=== PATIENT | female | born 1945 | race Caucasian/White ===

== ENCOUNTER 2017-12-13 14:49 | Emergency (ER) | payer MEDICARE, OTHER, SELFPAY ==
[2017-12-13 14:50] VITALS: BP 137/95; PULSE 97; RESP 16; TEMP 36.3; O2SAT 96; BMI 20.1
--- NOTE | 2017-12-13 15:18 | CT_ITS ---
STUDY: CT ABDOMEN AND PELVIS WITHOUT CONTRAST REASON FOR EXAM: Female, 72 years old. Left flank pain and colostomy. RADIATION DOSAGE (If Supplied By Facility): CTDIvol = ( 9.16 ) mGy, DLP = ( 362.44 ) mGycm TECHNIQUE: Transaxial images were obtained from the dome of the diaphragm to the symphysis pubis without oral contrast, and without intravenous contrast. Sagittal and coronal images were reconstructed. Individualized dose optimization techniques were used for this CT. COMPARISON: September 18, 2017 FINDINGS: The visualized lung bases are unremarkable. The visualized portions of the heart are within normal limits. Normal liver. Normal gallbladder and extrahepatic biliary system. Normal spleen. Normal pancreas. Normal bilateral adrenal glands. Multiple punctate nonobstructing nephroliths bilaterally. Moderate left hydronephrosis demonstrating interval progression. 3 mm ureterolith at the ureterovesicular junction on the left. Normal visualized stomach. Normal small intestine. There appear to be a anastomotic sutures along the cecum. Appendix is not identified. There is a left lower quadrant colostomy. Normal abdominal aorta. Normal inferior vena cava. Normal retroperitoneum. Normal urinary bladder. Normal abdominal wall. Normal osseous structures. CT/Abdomen/Pelvis without Cont IMPRESSION: Moderate left hydronephrosis due to a 3 mm stone at the ureterovesicular junction. Bilateral punctate nonobstructing nephroliths. Postop changes as above. Electronically Signed: Akin Mobley MD at 16:38 EST , Service support ,
--- NOTE | 2017-12-13 15:29 | ED.DCSUM_ITS ---
- ER Visit Summary Date of Service: 12/13/17 Chief Complaint: [Hematuria] History of Present Illness: The patient is a 72 F presents with hematuria that started yesterday. Patient has not had a fever. Patient denies dysuria or frequency. Patient is not on any blood thinners. Patient describes some mild left flank pain. Patient states that she has history of multiple kidney stones. Patient denies any trauma. [] Physical Examination: [HEENT-PERRLA, EOMI. Cranial nerves II through XII grossly intact. TMs clear. Mucous membranes moist. No adenopathy. Cardiovascular-regular rate and rhythm without murmur or ectopy Lungs-clear to auscultation, chest wall stable without crepitus or subcu emphysema Abdomen-normoactive bowel sounds, soft, nontender, no rebound or rigidity, no peritoneal signs.. Patient has mild CVA tenderness on the left. Extremities-intact ?4, normal range of motion, normal pulses, atraumatic] Test Results: [CBC with differential and white count 10.7, hemoglobin 14.5, hematocrit 45, platelets 231. Chemistries unremarkable. Urinalysis showed greater than 100 RBCs, negative for nitrites, negative leuk leukocyte Estrace]. CT of the flank showed a left UVJ stone measuring 3 mm with moderate hydronephrosis and hydroureter Emergency Department Course and Treatment: [None] Treatment Plan: [Jhonathan with will be able to see the patient in the office tomorrow. Patient will be started on Flomax at his request.] Disposition: [Discharged home in stable condition. Patient advised to return if increased difficulty urinating, fever, worsening pain, or condition should worsen in any way.] Impression: [Hematuria Left urolithiasis ] This note was generated with [employer] dictation software. It may contain incorrect words, spelling, and punctuation that were not noted in review of the chart prior to signing ED Disposition - Plan for ED Patient: Chief Complaint: Complaint Referrals: Adis iMreles MD [Primary Care Provider] -
[2017-12-13 15:52] LABS: Bacteria 0 SEEN /hpf (None Seen); Mucous, Urine 0 SEEN /hpf (<or=2+); White Blood Cells 0 SEEN /hpf (0-5)
[2017-12-13 16:02] LABS: Color, Urine Red (Yellow); Glucose, Dipstick Normal (Normal); Ketone-Dipstick 15 mg/dl (Negative); Leukocyte Esterase-Dipstick Negative /ul (Negative); Nitrite-Dipstick Negative (Negative); Occult Blood-Urine 150 /ul (Negative); Protein-Dipstick 500 mg/dl (Negative); Urine Bilirubin Dipstick Negative (Negative); Urine Clarity Cloudy (Clear); Urine Urobilinogen Normal (Normal)
[2017-12-13 16:19] LABS: Absolute Lymphocyte Count 3.32 X10^3/ul (0.83-4.51); Absolute Neutrophil Count 6.5 X10^3/uL (2.0-7.7); Anion Gap 11 (5-15); BUN 16 mg/dL (7-18); BUN/Creat Ratio 11.9 RATIO (10-20); Basophil# 0.01 X10^3/uL; Basophil% 0.1 % (0-1); Calcium,Total 9.7 mg/dL (8.5-10.1); Chloride 103 mmol/L (98-107); Creatinine, Serum 1.34 mg/dL (0.55-1.02); EST Glomerular Filtration Rate 41 mL/min (>60); Eosinophil# 0.29 X10^3/uL; Eosinophils% 2.7 % (0-5); Est Glom Filt Rate - Afr Amer 50 mL/min (>60); Estimated Creatinine Clearance 29.89 ml/min; Glucose 89 mg/dL (74-106); Hematocrit 45.3 % (37-47); Hemoglobin 14.5 g/dl (12.0-15.0); Lymphocyte # 3.32 X10^3/ul (4.0); Lymphocyte % 31.1 % (19-41); Mean Corpuscular Hgb 29.3 pg (27.0-32.0); Mean Corpuscular Volume 91.5 fL (81-99); Mean Platelet Vol. 9.4 fl (6.2-12.0); Monocyte# 0.57 X10^3/uL; Monocyte% 5.3 % (0-10); Neutrophil # 6.47 X10^3/uL (2.7-7.7); Neutrophil % 60.6 % (47-70); Platelet Count 231 K/mm3 (150-450); Potassium 3.2 mmol/L (3.5-5.1); RBC Distribution Width CV 13.6 % (11.6-14.6); Red Blood Count 4.95 M/mm3 (4.2-5.4); Sodium Level 137 mmol/L (136-145); White Blood Count 10.7 K/mm3 (4.4-11.0)
[2017-12-13 16:26] LABS: Red Blood Cells-Urine > 100 SEEN /hpf (0-5); Squamous Epithelial Cells - UA 0-5 SEEN /hpf (5-10)
[2017-12-13 16:36] LABS: POSITIVE COUNT NO; POSITIVE DIFFERENTIAL NO; POSITIVE MORPHOLOGY NO
--- NOTE | 2017-12-13 16:49 | ED.DEP ---
ED Disposition - Plan for ED Patient: Chief Complaint: Complaint Instructions: ED Stone Renal W Colic, ED Hematuria Prescriptions: Tamsulosin HCl [Flomax] 0.4 mg PO DAILY #7 cap.er.24h Referrals: Adis Mireles MD [Primary Care Provider] - Edmundo Gray MD [STAFF PHYSICIAN] - 1 Day
[2017-12-13 17:19] VITALS: BP 122/73; PULSE 68; RESP 17; O2SAT 94
== END 2017-12-13 17:21 | disposition home or self-care (01) ==
PROVIDERS: Emergency Provider Emergency Medicine; Family Provider Internal Medicine; PCP Internal Medicine
DX: N13.2 Hydronephrosis with renal and ureteral calculous obstruction (principal); R31.9 Hematuria, unspecified; E03.9 Hypothyroidism, unspecified; Z72.0 Tobacco use; Z79.899 Other long term (current) drug therapy; Z87.442 Personal history of urinary calculi; Z85.048 Personal history of other malignant neoplasm of rectum, rectosigmoid junction, and anus
CPT/HCPCS: 74176; 80048; 81001; 85025; 87086; 87088; 99283

== ENCOUNTER 2018-01-25 11:56 | Inpatient (IN) | payer MEDICARE, OTHER, SELFPAY ==
[2018-01-25] VITALS (15 sets, daily range): BP systolic 101–125; BP diastolic 57–75; PULSE 70–100; RESP 15–22; TEMP 36.1–37.6; O2SAT 88–94; BMI 19.9
--- NOTE | 2018-01-25 12:40 | EKG12_ITS ---
Test Reason : SOB Blood Pressure : / mmHG Vent. Rate : 084 BPM Atrial Rate : 084 BPM P-R Int : 206 ms QRS Dur : 066 ms QT Int : 352 ms P-R-T Axes : 070 -47 065 degrees QTc Int : 415 ms Normal sinus rhythm Left axis deviation Abnormal ECG Confirmed by KATLYN TERRAZAS, BAO ([id number]), magazine editor DEN ANDERSEN ([id number]) on 01/26/2018 2:26:31 PM Referred By: ANMOL Confirmed By:BAO POTTS MD
--- NOTE | 2018-01-25 12:40 | RAD_ITS ---
STUDY: X-RAY CHEST REASON FOR EXAM: Female, 72 years old. Cough, increasing shortness of breath x 3-4 days. TECHNIQUE: PA and lateral views of the chest. COMPARISON: PA and lateral chest x-ray February 02, 2015. FINDINGS: There is hyperinflation of the lungs consistent with chronic obstructive lung disease (COPD). There is borderline prominence of the perihilar interstitial markings that could reflect a degree of acute versus chronic inflammatory change or, less likely, central pulmonary venous congestion. No acute consolidating infiltrate There is no demonstrated pleural abnormality. Normal size heart. Normal mediastinum and jayashree. Normal visualized pulmonary arteries. There is mild atherosclerotic calcification of the aortic arch and descending thoracic aorta. Normal visualized thoracic spine. Normal visualized ribs, clavicles, and shoulders. There is no demonstrated abnormality of the visualized soft tissue structures of the upper abdomen. RAD/Chest PA and Lateral IMPRESSION: Hyperexpanded, consistent with COPD. Question of minor perihilar interstitial inflammatory change, but no consolidating infiltrate or pulmonary edema. Electronically Signed: Yasmany Matson MD at 14:06 EDT , Service support ,
[2018-01-25] MEDS: Ipratropium/Albuterol Sulfate 3 ML AMPUL.NEB INHALATION ×2 (12:53→19:46)
[2018-01-25] MEDS: 0.9% Normal Saline 1,000 ML 999 ML IV (12:59)
[2018-01-25] MEDS: predniSONE 20 MG Tablet 60 MG PO (12:59)
[2018-01-25 13:13] LABS: Absolute Lymphocyte Count 1.79 X10^3/ul (0.83-4.51); Absolute Neutrophil Count 7.8 X10^3/uL (2.0-7.7); Basophil# 0.01 X10^3/uL; Basophil% 0.1 % (0-1); Eosinophil# 0.09 X10^3/uL; Eosinophils% 0.9 % (0-5); Hematocrit 42.3 % (37-47); Hemoglobin 13.4 g/dl (12.0-15.0); Lymphocyte # 1.79 X10^3/ul (4.0); Mean Corp Hgb Conc 31.7 g/gl (32-36); Mean Corpuscular Hgb 29.5 pg (27.0-32.0); Mean Corpuscular Volume 93.2 fL (81-99); Mean Platelet Vol. 9.2 fl (6.2-12.0); Monocyte# 0.86 X10^3/uL; Monocyte% 8.2 % (0-10); Neutrophil # 7.78 X10^3/uL (2.7-7.7); Neutrophil % 73.7 % (47-70); Platelet Count 189 K/mm3 (150-450); RBC Distribution Width CV 13.5 % (11.6-14.6); RBC Distribution Width SD 44.9 fl (35.1-43.9); Red Blood Count 4.54 M/mm3 (4.2-5.4); White Blood Count 10.5 K/mm3 (4.4-11.0)
[2018-01-25 13:15] LABS: POSITIVE COUNT NO; POSITIVE DIFFERENTIAL NO; POSITIVE MORPHOLOGY NO
[2018-01-25 13:29] LABS: Anion Gap 9 (5-15); BUN 13 mg/dL (7-18); BUN/Creat Ratio 12.7 RATIO (10-20); Calcium,Total 9.1 mg/dL (8.5-10.1); Chloride 104 mmol/L (98-107); Creatinine, Serum 1.02 mg/dL (0.55-1.02); EST Glomerular Filtration Rate 57 mL/min (>60); Est Glom Filt Rate - Afr Amer 68 mL/min (>60); Estimated Creatinine Clearance 38.91 ml/min; Glucose 96 mg/dL (74-106); Potassium 3.3 mmol/L (3.5-5.1); Sodium Level 138 mmol/L (136-145)
--- NOTE | 2018-01-25 15:00 | ED.VISSUMM ---
- ER Visit Summary Date of Service: 01/25/18 Chief Complaint: Cough and shortness of breath History of Present Illness: The patient is a [address] Mireles. She reports she has a cough began 3 days ago. Is productive clear sputum without blood. Reports that she has had severe shortness of breath. She increased with coughing. She reports that she ran out of her inhaler long time ago. She has had a fever to 100.6?. No chills, sore throat, chest pain, or other complaints. Physical Examination: Vitals: Stable. Afebrile. General: Well-nourished and well-developed. Head: Normocephalic atraumatic. Neck: Supple, no lymphadenopathy. No JVD. Nontender. Cardiovascular: Regular rate and rhythm. No murmurs. Respiratory: No respiratory distress. Moderate wheezing bilaterally with decreased air movement. Abdominal: Soft, nontender, nondistended, normal bowel sounds. No guarding, rebound, or peritoneal signs. Back: Nontender. Extremities: Nontender, no edema. Skin: Normal color, no rash. Neurologic: Alert and oriented ?3. Cranial nerves II through XII are intact. Normal strength and sensation. Psych: Normal affect. Test Results: Chest x-ray shows chronic changes and question minor perihilar interstitial inflammation. EKG is sinus at 84 with low voltage. However this is unchanged from 2015. CBC is marked for segment neutrophils 74 lymphs at 17. Chem-7 with potassium 3.3. Emergency Department Course and Treatment: History of albuterol Atrovent aerosols. She is given prednisone p.o. On repeat exam she is 88% on room air at rest. She is 85 with ambulation. Treatment Plan: The patient was discussed with Dr. Tenorio. She is given Zithromax IV. She will be admitted the hospital for further wish and treatment. Disposition: Admitted in improved condition. Impression: 1. COPD exacerbation. 2. Hypoxia. This note was generated with [employer] dictation software. It may contain incorrect words, spelling, and punctuation that were not noted in review of the chart prior to signing ED Disposition - Plan for ED Patient: Chief Complaint: Shortness of Breath Referrals: Adis Mireles MD [Primary Care Provider] -
--- NOTE | 2018-01-25 15:10 | NURSING ---
DR DIOP IN ER
--- NOTE | 2018-01-25 15:11 | NURSING ---
PCU ACUTE COPD EXAC PAINTSIL
--- NOTE | 2018-01-25 15:34 | PCM.HP.STD ---
<Dontae Mcgarry - Last Filed: 01/25/18 15:34> Problem List (1) COPD exacerbation Status: Acute (2) Hypothyroidism Status: Chronic (3) Anxiety Status: Chronic (4) Depression Status: Chronic (5) Nicotine abuse Status: Chronic (6) History of rectal cancer Status: Chronic History of Present Illness Date of Admission: 01/25/18 Chief Complaint: SOB The patient is a 72 year old F with a hx of COPD and nicotine abuse, as well as rectal CA in remission since 2011 s/p colectomy with colostomy, hypothyroidism, and anxiety/depression, who presented to the ER today for SOB. She has been feeling ill for four days which began with a cough. Today she was more SOB and presented to urgent care and was found to have pulse ox in the 80s and was given a breathing treatment and sent to the ER. She does have COPD which is treated by her PCP. She has not been compliant with home inhaler therapy and has not filled her script in a while and has never had PFTs. She also continues to smoke. Her grandson is sick with a URI and she also complains or a runny nose and right sided CP with coughing. Her SOB has improved with aerosol treatments and she is saturating well on 2 liters per minute o2 via NC. [] Past Medical History Past Medical History (Chronic Problems): Chronic Problems Hypothyroidism (Chronic) Anxiety (Chronic) Depression (Chronic) Nicotine abuse (Chronic) Chronic bronchitis (Chronic) Hydronephrosis, right (Chronic) History of rectal cancer (Chronic) Allergies ciprofloxacin [From Cipro] Allergy (Verified 01/25/18 12:00) Rash ciprofloxacin HCl [From Cipro] Allergy (Verified 01/25/18 12:00) Rash Penicillins Allergy (Verified 01/25/18 12:00) Hives codeine Adverse Reaction (Verified 01/25/18 12:00) Other makes her feel weird NSAIDS (Non-Steroidal Anti-Inflamma Adverse Reaction (Verified 01/25/18 12:00) Other kidney damage r/t long-term usage advised not to use MAGNESIUM CITRATE Adverse Reaction (Uncoded 01/25/18 12:00) Nausea Home Medications: Ambulatory Orders Medication Instructions Recorded Citalopram [Celexa] 40 mg PO DAILY 02/02/15 Levothyroxine [Synthroid] 75 mcg PO DAILY 02/02/15 Ergocalciferol [Vitamin D] 50,000 unit PO QODAY 06/02/15 Gabapentin [Neurontin] 100 mg PO BID 01/25/18 Surgical History: cholecystectomy, tonsillectomy, - - bowel resection, colostomy Psychiatric History: No pertinent psych hx TRAFFIC MAINTENANCE OFFICER History: No pertinent TRAFFIC MAINTENANCE OFFICER history Lives: Alone Smoking Status: Current every day smoker Tobacco Use: Cigarettes Alcohol: None Drugs: None - *Family History Paternal History Items: Heart Disease Maternal History Items: COPD, Heart Disease Sibling History Items: Diabetes Review of Systems Constitutional: Denies: Chills, Fever, Weight Change HEENT: Denies: Head Aches, Sinus Congestion, Sinus Drainage Cardiovascular: Denies: Chest Pain, Palpitations Respiratory: Reports: Cough, Shortness of Breath, Shortness of breath at rest, Wheezing. Denies: Sputum production Gastrointestinal: Denies: Abdominal Pain, Nausea, Vomiting Genitourinary: Denies: Dysuria Musculoskeletal: Denies: Joint Pain, Joint Tenderness Skin: Denies: Rash, Wounds Neurological: Denies: Numbness, Tingling, Focal weakness Psychiatric: Denies: Anxiety, Depression, Homicidal Ideations, Suicidal Ideations Hematologic/ Lymphatic: Denies: Easy Bruising, Easy Bleeding VTE Information - Inpt Only VTE Present on Admission: No VTE Mechan Device Prophylaxis: SCD's VTE Pharm Prophylaxis ordered?: Yes Patient Problems: Active and Suspected Problems COPD exacerbation (Acute) - Physical Exam General: Alert, Oriented x3, Cooperative HEENT: Atraumatic, PERRLA, EOMI, Normocephalic Neck: Supple, No JVD, Negative Carotid Bruits Lungs: Clear to auscultation, Normal air movement Cardiovascular: Regular rate, No murmurs Abdomen: Bowel Sounds Present, Soft, Non Tender Extremities: No edema, Capillary Refill Less than 3 Seconds Skin: No rashes, No breakdown Musculoskeletal: No Tenderness to Palpation of Joints or Extremities Neurological: Cranial nerves II-XII grossly intact Psych/Mental Status: Normal Affect, Appropriate Vital Signs Temp Pulse Resp BP Pulse Ox 98.6 F 89 15 116/73 92 01/25/18 11:57 01/25/18 15:02 01/25/18 15:02 01/25/18 15:02 01/25/18 15:02 Assessment/Plan Active and Suspected Problems COPD exacerbation (Acute) 1. Acute hypoxic respiratory insufficiency 2/2 acute COPD exacerbation - Pt with cough and SOB over last 4 days. Hypoxic in ER at 88%. Improved with 2 lpm o2. CXR neg, afebrile, no WBC elevation. Will provide solumedrol, azithromycin, aerosol thearpy, incentive spirometer. Check respiratory panel. 2. Hypothyroidism - continue synthroid 3. Hx Rectal CA in remission x 12 years - s/p colectomy and colostomy. 4. Nicotine abuse - patch 5. Hypokalemia - replete 6. Anxiety/Depression - continue home meds. DVT ppx: lovenox, SCDs DC planning: home when stable. This patient was seen by Dontae Mcgarry PA-C under the supervision of Doctor John Paul. <Rosaura Coker - Last Filed: 01/25/18 17:59> History of Present Illness The patient is a 72 year old F [] Past Medical History Allergies ciprofloxacin [From Cipro] Allergy (Verified 01/25/18 12:00) Rash ciprofloxacin HCl [From Cipro] Allergy (Verified 01/25/18 12:00) Rash Penicillins Allergy (Verified 01/25/18 12:00) Hives codeine Adverse Reaction (Verified 01/25/18 15:59) makes her feel weird makes her feel weird NSAIDS (Non-Steroidal Anti-Inflamma Adverse Reaction (Verified 01/25/18 15:59) kidney damage r/t long-term usage advised not to use kidney damage r/t long-term usage advised not to use MAGNESIUM CITRATE Adverse Reaction (Uncoded 01/25/18 12:00) Nausea - Physical Exam Vital Signs Temp Pulse Resp BP Pulse Ox 99.7 F H 82 20 H 112/72 94 01/25/18 15:56 01/25/18 16:55 01/25/18 15:56 01/25/18 15:57 01/25/18 15:56 Oxygen Flow Rate (L/min) 2 Oxygen Delivery Method Nasal Cannula Weight: 49.487 kg Body Mass Index (BMI) 19.9 Intake and Output for Last 24 Hours 01/23/18 01/24/18 01/25/18 23:59 23:59 23:59 Output Total 25 / 25 Balance -25 / -25 Assessment/Plan And was seen and examined with physician grants and contracts assistant Dontae Hudock. Patient has history of COPD but not on oxygen. Other sick contact being her grandson and started having shortness of breath ongoing for the past 4 days. Denies any fever or chills but has some mild sore throat and nasal congestion. Came in because she had some chest discomfort that goes all the way to the back as well as shortness of breath. Patient's vitals were significant for hypoxia of 88% on room air Chest x-ray was negative for any infiltrate. Clinical exam was negative for wheezes. Patient has had 2 previous treatments since being here. Will admit patient for acute COPD exacerbation, IV fluids, breathing treatment, IV steroids, IV antibiotics would reevaluate tomorrow Code Visit Inpatient E&M: 32099 Init Hosp L2
[2018-01-25] MEDS: Gabapentin 100 MG Capsule PO (17:03)
[2018-01-25] MEDS: 0.9% Normal Saline 1,000 ML 75 ML IV (17:04)
[2018-01-25] MEDS: guaiFENesin 1,200 MG Tablet 1200 MG PO (22:49)
[2018-01-26] VITALS (18 sets, daily range): BP systolic 96–113; BP diastolic 47–68; PULSE 64–112; RESP 16–21; TEMP 36–36.7; O2SAT 91–94
[2018-01-26] MEDS: 0.9% Normal Saline 1,000 ML 75 ML IV (03:53)
[2018-01-26 06:08] LABS: Hematocrit 36.5 % (37-47); Hemoglobin 11.7 g/dl (12.0-15.0); Mean Corp Hgb Conc 32.1 g/gl (32-36); Mean Corpuscular Hgb 29.8 pg (27.0-32.0); Mean Corpuscular Volume 93.1 fL (81-99); Mean Platelet Vol. 9.5 fl (6.2-12.0); Platelet Count 175 K/mm3 (150-450); RBC Distribution Width CV 13.2 % (11.6-14.6); Red Blood Count 3.92 M/mm3 (4.2-5.4); White Blood Count 8.1 K/mm3 (4.4-11.0)
[2018-01-26 06:11] LABS: Scan Indicated on CBC? Y/N NO
[2018-01-26] MEDS: Levothyroxine 75 MCG Tablet PO (06:13)
[2018-01-26 06:31] LABS: Anion Gap 7 (5-15); BUN 13 mg/dL (7-18); BUN/Creat Ratio 14.7 RATIO (10-20); Calcium,Total 8.3 mg/dL (8.5-10.1); Chloride 112 mmol/L (98-107); Creatinine, Serum 0.89 mg/dL (0.55-1.02); EST Glomerular Filtration Rate 67 mL/min (>60); Est Glom Filt Rate - Afr Amer 81 mL/min (>60); Estimated Creatinine Clearance 44.64 ml/min; Glucose 136 mg/dL (74-106); Magnesium 1.9 mg/dL (1.6-2.6); Potassium 4.6 mmol/L (3.5-5.1); Sodium Level 141 mmol/L (136-145)
[2018-01-26] MEDS: Gabapentin 100 MG Capsule PO ×2 (08:04→17:36)
--- NOTE | 2018-01-26 08:47 | RAD_ITS ---
STUDY: X-RAY CHEST REASON FOR EXAM: Female, 72 years old. Chest pain. TECHNIQUE: PA and lateral views of the chest. COMPARISON: PA and lateral chest x-ray on January 25, 2018. FINDINGS: There is hyperinflation of the lungs, although to a lesser degree than yesterday's exam, consistent with chronic obstructive lung disease (COPD). The perihilar markings are less prominent today. No acute infiltrate. There is no demonstrated pleural abnormality. Normal size heart. Normal mediastinum and jayashree. Normal visualized pulmonary arteries. There is stable atherosclerotic calcification of the aortic arch. Normal visualized thoracic spine. Normal visualized ribs, clavicles, and shoulders. There is no demonstrated abnormality of the visualized soft tissue structures of the upper abdomen. RAD/Chest PA and Lateral IMPRESSION: Hyperexpanded, consistent with COPD. No acute infiltrate or CHF. Electronically Signed: Yasmany Matson MD at 13:17 EDT , Service support ,
[2018-01-26] MEDS: Ipratropium/Albuterol Sulfate 3 ML AMPUL.NEB INHALATION ×2 (09:37→13:04)
[2018-01-26] MEDS: guaiFENesin 1,200 MG Tablet 1200 MG PO ×2 (10:00→21:55)
[2018-01-26] MEDS: Citalopram 40 MG TABLET PO (10:01)
[2018-01-26] MEDS: Enoxaparin 40 MG/0.4 ML Syringe SC (10:02)
--- NOTE | 2018-01-26 12:25 | PCM.PROGNOTE ---
<Dontae Mcgarry - Last Filed: 01/26/18 12:25> Patient Problems: Active and Suspected Problems COPD exacerbation (Acute) Subjective: The patient continues to be SOB at rest and with exertion. Her O2 requirement has increased since last night from 2 to 4 lpm. She does not use O2 at home. She denies nicotine withdrawal/cravings. She has no fever or chills. She does have a productive cough. - Physical Exam General: Alert, Oriented x3, Cooperative HEENT: Atraumatic, PERRLA, EOMI, Normocephalic Neck: Supple, No JVD, Negative Carotid Bruits Lungs: Clear to auscultation, Normal air movement, Wheezes - end expiratory at bases. Cardiovascular: Regular rate, No murmurs Abdomen: Bowel Sounds Present, Soft, Non Tender Extremities: No edema, Capillary Refill Less than 3 Seconds Skin: No rashes, No breakdown Musculoskeletal: No Tenderness to Palpation of Joints or Extremities Neurological: Cranial nerves II-XII grossly intact Psych/Mental Status: Normal Affect, Appropriate, Alert and oriented to time, place, person, mood and affect Vital Signs Temp Pulse Resp BP Pulse Ox 97.3 F L 89 20 H 104/57 L 94 01/26/18 07:59 01/26/18 11:07 01/26/18 09:37 01/26/18 07:59 01/26/18 07:59 Oxygen Flow Rate (L/min) 4 Oxygen Delivery Method Nasal Cannula Weight: 49.487 kg Body Mass Index (BMI) 19.9 Intake and Output for Last 24 Hours 01/24/18 01/25/18 01/26/18 23:59 23:59 23:59 Intake Total 400 / 400 715 / 715 Output Total 25 / 25 Balance 375 / 375 715 / 715 Microbiology Past 72 Hours 01/25/18 20:00 Respiratory Panel (PCR) - Final Mucosa - Nose Rhinovirus Laboratory Tests Past 24 Hrs 01/26/18 01/26/18 05:45 05:45 WBC 8.1 RBC 3.92 L Hgb 11.7 L Hct 36.5 L MCV 93.1 MCH 29.8 MCHC 32.1 RDW 13.2 RDW Differential 44.0 H Plt Count 175 MPV 9.5 Sodium 141 Potassium 4.6 Chloride 112 H Carbon Dioxide 22.0 Anion Gap 7 BUN 13 Creatinine 0.89 Estim Creat Clear Calc 44.64 Est GFR (MDRD) Af Amer 81 Est GFR (MDRD) Non-Af 67 BUN/Creatinine Ratio 14.7 Glucose 136 H Calcium 8.3 L Magnesium 1.9 Medical Necessity - Tobacco Use Smoking Status: Current every day smoker Tobacco Use: Cigarettes Assessment/Plan Active and Suspected Problems COPD exacerbation (Acute) 1. Acute hypoxic respiratory insufficiency 2/2 acute COPD exacerbation - increased oxygen demand overnight. Encourage out of bed and incentive spirometry. Continue aerosols and solumedrol. Respiratory panel pending. Repeat CXR today. 2. Hypothyroidism - continue synthroid 3. Hx Rectal CA in remission x 12 years - s/p colectomy and colostomy. 4. Nicotine abuse - patch 5. Hypokalemia - resolved. Mag normal. 6. Anxiety/Depression - continue home meds. DVT ppx: lovenox, SCDs DC planning: may need home O2. This patient was seen by Dontae Mcgarry PA-C under the supervision of Doctor John Paul. <Rosaura Coker - Last Filed: 01/26/18 18:07> - Physical Exam Vital Signs Temp Pulse Resp BP Pulse Ox 98.0 F 94 18 102/68 92 01/26/18 17:32 01/26/18 17:32 01/26/18 17:32 01/26/18 17:32 01/26/18 17:32 Oxygen Flow Rate (L/min) 2 Oxygen Delivery Method Nasal Cannula Weight: 49.487 kg Body Mass Index (BMI) 19.9 Intake and Output for Last 24 Hours 01/24/18 01/25/18 01/26/18 23:59 23:59 23:59 Intake Total 400 / 400 1801 / 1801 Output Total 25 / 25 Balance 375 / 375 1801 / 1801 Microbiology Past 72 Hours 01/25/18 20:00 Respiratory Panel (PCR) - Final Mucosa - Nose Rhinovirus Laboratory Tests Past 24 Hrs 01/26/18 01/26/18 05:45 05:45 WBC 8.1 RBC 3.92 L Hgb 11.7 L Hct 36.5 L MCV 93.1 MCH 29.8 MCHC 32.1 RDW 13.2 RDW Differential 44.0 H Plt Count 175 MPV 9.5 Sodium 141 Potassium 4.6 Chloride 112 H Carbon Dioxide 22.0 Anion Gap 7 BUN 13 Creatinine 0.89 Estim Creat Clear Calc 44.64 Est GFR (MDRD) Af Amer 81 Est GFR (MDRD) Non-Af 67 BUN/Creatinine Ratio 14.7 Glucose 136 H Calcium 8.3 L Magnesium 1.9 Assessment/Plan Patient was seen and examined with physician corporate law assistant, Dontae Mcgarry. I agree with his interval history, physical exam and assessment and plan. Patient remains hypoxic on 100% nonrebreather. Able to complete sentences with a mass on. Says she feels better. Will continue home on Tamiflu, azithromycin, Rocephin. Encourage use of incentive spirometer, wean off for SPO2 more than 94%. Code Visit Inpatient E&M: 67686 Subs Hosp L2
--- NOTE | 2018-01-26 13:24 | CASEMGMT ---
See [facility] Assessment Link. DC PLAN: return home. [facility] AL[facility] discussed options if Home O2 is recommended. Pt would need Home oxygen testing and she is agreeable for [facility]. Green sheet is on chart. Lynda ACE RN ACM
[2018-01-26] MEDS: 0.9% NaCl Peripheral Flush Adult/Peds IV (14:03)
[2018-01-26] MEDS: 0.9% Normal Saline 1,000 ML 50 ML IV (22:29)
[2018-01-27] VITALS (16 sets, daily range): BP systolic 104–132; BP diastolic 62–73; PULSE 65–89; RESP 16–18; TEMP 36.1–36.7; O2SAT 89–95
[2018-01-27] MEDS: Levothyroxine 75 MCG Tablet PO (05:55)
--- NOTE | 2018-01-27 08:43 | CT_ITS ---
STUDY: CT ABDOMEN AND PELVIS WITHOUT CONTRAST REASON FOR EXAM: Female, 72 years old. Bilateral flank pain RADIATION DOSAGE (If Supplied By Facility): CTDIvol = ( 6.15 ) mGy, DLP = ( 254.82 ) mGycm TECHNIQUE: Transaxial images were obtained from the dome of the diaphragm to the symphysis pubis without oral contrast, and without intravenous contrast. Sagittal and coronal images were reconstructed. Individualized dose optimization techniques were used for this CT. COMPARISON: December 13, 2017. FINDINGS: The visualized lung bases are unremarkable. The visualized portions of the heart are within normal limits. Normal liver. Nonvisualization of the gallbladder. No significant dilatation of the extrahepatic biliary system. Normal spleen. Normal pancreas. Normal bilateral adrenal glands. There are at least 10 nonobstructive stones up to 7 mm in the right kidney. There are 5-6 nonobstructive stones up to 4 mm in the left kidney. Normal visualized stomach. Normal small intestine. Fecal retention in the colon. The appendix is not visualized. Normal abdominal aorta. Normal inferior vena cava. Normal retroperitoneum. Normal urinary bladder. Stable presacral mesenteric thickening. There is a colostomy through the left anterior abdominal wall. Normal osseous structures. CT/Abdomen/Pelvis without Cont IMPRESSION: Nonobstructive calculi bilaterally of the kidneys. No hydronephrosis. Diffuse colonic fecal retention. Electronically Signed: Diogenes Astudillo DO at 15:07 EDT Tel [phone], Service support ,
--- NOTE | 2018-01-27 08:44 | PCM.PROGNOTE ---
<Dontae Mcgarry - Last Filed: 01/27/18 08:44> Patient Problems: Active and Suspected Problems COPD exacerbation (Acute) Subjective: Pt not feeling well this AM. She was up all night with multiple episodes of diarrhea. She also has some midepigastric discomfort and nausea without vomiting. She has BL flank pain this AM (Left > Right) and is worried she has a kidney stone. No dysuria, urgency, or frequency, no garcia hematuria. She follows Dr. Gray. She also does not feel her breathing has improved. She has tested + for rhinovirus, and has a sick grandson at home that she thinks she picked it up from. She is more wheezy this AM. Productive cough continues. No fever or chills. - Physical Exam General: Alert, Oriented x3, Cooperative HEENT: Atraumatic, PERRLA, EOMI, Normocephalic Neck: Supple, No JVD, Negative Carotid Bruits Lungs: Normal air movement, Wheezes Cardiovascular: Regular rate, No murmurs Abdomen: Bowel Sounds Present, Soft, Non Tender Extremities: No edema, Capillary Refill Less than 3 Seconds Skin: No rashes, No breakdown Musculoskeletal: No Tenderness to Palpation of Joints or Extremities Neurological: Cranial nerves II-XII grossly intact Psych/Mental Status: Normal Affect, Appropriate, Alert and oriented to time, place, person, mood and affect Vital Signs Temp Pulse Resp BP Pulse Ox 97.3 F L 67 18 104/67 92 01/27/18 02:30 01/27/18 07:00 01/27/18 02:30 01/27/18 02:30 01/27/18 07:30 Oxygen Flow Rate (L/min) 3 Oxygen Delivery Method Nasal Cannula Weight: 49.487 kg Body Mass Index (BMI) 19.9 Intake and Output for Last 24 Hours 01/25/18 01/26/18 01/27/18 23:59 23:59 23:59 Intake Total 400 / 400 2735 / 2735 1007 / 1007 Output Total 25 / 25 Balance 375 / 375 2735 / 2735 1007 / 1007 Microbiology Past 72 Hours 01/25/18 20:00 Respiratory Panel (PCR) - Final Mucosa - Nose Rhinovirus Medical Necessity - Tobacco Use Smoking Status: Current every day smoker Tobacco Use: Cigarettes Assessment/Plan Active and Suspected Problems COPD exacerbation (Acute) 1. Acute hypoxic respiratory insufficiency 2/2 acute COPD exacerbation -still requiring 3 liters O2 - no prior home O2. Azithromycin x 3 days. Solumedrol and duonebs. + Rhinovirus. Repeat CXR c/w COPD. Encourage incentive spirometry. 2. Diarrhea - with some abdominal discomfort, check stool for C diff. No hx C diff. 3. BL Flank pain L>R- CT abdomen. Hx multiple stones. Check UA. 4. Hypothyroidism - continue synthroid 5. Hx Rectal CA in remission x 12 years - s/p colectomy and colostomy. 6. Nicotine abuse - patch 7. Hypokalemia - resolved. Mag normal. 8. Anxiety/Depression - continue home meds. DVT ppx: lovenox, SCDs DC planning: may need home O2. This patient was seen by Dontae Mcgarry PA-C under the supervision of Doctor John Paul. <Rosaura Coker - Last Filed: 01/27/18 14:03> - Physical Exam Vital Signs Temp Pulse Resp BP Pulse Ox 97.0 F L 66 18 126/69 H 92 01/27/18 11:43 01/27/18 11:43 01/27/18 11:43 01/27/18 11:43 01/27/18 11:43 Oxygen Flow Rate (L/min) 2 Oxygen Delivery Method Nasal Cannula Weight: 49.487 kg Body Mass Index (BMI) 19.9 Intake and Output for Last 24 Hours 01/25/18 01/26/18 01/27/18 23:59 23:59 23:59 Intake Total 400 / 400 2735 / 2735 1423 / 1423 Output Total 25 / 25 Balance 375 / 375 2735 / 2735 1423 / 1423 Microbiology Past 72 Hours 01/27/18 08:41 C. difficile DNA Amplification - Final Stool 01/25/18 20:00 Respiratory Panel (PCR) - Final Mucosa - Nose Rhinovirus Laboratory Tests Past 24 Hrs 01/27/18 11:05 Urine Color Yellow Urine Clarity Clear Urine pH 6.0 Ur Specific [place] 1.015 Urine Protein 15 H Urine Glucose (UA) Normal Urine Ketones Negative Urine Occult Blood Negative Urine Nitrite Negative Urine Bilirubin Negative Urine Urobilinogen Normal Ur Leukocyte Esterase Negative Urine RBC 0 SEEN Urine WBC 0 SEEN Ur Squamous Epith Cells 0 SEEN Urine Bacteria 0 SEEN Urine Mucus 0 SEEN Assessment/Plan Patient was seen and examined, she feels unwell, was up the whole night with diarrhea, denied any fever or chills. Agree with MARK Grady's note above. Interval history and physical exam as well as assessment and plan as above. Had increased oxygen requirements, and worsening cough. Respiratory panel was positive for rhinovirus, remains in droplet isolation. Will continue on breathing treatments, wean off oxygen, check stool for enteric panel, c. diff. Code Visit Inpatient E&M: 57317 Subs Hosp L2
[2018-01-27] MEDS: Enoxaparin 40 MG/0.4 ML Syringe SC (11:36)
[2018-01-27] MEDS: guaiFENesin 1,200 MG Tablet 1200 MG PO ×2 (11:36→21:53)
[2018-01-27] MEDS: Gabapentin 100 MG Capsule PO ×2 (11:36→16:50)
[2018-01-27] MEDS: Citalopram 40 MG TABLET PO (11:39)
[2018-01-27] MEDS: Tamsulosin HCl 0.4 MG Capsule PO (11:39)
[2018-01-27 12:20] LABS: Bacteria 0 SEEN /hpf (None Seen); Mucous, Urine 0 SEEN /hpf (<or=2+); Red Blood Cells-Urine 0 SEEN /hpf (0-5); Squamous Epithelial Cells - UA 0 SEEN /hpf (5-10); White Blood Cells 0 SEEN /hpf (0-5)
[2018-01-27 12:25] LABS: Color, Urine Yellow (Yellow); Glucose, Dipstick Normal (Normal); Ketone-Dipstick Negative (Negative); Leukocyte Esterase-Dipstick Negative /ul (Negative); Nitrite-Dipstick Negative (Negative); Occult Blood-Urine Negative /ul (Negative); Protein-Dipstick 15 mg/dl (Negative); Specific Gravity, Urine 1.015 (1.002-1.030); Urine Bilirubin Dipstick Negative (Negative); Urine Clarity Clear (Clear); Urine Urobilinogen Normal (Normal)
[2018-01-27] MEDS: Ipratropium/Albuterol Sulfate 3 ML AMPUL.NEB INHALATION ×2 (14:44→19:04)
[2018-01-27] MEDS: 0.9% NaCl Peripheral Flush Adult/Peds IV (16:41)
[2018-01-28] VITALS (16 sets, daily range): BP systolic 114–126; BP diastolic 65–77; PULSE 58–92; RESP 16–20; TEMP 36.4–37.2; O2SAT 86–95
[2018-01-28] MEDS: Levothyroxine 75 MCG Tablet PO (06:15)
[2018-01-28 06:53] LABS: Anion Gap 11 (5-15); BUN 18 mg/dL (7-18); BUN/Creat Ratio 14.4 RATIO (10-20); Calcium,Total 8.8 mg/dL (8.5-10.1); Chloride 108 mmol/L (98-107); Creatinine, Serum 1.25 mg/dL (0.55-1.02); EST Glomerular Filtration Rate 45 mL/min (>60); Est Glom Filt Rate - Afr Amer 54 mL/min (>60); Estimated Creatinine Clearance 31.78 ml/min; Glucose 108 mg/dL (74-106); Potassium 3.7 mmol/L (3.5-5.1); Sodium Level 141 mmol/L (136-145)
[2018-01-28] MEDS: Citalopram 40 MG TABLET PO (08:55)
[2018-01-28] MEDS: Enoxaparin 40 MG/0.4 ML Syringe SC (08:55)
[2018-01-28] MEDS: guaiFENesin 1,200 MG Tablet 1200 MG PO ×2 (08:55→20:49)
[2018-01-28] MEDS: Tamsulosin HCl 0.4 MG Capsule PO (08:55)
[2018-01-28] MEDS: Gabapentin 100 MG Capsule PO ×2 (08:55→16:37)
[2018-01-28] MEDS: Ipratropium/Albuterol Sulfate 3 ML AMPUL.NEB INHALATION ×2 (11:45→19:15)
--- NOTE | 2018-01-28 15:28 | PCM.PROGNOTE ---
<Dontae Mcgarry - Last Filed: 01/28/18 15:28> Patient Problems: Active and Suspected Problems COPD exacerbation (Acute) Subjective: Pt was initially feeling much better today, however she ambulated in the san and became very dyspneic and needed to be put back on O2. Otherwise, no futher loose stools, no nausea or vomiting, no abdominal pain, less wheezy today, nonproductive cough. - Physical Exam General: Alert, Oriented x3, Cooperative HEENT: Atraumatic, PERRLA, EOMI, Normocephalic Neck: Supple, No JVD, Negative Carotid Bruits Lungs: Clear to auscultation, Normal air movement Cardiovascular: Regular rate, No murmurs Abdomen: Bowel Sounds Present, Soft, Non Tender Extremities: No edema, Capillary Refill Less than 3 Seconds Skin: No rashes, No breakdown Musculoskeletal: No Tenderness to Palpation of Joints or Extremities Neurological: Cranial nerves II-XII grossly intact Psych/Mental Status: Normal Affect, Appropriate, Alert and oriented to time, place, person, mood and affect Vital Signs Temp Pulse Resp BP Pulse Ox 97.5 F L 80 18 124/77 H 94 01/28/18 14:45 01/28/18 14:45 01/28/18 14:46 01/28/18 14:45 01/28/18 14:45 Oxygen Flow Rate (L/min) 2 Oxygen Delivery Method Nasal Cannula Weight: 49.487 kg Body Mass Index (BMI) 19.9 Intake and Output for Last 24 Hours 01/26/18 01/27/18 01/28/18 23:59 23:59 23:59 Intake Total 2735 / 2735 2205 / 2205 500 / 500 Output Total 100 / 100 Balance 2735 / 2735 2105 / 2105 500 / 500 Microbiology Past 72 Hours 01/27/18 08:40 Enteric Bacteriology - Final Stool 01/27/18 08:41 C. difficile DNA Amplification - Final Stool 01/25/18 20:00 Respiratory Panel (PCR) - Final Mucosa - Nose Rhinovirus Laboratory Tests Past 24 Hrs 01/28/18 06:06 Sodium 141 Potassium 3.7 Chloride 108 H Carbon Dioxide 22.0 Anion Gap 11 BUN 18 Creatinine 1.25 H Estim Creat Clear Calc 31.78 Est GFR (MDRD) Af Amer 54 L Est GFR (MDRD) Non-Af 45 L BUN/Creatinine Ratio 14.4 Glucose 108 H Calcium 8.8 Medical Necessity - Tobacco Use Smoking Status: Current every day smoker Tobacco Use: Cigarettes Assessment/Plan Active and Suspected Problems COPD exacerbation (Acute) 1. Acute hypoxic respiratory insufficiency 2/2 acute COPD exacerbation 2/2 Rhinovirus -continue current therapy. Plan to transition to PO prednisone and DC home tomorrow +/- O2. 2. Diarrhea - probiotic. stool studies neg. 3. BL Flank pain L>R- CT abdomen. Hx multiple stones. Check UA. 4. Hypothyroidism - continue synthroid 5. Hx Rectal CA in remission x 12 years - s/p colectomy and colostomy. 6. Nicotine abuse - patch 7. Hypokalemia - resolved. Mag normal. 8. Anxiety/Depression - continue home meds. DVT ppx: lovenox, SCDs DC planning: may need home O2. This patient was seen by Dontae Mcgarry PA-C under the supervision of Doctor John Paul. <Rosaura Coker - Last Filed: 01/28/18 16:42> - Physical Exam Vital Signs Temp Pulse Resp BP Pulse Ox 97.5 F L 70 18 124/77 H 94 01/28/18 14:45 01/28/18 15:15 01/28/18 14:46 01/28/18 14:45 01/28/18 14:45 Oxygen Flow Rate (L/min) 2 Oxygen Delivery Method Nasal Cannula Weight: 49.487 kg Body Mass Index (BMI) 19.9 Intake and Output for Last 24 Hours 01/26/18 01/27/18 01/28/18 23:59 23:59 23:59 Intake Total 2735 / 2735 2205 / 2205 500 / 500 Output Total 100 / 100 Balance 2735 / 2735 2105 / 2105 500 / 500 Microbiology Past 72 Hours 01/27/18 08:40 Enteric Bacteriology - Final Stool 01/27/18 08:41 C. difficile DNA Amplification - Final Stool 01/25/18 20:00 Respiratory Panel (PCR) - Final Mucosa - Nose Rhinovirus Laboratory Tests Past 24 Hrs 01/28/18 06:06 Sodium 141 Potassium 3.7 Chloride 108 H Carbon Dioxide 22.0 Anion Gap 11 BUN 18 Creatinine 1.25 H Estim Creat Clear Calc 31.78 Est GFR (MDRD) Af Amer 54 L Est GFR (MDRD) Non-Af 45 L BUN/Creatinine Ratio 14.4 Glucose 108 H Calcium 8.8 Assessment/Plan Patient was seen and examined, Agree with MARK Grady's note above. Interval history and physical exam as well as assessment and plan as above. Patient is much improved, off oxygen but dropped to 86% on room air, no wheezes heard. Patient qualified for oxygen but since she is not chronically on oxygen and this hypoxia is a first for her, will keep her one more night, continue breathing treatments, steroids, reassess for ambulatory oxygen tomorrow and discharge if improved. Code Visit Inpatient E&M: 25266 Subs Hosp L2
[2018-01-28] MEDS: Calcium Carbonate 500 MG Tablet PO (22:49)
[2018-01-29] VITALS (7 sets, daily range): BP systolic 122–137; BP diastolic 78–80; PULSE 58–74; RESP 12–18; TEMP 36.6–36.7; O2SAT 88–95
[2018-01-29] MEDS: Levothyroxine 75 MCG Tablet PO (06:06)
[2018-01-29] MEDS: 0.9% NaCl Peripheral Flush Adult/Peds IV (06:11)
[2018-01-29] MEDS: Calcium Carbonate 500 MG Tablet PO (07:26)
[2018-01-29] MEDS: Gabapentin 100 MG Capsule PO (08:08)
[2018-01-29] MEDS: Citalopram 40 MG TABLET PO (08:50)
[2018-01-29] MEDS: Tamsulosin HCl 0.4 MG Capsule PO (08:50)
[2018-01-29] MEDS: guaiFENesin 1,200 MG Tablet 1200 MG PO (08:50)
--- NOTE | 2018-01-29 09:11 | CASEMGMT ---
Patient is ambulatory both in the home and in the community. CHARLES MacielN, RN-BC, CCM
--- NOTE | 2018-01-29 09:19 | CASEMGMT ---
RICHARD ALBRIGHT reviewed patient's home oxygen qualification and noted patient did qualify for home oxygen and preferred DME oxygen provider is [facility]. RICHARD ALBRIGHT faxed and called referral to Maureen with [facility]. Per Maureen, a tank will be delivered to the patient's room this morning. Joshua Adams BSN, RN-BC, CCM
--- NOTE | 2018-01-29 10:55 | PCM.DC ---
- Discharge Diagnoses Current Active Problems: Current Active and Chronic Problems COPD exacerbation (Acute) Hypothyroidism (Chronic) Anxiety (Chronic) Depression (Chronic) Nicotine abuse (Chronic) You will use the following diet at home:: No restrictions Your food should be the consistency of: Regular Your liquids should be the consistency of: Regular/Thin Discharge Activity: Return to Normal Activity Allergies/Adverse Reactions: Allergies ciprofloxacin [From Cipro] Allergy (Verified 01/25/18 12:00) Rash ciprofloxacin HCl [From Cipro] Allergy (Verified 01/25/18 12:00) Rash Penicillins Allergy (Verified 01/25/18 12:00) Hives codeine Adverse Reaction (Verified 01/25/18 15:59) makes her feel weird makes her feel weird NSAIDS (Non-Steroidal Anti-Inflamma Adverse Reaction (Verified 01/25/18 15:59) kidney damage r/t long-term usage advised not to use kidney damage r/t long-term usage advised not to use MAGNESIUM CITRATE Adverse Reaction (Uncoded 01/25/18 12:00) Nausea Medications to take at Discharge Citalopram [Celexa] 40 mg PO DAILY 02/02/15 Levothyroxine [Synthroid] 75 mcg PO DAILY 02/02/15 Ergocalciferol [Vitamin D] 50,000 unit PO QODAY 06/02/15 Gabapentin [Neurontin] 100 mg PO BID 01/25/18 Albuterol IH (ProAir) [Proair Hfa] 1 puff INHALATION Q4H PRN PRN #1 inhaler 01/29/18 Prednisone 10 mg PO UD #30 tab 01/29/18 The following prescriptions were given: Albuterol IH (ProAir) [Proair Hfa] 1 puff INHALATION Q4H PRN PRN #1 inhaler PRN Reason: Sob &/Or Wheezing Prednisone 10 mg PO UD #30 tab Primary Care Physician: Adis Mireles MD [Primary Care Provider] - Please follow up with your Primary Care Physician in: 1 week Proposed Discharge Date: 01/29/18
--- NOTE | 2018-01-29 14:26 | PCM.DC.SUM ---
<Dontae Mcgarry - Last Filed: 01/29/18 14:26> Discharge Date and Diagnosis Date of Admission: 01/25/18 Date of Discharge: 01/29/18 - Primary Discharge Diagnosis Acute COPD exacerbation 2/2 Acute rhinovirus bronchitis Acute hypoxic respiratory failure Hypothyroidism Hx Rectal CA in remission x 12 years s/p colectomy and colostomy Nicotine abuse Anxiety and depression Hypokalemia - Secondary Discharge Diagnosis Chronic Problems Hypothyroidism (Chronic) Anxiety (Chronic) Depression (Chronic) Nicotine abuse (Chronic) Chronic bronchitis (Chronic) Hydronephrosis, right (Chronic) History of rectal cancer (Chronic) Hospital Course and Treatment Imaging Results: RAD/Chest PA and Lateral IMPRESSION: Hyperexpanded, consistent with COPD. Question of minor perihilar interstitial inflammatory change, but no consolidating infiltrate or pulmonary edema. RAD/Chest PA and Lateral IMPRESSION: Hyperexpanded, consistent with COPD. No acute infiltrate or CHF. CT/Abdomen/Pelvis without Cont IMPRESSION: Nonobstructive calculi bilaterally of the kidneys. No hydronephrosis. Diffuse colonic fecal retention. Operations: None Procedures: None Summary of Care Provided: Physical exam on day of discharge: General: Resting comfortably NAD Psych: A/Ox3 normal affect HEENT: PEARRLA AT NC Neck: Supple NT CV: RRR no m/t/r/g/h Resp: CTA Abd: [id number] Soft NT no guarding or rigidity Ext: DP2+= no edema Skin: W/D normal turgor Lymph/Heme: No active bleeding or adenopathy Neuro: CN2-12 intact Hospital course: The patient is a 72 year old F who presented to the emergency room with shortness of breath. She has a history of COPD and continues to smoke. She also has a history of colon cancer status post colectomy 12 years ago and colostomy. She is very wheezy but initially did not require oxygen supplementation. She was admitted and placed on steroids and aerosol treatments. Respiratory panel is ordered. Her breathing became worse overnight and she required oxygen up to 4 L and was felt to have acute hypoxic respiratory failure. Respiratory panel came back positive for rhinovirus. Repeat chest x-ray was done which neither demonstrated any infiltrate or CHF. She developed some diarrhea and bilateral flank pain. We check stool for C. difficile which was negative. A CAT scan of the abdomen was done which showed some stool and some nonobstructing stones in her kidneys. The symptoms improved with supportive care. She is able to be weaned off oxygen however on ambulation she still required oxygen as he desaturated into the 80s. We arrange for her to have home oxygen, she was placed on an albuterol inhaler and Symbicort for outpatient therapy, she is advised to follow-up with pulmonology and her PCP, she was discharged home in stable condition. This patient was seen by Dontae Mcgarry PA-C under the supervision of Doctor Kerr. [] Discharge Diet: No Restrictions Discharge Activity: Return to Normal Activity Home Medications: Medications to take at Discharge Citalopram [Celexa] 40 mg PO DAILY 02/02/15 Levothyroxine [Synthroid] 75 mcg PO DAILY 02/02/15 Ergocalciferol [Vitamin D] 50,000 unit PO QODAY 06/02/15 Gabapentin [Neurontin] 100 mg PO BID 01/25/18 Albuterol IH (ProAir) [Proair Hfa] 1 puff INHALATION Q4H PRN PRN #1 inhaler 01/29/18 Budesonide/Formoterol 160/4.5 [Symbicort 160/4.5 Mcg Inhaler (SP)] 2 puff INHALATION BID #1 inhaler 01/29/18 Prednisone 10 mg PO UD #30 tab 01/29/18 Following Prescrptions Were Given to Patient: Albuterol IH (ProAir) [Proair Hfa] 1 puff INHALATION Q4H PRN PRN #1 inhaler PRN Reason: Sob &/Or Wheezing Budesonide/Formoterol 160/4.5 [Symbicort 160/4.5 Mcg Inhaler (SP)] 2 puff INHALATION BID #1 inhaler Prednisone 10 mg PO UD #30 tab Primary Care Physician: Adis Mireles MD [Primary Care Provider] - Please follow up with your Primary Care Physician in: 1 week Please Follow Up With: Diane Pryor NP-C Please Follow Up With: Mayco Santos DO When: 2 weeks Disposition: Home Minutes spent on discharge:: 40 Patient Condition:: Stable Medical Necessity - Tobacco Use Smoking Status: Current every day smoker Tobacco Use: Cigarettes Meaningful Use Info Meaningful Use Diagnoses (Choose all that apply): None applicable <Willie Kerr - Last Filed: 01/29/18 18:14> Discharge Date and Diagnosis - Secondary Discharge Diagnosis Chronic Problems Hypothyroidism (Chronic) Anxiety (Chronic) Depression (Chronic) Nicotine abuse (Chronic) Chronic bronchitis (Chronic) Hydronephrosis, right (Chronic) History of rectal cancer (Chronic) Hospital Course and Treatment Summary of Care Provided: This patient was seen in conjunction with Dontae FLORES. I have independently interviewed and examined the patient and reviewed pertinent history, examination findings, laboratory and plan of management. I have reviewed the note and agree with the documented findings with the few additional points. In brief, patient is admitted for acute hypoxic respiratory failure secondary to COPD exacerbation; probably exacerbated by acute viral bronchitis due to rhinovirus. I have discussed my assessment with Dontae FLORES and orders have been reviewed. [] Total time spent, exact 32 minutes on discharge meds reconciliation, examination, review of imaging and blood test and discussion with the patient on follow-up instructions. Code Visit Inpatient E&M: 40782 Disch Hosp
--- NOTE | 2018-01-29 14:33 | DS.PCM_ITS ---
<Dontae Mcgarry - Last Filed: 01/29/18 14:26> Discharge Date and Diagnosis Date of Admission: 01/25/18 Date of Discharge: 01/29/18 - Primary Discharge Diagnosis Acute COPD exacerbation 2/2 Acute rhinovirus bronchitis Acute hypoxic respiratory failure Hypothyroidism Hx Rectal CA in remission x 12 years s/p colectomy and colostomy Nicotine abuse Anxiety and depression Hypokalemia - Secondary Discharge Diagnosis Chronic Problems Hypothyroidism (Chronic) Anxiety (Chronic) Depression (Chronic) Nicotine abuse (Chronic) Chronic bronchitis (Chronic) Hydronephrosis, right (Chronic) History of rectal cancer (Chronic) Hospital Course and Treatment Imaging Results: RAD/Chest PA and Lateral IMPRESSION: Hyperexpanded, consistent with COPD. Question of minor perihilar interstitial inflammatory change, but no consolidating infiltrate or pulmonary edema. RAD/Chest PA and Lateral IMPRESSION: Hyperexpanded, consistent with COPD. No acute infiltrate or CHF. CT/Abdomen/Pelvis without Cont IMPRESSION: Nonobstructive calculi bilaterally of the kidneys. No hydronephrosis. Diffuse colonic fecal retention. Operations: None Procedures: None Summary of Care Provided: Physical exam on day of discharge: General: Resting comfortably NAD Psych: A/Ox3 normal affect HEENT: PEARRLA AT NC Neck: Supple NT CV: RRR no m/t/r/g/h Resp: CTA Abd: [id number] Soft NT no guarding or rigidity Ext: DP2+= no edema Skin: W/D normal turgor Lymph/Heme: No active bleeding or adenopathy Neuro: CN2-12 intact Hospital course: The patient is a 72 year old F who presented to the emergency room with shortness of breath. She has a history of COPD and continues to smoke. She also has a history of colon cancer status post colectomy 12 years ago and colostomy. She is very wheezy but initially did not require oxygen supplementation. She was admitted and placed on steroids and aerosol treatments. Respiratory panel is ordered. Her breathing became worse overnight and she required oxygen up to 4 L and was felt to have acute hypoxic respiratory failure. Respiratory panel came back positive for rhinovirus. Repeat chest x-ray was done which neither demonstrated any infiltrate or CHF. She developed some diarrhea and bilateral flank pain. We check stool for C. difficile which was negative. A CAT scan of the abdomen was done which showed some stool and some nonobstructing stones in her kidneys. The symptoms improved with supportive care. She is able to be weaned off oxygen however on ambulation she still required oxygen as he desaturated into the 80s. We arrange for her to have home oxygen, she was placed on an albuterol inhaler and Symbicort for outpatient therapy, she is advised to follow-up with pulmonology and her PCP, she was discharged home in stable condition. This patient was seen by Dontae Mcgarry PA-C under the supervision of Doctor Kerr. [] Discharge Diet: No Restrictions Discharge Activity: Return to Normal Activity Home Medications: Medications to take at Discharge Citalopram [Celexa] 40 mg PO DAILY 02/02/15 Levothyroxine [Synthroid] 75 mcg PO DAILY 02/02/15 Ergocalciferol [Vitamin D] 50,000 unit PO QODAY 06/02/15 Gabapentin [Neurontin] 100 mg PO BID 01/25/18 Albuterol IH (ProAir) [Proair Hfa] 1 puff INHALATION Q4H PRN PRN #1 inhaler Budesonide/Formoterol 160/4.5 [Symbicort 160/4.5 Mcg Inhaler (SP)] 2 puff INHALATION BID #1 inhaler 01/29/18 Prednisone 10 mg PO UD #30 tab 01/29/18 Following Prescrptions Were Given to Patient: Albuterol IH (ProAir) [Proair Hfa] 1 puff INHALATION Q4H PRN PRN #1 inhaler PRN Reason: Sob &/Or Wheezing Budesonide/Formoterol 160/4.5 [Symbicort 160/4.5 Mcg Inhaler (SP)] 2 puff INHALATION BID #1 inhaler Prednisone 10 mg PO UD #30 tab Primary Care Physician: Adis Mireles MD [Primary Care Provider] - Please follow up with your Primary Care Physician in: 1 week Please Follow Up With: Diane Pryor NP-C Please Follow Up With: Mayco Santos DO When: 2 weeks Disposition: Home Minutes spent on discharge:: 40 Patient Condition:: Stable Medical Necessity - Tobacco Use Smoking Status: Current every day smoker Tobacco Use: Cigarettes Meaningful Use Info Meaningful Use Diagnoses (Choose all that apply): None applicable <Willie Kerr - Last Filed: 01/29/18 18:14> Discharge Date and Diagnosis - Secondary Discharge Diagnosis Chronic Problems Hypothyroidism (Chronic) Anxiety (Chronic) Depression (Chronic) Nicotine abuse (Chronic) Chronic bronchitis (Chronic) Hydronephrosis, right (Chronic) History of rectal cancer (Chronic) Hospital Course and Treatment Summary of Care Provided: This patient was seen in conjunction with Dontae FLORES. I have independently interviewed and examined the patient and reviewed pertinent history, examination findings, laboratory and plan of management. I have reviewed the note and agree with the documented findings with the few additional points. In brief, patient is admitted for acute hypoxic respiratory failure secondary to COPD exacerbation; probably exacerbated by acute viral bronchitis due to rhinovirus. I have discussed my assessment with Dontae FLORES and orders have been reviewed. [] Total time spent, exact 32 minutes on discharge meds reconciliation, examination , review of imaging and blood test and discussion with the patient on follow-up instructions. Code Visit Inpatient E&M: [id number] Disch Hosp
== END 2018-01-29 13:38 | disposition home or self-care (01) | DRG 190 ==
LOC: ED 13:36 → PCU 15:26
PROVIDERS: Physician Assistant; Admitting Provider Internal Medicine; Emergency Provider Emergency Medicine; Family Provider Internal Medicine; PCP Internal Medicine; Visit Provider Internal Medicine
DX: J44.0 Chronic obstructive pulmonary disease with (acute) lower respiratory infection (principal); J96.01 Acute respiratory failure with hypoxia; J20.6 Acute bronchitis due to rhinovirus; J44.1 Chronic obstructive pulmonary disease with (acute) exacerbation; E87.6 Hypokalemia; E03.9 Hypothyroidism, unspecified; F17.210 Nicotine dependence, cigarettes, uncomplicated; F41.9 Anxiety disorder, unspecified; F32.9 Major depressive disorder, single episode, unspecified; Z93.3 Colostomy status; Z90.49 Acquired absence of other specified parts of digestive tract; Z85.048 Personal history of other malignant neoplasm of rectum, rectosigmoid junction, and anus
CPT/HCPCS: 36415; 71046; 74150; 74176; 80048; 81001; 83735; 85025; 85027; 87493; 87506; 87633; 93005; 94640; 97802; 99283; 99406; J7030; A4216

== ENCOUNTER → 2018-02-01 09:08 | Outpatient (CLI) | payer MEDICARE, OTHER, SELFPAY ==
[2018-02-01 10:56] LABS: Anion Gap 9 (5-15); BUN 18 mg/dL (7-18); BUN/Creat Ratio 16.2 RATIO (10-20); Calcium,Total 8.4 mg/dL (8.5-10.1); Chloride 107 mmol/L (98-107); Creatinine, Serum 1.11 mg/dL (0.55-1.02); EST Glomerular Filtration Rate 51 mL/min (>60); Est Glom Filt Rate - Afr Amer 62 mL/min (>60); Glucose 94 mg/dL (74-106); Potassium 3.6 mmol/L (3.5-5.1); Sodium Level 140 mmol/L (136-145)
== END ==
PROVIDERS: Family Provider Internal Medicine; PCP Internal Medicine; Visit Provider Physician Assistant
DX: R79.89 Other specified abnormal findings of blood chemistry (principal)
CPT/HCPCS: 36415; 80048

== ENCOUNTER 2018-02-03 09:01 | Observation (INO) | payer MEDICARE, OTHER, SELFPAY ==
[2018-02-03] VITALS (14 sets, daily range): BP systolic 94–146; BP diastolic 66–90; PULSE 67–89; RESP 10–18; TEMP 36.2–36.8; O2SAT 95–97; BMI 19.0; BMI 19.6
--- NOTE | 2018-02-03 09:14 | CT_ITS ---
STUDY: CT BRAIN WITHOUT CONTRAST REASON FOR EXAM: Female, 72 years old. Confusion and trouble breathing RADIATION DOSAGE (If Supplied By Facility): CTDIvol = ( 44.99 ) mGy, DLP = ( 745.49 ) mGycm TECHNIQUE: Transaxial CT imaging of the brain was performed without administration of intravenous contrast material. Individualized dose optimization techniques were used for this CT. COMPARISON: None. FINDINGS: No evidence for shift of midline structures, mass effect or compression of ventricles noted. No acute intra or extra-axial hemorrhage is seen. No abnormal intracranial fluid collections identified. The basal cisterns are patent. Posterior fossa structures demonstrate no discrete mass. Scattered foci of of low-attenuation in the periventricular and subcortical white matter noted which are nonspecific in imaging appearance however likely related with chronic small vessel disease. Bilateral basal ganglia mineralization. Partial opacification of the right-sided mastoid air cells.. Mucosal thickening of the sphenoid sinus as well as the ethmoid vessels. IMPRESSION: No evidence for acute intracranial hemorrhage, mass effect or acute large territory infarcts. Chronic small vessel disease. Electronically Signed: Jovan Loya, at 11:01 EDT Tel , Service support , CT/Brain/Head without Contrast
--- NOTE | 2018-02-03 09:14 | EKG12_ITS ---
Test Reason : DYSRHYTHMIA Blood Pressure : / mmHG Vent. Rate : 061 BPM Atrial Rate : 061 BPM P-R Int : 182 ms QRS Dur : 074 ms QT Int : 402 ms P-R-T Axes : 078 038 076 degrees QTc Int : 404 ms Normal sinus rhythm Normal ECG Confirmed by KATLYN TERRAZAS, BAO ([id number]), map editor DEN ANDERSEN ([id number]) on 02/05/2018 1:45:07 PM Referred By: Dontae Mcgarry Confirmed By:BAO POTTS MD
[2018-02-03 09:55] LABS: Absolute Lymphocyte Count 1.77 X10^3/ul (0.83-4.51); Absolute Neutrophil Count 9.2 X10^3/uL (2.0-7.7); Basophil# 0.01 X10^3/uL; Basophil% 0.1 % (0-1); Eosinophil# 0.08 X10^3/uL; Eosinophils% 0.7 % (0-5); Hematocrit 45.1 % (37-47); Hemoglobin 14.2 g/dl (12.0-15.0); Lymphocyte # 1.77 X10^3/ul (4.0); Mean Corp Hgb Conc 31.5 g/gl (32-36); Mean Corpuscular Hgb 29.1 pg (27.0-32.0); Mean Corpuscular Volume 92.4 fL (81-99); Mean Platelet Vol. 8.3 fl (6.2-12.0); Monocyte# 0.67 X10^3/uL; Monocyte% 5.7 % (0-10); Neutrophil # 9.18 X10^3/uL (2.7-7.7); Neutrophil % 77.9 % (47-70); Platelet Count 232 K/mm3 (150-450); RBC Distribution Width CV 14.1 % (11.6-14.6); RBC Distribution Width SD 47.2 fl (35.1-43.9); Red Blood Count 4.88 M/mm3 (4.2-5.4); White Blood Count 11.8 K/mm3 (4.4-11.0)
[2018-02-03 09:58] LABS: POSITIVE COUNT NO; POSITIVE DIFFERENTIAL NO; POSITIVE MORPHOLOGY NO
[2018-02-03 10:01] LABS: Bedside Glucose 92 mg/dL (70-110)
[2018-02-03 10:06] LABS: Anion Gap 9 (5-15); BUN 19 mg/dL (7-18); BUN/Creat Ratio 16.8 RATIO (10-20); Calcium,Total 8.4 mg/dL (8.5-10.1); Chloride 108 mmol/L (98-107); Creatinine, Serum 1.13 mg/dL (0.55-1.02); EST Glomerular Filtration Rate 50 mL/min (>60); Est Glom Filt Rate - Afr Amer 61 mL/min (>60); Estimated Creatinine Clearance 33.51 ml/min; Glucose 85 mg/dL (74-106); Potassium 3.8 mmol/L (3.5-5.1); Sodium Level 141 mmol/L (136-145)
--- NOTE | 2018-02-03 10:33 | ED.RN ---
Addendum entered by Rosy Spring 02/03/18 10:49: ERROR, WRONG PT. Original Note: YAZMIN PEPE.
[2018-02-03 10:38] LABS: Bacteria 0 SEEN /hpf (None Seen); Mucous, Urine 0 SEEN /hpf (<or=2+); Squamous Epithelial Cells - UA 0 SEEN /hpf (5-10); White Blood Cells 0 SEEN /hpf (0-5)
--- NOTE | 2018-02-03 10:48 | ED.RN ---
Addendum entered by Rosy Spring 02/03/18 10:49: ERROR, WRONG PT. Original Note: IN THE BAG WITH MEDICATIONS, IS A GREEN CONTAINER WITH SOME KIND OF PILLS.
[2018-02-03 10:50] LABS: Color, Urine Yellow (Yellow); Glucose, Dipstick Normal (Normal); Ketone-Dipstick Negative (Negative); Leukocyte Esterase-Dipstick Negative /ul (Negative); Nitrite-Dipstick Negative (Negative); Occult Blood-Urine 150 /ul (Negative); Protein-Dipstick Negative (Negative); Specific Gravity, Urine 1.005 (1.002-1.030); Urine Bilirubin Dipstick Negative (Negative); Urine Clarity Clear (Clear); Urine Urobilinogen Normal (Normal); Urine pH 6.5 (5.0 - 8.0)
[2018-02-03 10:57] LABS: Red Blood Cells-Urine 0-5 SEEN /hpf (0-5)
--- NOTE | 2018-02-03 11:20 | ED.VISSUMM ---
- ER Visit Summary Date of Service: 02/03/18 Chief Complaint: Confusion History of Present Illness: The patient is a 72 F who states she woke this morning to make pickled eggs. She got out her recipe but felt very confused and had difficulty comprehending the instructions. She had no speech difficulty. There is no paresthesias or weakness. Patient still feels confused but not as severe. She states she had to think about how to spell her last name when asked to give me an example. Patient has a history of COPD with a recent hospital stay. She was recently started on oxygen. She was wearing her oxygen last night and this morning during this episode. Physical Examination: Vital signs are unremarkable. Patient sitting upright in bed no acute distress. Head neck examination is unremarkable. Heart is regular rate and rhythm. Lung sounds are clear. Abdomen is soft and nontender. Neuro exam is unremarkable for me with an NIH score of 0. Test Results: EKG is sinus at 61 with no sign of acute ischemia. CBC reveals a white count of 11.8 with 78% neutrophils. Chemistry studies reveal mild renal insufficiency with a creatinine 1.13. Urinalysis is unremarkable. Troponin is negative. CT head shows no acute change. There is chronic small vessel disease. Emergency Department Course and Treatment: Repeat evaluation patient is resting comfortably. She feels that her thought process is improving. Family member at bedside states that she still will stop mid sentence and think about what she wants to say every once in a while. At this time she will be admitted for TIA/stroke workup. Treatment Plan: [] Disposition: Admit Impression: TIA This note was generated with [employer] dictation software. It may contain incorrect words, spelling, and punctuation that were not noted in review of the chart prior to signing ED Disposition - Plan for ED Patient: Chief Complaint: Confusion Referrals: Adis Mireles MD [Primary Care Provider] -
[2018-02-03] MEDS: 0.9% Normal Saline 1,000 ML 15 ML IV (11:29)
--- NOTE | 2018-02-03 13:28 | PCM.HP.STD ---
Problem List (1) TIA (transient ischemic attack) Status: Acute (2) Filling defect on imaging study Status: Acute Comment: Filling defect in proximal right colon on CT abdomen (3) 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 calculus Status: Acute (4) Anxiety Status: Chronic (5) Chronic bronchitis Status: Chronic (6) Depression Status: Chronic (7) History of rectal cancer Status: Chronic (8) Hydronephrosis, right Status: Chronic (9) Hypothyroidism Status: Chronic (10) Nicotine abuse Status: Chronic (11) COPD (chronic obstructive pulmonary disease) Status: Chronic History of Present Illness Date of Admission: 02/03/18 Chief Complaint: Difficulty in comprehension. The patient is a 72 year old F with history of multiple comorbidities including COPD was just discharged on 01/29/2018 for COPD exacerbation secondary to acute rhinovirus bronchitis and was sent home on home oxygen came to ER today when she was having sudden onset of comprehension of recipe which she had made several times in the past. She did not had problem in motor part of the speech was having difficulty in understanding the written speech. As per the daughter, she seemed confused. She is not taking Ativan as mentioned in the home medication. She is also did not take oxycodone which she takes as needed for severe she denies any focal weakness or paresthesia. She has chronic weakness of right lower extremity secondary to neuropathy. In the ED, his workup was at baseline. EKG shows normal sinus rhythm with no significant change from previous EKG of January 25, 2018. UA was negative during previous admission. CT head does not show any acute change [] Past Medical History Past Medical History (Chronic Problems): Chronic Problems Hypothyroidism (Chronic) Anxiety (Chronic) Depression (Chronic) Nicotine abuse (Chronic) COPD (chronic obstructive pulmonary disease) (Chronic) Chronic bronchitis (Chronic) Hydronephrosis, right (Chronic) History of rectal cancer (Chronic) Allergies ciprofloxacin [From Cipro] Allergy (Verified 02/03/18 09:04) Rash ciprofloxacin HCl [From Cipro] Allergy (Verified 02/03/18 09:04) Rash Penicillins Allergy (Verified 02/03/18 09:04) Hives codeine Adverse Reaction (Verified 02/03/18 09:04) makes her feel weird makes her feel weird NSAIDS (Non-Steroidal Anti-Inflamma Adverse Reaction (Verified 02/03/18 09:04) kidney damage r/t long-term usage advised not to use kidney damage r/t long-term usage advised not to use MAGNESIUM CITRATE Adverse Reaction (Uncoded 02/03/18 09:04) Nausea Home Medications: Ambulatory Orders Medication Instructions Recorded Levothyroxine [Synthroid] 112 mcg PO DAILY 02/02/15 Gabapentin [Neurontin] 300 mg PO BID 01/25/18 Albuterol IH (ProAir) [Proair Hfa] 1 puff INHALATION Q4H PRN PRN #1 01/29/18 inhaler Budesonide/Formoterol 160/4.5 2 puff INHALATION BID #1 inhaler 01/29/18 [Symbicort 160/4.5 Mcg Inhaler (SP)] Prednisone 10 mg PO UD #30 tab 01/29/18 Citalopram 40 mg PO DAILY 02/03/18 Ergocalciferol [Vitamin D] 50,000 unit PO SUMOWE 02/03/18 Lorazepam [Ativan] 1 tab PO 4X/DAY PRN PRN 02/03/18 Oxycodone 1 tab PO TID 02/03/18 Surgical History: cholecystectomy, tonsillectomy, - - bowel resection, colostomy Psychiatric History: No pertinent psych hx LAMINATOR PREFORMS History: No pertinent LAMINATOR PREFORMS history Smoking Status: Former smoker - *Family History Maternal History Items: COPD, Heart Disease Sibling History Items: Diabetes Paternal History Items: Heart Disease Review of Systems Constitutional: Reports: Malaise HEENT: Denies: Head Aches, Sinus Congestion, Sinus Drainage Cardiovascular: Denies: Chest Pain, Palpitations Respiratory: Reports: Cough. Denies: Shortness of breath at rest, Sputum production Gastrointestinal: Denies: Abdominal Pain, Nausea, Vomiting Genitourinary: Denies: Dysuria Musculoskeletal: Denies: Joint Pain, Joint Tenderness Skin: Denies: Rash, Wounds Neurological: Denies: Focal weakness, Numbness, Tingling Psychiatric: Denies: Anxiety, Depression, Homicidal Ideations, Suicidal Ideations Hematologic/ Lymphatic: Denies: Easy Bruising, Easy Bleeding VTE Information - Inpt Only VTE Present on Admission: No VTE Mechan Device Prophylaxis: SCD's VTE Pharm Prophylaxis ordered?: Yes Patient Problems: Active and Suspected Problems TIA (transient ischemic attack) (Acute) - Physical Exam General: Alert, Oriented x3, Cooperative HEENT: Atraumatic, PERRLA, EOMI, Normocephalic Oral: Dry Mucosa Neck: Supple, No JVD, Negative Carotid Bruits Lungs: Diminished - Air entry diminished in bilateral lung bases but at baseline, Rhonchi Cardiovascular: Regular rate, Regular Rhythm, Normal S1, Normal S2, No murmurs Abdomen: Bowel Sounds Present, Soft, Non Tender, Non-Distended Extremities: No edema, Capillary Refill Less than 3 Seconds Skin: No rashes, No breakdown Musculoskeletal: Arthritic Changes, Muscle Wasting Neurological: Cranial nerves II-XII grossly intact, Neuro grossly intact, - - Chronic weakness of right lower extremity secondary to neuropathy Psych/Mental Status: Normal Affect, Appropriate Vital Signs Temp Pulse Resp BP Pulse Ox 98.0 F 67 16 127/79 H 97 02/03/18 09:02 02/03/18 11:35 02/03/18 11:35 02/03/18 11:35 02/03/18 11:35 Weight: 107 lb 9.369 oz Body Mass Index (BMI) 19.6 Assessment/Plan Active and Suspected Problems TIA (transient ischemic attack) (Acute) The patient is a 72 year old F with history of multiple comorbidities including COPD was just discharged on 01/29/2018 for COPD exacerbation secondary to acute rhinovirus bronchitis and was sent home on home oxygen came to ER today when she was having sudden onset of comprehension of recipe which she had made several times in the past. She did not had problem in motor part of the speech was having difficulty in understanding the written speech. As per the daughter, she seemed confused. She is not taking Ativan as mentioned in the home medication. She is also did not take oxycodone which she takes as needed for severe she denies any focal weakness or paresthesia. She has chronic weakness of right lower extremity secondary to neuropathy. In the ED, his workup was at baseline. EKG shows normal sinus rhythm with no significant change from previous EKG of January 25, 2018. UA was negative during previous admission. CT head does not show any acute change 1. Transient sensory aphasia possible TIA: Patient is being admitted on the PCU. On TIA protocol with PT OT and speech evaluation. Started on aspirin and statin. MRI brain and carotid Doppler ordered. If MRI positive of ischemic infarct will further order echo and CT angiogram of head and neck. In meantime will DO frequent neuro checks and maintain glucose and BP control as per his stroke protocol. Neuro consult. UA was negative on 01/16/18 2. COPD with acute hypoxic respiratory failure since previous admission: Patient breathing is getting better. On 2 L of home oxygen. Continue bronchodilator, prednisone and incentive spirometry. 3. Other chronic comorbidities include history of nonobstructive kidney stone, hypothyroidism, history of rectal carcinoma in remission for 12 years after colectomy and colostomy, nicotine use, anxiety and depression: Home medication reconciliation done. DVT prophylaxis: On heparin 5000 units subcutaneous twice daily and bilateral SCDs This note was generated with [employer] dictation software. Every effort was made to ensure accuracy, however computerized wool dyer mistakes may persist. Code Visit Inpatient E&M: 44547 Init Hosp L3
--- NOTE | 2018-02-03 13:46 | CDU_ITS ---
Reason For Study: TIA Rt. Velocities/BP Lt. Velocities/BP Prox CCA 69.2/20.5 cm/sec. Prox CCA 65.1/19.3 cm/sec. Mid CCA 56.9/18.8 cm/sec. Mid CCA 63.3/19.3 cm/sec. Dist CCA 56.3/18.2 cm/sec. Dist CCA 58.6/20.5 cm/sec. Prox ICA 53.9/18.2 cm/sec. Prox ICA 37.7/12.2 cm/sec. Mid ICA 65.1/26.4 cm/sec. Mid ICA 58.5/22.4 cm/sec. Dist ICA 67.4/22.9 cm/sec. Dist ICA 66.8/28.3 cm/sec. Rt. ICA/CCA = 1.2. Lt. ICA/CCA = 1.1. Prox ECA 72.1/15.2 cm/sec. Prox ECA 62.1/16.4 cm/sec. Rt. Vert. 65.7/19.3 cm/sec. Lt. Vert. 53.8/19.3 cm/sec. Right Extracranial There is intimal thickening but no significant atherosclerotic plaque noted in the right common carotid artery. There is intimal thickening but no significant atherosclerotic plaque noted in the right internal carotid artery. There is intimal thickening but no significant atherosclerotic plaque noted in the right external carotid artery. Antegrade flow is noted in the right vertebral artery. Left Extracranial There is intimal thickening but no significant atherosclerotic plaque noted in the left common carotid artery. There is intimal thickening but no significant atherosclerotic plaque noted in the left internal carotid artery. There is intimal thickening but no significant atherosclerotic plaque noted in the left external carotid artery. Antegrade flow is noted in the left vertebral artery. Procedure Carotid Duplex [id number]. The exam was diagnostic. Exam performed portable in patient room. Interpretation Summary No hemodynamically significant plague or stenosis bilateral extracranial internal carotids with <50% stenosis bilaterally. Normal flow bilateral external carotids. Patent and antegrade vertebrals bilaterally. Ordering Physician: Willie Kerr Performed By: Chino Bradley RVT
[2018-02-03 14:17] LABS: AST(SGOT) 15 U/L (15-37); Alanine Aminotransfer ALT/SGPT 28 U/L (13-56); Albumin, Serum 3.1 g/dL (3.2-5.0); Alkaline Phosphatase 71 U/L (45-117); Bilirubin, Direct 0.15 mg/dL (0.00-0.30); Globulin 3.2 g/dL (2.2-4.2); Protein, Total 6.3 g/dL (6.4-8.2); Thyroid Stim Hormone (TSH) 1.45 uIU/mL (0.358-3.74)
[2018-02-03] MEDS: Albuterol 2.5 MG/3 ML VIAL.NEB. INHALATION ×2 (14:56→18:39)
[2018-02-03 15:00] LABS: Amphetamine Urine VISTA NEGATIVE (<1000 ng/mL); Barbiturate Urine VISTA NEGATIVE (< 200 ng/mL); Benzodiazepine Urine VISTA NEGATIVE (< 200 ng/mL); Cocaine Urine VISTA NEGATIVE (< 300 ng/mL); Ecstacy Urine VISTA NEGATIVE (< 500 ng/mL); Methadone Urine VISTA NEGATIVE (< 300 ng/mL); PCP Urine VISTA NEGATIVE (< 25 ng/mL); THC Urine VISTA NEGATIVE (< 50 ng/mL)
[2018-02-03 15:03] LABS: Vista UDS pH Range 6
--- NOTE | 2018-02-03 15:31 | EKG12_ITS ---
Test Reason : CHEST TIGHTNESS Blood Pressure : / mmHG Vent. Rate : 067 BPM Atrial Rate : 067 BPM P-R Int : 178 ms QRS Dur : 076 ms QT Int : 422 ms P-R-T Axes : 059 008 071 degrees QTc Int : 445 ms Normal sinus rhythm Normal ECG When compared with ECG of 03-FEB-2018 09:27, MANUAL COMPARISON REQUIRED, DATA IS UNCONFIRMED Confirmed by KATLYN TERRAZAS, BAO ([id number]), editor map DEN ANDERSEN ([id number]) on 02/06/2018 1:39:23 PM Referred By: Dontae Mcgarry Confirmed By:BAO POTTS MD
--- NOTE | 2018-02-03 15:32 | ED.RN ---
Patient reports chest tightness. EKG ordered.
[2018-02-03] MEDS: Aspirin 81 MG TAB.CHEW PO (15:39)
[2018-02-03] MEDS: LORazepam 1 MG Tablet PO (15:56)
[2018-02-03] MEDS: Famotidine 20 MG Tablet PO (17:19)
[2018-02-03] MEDS: Gabapentin 300 MG Capsule PO (17:20)
[2018-02-03 17:26] LABS: Bedside Glucose 92 mg/dL (70-110)
--- NOTE | 2018-02-03 18:03 | NURSING ---
Spoke with pharmacist Anup per Dr. Kerr's request. Patient needs to be placed on Prednisone 30mg and order isn't going through. Per Anup, Pulmocort stopped and Prednisone may be ordered.
[2018-02-03] MEDS: 0.9% Normal Saline 1,000 ML 75 ML IV (22:08)
[2018-02-03 22:10] LABS: Bedside Glucose 93 mg/dL (70-110)
--- NOTE | 2018-02-03 22:57 | ECHOD_ITS ---
Reason For Study: TIA/CVA Procedure This was a 2D Doppler, Color Flow transthoracic echocardiogram. Exam performed portable in patient room. Left Ventricle Normal LV size. Left ventricular systolic function is normal. The estimated ejection fraction is 60 %. No evidence for diastolic dysfunction. No regional wall motion abnormalities noted. Right Ventricle Normal RV size. Normal systolic function. Atria Normal left atrium. Normal right atrium. Bubble contrast study negative for right to left interatrial shunt. Mitral Valve Normal mitral valve. Tricuspid Valve Normal tricuspid valve. Mild (1+) tricuspid valve insufficiency. Pulmonary artery systolic pressure is 26 mmHg. Aortic Valve Normal aortic valve. Trisinus/trileaflet aortic valve. Pulmonic Valve Normal pulmonic valve. Great Vessels Normal aortic root. The pulmonary artery is normal size. Normal inferior vena cava. Pericardium/Pleural No pericardial effusion. Medication Performed a rapid injection of agitated mix of 9 cc saline and 1cc air to assess for atrial septal defect. MMode/2D Measurements & Calculations LVIDd: 3.7 cm IVSd: 0.86 cm Ao root diam: 3.2 cm LVIDs: 2.7 cm LVPWd: 0.79 cm LA dimension: 3.3 cm RVDd: 3.1 cm FS: 27.9 % LAV(MOD-bp): 35.7 ml LAV(MOD-bp) Indexed: 24.4 ml/m2 LA A4 area: 13.3 cm2 RA A4 area: 11.2 cm2 LAV(MOD-sp2): 38.0 ml LAV(MOD-sp4): 29.3 ml Doppler Measurements & Calculations MV E max bev: 78.8 cm/sec Ao V2 max: 126.2 cm/sec LV V1 max: 110.4 cm/sec MV A max bev: 73.1 cm/sec Ao max P.4 mmHg LV V1 max P.9 mmHg MV E/A: 1.1 TR max bev: 232.2 cm/sec TR max P.6 mmHg Interpretation Summary Normal LV size. Left ventricular systolic function is normal. The estimated ejection fraction is 60 %. No evidence for diastolic dysfunction. Mild (1+) tricuspid valve insufficiency. Bubble contrast study negative for right to left interatrial shunt. Ordering Physician: Joaquim Gramajo Referring Physician: Adis Mireles M.D. Performed By: Iesha Christopher, KAMALA, RVT
[2018-02-04] VITALS (17 sets, daily range): BP systolic 102–125; BP diastolic 59–86; PULSE 69–93; RESP 16–18; TEMP 36.3–37.2; O2SAT 92–98; BMI 19.6
[2018-02-04] MEDS: Levothyroxine 112 MCG Tablet PO (04:57)
[2018-02-04] MEDS: Albuterol 2.5 MG/3 ML VIAL.NEB. INHALATION ×3 (06:50→18:48)
[2018-02-04 07:20] LABS: Bedside Glucose 94 mg/dL (70-110)
[2018-02-04 07:20] LABS: Bedside Glucose 62 mg/dL (70-110)
[2018-02-04 08:07] LABS: Cholesterol 166 mg/dL (200); High Density Lipoprotein 85 mg/dL; Triglycerides 109 mg/dL; Very Low Density Lipoprotein 22 mg/dL (5-40)
[2018-02-04] MEDS: predniSONE 20 MG Tablet 30 MG PO (09:55)
[2018-02-04] MEDS: predniSONE 10 MG Tablet 30 MG PO (09:55)
[2018-02-04] MEDS: Gabapentin 300 MG Capsule PO ×3 (09:55→16:27)
[2018-02-04] MEDS: Aspirin 81 MG TAB.CHEW PO (09:55)
[2018-02-04] MEDS: Famotidine 20 MG Tablet PO (09:55)
--- NOTE | 2018-02-04 10:01 | PCM.PN.HOSP ---
Patient Problems: Active and Suspected Problems TIA (transient ischemic attack) (Acute) Subjective: The patient did not had new symptoms related to TIA/stroke; no blurry vision dizziness or new weakness. Patient has chronic right lower extremity weakness which did not get worse. Objective: General: Alert, Oriented x3, Cooperative HEENT: Atraumatic, PERRLA, EOMI, Normocephalic Oral: Dry Mucosa Neck: Supple, No JVD, Negative Carotid Bruits Lungs: Diminished - Air entry improved in bilateral lung bases but at baseline,No Rhonchi/wheezes Cardiovascular: Regular rate, Regular Rhythm, Normal S1, Normal S2, No murmurs Abdomen: Bowel Sounds Present, Soft, Non Tender, Non-Distended Extremities: No edema, Capillary Refill Less than 3 Seconds Skin: No rashes, No breakdown Musculoskeletal: Arthritic Changes, Muscle Wasting Neurological: Cranial nerves II-XII grossly intact, Neuro grossly intact, - Chronic weakness of right lower extremity secondary to neuropathy Psych/Mental Status: Normal Affect, Appropriate Vitals/I&O's: Vital Signs Temp Pulse Resp BP Pulse Ox 98.3 F 85 16 104/76 95 02/04/18 08:00 02/04/18 08:00 02/04/18 08:00 02/04/18 08:00 02/04/18 08:00 Oxygen Flow Rate (L/min) 2 Oxygen Delivery Method Room Air Weight: 107 lb 9.369 oz Body Mass Index (BMI) 19.6 Intake and Output for Last 24 Hours 02/02/18 02/03/18 02/04/18 23:59 23:59 23:59 Intake Total 922 / 922 748 / 748 Balance 922 / 922 748 / 748 Laboratory Results 02/03/18 13:20: Total Bilirubin 0.50, Direct Bilirubin 0.15, AST 15, ALT 28, Alkaline Phosphatase 71, Troponin I < 0.02, Total Protein 6.3 L, Albumin 3.1 L, Globulin 3.2, TSH 1.45 02/03/18 13:50: Ammonia 16.0 02/03/18 17:18: POC Glucose 92 02/03/18 22:03: POC Glucose 93 02/04/18 05:35: Vitamin B12 Pending 02/04/18 05:35: Triglycerides 109, Cholesterol 166, LDL Cholesterol 59, VLDL Cholesterol 22, HDL Cholesterol 85, Folate 10.70 02/04/18 06:52: POC Glucose 62 L 02/04/18 07:15: POC Glucose 94 Current Medications Acetaminophen (Tylenol) 650 mg PO Q4H PRN PRN PRN Reason: Headache/Temp>99F Albuterol Sulfate (Ventolin Aerosols) 2.5 mg INHALATION Q4H PRN PRN PRN Reason: SOB &/OR WHEEZING Albuterol Sulfate (Ventolin Aerosols) 2.5 mg INHALATION Q6HWA.RT [facility] Last Admin: 02/04/18 06:50 Dose: 2.5 mg Aspirin (Aspirin, Baby) 81 mg PO DAILY@0800 [facility] Last Admin: 02/03/18 15:39 Dose: 81 mg Atorvastatin Calcium (Lipitor) 20 mg PO QHS PRIMO Famotidine (Pepcid) 20 mg PO DAILY [facility] Last Admin: 02/03/18 17:19 Dose: 20 mg Gabapentin (Neurontin) 300 mg PO TIDCM [facility] Last Admin: 02/03/18 17:20 Dose: 300 mg Sodium Chloride () 1,000 mls @ 75 mls/hr IV .[id number] [facility] Last Admin: 02/03/18 22:08 Dose: 75 mls/hr Levothyroxine Sodium (Synthroid) 112 mcg PO DAILY@0600 [facility] Last Admin: 02/04/18 04:57 Dose: 112 mcg Prednisone () 30 mg PO DAILY@0800 [facility] Promethazine HCl (Phenergan Tablet) 25 mg PO Q6H PRN PRN Reason: NAUSEA Sodium Chloride () 5 - 30 ml IV UD PRN PRN Reason: SALINE FLUSH Medical Necessity - Tobacco Use Smoking Status: Former smoker Assessment/Plan Active and Suspected Problems TIA (transient ischemic attack) (Acute) The patient is a 72 year old F with history of multiple comorbidities including COPD was just discharged on 01/29/2018 for COPD exacerbation secondary to acute rhinovirus bronchitis and was sent home on home oxygen came to ER today when she was having sudden onset of comprehension of recipe which she had made several times in the past. She did not had problem in motor part of the speech was having difficulty in understanding the written speech. As per the daughter, she seemed confused. She is not taking Ativan as mentioned in the home medication. She is also did not take oxycodone which she takes as needed for severe she denies any focal weakness or paresthesia. She has chronic weakness of right lower extremity secondary to neuropathy. In the ED, his workup was at baseline. EKG shows normal sinus rhythm with no significant change from previous EKG of January 25, 2018. UA was negative during previous admission. CT head does not show any acute change 1. Transient sensory aphasia possible TIA: Patient is being admitted on the PCU. On TIA protocol with PT OT and speech evaluation. Started on aspirin and statin. MRI brain, echo and carotid Doppler ordered. If MRI positive of ischemic infarct will further order CT angiogram of head and neck. Can discontinue checks. maintain glucose and BP control as per his stroke protocol. Neuro consult. UA was negative on 01/16/18 2. COPD with acute hypoxic respiratory failure since previous admission: Patient breathing is getting better. On 2 L of home oxygen. Continue bronchodilator, prednisone and incentive spirometry. 3. Other chronic comorbidities include history of nonobstructive kidney stone, hypothyroidism, history of rectal carcinoma in remission for 12 years after colectomy and colostomy, nicotine use, anxiety and depression: On Celexa home medication reconciliation done. DVT prophylaxis: On heparin 5000 units subcutaneous twice daily and bilateral SCDs This note was generated with [employer] dictation software. Every effort was made to ensure accuracy, however computerized painter barrel mistakes may persist. Code Visit Inpatient E&M: 84201 [facility] L3
--- NOTE | 2018-02-04 10:09 | PN_ITS ---
Patient Problems: Active and Suspected Problems TIA (transient ischemic attack) (Acute) Subjective: The patient did not had new symptoms related to TIA/stroke; no blurry vision dizziness or new weakness. Patient has chronic right lower extremity weakness which did not get worse. Objective: General: Alert, Oriented x3, Cooperative HEENT: Atraumatic, PERRLA, EOMI, Normocephalic Oral: Dry Mucosa Neck: Supple, No JVD, Negative Carotid Bruits Lungs: Diminished - Air entry improved in bilateral lung bases but at baseline, No Rhonchi/wheezes Cardiovascular: Regular rate, Regular Rhythm, Normal S1, Normal S2, No murmurs Abdomen: Bowel Sounds Present, Soft, Non Tender, Non-Distended Extremities: No edema, Capillary Refill Less than 3 Seconds Skin: No rashes, No breakdown Musculoskeletal: Arthritic Changes, Muscle Wasting Neurological: Cranial nerves II-XII grossly intact, Neuro grossly intact, - Chronic weakness of right lower extremity secondary to neuropathy Psych/Mental Status: Normal Affect, Appropriate Vitals/I&O's: Vital Signs Temp Pulse Resp BP Pulse Ox 98.3 F 85 16 104/76 95 02/04/18 08:00 02/04/18 08:00 02/04/18 08:00 02/04/18 08:00 02/04/18 08:00 Oxygen Flow Rate (L/min) 2 Oxygen Delivery Method Room Air Weight: 107 lb 9.369 oz Body Mass Index (BMI) 19.6 Intake and Output for Last 24 Hours 02/02/18 02/03/18 02/04/18 23:59 23:59 23:59 Intake Total 922 / 922 748 / 748 Balance 922 / 922 748 / 748 Laboratory Results 02/03/18 13:20: Total Bilirubin 0.50, Direct Bilirubin 0.15, AST 15, ALT 28, Alkaline Phosphatase 71, Troponin I < 0.02, Total Protein 6.3 L, Albumin 3.1 L, Globulin 3.2, TSH 1.45 02/03/18 13:50: Ammonia 16.0 02/03/18 17:18: POC Glucose 92 02/03/18 22:03: POC Glucose 93 02/04/18 05:35: Vitamin B12 Pending 02/04/18 05:35: Triglycerides 109, Cholesterol 166, LDL Cholesterol 59, VLDL Cholesterol 22, HDL Cholesterol 85, Folate 10.70 02/04/18 06:52: POC Glucose 62 L 02/04/18 07:15: POC Glucose 94 Current Medications Acetaminophen (Tylenol) 650 mg PO Q4H PRN PRN PRN Reason: Headache/Temp>99F Albuterol Sulfate (Ventolin Aerosols) 2.5 mg INHALATION Q4H PRN PRN PRN Reason: SOB &/OR WHEEZING Albuterol Sulfate (Ventolin Aerosols) 2.5 mg INHALATION Q6HWA.RT [facility] Last Admin: 02/04/18 06:50 Dose: 2.5 mg Aspirin (Aspirin, Baby) 81 mg PO DAILY@0800 [facility] Last Admin: 02/03/18 15:39 Dose: 81 mg Atorvastatin Calcium (Lipitor) 20 mg PO QHS [facility] Famotidine (Pepcid) 20 mg PO DAILY [facility] Last Admin: 02/03/18 17:19 Dose: 20 mg Gabapentin (Neurontin) 300 mg PO TIDCM [facility] Last Admin: 02/03/18 17:20 Dose: 300 mg Sodium Chloride () 1,000 mls @ 75 mls/hr IV .[id number] [facility] Last Admin: 02/03/18 22:08 Dose: 75 mls/hr Levothyroxine Sodium (Synthroid) 112 mcg PO DAILY@0600 [facility] Last Admin: 02/04/18 04:57 Dose: 112 mcg Prednisone () 30 mg PO DAILY@0800 [facility] Promethazine HCl (Phenergan Tablet) 25 mg PO Q6H PRN PRN Reason: NAUSEA Sodium Chloride () 5 - 30 ml IV UD PRN PRN Reason: SALINE FLUSH Medical Necessity - Tobacco Use Smoking Status: Former smoker Assessment/Plan Active and Suspected Problems TIA (transient ischemic attack) (Acute) The patient is a 72 year old F with history of multiple comorbidities including COPD was just discharged on 01/29/2018 for COPD exacerbation secondary to acute rhinovirus bronchitis and was sent home on home oxygen came to ER today when she was having sudden onset of comprehension of recipe which she had made several times in the past. She did not had problem in motor part of the speech was having difficulty in understanding the written speech. As per the daughter , she seemed confused. She is not taking Ativan as mentioned in the home medication. She is also did not take oxycodone which she takes as needed for severe she denies any focal weakness or paresthesia. She has chronic weakness of right lower extremity secondary to neuropathy. In the ED, his workup was at baseline. EKG shows normal sinus rhythm with no significant change from previous EKG of January 25, 2018. UA was negative during previous admission. CT head does not show any acute change 1. Transient sensory aphasia possible TIA: Patient is being admitted on the PCU. On TIA protocol with PT OT and speech evaluation. Started on aspirin and statin. MRI brain, echo and carotid Doppler ordered. If MRI positive of ischemic infarct will further order CT angiogram of head and neck. Can discontinue checks. maintain glucose and BP control as per his stroke protocol. Neuro consult. UA was negative on 01/16/18 2. COPD with acute hypoxic respiratory failure since previous admission: Patient breathing is getting better. On 2 L of home oxygen. Continue bronchodilator, prednisone and incentive spirometry. 3. Other chronic comorbidities include history of nonobstructive kidney stone, hypothyroidism, history of rectal carcinoma in remission for 12 years after colectomy and colostomy, nicotine use, anxiety and depression: On Celexa home medication reconciliation done. DVT prophylaxis: On heparin 5000 units subcutaneous twice daily and bilateral SCDs This note was generated with Recorded Future dictation software. Every effort was made to ensure accuracy, however computerized project consultant mistakes may persist. Code Visit Inpatient E&M: [id number] [facility] L3
[2018-02-04] MEDS: 0.9% Normal Saline 1,000 ML 75 ML IV ×2 (11:16→23:49)
--- NOTE | 2018-02-04 11:30 | PCM.CONS.GEN ---
Reason for Consult Date of Consultation: 02/04/18 Reason for Consultation: confusion History of Present Illness: The patient is a 72 year old F right handed white female admitted for transient confusion lasted 45min yesterday am first noted while she was trying to read a recipe which she was normally familiar with (pickled eggs). denies focal weakness, changes in vision, speech, or swallowing. no double vision. now feels normal. recently hospitalized, discharged about 6 days ago related to copd. no recent med changes. denies sob. admits to anxiety, as result however but not as a trigger of yesterdays events. quit smoking one week ago. per admit h&p:The patient is a 72 year old F with history of multiple comorbidities including COPD was just discharged on 01/29/2018 for COPD exacerbation secondary to acute rhinovirus bronchitis and was sent home on home oxygen came to ER today when she was having sudden onset of comprehension of recipe which she had made several times in the past. She did not had problem in motor part of the speech was having difficulty in understanding the written speech. As per the daughter, she seemed confused. She is not taking Ativan as mentioned in the home medication. She is also did not take oxycodone which she takes as needed for severe she denies any focal weakness or paresthesia. She has chronic weakness of right lower extremity secondary to neuropathy. In the ED, his workup was at baseline. EKG shows normal sinus rhythm with no significant change from previous EKG of January 25, 2018. UA was negative during previous admission. CT head does not show any acute change Past Medical History Past Medical History (Chronic Problems): Chronic Problems Hypothyroidism (Chronic) Anxiety (Chronic) Depression (Chronic) Nicotine abuse (Chronic) COPD (chronic obstructive pulmonary disease) (Chronic) Chronic bronchitis (Chronic) Hydronephrosis, right (Chronic) History of rectal cancer (Chronic) Allergies ciprofloxacin [From Cipro] Allergy (Verified 02/03/18 09:04) Rash ciprofloxacin HCl [From Cipro] Allergy (Verified 02/03/18 09:04) Rash Penicillins Allergy (Verified 02/03/18 09:04) Hives codeine Adverse Reaction (Verified 02/03/18 09:04) makes her feel weird makes her feel weird NSAIDS (Non-Steroidal Anti-Inflamma Adverse Reaction (Verified 02/03/18 09:04) kidney damage r/t long-term usage advised not to use kidney damage r/t long-term usage advised not to use MAGNESIUM CITRATE Adverse Reaction (Uncoded 02/03/18 09:04) Nausea Home Medications: Ambulatory Orders Medication Instructions Recorded Levothyroxine [Synthroid] 112 mcg PO DAILY 02/02/15 Gabapentin [Neurontin] 300 mg PO BID 01/25/18 Albuterol IH (ProAir) [Proair Hfa] 1 puff INHALATION Q4H PRN PRN #1 01/29/18 inhaler Budesonide/Formoterol 160/4.5 2 puff INHALATION BID #1 inhaler 01/29/18 [Symbicort 160/4.5 Mcg Inhaler (SP)] Prednisone 10 mg PO UD #30 tab 01/29/18 Citalopram 40 mg PO DAILY 02/03/18 Ergocalciferol [Vitamin D] 50,000 unit PO SUMOWE 02/03/18 Lorazepam [Ativan] 1 tab PO 4X/DAY PRN PRN 02/03/18 Oxycodone 1 tab PO TID 02/03/18 Surgical History: cholecystectomy, tonsillectomy, - - bowel resection, colostomy Psychiatric History: No pertinent psych hx MEDICAL ASSISTANT History: No pertinent MEDICAL ASSISTANT history Smoking Status: Former smoker - *Family History Maternal History Items: COPD, Heart Disease Sibling History Items: Diabetes Paternal History Items: Heart Disease Review of Systems Constitutional: Denies: Chills, Fever, Weight Change HEENT: Denies: Head Aches, Sinus Congestion, Sinus Drainage Cardiovascular: Denies: Chest Pain, Palpitations Respiratory: Denies: Cough, Shortness of breath at rest, Sputum production Gastrointestinal: Denies: Abdominal Pain, Nausea, Vomiting Genitourinary: Denies: Dysuria Musculoskeletal: Denies: Joint Pain, Joint Tenderness Skin: Denies: Rash, Wounds Neurological: Denies: Numbness, Tingling, Focal weakness Psychiatric: Denies: Anxiety, Depression, Homicidal Ideations, Suicidal Ideations Hematologic/ Lymphatic: Denies: Easy Bruising, Easy Bleeding Patient Problems: Active and Suspected Problems TIA (transient ischemic attack) (Acute) - Physical Exam General: Alert, Oriented x3, Cooperative HEENT: Atraumatic, PERRLA, EOMI, Normocephalic Neck: Supple, No JVD, Negative Carotid Bruits Lungs: Clear to auscultation, Normal air movement Cardiovascular: Regular rate, No murmurs Abdomen: Bowel Sounds Present, Soft, Non Tender Extremities: No edema, Capillary Refill Less than 3 Seconds Skin: No rashes, No breakdown Musculoskeletal: No Tenderness to Palpation of Joints or Extremities Neurological: Cranial nerves II-XII grossly intact Psych/Mental Status: Normal Affect, Appropriate Vital Signs Temp Pulse Resp BP Pulse Ox 36.8 C 85 16 104/76 95 02/04/18 08:00 02/04/18 08:00 02/04/18 08:00 02/04/18 08:00 02/04/18 08:00 Oxygen Flow Rate (L/min) 2 Oxygen Delivery Method Room Air Weight: 48.8 kg Body Mass Index (BMI) 19.6 Intake and Output for Last 24 Hours 02/02/18 02/03/18 02/04/18 23:59 23:59 23:59 Intake Total 922 / 922 1585 / 1585 Balance 922 / 922 1585 / 1585 Laboratory Tests Past 24 Hrs 02/03/18 02/03/18 02/04/18 13:20 13:50 05:35 Total Bilirubin 0.50 Direct Bilirubin 0.15 AST 15 ALT 28 Alkaline Phosphatase 71 Ammonia 16.0 Troponin I < 0.02 Total Protein 6.3 L Albumin 3.1 L Globulin 3.2 Triglycerides Cholesterol LDL Cholesterol VLDL Cholesterol HDL Cholesterol Vitamin B12 Pending Folate TSH 1.45 02/04/18 05:35 Total Bilirubin Direct Bilirubin AST ALT Alkaline Phosphatase Ammonia Troponin I Total Protein Albumin Globulin Triglycerides 109 Cholesterol 166 LDL Cholesterol 59 VLDL Cholesterol 22 HDL Cholesterol 85 Vitamin B12 Folate 10.70 TSH POC Glucose 02/04/18 02/04/18 02/03/18 07:15 06:52 22:03 POC Glucose 94 62 L 93 02/03/18 17:[address] reviewed, no acute Current Home Med List Medication Instructions Recorded Confirmed Type Levothyroxine [Synthroid] 112 mcg PO DAILY 02/02/15 02/03/18 History Gabapentin [Neurontin] 300 mg PO BID 01/25/18 02/03/18 History Albuterol IH (ProAir) [Proair Hfa] 1 puff INHALATION Q4H PRN PRN #1 01/29/18 02/03/18 Rx inhaler Budesonide/Formoterol 160/4.5 2 puff INHALATION BID #1 inhaler 01/29/18 02/03/18 Rx [Symbicort 160/4.5 Mcg Inhaler (SP)] Prednisone 10 mg PO UD #30 tab 01/29/18 02/03/18 Rx Citalopram 40 mg PO DAILY 02/03/18 02/03/18 History Ergocalciferol [Vitamin D] 50,000 unit PO SUMOWE 02/03/18 02/03/18 History Oxycodone 1 tab PO TID 02/03/18 02/03/18 History Current Medications Generic Name Dose Route Start Last Admin Trade Name Freq PRN Reason Stop Dose Admin Acetaminophen 650 mg 02/03/18 13:01 Tylenol PO Q4H PRN PRN Headache/Temp>99F Albuterol Sulfate 2.5 mg 02/03/18 13:01 Ventolin Aerosols INHALATION Q4H PRN PRN SOB &/OR WHEEZING Albuterol Sulfate 2.5 mg 02/04/18 10:30 Ventolin Aerosols INHALATION Q6HWA.RT [facility] Aspirin 81 mg 02/03/18 13:01 02/04/18 09:55 Aspirin, Baby PO 81 mg DAILY@0800 [facility] Administration Atorvastatin Calcium 20 mg 02/04/18 22:00 Lipitor PO QHS [facility] Budesonide 0.5 mg 02/04/18 10:30 Pulmicort Aerosol INHALATION Q12H.RT [facility] Citalopram Hydrobromide 40 mg 02/05/18 10:00 Celexa PO DAILY [facility] Famotidine 20 mg 02/03/18 16:00 02/04/18 09:55 Pepcid PO 20 mg DAILY [facility] Administration Gabapentin 300 mg 02/03/18 17:00 02/04/18 11:16 Neurontin PO 300 mg TIDCM [facility] Administration Sodium Chloride 1,000 mls @ 75 mls/hr 02/03/18 13:01 02/04/18 11:16 IV 75 mls/hr .[id number] [facility] Administration Levothyroxine Sodium 112 mcg 02/04/18 06:00 02/04/18 04:57 Synthroid PO 112 mcg DAILY@0600 [facility] Administration Prednisone 30 mg 02/05/18 08:00 PO 02/14/18 07:59 DAILY@0800 [facility] Taper Promethazine HCl 25 mg 02/03/18 13:01 Phenergan Tablet PO Q6H PRN NAUSEA Sodium Chloride 5 - 30 ml 02/03/18 14:13 IV UD PRN SALINE FLUSH Assessment/Plan Active and Suspected Problems TIA (transient ischemic attack) (Acute) anxiety vs tia vs migraine equivalent: resolved asa daily await mri pt/ot as needed
--- NOTE | 2018-02-04 11:38 | CON.PCM_ITS ---
Reason for Consult Date of Consultation: 02/04/18 Reason for Consultation: confusion History of Present Illness: The patient is a 72 year old F right handed white female admitted for transient confusion lasted 45min yesterday am first noted while she was trying to read a recipe which she was normally familiar with (pickled eggs). denies focal weakness, changes in vision, speech, or swallowing. no double vision. now feels normal. recently hospitalized, discharged about 6 days ago related to copd. no recent med changes. denies sob. admits to anxiety, as result however but not as a trigger of yesterdays events. quit smoking one week ago. per admit h&p:The patient is a 72 year old F with history of multiple comorbidities including COPD was just discharged on 01/29/2018 for COPD exacerbation secondary to acute rhinovirus bronchitis and was sent home on home oxygen came to ER today when she was having sudden onset of comprehension of recipe which she had made several times in the past. She did not had problem in motor part of the speech was having difficulty in understanding the written speech. As per the daughter, she seemed confused. She is not taking Ativan as mentioned in the home medication. She is also did not take oxycodone which she takes as needed for severe she denies any focal weakness or paresthesia. She has chronic weakness of right lower extremity secondary to neuropathy. In the ED, his workup was at baseline. EKG shows normal sinus rhythm with no significant change from previous EKG of January 25, 2018. UA was negative during previous admission. CT head does not show any acute change Past Medical History Past Medical History (Chronic Problems): Chronic Problems Hypothyroidism (Chronic) Anxiety (Chronic) Depression (Chronic) Nicotine abuse (Chronic) COPD (chronic obstructive pulmonary disease) (Chronic) Chronic bronchitis (Chronic) Hydronephrosis, right (Chronic) History of rectal cancer (Chronic) Allergies ciprofloxacin [From Cipro] Allergy (Verified 02/03/18 09:04) Rash ciprofloxacin HCl [From Cipro] Allergy (Verified 02/03/18 09:04) Rash Penicillins Allergy (Verified 02/03/18 09:04) Hives codeine Adverse Reaction (Verified 02/03/18 09:04) makes her feel weird makes her feel weird NSAIDS (Non-Steroidal Anti-Inflamma Adverse Reaction (Verified 02/03/18 09:04) kidney damage r/t long-term usage advised not to use kidney damage r/t long-term usage advised not to use MAGNESIUM CITRATE Adverse Reaction (Uncoded 02/03/18 09:04) Nausea Home Medications: Ambulatory Orders Medication Instructions Recorded Levothyroxine [Synthroid] 112 mcg PO DAILY 02/02/15 Gabapentin [Neurontin] 300 mg PO BID 01/25/18 Albuterol IH (ProAir) [Proair Hfa] 1 puff INHALATION Q4H PRN PRN #1 01/29/18 inhaler Budesonide/Formoterol 160/4.5 2 puff INHALATION BID #1 inhaler 01/29/18 [Symbicort 160/4.5 Mcg Inhaler (SP)] Prednisone 10 mg PO UD #30 tab 01/29/18 Citalopram 40 mg PO DAILY 02/03/18 Ergocalciferol [Vitamin D] 50,000 unit PO SUMOWE 02/03/18 Lorazepam [Ativan] 1 tab PO 4X/DAY PRN PRN 02/03/18 Oxycodone 1 tab PO TID 02/03/18 Surgical History: cholecystectomy, tonsillectomy, - - bowel resection, colostomy Psychiatric History: No pertinent psych hx FEED WEIGHER History: No pertinent FEED WEIGHER history Smoking Status: Former smoker - *Family History Maternal History Items: COPD, Heart Disease Sibling History Items: Diabetes Paternal History Items: Heart Disease Review of Systems Constitutional: Denies: Chills, Fever, Weight Change HEENT: Denies: Head Aches, Sinus Congestion, Sinus Drainage Cardiovascular: Denies: Chest Pain, Palpitations Respiratory: Denies: Cough, Shortness of breath at rest, Sputum production Gastrointestinal: Denies: Abdominal Pain, Nausea, Vomiting Genitourinary: Denies: Dysuria Musculoskeletal: Denies: Joint Pain, Joint Tenderness Skin: Denies: Rash, Wounds Neurological: Denies: Numbness, Tingling, Focal weakness Psychiatric: Denies: Anxiety, Depression, Homicidal Ideations, Suicidal Ideations Hematologic/ Lymphatic: Denies: Easy Bruising, Easy Bleeding Patient Problems: Active and Suspected Problems TIA (transient ischemic attack) (Acute) - Physical Exam General: Alert, Oriented x3, Cooperative HEENT: Atraumatic, PERRLA, EOMI, Normocephalic Neck: Supple, No JVD, Negative Carotid Bruits Lungs: Clear to auscultation, Normal air movement Cardiovascular: Regular rate, No murmurs Abdomen: Bowel Sounds Present, Soft, Non Tender Extremities: No edema, Capillary Refill Less than 3 Seconds Skin: No rashes, No breakdown Musculoskeletal: No Tenderness to Palpation of Joints or Extremities Neurological: Cranial nerves II-XII grossly intact Psych/Mental Status: Normal Affect, Appropriate Vital Signs Temp Pulse Resp BP Pulse Ox 36.8 C 85 16 104/76 95 02/04/18 08:00 02/04/18 08:00 02/04/18 08:00 02/04/18 08:00 02/04/18 08:00 Oxygen Flow Rate (L/min) 2 Oxygen Delivery Method Room Air Weight: 48.8 kg Body Mass Index (BMI) 19.6 Intake and Output for Last 24 Hours 02/02/18 02/03/18 02/04/18 23:59 23:59 23:59 Intake Total 922 / 922 1585 / 1585 Balance 922 / 922 1585 / 1585 Laboratory Tests Past 24 Hrs 02/03/18 02/03/18 02/04/18 13:20 13:50 05:35 Total Bilirubin 0.50 Direct Bilirubin 0.15 AST 15 ALT 28 Alkaline Phosphatase 71 Ammonia 16.0 Troponin I < 0.02 Total Protein 6.3 L Albumin 3.1 L Globulin 3.2 Triglycerides Cholesterol LDL Cholesterol VLDL Cholesterol HDL Cholesterol Vitamin B12 Pending Folate TSH 1.45 02/04/18 05:35 Total Bilirubin Direct Bilirubin AST ALT Alkaline Phosphatase Ammonia Troponin I Total Protein Albumin Globulin Triglycerides 109 Cholesterol 166 LDL Cholesterol 59 VLDL Cholesterol 22 HDL Cholesterol 85 Vitamin B12 Folate 10.70 TSH POC Glucose 02/04/18 02/04/18 02/03/18 07:15 06:52 22:03 POC Glucose 94 62 L 93 02/03/18 17:[address] reviewed, no acute Current Home Med List Medication Instructions Recorded Confirmed Type Levothyroxine [Synthroid] 112 mcg PO DAILY 02/02/15 02/03/18 History Gabapentin [Neurontin] 300 mg PO BID 01/25/18 02/03/18 History Albuterol IH (ProAir) [Proair Hfa] 1 puff INHALATION Q4H PRN PRN #1 01/29/18 Rx inhaler Budesonide/Formoterol 160/4.5 2 puff INHALATION BID #1 inhaler 01/29/18 Rx [Symbicort 160/4.5 Mcg Inhaler (SP)] Prednisone 10 mg PO UD #30 tab 01/29/18 02/03/18 Rx Citalopram 40 mg PO DAILY 02/03/18 02/03/18 History Ergocalciferol [Vitamin D] 50,000 unit PO SUMOWE 02/03/18 02/03/18 History Oxycodone 1 tab PO TID 02/03/18 02/03/18 History Current Medications Generic Name Dose Route Start Last Admin Trade Name Freq PRN Reason Stop Dose Admin Acetaminophen 650 mg 02/03/18 13:01 Tylenol PO Q4H PRN PRN Headache/Temp>99F Albuterol Sulfate 2.5 mg 02/03/18 13:01 Ventolin Aerosols INHALATION Q4H PRN PRN SOB &/OR WHEEZING Albuterol Sulfate 2.5 mg 02/04/18 10:30 Ventolin Aerosols INHALATION Q6HWA.RT [facility] Aspirin 81 mg 02/03/18 13:01 02/04/18 09:55 Aspirin, Baby PO 81 mg DAILY@0800 [facility] Administration Atorvastatin Calcium 20 mg 02/04/18 22:00 Lipitor PO QHS [facility] Budesonide 0.5 mg 02/04/18 10:30 Pulmicort Aerosol INHALATION Q12H.RT [facility] Citalopram Hydrobromide 40 mg 02/05/18 10:00 Celexa PO DAILY [facility] Famotidine 20 mg 02/03/18 16:00 02/04/18 09:55 Pepcid PO 20 mg DAILY [facility] Administration Gabapentin 300 mg 02/03/18 17:00 02/04/18 11:16 Neurontin PO 300 mg TIDCM [facility] Administration Sodium Chloride 1,000 mls @ 75 mls/hr 02/03/18 13:01 02/04/18 11:16 IV 75 mls/hr .[id number] [facility] Administration Levothyroxine Sodium 112 mcg 02/04/18 06:00 02/04/18 04:57 Synthroid PO 112 mcg DAILY@0600 [facility] Administration Prednisone 30 mg 02/05/18 08:00 PO 02/14/18 07:59 DAILY@0800 [facility] Taper Promethazine HCl 25 mg 02/03/18 13:01 Phenergan Tablet PO Q6H PRN NAUSEA Sodium Chloride 5 - 30 ml 02/03/18 14:13 IV UD PRN SALINE FLUSH Assessment/Plan Active and Suspected Problems TIA (transient ischemic attack) (Acute) anxiety vs tia vs migraine equivalent: resolved asa daily await mri pt/ot as needed
[2018-02-04 11:45] LABS: Bedside Glucose 106 mg/dL (70-110)
--- NOTE | 2018-02-04 14:45 | CASEMGMT ---
See attached sales technician home theater. Met face to face with patient earlier today. Denies anticipating any additional needs when discharged home. Dr. Sharp was consulted and saw patient today. Also sees a kidney doctor however she is not sure what his name is. States they assigned her a new one. Instructed that case management is available should any needs arise. Verb understanding. Horacio Vo, RICHARD, CCM.
[2018-02-04 17:05] LABS: Bedside Glucose 173 mg/dL (70-110)
[2018-02-04] MEDS: Budesonide Respules 0.5 MG/2 ML AMPUL.NEB. INHALATION (18:49)
[2018-02-04] MEDS: Atorvastatin Calcium 20 MG Tablet PO (21:41)
[2018-02-04 22:26] LABS: Bedside Glucose 202 mg/dL (70-110)
[2018-02-05] VITALS (8 sets, daily range): BP systolic 112–123; BP diastolic 63–70; PULSE 63–90; RESP 16–19; TEMP 36.7; O2SAT 94–100; BMI 19.6
[2018-02-05] MEDS: Levothyroxine 112 MCG Tablet PO (05:06)
[2018-02-05 06:23] LABS: Anion Gap 8 (5-15); BUN 12 mg/dL (7-18); BUN/Creat Ratio 12.7 RATIO (10-20); Calcium,Total 8.1 mg/dL (8.5-10.1); Chloride 109 mmol/L (98-107); Creatinine, Serum 0.95 mg/dL (0.55-1.02); EST Glomerular Filtration Rate 62 mL/min (>60); Est Glom Filt Rate - Afr Amer 75 mL/min (>60); Estimated Creatinine Clearance 41.24 ml/min; Glucose 76 mg/dL (74-106); Potassium 4.1 mmol/L (3.5-5.1); Sodium Level 140 mmol/L (136-145)
[2018-02-05] MEDS: Albuterol 2.5 MG/3 ML VIAL.NEB. INHALATION ×2 (06:45→13:11)
[2018-02-05] MEDS: Budesonide Respules 0.5 MG/2 ML AMPUL.NEB. INHALATION (06:45)
[2018-02-05 07:01] LABS: Bedside Glucose 77 mg/dL (70-110)
--- NOTE | 2018-02-05 07:39 | MRI_ITS ---
STUDY: MRI BRAIN WITHOUT CONTRAST REASON FOR EXAM: Female, 72 years old. Confusion. TECHNIQUE: Standardized multiplanar fat and water weighted pulse sequences were obtained. COMPARISON: None. FINDINGS: Normal size of the ventricles and extra-axial spaces for the patient's age. There are multiple white matter hyperintensities, distributed throughout the deep white matter tracts of the cerebral hemispheres, consistent with moderate chronic white matter ischemic changes. Normal bilateral basal ganglia. Normal thalami. There is no extra-axial fluid accumulation. Normal flow voids within the major intracranial circulation suggesting patency by spin echo criteria. Normal sella turcica, pituitary gland, infundibular stalk, optic chiasm and hypothalamus. Normal tectal plate and pineal gland. Normal midbrain, ro and medulla. Normal cerebellum. Normal basal cisterns. Normal bilateral temporal bones. Normal bilateral internal auditory canals. No demonstrated orbital abnormality, within the constraints of a routine brain study. Normal visualized paranasal sinuses. Normal calvarium and skull base. Normal visualized soft tissue structures. Normal visualized upper cervical spine. MRI/Brain without Contrast IMPRESSION: Involutional changes of the brain, as described above. Electronically Signed: Maggie Christensen MD at 9:52 EDT Tel , Service support ,
[2018-02-05] MEDS: Gabapentin 300 MG Capsule PO ×2 (07:48→12:41)
[2018-02-05] MEDS: Aspirin 81 MG TAB.CHEW PO (07:48)
[2018-02-05 09:00] LABS: Vitamin B12 273 pg/mL (211-911)
[2018-02-05] MEDS: predniSONE 20 MG Tablet 30 MG PO (09:34)
[2018-02-05] MEDS: Citalopram 40 MG TABLET PO (09:35)
[2018-02-05] MEDS: Famotidine 20 MG Tablet PO (09:35)
--- NOTE | 2018-02-05 10:07 | PCM.PN.NEU ---
Patient Problems: Active and Suspected Problems TIA (transient ischemic attack) (Acute) Subjective: no complaints, feels baseline - Physical Exam General: Alert HEENT: Atraumatic, PERRLA, EOMI, Normocephalic Neck: Supple, No JVD, Negative Carotid Bruits Lungs: Clear to auscultation, Normal air movement Cardiovascular: Regular rate, No murmurs Abdomen: Bowel Sounds Present, Soft, Non Tender Extremities: No edema, Capillary Refill Less than 3 Seconds Skin: No rashes, No breakdown Musculoskeletal: No Tenderness to Palpation of Joints or Extremities Neurological: Cranial nerves II-XII grossly intact Psych/Mental Status: Normal Affect, Appropriate Vital Signs Temp Pulse Resp BP Pulse Ox 36.7 C 90 18 122/63 H 94 02/05/18 07:45 02/05/18 07:45 02/05/18 07:45 02/05/18 07:45 02/05/18 07:45 Oxygen Flow Rate (L/min) 2 Oxygen Delivery Method Room Air Weight: 48.8 kg Body Mass Index (BMI) 19.6 Intake and Output for Last 24 Hours 02/03/18 02/04/18 02/05/18 23:59 23:59 23:59 Intake Total 922 / 922 2965 / 2965 788 / 788 Balance 922 / 922 2965 / 2965 788 / 788 Laboratory Tests Past 24 Hrs 02/04/18 02/05/18 05:35 05:25 Sodium 140 Potassium 4.1 Chloride 109 H Carbon Dioxide 23.0 Anion Gap 8 BUN 12 Creatinine 0.95 Estim Creat Clear Calc 41.24 Est GFR (MDRD) Af Amer 75 Est GFR (MDRD) Non-Af 62 BUN/Creatinine Ratio 12.7 Glucose 76 Calcium 8.1 L Vitamin B12 273 POC Glucose 02/05/18 02/04/18 02/04/18 06:55 21:39 16:32 POC Glucose 77 202 H 173 H 02/04/18 11:13 POC Glucose 106 mri reviewed, no acute, chronic mild subcortical white matter disease Current Medications Generic Name Dose Route Start Last Admin Trade Name Freq PRN Reason Stop Dose Admin Acetaminophen 650 mg 02/03/18 13:01 Tylenol PO Q4H PRN PRN Headache/Temp>99F Albuterol Sulfate 2.5 mg 02/03/18 13:01 Ventolin Aerosols INHALATION Q4H PRN PRN SOB &/OR WHEEZING Albuterol Sulfate 2.5 mg 02/04/18 10:30 02/05/18 06:45 Ventolin Aerosols INHALATION 2.5 mg Q6HWA.RT PRIMO Administration Aspirin 81 mg 02/03/18 13:01 02/05/18 07:48 Aspirin, Baby PO 81 mg DAILY@0800 PRIMO Administration Atorvastatin Calcium 20 mg 02/04/18 22:00 02/04/18 21:41 Lipitor PO 20 mg QHS PRIMO Administration Budesonide 0.5 mg 02/04/18 10:30 02/05/18 06:45 Pulmicort Aerosol INHALATION 0.5 mg Q12H.RT PRIMO Administration Citalopram Hydrobromide 40 mg 02/05/18 10:00 02/05/18 09:35 Celexa PO 40 mg DAILY PRIMO Administration Famotidine 20 mg 02/03/18 16:00 02/05/18 09:35 Pepcid PO 20 mg DAILY PRIMO Administration Gabapentin 300 mg 02/03/18 17:00 02/05/18 07:48 Neurontin PO 300 mg TIDCM PRIMO Administration Sodium Chloride 1,000 mls @ 75 mls/hr 02/03/18 13:01 02/04/18 23:49 IV 75 mls/hr .[id number] PRIMO Administration Levothyroxine Sodium 112 mcg 02/04/18 06:00 02/05/18 05:06 Synthroid PO 112 mcg DAILY@0600 PRIMO Administration Prednisone 30 mg 02/05/18 08:00 02/05/18 09:34 PO 02/14/18 07:59 30 mg DAILY@0800 PRIMO Administration Taper Promethazine HCl 25 mg 02/03/18 13:01 Phenergan Tablet PO Q6H PRN NAUSEA Sodium Chloride 5 - 30 ml 02/03/18 14:13 IV UD PRN SALINE FLUSH Medical Necessity - Tobacco Use Smoking Status: Former smoker Assessment/Plan Active and Suspected Problems TIA (transient ischemic attack) (Acute) anxiety vs tia vs migraine equivalent: resolved asa daily ok to dc if echo ok
--- NOTE | 2018-02-05 10:59 | CASEMGMT ---
This RN CM to bedside with POON form for pt at this time. POON form explained at this time, voices understanding and signs POON form at this time. Original to chart at this time and copy, along with copy of Medicare, 'Are you a Hospital Inpatient or Outpatient?' to pt at this time. Pt voices no further questions/concerns at this time. SStaten RN CM
--- NOTE | 2018-02-05 11:45 | PCM.DC ---
- Discharge Diagnoses Current Active Problems: Current Active and Chronic Problems TIA (transient ischemic attack) (Acute) COPD (chronic obstructive pulmonary disease) (Chronic) You will use the following diet at home:: Regular Discharge Activity: Return to Normal Activity Allergies/Adverse Reactions: Allergies ciprofloxacin [From Cipro] Allergy (Verified 02/03/18 09:04) Rash ciprofloxacin HCl [From Cipro] Allergy (Verified 02/03/18 09:04) Rash Penicillins Allergy (Verified 02/03/18 09:04) Hives codeine Adverse Reaction (Verified 02/03/18 09:04) makes her feel weird makes her feel weird NSAIDS (Non-Steroidal Anti-Inflamma Adverse Reaction (Verified 02/03/18 09:04) kidney damage r/t long-term usage advised not to use kidney damage r/t long-term usage advised not to use MAGNESIUM CITRATE Adverse Reaction (Uncoded 02/03/18 09:04) Nausea Medications to take at Discharge Levothyroxine [Synthroid] 112 mcg PO DAILY 02/02/15 Gabapentin [Neurontin] 300 mg PO BID 01/25/18 Albuterol IH (ProAir) [Proair Hfa] 1 puff INHALATION Q4H PRN PRN #1 inhaler 01/29/18 Budesonide/Formoterol 160/4.5 [Symbicort 160/4.5 Mcg Inhaler (SP)] 2 puff INHALATION BID #1 inhaler 01/29/18 Prednisone 10 mg PO UD #30 tab 01/29/18 Ergocalciferol [Vitamin D] 50,000 unit PO SUMOWE 02/03/18 Lorazepam [Ativan] 1 tab PO 4X/DAY PRN PRN 02/03/18 Oxycodone 1 tab PO TID 02/03/18 Aspirin [Aspirin, Baby] 81 mg PO DAILY@0800 tab.chew 02/05/18 Atorvastatin Calcium [Lipitor] 20 mg PO QHS tablet 02/05/18 Primary Care Physician: Adis Mireles MD [Primary Care Provider] - Proposed Discharge Date: 02/05/18
--- NOTE | 2018-02-05 11:46 | PCM.DC.SUM ---
Discharge Date and Diagnosis Date of Admission: 02/03/18 Date of Discharge: 02/05/18 - Primary Discharge Diagnosis Active and Suspected Problems TIA (transient ischemic attack) (Acute) - Secondary Discharge Diagnosis Chronic Problems Hypothyroidism (Chronic) Anxiety (Chronic) Depression (Chronic) Nicotine abuse (Chronic) COPD (chronic obstructive pulmonary disease) (Chronic) Chronic bronchitis (Chronic) Hydronephrosis, right (Chronic) History of rectal cancer (Chronic) Hospital Course and Treatment Imaging Results: 02/05/18 07:39 Brain without Contrast [MRI] Routine Summary of Care Provided: The patient is a 72 year old F with history of multiple comorbidities including COPD was just discharged on 01/29/2018 for COPD exacerbation secondary to acute rhinovirus bronchitis and was sent home on home oxygen came to ER today when she was having sudden onset of comprehension of recipe which she had made several times in the past. She did not had problem in motor part of the speech was having difficulty in understanding the written speech. CT scan of the brain done in the emergency room was nonacute. She was placed in the hospital for TIA workup. Allergies was consulted and MRI of the brain was nonacute. Echocardiogram and carotid Doppler ultrasound were also unremarkable. He was recommended aspirin 81 mg daily and Lipitor 20 mg daily. She was discharged home in a stable condition. Discharge Diet: No Restrictions Discharge Activity: Return to Normal Activity Home Medications: Medications to take at Discharge Levothyroxine [Synthroid] 112 mcg PO DAILY 02/02/15 Gabapentin [Neurontin] 300 mg PO BID 01/25/18 Albuterol IH (ProAir) [Proair Hfa] 1 puff INHALATION Q4H PRN PRN #1 inhaler 01/29/18 Budesonide/Formoterol 160/4.5 [Symbicort 160/4.5 Mcg Inhaler (SP)] 2 puff INHALATION BID #1 inhaler 01/29/18 Prednisone 10 mg PO UD #30 tab 01/29/18 Ergocalciferol [Vitamin D] 50,000 unit PO SUMOWE 02/03/18 Lorazepam [Ativan] 1 tab PO 4X/DAY PRN PRN 02/03/18 Oxycodone 1 tab PO TID 02/03/18 Aspirin [Aspirin, Baby] 81 mg PO DAILY@0800 tab.chew 02/05/18 Atorvastatin Calcium [Lipitor] 20 mg PO QHS tablet 02/05/18 Citalopram [Celexa] 40 mg PO DAILY tablet 02/05/18 Primary Care Physician: Adis Mireles MD [Primary Care Provider] - Medical Necessity - Tobacco Use Smoking Status: Former smoker Meaningful Use Info Meaningful Use Diagnoses (Choose all that apply): None applicable Code Visit Inpatient E&M: 84970 Disch Hosp
[2018-02-05 12:06] LABS: Bedside Glucose 88 mg/dL (70-110)
== END 2018-02-05 14:32 | disposition home or self-care (01) ==
LOC: ED 09:58 → PCU 12:22
PROVIDERS: Admitting Provider Internal Medicine; Emergency Provider Emergency Medicine; Family Provider Internal Medicine; PCP Internal Medicine; Visit Provider Internal Medicine
DX: G45.9 Transient cerebral ischemic attack, unspecified (principal); J44.9 Chronic obstructive pulmonary disease, unspecified; E03.9 Hypothyroidism, unspecified; F32.9 Major depressive disorder, single episode, unspecified; G62.9 Polyneuropathy, unspecified; J96.01 Acute respiratory failure with hypoxia; F41.9 Anxiety disorder, unspecified; Z99.81 Dependence on supplemental oxygen; Z85.048 Personal history of other malignant neoplasm of rectum, rectosigmoid junction, and anus; Z87.891 Personal history of nicotine dependence; Z79.51 Long term (current) use of inhaled steroids; Z79.899 Other long term (current) drug therapy; R47.89 Other speech disturbances
CPT/HCPCS: 36415; 70450; 70551; 80048; 80061; 80076; 80307; 81001; 82140; 82607; 82746; 82962; 84439; 84443; 84484; 85025; 92523; 93005; 93306; 93880; 94640; 96360; 96361; 97161; 97165; 97802; 99218; 99283; 99406; J7030; A4216; G0378; G8979; G8988; G8989

== ENCOUNTER → 2018-03-23 08:59 | Outpatient (CLI) | payer MEDICARE, OTHER, SELFPAY ==
[2018-03-23 09:29] VITALS: PULSE 74; PULSE 75; PULSE 82; PULSE 83; PULSE 86; PULSE 87; PULSE 88; O2SAT 93; O2SAT 94; O2SAT 95; O2SAT 96
--- NOTE | 2018-03-23 14:34 | WT_ITS ---
PSN 6 Minute Walk Test - 6 Minute Walk Test 6 Minute Walk Test: 6 Minute Walk Test PSN:6-Minute Walk Test Start: 03/23/18 09: 29 Freq: Status: Active Protocol: [id number] Document 03/23/18 09:29 RICHY (Rec: 03/23/18 09:31 RICHY [id number]) 6 Minute Walk Test Date Performed 03/23/18 Time Performed 09:00 Height 5 ft 2 in Weight: 50.802 kg Weight in Pounds 112.[address]: Mayco Santos Assistive device used: None Pre-test Oxygen Delivery Method Room Air Pulse Ox (%) 96 Pulse Rate (60-100 beats/min) 75 Dyspnea Annie Scale (0-10) 0.5 Exertion Annie Scale (6-20) 6 1st minute Oxygen Delivery Method Room Air Pulse Ox (%) 95 Pulse Rate (60-100 beats/min) 82 2nd minute Oxygen Delivery Method Room Air Pulse Ox (%) 94 Pulse Rate (60-100 beats/min) 83 3rd minute Oxygen Delivery Method Room Air Pulse Ox (%) 93 Pulse Rate (60-100 beats/min) 86 4th minute Oxygen Delivery Method Room Air Pulse Ox (%) 93 Pulse Rate (60-100 beats/min) 87 5th minute Oxygen Delivery Method Room Air Pulse Ox (%) 94 Pulse Rate (60-100 beats/min) 88 6th minute Oxygen Delivery Method Room Air Pulse Ox (%) 93 Pulse Rate (60-100 beats/min) 88 Dyspnea Annie Scale (0-10) 1 Exertion Annie Scale (6-20) 13 Post-test Oxygen Delivery Method Room Air Pulse Ox (%) 96 Pulse Rate (60-100 beats/min) 74 Full Laps Walked 13 Partial Lap, Number of Tiles Walked 16 Total Distance Walked (ft) 783 - Interpretation Interpretation: The patient was able to evaluate 783 feet over the course of 6 minutes on room air with no assistive devices or breaks. Patient did not experience any significant tachycardia or desaturation during testing. These findings are consistent with a musculoskeletal limitation exercise tolerance. - Recommendations Recommendations: No supplemental oxygen is indicated at this time.
== END ==
PROVIDERS: Family Provider Internal Medicine; PCP Internal Medicine; Visit Provider Internal Medicine Critical Care Medicine
DX: J44.9 Chronic obstructive pulmonary disease, unspecified (principal)
CPT/HCPCS: 94618

== ENCOUNTER → 2018-04-03 06:51 | Outpatient (CLI) | payer MEDICARE, OTHER, SELFPAY ==
--- NOTE | 2018-04-03 10:27 | PFTCOMP ---
COMPLETE PULMONARY FUNCTION TEST INTERPRETATION Brief HPI: Patient is a 72 year old female, currently under the care of Dr. Santos, who presents to [facility] for complete pulmonary function tests secondary to diagnosis of COPD. Respiratory therapist reports good effort and reproducible results. Interpretation: Forced expiration spirometry shows a moderate large airways obstructive ventilatory defect with an FEV1 of 68% predicted. There is a significant bronchodilator response in FEV1 by ATS criteria. Spirograms are of good quality and plateau slowly, indicating slowly emptying areas of the lungs. The respiratory flow volume loop shows decreased expiratory flow rates at all lung volumes consistent with airway obstruction. Lung volumes by body plethysmography show an elevated total lung capacity at 5.38 L, 122% predicted. FRC and RV are elevated out of proportion. Lung volume measurements are consistent with hyperinflation and air-trapping. Diffusion capacity by carbon monoxide is at the lower limit of normal at 53% predicted. The airway resistance is elevated. No previous pulmonary function tests were available for review. Impression: Partially reversible moderate large airways obstructive ventilatory defect with a symmetric reduction diffusing capacity consistent with a COPD/asthma overlap syndrome.
--- NOTE | 2018-04-03 10:30 | PFTCOMP_ITS ---
COMPLETE PULMONARY FUNCTION TEST INTERPRETATION Brief HPI: Patient is a 72 year old female, currently under the care of Dr. Santos , who presents to [facility] for complete pulmonary function tests secondary to diagnosis of COPD. Respiratory therapist reports good effort and reproducible results. Interpretation: Forced expiration spirometry shows a moderate large airways obstructive ventilatory defect with an FEV1 of 68% predicted. There is a significant bronchodilator response in FEV1 by ATS criteria. Spirograms are of good quality and plateau slowly, indicating slowly emptying areas of the lungs. The respiratory flow volume loop shows decreased expiratory flow rates at all lung volumes consistent with airway obstruction. Lung volumes by body plethysmography show an elevated total lung capacity at 5.38 L, 122% predicted. FRC and RV are elevated out of proportion. Lung volume measurements are consistent with hyperinflation and air-trapping. Diffusion capacity by carbon monoxide is at the lower limit of normal at 53% predicted. The airway resistance is elevated. No previous pulmonary function tests were available for review. Impression: Partially reversible moderate large airways obstructive ventilatory defect with a symmetric reduction diffusing capacity consistent with a COPD/asthma overlap syndrome.
== END ==
PROVIDERS: Family Provider Internal Medicine; PCP Internal Medicine; Visit Provider Internal Medicine Critical Care Medicine
DX: J44.9 Chronic obstructive pulmonary disease, unspecified (principal)
CPT/HCPCS: 94060; 94726; 94729

== ENCOUNTER → 2018-06-12 12:50 | Outpatient (CLI) | payer MEDICARE, OTHER, SELFPAY ==
[2018-06-12 14:21] LABS: Basophil# 0.01 X10^3/uL; Basophil% 0.1 % (0-1); Eosinophil# 0.27 X10^3/uL; Eosinophils% 2.9 % (0-5); Hemoglobin 14.2 g/dl (12.0-15.0); Lymphocyte % 35.8 % (19-41); Mean Corpuscular Hgb 29.9 pg (27.0-32.0); Mean Corpuscular Volume 90.5 fL (81-99); Mean Platelet Vol. 9.9 fl (6.2-12.0); Monocyte# 0.62 X10^3/uL; Monocyte% 6.7 % (0-10); Neutrophil # 5.01 X10^3/uL (2.7-7.7); Neutrophil % 54.4 % (47-70); Platelet Count 212 K/mm3 (150-450); RBC Distribution Width CV 13.6 % (11.6-14.6); RBC Distribution Width SD 45.1 fl (35.1-43.9); Red Blood Count 4.75 M/mm3 (4.2-5.4); White Blood Count 9.2 K/mm3 (4.4-11.0)
[2018-06-12 14:23] LABS: POSITIVE COUNT NO; POSITIVE DIFFERENTIAL NO; POSITIVE MORPHOLOGY NO
[2018-06-12 14:27] LABS: BUN 13 mg/dL (7-18); BUN/Creat Ratio 10.6 RATIO (10-20); Calcium,Total 9.1 mg/dL (8.5-10.1); Chloride 110 mmol/L (98-107); Creatinine, Serum 1.23 mg/dL (0.55-1.02); EST Glomerular Filtration Rate 46 mL/min (>60); Est Glom Filt Rate - Afr Amer 55 mL/min (>60); Glucose 86 mg/dL (74-106); Magnesium 1.8 mg/dL (1.6-2.6); Phosphorus 3.8 mg/dL (2.5-4.9); Potassium 3.5 mmol/L (3.5-5.1); Sodium Level 139 mmol/L (136-145)
[2018-06-12 14:37] LABS: Microalbumin,Random Urine 43.9 mg/L (NO RANGE EST.); Microalbumin:Creatinine Ratio 34.3 mg/g CRE (<30 mg/g CRE)
[2018-06-13 10:00] LABS: PTHIN 34.5 pg/mL (18.4-80.1)
== END ==
PROVIDERS: Family Provider Internal Medicine; PCP Internal Medicine; Visit Provider Internal Medicine Nephrology
DX: N18.3 Chronic kidney disease, stage 3 (moderate) (principal); D63.1 Anemia in chronic kidney disease
CPT/HCPCS: 36415; 80069; 82043; 82306; 82570; 83735; 83970; 85025

== ENCOUNTER 2019-04-23 22:10 | Inpatient (IN) | payer MEDICARE, OTHER, SELFPAY ==
[2018-11-28 12:49] VITALS: BMI 20.2
[2019-04-23 22:11] VITALS: BP 142/73; PULSE 69; RESP 16; TEMP 36.8; O2SAT 93; BMI 22.3
--- NOTE | 2019-04-23 22:22 | CT_ITS ---
STUDY: CT ABDOMEN AND PELVIS WITHOUT CONTRAST REASON FOR EXAM: Female, 73 years old. Right flank pain RADIATION DOSAGE (If Supplied By Facility): CTDIvol = ( 6.48 ) mGy, DLP = ( 297.66 ) mGycm TECHNIQUE: Transaxial images were obtained from the dome of the diaphragm to the symphysis pubis without oral contrast, and without intravenous contrast. Sagittal and coronal images were reconstructed. Individualized dose optimization techniques were used for this CT. COMPARISON: CT 01/27/2018 FINDINGS: The visualized lung bases are unremarkable. The visualized portions of the heart are within normal limits. There is a small subcentimeter pericardial effusion. Normal liver. Normal gallbladder and extrahepatic biliary system. Normal spleen. There is a 3.8 mm dilation of the proximal pancreatic duct. Normal bilateral adrenal glands. There is Moderate to severe right hydronephrosis. There is new 4 mm calculus in the distal right ureter at the ureterovesical junction. There is also new linear calculus in the distal right ureter measuring 5.6 mm in length by 2 mm in mediolateral diameter. There is 6 mm x 2.7 mm calculus distal left ureter. There is 6.3 x 3.4 mm additional calculus within the distal left ureter. There is a 2.7 x 2.5 mm additional calculus within the distal left ureter with moderate to severe right hydronephrosis and right hydroureter with moderate left hydronephrosis and hydroureter.. Normal visualized stomach. There are mild distended loops of small bowel without transition point. Normal colon. There is a left pelvic ostomy with peristomal hernia. There is surgical staple line in the pelvis. Normal abdominal aorta. Normal inferior vena cava. Normal retroperitoneum. Normal urinary bladder. Normal osseous structures. Stable postsurgical stranding within the presacral region CT/Abdomen/Pelvis without Cont IMPRESSION: Bilateral obstructing distal ureteral calculi as above Moderate to severe right hydronephrosis and moderate left hydronephrosis with bilateral hydroureters Mild dilatation of the proximal pancreatic duct which appears slightly more prominent when compared to prior exam, further evaluation with multiphase MRI and MRCP recommended New small subcentimeter pericardial effusion Mild distended loops of small bowel without transition point surgical marybeth in the pelvis, left pelvic ostomy with small parastomal hernia Electronically Signed: Brandyn Mccray, at 23:44 EDT Tel , Service support ,
[2019-04-23 22:42] LABS: Absolute Lymphocyte Count 3.12 X10^3/ul (0.83-4.51); Absolute Neutrophil Count 5.4 X10^3/uL (2.0-7.7); Basophil# 0.01 X10^3/uL; Basophil% 0.1 % (0-1); Eosinophil# 0.21 X10^3/uL; Eosinophils% 2.2 % (0-5); Hematocrit 42.6 % (37-47); Lymphocyte # 3.12 X10^3/ul (4.0); Lymphocyte % 32.8 % (19-41); Mean Corp Hgb Conc 32.9 g/gl (32-36); Mean Corpuscular Hgb 30.6 pg (27.0-32.0); Mean Platelet Vol. 8.5 fl (6.2-12.0); Monocyte# 0.72 X10^3/uL; Monocyte% 7.6 % (0-10); Neutrophil # 5.43 X10^3/uL (2.7-7.7); Neutrophil % 57.1 % (47-70); Platelet Count 206 K/mm3 (150-450); RBC Distribution Width CV 14.7 % (11.6-14.6); RBC Distribution Width SD 49.8 fl (35.1-43.9); Red Blood Count 4.58 M/mm3 (4.2-5.4); White Blood Count 9.5 K/mm3 (4.4-11.0)
[2019-04-23 22:43] LABS: POSITIVE COUNT NO; POSITIVE DIFFERENTIAL NO; POSITIVE MORPHOLOGY NO
--- NOTE | 2019-04-23 22:50 | ED.DCSUM_ITS ---
History of Present Illness Chief Complaint: Flank Pain Informant: Patient Onset: Days - 2 Narrative: Progressive right flank pain for 2 days. Nausea without vomiting. States today had mild left flank pain however that resolved. States that hematuria 2 days ago. History of multiple kidney stones in the past she states her last intervention with a stent was with Dr. Yap before he retired. Currently seen by Dr. Gray. No fevers. No dysuria. Reports pain is a 9. History of CKD. History of bowel resection with colostomy. States that cancer in the past. States feels like her previous kidney stones. Prior similar symptoms: Yes Past Medical History - Allergies and Home Meds Allergies/Adverse Reactions: Allergies ciprofloxacin [From Cipro] Allergy (Verified 11/28/18 12:50) Rash ciprofloxacin HCl [From Cipro] Allergy (Verified 11/28/18 12:50) Rash Penicillins Allergy (Verified 11/28/18 12:50) Hives codeine Adverse Reaction (Verified 11/28/18 12:50) makes her feel weird makes her feel weird NSAIDS (Non-Steroidal Anti-Inflamma Adverse Reaction (Verified 11/28/18 12:50) kidney damage r/t long-term usage advised not to use kidney damage r/t long-term usage advised not to use MAGNESIUM CITRATE Adverse Reaction (Uncoded 11/28/18 12:50) Nausea Primary Care Physician: Adis Mireles MD [Primary Care Provider] - Surgical History: cholecystectomy, tonsillectomy, - - bowel resection, colostomy Smoking Status: Unknown if ever smoked - Family History Maternal Family History: Reports: COPD, Heart Disease Sibling Family History: Reports: Diabetes Paternal Family History: Reports: Heart Disease Review of Systems General: Denies: Chills, Fever, Sweats Eyes: Denies: Visual changes - bilaterally, Diplopia ENT: Denies: Rhinorrhea, Sore throat Cardiovascular: Denies: Chest pain, Palpitations Respiratory: Denies: Dyspnea, Cough, Dyspnea on exertion Gastrointestinal: Reports: Nausea. Denies: Abdominal pain, Vomiting, Diarrhea, Melena, Hematochezia Genitourinary: Denies: Dysuria, Hematuria, Frequency Musculoskeletal: Reports: Back pain. Denies: Extremity Pain Skin: Denies: Rash, Wounds Neurological: Denies: Headache, Weakness, Numbness Physical Exam Vital Signs/Narrative: Vital Signs Temp Pulse Resp BP Pulse Ox 04/23/19 22:11 98.3 F 69 16 142/73 H 93 Inital Vital Signs reviewed: Yes General: Well nourished, Well developed, No Acute Distress Head: Normocephalic, Atraumatic Eyes: Perrl, EOMI ENT: Moist mucous membranes, No rhinorrhea Neck: Supple, Nontender Cardiovascular: Regular rate, Regular rhythm, No murmurs Respiratory: No distress, CTA bilaterally, Chest nontender Abdomen: Soft, Nontender, Nondistended, Normal bowel sounds Back: Nontender, Normal Inspection, - - No rash.. Negative for: CVA tenderness Extremities: Nontender, No edema Skin: Normal color, No rash Neurological: Alert, Oriented x3, Cranial nerves II-XII grossly intact, Normal Strength, Normal Sensation Psychological: Normal affect, Normal Mood Diagnostic/Tx/Re-eval Abnormal Lab Results 04/23/19 04/23/19 04/23/19 22:30 22:30 23:00 WBC 9.5 RBC 4.58 Hgb 14.0 Hct 42.6 MCV 93.0 MCH 30.6 MCHC 32.9 RDW 14.7 H RDW Differential 49.8 H Plt Count 206 MPV 8.5 Immature Gran % (Auto) 0.200 Neut % (Auto) 57.1 Lymph % (Auto) 32.8 [place] % (Auto) 7.6 Eos % (Auto) 2.2 Baso % (Auto) 0.1 Absolute Neuts (auto) 5.4 Absolute Lymphs (auto) 3.12 Total Counted Not Reportable Sodium 140 Potassium 3.9 Chloride 110 H Carbon Dioxide 21.0 Anion Gap 9 BUN 22 H Creatinine 1.67 H Estim Creat Clear Calc 22.64 Est GFR (MDRD) Af Amer 39 L Est GFR (MDRD) Non-Af 32 L BUN/Creatinine Ratio 13.2 Glucose 97 Calcium 8.8 Urine Color Yellow Urine Clarity Sl. Cloudy Urine pH 6.0 Ur Specific [place] 1.020 Urine Protein 30 H Urine Glucose (UA) Normal Urine Ketones Negative Urine Occult Blood 250 H Urine Nitrite Negative Urine Bilirubin Negative Urine Urobilinogen Normal Ur Leukocyte Esterase 100 H Urine RBC 50-100 SEEN Urine WBC 10-25 SEEN Ur Squamous Epith Cells 0-5 SEEN Urine Bacteria 0 SEEN Urine Mucus [address] abdomen pelvis: There is Moderate to severe right hydronephrosis. There is new 4 mm calculus in the distal right ureter at the ureterovesical junction. There is also new linear calculus in the distal right ureter measuring 5.6 mm in length by 2 mm in mediolateral diameter. There is 6 mm x 2.7 mm calculus distal left ureter. There is 6.3 x 3.4 mm additional calculus within the distal left ureter. There is a 2.7 x 2.5 mm additional calculus within the distal left ureter with moderate to severe right hydronephrosis and right hydroureter with moderate left hydronephrosis and hydroureter.. - Medical Decision Making Patient no acute distress on exam nontoxic. History of kidney stones in the past work-up initiated. History of morphine Zofran, NSAIDs held with known history of CKD. Normal white count creatinine 1.67 up from 1.23 a year ago. Urine did note signs of infection with leukocytes and white cells. Urine culture sent. She started on Rocephin. CT scan results per radiology notes bilateral obstructing stones with severe hydro-on the right moderate on the left. 2 stones in each ureter. Reported mild dilatation and pancreatic duct, she has no mid abdominal pain or vomiting. I spoke with covering urologist Dr. Morrison covering for Dr. Gray who is currently out of town. Will admit to her service. Should be kept n.p.o. Likely procedure in the morning. Pain is controlled. Family and patient updated. ED Disposition - Plan for ED Patient: Disposition: Acute Care [facility] Diagnosis: Bilateral obstructing urolithiasis, Urinary tract infection, Acute kidney injury Referrals: Adis Mireles MD [Primary Care Provider] -
[2019-04-23 22:53] LABS: Anion Gap 9 (5-15); BUN 22 mg/dL (7-18); BUN/Creat Ratio 13.2 RATIO (10-20); Calcium,Total 8.8 mg/dL (8.5-10.1); Chloride 110 mmol/L (98-107); Creatinine, Serum 1.67 mg/dL (0.55-1.02); EST Glomerular Filtration Rate 32 mL/min (>60); Est Glom Filt Rate - Afr Amer 39 mL/min (>60); Estimated Creatinine Clearance 22.64 ml/min; Glucose 97 mg/dL (74-106); Potassium 3.9 mmol/L (3.5-5.1); Sodium Level 140 mmol/L (136-145)
[2019-04-23] MEDS: Ondansetron 4 MG/2 ML Vial IV (22:55)
[2019-04-23] MEDS: 0.9% Normal Saline 1,000 ML 250 ML IV (22:55)
[2019-04-23] MEDS: Morphine 4 MG/ML Syringe IV (22:55)
[2019-04-23 23:03] LABS: Bacteria 0 SEEN /hpf (None Seen); Color, Urine Yellow (Yellow); Glucose, Dipstick Normal (Normal); Ketone-Dipstick Negative (Negative); Leukocyte Esterase-Dipstick 100 /ul (Negative); Mucous, Urine 0 SEEN /hpf (<or=2+); Nitrite-Dipstick Negative (Negative); Occult Blood-Urine 250 /ul (Negative); Protein-Dipstick 30 mg/dl (Negative); Urine Bilirubin Dipstick Negative (Negative); Urine Clarity Sl. Cloudy (Clear); Urine Urobilinogen Normal (Normal)
[2019-04-23 23:12] LABS: Red Blood Cells-Urine 50-100 SEEN /hpf (0-5); Squamous Epithelial Cells - UA 0-5 SEEN /hpf (5-10); White Blood Cells 10-25 SEEN /hpf (0-5)
[2019-04-23] MEDS: Ceftriaxone 1 GM/50 ML BAG IV (23:47)
[2019-04-24] VITALS (12 sets, daily range): BP systolic 95–136; BP diastolic 60–80; PULSE 63–89; RESP 16–18; TEMP 36.4–36.8; O2SAT 93–99; BMI 20.9
[2019-04-24] MEDS: proMETHazine 25 MG/ML Syringe 6.25 MG IV (00:25)
[2019-04-24] MEDS: Dext 5%-0.45% NS 1,000 ML 100 ML IV ×3 (01:33→21:00)
[2019-04-24] MEDS: 0.9% NaCl Peripheral Flush Adult/Peds IV ×2 (02:00→10:48)
[2019-04-24] MEDS: Morphine 2 MG/ML Syringe IV (02:00)
--- NOTE | 2019-04-24 05:55 | EKG12_ITS ---
Test Reason : AM EKG Blood Pressure : / mmHG Vent. Rate : 064 BPM Atrial Rate : 064 BPM P-R Int : 204 ms QRS Dur : 074 ms QT Int : 400 ms P-R-T Axes : 075 -14 079 degrees QTc Int : 412 ms Normal sinus rhythm Nonspecific T wave abnormality Abnormal ECG When compared with ECG of 03-FEB-2018 15:40, Nonspecific T wave abnormality now evident in Anterior leads Confirmed by KATLYN TERRAZAS, BAO ([id number]), news videotape editor AFTAB GARCIA ([id number]) on 04/30/2019 8:17:16 AM Referred By: JAISON Confirmed By:BAO POTTS MD
[2019-04-24] MEDS: Levothyroxine 112 MCG Tablet PO (06:23)
[2019-04-24] MEDS: Cefazolin 1 GM/50 ML BAG IV ×3 (06:23→22:49)
--- NOTE | 2019-04-24 07:04 | NURSING ---
Handoff given to AC nurse. Pt just received last CHG bath. Sent to OR via OR staff at 0702hrs. Pt stated she contacted her daughter.
--- NOTE | 2019-04-24 07:36 | PCA ---
pt off floor
--- NOTE | 2019-04-24 08:11 | PCM.HP.STD ---
Problem List (1) Bilateral ureteral calculi Status: Acute (2) Hydronephrosis due to obstruction of ureter Status: Acute (3) Urinary tract infection Status: Acute History of Present Illness Date of Admission: 04/24/19 Chief Complaint: abdominal pain, nausea The patient is a 73 year old F with a long-standing history of nephrolithiasis. She normally is able to pass stones on her own volition. She has a history of a rectal carcinoma status post pelvic radiation. She has poor absorption and chronic diarrhea and subsequently underwent a colostomy. Due to this malabsorption, she has multiple kidney stones. A few days ago she began to have abdominal pain that subsequently worsened and became associated with nausea. It started with just the right side and then became bilateral. Her urinary output significantly decreased. At this time the patient was brought to the emergency room. She did not have fever or chills at home. Past Medical History Past Medical History (Chronic Problems): Chronic Problems (Last Reviewed 04/24/19 @ 08:12 by Minal Morrison MD) Hypothyroidism (Chronic) Anxiety (Chronic) Depression (Chronic) Nicotine abuse (Chronic) COPD (chronic obstructive pulmonary disease) (Chronic) Chronic bronchitis (Chronic) Hydronephrosis, right (Chronic) History of rectal cancer (Chronic) Medical History: Medical History (Last Reviewed 04/24/19 @ 08:12 by Minal Morrison MD) History of hysterectomy (Resolved) Z90.710 COPD exacerbation (Acute) J44.1 Hypothyroidism (Chronic) E03.9 Anxiety (Chronic) F41.9 Depression (Chronic) F32.9 Nicotine abuse (Chronic) Z72.0 TIA (transient ischemic attack) (Acute) G45.9 COPD (chronic obstructive pulmonary disease) (Chronic) J44.9 Chronic bronchitis (Chronic) J42 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 calculus (Acute) N20.1 Hydronephrosis, right (Chronic) N13.30 Filling defect on imaging study (Acute) R93.8 Filling defect in proximal right colon on CT abdomen History of rectal cancer (Chronic) Z85.048 Allergies ciprofloxacin [From Cipro] Allergy (Verified 11/28/18 12:50) Rash ciprofloxacin HCl [From Cipro] Allergy (Verified 11/28/18 12:50) Rash Penicillins Allergy (Verified 11/28/18 12:50) Hives codeine Adverse Reaction (Verified 11/28/18 12:50) makes her feel weird makes her feel weird NSAIDS (Non-Steroidal Anti-Inflamma Adverse Reaction (Verified 11/28/18 12:50) kidney damage r/t long-term usage advised not to use kidney damage r/t long-term usage advised not to use MAGNESIUM CITRATE Adverse Reaction (Uncoded 11/28/18 12:50) Nausea Home Medications: Ambulatory Orders Medication Instructions Recorded Levothyroxine [Synthroid] 112 mcg PO DAILY 02/02/15 Albuterol IH (ProAir) [Proair Hfa] 1 puff INHALATION Q4H PRN PRN #1 01/29/18 inhaler bupropion HCl XL 150 mg 24 hr 150 mg PO QAM 11/28/18 tablet, extended release Citalopram [Celexa] 40 mg PO DAILY 04/24/19 Surgical History: Surgical History (Last Reviewed 11/28/18 @ 12:52 by Summer Vásquez) History of colostomy (Resolved) Z98.890 History of cholecystectomy (Resolved) Z90.49 History of bowel resection (Resolved) Z98.890, Z90.49 History of delivery (Resolved) Z98.891 Surgical History: cholecystectomy, tonsillectomy, - - bowel resection, colostomy Psychiatric History: No pertinent psych hx 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 Denies: Dysuria Gynecological: Denies: Vaginal itching Skin: Denies: Rash Neurological: Denies: Confusion Endocrine: Denies: Change in Body Habitus VTE Information - Inpt Only VTE Present on Admission: Yes VTE Mechan Device Prophylaxis: SCD's VTE Pharm Prophylaxis ordered?: No Reason prophylaxis not ordered:: Treatment Not Indicated Patient Problems: Active and Suspected Problems (Last Reviewed 04/24/19 @ 08:12 by Minal Morrison MD) Urinary tract infection (Acute) Acute kidney injury (Acute) Bilateral ureteral calculi (Acute) Hydronephrosis due to obstruction of ureter (Acute) - Physical Exam General: Alert, Oriented x3, Cooperative, No apparent distress HEENT: Atraumatic, Normocephalic Oral: Dry Mucosa Neck: Supple Lungs: Normal air movement Cardiovascular: Regular rate, Regular Rhythm Abdomen: Soft, Tender Skin: No rashes Musculoskeletal: No Tenderness to Palpation of Joints or Extremities Neurological: Cranial nerves II-XII grossly intact, Neuro grossly intact Vital Signs Temp Pulse Resp BP Pulse Ox 98 F 64 18 95/65 94 04/24/19 06:38 04/24/19 06:38 04/24/19 06:38 04/24/19 06:38 04/24/19 06:38 Oxygen Delivery Method Room Air Weight: 51.8 kg Body Mass Index (BMI) 20.9 Finger Stick Blood Glucose 92 Intake and Output for Last 24 Hours 04/22/19 04/23/19 04/24/19 23:59 23:59 23:59 Intake Total 543 / 543 Output Total 500 / 500 Balance 43 / 43 Laboratory Tests Past 24 Hrs 04/23/19 04/23/19 04/23/19 22:30 22:30 23:00 WBC 9.5 RBC 4.58 Hgb 14.0 Hct 42.6 MCV 93.0 MCH 30.6 MCHC 32.9 RDW 14.7 H RDW Differential 49.8 H Plt Count 206 MPV 8.5 Immature Gran % (Auto) 0.200 Neut % (Auto) 57.1 Lymph % (Auto) 32.8 [place] % (Auto) 7.6 Eos % (Auto) 2.2 Baso % (Auto) 0.1 Absolute Neuts (auto) 5.4 Absolute Lymphs (auto) 3.12 Total Counted Not Reportable Sodium 140 Potassium 3.9 Chloride 110 H Carbon Dioxide 21.0 Anion Gap 9 BUN 22 H Creatinine 1.67 H Estim Creat Clear Calc 22.64 Est GFR (MDRD) Af Amer 39 L Est GFR (MDRD) Non-Af 32 L BUN/Creatinine Ratio 13.2 Glucose 97 Calcium 8.8 TSH Urine Color Yellow Urine Clarity Sl. Cloudy Urine pH 6.0 Ur Specific Arcade 1.020 Urine Protein 30 H Urine Glucose (UA) Normal Urine Ketones Negative Urine Occult Blood 250 H Urine Nitrite Negative Urine Bilirubin Negative Urine Urobilinogen Normal Ur Leukocyte Esterase 100 H Urine RBC 50-100 SEEN Urine WBC 10-25 SEEN Ur Squamous Epith Cells 0-5 SEEN Urine Bacteria 0 SEEN Urine Mucus 0 SEEN 04/24/19 05:54 WBC RBC Hgb Hct MCV MCH MCHC RDW RDW Differential Plt Count MPV Immature Gran % (Auto) Neut % (Auto) Lymph % (Auto) [place] % (Auto) Eos % (Auto) Baso % (Auto) Absolute Neuts (auto) Absolute Lymphs (auto) Total Counted Sodium Potassium Chloride Carbon Dioxide Anion Gap BUN Creatinine Estim Creat Clear Calc Est GFR (MDRD) Af Amer Est GFR (MDRD) Non-Af BUN/Creatinine Ratio Glucose Calcium TSH 18.60 H Urine Color Urine Clarity Urine pH Ur Specific Arcade Urine Protein Urine Glucose (UA) Urine Ketones Urine Occult Blood Urine Nitrite Urine Bilirubin Urine Urobilinogen Ur Leukocyte Esterase Urine RBC Urine WBC Ur Squamous Epith Cells Urine Bacteria Urine Mucus CT report and images reviewed. Bilateral distal ureteral calculi with associated hydronephrosis and elevation of Cr. Assessment/Plan All Active Problems (Last Reviewed 04/24/19 @ 08:12 by Minal Morrison MD) Urinary tract infection (Acute) Acute kidney injury (Acute) Bilateral ureteral calculi (Acute) Hydronephrosis due to obstruction of ureter (Acute) Asthma-COPD overlap syndrome (Acute) History of colostomy (Resolved) History of cholecystectomy (Resolved) History of bowel resection (Resolved) History of hysterectomy (Resolved) History of delivery (Resolved) COPD exacerbation (Acute) TIA (transient ischemic attack) (Acute) 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 calculus (Acute) Filling defect on imaging study (Acute) Cystoscopy with bilateral ureteral stent insertion. Risks and benefits discussed, including risks of anesthesia, pain, injury, bleeding and infection. Daughter present as well. Informed consent obtained. Treatment of stones will be at a later date after Cr nadirs and urine cleared of infection.
[2019-04-24] MEDS: Lidocaine Jelly 2% 20 ML Syringe (URO-JET) 20 APPLIC (08:19)
--- NOTE | 2019-04-24 08:52 | OP.PCM_ITS ---
Problem List (1) Bilateral ureteral calculi Status: Acute (2) Hydronephrosis due to obstruction of ureter Status: Acute (3) Urinary tract infection Status: Acute Report of Operation Date of Procedure: 04/24/19 Pre-Operative Diagnosis: Bilateral ureteral calculi with bilateral hydronephrosis and acute renal insufficiency, urinary tract infection Post-Operative Diagnosis: Same Surgery/Procedure Performed:: Cystoscopy with insertion of bilateral ureteral stents Description of Surgical Findings:: The patient external genitalia, urethra and bladder are visually consistent with pelvic radiation. Bilateral ureteral stents were inserted without difficulty and urine was seen coming from each stent. 6 x 22 stents were used. Type of Anesthesia:: MAC Special Medications: Ancef Estimated Blood Loss (mL): 5 cc Description of Procedure: The patient is a 73-year-old female well-known to the urology service with a history of multiple episodes of nephrolithiasis which usually passes on her own. She has a history of rectal carcinoma with radiation and no longer absorbs things well. She developed right-sided abdominal pain a few days ago that then became bilateral and associated with nausea and this brought her into the emergency room. She was evaluated with a CT scan as well as labs which revealed bilateral distal ureteral calculi with hydroureteronephrosis and renal insufficiency. Informed consent was obtained for passage of bilateral ureteral stents and cystoscopy. The patient was taken to the operating room and placed on the operating room table. Anesthesia monitored the head, neck, airway, IV access and vital signs throughout the case. Once anesthesia was appropriately administered the patient was prepped and draped in usual sterile fashion. A cystourethroscopy was performed using a 30 degree lens. The patient's pelvic tissues including the external genitalia, urethra are thickened and abnormal secondary to radiation. The urethra was able to tolerate passing of the 21 [place] sheath, however bleeding did occur with its passage likely secondary to the radiation. Upon entry into the urinary bladder the mucosa was identified as being thin with vascular changes consistent with radiation. Bilateral ureteral orifices were identified in the area of the trigone. Beginning on the patient's right side a 0.038 Glidewire was inserted through the ureteral orifice and into the renal pelvis using fluoroscopic visualization. Urine began to flow from the kidney. A 6 [place] 22 cm double-J stent was then inserted without difficulty. This process was then repeated on the patient's left side without complication. Patient's bladder was then emptied and she was awakened and taken to the recovery room in good condition. There were no complications during this procedure. Grafts/Implants Used: 6 [place] 22 cm double-J stents x2 - Complications None - Admit VTE Documentation VTE Present on Admission: Yes VTE Mechan Device Prophylaxis: SCD's VTE Pharm Prophylaxis ordered?: No Reason prophylaxis not ordered:: Treatment Not Indicated
[2019-04-24] MEDS: Citalopram 40 MG TABLET PO (09:36)
[2019-04-24] MEDS: buPROPion (XL) 150 MG TABLET.XL PO (09:36)
--- NOTE | 2019-04-24 10:25 | CASEMGMT ---
RICHARD ALBRIGHT Face to Face with patient for initial transition planning/care coordination assessment. RN CM introduced self and role at [facility]. Patient lying in bed, alert and oriented. Patient willing to participate in assessment and is able to answer all questions appropriately. Care providers, pharmacy, and demographics verified. Patient wishes to discharge home, denies need for home health at this time. Patient states he has no further needs or concerns at this time. CM to follow for discharge planning needs that may arise. PCP: Chi Specialists: Emt Dispatcher Preferred Pharmacy: [facility] Insurance: [facility] Prescription Benefit: No Living Will/HPOA: None LNOK: Daughter Living Arrangements: Patient lives in a duplex with bed an bath on main level of house. Patient independent at home. Transportation: Self/ Daughter DME/HHC: Patient states she has a cane, denies further DME. No previous HHC. Disposition Plan: Patient to discharge home with family support and follow-up plans in place. Geni ACE, RN, CM
[2019-04-24] MEDS: proMETHazine 25 MG/ML Syringe 12.5 MG IV (10:48)
[2019-04-24] MEDS: HYDROcodone Bitartrate/Apap 5/325 Tablet PO ×2 (15:42→23:10)
[2019-04-25 04:33] VITALS: BP 146/69; PULSE 72; RESP 20; TEMP 36.6; O2SAT 95
[2019-04-25 06:42] LABS: Anion Gap 4 (5-15); BUN 13 mg/dL (7-18); BUN/Creat Ratio 10.7 RATIO (10-20); Calcium,Total 8.1 mg/dL (8.5-10.1); Chloride 115 mmol/L (98-107); Creatinine, Serum 1.21 mg/dL (0.55-1.02); EST Glomerular Filtration Rate 46 mL/min (>60); Est Glom Filt Rate - Afr Amer 56 mL/min (>60); Estimated Creatinine Clearance 31.25 ml/min; Glucose 95 mg/dL (74-106); Potassium 4.2 mmol/L (3.5-5.1); Sodium Level 141 mmol/L (136-145)
[2019-04-25] MEDS: HYDROcodone Bitartrate/Apap 5/325 Tablet PO (06:43)
[2019-04-25] MEDS: Levothyroxine 112 MCG Tablet PO (06:43)
[2019-04-25] MEDS: Cefazolin 1 GM/50 ML BAG IV (06:48)
[2019-04-25] MEDS: Dext 5%-0.45% NS 1,000 ML 100 ML IV (07:47)
--- NOTE | 2019-04-25 08:15 | DCINST_ITS ---
Discharge Diet: No Restrictions Discharge Activity: May not drive while taking narcotic pain medications. May resume sexual activity in: 4 weeks Call your doctor if you observe: Fever of 101 or Higher, Inability to urinate, Shortness of breath, Chest pain, Calf discomfort, Uncontrolled pain Allergies/Adverse Reactions: Allergies ciprofloxacin [From Cipro] Allergy (Verified 11/28/18 12:50) Rash ciprofloxacin HCl [From Cipro] Allergy (Verified 11/28/18 12:50) Rash Penicillins Allergy (Verified 11/28/18 12:50) Hives codeine Adverse Reaction (Verified 11/28/18 12:50) makes her feel weird makes her feel weird NSAIDS (Non-Steroidal Anti-Inflamma Adverse Reaction (Verified 11/28/18 12:50) kidney damage r/t long-term usage advised not to use kidney damage r/t long-term usage advised not to use MAGNESIUM CITRATE Adverse Reaction (Uncoded 11/28/18 12:50) Nausea Medications to take at Discharge Levothyroxine [Synthroid] 112 mcg PO DAILY 02/02/15 Albuterol IH (ProAir) [Proair Hfa] 1 puff INHALATION Q4H PRN PRN #1 inhaler 01/29/18 bupropion HCl XL 150 mg 24 hr tablet, extended release 150 mg PO QAM 11/28/18 Citalopram [Celexa] 40 mg PO DAILY 04/24/19 Cephalexin [Keflex] 500 mg PO TID 5 Days #15 cap 04/25/19 Hydrocodone Bitart/Apap 5-325 [[place] 5/325] 2 tab PO Q6H PRN PRN 7 Days #30 tab 04/25/19 Phenazopyridine HCl [Pyridium] 200 mg PO TID PRN PRN 7 Days #30 tab 04/25/19 proMETHazine tablet [Phenergan tablet] 25 mg PO Q8H PRN PRN 4 Days #10 tab 04/25/19 The following prescriptions were given: Cephalexin [Keflex] 500 mg PO TID 5 Days #15 cap Prescription Printed Hydrocodone Bitart/Apap 5-325 [[place] 5/325] 2 tab PO Q6H PRN PRN 7 Days #30 tab PRN Reason: Severe Pain (6-08/15) Prescription Printed proMETHazine tablet [Phenergan tablet] 25 mg PO Q8H PRN PRN 4 Days #10 tab PRN Reason: Nausea Prescription Printed Phenazopyridine HCl [Pyridium] 200 mg PO TID PRN PRN 7 Days #30 tab PRN Reason: Bladder Spasms Prescription Printed Primary Care Physician: Adis Mireles MD [Primary Care Provider] - Test Results: Test results from this visit will be discussed in further detail at your follow- up appointment, if applicable. Please Follow Up With: Minal Morrison MD When: office will call with instructions Proposed Discharge Date: 04/25/19
[2019-04-25] MEDS: Citalopram 40 MG TABLET PO (08:31)
[2019-04-25] MEDS: buPROPion (XL) 150 MG TABLET.XL PO (08:31)
[2019-04-25 08:32] VITALS: BP 115/61; PULSE 81; RESP 18; TEMP 36.3; O2SAT 94
[2019-04-25 08:35] VITALS: PULSE 80
--- NOTE | 2019-04-25 10:15 | PCM.PN.GU ---
Physical Exam Subjective: Patient sitting up in bed reading this morning. She reports that her significant pain has improved and there is no nausea at the present time. She does have some discomfort when she moves certain ways from her ureteral stents. She feels ready to be discharged home. She will follow-up with me for surgical intervention of her bilateral ureteral stones. - Physical Exam Vital Signs Temp 97.3 F L 04/25/19 08:32 Pulse 80 04/25/19 08:35 Resp 18 04/25/19 08:32 BP 115/61 04/25/19 08:32 Pulse Ox 94 04/25/19 08:32 Intake & Output 04/23/19 04/24/19 04/25/19 23:59 23:59 23:59 Intake Total 2447 / 3786 2634 / 2634 Output Total 1550 / 1875 550 / 550 Balance 897 / 1911 2083 / 2083 Weight: 53.6 kg 51.8 kg Intake: Oral 480 / 1220 1390 / 1390 IV fluid/meds 1967 / 2566 1244 / 1244 IV #1 400 / 400 Output: Urine 1150 / 1300 250 / 250 #2 Urine 200 / 375 300 / 300 Stool Amount 200 / 200 Other: Number of Voids 2 General: Alert, Oriented x3, Cooperative, No apparent distress HEENT: Atraumatic, Normocephalic Oral: Moist Mucosa Neck: Supple Lungs: Normal air movement Cardiovascular: Regular rate Abdomen: Soft Rectal: Exam deferred Skin: No rashes Neurological: Cranial nerves II-XII grossly intact Psych/Mental Status: Normal Affect Laboratory Tests Past 24 Hrs 04/25/19 06:10 Sodium 141 Potassium 4.2 Chloride 115 H Carbon Dioxide 22.0 Anion Gap 4 L BUN 13 Creatinine 1.21 H Estim Creat Clear Calc 31.25 Est GFR (MDRD) Af Amer 56 L Est GFR (MDRD) Non-Af 46 L BUN/Creatinine Ratio 10.7 Glucose 95 Calcium 8.1 L Medical Necessity - Tobacco Use Smoking Status: Former smoker Assessment/Plan All Active Problems (Last Reviewed 04/24/19 @ 08:12 by Minal Morrison MD) Urinary tract infection (Acute) Acute kidney injury (Acute) Bilateral ureteral calculi (Acute) Hydronephrosis due to obstruction of ureter (Acute) Asthma-COPD overlap syndrome (Acute) History of colostomy (Resolved) History of cholecystectomy (Resolved) History of bowel resection (Resolved) History of hysterectomy (Resolved) History of delivery (Resolved) COPD exacerbation (Acute) TIA (transient ischemic attack) (Acute) 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 calculus (Acute) Filling defect on imaging study (Acute) Home today on Keflex antibiotic coverage. Pain control, nausea control and Pyridium for bladder spasms. Return for surgical intervention as instructed by the office.
--- NOTE | 2019-04-26 15:46 | CASEMGMT ---
RICHARD ALBRIGHT Discharge Follow-up Phone Call: HUSSEIN: Yosvany Strata: 3 Call Date: 04/26/19 Discharge Date: 04/25/19 Time of Call: 1545 Duration: 3 min Admitting Diagnosis: Bilateral Obstruction Renal Stone RICHARD ALBRIGHT completed follow-up phone call after recent hospitalization. Patient states she is doing well. Patient states that she had no questions or concerns regarding discharge instructions. Patient states that she was able to fill prescriptions without any issues. Patient has follow-up appt scheduled with PCP on 05/01/19.
== END 2019-04-25 10:35 | disposition home or self-care (01) | DRG 660 ==
LOC: ED 04-24 00:03 → MS3 04-24 00:12
PROVIDERS: Anesthesiology; Admitting Provider Urology; Emergency Provider Emergency Medicine; Family Provider Internal Medicine; PCP Internal Medicine; Visit Provider Urology
PROC: 0T788DZ Dilation of Bilateral Ureters with Intraluminal Device, Via Natural or Artificial Opening Endoscopic (ICD-10-PCS; principal; 2019-04-24 07:20)
DX: N13.6 Pyonephrosis (principal); K90.9 Intestinal malabsorption, unspecified; N17.9 Acute kidney failure, unspecified; Z90.49 Acquired absence of other specified parts of digestive tract; Z87.442 Personal history of urinary calculi; Z85.048 Personal history of other malignant neoplasm of rectum, rectosigmoid junction, and anus; Z93.3 Colostomy status; Z87.891 Personal history of nicotine dependence; J44.9 Chronic obstructive pulmonary disease, unspecified; Z92.3 Personal history of irradiation; E03.9 Hypothyroidism, unspecified
CPT/HCPCS: 36415; 74176; 76000; 80048; 81001; 84443; 85025; 87086; 93005; 99284; J7030; A4216; C1769; C2625; J2405; J7799

== ENCOUNTER 2019-05-06 21:10 | Emergency (ER) | payer MEDICARE, OTHER, SELFPAY ==
[2019-04-24 01:16] VITALS: BMI 20.9
[2019-05-06 21:11] VITALS: BP 114/68; PULSE 92; RESP 17; TEMP 37.1; O2SAT 85; BMI 20.8
[2019-05-06 22:19] VITALS: BP 115/71; PULSE 78; RESP 17; O2SAT 97
--- NOTE | 2019-05-06 22:36 | RAD_ITS ---
STUDY: X-RAY - LEFT TIBIA AND FIBULA REASON FOR EXAM: Female, 73 years old. Knee pain TECHNIQUE: AP and lateral view(s) of the tibia and fibula were obtained. COMPARISON: None. FINDINGS: There are small osteophytes involving the inferior facet of the patella. Benign soft tissue calcification. There is a small suprapatellar effusion. There are small osteophytes at the knee. No fractures. Generalized osteopenia RAD/Tibia & Fibula 2 Views IMPRESSION: Osteoarthrosis no fractures Mild soft tissue edema Small suprapatellar effusion Electronically Signed: Brandyn Mccray, at 23:29 EDT Tel , Service support ,
--- NOTE | 2019-05-06 22:36 | RAD_ITS ---
STUDY: X-RAY - LEFT KNEE REASON FOR EXAM: Female, 73 years old. Knee pain TECHNIQUE: 4 view(s) of the knee. COMPARISON: None. FINDINGS: There is generalized osteopenia. There are osteophytes of the patella. The benign cysts within the tibia. There is a small suprapatellar effusion.. On the sunrise view there is irregular bony density posterior to the patella adjacent to the intercondylar notch with femoral cortical irregularity. RAD/Knee 4 or More Views IMPRESSION: .. On the sunrise view there is irregular bony density posterior to the patella adjacent to the intercondylar notch with femoral cortical irregularity, possible fracture. CT knee is recommended to further evaluate Soft tissue edema Generalized osteopenia Small suprapatellar effusion Electronically Signed: Brandyn Mccray, at 23:34 EDT Tel , Service support ,
--- NOTE | 2019-05-06 22:40 | RAD_ITS ---
STUDY: X-RAY CHEST REASON FOR EXAM: Female, 73 years old. Pain status post fall TECHNIQUE: Frontal and lateral views of the chest. COMPARISON: January 26, 2018 FINDINGS: Lungs are hyperaerated. The lungs are clear and expanded. There is no demonstrated pleural abnormality. Normal size heart. Normal mediastinum and jayashree. Normal visualized pulmonary arteries. Normal visualized aortic arch and descending thoracic aorta. Normal visualized thoracic spine. Normal visualized ribs, clavicles, and shoulders. There is no demonstrated abnormality of the visualized soft tissue structures of the upper abdomen. RAD/Chest PA and Lateral IMPRESSION: COPD. No acute disease. Electronically Signed: Akin Mobley MD at 23:04 EDT , Service support ,
--- NOTE | 2019-05-06 23:36 | CT_ITS ---
STUDY: CT LEFT KNEE WITHOUT CONTRAST REASON FOR EXAM: Female, 73 years old. Left knee pain after fall. Abnormal plain films. RADIATION DOSAGE (If Supplied By Facility): CTDIvol = ( 15.35 ) mGy, DLP = ( 369.11 ) mGycm TECHNIQUE: Transaxial CT imaging of the knee was performed. Coronal and sagittal images were reformatted. Individualized dose optimization techniques were used for this CT. COMPARISON: Left knee series May 06, 2019. FINDINGS: Normal medial femoral condyle and medial tibial plateau. There is preservation of the articular joint space of the medial knee compartment. Normal lateral femoral condyle and lateral tibial plateau. There is preservation of the articular joint space of the lateral knee compartment. Irregularity inferior medial patellar articular surface with several adjacent loose bodies the largest measuring 7 mm x 2 mm, axial images 36 through 39 series 3. Medial patellofemoral joint space narrowing. Bones are osteopenic. Normal proximal tibiofibular articulation. Small suprapatellar joint effusion. The quadriceps tendon is grossly normal. The patellar tendon is grossly normal. Normal Hoffa's fat pad. The soft tissues are unremarkable. CT/Extremity Lower without Contra IMPRESSION: Chondromalacia patella medial patellar facet with several small loose bodies. Small joint effusion. Osteopenia. Electronically Signed: Praful Reese MD at 0:17 EDT , Service support ,
[2019-05-07 00:06] VITALS: BP 129/68; PULSE 77; RESP 19; O2SAT 92
[2019-05-07 01:04] VITALS: BP 112/78; PULSE 77; RESP 15; O2SAT 87
[2019-05-07 01:36] LABS: Allen Test POS; Base Excess -2 mmol/L (-2 to +2); Bicarbonate 22.6 mmol/L (22-26); Blood Gas Specimen Type ART; O2 Delivery Device Room Air; PO2 52 mmHG (75-100); SITE R Radial; SO2 87 % (95-99); Total Carbon Dioxide 24 mmol/L; pCO2 36.5 mmHg (35-45)
--- NOTE | 2019-05-07 01:54 | ED.DCSUM_ITS ---
- ER Visit Summary Date of Service: 05/07/19 Chief Complaint: Left leg injury History of Present Illness: The patient is a 73 F who presents to the emergency department following a left leg injury. Patient fell going up stairs this morning injuring the left knee. She points the posterior aspect of the knee as a source of her pain. She notes abrasions to the front of the bilateral legs. She is having anxiety today. She got up to use the bathroom which was problematic for her because of the pain in the knee and she states she began to feel short of breath. She used 1 puff from her albuterol inhaler and states she has not had any symptoms since. She has a history of asthma-COPD overlap syndrome. She sees Dr. Santos. Physical Examination: Afebrile vital signs are stable. 97% on 5 L per triage nurse Gen: Well-nourished well-developed Head: Normocephalic atraumatic Eyes: Perrl EOMI ENT: TMs clear no rhinorrhea moist mucous membranes Neck: Supple no lymphadenopathy no JVD nontender CVS: Regular rate rhythm no murmurs normal S1-S2 Respiratory: No distress clear to auscultation bilaterally chest nontender respirations are easy and unlabored Abdomen: Soft nontender nondistended normal bowel sounds no masses Back: Nontender Extremity: There are anterior bilateral leg abrasions. The left posterior knee and proximal calf are tender to palpation. She is able to dorsiflex and plantarflex the feet. Skin: Normal color no rash Neuro: alert orientated ?3 CN II-XII intact normal strength sensation Psych: Normal affect normal mood Test Results: X-ray of the chest showed COPD changes. Tib-fib and knee films were obtained. Radiology was concerned about a possible nondisplaced fracture on the knee films. They recommended CT. This was obtained does not demonstrate fracture. Emergency Department Course and Treatment: Patient's pulse ox remained quite variable depending on which finger was on and how long it was placed on there. That time she would be 94% and other x83%. I went ahead and ordered an ABG which showed a pH of 7.4. PCO2 of 36.5 PO2 of 52 bicarb 22.6 and oxygen saturation at 87%. Patient is asymptomatic from a breathing standpoint. She is not dyspneic. She has no wheezing or cough. I suspect the patient lives in this area. She does not have home oxygen. We will have her follow-up with Dr. Tom mcguire by the office for a pulse oximeter chest. She may eventually require home oxygen but at this point appears asymptomatic. Impression: 1. Left knee sprain 2. COPD 3. Chronic hypoxia This note was generated with Mir[employer] software. It may contain incorrect words, spelling, and punctuation that were not noted in review of the chart prior to signing ED Disposition - Plan for ED Patient: Disposition: Home or Assisted Living Instructions: Knee Sprain Referrals: Mayco Santos DO [STAFF PHYSICIAN] - As soon as possible
[2019-05-07 02:10] VITALS: BP 117/84; PULSE 77; RESP 18; O2SAT 89
--- NOTE | 2019-05-07 11:51 | ED.RN ---
Called pt to inform her to set up a nurse visit at Dr Mayco Santos's office for check related to inconsistent O2 sat. Daughter called back immediately to inform they were at the office now.
== END 2019-05-07 02:11 | disposition home or self-care (01) ==
PROVIDERS: Emergency Provider Emergency Medicine; Family Provider Internal Medicine; PCP Internal Medicine
DX: S83.92XA Sprain of unspecified site of left knee, initial encounter (principal); J44.9 Chronic obstructive pulmonary disease, unspecified; R09.02 Hypoxemia; S80.812A Abrasion, left lower leg, initial encounter; S80.811A Abrasion, right lower leg, initial encounter; W10.9XXA Fall (on) (from) unspecified stairs and steps, initial encounter; Y93.9 Activity, unspecified; Y92.9 Unspecified place or not applicable; F41.9 Anxiety disorder, unspecified; E03.9 Hypothyroidism, unspecified; Z86.73 Personal history of transient ischemic attack (TIA), and cerebral infarction without residual deficits; Z87.442 Personal history of urinary calculi; Z85.048 Personal history of other malignant neoplasm of rectum, rectosigmoid junction, and anus; Z79.899 Other long term (current) drug therapy
CPT/HCPCS: 36600; 71046; 73564; 73590; 73700; 82803; 99283; A4216

== ENCOUNTER → 2019-05-07 12:34 | Outpatient (CLI) | payer MEDICARE, OTHER, SELFPAY ==
[2019-05-07 11:04] VITALS: BMI 20.8
--- NOTE | 2019-05-07 12:36 | CT_ITS ---
STUDY: CTA CHEST REASON FOR EXAM: Female, 73 years old. Shortness of breath. Suspected pulmonary embolism. RADIATION DOSAGE (If Supplied By Facility): CTDIvol = ( 7.64 ) mGy, DLP = ( 272.43 ) mGycm TECHNIQUE: The examination was performed with the intravenous administration of 75 IV Isovue 300. Post-processing of the angiographic images was performed, with multiplanar reformation and 3D reconstruction. Individualized dose optimization techniques were used for this CT. COMPARISON: None. FINDINGS: HEART: Normal heart size. Small pericardial effusion with fluid anteriorly. Mild coronary artery disease. Mild valve calcifications. AORTA/GREAT VESSELS: Adequate contrast enhancement. Vascular calcifications. Normal caliber great vessels. Normal caliber aorta. PULMONARY ARTERIES: Adequate contrast enhancement. Normal caliber pulmonary arteries. No pulmonary emboli. LUNGS/AIRWAYS: Mild hyperexpansion/COPD. Mild areas of atelectasis. Mild dependent changes. Mild emphysematous changes. Central airways patent. No lung mass. No suspicious lung nodules. PLEURA: No pneumothorax. No pleural effusions. MEDIASTINUM/THYROID: Subtle heterogeneity of the right thyroid lobe (axial images 217 through 222 series 2). No pneumomediastinum. No pathologically enlarged lymph nodes. SOFT TISSUES: No acute process. OSSEOUS STRUCTURES: Degenerative changes. Nonspecific sclerosis of the T1 vertebral body (sagittal image 164 series 602 and axial image 225 series 2) region of interest measures approximately 8 mm. No acute fracture. No dislocation. UPPER ABDOMEN/ESOPHAGUS: Normal esophagus. Tiny hiatal hernia. Mild hepatic steatosis. Bilateral nonobstructing small renal stones measuring approximately 3 mm. No acute process. CT/CTA Chest W/WO Contrast IMPRESSION: No aortic aneurysm, aortic dissection or pulmonary embolism No acute pneumonia, pleural effusion or pneumothorax COPD/emphysema Bilateral nonobstructing small renal stones Nonspecific slightly heterogeneous right thyroid lobe (nonemergent thyroid testing recommended) Nonspecific T1 vertebral body sclerosis (correlate medical history and consider bone scan as clinically necessary) Electronically Signed: Ash Gomez DO at 13:39 EDT Tel , Service support ,
== END ==
PROVIDERS: Family Provider Internal Medicine; PCP Internal Medicine; Referring Provider Nurse Practitioner Acute Care; Visit Provider Nurse Practitioner Acute Care
DX: I26.99 Other pulmonary embolism without acute cor pulmonale (principal)
CPT/HCPCS: 71275; Q9967

== ENCOUNTER 2019-05-08 19:07 | Inpatient (IN) | payer MEDICARE, OTHER, SELFPAY ==
[2019-04-24 01:16] VITALS: BMI 20.9
[2019-05-07 11:04] VITALS: BMI 20.8
[2019-05-08] VITALS (8 sets, daily range): BP systolic 107–133; BP diastolic 57–70; PULSE 94–116; RESP 18–21; TEMP 37.2–37.6; O2SAT 87–94; BMI 20.8; BMI 21.4; BMI 21.5
--- NOTE | 2019-05-08 19:23 | EKG12_ITS ---
Test Reason : SOB Blood Pressure : / mmHG Vent. Rate : 103 BPM Atrial Rate : 103 BPM P-R Int : 176 ms QRS Dur : 068 ms QT Int : 334 ms P-R-T Axes : 077 025 086 degrees QTc Int : 437 ms Sinus tachycardia Nonspecific T-Wave Abnormality Confirmed by HUGH TERRAZAS, REFUGIO ([id number]), photography editor DYLON ZUNIGA ([id number]) on 05/13/2019 1:27:05 PM Referred By: Jeff Pappas Confirmed By:REFUGIO REESE MD
--- NOTE | 2019-05-08 19:23 | RAD_ITS ---
STUDY: X-RAY CHEST REASON FOR EXAM: Female, 73 years old. Shortness of breath TECHNIQUE: Single AP portable view of the chest. COMPARISON: Prior study of 05/06/2019 FINDINGS: environmental monitoring specialist leads are present. There is increased hazy density of the right lung base. There is no demonstrated pleural abnormality. Normal size heart. Normal mediastinum and jayashree. Normal visualized pulmonary arteries. There are calcified plaques of the aortic arch. Normal visualized thoracic spine. Normal visualized ribs, clavicles, and shoulders. There is no demonstrated abnormality of the visualized soft tissue structures of the upper abdomen. RAD/Chest 1 View (Portable) IMPRESSION: Increased hazy density of the right lung base which may represent atelectasis or pneumonic process. This appears similar to the prior study. Calcified plaques of the aortic arch. Electronically Signed: Shawn Zuñiga MD at 19:52 EDT , Service support ,
[2019-05-08] MEDS: Albuterol 2.5 MG/3 ML VIAL.NEB. INHALATION ×3 (19:33)
[2019-05-08] MEDS: Ipratropium/Albuterol Sulfate 3 ML AMPUL.NEB INHALATION ×2 (19:33→23:07)
[2019-05-08] MEDS: 0.9% Normal Saline 1,000 ML 150 ML IV (19:33)
[2019-05-08] MEDS: MethylPREDNISolone 125 MG/2 ML Vial IV (19:34)
[2019-05-08 19:58] LABS: Absolute Lymphocyte Count 0.72 X10^3/ul (0.83-4.51); Absolute Neutrophil Count 12.1 X10^3/uL (2.0-7.7); Eosinophil# 0.28 X10^3/uL; Hematocrit 37.8 % (37-47); Lymphocyte # 0.72 X10^3/ul (4.0); Lymphocyte % 5.2 % (19-41); Mean Corp Hgb Conc 31.7 g/gl (32-36); Mean Corpuscular Hgb 30.5 pg (27.0-32.0); Mean Corpuscular Volume 96.2 fL (81-99); Monocyte# 0.83 X10^3/uL; Monocyte% 5.9 % (0-10); Neutrophil # 12.11 X10^3/uL (2.7-7.7); Neutrophil % 86.6 % (47-70); Platelet Count 182 K/mm3 (150-450); RBC Distribution Width CV 14.3 % (11.6-14.6); Red Blood Count 3.93 M/mm3 (4.2-5.4)
[2019-05-08 20:08] LABS: POSITIVE COUNT NO
[2019-05-08 20:09] LABS: POSITIVE MORPHOLOGY NO
[2019-05-08 20:14] LABS: Anion Gap 8 (5-15); BUN 14 mg/dL (7-18); BUN/Creat Ratio 11.8 RATIO (10-20); Calcium,Total 8.5 mg/dL (8.5-10.1); Chloride 103 mmol/L (98-107); Creatinine, Serum 1.19 mg/dL (0.55-1.02); EST Glomerular Filtration Rate 47 mL/min (>60); Est Glom Filt Rate - Afr Amer 57 mL/min (>60); Glucose 117 mg/dL (74-106); Potassium 3.7 mmol/L (3.5-5.1); Sodium Level 135 mmol/L (136-145)
--- NOTE | 2019-05-08 20:28 | HP.PCM_ITS ---
Problem List (1) Acute respiratory failure with hypoxemia Status: Acute History of Present Illness Date of Admission: 05/08/19 Chief Complaint: SHORTNESS OF BREATH The patient is a 73 year old F with a significant history of COPD; former tobacco abuse; hypothyroidism; rectal cancer status post chemotherapy with radiation and then colectomy who presented to the emergency department with 3- day history of progressively worsening shortness of breath. Associated with her symptoms is a productive cough of clear sputum; and chest tightness. Patient's family thinks that patient home is musty and it may be contributing to her symptoms. Importantly 3 days ago patient was at the hospital because she fell. She was diagnosed with a sprain of her left knee. Reportedly she was discharged home. Because of hypoxia her national investigative producer Dr. Mayco Santos put her on home oxygen of 3 L Reportedly chest x-ray and CT chest at that time was unremarkable. On the day of presentation on her home liters of 3 L her oxygen saturation was 82% for which resume her home oxygen was cranked up to 4 L. On presentation her chest x-ray showed increased hazy density of the right lung base. Past Medical History Past Medical History (Chronic Problems): Chronic Problems (Last Reviewed 05/09/19 @ 08:18 by Jeff Pappas MD) Hypothyroidism (Chronic) Anxiety (Chronic) Depression (Chronic) Nicotine abuse (Chronic) COPD (chronic obstructive pulmonary disease) (Chronic) Chronic bronchitis (Chronic) Hydronephrosis, right (Chronic) History of rectal cancer (Chronic) Medical History: Medical History (Last Reviewed 05/09/19 @ 08:18 by Jeff Pappas MD) History of hysterectomy (Resolved) Z90.710 COPD exacerbation (Acute) J44.1 Hypothyroidism (Chronic) E03.9 Anxiety (Chronic) F41.9 Depression (Chronic) F32.9 Nicotine abuse (Chronic) Z72.0 TIA (transient ischemic attack) (Acute) G45.9 COPD (chronic obstructive pulmonary disease) (Chronic) J44.9 Chronic bronchitis (Chronic) J42 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 calculus (Acute) N20.1 Hydronephrosis, right (Chronic) N13.30 Filling defect on imaging study (Acute) R93.8 Filling defect in proximal right colon on CT abdomen History of rectal cancer (Chronic) Z85.048 Allergies ciprofloxacin [From Cipro] Allergy (Verified 05/08/19 19:10) Rash ciprofloxacin HCl [From Cipro] Allergy (Verified 05/08/19 19:10) Rash Penicillins Allergy (Verified 05/08/19 19:10) Hives codeine Adverse Reaction (Verified 05/08/19 19:10) makes her feel weird makes her feel weird NSAIDS (Non-Steroidal Anti-Inflamma Adverse Reaction (Verified 05/08/19 19:10) kidney damage r/t long-term usage advised not to use kidney damage r/t long-term usage advised not to use MAGNESIUM CITRATE Adverse Reaction (Uncoded 05/08/19 19:10) Nausea Home Medications: Ambulatory Orders Medication Instructions Recorded Albuterol IH (ProAir) [Proair Hfa] 1 puff INHALATION Q4H PRN PRN #1 01/29/18 inhaler bupropion HCl XL 150 mg 24 hr 150 mg PO QAM 11/28/18 tablet, extended release Citalopram [Celexa] 40 mg PO DAILY 04/24/19 Nitrofurantoin Macrocrystal 100 mg PO BID 05/06/19 [Nitrofurantoin] Oxycodone HCl/Acetaminophen 1 tab PO Q6H PRN PRN 05/06/19 [Oxycodone-Acetaminophen 5-325] Levothyroxine [Synthroid] 25 mcg PO DAILY 05/08/19 Levothyroxine [Synthroid] 75 mcg PO DAILY 05/08/19 Phenazopyridine HCl 200 mg PO TID 05/08/19 Surgical History: Surgical History (Last Reviewed 05/09/19 @ 08:18 by Jeff Pappas MD) History of colostomy (Resolved) Z98.890 History of cholecystectomy (Resolved) Z90.49 History of bowel resection (Resolved) Z98.890, Z90.49 History of delivery (Resolved) Z98.891 Surgical History: cholecystectomy, tonsillectomy, - - bowel resection, colostomy Psychiatric History: No pertinent psych hx DRIVEMATIC MACHINE OPERATOR History: No pertinent DRIVEMATIC MACHINE OPERATOR history Lives: Alone Smoking Status: Former smoker Alcohol: None - *Family History Maternal History Items: COPD, Heart Disease Sibling History Items: Diabetes Paternal History Items: Heart Disease Review of Systems Constitutional: Denies: Chills, Fever, Weight Change HEENT: Denies: Head Aches, Sinus Congestion, Sinus Drainage Cardiovascular: Denies: Chest Pain, Palpitations Respiratory: Reports: Cough, Shortness of Breath, Sputum production Gastrointestinal: Denies: Abdominal Pain, Nausea, Vomiting Genitourinary: Reports: Dysuria Musculoskeletal: Reports: Joint Pain - left knee, Joint Tenderness Skin: Denies: Rash, Wounds Neurological: Denies: Numbness, Tingling, Focal weakness Psychiatric: Denies: Homicidal Ideations, Suicidal Ideations Hematologic/ Lymphatic: Denies: Easy Bruising, Easy Bleeding VTE Information - Inpt Only VTE Present on Admission: No VTE Mechan Device Prophylaxis: None VTE Pharm Prophylaxis ordered?: Yes Patient Problems: Active and Suspected Problems (Last Reviewed 05/09/19 @ 08:18 by Jeff Pappas MD) Acute respiratory failure with hypoxemia (Acute) - Physical Exam General: Alert, Oriented x3, Cooperative HEENT: Atraumatic, PERRLA, EOMI, Normocephalic Neck: Supple, No JVD, Negative Carotid Bruits Lungs: Rales - bibailar Cardiovascular: Regular rate, No murmurs Abdomen: Bowel Sounds Present, Soft, Non Tender, - - Colostomy in place. Extremities: No edema, Capillary Refill Less than 3 Seconds Skin: No rashes, No breakdown Musculoskeletal: No Tenderness to Palpation of Joints or Extremities Neurological: Neuro grossly intact Psych/Mental Status: Normal Affect, Appropriate Vital Signs Temp Pulse Resp BP Pulse Ox 99.6 F H 116 H 20 H 133/70 H 91 05/08/19 19:08 05/08/19 19:48 05/08/19 19:48 05/08/19 19:08 05/08/19 19:17 Oxygen Flow Rate (L/min) 5 Oxygen Delivery Method Nasal Cannula Weight: 51.71 kg Body Mass Index (BMI) 20.8 Finger Stick Blood Glucose 92 Laboratory Tests Past 24 Hrs 05/08/19 05/08/19 19:40 19:40 WBC 14.0 H RBC 3.93 L Hgb 12.0 Hct 37.8 MCV 96.2 MCH 30.5 MCHC 31.7 L RDW 14.3 RDW Differential 51.0 H Plt Count 182 MPV 9.0 Immature Gran % (Auto) 0.300 Neut % (Auto) 86.6 H Lymph % (Auto) 5.2 L [place] % (Auto) 5.9 Eos % (Auto) 2.0 Baso % (Auto) 0.0 Absolute Neuts (auto) 12.1 H Absolute Lymphs (auto) 0.72 L Total Counted Not Reportable Sodium 135 L Potassium 3.7 Chloride 103 Carbon Dioxide 24.0 Anion Gap 8 BUN 14 Creatinine 1.19 H Estim Creat Clear Calc 33.30 Est GFR (MDRD) Af Amer 57 L Est GFR (MDRD) Non-Af 47 L BUN/Creatinine Ratio 11.8 Glucose 117 H Calcium 8.5 Troponin I < 0.015 Assessment/Plan All Active Problems (Last Reviewed 05/09/19 @ 08:18 by Jeff Pappas MD) Urinary tract infection (Acute) Acute kidney injury (Acute) Bilateral ureteral calculi (Acute) Hydronephrosis due to obstruction of ureter (Acute) Acute respiratory failure with hypoxemia (Acute) Hypoxia (Acute) Asthma-COPD overlap syndrome (Acute) History of colostomy (Resolved) History of cholecystectomy (Resolved) History of bowel resection (Resolved) History of hysterectomy (Resolved) History of delivery (Resolved) COPD exacerbation (Acute) TIA (transient ischemic attack) (Acute) 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 calculus (Acute) Filling defect on imaging study (Acute) The patient is a 73 year old F with a significant history of COPD; former tobacco abuse; hypothyroidism; intermittent cancer status post chemotherapy with radiation and then a colectomy who presented to the emergency department with 3-day history of progressively worsening shortness of breath; hypoxia and found to have radiographic evidence of increase his density in the right lung base; unchanged from previous consistent with acute hypoxemic respiratory failure. Acute hypoxemic respiratory failure reportedly on 3 L at home her oxygen saturation was 82%; and on 4 L her oxygen saturation was 88%. Reportedly patient was started on home oxygen about a day ago. While at the [facility] she was on 6 L nasal cannula and her oxygen saturation was 92 to 93%. Etiology is likely from committee acquired pneumonia or acute exacerbation of COPD Continue oxygen supplementation to maintain oxygen saturation above 92 to 93% Management as below Probable committee acquired pneumonia White count showed neutrophilic leukocytosis Chest x-ray showed increased hazy density of the right lung base which may represent atelectasis or pneumonic process; unchanged from previous study. Respiratory Gram stain and culture pending Antibiotics: IV Azithromycin and Ceftriaxone DuoNeb scheduled. Albuterol as needed Legionella antigen screen and Strep antigen ordered Trend CBC and BMP Incentive spirometer and chest physiotherapy ordered COPD Scheduled DuoNeb Albuterol as needed Receive Solu-Medrol 125 mg at the emergency department. Solu-Medrol continued On appropriate antibiotics of azithromycin and ceftriaxone as above Oxygen supplementation as above Mucinex ordered Monitor BMP and CBC Hyponatremia On presentation sodium was 135. Mild hyponatremia likely secondary to pneumonic process Treat pneumonia as above Kidney infection and kidney stones Reportedly at home patient is on Macrobid with last dose on 05/10/2019. Reportedly patient is to have probable lithotripsy on 05/14/2018. She reports she has stent bilaterally in the ureter. Stop Macrobid at this time since patient has been started on ceftriaxone which is appropriate for urinary tract infection. Oxycodone as needed and phenazopyridine continued Colostomy Reportedly she had rectal cancer and chemotherapy and radiation after which she had colectomy with colostomy Colostomy nurse consult Left ankle sprain/strain Continue Antony wrap Depression/anxiety: Wellbutrin continued Hypothyroidism: Synthroid continued DVT prophylaxis Lovenox ordered Code Visit Inpatient E&M: 11398 Init Hosp L3
--- NOTE | 2019-05-08 20:30 | ED.DCSUM_ITS ---
- ER Visit Summary Date of Service: 05/08/19 Chief Complaint: [Shortness of breath] History of Present Illness: The patient is a 73 F [the emergency room with complaint of shortness of breath that started about an hour ago. Patient's little bit of a cough today bringing up some clear sputum. Patient at home had O2 sats in the low 80s on 3 L. Patient just recently started on oxygen as she was recently seen in the emergency department about 4 days ago for knee injury and at that time it was noted that she was hypoxic however she states that she was sent home. Patient followed up with her infrastructure software engineer who arranged for her to get home O2 set up and also had a CTA of the chest obtained yesterday that it was negative for PE or anything acute. Patient does have a history of COPD and history of colon cancer at remote. Patient surgical history includes appendectomy, cholecystectomy, hysterectomy, and colostomy. ] Physical Examination: [HEENT-PERRLA, EOMI. Cranial nerves II through XII grossly intact. TMs clear. Mucous membranes moist. No adenopathy. Cardiovascular-regular rate and rhythm without murmur or ectopy Lungs-breath sounds bilaterally. Patient has a faint expiratory wheezes bilaterally. No accessory muscle use or retractions. Abdomen-normoactive bowel sounds, soft, nontender, no rebound or rigidity, no peritoneal signs. Extremities-intact ?4, normal range of motion, normal pulses, atraumatic] Test Results: [CBC with differential obtained showed white blood cell count of 14,000, hemoglobin 12, hematocrit 38, platelets 182. Chemistries unremarkable. Troponin is less than 1015. Chest x-ray obtained showed a right lung base density and they are questioning early pneumonia. EKG obtained showed a sinus rhythm with a ventricular rate of 103 bpm with no acute ST segment changes.] Emergency Department Course and Treatment: [Patient was given DuoNeb aerosol followed by albuterol aerosols. Patient was given Solu-Medrol 125 mill grams IV. Patient was started on Rocephin and Zithromax IV.] Treatment Plan: [Admit] Disposition: [Admit] Impression: [COPD exacerbation Pneumonia Hypoxemia] This note was generated with [employer] software. It may contain incorrect words, spelling, and punctuation that were not noted in review of the chart prior to signing ED Disposition - Plan for ED Patient: Referrals: Adis Mireles MD [Primary Care Provider] -
[2019-05-08] MEDS: Ceftriaxone 1 GM/50 ML BAG IV (20:41)
[2019-05-08] MEDS: oxyCODONE 5 MG Tablet PO (22:20)
[2019-05-08] MEDS: guaiFENesin 1,200 MG Tablet 1200 MG PO (23:48)
[2019-05-09] VITALS (15 sets, daily range): BP systolic 93–109; BP diastolic 51–65; PULSE 70–100; RESP 16–20; TEMP 36.3–37.1; O2SAT 90–95
--- NOTE | 2019-05-09 00:48 | NURSING ---
Pt with low O2 saturation, pt mouth breathing, and reports that she breaths through her mouth when she sleeps. Pt requesting to be put on simple face mask while she sleeps to help with O2 sats. This nurse unable to find simple mask on floor, so called RT. Per RT, can put pt on 40% Venti mask, at 8L. Pt put on venti mask for comfort, will continue to monitor pt's O2 saturation/vitals per [facility]. Suzanna RN
[2019-05-09] MEDS: Ipratropium/Albuterol Sulfate 3 ML AMPUL.NEB INHALATION ×6 (03:20→22:55)
[2019-05-09] MEDS: Levothyroxine 100 MCG Tablet PO (05:24)
[2019-05-09] MEDS: Enoxaparin 30 MG/0.3 ML Syringe SC (05:24)
[2019-05-09] MEDS: 0.9% NaCl Peripheral Flush Adult/Peds IV ×3 (05:25→21:01)
[2019-05-09 06:36] LABS: Basophil# 0.01 X10^3/uL; Basophil% 0.1 % (0-1); Eosinophil# 0.03 X10^3/uL; Eosinophils% 0.3 % (0-5); Hematocrit 32.2 % (37-47); Hemoglobin 9.9 g/dl (12.0-15.0); Mean Corp Hgb Conc 30.7 g/gl (32-36); Mean Corpuscular Hgb 29.9 pg (27.0-32.0); Mean Corpuscular Volume 97.3 fL (81-99); Mean Platelet Vol. 9.1 fl (6.2-12.0); Monocyte# 0.26 X10^3/uL; Monocyte% 2.6 % (0-10); Neutrophil # 9.03 X10^3/uL (2.7-7.7); Neutrophil % 90.7 % (47-70); POSITIVE COUNT NO; POSITIVE DIFFERENTIAL NO; POSITIVE MORPHOLOGY NO; Platelet Count 168 K/mm3 (150-450); RBC Distribution Width CV 14.4 % (11.6-14.6); RBC Distribution Width SD 51.6 fl (35.1-43.9); Red Blood Count 3.31 M/mm3 (4.2-5.4)
[2019-05-09 06:51] LABS: Anion Gap 11 (5-15); BUN 14 mg/dL (7-18); BUN/Creat Ratio 11.8 RATIO (10-20); Calcium,Total 7.9 mg/dL (8.5-10.1); Chloride 108 mmol/L (98-107); Creatinine, Serum 1.19 mg/dL (0.55-1.02); EST Glomerular Filtration Rate 47 mL/min (>60); Est Glom Filt Rate - Afr Amer 57 mL/min (>60); Glucose 172 mg/dL (74-106); Potassium 4.3 mmol/L (3.5-5.1); Sodium Level 142 mmol/L (136-145)
[2019-05-09] MEDS: Phenazopyridine 95 MG Tablet 190 MG PO ×3 (08:12→17:26)
[2019-05-09] MEDS: buPROPion (XL) 150 MG TABLET.XL PO (08:13)
[2019-05-09] MEDS: Citalopram 40 MG TABLET PO (08:13)
[2019-05-09] MEDS: guaiFENesin 1,200 MG Tablet 1200 MG PO ×2 (08:14→21:00)
[2019-05-09] MEDS: oxyCODONE 5 MG Tablet PO ×2 (08:16→17:30)
--- NOTE | 2019-05-09 09:06 | PCM.PN.HOSP ---
Patient Problems: Active and Suspected Problems (Last Reviewed 05/09/19 @ 08:18 by Jeff Pappas MD) Acute respiratory failure with hypoxemia (Acute) Subjective: Patient is a 73-year-old female with multiple comorbidities including COPD, history of rectal carcinoma who presented with progressive shortness of breath. Patient was found to be significant hypoxic saturating 81% on 4 L. Imaging studies obtained on admission demonstrated Increased hazy density of the right lung base which may represent atelectasis or pneumonic process admitted to monitored bed for further management Objective: GENERAL: Ill-looking HEENT: Atraumatic; EYES; Anicteric, Normal Conjunctiva NECK; supple, normal thyroid, RESPIRATORY: Diminished to auscultation bilaterally, CARDIOVASCULAR: Regular S1 S2, GI: soft, non-tender, normoactive bowel sounds, : No Renal angle tenderness; EXTREMITIES: No edema, no clubbing, MUSCULOSKELETAL: No Joint Tenderness; NEURO: Awake; no lateralizing signs. SKIN: Skin tears on right lower extremity PSYCH;tearful Vitals/I&O's: Vital Signs Temp Pulse Resp BP Pulse Ox 98 F 86 18 96/65 95 05/09/19 06:24 05/09/19 06:24 05/09/19 06:24 05/09/19 06:24 05/09/19 06:24 Oxygen Flow Rate (L/min) 5 Oxygen Delivery Method Nasal Cannula Weight: 53.3 kg Body Mass Index (BMI) 21.4 Finger Stick Blood Glucose 92 Intake and Output for Last 24 Hours 05/07/19 05/08/19 05/09/19 23:59 23:59 23:59 Intake Total 1780 / 1780 Output Total Balance 1779 / 1779 Microbiology Past 72 Hours 05/08/19 23:40 Urine, Clean Catch Streptococcus pneumoniae Antigen (M - Final 05/08/19 23:40 Urine, Random Legionella Antigen - Final Laboratory Results 05/08/19 19:40: WBC 14.0 H, RBC 3.93 L, Hgb 12.0, Hct 37.8, MCV 96.2, MCH 30.5, MCHC 31.7 L, RDW 14.3, RDW Differential 51.0 H, Plt Count 182, MPV 9.0, Immature Gran % (Auto) 0.300, Neut % (Auto) 86.6 H, Lymph % (Auto) 5.2 L, [place] % (Auto) 5.9, Eos % (Auto) 2.0, Baso % (Auto) 0.0, Absolute Neuts (auto) 12.1 H, Absolute Lymphs (auto) 0.72 L, Total Counted Not Reportable 05/08/19 19:40: Sodium 135 L, Potassium 3.7, Chloride 103, Carbon Dioxide 24.0, Anion Gap 8, BUN 14, Creatinine 1.19 H, Estim Creat Clear Calc 33.30, Est GFR (MDRD) Af Amer 57 L, Est GFR (MDRD) Non-Af 47 L, BUN/Creatinine Ratio 11.8, Glucose 117 H, Calcium 8.5, Troponin I < 0.015 05/09/19 05:45: WBC 10.0, RBC 3.31 L, Hgb 9.9 L, Hct 32.2 L, MCV 97.3, MCH 29.9, MCHC 30.7 L, RDW 14.4, RDW Differential 51.6 H, Plt Count 168, MPV 9.1, Immature Gran % (Auto) 0.300, Neut % (Auto) 90.7 H, Lymph % (Auto) 6.0 L, [place] % (Auto) 2.6, Eos % (Auto) 0.3, Baso % (Auto) 0.1, Absolute Neuts (auto) 9.0 H, Absolute Lymphs (auto) 0.60 L, Total Counted Not Reportable, Differential Comment 05/09/19 05:45: Sodium 142, Potassium 4.3, Chloride 108 H, Carbon Dioxide 23.0, Anion Gap 11, BUN 14, Creatinine 1.19 H, Estim Creat Clear Calc 33.30, Est GFR (MDRD) Af Amer 57 L, Est GFR (MDRD) Non-Af 47 L, BUN/Creatinine Ratio 11.8, Glucose 172 H, Calcium 7.9 L Current Medications Albuterol Sulfate (Ventolin Aerosols) 2.5 mg INHALATION Q2H PRN PRN PRN Reason: SHORTNESS OF BREATH Albuterol/Ipratropium (Duoneb) 3 ml INHALATION Q4H.RT [facility] Last Admin: 05/09/19 06:56 Dose: 3 ml Documented by: Bisacodyl (Dulcolax) 10 mg PO DAILY PRN PRN PRN Reason: Constipation Bupropion HCl (Wellbutrin Xl) 150 mg PO QAM [facility] Last Admin: 05/09/19 08:13 Dose: 150 mg Documented by: Citalopram Hydrobromide (Celexa) 40 mg PO DAILY [facility] Last Admin: 05/09/19 08:13 Dose: 40 mg Documented by: Enoxaparin Sodium (Lovenox) 30 mg SC DAILY@0600 [facility] Last Admin: 05/09/19 05:24 Dose: 30 mg Documented by: Guaifenesin (Mucinex) 1,200 mg PO BID [facility] Last Admin: 05/09/19 08:14 Dose: 1,200 mg Documented by: Azithromycin 500 mg/ Dextrose 255 mls @ 250 mls/hr IV Q24H [facility] Ceftriaxone Sodium (Rocephin) 1 gm in 50 mls @ 100 mls/hr IV Q12H [facility] Sodium Chloride () 250 mls @ 15 mls/hr IV .[id number] PRN PRN Reason: SALINE FLUSH Levothyroxine Sodium (Synthroid) 100 mcg PO DAILY@0600 [facility] Last Admin: 05/09/19 05:24 Dose: 100 mcg Documented by: Methylprednisolone (Solu-Medrol) 40 mg IV Q8 [facility] Last Admin: 05/09/19 05:24 Dose: 40 mg Documented by: Ondansetron HCl (Zofran) 4 mg IV Q8H PRN PRN PRN Reason: Nausea Oxycodone HCl (Oxyir) 5 mg PO Q6H PRN PRN PRN Reason: PAIN Last Admin: 05/09/19 08:16 Dose: 5 mg Documented by: Phenazopyridine HCl (Azo Standard) 190 mg PO TIDCM [facility] Last Admin: 05/09/19 08:12 Dose: 190 mg Documented by: Sodium Chloride () 10 - 40 ml IV UD PRN PRN Reason: SALINE FLUSH Last Admin: 05/09/19 05:25 Dose: 10 ml Documented by: Medical Necessity - Tobacco Use Smoking Status: Former smoker Assessment/Plan All Active Problems (Last Reviewed 05/09/19 @ 08:18 by Jeff Pappas MD) Urinary tract infection (Acute) Acute kidney injury (Acute) Bilateral ureteral calculi (Acute) Hydronephrosis due to obstruction of ureter (Acute) Acute respiratory failure with hypoxemia (Acute) Hypoxia (Acute) Asthma-COPD overlap syndrome (Acute) History of colostomy (Resolved) History of cholecystectomy (Resolved) History of bowel resection (Resolved) History of hysterectomy (Resolved) History of delivery (Resolved) COPD exacerbation (Acute) TIA (transient ischemic attack) (Acute) 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 calculus (Acute) Filling defect on imaging study (Acute) Patient is a 73-year-old female with multiple comorbidities including COPD, history of rectal carcinoma who presented with progressive shortness of breath. Patient was found to be significant hypoxic saturating 81% on 4 L. Imaging studies obtained on admission demonstrated Increased hazy density of the right lung base which may represent atelectasis or pneumonic process admitted to monitored bed for further management 1. Acute hypoxic respiratory failure secondary to suspected community-acquired pneumonia as well as COPD exacerbation 2. Pneumonia: Suspected to be secondary to streptococci pneumonia. Blood and sputum cultures sent. Patient placed on Rocephin and Zithromax. He was also placed on oxygen titrated to keep also is greater than 90 3. COPD with acute exacerbation possibly preceded by above patient was managed with aerosol treatment antibiotics as well as systemic steroids in addition to supplemental oxygen. Patient is followed by Dr. Santos she requested consultation with him 4. History of rectal cancer status post surgery with colectomy and chemoradiation therapy with resultant colostomy 5. Hypothyroidism-patient is on levothyroxine home dose continued 6. Depression with anxiety 7. History of recurrent UTIs and kidney stones with presence of stents scheduled to be removed on 05/14/2019 8. Fall with left knee contusion 9. DVT prophylaxis SC Lovenox Clinical Impression(s) from Imaging Studies Chest X-Ray 05/08/19 19:23 IMPRESSION: Increased hazy density of the right lung base which may represent atelectasis or pneumonic process. This appears similar to the prior study. Calcified plaques of the aortic arch. Electronically Signed: Shawn Zuñiga MD at 19:52 EDT , Service support , Code Visit Inpatient E&M: [id number] [facility] Hosp L3
[2019-05-09] MEDS: Ceftriaxone 1 GM/50 ML BAG IV ×2 (10:08→21:00)
[2019-05-09] MEDS: ALPRAZolam 0.25 MG Tablet PO ×2 (11:20→21:58)
[2019-05-10] VITALS (15 sets, daily range): BP systolic 94–112; BP diastolic 54–67; PULSE 75–91; RESP 16–20; TEMP 36.5–36.9; O2SAT 85–96
[2019-05-10 05:34] LABS: Absolute Lymphocyte Count 0.92 X10^3/ul (0.83-4.51); Absolute Neutrophil Count 13.1 X10^3/uL (2.0-7.7); Basophil# 0.01 X10^3/uL; Basophil% 0.1 % (0-1); Eosinophil# 0.01 X10^3/uL; Eosinophils% 0.1 % (0-5); Hematocrit 32.2 % (37-47); Hemoglobin 9.8 g/dl (12.0-15.0); Lymphocyte # 0.92 X10^3/ul (4.0); Lymphocyte % 6.3 % (19-41); Mean Corp Hgb Conc 30.4 g/gl (32-36); Mean Corpuscular Hgb 29.7 pg (27.0-32.0); Mean Corpuscular Volume 97.6 fL (81-99); Mean Platelet Vol. 8.9 fl (6.2-12.0); Monocyte# 0.56 X10^3/uL; Monocyte% 3.8 % (0-10); Neutrophil # 13.14 X10^3/uL (2.7-7.7); Neutrophil % 89.2 % (47-70); Platelet Count 218 K/mm3 (150-450); RBC Distribution Width CV 14.1 % (11.6-14.6); White Blood Count 14.7 K/mm3 (4.4-11.0)
[2019-05-10 05:37] LABS: POSITIVE COUNT NO; POSITIVE DIFFERENTIAL NO; POSITIVE MORPHOLOGY NO
[2019-05-10 05:46] LABS: Anion Gap 10 (5-15); BUN 23 mg/dL (7-18); BUN/Creat Ratio 23.3 RATIO (10-20); Calcium,Total 7.8 mg/dL (8.5-10.1); Chloride 110 mmol/L (98-107); Creatinine, Serum 0.99 mg/dL (0.55-1.02); EST Glomerular Filtration Rate 58 mL/min (>60); Est Glom Filt Rate - Afr Amer 71 mL/min (>60); Estimated Creatinine Clearance 40.03 ml/min; Glucose 127 mg/dL (74-106); Potassium 3.7 mmol/L (3.5-5.1); Sodium Level 143 mmol/L (136-145)
[2019-05-10] MEDS: Levothyroxine 100 MCG Tablet PO (05:57)
[2019-05-10] MEDS: 0.9% NaCl Peripheral Flush Adult/Peds IV ×2 (05:57→17:06)
[2019-05-10] MEDS: Enoxaparin 30 MG/0.3 ML Syringe SC (05:57)
--- NOTE | 2019-05-10 06:30 | PCM.CONS.PUL ---
Reason for Consult Date of Consultation: 05/10/19 Reason for Consultation: Shortness of breath/hypoxemia History of Present Illness: The patient is a 73-year-old female, with a history as outlined below, who presented to the emergency department on May 08 with complaints of shortness of breath and hypoxemia. The patient is currently followed in the pulmonary medicine clinic. She has a history of COPD/asthma overlap syndrome with pulmonary function studies from March 2018 demonstrating evidence of a partially reversible moderate large airways obstructive ventilatory defect with symmetric reduction in diffusing capacity. The patient does have an approximate [id number] smoking history, having quit completely in October 2018. I last saw the patient in the pulmonary medicine clinic in November 2018. At that time, the patient did not have a baseline supplemental oxygen requirement. In addition, her shortness of breath complaints were quite minimal and she was only utilizing an albuterol rescue inhaler on an exceedingly infrequent basis. The patient last completed a formal 6-minute walk test in March 2018 with a resting oxygen saturation noted to be 96% on room air. With ambulation, the kit oxygen saturation was 93%. Surface echocardiogram from February 2018 revealed normal LV size and function with an ejection fraction of 60%. Bubble contrast study was negative for the presence of an inter atrial shunt. Pulmonary artery systolic pressure was estimated to be 26 mmHg. On May 07, I was contacted by the emergency department provider after the patient presented there after sustaining a left leg injury due to a fall. During her emergency department visit at that time, the patient was noted to be hypoxemic, which was new for her. She was subsequently referred to follow-up with us in the pulmonary medicine clinic. Later that day, the patient was evaluated by our nurse practitioner in the pulmonary medicine office. Exhaled nitric oxide testing performed during her office visit revealed a level of 17. Given her new supplemental oxygen requirement, the patient was referred to undergo a CTA of her chest to evaluate for the presence of pulmonary embolism. That imaging study, which was completed on May 07, revealed evidence of a small pericardial effusion without evidence of a PE. Lung taylor were grossly clear without evidence of pneumonia or pleural effusion. On presentation to the emergency department on May 08, the patient was noted to be tachycardic but hemodynamically stable. She was initially documented to be saturating 87% on 4 L/min. Laboratory evaluation revealed only mildly elevated white blood cell count of 14,000. Chemistry profile was notable only for a creatinine of 1.19. Troponin was negative. Plain film chest x-ray was initially reported to reveal a hazy density in the right lung base. However, upon my review of the patient's chest imaging, her lung taylor appear grossly clear. There is no blunting of the costophrenic angles. The lung taylor are hyperinflated. The patient was given aerosol treatments and IV Solu-Medrol. She was also started on antimicrobial therapy. The patient was then admitted to the progressive care unit for further management. Past Medical History Past Medical History (Chronic Problems): Chronic Problems (Last Reviewed 05/09/19 @ 08:18 by Jeff Pappas MD) Hypothyroidism (Chronic) Anxiety (Chronic) Depression (Chronic) Nicotine abuse (Chronic) COPD (chronic obstructive pulmonary disease) (Chronic) Chronic bronchitis (Chronic) Hydronephrosis, right (Chronic) History of rectal cancer (Chronic) Medical History: Medical History (Last Reviewed 05/09/19 @ 08:18 by Jeff Pappas MD) History of hysterectomy (Resolved) Z90.710 COPD exacerbation (Acute) J44.1 Hypothyroidism (Chronic) E03.9 Anxiety (Chronic) F41.9 Depression (Chronic) F32.9 Nicotine abuse (Chronic) Z72.0 TIA (transient ischemic attack) (Acute) G45.9 COPD (chronic obstructive pulmonary disease) (Chronic) J44.9 Chronic bronchitis (Chronic) J42 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 calculus (Acute) N20.1 Hydronephrosis, right (Chronic) N13.30 Filling defect on imaging study (Acute) R93.8 Filling defect in proximal right colon on CT abdomen History of rectal cancer (Chronic) Z85.048 Allergies ciprofloxacin [From Cipro] Allergy (Verified 05/08/19 19:10) Rash ciprofloxacin HCl [From Cipro] Allergy (Verified 05/08/19 19:10) Rash Penicillins Allergy (Verified 05/08/19 19:10) Hives codeine Adverse Reaction (Verified 05/08/19 19:10) makes her feel weird makes her feel weird NSAIDS (Non-Steroidal Anti-Inflamma Adverse Reaction (Verified 05/08/19 19:10) kidney damage r/t long-term usage advised not to use kidney damage r/t long-term usage advised not to use MAGNESIUM CITRATE Adverse Reaction (Uncoded 05/08/19 19:10) Nausea Home Medications: Ambulatory Orders Medication Instructions Recorded Albuterol IH (ProAir) [Proair Hfa] 1 puff INHALATION Q4H PRN PRN #1 01/29/18 inhaler bupropion HCl XL 150 mg 24 hr 150 mg PO QAM 11/28/18 tablet, extended release Citalopram [Celexa] 40 mg PO DAILY 04/24/19 Nitrofurantoin Macrocrystal 100 mg PO BID 05/06/19 [Nitrofurantoin] Oxycodone HCl/Acetaminophen 1 tab PO Q6H PRN PRN 05/06/19 [Oxycodone-Acetaminophen 5-325] Levothyroxine [Synthroid] 25 mcg PO DAILY 05/08/19 Levothyroxine [Synthroid] 75 mcg PO DAILY 05/08/19 Phenazopyridine HCl 200 mg PO TID 05/08/19 Surgical History: Surgical History (Last Reviewed 05/09/19 @ 08:18 by Jeff Pappas MD) History of colostomy (Resolved) Z98.890 History of cholecystectomy (Resolved) Z90.49 History of bowel resection (Resolved) Z98.890, Z90.49 History of delivery (Resolved) Z98.891 Surgical History: cholecystectomy, tonsillectomy, - - bowel resection, colostomy Psychiatric History: No pertinent psych hx 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 Denies: Cough Gastrointestinal: Denies: Abdominal Pain, Nausea, Vomiting Genitourinary: Denies: Dysuria Musculoskeletal: Denies: Joint Pain, Joint Tenderness Skin: Denies: Rash, Wounds Neurological: Denies: Numbness, Tingling, Focal weakness Psychiatric: Reports: Anxiety Hematologic/ Lymphatic: Reports: Anemia Patient Problems: Active and Suspected Problems (Last Reviewed 05/09/19 @ 08:18 by Jeff Pappas MD) Acute respiratory failure with hypoxemia (Acute) Objective: The patient's most recent lab work, culture data and imaging studies have all been personally reviewed. - Physical Exam General: Alert, Oriented x3, Cooperative, No apparent distress HEENT: Atraumatic, PERRLA, Normocephalic Oral: No Gingival or Mucosal Lesions/ Ulcerations Neck: Supple, No Nodes, Trachea Midline Lungs: Diminished, Rales - Basilar Cardiovascular: Regular rate, Regular Rhythm, Normal S1, Normal S2, No murmurs Abdomen: Bowel Sounds Present, Soft, Non Tender, - - + Ostomy Extremities: No clubbing, No cyanosis, No edema Skin: No breakdown Musculoskeletal: No Tenderness to Palpation of Joints or Extremities, No Muscle Wasting Lymphatic: No Cervical, Supraclavicular, or Inguinal Adenopathy Neurological: Cranial nerves II-XII grossly intact, Neuro grossly intact Psych/Mental Status: Alert and oriented to time, place, person, mood and affect Vital Signs Temp Pulse Resp BP Pulse Ox 97.8 F 75 18 94/59 L 92 05/10/19 05:50 05/10/19 05:50 05/10/19 05:50 05/10/19 05:50 05/10/19 05:50 Oxygen Flow Rate (L/min) 5 Oxygen Delivery Method Nasal Cannula Weight: 117 lb 8.102 oz Body Mass Index (BMI) 21.4 Finger Stick Blood Glucose 92 Intake and Output for Last 24 Hours 05/08/19 05/09/19 05/10/19 23:59 23:59 23:59 Intake Total 4664 / 4664 60 / 60 Output Total 1451 / 1451 450 / 450 Balance 3213 / 3213 -390 / -390 Microbiology Past 72 Hours 05/08/19 23:40 Streptococcus pneumoniae Antigen (M - Final Urine, Clean Catch 05/08/19 23:40 Legionella Antigen - Final Urine, Random Laboratory Tests Past 24 Hrs 05/09/19 05/09/19 05/10/19 05:45 05:45 05:20 WBC 10.0 14.7 H RBC 3.31 L 3.30 L Hgb 9.9 L 9.8 L Hct 32.2 L 32.2 L MCV 97.3 97.6 MCH 29.9 29.7 MCHC 30.7 L 30.4 L RDW 14.4 14.1 RDW Differential 51.6 H 48.0 H Plt Count 168 218 MPV 9.1 8.9 Immature Gran % (Auto) 0.300 0.500 Neut % (Auto) 90.7 H 89.2 H Lymph % (Auto) 6.0 L 6.3 L [place] % (Auto) 2.6 3.8 Eos % (Auto) 0.3 0.1 Baso % (Auto) 0.1 0.1 Absolute Neuts (auto) 9.0 H 13.1 H Absolute Lymphs (auto) 0.60 L 0.92 Total Counted Not Reportable Not Reportable Differential Comment Sodium 142 Potassium 4.3 Chloride 108 H Carbon Dioxide 23.0 Anion Gap 11 BUN 14 Creatinine 1.19 H Estim Creat Clear Calc 33.30 Est GFR (MDRD) Af Amer 57 L Est GFR (MDRD) Non-Af 47 L BUN/Creatinine Ratio 11.8 Glucose 172 H Calcium 7.9 L Magnesium 05/10/19 05:20 WBC RBC Hgb Hct MCV MCH MCHC RDW RDW Differential Plt Count MPV Immature Gran % (Auto) Neut % (Auto) Lymph % (Auto) [place] % (Auto) Eos % (Auto) Baso % (Auto) Absolute Neuts (auto) Absolute Lymphs (auto) Total Counted Differential Comment Sodium 143 Potassium 3.7 Chloride 110 H Carbon Dioxide 23.0 Anion Gap 10 BUN 23 H Creatinine 0.99 Estim Creat Clear Calc 40.03 Est GFR (MDRD) Af Amer 71 Est GFR (MDRD) Non-Af 58 L BUN/Creatinine Ratio 23.3 H Glucose 127 H Calcium 7.8 L Magnesium 2.0 Clinical Impression(s) from Imaging Studies Chest X-Ray 05/08/19 19:23 IMPRESSION: Increased hazy density of the right lung base which may represent atelectasis or pneumonic process. This appears similar to the prior study. Calcified plaques of the aortic arch. Electronically Signed: Shawn Zuñiga MD at 19:52 EDT , Service support , Assessment/Plan All Active Problems (Last Reviewed 05/09/19 @ 08:18 by Jeff Pappas MD) Urinary tract infection (Acute) Acute kidney injury (Acute) Bilateral ureteral calculi (Acute) Hydronephrosis due to obstruction of ureter (Acute) Acute respiratory failure with hypoxemia (Acute) Hypoxia (Acute) Asthma-COPD overlap syndrome (Acute) History of colostomy (Resolved) History of cholecystectomy (Resolved) History of bowel resection (Resolved) History of hysterectomy (Resolved) History of delivery (Resolved) COPD exacerbation (Acute) TIA (transient ischemic attack) (Acute) 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 calculus (Acute) Filling defect on imaging study (Acute) RECOMMENDATIONS: 1. Given worsening hypoxemia, obtain noncontrasted chest CT. 2. Low clinical index of suspicion for underlying pulmonary infectious process. Okay from my perspective to discontinue antibiotics. 3. Transition from IV methylprednisone to prednisone 40 mg daily by mouth. 4. Check iron studies and stool for occult blood. 5. Obtain arterial blood gas. 6. Obtain echocardiogram and check BNP. IMPRESSIONS: 1. Acute hypoxic respiratory failure The patient was recently evaluated in the pulmonary medicine clinic on May 07, at which time, she was identified as having a new supplemental oxygen requirement. While the patient does have known underlying moderate obstructive lung disease, prior 6-minute walk test completed in 2018 revealed no need for supplemental oxygen with exertion. Recent CTA chest showed no evidence for pulmonary embolism. The patient is currently without complaints of a productive cough. In light of her plain film chest x-ray findings noted on admission, I have a low clinical index of suspicion for underlying pulmonary infectious process. Therefore, I would recommend discontinuation of antibiotics. Her IV steroids will be transitioned to prednisone 40 mg daily by mouth. I did advise the patient that we would need to obtain repeat pulmonary function studies on an outpatient basis to assess for interval disease progression. In the meantime, I would recommend obtaining a repeat echocardiogram to evaluate for any underlying cardiac dysfunction, pulmonary hypertension or shunt. Check BNP as well. The patient also does appear to have rather new anemia, which could also be contributing to her shortness of breath. Wean supplemental oxygen as tolerated to maintain saturations at or above 90%. In addition to the aforementioned, I would recommend the time of her discharge, that she be started on a combination LABA/ICS maintenance inhaler. 2. Normocytic anemia The patient does have a history of rectal cancer. We will plan to check iron studies as well as fecal occult blood. 3. Hypothyroidism The patient was last noted to have a TSH level of 18.6 in April 2019. The patient reports that her PCP is currently managing her hypothyroidism. Recheck TSH and free T4. This note was generated with [employer] dictation software. It may contain incorrect words, spelling, and punctuation that were not noted in checking the note before signing. Code Visit Inpatient E&M: [id number] Init Hosp L3
[2019-05-10] MEDS: Ipratropium/Albuterol Sulfate 3 ML AMPUL.NEB INHALATION ×5 (06:42→23:03)
--- NOTE | 2019-05-10 06:42 | ECHOD_ITS ---
Reason For Study: Dyspnea/SOB Procedure This was a 2D Doppler, Color Flow transthoracic echocardiogram. The exam was of adequate technical quality. Exam performed portable in patient room. Left Ventricle Normal LV size. Left ventricular systolic function is normal. The estimated ejection fraction is 70 %. No evidence for diastolic dysfunction. No regional wall motion abnormalities noted. Right Ventricle Normal RV size. Normal systolic function. Atria The left atrium is mildly enlarged. Normal right atrium. Aneurysmal atrial septum. Mitral Valve There is mild mitral annular calcification. Normal mitral valve. Trivial mitral valve insufficiency. Tricuspid Valve Normal tricuspid valve. Trivial tricuspid valve insufficiency. Right ventricular systolic pressure estimated to be 29 mmHg. Aortic Valve Trisinus/trileaflet aortic valve. Mild diffuse aortic valve thickening. Pulmonic Valve The pulmonic valve is not well visualized. Great Vessels Normal sized aortic root. Pericardium/Pleural No pericardial effusion. Epicardial fat. MMode/2D Measurements & Calculations LVIDd: 3.9 cm IVSd: 1.1 cm Ao root diam: 2.8 cm LVIDs: 2.1 cm LVPWd: 1.0 cm LA dimension: 3.0 cm RVDd: 3.3 cm FS: 46.3 % LAV(MOD-bp): 45.5 ml LA A4 area: 16.8 cm2 RA A4 area: 10.7 cm2 LAV(MOD-bp) Indexed: 29.9 ml/m2 LAV(MOD-sp2): 48.1 ml LAV(MOD-sp4): 44.3 ml Time Measurements MV dec time: 0.21 sec Doppler Measurements & Calculations MV E max alon: 80.9 cm/sec Lat Peak E' Alon: 12.5 cm/sec Med Peak E' Alon: 9.0 cm/sec MV A max alon: 87.0 cm/sec E/E' lat: 6.5 E/E' med: 9.0 MV E/A: 0.93 MV V2 max: 118.5 cm/sec MV P1/2t max alon: 102.1 cm/sec Ao V2 max: 142.5 cm/sec MV max P.6 mmHg MV P1/2t: 80.6 msec Ao max P.1 mmHg MV V2 mean: 73.5 cm/sec MV dec slope: 371.0 cm/sec2 MV mean P.5 mmHg MVA(P1/2t): 2.7 cm2 MV V2 VTI: 24.5 cm LV V1 max: 116.3 cm/sec PA V2 max: 95.3 cm/sec TR max alon: 256.6 cm/sec LV V1 max P.4 mmHg TR max P.3 mmHg Interpretation Summary Left ventricular systolic function is normal. The estimated ejection fraction is 70 %. The left atrium is mildly enlarged. There is mild mitral annular calcification. Trivial mitral valve insufficiency. Trivial tricuspid valve insufficiency. Mild diffuse aortic valve thickening. Epicardial fat. Right ventricular systolic pressure estimated to be 29 mmHg. No evidence for diastolic dysfunction. 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 Ordering Physician: Mayco Santos Referring Physician: Jeff Pappas Performed By: Jadiel Cedeño RCS
--- NOTE | 2019-05-10 06:43 | CT_ITS ---
STUDY: CT CHEST WITHOUT CONTRAST REASON FOR EXAM: Female, 73 years old. Hypoxia. RADIATION DOSAGE (If Supplied By Facility): CTDIvol = ( 6.71 ) mGy, DLP = ( 256.68 ) mGycm TECHNIQUE: Transaxial imaging was performed without the administration of intravenous contrast material. Multiplanar coronal and sagittal images were reformatted. Individualized dose optimization techniques were used for this CT. COMPARISON: Comparison is made with prior study dated May 07, 2019. FINDINGS: Hyperinflation. Small bilateral pleural effusions with bibasilar atelectasis and/or infiltrates. These have progressed as compared to prior study. Mild degree of emphysematous changes. Minimal anterior pericardial thickening. There are multiple small lymph nodes within the mediastinum, which are normal in size and morphology most compatible with reactive lymph hyperplasia. Normal hilar regions. Normal unenhanced pulmonary arteries. There is atherosclerotic calcification of the aortic arch. There is demineralization of the thoracic spine. Small hiatal hernia. Bilateral intrarenal calculi in the left double-J stent catheter. CT/Chest without Contrast IMPRESSION: Small bilateral pleural effusions with bibasilar atelectasis and/or infiltration. This has progressed as compared to prior study. The remainder of the examination is unchanged. Electronically Signed: Chriss Boateng, at 8:25 EDT , Service support ,
--- NOTE | 2019-05-10 07:20 | PCM.PN.HOSP ---
Patient Problems: Active and Suspected Problems (Last Reviewed 05/09/19 @ 08:18 by Jeff Pappas MD) Acute respiratory failure with hypoxemia (Acute) Subjective: Patient seen she admits to some improvements in her overall condition. Case was discussed with patient's post anesthesia care unit nurse regarding the progression of her symptoms over the past month. Plan is to obtain subsequent evaluation with CT of the chest as well as 2D echo. Also did discuss patient's CODE STATUS with her and her daughter Objective: GENERAL: Ill-looking HEENT: Atraumatic; EYES; Anicteric, Normal Conjunctiva NECK; supple, normal thyroid, RESPIRATORY: Diminished to auscultation bilaterally, CARDIOVASCULAR: Regular S1 S2, GI: soft, non-tender, normoactive bowel sounds, : No Renal angle tenderness; EXTREMITIES: No edema, no clubbing, MUSCULOSKELETAL: No Joint Tenderness; NEURO: Awake; no lateralizing signs. SKIN: Skin tears on right lower extremity PSYCH;tearful Vitals/I&O's: Vital Signs Temp Pulse Resp BP Pulse Ox 97.9 F 85 16 108/65 93 05/10/19 06:52 05/10/19 06:52 05/10/19 06:52 05/10/19 06:52 05/10/19 06:52 Oxygen Flow Rate (L/min) 5 Oxygen Delivery Method Nasal Cannula Weight: 53.3 kg Body Mass Index (BMI) 21.4 Finger Stick Blood Glucose 92 Intake and Output for Last 24 Hours 05/08/19 05/09/19 05/10/19 23:59 23:59 23:59 Intake Total 4664 / 4664 60 / 60 Output Total 1451 / 1451 450 / 450 Balance 3213 / 3213 -390 / -390 Microbiology Past 72 Hours 05/08/19 23:40 Urine, Clean Catch Streptococcus pneumoniae Antigen (M - Final 05/08/19 23:40 Urine, Random Legionella Antigen - Final Laboratory Results 05/10/19 05:20: WBC 14.7 H, RBC 3.30 L, Hgb 9.8 L, Hct 32.2 L, MCV 97.6, MCH 29.7, MCHC 30.4 L, RDW 14.1, RDW Differential 48.0 H, Plt Count 218, MPV 8.9, Immature Gran % (Auto) 0.500, Neut % (Auto) 89.2 H, Lymph % (Auto) 6.3 L, [place] % (Auto) 3.8, Eos % (Auto) 0.1, Baso % (Auto) 0.1, Absolute Neuts (auto) 13.1 H, Absolute Lymphs (auto) 0.92, Total Counted Not Reportable 05/10/19 05:20: Sodium 143, Potassium 3.7, Chloride 110 H, Carbon Dioxide 23.0, Anion Gap 10, BUN 23 H, Creatinine 0.99, Estim Creat Clear Calc 40.03, Est GFR (MDRD) Af Amer 71, Est GFR (MDRD) Non-Af 58 L, BUN/Creatinine Ratio 23.3 H, Glucose 127 H, Calcium 7.8 L, Magnesium 2.0 Current Medications Albuterol Sulfate (Ventolin Aerosols) 2.5 mg INHALATION Q2H PRN PRN PRN Reason: SHORTNESS OF BREATH Albuterol/Ipratropium (Duoneb) 3 ml INHALATION Q4H.RT [facility] Last Admin: 05/10/19 06:42 Dose: 3 ml Documented by: Alprazolam (Xanax) 0.25 mg PO TID PRN PRN PRN Reason: ANXIETY Last Admin: 05/09/19 21:58 Dose: 0.25 mg Documented by: Bisacodyl (Dulcolax) 10 mg PO DAILY PRN PRN PRN Reason: Constipation Bupropion HCl (Wellbutrin Xl) 150 mg PO QAM [facility] Last Admin: 05/09/19 08:13 Dose: 150 mg Documented by: Citalopram Hydrobromide (Celexa) 40 mg PO DAILY [facility] Last Admin: 05/09/19 08:13 Dose: 40 mg Documented by: Enoxaparin Sodium (Lovenox) 30 mg SC DAILY@0600 [facility] Last Admin: 05/10/19 05:57 Dose: 30 mg Documented by: Guaifenesin (Mucinex) 1,200 mg PO BID [facility] Last Admin: 05/09/19 21:00 Dose: 1,200 mg Documented by: Azithromycin 500 mg/ Dextrose 255 mls @ 250 mls/hr IV Q24H [facility] Last Admin: 05/09/19 21:58 Dose: 250 mls/hr Documented by: Ceftriaxone Sodium (Rocephin) 1 gm in 50 mls @ 100 mls/hr IV Q12H [facility] Last Admin: 05/09/19 21:00 Dose: 100 mls/hr Documented by: Sodium Chloride () 250 mls @ 15 mls/hr IV .[id number] PRN PRN Reason: SALINE FLUSH Levothyroxine Sodium (Synthroid) 100 mcg PO DAILY@0600 [facility] Last Admin: 05/10/19 05:57 Dose: 100 mcg Documented by: Methylprednisolone (Solu-Medrol) 40 mg IV Q8 [facility] Last Admin: 05/10/19 05:57 Dose: 40 mg Documented by: Ondansetron HCl (Zofran) 4 mg IV Q8H PRN PRN PRN Reason: Nausea Oxycodone HCl (Oxyir) 5 mg PO Q6H PRN PRN PRN Reason: PAIN Last Admin: 05/09/19 17:30 Dose: 5 mg Documented by: Phenazopyridine HCl (Azo Standard) 190 mg PO TIDCM [facility] Last Admin: 05/09/19 17:26 Dose: 190 mg Documented by: Sodium Chloride () 10 - 40 ml IV UD PRN PRN Reason: SALINE FLUSH Last Admin: 05/10/19 05:57 Dose: 10 ml Documented by: Medical Necessity - Tobacco Use Smoking Status: Former smoker Assessment/Plan All Active Problems (Last Reviewed 05/09/19 @ 08:18 by Jeff Pappas MD) Urinary tract infection (Acute) Acute kidney injury (Acute) Bilateral ureteral calculi (Acute) Hydronephrosis due to obstruction of ureter (Acute) Acute respiratory failure with hypoxemia (Acute) Hypoxia (Acute) Asthma-COPD overlap syndrome (Acute) History of colostomy (Resolved) History of cholecystectomy (Resolved) History of bowel resection (Resolved) History of hysterectomy (Resolved) History of delivery (Resolved) COPD exacerbation (Acute) TIA (transient ischemic attack) (Acute) 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 calculus (Acute) Filling defect on imaging study (Acute) Patient is a 73-year-old female with multiple comorbidities including COPD, history of rectal carcinoma who presented with progressive shortness of breath. Patient was found to be significant hypoxic saturating 81% on 4 L. Imaging studies obtained on admission demonstrated Increased hazy density of the right lung base which may represent atelectasis or pneumonic process admitted to monitored bed for further management 1. Acute hypoxic respiratory failure secondary to suspected community-acquired pneumonia as well as COPD exacerbation. ~ 05/10/2019 consultation was placed to patient's post anesthesia care unit nurse Dr. Ho Case discussed with him. Plan is for patient to undergo subsequent evaluation with CT of the chest without contrast as well as 2D echo 2. Suspected pneumonia: Suspected to be secondary to streptococci pneumonia. Blood and sputum cultures sent. Patient placed on Rocephin and Zithromax. She was also placed on oxygen titrated to keep also is greater than 90 3. COPD with acute exacerbation possibly preceded by above patient was managed with aerosol treatment antibiotics as well as systemic steroids in addition to supplemental oxygen. Patient is followed by Dr. Santos she requested consultation with him 4. History of rectal cancer status post surgery with colectomy and chemoradiation therapy with resultant colostomy 5. Hypothyroidism-patient is on levothyroxine home dose continued 6. Depression with anxiety 7. History of recurrent UTIs and kidney stones with presence of stents scheduled to be removed on 05/14/2019 8. Fall with left knee contusion 9. DVT prophylaxis SC Lovenox Advance planning; did discuss with the patient and family regarding advanced directives as well as CODE STATUS. Did explain the various scenarios involved ( FULL CODE, DNR CCA, DNR CCA with no intubation, and DNR CC and what each meant) patient wishes to remain full code. Order was placed. Time spent on discussion 20 minutes. Code Visit Inpatient E&M: 90857 Subs Hosp L2 Procedures: 88903 Prolonged Physician INPT
[2019-05-10 08:00] LABS: Allen Test POS; Base Excess -4 mmol/L (-2 to +2); Bicarbonate 20.1 mmol/L (22-26); Blood Gas Specimen Type ART; O2 Delivery Device Nasal Can; PO2 88 mmHG (75-100); SITE L Radial; SO2 97 % (95-99); Time Given 730; Total Carbon Dioxide 21 mmol/L; pCO2 31.1 mmHg (35-45); pH 7.42 (7.35-7.45)
[2019-05-10] MEDS: Phenazopyridine 95 MG Tablet 190 MG PO ×3 (08:30→17:06)
[2019-05-10] MEDS: guaiFENesin 1,200 MG Tablet 1200 MG PO ×2 (08:31→22:57)
[2019-05-10] MEDS: buPROPion (XL) 150 MG TABLET.XL PO (08:31)
[2019-05-10] MEDS: Citalopram 40 MG TABLET PO (08:31)
[2019-05-10] MEDS: ALPRAZolam 0.25 MG Tablet PO ×2 (08:39→19:29)
--- NOTE | 2019-05-10 08:40 | NURSING ---
Dr. Beltran recently in here to see pt. Dr. Santos in here now talking with pt and daughter. Pt Anxious about everything going on.
[2019-05-10 09:07] LABS: Ferritin 172 ng/mL (8-252); Iron 55 ug/dL (50-170); Iron Binding Capacity,Total 315 ug/dL (250-450); PERCENT IRON SATURATION 17.5 % (15.0-55.0)
[2019-05-10 10:18] LABS: BNP,B-Type NATRIURETIC PEPTIDE 198.6 pg/mL (0-100)
--- NOTE | 2019-05-10 10:18 | NURSING ---
Was consulted to see patient for ostomy needs. pt states she has had her colostomy for 12 years and does all the care herself. denies needs at this time.
[2019-05-10 11:35] LABS: T4 Free Direct 1.12 ng/dL (0.76-1.46); Thyroid Stim Hormone (TSH) 1.31 uIU/mL (0.358-3.74)
--- NOTE | 2019-05-10 14:27 | CASEMGMT ---
RN CM Assessment Introduced role of RN CM to patient and patient Dtr Coco at bedside.? Patient is alert, oriented and able?to participate in RN CM Assessment. ?Care providers, pharmacy, and demographics verified. Presentation: Worsening SOB x3 days. Recently placed on Home O2. H/o rectal cancer status post chemotherapy with radiation and then colectomy Admit Dx: Acute Hypoxemic Resp Failure Re-Admit: Yes, Inpt 04/24-04/25/19 for Bilt Obstructing renal stones. ER 05/06-05/07/19 for fall. Barriers/Issues: Patient states that she is supposed to have surgery coming up to remove Kidney stones and place stents. PCP: Adis Mireles Specialists: Nephro- Dr in [place], thinks has an appt scheduled in June, Pul- Dr Santos, Ortho for Arthritis- Dr Haskins Preferred Pharmacy: [facility] Insurance: [facility], MMO Rx Benefit:?Yes ?LNOK: Dtr Coco Mondragon and Dtr Jessica Johnson LW/HPOA: No, Would like information Living Arrangements:?Lives alone in a SS Home, 2 steps to enter ADL?s: Was ambulating Independently x1 month ago with use of Cane as needed. Has been having to use Cane more and now the past cpl days has been using walker. Transportation: Patient drives or family. DC with Dtr or Dtr-in-law DME: Cane, Walker, Home O2 Cont 3L-Dasco. States seen by Dr Santos and states plan to place on LT inhaler. HHC: Thinks for a cpl days in the past SNF: None Goal: Home, does not think will have any needs, denies questions/concerns. Aware CM remains available for any emerging needs. DC PLAN: Home with no anticipated needs identified at this time. WILLIAM Foley
--- NOTE | 2019-05-10 15:17 | CASEMGMT ---
Social Work SW met with pt and daughter and explained Living will and health care POA. At this time pt wants to speak with her family prior to completing LW. SW did assist pt with completing HCPOA. Copy placed on chart and original given to pt with instructions to give copy to family and PCP. JOHNATHON Crabtree
[2019-05-11] VITALS (10 sets, daily range): BP systolic 119–139; BP diastolic 71–79; PULSE 73–90; RESP 16–20; TEMP 36.6–36.9; O2SAT 84–95
[2019-05-11] MEDS: Acetaminophen 325 MG Tablet 650 MG PO ×2 (00:28→09:19)
[2019-05-11] MEDS: Enoxaparin 30 MG/0.3 ML Syringe SC (05:27)
[2019-05-11] MEDS: Levothyroxine 100 MCG Tablet PO (05:27)
[2019-05-11 06:32] LABS: Absolute Lymphocyte Count 1.38 X10^3/ul (0.83-4.51); Absolute Neutrophil Count 10.1 X10^3/uL (2.0-7.7); Eosinophil# 0.03 X10^3/uL; Eosinophils% 0.2 % (0-5); Hematocrit 32.2 % (37-47); Hemoglobin 9.9 g/dl (12.0-15.0); Lymphocyte # 1.38 X10^3/ul (4.0); Lymphocyte % 11.1 % (19-41); Mean Corp Hgb Conc 30.7 g/gl (32-36); Mean Corpuscular Hgb 30.3 pg (27.0-32.0); Mean Corpuscular Volume 98.5 fL (81-99); Mean Platelet Vol. 8.7 fl (6.2-12.0); Monocyte# 0.83 X10^3/uL; Monocyte% 6.7 % (0-10); Neutrophil # 10.12 X10^3/uL (2.7-7.7); Neutrophil % 81.5 % (47-70); Platelet Count 238 K/mm3 (150-450); RBC Distribution Width CV 14.2 % (11.6-14.6); RBC Distribution Width SD 49.1 fl (35.1-43.9); Red Blood Count 3.27 M/mm3 (4.2-5.4); White Blood Count 12.4 K/mm3 (4.4-11.0)
[2019-05-11 06:36] LABS: POSITIVE COUNT NO; POSITIVE DIFFERENTIAL NO; POSITIVE MORPHOLOGY NO
[2019-05-11] MEDS: Ipratropium/Albuterol Sulfate 3 ML AMPUL.NEB INHALATION ×5 (06:44→22:46)
--- NOTE | 2019-05-11 06:47 | PCM.PN.PUL ---
Patient Problems: Active and Suspected Problems (Last Reviewed 05/09/19 @ 08:18 by Jeff Pappas MD) Acute respiratory failure with hypoxemia (Acute) Subjective: The patient was seen and examined at the bedside this morning. Events from the last 24 hours have been reviewed. The patient is currently afebrile, hemodynamically stable and maintaining appropriate oxygen saturations on 4 L/min via nasal cannula. The patient is currently documented to be overall net +4 L for the admission. Blood counts are stable this morning. BNP yesterday was noted to be 200. TSH and free T4 were within normal limits. Objective: The patient's most recent lab work, culture data and imaging studies have all been personally reviewed. CT chest without contrast dated May 10 revealed small bilateral pleural effusions. Surface echocardiogram also completed on May 10 revealed normal LV size and function with an ejection fraction of 70%. Per the report, there was no evidence of diastolic dysfunction or pulmonary hypertension. Arterial blood gas obtained on 5 L/min revealed a pH of 7.42 with a PCO2 of 31, PO2 of 88 and oxygen saturation of 97. Respiratory viral panel along with strep and urine Legionella antigens were all negative. - Physical Exam General: Alert, Cooperative, No apparent distress, - - Ambulating in her room with the assistance of a walker. HEENT: Atraumatic, PERRLA, Normocephalic Oral: No Gingival or Mucosal Lesions/ Ulcerations Neck: Supple, No Nodes, Trachea Midline Lungs: No rhonchi, No wheeze, Diminished, Rales Cardiovascular: Regular rate, Regular Rhythm, Normal S1, Normal S2, No murmurs Abdomen: Bowel Sounds Present, Soft, Non Tender, - - +Ostomy Extremities: No clubbing, No cyanosis, No edema Skin: - - No significant change from previous Musculoskeletal: No Tenderness to Palpation of Joints or Extremities Lymphatic: No Cervical, Supraclavicular, or Inguinal Adenopathy Neurological: Cranial nerves II-XII grossly intact, Neuro grossly intact Psych/Mental Status: Alert and oriented to time, place, person, mood and affect Vital Signs Temp Pulse Resp BP Pulse Ox 98.3 F 73 17 139/74 H 95 05/11/19 05:22 05/11/19 05:22 05/11/19 05:22 05/11/19 05:22 05/11/19 05:22 Oxygen Flow Rate (L/min) 6 Oxygen Delivery Method Nasal Cannula Weight: 117 lb 8.102 oz Body Mass Index (BMI) 21.4 Finger Stick Blood Glucose 92 Intake and Output for Last 24 Hours 05/09/19 05/10/19 05/11/19 23:59 23:59 23:59 Intake Total 4664 / 4664 1295 / 1295 100 / 100 Output Total 1451 / 1451 700 / 700 Balance 3213 / 3213 595 / 595 100 / 100 Microbiology Past 72 Hours 05/10/19 10:55 Respiratory Panel (PCR) - Final Mucosa - Nose 05/08/19 23:40 Streptococcus pneumoniae Antigen (M - Final Urine, Clean Catch 05/08/19 23:40 Legionella Antigen - Final Urine, Random Laboratory Tests Past 24 Hrs 05/10/19 05/10/19 05/10/19 05:20 05:20 05:20 WBC RBC Hgb Hct MCV MCH MCHC RDW RDW Differential Plt Count MPV Immature Gran % (Auto) Neut % (Auto) Lymph % (Auto) [place] % (Auto) Eos % (Auto) Baso % (Auto) Absolute Neuts (auto) Absolute Lymphs (auto) Total Counted Specimen Type Sample Site pH Bicarbonate Actual POC Total CO2 Base Excess O2 Saturation ABG pCO2 ABG pO2 Ramón Test O2 Delivery Device Liter Flow Blood Gas Notified Whom Blood Gas Notified Time Sodium Potassium Chloride Carbon Dioxide Anion Gap BUN Creatinine Est GFR (MDRD) Af Amer Est GFR (MDRD) Non-Af BUN/Creatinine Ratio Glucose Calcium Iron 55 TIBC 315 Iron Saturation 17.5 Ferritin 172 B-Natriuretic Peptide 198.6 H TSH 1.31 Free T4 1.12 05/10/19 05/11/19 05/11/19 07:54 06:00 06:00 WBC 12.4 H RBC 3.27 L Hgb 9.9 L Hct 32.2 L MCV 98.5 MCH 30.3 MCHC 30.7 L RDW 14.2 RDW Differential 49.1 H Plt Count 238 MPV 8.7 Immature Gran % (Auto) 0.500 Neut % (Auto) 81.5 H Lymph % (Auto) 11.1 L [place]aines % (Auto) 6.7 Eos % (Auto) 0.2 Baso % (Auto) 0.0 Absolute Neuts (auto) 10.1 H Absolute Lymphs (auto) 1.38 Total Counted Not Reportable Specimen Type ART Sample Site L Radial pH 7.42 Bicarbonate Actual 20.1 L POC Total CO2 21 Base Excess -4 L O2 Saturation 97 ABG pCO2 31.1 L ABG pO2 88 Ramón Test POS O2 Delivery Device Nasal Can Liter Flow 5.0 Blood Gas Notified Whom ICU Blood Gas Notified Time 730 Sodium Pending Potassium Pending Chloride Pending Carbon Dioxide Pending Anion Gap Pending BUN Pending Creatinine Pending Est GFR (MDRD) Af Amer Pending Est GFR (MDRD) Non-Af Pending BUN/Creatinine Ratio Pending Glucose Pending Calcium Pending Iron TIBC Iron Saturation Ferritin B-Natriuretic Peptide TSH Free T4 Clinical Impression(s) from Imaging Studies Chest X-Ray 05/08/19 19:23 IMPRESSION: Increased hazy density of the right lung base which may represent atelectasis or pneumonic process. This appears similar to the prior study. Calcified plaques of the aortic arch. Electronically Signed: Shawn Zuñiga MD at 19:52 EDT , Service support , Chest CT 05/10/19 06:43 IMPRESSION: Small bilateral pleural effusions with bibasilar atelectasis and/or infiltration. This has progressed as compared to prior study. The remainder of the examination is unchanged. Electronically Signed: Chriss Boateng, at 8:25 EDT , Service support , Medical Necessity - Tobacco Use Smoking Status: Former smoker Assessment/Plan All Active Problems (Last Reviewed 05/09/19 @ 08:18 by Jeff Pappas MD) Urinary tract infection (Acute) Acute kidney injury (Acute) Bilateral ureteral calculi (Acute) Hydronephrosis due to obstruction of ureter (Acute) Acute respiratory failure with hypoxemia (Acute) Hypoxia (Acute) Asthma-COPD overlap syndrome (Acute) History of colostomy (Resolved) History of cholecystectomy (Resolved) History of bowel resection (Resolved) History of hysterectomy (Resolved) History of delivery (Resolved) COPD exacerbation (Acute) TIA (transient ischemic attack) (Acute) 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 calculus (Acute) Filling defect on imaging study (Acute) RECOMMENDATIONS: 1. Perform walking oximetry in hallway and document supplemental oxygen need. 2. If the patient desaturates significantly with ambulation, recommend trial of diuretic therapy today. 3. Continue prednisone 40 mg daily x5 days. 4. Wean supplemental oxygen to maintain saturations at or above 90%. 5. Encourage incentive spirometer use and mobilize patient as tolerated. 6. At discharge, please start patient on Symbicort twice daily and continue rescue inhaler every 4 hours as needed. 7. Follow-up in the pulmonary medicine clinic within 2 weeks of discharge. Repeat pulmonary function studies need to be obtained. IMPRESSIONS: 1. Acute hypoxic respiratory failure The patient was recently evaluated in the pulmonary medicine clinic on May 07, at which time, she was identified as having a new supplemental oxygen requirement. While the patient does have known underlying moderate obstructive lung disease, prior 6-minute walk test completed in 2018 revealed no need for supplemental oxygen with exertion. Recent CTA chest showed no evidence for pulmonary embolism. The patient is currently without complaints of a productive cough. In light of her plain film chest x-ray findings noted on admission, I have a low clinical index of suspicion for underlying pulmonary infectious process. Therefore, antibiotics were discontinued. I would recommend continuing her prednisone 40 mg daily by mouth x5 days. Repeat echocardiogram was largely unrevealing. Repeat CT chest only revealed evidence of small bilateral pleural effusions. With this in mind, if the patient desaturates today with ambulation, I would recommend empiric trial of diuretic therapy. Continue to wean supplemental oxygen to maintain saturations at or above 90%. Continue to encourage incentive spirometer use and mobilize patient as tolerated. The patient undoubtedly needs to follow-up in the pulmonary medicine clinic within 2 weeks of discharge. Repeat pulmonary function studies need to be obtained. At the time of her discharge, please provide with a prescription for Symbicort 160 twice daily and continue her rescue inhaler every 4 hours as needed. 2. Normocytic anemia The patient does have a history of rectal cancer. Iron studies appear to be within normal limits. 3. Hypothyroidism The patient was last noted to have a TSH level of 18.6 in April 2019. The patient reports that her PCP is currently managing her hypothyroidism. On recheck during this hospitalization, the patient's TSH and free T4 levels were noted to be within normal limits. This note was generated with [employer] software. It may contain incorrect words, spelling, and punctuation that were not noted in checking the note before signing. Code Visit Inpatient E&M: 54533 Subs Hosp L3
[2019-05-11 07:02] LABS: Anion Gap 7 (5-15); BUN 23 mg/dL (7-18); Calcium,Total 7.8 mg/dL (8.5-10.1); Chloride 111 mmol/L (98-107); EST Glomerular Filtration Rate 58 mL/min (>60); Est Glom Filt Rate - Afr Amer 70 mL/min (>60); Estimated Creatinine Clearance 39.63 ml/min; Glucose 91 mg/dL (74-106); Potassium 3.5 mmol/L (3.5-5.1); Sodium Level 142 mmol/L (136-145)
--- NOTE | 2019-05-11 09:01 | PCM.PN.HOSP ---
Patient Problems: Active and Suspected Problems (Last Reviewed 05/09/19 @ 08:18 by Jeff Pappas MD) Acute respiratory failure with hypoxemia (Acute) Subjective: Patient seen, still requiring high flow oxygen. She also complains of right flank pain. Echo obtained the day prior demonstrated EF of 70%. RVSP was estimated to be 29 mmHg Objective: GENERAL: Ill-looking HEENT: Atraumatic; EYES; Anicteric, Normal Conjunctiva NECK; supple, normal thyroid, RESPIRATORY: Diminished to auscultation bilaterally, CARDIOVASCULAR: Regular S1 S2, GI: soft, non-tender, normoactive bowel sounds, : No Renal angle tenderness; EXTREMITIES: Trace bipedal edema MUSCULOSKELETAL: No Joint Tenderness; NEURO: Awake; no lateralizing signs. SKIN: Skin tears on right lower extremity PSYCH;tearful Vitals/I&O's: Vital Signs Temp Pulse Resp BP Pulse Ox 98.3 F 80 20 H 139/74 H 91 05/11/19 05:22 05/11/19 06:44 05/11/19 06:44 05/11/19 05:22 05/11/19 06:44 Oxygen Flow Rate (L/min) 4 Oxygen Delivery Method Nasal Cannula Weight: 53.3 kg Body Mass Index (BMI) 21.4 Finger Stick Blood Glucose 92 Intake and Output for Last 24 Hours 05/09/19 05/10/19 05/11/19 23:59 23:59 23:59 Intake Total 4664 / 4664 1295 / 1295 100 / 100 Output Total 1451 / 1451 700 / 700 Balance 3213 / 3213 595 / 595 100 / 100 Microbiology Past 72 Hours 05/10/19 10:55 Mucosa - Nose Respiratory Panel (PCR) - Final 05/08/19 23:40 Urine, Clean Catch Streptococcus pneumoniae Antigen (M - Final 05/08/19 23:40 Urine, Random Legionella Antigen - Final Laboratory Results 05/10/19 05:20: Iron 55, TIBC 315, Iron Saturation 17.5, Ferritin 172 05/10/19 05:20: B-Natriuretic Peptide 198.6 H 05/10/19 05:20: TSH 1.31, Free T4 1.12 05/11/19 06:00: WBC 12.4 H, RBC 3.27 L, Hgb 9.9 L, Hct 32.2 L, MCV 98.5, MCH 30.3, MCHC 30.7 L, RDW 14.2, RDW Differential 49.1 H, Plt Count 238, MPV 8.7, Immature Gran % (Auto) 0.500, Neut % (Auto) 81.5 H, Lymph % (Auto) 11.1 L, [place] % (Auto) 6.7, Eos % (Auto) 0.2, Baso % (Auto) 0.0, Absolute Neuts (auto) 10.1 H, Absolute Lymphs (auto) 1.38, Total Counted Not Reportable 05/11/19 06:00: Sodium 142, Potassium 3.5, Chloride 111 H, Carbon Dioxide 24.0, Anion Gap 7, BUN 23 H, Creatinine 1.00, Estim Creat Clear Calc 39.63, Est GFR (MDRD) Af Amer 70, Est GFR (MDRD) Non-Af 58 L, BUN/Creatinine Ratio 23.0 H, Glucose 91, Calcium 7.8 L Current Medications Acetaminophen (Tylenol) 650 mg PO Q6H PRN PRN PRN Reason: PAIN Last Admin: 05/11/19 00:28 Dose: 650 mg Documented by: Albuterol Sulfate (Ventolin Aerosols) 2.5 mg INHALATION Q2H PRN PRN PRN Reason: SHORTNESS OF BREATH Albuterol/Ipratropium (Duoneb) 3 ml INHALATION Q4H.RT [facility] Last Admin: 05/11/19 06:44 Dose: 3 ml Documented by: Alprazolam (Xanax) 0.25 mg PO TID PRN PRN PRN Reason: ANXIETY Last Admin: 05/10/19 19:29 Dose: 0.25 mg Documented by: Bisacodyl (Dulcolax) 10 mg PO DAILY PRN PRN PRN Reason: Constipation Bupropion HCl (Wellbutrin Xl) 150 mg PO QAM [facility] Last Admin: 05/10/19 08:31 Dose: 150 mg Documented by: Citalopram Hydrobromide (Celexa) 40 mg PO DAILY [facility] Last Admin: 05/10/19 08:31 Dose: 40 mg Documented by: Enoxaparin Sodium (Lovenox) 30 mg SC DAILY@0600 [facility] Last Admin: 05/11/19 05:27 Dose: 30 mg Documented by: Furosemide (Lasix) 20 mg IV BID@1000,1800 [facility] Guaifenesin (Mucinex) 1,200 mg PO BID [facility] Last Admin: 05/10/19 22:57 Dose: 1,200 mg Documented by: Sodium Chloride () 250 mls @ 15 mls/hr IV .[id number] PRN PRN Reason: SALINE FLUSH Levothyroxine Sodium (Synthroid) 100 mcg PO DAILY@0600 [facility] Last Admin: 05/11/19 05:27 Dose: 100 mcg Documented by: Ondansetron HCl (Zofran) 4 mg IV Q8H PRN PRN PRN Reason: Nausea Oxycodone HCl (Oxyir) 5 mg PO Q4H PRN PRN PRN Reason: PAIN Phenazopyridine HCl (Azo Standard) 190 mg PO TIDCM [facility] Last Admin: 05/10/19 17:06 Dose: 190 mg Documented by: Prednisone () 40 mg PO DAILY@0800 [facility] Sodium Chloride () 10 - 40 ml IV UD PRN PRN Reason: SALINE FLUSH Last Admin: 05/10/19 17:06 Dose: 10 ml Documented by: Medical Necessity - Tobacco Use Smoking Status: Former smoker Assessment/Plan All Active Problems (Last Reviewed 05/09/19 @ 08:18 by Jeff Pappas MD) Urinary tract infection (Acute) Acute kidney injury (Acute) Bilateral ureteral calculi (Acute) Hydronephrosis due to obstruction of ureter (Acute) Acute respiratory failure with hypoxemia (Acute) Hypoxia (Acute) Asthma-COPD overlap syndrome (Acute) History of colostomy (Resolved) History of cholecystectomy (Resolved) History of bowel resection (Resolved) History of hysterectomy (Resolved) History of delivery (Resolved) COPD exacerbation (Acute) TIA (transient ischemic attack) (Acute) 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 calculus (Acute) Filling defect on imaging study (Acute) Patient is a 73-year-old female with multiple comorbidities including COPD, history of rectal carcinoma who presented with progressive shortness of breath. Patient was found to be significant hypoxic saturating 81% on 4 L. Imaging studies obtained on admission demonstrated Increased hazy density of the right lung base which may represent atelectasis or pneumonic process admitted to monitored bed for further management 1. Acute hypoxic respiratory failure secondary to suspected community-acquired pneumonia as well as COPD exacerbation. ~ 05/10/2019 consultation was placed to patient's set up operator tool Dr. Ho Case discussed with him. Plan is for patient to undergo subsequent evaluation with CT of the chest without contrast as well as 2D echo ~05/11/2019; 2D echo obtain the day prior demonstrated ejection fraction of 70%. Patient still remains relatively hypoxic requiring 4 L of oxygen. Case was discussed with Dr. Santos with pulmonary medicine plan is for patient to be ambulated and if still remains hypoxic or oxygen requirement goes up patient will be started on Lasix 2. Pneumonia ruled out 3. Suspected CHF with preserved ejection fraction who obtained on 05/10/2019 demonstrated ejection fraction of 70%. Patient started on Lasix subsequent monitoring of I's and O's, daily weights in addition to supplemental oxygen as stated above 4. Right flank pain patient has history of recurrent kidney stones with previous stent placement patient being symptomatic she was started on OxyIR consult placed to patient's urologist Dr. Morrison 5. COPD with acute exacerbation possibly precipitated by josiah patient was managed with aerosol treatment antibiotics as well as systemic steroids in addition to supplemental oxygen. Patient is followed by Dr. Santos she requested consultation with him 6. History of rectal cancer status post surgery with colectomy and chemoradiation therapy with resultant colostomy 7. Hypothyroidism-patient is on levothyroxine home dose continued 8. Depression with anxiety 9. History of recurrent UTIs and kidney stones with presence of stents scheduled to be removed on 05/14/2019 10. Fall with left knee contusion 11. DVT prophylaxis SC Lovenox Code Visit Inpatient E&M: 05335 [facility] L3
[2019-05-11] MEDS: Phenazopyridine 95 MG Tablet 190 MG PO ×3 (09:19→17:37)
[2019-05-11] MEDS: Furosemide 20 MG/2 ML VIAL IV ×2 (09:20→17:37)
[2019-05-11] MEDS: predniSONE 20 MG Tablet 40 MG PO (09:20)
[2019-05-11] MEDS: guaiFENesin 1,200 MG Tablet 1200 MG PO ×2 (09:20→21:34)
[2019-05-11] MEDS: Citalopram 40 MG TABLET PO (09:20)
[2019-05-11] MEDS: buPROPion (XL) 150 MG TABLET.XL PO (09:20)
[2019-05-11] MEDS: oxyCODONE 5 MG Tablet PO (21:33)
--- NOTE | 2019-05-11 22:51 | NURSING ---
[id number]- spoke to charge nurse states lab called and states occult order needs changed to stool instead of gastric. called and spoke to Dr. Christianson and made him aware Dr. Santos put order in gastric occult blood and that pt has colostomy but no ngt. Dr. Christianson states ok to change to stool occult blood.
[2019-05-12] VITALS (13 sets, daily range): BP systolic 106–134; BP diastolic 56–80; PULSE 78–97; RESP 16–20; TEMP 36.7–36.8; O2SAT 90–94
[2019-05-12] MEDS: Enoxaparin 30 MG/0.3 ML Syringe SC (05:56)
[2019-05-12] MEDS: Levothyroxine 100 MCG Tablet PO (05:56)
[2019-05-12 06:00] LABS: Absolute Lymphocyte Count 2.06 X10^3/ul (0.83-4.51); Absolute Neutrophil Count 8.1 X10^3/uL (2.0-7.7); Basophil# 0.02 X10^3/uL; Basophil% 0.2 % (0-1); Eosinophil# 0.08 X10^3/uL; Eosinophils% 0.7 % (0-5); Hematocrit 36.1 % (37-47); Hemoglobin 10.8 g/dl (12.0-15.0); Lymphocyte # 2.06 X10^3/ul (4.0); Lymphocyte % 17.7 % (19-41); Mean Corp Hgb Conc 29.9 g/gl (32-36); Mean Corpuscular Hgb 29.3 pg (27.0-32.0); Mean Corpuscular Volume 97.8 fL (81-99); Mean Platelet Vol. 8.6 fl (6.2-12.0); Monocyte# 1.14 X10^3/uL; Monocyte% 9.8 % (0-10); Neutrophil # 8.13 X10^3/uL (2.7-7.7); Neutrophil % 69.7 % (47-70); Platelet Count 287 K/mm3 (150-450); RBC Distribution Width CV 14.1 % (11.6-14.6); RBC Distribution Width SD 48.5 fl (35.1-43.9); Red Blood Count 3.69 M/mm3 (4.2-5.4); White Blood Count 11.7 K/mm3 (4.4-11.0)
[2019-05-12 06:30] LABS: Anion Gap 8 (5-15); BUN 26 mg/dL (7-18); BUN/Creat Ratio 22.8 RATIO (10-20); Calcium,Total 8.1 mg/dL (8.5-10.1); Chloride 106 mmol/L (98-107); Creatinine, Serum 1.14 mg/dL (0.55-1.02); EST Glomerular Filtration Rate 50 mL/min (>60); Est Glom Filt Rate - Afr Amer 60 mL/min (>60); Estimated Creatinine Clearance 34.76 ml/min; Glucose 83 mg/dL (74-106); Potassium 3.3 mmol/L (3.5-5.1); Sodium Level 142 mmol/L (136-145)
[2019-05-12 06:32] LABS: POSITIVE COUNT NO; POSITIVE DIFFERENTIAL NO; POSITIVE MORPHOLOGY NO
[2019-05-12] MEDS: Ipratropium/Albuterol Sulfate 3 ML AMPUL.NEB INHALATION ×5 (06:46→23:32)
--- NOTE | 2019-05-12 07:26 | PN_ITS ---
Patient Problems: Active and Suspected Problems (Last Reviewed 05/12/19 @ 16:47 by Minal Morrison MD) Acute respiratory failure with hypoxemia (Acute) Subjective: The patient was seen and examined at the bedside this morning. Events from the last 24 hours have been reviewed. The patient is currently afebrile, hemodynamically stable and maintaining appropriate oxygen saturations on 2 L/min via nasal cannula. Last evening, the patient was documented to be able to ambulate in the hallway on 3 L/min. The patient did receive IV Lasix 20 mg twice yesterday. Her supplemental oxygen requirement appears to have decreased over the last 24 hours. Objective: The patient's most recent lab work, culture data and imaging studies have all been personally reviewed. CT chest without contrast dated May 10 revealed small bilateral pleural effusions. Surface echocardiogram also completed on May 10 revealed normal LV size and function with an ejection fraction of 70%. Per the report, there was no evidence of diastolic dysfunction or pulmonary hypertension. Arterial blood gas obtained on 5 L/min revealed a pH of 7.42 with a PCO2 of 31, PO2 of 88 and oxygen saturation of 97. Respiratory viral panel along with strep and urine Legionella antigens were all negative. - Physical Exam General: Alert, Cooperative, No apparent distress HEENT: Atraumatic, PERRLA, Normocephalic Oral: No Gingival or Mucosal Lesions/ Ulcerations Neck: Supple, No Nodes, Trachea Midline Lungs: No rhonchi, No wheeze, No rales, Diminished Cardiovascular: Regular rate, Regular Rhythm, Normal S1, Normal S2, No murmurs Abdomen: Bowel Sounds Present, Soft, Non Tender, - - +Ostomy Extremities: No clubbing, No cyanosis, No edema Skin: No breakdown Musculoskeletal: No Tenderness to Palpation of Joints or Extremities Lymphatic: No Cervical, Supraclavicular, or Inguinal Adenopathy Neurological: Cranial nerves II-XII grossly intact, Neuro grossly intact Psych/Mental Status: Alert and oriented to time, place, person, mood and affect Vital Signs Temp Pulse Resp BP Pulse Ox 98.3 F 79 18 134/74 H 91 05/12/19 02:08 05/12/19 02:08 05/12/19 02:08 05/11/19 20:10 05/12/19 02:08 Oxygen Flow Rate (L/min) [ 3 AMBULATION with Oxygen] Oxygen Flow Rate (L/min) 2 Oxygen Delivery Method Nasal Cannula Weight: 117 lb 8.102 oz Body Mass Index (BMI) 21.4 Finger Stick Blood Glucose 92 Intake and Output for Last 24 Hours 05/10/19 05/11/19 05/12/19 23:59 23:59 23:59 Intake Total 1295 / 1295 1360 / 1360 600 / 600 Output Total 700 / 700 Balance 595 / 595 1360 / 1360 600 / 600 Microbiology Past 72 Hours 05/11/19 14:30 Stool Occult Blood (PONCHO) - Final Stool 05/10/19 10:55 Respiratory Panel (PCR) - Final Mucosa - Nose Laboratory Tests Past 24 Hrs 05/12/19 05/12/19 05:27 05:27 WBC 11.7 H RBC 3.69 L Hgb 10.8 L Hct 36.1 L MCV 97.8 MCH 29.3 MCHC 29.9 L RDW 14.1 RDW Differential 48.5 H Plt Count 287 MPV 8.6 Immature Gran % (Auto) 1.900 H Neut % (Auto) 69.7 Lymph % (Auto) 17.7 L [place] % (Auto) 9.8 Eos % (Auto) 0.7 Baso % (Auto) 0.2 Absolute Neuts (auto) 8.1 H Absolute Lymphs (auto) 2.06 Total Counted Not Reportable Sodium 142 Potassium 3.3 L Chloride 106 Carbon Dioxide 28.0 Anion Gap 8 BUN 26 H Creatinine 1.14 H Estim Creat Clear Calc 34.76 Est GFR (MDRD) Af Amer 60 Est GFR (MDRD) Non-Af 50 L BUN/Creatinine Ratio 22.8 H Glucose 83 Calcium 8.1 L Clinical Impression(s) from Imaging Studies Chest X-Ray 05/08/19 19:23 IMPRESSION: Increased hazy density of the right lung base which may represent atelectasis or pneumonic process. This appears similar to the prior study. Calcified plaques of the aortic arch. Electronically Signed: Shawn Zuñiga MD at 19:52 EDT , Service support , Chest CT 05/10/19 06:43 IMPRESSION: Small bilateral pleural effusions with bibasilar atelectasis and/or infiltration. This has progressed as compared to prior study. The remainder of the examination is unchanged. Electronically Signed: Chriss Boateng, at 8:25 EDT , Service support , Medical Necessity - Tobacco Use Smoking Status: Former smoker Assessment/Plan All Active Problems (Last Reviewed 05/12/19 @ 16:47 by Minal Morrison MD) Urinary tract infection (Acute) Acute kidney injury (Acute) Bilateral ureteral calculi (Acute) Hydronephrosis due to obstruction of ureter (Acute) Acute respiratory failure with hypoxemia (Acute) Hypoxia (Acute) Asthma-COPD overlap syndrome (Acute) History of colostomy (Resolved) History of cholecystectomy (Resolved) History of bowel resection (Resolved) History of hysterectomy (Resolved) History of delivery (Resolved) COPD exacerbation (Acute) TIA (transient ischemic attack) (Acute) 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 calculus (Acute) Filling defect on imaging study (Acute) RECOMMENDATIONS: 1. Continue prednisone 40 mg daily x5 days. 2. Discontinue Lasix. 3. Wean supplemental oxygen to maintain saturations at or above 90%. 4. Encourage incentive spirometer use and mobilize patient as tolerated. 5. At discharge, please start patient on Symbicort twice daily and continue rescue inhaler every 4 hours as needed. 6. Perform walking oximetry prior to consideration for discharge from the hospital. 7. Follow-up in the pulmonary medicine clinic within 2 weeks of discharge. Repeat pulmonary function studies need to be obtained. IMPRESSIONS: 1. Acute hypoxic respiratory failure The patient was recently evaluated in the pulmonary medicine clinic on May 07, at which time, she was identified as having a new supplemental oxygen requirement. While the patient does have known underlying moderate obstructive lung disease, prior 6-minute walk test completed in 2018 revealed no need for supplemental oxygen with exertion. Recent CTA chest showed no evidence for pulmonary embolism. The patient is currently without complaints of a productive cough. In light of her plain film chest x-ray findings noted on admission, I have a low clinical index of suspicion for underlying pulmonary infectious process. Therefore, antibiotics were discontinued. I would recommend continuing her prednisone 40 mg daily by mouth x5 days. Repeat echocardiogram was largely unrevealing. Repeat CT chest only revealed evidence of small bilateral pleural effusions. With this in mind, the patient did receive 1 day o f IV diuretic therapy with subsequent improvement in her oxygenation status. Continue to wean supplemental oxygen to maintain saturations at or above 90%. Continue to encourage incentive spirometer use and mobilize patient as tolerated. The patient undoubtedly needs to follow-up in the pulmonary medicine clinic within 2 weeks of discharge. Repeat pulmonary function studies need to be obtained. At the time of her discharge, please provide with a prescription for Symbicort 160 twice daily and continue her rescue inhaler every 4 hours as needed. 2. Normocytic anemia The patient does have a history of rectal cancer. Iron studies appear to be within normal limits. 3. Hypothyroidism The patient was last noted to have a TSH level of 18.6 in April 2019. The patient reports that her PCP is currently managing her hypothyroidism. On recheck during this hospitalization, the patient's TSH and free T4 levels were noted to be within normal limits. This note was generated with [employer] dictation software. It may contain incorrect words, spelling, and punctuation that were not noted in checking the note before signing. Code Visit Inpatient E&M: 55204 [facility] L2
[2019-05-12] MEDS: Phenazopyridine 95 MG Tablet 190 MG PO ×3 (08:36→18:22)
[2019-05-12] MEDS: predniSONE 20 MG Tablet 40 MG PO (08:36)
[2019-05-12] MEDS: oxyCODONE 5 MG Tablet PO ×2 (08:36→18:20)
[2019-05-12] MEDS: Citalopram 40 MG TABLET PO (08:37)
[2019-05-12] MEDS: buPROPion (XL) 150 MG TABLET.XL PO (08:37)
[2019-05-12] MEDS: guaiFENesin 1,200 MG Tablet 1200 MG PO ×2 (08:37→22:06)
--- NOTE | 2019-05-12 10:49 | PN_ITS ---
Patient Problems: Active and Suspected Problems (Last Reviewed 05/09/19 @ 08:18 by Jeff Pappas MD) Acute respiratory failure with hypoxemia (Acute) Subjective: Patient seen breathing continues to improve. She appears quite and short of breath. Still complains of flank pain. Consultation was placed to urology Dr. Morrison for stent removal tentatively scheduled for 05/14/2018 Objective: GENERAL: Cooperative HEENT: Atraumatic; EYES; Anicteric, Normal Conjunctiva NECK; supple, normal thyroid, RESPIRATORY: Diminished to auscultation bilaterally, CARDIOVASCULAR: Regular S1 S2, GI: soft, non-tender, normoactive bowel sounds, : No Renal angle tenderness; EXTREMITIES: Trace bipedal edema MUSCULOSKELETAL: No Joint Tenderness; NEURO: Awake; no lateralizing signs. SKIN: Skin tears on right lower extremity PSYCH flat affect Vitals/I&O's: Vital Signs Temp Pulse Resp BP Pulse Ox 98.1 F 83 20 H 127/76 H 90 05/12/19 07:37 05/12/19 07:37 05/12/19 10:00 05/12/19 07:37 05/12/19 07:37 Oxygen Flow Rate (L/min) [ 3 AMBULATION with Oxygen] Oxygen Flow Rate (L/min) 2 Oxygen Delivery Method Nasal Cannula Weight: 53.3 kg Body Mass Index (BMI) 21.4 Finger Stick Blood Glucose 92 Intake and Output for Last 24 Hours 05/10/19 05/11/19 05/12/19 23:59 23:59 23:59 Intake Total 1295 / 1295 1360 / 1360 600 / 600 Output Total 700 / 700 Balance 595 / 595 1360 / 1360 600 / 600 Microbiology Past 72 Hours 05/11/19 14:30 Stool Stool Occult Blood (PONCHO) - Final 05/10/19 10:55 Mucosa - Nose Respiratory Panel (PCR) - Final Laboratory Results 05/12/19 05:27: WBC 11.7 H, RBC 3.69 L, Hgb 10.8 L, Hct 36.1 L, MCV 97.8, MCH 29.3, MCHC 29.9 L, RDW 14.1, RDW Differential 48.5 H, Plt Count 287, MPV 8.6, Immature Gran % (Auto) 1.900 H, Neut % (Auto) 69.7, Lymph % (Auto) 17.7 L, [place] % (Auto) 9.8, Eos % (Auto) 0.7, Baso % (Auto) 0.2, Absolute Neuts (auto) 8.1 H, Absolute Lymphs (auto) 2.06, Total Counted Not Reportable 05/12/19 05:27: Sodium 142, Potassium 3.3 L, Chloride 106, Carbon Dioxide 28.0, Anion Gap 8, BUN 26 H, Creatinine 1.14 H, Estim Creat Clear Calc 34.76, Est GFR (MDRD) Af Amer 60, Est GFR (MDRD) Non-Af 50 L, BUN/Creatinine Ratio 22.8 H, Glucose 83, Calcium 8.1 L Current Medications Acetaminophen (Tylenol) 650 mg PO Q6H PRN PRN PRN Reason: PAIN Last Admin: 05/11/19 09:19 Dose: 650 mg Documented by: Albuterol Sulfate (Ventolin Aerosols) 2.5 mg INHALATION Q2H PRN PRN PRN Reason: SHORTNESS OF BREATH Albuterol/Ipratropium (Duoneb) 3 ml INHALATION Q4H.RT [facility] Last Admin: 05/12/19 10:36 Dose: 3 ml Documented by: Alprazolam (Xanax) 0.25 mg PO TID PRN PRN PRN Reason: ANXIETY Last Admin: 05/10/19 19:29 Dose: 0.25 mg Documented by: Bisacodyl (Dulcolax) 10 mg PO DAILY PRN PRN PRN Reason: Constipation Bupropion HCl (Wellbutrin Xl) 150 mg PO QAM [facility] Last Admin: 05/12/19 08:37 Dose: 150 mg Documented by: Citalopram Hydrobromide (Celexa) 40 mg PO DAILY [facility] Last Admin: 05/12/19 08:37 Dose: 40 mg Documented by: Enoxaparin Sodium (Lovenox) 30 mg SC DAILY@0600 [facility] Last Admin: 05/12/19 05:56 Dose: 30 mg Documented by: Guaifenesin (Mucinex) 1,200 mg PO BID [facility] Last Admin: 05/12/19 08:37 Dose: 1,200 mg Documented by: Sodium Chloride () 250 mls @ 15 mls/hr IV .[id number] PRN PRN Reason: SALINE FLUSH Levothyroxine Sodium (Synthroid) 100 mcg PO DAILY@0600 [facility] Last Admin: 05/12/19 05:56 Dose: 100 mcg Documented by: Ondansetron HCl (Zofran) 4 mg IV Q8H PRN PRN PRN Reason: Nausea Oxycodone HCl (Oxyir) 5 mg PO Q4H PRN PRN PRN Reason: PAIN Last Admin: 05/12/19 08:36 Dose: 5 mg Documented by: Phenazopyridine HCl (Azo Standard) 190 mg PO TIDCM [facility] Last Admin: 05/12/19 08:36 Dose: 190 mg Documented by: Prednisone () 40 mg PO DAILY@0800 [facility] Last Admin: 05/12/19 08:36 Dose: 40 mg Documented by: Sodium Chloride () 10 - 40 ml IV UD PRN PRN Reason: SALINE FLUSH Last Admin: 05/10/19 17:06 Dose: 10 ml Documented by: Medical Necessity - Tobacco Use Smoking Status: Former smoker Assessment/Plan All Active Problems (Last Reviewed 05/09/19 @ 08:18 by Jeff Pappas MD) Urinary tract infection (Acute) Acute kidney injury (Acute) Bilateral ureteral calculi (Acute) Hydronephrosis due to obstruction of ureter (Acute) Acute respiratory failure with hypoxemia (Acute) Hypoxia (Acute) Asthma-COPD overlap syndrome (Acute) History of colostomy (Resolved) History of cholecystectomy (Resolved) History of bowel resection (Resolved) History of hysterectomy (Resolved) History of delivery (Resolved) COPD exacerbation (Acute) TIA (transient ischemic attack) (Acute) 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 calculus (Acute) Filling defect on imaging study (Acute) Patient is a 73-year-old female with multiple comorbidities including COPD, history of rectal carcinoma who presented with progressive shortness of breath. Patient was found to be significant hypoxic saturating 81% on 4 L. Imaging studies obtained on admission demonstrated Increased hazy density of the right lung base which may represent atelectasis or pneumonic process admitted to monitored bed for further management 1. Acute hypoxic respiratory failure secondary to suspected community-acquired pneumonia as well as COPD exacerbation. ~ 05/10/2019 consultation was placed to patient's parking lot attendant Dr. Ho Case discussed with him. Plan is for patient to undergo subsequent evaluation with CT of the chest without contrast as well as 2D echo ~05/11/2019; 2D echo obtain the day prior demonstrated ejection fraction of 70%. Patient still remains relatively hypoxic requiring 4 L of oxygen. Case was discussed with Dr. Santos with pulmonary medicine plan is for patient to be ambulated and if still remains hypoxic or oxygen requirement goes up patient will be started on Lasix ~05/12/2019 patient breathing status continues to improve. 2. Pneumonia ruled out 3. Suspected CHF with preserved ejection fraction who obtained on 05/10/2019 demonstrated ejection fraction of 70%. Patient started on Lasix subsequent monitoring of I's and O's, daily weights in addition to supplemental oxygen as stated above 4. Right flank pain patient has history of recurrent kidney stones with previous stent placement patient being symptomatic she was started on OxyIR consult placed to patient's urologist Dr. Morrison ~05/12/2019. Patient awaiting consultation from urology with plans for patient to undergo stent removal tentatively on 05/14/2019 5. COPD with acute exacerbation possibly precipitated by josiah patient was managed with aerosol treatment antibiotics as well as systemic steroids in addition to supplemental oxygen. Patient is followed by Dr. Santos she requested consultation with him 6. History of rectal cancer status post surgery with colectomy and chemoradiation therapy with resultant colostomy 7. Hypothyroidism-patient is on levothyroxine home dose continued 8. Depression with anxiety 9. History of recurrent UTIs and kidney stones with presence of stents scheduled to be removed on 05/14/2019 10. Fall with left knee contusion 11. DVT prophylaxis SC Lovenox Code Visit Inpatient E&M: [address] [facility] L2
--- NOTE | 2019-05-12 16:45 | PCM.CONS.GEN ---
Problem List (1) Bilateral ureteral calculi Status: Acute Reason for Consult Date of Consultation: 05/12/19 Reason for Consultation: Renal colic due to bilateral ureteral calculi History of Present Illness: The patient is a 73 year old F [who has bilateral ureteral calculi, and had bilateral ureteral stents inserted approximately 1 month ago. She is currently admitted to the hospital with an exacerbation of COPD. She is having intermittent renal colic which is controlled with narcotics. She is having no nausea, vomiting, no dysuria or signs of urinary tract infection at the present time. She is having no hematuria. Her pain sounds to be consistent with stent discomfort including pressure in her lower abdomen and occasionally in her flank. She is ready to have her stones treated, and this is scheduled for Monday.] Past Medical History Past Medical History (Chronic Problems): Chronic Problems (Last Reviewed 05/12/19 @ 16:47 by Minal Morrison MD) Hypothyroidism (Chronic) Anxiety (Chronic) Depression (Chronic) Nicotine abuse (Chronic) COPD (chronic obstructive pulmonary disease) (Chronic) Chronic bronchitis (Chronic) Hydronephrosis, right (Chronic) History of rectal cancer (Chronic) Medical History: Medical History (Last Reviewed 05/12/19 @ 16:47 by Minal Morrison MD) History of hysterectomy (Resolved) Z90.710 COPD exacerbation (Acute) J44.1 Hypothyroidism (Chronic) E03.9 Anxiety (Chronic) F41.9 Depression (Chronic) F32.9 Nicotine abuse (Chronic) Z72.0 TIA (transient ischemic attack) (Acute) G45.9 COPD (chronic obstructive pulmonary disease) (Chronic) J44.9 Chronic bronchitis (Chronic) J42 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 calculus (Acute) N20.1 Hydronephrosis, right (Chronic) N13.30 Filling defect on imaging study (Acute) R93.8 Filling defect in proximal right colon on CT abdomen History of rectal cancer (Chronic) Z85.048 Allergies ciprofloxacin [From Cipro] Allergy (Verified 05/08/19 19:10) Rash ciprofloxacin HCl [From Cipro] Allergy (Verified 05/08/19 19:10) Rash Penicillins Allergy (Verified 05/08/19 19:10) Hives codeine Adverse Reaction (Verified 05/08/19 19:10) makes her feel weird makes her feel weird NSAIDS (Non-Steroidal Anti-Inflamma Adverse Reaction (Verified 05/08/19 19:10) kidney damage r/t long-term usage advised not to use kidney damage r/t long-term usage advised not to use MAGNESIUM CITRATE Adverse Reaction (Uncoded 05/08/19 19:10) Nausea Home Medications: Ambulatory Orders Medication Instructions Recorded Albuterol IH (ProAir) [Proair Hfa] 1 puff INHALATION Q4H PRN PRN #1 01/29/18 inhaler bupropion HCl XL 150 mg 24 hr 150 mg PO QAM 11/28/18 tablet, extended release Citalopram [Celexa] 40 mg PO DAILY 04/24/19 Nitrofurantoin Macrocrystal 100 mg PO BID 05/06/19 [Nitrofurantoin] Oxycodone HCl/Acetaminophen 1 tab PO Q6H PRN PRN 05/06/19 [Oxycodone-Acetaminophen 5-325] Levothyroxine [Synthroid] 25 mcg PO DAILY 05/08/19 Levothyroxine [Synthroid] 75 mcg PO DAILY 05/08/19 Phenazopyridine HCl 200 mg PO TID 05/08/19 Surgical History: Surgical History (Last Reviewed 05/09/19 @ 08:18 by Jeff Pappas MD) History of colostomy (Resolved) Z98.890 History of cholecystectomy (Resolved) Z90.49 History of bowel resection (Resolved) Z98.890, Z90.49 History of delivery (Resolved) Z98.891 Surgical History: cholecystectomy, tonsillectomy, - - bowel resection, colostomy Psychiatric History: No pertinent psych hx [employer] 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 Lives: Alone Smoking Status: Former smoker Alcohol: None - *Family History Maternal History Items: COPD, Heart Disease Sibling History Items: Diabetes Paternal History Items: Heart Disease Review of Systems Constitutional: Denies: Anorexia, Chills, Fever, Weight Change Eyes: Denies: Vision Change HEENT: Denies: Visual Changes Cardiovascular: Denies: Chest Pain, Chest Pressure Respiratory: Reports: Shortness of Breath, Shortness of breath at rest Gastrointestinal: Denies: Abdominal Pain, Constipation, Nausea, Vomiting Genitourinary: Denies: Dysuria, Hematuria, Hesitancy Gynecological: Denies: Breast symptoms Musculoskeletal: Reports: Leg Pain - she fell Skin: Denies: Skin Changes Neurological: Denies: Balance problems Endocrine: Denies: Change in Body Habitus Patient Problems: Active and Suspected Problems (Last Reviewed 05/12/19 @ 16:47 by Minal Morrison MD) Acute respiratory failure with hypoxemia (Acute) - Physical Exam General: Alert, Oriented x3, Cooperative HEENT: Atraumatic Oral: Moist Mucosa Neck: Supple, Trachea Midline Lungs: Short of Breath Cardiovascular: Regular rate Abdomen: Soft, Non-Distended Skin: No rashes Neurological: Cranial nerves II-XII grossly intact Psych/Mental Status: Normal Affect, Appropriate Vital Signs Temp Pulse Resp BP Pulse Ox 98.1 F 78 16 134/80 H 90 05/12/19 14:00 05/12/19 14:10 05/12/19 14:10 05/12/19 14:00 05/12/19 14:00 Oxygen Flow Rate (L/min) [ 3 AMBULATION with Oxygen] Oxygen Flow Rate (L/min) 2 Oxygen Delivery Method Nasal Cannula Weight: 53.3 kg Body Mass Index (BMI) 21.4 Finger Stick Blood Glucose 92 Intake and Output for Last 24 Hours 05/10/19 05/11/19 05/12/19 23:59 23:59 23:59 Intake Total 1295 / 1295 1360 / 1360 1040 / 1040 Output Total 700 / 700 Balance 595 / 595 1360 / 1360 1040 / 1040 Microbiology Past 72 Hours 05/11/19 14:30 Stool Occult Blood (PONCHO) - Final Stool 05/10/19 10:55 Respiratory Panel (PCR) - Final Mucosa - Nose Laboratory Tests Past 24 Hrs 05/12/19 05/12/19 05:27 05:27 WBC 11.7 H RBC 3.69 L Hgb 10.8 L Hct 36.1 L MCV 97.8 MCH 29.3 MCHC 29.9 L RDW 14.1 RDW Differential 48.5 H Plt Count 287 MPV 8.6 Immature Gran % (Auto) 1.900 H Neut % (Auto) 69.7 Lymph % (Auto) 17.7 L Teller % (Auto) 9.8 Eos % (Auto) 0.7 Baso % (Auto) 0.2 Absolute Neuts (auto) 8.1 H Absolute Lymphs (auto) 2.06 Total Counted Not Reportable Sodium 142 Potassium 3.3 L Chloride 106 Carbon Dioxide 28.0 Anion Gap 8 BUN 26 H Creatinine 1.14 H Estim Creat Clear Calc 34.76 Est GFR (MDRD) Af Amer 60 Est GFR (MDRD) Non-Af 50 L BUN/Creatinine Ratio 22.8 H Glucose 83 Calcium 8.1 L Assessment/Plan All Active Problems (Last Reviewed 05/12/19 @ 16:47 by Minal Morrison MD) Urinary tract infection (Acute) Acute kidney injury (Acute) Bilateral ureteral calculi (Acute) Hydronephrosis due to obstruction of ureter (Acute) Acute respiratory failure with hypoxemia (Acute) Hypoxia (Acute) Asthma-COPD overlap syndrome (Acute) History of colostomy (Resolved) History of cholecystectomy (Resolved) History of bowel resection (Resolved) History of hysterectomy (Resolved) History of delivery (Resolved) COPD exacerbation (Acute) TIA (transient ischemic attack) (Acute) 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 calculus (Acute) Filling defect on imaging study (Acute) From my standpoint, since has pulmonary clearance, will proceed with surgical intervention on Monday as scheduled. Continue pain control. Send urine for culture, antibiotics ordered for 1hr preop. Thank you.
[2019-05-12] MEDS: ALPRAZolam 0.25 MG Tablet PO (23:33)
[2019-05-13] VITALS (14 sets, daily range): BP systolic 107–132; BP diastolic 56–75; PULSE 80–90; RESP 16–20; TEMP 36.5–37.1; O2SAT 89–94
[2019-05-13] MEDS: Enoxaparin 30 MG/0.3 ML Syringe SC (05:15)
[2019-05-13] MEDS: Levothyroxine 100 MCG Tablet PO (05:15)
[2019-05-13] MEDS: Ipratropium/Albuterol Sulfate 3 ML AMPUL.NEB INHALATION ×5 (07:12→23:57)
[2019-05-13 07:20] LABS: Anion Gap 6 (5-15); BUN 23 mg/dL (7-18); BUN/Creat Ratio 21.1 RATIO (10-20); Calcium,Total 8.8 mg/dL (8.5-10.1); Chloride 108 mmol/L (98-107); Creatinine, Serum 1.09 mg/dL (0.55-1.02); EST Glomerular Filtration Rate 52 mL/min (>60); Est Glom Filt Rate - Afr Amer 63 mL/min (>60); Estimated Creatinine Clearance 36.36 ml/min; Glucose 80 mg/dL (74-106); Potassium 4.2 mmol/L (3.5-5.1); Sodium Level 140 mmol/L (136-145)
[2019-05-13] MEDS: oxyCODONE 5 MG Tablet PO ×3 (08:27→20:46)
[2019-05-13] MEDS: guaiFENesin 1,200 MG Tablet 1200 MG PO ×2 (08:29→20:46)
[2019-05-13] MEDS: buPROPion (XL) 150 MG TABLET.XL PO (08:29)
[2019-05-13] MEDS: Citalopram 40 MG TABLET PO (08:29)
[2019-05-13] MEDS: predniSONE 20 MG Tablet 40 MG PO (08:29)
[2019-05-13] MEDS: Phenazopyridine 95 MG Tablet 190 MG PO ×3 (08:29→16:42)
--- NOTE | 2019-05-13 08:40 | CALC_PTH ---
PATIENT: JOSE DE JESUS GOLD LOC: [facility] U#:[id number] AGE/SX: 73/F ROOM: [facility] [place] RE05/08/[address]: Dr. Mando Santacruz DO : 1945 BED: 1 DIS: 05/15/2019 SPEC #: [id number] RECD: 05/14/19 14:15 STATUS: ELAYNE JOSEP #: [id number] GABRIELE: 05/13/19 08:[address]: Minal Morrison DEPT: SURGICAL PATHOLOGY RECD BY: Alexi Francis ENTERED: 05/14/19 14:15 SP TYPE: Calculi OTHR DR: DO Dr. Jeff Corona MD Dr. Mark Tereletsky, DO Dr. Victor Velasquez, MD Tissues: CALCULI Procedures: Surgery Specimen Level I HEADER OPERATION: Cysto, ureteroscopy, basket extraction PRE-OP DIAGNOSIS: Renal colic due to bilateral ureteral calculi TISSUE SUBMITTED: Calculi GROSS DIAGNOSIS Fragments of stone, clinically bilateral ureteral calculi, submitted for analysis. PHU:tabby 05/14/19 COMMENT The calculus is submitted in its entirety for chemical stone analysis. The results from this study will be reported separately. GROSS DESCRIPTION Received in fixative is one container labeled with the patient's name and designated bilateral ureteral calculi. The specimen consists of multiple fragments of brown stone that in aggregate measure 0.7 x 0.7 x 0.4 cm. The entire specimen is submitted for stone analysis. / PHU:tabby 05/14/19 CPT: 20914
--- NOTE | 2019-05-13 09:18 | NURSING ---
Hannah Hernandez LPN's assessment reviewed and this nurse agrees with assessment.
--- NOTE | 2019-05-13 11:18 | PCM.PN.PUL ---
Patient Problems: Active and Suspected Problems (Last Reviewed 05/12/19 @ 16:47 by Minal Morrison MD) Acute respiratory failure with hypoxemia (Acute) Subjective: Patient reports she is been doing well. Patient has been on supplemental oxygen since yesterday. Patient had responded to diuretics previously. Patient reports she is nervous about the possible surgery tomorrow, but otherwise feels well. - Physical Exam General: Alert, Oriented x3, Cooperative, No apparent distress, - - Appears older than stated age. No conversational dyspnea. HEENT: Atraumatic, PERRLA, EOMI, Normocephalic, - - No scleral icterus or injection noted. Nasal cannula in place. Oral: Moist Mucosa, No Gingival or Mucosal Lesions/ Ulcerations Neck: Supple, No JVD, No Nodes, Trachea Midline Lungs: No rhonchi, No wheeze, No rales, Diminished, - - Check expansion. No dullness to percussion. Cardiovascular: Regular rate, Regular Rhythm, Normal S1, Normal S2, No murmurs, No rub noted, No Gallop Abdomen: Bowel Sounds Present, Soft, Non Tender, Non-Distended, - - Ostomy clean, dry and intact Extremities: No clubbing, No cyanosis, No edema, Capillary Refill Less than 3 Seconds Skin: No rashes, No breakdown Musculoskeletal: No Tenderness to Palpation of Joints or Extremities Lymphatic: No Cervical, Supraclavicular, or Inguinal Adenopathy Neurological: Cranial nerves II-XII grossly intact, Neuro grossly intact, Motor Exam 5/5 strength throughout Psych/Mental Status: Alert and oriented to time, place, person, mood and affect Vital Signs Temp Pulse Resp BP Pulse Ox 36.7 C 81 20 H 132/70 H 93 05/13/19 08:22 05/13/19 10:59 05/13/19 10:59 05/13/19 08:22 05/13/19 09:09 Oxygen Flow Rate (L/min) [ 3 AMBULATION with Oxygen] Oxygen Flow Rate (L/min) 3 Oxygen Delivery Method Nasal Cannula Weight: 53.3 kg Body Mass Index (BMI) 21.4 Finger Stick Blood Glucose 92 Intake and Output for Last 24 Hours 05/11/19 05/12/19 05/13/19 23:59 23:59 23:59 Intake Total 1360 / 1360 1780 / 1780 480 / 480 Balance 1360 / 1360 1780 / 1780 480 / 480 Microbiology Past 72 Hours 05/12/19 20:00 Urine Culture - Preliminary Urine, Clean Catch Culture exhibits no growth. 05/11/19 14:30 Stool Occult Blood (PONCHO) - Final Stool 05/10/19 10:55 Respiratory Panel (PCR) - Final Mucosa - Nose Laboratory Tests Past 24 Hrs 05/13/19 06:30 Sodium 140 Potassium 4.2 Chloride 108 H Carbon Dioxide 26.0 Anion Gap 6 BUN 23 H Creatinine 1.09 H Estim Creat Clear Calc 36.36 Est GFR (MDRD) Af Amer 63 Est GFR (MDRD) Non-Af 52 L BUN/Creatinine Ratio 21.1 H Glucose 80 Calcium 8.8 Medical Necessity - Tobacco Use Smoking Status: Former smoker Assessment/Plan All Active Problems (Last Reviewed 05/12/19 @ 16:47 by Minal Morrison MD) Urinary tract infection (Acute) Acute kidney injury (Acute) Bilateral ureteral calculi (Acute) Hydronephrosis due to obstruction of ureter (Acute) Acute respiratory failure with hypoxemia (Acute) Hypoxia (Acute) Asthma-COPD overlap syndrome (Acute) History of colostomy (Resolved) History of cholecystectomy (Resolved) History of bowel resection (Resolved) History of hysterectomy (Resolved) History of delivery (Resolved) COPD exacerbation (Acute) TIA (transient ischemic attack) (Acute) 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 calculus (Acute) Filling defect on imaging study (Acute) RECOMMENDATIONS: 1. Continue prednisone 40 mg daily to complete 5 days 2. Monitor fluid status and discontinuation of antibiotics clinically 3. Wean supplemental oxygen to maintain saturations at or above 90%. 4. Encourage incentive spirometer use and mobilize patient as tolerated. 5. At discharge, please start patient on Symbicort twice daily and continue rescue inhaler every 4 hours as needed. 6. Perform walking oximetry prior to consideration for discharge from the hospital. 7. Follow-up in the pulmonary medicine clinic within 2 weeks of discharge. Repeat pulmonary function studies need to be obtained. IMPRESSIONS: 1. Acute hypoxic respiratory failure Patient appears to be doing well from a respiratory standpoint. Patient is still on minimal nasal cannula oxygen and may require this on discharge. Patient should have a walking oximetry prior to discharge. Patient will also benefit from initiation of Symbicort therapy at discharge. Patient will complete a 5-day burst of steroid therapy. Patient is nervous for surgical intervention, but would anticipate only transient worsening in oxygenation. Patient cleared from a pulmonary perspective. Can follow-up in the perioperative period if indicated. If tolerates the procedure well, okay to discharge from pulmonary perspective with the recommendations above. 2. Normocytic anemia The patient does have a history of rectal cancer. Iron studies appear to be within normal limits. 3. Hypothyroidism The patient was last noted to have a TSH level of 18.6 in April 2019. The patient reports that her PCP is currently managing her hypothyroidism. On recheck during this hospitalization, the patient's TSH and free T4 levels were noted to be within normal limits. Code Visit Inpatient E&M: 29750 Subs Hosp L2
[2019-05-13] MEDS: 0.9% NaCl Peripheral Flush Adult/Peds IV (15:24)
--- NOTE | 2019-05-13 17:14 | NURSING ---
Hannah Sanders LPN's assessment reviewed and this nurse is in agreement.
--- NOTE | 2019-05-13 19:11 | PCM.PROGNOTE ---
Patient Problems: Active and Suspected Problems (Last Reviewed 05/12/19 @ 16:47 by Minal Morrison MD) Acute respiratory failure with hypoxemia (Acute) Subjective: Patient was seen and examined today, she remains on supplemental oxygen at 3 L/min at this time. Patient is scheduled to undergo a urological procedure tomorrow. - Physical Exam General: Alert, Oriented x3, Cooperative, No apparent distress, Well developed HEENT: Atraumatic, PERRLA, EOMI, Normocephalic Oral: Moist Mucosa Neck: Supple, No JVD, Trachea Midline, Thyroid Normal Size and Texture Lungs: Clear to auscultation, No rhonchi, No wheeze, No rales, Diminished Cardiovascular: Regular rate, Regular Rhythm, Normal S1, Normal S2, No murmurs, No Ectopic Activity Abdomen: Bowel Sounds Present, Soft, Non Tender, Non-Distended, No hernias noted Extremities: No clubbing, No cyanosis, No edema, Capillary Refill Less than 3 Seconds Skin: No rashes, No breakdown Neurological: Cranial nerves II-XII grossly intact, Neuro grossly intact, Sensory exam intact to light touch and pain, Coordination normal Psych/Mental Status: Normal Affect, Appropriate, Alert and oriented to time, place, person, mood and affect Vital Signs Temp Pulse Resp BP Pulse Ox 98.4 F 85 16 107/75 92 05/13/19 18:22 05/13/19 18:22 05/13/19 18:22 05/13/19 18:22 05/13/19 18:22 Oxygen Flow Rate (L/min) [ 3 AMBULATION with Oxygen] Oxygen Flow Rate (L/min) 3 Oxygen Delivery Method Nasal Cannula Weight: 53.3 kg Body Mass Index (BMI) 21.4 Finger Stick Blood Glucose 92 Intake and Output for Last 24 Hours 05/11/19 05/12/19 05/13/19 23:59 23:59 23:59 Intake Total 1360 / 1360 1780 / 1780 1300 / 1300 Balance 1360 / 1360 1780 / 1780 1300 / 1300 Microbiology Past 72 Hours 05/12/19 20:00 Urine Culture - Preliminary Urine, Clean Catch Culture exhibits no growth. 05/11/19 14:30 Stool Occult Blood (PONCHO) - Final Stool Laboratory Tests Past 24 Hrs 05/13/19 06:30 Sodium 140 Potassium 4.2 Chloride 108 H Carbon Dioxide 26.0 Anion Gap 6 BUN 23 H Creatinine 1.09 H Estim Creat Clear Calc 36.36 Est GFR (MDRD) Af Amer 63 Est GFR (MDRD) Non-Af 52 L BUN/Creatinine Ratio 21.1 H Glucose 80 Calcium 8.8 Medical Necessity - Tobacco Use Smoking Status: Former smoker Assessment/Plan All Active Problems (Last Reviewed 05/12/19 @ 16:47 by Minal Morrison MD) Urinary tract infection (Acute) Acute kidney injury (Acute) Bilateral ureteral calculi (Acute) Hydronephrosis due to obstruction of ureter (Acute) Acute respiratory failure with hypoxemia (Acute) Hypoxia (Acute) Asthma-COPD overlap syndrome (Acute) History of colostomy (Resolved) History of cholecystectomy (Resolved) History of bowel resection (Resolved) History of hysterectomy (Resolved) History of delivery (Resolved) COPD exacerbation (Acute) TIA (transient ischemic attack) (Acute) 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 calculus (Acute) Filling defect on imaging study (Acute) #1 acute on chronic hypoxic respiratory failure and patient is stable currently on 3 L via nasal cannula #2 chronic obstructive pulmonary disease #3 renal colic from ureteral stones-urology is planning a procedure tomorrow regarding her ureteral stones #4 COPD exacerbation-continue present treatment #5 hypothyroidism #6 depression Code Visit Inpatient E&M: 90390 Subs Hosp L2
[2019-05-14] VITALS (15 sets, daily range): BP systolic 98–158; BP diastolic 50–96; PULSE 69–94; RESP 16–20; TEMP 36.2–37.1; O2SAT 91–96; BMI 21.5
--- NOTE | 2019-05-14 00:15 | NURSING ---
called report to RICHARD Ortiz on [facility]. patient going to room 320. okay to send to floor now.
[2019-05-14] MEDS: Cefazolin 2 GM in 0.9% Normal Saline 100 ML IV (08:06)
--- NOTE | 2019-05-14 09:54 | PCM.OPRPT ---
Problem List (1) Bilateral ureteral calculi Status: Acute Report of Operation Date of Procedure: 05/14/19 Pre-Operative Diagnosis: bilateral ureteral calculi with obstruction Post-Operative Diagnosis: same Surgery/Procedure Performed:: cystoscopy, bilateral ureteroscopy, retrograde pyelograms, left stone basket extraction, bilateral ureteral stent change Description of Surgical Findings:: 3 large stones removed from distal left ureter. bilateral ureters with kinking and narrowing consistent with previous radiation. bilateral stents clogged with calcifications with bilateral obstruction and increased hydronephrosis Type of Anesthesia:: General Special Medications: ancef Description of Procedure: The patient is a 73-year-old female who had bilateral ureteral calculi and underwent bilateral ureteral stent insertions. She now presents for definitive treatment of her ureteral calculi. In the interim, she developed a COPD exacerbation was admitted to the hospital for treatment. She is coming to the operating room from the progressive care unit. Informed consent was obtained. She was taken to the operating room and placed on the operating room table. Anesthesia monitored the head, neck, airway, IV access and vital signs throughout the case. Once anesthesia was appropriately administered she was placed into dorsal lithotomy position was prepped and draped in usual sterile fashion. A cystourethroscopy was then performed and the ureteral stents were observed. A 0.035 Glidewire was inserted alongside the left ureteral stent which was then grasped and removed. In the process of the left ureteral stent being removed the right ureteral stent was pulled intermediate into the ureter. I attempted to pass a wire through the stent from the right side which did not go. There is obvious at this point that the stent was not working. I was unable to place a wire alongside the ureter all the way up to the renal pelvis as there was obstruction at the area of the mid ureter. I pulled the stent from the right side and discarded it. Attention was then turned towards the left ureter. Ureteroscopy was performed and 3 large stones were basketed from the distal ureteral orifice. This was done without difficulty. A flexible ureteroscopy was then performed over a wire on the left side and there were no further stones identified however there was significant kinking of the ureter in the mid ureter. A retrograde pyelogram was performed through the ureteroscope and no further obstructions were seen. At this time a 6 Barbadian 20 cm double-J stent was passed over the wire without difficulty. Attention was then turned towards the patient's right ureteral orifice. A guidewire was passed as far as possible and a rigid ureteroscope was inserted alongside it. The wire was then able to be advanced into what appeared to be the renal pelvis as the ureter straightened. A retrograde pyelogram was performed through the scope confirming that the wire was in the renal pelvis which was significantly dilated compared to her last imaging. Her calyces were dilated as well. No stones were identified on ureteroscopy which was performed all the way into the dilated renal pelvis. At this time a 6 Barbadian 20 cm double-J stent was passed without difficulty. A 16 Barbadian Gallagher catheter was inserted into the bladder. I discussed with the patient's family that the stents being clogged with calcifications of the likely source of the increased hydronephrosis. The plan will be to keep the catheter in until tomorrow to maintain drainage. She will go home with her stents for approximately 2 weeks at which point we will obtain a renal ultrasound. If there is good drainage of the kidneys the stents will be removed and a another renal ultrasound will be performed approximately 4 to 6 weeks later. I informed them that the patient's ureters are kinked bilaterally and this is likely secondary to her history of radiation. This will make it difficult to pass stones in the future and it will be difficult for any further ureteroscopy as well. Her family understands and this will be discussed again with the patient after anesthesia completely wears off. Grafts/Implants Used: 6X20cm JJ stents bilaterally - Complications none - Admit VTE Documentation VTE Present on Admission: Yes VTE Mechan Device Prophylaxis: SCD's VTE Pharm Prophylaxis ordered?: Yes
[2019-05-14] MEDS: Phenazopyridine 95 MG Tablet 190 MG PO ×3 (10:40→17:09)
[2019-05-14] MEDS: Lubricating Jelly 60 GM Tube 30 GM TOPICAL (11:40)
--- NOTE | 2019-05-14 12:50 | PCM.PN.PUL ---
Patient Problems: Active and Suspected Problems (Last Updated 05/13/19 @ 19:21 by Mando Santacruz DO) Acute respiratory failure with hypoxemia (Acute) Subjective: Patient underwent urologic procedure this morning. Patient reportedly tolerated this well and was seen eating lunch. Patient denies any worsening in dyspnea. Patient did have to be increased to 4 L nasal cannula immediately postoperative, but does not report any increased cough, chest pain, nausea or vomiting. Patient did report a fullness sensation in the lower abdomen that she attributed to the Gallagher catheter. - Physical Exam General: Alert, Oriented x3, Cooperative, No apparent distress, Well developed, Well nourished, - - No conversational dyspnea. HEENT: Atraumatic, PERRLA, EOMI, Normocephalic, - - No scleral icterus or injection noted. Oral: Moist Mucosa, No Gingival or Mucosal Lesions/ Ulcerations Neck: Supple, No JVD, No Nodes, Trachea Midline Lungs: No rhonchi, No wheeze, No rales, Diminished, - - Symmetric expansion. No dullness to percussion. Cardiovascular: Regular rate, Regular Rhythm, Normal S1, Normal S2, No murmurs, No rub noted, No Gallop Abdomen: Bowel Sounds Present, Soft, Non Tender, Non-Distended Extremities: No clubbing, No cyanosis, No edema, Capillary Refill Less than 3 Seconds Skin: No rashes, No breakdown Musculoskeletal: No Tenderness to Palpation of Joints or Extremities Lymphatic: No Cervical, Supraclavicular, or Inguinal Adenopathy Neurological: Cranial nerves II-XII grossly intact, Neuro grossly intact, Motor Exam 5/5 strength throughout Psych/Mental Status: Alert and oriented to time, place, person, mood and affect Vital Signs Temp Pulse Resp BP Pulse Ox 36.7 C 83 16 123/81 H 93 05/14/19 11:18 05/14/19 11:18 05/14/19 11:18 05/14/19 11:18 05/14/19 11:18 Oxygen Flow Rate (L/min) [ 3 AMBULATION with Oxygen] Oxygen Flow Rate (L/min) 4 Oxygen Delivery Method Nasal Cannula Weight: 1.57 kg Body Mass Index (BMI) 21.4 Finger Stick Blood Glucose 92 Intake and Output for Last 24 Hours 05/12/19 05/13/19 05/14/19 23:59 23:59 23:59 Intake Total 1780 / 1780 1300 / 1300 700 / 700 Output Total 400 / 400 Balance 1780 / 1780 1300 / 1300 300 / 300 Microbiology Past 72 Hours 05/12/19 20:00 Urine Culture - Preliminary Urine, Clean Catch Culture exhibits no growth. 05/11/19 14:30 Stool Occult Blood (PONCHO) - Final Stool Operative note was personally reviewed. Medical Necessity - Tobacco Use Smoking Status: Former smoker Assessment/Plan All Active Problems (Last Updated 05/13/19 @ 19:21 by Mando Santacruz DO) Urinary tract infection (Resolved) Acute kidney injury (Resolved) Bilateral ureteral calculi (Acute) Hydronephrosis due to obstruction of ureter (Acute) Acute respiratory failure with hypoxemia (Acute) Hypoxia (Acute) History of colostomy (Resolved) History of cholecystectomy (Resolved) History of bowel resection (Resolved) History of hysterectomy (Resolved) History of delivery (Resolved) COPD exacerbation (Acute) TIA (transient ischemic attack) (Resolved) RECOMMENDATIONS: 1. Continue prednisone 40 mg daily to complete 5 days 2. Monitor fluid status and discontinuation of antibiotics clinically 3. Wean supplemental oxygen to maintain saturations at or above 90%. 4. Encourage incentive spirometer use and mobilize patient as tolerated. 5. At discharge, please start patient on Symbicort twice daily and continue rescue inhaler every 4 hours as needed. 6. Perform walking oximetry and if patient requires 5 L or less, she can be discharged from a pulmonary perspective 7. Follow-up in the pulmonary medicine clinic within 2 weeks of discharge. Repeat pulmonary function studies need to be obtained. IMPRESSIONS: 1. Acute hypoxic respiratory failure Patient appears to be doing well from a respiratory standpoint. Patient is still on minimal nasal cannula oxygen and may require this on discharge. Patient should have a walking oximetry prior to discharge. Patient will also benefit from initiation of Symbicort therapy at discharge. Patient will complete a 5-day burst of steroid therapy. Patient tolerated the procedure well. If patient is able to ambulate and maintain saturation greater than 90% on 5 L nasal cannula, patient can be discharged from the pulmonary perspective. 2. Normocytic anemia The patient does have a history of rectal cancer. Iron studies appear to be within normal limits. 3. Hypothyroidism The patient was last noted to have a TSH level of 18.6 in April 2019. The patient reports that her PCP is currently managing her hypothyroidism. On recheck during this hospitalization, the patient's TSH and free T4 levels were noted to be within normal limits. 4. Hydronephrosis status post stents POD #0 Patient being followed by urology. Gallagher in place. No signs of septic transformation at this time. Code Visit Inpatient E&M: 22863 Subs Hosp L2
[2019-05-14] MEDS: predniSONE 20 MG Tablet 40 MG PO (14:35)
[2019-05-14] MEDS: oxyCODONE 5 MG Tablet PO ×3 (14:36→23:15)
[2019-05-14] MEDS: Citalopram 40 MG TABLET PO (14:36)
[2019-05-14] MEDS: buPROPion (XL) 150 MG TABLET.XL PO (14:36)
[2019-05-14] MEDS: guaiFENesin 1,200 MG Tablet 1200 MG PO ×2 (14:36→21:02)
[2019-05-14] MEDS: Ipratropium/Albuterol Sulfate 3 ML AMPUL.NEB INHALATION ×3 (15:24→22:49)
[2019-05-14] MEDS: Acetaminophen 325 MG Tablet 650 MG PO (19:01)
--- NOTE | 2019-05-14 20:08 | PN_ITS ---
Patient Problems: Active and Suspected Problems (Last Updated 05/13/19 @ 19:21 by Mando Santacruz DO) Acute respiratory failure with hypoxemia (Acute) Subjective: Patient was seen and examined today after her urological procedure, she underwent cystoscopy and bilateral ureteroscopy with retrograde pyelograms, left stone basket extraction and bilateral ureteral stent change. According to notes, urology states that the patient is to maintain her catheter until tomorrow to maintain drainage. I went over this with the patient. Patient has no complaints of any shortness of breath or chest pain at this time. Patient does complain of bladder discomfort-she will be medicated for pain - Physical Exam General: Alert, Oriented x3, Cooperative, No apparent distress, Well developed HEENT: Atraumatic, PERRLA, EOMI, Normocephalic Oral: Moist Mucosa Neck: Supple, Trachea Midline, Thyroid Normal Size and Texture Lungs: Clear to auscultation, Normal air movement, No rhonchi, No wheeze, No r ales Cardiovascular: Regular rate, Regular Rhythm, Normal S1, Normal S2, No murmurs, No Ectopic Activity, PMI Normal, No rub noted Abdomen: Bowel Sounds Present, Soft, Non Tender, Non-Distended, - - Colostomy present Extremities: No edema, Capillary Refill Less than 3 Seconds Skin: No rashes, No breakdown Neurological: Cranial nerves II-XII grossly intact, Motor Exam 5/5 strength throughout, Sensory exam intact to light touch and pain, Coordination normal Psych/Mental Status: Normal Affect, Appropriate, Alert and oriented to time, place, person, mood and affect Vital Signs Temp Pulse Resp BP Pulse Ox 98.2 F 88 18 98/62 92 05/14/19 15:18 05/14/19 15:24 05/14/19 15:24 05/14/19 15:18 05/14/19 15:24 Oxygen Flow Rate (L/min) [ 3 AMBULATION with Oxygen] Oxygen Flow Rate (L/min) 3 Oxygen Delivery Method Nasal Cannula Weight: 59 kg Body Mass Index (BMI) 21.4 Finger Stick Blood Glucose 92 Intake and Output for Last 24 Hours 05/12/19 05/13/19 05/14/19 23:59 23:59 23:59 Intake Total 1780 / 1780 1300 / 1300 700 / 700 Output Total 1100 / 1100 Balance 1780 / 1780 1300 / 1300 -400 / -400 Microbiology Past 72 Hours 05/12/19 20:00 Urine Culture - Preliminary Urine, Clean Catch Culture exhibits no growth. 05/11/19 14:30 Stool Occult Blood (PONCHO) - Final Stool Medical Necessity - Tobacco Use Smoking Status: Former smoker Assessment/Plan All Active Problems (Last Updated 05/13/19 @ 19:21 by Mando Santacruz DO) Urinary tract infection (Resolved) Acute kidney injury (Resolved) Bilateral ureteral calculi (Acute) Hydronephrosis due to obstruction of ureter (Acute) Acute respiratory failure with hypoxemia (Acute) Hypoxia (Acute) History of colostomy (Resolved) History of cholecystectomy (Resolved) History of bowel resection (Resolved) History of hysterectomy (Resolved) History of delivery (Resolved) COPD exacerbation (Acute) TIA (transient ischemic attack) (Resolved) #1 acute on chronic hypoxic respiratory failure and patient is stable currently on 3 L via nasal cannula #2 chronic obstructive pulmonary disease #3 renal colic from ureteral stones-stones in the left ureter were removed, patient stents were replaced #4 COPD exacerbation-continue present treatment #5 hypothyroidism #6 depression Code Visit Inpatient E&M: 32051 Subs Hosp L2
[2019-05-14] MEDS: Cephalexin 500 MG Capsule PO (21:02)
[2019-05-15] VITALS (8 sets, daily range): BP systolic 106–138; BP diastolic 64–78; PULSE 54–94; RESP 18–20; TEMP 36.7–37.1; O2SAT 84–94
[2019-05-15] MEDS: Ipratropium/Albuterol Sulfate 3 ML AMPUL.NEB INHALATION ×3 (02:19→11:11)
[2019-05-15] MEDS: oxyCODONE 5 MG Tablet PO (03:12)
[2019-05-15] MEDS: Enoxaparin 30 MG/0.3 ML Syringe SC (05:58)
[2019-05-15] MEDS: Levothyroxine 100 MCG Tablet PO (05:58)
[2019-05-15] MEDS: Phenazopyridine 95 MG Tablet 190 MG PO ×2 (08:42→11:55)
[2019-05-15] MEDS: predniSONE 20 MG Tablet 40 MG PO (08:43)
[2019-05-15] MEDS: Citalopram 40 MG TABLET PO (09:26)
[2019-05-15] MEDS: buPROPion (XL) 150 MG TABLET.XL PO (09:27)
[2019-05-15] MEDS: guaiFENesin 1,200 MG Tablet 1200 MG PO (09:27)
[2019-05-15] MEDS: Cephalexin 500 MG Capsule PO (09:27)
--- NOTE | 2019-05-15 09:32 | PCM.PN.PUL ---
Patient Problems: Active and Suspected Problems (Last Updated 05/13/19 @ 19:21 by Mando Santacruz DO) Acute respiratory failure with hypoxemia (Acute) Subjective: Patient reports she did not have a walking oximetry yesterday. Patient feels stable from a respiratory standpoint. Patient did have her Gallagher catheter removed this morning and has had one voluntary void without significant complications reported. Patient states her cough is at her baseline. - Physical Exam General: Alert, Oriented x3, Cooperative, No apparent distress, Well developed, Well nourished, - - No conversational dyspnea noted. HEENT: Atraumatic, PERRLA, EOMI, Normocephalic, - - No scleral icterus or injection noted. Oral: Moist Mucosa, No Gingival or Mucosal Lesions/ Ulcerations Neck: Supple, No JVD, No Nodes, Trachea Midline Lungs: No rhonchi, No wheeze, No rales, Diminished, - - Symmetric expansion. No dullness to percussion. Cardiovascular: Regular rate, Regular Rhythm, Normal S1, Normal S2, No murmurs, No rub noted, No Gallop Abdomen: Bowel Sounds Present, Soft, Non Tender, Non-Distended Extremities: No cyanosis, No edema, Capillary Refill Less than 3 Seconds, Clubbing Skin: - - No significant change compared to yesterday Musculoskeletal: No Tenderness to Palpation of Joints or Extremities Lymphatic: No Cervical, Supraclavicular, or Inguinal Adenopathy Neurological: Cranial nerves II-XII grossly intact, Neuro grossly intact, Motor Exam 5/5 strength throughout Psych/Mental Status: Alert and oriented to time, place, person, mood and affect Vital Signs Temp Pulse Resp BP Pulse Ox 37.1 C 87 18 138/78 H 92 05/15/19 08:23 05/15/19 08:23 05/15/19 08:23 05/15/19 08:23 05/15/19 08:24 Oxygen Flow Rate (L/min) [ 3 AMBULATION with Oxygen] Oxygen Flow Rate (L/min) 3 Oxygen Delivery Method Nasal Cannula Weight: 59 kg Body Mass Index (BMI) 21.4 Finger Stick Blood Glucose 92 Intake and Output for Last 24 Hours 05/13/19 05/14/19 05/15/19 23:59 23:59 23:59 Intake Total 1300 / 1300 700 / 700 Output Total 1100 / 1100 850 / 850 Balance 1300 / 1300 -400 / -400 -850 / -850 Microbiology Past 72 Hours 05/12/19 20:00 Urine Culture - Final Urine, Clean Catch Culture exhibits no growth. Medical Necessity - Tobacco Use Smoking Status: Former smoker Assessment/Plan All Active Problems (Last Updated 05/13/19 @ 19:21 by Mando Santacruz DO) Urinary tract infection (Resolved) Acute kidney injury (Resolved) Bilateral ureteral calculi (Acute) Hydronephrosis due to obstruction of ureter (Acute) Acute respiratory failure with hypoxemia (Acute) Hypoxia (Acute) History of colostomy (Resolved) History of cholecystectomy (Resolved) History of bowel resection (Resolved) History of hysterectomy (Resolved) History of delivery (Resolved) COPD exacerbation (Acute) TIA (transient ischemic attack) (Resolved) RECOMMENDATIONS: 1. Continue prednisone 40 mg daily to complete 5 days. Likely not necessary at discharge 2. Monitor fluid status and discontinuation of antibiotics clinically 3. Wean supplemental oxygen to maintain saturations at or above 90%. 4. Encourage incentive spirometer use and mobilize patient as tolerated. 5. At discharge, please start patient on Symbicort twice daily and continue rescue inhaler every 4 hours as needed. 6. Perform walking oximetry and if patient requires 5 L or less, she can be discharged from a pulmonary perspective 7. Follow-up in the pulmonary medicine clinic within 2 weeks of discharge. Repeat pulmonary function studies need to be obtained. IMPRESSIONS: 1. Acute hypoxic respiratory failure Patient appears to be doing well from a respiratory standpoint. Patient is still on minimal nasal cannula oxygen and may require this on discharge. Patient should have a walking oximetry prior to discharge. Patient will also benefit from initiation of Symbicort therapy at discharge. Patient has completed a 5-day burst of steroid therapy. If patient is able to ambulate and maintain saturation greater than 90% on 5 L nasal cannula, patient can be discharged from the pulmonary perspective. Patient likely does not require prednisone therapy on discharge, but should be initiated on Symbicort. Patient can follow-up in our office in 2 weeks with nurse practitioner. 2. Normocytic anemia The patient does have a history of rectal cancer. Iron studies appear to be within normal limits. 3. Hypothyroidism The patient was last noted to have a TSH level of 18.6 in April 2019. The patient reports that her PCP is currently managing her hypothyroidism. On recheck during this hospitalization, the patient's TSH and free T4 levels were noted to be within normal limits. 4. Hydronephrosis status post stents POD #1 Patient being followed by urology. Gallagher has been removed. No signs of septic transformation at this time. Code Visit Inpatient E&M: 60314 Subs Hosp L2
--- NOTE | 2019-05-15 11:45 | DCINST_ITS ---
- Discharge Diagnoses Current Active Problems: Current Active and Chronic Problems (Last Updated 05/13/19 @ 19:21 by Mando Santacruz DO) Acute respiratory failure with hypoxemia (Acute) You will use the following diet at home:: No restrictions Your food should be the consistency of: Regular Your liquids should be the consistency of: Regular/Thin Discharge Activity: Return to Normal Activity Weight Bearing Status: Full weight bearing Allergies/Adverse Reactions: Allergies ciprofloxacin [From Cipro] Allergy (Verified 05/08/19 19:10) Rash ciprofloxacin HCl [From Cipro] Allergy (Verified 05/08/19 19:10) Rash Penicillins Allergy (Verified 05/08/19 19:10) Hives codeine Adverse Reaction (Verified 05/08/19 19:10) makes her feel weird makes her feel weird NSAIDS (Non-Steroidal Anti-Inflamma Adverse Reaction (Verified 05/08/19 19:10) kidney damage r/t long-term usage advised not to use kidney damage r/t long-term usage advised not to use MAGNESIUM CITRATE Adverse Reaction (Uncoded 05/08/19 19:10) Nausea Medications to take at Discharge Albuterol IH (ProAir) [Proair Hfa] 1 puff INHALATION Q4H PRN PRN #1 inhaler 01/29/18 bupropion HCl XL 150 mg 24 hr tablet, extended release 150 mg PO QAM 11/28/18 Citalopram [Celexa] 40 mg PO DAILY 04/24/19 Oxycodone HCl/Acetaminophen [Oxycodone-Acetaminophen 5-325] 1 tab PO Q6H PRN PRN 05/06/19 Phenazopyridine HCl 200 mg PO TID 05/08/19 Budesonide/Formoterol 160/4.5 [Symbicort 160/4.5 Mcg Inhaler (SP)] 2 puff INHALATION BID #1 inhaler 05/15/19 Cephalexin [Keflex] 500 mg PO Q12 #10 cap 05/15/19 Levothyroxine [Synthroid] 100 mcg PO DAILY@0600 tablet 05/15/19 The following prescriptions were given: Cephalexin [Keflex] 500 mg PO Q12 #10 cap Transmission Status: Pending to [facility] Budesonide/Formoterol 160/4.5 [Symbicort 160/4.5 Mcg Inhaler (SP)] 2 puff INHALATION BID #1 inhaler Transmission Status: Pending to [facility] Primary Care Physician: Adis Mireles MD [Primary Care Provider] - Please follow up with your Primary Care Physician in: in 2-3 weeks Test Results: Test results from this visit will be discussed in further detail at your follow- up appointment, if applicable. Please Follow Up With: Mayco Santos DO When: in 2 weeks-call for appointment Please Follow Up With: Minal Morrison MD When: call office for a followup appointment
--- NOTE | 2019-05-15 12:25 | PCM.PN.GU ---
Physical Exam Subjective: The patient is sitting up in bed, comfortable. Family is at bedside. The catheter has been removed and she is voiding without complaints today. She is ready to go home. - Physical Exam Vital Signs Temp 98.7 F 05/15/19 08:23 Pulse 84 05/15/19 11:10 Resp 19 H 05/15/19 11:10 BP 138/78 H 05/15/19 08:23 Pulse Ox 86 05/15/19 11:45 Intake & Output 05/13/19 05/14/19 05/15/19 23:59 23:59 23:59 Intake Total 1300 / 1300 700 / 700 Output Total 1100 / 1100 850 / 850 Balance 1300 / 1300 -400 / -400 -850 / -850 Weight: 59 kg 59 kg Intake: Oral 1300 / 1300 IV fluid/meds 700 / 700 IV #1 700 / 700 Output: Urine 1100 / 1100 700 / 700 Stool Amount 150 / 150 Other: Number of Voids 5 Incontinent Amount Moderate Number of Bowel Movements 5 General: Alert, Oriented x3, Cooperative, No apparent distress HEENT: Atraumatic Oral: Moist Mucosa Neck: Supple, Trachea Midline Abdomen: Soft Rectal: Exam deferred Neurological: Cranial nerves II-XII grossly intact Psych/Mental Status: Normal Affect Microbiology Past 72 Hours 05/12/19 20:00 Urine Culture - Final Urine, Clean Catch Culture exhibits no growth. Medical Necessity - Tobacco Use Smoking Status: Former smoker Assessment/Plan All Active Problems (Last Updated 05/13/19 @ 19:21 by Mando Santacruz DO) Urinary tract infection (Resolved) Acute kidney injury (Resolved) Bilateral ureteral calculi (Acute) Hydronephrosis due to obstruction of ureter (Acute) Acute respiratory failure with hypoxemia (Acute) Hypoxia (Acute) History of colostomy (Resolved) History of cholecystectomy (Resolved) History of bowel resection (Resolved) History of hysterectomy (Resolved) History of delivery (Resolved) COPD exacerbation (Acute) TIA (transient ischemic attack) (Resolved) Home today. Renal U/S in 2 weeks, to be scheduled prior to discharge. I will see her in the office for stent removal following that ultrasound. Then plan to repeat another ultrasound in 4 to 6 weeks to ensure that her kidneys are draining despite the radiation changes to her ureters. I will obtain the 24-hour urine study performed by her previous urologist and we will discuss further stone prevention as an outpatient.
--- NOTE | 2019-05-15 14:00 | CASEMGMT ---
RICHARD ALBRIGHT NOTE: Reviewed PT/OT notes. Further therapy recommended. To room to talk with pt. Pt states she has been going to [facility] for therapy and that she wishes to continue to go there. Instructed pt to call them to schedule further appts and if they need another script to continue therapy, that they can contact [facility], for further orders. Pt and daughter voice understanding. Yissel ACE RN CM
--- NOTE | 2019-05-16 10:01 | PCM.DC.SUM ---
Discharge Date and Diagnosis Date of Admission: 05/08/19 Date of Discharge: 05/15/19 - Primary Discharge Diagnosis 1 acute on chronic hypoxic respiratory failure #2 chronic obstructive pulmonary disease #3 renal colic from ureteral stones-stones in the left ureter were removed #4 COPD exacerbation #5 hypothyroidism #6 depression - Secondary Discharge Diagnosis Chronic Problems (Last Updated 05/13/19 @ 19:21 by Mando Santacruz DO) Asthma-COPD overlap syndrome (Chronic) Hypothyroidism (Chronic) Anxiety (Chronic) Depression (Chronic) Nicotine abuse (Chronic) COPD (chronic obstructive pulmonary disease) (Chronic) Chronic bronchitis (Chronic) 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 calculus (Chronic) Hydronephrosis, right (Chronic) Filling defect on imaging study (Chronic) Filling defect in proximal right colon on CT abdomen History of rectal cancer (Chronic) Hospital Course and Treatment Consultations 05/09/19 03:57 Consult: Onc/Wound/knot bumper Routine Comment: Reason for Consult:: Colostomy Operations: - - Cystoscopy, basket extraction of ureteral stones, ureteral stent placement Summary of Care Provided: The patient is a 73 year old F seen in the emergency room at [facility] chief complaint shortness of breath, she is using oxygen at home at 3 L for COPD and chronic hypoxic respiratory failure. Evaluation in the emergency room showed a white blood cell count of 14,000, chemistries were unremarkable, chest x-ray obtained showed a right lung base density questioning either early pneumonia or atelectasis. Patient was given DuoNeb aerosol treatments in the emergency room, she was given IV Solu-Medrol, started on Rocephin and IV Zithromax, she required oxygen flow rates at 6 L to maintain her oxygen sat. Patient was admitted to [place] [address], seen in consultation by pulmonary medicine, aerosol treatments were continued. Patient was not felt to have pneumonia per pulmonary medicine, her antibiotics were stopped, patient did have an episode of renal colic and was given IV narcotics, she was seen in consultation by urology who performed a cystoscopy with retrograde pyelograms, basket extraction of stones from the left ureter was carried out and her stents were replaced. Patient tolerated the procedure well. On 05/15/2019, patient was seen and examined: On examination she appeared in good health and spirits. Vital signs as documented. Skin warm and dry and without overt rashes. Neck without JVD. Lungs clear. Heart exam notable for regular rhythm, normal sounds and absence of murmurs, rubs or gallops. Abdomen-colostomy present, no evidence of organomegaly, masses, or abdominal aortic enlargement was noted. Extremities nonedematous. Neuro: Cranial nerves II through XII are grossly intact, no focal motor deficits were noted, sensation to light touch and pinprick is intact. Psych: Patient is alert and oriented x3, she does not appear anxious or depressed On 05/15/2019, patient was seen and examined and felt to be in stable condition for discharge home - Physical Exam Vital Signs Temp Pulse Resp BP Pulse Ox 98.2 F 94 18 118/69 92 05/15/19 13:55 05/15/19 13:55 05/15/19 13:55 05/15/19 13:55 05/15/19 13:55 Oxygen Flow Rate (L/min) [ 4 AMBULATION with Oxygen] Oxygen Flow Rate (L/min) 4 Oxygen Delivery Method Nasal Cannula Weight: 59 kg Body Mass Index (BMI) 21.4 Finger Stick Blood Glucose 92 Intake and Output for Last 24 Hours 05/14/19 05/15/19 05/16/19 23:59 23:59 23:59 Intake Total 700 / 700 Output Total 1100 / 1100 850 / 850 Balance -400 / -400 -850 / -850 Microbiology Past 72 Hours 05/12/19 20:00 Urine Culture - Final Urine, Clean Catch Culture exhibits no growth. Discharge Activity: Return to Normal Activity Weight Bearing Status: Full weight bearing Home Medications: Medications to take at Discharge Albuterol IH (ProAir) [Proair Hfa] 1 puff INHALATION Q4H PRN PRN #1 inhaler 01/29/18 bupropion HCl XL 150 mg 24 hr tablet, extended release 150 mg PO QAM 11/28/18 Citalopram [Celexa] 40 mg PO DAILY 04/24/19 Oxycodone HCl/Acetaminophen [Oxycodone-Acetaminophen 5-325] 1 tab PO Q6H PRN PRN 05/06/19 Phenazopyridine HCl 200 mg PO TID 05/08/19 Budesonide/Formoterol 160/4.5 [Symbicort 160/4.5 Mcg Inhaler (SP)] 2 puff INHALATION BID #1 inhaler 05/15/19 Cephalexin [Keflex] 500 mg PO Q12 #10 cap 05/15/19 Levothyroxine [Synthroid] 100 mcg PO DAILY@0600 tab 05/15/19 Following Prescrptions Were Given to Patient: Cephalexin [Keflex] 500 mg PO Q12 #10 cap Transmission Status: Received by [facility] Budesonide/Formoterol 160/4.5 [Symbicort 160/4.5 Mcg Inhaler (SP)] 2 puff INHALATION BID #1 inhaler Transmission Status: Received by [facility] Primary Care Physician: Adis Mireles MD [Primary Care Provider] - Please follow up with your Primary Care Physician in: in 2-3 weeks Please Follow Up With: Mayco Santos DO When: in 2 weeks-call for appointment Please Follow Up With: Minal Morrison MD When: call office for a followup appointment Disposition: Home Minutes spent on discharge:: 32 Patient Condition:: Stable Medical Necessity - Tobacco Use Smoking Status: Former smoker Meaningful Use Info Meaningful Use Diagnoses (Choose all that apply): None applicable Code Visit Inpatient E&M: 37298 Disch Hosp
--- NOTE | 2019-05-16 16:18 | CASEMGMT ---
RN NATALEE DC PHONE CALL DC DATE: 05/15/19 DC Disposition: Home with Outpt therapy. Diagnosis on Discharge: Resp Failure LACE/STRATA: 15/4 Intro role of CM to patient via phone. Pt states she is feeling better, and does not have questions re: prescriptions or instructions. Pt did pickle sorter prescriptions. Able to make own f/u calls. States care in the hospital was good and everyone was really nice to me.
== END 2019-05-15 14:20 | disposition home or self-care (01) | DRG 987 ==
LOC: ED 20:47 → PCU 22:32 → MS3 05-14 00:35
PROVIDERS: Internal Medicine; Internal Medicine Critical Care Medicine; Admitting Provider Hospitalist; Emergency Provider Emergency Medicine; Family Provider Internal Medicine; PCP Internal Medicine; Referring Provider Hospitalist; Visit Provider Internal Medicine
DX: J44.1 Chronic obstructive pulmonary disease with (acute) exacerbation (principal); J96.21 Acute and chronic respiratory failure with hypoxia; I26.99 Other pulmonary embolism without acute cor pulmonale; N13.2 Hydronephrosis with renal and ureteral calculous obstruction; E03.9 Hypothyroidism, unspecified; Z92.21 Personal history of antineoplastic chemotherapy; Z87.891 Personal history of nicotine dependence; Z90.49 Acquired absence of other specified parts of digestive tract; Z92.3 Personal history of irradiation; Z85.048 Personal history of other malignant neoplasm of rectum, rectosigmoid junction, and anus; Z93.3 Colostomy status; Z99.81 Dependence on supplemental oxygen; F41.8 Other specified anxiety disorders; D64.9 Anemia, unspecified; S83.92XA Sprain of unspecified site of left knee, initial encounter; S80.812A Abrasion, left lower leg, initial encounter; S80.811A Abrasion, right lower leg, initial encounter; W10.9XXA Fall (on) (from) unspecified stairs and steps, initial encounter; Y93.9 Activity, unspecified; Y92.9 Unspecified place or not applicable; F41.9 Anxiety disorder, unspecified; Z86.73 Personal history of transient ischemic attack (TIA), and cerebral infarction without residual deficits; Z87.442 Personal history of urinary calculi; Z79.899 Other long term (current) drug therapy
CPT/HCPCS: 36415; 36600; 71045; 71046; 71250; 71275; 73564; 73590; 73700; 76000; 80048; 82274; 82728; 82803; 83540; 83550; 83735; 83880; 84439; 84443; 84484; 85025; 87086; 87449; 87633; 88300; 93005; 93306; 94640; 94667; 94668; 97110; 97116; 97162; 97166; 97530; 97535; 99283; 99285; J7030; Q9967; A4216; C1769; C2625; J1940

== ENCOUNTER 2019-05-20 18:28 | Emergency (ER) | payer MEDICARE, OTHER, SELFPAY ==
[2019-05-15 13:36] VITALS: BMI 21.4
[2019-05-20 18:29] VITALS: BP 136/78; PULSE 89; RESP 18; TEMP 36.6; O2SAT 98; BMI 21.2
--- NOTE | 2019-05-20 19:03 | RAD_ITS ---
STUDY: X-RAY - ABDOMEN/PELVIS REASON FOR EXAM: Female, 73 years old. Unable to the bladder TECHNIQUE: Frontal view of the abdomen obtained COMPARISON: None. FINDINGS: Bilateral ureteral stents have been placed. There is no bowel obstruction. There is air and stool to the level of the rectum. The visualized osseous structures are within normal limits. RAD/Abdomen Single View IMPRESSION: No bowel obstruction. Interval placement of bilateral ureteral stents. Electronically Signed: Antonio Barnhart, at 20:43 EDT Tel , Service support ,
--- NOTE | 2019-05-20 19:05 | ED.VIS.GEN ---
History of Present Illness Chief Complaint: Complaint Detail of Chief Complaint: Abdominal pain, urinary frequency Informant: Patient, Family Onset: Yesterday Timing: Waxes and wanes Quality: Aching Location: Diffusely throughout abdomen Current Severity: Mild Maximum Severity: Moderate Narrative: Patient had bilateral renal stents placed last week for kidney stones. She is currently on Keflex. Patient reports increased pain over the past 2 days. She has been urinating rather frequently but does not have actual dysuria. - Past Medical History (1) Bilateral ureteral calculi Status: Acute (2) Asthma-COPD overlap syndrome Status: Chronic (3) History of colostomy Status: Resolved (4) History of cholecystectomy Status: Resolved (5) History of bowel resection Status: Resolved (6) History of hysterectomy Status: Resolved (7) History of delivery Status: Resolved (8) COPD exacerbation Status: Acute (9) Hypothyroidism Status: Chronic (10) TIA (transient ischemic attack) Status: Resolved (11) History of rectal cancer Status: Chronic Past Medical History - Allergies and Home Meds Allergies/Adverse Reactions: Allergies ciprofloxacin [From Cipro] Allergy (Verified 05/20/19 18:29) Rash ciprofloxacin HCl [From Cipro] Allergy (Verified 05/20/19 18:29) Rash Penicillins Allergy (Verified 05/20/19 18:29) Hives codeine Adverse Reaction (Verified 05/20/19 18:29) makes her feel weird makes her feel weird NSAIDS (Non-Steroidal Anti-Inflamma Adverse Reaction (Verified 05/20/19 18:29) kidney damage r/t long-term usage advised not to use kidney damage r/t long-term usage advised not to use MAGNESIUM CITRATE Adverse Reaction (Uncoded 05/20/19 18:29) Nausea Primary Care Physician: Adis Mireles MD [Primary Care Provider] - Doctors: Dr. Morrison Prior records reviewed: Yes Past Medical History: - - Reviewed Surgical History: cholecystectomy, tonsillectomy, - - bowel resection, colostomy Smoking Status: Former smoker - Family History Maternal Family History: Reports: COPD, Heart Disease Sibling Family History: Reports: Diabetes Paternal Family History: Reports: Heart Disease Review of Systems General: Denies: Chills, Fever Cardiovascular: Denies: Chest pain Respiratory: Denies: Dyspnea, Cough Gastrointestinal: Reports: Abdominal pain. Denies: Vomiting Genitourinary: Reports: Frequency. Denies: Dysuria Physical Exam Vital Signs/Narrative: Vital Signs Temp Pulse Resp BP Pulse Ox 05/20/19 18:29 98 F 89 18 136/78 H 98 General: Well nourished Head: Normocephalic ENT: Moist mucous membranes Cardiovascular: Regular rate, Regular rhythm Respiratory: No distress, CTA bilaterally Abdomen: Soft, - - Mild lower abdominal tenderness. No guarding or rebound. Back: Negative for: CVA tenderness Skin: Normal color Neurological: Alert, Oriented x3 Psychological: Normal affect Diagnostic/Tx/Re-eval Impressions KUB X-Ray 05/20/19 19:03 IMPRESSION: No bowel obstruction. Interval placement of bilateral ureteral stents. Electronically Signed: Antonio Barnhart, at 20:43 EDT Tel , Service support , 05/20/19 19:03 KUB [Abdomen Single View] [RAD] Stat Laboratory Results 05/20/19 05/20/19 19:35 19:47 Sodium 136 Potassium 5.4 H Chloride 105 Carbon Dioxide 26.0 Anion Gap 5 BUN 15 Creatinine 1.13 H Estim Creat Clear Calc 35.07 Est GFR (MDRD) Af Amer 61 Est GFR (MDRD) Non-Af 50 L BUN/Creatinine Ratio 13.3 Glucose 86 Calcium 8.5 Urine Color Yellow Urine Clarity Sl. Cloudy Urine pH 6.5 Ur Specific [place] 1.010 Urine Protein 100 H Urine Glucose (UA) Normal Urine Ketones Negative Urine Occult Blood 250 H Urine Nitrite Negative Urine Bilirubin Negative Urine Urobilinogen Normal Ur Leukocyte Esterase 500 H Urine RBC 5-10 SEEN Urine WBC 10-25 SEEN Ur Squamous Epith Cells 0-5 SEEN Urine Bacteria 2+ Urine Mucus 0 SEEN Urine Yeast 1+ - Medical Decision Making Patient had postvoid residual bladder scan performed that showed 0 cc. Patient continues to have evidence of UTI in spite of currently on Keflex. Urine culture is sent and she will be switched to 3 days of Bactrim. Patient's urologist was updated. ED Disposition - Plan for ED Patient: Disposition: Home or Assisted Living Instructions: Urinary Tract Infections in Women Prescriptions: Smz/Tmp Ds [Bactrim Ds] 1 tablet PO BID #6 tablet Referrals: Minal Morrison MD [STAFF PHYSICIAN] - 3-5 Days
[2019-05-20] MEDS: HYDROcodone Bitartrate/Apap 5/325 Tablet PO (19:27)
[2019-05-20 20:01] LABS: Mucous, Urine 0 SEEN /hpf (<or=2+)
[2019-05-20 20:36] LABS: Color, Urine Yellow (Yellow); Glucose, Dipstick Normal (Normal); Ketone-Dipstick Negative (Negative); Leukocyte Esterase-Dipstick 500 /ul (Negative); Nitrite-Dipstick Negative (Negative); Occult Blood-Urine 250 /ul (Negative); Protein-Dipstick 100 mg/dl (Negative); Urine Bilirubin Dipstick Negative (Negative); Urine Clarity Sl. Cloudy (Clear); Urine Urobilinogen Normal (Normal); Urine pH 6.5 (5.0 - 8.0)
[2019-05-20 20:41] LABS: Red Blood Cells-Urine 5-10 SEEN /hpf (0-5); Squamous Epithelial Cells - UA 0-5 SEEN /hpf (5-10); White Blood Cells 10-25 SEEN /hpf (0-5)
[2019-05-20 20:42] LABS: Bacteria 2+ /hpf (None Seen); Yeast-Urine 1+ /hpf (None Seen)
[2019-05-20 20:56] VITALS: BP 118/68; PULSE 78; RESP 16; O2SAT 96
[2019-05-20 21:21] LABS: Anion Gap 5 (5-15); BUN 15 mg/dL (7-18); BUN/Creat Ratio 13.3 RATIO (10-20); Calcium,Total 8.5 mg/dL (8.5-10.1); Chloride 105 mmol/L (98-107); Creatinine, Serum 1.13 mg/dL (0.55-1.02); EST Glomerular Filtration Rate 50 mL/min (>60); Est Glom Filt Rate - Afr Amer 61 mL/min (>60); Estimated Creatinine Clearance 35.07 ml/min; Glucose 86 mg/dL (74-106); Potassium 5.4 mmol/L (3.5-5.1); Sodium Level 136 mmol/L (136-145)
== END 2019-05-20 22:07 | disposition home or self-care (01) ==
PROVIDERS: Emergency Provider Emergency Medicine; Family Provider Internal Medicine; PCP Internal Medicine
DX: R35.0 Frequency of micturition (principal); R10.9 Unspecified abdominal pain; J44.9 Chronic obstructive pulmonary disease, unspecified; E03.9 Hypothyroidism, unspecified; Z79.899 Other long term (current) drug therapy; Z88.6 Allergy status to analgesic agent; Z88.0 Allergy status to penicillin; Z87.442 Personal history of urinary calculi; Z86.73 Personal history of transient ischemic attack (TIA), and cerebral infarction without residual deficits; Z85.048 Personal history of other malignant neoplasm of rectum, rectosigmoid junction, and anus; Z87.891 Personal history of nicotine dependence; Z90.49 Acquired absence of other specified parts of digestive tract; Z90.710 Acquired absence of both cervix and uterus
CPT/HCPCS: 74018; 80048; 81001; 87086; 99285; A4216

== ENCOUNTER → 2019-05-29 12:11 | Outpatient (CLI) | payer MEDICARE, OTHER, SELFPAY ==
[2019-05-15 13:36] VITALS: BMI 21.4
[2019-05-28 11:10] VITALS: BMI 21.5
--- NOTE | 2019-05-29 12:13 | US_ITS ---
STUDY: RENAL ULTRASOUND - COMPLETE REASON FOR EXAM: Female, 73 years old. Flank pain TECHNIQUE: Ultrasound evaluation of the kidneys was performed with real-time and static munoz-scale imaging. COMPARISON: None. FINDINGS: RIGHT KIDNEY: Normal location of the right kidney, which is normal in size. The right kidney measures 8.3 x 4.6 x 3.8 cm. There is a normal cortex of the right kidney. The renal cortex measures 0.9 cm. There is no right renal mass or cyst. There are no right renal calculi. There is no right hydronephrosis. DISTAL RIGHT URETER: There is non-visualization of the distal right ureter. There is no demonstrated right ureterovesical junction calculus. There is a visualized right ureteral jet. LEFT KIDNEY: Normal location of the left kidney, which is normal in size. The left kidney measures 10.2 x 4.1 x 4.4 cm. There is a normal cortex of the left kidney. The renal cortex measures 0.9 cm. 2 simple cysts, larger measures 1.5 x 1.5 x 1.47 m, smaller 0.9 x 1.1 x 0.6 cm. There are no left renal calculi. There is mild hydronephrosis of the left kidney. DISTAL LEFT URETER: There is non-visualization of the distal left ureter. There is no demonstrated left ureterovesical junction calculus. There is a visualized left ureteral jet. AORTA: There is no elongation or tortuosity of the abdominal aorta. I.V.C.: The IVC is patent. BLADDER: The bladder is sonographically normal US/Kidney and Bladder IMPRESSION: Mild left hydronephrosis of uncertain etiology Simple left renal cysts Electronically Signed: Yasmany Huff MD at 13:21 EDT , Service support ,
== END ==
PROVIDERS: Family Provider Internal Medicine; PCP Internal Medicine; Referring Provider Urology; Visit Provider Urology
DX: N20.1 Calculus of ureter (principal)
CPT/HCPCS: 76770

== ENCOUNTER 2019-08-02 11:59 | Inpatient (IN) | payer MEDICARE, OTHER, SELFPAY ==
[2019-05-28 11:10] VITALS: BMI 21.5
[2019-08-02 12:02] VITALS: BP 137/74; PULSE 72; RESP 16; TEMP 36.7; O2SAT 97; BMI 21.9
--- NOTE | 2019-08-02 12:21 | CT_ITS ---
STUDY: CT ABDOMEN AND PELVIS WITHOUT CONTRAST REASON FOR EXAM: Female, 73 years old. Right flank pain and history of kidney stones RADIATION DOSAGE (If Supplied By Facility): CTDIvol = ( 7.30 ) mGy, DLP = ( 315.55 ) mGycm TECHNIQUE: Transaxial images were obtained from the dome of the diaphragm to the symphysis pubis without oral contrast, and without intravenous contrast. Sagittal and coronal images were reconstructed. Individualized dose optimization techniques were used for this CT. COMPARISON: April 23, 2019 CT scan abdomen and pelvis FINDINGS: There is emphysematous change within the lung bases. The visualized portions of the heart are within normal limits. Normal liver. Normal gallbladder and extrahepatic biliary system. Normal spleen. Normal pancreas. Normal bilateral adrenal glands. There is severe right hydronephrosis and hydroureter. There are multiple stones in the right kidney measuring 1 to 3 mm. There is marked distention of the right renal pelvis that is similar to the prior study. There is also similar-appearing distended appearance of the tortuous right ureter. At the right-sided ureterovesicular junction there are 2 stones one measuring 3.8 mm the other measuring 4 mm collectively measuring 8 x 5 mm. There is a thickened appearance of the bladder especially at the level of the right-sided ureterovesicular junction. There are multiple stones in the left kidney. There is mild left hydronephrosis there is left-sided extrahepatic renal pelvis. There is a tortuous distended appearance of the left ureter. There is a suggestion that there is a stone in the distal left ureter as well that is new since prior study April 23, 2019. There are multiple small diverticula bubbly appearance of the visualized cecum which appears less severe than the prior study. There is a featureless appearance of the descending colon and rectum. There is no visualized pneumoperitoneum. Normal visualized stomach. There mildly distended loops of small bowel. There is a left lower colostomy. There is postoperative change within the cecum similar to prior study. There is non-visualization of the appendix. There is degenerative change in the distal aorta and bilateral common iliac arteries. Normal inferior vena cava. There are small retroperitoneal lymph nodes. There are nonspecific small mesenteric lymph nodes. There is a mildly thick-walled appearance of the bladder especially at the level of the right greater than left ureterovesicular junction. There is absence of the uterus consistent with a prior hysterectomy. Normal abdominal wall. There are mild diffuse degenerative changes of the visualized lumbar spine. Is visualized presacral stranding. CT/Abdomen/Pelvis without Cont IMPRESSION: Severe right hydronephrosis, severe right hydroureter recurrent or persistent since prior study with 2 small stones equating to 8 x 5 mm stone at the right side ureter vesicular junction. Probable small 3 mm stone in the distal left ureter with hydronephrosis. Status post left lower colostomy. Mild distention overall of the small bowel suggestive of mild ileus. Featureless appearance of the descending colon and rectum. Presacral stranding. Postoperative change of the cecum. Diverticulosis no diverticulitis. Electronically Signed: Helen Nur MD at 13:55 EDT Tel , Service support ,
--- NOTE | 2019-08-02 12:26 | ED.DCSUM_ITS ---
- ER Visit Summary Date of Service: 08/02/19 Chief Complaint: Right flank pain History of Present Illness: The patient is a 73 F 3 of kidney stones and ureteral stents. Also history of COPD, renal insufficiency, hypothyroidism prior rectal cancer with a colostomy. Patient states today he had right flank p ain. Associated with nausea. No vomiting or diarrhea. Mild dysuria. No fever. No gross hematuria. Physical Examination: Older female no acute distress vital signs are stable afebrile. H EENT exam unremarkable. Neck nontender. Lungs clear to auscultation. Heart regular rhythm no murmur. Abdomen soft and nontender. Normal bowel sounds no peritoneal signs. Left lower quadrant colostomy. With loose brown stool. No signs of obstruction. The abdomen is completely nontender. Patient is moving all 4 extremities. Normal range of motion and normal strength. Back nontender no flank reproducible tenderness. Neurologically she is awake alert with no focal motor deficits. Test Results: White count 8. Hemoglobin 12. Electrolytes unremarkable potassium 3.2. Gap is 6. Creatinine 1.2 previously was 1.1. UA greater than 100 white cells 50-100 red cells 2+ bacteria consistent with UTI urine culture sent. CT flank study without contrast shows significant right-sided hydro- necrosis and hydroureter with at least 2 stones in the right distal ureter. Also possibly a small left UVJ 3 mm stone. Emergency Department Course and Treatment: Older female with right flank pain history of kidney stones. Treated with a liter fluid, IV morphine and IV Zofran. CT, labs and analysis pending. Repeat exam patient is doing well at 1439. She actually feels better. She was treated with morphine and Zofran. A liter fluid. She did pass 2 or 3 stones she thought when she urinated. She and I discussed her CAT scan results plus urinary tract infection and my plan would be to admit her. I have the urologist on page. She will be started on Rocephin for the UTI. Treatment Plan: Urologist and hospitalist on page. Disposition: Admission Impression: Acute right flank pain secondary to multiple right distal ureter stone with hydroureter and hydronephrosis Acute UTI This note was generated with [employer]ero[employer] software. It may contain incorrect words, spelling, and punctuation that were not noted in review of the chart prior to signing ED Disposition - Plan for ED Patient: Referrals: Adis Mireles MD [Primary Care Provider] -
[2019-08-02 12:44] LABS: Absolute Lymphocyte Count 1.49 X10^3/uL (0.83-4.51); Absolute Neutrophil Count 6.6 X10^3/uL (2.0-7.7); Basophil# 0.02 X10^3/uL; Basophil% 0.2 % (0-1); Eosinophil# 0.16 X10^3/uL; Eosinophils% 1.8 % (0-5); Hematocrit 40.1 % (37-47); Hemoglobin 12.6 g/dL (12.0-15.0); Lymphocyte # 1.49 X10^3/ul (4.0); Lymphocyte % 16.9 % (19-41); Mean Corp Hgb Conc 31.4 g/dL (32-36); Mean Corpuscular Hgb 29.3 pg (27.0-32.0); Mean Corpuscular Volume 93.3 fL (81-99); Mean Platelet Vol. 8.6 fl (6.2-12.0); Monocyte# 0.59 X10^3/uL; Monocyte% 6.7 % (0-10); NRBC Flagged by Analyzer 0 % (0-5); Neutrophil # 6.55 X10^3/uL (2.7-7.7); Neutrophil % 74.1 % (47-70); Platelet Count 190 K/mm3 (150-450); RBC Distribution Width CV 11.9 % (11.6-14.6); White Blood Count 8.8 K/mm3 (4.4-11.0)
[2019-08-02] MEDS: Morphine 4 MG/ML Syringe 6 MG IV (12:50)
[2019-08-02] MEDS: Ondansetron 4 MG/2 ML Vial IV ×2 (12:50→21:52)
[2019-08-02] MEDS: 0.9% Normal Saline 1,000 ML 1000 ML IV (12:50)
[2019-08-02 12:54] LABS: Anion Gap 6 (5-15); BUN 11 mg/dL (7-18); BUN/Creat Ratio 8.9 RATIO (10-20); Chloride 111 mmol/L (98-107); Creatinine, Serum 1.23 mg/dL (0.55-1.02); EST Glomerular Filtration Rate 45 mL/min (>60); Est Glom Filt Rate - Afr Amer 55 mL/min (>60); Estimated Creatinine Clearance 32.22 ml/min; Glucose 105 mg/dL (74-106); Potassium 3.2 mmol/L (3.5-5.1); Sodium Level 138 mmol/L (136-145)
[2019-08-02 13:03] LABS: Mucous, Urine 0 SEEN /hpf (<or=2+)
[2019-08-02 13:05] LABS: Color, Urine Yellow (Yellow); Glucose, Dipstick Normal (Normal); Ketone-Dipstick Negative (Negative); Leukocyte Esterase-Dipstick 500 /ul (Negative); Nitrite-Dipstick Negative (Negative); Occult Blood-Urine 150 /ul (Negative); Protein-Dipstick 30 mg/dl (Negative); Urine Bilirubin Dipstick Negative (Negative); Urine Clarity Cloudy (Clear); Urine Urobilinogen Normal (Normal)
[2019-08-02 14:00] LABS: Bacteria 2+ /hpf (None Seen); Red Blood Cells-Urine 50-100 SEEN /hpf (0-5); White Blood Cells >100 SEEN /hpf (0-5)
[2019-08-02 14:02] LABS: Squamous Epithelial Cells - UA 0-5 SEEN /hpf (5-10)
[2019-08-02 14:03] VITALS: BP 126/68; PULSE 78; RESP 16; TEMP 36.4; O2SAT 97
--- NOTE | 2019-08-02 14:54 | HP.PCM_ITS ---
History of Present Illness Date of Admission: 08/02/19 Chief Complaint: right flank pain The patient is a 73 year old F with a past medical history of recurrent kidney stones and other past medical history as listed. She was admitted through the ED on 08/02/2019 with complaint of right flank pain which started on the morning of admission. Pain was very severe and rated a 10 out of 10 and was sharp in nature and radiated towards the groin. She had had multiple kidney stones in the past and so knew that this was symptomatic of kidney stones he said is coming to the ED. The ED vitals were stable. Chemistry showed potassium of 3.2 and creatinine of 1.23 which is around her baseline. CBC showed no elevated white cell count. Abdominopelvic CT scan showed severe right hydronephrosis with severe right hydroureter which is recurrent or persistent since prior study with 2 small stones equating to 8 x 5 mm stone at the right side at ureteric vesicular junction. Patient had possible 3 stones since coming to the ED. She states all her previous stones have been calcium stones. UA showed evidence of UTI she was started on IV ceftriaxone in the ED. She has been admitted to be managed for right-sided kidney stones and hydronephrosis, hypokalemia and UTI. [] Past Medical History Past Medical History (Chronic Problems): Chronic Problems (Last Reviewed 05/28/19 @ 11:23 by DANAE Degroot) Hypoxia (Chronic) Asthma-COPD overlap syndrome (Chronic) Hypothyroidism (Chronic) Anxiety (Chronic) Depression (Chronic) Nicotine abuse (Chronic) COPD (chronic obstructive pulmonary disease) (Chronic) Chronic bronchitis (Chronic) 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 calculus (Chronic) Hydronephrosis, right (Chronic) Filling defect on imaging study (Chronic) Filling defect in proximal right colon on CT abdomen History of rectal cancer (Chronic) Medical History: Medical History (Last Reviewed 05/28/19 @ 11:23 by DANAE Degroot) History of hysterectomy (Resolved) Z90.710 COPD exacerbation (Acute) J44.1 Hypothyroidism (Chronic) E03.9 Anxiety (Chronic) F41.9 Depression (Chronic) F32.9 Nicotine abuse (Chronic) Z72.0 TIA (transient ischemic attack) (Resolved) G45.9 COPD (chronic obstructive pulmonary disease) (Chronic) J44.9 Chronic bronchitis (Chronic) J42 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 calculus (Chronic) N20.1 Hydronephrosis, right (Chronic) N13.30 Filling defect on imaging study (Chronic) R93.8 Filling defect in proximal right colon on CT abdomen History of rectal cancer (Chronic) Z85.048 Allergies ciprofloxacin [From Cipro] Allergy (Verified 08/02/19 12:02) Rash ciprofloxacin HCl [From Cipro] Allergy (Verified 08/02/19 12:02) Rash Penicillins Allergy (Verified 08/02/19 12:02) Hives codeine Adverse Reaction (Verified 08/02/19 12:02) makes her feel weird makes her feel weird NSAIDS (Non-Steroidal Anti-Inflamma Adverse Reaction (Verified 08/02/19 12:02) kidney damage r/t long-term usage advised not to use kidney damage r/t long-term usage advised not to use MAGNESIUM CITRATE Adverse Reaction (Uncoded 08/02/19 12:02) Nausea Home Medications: Ambulatory Orders Medication Instructions Recorded bupropion HCl XL 150 mg 24 hr 150 mg PO QAM 11/28/18 tablet, extended release Citalopram [Celexa] 40 mg PO DAILY 04/24/19 Levothyroxine [Synthroid] 100 mcg PO DAILY@0600 tab 05/15/19 Fluticasone/Vilanterol [Breo 1 puff INHALATION DAILY 08/02/19 Ellipta] Surgical History: Surgical History (Last Reviewed 05/28/19 @ 11:23 by Theresa Hernandez NP-C) History of colostomy (Resolved) Z98.890 History of cholecystectomy (Resolved) Z90.49 History of bowel resection (Resolved) Z98.890, Z90.49 History of delivery (Resolved) Z98.891 Surgical History: cholecystectomy, tonsillectomy, - - bowel resection, colostomy Psychiatric History: No pertinent psych 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 Denies: Diarrhea, Nausea, Vomiting Genitourinary: Reports: Dysuria. Denies: Frequency, Nocturia Musculoskeletal: Denies: Joint Pain, Joint Tenderness Skin: Denies: Rash, Wounds Neurological: Reports: Balance problems Psychiatric: Denies: Anxiety, Depression, Homicidal Ideations, Suicidal Ideations Hematologic/ Lymphatic: Denies: Easy Bruising, Easy Bleeding VTE Information - Inpt Only VTE Present on Admission: No VTE Pharm Prophylaxis ordered?: Yes - Physical Exam General: Alert, Oriented x3, Cooperative, No apparent distress HEENT: Atraumatic, PERRLA, EOMI, Normocephalic Oral: Moist Mucosa Neck: Supple, No JVD, Negative Carotid Bruits Lungs: Clear to auscultation, Normal air movement, No rhonchi, No wheeze, No rales Cardiovascular: Regular rate, Regular Rhythm, Normal S1, Normal S2, No murmurs Abdomen: Bowel Sounds Present, Soft, Non Tender, Non-Distended, No Hepato-splenomegaly, - - no costophrenic angle tenderness Extremities: No edema, Capillary Refill Less than 3 Seconds Skin: No rashes, No breakdown Musculoskeletal: No Tenderness to Palpation of Joints or Extremities Lymphatic: No Cervical, Supraclavicular, or Inguinal Adenopathy Neurological: Cranial nerves II-XII grossly intact, Neuro grossly intact, Motor Exam 5/5 strength throughout Psych/Mental Status: Normal Affect, Appropriate, Alert and oriented to time, place, person, mood and affect Vital Signs Temp Pulse Resp BP Pulse Ox 98.1 F 72 16 137/74 H 97 08/02/19 12:02 08/02/19 12:02 08/02/19 12:02 08/02/19 12:02 08/02/19 12:02 Oxygen Delivery Method Room Air Weight: 120 lb Body Mass Index (BMI) 21.9 Finger Stick Blood Glucose 92 Laboratory Tests Past 24 Hrs 08/02/19 08/02/19 08/02/19 12:35 12:35 12:50 WBC 8.8 RBC 4.30 Hgb 12.6 Hct 40.1 MCV 93.3 MCH 29.3 MCHC 31.4 L RDW Std Deviation 41.0 RDW Coeff of Osmar 11.9 Plt Count 190 MPV 8.6 Immature Gran % (Auto) 0.300 Neut % (Auto) 74.1 H Lymph % (Auto) 16.9 L [place] % (Auto) 6.7 Eos % (Auto) 1.8 Baso % (Auto) 0.2 Absolute Neuts (auto) 6.6 Absolute Lymphs (auto) 1.49 Nucleated RBC % 0 Sodium 138 Potassium 3.2 L Chloride 111 H Carbon Dioxide 21.0 Anion Gap 6 BUN 11 Creatinine 1.23 H Estim Creat Clear Calc 32.22 Est GFR (MDRD) Af Amer 55 L Est GFR (MDRD) Non-Af 45 L BUN/Creatinine Ratio 8.9 L Glucose 105 Calcium 9.0 Urine Color Yellow Urine Clarity Cloudy Urine pH 6.0 Ur Specific [place] 1.020 Urine Protein 30 H Urine Glucose (UA) Normal Urine Ketones Negative Urine Occult Blood 150 H Urine Nitrite Negative Urine Bilirubin Negative Urine Urobilinogen Normal Ur Leukocyte Esterase 500 H Urine RBC 50-100 SEEN Urine WBC >100 SEEN Ur Squamous Epith Cells 0-5 SEEN Urine Bacteria 2+ Urine Mucus 0 SEEN Diagnostic Data Abdomen/Pelvis CT 08/02/19 12:21 IMPRESSION: Severe right hydronephrosis, severe right hydroureter recurrent or persistent since prior study with 2 small stones equating to 8 x 5 mm stone at the right side ureter vesicular junction. Probable small 3 mm stone in the distal left ureter with hydronephrosis. Status post left lower colostomy. Mild distention overall of the small bowel suggestive of mild ileus. Featureless appearance of the descending colon and rectum. Presacral stranding. Postoperative change of the cecum. Diverticulosis no diverticulitis. Electronically Signed: Helen Nur MD at 13:55 EDT Tel , Service support , Assessment/Plan All Active Problems (Last Reviewed 05/28/19 @ 11:23 by Theresa Hernandez NP-[place]) Urinary tract infection (Resolved) Acute kidney injury (Resolved) Bilateral ureteral calculi (Acute) Hydronephrosis due to obstruction of ureter (Acute) Acute respiratory failure with hypoxemia (Acute) History of colostomy (Resolved) History of cholecystectomy (Resolved) History of bowel resection (Resolved) History of hysterectomy (Resolved) History of delivery (Resolved) COPD exacerbation (Acute) TIA (transient ischemic attack) (Resolved) 73 y/o admitted with a complaint of right sided flank pain 1. Right sided ureteric calculi and hydronephrosis * Admit to [facility]. * CT of abdomen showed right-sided severe hydronephrosis and hydroureter which is recurrent or persistent since prior study and 2 small stones at the right side ureteric vesicular junction and probable small 3 mm stone in the distal left ureter with hydronephrosis. * Hydrate with IV fluid normal saline. Give IV morphine as needed * Continue Flomax. * Consult urology. * 2. UTI: UA showed evidence of UTI with white cell count more than 100 and bacteria 2+. Started on IV ceftriaxone. Will continue. Urine culture ordered. 3. Hypokalemia: Potassium is 3.2. Will replace and monitor. 4. History of rectal cancer: Has colostomy bag in place. 5. Hypothyroidism: On Synthroid. 6. Depression: On bupropion and Celexa. DVT prophylaxis: SCDs Code Visit Inpatient E&M: 51713 Init Hosp L3
[2019-08-02] MEDS: Ceftriaxone 1 GM/50 ML BAG IV ×2 (14:58→21:45)
--- NOTE | 2019-08-02 15:01 | NURSING ---
312 [facility]
[2019-08-02 15:48] VITALS: BMI 22.3
[2019-08-02 15:50] VITALS: BP 134/68; PULSE 82; RESP 16; TEMP 36.6; O2SAT 97
[2019-08-02 15:53] VITALS: BMI 22.3
[2019-08-02 16:00] VITALS: BP 134/68; PULSE 82; RESP 16; TEMP 36.6; O2SAT 97
[2019-08-02] MEDS: 0.9% Normal Saline 1,000 ML 150 ML IV ×2 (16:22→23:30)
[2019-08-02] MEDS: Morphine 2 MG/ML Syringe IV (18:01)
[2019-08-02] MEDS: 0.9% NaCl Peripheral Flush Adult/Peds IV (18:02)
[2019-08-02 21:23] VITALS: BP 115/73; PULSE 80; RESP 16; TEMP 37; O2SAT 98
[2019-08-02 21:45] VITALS: PULSE 80; RESP 16; O2SAT 98
[2019-08-03] VITALS (7 sets, daily range): BP systolic 106–118; BP diastolic 55–68; PULSE 73–100; RESP 12–19; TEMP 36.3–37; O2SAT 93–98
[2019-08-03] MEDS: Levothyroxine 100 MCG Tablet PO (05:05)
[2019-08-03] MEDS: Acetaminophen 325 MG Tablet 650 MG PO (05:07)
[2019-08-03] MEDS: 0.9% Normal Saline 1,000 ML 150 ML IV ×3 (06:11→21:54)
[2019-08-03] MEDS: Budesonide Respules 0.5 MG/2 ML AMPUL.NEB. INHALATION ×2 (06:51→19:14)
[2019-08-03] MEDS: Albuterol 2.5 MG/3 ML VIAL.NEB. INHALATION ×3 (06:51→19:14)
[2019-08-03 07:36] LABS: Absolute Lymphocyte Count 1.74 X10^3/uL (0.83-4.51); Absolute Neutrophil Count 3.2 X10^3/uL (2.0-7.7); Basophil# 0.01 X10^3/uL; Basophil% 0.2 % (0-1); Eosinophil# 0.19 X10^3/uL; Eosinophils% 3.4 % (0-5); Hematocrit 40.1 % (37-47); Hemoglobin 12.5 g/dL (12.0-15.0); Lymphocyte # 1.74 X10^3/ul (4.0); Mean Corp Hgb Conc 31.2 g/dL (32-36); Mean Corpuscular Hgb 29.3 pg (27.0-32.0); Mean Corpuscular Volume 94.1 fL (81-99); Mean Platelet Vol. 8.9 fl (6.2-12.0); Monocyte# 0.47 X10^3/uL; Monocyte% 8.4 % (0-10); NRBC Flagged by Analyzer 0 % (0-5); Neutrophil # 3.18 X10^3/uL (2.7-7.7); Neutrophil % 56.6 % (47-70); Platelet Count 181 K/mm3 (150-450); RBC Distribution Width SD 41.8 fl (35.1-43.9); Red Blood Count 4.26 M/mm3 (4.2-5.4); White Blood Count 5.6 K/mm3 (4.4-11.0)
[2019-08-03 07:58] LABS: Anion Gap 3 (5-15); BUN 5 mg/dL (7-18); BUN/Creat Ratio 4.7 RATIO (10-20); Calcium,Total 8.2 mg/dL (8.5-10.1); Chloride 117 mmol/L (98-107); Creatinine, Serum 1.06 mg/dL (0.55-1.02); EST Glomerular Filtration Rate 54 mL/min (>60); Est Glom Filt Rate - Afr Amer 65 mL/min (>60); Estimated Creatinine Clearance 37.38 ml/min; Glucose 82 mg/dL (74-106); Potassium 3.5 mmol/L (3.5-5.1); Sodium Level 141 mmol/L (136-145)
[2019-08-03] MEDS: Citalopram 40 MG TABLET PO (08:58)
[2019-08-03] MEDS: buPROPion (XL) 150 MG TABLET.XL PO (08:58)
[2019-08-03] MEDS: Ceftriaxone 1 GM/50 ML BAG IV ×2 (08:59→21:59)
--- NOTE | 2019-08-03 09:35 | PCM.CONS.U ---
Reason for Consult Date of Consultation: 08/03/19 Reason for Consultation: Ureteral calculi and urinary tract infection History of Present Illness: The patient is a 73 year old female who I took care of in the past for kidney stones, she presented to the hospital with a stone in the distal ureter she was able to pass a fragment the other stones were really small. Yesterday she was having a lot of pain. Passes stones. She was admitted for stones and urinary tract infection. Urine cultures are pending. Clinically she feels much better this morning no more pain or discomfort. Blood work reviewed. From my standpoint urologically no intervention is necessary I think she is going to pass the stones if she has not already. Past Medical History Past Medical History (Chronic Problems): Chronic Problems (Last Reviewed 05/28/19 @ 11:23 by DANAE Degroot) Hypoxia (Chronic) Asthma-COPD overlap syndrome (Chronic) Hypothyroidism (Chronic) Anxiety (Chronic) Depression (Chronic) Nicotine abuse (Chronic) COPD (chronic obstructive pulmonary disease) (Chronic) Chronic bronchitis (Chronic) 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 calculus (Chronic) Hydronephrosis, right (Chronic) Filling defect on imaging study (Chronic) Filling defect in proximal right colon on CT abdomen History of rectal cancer (Chronic) Medical History: Medical History (Last Reviewed 05/28/19 @ 11:23 by DANAE Degroot) History of hysterectomy (Resolved) Z90.710 COPD exacerbation (Acute) J44.1 Hypothyroidism (Chronic) E03.9 Anxiety (Chronic) F41.9 Depression (Chronic) F32.9 Nicotine abuse (Chronic) Z72.0 TIA (transient ischemic attack) (Resolved) G45.9 COPD (chronic obstructive pulmonary disease) (Chronic) J44.9 Chronic bronchitis (Chronic) J42 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 calculus (Chronic) N20.1 Hydronephrosis, right (Chronic) N13.30 Filling defect on imaging study (Chronic) R93.8 Filling defect in proximal right colon on CT abdomen History of rectal cancer (Chronic) Z85.048 Allergies ciprofloxacin [From Cipro] Allergy (Verified 08/02/19 12:02) Rash ciprofloxacin HCl [From Cipro] Allergy (Verified 08/02/19 12:02) Rash Penicillins Allergy (Verified 08/02/19 12:02) Hives codeine Adverse Reaction (Verified 08/02/19 12:02) makes her feel weird makes her feel weird NSAIDS (Non-Steroidal Anti-Inflamma Adverse Reaction (Verified 08/02/19 12:02) kidney damage r/t long-term usage advised not to use kidney damage r/t long-term usage advised not to use MAGNESIUM CITRATE Adverse Reaction (Uncoded 08/02/19 12:02) Nausea Home Medications: Ambulatory Orders Medication Instructions Recorded bupropion HCl XL 150 mg 24 hr 150 mg PO QAM 11/28/18 tablet, extended release Citalopram [Celexa] 40 mg PO DAILY 04/24/19 Levothyroxine [Synthroid] 100 mcg PO DAILY@0600 tab 05/15/19 Fluticasone/Vilanterol [Breo 1 puff INHALATION DAILY 08/02/19 Ellipta] Surgical History: Surgical History (Last Reviewed 05/28/19 @ 11:23 by Theresa Hernandez NP-C) History of colostomy (Resolved) Z98.890 History of cholecystectomy (Resolved) Z90.49 History of bowel resection (Resolved) Z98.890, Z90.49 History of delivery (Resolved) Z98.891 Surgical History: cholecystectomy, tonsillectomy, - - bowel resection, colostomy 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 Lives: With Family Smoking Status: Former smoker Tobacco Use: Cigarettes Alcohol: None Drugs: None - *Family History Maternal History Items: COPD, Heart Disease Sibling History Items: Diabetes Paternal History Items: Heart Disease Review of Systems Constitutional: Denies: Chills, Fever, Weight Change HEENT: Denies: Head Aches, Sinus Congestion, Sinus Drainage Cardiovascular: Denies: Chest Pain, Palpitations Respiratory: Denies: Cough, Shortness of breath at rest, Sputum production Gastrointestinal: Denies: Abdominal Pain, Nausea, Vomiting Genitourinary: Denies: Dysuria Musculoskeletal: Denies: Joint Pain, Joint Tenderness Skin: Denies: Rash, Wounds Neurological: Denies: Numbness, Tingling, Focal weakness Psychiatric: Denies: Anxiety, Depression, Homicidal Ideations, Suicidal Ideations Hematologic/ Lymphatic: Denies: Easy Bruising, Easy Bleeding Physical Exam - Physical Exam Vital Signs Temp 98.6 F 08/03/19 08:41 Pulse 73 08/03/19 08:41 Resp 12 08/03/19 08:41 BP 106/59 L 08/03/19 08:41 Pulse Ox 97 08/03/19 08:41 Intake & Output 08/01/19 08/02/19 08/03/19 23:59 23:59 23:59 Intake Total 2415.0 / 2815.0 1600 / 1600 Output Total 200 / 1150 2050 / 2050 Balance 2215.0 / 1665.0 -450 / -450 Weight: 55.338 kg Intake: Oral 320 / 720 600 / 600 Intake, IV Amount 2095.0 / 2095.0 1000 / 1000 0.9% Normal Saline 1,000 ML @ 1000 / 1000 1000 mls/hr IV .Q1H ONE Rx#: [id number] 0.9% Normal Saline 1,000 ML @ 995.0 / 995.0 1000 / 1000 150 mls/hr IV .Q6H40M [facility] Rx#: [id number] Rocephin 1 gm In 50 ml @ 100 50 / 50 mls/hr IV Q12 [facility] Rx#:[id number] Rocephin 1 gm In 50 ml @ 100 50 / 50 mls/hr IV X1 ONE Rx#:[id number] Output: Urine 200 / 1150 1250 / 1250 #2 Urine 600 / 600 Stool Amount 200 / 200 Other: Number of Voids 3 Number of Bowel Movements 2 General: Alert HEENT: Atraumatic Oral: Moist Mucosa Neck: Supple Lungs: Normal air movement Cardiovascular: Regular rate Abdomen: Soft Laboratory Tests Past 24 Hrs 08/02/19 08/02/19 08/02/19 12:35 12:35 12:50 WBC 8.8 RBC 4.30 Hgb 12.6 Hct 40.1 MCV 93.3 MCH 29.3 MCHC 31.4 L RDW Std Deviation 41.0 RDW Coeff of Osmar 11.9 Plt Count 190 MPV 8.6 Immature Gran % (Auto) 0.300 Neut % (Auto) 74.1 H Lymph % (Auto) 16.9 L [place] % (Auto) 6.7 Eos % (Auto) 1.8 Baso % (Auto) 0.2 Absolute Neuts (auto) 6.6 Absolute Lymphs (auto) 1.49 Nucleated RBC % 0 Sodium 138 Potassium 3.2 L Chloride 111 H Carbon Dioxide 21.0 Anion Gap 6 BUN 11 Creatinine 1.23 H Estim Creat Clear Calc 32.22 Est GFR (MDRD) Af Amer 55 L Est GFR (MDRD) Non-Af 45 L BUN/Creatinine Ratio 8.9 L Glucose 105 Calcium 9.0 Urine Color Yellow Urine Clarity Cloudy Urine pH 6.0 Ur Specific [place] 1.020 Urine Protein 30 H Urine Glucose (UA) Normal Urine Ketones Negative Urine Occult Blood 150 H Urine Nitrite Negative Urine Bilirubin Negative Urine Urobilinogen Normal Ur Leukocyte Esterase 500 H Urine RBC 50-100 SEEN Urine WBC >100 SEEN Ur Squamous Epith Cells 0-5 SEEN Urine Bacteria 2+ Urine Mucus 0 SEEN 08/03/19 08/03/19 07:05 07:05 WBC 5.6 RBC 4.26 Hgb 12.5 Hct 40.1 MCV 94.1 MCH 29.3 MCHC 31.2 L RDW Std Deviation 41.8 RDW Coeff of Osmar 12.0 Plt Count 181 MPV 8.9 Immature Gran % (Auto) 0.400 Neut % (Auto) 56.6 Lymph % (Auto) 31.0 [place] % (Auto) 8.4 Eos % (Auto) 3.4 Baso % (Auto) 0.2 Absolute Neuts (auto) 3.2 Absolute Lymphs (auto) 1.74 Nucleated RBC % 0 Sodium 141 Potassium 3.5 Chloride 117 H Carbon Dioxide 21.0 Anion Gap 3 L BUN 5 L Creatinine 1.06 H Estim Creat Clear Calc 37.38 Est GFR (MDRD) Af Amer 65 Est GFR (MDRD) Non-Af 54 L BUN/Creatinine Ratio 4.7 L Glucose 82 Calcium 8.2 L Urine Color Urine Clarity Urine pH Ur Specific [place] Urine Protein Urine Glucose (UA) Urine Ketones Urine Occult Blood Urine Nitrite Urine Bilirubin Urine Urobilinogen Ur Leukocyte Esterase Urine RBC Urine WBC Ur Squamous Epith Cells Urine Bacteria Urine Mucus Assessment/Plan All Active Problems (Last Reviewed 05/28/19 @ 11:23 by Theresa Hernandez NP-C) Urinary tract infection (Resolved) Acute kidney injury (Resolved) Bilateral ureteral calculi (Acute) Hydronephrosis due to obstruction of ureter (Acute) Acute respiratory failure with hypoxemia (Acute) History of colostomy (Resolved) History of cholecystectomy (Resolved) History of bowel resection (Resolved) History of hysterectomy (Resolved) History of delivery (Resolved) COPD exacerbation (Acute) TIA (transient ischemic attack) (Resolved) 73-year-old female with history of recurrent kidney stones presents the emergency room yesterday with a distal ureteral calculi I think she is passing stones currently is feeling well no flank pain or discomfort. She does have a urinary tract infection, cultures pending, from a urologic standpoint no intervention is necessary. Call me with questions. On discharge certainly she can follow-up with urology as an outpatient.
--- NOTE | 2019-08-03 09:37 | PN_ITS ---
Subjective: The patient is a 73-year-old female with a past medical history of asthma/COPD, hypothyroidism, anxiety/depression, tobacco dependence, nephrolithiasis and history of rectal cancer who presented to the emergency room at [facility] on 08/02/2019 complaining of right flank pain. In the emergency department she was afebrile and hemodynamically stable. CBC was unremarkable. BMP was significant for a low potassium at 3.2 with an elevated creatinine at 1.23 which is within her baseline. A UA showed 50-100 RBCs and greater than 100 WBCs per high-power field. There was 2+ bacteria. CT scan of the abdomen and pelvis without contrast showed severe right hydronephrosis, severe right hydroureter with 2 small stones at the right ureterovesical junction. There was a probable small 3 mm stone in the distal left ureter with hydronephrosis. There was also diverticulosis with no evidence of diverticulitis. Urine was sent for culture. She was admitted to the hospital with bilateral hydronephrosis secondary to ureteral calculi. She was started on ceftriaxone for urinary tract infection. Consult was placed for Dr. Gray. All events of the past 24 hours of been reviewed. Afebrile since admission. Hemodynamically stable with appropriate pulse ox on room air. All lab was personally reviewed. The white blood cell count remains within normal limits at 5.6 with a normal differential. Creatinine is down to 1.06 with hydration. Potassium has been repleted and is 3.5 today. Urine culture is pending Flank pain has resolved and she denies fever. Her only complaint at this time is DE GUZMAN. she gets DE GUZMAN's at times at home and they are mostly unilateral and associated with light sensitivity, sound sensitivity and sometimes nausea.....she prefers to be in a dark room. She had a GM who had migraines. She is covering her eyes when I entered the room. The DE GUZMAN is on the left side of the head. No hx of CAD. Has never taken a triptan. - Physical Exam General: Alert, Oriented x3, Cooperative, - - appears to be in pain and she is covering her eyes HEENT: Atraumatic, PERRLA, EOMI, Normocephalic Oral: No Gingival or Mucosal Lesions/ Ulcerations, Dry Mucosa Neck: Supple, No JVD, No Nodes, No Nuchal Rigidity, Trachea Midline Lungs: Clear to auscultation Cardiovascular: Regular rate, Regular Rhythm Abdomen: Bowel Sounds Present, Soft, Non Tender, Non-Distended Extremities: No edema Skin: No rashes Neurological: Cranial nerves II-XII grossly intact, Neuro grossly intact Psych/Mental Status: Normal Affect, Appropriate Vital Signs Temp Pulse Resp BP Pulse Ox 98.6 F 73 12 106/59 L 97 08/03/19 08:41 08/03/19 08:41 08/03/19 08:41 08/03/19 08:41 08/03/19 08:41 Oxygen Delivery Method Room Air Weight: 122 lb Body Mass Index (BMI) 22.3 Finger Stick Blood Glucose 92 Intake and Output for Last 24 Hours 08/01/19 08/02/19 08/03/19 23:59 23:59 23:59 Intake Total 2415.0 / 2815.0 1600 / 1600 Output Total 200 / 1150 2049 / 2049 Balance 2215.0 / 1665.0 -450 / -450 Laboratory Tests Past 24 Hrs 08/02/19 08/02/19 08/02/19 12:35 12:35 12:50 WBC 8.8 RBC 4.30 Hgb 12.6 Hct 40.1 MCV 93.3 MCH 29.3 MCHC 31.4 L RDW Std Deviation 41.0 RDW Coeff of Osmar 11.9 Plt Count 190 MPV 8.6 Immature Gran % (Auto) 0.300 Neut % (Auto) 74.1 H Lymph % (Auto) 16.9 L [place] % (Auto) 6.7 Eos % (Auto) 1.8 Baso % (Auto) 0.2 Absolute Neuts (auto) 6.6 Absolute Lymphs (auto) 1.49 Nucleated RBC % 0 Sodium 138 Potassium 3.2 L Chloride 111 H Carbon Dioxide 21.0 Anion Gap 6 BUN 11 Creatinine 1.23 H Estim Creat Clear Calc 32.22 Est GFR (MDRD) Af Amer 55 L Est GFR (MDRD) Non-Af 45 L BUN/Creatinine Ratio 8.9 L Glucose 105 Calcium 9.0 Urine Color Yellow Urine Clarity Cloudy Urine pH 6.0 Ur Specific [place] 1.020 Urine Protein 30 H Urine Glucose (UA) Normal Urine Ketones Negative Urine Occult Blood 150 H Urine Nitrite Negative Urine Bilirubin Negative Urine Urobilinogen Normal Ur Leukocyte Esterase 500 H Urine RBC 50-100 SEEN Urine WBC >100 SEEN Ur Squamous Epith Cells 0-5 SEEN Urine Bacteria 2+ Urine Mucus 0 SEEN 08/03/19 08/03/19 07:05 07:05 WBC 5.6 RBC 4.26 Hgb 12.5 Hct 40.1 MCV 94.1 MCH 29.3 MCHC 31.2 L RDW Std Deviation 41.8 RDW Coeff of Osmar 12.0 Plt Count 181 MPV 8.9 Immature Gran % (Auto) 0.400 Neut % (Auto) 56.6 Lymph % (Auto) 31.0 [place] % (Auto) 8.4 Eos % (Auto) 3.4 Baso % (Auto) 0.2 Absolute Neuts (auto) 3.2 Absolute Lymphs (auto) 1.74 Nucleated RBC % 0 Sodium 141 Potassium 3.5 Chloride 117 H Carbon Dioxide 21.0 Anion Gap 3 L BUN 5 L Creatinine 1.06 H Estim Creat Clear Calc 37.38 Est GFR (MDRD) Af Amer 65 Est GFR (MDRD) Non-Af 54 L BUN/Creatinine Ratio 4.7 L Glucose 82 Calcium 8.2 L Urine Color Urine Clarity Urine pH Ur Specific [place] Urine Protein Urine Glucose (UA) Urine Ketones Urine Occult Blood Urine Nitrite Urine Bilirubin Urine Urobilinogen Ur Leukocyte Esterase Urine RBC Urine WBC Ur Squamous Epith Cells Urine Bacteria Urine Mucus Medical Necessity - Tobacco Use Smoking Status: Former smoker Tobacco Use: Cigarettes Assessment/Plan All Active Problems (Last Reviewed 05/28/19 @ 11:23 by Theresa Hernandez NP-C) Urinary tract infection (Resolved) Acute kidney injury (Resolved) Bilateral ureteral calculi (Acute) Hydronephrosis due to obstruction of ureter (Acute) Acute respiratory failure with hypoxemia (Acute) History of colostomy (Resolved) History of cholecystectomy (Resolved) History of bowel resection (Resolved) History of hysterectomy (Resolved) History of delivery (Resolved) COPD exacerbation (Acute) TIA (transient ischemic attack) (Resolved) Impressions 1. BL hydronephrosis - due to nephrolithiasis. Review of old records shows that she has calcium oxalate stones. 2. dehydration - continue IV fluids 3. acute migraine cephalgia - Continue the IV fluids. Decadron, Reglan ad Depakote for 24-48 hours. 4. possible UTI vs RBC's and WBC's in the urine due to kidney stones - Continue Rocephin pending the results of the urine culture 5. Hypokalemia - resolved with supplementation Code Visit Inpatient E&M: 54495 Subs Hosp L2
[2019-08-03] MEDS: 0.9% NaCl Peripheral Flush Adult/Peds IV ×3 (11:31→18:29)
[2019-08-03] MEDS: Metoclopramide 10 MG/2 ML Vial 5 MG IV ×2 (11:31→18:27)
[2019-08-03] MEDS: dexAMETHasone 10 MG/ML Vial IV (11:46)
--- NOTE | 2019-08-03 16:37 | CM.UR ---
RN CM Assessment Introduced role of RN CM to patient and patient Dtr Coco at bedside.? Patient is alert, oriented and able?to participate in RN CM Assessment. ?Care providers, pharmacy, and demographics verified. No family at bedside. Presentation: right flank pain Admit Dx: Hydronephrosis, kidney stones. Re-Admit: No Barriers/Issues: none PCP: Adis Mireles Specialists: Urology--Dr. velazquez, Pulm- Dr Santos, Ortho for Arthritis- Dr Haskins Preferred Pharmacy: [facility] Insurance: [facility], MMO Rx Benefit:?Yes ?LNOK: Dtr Coco Mondragon and Dtr Jessica Johnson LW/HPOA: yes, on file. Daughter, Jessica, is HPOA. Living Arrangements:?Lives alone in a 1 story Home, 2 steps to enter. Denies accessibility issues. ADL?s: Ambulates with cane, otherwise independent with all ADLs. Transportation: Patient drives or family. DME: Cane, Walker, raised toilet seat. Has o2 from [employer]. Not currently using it. States following up with Dr. Santos in dec and they may return it at that time. HHC: None SNF: None Goal: Home DC PLAN: Home with resumption of OP therapy. Horacio Vo RN, CCM.
[2019-08-03] MEDS: dexAMETHasone 4 MG/ML Vial IV (18:29)
[2019-08-04] MEDS: Metoclopramide 10 MG/2 ML Vial 5 MG IV ×3 (00:03→11:28)
[2019-08-04] MEDS: dexAMETHasone 4 MG/ML Vial IV ×3 (00:04→11:28)
[2019-08-04] MEDS: 0.9% NaCl Peripheral Flush Adult/Peds IV ×3 (00:04→11:30)
[2019-08-04 03:47] VITALS: BP 124/63; PULSE 84; RESP 16; TEMP 36.4; O2SAT 95
[2019-08-04] MEDS: Levothyroxine 100 MCG Tablet PO (05:05)
[2019-08-04] MEDS: 0.9% Normal Saline 1,000 ML 150 ML IV (05:06)
[2019-08-04 07:17] VITALS: PULSE 75; RESP 16; O2SAT 97
[2019-08-04] MEDS: Budesonide Respules 0.5 MG/2 ML AMPUL.NEB. INHALATION (07:17)
[2019-08-04] MEDS: Albuterol 2.5 MG/3 ML VIAL.NEB. INHALATION (07:17)
--- NOTE | 2019-08-04 09:41 | DCINST_ITS ---
You will use the following diet at home:: Regular Your food should be the consistency of: Regular Your liquids should be the consistency of: Regular/Thin Discharge Activity: Return to Normal Activity Call your doctor if you observe: Fever of 101 or Higher, Shortness of breath, Dizziness, Fainting spells, Swelling in the ankles, Chest pain, Increased palpitations (irregular heartbeat) Allergies/Adverse Reactions: Allergies ciprofloxacin [From Cipro] Allergy (Verified 08/02/19 12:02) Rash ciprofloxacin HCl [From Cipro] Allergy (Verified 08/02/19 12:02) Rash Penicillins Allergy (Verified 08/02/19 12:02) Hives codeine Adverse Reaction (Verified 08/02/19 12:02) makes her feel weird makes her feel weird NSAIDS (Non-Steroidal Anti-Inflamma Adverse Reaction (Verified 08/02/19 12:02) kidney damage r/t long-term usage advised not to use kidney damage r/t long-term usage advised not to use MAGNESIUM CITRATE Adverse Reaction (Uncoded 08/02/19 12:02) Nausea Medications to take at Discharge bupropion HCl XL 150 mg 24 hr tablet, extended release 150 mg PO QAM 11/28/18 Citalopram [Celexa] 40 mg PO DAILY 04/24/19 Levothyroxine [Synthroid] 100 mcg PO DAILY@0600 tab 05/15/19 Fluticasone/Vilanterol [Breo Ellipta 200-25 Mcg INH] 1 puff INHALATION DAILY 08/02/19 Cephalexin [Keflex] 500 mg PO Q8 #6 cap 08/04/19 The following prescriptions were given: Cephalexin [Keflex] 500 mg PO Q8 #6 cap Transmission Status: Pending to [id number] Primary Care Physician: Adis Mireles MD [Primary Care Provider] - Please follow up with your Primary Care Physician in: 3-5 days Test Results: Test results from this visit will be discussed in further detail at your follow- up appointment, if applicable. Please Follow Up With: Minal Morrison MD When: 1-2 weeks
--- NOTE | 2019-08-04 09:42 | DS.PCM_ITS ---
Discharge Date and Diagnosis Date of Admission: 08/02/19 Date of Discharge: 08/04/19 - Secondary Discharge Diagnosis Chronic Problems (Last Reviewed 05/28/19 @ 11:23 by DANAE Degroot) Hypoxia (Chronic) Asthma-COPD overlap syndrome (Chronic) Hypothyroidism (Chronic) Anxiety (Chronic) Depression (Chronic) Nicotine abuse (Chronic) COPD (chronic obstructive pulmonary disease) (Chronic) Chronic bronchitis (Chronic) 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 calculus (Chronic) Hydronephrosis, right (Chronic) Filling defect on imaging study (Chronic) Filling defect in proximal right colon on CT abdomen History of rectal cancer (Chronic) Hospital Course and Treatment Imaging Results: CT Abd/Pelvis: IMPRESSION: Severe right hydronephrosis, severe right hydroureter recurrent or persistent since prior study with 2 small stones equating to 8 x 5 mm stone at the right side ureter vesicular junction. Probable small 3 mm stone in the distal left ureter with hydronephrosis. Status post left lower colostomy. Mild distention overall of the small bowel suggestive of mild ileus. Featureless appearance of the descending colon and rectum. Presacral stranding. Postoperative change of the cecum. Diverticulosis no diverticulitis. Consults: Urology Operations: None Procedures: None Summary of Care Provided: Per HPI: The patient is a 73 year old F with a past medical history of recurrent kidney stones and other past medical history as listed. She was admitted through the ED on 08/02/2019 with complaint of right flank pain which started on the morning of admission. Pain was very severe and rated a 10 out of 10 and was sharp in nature and radiated towards the groin. She had had multiple kidney stones in the past and so knew that this was symptomatic of kidney stones he said is coming to the ED. The ED vitals were stable. Chemistry showed potassium of 3.2 and creatinine of 1.23 which is around her baseline. CBC showed no elevated white cell count. Abdominopelvic CT scan showed severe right hydronephrosis with severe right hydroureter which is recurrent or persistent s anupama prior study with 2 small stones equating to 8 x 5 mm stone at the right side at ureteric vesicular junction. Patient had possible 3 stones since coming to the ED. She states all her previous stones have been calcium stones. UA showed evidence of UTI she was started on IV ceftriaxone in the ED. She has been admitted to be managed for right-sided kidney stones and hydronephrosis, hypokalemia and UTI. Hospital Course: 1. Right hydronephrosis with nephrolithiasis/NOX-10-wjvr-old female with significant history of kidney stones in the past, presents with recurrent kidney stone and right significant hydronephrosis. Urology was consulted and felt that the stones are small enough to pass and given the resolution of her pain, felt that she likely had already passed the stones. She also had a UA that was significant for a UTI, urine culture is still pending however she did receive 3 doses of Rocephin. Will plan to discharge her on Keflex 3 times daily for 2 mor e days and will monitor the urine culture for sensitivities. She will follow-up with her urologist as an outpatient for the recurrent kidney stones, however she would like to go home today. I discussed with her the risks and benefits of going home and she agrees to going home. 2. Migraine-on her second day of admission she did develop a migraine and was given a dose of Reglan and Depakote as well as Decadron. On the day of discharge her migraine has completely resolved. 3. Her other medical diagnoses were evaluated and her home medications were continued where appropriate - Physical Exam General: Alert, Oriented x3, Cooperative, No apparent distress HEENT: Atraumatic, PERRLA, EOMI, Normocephalic Oral: Moist Mucosa Neck: Supple, No JVD Lungs: Clear to auscultation, Normal air movement, No rhonchi, No wheeze, No rales Cardiovascular: Regular rate, Regular Rhythm, Normal S1, Normal S2, No murmurs Abdomen: Soft, Non Tender, Non-Distended, No Hepato-splenomegaly Extremities: No edema, Capillary Refill Less than 3 Seconds Skin: No rashes, No breakdown Neurological: Neuro grossly intact, Sensory exam intact to light touch and pain Psych/Mental Status: Normal Affect, Appropriate Vital Signs Temp Pulse Resp BP Pulse Ox 97.6 F L 75 16 124/63 H 97 08/04/19 03:47 08/04/19 07:17 08/04/19 07:17 08/04/19 03:47 08/04/19 07:17 Oxygen Delivery Method Room Air Weight: 121 lb 14.65 oz Body Mass Index (BMI) 22.3 Finger Stick Blood Glucose 92 Intake and Output for Last 24 Hours 08/02/19 08/03/19 08/04/19 23:59 23:59 23:59 Intake Total 2415.0 / 2815.0 4185.0 / 4185.0 1390 / 1390 Output Total 200 / 1150 4925 / 4925 1225 / 1225 Balance 2215.0 / 1665.0 -740.0 / -740.0 165 / 165 Discharge Activity: Return to Normal Activity Call your doctor if you observe: Fever of 101 or Higher, Shortness of breath, Dizziness, Fainting spells, Swelling in the ankles, Chest pain, Increased palpitations (irregular heartbeat) Home Medications: Medications to take at Discharge bupropion HCl XL 150 mg 24 hr tablet, extended release 150 mg PO QAM 11/28/18 Citalopram [Celexa] 40 mg PO DAILY 04/24/19 Levothyroxine [Synthroid] 100 mcg PO DAILY@0600 tab 05/15/19 Fluticasone/Vilanterol [Breo Ellipta 200-25 Mcg INH] 1 puff INHALATION DAILY 08/02/19 Cephalexin [Keflex] 500 mg PO Q8 #6 cap 08/04/19 Following Prescrptions Were Given to Patient: Cephalexin [Keflex] 500 mg PO Q8 #6 cap Transmission Status: Received by [id number] Primary Care Physician: Adis Mireles MD [Primary Care Provider] - Please follow up with your Primary Care Physician in: 3-5 days Please Follow Up With: Minal Morrison MD When: 1-2 weeks Disposition: Home Minutes spent on discharge:: 35 Patient Condition:: Stable Medical Necessity - Tobacco Use Smoking Status: Former smoker Tobacco Use: Cigarettes Meaningful Use Info Meaningful Use Diagnoses (Choose all that apply): None applicable Code Visit Inpatient E&M: 53202 Disch Hosp
[2019-08-04] MEDS: Ceftriaxone 1 GM/50 ML BAG IV (10:06)
[2019-08-04] MEDS: buPROPion (XL) 150 MG TABLET.XL PO (10:09)
[2019-08-04] MEDS: Citalopram 40 MG TABLET PO (10:09)
[2019-08-04 10:14] VITALS: BP 125/61; PULSE 82; RESP 16; TEMP 36.6; O2SAT 95
[2019-08-04 11:35] VITALS: BP 132/58; PULSE 79; RESP 18; TEMP 36.6; O2SAT 99
== END 2019-08-04 12:03 | disposition home or self-care (01) | DRG 690 ==
LOC: ED 12:26 → MS3 15:14
PROVIDERS: Admitting Provider Student in an Organized Health Care Education/Training Program; Emergency Provider Emergency Medicine; Family Provider Internal Medicine; PCP Internal Medicine; Referring Provider Student in an Organized Health Care Education/Training Program; Visit Provider Family Medicine
DX: N13.6 Pyonephrosis (principal); E03.9 Hypothyroidism, unspecified; F32.9 Major depressive disorder, single episode, unspecified; E87.6 Hypokalemia; Z93.3 Colostomy status; Z85.048 Personal history of other malignant neoplasm of rectum, rectosigmoid junction, and anus; Z79.899 Other long term (current) drug therapy; Z87.891 Personal history of nicotine dependence; E86.0 Dehydration; G43.909 Migraine, unspecified, not intractable, without status migrainosus; F41.9 Anxiety disorder, unspecified; J44.9 Chronic obstructive pulmonary disease, unspecified; Z87.442 Personal history of urinary calculi
CPT/HCPCS: 36415; 74176; 80048; 81001; 85025; 87086; 87088; 94640; 97162; 97165; 97530; 97802; 99284; J7030; J7040; A4216; J2405

== ENCOUNTER 2019-08-27 17:10 | Emergency (ER) | payer MEDICARE, OTHER, SELFPAY ==
[2019-08-27 17:11] VITALS: BP 155/79; PULSE 95; RESP 18; TEMP 36.6; O2SAT 95; BMI 23.0
--- NOTE | 2019-08-27 17:29 | ED.RN ---
DENIES ABD PAIN.
--- NOTE | 2019-08-27 17:46 | CT_ITS ---
STUDY: CT ABDOMEN AND PELVIS WITH CONTRAST REASON FOR EXAM: Female, 74 years old. Pain RADIATION DOSAGE (If Supplied By Facility): DLP = ( 561.21 ) mGycm TECHNIQUE: Transaxial images were obtained from the dome of the diaphragm to the symphysis pubis without oral contrast. 75mL ml of Isovue 370 contrast was administered. Sagittal and coronal images were reconstructed. Individualized dose optimization techniques were used for this CT. COMPARISON: CT abdomen and pelvis August 02, 2019 FINDINGS: The visualized lung bases are clear. The visualized portions of the heart and pericardium are within normal limits. The gallbladder has been removed. The liver is within normal limits. There are no suspicious hepatic lesions. The spleen is normal in size. The pancreas is within normal limits. The adrenal glands are within normal limits. There are no obstructing renal stones. Scattered bilateral renal calcifications are present. Bilateral cysts are present measuring 1 cm or less. There has been interval resolution of right-sided hydroureteronephrosis and resolution of obstructing right UVJ stones. No hydronephrosis is present. Normal visualized stomach. There is mild rectal wall thickening. There is no evidence of bowel obstruction. Left lower quadrant colostomy is present. The appendix is not visualized, but there are no findings to suggest acute appendicitis. The aorta is normal in caliber. There is no abdominal or pelvic free air, free fluid, fluid collection or lymphadenopathy. There are no destructive osseous lesions. CT/Abdomen/Pelvis WITH Contrast IMPRESSION: Interval resolution of right-sided hydroureteronephrosis and obstructing right UVJ stones. Bilateral nonobstructing renal stones. Mild rectal wall thickening, suggesting proctitis. Electronically Signed: Antonio Barnhart, at 20:05 EDT Tel , Service support ,
[2019-08-27 18:09] LABS: Bacteria 0 SEEN /hpf (None Seen)
--- NOTE | 2019-08-27 18:11 | ED.DCSUM_ITS ---
- ER Visit Summary Date of Service: 08/27/19 Chief Complaint: Diarrhea History of Present Illness: The patient is a 74 F presenting with diarrhea. Patient states this started yesterday. She has a colostomy secondary to radiation from rectal cancer. She has had the colostomy in place for over 10 years. She typically has some rectal discharge and small amounts of stool from her rectum. She states she is having increased amount of stool from her rectum and in her colostomy bag. She denies blood in her stool. She had a kidney infection in July and was treated with antibiotics at that time. She finished this course of antibiotics. She also complains of burning with urination. She denies nausea or vomiting. Denies fever. Denies abdominal pain. Denies other complaints. Physical Examination: Vitals are stable. Patient is afebrile. Alert no acute distress. HEENT exam is unremarkable. Neck is supple. Lungs are clear and equal bilaterally. Heart is regular rate and rhythm. Abdomen is soft nontender with no rebound or guarding. Colostomy pink. Extremities are unremarkable. Skin is warm and dry. No focal neurologic deficit. Remainder of exam is unremarkable. Emergency Department Course and Treatment: Patient was given IV fluids. CBC, chemistries unremarkable other than creatinine 1.24. Urinalysis shows 25-50 white blood cells, 0-5 red blood cells. Lactic acid is normal. Urine culture was sent. Stool studies were sent. CT abdomen pelvis shows interval resolution of right-sided hydroureteronephrosis and obstructing right UVJ stones. Bilateral nonobstructing renal stones. Mild rectal wall thickening, suggesting proctitis. Discussed findings with Dr. Yates. She recommends discharge home awaiting stool studies and follow-up with Dr. Stevenson. Patient is agreeable with this plan. She feels well. She is ambulating in the ED without difficulty. She has no abdominal pain. She will follow-up with her primary care physician and Dr. Stevenson. She is advised to return to the ED for worsening complaints. Disposition: Discharge home Impression: UTI, diarrhea This note was generated with [employer] dictation software. It may contain incorrect words, spelling, and punctuation that were not noted in review of the chart prior to signing ED Disposition - Plan for ED Patient: Instructions: DIARRHEA, Unk Cause (Adult) Report Pendg Referrals: Sanjeev Stevenson MD [STAFF PHYSICIAN] - Adis Mireles MD [Primary Care Provider] -
[2019-08-27 18:19] LABS: Color, Urine Yellow (Yellow); Glucose, Dipstick Normal (Normal); Ketone-Dipstick Negative (Negative); Leukocyte Esterase-Dipstick 100 /ul (Negative); Nitrite-Dipstick Negative (Negative); Occult Blood-Urine 10 /ul (Negative); Protein-Dipstick 15 mg/dl (Negative); Urine Bilirubin Dipstick Negative (Negative); Urine Clarity Sl. Cloudy (Clear); Urine Urobilinogen Normal (Normal)
[2019-08-27 18:24] LABS: Absolute Lymphocyte Count 1.93 X10^3/uL (0.83-4.51); Absolute Neutrophil Count 5.9 X10^3/uL (2.0-7.7); Basophil# 0.02 X10^3/uL; Basophil% 0.2 % (0-1); Eosinophils% 2.3 % (0-5); Hematocrit 43.6 % (37-47); Hemoglobin 13.6 g/dL (12.0-15.0); Lymphocyte # 1.93 X10^3/ul (4.0); Lymphocyte % 22.2 % (19-41); Mean Corp Hgb Conc 31.2 g/dL (32-36); Mean Corpuscular Hgb 28.9 pg (27.0-32.0); Mean Corpuscular Volume 92.8 fL (81-99); Mean Platelet Vol. 8.9 fl (6.2-12.0); Monocyte# 0.67 X10^3/uL; Monocyte% 7.7 % (0-10); NRBC Flagged by Analyzer 0 % (0-5); Neutrophil # 5.85 X10^3/uL (2.7-7.7); Neutrophil % 67.4 % (47-70); Platelet Count 236 K/mm3 (150-450); RBC Distribution Width CV 12.6 % (11.6-14.6); RBC Distribution Width SD 43.3 fl (35.1-43.9); White Blood Count 8.7 K/mm3 (4.4-11.0)
[2019-08-27 18:31] LABS: Hyaline Cast 0-5 SEEN /lpf (0-5)
[2019-08-27 18:32] LABS: Mucous, Urine RARE /hpf (<or=2+); Squamous Epithelial Cells - UA 0-5 SEEN /hpf (5-10)
[2019-08-27 18:34] LABS: Red Blood Cells-Urine 0-5 SEEN /hpf (0-5)
[2019-08-27 18:35] LABS: Yeast-Urine RARE /hpf (None Seen)
[2019-08-27 18:37] LABS: White Blood Cells 25-50 SEEN /hpf (0-5)
[2019-08-27 18:48] LABS: ALB/GLOB Ratio 0.9 RATIO (0.9-2.4); AST(SGOT) 21 U/L (15-37); Alanine Aminotransfer ALT/SGPT 27 U/L (13-56); Albumin, Serum 3.6 g/dL (3.2-5.0); Alkaline Phosphatase 87 U/L (45-117); Anion Gap 8 (5-15); BUN 14 mg/dL (7-18); BUN/Creat Ratio 11.3 RATIO (10-20); Calcium,Total 9.3 mg/dL (8.5-10.1); Chloride 111 mmol/L (98-107); Creatinine, Serum 1.24 mg/dL (0.55-1.02); EST Glomerular Filtration Rate 45 mL/min (>60); Est Glom Filt Rate - Afr Amer 54 mL/min (>60); Estimated Creatinine Clearance 30.04 ml/min; Globulin 4.1 g/dL (2.2-4.2); Glucose 95 mg/dL (74-106); Protein, Total 7.7 g/dL (6.4-8.2); Sodium Level 143 mmol/L (136-145)
[2019-08-27 18:50] LABS: Lactic Acid 1.9 mmol/L (0.4-2.0)
--- NOTE | 2019-08-27 20:52 | ED.DEP ---
ED Disposition - Plan for ED Patient: Instructions: DIARRHEA, Unk Cause (Adult) Report Pendg Referrals: Adis Mireles MD [Primary Care Provider] - Sanjeev Stevenson MD [STAFF PHYSICIAN] -
--- NOTE | 2019-08-27 20:59 | ED.DEP ---
ED Disposition - Plan for ED Patient: Instructions: DIARRHEA, Unk Cause (Adult) Report Pendg Prescriptions: Cephalexin [Keflex] 500 mg PO Q12 #14 capsule Referrals: Sanjeev Stevenson MD [STAFF PHYSICIAN] - Adis Mireles MD [Primary Care Provider] -
[2019-08-27] MEDS: Cephalexin 250 MG Capsule 500 MG PO (21:08)
[2019-08-27 21:17] VITALS: BP 135/79; PULSE 76; RESP 16; O2SAT 96
== END 2019-08-27 21:19 | disposition home or self-care (01) ==
PROVIDERS: Emergency Provider Emergency Medicine; Family Provider Internal Medicine; PCP Internal Medicine
DX: N13.6 Pyonephrosis (principal); R19.7 Diarrhea, unspecified; Z86.73 Personal history of transient ischemic attack (TIA), and cerebral infarction without residual deficits; Z85.048 Personal history of other malignant neoplasm of rectum, rectosigmoid junction, and anus; Z92.3 Personal history of irradiation; Z87.440 Personal history of urinary (tract) infections; Z93.3 Colostomy status
CPT/HCPCS: 74177; 80053; 81001; 83605; 83630; 85025; 87086; 87493; 87506; 96360; 96361; 99284; J7040; Q9967; A4216

== ENCOUNTER 2019-10-09 07:37 | Day surgery (SDC) | payer MEDICARE, OTHER, SELFPAY ==
[2019-09-20 08:43] VITALS: BMI 22.6
--- NOTE | 2019-09-21 11:05 | HP_ITS ---
Intake Vital Signs 09/21/19 Body Mass Index (BMI) 23.0 09/20/19 Height 5 ft 1 in 09/20/19 Weight: 120 lb 09/20/19 Body Mass Index (BMI) 22.6 09/20/19 Blood Pressure 119/82 H 09/20/19 Blood Pressure Location Rt brachial 09/20/19 Blood Pressure Position Sitting 09/20/19 Respiratory Rate 18 09/20/19 Pulse Rate 85 09/20/19 Pulse Source Monitor 09/20/19 Temperature 97.9 F 09/20/19 Temperature Source Oral 09/20/19 Pulse Ox 96 09/20/19 Oxygen Delivery Method room air 09/18/19 Body Mass Index (BMI) 23.0 Intake Visit Reasons: Bloating/Gas/Not eating Chief Complaint: Bloating/Decreased appetite Surgical Corsetier Required: No Accompanied by: Daughter Is patient in pain?: No Allergies ciprofloxacin [From Cipro] Allergy (Verified 09/20/19 08:44) Rash ciprofloxacin HCl [From Cipro] Allergy (Verified 09/20/19 08:44) Rash Penicillins Allergy (Verified 09/20/19 08:44) Hives codeine Adverse Reaction (Verified 09/20/19 08:44) makes her feel weird NSAIDS (Non-Steroidal Anti-Inflamma Adverse Reaction (Verified 09/20/19 08:44) kidney damage r/t long-term usage advised not to use MAGNESIUM CITRATE Adverse Reaction (Uncoded 08/27/19 17:13) Nausea Medications bupropion HCl XL 150 mg 24 hr tablet, extended release 150 mg PO QAM 11/28/18 [History Confirmed 09/20/19] Citalopram [Celexa] 40 mg PO DAILY 04/24/19 [History Confirmed 09/20/19] Fluticasone/Vilanterol [Breo Ellipta 200-25 Mcg INH] 1 puff INHALATION DAILY 08/02/19 [History Confirmed 09/20/19] Levothyroxine [Synthroid] 88 mcg PO DAILY@0600 08/27/19 [History Confirmed 09/20/19] [facility] Medical History History of hysterectomy (Resolved) COPD exacerbation (Acute) Hypothyroidism (Chronic) Anxiety (Chronic) Depression (Chronic) Nicotine abuse (Chronic) TIA (transient ischemic attack) (Resolved) COPD (chronic obstructive pulmonary disease) (Chronic) Chronic bronchitis (Chronic) 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 calculus (Chronic) Hydronephrosis, right (Chronic) Filling defect on imaging study (Chronic) History of rectal cancer (Chronic) Abdominal bloating (Acute) Decreased appetite (Acute) Rectal cancer (Acute) Surgical History History of colostomy (Resolved) History of cholecystectomy (Resolved) History of bowel resection (Resolved) History of delivery (Resolved) History of hysterectomy (Acute) Family History Father Heart disease Mother Heart disease Sister Heart disease Diabetes Social History (Updated 09/21/19 @ 11:06 by Sanjeev Stevenson MD) Smoking Status: Former smoker Tobacco: How many years used: 53 second hand exposure: No alcohol intake: never substance use type: does not use caffeine: No what type of physical activity do you participate in: none HPI HPI HPI: JOSE DE JESUS GOLD, is a 74 F who presents to the office today for HPI HPI Surgical H&P: Yes HPI: JOSE DE JESUS GOLD, is a 74 F who presents to the office today for For endoscopy. Patient's last colonoscopy was performed by myself and April 2013. It was essentially negative she has a known history of rectal cancer and has a permanent stoma in her left lower quadrant. She does have a small rectal stump. She has been complaining of some significant amount of bloating as well as discharge from her rectal stump. She has been worked up in the emergency department numerous times has had stool cultures which showed no signs of any pathologic organisms and has been C. difficile negative ROS General General: No weight change, appetite, fatigue, colon cancer, breast cancer or weakness HEENT HEENT: No difficulty swallowing, eye injury, eye surgery, swollen glands or hoarseness Endo Endocrine: Yes thyroid disease; no diabetes mellitus, thyroid cancer, Hair loss, heat intolerance or cold intolerance Skin Skin: No rash or changing moles Breast Breast: No left breast lump, right breast lump, nipple discharge, breast pain, abnormal mammogram, abnormal US or breast enlargement Musc Musculoskeletal: Yes arthritis; no back problems, rheumatoid arthritis, gout or joint pain Cardio Cardiovascular: No murmur, pacemaker, heart disease, atrial fibrillation, high blood pressure, heart attack, heart stent, palpitations, shortness of breat with exertion or chest pain Psych Psychiatric: Yes depression and anxiety; no hearing voices Resp Respiratory: No shortness of breath, No sleep apnea, No cough, Yes COPD, No asthma, No emphysema, No wheezing Gastro Gastrointestinal: Yes abdominal pain, No nausea or vomiting, Yes diarrhea, No constipation, No blood in stool, No acid reflux, No hemorrhoids, No ulcers, No gallbladder problem, No black,tarry stools Casey Hematologic: No blood thinners, No blood disorders, No bleeding, No anemia, No blood clots Neuro Neurologic: No system reviewed and no additional complaints, except as docu, No as per HPI, No abnormal walking, No abnormal hearing, No abnormal movements, No abnormal speech, No behavioral changes, No burning sensations, No confusion, No seizure-like activity, No unsteadiness, No dizziness, No localized weakness, No frequent falls, No headache(s), No lack of coordination, No loss of vision, No memory loss, No numbness, No other visual disturbances, No radiating pain, No restless legs, No sensory deficit, No fainting, No tingling, No tremor(s), No weakness, No other Exam Const General: no acute distress, well developed, well hydrated Orientation: oriented to person, oriented to place, oriented to time [facility] Head: normocephalic, atraumatic Ears: external ears normal Mouth: moist mucous membranes Eyes Sclera: sclerae normal Pupils: normal by confrontation Neck Neck: no lymphadenopathy noted Neck mass: No Thyroid: thyroid normal, symmetrical Chest Chest palpation & inspection: normal inspection of the chest Breast Palpation: No nipple discharge Resp Effort & Inspection: normal respiratory effort Auscultation: clear to auscultation bilaterally Percussion: percussion normal Cardio Rate: regular rate Rhythm: regular rhythm Heart Sounds: no murmurs GI Palpation: soft, no hepatosplenomegaly, no masses, nontender Rectal Exam: other Other: Rectal exam deferred. Extrem General: normal to inspection, no clubbing, cyanosis or edema Assessment & Plan Problems 1. Personal history of colon cancer Z85.038 2. Abdominal bloating R14.0 Plan I have discussed the above with the patient. I have offered the patient colonoscopy for evaluation. I have explained the risks/benefits of the procedure and described the procedure. I have discussed the risks with the patient, including but not limited to: infection, bleeding, perforation of the GI tract requiring emergency surgery, inability to complete the procedure, injury to any internal organs, complications of anesthesia, etc. - the patient understands and agrees to proceed. I have answered all the patient's questions to the patient's satisfaction and the patient has no further questions. The patient has been given instructions for the colon cleansing preparation. We will be doing random colon biopsies Orders Orders: Colonoscopy 09/20/19 Coding Level of Care Code Off vis,new,level 3 Diagnoses Personal history of colon cancer Z85.038 Abdominal bloating R14.0 09/21/19 1106 <Electronically signed by Sanjeev miller MD> Date _ Sanjeev Stevenson MD I have re-examined the patient. There are no clinical changes since date of exam.
[2019-10-09 08:04] VITALS: BP 93/68; PULSE 90; RESP 18; TEMP 36.8; O2SAT 94; BMI 21.8
[2019-10-09] MEDS: Lactated Ringers 1,000 ML 100 ML IV (08:11)
--- NOTE | 2019-10-09 09:00 | COLBX_PTH ---
PATIENT: JOSE DE JESUS GOLD LOC: EN U#:[id number] AGE/SX: 74/F ROOM: RE10/09/[address]: Dr. Sanjeev Stevenson MD : 1945 BED: DIS: 10/09/2019 SPEC #: [id number] RECD: 10/09/19 11:37 STATUS: ELAYNE REPatricia #: [id number] GABRIELE: 10/09/19 09:[address]: Sanjeev Stevenson DEPT: SURGICAL PATHOLOGY RECD BY: Alexi Francis ENTERED: 10/09/19 13:37 SP TYPE: COLON BX OTHR DR: Dr. Adis Mireles MD Tissues: COLON BIOPSY Procedures: Surgery Specimen Level IV HEADER OPERATION: Colonoscopy (MAC) PRE-OP DIAGNOSIS: History colon CA TISSUE SUBMITTED: Random colon biopsy MICROSCOPIC DIAGNOSIS Colon, random biopsy: No pathologic change. AM:tabby 10/10/19 MICROSCOPIC DESCRIPTION Slides are reviewed. GROSS DESCRIPTION Received in fixative is one container labeled with the patient's name and designated random colon biopsy. The specimen consists of multiple irregular fragments of light verduzco soft tissue that in aggregate measure 1.5 x 0.7 x 0.1 cm. The specimen is totally submitted in one cassette. / SJ:tabby 10/09/19 TC:5 CPT: 11587
[2019-10-09 09:22] VITALS: BP 89/73; BP 96/68; PULSE 75; RESP 16; TEMP 36.9; O2SAT 98
--- NOTE | 2019-10-09 09:24 | OP.COLON_ITS ---
Patient Name: Gracie Johnson Procedure Date: 10/09/2019 8:50 AM Date of : 1945 Age: 74 Procedure: Colonoscopy Indications: High risk colon cancer surveillance: Personal history of colon cancer Providers: Sanjeev Stevenson MD Referring MD: Adis Mireles Medicines: See the Anesthesia note for documentation of the administered medications Patient Profile: This is a 74 year old female. Refer to note in patient chart for documentation of history and physical. Last Colonoscopy: April 2013. Complications: No immediate complications. Procedure: Pre-Anesthesia Assessment: - Prior to the procedure, a History and Physical was performed, and patient medications and allergies were reviewed. The patient's tolerance of previous anesthesia was also reviewed. The risks and benefits of the procedure and the sedation options and risks were discussed with the patient. All questions were answered, and informed consent was obtained. Prior Anticoagulants: The patient has taken no previous anticoagulant or antiplatelet agents. ASA Grade Assessment: II - A patient with mild systemic disease. After reviewing the risks and benefits, the patient was deemed in satisfactory condition to undergo the procedure. After I obtained informed consent, the scope was passed under direct vision. Throughout the procedure, the patient's blood pressure, pulse, and oxygen saturations were monitored continuously. The colonoscope was introduced through the sigmoid colostomy and advanced to the cecum, identified by appendiceal orifice and ileocecal valve. The colonoscopy was performed without difficulty. The patient tolerated the procedure well. The quality of the bowel preparation was good. Scope In: 9:04:12 AM Scope Withdrawal Time 0 hours 5 minutes 40 seconds Scope Out: 9:16:28 AM Total Procedure Duration Time 0 hours 12 minutes 16 seconds Findings: The patient's rectal stump was extremely friable. There is no obvious signs of any malignancy. No biopsies were performed. Photographs were obtained. The colon (entire examined portion) appeared normal. Biopsies for histology were taken with a cold forceps from the entire colon for evaluation of microscopic colitis. No obvious findings to explain her abdominal bloating and distress. The exam was otherwise without abnormality. Impression: - The entire examined colon is normal. Biopsied. - The examination was otherwise normal. Recommendation: - Discharge patient to home. - Resume previous diet. - Continue present medications. - Await pathology results. - Repeat colonoscopy in 5 years for surveillance. - Return to my office in 1 week. Procedure Code(s): --- Professional --- 21919, Colonoscopy through stoma; with biopsy, single or multiple Diagnosis Code(s): --- Professional --- Z85.038, Personal history of other malignant neoplasm of large intestine CPT copyright 2017 [employer]. All rights reserved. The codes documented in this report are preliminary and upon cpc coder review may be revised to meet current compliance requirements. MD Sanjeev Garcia MD 10/09/2019 9:23:44 AM This report has been signed electronically. Number of Addenda: 0 Note Initiated On: 10/09/2019 8:50 AM
[2019-10-09 09:25] VITALS: BP 100/64; BP 96/68; PULSE 75; RESP 16; O2SAT 97
[2019-10-09 09:30] VITALS: BP 101/65; BP 96/68; PULSE 75; RESP 16; O2SAT 96
[2019-10-09 09:35] VITALS: BP 113/91; BP 96/68; PULSE 75; RESP 16; TEMP 36.7; O2SAT 96
[2019-10-09] MEDS: oxyCODONE 5 MG Tablet 10 MG PO (10:07)
[2019-10-09 10:56] VITALS: BP 96/68
== END 2019-10-09 10:57 | disposition home or self-care (01) ==
LOC: EN 07:38 → AC 07:39
PROVIDERS: Family Provider Internal Medicine; PCP Internal Medicine; Referring Provider Internal Medicine; Visit Provider Surgery
PROC: 0DJD8ZZ Inspection of Lower Intestinal Tract, Via Natural or Artificial Opening Endoscopic (ICD-10-PCS; CPT 45378; principal; 2019-10-09 08:55)
DX: Z12.11 Encounter for screening for malignant neoplasm of colon (principal); R14.0 Abdominal distension (gaseous); Z85.038 Personal history of other malignant neoplasm of large intestine; Z85.048 Personal history of other malignant neoplasm of rectum, rectosigmoid junction, and anus; J44.9 Chronic obstructive pulmonary disease, unspecified; E03.9 Hypothyroidism, unspecified; F32.9 Major depressive disorder, single episode, unspecified; F41.9 Anxiety disorder, unspecified; Z78.0 Asymptomatic menopausal state; Z88.6 Allergy status to analgesic agent; Z88.5 Allergy status to narcotic agent; Z88.1 Allergy status to other antibiotic agents; Z88.0 Allergy status to penicillin; Z87.442 Personal history of urinary calculi; Z86.2 Personal history of diseases of the blood and blood-forming organs and certain disorders involving the immune mechanism; Z87.891 Personal history of nicotine dependence; Z86.73 Personal history of transient ischemic attack (TIA), and cerebral infarction without residual deficits
CPT/HCPCS: 44389; 88305; J7120

== ENCOUNTER → 2019-12-31 12:20 | Outpatient (CLI) | payer MEDICARE, OTHER, SELFPAY ==
[2019-12-09 12:52] VITALS: BMI 21.8
[2019-12-31 12:30] VITALS: PULSE 102; PULSE 89; PULSE 92; PULSE 96; PULSE 99; O2SAT 91; O2SAT 92; O2SAT 93; O2SAT 94
--- NOTE | 2020-01-03 10:29 | PCM.PSN.6M ---
PSN 6 Minute Walk Test - 6 Minute Walk Test 6 Minute Walk Test: 6 Minute Walk Test PSN:6-Minute Walk Test Start: 12/31/19 12:51 Freq: Status: Active Protocol: RESP.6MINW Document 12/31/19 12:30 JLA (Rec: 12/31/19 12:55 JLA [id number]) 6 Minute Walk Test Date Performed 12/31/19 Time Performed 12:30 Height 5 ft 1 in Weight: 120 lb Weight in Pounds 120.[address]: Theresa Hernandez Assistive device used: Cane Pre-test Oxygen Delivery Method Room Air Pulse Ox (%) 94 Pulse Rate (60-100 beats/min) 89 Dyspnea Annie Scale (0-10) 0 Exertion Annie Scale (6-20) 6 1st minute Oxygen Delivery Method Room Air Pulse Ox (%) 91 Pulse Rate (60-100 beats/min) 96 2nd minute Oxygen Delivery Method Room Air Pulse Ox (%) 91 Pulse Rate (60-100 beats/min) 102 H 3rd minute Oxygen Delivery Method Room Air Pulse Ox (%) 92 Pulse Rate (60-100 beats/min) 102 H 4th minute Oxygen Delivery Method Room Air Pulse Ox (%) 92 Pulse Rate (60-100 beats/min) 102 H 5th minute Oxygen Delivery Method Room Air Pulse Ox (%) 92 Pulse Rate (60-100 beats/min) 102 H 6th minute Oxygen Delivery Method Room Air Pulse Ox (%) 91 Pulse Rate (60-100 beats/min) 99 Dyspnea Annie Scale (0-10) 0.5 Exertion Annie Scale (6-20) 11 Post-test Oxygen Delivery Method Room Air Pulse Ox (%) 93 Pulse Rate (60-100 beats/min) 92 Full Laps Walked 11 Partial Lap, Number of Tiles Walked 0 Total Distance Walked (ft) 649 - Interpretation Interpretation: The patient ambulated 649 feet over the course of 6 minutes beginning on room air with the use of a cane. Pretesting oxygen saturation was noted to be 94% on room air. With ambulation, the kit oxygen saturation was 91%. There was no significant exertional oxygen desaturation. - Recommendations Recommendations: There is no indication for the use of supplemental oxygen at this time.
== END ==
PROVIDERS: PCP Internal Medicine; Referring Provider Nurse Practitioner Acute Care; Visit Provider Nurse Practitioner Acute Care
DX: R09.02 Hypoxemia (principal); R06.02 Shortness of breath
CPT/HCPCS: 94618; 94762

== ENCOUNTER → 2020-04-08 12:40 | Outpatient (CLI) | payer MEDICARE, OTHER, SELFPAY ==
[2020-04-01 07:33] VITALS: BMI 23.4
--- NOTE | 2020-04-08 12:41 | CT_ITS ---
STUDY: LOW DOSE CT LUNG CANCER SCREENING REASON FOR EXAM: Female, 74 years old. 30 year history of smoking, 1 pack per day, history of rectal cancer RADIATION DOSAGE (If Supplied By Facility): CTDIvol = ( 1.70 ) mGy, DLP = ( 54.46 ) mGycm TECHNIQUE: No contrast was administered. Low dose technique was utilized (average mAS-38 and kVp 120). 1.25 mm axial source images with a slice interval of 1.25-mm were reconstructed in lung windows. 2.5 mm axial source images with a slice interval of 2.5-mm were reconstructed in lung windows. 5.0 mm axial source images with a slice interval of 5.0-mm were reconstructed in soft tissue windows. Nodule measured using lung windows on PACS and/or independent workstation with automated measurement of minimum and maximum diameter. Nodule measurement reported as average diameter rounded to the nearest whole number. Growth is defined as an increase ins size of greater than 1.5 mm. COMPARISON: 05/10/2019 NODULES: Lung windows show mild underlying emphysema. There is a new noncalcified 1.4 x 0.8 cm nodule in the left perihilar region. This was not seen on the previous study. Given the patient''s history of carcinoma, this should be considered a metastasis until proven otherwise. There is no organized infiltrate, suspicious groundglass opacifications, pleural or pericardial effusions. No other suspicious noncalcified mass or nodule noted. Bony structures show degenerative change. Limited cuts through the upper abdomen did not show a suspicious abnormality. CT/Low Dose CT Lung Screening IMPRESSION: New 1.4 x 0.8 cm noncalcified nodule in the left perihilar region. This should be considered a metastasis until proven otherwise. Further imaging recommended with PET/CT or biopsy ACR lung screening category: 4A IMPORTANT NOTES FOR USE: ACR Lung-RADS Version 1.0 Assessment Categories Release Date: March 03, 2014 Category: Coded 0-4 bases on nodule(s) with highest degree of suspicion. Negative screen is defined as categories 1 and 2; a positive screen is defined as categories 3 and 4. Category 3 and 4A nodules that are unchanged on interval CT should be coded as category 2, and individuals returned to screening in 12 months. Category 4X: Category 3 or 4 nodules with additional imaging findings that increase the suspicion of lung cancer, such as spiculation, GGN that doubles in size in 1 year, enlarged lymph notes, etc. Category Modifiers: S (significant finding unrelated to lung cancer) and C (prior history of treated lung cancer) may be added to the 0-4 Lung-RADS Electronically Signed: Yasmany Huff MD at 13:17 EDT , Service support ,
== END ==
PROVIDERS: PCP Internal Medicine; Referring Provider Internal Medicine Critical Care Medicine; Visit Provider Internal Medicine Critical Care Medicine
DX: Z12.2 Encounter for screening for malignant neoplasm of respiratory organs (principal); F17.211 Nicotine dependence, cigarettes, in remission
CPT/HCPCS: G0297

== ENCOUNTER → 2020-04-17 08:20 | Outpatient (CLI) | payer MEDICARE, OTHER, SELFPAY ==
[2020-04-09 13:20] VITALS: BMI 23.4
[2020-04-17] VITALS (12 sets, daily range): BP systolic 106–157; BP diastolic 56–91; PULSE 66–79; RESP 15–22; TEMP 37.1; O2SAT 92–99; BMI 23.4
--- NOTE | 2020-04-17 | IMM_PTH ---
PATIENT: JOSE DE JESUS GOLD LOC: CT U#:[id number] AGE/SX: 80/F ROOM: RE04/17/[address]: DANAE Degroot : 1945 BED: DIS: SPEC #: [id number] RECD: 04/20/20 12:24 STATUS: ELAYNE REQ #: [id number] GABRIELE: 04/17/20 00:[address]: Theresa Hernandez NP DEPT: IMMUNOHISTOCHEMISTRY RECD BY: Edelmira Rodrigues ENTERED: 04/20/20 12:25 SP TYPE: IMMUNO OTHR DR: Dr. Adis Mireles MD Tissues: Lung, NOS Procedures: RCC (add) NAPSIN A (add) CK20 (add) CK5-6 (add) CK7 (add) CK8 (add) HEP PAR (add) RI (add) TTF1 (add) P40 (add) ER (initial) PHYSICIAN & INSTITUTION [place] [id number] SPECIMEN INFORMATION: Tissue Source: Left lung mass Clinical Info: Left lung mass Specimen Number: [id number] CPT code: 67100, 98457 x10 METHODOLOGY: Deparaffinized sections of prefer/formalin-fixed tissue or PAP/DQ stained slides are incubated with monoclonal/polyclonal antibodies/oligonucleotide probes. Localization is made via biotin free immunoperoxidase method. Appropriate controls are performed and reacted as expected. Results on target cell population are indicated in the following table: RESULTS: ANTIBODY / CLONE RESULT ER (6F11) positive, focal RI (1E2) negative CK7 (OV-TL12/30) positive CK8 (15bqhvA36) positive CK20 (KS20.8) positive, rare cells TTF-1 (8G7G3/1) positive Napsin A (Rabbit Polyclonal) positive HepPar (OCh1E5) negative RCC (PN-15) negative CK5-6 (D5 & 1684) negative P40 (BC28) negative These tests were developed and their performance characteristics determined by [facility]. They may not have been cleared or approved by the U.S. Food and Drug Administration. The FDA has determined that such clearance or approval is not necessary. The above immunohistochemical/dualISH markers are ordered and reviewed by the Pathologist. INTERPRETATION: Left lung, CT-guided biopsy: Consistent with non-small cell carcinoma, favor adenocarcinoma, bronchioalveolar type, nonmucinous. SJ:tabby 04/21/20 Case has been reviewed in consultation with Dr. Marie who concurs with the above diagnosis. IDC:AM
--- NOTE | 2020-04-17 | ASPIGT_PTH ---
PATIENT: JOSE DE JESUS GOLD LOC: CT U#:[id number] AGE/SX: 80/F ROOM: RE04/17/[address]: DANAE Degroot : 1945 BED: DIS: SPEC #: [id number] RECD: 04/17/20 10:13 STATUS: ELAYNE REPatricia #: [id number] GABRIELE: 04/17/20 00:[address]: Theresa Hernandez NP DEPT: SURGICAL PATHOLOGY RECD BY: Joe Medina ENTERED: 04/17/20 10:14 SP TYPE: ASP RAD OTHR DR: Dr. Adis Mireles MD Tissues: Lung, NOS Procedures: FNA Specimen Adequacy Special Stain Group II Surgery Specimen Level IV Imprint (control) HEADER OPERATION: CT-guided left lung biopsy PRE-OP DIAGNOSIS: Left lung mass TISSUE SUBMITTED: Left lung mass MICROSCOPIC DIAGNOSIS Left lung mass, CT-guided core biopsy: Consistent with non-small cell carcinoma, favor adenocarcinoma, bronichioloalveolar type, non mucinous. See comment. PHU:tabby 04/20/20 COMMENT The specimen is evaluated at the time of biopsy by Dr. Núñez. Immediate Evaluation = Atypical cells suspicious for malignancy noted. Immunohistochemistry ([id number]) supports the above diagnosis. Molecular studies on the tumor can be performed, if clinically indicated. Please notify the laboratory, if they are needed.. This case has been reviewed in consultation with Dr. Marie who concurs with the above diagnosis. MICROSCOPIC DESCRIPTION Slides are reviewed. GROSS DESCRIPTION Received in fixative is one container labeled with the patient's name and designated lung mass, CT-guided core biopsy. The specimen consists of multiple irregular fragments of verduzco soft tissue that in aggregate measure 0.5 x 0.1 x <0.1 cm. The specimen is totally submitted in one cassette. Two touch imprints are prepared at the time of core biopsy. / PHU:tabby 04/17/20 TC:0 CPT: 60848, 98150
--- NOTE | 2020-04-17 08:22 | CT_ITS ---
PROCEDURE: CT GUIDED CORE NEEDLE BIOPSY OF A left upper lobe LUNG LESION INDICATION: Female, 74 years old. LEFT UPPER LOBE MASS PHYSICIAN: Dr. Tasneem Verdugo CONSENT: Written informed consent was obtained having explained the risks, benefits and alternatives in detail with the patient who accepted the risks and agreed to proceed. Laboratory review and clinical assessment was performed. CONSCIOUS SEDATION PROTOCOL: The Drugs used were: 2 mg Versed, IV., and 50 mcg Fentanyl, IV. The sedation time was: 12 minutes. Conscious sedation was started at 9:45 AM and terminated at 9:57 AM The conscious sedation protocol was independently monitored. RADIATION DOSAGE (If Supplied By Facility): CTDIvol = ( 14.6 ) mGy, DLP = ( 342.49 ) mGycm Individualized dose optimization techniques were used for this CT. TECHNIQUE: The patient was placed in the supine position. A noncontrast CT was performed to localize the lesion in the left upper lobe . The skin surface was prepped and draped in a sterile fashion. 1% lidocaine was used for local anesthesia. Using CT guidance, a 20-gauge coaxial biopsy device was advanced to the periphery of the lesion. A total of 3 core specimens were obtained. The specimens were placed in a formalin solution. A post procedure CT demonstrated no adverse sequelae or pneumothorax. The patient tolerated the procedure well without adverse event. A negative biopsy does not exclude malignancy. Further imaging or clinical followup based on patient condition and degree of clinical suspicion for malignancy. Suggest rebiopsy, if biopsy results do not match with clinical scenario. CT/Biopsy/Inj or Needle Placement IMPRESSION: 1. CT directed core needle biopsy of the left upper lobe nodule using CT image guidance with image documentation as described. Pathology results are pending. 2. Conscious Sedation protocol utilized with independent monitoring. Electronically Signed: Chriss Boateng, at 10:36 EDT , Service support ,
[2020-04-17 08:33] LABS: Platelet Count 227 K/mm3 (150-450)
[2020-04-17 08:54] LABS: Prothrombin Time (Protime)PT. 12.6 SECONDS (11.7-14.9)
[2020-04-17 08:55] LABS: Partial Thromboplast Time 29.8 Seconds (24.1-36.2)
[2020-04-17] MEDS: Midazolam 2 MG/2 ML Syringe IV (09:45)
[2020-04-17] MEDS: fentaNYL 100 MCG/2 ML Ampul IV (09:46)
--- NOTE | 2020-04-17 10:00 | RAD_ITS ---
STUDY: X-RAY CHEST REASON FOR EXAM: Female, [address] BX - LT SIDE. TECHNIQUE: AP inspiration and expiration views. COMPARISON: Comparison is made with prior study dated May 08, 2019. FINDINGS: The patient is status post percutaneous biopsy of the left upper lobe nodule. No evidence of pneumothorax. There is evidence of a increased markings in the peripheral aspect of the nodule suggestive of a possible focal bleeding secondary to the biopsy. RAD/Chest Insp/Exp 2 View IMPRESSION: Status post left upper lobe percutaneous biopsy. No evidence of pneumothorax. Electronically Signed: Chriss Boateng, at 10:37 EDT , Service support ,
--- NOTE | 2020-04-17 12:00 | RAD_ITS ---
STUDY: X-RAY CHEST REASON FOR EXAM: Female, 74 years old. 2 HRS LEFT SIDE POST LUNG BX TECHNIQUE: AP inspiration and expiration views. COMPARISON: Comparison is made with prior examination done earlier today. FINDINGS: There is no evidence of pneumothorax on the two-hour delayed post left lung biopsy radiograph. The density surrounding the biopsy site has decreased in density. RAD/Chest Insp/Exp 2 View IMPRESSION: No evidence of pneumothorax on the delayed post left lung biopsy radiograph. Electronically Signed: Chriss Boateng, at 15:15 EDT , Service support ,
== END ==
PROVIDERS: PCP Internal Medicine; Referring Provider Nurse Practitioner Acute Care; Visit Provider Nurse Practitioner Acute Care
DX: R91.8 Other nonspecific abnormal finding of lung field (principal); N17.9 Acute kidney failure, unspecified; R09.82 Postnasal drip; Z79.899 Other long term (current) drug therapy; Z87.891 Personal history of nicotine dependence
CPT/HCPCS: 32405; 36415; 71046; 77012; 85049; 85610; 85730; 88172; 88305; 88313; 88341; 88342; 99156; J7040

== ENCOUNTER → 2020-04-30 17:34 | Outpatient (CLI) | payer MEDICARE, OTHER, SELFPAY ==
[2020-04-27 15:29] VITALS: BMI 24.0
--- NOTE | 2020-04-30 17:35 | MRI_ITS ---
STUDY: MRI BRAIN WITH AND WITHOUT CONTRAST REASON FOR EXAM: Female, 74 years old. Lung CA staging TECHNIQUE: Standardized multiplanar fat and water weighted pulse sequences were obtained. IV Yes YES was administered for the contrast portion of the examination. COMPARISON: 03 February 2018 FINDINGS: There are no intracranial metastases. There is mild chronic white matter ischemic change. Remainder of the structures are normal. MRI/Brain W/WO Contrast IMPRESSION: No intracranial metastases. Electronically Signed: Taty Nunez, at 19:27 EDT Tel , Service support ,
== END ==
PROVIDERS: PCP Internal Medicine; Referring Provider Internal Medicine Medical Oncology; Visit Provider Internal Medicine Medical Oncology
DX: C34.12 Malignant neoplasm of upper lobe, left bronchus or lung (principal)
CPT/HCPCS: 70553; A9575

== ENCOUNTER → 2020-05-07 13:43 | Outpatient (CLI) | payer MEDICARE, OTHER, SELFPAY ==
[2020-04-27 15:29] VITALS: BMI 24.0
--- NOTE | 2020-05-07 13:43 | ECHODONC_ITS ---
Reason For Study: Pre Chemo Procedure This was a 2D Doppler, Color Flow transthoracic echocardiogram. Myocardial strain analysis was performed in this exam to aid in the assessment of cardiac function. Exam performed in department. Left Ventricle Normal LV size. Left ventricular systolic function is normal. The estimated ejection fraction is 60 %. Stage 1 diastolic dysfunction. No regional wall motion abnormalities noted. Right Ventricle Normal RV size. Normal systolic function. Atria Normal left atrium. Normal right atrium. Mitral Valve Normal mitral valve. Tricuspid Valve Normal tricuspid valve. Mild (1+) tricuspid valve insufficiency. Pulmonary artery systolic pressure is 26 mmHg. Aortic Valve Normal aortic valve. Trisinus/trileaflet aortic valve. Pulmonic Valve Normal pulmonic valve. Great Vessels Normal aortic root. The pulmonary artery is normal size. Normal inferior vena cava. Pericardium/Pleural No pericardial effusion. MMode/2D Measurements & Calculations LVIDd: 3.7 cm IVSd: 0.95 cm Ao root diam: 2.6 cm LVIDs: 2.3 cm LVPWd: 0.86 cm RVDd: 2.8 cm FS: 36.2 % LAV(MOD-bp): 22.9 ml LVAd ap4: 13.7 cm2 SV(MOD-sp4): 17.8 ml LAV(MOD-bp) Indexed: 14.7 ml/m2 EDV(MOD-sp4): 26.4 ml LAV(MOD-sp2): 26.5 ml EDV(sp4-el): 27.2 ml LAV(MOD-sp4): 18.8 ml LVAs ap4: 6.9 cm2 ESV(MOD-sp4): 8.6 ml ESV(sp4-el): 8.3 ml EF(MOD-sp4): 67.5 % EF(sp4-el): 69.7 % SV(sp4-el): 19.0 ml LA A4 area: 10.2 cm2 LA dimension(2D): 3.4 cm RA A4 area: 7.4 cm2 Doppler Measurements & Calculations MV E max alon: 41.8 cm/sec Lat Peak E' Alon: 6.5 cm/sec Med Peak E' Alon: 5.3 cm/sec MV A max alon: 60.1 cm/sec E/E' lat: 6.4 E/E' med: 7.9 MV E/A: 0.70 Ao V2 max: 92.9 cm/sec LV V1 max: 88.4 cm/sec PA V2 max: 73.3 cm/sec Ao max P.4 mmHg LV V1 max P.1 mmHg Ao V2 mean: 65.7 cm/sec Ao mean P.9 mmHg Ao V2 VTI: 18.0 cm TR max alon: 240.2 cm/sec TR max P.1 mmHg Interpretation Summary Normal LV size. Left ventricular systolic function is normal. The estimated ejection fraction is 60 %. Stage 1 diastolic dysfunction. The global longitudinal strain is normal. The global longitudinal strain = -19. % (normal). Ordering Physician: Jeff Ferrell Referring Physician: Adis Mireles Performed By: Jackelyn Carlos, KAMALA, RVT
== END ==
PROVIDERS: PCP Internal Medicine; Referring Provider Internal Medicine Medical Oncology; Visit Provider Internal Medicine Medical Oncology
DX: Z01.818 Encounter for other preprocedural examination (principal); C34.12 Malignant neoplasm of upper lobe, left bronchus or lung
CPT/HCPCS: 93306; 93356

== ENCOUNTER → 2020-05-08 11:21 | Outpatient (CLI) | payer MEDICARE, OTHER, SELFPAY ==
[2020-04-27 15:29] VITALS: BMI 24.0
--- NOTE | 2020-05-09 08:28 | PFT ---
INTRODUCTION: The patient is a 74-year-old female that presents for pulmonary function studies prior to initiating chemotherapy. Respiratory therapy reports good patient effort. Bronchodilators were used during testing. INTERPRETATION: Forced expiration spirometry demonstrates the presence of a mild large airways obstructive ventilatory defect. There was no significant response to aerosolized bronchodilators. Spirograms are of good quality and do not plateau indicating slow emptying of the lungs. Body plethysmography was performed and reveals lung volumes to be within normal limits. Diffusing capacity by single breath CO is reduced at 51% of predicted. IMPRESSION: Irreversible mild large airways obstructive ventilatory defect with disproportionate reduction in diffusing capacity.
== END ==
PROVIDERS: PCP Internal Medicine; Referring Provider Internal Medicine Medical Oncology; Visit Provider Internal Medicine Medical Oncology
DX: Z01.818 Encounter for other preprocedural examination (principal); C34.12 Malignant neoplasm of upper lobe, left bronchus or lung
CPT/HCPCS: 94060; 94726; 94729

== ENCOUNTER → 2020-06-01 13:21 | Outpatient (CLI) | payer MEDICARE, OTHER, SELFPAY ==
[2020-05-11 13:26] VITALS: BMI 23.8
--- NOTE | 2020-06-01 13:24 | STE_ITS ---
Version 2 Reason For Study: dyspnea with exertion Stress Results Protocol: Dobtuamine Stress Echo Maximum Predicted HR: 146 bpm Target HR: 124 bpm % Maximum Predicted HR: 90 % DurationHeart Rate Stage (mm:ss) (bpm) BP Dose Comment baseline 67 123/79 no chest pain stage 1 3:00 65 135/7110.00no chest pain stage 2 3:00 100 108/4820.00no chest pain stage 3 3:00 115 143/7930.00no chest pain stage 4 2:16 131 156/8040.00no chest pain recovery 98 122/73 no chest pain Stress Duration: 11:16 mm:ss Maximum Stress HR: 131 bpm Baseline Echocardiogram Findings Stress Echo Wall motion Data Resting WM Intermediate WM Stress WM Interpretation Summary Dobutamine stress echocardiogram 74-year-old lady with a history of lung cancer. Resting EKG demonstrates normal sinus rhythm with a rate of 65 bpm normal intervals are noted. Dobutamine was infused starting at 10 mcg/kg/min infusing to a maximum of 40 mcg/kg/min. The maximum heart rate attained was 131 bpm which was 90% of max impacted heart rate. The maximum workload was 1 metabolic equivalent. The patient maintained sinus rhythm throughout the recording. At rest there were no ST or T wave changes noted to suggest ischemia at peak infusion no ST or T wave changes were noted to suggest ischemia. The peak blood pressure was 156/80 mmHg. Dobutamine echocardiogram. Resting echocardiogram demonstrated preserved ejection fraction of approximately 55%. During dobutamine infusion at low dose and peak dose there were no wall motion abnormalities noted to suggest ischemia. There was an increase in left ventricular ejection fraction to approximately 65%. No ischemia was noted. Conclusion: Normal dobutamine stress echocardiogram with no evidence of ischemia. Ordering Physician: nazia bautista Referring Physician: Adis Mireles M.D. Performed By: Jackelyn Carlos, RDCS, RVT
== END ==
PROVIDERS: PCP Internal Medicine
DX: R06.09 Other forms of dyspnea (principal)
CPT/HCPCS: 93017; 93350; J7040; A4216

== ENCOUNTER 2020-08-02 03:11 | Emergency (ER) | payer MEDICARE, OTHER, SELFPAY ==
[2020-07-20 15:28] VITALS: BMI 22.6
[2020-08-02 03:11] VITALS: BP 134/84; PULSE 102; RESP 18; TEMP 36.8; O2SAT 95; BMI 22.6
--- NOTE | 2020-08-02 03:29 | CT_ITS ---
STUDY: CT ABDOMEN AND PELVIS WITH CONTRAST REASON FOR EXAM: Female, 74 years old. UPPER ABDOMEN PAIN X 3 DAYS,NO COLOSTOMY OUTPUT -- ELEVATED WBC,TREATED FOR ILEUS RECENTLY ,PT REFUSED TO DRINKMORE THAN 200MLOF ORAL CONTRAST -- HX:ASTHMA,COPD,EMPHYSEMA,HYPOTHYROID,KIDNEY STONES,LUNG CANCER,RECTAL CANCER -- SURGERY: APPENDECTOMY,,HYSTERECTOMY,CHOLECYSTECTOMY,LT PNEUMOECTOMY,BOWEL RESECTION WITH COLOSTOMY RADIATION DOSAGE (If Supplied By Facility): CTDIvol = ( 7.42 ) mGy, DLP = ( 522.04 ) mGycm TECHNIQUE: Transaxial images were obtained from the dome of the diaphragm to the symphysis pubis with oral contrast. Oral and amp; IV Gastrografin and amp; 100mL Isovue-370 was administered. Sagittal and coronal images were reconstructed. Individualized dose optimization techniques were used for this CT. COMPARISON: PET/CT scan 05/05/2020. CT scan abdomen and pelvis 08/27/2019. FINDINGS: There is minimal atelectasis or fibrosis in the visualized lung bases. The visualized portions of the heart are within normal limits. Normal liver. There is nonvisualization of the gallbladder, consistent with a prior cholecystectomy. Normal spleen. Normal pancreas. There are small bilateral adrenal nodules with attenuation characteristics indeterminate for benign adenomas. There are 7 nonobstructive right renal calculi, ranging up to 9 mm.. There are small right renal cyst. There is no demonstrated right ureteral calculus or hydronephrosis. There are 3 nonobstructive left renal calculi, ranging up to 4.5 mm. There are small left renal cysts. There is no demonstrated left renal calculus or hydronephrosis. There is a small hiatal hernia. There is dilatation of small bowel loops with diameters ranging up to 4.5 cm. The distal ileum is decompressed and findings are consistent with a small bowel obstruction. Transition point seen in the right posterior para midline pelvis on axial images 72-66 and on sagittal images 72-69. This is probably due to adhesions. There is a loop sigmoid colostomy in the left lower quadrant of the abdomen. There is mural thickening of the rectum, consistent with given history of rectal carcinoma. There is infiltration of presacral fat, which may be related to neoplasm or radiation therapy. Similar appearance is also present on the previous studies. There are postsurgical changes in the region of the cecum. The appendix is surgically absent. There is diffuse atherosclerotic calcification of the abdominal aorta, without a demonstrated aneurysm. Normal inferior vena cava. Normal retroperitoneum. Normal urinary bladder. There is absence of the uterus consistent with a prior hysterectomy. Normal abdominal wall. There are multilevel degenerative changes of the visualized lumbar spine. CT/Abdomen/Pelvis WITH Contrast IMPRESSION: Small bowel obstruction at the level of distal ileum, probably due to adhesions. Transition point is seen in the posterior right para midline pelvis. Previous cholecystectomy, hysterectomy, appendectomy, and loop sigmoid colostomy. Mural thickening of the rectum, consistent with known neoplasm. Persistent presacral fat infiltration may represent residual from neoplastic infiltration and/or radiation therapy. This is also unchanged in appearance. Nonobstructive renal calculi bilaterally. No demonstration of ureteral calculus hydronephrosis. N.B. : The above information has been verbally conveyed by Titus Beltran MD to Dr. Cholo Duncan MD, on 08/02/2020 06:14:24 (ET). Electronically Signed: Titus Beltran MD at 6:19 EDT , Service support ,
--- NOTE | 2020-08-02 03:31 | ED.DCSUM_ITS ---
History of Present Illness Chief Complaint: Abd Pain Informant: Patient, Family - Abdominal Pain/Flank Pain Onset: Days - 3 Context: Gradual Onset Timing: Continuous Quality: Aching, Dull Location: Epigastric Current Severity: Moderate Maximum Severity: Moderate Worsened by: Nothing Relieved by: Nothing - Nausea/Vomiting/Emesis GI Symptom: Nausea. Negative for: Vomiting - Diarrhea/Melena/Hematochezia GI Symptom: - - No colostomy stool output in the past day. Passing some flatus into it.. Negative for: Diarrhea, Melena, Hematochezia Associated Symptoms: Negative for: Dysuria, Frequency, Hematuria, Urgency Narrative: Patient has a history of rectal cancer, she had a partial colectomy and has had a colostomy as a result for about 10 years. Recently she was diagnosed with lung cancer, she had a left upper lobectomy at [facility] in June and developed a postoperative ileus and was hospitalized for about 3 weeks. She was discharged around 4 weeks ago on an 18-day course of azithromycin and Reglan. She finished those around 3 days ago, and subsequently started having the same pain that she was having in the hospital when she had the ileus, and she has had no output from her colostomy in the past 24 hours with worsening pain. - Past Medical History (1) Kidney stones Status: Chronic (2) Adenocarcinoma of lung Status: Acute (3) Anxiety Status: Chronic (4) COPD (chronic obstructive pulmonary disease) Status: Chronic (5) Depression Status: Chronic (6) History of rectal cancer Status: Chronic (7) Hypothyroidism Status: Chronic (8) TIA (transient ischemic attack) Status: Resolved Past Medical History - Allergies and Home Meds Allergies/Adverse Reactions: Allergies ciprofloxacin [From Cipro] Allergy (Verified 08/02/20 03:19) Rash ciprofloxacin HCl [From Cipro] Allergy (Verified 08/02/20 03:19) Rash Penicillins Allergy (Verified 08/02/20 03:19) Hives codeine Adverse Reaction (Verified 08/02/20 03:19) makes her feel weird makes her feel weird NSAIDS (Non-Steroidal Anti-Inflamma Adverse Reaction (Verified 08/02/20 03:19) kidney damage r/t long-term usage advised not to use kidney damage r/t long-term usage advised not to use MAGNESIUM CITRATE Adverse Reaction (Uncoded 05/11/20 13:26) Nausea Primary Care Physician: Adis Mireles MD [Primary Care Provider] - Surgical History: cholecystectomy, tonsillectomy, - - partial colectomy/colostomy, left upper lobectomy Smoking Status: Former smoker - Family History Maternal Family History: Family History (Last Reviewed 07/20/20 @ 15:23 by Skye Davis) Father Heart disease Mother Heart disease Sister Heart disease Diabetes Family History: Reports: COPD, Heart Disease Sibling Family History: Family History (Last Reviewed 07/20/20 @ 15:23 by Skye Davis) Father Heart disease Mother Heart disease Sister Heart disease Diabetes Family History: Reports: Diabetes Paternal Family History: Family History (Last Reviewed 07/20/20 @ 15:23 by Skye Davis) Father Heart disease Mother Heart disease Sister Heart disease Diabetes Family History: Reports: Heart Disease Review of Systems General: Reports: Malaise. Denies: Chills, Fever, Sweats Eyes: Denies: Visual changes - bilaterally, Diplopia ENT: Denies: Rhinorrhea, Sore throat Cardiovascular: Denies: Chest pain, Palpitations Respiratory: Denies: Dyspnea, Cough, Dyspnea on exertion Gastrointestinal: Reports: Abdominal pain, Nausea, Constipation, - - see HPI. Denies: Vomiting, Diarrhea, Melena, Hematochezia Genitourinary: Denies: Dysuria, Hematuria, Frequency Musculoskeletal: Denies: Neck pain, Back pain, Swelling, Extremity Pain Skin: Denies: Rash, Wounds Neurological: Denies: Headache, Weakness, Numbness Physical Exam Vital Signs/Narrative: Vital Signs Temp Pulse Resp BP Pulse Ox 08/02/20 03:11 98.2 F 102 H 18 134/84 H 95 Inital Vital Signs reviewed: Yes General: Well nourished, Well developed, No Acute Distress Head: Normocephalic, Atraumatic Eyes: Perrl, EOMI ENT: Moist mucous membranes, No rhinorrhea Neck: Supple, Nontender Cardiovascular: Regular rate, Regular rhythm, No murmurs Respiratory: No distress, CTA bilaterally, Chest nontender Abdomen: Soft, Tender - epigstric; otherwise, NT, Hyperactive bowel sounds, - - Mildly distended. Colostomy site is benign and intact, there is no stool in the bag.. Negative for: Guarding, Rebound tenderness Back: Nontender, Normal Inspection. Negative for: CVA tenderness Extremities: Nontender, No edema Skin: Normal color, No rash, No Trauma Neurological: Alert, Oriented x3, Cranial nerves II-XII grossly intact, Normal Strength, Normal Sensation Psychological: Normal affect, Normal Mood Diagnostic/Tx/Re-eval Impressions Abdomen/Pelvis CT 08/02/20 03:29 IMPRESSION: Small bowel obstruction at the level of distal ileum, probably due to adhesions. Transition point is seen in the posterior right para midline pelvis. Previous cholecystectomy, hysterectomy, appendectomy, and loop sigmoid colostomy. Mural thickening of the rectum, consistent with known neoplasm. Persistent presacral fat infiltration may represent residual from neoplastic infiltration and/or radiation therapy. This is also unchanged in appearance. Nonobstructive renal calculi bilaterally. No demonstration of ureteral calculus hydronephrosis. N.B. : The above information has been verbally conveyed by Titus Beltran MD to Dr. Cholo Duncan MD, on 08/02/2020 06:14:24 (ET). Electronically Signed: Titus Beltran MD at 6:19 EDT , Service support , ADDENDUM: 08/02/20 0626 IMPRESSION: Small bowel obstruction at the level of distal ileum, probably due to adhesions. Transition point is seen in the posterior right para midline pelvis. Previous cholecystectomy, hysterectomy, appendectomy, and loop sigmoid colostomy. Mural thickening of the rectum, consistent with known neoplasm. Persistent presacral fat infiltration may represent residual from neoplastic infiltration and/or radiation therapy. This is also unchanged in appearance. Nonobstructive renal calculi bilaterally. No demonstration of ureteral calculus hydronephrosis. N.B. : The above information has been verbally conveyed by Titus Beltran MD to Dr. Cholo Duncan MD, on 08/02/2020 06:14:24 (ET). Electronically Signed: Titus Beltran MD at 6:19 EDT , Service support , 08/02/20 03:29 Abdomen/Pelvis WITH Contrast [CT] Stat Laboratory Results 08/02/20 08/02/20 08/02/20 03:20 03:20 03:45 WBC 12.0 H RBC 4.51 Hgb 13.2 Hct 40.9 MCV 90.7 MCH 29.3 MCHC 32.3 RDW Std Deviation 43.8 RDW Coeff of Osmar 13.2 Plt Count 278 MPV 9.4 Immature Gran % (Auto) 0.300 Neut % (Auto) 63.0 Lymph % (Auto) 27.3 [place] % (Auto) 5.9 Eos % (Auto) 3.3 Baso % (Auto) 0.2 Absolute Neuts (auto) 7.5 Absolute Lymphs (auto) 3.26 Nucleated RBC % 0 Sodium 139 Potassium 3.1 L Chloride 109 H Carbon Dioxide 20.0 L Anion Gap 10 BUN 11 Creatinine 1.23 H Estim Creat Clear Calc 30.28 Est GFR (MDRD) Af Amer 55 L Est GFR (MDRD) Non-Af 45 L BUN/Creatinine Ratio 8.9 L Glucose 109 H Calcium 9.4 Total Bilirubin 0.30 AST 19 ALT 22 Alkaline Phosphatase 124 H Total Protein 8.0 Albumin 3.6 Globulin 4.4 H Albumin/Globulin Ratio 0.8 L Lipase 133 Urine Color Yellow Urine Clarity Clear Urine pH 6.0 Ur Specific [place] 1.010 Urine Protein 15 H Urine Glucose (UA) Normal Urine Ketones Negative Urine Occult Blood Negative Urine Nitrite Negative Urine Bilirubin Negative Urine Urobilinogen Normal Ur Leukocyte Esterase 100 H Urine RBC 0 SEEN Urine WBC 10-25 SEEN Ur Squamous Epith Cells 0-5 SEEN Urine Bacteria 0 SEEN Urine Mucus 0 SEEN - Medical Decision Making Patient feeling better after IV fluids, Reglan, morphine although she was still nauseated, so she was then given Zofran which helped. No more vomiting, she has had none in the ER. CT abdomen pelvis was obtained with oral and IV contrast, and is consistent with a small bowel obstruction with a transition point in the posterior pelvis. Daughter states that when she was at [facility], they did several scans and told her specifically there is no evidence of an obstruction at that time. They prefer not to go back down there given the distance, and follow with Dr. Stevenson here with surgery and would prefer to stay here if possible given that she needs to be admitted. Discussed with Dr. Stevenson, he recommends holding off on NG, and admitting her medically as she is unlikely to require surgery for this at this time. ED Disposition - Plan for ED Patient: Disposition: Acute Care [facility] Diagnosis: Small bowel obstruction Referrals: Adis Mireles MD [Primary Care Provider] -
[2020-08-02] MEDS: Morphine 4 MG/ML Syringe IV ×2 (03:36→08:13)
[2020-08-02 03:37] VITALS: BP 122/77; PULSE 86; RESP 16; O2SAT 94
[2020-08-02] MEDS: Metoclopramide 10 MG/2 ML Vial 5 MG IV (03:37)
[2020-08-02 03:38] LABS: Absolute Lymphocyte Count 3.26 X10^3/uL (0.83-4.51); Absolute Neutrophil Count 7.5 X10^3/uL (2.0-7.7); Basophil# 0.02 X10^3/uL; Basophil% 0.2 % (0-1); Eosinophil# 0.39 X10^3/uL; Eosinophils% 3.3 % (0-5); Hematocrit 40.9 % (37-47); Hemoglobin 13.2 g/dL (12.0-15.0); Lymphocyte # 3.26 X10^3/ul (4.0); Lymphocyte % 27.3 % (19-41); Mean Corp Hgb Conc 32.3 g/dL (32-36); Mean Corpuscular Hgb 29.3 pg (27.0-32.0); Mean Corpuscular Volume 90.7 fL (81-99); Mean Platelet Vol. 9.4 fl (6.2-12.0); Monocyte# 0.71 X10^3/uL; Monocyte% 5.9 % (0-10); NRBC Flagged by Analyzer 0 % (0-5); Neutrophil # 7.53 X10^3/uL (2.7-7.7); Platelet Count 278 K/mm3 (150-450); RBC Distribution Width CV 13.2 % (11.6-14.6); RBC Distribution Width SD 43.8 fl (35.1-43.9); Red Blood Count 4.51 M/mm3 (4.2-5.4)
[2020-08-02] MEDS: 0.9% Normal Saline 1,000 ML 250 ML IV ×2 (03:38→08:57)
[2020-08-02 03:52] LABS: Bacteria 0 SEEN /hpf (None Seen); Mucous, Urine 0 SEEN /hpf (<or=2+); Red Blood Cells-Urine 0 SEEN /hpf (0-5)
[2020-08-02 03:53] LABS: ALB/GLOB Ratio 0.8 RATIO (0.9-2.4); AST(SGOT) 19 U/L (15-37); Alanine Aminotransfer ALT/SGPT 22 U/L (13-56); Albumin, Serum 3.6 g/dL (3.2-5.0); Alkaline Phosphatase 124 U/L (45-117); Anion Gap 10 (5-15); BUN 11 mg/dL (7-18); BUN/Creat Ratio 8.9 RATIO (10-20); Calcium,Total 9.4 mg/dL (8.5-10.1); Chloride 109 mmol/L (98-107); Creatinine, Serum 1.23 mg/dL (0.55-1.02); EST Glomerular Filtration Rate 45 mL/min (>60); Est Glom Filt Rate - Afr Amer 55 mL/min (>60); Estimated Creatinine Clearance 30.28 ml/min; Globulin 4.4 g/dL (2.2-4.2); Glucose 109 mg/dL (74-106); Lipase 133 U/L (73-393); Potassium 3.1 mmol/L (3.5-5.1); Sodium Level 139 mmol/L (136-145)
[2020-08-02 03:58] LABS: Color, Urine Yellow (Yellow); Glucose, Dipstick Normal (Normal); Ketone-Dipstick Negative (Negative); Leukocyte Esterase-Dipstick 100 /ul (Negative); Nitrite-Dipstick Negative (Negative); Occult Blood-Urine Negative /ul (Negative); Protein-Dipstick 15 mg/dl (Negative); Urine Bilirubin Dipstick Negative (Negative); Urine Clarity Clear (Clear); Urine Urobilinogen Normal (Normal)
[2020-08-02 04:04] LABS: Squamous Epithelial Cells - UA 0-5 SEEN /hpf (5-10); White Blood Cells 10-25 SEEN /hpf (0-5)
[2020-08-02] MEDS: Ondansetron 4 MG/2 ML Vial IV (05:12)
[2020-08-02 06:14] VITALS: BP 117/70; PULSE 82; RESP 16; O2SAT 94
--- NOTE | 2020-08-02 06:36 | NURSING ---
123 kotsonis pneumonia, hypoxemia
--- NOTE | 2020-08-02 07:08 | NURSING ---
MED SURG JOSE[facility] S[facility]
--- NOTE | 2020-08-02 07:49 | NURSING ---
[id number] CALLED [facility] [id number] FACESHEET FAXED
--- NOTE | 2020-08-02 08:37 | NURSING ---
CALLED PHYSICANS FOR TRANSPORT TO [facility] ETA IS 30 MIN
--- NOTE | 2020-08-02 08:49 | NURSING ---
Report given to Miya RAMOS at [facility]
== END 2020-08-02 09:08 | disposition short-term general hospital (02) ==
LOC: ED 06:40 → MS3 07:27
PROVIDERS: Emergency Provider Emergency Medicine; PCP Internal Medicine
DX: K56.609 Unspecified intestinal obstruction, unspecified as to partial versus complete obstruction (principal); C34.90 Malignant neoplasm of unspecified part of unspecified bronchus or lung; J44.9 Chronic obstructive pulmonary disease, unspecified; E03.9 Hypothyroidism, unspecified; F32.9 Major depressive disorder, single episode, unspecified; F41.9 Anxiety disorder, unspecified; Z79.899 Other long term (current) drug therapy; Z93.3 Colostomy status; Z86.73 Personal history of transient ischemic attack (TIA), and cerebral infarction without residual deficits; Z85.048 Personal history of other malignant neoplasm of rectum, rectosigmoid junction, and anus; Z87.891 Personal history of nicotine dependence; Z90.49 Acquired absence of other specified parts of digestive tract
CPT/HCPCS: 74177; 80053; 81001; 83690; 85025; 87086; 87088; 96360; 96361; 99285; J7030; Q9967; A4216; J2405

== ENCOUNTER 2020-08-09 13:56 | Emergency (ER) | payer MEDICARE, OTHER, SELFPAY ==
[2020-08-09] VITALS (11 sets, daily range): BP systolic 81–117; BP diastolic 54–76; PULSE 96–119; RESP 14–22; TEMP 35.3–36.9; O2SAT 95–98; BMI 22.8
--- NOTE | 2020-08-09 14:26 | EKG12_ITS ---
Test Reason : SOB Blood Pressure : / mmHG Vent. Rate : 107 BPM Atrial Rate : 107 BPM P-R Int : 148 ms QRS Dur : 074 ms QT Int : 340 ms P-R-T Axes : -16 050 091 degrees QTc Int : 453 ms Sinus tachycardia Otherwise normal ECG Confirmed by KATLYN TERRAZAS, BAO ([id number]), editor publications DYLON ZUNIGA ([id number]) on 08/12/2020 10:06:24 AM Referred By: STAR Confirmed By:BAO POTTS MD
--- NOTE | 2020-08-09 14:28 | ED.DCSUM_ITS ---
History of Present Illness Narrative: Dr. Horton dictating, the patient was seen with Constance the physicians contract administrative assistant agree with history and physical as above, the patient after fluids has a blood pressure of 95 over palp heart rate 110 head neck chest unremarkable the abdomen is soft she indicates she is some vague pain in the upper abdomen that has resolved now this is an ongoing issue since the above, bowel and bladder habits generally unremarkable noting decreased output in the colostomy given all of the above ED screening evaluation will be done IV fluids we discussed the family the potential transfer to [facility] which is something they are considering <Linda Horton - Last Filed: 08/09/20 15:07> Onset: Days Narrative: 75-year-old female with past medical history of ileostomy, lung cancer resection, full bowel obstructions presents with complaints of abdominal pain with N/V. She states in June 2020 she had a left upper lobe lung resection due to lung cancer. The procedure went well but during hospitalization her bowel function never returned. She was in the hospital for a month. She went home and was eating and drinking normally until 2 weeks ago she was readmitted at [facility] for bowel obstruction. It was treated medically with an NG tube and bow el was returned. She was discharged home on 08/05/2020 and was eating soft foods until 08/07 when she once again developed vague upper abdominal pain with nausea and vomiting when trying to eat. She is only tolerating liquids and Jell-O. She has had decreased watery output in her ostomy. She is concerned she has another bowel obstruction. Previous abdominal surgeries include cholecystectomy, C-sections. Admits to chills. Denies fevers, hematemesis, or blood in stool. <Constance Puga - Last Filed: 08/09/20 17:26> Chief Complaint: Abd Pain Past Medical History - Family History Maternal Family History: Family History (Last Reviewed 07/20/20 @ 15:23 by Skye Davis) Father Heart disease Mother Heart disease Sister Heart disease Diabetes Sibling Family History: Family History (Last Reviewed 07/20/20 @ 15:23 by Skye Davis) Father Heart disease Mother Heart disease Sister Heart disease Diabetes Paternal Family History: Family History (Last Reviewed 07/20/20 @ 15:23 by Skye Davis) Father Heart disease Mother Heart disease Sister Heart disease Diabetes <Linda Horton - Last Filed: 08/09/20 15:07> Past Medical History: - - Remote rectal cancer, ileostomy, lung cancer status post resection, bowel obstructions Surgical History: cholecystectomy, tonsillectomy, - - partial colectomy/colostomy, left upper lobectomy Smoking Status: Former smoker - Family History Maternal Family History: Family History (Last Reviewed 07/20/20 @ 15:23 by Skye Davis) Father Heart disease Mother Heart disease Sister Heart disease Diabetes Family History: Reports: COPD, Heart Disease Sibling Family History: Family History (Last Reviewed 07/20/20 @ 15:23 by Skye Davis) Father Heart disease Mother Heart disease Sister Heart disease Diabetes Family History: Reports: Diabetes Paternal Family History: Family History (Last Reviewed 07/20/20 @ 15:23 by Skye Davis) Father Heart disease Mother Heart disease Sister Heart disease Diabetes Family History: Reports: Heart Disease <Constance Puga - Last Filed: 08/09/20 17:26> - Allergies and Home Meds Allergies/Adverse Reactions: Allergies ciprofloxacin [From Cipro] Allergy (Verified 08/09/20 14:00) Rash ciprofloxacin HCl [From Cipro] Allergy (Verified 08/09/20 14:00) Rash Penicillins Allergy (Verified 08/09/20 14:00) Hives codeine Adverse Reaction (Verified 08/09/20 14:00) makes her feel weird makes her feel weird NSAIDS (Non-Steroidal Anti-Inflamma Adverse Reaction (Verified 08/09/20 14:00) kidney damage r/t long-term usage advised not to use kidney damage r/t long-term usage advised not to use MAGNESIUM CITRATE Adverse Reaction (Uncoded 08/09/20 14:00) Nausea Primary Care Physician: Adis Mireles MD [Primary Care Provider] - Review of Systems General: Reports: Chills, Malaise. Denies: Fever, Weight loss Eyes: Denies: Visual changes - bilaterally, Diplopia ENT: Denies: Rhinorrhea, Sore throat Cardiovascular: Denies: Chest pain, Palpitations Respiratory: Denies: Dyspnea, Cough, Dyspnea on exertion Gastrointestinal: Reports: Abdominal pain, Nausea, Vomiting. Denies: Melena, Hematochezia Genitourinary: Denies: Dysuria, Hematuria, Frequency Musculoskeletal: Denies: Back pain, Extremity Pain Skin: Denies: Rash, Wounds Neurological: Denies: Headache, Weakness, Numbness <Constance Puga - Last Filed: 08/09/20 17:26> Physical Exam Vital Signs/Narrative: Vital Signs Temp Pulse Resp BP Pulse Ox 08/09/20 15:00 97.9 F 114 H 22 H 94/76 95 08/09/20 14:38 95 08/09/20 14:37 114 H 22 H 94/76 98 08/09/20 14:26 97.9 F 08/09/20 13:57 95.6 F L 119 H 16 81/54 L 95 <Linda Horton - Last Filed: 08/09/20 15:07> Vital Signs/Narrative: Vital Signs Temp Pulse Resp BP Pulse Ox 08/09/20 13:57 95.6 F L 119 H 16 81/54 L 95 Inital Vital Signs reviewed: Yes General: Cachectic, No Acute Distress Head: Normocephalic, Atraumatic Eyes: EOMI ENT: Moist mucous membranes, No rhinorrhea Neck: Supple, Nontender Cardiovascular: Regular rhythm, No murmurs, Tachycardia Respiratory: No distress, CTA bilaterally, Chest nontender Abdomen: Soft, Nontender, Nondistended, Normal bowel sounds, - - Ostomy in place, no signs of infection of the surrounding skin Back: Nontender, Normal Inspection Extremities: No edema Skin: Normal color, No rash Neurological: Alert, Oriented x3, Cranial nerves II-XII grossly intact Psychological: Normal affect, Normal Mood <Constance Puga - Last Filed: 08/09/20 17:26> Diagnostic/Tx/Re-eval Clinical Impression(s) from Imaging Studies Abdomen/Pelvis CT 08/09/20 14:32 IMPRESSION: 1. Probably partial high-grade small bowel obstruction and/or enteritis. No colonic obstruction. Electronically Signed: Taty Nunez, at 16:24 EDT Tel , Service support , Laboratory Data 10/02/2308/09/20 08/09/20 14:37 14:37 14:37 WBC 9.3 RBC 4.83 Hgb 13.8 Hct 44.0 MCV 91.1 MCH 28.6 MCHC 31.4 L RDW Std Deviation 42.3 RDW Coeff of Osmar 12.7 Plt Count 325 MPV 8.8 Immature Gran % (Auto) 0.200 Neut % (Auto) 51.5 Lymph % (Auto) 36.9 Long % (Auto) 10.9 H Eos % (Auto) 0.4 Baso % (Auto) 0.1 Absolute Neuts (auto) 4.8 Absolute Lymphs (auto) 3.42 Nucleated RBC % 0 PT 13.5 INR 1.1 APTT 32.0 Sodium 136 Potassium 3.8 Chloride 105 Carbon Dioxide 17.0 L Anion Gap 14 BUN 35 H Creatinine 2.65 H Estim Creat Clear Calc 13.84 Est GFR (MDRD) Af Amer 23 L Est GFR (MDRD) Non-Af 19 L BUN/Creatinine Ratio 13.2 Glucose 116 H Lactic Acid Calcium 9.3 Total Bilirubin 0.60 AST 36 ALT 40 Alkaline Phosphatase 146 H Total Protein 8.2 Albumin 3.6 Globulin 4.6 H Albumin/Globulin Ratio 0.8 L Urine Color Urine Clarity Urine pH Ur Specific Elmer Urine Protein Urine Glucose (UA) Urine Ketones Urine Occult Blood Urine Nitrite Urine Bilirubin Urine Urobilinogen Ur Leukocyte Esterase Urine RBC Urine WBC Ur Squamous Epith Cells Urine Bacteria Urine Mucus Urine Yeast 08/09/20 08/09/20 14:37 15:34 WBC RBC Hgb Hct MCV MCH MCHC RDW Std Deviation RDW Coeff of Osmar Plt Count MPV Immature Gran % (Auto) Neut % (Auto) Lymph % (Auto) Long % (Auto) Eos % (Auto) Baso % (Auto) Absolute Neuts (auto) Absolute Lymphs (auto) Nucleated RBC % PT INR APTT Sodium Potassium Chloride Carbon Dioxide Anion Gap BUN Creatinine Estim Creat Clear Calc Est GFR (MDRD) Af Amer Est GFR (MDRD) Non-Af BUN/Creatinine Ratio Glucose Lactic Acid 2.0 Calcium Total Bilirubin AST ALT Alkaline Phosphatase Total Protein Albumin Globulin Albumin/Globulin Ratio Urine Color Yellow Urine Clarity Clear Urine pH 6.0 Ur Specific Elmer 1.020 Urine Protein 30 H Urine Glucose (UA) Normal Urine Ketones 15 H Urine Occult Blood Negative Urine Nitrite Negative Urine Bilirubin 3 H Urine Urobilinogen Normal Ur Leukocyte Esterase 25 H Urine RBC 0 SEEN Urine WBC 0-5 SEEN Ur Squamous Epith Cells 0 SEEN Urine Bacteria 0 SEEN Urine Mucus 0 SEEN Urine Yeast 1+ - Medical Decision Making Patient appears chronically ill but nontoxic. Vital signs initially showed hypotension of 95/70s, tachycardia in 110s, otherwise normal. Afebrile. She h as an unremarkable general medical exam. She had vague abdominal pain earlier but none now and no reproducible tenderness on exam. Abdomen is soft with no peritoneal signs. Labs show no leukocytosis, normal electrolytes, creatinine is increased from baseline of 1.2 to 2.65 likely secondary to dehydration. Urine is negative for infection. Blood cultures pending. After IV fluids patient's vital signs normalized. CT showed probable partial high-grade small bowel obstruction. Due to SBO patient will require transfer back to [facility]. Patient and family were agreeable with this. Case was discussed with [facility] colorectal team who was agreeable to admission and recommended NG tube placement. NG tube placed without complication and she was transferred in stable condition. <Constance Puga - Last Filed: 08/09/20 17:26> ED Disposition <Linda Horton - Last Filed: 08/09/20 15:07> <Constance Puga - Last Filed: 08/09/20 17:26> - Plan for ED Patient: Disposition: [facility] Diagnosis: SBO (small bowel obstruction), TOMÁS (acute kidney injury), Dehydration Referrals: Adis Mireles MD [Primary Care Provider] -
--- NOTE | 2020-08-09 14:32 | CT_ITS ---
STUDY: CT ABDOMEN AND PELVIS WITHOUT CONTRAST REASON FOR EXAM: Female, 75 years old. Abdominal pain colostomy output increase, prior hysterectomy cholecystectomy bowel resection RADIATION DOSAGE (If Supplied By Facility): CTDIvol = ( 6.22 ) mGy, DLP = ( 271.99 ) mGycm TECHNIQUE: Transaxial images were obtained from the dome of the diaphragm to the symphysis pubis without oral contrast, and without intravenous contrast. Sagittal and coronal images were reconstructed. Individualized dose optimization techniques were used for this CT. COMPARISON: August 02 2020 FINDINGS: Lung bases are clear. There are bilateral small, 3 to 5 mm, multiple calyceal nonobstructing stones. There are no ureteral stones or hydronephrosis. Bladder is normal. Bowel is diffusely distended with fluid without a clear transitional point. Distal colon is decompressed. There is double barrel left lower quadrant colostomy. There are posttreatment changes in the perirectal space consistent with stated history of rectal cancer, probably radiation related. Solid organs are intact. There is no intra-abdominal free fluid or gas. Osseous structures are intact and osteoporotic. CT/Abdomen/Pelvis without Cont IMPRESSION: 1. Probably partial high-grade small bowel obstruction and/or enteritis. No colonic obstruction. Electronically Signed: Taty Nunez, at 16:24 EDT Tel , Service support ,
[2020-08-09] MEDS: 0.9% Normal Saline 1,000 ML 999 ML IV ×2 (14:35→16:55)
[2020-08-09 14:49] LABS: Absolute Lymphocyte Count 3.42 X10^3/uL (0.83-4.51); Absolute Neutrophil Count 4.8 X10^3/uL (2.0-7.7); Basophil# 0.01 X10^3/uL; Basophil% 0.1 % (0-1); Eosinophil# 0.04 X10^3/uL; Eosinophils% 0.4 % (0-5); Hemoglobin 13.8 g/dL (12.0-15.0); Lymphocyte # 3.42 X10^3/ul (4.0); Lymphocyte % 36.9 % (19-41); Mean Corp Hgb Conc 31.4 g/dL (32-36); Mean Corpuscular Hgb 28.6 pg (27.0-32.0); Mean Corpuscular Volume 91.1 fL (81-99); Mean Platelet Vol. 8.8 fl (6.2-12.0); Monocyte# 1.01 X10^3/uL; Monocyte% 10.9 % (0-10); NRBC Flagged by Analyzer 0 % (0-5); Neutrophil # 4.77 X10^3/uL (2.7-7.7); Neutrophil % 51.5 % (47-70); Platelet Count 325 K/mm3 (150-450); RBC Distribution Width CV 12.7 % (11.6-14.6); RBC Distribution Width SD 42.3 fl (35.1-43.9); Red Blood Count 4.83 M/mm3 (4.2-5.4); White Blood Count 9.3 K/mm3 (4.4-11.0)
[2020-08-09 15:05] LABS: ALB/GLOB Ratio 0.8 RATIO (0.9-2.4); AST(SGOT) 36 U/L (15-37); Alanine Aminotransfer ALT/SGPT 40 U/L (13-56); Albumin, Serum 3.6 g/dL (3.2-5.0); Alkaline Phosphatase 146 U/L (45-117); Anion Gap 14 (5-15); BUN 35 mg/dL (7-18); BUN/Creat Ratio 13.2 RATIO (10-20); Calcium,Total 9.3 mg/dL (8.5-10.1); Chloride 105 mmol/L (98-107); Creatinine, Serum 2.65 mg/dL (0.55-1.02); EST Glomerular Filtration Rate 19 mL/min (>60); Est Glom Filt Rate - Afr Amer 23 mL/min (>60); Estimated Creatinine Clearance 13.84 ml/min; Globulin 4.6 g/dL (2.2-4.2); Glucose 116 mg/dL (74-106); Potassium 3.8 mmol/L (3.5-5.1); Protein, Total 8.2 g/dL (6.4-8.2); Sodium Level 136 mmol/L (136-145)
[2020-08-09 15:10] LABS: International Normalized Ratio 1.1; Prothrombin Time (Protime)PT. 13.5 SECONDS (11.7-14.9)
[2020-08-09 15:39] LABS: Bacteria 0 SEEN /hpf (None Seen); Mucous, Urine 0 SEEN /hpf (<or=2+); Red Blood Cells-Urine 0 SEEN /hpf (0-5); Squamous Epithelial Cells - UA 0 SEEN /hpf (5-10)
[2020-08-09 15:41] LABS: Color, Urine Yellow (Yellow); Glucose, Dipstick Normal (Normal); Ketone-Dipstick 15 mg/dl (Negative); Leukocyte Esterase-Dipstick 25 /ul (Negative); Nitrite-Dipstick Negative (Negative); Occult Blood-Urine Negative /ul (Negative); Protein-Dipstick 30 mg/dl (Negative); Urine Bilirubin Dipstick 3 mg/dL (Negative); Urine Clarity Clear (Clear); Urine Urobilinogen Normal (Normal)
[2020-08-09 15:54] LABS: White Blood Cells 0-5 SEEN /hpf (0-5); Yeast-Urine 1+ /hpf (None Seen)
[2020-08-09] MEDS: Morphine 4 MG/ML Syringe IV (16:55)
--- NOTE | 2020-08-09 17:23 | RAD_ITS ---
STUDY: X-RAY - ABDOMEN/PELVIS REASON FOR EXAM: Female, 75 years old. NG PLACEMENT TECHNIQUE: Frontal view of the lower chest and upper abdomen COMPARISON: Earlier same day imaging CT FINDINGS: Lung bases are clear. Gastric tube is present with its side-port in the distal esophagus and tip in the proximal fundus. The graft there is no gas under the diaphragms. RAD/Abdomen Single View (Portable) IMPRESSION: 1. Gastric tube with tip in the proximal gastric fundus. If placement into the distal antrum is desired advancement by 35 cm can be performed. Electronically Signed: Taty Nunez, at 19:00 EDT Tel , Service support ,
[2020-08-09] MEDS: Oxymetazoline 0.05% 1 SPRAY SPRAY.BTL 2 SPRAY NASAL (17:56)
[2020-08-09] MEDS: Lidocaine 4% 5 ML Ampul 2 ML INHALATION (18:21)
[2020-08-09 18:44] LABS: Reflex Lactate? Y
== END 2020-08-09 19:08 | disposition short-term general hospital (02) ==
PROVIDERS: Emergency Provider Physician Assistant; PCP Internal Medicine
DX: K56.609 Unspecified intestinal obstruction, unspecified as to partial versus complete obstruction (principal); N17.9 Acute kidney failure, unspecified; E86.0 Dehydration; I95.9 Hypotension, unspecified; R64 Cachexia; Z79.899 Other long term (current) drug therapy; Z93.3 Colostomy status; Z93.2 Ileostomy status; Z87.891 Personal history of nicotine dependence; Z85.118 Personal history of other malignant neoplasm of bronchus and lung; Z85.048 Personal history of other malignant neoplasm of rectum, rectosigmoid junction, and anus
CPT/HCPCS: 74018; 74176; 80053; 81001; 83605; 85025; 85610; 85730; 87040; 87086; 87088; 93005; 94640; 96361; 96374; 99285; J7030; A4216

== ENCOUNTER → 2020-11-04 12:17 | Outpatient (CLI) | payer MEDICARE, OTHER, SELFPAY ==
[2020-09-28 10:47] VITALS: BMI 20.9
[2020-11-04 15:32] LABS: Color, Urine Yellow (Yellow); Glucose, Dipstick Normal (Normal); Ketone-Dipstick Negative (Negative); Leukocyte Esterase-Dipstick 500 /ul (Negative); Nitrite-Dipstick Positive (Negative); Occult Blood-Urine 25 /ul (Negative); Protein-Dipstick 30 mg/dl (Negative); Urine Bilirubin Dipstick Negative (Negative); Urine Clarity Sl. Cloudy (Clear); Urine Urobilinogen Normal (Normal)
[2020-11-04 15:43] LABS: Hematocrit 39.1 % (37-47); Mean Corp Hgb Conc 30.7 g/dL (32-36); Mean Corpuscular Hgb 27.5 pg (27.0-32.0); Mean Corpuscular Volume 89.7 fL (81-99); Mean Platelet Vol. 9.9 fl (6.2-12.0); Platelet Count 278 K/mm3 (150-450); RBC Distribution Width CV 15.4 % (11.6-14.6); RBC Distribution Width SD 50.4 fl (35.1-43.9); Red Blood Count 4.36 M/mm3 (4.2-5.4); White Blood Count 10.3 K/mm3 (4.4-11.0)
[2020-11-04 15:47] LABS: Vitamin D,25 Hydroxy 15.2 ng/mL
[2020-11-04 15:58] LABS: Microalbumin,Random Urine 77.5 mg/L (NO RANGE EST.); Microalbumin:Creatinine Ratio 106.6 mg/g CRE (<30 mg/g CRE); Protein, Urine (Random) 54.9 mg/dL (<11.9); Protein:Creat Ratio 755 mg/g CRE (0-200)
[2020-11-04 16:03] LABS: Albumin, Serum 3.4 g/dL (3.2-5.0); BUN 12 mg/dL (7-18); BUN/Creat Ratio 9.4 RATIO (10-20); Calcium,Total 8.3 mg/dL (8.5-10.1); Chloride 116 mmol/L (98-107); Creatinine, Serum 1.27 mg/dL (0.55-1.02); EST Glomerular Filtration Rate 44 mL/min (>60); Est Glom Filt Rate - Afr Amer 53 mL/min (>60); Glucose 85 mg/dL (74-106); Phosphorus 2.5 mg/dL (2.5-4.9); Potassium 2.6 mmol/L (3.5-5.1); Sodium Level 142 mmol/L (136-145)
== END ==
PROVIDERS: PCP Internal Medicine; Referring Provider Internal Medicine Nephrology; Visit Provider Internal Medicine Nephrology
DX: N18.30 Chronic kidney disease, stage 3 unspecified (principal)
CPT/HCPCS: 36415; 80069; 81002; 82043; 82306; 82570; 83970; 84156; 85027

== ENCOUNTER → 2020-11-12 13:03 | Outpatient (CLI) | payer MEDICARE, OTHER, SELFPAY ==
[2020-09-28 10:47] VITALS: BMI 20.9
[2020-11-12 15:22] LABS: Anion Gap 7 (5-15); BUN 13 mg/dL (7-18); BUN/Creat Ratio 11.5 RATIO (10-20); Calcium,Total 8.6 mg/dL (8.5-10.1); Chloride 114 mmol/L (98-107); Creatinine, Serum 1.13 mg/dL (0.55-1.02); EST Glomerular Filtration Rate 50 mL/min (>60); Est Glom Filt Rate - Afr Amer 60 mL/min (>60); Glucose 88 mg/dL (74-106); Potassium 4.2 mmol/L (3.5-5.1); Sodium Level 139 mmol/L (136-145)
== END ==
PROVIDERS: PCP Internal Medicine
DX: N18.31 Chronic kidney disease, stage 3a (principal)
CPT/HCPCS: 36415; 80048

== ENCOUNTER 2021-07-12 10:17 | Inpatient (IN) | payer MEDICARE, OTHER, SELFPAY ==
[2021-07-12] VITALS (12 sets, daily range): BP systolic 92–113; BP diastolic 52–70; PULSE 80–101; RESP 14–24; TEMP 36.4–36.8; O2SAT 96–100; BMI 20.8; BMI 21.2
--- NOTE | 2021-07-12 10:37 | EKG12_ITS ---
Test Reason : SOB Blood Pressure : / mmHG Vent. Rate : 086 BPM Atrial Rate : 086 BPM P-R Int : 188 ms QRS Dur : 082 ms QT Int : 384 ms P-R-T Axes : 084 -04 073 degrees QTc Int : 459 ms Sinus rhythm with marked sinus arrhythmia Nonspecific T wave abnormality Abnormal ECG Confirmed by HUGH TERRAZAS, REFUGIO ([id number]), electronic news gathering editor DYLON ZUNIGA ([id number]) on 07/13/2021 8:46:30 AM Referred By: Confirmed By:REFUGIO REESE MD
--- NOTE | 2021-07-12 10:38 | CT_ITS ---
EXAM: CT ABDOMEN AND PELVIS WITHOUT INTRAVENOUS CONTRAST : 1945 CLINICAL INDICATION: kidney stone TECHNIQUE: Helically acquired images were obtained of the abdomen and pelvis without intravenous contrast. This CT exam was performed using one or more of the following dose reduction techniques: automated exposure control, adjustment of the mA and/or kV according to patient size, and/or use of iterative reconstruction technique. This report was created using [employer] report generation technology. COMPARISON: 08/09/2020 FINDINGS: LOWER THORAX: Unremarkable. Lung bases are clear. No cardiomegaly. No significant pericardial effusion. ABDOMEN: LIVER: Unremarkable. Homogeneous. GALLBLADDER AND BILE DUCTS: Unremarkable. No calcified gallstones. No gallbladder distention or wall edema. No intra- or extrahepatic biliary ductal dilation. PANCREAS: Unremarkable. No focal cystic mass. SPLEEN: Unremarkable. Normal size without focal cystic or solid mass. ADRENALS: Unremarkable. No nodules. KIDNEYS AND URETERS: There is bilateral hydronephrosis and hydroureter. Normal renal size and position. STOMACH AND BOWEL: There is a left lower quadrant colostomy. No stomach or bowel distention. No focal inflammatory change. PELVIS: APPENDIX: No evidence of acute appendicitis. BLADDER: The bladder is mildly distended perhaps creating reflux. REPRODUCTIVE: Unremarkable as visualized. No mass. ABDOMEN and PELVIS: INTRAPERITONEAL SPACE: Unremarkable. No ascites or other fluid collection. No free air. BONES/JOINTS: Unremarkable. No suspicious lytic or blastic abnormality. SOFT TISSUES: Unremarkable. No discrete abdominal or pelvic wall hernia. VASCULATURE: Unremarkable. Abdominal aorta is non-dilated. LYMPH NODES: Unremarkable. No enlarged lymph nodes. OTHER FINDINGS: There are no obstructing stones identified. CT/Abdomen/Pelvis without Cont IMPRESSION: Bilateral hydronephrosis and hydroureter with no obvious obstructing calyceal stones. There is some mild distention of the urinary bladder perhaps creating reflux. Possibility of edema from recently passed stones cannot be excluded. There are nonobstructing bilateral calyceal stones present. If indicated further evaluation with retrograde Polygram may be beneficial. Individualized dose optimization techniques were used for this CT. at 1157 Reported and signed by: Renny Laboy MD Electronically Signed: Renny Laboy MD at 11:56 EDT Tel , Service support ,
--- NOTE | 2021-07-12 10:39 | EX.ED.DYSGE1 ---
HPI History of Present Illness Chief Complaint: Shortness of Breath Informant: patient and family Narrative Narrative: 75-year-old female states for the past couple weeks she has had increasing intermittent pain across her low back. She notes urinary frequency with small amounts. She notes urinary pressure. She states she wonders if she is getting kidney stones again. She sees Dr. Morrison for that. She notes chills but no fever. Family also states she does not seem to be breathing as well. She has a history of emphysema and lung cancer. Family states that her heart rate seems higher than normal but she is significantly more dyspneic with exertion. No change in cough.. [facility] Medical History (Updated 07/12/21 @ 13:[address] Sanjeev Rincon, DO) Abdominal bloating Anxiety Chronic bronchitis COPD (chronic obstructive pulmonary disease) COPD exacerbation Decreased appetite Depression Filling defect on imaging study History of rectal cancer Hydronephrosis, right Hypothyroidism Nicotine abuse Rectal cancer 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 calculus TIA (transient ischemic attack) Home Medications bupropion HCl 150 mg 24 hr tablet, extended release 150 mg PO QAM 11/28/18 [History Last Taken 04/17/20 06:00] citalopram 40 mg PO DAILY 04/24/19 [History Last Taken 04/17/20 06:00] levothyroxine 75 mcg PO DAILY@0600 08/27/19 [History Last Taken 04/17/20 06:00] cyanocobalamin (vitamin B-12) 100 mcg IM Q30D 10/08/19 [History Last Taken 03/22/20] albuterol sulfate 90 mcg/actuation aerosol inhaler 2 puff INHALATION Q4H PRN #18 g 12/09/19 [Rx Last Taken Unknown] metoclopramide HCl 10 mg PO 4X/DAY 08/09/20 [History Last Taken Unknown] Allergy/AdvReac Type Severity Reaction Status Date / Time ciprofloxacin [From Cipro] Allergy Rash Verified 07/12/21 10:17 ciprofloxacin HCl Allergy Rash Verified 07/12/21 10:17 [From Cipro] Penicillins Allergy Hives Verified 07/12/21 10:17 codeine AdvReac makes her Verified 07/12/21 10:17 feel weird NSAIDS (Non-Steroidal AdvReac kidney Verified 07/12/21 10:17 Anti-Inflamma damage r/t long-term usage advised not to use MAGNESIUM CITRATE AdvReac Nausea Uncoded 07/12/21 10:17 Family History Father Heart disease Mother Heart disease Sister Heart disease Diabetes Surgical History History of bowel resection History of delivery History of cholecystectomy History of colonoscopy (~10/2019) History of colostomy History of hysterectomy History of hysterectomy Social History Smoking Status: Former smoker Tobacco: How many years used: 53 second hand exposure: No alcohol intake: never substance use type: does not use caffeine: No what type of physical activity do you participate in: none ROS ROS ED Constitutional Constitutional ED: Reports chills; Denies fever(s) or weight loss Eyes Eyes: Denies change in vision or diplopia ENT ENT ED: Denies ear pain, rhinorrhea or sore throat Cardiovascular Cardiovascular: Reports racing heartbeat; Denies chest pain, orthopnea or palpitations Respiratory/Chest Respiratory/Chest: Reports dyspnea and dyspnea on exertion; Denies cough or orthopnea Gastrointestinal Gastrointestinal: Denies abdominal pain, diarrhea, nausea or vomiting Genitourinary Genitourinary ED: Reports urinary frequency; Denies dysuria or hematuria Musculoskeletal Musculoskeletal: Reports back pain; Denies arthralgias or myalgias Integumentary Denies abscess or rash Neurologic Neurologic: Denies headache(s) or weakness Psychiatric Psychiatric: Denies anxiety, depression, suicidal ideation or suicidal thoughts Endocrine Endocrinology: Denies polydipsia, polyphagia or polyuria Allergic/Immunologic Allergic/Immunologic ED: Denies mouth swelling, tongue swelling or urticaria EXAM Physical Exam Const Vital Signs: 07/12/21 10:18 07/12/21 10:44 07/12/21 10:50 Temperature 97.8 F 97.8 F Temperature Source Temporal Oral Pulse Rate 101 H 87 Respiratory Rate 22 H 20 H Respiratory Effort Short of Breath Labored Respiratory Depth Normal Respiratory Pattern Normal Blood Pressure 103/52 L 103/52 L Blood Pressure Mean 69 69 Pulse Ox 100 98 Oxygen Delivery Method Room Air Room Air Room Air 07/12/21 11:37 07/12/21 12:12 07/12/21 12:23 Temperature 98.0 F 98.0 F Temperature Source Oral Oral Pulse Rate 86 80 81 Respiratory Rate 20 H 14 19 H Respiratory Effort Respiratory Depth Respiratory Pattern Blood Pressure 102/66 92/63 98/65 Blood Pressure Mean 78 72 76 Pulse Ox 100 99 96 Oxygen Delivery Method Room Air Room Air Room Air Positive well nourished and well developed General Appearance ED: well developed HEENT Reports normocephalic, head/scalp atraumatic and moist mucous membranes Eyes PERRL and EOMs intact bilaterally Neck no lymphadenopathy, supple and no JVD Resp normal respiratory effort and clear to auscultation bilaterally Cardio regular rate and no murmurs Rate: tachycardic GI normal to inspection, nondistended, normoactive bowel sounds and non-tender Palpation: soft Back/Spine no CVA tenderness and normal ROM Extremity normal to inspection General Extremety ED: Negative for edema General Extremity: Negative for edema Neuro oriented x3 and CN's II-XII intact bilaterally Sensorium / Orientation: alert Motor Exam: strength 5/5 throughout Psych mental status grossly normal Mood & Affect: Negative for depressed or tearful Skin no rashes or lesions noted and no wounds MDM MDM MDM Narrative Medical decision making narrative: Blood work revealed a white count of 19.9. Potassium significantly low at 2.3. Magnesium at 1.5. Lactic acid 1.8. BUN of 37 with a creatinine of 2.23. Serum CO2 was 12. An ABG was obtained which shows a pH of 7.304 PCO2 of 18.4 bicarb 9.1. My interpretation of the chest x-ray is no acute process. CT of the abdomen pelvis demonstrated some hydronephroureter but no obvious obstruction. Urinalysis is greater than 100 white cells 2+ bacteria positive leukocyte esterase. Patient received IV fluids. Blood cultures and urine cultures were obtained and she then received Rocephin. Lab Data Attestation: I reviewed the patient's lab results. Labs: Laboratory Results - last 24 hr 07/12/21 07/12/21 07/12/21 10:55 10:55 10:55 WBC 19.9 H RBC 4.26 Hgb 12.4 Hct 38.6 MCV 90.6 MCH 29.1 MCHC 32.1 RDW Std Deviation 47.5 H RDW Coeff of Osmar 14.2 Plt Count 204 MPV 9.6 Immature Gran % (Auto) 2.500 H Neut % (Auto) 87.2 H Lymph % (Auto) 4.4 L [place] % (Auto) 5.5 Eos % (Auto) 0.2 Baso % (Auto) 0.2 Absolute Neuts (auto) 17.3 H Absolute Lymphs (auto) 0.87 Nucleated RBC % 0 D-Dimer Quant (PE/DVT) 4.12 H* Sodium 137 Potassium 2.3 L* Chloride 110 H Carbon Dioxide 12.0 L Anion Gap 15 BUN 37 H Creatinine 2.23 H Estim Creat Clear Calc 17.24 Est GFR (MDRD) Af Amer 28 L Est GFR (MDRD) Non-Af 23 L BUN/Creatinine Ratio 16.6 Glucose 104 Lactic Acid Calcium 8.0 L Magnesium Total Bilirubin 0.50 AST 32 ALT 28 Alkaline Phosphatase 132 H Troponin I High Sens 12 Total Protein 7.7 Albumin 2.6 L Globulin 5.1 H Albumin/Globulin Ratio 0.5 L Urine Color Urine Clarity Urine pH Ur Specific [place] Urine Protein Urine Glucose (UA) Urine Ketones Urine Occult Blood Urine Nitrite Urine Bilirubin Urine Urobilinogen Ur Leukocyte Esterase Urine RBC Urine WBC Ur Squamous Epith Cells Urine Bacteria Urine Mucus 07/12/21 07/12/21 07/12/21 10:55 11:25 11:55 WBC RBC Hgb Hct MCV MCH MCHC RDW Std Deviation RDW Coeff of Osmar Plt Count MPV Immature Gran % (Auto) Neut % (Auto) Lymph % (Auto) [place] % (Auto) Eos % (Auto) Baso % (Auto) Absolute Neuts (auto) Absolute Lymphs (auto) Nucleated RBC % D-Dimer Quant (PE/DVT) Sodium Potassium Chloride Carbon Dioxide Anion Gap BUN Creatinine Estim Creat Clear Calc Est GFR (MDRD) Af Amer Est GFR (MDRD) Non-Af BUN/Creatinine Ratio Glucose Lactic Acid 1.8 Calcium Magnesium 1.5 L Total Bilirubin AST ALT Alkaline Phosphatase Troponin I High Sens Total Protein Albumin Globulin Albumin/Globulin Ratio Urine Color Yellow Urine Clarity Cloudy Urine pH 6.0 Ur Specific [place] 1.015 Urine Protein 100 H Urine Glucose (UA) Normal Urine Ketones Negative Urine Occult Blood 150 H Urine Nitrite Negative Urine Bilirubin Negative Urine Urobilinogen Normal Ur Leukocyte Esterase 500 H Urine RBC 5-10 SEEN Urine WBC >100 SEEN Ur Squamous Epith Cells 0 SEEN Urine Bacteria 2+ Urine Mucus 0 SEEN ABG Data ABG results: ABG 07/12/21 13:02 Specimen Type ART Sample Site R Radial pH 7.30 L Bicarbonate Actual 9.1 L Total CO2 10 Base Excess -17 L O2 Saturation 100 H ABG pCO2 18.4 L* ABG pO2 193 H Ramón Test Positive Crit Call To/Read Back Yes Radiography Diagnostic Testing: Radiology Impression Abdomen/Pelvis CT 07/12/21 10:38 IMPRESSION: Bilateral hydronephrosis and hydroureter with no obvious obstructing calyceal stones. There is some mild distention of the urinary bladder perhaps creating reflux. Possibility of edema from recently passed stones cannot be excluded. There are nonobstructing bilateral calyceal stones present. If indicated further evaluation with retrograde Polygram may be beneficial. Individualized dose optimization techniques were used for this CT. at 1157 Reported and signed by: Renny Laboy MD Electronically Signed: Renny Laboy MD at 11:56 EDT Tel , Service support , Chest X-Ray 07/12/21 10:56 IMPRESSION: Mild pulmonary hyperinflation with interstitial scarring. There is no acute pulmonary abnormality. at 1149 Reported and signed by: Renny Laboy MD Electronically Signed: Renny Laboy MD at 11:48 EDT Tel , Service support , EKG Initial EKG: Attestation: I personally reviewed and interpreted this EKG as follows: Comments: Sinus rhythm with a rate of 86 bpm. Noted sinus arrhythmia. Critical Care Time Critical Care Time: Yes Critical care time (excluding procedures): 30-74 minutes (35 min), Including time spent:, Discussing w/Patient &/or Family/Machine Sign Writer, Discussing w/Consultants, Arranging Admission or Transfer and Performing Direct Patient Care at Bedside Discharge Plan Dx/Rx/DC Orders Clinical Impression: Acute cystitis, Sepsis, Metabolic acidosis, Acute hypokalemia Disposition Disposition: Acute Care Hospital [facility]
--- NOTE | 2021-07-12 10:56 | RAD_ITS ---
EXAM: XR CHEST, 1 VIEW : 1945 CLINICAL INDICATION: dyspnea TECHNIQUE: Frontal view of the chest. This report was created using [employer] report generation technology. COMPARISON: 04/17/2020 FINDINGS: LUNGS AND PLEURAL SPACES: There is minimal scarring in the right lung base. The lungs are mildly hyperinflated. No pneumothorax. No effusion. HEART: Unremarkable. Cardiac silhouette not enlarged. MEDIASTINUM: Central airways and mediastinal contour are unremarkable. BONES/JOINTS: Unremarkable. SOFT TISSUES: Unremarkable. RAD/Chest 1 View (Portable) IMPRESSION: Mild pulmonary hyperinflation with interstitial scarring. There is no acute pulmonary abnormality. at 1149 Reported and signed by: Renny Laboy MD Electronically Signed: Renny Laboy MD at 11:48 EDT Tel , Service support ,
[2021-07-12 11:05] LABS: Absolute Lymphocyte Count 0.87 X10^3/uL (0.83-4.51); Absolute Neutrophil Count 17.3 X10^3/uL (2.0-7.7); Basophil# 0.03 X10^3/uL; Basophil% 0.2 % (0-1); Eosinophil# 0.04 X10^3/uL; Eosinophils% 0.2 % (0-5); Hematocrit 38.6 % (37-47); Hemoglobin 12.4 g/dL (12.0-15.0); Lymphocyte # 0.87 X10^3/ul (0.83-4.51); Lymphocyte % 4.4 % (19-41); Mean Corp Hgb Conc 32.1 g/dL (32-36); Mean Corpuscular Hgb 29.1 pg (27.0-32.0); Mean Corpuscular Volume 90.6 fL (81-99); Mean Platelet Vol. 9.6 fl (6.2-12.0); Monocyte# 1.09 X10^3/uL; Monocyte% 5.5 % (0-10); NRBC Flagged by Analyzer 0 % (0-5); Neutrophil # 17.34 X10^3/uL (2.7-7.7); Neutrophil % 87.2 % (47-70); Platelet Count 204 K/mm3 (150-450); RBC Distribution Width CV 14.2 % (11.6-14.6); RBC Distribution Width SD 47.5 fl (35.1-43.9); Red Blood Count 4.26 M/mm3 (4.2-5.4); White Blood Count 19.9 K/mm3 (4.4-11.0)
[2021-07-12 11:31] LABS: D-Dimer Quantitative (DVT/PE) 4.12 FEU/ug/m (0.27-0.49)
[2021-07-12 11:32] LABS: ALB/GLOB Ratio 0.5 RATIO (0.9-2.4); AST(SGOT) 32 U/L (15-37); Alanine Aminotransfer ALT/SGPT 28 U/L (13-56); Albumin, Serum 2.6 g/dL (3.2-5.0); Alkaline Phosphatase 132 U/L (45-117); Anion Gap 15 (5-15); BUN 37 mg/dL (7-18); BUN/Creat Ratio 16.6 RATIO (10-20); Chloride 110 mmol/L (98-107); Creatinine, Serum 2.23 mg/dL (0.55-1.02); EST Glomerular Filtration Rate 23 mL/min (>60); Est Glom Filt Rate - Afr Amer 28 mL/min (>60); Estimated Creatinine Clearance 17.24 ml/min; Globulin 5.1 g/dL (2.2-4.2); Glucose 104 mg/dL (74-106); Potassium 2.3 mmol/L (3.5-5.1); Protein, Total 7.7 g/dL (6.4-8.2); Sodium Level 137 mmol/L (136-145); Troponin-I HS 12 pg/mL (3.0-54.0)
[2021-07-12 11:35] LABS: Color, Urine Yellow (Yellow); Glucose, Dipstick Normal (Normal); Ketone-Dipstick Negative (Negative); Leukocyte Esterase-Dipstick 500 /ul (Negative); Mucous, Urine 0 SEEN /hpf (<or=2+); Nitrite-Dipstick Negative (Negative); Occult Blood-Urine 150 /ul (Negative); Protein-Dipstick 100 mg/dl (Negative); Specific Gravity, Urine 1.015 (1.002-1.030); Squamous Epithelial Cells - UA 0 SEEN /hpf (5-10); Urine Bilirubin Dipstick Negative (Negative); Urine Clarity Cloudy (Clear); Urine Urobilinogen Normal (Normal)
[2021-07-12 11:56] LABS: Red Blood Cells-Urine 5-10 SEEN /hpf (0-5); White Blood Cells >100 SEEN /hpf (0-5)
[2021-07-12 11:57] LABS: Bacteria 2+ /hpf (None Seen)
[2021-07-12 11:58] LABS: Magnesium 1.5 mg/dL (1.6-2.6)
[2021-07-12] MEDS: Potassium Chloride Oral Tablet 20 MEQ 40 MEQ PO ×2 (12:06→19:01)
[2021-07-12] MEDS: 0.9% Normal Saline 1,000 ML 1000 ML IV (12:06)
[2021-07-12] MEDS: Potassium Chloride 10mEq/100mL 10 MEQ/100 ML IV.SOLN. 100 MEQ IV BOLUS ×2 (12:11→13:56)
[2021-07-12] MEDS: Ceftriaxone 1 GM/50 ML BAG IV (12:24)
[2021-07-12 12:28] LABS: Lactic Acid 1.8 mmol/L (0.4-1.9)
[2021-07-12 13:06] LABS: Allen Test Positive; Base Excess -17 mmol/L (-2 to +2); Bicarbonate 9.1 mmol/L (22-26); Blood Gas Specimen Type ART; PO2 193 mmHG (75-100); SITE R Radial; SO2 100 % (95-99); Total Carbon Dioxide 10 mmol/L; pCO2 18.4 mmHg (35-45)
--- NOTE | 2021-07-12 13:39 | PCM.HP.STD ---
HPI - General General Date of Admission: 07/12/21 Date of Service: 07/12/21 Chief Complaint: Lower back pain, suprapubic discomfort. HPI Narrative The patient is a 75 y/o F w/ PMHx: Asthma/Chronic COPD/Bronchitis, Anxiety and Depression, Tobacco use, Hypothyroidism, Hx rectal CA, Hx TIA, Hx Lung CA s/p partial resection who presents to the [facility] ED on 07/12/21 with history of ongoing lower back discomfort, aching, sensation of urinary pressure and frequent smaller amounts x 2 weeks without fever or chills. Does report that this sensation has been similar to prior kidney stones passing. Family additionally notes recent increased respiratory rate, often seeming to have difficulty with ambulating with no cough, fever or chills associated. Work-up in the ED included T 98, heart rate 87, BP 103/52 with most recent repeat 98/65, respiratory rate 20, 96% on room air, CBC with WBC 19.9, hemoglobin 12.4, platelet 204 with left shift, D-dimer 4.12, ABG with pH 7.3, bicarb 9.1, base excess -17, PCO2 18.4, PO2 193, CMP with potassium 2.3, chloride 110, carbon dioxide 12, BUN/creatinine 37/2.23, lactic acid 1.8, magnesium 1.5, alk phos 132 otherwise unremarkable hepatic profile, high-sensitivity troponin 12, chest x-ray with mild pulmonary hyperinflation with interstitial scarring with no acute cardiopulmonary finding otherwise, CT abdomen pelvis with bilateral hydronephrosis and hydroureter with no obvious obstructing calyceal stones, mild distention urinary bladder crating reflux, possibility edema from recently passed stones cannot be excluded, nonobstructing bilateral calyceal stones present, urinalysis with specific [place] 1.015, cloudy, urine protein 100, occult blood 150, nitrate negative, leukocyte esterase 500, greater than 100 urine WBCs with 2+ urine bacteria, blood culture x2 pending per ED, rapid Covid antigen negative, urine culture pending per ED. In the ED patient ministered potassium IV and oral as well as normal saline bolus, maintenance IV fluids and Rocephin. [facility] Medical History (Updated 07/12/21 @ 15:[address] Patrica Lindsey MD) Abdominal bloating Anxiety Chronic bronchitis COPD (chronic obstructive pulmonary disease) COPD exacerbation Decreased appetite Depression Filling defect on imaging study History of rectal cancer Hydronephrosis, right Hypothyroidism Lung cancer Nicotine abuse Rectal cancer 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 calculus TIA (transient ischemic attack) Home Medications bupropion HCl 150 mg 24 hr tablet, extended release 150 mg PO QAM 11/28/18 [History Last Taken 04/17/20 06:00] citalopram 40 mg PO DAILY 04/24/19 [History Last Taken 04/17/20 06:00] levothyroxine 75 mcg PO DAILY@0600 08/27/19 [History Last Taken 04/17/20 06:00] cyanocobalamin (vitamin B-12) 100 mcg IM Q30D 10/08/19 [History Last Taken 03/22/20] albuterol sulfate 90 mcg/actuation aerosol inhaler 2 puff INHALATION Q4H PRN #18 g 12/09/19 [Rx Last Taken Unknown] metoclopramide HCl 10 mg PO 4X/DAY 08/09/20 [History Last Taken Unknown] Allergy/AdvReac Type Severity Reaction Status Date / Time ciprofloxacin [From Cipro] Allergy Rash Verified 07/12/21 10:17 ciprofloxacin HCl Allergy Rash Verified 07/12/21 10:17 [From Cipro] Penicillins Allergy Hives Verified 07/12/21 10:17 codeine AdvReac makes her Verified 07/12/21 10:17 feel weird magnesium citrate AdvReac Nausea Verified 07/12/21 14:55 NSAIDS (Non-Steroidal AdvReac kidney Verified 07/12/21 10:17 Anti-Inflamma damage r/t long-term usage advised not to use Family History Father Heart disease Mother Heart disease Sister Heart disease Diabetes Surgical History History of bowel resection History of delivery History of cholecystectomy History of colonoscopy (~10/2019) History of colostomy History of hysterectomy History of hysterectomy Social History (Updated 07/12/21 @ 15:[address] Patrica Lindsey MD) household members: none Smoking Status: Former smoker Tobacco: How many years used: 53 how long ago did patient quit smoking: Quit 2-5 years prior. second hand exposure: No alcohol intake: never substance use type: does not use caffeine: No what type of physical activity do you participate in: none ROS ROS Narrative Admission Review of Systems: CONSTITUTIONAL: No weight loss, fever, chills, + weakness or fatigue. HEENT: Eyes: No visual loss, blurred vision, double vision or yellow sclerae. Ears, Nose, Throat: No hearing loss, sneezing, congestion, runny nose or sore throat. SKIN: No rash or itching, lesions, wounds. CARDIOVASCULAR: No chest pain, chest pressure or chest discomfort, palpitations, edema, orthopnea, syncopal events. RESPIRATORY: + shortness of breath, Unchanged cough, No sputum, wheezing, hemoptysis. GASTROINTESTINAL: + anorexia, No nausea, vomiting or diarrhea, abdominal pain, melena, BRBPR. GENITOURINARY: +Suprapubic pressure, frequency, No retention. NEUROLOGICAL: No headache, dizziness, syncope, paralysis, ataxia, numbness or tingling in the extremities, focal weakness, change in bowel or bladder control, seizure. MUSCULOSKELETAL: + muscle, back pain, joint pain or stiffness. HEMATOLOGIC: + anemia, bleeding or bruising. LYMPHATICS: No enlarged nodes. No history of splenectomy. PSYCHIATRIC: + history of depression or anxiety. ENDOCRINOLOGIC: No reports of sweating, cold or heat intolerance. No polyuria or polydipsia. ALLERGIES: + history of asthma, hives, eczema or rhinitis. Vital Signs Vital Signs Vital Signs: 07/12/21 10:18 07/12/21 10:44 07/12/21 10:50 Temperature 97.8 F 97.8 F Temperature Source Temporal Oral Pulse Rate 101 H 87 Respiratory Rate 22 H 20 H Respiratory Effort Short of Breath Labored Respiratory Depth Normal Respiratory Pattern Normal Blood Pressure 103/52 L 103/52 L Blood Pressure Mean 69 69 Pulse Ox 100 98 Oxygen Delivery Method Room Air Room Air Room Air 07/12/21 11:37 07/12/21 12:12 07/12/21 12:23 Temperature 98.0 F 98.0 F Temperature Source Oral Oral Pulse Rate 86 80 81 Respiratory Rate 20 H 14 19 H Respiratory Effort Respiratory Depth Respiratory Pattern Blood Pressure 102/66 92/63 98/65 Blood Pressure Mean 78 72 76 Pulse Ox 100 99 96 Oxygen Delivery Method Room Air Room Air Room Air Weight Weight: 114 lb Body Mass Index (BMI) 20.8 Physical Exam Narrative Physical Examination: General: Awake, alert, oriented x 3 and cooperative, laying in the ED bed, fatigued appearing, no acute distress, no evidence of any respiratory distress. Skin: Normal color, normal turgor, no icterus, no cyanosis. HEENT: AT/NC, EOMI, PERRLA, mildly dry MM, no carotid bruits or JVD noted. Lungs: Diminished BS, > bases, ALBERTO, no evidence of respiratory distress, no rales, ronchi or wheezing. Heart: Regular rate and rhythm; no gallop, rub audible. Abdomen: Soft, mild discomfort to the suprapubic region, left lower quadrant ostomy in place, mildly hyperactive BS, no obvious HSM. Extremities: No cyanosis, clubbing, or edema. Neurological: Patient awake, alert, oriented as noted, cognitive function appears baseline intact; pupils equally reactive to light and accommodation, cranial nerves II-XII grossly normal, moving all 4 extremities, no focal deficits, strength moderately to severely globally decreased. Psychiatric: Affect appears fatigued otherwise normal, no acute evidence of depressive or anxiety feelings. Results Lab / Micro Data Result Diagrams: 07/12/21 10:55 07/12/21 10:55 Labs: Laboratory Results - last 24 hr 07/12/21 10:55: WBC 19.9 H, RBC 4.26, Hgb 12.4, Hct 38.6, MCV 90.6, MCH 29.1, MCHC 32.1, RDW Std Deviation 47.5 H, RDW Coeff of Osmar 14.2, Plt Count 204, MPV 9.6, Immature Gran % (Auto) 2.500 H, Neut % (Auto) 87.2 H, Lymph % (Auto) 4.4 L, [place] % (Auto) 5.5, Eos % (Auto) 0.2, Baso % (Auto) 0.2, Absolute Neuts (auto) 17.3 H, Absolute Lymphs (auto) 0.87, Nucleated RBC % 0 07/12/21 10:55: D-Dimer Quant (PE/DVT) 4.12 H* 07/12/21 10:55: Sodium 137, Potassium 2.3 L*, Chloride 110 H, Carbon Dioxide 12.0 L, Anion Gap 15, BUN 37 H, Creatinine 2.23 H, Estim Creat Clear Calc 17.24, Est GFR (MDRD) Af Amer 28 L, Est GFR (MDRD) Non-Af 23 L, BUN/Creatinine Ratio 16.6, Glucose 104, Calcium 8.0 L, Total Bilirubin 0.50, AST 32, ALT 28, Alkaline Phosphatase 132 H, Troponin I High Sens 12, Total Protein 7.7, Albumin 2.6 L, Globulin 5.1 H, Albumin/Globulin Ratio 0.5 L 07/12/21 10:55: Magnesium 1.5 L 07/12/21 11:25: Urine Color Yellow, Urine Clarity Cloudy, Urine pH 6.0, Ur Specific [place] 1.015, Urine Protein 100 H, Urine Glucose (UA) Normal, Urine Ketones Negative, Urine Occult Blood 150 H, Urine Nitrite Negative, Urine Bilirubin Negative, Urine Urobilinogen Normal, Ur Leukocyte Esterase 500 H, Urine RBC 5-10 SEEN, Urine WBC >100 SEEN, Ur Squamous Epith Cells 0 SEEN, Urine Bacteria 2+, Urine Mucus 0 SEEN 07/12/21 11:55: Lactic Acid 1.8 Micro: Microbiology 07/12/21 11:50 Nasal Secretion SARS-CoV-2 Antigen (Rapid) - Final ABG Data ABG results: ABG 07/12/21 13:02 Specimen Type ART Sample Site R Radial pH 7.30 L Bicarbonate Actual 9.1 L Total CO2 10 Base Excess -17 L O2 Saturation 100 H ABG pCO2 18.4 L* ABG pO2 193 H Ramón Test Positive Crit Call To/Read Back Yes Radiology Impression Abdomen/Pelvis CT 07/12/21 10:38 IMPRESSION: Bilateral hydronephrosis and hydroureter with no obvious obstructing calyceal stones. There is some mild distention of the urinary bladder perhaps creating reflux. Possibility of edema from recently passed stones cannot be excluded. There are nonobstructing bilateral calyceal stones present. If indicated further evaluation with retrograde Polygram may be beneficial. Individualized dose optimization techniques were used for this CT. at 1157 Reported and signed by: Renny Laboy MD Electronically Signed: Renny Laboy MD at 11:56 EDT Tel , Service support , Chest X-Ray 07/12/21 10:56 IMPRESSION: Mild pulmonary hyperinflation with interstitial scarring. There is no acute pulmonary abnormality. at 1149 Reported and signed by: Renny Laboy MD Electronically Signed: Renny Laboy MD at 11:48 EDT Tel , Service support , Assessment & Plan Assessment/Plan (1) Urinary tract infection: QUALIFIERS: Urinary tract infection type: acute pyelonephritis Qualified Code(s): N10 - Acute pyelonephritis (2) Acute kidney injury: PLAN: The patient is a 75 y/o F w/ PMHx: Asthma/Chronic COPD/Bronchitis, Anxiety and Depression, Tobacco use, Hypothyroidism, Hx rectal CA, Hx TIA, Hx Lung CA s/p partial resection who presents to the [facility] ED on 07/12/21 with history of ongoing lower back discomfort, aching, sensation of urinary pressure and frequent smaller amounts x 2 weeks without fever or chills. 1. Acute Complicated Pyelonephritis with associated bilateral hydronephrosis and hydroureter, possibly recently passed stones: Will admit to medical surgical floor, UA upon ED evaluation remarkable, pending UCx, continue IVFs, monitor I/Os, continue IV Rocephin w/ transition as able pending sensitivities and speciation. Bld cx x 2 obtained in the ED. Will request evaluation with Dr. Morrison with whom she has seen prior. 2. Acute kidney injury on CKD stage III, unclear subtype: Secondary to acute presentation as noted above #1. Admission BUN/Cr 37/2.23, prior baseline creatinine noted to be 1.0-1.2. Will hydrate, hold nephrotoxic medications and repeat chemistry this afternoon as well as in AM. If no improvement would plan FeNa assessment. 3. Metabolic Acidosis: Unclear exact etiology, will attempt to correct electrolytes and repeat BMP this evening as well as in a.m., continue treatment of acute infection and acute kidney injury as noted above. 4. Hypokalemia, hypomagnesium: Admission K+ 2.3, magnesium level 1.5 with supplementation also requested, supplementation given, repeat level in AM. 5. Elevated D-dimer: Unable to obtain CTPA given renal findings, will obtain duplex US and in the interim will transition to heparin drip with de-escalation if duplex unremarkable. 6. Chronic asthma/COPD: Will maintain on oxygen with wean as tolerated to room air, continue ATC duonebs, PRN albuterol, HOB, IS parameters. 7. History of adenocarcinoma of the lung: Patient with 06/2020 left upper lobe per description resection at [facility] in [place], no history of any intervention further, encourage continued follow-up with oncology. 8. Anxiety and depression: We will continue patient home citalopram and bupropion regimen 9. Hypothyroidism: Continue home synthroid regimen. 10. History TIA: We will continue patient aspirin, heparin drip as noted, not on any hypertensive regimen with low BP as noted, not on statin therapy, defer to outpatient given acute presentation currently 11. DVT prophylaxis: SCDs, heparin drip as noted above with de-escalation if duplex negative. 12. CODE status: Patient JOSE is her daughter who is present and living will is currently in place. Discussed CODE status at length including difference between FULL code, DNR-CCA and DNR-CC status. Following discussions about the differences in these status, requested Full Code status. Advanced Care Planning Face to Face Time: 16 minutes. Charges/Coding Visit Charges Inpatient E&M: 53785 Init Hosp L3 Procedures Hospitalists Procedures: 29054 Advncd Care Plan 30 Min
--- NOTE | 2021-07-12 13:44 | CPS ---
Critical ABG values. Dr. Sergey tinajero.
--- NOTE | 2021-07-12 14:19 | VDLE_ITS ---
Reason For Study: elevated D-Dimer RIGHT LEFT GSV is normal. GSV is normal. CFV is compressible, spontaneous, phasic, CFV is compressible, spontaneous, phasic, competent and demonstrates normal competent, and demonstrates normal augmentation. augmentation. FV is compressible, spontaneous, phasic, FV is compressible, spontaneous, phasic, competent and demonstrates normal competent and demonstrates normal augmentation. augmentation. POP V is compressible, spontaneous, phasic, POP V is compressible, spontaneous, phasic, competent and demonstrates normal competent and demonstrates normal augmentation. augmentation. T/P Trunk is compressible. T/P Trunk is compressible. PTV is compressible. PTV is compressible. RT PerV is compressible. LT PerV is compressible. Procedure This is a venous duplex using B-mode, color flow and spectral Doppler. Exam performed portable in patient room. The exam was diagnostic. A preliminary report was called and/or faxed to [facility] charge entry clerk. VL/Venous Duplex US - Jer Extrem Interpretation Summary No evidence for acute deep venous thrombosis bilateral lower extremities with p atent and compressible bilateral great saphenous veins. Ordering Physician: Patrica Lindsey Performed By: Chino Bradley RVT
[2021-07-12 15:02] LABS: International Normalized Ratio 1.5; Prothrombin Time (Protime)PT. 17.4 SECONDS (11.7-14.9)
[2021-07-12] MEDS: 0.9% Normal Saline 1,000 ML 100 ML IV (15:03)
[2021-07-12 15:04] LABS: Partial Thromboplast Time 54.4 Seconds (24.1-36.2)
[2021-07-12] MEDS: Acetaminophen 325 MG Tablet 650 MG PO ×2 (15:07→20:27)
[2021-07-12] MEDS: Heparin Injection (Vial) 5,000 UNIT/ML VIAL 4000 UNIT IV (15:24)
[2021-07-12] MEDS: HEPARIN/D5w 25,000 UNITS 25,000 UNITS/250 ML IV.SOLN. 8 UNITS IV (15:37)
[2021-07-12 18:18] LABS: Anion Gap 17 (5-15); BUN 33 mg/dL (7-18); BUN/Creat Ratio 17.3 RATIO (10-20); Calcium,Total 7.5 mg/dL (8.5-10.1); Chloride 117 mmol/L (98-107); Creatinine, Serum 1.91 mg/dL (0.55-1.02); EST Glomerular Filtration Rate 27 mL/min (>60); Est Glom Filt Rate - Afr Amer 33 mL/min (>60); Estimated Creatinine Clearance 20.13 ml/min; Glucose 99 mg/dL (74-106); Potassium 2.9 mmol/L (3.5-5.1); Sodium Level 142 mmol/L (136-145)
[2021-07-12 18:36] LABS: Procalcitonin > 50.00 ng/mL (0.00-0.09)
[2021-07-12 19:55] LABS: Phosphorus 4.3 mg/dL (2.5-4.9)
[2021-07-12 20:01] LABS: Acetaminophen (Tylenol) Level 9.4 ug/mL (10.0-30.0); Salicylate 2.6 mg/dL (2.8-20.0)
[2021-07-12] MEDS: Ipratropium/Albuterol Sulfate 3 ML AMPUL.NEB INHALATION (20:48)
[2021-07-12 21:14] LABS: Potassium 2.8 mmol/L (3.5-5.1)
[2021-07-12 21:52] LABS: Urine Sodium 52 mmol/L (Not Establ.)
[2021-07-12 21:53] LABS: Partial Thromboplast Time 217.7 Seconds (24.1-36.2)
[2021-07-12 22:04] LABS: Amphetamine Urine VISTA NEGATIVE (<1000 ng/mL); Barbiturate Urine VISTA NEGATIVE (< 200 ng/mL); Benzodiazepine Urine VISTA NEGATIVE (< 200 ng/mL); Cocaine Urine VISTA NEGATIVE (< 300 ng/mL); Ecstacy Urine VISTA POSITIVE (< 500 ng/mL); Methadone Urine VISTA NEGATIVE (< 300 ng/mL); PCP Urine VISTA NEGATIVE (< 25 ng/mL); THC Urine VISTA NEGATIVE (< 50 ng/mL); Vista UDS pH Range 5
[2021-07-12 22:07] LABS: Lactic Acid 2.9 mmol/L (0.4-1.9)
--- NOTE | 2021-07-12 23:29 | PCS.PANDOC ---
PANDEMIC DOCUMENTATION INITIATED: Date: 06/21/2021 Time: 190
[2021-07-13] VITALS (12 sets, daily range): BP systolic 97–102; BP diastolic 51–60; PULSE 75–90; RESP 18–24; TEMP 36.6–37; O2SAT 95–100
[2021-07-13 00:01] LABS: Anion Gap 12 (5-15); BUN 28 mg/dL (7-18); BUN/Creat Ratio 17.3 RATIO (10-20); Calcium,Total 7.2 mg/dL (8.5-10.1); Chloride 117 mmol/L (98-107); Creatinine, Serum 1.62 mg/dL (0.55-1.02); EST Glomerular Filtration Rate 33 mL/min (>60); Est Glom Filt Rate - Afr Amer 40 mL/min (>60); Estimated Creatinine Clearance 23.73 ml/min; Glucose 127 mg/dL (74-106); Potassium 2.7 mmol/L (3.5-5.1); Sodium Level 140 mmol/L (136-145)
[2021-07-13] MEDS: Potassium Chloride 10mEq/100mL 10 MEQ/100 ML IV.SOLN. 100 MEQ IV BOLUS ×3 (00:48→08:32)
[2021-07-13 01:28] LABS: Reflex Lactate? Y
[2021-07-13] MEDS: MELATONIN 3 MG TABLET PO (02:06)
[2021-07-13] MEDS: Acetaminophen 325 MG Tablet 650 MG PO ×3 (02:06→15:14)
[2021-07-13 02:57] LABS: Lactic Acid 2.5 mmol/L (0.4-1.9)
[2021-07-13 06:31] LABS: Absolute Lymphocyte Count 1.53 X10^3/uL (0.83-4.51); Absolute Neutrophil Count 11.6 X10^3/uL (2.0-7.7); Basophil# 0.02 X10^3/uL; Basophil% 0.1 % (0-1); Eosinophil# 0.15 X10^3/uL; Hematocrit 32.9 % (37-47); Hemoglobin 10.8 g/dL (12.0-15.0); Lymphocyte # 1.53 X10^3/ul (0.83-4.51); Lymphocyte % 10.5 % (19-41); Mean Corp Hgb Conc 32.8 g/dL (32-36); Mean Corpuscular Hgb 28.5 pg (27.0-32.0); Mean Corpuscular Volume 86.8 fL (81-99); Mean Platelet Vol. 9.2 fl (6.2-12.0); Monocyte# 1.05 X10^3/uL; Monocyte% 7.2 % (0-10); NRBC Flagged by Analyzer 0 % (0-5); Neutrophil # 11.61 X10^3/uL (2.7-7.7); Neutrophil % 80.2 % (47-70); Platelet Count 186 K/mm3 (150-450); RBC Distribution Width CV 14.3 % (11.6-14.6); RBC Distribution Width SD 45.3 fl (35.1-43.9); Red Blood Count 3.79 M/mm3 (4.2-5.4); White Blood Count 14.5 K/mm3 (4.4-11.0)
[2021-07-13] MEDS: Ipratropium/Albuterol Sulfate 3 ML AMPUL.NEB INHALATION ×3 (06:55→19:43)
[2021-07-13 07:07] LABS: ALB/GLOB Ratio 0.4 RATIO (0.9-2.4); AST(SGOT) 13 U/L (15-37); Alanine Aminotransfer ALT/SGPT 20 U/L (13-56); Albumin, Serum 1.8 g/dL (3.2-5.0); Alkaline Phosphatase 112 U/L (45-117); Anion Gap 10 (5-15); BUN 22 mg/dL (7-18); BUN/Creat Ratio 16.3 RATIO (10-20); Calcium,Total 7.4 mg/dL (8.5-10.1); Chloride 117 mmol/L (98-107); Creatinine, Serum 1.35 mg/dL (0.55-1.02); EST Glomerular Filtration Rate 41 mL/min (>60); Est Glom Filt Rate - Afr Amer 49 mL/min (>60); Estimated Creatinine Clearance 28.48 ml/min; Globulin 4.2 g/dL (2.2-4.2); Glucose 96 mg/dL (74-106); Partial Thromboplast Time 65.6 Seconds (24.1-36.2); Potassium 2.9 mmol/L (3.5-5.1); Sodium Level 139 mmol/L (136-145)
--- NOTE | 2021-07-13 07:35 | CT_ITS ---
STUDY: CTA CHEST REASON FOR EXAM: Female, 75 years old. Elevated D dimer. Shortness of breath. COPD. History of lung cancer with chemotherapy and radiation therapy. RADIATION DOSAGE (If Supplied By Facility): CTDIvol = ( 5.11 ) mGy, DLP = ( 138.82 ) mGycm TECHNIQUE: The examination was performed with the intravenous administration of IV 100mL Isovue-370. Post-processing of the angiographic images was performed, with multiplanar reformation and 3D reconstruction. Individualized dose optimization techniques were used for this CT. COMPARISON: Comparison is made with prior study dated 05/07/2019. FINDINGS: Stable mild enlargement of the right lobe of the thyroid gland. Normal enhancement of the main pulmonary artery and right and left pulmonary arteries. Normal enhancement of the bilateral peripheral pulmonary arteries. There is no demonstrated pulmonary embolism. Normal thoracic aorta and visualized great vessels. There is no demonstrated aortic dissection. Normal heart and pericardium. Normal mediastinum. Normal hilar regions. Normal visualized trachea and bronchi. Stable volume loss in the right hemithorax most likely secondary to prior surgical intervention. Stable mild increased markings at the lung bases suggestive of scarring. The previously seen 1.4 cm nodule in the posterior aspect of the left upper lobe is not seen at this time. Normal pleura. Normal chest wall structures. There are degenerative changes of thoracic spine. Stable focal sclerosis in the T1 vertebral body. There are stable small bilateral nonobstructive intrarenal calculi. CT/CTA Chest W/WO Contrast IMPRESSION: Stable examination. No evidence of pulmonary embolism. Electronically Signed: Chriss Boateng MD at 9:20 EDT , Service support ,
[2021-07-13] MEDS: 0.9% Saline Lock 10 ML Syringe IV (08:32)
[2021-07-13] MEDS: Citalopram 40 MG TABLET PO (08:32)
[2021-07-13] MEDS: Levothyroxine 75 MCG Tablet PO (08:33)
[2021-07-13] MEDS: buPROPion (XL) 150 MG TABLET.XL PO (08:33)
--- NOTE | 2021-07-13 09:14 | PCM.CONS.GEN ---
Assessment & Plan Assessment/Plan (1) Hydronephrosis: PLAN: Continue antibiotics and supportive care Renal ultrasound now that Gallagher catheter is draining If the hydronephrosis has resolved and lab work continues to look good tomorrow, will plan for a trial of void with bladder scan PVR No plans for acute surgical intervention at this point (2) Acute pyelonephritis: (3) Kidney stones: HPI Consult Data Date of Consult: 07/13/21 HPI Narrative HPI Narrative: JOSE DE JESUS GOLD, is a 75 F who was admitted from the emergency department yesterday with acute urinary tract infection, bilateral hydronephrosis and acute renal insufficiency. She presented with complaints of several days of difficulty urinating and low back pain. She denies hematuria, dysuria. She has had decreased stream. After several days of the symptoms she began to develop shortness of breath and that is what brought her into the emergency room. Currently she is walking with her walker down the [place]. She has a Gallagher catheter draining clear yellow. She reports that her back pain has improved her breathing has improved and she has no pain currently. [facility] Medical History (Updated 07/13/21 @ 09:[address] Minal Morrison MD) Abdominal bloating Anxiety Chronic bronchitis COPD (chronic obstructive pulmonary disease) COPD exacerbation Decreased appetite Depression Filling defect on imaging study History of rectal cancer Hydronephrosis Hydronephrosis, right Hypothyroidism Lung cancer Nicotine abuse Rectal cancer 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 calculus TIA (transient ischemic attack) Home Medications bupropion HCl 150 mg 24 hr tablet, extended release 150 mg PO QAM 11/28/18 [History Last Taken 04/17/20 06:00] citalopram 40 mg PO DAILY 04/24/19 [History Last Taken 04/17/20 06:00] levothyroxine 75 mcg PO DAILY@0600 08/27/19 [History Last Taken 04/17/20 06:00] cyanocobalamin (vitamin B-12) 100 mcg IM Q30D 10/08/19 [History Last Taken 03/22/20] albuterol sulfate 90 mcg/actuation aerosol inhaler 2 puff INHALATION Q4H PRN #18 g 12/09/19 [Rx Last Taken Unknown] Allergy/AdvReac Type Severity Reaction Status Date / Time ciprofloxacin [From Cipro] Allergy Rash Verified 07/12/21 10:17 ciprofloxacin HCl Allergy Rash Verified 07/12/21 10:17 [From Cipro] Penicillins Allergy Hives Verified 07/12/21 10:17 codeine AdvReac makes her Verified 07/12/21 10:17 feel weird magnesium citrate AdvReac Nausea Verified 07/12/21 14:55 NSAIDS (Non-Steroidal AdvReac kidney Verified 07/12/21 10:17 Anti-Inflamma damage r/t long-term usage advised not to use Family History Father Heart disease Mother Heart disease Sister Heart disease Diabetes Surgical History History of bowel resection History of delivery History of cholecystectomy History of colonoscopy (~10/2019) History of colostomy History of hysterectomy History of hysterectomy Social History household members: none Smoking Status: Former smoker Tobacco: How many years used: 53 how long ago did patient quit smoking: Quit 2-5 years prior. second hand exposure: No alcohol intake: never substance use type: does not use caffeine: No what type of physical activity do you participate in: none ROS Constitutional Constitutional: Reports fatigue and weakness Eyes Eyes: Reports systems reviewed and no addt'l complaints, except as documented ENT HEENT: Reports systems reviewed and no addt'l complaints, except as documented Cardiovascular Cardiovascular: Reports dyspnea at rest; Denies chest pain Respiratory/Chest Respiratory/Chest: Reports dyspnea Gastrointestinal Gastrointestinal: Denies abdominal pain, nausea or vomiting Genitourinary Genitourinary: Reports difficulty urinating, urinary frequency, urinary hesitancy and urinary urgency Musculoskeletal Musculoskeletal: Reports systems reviewed and no addt'l complaints, except as documented Integumentary Integumentary: Reports systems reviewed and no addt'l complaints, except as documented Neurologic Neurologic: Reports systems reviewed and no addt'l complaints, except as documented Endocrine Endocrinology: Reports systems reviewed and no addt'l complaints, except as documented Physical Exam Const alert, oriented x3 and no apparent distress General Appearance: cooperative, comfortable, well kempt and well developed HEENT normocephalic and head/scalp atraumatic Eyes conjunctivae normal and no scleral icterus Neck supple General: normal visual inspection and trachea midline Lymph Lymphatic: no lymphedema noted Chest inspection of chest normal Chest: symmetrical chest wall rise Resp Effort and Inspection: able to speak in complete sentences and labored Cardio regular rate Narrative: Gallagher draining clear yellow urine Extremity normal to inspection Skin no rashes or lesions noted, no wounds and no jaundice Neuro oriented x3, CN's II-XII intact bilaterally and moves all extremities Psych mental status grossly normal, thought process normal and cooperative Lab / Micro Data Result Diagrams: 07/13/21 06:14 07/13/21 06:14 Labs: Laboratory Results - last 24 hr 07/12/21 10:55: WBC 19.9 H, RBC 4.26, Hgb 12.4, Hct 38.6, MCV 90.6, MCH 29.1, MCHC 32.1, RDW Std Deviation 47.5 H, RDW Coeff of Osmar 14.2, Plt Count 204, MPV 9.6, Immature Gran % (Auto) 2.500 H, Neut % (Auto) 87.2 H, Lymph % (Auto) 4.4 L, [place] % (Auto) 5.5, Eos % (Auto) 0.2, Baso % (Auto) 0.2, Absolute Neuts (auto) 17.3 H, Absolute Lymphs (auto) 0.87, Nucleated RBC % 0 07/12/21 10:55: D-Dimer Quant (PE/DVT) 4.12 H* 07/12/21 10:55: Sodium 137, Potassium 2.3 L*, Chloride 110 H, Carbon Dioxide 12.0 L, Anion Gap 15, BUN 37 H, Creatinine 2.23 H, Estim Creat Clear Calc 17.24, Est GFR (MDRD) Af Amer 28 L, Est GFR (MDRD) Non-Af 23 L, BUN/Creatinine Ratio 16.6, Glucose 104, Calcium 8.0 L, Total Bilirubin 0.50, AST 32, ALT 28, Alkaline Phosphatase 132 H, Troponin I High Sens 12, Total Protein 7.7, Albumin 2.6 L, Globulin 5.1 H, Albumin/Globulin Ratio 0.5 L 07/12/21 10:55: Magnesium 1.5 L 07/12/21 10:55: PT 17.4 H, INR 1.5, APTT 54.4 H 07/12/21 10:55: Phosphorus 4.3 07/12/21 11:25: Urine Color Yellow, Urine Clarity Cloudy, Urine pH 6.0, Ur Specific [place] 1.015, Urine Protein 100 H, Urine Glucose (UA) Normal, Urine Ketones Negative, Urine Occult Blood 150 H, Urine Nitrite Negative, Urine Bilirubin Negative, Urine Urobilinogen Normal, Ur Leukocyte Esterase 500 H, Urine RBC 5-10 SEEN, Urine WBC >100 SEEN, Ur Squamous Epith Cells 0 SEEN, Urine Bacteria 2+, Urine Mucus 0 SEEN 07/12/21 11:55: Lactic Acid 1.8 07/12/21 17:07: Procalcitonin > 50.00 H 07/12/21 17:07: Sodium 142, Potassium 2.9 L, Chloride 117 H, Carbon Dioxide 8.0 L*, Anion Gap 17 H, BUN 33 H, Creatinine 1.91 H, Estim Creat Clear Calc 20.13, Est GFR (MDRD) Af Amer 33 L, Est GFR (MDRD) Non-Af 27 L, BUN/Creatinine Ratio 17.3, Glucose 99, Calcium 7.5 L 07/12/21 19:28: Salicylates 2.6 L, Acetaminophen 9.4 L 07/12/21 19:28: Acetone Level NEGATIVE 07/12/21 19:28: Ethyl Alcohol 4.0 07/12/21 19:45: Lactic Acid Cancelled 07/12/21 19:45: Potassium 2.8 L 07/12/21 21:05: Urine Opiates Screen NEGATIVE, Urine Methadone Screen NEGATIVE, Ur Barbiturates Screen NEGATIVE, Ur Phencyclidine Scrn NEGATIVE, Ur Amphetamines Screen NEGATIVE, U Methamphetamin-MDMA POSITIVE H, U Benzodiazepines Scrn NEGATIVE, Urine Cocaine Screen NEGATIVE, U Cannabinoids Screen NEGATIVE, Ur Drug Screen Comment 07/12/21 21:05: Ur Random Sodium 52, Urine Creatinine 22.40 07/12/21 21:20: APTT 217.7 H* 07/12/21 21:20: Lactic Acid 2.9 H* 07/12/21 22:54: Sodium 140, Potassium 2.7 L*, Chloride 117 H, Carbon Dioxide 11.0 L, Anion Gap 12, BUN 28 H, Creatinine 1.62 H, Estim Creat Clear Calc 23.73, Est GFR (MDRD) Af Amer 40 L, Est GFR (MDRD) Non-Af 33 L, BUN/Creatinine Ratio 17.3, Glucose 127 H, Calcium 7.2 L 07/13/21 02:05: Lactic Acid 2.5 H* 07/13/21 06:14: WBC 14.5 H, RBC 3.79 L, Hgb 10.8 L, Hct 32.9 L, MCV 86.8, MCH 28.5, MCHC 32.8, RDW Std Deviation 45.3 H, RDW Coeff of Osmar 14.3, Plt Count 186, MPV 9.2, Immature Gran % (Auto) 1.000 H, Neut % (Auto) 80.2 H, Lymph % (Auto) 10.5 L, [place] % (Auto) 7.2, Eos % (Auto) 1.0, Baso % (Auto) 0.1, Absolute Neuts (auto) 11.6 H, Absolute Lymphs (auto) 1.53, Nucleated RBC % 0 07/13/21 06:14: Sodium 139, Potassium 2.9 L, Chloride 117 H, Carbon Dioxide 12.0 L, Anion Gap 10, BUN 22 H, Creatinine 1.35 H, Estim Creat Clear Calc 28.48, Est GFR (MDRD) Af Amer 49 L, Est GFR (MDRD) Non-Af 41 L, BUN/Creatinine Ratio 16.3, Glucose 96, Calcium 7.4 L, Magnesium 2.0, Total Bilirubin 0.30, AST 13 L, ALT 20, Alkaline Phosphatase 112, Total Protein 6.0 L, Albumin 1.8 L, Globulin 4.2, Albumin/Globulin Ratio 0.4 L 07/13/21 06:14: APTT 65.6 H 07/13/21 06:14: Magnesium Cancelled Micro: Microbiology 07/12/21 16:52 Mucosa - Nasopharyngeal Respiratory Panel (PCR) - Final Rhinovirus 07/12/21 11:50 Nasal Secretion SARS-CoV-2 Antigen (Rapid) - Final ABG Data ABG results: ABG 07/12/21 13:02 Specimen Type ART Sample Site R Radial pH 7.30 L Bicarbonate Actual 9.1 L Total CO2 10 Base Excess -17 L O2 Saturation 100 H ABG pCO2 18.4 L* ABG pO2 193 H Ramón Test Positive Crit Call To/Read Back Yes Radiology Impression Abdomen/Pelvis CT 07/12/21 10:38 IMPRESSION: Bilateral hydronephrosis and hydroureter with no obvious obstructing calyceal stones. There is some mild distention of the urinary bladder perhaps creating reflux. Possibility of edema from recently passed stones cannot be excluded. There are nonobstructing bilateral calyceal stones present. If indicated further evaluation with retrograde Polygram may be beneficial. Individualized dose optimization techniques were used for this CT. at 1157 Reported and signed by: Renny Laboy MD Electronically Signed: Renny Laboy MD at 11:56 EDT Tel , Service support , Chest X-Ray 07/12/21 10:56 IMPRESSION: Mild pulmonary hyperinflation with interstitial scarring. There is no acute pulmonary abnormality. at 1149 Reported and signed by: Renny Laboy MD Electronically Signed: Renny Laboy MD at 11:48 EDT Tel , Service support ,
--- NOTE | 2021-07-13 09:50 | NURSING ---
LATE ENTRY - 899 - POTASSIUM/NA BICARB PAUSED DUE TO IV LEAKING
--- NOTE | 2021-07-13 09:51 | NURSING ---
IV SITE RESTARTED - IVFS RESUMED. RATE OF K+ DECREASED DUE TO PT C/O BURNING @ SITE & ICE PACK PLACED FOR COMFORT.
[2021-07-13] MEDS: Ceftriaxone 1 GM/50 ML BAG IV (11:02)
--- NOTE | 2021-07-13 11:24 | CASEMGMT ---
Social Work Note Per joint special operations questions, pt has completed HCPOA and LW and provided documents to [facility]. SW reviewed chart, both HCPOA and LW are on file. SW printed off documents and placed on pt's chart. Geni Blair STERILE INSTRUMENT TECHNICIAN, SENIOR INTERNAL AUDITOR
--- NOTE | 2021-07-13 11:40 | CASEMGMT ---
RN CM Face to Face with patient for initial transition planning/care coordination assessment. RN CM introduced self and role at [facility]. Patient lying in bed, alert and oriented, daughter at bedside. Patient willing to participate in assessment and is able to answer all questions appropriately. Care providers, pharmacy, and demographics verified. Patient wishes to discharge home, denies need for home health at this time. Patient states she has no further needs or concerns at this time. CM to follow for discharge planning needs that may arise. PCP: Chi Specialists: Prince, urologist; Arianna, laboratory apparatus glass blower; Tom, light fixture servicer Preferred Pharmacy: [facility] Insurance: [facility], [facility] [place] Prescription Benefit: yes Living Will/HPOA: yes, daughter Jessica Johnson LNOK: daughters Living Arrangements: Patient lives alone in a single story duplex 2 steps to enter the home. Patient states she is independent at home. Transportation: daughters DME/HHC: Patient has shower chair, raised toilet, rollator, and home oxygen through [employer] with portability at 3 lpm. Patient states she has had HHC in the past but could not recall company. Disposition Plan: Patient to discharge home with family support and follow-up plans in place. Will monitor for need for HHC. Geni ACE, RN, CM
[2021-07-13] MEDS: Potassium Chloride 10mEq/100mL 10 MEQ/100 ML IV.SOLN. 75 MEQ IV BOLUS ×2 (12:03→13:21)
--- NOTE | 2021-07-13 12:33 | CON.PCM.RE_ITS ---
Assessment & Plan Assessment/Plan (1) Acute kidney injury: PLAN: due to dehydration, severe chronic gi loss. creatinine improved from 2.23 TO 1.35 with iv hydration. Baseline creatitnine 1.0 (2) Bilateral ureteral calculi: PLAN: enc fluids (3) Hydronephrosis due to obstruction of ureter: PLAN: gu consulted (4) Metabolic acidosis: PLAN: Anion gap due to renal failure, chronic diarrhea. Need to continue bicarb supplement on discharge. SUGGEST baking soda 1 TSP daily (5) Acute hypokalemia: PLAN: due to poor absorption, poor dietary intake. Continue supplements (6) COPD (chronic obstructive pulmonary disease): PLAN: tobacco use hx (7) Cancer of left lung parenchyma: PLAN: S/P left lung resection (8) Nicotine dependence, cigarettes, in remission: (9) Rectal cancer: PLAN: S/P ostomy (10) History of colostomy: (11) Hypomagnesemia: PLAN: due to chronic diarrhea, need replacement on discharge HPI Consult Data Date of Consult: 07/13/21 HPI Narrative HPI Narrative: JOSE DE JESUS GOLD, is a 75 F who presents to [facility] ER yesterday with complaints of generalized weakness, back pain, poor urine output. She has not been feeling well past 2 weeks. She is currently treated for pyelonephritis on antibx. She has a history of kidney stones followed by Dr. Morrison. On admit her Creatinine was elevated at 2.23 improved to 1.35 with iv hydration. Potassium low at 2.7, mg 1.5 both replaced. bicarbonate low at 8 with ag metabolic acidosis started on bicarb drip. WBC elevated at 14K with UA showing leuk esterase 500, WBC >100, RBC 5-10, 2+ bacteria. She denies gross hematuria. She has a history of rectal CA S/P colostomy with chronic watery stools. she has not been taking her bicarb tablets or potassium supplements. Appetite has been poor. She has copd, Hx Lung CA s/p partial resection, tobacco use, alcohol use. Urine tox showed methamphetamines, alcohol, acetaminophen, salicylates. Chest x- ray with mild pulmonary hyperinflation with interstitial scarring with no acute cardiopulmonary finding otherwise, CT abdomen pelvis with bilateral hydronephrosis and hydroureter with no obvious obstructing calyceal stones, mild distention urinary bladder, edema from recently passed stones cannot be excluded, nonobstructing bilateral calyceal stones present. [facility] Medical History (Updated 07/13/21 @ 17:[address] Gali Wiley DO) Abdominal bloating Anxiety Chronic bronchitis COPD (chronic obstructive pulmonary disease) COPD exacerbation Decreased appetite Depression Filling defect on imaging study History of rectal cancer Hydronephrosis Hydronephrosis, right Hypothyroidism Lung cancer Nicotine abuse Rectal cancer 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 calculus TIA (transient ischemic attack) Home Medications bupropion HCl 150 mg 24 hr tablet, extended release 150 mg PO QAM 11/28/18 [History Last Taken 04/17/20 06:00] citalopram 40 mg PO DAILY 04/24/19 [History Last Taken 04/17/20 06:00] levothyroxine 75 mcg PO DAILY@0600 08/27/19 [History Last Taken 04/17/20 06:00] cyanocobalamin (vitamin B-12) 100 mcg IM Q30D 10/08/19 [History Last Taken 03/22/20] albuterol sulfate 90 mcg/actuation aerosol inhaler 2 puff INHALATION Q4H PRN #18 g 12/09/19 [Rx Last Taken Unknown] Allergy/AdvReac Type Severity Reaction Status Date / Time ciprofloxacin [From Cipro] Allergy Rash Verified 07/12/21 10:17 ciprofloxacin HCl Allergy Rash Verified 07/12/21 10:17 [From Cipro] Penicillins Allergy Hives Verified 07/12/21 10:17 codeine AdvReac makes her Verified 07/12/21 10:17 feel weird magnesium citrate AdvReac Nausea Verified 07/12/21 14:55 NSAIDS (Non-Steroidal AdvReac kidney Verified 07/12/21 10:17 Anti-Inflamma damage r/t long-term usage advised not to use Family History Father Heart disease Mother Heart disease Sister Heart disease Diabetes Surgical History History of bowel resection History of delivery History of cholecystectomy History of colonoscopy (~10/2019) History of colostomy History of hysterectomy History of hysterectomy Social History household members: none Smoking Status: Former smoker Tobacco: How many years used: 53 how long ago did patient quit smoking: Quit 2-5 years prior. second hand exposure: No alcohol intake: never substance use type: does not use caffeine: No what type of physical activity do you participate in: none ROS Constitutional Constitutional: Reports malaise and weakness; Denies chills or fever(s) Eyes Eyes: Denies blurry vision ENT HEENT: Reports dry mouth Cardiovascular Cardiovascular: Denies chest pain Respiratory/Chest Respiratory/Chest: Denies dyspnea on exertion or shortness of breath at rest Gastrointestinal Gastrointestinal: Reports anorexia, diarrhea, nausea and weight changes; Denies hematochezia, melena, rectal bleeding or vomiting Genitourinary Genitourinary: Reports difficulty urinating, flank pain and other Details: decreased urine volume ; Denies hematuria Musculoskeletal Musculoskeletal: Reports other Details: GEN WEAKNESS ; Denies muscle cramps or tremors Neurologic Neurologic: Reports weakness Psychiatric Psychiatric: Reports anxiety Hematologic/Lymphatic Hematologic/Lymphatic: Reports anemia Physical Exam Const alert, oriented x3 and no apparent distress HEENT normocephalic Resp clear to auscultation bilaterally Auscultation: diminished lung sounds Cardio regular rate and no rub GI non-distended GI Narrative: OSTOMY WITH LARGE LIQUID STOOL Palpation: soft no CVA tenderness Bladder / Kidney Exam: catheter in place Extremity full ROM and no clubbing, cyanosis or edema Skin no wounds Neuro Sensorium / Orientation: awake and alert Psych cooperative Lab / Micro Data Result Diagrams: 07/13/21 06:14 07/13/21 06:14 Labs: Laboratory Results - last 24 hr 07/12/21 10:55: PT 17.4 H, INR 1.5, APTT 54.4 H 07/12/21 10:55: Phosphorus 4.3 07/12/21 17:07: Procalcitonin > 50.00 H 07/12/21 17:07: Sodium 142, Potassium 2.9 L, Chloride 117 H, Carbon Dioxide 8.0 L*, Anion Gap 17 H, BUN 33 H, Creatinine 1.91 H, Estim Creat Clear Calc 20.13, Est GFR (MDRD) Af Amer 33 L, Est GFR (MDRD) Non-Af 27 L, BUN/Creatinine Ratio 17.3, Glucose 99, Calcium 7.5 L 07/12/21 19:28: Salicylates 2.6 L, Acetaminophen 9.4 L 07/12/21 19:28: Acetone Level NEGATIVE 07/12/21 19:28: Ethyl Alcohol 4.0 07/12/21 19:45: Lactic Acid Cancelled 07/12/21 19:45: Potassium 2.8 L 07/12/21 21:05: Urine Opiates Screen NEGATIVE, Urine Methadone Screen NEGATIVE, Ur Barbiturates Screen NEGATIVE, Ur Phencyclidine Scrn NEGATIVE, Ur Amphetamines Screen NEGATIVE, U Methamphetamin-MDMA POSITIVE H, U Benzodiazepines Scrn NEGATIVE, Urine Cocaine Screen NEGATIVE, U Cannabinoids Screen NEGATIVE, Ur Drug Screen Comment 07/12/21 21:05: Ur Random Sodium 52, Urine Creatinine 22.40 07/12/21 21:20: APTT 217.7 H* 07/12/21 21:20: Lactic Acid 2.9 H* 07/12/21 22:54: Sodium 140, Potassium 2.7 L*, Chloride 117 H, Carbon Dioxide 11.0 L, Anion Gap 12, BUN 28 H, Creatinine 1.62 H, Estim Creat Clear Calc 23.73, Est GFR (MDRD) Af Amer 40 L, Est GFR (MDRD) Non-Af 33 L, BUN/Creatinine Ratio 17.3, Glucose 127 H, Calcium 7.2 L 07/13/21 02:05: Lactic Acid 2.5 H* 07/13/21 06:14: WBC 14.5 H, RBC 3.79 L, Hgb 10.8 L, Hct 32.9 L, MCV 86.8, MCH 28.5, MCHC 32.8, RDW Std Deviation 45.3 H, RDW Coeff of Osmar 14.3, Plt Count 186, MPV 9.2, Immature Gran % (Auto) 1.000 H, Neut % (Auto) 80.2 H, Lymph % (Auto) 10.5 L, [place] % (Auto) 7.2, Eos % (Auto) 1.0, Baso % (Auto) 0.1, Absolute Neuts (auto) 11.6 H, Absolute Lymphs (auto) 1.53, Nucleated RBC % 0 07/13/21 06:14: Sodium 139, Potassium 2.9 L, Chloride 117 H, Carbon Dioxide 12.0 L, Anion Gap 10, BUN 22 H, Creatinine 1.35 H, Estim Creat Clear Calc 28.48, Est GFR (MDRD) Af Amer 49 L, Est GFR (MDRD) Non-Af 41 L, BUN/Creatinine Ratio 16.3, Glucose 96, Calcium 7.4 L, Magnesium 2.0, Total Bilirubin 0.30, AST 13 L, ALT 20, Alkaline Phosphatase 112, Total Protein 6.0 L, Albumin 1.8 L, Globulin 4.2, Albumin/Globulin Ratio 0.4 L 07/13/21 06:14: APTT 65.6 H 07/13/21 06:14: Magnesium Cancelled Micro: Microbiology 07/12/21 11:50 Nasal Secretion SARS-CoV-2 Antigen (Rapid) - Final 07/12/21 11:25 Urine, Clean Catch Urine Culture - Preliminary GNR Poss Pseudomonas sp 07/12/21 16:52 Mucosa - Nasopharyngeal Respiratory Panel (PCR) - Final Rhinovirus ABG Data ABG results: ABG 07/12/21 13:02 Specimen Type ART Sample Site R Radial pH 7.30 L Bicarbonate Actual 9.1 L Total CO2 10 Base Excess -17 L O2 Saturation 100 H ABG pCO2 18.4 L* ABG pO2 193 H Ramón Test Positive Crit Call To/Read Back Yes Radiology Impression Chest CTA 07/13/21 07:35 IMPRESSION: Stable examination. No evidence of pulmonary embolism. Electronically Signed: Chriss Boateng MD at 9:20 EDT , Service support ,
[2021-07-13 13:30] LABS: Partial Thromboplast Time 71.4 Seconds (24.1-36.2)
[2021-07-13] MEDS: Potassium Chloride 10mEq/100mL 10 MEQ/100 ML IV.SOLN. 50 MEQ IV BOLUS (15:47)
--- NOTE | 2021-07-13 17:06 | PN.HOSP_ITS ---
Subjective Subjective Patient seen and examined. She was admitted with a complaint of lower back pain and suprapubic discomfort. She has a history of kidney stones. Symptoms were thought to be due to kidney stone so she came into the ED. On admission, she was found to be hypokalemic with potassium of 2.3 and bicarb was 12 and lactic a ashley 1.8 as well as magnesium of 1.5. Urinalysis showed evidence of UTI with 3+ bacteria. CT of the abdomen and pelvis showed bilateral hydronephrosis and hydroureter with no obvious obstructing calyceal stones and mild distention of the urinary bladder creating reflux with possibility of edema from recently passed stones could not be excluded. She has been managed for hypokalemia, hypomagnesemia UTI as well as hydronephrosis. Patient seen and examined. She was very frail but had no active complaints and says felt much better than she did when she came in. Review of systems otherwise negative. Labs and vitals reviewed. Objective Data Objective Data Vital Signs: Vital Signs Temp Pulse Resp BP Pulse Ox 98.6 F 89 24 H 100/60 100 07/13/21 12:30 07/13/21 14:00 07/13/21 13:38 07/13/21 12:30 07/13/21 12:30 Oxygen Delivery Method Room Air Weight: 114 lb 4.8 oz Body Mass Index (BMI) 21.2 Intake & Output: Intake and Output for Last 24 Hours 07/11/21 07/12/21 07/13/21 23:59 23:59 23:59 Intake Total 3329.40 / 3329.40 2569.92 / 2569.92 Output Total 1875 / 1875 1550 / 1550 Balance 1454.40 / 1454.40 1019.92 / 1019.92 Lab / Micro Data Result Diagrams: 07/13/21 06:14 07/13/21 06:14 Labs: Laboratory Results - last 24 hr 07/12/21 10:55: Phosphorus 4.3 07/12/21 17:07: Procalcitonin > 50.00 H 07/12/21 17:07: Sodium 142, Potassium 2.9 L, Chloride 117 H, Carbon Dioxide 8.0 L*, Anion Gap 17 H, BUN 33 H, Creatinine 1.91 H, Estim Creat Clear Calc 20.13, Est GFR (MDRD) Af Amer 33 L, Est GFR (MDRD) Non-Af 27 L, BUN/Creatinine Ratio 17.3, Glucose 99, Calcium 7.5 L 07/12/21 19:28: Salicylates 2.6 L, Acetaminophen 9.4 L 07/12/21 19:28: Acetone Level NEGATIVE 07/12/21 19:28: Ethyl Alcohol 4.0 07/12/21 19:45: Lactic Acid Cancelled 07/12/21 19:45: Potassium 2.8 L 07/12/21 21:05: Urine Opiates Screen NEGATIVE, Urine Methadone Screen NEGATIVE, Ur Barbiturates Screen NEGATIVE, Ur Phencyclidine Scrn NEGATIVE, Ur Amphetamines Screen NEGATIVE, U Methamphetamin-MDMA POSITIVE H, U Benzodiazepines Scrn NEGATIVE, Urine Cocaine Screen NEGATIVE, U Cannabinoids Screen NEGATIVE, Ur Drug Screen Comment 07/12/21 21:05: Ur Random Sodium 52, Urine Creatinine 22.40 07/12/21 21:20: APTT 217.7 H* 07/12/21 21:20: Lactic Acid 2.9 H* 07/12/21 22:54: Sodium 140, Potassium 2.7 L*, Chloride 117 H, Carbon Dioxide 11.0 L, Anion Gap 12, BUN 28 H, Creatinine 1.62 H, Estim Creat Clear Calc 23.73, Est GFR (MDRD) Af Amer 40 L, Est GFR (MDRD) Non-Af 33 L, BUN/Creatinine Ratio 17.3, Glucose 127 H, Calcium 7.2 L 07/13/21 02:05: Lactic Acid 2.5 H* 07/13/21 06:14: WBC 14.5 H, RBC 3.79 L, Hgb 10.8 L, Hct 32.9 L, MCV 86.8, MCH 28.5, MCHC 32.8, RDW Std Deviation 45.3 H, RDW Coeff of Osmar 14.3, Plt Count 186, MPV 9.2, Immature Gran % (Auto) 1.000 H, Neut % (Auto) 80.2 H, Lymph % (Auto) 10.5 L, [place] % (Auto) 7.2, Eos % (Auto) 1.0, Baso % (Auto) 0.1, Absolute Neuts (auto) 11.6 H, Absolute Lymphs (auto) 1.53, Nucleated RBC % 0 07/13/21 06:14: Sodium 139, Potassium 2.9 L, Chloride 117 H, Carbon Dioxide 12.0 L, Anion Gap 10, BUN 22 H, Creatinine 1.35 H, Estim Creat Clear Calc 28.48, Est GFR (MDRD) Af Amer 49 L, Est GFR (MDRD) Non-Af 41 L, BUN/Creatinine Ratio 16.3, Glucose 96, Calcium 7.4 L, Magnesium 2.0, Total Bilirubin 0.30, AST 13 L, ALT 20, Alkaline Phosphatase 112, Total Protein 6.0 L, Albumin 1.8 L, Globulin 4.2, Albumin/Globulin Ratio 0.4 L 07/13/21 06:14: APTT 65.6 H 07/13/21 06:14: Magnesium Cancelled 07/13/21 13:12: APTT 71.4 H Micro: Microbiology 07/12/21 11:50 Nasal Secretion SARS-CoV-2 Antigen (Rapid) - Final 07/12/21 11:25 Urine, Clean Catch Urine Culture - Preliminary GNR Poss Pseudomonas sp 07/12/21 16:52 Mucosa - Nasopharyngeal Respiratory Panel (PCR) - Final Rhinovirus Radiography Diagnostic Testing: Radiology Impression Venous Doppler Study 07/12/21 14:19 Interpretation Summary No evidence for acute deep venous thrombosis bilateral lower extremities with patent and compressible bilateral great saphenous veins. Ordering Physician: Patrica Lindsey Performed By: Chino Bradley, RVT Chest CTA 07/13/21 07:35 IMPRESSION: Stable examination. No evidence of pulmonary embolism. Electronically Signed: Chriss Boateng MD at 9:20 EDT , Service support , Physical Exam Const alert and oriented x3 Orientation / Consciousness: lethargic Exam Limitations: no limitations Nutritional Appearance: underweight HEENT head/scalp atraumatic and moist oral mucous membranes Head and Scalp: normocephalic Eyes PERRL, EOMs intact bilaterally and conjunctivae normal Neck no lymphadenopathy Resp normal respiratory effort, no retractions, no use of accessory muscles and clear to auscultation bilaterally Cardio regular rate, regular rhythm, S1 normal heart sound, S2 normal heart sound and no murmurs GI normal to inspection, nondistended, normoactive bowel sounds, soft to palpation, non-tender and non-distended Extremity normal to inspection, full ROM and no clubbing, cyanosis or edema Peripheral Pulses: Yes pulses 2+ throughout Neuro oriented x3, CN's II-XII intact bilaterally and moves all extremities Sensorium / Orientation: awake and alert Psych affect normal Assessment & Plan Assessment/Plan (1) Hydronephrosis: (2) Acute kidney injury: (3) Urinary tract infection: QUALIFIERS: Urinary tract infection type: acute pyelonephritis Qualified Code(s): N10 - Acute pyelonephritis PLAN: #Acute pyelonephritis * Patient feels much better today. Urine cultures and blood cultures pending. Currently on IV Rocephin. * Been gently hydrated with IV fluids. * Will monitor. * #Bilateral hydronephrosis and hydroureter * Concern is for recently passed stones. Urology consulted. * Patient be hydrated with IV fluids. Monitor urine output. Will monitor urine for passage of stones. * #TOMÁS on CKD stage III: * Likely postobstructive due to bilateral hydronephrosis. * Baseline creatinine is around 1. We will continue hydration and hold nephrotoxic medication. * Cr is down to 1.3 today #Hypokalemia and hypomagnesemia: Potassium is 2.9 today. Will replace and trend. Hypomagnesemia has resolved. #Elevated D-dimer: * Was initially started on heparin drip but she could not have CTA due to elevated D-dimer. Creatinine has trended down and CTA done today was negative for any PE. * #Non-anion gap metabolic acidosis * Likely due to TOMÁS on CKD stage III * Bicarb today is 12. Anion gap is 10. * Nephrology consulted. Await recs. * DVT prophylaxis: heparin drip discontinued. Start on lovenox 30mg daily. Charges/Coding Visit Charges Inpatient E&M: 02011 Subs Hosp L3
--- NOTE | 2021-07-13 17:56 | NURSING ---
IV POTASSIUM TOOK LONGER DUE TO HAVING TO ADJUST RATE - PT C/O PAIN @ IV SITE THROUGH WHOLE INFUSION
[2021-07-13 20:17] LABS: Anion Gap 8 (5-15); BUN 14 mg/dL (7-18); BUN/Creat Ratio 11.3 RATIO (10-20); Calcium,Total 7.2 mg/dL (8.5-10.1); Chloride 115 mmol/L (98-107); Creatinine, Serum 1.24 mg/dL (0.55-1.02); EST Glomerular Filtration Rate 45 mL/min (>60); Est Glom Filt Rate - Afr Amer 54 mL/min (>60); Glucose 105 mg/dL (74-106); Potassium 3.1 mmol/L (3.5-5.1); Sodium Level 141 mmol/L (136-145)
[2021-07-14] VITALS (12 sets, daily range): BP systolic 91–101; BP diastolic 50–62; PULSE 80–88; RESP 16–21; TEMP 36.9–38; O2SAT 93–96
[2021-07-14] MEDS: Acetaminophen 325 MG Tablet 650 MG PO (05:14)
[2021-07-14] MEDS: 0.9% Saline Lock 10 ML Syringe IV ×2 (05:15→09:55)
[2021-07-14] MEDS: Ipratropium/Albuterol Sulfate 3 ML AMPUL.NEB INHALATION ×2 (06:48→19:30)
[2021-07-14 07:24] LABS: Albumin, Serum 1.8 g/dL (3.2-5.0); BUN 9 mg/dL (7-18); Calcium,Total 7.4 mg/dL (8.5-10.1); Chloride 110 mmol/L (98-107); EST Glomerular Filtration Rate 57 mL/min (>60); Est Glom Filt Rate - Afr Amer 69 mL/min (>60); Estimated Creatinine Clearance 38.44 ml/min; Glucose 103 mg/dL (74-106); Phosphorus 1.2 mg/dL (2.5-4.9); Potassium 2.7 mmol/L (3.5-5.1); Sodium Level 139 mmol/L (136-145)
[2021-07-14 08:21] LABS: Absolute Lymphocyte Count 1.94 X10^3/uL (0.83-4.51); Absolute Neutrophil Count 10.9 X10^3/uL (2.0-7.7); Basophil# 0.02 X10^3/uL; Basophil% 0.1 % (0-1); Eosinophil# 0.11 X10^3/uL; Eosinophils% 0.8 % (0-5); Hematocrit 30.1 % (37-47); Hemoglobin 10.1 g/dL (12.0-15.0); Lymphocyte # 1.94 X10^3/ul (0.83-4.51); Lymphocyte % 13.4 % (19-41); Mean Corp Hgb Conc 33.6 g/dL (32-36); Mean Corpuscular Volume 86.5 fL (81-99); NRBC Flagged by Analyzer 0 % (0-5); Neutrophil # 10.93 X10^3/uL (2.7-7.7); Neutrophil % 75.8 % (47-70); Platelet Count 203 K/mm3 (150-450); RBC Distribution Width CV 14.4 % (11.6-14.6); RBC Distribution Width SD 45.6 fl (35.1-43.9); Red Blood Count 3.48 M/mm3 (4.2-5.4); White Blood Count 14.4 K/mm3 (4.4-11.0)
--- NOTE | 2021-07-14 08:54 | PN.RENAL_ITS ---
Subjective Subjective felt lightheaded. Potassium remains low, being replaced Objective Data Objective Data Vital Signs: Vital Signs Temp Pulse Resp BP Pulse Ox 98.9 F 82 18 91/56 L 94 07/14/21 06:30 07/14/21 06:30 07/14/21 06:48 07/14/21 06:30 07/14/21 06:48 Oxygen Delivery Method Room Air Weight: 59.1 kg Body Mass Index (BMI) 21.2 Intake & Output: Intake and Output for Last 24 Hours 07/12/21 07/13/21 07/14/21 23:59 23:59 23:59 Intake Total 3329.40 / 3329.40 4393.59 / 4393.59 1026.67 / 1026.67 Output Total 1875 / 1875 3550 / 4400 1874 / 187 Balance 1454.40 / 1454.40 843.59 / -6.41 -848.33 / -848.33 Lab / Micro Data Result Diagrams: 07/14/21 05:45 07/14/21 05:45 Labs: Laboratory Results - last 24 hr 07/13/21 13:12: APTT 71.4 H 07/13/21 19:16: Sodium 141, Potassium 3.1 L, Chloride 115 H, Carbon Dioxide 18.0 L, Anion Gap 8, BUN 14, Creatinine 1.24 H, Estim Creat Clear Calc 31.00, Est GFR (MDRD) Af Amer 54 L, Est GFR (MDRD) Non-Af 45 L, BUN/Creatinine Ratio 11.3, Glucose 105, Calcium 7.2 L 07/14/21 05:45: Sodium 139, Potassium 2.7 L*, Chloride 110 H, Carbon Dioxide 21.0, BUN 9, Creatinine 1.00, Estim Creat Clear Calc 38.44, Est GFR (MDRD) Af Amer 69, Est GFR (MDRD) Non-Af 57 L, BUN/Creatinine Ratio 9.0 L, Glucose 103, Calcium 7.4 L, Phosphorus 1.2 L, Albumin 1.8 L 07/14/21 05:45: WBC 14.4 H, RBC 3.48 L, Hgb 10.1 L, Hct 30.1 L, MCV 86.5, MCH 29.0, MCHC 33.6, RDW Std Deviation 45.6 H, RDW Coeff of Osmar 14.4, Plt Count 203, MPV 10.0, Immature Gran % (Auto) 0.900, Neut % (Auto) 75.8 H, Lymph % (Auto) 13.4 L, [place] % (Auto) 9.0, Eos % (Auto) 0.8, Baso % (Auto) 0.1, Absolute Neuts (auto) 10.9 H, Absolute Lymphs (auto) 1.94, Nucleated RBC % 0 Micro: Microbiology 07/12/21 11:25 Urine, Clean Catch Urine Culture - Final Pseudomonas aeroginosa 07/12/21 11:50 Nasal Secretion SARS-CoV-2 Antigen (Rapid) - Final 07/12/21 16:52 Mucosa - Nasopharyngeal Respiratory Panel (PCR) - Final Rhinovirus Radiography Diagnostic Testing: Radiology Impression Venous Doppler Study 07/12/21 14:19 Interpretation Summary No evidence for acute deep venous thrombosis bilateral lower extremities with patent and compressible bilateral great saphenous veins. Ordering Physician: Patrica Lindsey Performed By: Chino Bradley [place] Chest CTA 07/13/21 07:35 IMPRESSION: Stable examination. No evidence of pulmonary embolism. Electronically Signed: Chriss Boateng MD at 9:20 EDT , Service support , Physical Exam Const alert and oriented x3 Resp clear to auscultation bilaterally Cardio Cardio Narrative: irregular GI non-tender and non-distended GI Narrative: ostomy Palpation: soft Extremity no clubbing, cyanosis or edema Assessment & Plan Assessment/Plan (1) Acute kidney injury: PLAN: due to dehydration, severe chronic gi loss. creatinine improved. Follow up in office in 2 wks with bmp (2) Bilateral ureteral calculi: PLAN: enc fluids (3) Hydronephrosis due to obstruction of ureter: PLAN: gu consulted (4) Metabolic acidosis: PLAN: Anion gap due to renal failure, chronic diarrhea. Need to continue bicarb supplement on discharge. SUGGEST baking soda 1 TSP daily (5) Acute hypokalemia: PLAN: due to poor absorption, poor dietary intake. Continue replacement (6) COPD (chronic obstructive pulmonary disease): PLAN: tobacco use hx (7) Cancer of left lung parenchyma: PLAN: S/P left lung resection (8) Nicotine dependence, cigarettes, in remission: (9) Rectal cancer: PLAN: S/P ostomy (10) History of colostomy: (11) Hypomagnesemia: PLAN: due to chronic diarrhea, need replacement on discharge
[2021-07-14] MEDS: buPROPion (XL) 150 MG TABLET.XL PO (09:54)
[2021-07-14] MEDS: Sodium Bicarbonate 650 MG Tablet PO ×4 (09:54→21:42)
[2021-07-14] MEDS: Citalopram 40 MG TABLET PO (09:54)
[2021-07-14] MEDS: Levothyroxine 75 MCG Tablet PO (09:54)
[2021-07-14] MEDS: Potassium Chloride Oral Tablet 20 MEQ 40 MEQ PO (09:54)
[2021-07-14] MEDS: Enoxaparin 30 MG/0.3 ML Syringe SC (09:54)
[2021-07-14] MEDS: Ceftriaxone 1 GM/50 ML BAG IV (09:55)
--- NOTE | 2021-07-14 10:10 | US_ITS ---
STUDY: RENAL ULTRASOUND - COMPLETE REASON FOR EXAM: Female, 75 years old. Bilateral hydronephrosis, please perform 07/14/2021 -- now with Poley TECHNIQUE: Ultrasound evaluation of the kidneys was performed with real-time and static munoz-scale imaging. COMPARISON: Comparison is made with prior ultrasound dated 05/29/2019. FINDINGS: RIGHT KIDNEY: Normal location of the right kidney, which is normal in size. The right kidney measures 10.8 cm x 4.9 cm x 5.7 cm. There is a normal cortex of the right kidney. The renal cortex measures 1.5 cm. There is no right renal mass or cyst. Multiple tiny right nonobstructing intrarenal calculi. There is no right hydronephrosis. DISTAL RIGHT URETER: There is non-visualization of the distal right ureter. There is no demonstrated right ureterovesical junction calculus. There is no demonstrated right ureteral jet. LEFT KIDNEY: Normal location of the left kidney, which is normal in size. The left kidney measures 9.3 cm x 4.8 cm x 4.8 cm. There is a normal cortex of the left kidney. The renal cortex measures 1.1 cm. There is no left renal mass or cyst. Multiple tiny nonobstructive intrarenal calculi. There is no left hydronephrosis. DISTAL LEFT URETER: There is non-visualization of the distal left ureter. There is no demonstrated left ureterovesical junction calculus. There is no demonstrated left ureteral jet. BLADDER: A DOAN catheter is seen within the decompressed urinary bladder. US/Kidney and Bladder IMPRESSION: Multiple small bilateral nonobstructive intrarenal calculi. Electronically Signed: Chriss Boateng MD at 14:17 EDT , Service support ,
[2021-07-14] MEDS: Potassium Chloride 10mEq/100mL 10 MEQ/100 ML IV.SOLN. 100 MEQ IV BOLUS ×4 (11:07→15:12)
--- NOTE | 2021-07-14 11:30 | PN.HOSP_ITS ---
Subjective Subjective Patient seen and examined. She complains of feeling weak and tired. She says she is having a lot of output from her colostomy but thinks it is the same amount she usually does have. She denies any fever or chills, nausea vomiting. Review of systems otherwise negative. Potassium is down to 2.9 today WBC is 14.4 with hemoglobin of 10.1. Objective Data Objective Data Vital Signs: Vital Signs Temp Pulse Resp BP Pulse Ox 98.9 F 82 18 91/56 L 94 07/14/21 06:30 07/14/21 06:30 07/14/21 06:48 07/14/21 06:30 07/14/21 06:48 Oxygen Delivery Method Room Air Weight: 130 lb 4.691 oz Body Mass Index (BMI) 21.2 Intake & Output: Intake and Output for Last 24 Hours 07/12/21 07/13/21 07/14/21 23:59 23:59 23:59 Intake Total 3329.40 / 3329.40 4393.59 / 4393.59 1521.67 / 1521.67 Output Total 1875 / 1875 3550 / 4400 1875 / 1875 Balance 1454.40 / 1454.40 843.59 / -6.41 -353.33 / -353.33 Lab / Micro Data Result Diagrams: 07/14/21 05:45 07/14/21 05:45 Labs: Laboratory Results - last 24 hr 07/13/21 13:12: APTT 71.4 H 07/13/21 19:16: Sodium 141, Potassium 3.1 L, Chloride 115 H, Carbon Dioxide 18.0 L, Anion Gap 8, BUN 14, Creatinine 1.24 H, Estim Creat Clear Calc 31.00, Est GFR (MDRD) Af Amer 54 L, Est GFR (MDRD) Non-Af 45 L, BUN/Creatinine Ratio 11.3, Glucose 105, Calcium 7.2 L 07/14/21 05:45: Sodium 139, Potassium 2.7 L*, Chloride 110 H, Carbon Dioxide 21.0, BUN 9, Creatinine 1.00, Estim Creat Clear Calc 38.44, Est GFR (MDRD) Af Amer 69, Est GFR (MDRD) Non-Af 57 L, BUN/Creatinine Ratio 9.0 L, Glucose 103, Calcium 7.4 L, Phosphorus 1.2 L, Albumin 1.8 L 07/14/21 05:45: WBC 14.4 H, RBC 3.48 L, Hgb 10.1 L, Hct 30.1 L, MCV 86.5, MCH 29.0, MCHC 33.6, RDW Std Deviation 45.6 H, RDW Coeff of Osmar 14.4, Plt Count 203, MPV 10.0, Immature Gran % (Auto) 0.900, Neut % (Auto) 75.8 H, Lymph % (Auto) 13.4 L, [place] % (Auto) 9.0, Eos % (Auto) 0.8, Baso % (Auto) 0.1, Absolute Neuts (auto) 10.9 H, Absolute Lymphs (auto) 1.94, Nucleated RBC % 0 Micro: Microbiology 07/12/21 11:25 Urine, Clean Catch Urine Culture - Final Pseudomonas aeroginosa 07/12/21 11:50 Nasal Secretion SARS-CoV-2 Antigen (Rapid) - Final 07/12/21 16:52 Mucosa - Nasopharyngeal Respiratory Panel (PCR) - Final Rhinovirus Radiography Diagnostic Testing: Radiology Impression Venous Doppler Study 07/12/21 14:19 Interpretation Summary No evidence for acute deep venous thrombosis bilateral lower extremities with patent and compressible bilateral great saphenous veins. Ordering Physician: Patrica Lindsey Performed By: Chino Bradley RVEden Physical Exam Const alert and oriented x3 Orientation / Consciousness: lethargic Exam Limitations: no limitations Nutritional Appearance: underweight HEENT head/scalp atraumatic and moist oral mucous membranes Head and Scalp: normocephalic Eyes PERRL, EOMs intact bilaterally and conjunctivae normal Neck no lymphadenopathy Resp normal respiratory effort, no retractions, no use of accessory muscles and clear to auscultation bilaterally Cardio regular rate, regular rhythm, S1 normal heart sound, S2 normal heart sound and no murmurs GI normal to inspection, nondistended, normoactive bowel sounds, soft to palpation, non-tender and non-distended GI Narrative: has colostomy bag filled with very liquid stool Extremity normal to inspection, full ROM and no clubbing, cyanosis or edema Peripheral Pulses: Yes pulses 2+ throughout Skin no rashes or lesions noted Neuro oriented x3, CN's II-XII intact bilaterally and moves all extremities Sensorium / Orientation: awake and alert Psych affect normal Assessment & Plan Assessment/Plan (1) Hydronephrosis: (2) Acute kidney injury: (3) Urinary tract infection: QUALIFIERS: Urinary tract infection type: acute pyelonephritis Qualified Code(s): N10 - Acute pyelonephritis PLAN: #Acute pyelonephritis * Patient feels worse today. * on IV rocephin * urine cultures growing Pseudomonas * will switch IV ceftriaxone to IV zosyn based on blood culture results. * * #Bilateral hydronephrosis and hydroureter * Concern is for recently passed stones. Urology on board. * for renal USG today. * No plans for any surgical intervention per urology * CR is 1. #TOMÁS on CKD stage III: * Likely postobstructive due to bilateral hydronephrosis. * CR is down to 1.0 * #Hypokalemia * potassium is down to 2.7 today. * I think the high output from her colostomy is contributing to her refractory hypokalemia. * will replace potassium aggressively * #Diarrhea, likely secretory * patient has very watery output in her colostomy * she says it has been like this for a long time but seems to be worsening. * will start on octreotide and monitor diarrhea #Elevated D-dimer: * Was initially started on heparin drip but she could not have CTA due to e levated D-dimer. * CTA done subsequently was negative for any PE. * #Non-anion gap metabolic acidosis * Likely due to TOMÁS on CKD stage III * was placed on bicarb drip. bicarb today is 21. * Nephrology on board * DVT prophylaxis:on lovenox. Charges/Coding Visit Charges Inpatient E&M: 52472 Subs Hosp L3
--- NOTE | 2021-07-14 12:30 | CASEMGMT ---
Pt screened with [facility] Palliative Care Screening Tool due to strata 3, pt met criteria. No order received at this time.
[2021-07-14] MEDS: Octreotide 0.1 MG/ML ML 0.05 MG SC ×2 (13:59→21:44)
--- NOTE | 2021-07-14 23:01 | PCM.PROGNOTE ---
Subjective Subjective Feeling ok tonight but not great. No specific complaints. We talked about her voiding difficulty and it sounds like this has been a more ongoing and intermittent issue for her. We talked about the need to keep the bladder drained so kidneys continue to work at the highest level. She will require further functional evaluation of her bladder after discharge. Objective Data Objective Data Vital Signs: Vital Signs Temp Pulse Resp BP Pulse Ox 99.5 F H 88 18 101/58 L 96 07/14/21 20:10 07/14/21 20:10 07/14/21 20:10 07/14/21 20:10 07/14/21 20:10 Oxygen Delivery Method Room Air Weight: 59.1 kg Body Mass Index (BMI) 21.2 Intake & Output: Intake and Output for Last 24 Hours 07/12/21 07/13/21 07/14/21 23:59 23:59 23:59 Intake Total 3329.40 / 3329.40 4393.59 / 4393.59 2991.67 / 2991.67 Output Total 1875 / 1875 3550 / 4400 4000 / 4000 Balance 1454.40 / 1454.40 843.59 / -6.41 -1008.33 / -1008.33 Lab / Micro Data Result Diagrams: 07/14/21 05:45 07/14/21 05:45 Labs: Laboratory Results - last 24 hr 07/14/21 05:45: Sodium 139, Potassium 2.7 L*, Chloride 110 H, Carbon Dioxide 21.0, BUN 9, Creatinine 1.00, Estim Creat Clear Calc 38.44, Est GFR (MDRD) Af Amer 69, Est GFR (MDRD) Non-Af 57 L, BUN/Creatinine Ratio 9.0 L, Glucose 103, Calcium 7.4 L, Phosphorus 1.2 L, Albumin 1.8 L 07/14/21 05:45: WBC 14.4 H, RBC 3.48 L, Hgb 10.1 L, Hct 30.1 L, MCV 86.5, MCH 29.0, MCHC 33.6, RDW Std Deviation 45.6 H, RDW Coeff of Osmar 14.4, Plt Count 203, MPV 10.0, Immature Gran % (Auto) 0.900, Neut % (Auto) 75.8 H, Lymph % (Auto) 13.4 L, [place] % (Auto) 9.0, Eos % (Auto) 0.8, Baso % (Auto) 0.1, Absolute Neuts (auto) 10.9 H, Absolute Lymphs (auto) 1.94, Nucleated RBC % 0 Micro: Microbiology 07/12/21 12:05 Blood Culture (Wb) - Arm Right Blood Culture - Preliminary No growth in 48 hours. 07/12/21 11:55 Blood Culture (Wb) - Anticubital Left Blood Culture - Preliminary No growth in 48 hours. 07/12/21 11:25 Urine, Clean Catch Urine Culture - Final Pseudomonas aeroginosa 07/12/21 11:50 Nasal Secretion SARS-CoV-2 Antigen (Rapid) - Final 07/12/21 16:52 Mucosa - Nasopharyngeal Respiratory Panel (PCR) - Final Rhinovirus Radiography Diagnostic Testing: Radiology Impression Renal Ultrasound 07/14/21 10:10 IMPRESSION: Multiple small bilateral nonobstructive intrarenal calculi. Electronically Signed: Chriss Boateng MD at 14:17 EDT , Service support , Physical Exam Const alert and oriented x3 HEENT normocephalic and head/scalp atraumatic Resp no retractions Effort and Inspection: able to speak in complete sentences and symmetric chest movement Narrative: Sheets draining very dilute, clear urine. Skin no rashes or lesions noted Assessment & Plan Assessment/Plan (1) Hydronephrosis: PLAN: resolved with sheets catheter (2) Urinary tract infection: QUALIFIERS: Urinary tract infection type: acute pyelonephritis Qualified Code(s): N10 - Acute pyelonephritis PLAN: continue antibiotics, changed due to culture (3) Acute kidney injury: PLAN: creatinine now normal (4) Urinary retention: PLAN: will need urodynamics as an outpatient and we discussed her learning how to straight cath. would like to have trial of void prior to discharge with bladder scan residual when ok with primary team
[2021-07-15] VITALS (15 sets, daily range): BP systolic 78–118; BP diastolic 40–66; PULSE 81–108; RESP 16–28; TEMP 36.9–37.4; O2SAT 90–98
[2021-07-15 05:36] LABS: Absolute Lymphocyte Count 2.08 X10^3/uL (0.83-4.51); Absolute Neutrophil Count 9.4 X10^3/uL (2.0-7.7); Basophil# 0.02 X10^3/uL; Basophil% 0.2 % (0-1); Eosinophil# 0.21 X10^3/uL; Eosinophils% 1.6 % (0-5); Hematocrit 33.4 % (37-47); Hemoglobin 10.9 g/dL (12.0-15.0); Lymphocyte # 2.08 X10^3/ul (0.83-4.51); Lymphocyte % 15.8 % (19-41); Mean Corp Hgb Conc 32.6 g/dL (32-36); Mean Corpuscular Hgb 28.6 pg (27.0-32.0); Mean Corpuscular Volume 87.7 fL (81-99); Mean Platelet Vol. 9.7 fl (6.2-12.0); Monocyte# 1.22 X10^3/uL; Monocyte% 9.3 % (0-10); NRBC Flagged by Analyzer 0 % (0-5); Neutrophil # 9.38 X10^3/uL (2.7-7.7); Neutrophil % 71.3 % (47-70); Platelet Count 226 K/mm3 (150-450); RBC Distribution Width CV 14.4 % (11.6-14.6); RBC Distribution Width SD 46.3 fl (35.1-43.9); Red Blood Count 3.81 M/mm3 (4.2-5.4); White Blood Count 13.1 K/mm3 (4.4-11.0)
[2021-07-15] MEDS: Octreotide 0.1 MG/ML ML 0.05 MG SC (05:46)
[2021-07-15 06:10] LABS: Anion Gap 6 (5-15); BUN 10 mg/dL (7-18); BUN/Creat Ratio 9.8 RATIO (10-20); Calcium,Total 7.8 mg/dL (8.5-10.1); Chloride 111 mmol/L (98-107); Creatinine, Serum 1.02 mg/dL (0.55-1.02); EST Glomerular Filtration Rate 56 mL/min (>60); Est Glom Filt Rate - Afr Amer 68 mL/min (>60); Estimated Creatinine Clearance 37.69 ml/min; Glucose 101 mg/dL (74-106); Potassium 3.9 mmol/L (3.5-5.1); Sodium Level 140 mmol/L (136-145)
[2021-07-15] MEDS: Ipratropium/Albuterol Sulfate 3 ML AMPUL.NEB INHALATION ×3 (06:55→19:55)
--- NOTE | 2021-07-15 10:53 | PN.RENAL_ITS ---
Subjective Subjective renal function, electrolytes stable, ok to dc to home from renal standpoint Objective Data Objective Data Vital Signs: Vital Signs Temp Pulse Resp BP Pulse Ox 98.9 F 108 H 22 H 84/52 L 93 07/15/21 09:05 07/15/21 09:42 07/15/21 09:42 07/15/21 10:34 07/15/21 09:05 Oxygen Delivery Method Room Air Weight: 59.1 kg Body Mass Index (BMI) 21.2 Intake & Output: Intake and Output for Last 24 Hours 07/13/21 07/14/21 07/15/21 23:59 23:59 23:59 Intake Total 4393.59 / 4393.59 2991.67 / 2991.67 Output Total 3550 / 4400 4550 / 4550 800 / 800 Balance 843.59 / -6.41 -1558.33 / -1558.33 -800 / -800 Lab / Micro Data Result Diagrams: 07/15/21 04:52 07/15/21 04:52 Labs: Laboratory Results - last 24 hr 07/15/21 04:52: WBC 13.1 H, RBC 3.81 L, Hgb 10.9 L, Hct 33.4 L, MCV 87.7, MCH 28.6, MCHC 32.6, RDW Std Deviation 46.3 H, RDW Coeff of Osmar 14.4, Plt Count 226, MPV 9.7, Immature Gran % (Auto) 1.800 H, Neut % (Auto) 71.3 H, Lymph % (Auto) 15.8 L, [place] % (Auto) 9.3, Eos % (Auto) 1.6, Baso % (Auto) 0.2, Absolute Neuts (auto) 9.4 H, Absolute Lymphs (auto) 2.08, Nucleated RBC % 0 07/15/21 04:52: Sodium 140, Potassium 3.9, Chloride 111 H, Carbon Dioxide 23.0, Anion Gap 6, BUN 10, Creatinine 1.02, Estim Creat Clear Calc 37.69, Est GFR (MDRD) Af Amer 68, Est GFR (MDRD) Non-Af 56 L, BUN/Creatinine Ratio 9.8 L, Glucose 101, Calcium 7.8 L Micro: Microbiology 07/12/21 12:05 Blood Culture (Wb) - Arm Right Blood Culture - Preliminary No growth in 48 hours. 07/12/21 11:55 Blood Culture (Wb) - Anticubital Left Blood Culture - Preliminary No growth in 48 hours. 07/12/21 11:25 Urine, Clean Catch Urine Culture - Final Pseudomonas aeroginosa 07/12/21 11:50 Nasal Secretion SARS-CoV-2 Antigen (Rapid) - Final 07/12/21 16:52 Mucosa - Nasopharyngeal Respiratory Panel (PCR) - Final Rhinovirus Radiography Diagnostic Testing: Radiology Impression Renal Ultrasound 07/14/21 10:10 IMPRESSION: Multiple small bilateral nonobstructive intrarenal calculi. Electronically Signed: Chriss Boateng MD at 14:17 EDT , Service support ,
[2021-07-15] MEDS: Ondansetron 4 MG/2 ML Vial IV (11:04)
[2021-07-15] MEDS: 0.9% Saline Lock 10 ML Syringe IV (11:04)
[2021-07-15] MEDS: Enoxaparin 30 MG/0.3 ML Syringe SC (11:13)
--- NOTE | 2021-07-15 11:22 | CASEMGMT ---
RICHARD CM in to discuss discharge planning with patient and daughter. Patient and daughter denying need for HHC or outpatient therapy. Patient participated with therapy and ambulated 90 feet SBA. Patient denied further needs at this time.
[2021-07-15] MEDS: Levothyroxine 75 MCG Tablet PO (12:04)
[2021-07-15] MEDS: Sodium Bicarbonate 650 MG Tablet PO ×3 (12:04→21:17)
[2021-07-15] MEDS: Citalopram 40 MG TABLET PO (12:05)
[2021-07-15] MEDS: buPROPion (XL) 150 MG TABLET.XL PO (12:05)
[2021-07-15] MEDS: 0.9% Normal Saline 1,000 ML 125 ML IV ×2 (12:07→20:20)
--- NOTE | 2021-07-15 15:01 | PN.HOSP_ITS ---
Subjective Subjective Patient seen and examined. She had no complaints this morning. She said her output from her colostomy had decreased. Review of symptoms otherwise negative. Plan was to discharge patient home today but she subsequently became nauseous and had blood pressure was also low in the 70s systolic. Decision to discharge therefore canceled. Potassium is up to 3.9 today. Objective Data Objective Data Vital Signs: Vital Signs Temp Pulse Resp BP Pulse Ox 98.5 F 90 16 110/66 94 07/15/21 13:05 07/15/21 13:05 07/15/21 13:40 07/15/21 13:05 07/15/21 13:05 Oxygen Delivery Method Room Air Weight: 130 lb 4.691 oz Body Mass Index (BMI) 21.2 Intake & Output: Intake and Output for Last 24 Hours 07/13/21 07/14/21 07/15/21 23:59 23:59 23:59 Intake Total 4393.59 / 4393.59 2991.67 / 2991.67 50 / 50 Output Total 3550 / 4400 4550 / 4550 1200 / 1200 Balance 843.59 / -6.41 -1558.33 / -1558.33 -1150 / -1150 Lab / Micro Data Result Diagrams: 07/15/21 04:52 07/15/21 04:52 Labs: Laboratory Results - last 24 hr 07/15/21 04:52: WBC 13.1 H, RBC 3.81 L, Hgb 10.9 L, Hct 33.4 L, MCV 87.7, MCH 28.6, MCHC 32.6, RDW Std Deviation 46.3 H, RDW Coeff of Osmar 14.4, Plt Count 226, MPV 9.7, Immature Gran % (Auto) 1.800 H, Neut % (Auto) 71.3 H, Lymph % (Auto) 15.8 L, Talbot % (Auto) 9.3, Eos % (Auto) 1.6, Baso % (Auto) 0.2, Absolute Neuts (auto) 9.4 H, Absolute Lymphs (auto) 2.08, Nucleated RBC % 0 07/15/21 04:52: Sodium 140, Potassium 3.9, Chloride 111 H, Carbon Dioxide 23.0, Anion Gap 6, BUN 10, Creatinine 1.02, Estim Creat Clear Calc 37.69, Est GFR (MDRD) Af Amer 68, Est GFR (MDRD) Non-Af 56 L, BUN/Creatinine Ratio 9.8 L, Glucose 101, Calcium 7.8 L Micro: Microbiology 07/14/21 16:35 Sputum, Expectorated/Coughed Gram Stain - Final 07/14/21 16:35 Sputum, Expectorated/Coughed Respiratory Culture - Preliminary Yeast Like Organism 07/12/21 12:05 Blood Culture (Wb) - Arm Right Blood Culture - Preliminary No growth in 48 hours. 07/12/21 11:55 Blood Culture (Wb) - Anticubital Left Blood Culture - Preliminary No growth in 48 hours. 07/12/21 11:25 Urine, Clean Catch Urine Culture - Final Pseudomonas aeroginosa 07/12/21 11:50 Nasal Secretion SARS-CoV-2 Antigen (Rapid) - Final 07/12/21 16:52 Mucosa - Nasopharyngeal Respiratory Panel (PCR) - Final Rhinovirus Physical Exam Const alert and oriented x3 Orientation / Consciousness: lethargic Exam Limitations: no limitations Nutritional Appearance: underweight HEENT head/scalp atraumatic and moist oral mucous membranes Eyes PERRL, EOMs intact bilaterally and conjunctivae normal Neck no lymphadenopathy Resp normal respiratory effort, no retractions, no use of accessory muscles and clear to auscultation bilaterally Cardio regular rate, regular rhythm, S1 normal heart sound, S2 normal heart sound and no murmurs GI normal to inspection, nondistended, normoactive bowel sounds, soft to palpation, non-tender and non-distended GI Narrative: has colostomy bag has scant semiformed stool. Extremity normal to inspection, full ROM and no clubbing, cyanosis or edema Skin no rashes or lesions noted Neuro oriented x3, CN's II-XII intact bilaterally and moves all extremities Sensorium / Orientation: awake and alert Psych affect normal Assessment & Plan Assessment/Plan (1) Hydronephrosis: (2) Acute kidney injury: (3) Urinary tract infection: QUALIFIERS: Urinary tract infection type: acute pyelonephritis Qualified Code(s): N10 - Acute pyelonephritis PLAN: #Acute pyelonephritis * pateint is feeling better today. * urine cultures growing Pseudomonas * now on IV zosyn * blood cultures were negative. * #Bilateral hydronephrosis and hydroureter * Concern is for recently passed stones. Urology on board. * renal USG showed miltiple small bilateral nonobstructive intrarenal calculi * No plans for any surgical intervention per urology * #Hypotension * Blood pressure down in the 70s systolic today. * hypotension responded to IVF hydration. * Will monitor and continue hydration with IVF. #TOMÁS on CKD stage III: * Likely postobstructive due to bilateral hydronephrosis. * CR is down to 1.0 * resolved * #Hypokalemia * resolved. K is 3.9 today * will give oral potassium supplements on discharge. * #Diarrhea, likely secretory * started on octreotide, which slowed down output. Patient's daughters now worried that output has slowed down too much * octreotide therefore discontinued * will need follow up with gastroenterology on outpatient basis. * #Elevated D-dimer: * CTA negative for any PE. * #Non-anion gap metabolic acidosis * Likely due to TOMÁS on CKD stage III * resolved. Bicarb today is 23. nephrology on board. * Bicarb drip discontinued * * DVT prophylaxis:on lovenox. Charges/Coding Visit Charges Inpatient E&M: 55390 Subs Hosp L3
--- NOTE | 2021-07-15 15:07 | NURSING ---
Colostomy wafer noted to be peeling off. Wafer and appliance changed. Skin care provided. Surrounding skin intact. Stoma beefy red. Patient tolerated procedure well, denies pain.
[2021-07-16] VITALS (8 sets, daily range): BP systolic 93–110; BP diastolic 45–60; PULSE 76–98; RESP 18; TEMP 36.8–36.9; O2SAT 92–97
[2021-07-16 05:49] LABS: Absolute Lymphocyte Count 1.73 X10^3/uL (0.83-4.51); Absolute Neutrophil Count 9.6 X10^3/uL (2.0-7.7); Basophil# 0.02 X10^3/uL; Basophil% 0.2 % (0-1); Eosinophil# 0.23 X10^3/uL; Eosinophils% 1.8 % (0-5); Hematocrit 31.7 % (37-47); Lymphocyte # 1.73 X10^3/ul (0.83-4.51); Lymphocyte % 13.6 % (19-41); Mean Corp Hgb Conc 31.5 g/dL (32-36); Mean Corpuscular Hgb 28.4 pg (27.0-32.0); Mean Corpuscular Volume 90.1 fL (81-99); Mean Platelet Vol. 9.5 fl (6.2-12.0); Monocyte# 0.88 X10^3/uL; Monocyte% 6.9 % (0-10); NRBC Flagged by Analyzer 0 % (0-5); Neutrophil # 9.64 X10^3/uL (2.7-7.7); Neutrophil % 75.8 % (47-70); Platelet Count 211 K/mm3 (150-450); RBC Distribution Width CV 14.3 % (11.6-14.6); RBC Distribution Width SD 47.1 fl (35.1-43.9); Red Blood Count 3.52 M/mm3 (4.2-5.4); White Blood Count 12.7 K/mm3 (4.4-11.0)
[2021-07-16 06:09] LABS: Anion Gap 8 (5-15); BUN 9 mg/dL (7-18); BUN/Creat Ratio 8.7 RATIO (10-20); Calcium,Total 7.9 mg/dL (8.5-10.1); Chloride 114 mmol/L (98-107); Creatinine, Serum 1.04 mg/dL (0.55-1.02); EST Glomerular Filtration Rate 55 mL/min (>60); Est Glom Filt Rate - Afr Amer 66 mL/min (>60); Estimated Creatinine Clearance 36.97 ml/min; Glucose 103 mg/dL (74-106); Potassium 3.5 mmol/L (3.5-5.1); Sodium Level 143 mmol/L (136-145)
[2021-07-16] MEDS: Ipratropium/Albuterol Sulfate 3 ML AMPUL.NEB INHALATION ×2 (07:02→13:20)
[2021-07-16] MEDS: Potassium Chloride Oral Tablet 20 MEQ 40 MEQ PO (10:13)
[2021-07-16] MEDS: Levothyroxine 75 MCG Tablet PO (10:14)
[2021-07-16] MEDS: buPROPion (XL) 150 MG TABLET.XL PO (10:14)
[2021-07-16] MEDS: Citalopram 40 MG TABLET PO (10:14)
[2021-07-16] MEDS: Sodium Bicarbonate 650 MG Tablet PO ×2 (10:15→14:40)
[2021-07-16] MEDS: Enoxaparin 30 MG/0.3 ML Syringe SC (10:15)
--- NOTE | 2021-07-16 14:11 | DS.PCM_ITS ---
Providers Date of Admission: 07/12/21 Primary Care Physician: Dr. Adis Mireles MD Consultations 07/12/21 14:44 Consult: Urology Routine Consulting Provider: Minal Morrison Reason for Consult: Pyelo, hydro EMERGENT Consult: No Notified: Yes Date Notified: 07/12/21 Time Notified: 14:16 Method of Notification: cortext 07/12/21 18:36 Consult: Nephrology Routine Consulting Provider: Gali Wiley Reason for Consult: TOMÁS, metabolic acidosis EMERGENT Consult: No Notified: Yes Date Notified: 07/12/21 Time Notified: 18:36 Method of Notification: cortext Reason For Visit: PYELO / ELECTROLYTE DISTURBANCE Diagnosis Discharge Diagnosis (1) Hydronephrosis: Status: Acute Code(s): N13.30 - Unspecified hydronephrosis (2) Acute kidney injury: Status: Resolved Code(s): N17.9 - Acute kidney failure, unspecified (3) Urinary tract infection: Status: Resolved Code(s): N39.0 - Urinary tract infection, site not specified Qualifiers: Urinary tract infection type: acute pyelonephritis Qualified Code(s): N10 - Acute pyelonephritis Medications at Discharge Home Medications bupropion HCl 150 mg 24 hr tablet, extended release 150 mg PO QAM 11/28/18 citalopram 40 mg PO DAILY 04/24/19 levothyroxine 75 mcg PO DAILY@0600 08/27/19 cyanocobalamin (vitamin B-12) 100 mcg IM Q30D 10/08/19 albuterol sulfate 90 mcg/actuation aerosol inhaler 2 puff INHALATION Q4H PRN #18 g 12/09/19 midodrine 2.5 mg PO BID #20 tab 07/16/21 potassium chloride 20 meq PO DAILY #30 tab 07/16/21 Hospital Course Operations None Procedures None Summary of Care Provided Minutes Spent on Discharge: 45 Hospital Course: Patient is a 75 y/o female with an extensive PMH as outlined who was admitted via the ED on 07/12/2021 with a complaint of lower back pain and suprapubic discomfort with associated increased pressure whilst urinating. She had no associated fever or chills, and CT of the abdomen and pelvis showed bilateral hydronephrosis and hydroureter with no obvious obstructing stones and mild distention of the urinary bladder creating reflux and nonobstructing bilateral calyceal stones present. Urinalysis showed 2+ bacteria. He was admitted and managed for pyelonephritis as well as bilateral hydronephrosis and hydroureter and TOMÁS on CKD stage III. She also had mild metabolic acidosis as well as hypokalemia and hypomagnesemia. She was hydrated with IV fluids and started on IV ceftriaxone. Urology was consulted and advocated medical management. Hypokalemia and hypomagnesemia resolved with replacement. Of note her D-dimer was elevated and initially she could not have a CTA due to renal function so she was started on heparin drip. Subsequently CTA done was negative for PE so heparin drip was stopped. Hospital course was complicated by refractory hypokalemia as well as increased output from the colostomy bag which he said has been chronic. She was started on octreotide which did help reduce the output but this was discontinued as family was concerned that output has been decreased significantly. Patient remained stable and was discharged on 11/24/2020. Of note, the day before discharge she was noted to have low blood pressure with blood pressure being in the 80s systolic. She did not have any history of low blood pressure and did not take any blood pressure medications. Blood pressure subsequently improved to the low 100 systolic and she said her blood pressure usually runs low. She was discharged home on 07/16/2021 with a prescription for p.o. cefdinir 300 mg twice daily for 7 days and also discharged on oral potassium supplements. She is to follow-up with her primary care doctor and urology in 1 to 2 weeks. She was given on a short course of midodrine to help with her intermittently low BP. Urine cultured pseudomonas, and she was transitioned to IV cefepime during admission. Patient was allergic to ciprofloxacin so she could not be discharged home on p.o. Ciprofloxacin or levofloxacin. She also tested positive for rhinovirus but was asymptomatic during admission. Patient seen and examined prior to discharge. She felt much better and had no complaints. She was ready to be discharged home. Review of systems otherwise negative. Labs and vitals reviewed. Home medication reviewed and reconciled. Physical Exam Const alert, oriented x3 and no apparent distress General Appearance: cooperative, comfortable and well kempt Orientation / Consciousness: awake, oriented to person, oriented to place and oriented to time Exam Limitations: no limitations Nutritional Appearance: underweight HEENT normocephalic, head/scalp atraumatic and moist oral mucous membranes Eyes PERRL, EOMs intact bilaterally and conjunctivae normal Neck no lymphadenopathy Resp normal respiratory effort, no retractions, no use of accessory muscles and clear to auscultation bilaterally Cardio regular rate, regular rhythm, S1 normal heart sound, S2 normal heart sound and no murmurs GI normal to inspection, nondistended, normoactive bowel sounds, soft to palpation, non-tender and non-distended GI Narrative: has colostomy bag has moderate semiformed stool. Extremity normal to inspection, full ROM and no clubbing, cyanosis or edema Skin no rashes or lesions noted Neuro oriented x3, CN's II-XII intact bilaterally and moves all extremities Sensorium / Orientation: awake and alert Psych affect normal Weight / BMI Weight Weight: 118 lb 9.739 oz Body Mass Index (BMI) 21.2 ABG / Lab / Microbiology Data Result Diagrams: 07/16/21 05:39 07/16/21 05:39 Laboratory: Laboratory Results - last 24 hr 07/16/21 05:39: WBC 12.7 H, RBC 3.52 L, Hgb 10.0 L, Hct 31.7 L, MCV 90.1, MCH 28.4, MCHC 31.5 L, RDW Std Deviation 47.1 H, RDW Coeff of Osmar 14.3, Plt Count 211, MPV 9.5, Immature Gran % (Auto) 1.700 H, Neut % (Auto) 75.8 H, Lymph % (Auto) 13.6 L, Baldwin % (Auto) 6.9, Eos % (Auto) 1.8, Baso % (Auto) 0.2, Absolute Neuts (auto) 9.6 H, Absolute Lymphs (auto) 1.73, Nucleated RBC % 0 07/16/21 05:39: Sodium 143, Potassium 3.5, Chloride 114 H, Carbon Dioxide 21.0, Anion Gap 8, BUN 9, Creatinine 1.04 H, Estim Creat Clear Calc 36.97, Est GFR (MDRD) Af Amer 66, Est GFR (MDRD) Non-Af 55 L, BUN/Creatinine Ratio 8.7 L, Glucose 103, Calcium 7.9 L Microbiology: Microbiology 07/14/21 16:35 Sputum, Expectorated/Coughed Gram Stain - Final 07/14/21 16:35 Sputum, Expectorated/Coughed Respiratory Culture - Prelim inary Presumptive C albicans 07/12/21 12:05 Blood Culture (Wb) - Arm Right Blood Culture - Preliminary No growth in 48 hours. 07/12/21 11:55 Blood Culture (Wb) - Anticubital Left Blood Culture - Preliminary No growth in 48 hours. 07/12/21 11:25 Urine, Clean Catch Urine Culture - Final Pseudomonas aeroginosa 07/12/21 11:50 Nasal Secretion SARS-CoV-2 Antigen (Rapid) - Final 07/12/21 16:52 Mucosa - Nasopharyngeal Respiratory Panel (PCR) - Final Rhinovirus D/C Instructions Discharge Diet: Low fat / Low cholesterol Discharge Activity: Return to Normal Activity Weight Bearing Status: Weight bearing as tolerated Call your doctor if you observe: Fever of 101 or Higher, Shortness of breath, Dizziness and Swelling in the ankles Meaningful Use Info Meaningful Use Diagnoses (Choose all that apply): None applicable Discharge Plan Admission Admit Date/Time: 07/12/21 14:19 Primary Reason for Your Visit: rhinovirus, hypokalemia, pyelonephritis Attending Provider: Isamar Rawls Primary Care Provider: Adis Mireles Consulting Providers: Minal Morrison ; Gali Wiley Instructions Patient Instructions: Discharge Instructions for ..., High Potassium Diet Dc, ED Potassium-Rich Foods, ED Pyelonephritis or Kidney ... Discharge Orders/Prescriptions Prescriptions: New potassium chloride 20 mEq tablet extended release 20 meq PO DAILY Qty: 30 RF: 0 midodrine 2.5 mg tablet 2.5 mg PO BID Qty: 20 RF: 0 Continued bupropion HCl 150 mg tablet extended release 24 hr 150 mg PO QAM RF: 0 albuterol sulfate [Ventolin HFA] 90 mcg/actuation HFA aerosol inhaler 2 puff INHALATION Q4H PRN (Reason: shortness of breath or wheezing) Qty: 18 RF: 6 citalopram 40 MG tablet 40 mg PO DAILY RF: 0 levothyroxine 100 MCG tablet 75 mcg PO DAILY@0600 RF: 0 cyanocobalamin (vitamin B-12) 1,000 MCG/ML solution 100 mcg IM Q30D RF: 0 Referrals / Follow Up: Gali Wiley DO [STAFF PHYSICIAN] - (f/u in 2 weeks with renal panel) Minal Morrison MD [STAFF PHYSICIAN] - Within 2 Weeks Adis Mireles MD [Primary Care Provider] - 07/23/21 1:40 pm Disposition Disposition (needs filled in before D/C Order can be placed): Home, Self Care Charges/Coding Visit Charges Inpatient E&M: 99201 Disch Hosp
[2021-07-16] MEDS: levoFLOXacin 500 MG Tablet PO (15:17)
--- NOTE | 2021-07-21 16:45 | CASEMGMT ---
RICHARD ALBRIGHT Discharge Follow-Up Phone Call. [place]shad: 12 Strata: 3 Discharge Date: 07/16/21 Adm Dx: Pyelo, electrolyte disturbances Call to pt to inquire about how she has been doing since being discharged from the hospital. Pt states, I'm doing great. She denies having any pain or SOB. She states she did get her new prescriptions w/out difficulty and has been taking them as prescribed. She denies having any questions about the medications or discharge instructions. She is aware of the appt scheduled w/her PCP and states her dtr called and scheduled the appts w/Dr Wiley and Dr Morrison. Yissel ACE RN CM
== END 2021-07-16 17:50 | disposition home or self-care (01) | DRG 872 ==
LOC: ED 13:02 → MS3 14:35
PROVIDERS: Internal Medicine Nephrology; Admitting Provider Family Medicine; Emergency Provider Emergency Medicine; PCP Internal Medicine; Visit Provider Student in an Organized Health Care Education/Training Program
DX: A41.9 Sepsis, unspecified organism (principal); N13.6 Pyonephrosis; E87.2 Acidosis; N17.9 Acute kidney failure, unspecified; B96.5 Pseudomonas (aeruginosa) (mallei) (pseudomallei) as the cause of diseases classified elsewhere; N18.31 Chronic kidney disease, stage 3a; I95.9 Hypotension, unspecified; R33.9 Retention of urine, unspecified; E87.6 Hypokalemia; E83.42 Hypomagnesemia; E86.0 Dehydration; J43.9 Emphysema, unspecified; Z20.822 Contact with and (suspected) exposure to COVID-19; E03.9 Hypothyroidism, unspecified; F32.9 Major depressive disorder, single episode, unspecified; F41.9 Anxiety disorder, unspecified; R63.6 Underweight; Z68.21 Body mass index [BMI] 21.0-21.9, adult; Z79.890 Hormone replacement therapy; Z79.899 Other long term (current) drug therapy; Z93.3 Colostomy status; Z85.118 Personal history of other malignant neoplasm of bronchus and lung; Z85.048 Personal history of other malignant neoplasm of rectum, rectosigmoid junction, and anus; Z86.73 Personal history of transient ischemic attack (TIA), and cerebral infarction without residual deficits; Z87.891 Personal history of nicotine dependence; Z87.442 Personal history of urinary calculi
CPT/HCPCS: 36415; 36569; 36600; 51702; 71045; 71275; 74176; 76770; 80048; 80053; 80069; 80307; 80329; 81001; 82009; 82077; 82570; 82803; 83605; 83735; 84100; 84132; 84145; 84300; 84484; 85025; 85379; 85610; 85730; 87040; 87070; 87077; 87086; 87088; 87184; 87186; 87205; 87426; 87633; 93005; 93970; 94640; 97110; 97162; 97166; 97530; 97535; 99251; 99285; J7030; Q9967; A4216; G0463; G0480; J2354; J2405

== ENCOUNTER → 2021-08-02 16:21 | Outpatient (CLI) | payer MEDICARE, OTHER, SELFPAY ==
[2021-08-02 17:13] LABS: Absolute Lymphocyte Count 3.08 X10^3/uL (0.83-4.51); Absolute Neutrophil Count 7.8 X10^3/uL (2.0-7.7); Basophil# 0.02 X10^3/uL; Basophil% 0.2 % (0-1); Eosinophil# 0.26 X10^3/uL; Eosinophils% 2.2 % (0-5); Hematocrit 38.2 % (37-47); Hemoglobin 11.6 g/dL (12.0-15.0); Lymphocyte # 3.08 X10^3/ul (0.83-4.51); Lymphocyte % 25.9 % (19-41); Mean Corp Hgb Conc 30.4 g/dL (32-36); Mean Corpuscular Hgb 28.2 pg (27.0-32.0); Mean Corpuscular Volume 92.7 fL (81-99); Mean Platelet Vol. 8.9 fl (6.2-12.0); Monocyte% 5.9 % (0-10); NRBC Flagged by Analyzer 0 % (0-5); Neutrophil # 7.77 X10^3/uL (2.7-7.7); Neutrophil % 65.4 % (47-70); Platelet Count 277 K/mm3 (150-450); RBC Distribution Width CV 14.3 % (11.6-14.6); RBC Distribution Width SD 47.9 fl (35.1-43.9); Red Blood Count 4.12 M/mm3 (4.2-5.4); White Blood Count 11.9 K/mm3 (4.4-11.0)
[2021-08-02 18:00] LABS: ALB/GLOB Ratio 0.6 RATIO (0.9-2.4); AST(SGOT) 15 U/L (15-37); Alanine Aminotransfer ALT/SGPT 20 U/L (13-56); Alkaline Phosphatase 102 U/L (45-117); Anion Gap 12 (5-15); BUN 11 mg/dL (7-18); Calcium,Total 8.8 mg/dL (8.5-10.1); Chloride 113 mmol/L (98-107); EST Glomerular Filtration Rate 51 mL/min (>60); Est Glom Filt Rate - Afr Amer 62 mL/min (>60); Globulin 4.7 g/dL (2.2-4.2); Glucose 87 mg/dL (74-106); Potassium 3.9 mmol/L (3.5-5.1); Protein, Total 7.7 g/dL (6.4-8.2); Sodium Level 141 mmol/L (136-145); Thyroid Stim Hormone (TSH) 1.03 uIU/mL (0.358-3.74)
[2021-08-02 18:30] LABS: Hepatitis C Antibody Non-Reactive (Nonreactive); Vitamin D,25 Hydroxy 24.4 ng/mL
== END ==
PROVIDERS: PCP Family Medicine Geriatric Medicine; Visit Provider Family Medicine Geriatric Medicine
DX: I10 Essential (primary) hypertension (principal); E55.9 Vitamin D deficiency, unspecified; Z13.89 Encounter for screening for other disorder
CPT/HCPCS: 36415; 80053; 82306; 84443; 85025; 86803

== ENCOUNTER → 2021-08-10 14:40 | Outpatient (CLI) | payer MEDICARE, OTHER, SELFPAY ==
[2021-08-10 15:53] LABS: Albumin, Serum 3.3 g/dL (3.2-5.0); BUN 13 mg/dL (7-18); BUN/Creat Ratio 10.2 RATIO (10-20); Calcium,Total 9.3 mg/dL (8.5-10.1); Chloride 110 mmol/L (98-107); Creatinine, Serum 1.27 mg/dL (0.55-1.02); EST Glomerular Filtration Rate 44 mL/min (>60); Est Glom Filt Rate - Afr Amer 53 mL/min (>60); Glucose 90 mg/dL (74-106); Magnesium 1.9 mg/dL (1.6-2.6); Phosphorus 3.2 mg/dL (2.5-4.9); Potassium 4.1 mmol/L (3.5-5.1); Sodium Level 139 mmol/L (136-145)
== END ==
PROVIDERS: PCP Family Medicine Geriatric Medicine; Visit Provider Internal Medicine Nephrology
DX: N17.9 Acute kidney failure, unspecified (principal); E87.6 Hypokalemia; E83.42 Hypomagnesemia
CPT/HCPCS: 36415; 80069; 82306; 83735

== ENCOUNTER → 2021-09-02 14:32 | Outpatient (CLI) | payer MEDICARE, OTHER, SELFPAY ==
[2021-09-02 16:43] LABS: Absolute Lymphocyte Count 2.15 X10^3/uL (0.83-4.51); Absolute Neutrophil Count 3.2 X10^3/uL (2.0-7.7); Basophil# 0.01 X10^3/uL; Basophil% 0.2 % (0-1); Eosinophils% 1.6 % (0-5); Hematocrit 40.8 % (37-47); Hemoglobin 12.6 g/dL (12.0-15.0); Lymphocyte # 2.15 X10^3/ul (0.83-4.51); Lymphocyte % 35.3 % (19-41); Mean Corp Hgb Conc 30.9 g/dL (32-36); Mean Corpuscular Hgb 29.2 pg (27.0-32.0); Mean Corpuscular Volume 94.4 fL (81-99); Mean Platelet Vol. 9.4 fl (6.2-12.0); Monocyte# 0.64 X10^3/uL; Monocyte% 10.5 % (0-10); NRBC Flagged by Analyzer 0 % (0-5); Neutrophil # 3.18 X10^3/uL (2.7-7.7); Neutrophil % 52.2 % (47-70); Platelet Count 192 K/mm3 (150-450); RBC Distribution Width CV 14.1 % (11.6-14.6); RBC Distribution Width SD 49.3 fl (35.1-43.9); Red Blood Count 4.32 M/mm3 (4.2-5.4); White Blood Count 6.1 K/mm3 (4.4-11.0)
[2021-09-02 16:53] LABS: Anion Gap 9 (5-15); BUN 15 mg/dL (7-18); BUN/Creat Ratio 11.9 RATIO (10-20); Calcium,Total 9.1 mg/dL (8.5-10.1); Chloride 113 mmol/L (98-107); Creatinine, Serum 1.26 mg/dL (0.55-1.02); EST Glomerular Filtration Rate 44 mL/min (>60); Est Glom Filt Rate - Afr Amer 53 mL/min (>60); Glucose 84 mg/dL (74-106); Sodium Level 141 mmol/L (136-145)
== END ==
PROVIDERS: PCP Family Medicine Geriatric Medicine; Visit Provider Family Medicine Geriatric Medicine
DX: N39.0 Urinary tract infection, site not specified (principal); R53.81 Other malaise
CPT/HCPCS: 36415; 80048; 85025; 87077; 87086; 87088; 87186

== ENCOUNTER → 2021-09-03 09:53 | Outpatient (CLI) | payer MEDICARE, OTHER, SELFPAY | PROVIDERS: PCP Family Medicine Geriatric Medicine; Referring Provider Family Medicine Geriatric Medicine; Visit Provider Family Medicine Geriatric Medicine | DX: R68.83 Chills (without fever) (principal) | CPT/HCPCS: 87635; 87804; 87807; C9803; U0005; U0003 ==

== ENCOUNTER → 2021-09-09 14:42 | Outpatient (CLI) | payer MEDICARE, OTHER, SELFPAY ==
--- NOTE | 2021-09-09 14:58 | BD_ITS ---
STUDY: DUAL ENERGY X-RAY ABSORPTIOMETRY / DXA REASON FOR EXAM: Female, 76 years old. Postmenopausal screening TECHNIQUE: Bone Mineral Density (BMD) measurements of lumbar spine and bilateral hips were obtained. COMPARISON: None. FINDINGS: Lumbar Spine (L1-L4): g/cm2 (0.675) / T-score (-3.4) / Z-score (-0.9) Findings are suggestive of osteoporosis with a high fracture risk. Left Femur Total: g/cm2 (0.510) / T-score (-3.5) / Z-score (-1.7) Left Femoral Neck: g/cm2 (0.456) / T-score (-3.5) / Z-score (-1.4) Right Femur Total: g/cm2 (0.436) / T-score (-4.1) / Z-score (-2.3) Right Femoral Neck: g/cm2 (0.426) / T-score (-3.8) / Z-score (-1.7) BD/Dexa Bone Density Study IMPRESSION: The patient is considered osteoporotic as outlined below according to World Franklin Organization (WHO) criteria with a high fracture risk. Reference Information: The T-score is the number of standard deviations above or below the standard which is normal for young adults at their peak bone mineral density. The World Health Organization (WHO) interprets the T-scores as follows: Above -1 Normal bone density Between -1 and -2.5 Osteopenia Equal to / or below -2.5 Osteoporosis As a practical clinical guideline, osteopenia may be graded as follows: Mild -1 through -1.5 Moderate -1.6 through -2.0 Severe -2.1 through -2.4 The Z-score is the number of standard deviations above or below age-matched controls. A Z-score of less than -1.5 would be considered abnormal. References: 1. NIH Osteoporosis and Related Bone Diseases www osteo.org 2. International Society for Clinical Densitometry www iscd.org 3. National Osteoporosis Foundation www nof.org Electronically Signed: Yasmany Huff MD at 16:53 EDT , Service support ,
== END ==
PROVIDERS: PCP Family Medicine Geriatric Medicine; Referring Provider Family Medicine Geriatric Medicine; Visit Provider Family Medicine Geriatric Medicine
DX: M81.0 Age-related osteoporosis without current pathological fracture (principal); Z78.0 Asymptomatic menopausal state
CPT/HCPCS: 77080

== ENCOUNTER → 2021-09-13 | Outpatient (CLI) | payer MEDICARE, OTHER, SELFPAY | END | disposition home or self-care (01) | LOC: LABSPEC 17:04 | PROVIDERS: PCP Family Medicine Geriatric Medicine; Visit Provider Family Medicine Geriatric Medicine | DX: N39.0 Urinary tract infection, site not specified (principal) | CPT/HCPCS: 87077; 87086; 87088; 87186 ==

== ENCOUNTER → 2021-10-08 13:23 | Outpatient (CLI) | payer MEDICARE, OTHER, SELFPAY ==
--- NOTE | 2021-10-08 13:30 | RAD_ITS ---
STUDY: X-RAY - ABDOMEN/PELVIS REASON FOR EXAM: Female, 76 years old. ABD PAIN TECHNIQUE: 3 AP views, one upright COMPARISON: None. FINDINGS: Chronic interstitial changes in the lung bases. Nondistended air-filled loops of colon are noted consistent with ileus. Some retained stool is noted in the descending colon and rectum. No free air. The visualized liver, spleen and kidneys are grossly normal in size and morphology. Normal soft tissue structures. There are diffuse degenerative changes of the visualized lumbar spine. RAD/Abd Inc Decub and/or Erect IMPRESSION: Colonic ileus Electronically Signed: Yasmany Huff MD at 17:18 EST , Service support ,
[2021-10-08 15:33] LABS: Absolute Lymphocyte Count 3.22 X10^3/uL (0.83-4.51); Absolute Neutrophil Count 4.6 X10^3/uL (2.0-7.7); Basophil# 0.01 X10^3/uL; Basophil% 0.1 % (0-1); Eosinophil# 0.37 X10^3/uL; Eosinophils% 4.2 % (0-5); Hematocrit 43.7 % (37-47); Hemoglobin 13.5 g/dL (12.0-15.0); Lymphocyte # 3.22 X10^3/ul (0.83-4.51); Lymphocyte % 36.8 % (19-41); Mean Corp Hgb Conc 30.9 g/dL (32-36); Mean Corpuscular Volume 93.8 fL (81-99); Mean Platelet Vol. 9.2 fl (6.2-12.0); Monocyte# 0.54 X10^3/uL; Monocyte% 6.2 % (0-10); NRBC Flagged by Analyzer 0 % (0-5); Neutrophil % 52.5 % (47-70); Platelet Count 258 K/mm3 (150-450); RBC Distribution Width CV 13.4 % (11.6-14.6); RBC Distribution Width SD 46.1 fl (35.1-43.9); Red Blood Count 4.66 M/mm3 (4.2-5.4); White Blood Count 8.8 K/mm3 (4.4-11.0)
[2021-10-08 16:24] LABS: ALB/GLOB Ratio 0.8 RATIO (0.9-2.4); AST(SGOT) 20 U/L (15-37); Alanine Aminotransfer ALT/SGPT 26 U/L (13-56); Albumin, Serum 3.6 g/dL (3.2-5.0); Alkaline Phosphatase 125 U/L (45-117); Anion Gap 8 (5-15); BUN 11 mg/dL (7-18); BUN/Creat Ratio 8.6 RATIO (10-20); Calcium,Total 9.2 mg/dL (8.5-10.1); Chloride 114 mmol/L (98-107); Creatinine, Serum 1.28 mg/dL (0.55-1.02); EST Glomerular Filtration Rate 43 mL/min (>60); Est Glom Filt Rate - Afr Amer 52 mL/min (>60); Globulin 4.4 g/dL (2.2-4.2); Glucose 85 mg/dL (74-106); Potassium 4.1 mmol/L (3.5-5.1); Sodium Level 142 mmol/L (136-145)
== END ==
PROVIDERS: PCP Family Medicine Geriatric Medicine; Referring Provider Family Medicine Geriatric Medicine; Visit Provider Family Medicine Geriatric Medicine
DX: R53.83 Other fatigue (principal); R10.9 Unspecified abdominal pain; N39.0 Urinary tract infection, site not specified
CPT/HCPCS: 36415; 74019; 80053; 85025; 87077; 87086; 87088; 87186

== ENCOUNTER 2021-10-09 12:36 | Inpatient (IN) | payer MEDICARE, OTHER, SELFPAY ==
[2021-10-09 12:41] VITALS: BP 126/77; PULSE 92; RESP 17; TEMP 36.5; O2SAT 94; BMI 20.7
--- NOTE | 2021-10-09 13:11 | CT_ITS ---
HISTORY: epigastric pain, vomiting, decreased colostomy output. TECHNIQUE: Helically acquired images were obtained of the abdomen and pelvis with IV contrast. A radiation dose optimization technique was used for this scan. 100 mL Isovue 300 IV/oral Gastrografin. # of images incl. paperwork: [id number]. COMPARISON: XR prior day, CT 07/12/2021. FINDINGS: LOWER CHEST: Mild left basilar scarring. BOWEL: Bowel nondilated. Right lower quadrant ileocolic anastomosis again seen. Left lower quadrant diverting colostomy with passage of oral contrast. LIVER: Mild fatty infiltration without enhancing lesion. BILIARY TREE: Mild biliary ductal dilatation likely secondary to cholecystectomy. SPLEEN/PANCREAS: Homogeneous. Borderline dilated pancreatic duct. KIDNEYS: Small cysts and calculi bilaterally. Mild left hydroureteronephrosis secondary to 3 mm distal ureteral and ureterovesical junction calculi. Mild right hydronephrosis without definite obstructing ureteral calculus. Small pelvic phlebolith adjacent to the right distal ureter. ADRENAL GLANDS: Unremarkable. PERITONEUM: Moderate free air without spillage of oral contrast or significant free fluid. VESSELS: No abdominal aortic aneurysm. Atherosclerosis. PELVIC ORGANS: Absent uterus. Chronic presacral soft tissue thickening. BONES: Osteopenia and degenerative change. CT/Abdomen/Pelvis WITH Contrast IMPRESSION: Pneumoperitoneum concerning for perforation, uncertain etiology. Mild left hydronephrosis secondary to 3 mm distal ureteral and UVJ calculi. Mild right hydronephrosis without definite obstructing ureteral calculus. Bilateral renal calculi and small cysts. Postoperative changes in the bowel as above. Individualized dose optimization techniques were used for this CT. at 1551 Reported and signed by: Magda Jiménez MD N.B. : The above Results were Read Back by Magda Jiménez MD to Dr. Perla MD, and understanding confirmed on 10/09/2021 15:47:21 (ET). Electronically Signed: Magda Jiménez MD at 15:50 EST Tel , Service support ,
--- NOTE | 2021-10-09 13:12 | ED.VIS.GI ---
HPI HPI - GI History of Present Illness Chief Complaint: Abd Pain Informant: patient and family Abdominal Pain/Flank Pain Onset: Weeks (1) Context: Gradual Onset Timing: Continuous Quality: Aching Location: Epigastric Current Severity: Moderate Maximum Severity: Moderate Worsened by: Food and - (vomiting/dry heaving) Relieved by: Nothing Nausea/Vomiting/Emesis GI Symptom: Positive for Nausea and Vomiting Onset: Today Diarrhea/Melena/Hematochezia GI Symptom: Positive for Diarrhea (stopped this AM, now no colostomy output); Negative for Melena and Hematochezia Narrative Narrative: Patient presents with worsening upper abdominal pain, it has been off and on for a week, but now it is more consistent and this morning she started dry heaving and her colostomy output seem to stop this morning around 6:30 AM. That is unusual for her, she usually has consistent diarrhea output. She has no blood or melena. 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 She has had several bowel obstructions in the past, she has needed surgical correction for some of that, 1 of which was done in [place] by Dr. Ruelas. Patient was at her PCPs office yesterday and had blood work and KUB performed, which showed an ileus. [facility] Medical History (Updated 10/09/21 @ 16:[address] Cholo Duncan MD) Abdominal bloating Anxiety Chronic bronchitis COPD (chronic obstructive pulmonary disease) COPD exacerbation Decreased appetite Depression Filling defect on imaging study History of rectal cancer Hydronephrosis Hydronephrosis, right Hypothyroidism Lung cancer Nicotine abuse Rectal cancer Rectal cancer 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 calculus TIA (transient ischemic attack) Urinary retention Home Medications bupropion HCl 150 mg 24 hr tablet, extended release 150 mg PO QAM 11/28/18 [History Last Taken 04/17/20 06:00] citalopram 40 mg PO DAILY 04/24/19 [History Last Taken 04/17/20 06:00] cyanocobalamin (vitamin B-12) 100 mcg IM Q30D 10/08/19 [History Last Taken 03/22/20] albuterol sulfate 90 mcg/actuation aerosol inhaler 2 puff INHALATION Q4H PRN #18 g 12/09/19 [Rx Last Taken Unknown] potassium chloride 20 meq PO DAILY #30 tab 07/16/21 [Rx Last Taken Unknown] levothyroxine 100 mcg tablet 100 mcg PO DAILY@0600 tab 07/29/21 [History Last Taken Unknown] cefdinir 300 mg PO BID 10/09/21 [History Last Taken Unknown] cholecalciferol (vitamin D3) [Vitamin D3] 25 mcg PO DAILY 10/09/21 [History Last Taken Unknown] pantoprazole 40 mg PO DAILY 10/09/21 [History Last Taken Unknown] sodium bicarbonate 650 mg PO TID 10/09/21 [History Last Taken Unknown] Allergy/AdvReac Type Severity Reaction Status Date / Time ciprofloxacin [From Cipro] Allergy Rash Verified 10/09/21 12:37 ciprofloxacin HCl Allergy Rash Verified 10/09/21 12:37 [From Cipro] Penicillins Allergy Hives Verified 10/09/21 12:37 codeine AdvReac makes her Verified 10/09/21 12:37 feel weird magnesium citrate AdvReac Nausea Verified 10/09/21 12:37 NSAIDS (Non-Steroidal AdvReac kidney Verified 10/09/21 12:37 Anti-Inflamma damage r/t long-term usage advised not to use Family History Father Heart disease Mother Heart disease Sister Heart disease Diabetes Surgical History (Updated 10/09/21 @ 14:00 by Bahman Cespedes) History of bowel resection History of delivery History of cholecystectomy History of colonoscopy (~10/2019) History of colostomy History of hysterectomy History of hysterectomy Social History household members: none Smoking Status: Former smoker Tobacco: How many years used: 53 how long ago did patient quit smoking: Quit 2-5 years prior. second hand exposure: No alcohol intake: never substance use type: does not use caffeine: No what type of physical activity do you participate in: none ROS ROS ED Constitutional Constitutional ED: Reports anorexia and malaise; Denies body ache(s), chills or fever(s) Eyes Eyes: Denies change in vision or diplopia ENT ENT ED: Denies rhinorrhea or sore throat Cardiovascular Cardiovascular: Denies chest pain or palpitations Respiratory/Chest Respiratory/Chest: Denies cough or dyspnea Gastrointestinal Gastrointestinal: Reports as per HPI, abdominal pain, nausea and vomiting Genitourinary Genitourinary ED: Denies dysuria or hematuria Musculoskeletal Musculoskeletal: Denies back pain or neck pain Integumentary Denies abscess or rash Neurologic Neurologic: Denies headache(s), paresthesias or weakness Psychiatric Psychiatric: Denies anxiety or suicidal thoughts EXAM Physical Exam Const Vital Signs: 10/09/21 12:41 10/09/21 14:02 Temperature 97.7 F L Temperature Source Oral Pulse Rate 92 74 Respiratory Rate 17 16 Blood Pressure 126/77 H 135/69 H Blood Pressure Mean 93 91 Pulse Ox 94 98 Oxygen Delivery Method Room Air Room Air Positive well nourished and well developed General Appearance ED: well developed and NAD HEENT Reports moist mucous membranes normocephalic and atraumatic Eyes PERRL and EOMs intact bilaterally Neck full ROM and supple Resp normal respiratory effort and clear to auscultation bilaterally Cardio regular rate, regular rhythm and no murmurs Rate: Negative for tachycardic GI soft to palpation and non-distended GI Narrative: Tender in the epigastric/medial left upper quadrant area, there is no tenderness around the colostomy which is benign appearing with no output in the bag, there is a little air present. The site looks benign. Auscultation: normoactive bowel sounds Palpation: soft Back/Spine no CVA tenderness General Back: other FROM Extremity normal to inspection General Extremety ED: Negative for edema, pulses abnormal or tenderness General Extremity: Negative for edema or pulses abnormal Neuro oriented x3, CN's II-XII intact bilaterally and no sensory deficits noted Sensorium / Orientation: awake and alert Motor Exam: strength 5/5 throughout Skin no rashes or lesions noted and no wounds MDM MDM MDM Narrative Medical decision making narrative: Labs are similar to what they were yesterday, with a white blood count of 8.6 with no left shift or bandemia. Liver enzymes and lipase are within normal limits. I performed an oral and IV contrasted CT, she has findings in the left urinary collecting system with mild left hydronephrosis due to a 3 mm distal UVJ stone, unknown if her symptoms have anything to do with this, she has no CVA tenderness or colicky left flank pain, and pneumoperitoneum was noted by the radiologist who discussed it with me on the phone. There is no obvious source, and the oral contrast was seen all the way through to the colostomy and there is no extravasation of contrast to indicate an obvious source of a perforation. I reexamined the patient who initially did not have any guarding or rebound tenderness. She still does not, especially when specifically evaluating for rebound tenderness. She barely is tender in the epigastrium/medial left upper quadrant. She is comfortable, with normal vital signs, and she is not septic. She has had no recent surgery/instrumentation. I discussed with surgery Dr. Duval, she agrees patient does not need to go for emergency exploratory laparotomy at this time, she will admit her for observation and further care. Of note the patient is urinating now we do not yet have a urinalysis that is pending. Lab Data Attestation: I reviewed the patient's lab results. Labs: Laboratory Results - last 24 hr 10/09/21 10/09/21 14:05 14:15 WBC 8.6 RBC 4.45 Hgb 12.8 Hct 41.3 MCV 92.8 MCH 28.8 MCHC 31.0 L RDW Std Deviation 44.6 H RDW Coeff of Osmar 13.2 Plt Count 194 MPV 9.0 Immature Gran % (Auto) 0.300 Neut % (Auto) 63.0 Lymph % (Auto) 25.1 Pitkin % (Auto) 7.0 Eos % (Auto) 4.4 Baso % (Auto) 0.2 Absolute Neuts (auto) 5.4 Absolute Lymphs (auto) 2.17 Nucleated RBC % 0 Sodium 141 Potassium 4.2 Chloride 117 H Carbon Dioxide 17.0 L Anion Gap 7 BUN 9 Creatinine 1.09 H Estim Creat Clear Calc 33.13 Est GFR (MDRD) Af Amer 63 Est GFR (MDRD) Non-Af 52 L BUN/Creatinine Ratio 8.3 L Glucose 95 Calcium 8.5 Total Bilirubin 0.30 AST 17 ALT 23 Alkaline Phosphatase 114 Total Protein 6.9 Albumin 3.0 L Globulin 3.9 Albumin/Globulin Ratio 0.8 L Lipase 111 Radiography Diagnostic Testing: Clinical Impression(s) from Imaging Studies Abdomen/Pelvis CT 10/09/21 13:11 IMPRESSION: Pneumoperitoneum concerning for perforation, uncertain etiology. Mild left hydronephrosis secondary to 3 mm distal ureteral and UVJ calculi. Mild right hydronephrosis without definite obstructing ureteral calculus. Bilateral renal calculi and small cysts. Postoperative changes in the bowel as above. Individualized dose optimization techniques were used for this CT. at 1551 Reported and signed by: Magda Jiménez MD N.B. : The above Results were Read Back by Magda Jiménez MD to Dr. Perla MD, and understanding confirmed on 10/09/2021 15:47:21 (ET). Electronically Signed: Magda Jiménez MD at 15:50 EST Tel , Service support , ADDENDUM: 10/09/21 1558 IMPRESSION: Pneumoperitoneum concerning for perforation, uncertain etiology. Mild left hydronephrosis secondary to 3 mm distal ureteral and UVJ calculi. Mild right hydronephrosis without definite obstructing ureteral calculus. Bilateral renal calculi and small cysts. Postoperative changes in the bowel as above. Individualized dose optimization techniques were used for this CT. at 1551 Reported and signed by: Magda Jiménez MD N.B. : The above Results were Read Back by Magda Jiménez MD to Dr. Perla MD, and understanding confirmed on 10/09/2021 15:47:21 (ET). Electronically Signed: Magda Jiménez MD at 15:50 EST Tel , Service support , Discharge Plan Dx/Rx/DC Orders Clinical Impression: Pneumoperitoneum of unknown etiology, Calculus of distal left ureter Disposition Disposition: Acute Care [facility]
[2021-10-09] MEDS: Ondansetron 4 MG/2 ML Vial IV ×2 (13:57→19:58)
[2021-10-09] MEDS: 0.9% Normal Saline 1,000 ML 1000 ML IV (13:57)
[2021-10-09] MEDS: Morphine 2 MG/ML Syringe IV ×2 (13:58→18:35)
[2021-10-09 14:02] VITALS: BP 135/69; PULSE 74; RESP 16; O2SAT 98
[2021-10-09 14:25] LABS: Absolute Lymphocyte Count 2.17 X10^3/uL (0.83-4.51); Absolute Neutrophil Count 5.4 X10^3/uL (2.0-7.7); Basophil# 0.02 X10^3/uL; Basophil% 0.2 % (0-1); Eosinophil# 0.38 X10^3/uL; Eosinophils% 4.4 % (0-5); Hematocrit 41.3 % (37-47); Hemoglobin 12.8 g/dL (12.0-15.0); Lymphocyte # 2.17 X10^3/ul (0.83-4.51); Lymphocyte % 25.1 % (19-41); Mean Corpuscular Hgb 28.8 pg (27.0-32.0); Mean Corpuscular Volume 92.8 fL (81-99); NRBC Flagged by Analyzer 0 % (0-5); Neutrophil # 5.43 X10^3/uL (2.7-7.7); Platelet Count 194 K/mm3 (150-450); RBC Distribution Width CV 13.2 % (11.6-14.6); RBC Distribution Width SD 44.6 fl (35.1-43.9); Red Blood Count 4.45 M/mm3 (4.2-5.4); White Blood Count 8.6 K/mm3 (4.4-11.0)
[2021-10-09 14:30] LABS: ALB/GLOB Ratio 0.8 RATIO (0.9-2.4); AST(SGOT) 17 U/L (15-37); Alanine Aminotransfer ALT/SGPT 23 U/L (13-56); Alkaline Phosphatase 114 U/L (45-117); Anion Gap 7 (5-15); BUN 9 mg/dL (7-18); BUN/Creat Ratio 8.3 RATIO (10-20); Calcium,Total 8.5 mg/dL (8.5-10.1); Chloride 117 mmol/L (98-107); Creatinine, Serum 1.09 mg/dL (0.55-1.02); EST Glomerular Filtration Rate 52 mL/min (>60); Est Glom Filt Rate - Afr Amer 63 mL/min (>60); Estimated Creatinine Clearance 33.13 ml/min; Globulin 3.9 g/dL (2.2-4.2); Glucose 95 mg/dL (74-106); Lipase 111 U/L (73-393); Potassium 4.2 mmol/L (3.5-5.1); Protein, Total 6.9 g/dL (6.4-8.2); Sodium Level 141 mmol/L (136-145)
[2021-10-09 16:15] LABS: Mucous, Urine 0 SEEN /hpf (<or=2+); Red Blood Cells-Urine 0 SEEN /hpf (0-5); Squamous Epithelial Cells - UA 0 SEEN /hpf (5-10)
[2021-10-09 16:32] LABS: Color, Urine Yellow (Yellow); Glucose, Dipstick Normal (Normal); Ketone-Dipstick Negative (Negative); Leukocyte Esterase-Dipstick 100 /ul (Negative); Nitrite-Dipstick Negative (Negative); Occult Blood-Urine Negative /ul (Negative); Protein-Dipstick Negative (Negative); Urine Bilirubin Dipstick Negative (Negative); Urine Clarity Clear (Clear); Urine Urobilinogen Normal (Normal); Urine pH 6.5 (5.0 - 8.0)
[2021-10-09 16:39] LABS: Bacteria 1+ /hpf (None Seen); White Blood Cells 10-25 SEEN /hpf (0-5)
--- NOTE | 2021-10-09 16:59 | PCM.CONS.GEN ---
Assessment & Plan Assessment/Plan (1) COPD (chronic obstructive pulmonary disease): (2) Depression: (3) History of bowel resection: (4) Urinary tract infection: QUALIFIERS: Urinary tract infection type: acute pyelonephritis Qualified Code(s): N10 - Acute pyelonephritis (5) Hypothyroidism: PLAN: COPD There is no active exacerbation Continue as needed nebulizers as needed, with DuoNebs Not a tobacco user Previous history of UTI before admission Continue antibiotics, Cefdinir 300 2 times per day for 3 more days. No infection on UA here, however previous UA results prior to admission unknown. Ileus Pnuemoperitoneum Management per surgery team Would continue IV fluids 75-10 an hour since she is not tolerating p.o. intake Monitor electrolytes avoid opiates physical therapy and activity daily Depression Continue bupropion, and Celexa Hypothyroidism Resume Synthroid 100 mcg History of CKD Resume bicarbonate tablets. If severe ileus this is ok to hold at this point. DVT prophylaxis: SCDS Diet: NPO Full code Alexi Hawk MD Hospitalist HPI Consult Data Date of Consult: 10/09/21 HPI Narrative HPI Narrative: JOSE DE JESUS GOLD, is a 76 F who presents for decreased intake over the past 7 days with abdominal pain (predominantly bloating) in response to eating. Patient did have an episode of dry retching this morning and daughter brought her into the hospital for further care. The patient has decreased ostomy output as well over the past week. She denies chest pain, chest racing, cough, or shortness of breath, and does not have any recent COPD exacerbations and she is not an active tobacco user. Uses a PRN inhaler at home. The patient is being followed by Dr. Duval from surgery service. CT was completed and showed pneumoperitoneum and mild hydronephrosis. ED did inform surgery regarding pneumoperitoneum. [facility] Medical History (Updated 10/09/21 @ 16:[address] Cholo Duncan MD) Abdominal bloating Anxiety Chronic bronchitis COPD (chronic obstructive pulmonary disease) COPD exacerbation Decreased appetite Depression Filling defect on imaging study History of rectal cancer Hydronephrosis Hydronephrosis, right Hypothyroidism Lung cancer Nicotine abuse Rectal cancer Rectal cancer 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 calculus TIA (transient ischemic attack) Urinary retention Home Medications bupropion HCl 150 mg 24 hr tablet, extended release 150 mg PO QAM 11/28/18 [History Last Taken 04/17/20 06:00] citalopram 40 mg PO DAILY 04/24/19 [History Last Taken 04/17/20 06:00] cyanocobalamin (vitamin B-12) 100 mcg IM Q30D 10/08/19 [History Last Taken 03/22/20] albuterol sulfate 90 mcg/actuation aerosol inhaler 2 puff INHALATION Q4H PRN #18 g 12/09/19 [Rx Last Taken Unknown] potassium chloride 20 meq PO DAILY #30 tab 07/16/21 [Rx Last Taken Unknown] levothyroxine 100 mcg tablet 100 mcg PO DAILY@0600 tab 07/29/21 [History Last Taken Unknown] cefdinir 300 mg PO BID 10/09/21 [History Last Taken Unknown] cholecalciferol (vitamin D3) [Vitamin D3] 25 mcg PO DAILY 10/09/21 [History Last Taken Unknown] pantoprazole 40 mg PO DAILY 10/09/21 [History Last Taken Unknown] sodium bicarbonate 650 mg PO TID 10/09/21 [History Last Taken Unknown] Allergy/AdvReac Type Severity Reaction Status Date / Time ciprofloxacin [From Cipro] Allergy Rash Verified 10/09/21 12:37 ciprofloxacin HCl Allergy Rash Verified 10/09/21 12:37 [From Cipro] Penicillins Allergy Hives Verified 10/09/21 12:37 codeine AdvReac makes her Verified 10/09/21 12:37 feel weird magnesium citrate AdvReac Nausea Verified 10/09/21 12:37 NSAIDS (Non-Steroidal AdvReac kidney Verified 10/09/21 12:37 Anti-Inflamma damage r/t long-term usage advised not to use Family History Father Heart disease Mother Heart disease Sister Heart disease Diabetes Surgical History (Updated 10/09/21 @ 14:00 by Bahman Cespedes) History of bowel resection History of delivery History of cholecystectomy History of colonoscopy (~10/2019) History of colostomy History of hysterectomy History of hysterectomy Social History household members: none Smoking Status: Former smoker Tobacco: How many years used: 53 how long ago did patient quit smoking: Quit 2-5 years prior. second hand exposure: No alcohol intake: never substance use type: does not use caffeine: No what type of physical activity do you participate in: none ROS ROS Narrative No fevers chills, no cp, racing, cough or SOB, no bloody out put from ostomy. No myaglias, joint pain. + Numbness tingling. + Headache. Physical Exam Const alert HEENT normocephalic Mouth: dry mucous membranes Eyes PERRL and EOMs intact bilaterally Resp normal respiratory effort Cardio regular rate and regular rhythm GI GI Narrative: normal color stool in ostomy, no melena. Extremity normal to inspection General Extremity: Negative for edema Skin No no rashes or lesions noted Neuro Sensorium / Orientation: awake and alert Psych affect normal Lab / Micro Data Result Diagrams: 10/09/21 14:15 10/09/21 14:05 Labs: Laboratory Results - last 24 hr 10/09/21 14:05: Sodium 141, Potassium 4.2, Chloride 117 H, Carbon Dioxide 17.0 L, Anion Gap 7, BUN 9, Creatinine 1.09 H, Estim Creat Clear Calc 33.13, Est GFR (MDRD) Af Amer 63, Est GFR (MDRD) Non-Af 52 L, BUN/Creatinine Ratio 8.3 L, Glucose 95, Calcium 8.5, Total Bilirubin 0.30, AST 17, ALT 23, Alkaline Phosphatase 114, Total Protein 6.9, Albumin 3.0 L, Globulin 3.9, Albumin/Globulin Ratio 0.8 L, Lipase 111 10/09/21 14:15: WBC 8.6, RBC 4.45, Hgb 12.8, Hct 41.3, MCV 92.8, MCH 28.8, MCHC 31.0 L, RDW Std Deviation 44.6 H, RDW Coeff of Osmar 13.2, Plt Count 194, MPV 9.0, Immature Gran % (Auto) 0.300, Neut % (Auto) 63.0, Lymph % (Auto) 25.1, Elliott % (Auto) 7.0, Eos % (Auto) 4.4, Baso % (Auto) 0.2, Absolute Neuts (auto) 5.4, Absolute Lymphs (auto) 2.17, Nucleated RBC % 0 10/09/21 16:10: Urine Color Yellow, Urine Clarity Clear, Urine pH 6.5, Ur Specific [place] 1.010, Urine Protein Negative, Urine Glucose (UA) Normal, Urine Ketones Negative, Urine Occult Blood Negative, Urine Nitrite Negative, Urine Bilirubin Negative, Urine Urobilinogen Normal, Ur Leukocyte Esterase 100 H, Urine RBC 0 SEEN, Urine WBC 10-25 SEEN, Ur Squamous Epith Cells 0 SEEN, Urine Bacteria 1+, Urine Mucus 0 SEEN Radiology Impression Abdomen/Pelvis CT 10/09/21 13:11 IMPRESSION: Pneumoperitoneum concerning for perforation, uncertain etiology. Mild left hydronephrosis secondary to 3 mm distal ureteral and UVJ calculi. Mild right hydronephrosis without definite obstructing ureteral calculus. Bilateral renal calculi and small cysts. Postoperative changes in the bowel as above. Individualized dose optimization techniques were used for this CT. at 1551 Reported and signed by: Magda Jiménez MD N.B. : The above Results were Read Back by Magda Jiménez MD to Dr. Perla MD, and understanding confirmed on 10/09/2021 15:47:21 (ET). Electronically Signed: Magda Jiménez MD at 15:50 EST Tel , Service support , ADDENDUM: 10/09/21 1558 IMPRESSION: Pneumoperitoneum concerning for perforation, uncertain etiology. Mild left hydronephrosis secondary to 3 mm distal ureteral and UVJ calculi. Mild right hydronephrosis without definite obstructing ureteral calculus. Bilateral renal calculi and small cysts. Postoperative changes in the bowel as above. Individualized dose optimization techniques were used for this CT. at 1551 Reported and signed by: Magda Jiménez MD N.B. : The above Results were Read Back by Magda Jiménez MD to Dr. Perla MD, and understanding confirmed on 10/09/2021 15:47:21 (ET). Electronically Signed: Magda Jiménez MD at 15:50 EST Tel , Service support , Charges/Coding Visit Charges OBSV E&M: 84628 Initial observation care L2
--- NOTE | 2021-10-09 17:15 | PCM.HP.STD ---
HPI - General General Date of Admission: 10/09/21 HPI Narrative JOSE DE JESUS GOLD, is a 76 F who presents with generalized ill feeling, diarrhea, generalized weakness. This has been going for about a week. She states that normally she has chronic diarrhea per ostomy, but noted less output recently. 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 Remote history of radiation, chemotherapy for rectal cancer. HYPERLIPIDEMIA NEC/NOS Other B-complex deficiencies ? Retention of urine, unspecified 03/15/2010 SECUNDUM ATRIAL SEPT - 2006, Echo 10-10-02: LA 37 mm, PFO (triv R to L shunt-saline), no RWMA, EF 55%, trivial MA, TI PI, RVSP 24 Small bowel obstruction (HCC) 08/02/2020 History of Tobacco use disorder VITAMIN D DEFICIENCY NOS History of anal cancer 2001 osteoporosis Past surgical history BRONCHOSCOPY (RIGID OR FLEXIBLE); DIAGN Left 06/17/2020? [facility] DELIVERY ONLY ? ? COLONOSCOP W/ OR W/O [facility] SPEC - 2004, 2005, 2008, 2012, 2014 CYSTO W/URET STENT INSERTION ? 07/06/2011 CYSTOSCOPY, URETERAL STENT CHANGE/INSERTION Bilateral CYSTOTOMY,STONE BASKET EXTRACT Bilateral 05/14/2019 EXPLORATORY OF ABDOMEN, 09/24/2003, Laparotomy, exp - right hemicolectomy KPOUCH-GRAVITY DRAINAGE ? ? LAPAROSCOPIC CHOLEYCYSTECTOMY, 03/28/2006 LAPAROSCOPIC LYSIS OF INTESTINAL AHDHES., 08/12/2020, [facility] left knee surgery-- Loop Sigmoid Colostomy PROCTECTOMY,PARTIAL,ANASTOMISIS ? 05/26/2005 REMOVAL ADENOIDS,PRIMARY,<12 Y/O ? 1950 REMOVAL OF LUNG,LOBECTOMY Left 06/17/2020, [facility] REMOVAL OF TONSILS,<12 Y/O ? 1950 SMALL BOWEL ? 2003 TOTAL ABDOM HYSTERECTOMY ? ? PFSH Medical History Abdominal bloating Anxiety Chronic bronchitis COPD (chronic obstructive pulmonary disease) COPD exacerbation Decreased appetite Depression Filling defect on imaging study History of rectal cancer Hydronephrosis Hydronephrosis, right Hypothyroidism Lung cancer Nicotine abuse Rectal cancer Rectal cancer 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 calculus TIA (transient ischemic attack) Urinary retention Home Medications bupropion HCl 150 mg 24 hr tablet, extended release 150 mg PO QAM 11/28/18 [History Last Taken 04/17/20 06:00] citalopram 40 mg PO DAILY 04/24/19 [History Last Taken 04/17/20 06:00] cyanocobalamin (vitamin B-12) 100 mcg IM Q30D 10/08/19 [History Last Taken 03/22/20] albuterol sulfate 90 mcg/actuation aerosol inhaler 2 puff INHALATION Q4H PRN #18 g 12/09/19 [Rx Last Taken Unknown] potassium chloride 20 meq PO DAILY #30 tab 07/16/21 [Rx Last Taken Unknown] levothyroxine 100 mcg tablet 100 mcg PO DAILY@0600 tab 07/29/21 [History Last Taken Unknown] cefdinir 300 mg PO BID 10/09/21 [History Last Taken Unknown] cholecalciferol (vitamin D3) [Vitamin D3] 25 mcg PO DAILY 10/09/21 [History Last Taken Unknown] pantoprazole 40 mg PO DAILY 10/09/21 [History Last Taken Unknown] sodium bicarbonate 650 mg PO TID 10/09/21 [History Last Taken Unknown] Allergy/AdvReac Type Severity Reaction Status Date / Time ciprofloxacin [From Cipro] Allergy Rash Verified 10/09/21 12:37 ciprofloxacin HCl Allergy Rash Verified 10/09/21 12:37 [From Cipro] Penicillins Allergy Hives Verified 10/09/21 12:37 codeine AdvReac makes her Verified 10/09/21 12:37 feel weird magnesium citrate AdvReac Nausea Verified 10/09/21 12:37 NSAIDS (Non-Steroidal AdvReac kidney Verified 10/09/21 12:37 Anti-Inflamma damage r/t long-term usage advised not to use Family History Father Heart disease Mother Heart disease Sister Heart disease Diabetes Surgical History History of bowel resection History of delivery History of cholecystectomy History of colonoscopy (~10/2019) History of colostomy History of hysterectomy History of hysterectomy Social History household members: none Smoking Status: Former smoker Tobacco: How many years used: 53 how long ago did patient quit smoking: Quit 2-5 years prior. second hand exposure: No alcohol intake: never substance use type: does not use caffeine: No what type of physical activity do you participate in: none ROS ROS Narrative as per HPI Constitutional Constitutional: Reports fatigue; Denies fever(s) Respiratory/Chest Respiratory/Chest: Denies dyspnea Gastrointestinal Gastrointestinal: Reports diarrhea Genitourinary Genitourinary: Reports hematuria Musculoskeletal Musculoskeletal: Reports muscle weakness Integumentary Integumentary: Reports jaundice Neurologic Neurologic: Reports weakness Vital Signs Vital Signs Vital Signs: 10/09/21 12:41 10/09/21 14:02 Temperature 97.7 F L Temperature Source Oral Pulse Rate 92 74 Respiratory Rate 17 16 Blood Pressure 126/77 H 135/69 H Blood Pressure Mean 93 91 Pulse Ox 94 98 Oxygen Delivery Method Room Air Room Air Weight Weight: 49.8 kg Body Mass Index (BMI) 20.7 Physical Exam Const no apparent distress Resp normal respiratory effort Cardio regular rate GI GI Narrative: abdomen with ostomy appliance in place soft and benign, healed abdominal incisions Extremity no clubbing, cyanosis or edema Results Lab / Micro Data Result Diagrams: 10/09/21 14:15 10/09/21 14:05 Labs: Laboratory Results - last 24 hr 10/09/21 14:05: Sodium 141, Potassium 4.2, Chloride 117 H, Carbon Dioxide 17.0 L, Anion Gap 7, BUN 9, Creatinine 1.09 H, Estim Creat Clear Calc 33.13, Est GFR (MDRD) Af Amer 63, Est GFR (MDRD) Non-Af 52 L, BUN/Creatinine Ratio 8.3 L, Glucose 95, Calcium 8.5, Total Bilirubin 0.30, AST 17, ALT 23, Alkaline Phosphatase 114, Total Protein 6.9, Albumin 3.0 L, Globulin 3.9, Albumin/Globulin Ratio 0.8 L, Lipase 111 10/09/21 14:15: WBC 8.6, RBC 4.45, Hgb 12.8, Hct 41.3, MCV 92.8, MCH 28.8, MCHC 31.0 L, RDW Std Deviation 44.6 H, RDW Coeff of Osmar 13.2, Plt Count 194, MPV 9.0, Immature Gran % (Auto) 0.300, Neut % (Auto) 63.0, Lymph % (Auto) 25.1, [place] % (Auto) 7.0, Eos % (Auto) 4.4, Baso % (Auto) 0.2, Absolute Neuts (auto) 5.4, Absolute Lymphs (auto) 2.17, Nucleated RBC % 0 10/09/21 16:10: Urine Color Yellow, Urine Clarity Clear, Urine pH 6.5, Ur Specific [place] 1.010, Urine Protein Negative, Urine Glucose (UA) Normal, Urine Ketones Negative, Urine Occult Blood Negative, Urine Nitrite Negative, Urine Bilirubin Negative, Urine Urobilinogen Normal, Ur Leukocyte Esterase 100 H, Urine RBC 0 SEEN, Urine WBC 10-25 SEEN, Ur Squamous Epith Cells 0 SEEN, Urine Bacteria 1+, Urine Mucus 0 SEEN Radiology Impression Abdomen/Pelvis CT 10/09/21 13:11 IMPRESSION: Pneumoperitoneum concerning for perforation, uncertain etiology. Mild left hydronephrosis secondary to 3 mm distal ureteral and UVJ calculi. Mild right hydronephrosis without definite obstructing ureteral calculus. Bilateral renal calculi and small cysts. Postoperative changes in the bowel as above. Individualized dose optimization techniques were used for this CT. at 1551 Reported and signed by: Magda Jiménez MD N.B. : The above Results were Read Back by Magda Jiménez MD to Dr. Perla MD, and understanding confirmed on 10/09/2021 15:47:21 (ET). Electronically Signed: Magda Jiménez MD at 15:50 EST Tel , Service support , ADDENDUM: 10/09/21 1558 IMPRESSION: Pneumoperitoneum concerning for perforation, uncertain etiology. Mild left hydronephrosis secondary to 3 mm distal ureteral and UVJ calculi. Mild right hydronephrosis without definite obstructing ureteral calculus. Bilateral renal calculi and small cysts. Postoperative changes in the bowel as above. Individualized dose optimization techniques were used for this CT. at 1551 Reported and signed by: Magda Jiménez MD N.B. : The above Results were Read Back by Magda Jiménez MD to Dr. Perla MD, and understanding confirmed on 10/09/2021 15:47:21 (ET). Electronically Signed: Magda Jiménez MD at 15:50 EST Tel , Service support , Assessment & Plan Assessment/Plan (1) Pneumoperitoneum of unknown etiology: PLAN: Patient presents with abnormal CT scan findings of pneumoperitoneum of unknown etiology No extravasation of GI contrast noted Patient has no abdominal pain and examination is benign - also normal WBC with no left shift of differential Plan: admit for observation, make NPO except for meds with sips of water, IV hydration, IV antibiotics - empirically, consult to Internal Medicine for medical management
[2021-10-09 18:01] VITALS: BP 134/71; PULSE 72; RESP 18; TEMP 36.9; O2SAT 96
[2021-10-09 18:18] VITALS: BMI 21.1
[2021-10-09] MEDS: Lactated Ringers 1,000 ML 125 ML IV (18:35)
[2021-10-09 18:42] VITALS: BP 133/76; PULSE 82; RESP 16; TEMP 37; O2SAT 97
[2021-10-09 19:56] VITALS: BP 135/64; PULSE 85; RESP 16; TEMP 36.7; O2SAT 96
[2021-10-09] MEDS: Acetaminophen 325 MG Tablet 650 MG PO (20:44)
[2021-10-09] MEDS: Sodium Bicarbonate 650 MG Tablet PO (21:51)
[2021-10-09] MEDS: Temazepam 15 MG Capsule PO (21:51)
--- NOTE | 2021-10-09 23:14 | PCS.PANDOC ---
PANDEMIC DOCUMENTATION INITIATED: Date: 10/09/21 Time: 1899
[2021-10-10 01:51] VITALS: BP 111/57; PULSE 71; RESP 16; TEMP 36.4; O2SAT 94
[2021-10-10] MEDS: Lactated Ringers 1,000 ML 125 ML IV (01:55)
[2021-10-10] MEDS: Sodium Bicarbonate 650 MG Tablet PO ×3 (06:12→21:31)
[2021-10-10] MEDS: Levothyroxine 100 MCG Tablet PO (06:12)
[2021-10-10 07:56] VITALS: BP 120/55; PULSE 71; RESP 16; TEMP 36.6; O2SAT 98
[2021-10-10] MEDS: Citalopram 40 MG TABLET PO (09:32)
[2021-10-10] MEDS: Potassium Chloride Oral Tablet 20 MEQ PO (09:32)
[2021-10-10] MEDS: Cholecalciferol (VIT D3) 25 MCG TABLET (1,000 UNITS) PO (09:32)
[2021-10-10] MEDS: buPROPion (XL) 150 MG TABLET.XL PO (09:32)
--- NOTE | 2021-10-10 10:03 | PCM.PN.SRG ---
Subjective Subjective patient denies any abdominal pain has gas and fecal material in ostomy bag feels hungry feels overall well Objective Data Objective Data Vital Signs: Vital Signs Temp Pulse Resp BP Pulse Ox 98 F 71 16 120/55 L 98 10/10/21 07:56 10/10/21 07:56 10/10/21 07:56 10/10/21 07:56 10/10/21 07:56 Oxygen Delivery Method Room Air Weight: 50.712 kg Body Mass Index (BMI) 21.1 Intake & Output: Intake and Output for Last 24 Hours 10/08/21 10/09/21 10/10/21 23:59 23:59 23:59 Intake Total 1160 / 1180 1835.42 / 1835.42 Balance 1160 / 1180 1835.42 / 1835.42 Lab / Micro Data Result Diagrams: 10/09/21 14:15 10/09/21 14:05 Labs: Laboratory Results - last 24 hr 10/09/21 14:05: Sodium 141, Potassium 4.2, Chloride 117 H, Carbon Dioxide 17.0 L, Anion Gap 7, BUN 9, Creatinine 1.09 H, Estim Creat Clear Calc 33.13, Est GFR (MDRD) Af Amer 63, Est GFR (MDRD) Non-Af 52 L, BUN/Creatinine Ratio 8.3 L, Glucose 95, Calcium 8.5, Total Bilirubin 0.30, AST 17, ALT 23, Alkaline Phosphatase 114, Total Protein 6.9, Albumin 3.0 L, Globulin 3.9, Albumin/Globulin Ratio 0.8 L, Lipase 111 10/09/21 14:15: WBC 8.6, RBC 4.45, Hgb 12.8, Hct 41.3, MCV 92.8, MCH 28.8, MCHC 31.0 L, RDW Std Deviation 44.6 H, RDW Coeff of Osmar 13.2, Plt Count 194, MPV 9.0, Immature Gran % (Auto) 0.300, Neut % (Auto) 63.0, Lymph % (Auto) 25.1, [place] % (Auto) 7.0, Eos % (Auto) 4.4, Baso % (Auto) 0.2, Absolute Neuts (auto) 5.4, Absolute Lymphs (auto) 2.17, Nucleated RBC % 0 10/09/21 16:10: Urine Color Yellow, Urine Clarity Clear, Urine pH 6.5, Ur Specific [place] 1.010, Urine Protein Negative, Urine Glucose (UA) Normal, Urine Ketones Negative, Urine Occult Blood Negative, Urine Nitrite Negative, Urine Bilirubin Negative, Urine Urobilinogen Normal, Ur Leukocyte Esterase 100 H, Urine RBC 0 SEEN, Urine WBC 10-25 SEEN, Ur Squamous Epith Cells 0 SEEN, Urine Bacteria 1+, Urine Mucus 0 SEEN Radiography Diagnostic Testing: Radiology Impression Abdomen/Pelvis CT 10/09/21 13:11 IMPRESSION: Pneumoperitoneum concerning for perforation, uncertain etiology. Mild left hydronephrosis secondary to 3 mm distal ureteral and UVJ calculi. Mild right hydronephrosis without definite obstructing ureteral calculus. Bilateral renal calculi and small cysts. Postoperative changes in the bowel as above. Individualized dose optimization techniques were used for this CT. at 1551 Reported and signed by: Magda Jiménez MD N.B. : The above Results were Read Back by Magda Jiménez MD to Dr. Perla MD, and understanding confirmed on 10/09/2021 15:47:21 (ET). Electronically Signed: Magda Jiménez MD at 15:50 EST Tel , Service support , ADDENDUM: 10/09/21 1558 IMPRESSION: Pneumoperitoneum concerning for perforation, uncertain etiology. Mild left hydronephrosis secondary to 3 mm distal ureteral and UVJ calculi. Mild right hydronephrosis without definite obstructing ureteral calculus. Bilateral renal calculi and small cysts. Postoperative changes in the bowel as above. Individualized dose optimization techniques were used for this CT. at 1551 Reported and signed by: Magda Jiménez MD N.B. : The above Results were Read Back by Magda Jiménez MD to Dr. Perla MD, and understanding confirmed on 10/09/2021 15:47:21 (ET). Electronically Signed: Magda Jiménez MD at 15:50 EST Tel , Service support , Physical Exam Const alert and oriented x3 General Appearance: cooperative HEENT normocephalic Neck supple Resp normal respiratory effort GI GI Narrative: abdomen is soft and benign ostomy is functioning and there is gas and fecal material in the bag Extremity no clubbing, cyanosis or edema Assessment & Plan Assessment/Plan (1) Pneumoperitoneum of unknown etiology: PLAN: Patient has a benign abdomen and has been afebrile, she presented with normal WBC with no left shift of differential only findings of pneumoperitoneum of unk etiology on CT scan will re check labs start on clear liquids continue present therapy for observation of another day, if patient remains stable, then can discharge home tomorrow
[2021-10-10 10:22] LABS: Absolute Lymphocyte Count 1.57 X10^3/uL (0.83-4.51); Absolute Neutrophil Count 4.8 X10^3/uL (2.0-7.7); Basophil# 0.02 X10^3/uL; Basophil% 0.3 % (0-1); Eosinophil# 0.34 X10^3/uL; Eosinophils% 4.7 % (0-5); Hematocrit 37.4 % (37-47); Hemoglobin 11.5 g/dL (12.0-15.0); Lymphocyte # 1.57 X10^3/ul (0.83-4.51); Lymphocyte % 21.9 % (19-41); Mean Corp Hgb Conc 30.7 g/dL (32-36); Mean Corpuscular Hgb 28.3 pg (27.0-32.0); Mean Corpuscular Volume 92.1 fL (81-99); Mean Platelet Vol. 9.2 fl (6.2-12.0); Monocyte# 0.43 X10^3/uL; NRBC Flagged by Analyzer 0 % (0-5); Neutrophil # 4.78 X10^3/uL (2.7-7.7); Neutrophil % 66.7 % (47-70); Platelet Count 170 K/mm3 (150-450); RBC Distribution Width CV 13.3 % (11.6-14.6); RBC Distribution Width SD 45.5 fl (35.1-43.9); Red Blood Count 4.06 M/mm3 (4.2-5.4); White Blood Count 7.2 K/mm3 (4.4-11.0)
[2021-10-10 10:47] LABS: Anion Gap 7 (5-15); BUN 7 mg/dL (7-18); BUN/Creat Ratio 5.7 RATIO (10-20); Calcium,Total 7.6 mg/dL (8.5-10.1); Chloride 118 mmol/L (98-107); Creatinine, Serum 1.22 mg/dL (0.55-1.02); EST Glomerular Filtration Rate 46 mL/min (>60); Est Glom Filt Rate - Afr Amer 55 mL/min (>60); Glucose 109 mg/dL (74-106); Potassium 3.2 mmol/L (3.5-5.1); Sodium Level 145 mmol/L (136-145)
--- NOTE | 2021-10-10 11:46 | PN.HOSP_ITS ---
Subjective Subjective Patient states that she had improved bowel function and output via her ostomy today. She reports she just dumped the bag. She has no nausea or vomiting. She states she is hungry. Clear liquid diet was started. Objective Data Objective Data Vital Signs: Vital Signs Temp Pulse Resp BP Pulse Ox 98 F 71 16 120/55 L 98 10/10/21 07:56 10/10/21 07:56 10/10/21 07:56 10/10/21 07:56 10/10/21 07:56 Oxygen Delivery Method Room Air Weight: 50.712 kg Body Mass Index (BMI) 21.1 Intake & Output: Intake and Output for Last 24 Hours 10/08/21 10/09/21 10/10/21 23:59 23:59 23:59 Intake Total 1160 / 1180 2195.42 / 2195.42 Balance 1160 / 1180 2195.42 / 2195.42 Lab / Micro Data Result Diagrams: 10/10/21 10:14 10/10/21 10:14 Labs: Laboratory Results - last 24 hr 10/09/21 14:05: Sodium 141, Potassium 4.2, Chloride 117 H, Carbon Dioxide 17.0 L , Anion Gap 7, BUN 9, Creatinine 1.09 H, Estim Creat Clear Calc 33.13, Est GFR (MDRD) Af Amer 63, Est GFR (MDRD) Non-Af 52 L, BUN/Creatinine Ratio 8.3 L, Glucose 95, Calcium 8.5, Total Bilirubin 0.30, AST 17, ALT 23, Alkaline Phosphatase 114, Total Protein 6.9, Albumin 3.0 L, Globulin 3.9, Albumin/Globulin Ratio 0.8 L, Lipase 111 10/09/21 14:15: WBC 8.6, RBC 4.45, Hgb 12.8, Hct 41.3, MCV 92.8, MCH 28.8, MCHC 31.0 L, RDW Std Deviation 44.6 H, RDW Coeff of Osmar 13.2, Plt Count 194, MPV 9.0, Immature Gran % (Auto) 0.300, Neut % (Auto) 63.0, Lymph % (Auto) 25.1, [place] % (Auto) 7.0, Eos % (Auto) 4.4, Baso % (Auto) 0.2, Absolute Neuts (auto) 5.4, Absolute Lymphs (auto) 2.17, Nucleated RBC % 0 10/09/21 16:10: Urine Color Yellow, Urine Clarity Clear, Urine pH 6.5, Ur Specific [place] 1.010, Urine Protein Negative, Urine Glucose (UA) Normal, Urine Ketones Negative, Urine Occult Blood Negative, Urine Nitrite Negative, Urine Bilirubin Negative, Urine Urobilinogen Normal, Ur Leukocyte Esterase 100 H, Urine RBC 0 SEEN, Urine WBC 10-25 SEEN, Ur Squamous Epith Cells 0 SEEN, Urine Bacteria 1+, Urine Mucus 0 SEEN 10/10/21 10:14: WBC 7.2, RBC 4.06 L, Hgb 11.5 L, Hct 37.4, MCV 92.1, MCH 28.3, MCHC 30.7 L, RDW Std Deviation 45.5 H, RDW Coeff of Osmar 13.3, Plt Count 170, MPV 9.2, Immature Gran % (Auto) 0.400, Neut % (Auto) 66.7, Lymph % (Auto) 21.9, [place] % (Auto) 6.0, Eos % (Auto) 4.7, Baso % (Auto) 0.3, Absolute Neuts (auto) 4.8, Absolute Lymphs (auto) 1.57, Nucleated RBC % 0 10/10/21 10:14: Sodium 145, Potassium 3.2 L, Chloride 118 H, Carbon Dioxide 20.0 L, Anion Gap 7, BUN 7, Creatinine 1.22 H, Estim Creat Clear Calc 29.60, Est GFR (MDRD) Af Amer 55 L, Est GFR (MDRD) Non-Af 46 L, BUN/Creatinine Ratio 5.7 L, Glucose 109 H, Calcium 7.6 L Radiography Diagnostic Testing: Radiology Impression Abdomen/Pelvis CT 10/09/21 13:11 IMPRESSION: Pneumoperitoneum concerning for perforation, uncertain etiology. Mild left hydronephrosis secondary to 3 mm distal ureteral and UVJ calculi. Mild right hydronephrosis without definite obstructing ureteral calculus. Bilateral renal calculi and small cysts. Postoperative changes in the bowel as above. Individualized dose optimization techniques were used for this CT. at 1551 Reported and signed by: Magda Jiménez MD N.B. : The above Results were Read Back by Magda Jiménez MD to Dr. Perla MD, and understanding confirmed on 10/09/2021 15:47:21 (ET). Electronically Signed: Magda Jiménez MD at 15:50 EST Tel , Service support , ADDENDUM: 10/09/21 1558 IMPRESSION: Pneumoperitoneum concerning for perforation, uncertain etiology. Mild left hydronephrosis secondary to 3 mm distal ureteral and UVJ calculi. Mild right hydronephrosis without definite obstructing ureteral calculus. Bilateral renal calculi and small cysts. Postoperative changes in the bowel as above. Individualized dose optimization techniques were used for this CT. at 1551 Reported and signed by: Magda Jiménez MD N.B. : The above Results were Read Back by Magda Jiménez MD to Dr. Perla MD, and understanding confirmed on 10/09/2021 15:47:21 (ET). Electronically Signed: Magda Jiménez MD at 15:50 EST Tel , Service support , Physical Exam Const alert, oriented x3, no apparent distress and average body habitus Constitutional Narrative: Older white female who appears comfortable, nontoxic, sitting up in bed watching television Exam Limitations: no limitations HEENT head/scalp atraumatic Head and Scalp: normocephalic Resp normal respiratory effort, no retractions, no use of accessory muscles and clear to auscultation bilaterally Cardio regular rate, regular rhythm, S1 normal heart sound, S2 normal heart sound, no murmurs, no rub, no gallops, no clicks and no JVD GI normal to inspection, nondistended, normoactive bowel sounds, soft to palpation, non-tender and non-distended GI Narrative: Left lower quadrant ostomy is pink, output is good, bowel sounds are normalized Extremity no clubbing, cyanosis or edema Peripheral Pulses: Yes pulses 2+ throughout Neuro oriented x3, moves all extremities and no focal motor deficits Sensorium / Orientation: awake and alert Speech: speech normal Assessment & Plan Assessment/Plan (1) Pneumoperitoneum of unknown etiology: (2) Hypokalemia: PLAN: Assessment: Pneumoperitoneum of unknown etiology Hypokalemia Ileus-resolved UTI--> diagnosed prior to admission Hypothyroidism Depression CKD stage IIIb History of rectal CA COPD History of hydronephrosis Chronic ostomy Plan: -Etiology of pneumoperitoneum is unknown--> patient is not having any abdominal pain and bowel function has returned -Clear liquid diet started by general surgery -Decrease rate of IV fluids and would consider Hep-Lock if oral intake is adequate -Continue p.o. meds -40 mEq extra of oral potassium today -Repeat lab in a.m. -Possible discharge in the next 24 hours if patient remains improved and tolerates p.o. diet Charges/Coding Visit Charges Inpatient E&M: 22204 Subs Hosp L2
[2021-10-10] MEDS: Lactated Ringers 1,000 ML 75 ML IV (12:14)
[2021-10-10] MEDS: Potassium Chloride Oral Tablet 20 MEQ 40 MEQ PO (12:20)
[2021-10-10 13:48] VITALS: BP 114/61; PULSE 69; RESP 16; TEMP 37.1; O2SAT 98
[2021-10-10 20:00] VITALS: BP 125/67; PULSE 72; RESP 16; TEMP 36.8; O2SAT 95
[2021-10-11 02:00] VITALS: BP 124/65; PULSE 73; RESP 16; TEMP 36.6; O2SAT 95
[2021-10-11 06:00] LABS: Absolute Lymphocyte Count 1.89 X10^3/uL (0.83-4.51); Absolute Neutrophil Count 3.8 X10^3/uL (2.0-7.7); Basophil# 0.01 X10^3/uL; Basophil% 0.2 % (0-1); Eosinophil# 0.35 X10^3/uL; Eosinophils% 5.4 % (0-5); Hematocrit 35.5 % (37-47); Hemoglobin 11.2 g/dL (12.0-15.0); Lymphocyte # 1.89 X10^3/ul (0.83-4.51); Lymphocyte % 29.1 % (19-41); Mean Corp Hgb Conc 31.5 g/dL (32-36); Mean Corpuscular Hgb 28.7 pg (27.0-32.0); Mean Platelet Vol. 9.1 fl (6.2-12.0); Monocyte# 0.46 X10^3/uL; Monocyte% 7.1 % (0-10); NRBC Flagged by Analyzer 0 % (0-5); Neutrophil # 3.78 X10^3/uL (2.7-7.7); Platelet Count 170 K/mm3 (150-450); RBC Distribution Width CV 13.2 % (11.6-14.6); RBC Distribution Width SD 44.1 fl (35.1-43.9); White Blood Count 6.5 K/mm3 (4.4-11.0)
[2021-10-11] MEDS: Sodium Bicarbonate 650 MG Tablet PO (06:18)
[2021-10-11] MEDS: Lactated Ringers 1,000 ML 75 ML IV (06:18)
[2021-10-11] MEDS: Levothyroxine 100 MCG Tablet PO (06:18)
[2021-10-11 06:36] LABS: Anion Gap 8 (5-15); BUN 4 mg/dL (7-18); BUN/Creat Ratio 3.4 RATIO (10-20); Calcium,Total 7.7 mg/dL (8.5-10.1); Chloride 115 mmol/L (98-107); Creatinine, Serum 1.19 mg/dL (0.55-1.02); EST Glomerular Filtration Rate 47 mL/min (>60); Est Glom Filt Rate - Afr Amer 57 mL/min (>60); Estimated Creatinine Clearance 30.35 ml/min; Glucose 69 mg/dL (74-106); Potassium 3.5 mmol/L (3.5-5.1); Sodium Level 144 mmol/L (136-145)
[2021-10-11 08:00] VITALS: BP 133/66; PULSE 74; RESP 18; TEMP 36.8; O2SAT 96
--- NOTE | 2021-10-11 08:07 | PN.SURG_ITS ---
Subjective Subjective patient denies any abdominal pain has air and fecal material per ostomy feels hungry and well overall Objective Data Objective Data Vital Signs: Vital Signs Temp Pulse Resp BP Pulse Ox 97.9 F 73 16 124/65 H 95 10/11/21 02:00 10/11/21 02:00 10/11/21 02:00 10/11/21 02:00 10/11/21 02:00 Oxygen Delivery Method Room Air Weight: 50.712 kg Body Mass Index (BMI) 21.1 Intake & Output: Intake and Output for Last 24 Hours 10/09/21 10/10/21 10/11/21 23:59 23:59 23:59 Intake Total 1160 / 1180 2776.67 / 3076.67 1600 / 1600 Balance 1160 / 1180 2776.67 / 3076.67 1600 / 1600 Medical Nutrition Assessment Dietitian: Malnutrition Criteria Met Start: 10/10/21 13:58 Freq: Status: Active Protocol: Document 10/10/21 13:58 BP (Rec: 10/10/21 13:58 BP [id number]) Nutrition Malnutrition Evidence of Malnutrition Exists Yes Malnutrition (moderate): Acute Illness/Injury Evidenced By Suboptimal Energy Intake ( Moderate),Weight Loss ( Moderate) Clinical Problem Acute Disease or Injury Related Malnutrition Etiology Moderate malnutrition in the context of acute illness as evidenced by inadequate energy intake and unintentional weight loss Signs/Symptoms as evidenced by pt report unintentional weight loss of 2 % x 1 week, poor intake consuming </=50% estimated energy needs at 2 meals per day x 1 week. Status Active Problem Recommendation Dietitian Recommendations/Changes Rec POONAM Regular as pt medically able. Will provide ensure clear with meals for additional trae/protein and adjust ONS as diet advanced. Lab / Micro Data Result Diagrams: 10/11/21 05:14 10/11/21 05:14 Labs: Laboratory Results - last 24 hr 10/10/21 10:14: WBC 7.2, RBC 4.06 L, Hgb 11.5 L, Hct 37.4, MCV 92.1, MCH 28.3, MCHC 30.7 L, RDW Std Deviation 45.5 H, RDW Coeff of Osmar 13.3, Plt Count 170, MPV 9.2, Immature Gran % (Auto) 0.400, Neut % (Auto) 66.7, Lymph % (Auto) 21.9, [place] % (Auto) 6.0, Eos % (Auto) 4.7, Baso % (Auto) 0.3, Absolute Neuts (auto) 4.8, Absolute Lymphs (auto) 1.57, Nucleated RBC % 0 10/10/21 10:14: Sodium 145, Potassium 3.2 L, Chloride 118 H, Carbon Dioxide 20.0 L, Anion Gap 7, BUN 7, Creatinine 1.22 H, Estim Creat Clear Calc 29.60, Est GFR (MDRD) Af Amer 55 L, Est GFR (MDRD) Non-Af 46 L, BUN/Creatinine Ratio 5.7 L, Glucose 109 H, Calcium 7.6 L 10/11/21 05:14: WBC 6.5, RBC 3.90 L, Hgb 11.2 L, Hct 35.5 L, MCV 91.0, MCH 28.7, MCHC 31.5 L, RDW Std Deviation 44.1 H, RDW Coeff of Osmar 13.2, Plt Count 170, MPV 9.1, Immature Gran % (Auto) 0.200, Neut % (Auto) 58.0, Lymph % (Auto) 29.1, [place] % (Auto) 7.1, Eos % (Auto) 5.4 H, Baso % (Auto) 0.2, Absolute Neuts (auto) 3.8, Absolute Lymphs (auto) 1.89, Nucleated RBC % 0 10/11/21 05:14: Sodium 144, Potassium 3.5, Chloride 115 H, Carbon Dioxide 21.0, Anion Gap 8, BUN 4 L, Creatinine 1.19 H, Estim Creat Clear Calc 30.35, Est GFR (MDRD) Af Amer 57 L, Est GFR (MDRD) Non-Af 47 L, BUN/Creatinine Ratio 3.4 L, Glucose 69 L, Calcium 7.7 L Physical Exam Const alert and oriented x3 General Appearance: cooperative Neck supple Resp normal respiratory effort Effort and Inspection: able to speak in complete sentences GI GI Narrative: abdomen is soft and benign, non distended ostomy site - pink and functioning - air and fecal material in bag Assessment & Plan Assessment/Plan (1) Pneumoperitoneum of unknown etiology: PLAN: Will start patient on regular diet if tolerates - will d/c to home this afternoon when I come back and examine her (if patient wants to be d/c'd earlier, she can tell nurses and I will give order over phone)
[2021-10-11] MEDS: Citalopram 40 MG TABLET PO (08:31)
[2021-10-11] MEDS: Potassium Chloride Oral Tablet 20 MEQ PO (08:31)
[2021-10-11] MEDS: Cholecalciferol (VIT D3) 25 MCG TABLET (1,000 UNITS) PO (08:31)
[2021-10-11] MEDS: buPROPion (XL) 150 MG TABLET.XL PO (08:31)
--- NOTE | 2021-10-11 11:54 | CASEMGMT ---
RICHARD ALBRIGHT Assessment: Face to Face with pt for initial transition planning/care coordination assessment. RICHARD ALBRIGHT introduced self and role at [facility], pt voices understanding and consents to assessment. Pt is A/O x4 and answers all questions appropriately at this time. Pt sitting up in chair in no distress. Care providers, pharmacy, and demographics verified/updated. Admitting Dx: weakness, diarrhea, abdominal CT scan PCP:Jorge Luis Specialists:Mukund, surgeon Preferred [facility]acy: [facility] Insurance: [facility], [place] Prescription Benefit: yes LW/HPOA: Pt has a LW/DPOA on file at [facility]. Her DPOA is her dtr, Jessica Johnson. LNOK: Jessica Johnson, dtr; Deni Mondragon dtr Living Arrangements: Pt lives alone in a single story duplex with two steps to enter. Pt reports she is I in ADL's and denies concerns at home. Transportation: Pt dtr transports her to medical appts, Jessica. Pt denies concerns with transportation. DME/HHC/SNF: Pt has a rollator, shower chair and ostomy supplies at home. Pt has had HHC in [place] and from [facility]. Pt denies SNF stays. Pt states no concerns with going home at time of dc. Pt states no further concerns/needs. CM to follow. Advised pt to ask CM if any further question/concerns/needs arise, voices understanding. Pt Goal: Home Plan: Home
[2021-10-11] MEDS: 0.9% Saline Lock 10 ML Syringe IV (13:24)
--- NOTE | 2021-10-11 13:26 | PN.HOSP_ITS ---
Subjective Subjective Patient states her ostomy output has remained stable and overall she is feeling well. Did well with clear liquids and diet has been advanced. Possible discharge later today if she continues to tolerate regular diet. Objective Data Objective Data Vital Signs: Vital Signs Temp Pulse Resp BP Pulse Ox 98.2 F 74 18 133/66 H 96 10/11/21 08:00 10/11/21 08:00 10/11/21 08:00 10/11/21 08:00 10/11/21 08:00 Oxygen Delivery Method Room Air Weight: 50.712 kg Body Mass Index (BMI) 21.1 Intake & Output: Intake and Output for Last 24 Hours 10/09/21 10/10/21 10/11/21 23:59 23:59 23:59 Intake Total 1160 / 1180 2776.67 / 3076.67 1760 / 1760 Balance 1160 / 1180 2776.67 / 3076.67 1760 / 1760 Medical Nutrition Assessment Dietitian: Malnutrition Criteria Met Start: 10/10/21 13:58 Freq: Status: Active Protocol: Document 10/10/21 13:58 BP (Rec: 10/10/21 13:58 BP [id number]) Nutrition Malnutrition Evidence of Malnutrition Exists Yes Malnutrition (moderate): Acute Illness/Injury Evidenced By Suboptimal Energy Intake ( Moderate),Weight Loss ( Moderate) Clinical Problem Acute Disease or Injury Related Malnutrition Etiology Moderate malnutrition in the context of acute illness as evidenced by inadequate energy intake and unintentional weight loss Signs/Symptoms as evidenced by pt report unintentional weight loss of 2 % x 1 week, poor intake consuming </=50% estimated energy needs at 2 meals per day x 1 week. Status Active Problem Recommendation Dietitian Recommendations/Changes Rec POONAM Regular as pt medically able. Will provide ensure clear with meals for additional trae/protein and adjust ONS as diet advanced. Lab / Micro Data Result Diagrams: 10/11/21 05:14 10/11/21 05:14 Labs: Laboratory Results - last 24 hr 10/11/21 05:14: WBC 6.5, RBC 3.90 L, Hgb 11.2 L, Hct 35.5 L, MCV 91.0, MCH 28.7, MCHC 31.5 L, RDW Std Deviation 44.1 H, RDW Coeff of Osmar 13.2, Plt Count 170, MPV 9.1, Immature Gran % (Auto) 0.200, Neut % (Auto) 58.0, Lymph % (Auto) 29.1, [place] % (Auto) 7.1, Eos % (Auto) 5.4 H, Baso % (Auto) 0.2, Absolute Neuts (auto) 3.8, Absolute Lymphs (auto) 1.89, Nucleated RBC % 0 10/11/21 05:14: Sodium 144, Potassium 3.5, Chloride 115 H, Carbon Dioxide 21.0, Anion Gap 8, BUN 4 L, Creatinine 1.19 H, Estim Creat Clear Calc 30.35, Est GFR (MDRD) Af Amer 57 L, Est GFR (MDRD) Non-Af 47 L, BUN/Creatinine Ratio 3.4 L, Glucose 69 L, Calcium 7.7 L Physical Exam Const alert, oriented x3, no apparent distress and average body habitus Constitutional Narrative: Older white female who appears comfortable, nontoxic, sitting up in chair at the bedside watching television Exam Limitations: no limitations HEENT normocephalic and head/scalp atraumatic Head and Scalp: normocephalic Resp normal respiratory effort, no retractions, no use of accessory muscles and clear to auscultation bilaterally Cardio regular rate, regular rhythm, S1 normal heart sound, S2 normal heart sound, no murmurs, no rub, no gallops, no clicks and no JVD GI normal to inspection, nondistended, normoactive bowel sounds, soft to palpation, non-tender and non-distended GI Narrative: Left lower quadrant ostomy is pink, output is good Extremity normal to inspection and no clubbing, cyanosis or edema General Extremity: Negative for edema Peripheral Pulses: Yes pulses 2+ throughout Neuro oriented x3, moves all extremities and no focal motor deficits Sensorium / Orientation: awake and alert Speech: speech normal Assessment & Plan Assessment/Plan (1) Pneumoperitoneum of unknown etiology: (2) Hypokalemia: PLAN: Assessment: Pneumoperitoneum of unknown etiology Hypokalemia-resolved Ileus-resolved UTI--> diagnosed prior to admission Hypothyroidism Depression CKD stage IIIb History of rectal CA COPD History of hydronephrosis Chronic ostomy Plan: -Etiology of pneumoperitoneum is unknown--> patient is not having any abdominal pain and bowel function has returned -Patient tolerating clear liquid diet well -Diet advanced and possible discharge later today -Continue IV fluids -Continue p.o. meds - okay for discharge from medical standpoint Charges/Coding Visit Charges Inpatient E&M: 72219 Subs Hosp L2
--- NOTE | 2021-10-11 13:49 | PCM.DC ---
Discharge Instructions Follow Up Care Test Results: Test results from this visit will be discussed in further detail at your follow-up appointment, if applicable. Discharge Plan Admission Admit Date/Time: 10/09/21 17:13 Primary Reason for Your Visit: abdominal pain, abnormal CT scan Attending Provider: Vanita Duval Primary Care Provider: Elliot Kang Chi Instructions Additional Instructions / Restrictions: regular diet, avoid carbonated beverages for a few days no discharge medications required Discharge Orders/Prescriptions Prescriptions: No Action bupropion HCl 150 mg tablet extended release 24 hr 150 mg PO QAM RF: 0 albuterol sulfate [Ventolin HFA] 90 mcg/actuation HFA aerosol inhaler 2 puff INHALATION Q4H PRN (Reason: shortness of breath or wheezing) Qty: 18 RF: 6 citalopram 40 MG tablet 40 mg PO DAILY RF: 0 levothyroxine 100 mcg tablet 100 mcg PO DAILY@0600 RF: 0 cyanocobalamin (vitamin B-12) 1,000 MCG/ML solution 100 mcg IM Q30D RF: 0 potassium chloride 20 mEq tablet extended release 20 meq PO DAILY Qty: 30 RF: 0 sodium bicarbonate 650 mg tablet 650 mg PO TID RF: 0 pantoprazole 40 mg tablet,delayed release (DR/EC) 40 mg PO DAILY RF: 0 cefdinir 300 mg capsule 300 mg PO BID RF: 0 cholecalciferol (vitamin D3) [Vitamin D3] 25 mcg (1,000 unit) Capsule 25 mcg PO DAILY RF: 0 Referrals / Follow Up: Elliot Kang Chi, MD [Primary Care Provider] - Disposition Discharge Orders: Discharge Patient (Routine); Ordered 10/11/21 Ordered By: Dr. Vanita Duval
--- NOTE | 2021-10-11 13:57 | PCM.DC.BLA ---
Discharge Summary Date of Admission: 10/09/21 Date of Discharge: 10/11/21 Summary: admitted for findings of pneumoperitoneum noted on CT scan - patient with benign abdomen and normal WBC observed for over two night with no clinical problems d/c'd tolerating regular diet - normal ostomy function Meaningful Use Info Meaningful Use Diagnoses (Choose all that apply): None applicable Discharge Plan Admission Admit Date/Time: 10/09/21 17:13 Primary Reason for Your Visit: abdominal pain, abnormal CT scan Attending Provider: Vanita Duval Primary Care Provider: Elliot Kang Chi Instructions Additional Instructions / Restrictions: regular diet, avoid carbonated beverages for a few days no discharge medications required Discharge Orders/Prescriptions Prescriptions: No Action bupropion HCl 150 mg tablet extended release 24 hr 150 mg PO QAM RF: 0 albuterol sulfate [Ventolin HFA] 90 mcg/actuation HFA aerosol inhaler 2 puff INHALATION Q4H PRN (Reason: shortness of breath or wheezing) Qty: 18 RF: 6 citalopram 40 MG tablet 40 mg PO DAILY RF: 0 levothyroxine 100 mcg tablet 100 mcg PO DAILY@0600 RF: 0 cyanocobalamin (vitamin B-12) 1,000 MCG/ML solution 100 mcg IM Q30D RF: 0 potassium chloride 20 mEq tablet extended release 20 meq PO DAILY Qty: 30 RF: 0 sodium bicarbonate 650 mg tablet 650 mg PO TID RF: 0 pantoprazole 40 mg tablet,delayed release (DR/EC) 40 mg PO DAILY RF: 0 cefdinir 300 mg capsule 300 mg PO BID RF: 0 cholecalciferol (vitamin D3) [Vitamin D3] 25 mcg (1,000 unit) Capsule 25 mcg PO DAILY RF: 0 Referrals / Follow Up: Elliot Kang Chi, MD [Primary Care Provider] - Disposition Discharge Orders: Discharge Patient (Routine); Ordered 10/11/21 Ordered By: Dr. Vanita Duval
[2021-10-11 14:30] VITALS: BP 124/58; PULSE 70; RESP 18; TEMP 36.8; O2SAT 95
--- NOTE | 2021-10-11 14:30 | PHA.DC.MR ---
Pharmacy Service has performed discharge medication reconciliation for this patient. The patient's discharge medication list was reviewed for discrepancies and discrepancies were resolved. Home Medications bupropion HCl 150 mg 24 hr tablet, extended release 150 mg PO QAM 11/28/18 citalopram 40 mg PO DAILY 04/24/19 cyanocobalamin (vitamin B-12) 100 mcg IM Q30D 10/08/19 albuterol sulfate 90 mcg/actuation aerosol inhaler 2 puff INHALATION Q4H PRN #18 g 12/09/19 potassium chloride 20 meq PO DAILY #30 tab 07/16/21 levothyroxine 100 mcg tablet 100 mcg PO DAILY@0600 tab 07/29/21 cefdinir 300 mg PO BID 10/09/21 cholecalciferol (vitamin D3) [Vitamin D3] 25 mcg PO DAILY 10/09/21 pantoprazole 40 mg PO DAILY 10/09/21 sodium bicarbonate 650 mg PO TID 10/09/21
== END 2021-10-11 16:00 | disposition home or self-care (01) | DRG 394 ==
LOC: ED 16:17 → MS3 17:26
PROVIDERS: Internal Medicine; Admitting Provider Surgery; Emergency Provider Emergency Medicine; PCP Family Medicine Geriatric Medicine; Visit Provider Surgery
DX: K66.8 Other specified disorders of peritoneum (principal); K56.7 Ileus, unspecified; N13.6 Pyonephrosis; N18.32 Chronic kidney disease, stage 3b; E87.6 Hypokalemia; J44.9 Chronic obstructive pulmonary disease, unspecified; E78.5 Hyperlipidemia, unspecified; E03.9 Hypothyroidism, unspecified; M81.0 Age-related osteoporosis without current pathological fracture; Z93.3 Colostomy status; F32.A Depression, unspecified; F41.9 Anxiety disorder, unspecified; Z79.890 Hormone replacement therapy; Z92.3 Personal history of irradiation; Z85.048 Personal history of other malignant neoplasm of rectum, rectosigmoid junction, and anus; Z85.118 Personal history of other malignant neoplasm of bronchus and lung; Z86.73 Personal history of transient ischemic attack (TIA), and cerebral infarction without residual deficits; Z87.891 Personal history of nicotine dependence; Z90.49 Acquired absence of other specified parts of digestive tract
CPT/HCPCS: 36415; 74019; 74177; 80048; 80053; 81001; 83690; 85025; 87077; 87086; 87088; 87186; 97802; 99285; J7030; J7120; Q9967; A4216; J2405

== ENCOUNTER → 2021-10-25 16:22 | Outpatient (CLI) | payer MEDICARE, OTHER, SELFPAY ==
--- NOTE | 2021-10-25 17:00 | CT_ITS ---
STUDY: CT ABDOMEN AND PELVIS WITH CONTRAST REASON FOR EXAM: Female, 76 years old. ABD. PAIN RADIATION DOSAGE (If Supplied By Facility): CTDIvol = ( 10.61 ) mGy, DLP = ( 617.02 ) mGycm TECHNIQUE: Transaxial images were obtained from the dome of the diaphragm to the symphysis pubis without oral contrast. Oral and amp; IV Gastrografin and amp; 100mL Isovue-370 was administered. Sagittal and coronal images were reconstructed. The late images were obtained and reviewed as well. Individualized dose optimization techniques were used for this CT. COMPARISON: 10/09/2021 FINDINGS: The visualized lung bases are unremarkable. The visualized portions of the heart are within normal limits. Normal liver. There is non-visualization of the gallbladder, which may be secondary to either contraction or a prior cholecystectomy. Normal spleen. Normal pancreas. Normal bilateral adrenal glands. There is mild stable right sided hydroureteronephrosis. There are nonobstructing right renal calculi measuring up to 4 mm. There are bilateral renal cysts. There is left-sided hydroureteronephrosis secondary to 2 abutting calculi within the distal ureter both measuring up to 2.5 mm there are additional nonobstructing right renal calculi measuring up to 3.6 mm Normal visualized stomach. Normal small intestine. There is a colostomy within the left lower quadrant. There is non-visualization of the appendix. There is diffuse atherosclerotic calcification of the abdominal aorta, without a demonstrated aneurysm. Normal inferior vena cava. Normal retroperitoneum. Normal urinary bladder. There is stable trace fluid within the pelvis. Normal abdominal wall. There are diffuse degenerative changes of the visualized lumbar spine. The bones are diffusely demineralized. CT/Abdomen/Pelvis WITH Contrast IMPRESSION: Left sided hydroureteronephrosis secondary to 2.5 mm calculi within the distal ureter. Bilateral nonobstructing renal calculi measuring up to 4 mm on the left. Atherosclerosis. Electronically Signed: Adelita Gregg MD at 21:07 EST Tel , Service support ,
[2021-10-25 17:02] LABS: Absolute Lymphocyte Count 3.24 X10^3/uL (0.83-4.51); Absolute Neutrophil Count 5.7 X10^3/uL (2.0-7.7); Basophil# 0.01 X10^3/uL; Basophil% 0.1 % (0-1); Eosinophil# 0.15 X10^3/uL; Eosinophils% 1.5 % (0-5); Hematocrit 38.5 % (37-47); Hemoglobin 12.1 g/dL (12.0-15.0); Lymphocyte # 3.24 X10^3/ul (0.83-4.51); Lymphocyte % 33.3 % (19-41); Mean Corp Hgb Conc 31.4 g/dL (32-36); Mean Corpuscular Hgb 28.5 pg (27.0-32.0); Mean Corpuscular Volume 90.8 fL (81-99); Mean Platelet Vol. 9.1 fl (6.2-12.0); Monocyte# 0.57 X10^3/uL; Monocyte% 5.9 % (0-10); NRBC Flagged by Analyzer 0 % (0-5); Neutrophil # 5.73 X10^3/uL (2.7-7.7); Neutrophil % 58.9 % (47-70); Platelet Count 219 K/mm3 (150-450); RBC Distribution Width CV 13.5 % (11.6-14.6); RBC Distribution Width SD 44.3 fl (35.1-43.9); Red Blood Count 4.24 M/mm3 (4.2-5.4); White Blood Count 9.7 K/mm3 (4.4-11.0)
[2021-10-25 17:14] LABS: ALB/GLOB Ratio 0.8 RATIO (0.9-2.4); AST(SGOT) 15 U/L (15-37); Alanine Aminotransfer ALT/SGPT 21 U/L (13-56); Albumin, Serum 3.2 g/dL (3.2-5.0); Alkaline Phosphatase 91 U/L (45-117); Anion Gap 9 (5-15); BUN 14 mg/dL (7-18); BUN/Creat Ratio 8.9 RATIO (10-20); Calcium,Total 7.5 mg/dL (8.5-10.1); Chloride 109 mmol/L (98-107); Creatinine, Serum 1.58 mg/dL (0.55-1.02); EST Glomerular Filtration Rate 34 mL/min (>60); Est Glom Filt Rate - Afr Amer 41 mL/min (>60); Glucose 85 mg/dL (74-106); Magnesium 1.7 mg/dL (1.6-2.6); Phosphorus 2.7 mg/dL (2.5-4.9); Potassium 5.1 mmol/L (3.5-5.1); Protein, Total 7.2 g/dL (6.4-8.2); Sodium Level 139 mmol/L (136-145)
== END ==
PROVIDERS: Internal Medicine Nephrology; PCP Family Medicine Geriatric Medicine; Referring Provider Family Medicine Geriatric Medicine; Visit Provider Family Medicine Geriatric Medicine
DX: N17.9 Acute kidney failure, unspecified (principal); N39.0 Urinary tract infection, site not specified; E83.42 Hypomagnesemia; E87.6 Hypokalemia; R10.9 Unspecified abdominal pain
CPT/HCPCS: 36415; 74177; 80053; 83735; 84100; 85025; 87077; 87086; 87088; 87186; Q9967; A4216

== ENCOUNTER → 2021-11-02 11:21 | Outpatient (CLI) | payer MEDICARE, OTHER, SELFPAY ==
[2021-11-02 12:27] LABS: Absolute Lymphocyte Count 2.89 X10^3/uL (0.83-4.51); Absolute Neutrophil Count 3.3 X10^3/uL (2.0-7.7); Basophil# 0.01 X10^3/uL; Basophil% 0.1 % (0-1); Eosinophil# 0.32 X10^3/uL; Eosinophils% 4.6 % (0-5); Hematocrit 42.7 % (37-47); Hemoglobin 13.1 g/dL (12.0-15.0); Lymphocyte # 2.89 X10^3/ul (0.83-4.51); Lymphocyte % 41.2 % (19-41); Mean Corp Hgb Conc 30.7 g/dL (32-36); Mean Corpuscular Hgb 27.8 pg (27.0-32.0); Mean Corpuscular Volume 90.7 fL (81-99); Mean Platelet Vol. 9.5 fl (6.2-12.0); Monocyte# 0.47 X10^3/uL; Monocyte% 6.7 % (0-10); NRBC Flagged by Analyzer 0 % (0-5); Neutrophil # 3.31 X10^3/uL (2.7-7.7); Neutrophil % 47.1 % (47-70); Platelet Count 227 K/mm3 (150-450); RBC Distribution Width CV 13.2 % (11.6-14.6); RBC Distribution Width SD 43.8 fl (35.1-43.9); Red Blood Count 4.71 M/mm3 (4.2-5.4)
[2021-11-02 12:42] LABS: Vitamin D,25 Hydroxy 28.9 ng/mL
[2021-11-02 12:50] LABS: ALB/GLOB Ratio 0.8 RATIO (0.9-2.4); AST(SGOT) 19 U/L (15-37); Alanine Aminotransfer ALT/SGPT 22 U/L (13-56); Albumin, Serum 3.2 g/dL (3.2-5.0); Alkaline Phosphatase 96 U/L (45-117); Anion Gap 9 (5-15); BUN 18 mg/dL (7-18); BUN/Creat Ratio 15.9 RATIO (10-20); Calcium,Total 8.2 mg/dL (8.5-10.1); Chloride 111 mmol/L (98-107); Creatinine, Serum 1.13 mg/dL (0.55-1.02); EST Glomerular Filtration Rate 50 mL/min (>60); Est Glom Filt Rate - Afr Amer 60 mL/min (>60); Globulin 4.2 g/dL (2.2-4.2); Glucose 90 mg/dL (74-106); Phosphorus 2.3 mg/dL (2.5-4.9); Potassium 4.6 mmol/L (3.5-5.1); Protein, Total 7.4 g/dL (6.4-8.2); Sodium Level 141 mmol/L (136-145); Thyroid Stim Hormone (TSH) 0.14 uIU/mL (0.358-3.74)
== END ==
PROVIDERS: PCP Family Medicine Geriatric Medicine; Visit Provider Internal Medicine Nephrology
DX: N17.9 Acute kidney failure, unspecified (principal); E83.42 Hypomagnesemia; E87.6 Hypokalemia; E55.9 Vitamin D deficiency, unspecified; R53.83 Other fatigue
CPT/HCPCS: 36415; 80053; 82306; 84100; 84443; 85025

== ENCOUNTER 2021-11-15 13:43 | Outpatient (CLI) | payer MEDICARE, OTHER, SELFPAY ==
[2021-11-15 14:33] LABS: Albumin, Serum 3.2 g/dL (3.2-5.0); BUN 14 mg/dL (7-18); BUN/Creat Ratio 13.7 RATIO (10-20); Calcium,Total 8.6 mg/dL (8.5-10.1); Chloride 111 mmol/L (98-107); Creatinine, Serum 1.02 mg/dL (0.55-1.02); EST Glomerular Filtration Rate 56 mL/min (>60); Est Glom Filt Rate - Afr Amer 68 mL/min (>60); Glucose 87 mg/dL (74-106); Phosphorus 2.8 mg/dL (2.5-4.9); Potassium 3.7 mmol/L (3.5-5.1); Sodium Level 140 mmol/L (136-145)
== END 2021-11-15 23:59 | disposition short-term general hospital (02) ==
LOC: LAB 13:45
PROVIDERS: PCP Family Medicine Geriatric Medicine; Referring Provider Internal Medicine Nephrology; Visit Provider Internal Medicine Nephrology
DX: N17.9 Acute kidney failure, unspecified (principal)
CPT/HCPCS: 36415; 80069

== ENCOUNTER 2021-11-19 06:00 | Day surgery (SDC) | payer MEDICARE, OTHER, SELFPAY ==
--- NOTE | 2021-11-19 | CALC_PTH ---
PATIENT: JOSE DE JESUS GOLD LOC: [facility] [place] U#:[id number] AGE/SX: 76/F ROOM: RE11/19/[address]: Dr. Minal Morrison MD : 1945 BED: DIS: 11/19/2021 SPEC #: [id number] RECD: 11/19/21 11:32 STATUS: ELAYNE REPatricia #: [id number] GABRIELE: 11/19/21 00:[address]: Minal Morrison DEPT: SURGICAL PATHOLOGY RECD BY: Thomas Miguel ENTERED: 11/19/21 11:32 SP TYPE: Calculi OTHR DR: Dr. Elliot Kang MD Tissues: CALCULI Procedures: Surgery Specimen Level I HEADER OPERATION: Cysto, ureteroscopy, retro, laser, stent PRE-OP DIAGNOSIS: Calculus of ureter TISSUE SUBMITTED: Ureteral calculi GROSS DIAGNOSIS Fragments of stone, clinically ureteral calculi. SJ:tabby 11/22/2021 COMMENT If chemical analysis is requested on this specimen, please notify the laboratory. GROSS DESCRIPTION Received without fixative labeled with the patient's name and designated ureteral calculi. The specimen consists of multiple fragments of verduzco-brown stone measuring in aggregate 0.4 x 0.3 x 0.1 cm. The specimen is for gross identification only. The entire specimen is saved if stone analysis is requested. / SJ:tabby 11/19/2021 CPT: 67175
[2021-11-19 06:34] VITALS: BP 101/70; PULSE 74; RESP 17; TEMP 36.4; O2SAT 98; BMI 20.8
[2021-11-19] MEDS: Lactated Ringers 1,000 ML 15 ML IV ×2 (06:39→08:44)
[2021-11-19] MEDS: Lubricating Jelly 60 GM Tube 30 GM (07:15)
[2021-11-19 08:16] VITALS: BP 101/70; BP 136/71; PULSE 91; RESP 16; TEMP 36.1; O2SAT 96
[2021-11-19 08:40] VITALS: BP 101/70; BP 138/73; PULSE 85; RESP 16; TEMP 36.1; O2SAT 97
--- NOTE | 2021-11-19 08:40 | PCM.DC ---
Discharge Instructions Diet Discharge Diet: No restrictions Activity Discharge Activity: Return to Normal Activity Dressing / Incision Call your doctor if you observe: Fever of 101 or Higher, Inability to urinate, Inability to have a bowel movement and Uncontrolled pain Follow Up Care Please Follow Up With: Minal Morrison MD When: next week for stent removal Test Results: Test results from this visit will be discussed in further detail at your follow-up appointment, if applicable. Discharge Plan Admission Attending Provider: Minal Morrison Primary Care Provider: Elliot Kang Chi Discharge Orders/Prescriptions Prescriptions: New oxycodone-acetaminophen [Percocet] 5-325 mg tablet 1 tab PO Q8H PRN (Reason: pain) 5 Days Qty: 20 RF: 0 phenazopyridine [phenazopyridine] 100 MG tablet 100 mg PO TID Qty: 30 RF: 0 cephalexin [cephalexin] 500 MG capsule 500 mg PO Q12 3 Days Qty: 6 RF: 0 Continued bupropion HCl 150 mg tablet extended release 24 hr 150 mg PO QAM RF: 0 albuterol sulfate [Ventolin HFA] 90 mcg/actuation HFA aerosol inhaler 2 puff INHALATION Q4H PRN (Reason: shortness of breath or wheezing) Qty: 18 RF: 6 citalopram 40 MG tablet 40 mg PO DAILY RF: 0 levothyroxine 100 mcg tablet 100 mcg PO DAILY@0600 RF: 0 cyanocobalamin (vitamin B-12) 1,000 MCG/ML solution 100 mcg IM Q30D RF: 0 sodium bicarbonate 650 mg tablet 650 mg PO TID RF: 0 cholecalciferol (vitamin D3) [Vitamin D3] 25 mcg (1,000 unit) Capsule 25 mcg PO DAILY RF: 0 Referrals / Follow Up: Elliot Kang Chi, MD [Primary Care Provider] - Disposition Disposition (needs filled in before D/C Order can be placed): Home, Self Care
--- NOTE | 2021-11-19 08:43 | OP.PCM_ITS ---
Problems Associated Problem List Diagnoses (1) Ureteral calculus: Report of Operation Date of Procedure: 11/19/21 Pre-Operative Diagnosis: Left ureteral calculus Post-Operative Diagnosis: Same Surgery/Procedure Performed:: Cystoscopy with left ureteroscopy, holmium laser lithotripsy, stone basket extraction and left ureteral stent insertion Surgeon: Minal Morrison Type of Anesthesia: General Description of Procedure: The patient is a 76-year-old female found to have a left ureteral calculus that has not passed on its own. She presents for definitive intervention. Informed consent was obtained. The patient was taken to the operating room and placed on the operating room table. Anesthesia monitored the head, neck, airway, IV access and vital signs throughout the case. Once anesthesia was appropriate ministered the patient was placed into dorsolithotomy position was prepped and draped in usual sterile fashion. The cystoscope was inserted through the urethra under direct visualization into the urinary bladder. Secondary to her history of radiation for her anal cancer, the skin there is very thick and friable. The bladder mucosa revealed no evidence of abnormality. The left ureteral orifice was identified and intubated with a 0.035 Glidewire. A second Glidewire was passed alongside. I was unable to achieve access to the ureter with a flexible ureteroscope. A semirigid ureteroscope was then used with the addition of an 0.025 Glidewire and access was obtained to the distal ureter where a 8 mm stone was identified. A 200 ?m laser fiber was used to break the stone into small pieces which were then stone basket retrieved and sent for analysis. The indwelling safety wire was used along with the cystoscope to place a 6 Albanian 22 cm JJ stent with good curling in the renal pelvis as well as the urinary bladder. The patient's bladder was then emptied and the case was terminated. The patient was awakened and taken to the recovery room in good condition. There were no complications during this procedure. Grafts/Implants Used: 6x22 JJ stent Complications None Admit VTE Documentation VTE Present on Admission: Yes VTE Mechan Device Prophylaxis: SCD's VTE Pharm Prophylaxis ordered?: No Reason prophylaxis not ordered:: Treatment Not Indicated
[2021-11-19 08:45] VITALS: BP 101/70; BP 140/73; PULSE 85; RESP 16; O2SAT 98
[2021-11-19 09:16] VITALS: BP 101/70; BP 120/70; PULSE 94; RESP 16; TEMP 36.6; O2SAT 95
== END 2021-11-19 23:59 | disposition home or self-care (01) ==
LOC: SDC 06:02 → AC 06:04
PROVIDERS: PCP Family Medicine Geriatric Medicine; Referring Provider Urology; Visit Provider Urology
PROC: 0TJ98ZZ Inspection of Ureter, Via Natural or Artificial Opening Endoscopic (ICD-10-PCS; CPT 52352; principal; 2021-11-19 07:20)
DX: N20.1 Calculus of ureter (principal); J44.9 Chronic obstructive pulmonary disease, unspecified; N18.32 Chronic kidney disease, stage 3b; E03.9 Hypothyroidism, unspecified; F41.9 Anxiety disorder, unspecified; F32.A Depression, unspecified; M19.90 Unspecified osteoarthritis, unspecified site; M81.0 Age-related osteoporosis without current pathological fracture; N39.46 Mixed incontinence; Z79.899 Other long term (current) drug therapy; Z86.73 Personal history of transient ischemic attack (TIA), and cerebral infarction without residual deficits; Z87.891 Personal history of nicotine dependence
CPT/HCPCS: 52356; 00918; 76000; 88300; J7120; C2625; J2405

== ENCOUNTER 2021-11-30 10:15 | Outpatient (CLI) | payer MEDICARE, OTHER, SELFPAY ==
[2021-11-30 10:51] LABS: Absolute Lymphocyte Count 2.28 X10^3/uL (0.83-4.51); Absolute Neutrophil Count 6.5 X10^3/uL (2.0-7.7); Basophil# 0.01 X10^3/uL; Basophil% 0.1 % (0-1); Hematocrit 41.7 % (37-47); Hemoglobin 13.4 g/dL (12.0-15.0); Lymphocyte # 2.28 X10^3/ul (0.83-4.51); Lymphocyte % 23.2 % (19-41); Mean Corp Hgb Conc 32.1 g/dL (32-36); Mean Corpuscular Hgb 28.2 pg (27.0-32.0); Mean Corpuscular Volume 87.8 fL (81-99); Mean Platelet Vol. 8.9 fl (6.2-12.0); Monocyte# 0.68 X10^3/uL; Monocyte% 6.9 % (0-10); NRBC Flagged by Analyzer 0 % (0-5); Neutrophil # 6.54 X10^3/uL (2.7-7.7); Neutrophil % 66.5 % (47-70); Platelet Count 282 K/mm3 (150-450); RBC Distribution Width SD 44.9 fl (35.1-43.9); Red Blood Count 4.75 M/mm3 (4.2-5.4); White Blood Count 9.8 K/mm3 (4.4-11.0)
[2021-11-30 11:41] LABS: Erythrocyte Sedimentation Rate 39 mm/hr (0-30)
[2021-11-30 12:06] LABS: ALB/GLOB Ratio 0.7 RATIO (0.9-2.4); AST(SGOT) 14 U/L (15-37); Alanine Aminotransfer ALT/SGPT 26 U/L (13-56); Alkaline Phosphatase 104 U/L (45-117); Anion Gap 8 (5-15); BUN 13 mg/dL (7-18); BUN/Creat Ratio 11.2 RATIO (10-20); Calcium,Total 9.2 mg/dL (8.5-10.1); Chloride 112 mmol/L (98-107); Creatinine, Serum 1.16 mg/dL (0.55-1.02); EST Glomerular Filtration Rate 48 mL/min (>60); Est Glom Filt Rate - Afr Amer 58 mL/min (>60); Free T3 2.4 pg/mL (2.18-3.98); Globulin 4.6 g/dL (2.2-4.2); Glucose 95 mg/dL (74-106); LDH 158 U/L (84-246); Potassium 3.9 mmol/L (3.5-5.1); Protein, Total 7.6 g/dL (6.4-8.2); Sodium Level 137 mmol/L (136-145); T4 Total, Thyroxin 11.6 ug/dL (4.8-13.9); Thyroid Stim Hormone (TSH) 0.03 uIU/mL (0.358-3.74)
[2021-12-01 14:09] LABS: PROEL- A/G Ratio 0.9 (0.7-1.7); PROEL- Albumin 3.3 g/dL (2.9-4.4); PROEL- Alpha-1 Globulin 0.3 g/dL (0.0-0.4); PROEL- Alpha-2 Globulin 1.1 g/dL (0.4-1.0); PROEL- Beta Globulin 1.2 g/dL (0.7-1.3); PROEL- Gamma Globulin 1.1 g/dL (0.4-1.8); PROEL- Globulin, Total 3.7 g/dL (2.2-3.9)
== END 2021-11-30 23:59 | disposition short-term general hospital (02) ==
PROVIDERS: PCP Family Medicine Geriatric Medicine; Visit Provider Internal Medicine Gastroenterology
DX: R19.7 Diarrhea, unspecified (principal); R19.4 Change in bowel habit; Z85.048 Personal history of other malignant neoplasm of rectum, rectosigmoid junction, and anus; E03.9 Hypothyroidism, unspecified
CPT/HCPCS: 36415; 80053; 83615; 84165; 84436; 84443; 84481; 85025; 85652; 86140

== ENCOUNTER 2021-12-07 13:18 | Day surgery (SDC) | payer MEDICARE, OTHER, SELFPAY ==
--- NOTE | 2021-12-07 | EGD_PTH ---
PATIENT: JOSE DE JESUS GOLD LOC: [place] U#:[id number] AGE/SX: 76/F ROOM: RE12/07/[address]: Dr. Michel Tomlinson DO : 1945 BED: DIS: 12/07/2021 SPEC #: [id number] RECD: 12/07/21 17:16 STATUS: ELAYNE JOSEP #: [id number] GABRIELE: 12/07/21 00:[address]: Michel Tomlinson DEPT: SURGICAL PATHOLOGY RECD BY: Thomas Miguel ENTERED: 12/08/21 09:53 SP TYPE: EGD BIOPSY OT DR: Dr. Elliot Kang MD Tissues: A - Duodenum, NOS B - Gastric mucous membrane C - Esophageal mucous membrane D - Gastric mucous membrane E - Ileum, NOS F - COLON BIOPSY Procedures: Special Stain Group II Surgery Specimen Level IV Alcian Blue/PAS (control) HEADER OPERATION: Colonoscopy, EGD (MAC) with biopsy PRE-OP DIAGNOSIS: Change in bowel habits, diarrhea TISSUE SUBMITTED: A ? Duodenum biopsy, B ? Antrum biopsy, H. pylori, C ? Distal esophagus, D ? Anastomosis biopsy, E ? Terminal ileum biopsy, F ? Random colon biopsy MICROSCOPIC DIAGNOSIS A. Duodenum, biopsy: No pathologic change. B. Gastric antrum, biopsy: Chronic gastritis. See comment. C. Distal esophagus, biopsy: Gastroesophageal junctional mucosa with chronic inflammation. Focal changes of reflux. No evidence of goblet cell metaplasia. See comment. D. Anastomosis, biopsy: Fragments of small bowel with no significant pathologic change. E. Terminal ileum, biopsy: Minimal focal acute ileitis. F. Colon, random biopsy: No pathologic change. AM:tabby 12/09/2021 COMMENT B. The results of immunohistochemistry for Helicobacter pylori will be reported separately ([id number]). C. Alcian blue/PAS stain with matched control supports the above diagnosis. MICROSCOPIC DESCRIPTION Slides are reviewed. GROSS DESCRIPTION A - Received in fixative is one container labeled with the patient's name and designated duodenum biopsy. The specimen consists of two irregular fragments of light verduzco soft tissue that in aggregate measure 0.6 x 0.2 x 0.1 cm. The specimen is totally submitted in one cassette. B - Received in fixative is one container labeled with the patient's name and designated antrum biopsy. The specimen consists of two irregular fragments of light verduzco soft tissue that in aggregate measure 0.6 x 0.5 x 0.1 cm. The specimen is totally submitted in one cassette. C - Received in fixative is one container labeled with the patient's name and designated distal esophagus biopsy. The specimen consists of multiple irregular fragments of light verduzco soft tissue that in aggregate measure 0.7 x 0.6 x 0.1 cm. The specimen is totally submitted in one cassette. D - Received in fixative is one container labeled with the patient's name and designated anastomosis biopsy. The specimen consists of two irregular fragments of light verduzco soft tissue that in aggregate measure 0.7 x 0.5 x 0.1 cm. The specimen is totally submitted in one cassette. E - Received in fixative is one container labeled with the patient's name and designated terminal ileum biopsy. The specimen consists of two irregular fragments of light verduzco soft tissue that in aggregate measure 0.7 x 0.6 x 0.1 cm. The specimen is totally submitted in one cassette. F - Received in fixative is one container labeled with the patient's name and designated random colon biopsy. The specimen consists of multiple irregular fragments of light verduzco soft tissue that in aggregate measure 1 x 0.6 x 0.1 cm. The specimen is totally submitted in one cassette. / AM:tabby 12/08/2021 TC:2 CPT: 29744 x6, 36172
[2021-12-07 13:51] VITALS: BP 121/78; PULSE 87; RESP 18; TEMP 36.6; O2SAT 98; BMI 20.5
[2021-12-07] MEDS: Lactated Ringers 1,000 ML 15 ML IV (14:00)
--- NOTE | 2021-12-07 14:30 | HP.PCM_ITS ---
History and Physical Date of Admission: 12/07/21 76 F who presents to the office today for bloating and diarrhea. She has a complicated past medical history of adenocarcinoma of the lung diagnosed in 2019 status post upper lobectomy and mediastinal lymph node dissection. She also has a previous diagnosis of anal cancer status post radiation and chemotherapy with primary anastomosis. She developed severe bile acid diarrhea after undergoing a cholecystectomy and ended up having in and loop colostomy placed. She has had multiple bowel surgeries for small bowel obstruction, possible volvulus and possible intussusception versus internal hernia repair. She is not able to eat much at this time due to the fact that she gets very gassy and has to have a lot of diarrhea. She says that this has been going on a long time and they have tried subcutaneous injections of octreotide which resulted in severe constipation, codeine to slow her bowels which resulted in dizziness and weakness, Imodium [id number] and multiple other treatments in order to relieve her diarrhea. She has a 250 cc colostomy bag she that she can empty as much as 10-15 times a day. She does not know the last time she had formed stool despite the fact that she has a colostomy and not an ileostomy. She has been on PPI therapy for the bloating gas. She has not found anything that helps the bloating. The only thing the counter helps is after she goes to the bathroom or in between she can burp her her colostomy bag. She also still has some discharge that comes out of the rectum. She does not get any stool from the rectum but she gets a lot of discharge. Referred by PCP for evaluation of abdominal pain, GERD, decreased appetite, increased gas noted in colostomy. GasX and Beano attempted without effect. The only way that she could not experience any symptoms is that she does not eat anything. So this is resulted in her losing a lot of weight and it makes it difficult to maintain her current weight. She was recently admitted to [facility] hospital 07.13.21 for treatment of hydronephrosis, TOMÁS, UTI; during this hospitalization she was treated with Zosyn. Following this began having difficulty with increased gas, feeling of fullness and reduced output of abnormal stool that seems to dump, reports that stool often contains undigested food and whole pills. She was readmitted to [facility] 10.09.21 for pneumoperitoneum and hypokalemia. Antibiotic use for UTI treatment includes: IV antibiotics during hospitalization 07.13.21, PCP then put her on t hree rounds of antibiotics, then antibiotics during second hospitalization, Dr. Morrison placed her on two days of antibiotics most recently over this past weekend. Her current diet consists of soft and easy to digest foods: mashed potatoes, baked potatoes, cream of wheat, chicken pot pie because she is concerned about discomfort. 8mm kidney stone removed from left kidney 11.26.21, reports this was thought to be possible cause of symptoms. Dr. Wiley, glass curvature gauger recently stopped potassium and this is making daughter nervous. She has not had recent testing of stools Last colonoscopy three years prior by Dr. Stevenson. Denies history of EGD. Additional medical history includes non-small cell lung cancer adenocarcinoma type (pT1b pN0 staging) found during screening 04.08.2020, left upper lobectomy and mediastinal lymphadenectomy 06.17.2020; anal cancer 2001 with colostomy, chemotherapy and radiation therapy; neuropathy RLE following radiation therapy. TOMÁS, ureteral calculi with hydronephrosis, respiratory failure with hypoxemia, asthma/COPD overlap syndrome, cholecystectomy, bowel resection, hysterectomy. 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, oncology ROS Const Constitutional: Positive for fatigue, weakness and weight change Cardio Cardiology: Positive for shortness of breath Gastro GI: Positive for bloating and diarrhea Genitourinary-Female: Positive for urinary incontinence Musc Musculoskeletal: Positive for abnormal gait, numbness, tingling and Arthritis Neuro Neurology: Positive for abnormal gait, weakness, numbness and tingling Psych Psychiatric: Positive for anxiety and Positive for depression Endo Endocrine: Positive for fatigue and weight change Casey/Lymp Hematologic/Lymphatic: Positive for easy bruising Exam Const General: cooperative and comfortable Nutritional Appearance: average body habitus and well nourished [facility] Head: normal to inspection Ears: hearing grossly normal bilaterally Nose: external nose normal Face and sinus: normal facial exam Mouth: oral mucosae normal Throat: posterior oropharynx normal Eyes General: appearance normal, both eyes and all related structures Neck Neck: normal visual inspection Chest Chest palpation & inspection: normal inspection of the chest and normal palpation of entire chest wall Resp Effort & Inspection: normal respiratory effort Auscultation: Bilateral: Clear to Auscultation Cardio Palpation: normal PMI Rate: regular rate Rhythm: regular rhythm GI Inspection: normal to inspection and other (. Normal appearing colostomy in the left lower quadrant) Auscultation: normal bowel sounds Percussion: normal to percussion Palpation: no hepatosplenomegaly Skin General: no rashes or lesions noted Neuro General: patient alert Extrem General: normal to inspection Psych Affect: normal affect Quality Reporting Tobacco Screening ([facility] 138) Smoking Status: Former smoker Assessment and Plan Assessment and Plan (1) Change in bowel habits: Status: Acute Orders: Orders: Comprehensive Metabolic Profil Today CBC W/Diff, Automated Today ENTERIC PATHOGEN PANEL STOOL Today Stool Lactoferrin/WBC Today Ova and Parasites 8623 Today Giardia Lamblia, Stool EIA Today Calprotectin, Stool Today CDIFF (PCR) Today Plan - Dr. Michel Tomlinson, DO: Differential diagnosis for her bowel habit changes that could affect the upper GI tract would be peptic ulcer disease, celiac disease, gluten enteropathy, bacterial overgrowth (secondary to multiple surgeries and a lot of antibiotics). (2) Diarrhea: Status: Acute Orders: Orders: Comprehensive Metabolic Profil Today CBC W/Diff, Automated Today ENTERIC PATHOGEN PANEL STOOL Today Stool Lactoferrin/WBC Today Ova and Parasites 8623 Today Giardia Lamblia, Stool EIA Today Calprotectin, Stool Today CDIFF (PCR) Today CRP Today Free T3 Today LDH Today T4 Total, Thyroxin Today Thyroid Stim Hormone (TSH) Today Erythrocyte Sed Rate Today Protein Electroph, S Today Free T3 1 Week T4 Total, Thyroxin 1 Week Thyroid Stim Hormone (TSH) 1 Week Plan - Dr. Michel Tomlinson, DO: Differential diagnosis for her diarrhea was in Rapid transit secondary to multiple surgeries, hyper or hypothyroidism, chronic infectious enterocolitis, thyroid disease, less likely inflammatory bowel disease. We will get a CT enterography, ESR, CRP, stool lactoferrin, Giardia, fecal calprotectin, C. difficile, thyroid studies, LDH, protein electrophoresis and we will perform an upper and lower endoscopy. Also notes of his diagnosis would include IBS with diarrhea secondary to mild depression. So we would suggest some mild Cymbalta to control her GI symptoms. I have re-examined the patient. There are no clinical changes since date of exam.
--- NOTE | 2021-12-07 14:30 | IMM_PTH ---
PATIENT: JOSE DE JESUS GOLD LOC: EN U#:[id number] AGE/SX: 76/F ROOM: RE12/07/[address]: Dr. Michel Tomlinson DO : 1945 BED: DIS: 12/07/2021 SPEC #: [id number] RECD: 12/08/21 12:11 STATUS: ELAYNE REQ #: [id number] GABRIELE: 12/07/21 14:[address]: Michel Tomlinson DEPT: IMMUNOHISTOCHEMISTRY RECD BY: Edelmira Rodrigues ENTERED: 12/08/21 12:12 SP TYPE: IMMUNO OTHR DR: Dr. Elliot Kang MD Tissues: B - Stomach, NOS Procedures: H Pylori (initial) PHYSICIAN & INSTITUTION [place] [id number] SPECIMEN INFORMATION: Tissue Source: B ? Antrum biopsy Clinical Info: Change in bowel habits, diarrhea Specimen Number: [id number] CPT code: 33739 METHODOLOGY: Deparaffinized sections of prefer/formalin-fixed tissue or PAP/DQ stained slides are incubated with monoclonal/polyclonal antibodies/oligonucleotide probes. Localization is made via biotin free immunoperoxidase method. Appropriate controls are performed and reacted as expected. Results on target cell population are indicated in the following table: RESULTS: ANTIBODY / CLONE RESULT Block B H Pylori (polyclonal) negative These tests were developed and their performance characteristics determined by [facility]. They may not have been cleared or approved by the U.S. Food and Drug Administration. The FDA has determined that such clearance or approval is not necessary. INTERPRETATION: B. Antrum biopsy: Negative for Helicobacter pylori organisms. AM:tabby 12/09/2021
[2021-12-07 14:43] LABS: Free T3 2.7 pg/mL (2.18-3.98); T4 Total, Thyroxin 13.4 ug/dL (4.8-13.9); Thyroid Stim Hormone (TSH) 0.05 uIU/mL (0.358-3.74)
--- NOTE | 2021-12-07 15:01 | OP.EGD_ITS ---
Patient Name: Gracie Johnson Procedure Date: 12/07/2021 2:41 PM Date of : 1945 Age: 76 Procedure: Upper GI endoscopy Indications: Epigastric abdominal pain Providers: Michel Tomlinson DO Medicines: General Anesthesia, See the Anesthesia note for documentation of the administered medications Patient Profile: This is a 76 year old female. Refer to note in patient chart for documentation of history and physical. Patient has symptoms. Complications: No immediate complications. Procedure: Pre-Anesthesia Assessment: - Prior to the procedure, a History and Physical was performed, and patient medications and allergies were reviewed. The risks and benefits of the procedure and the sedation options and risks were discussed with the patient. All questions were answered and informed consent was obtained. Patient identification and proposed procedure were verified by the physician in the pre-procedure area. Mental Status Examination: alert and oriented. Airway Examination: normal oropharyngeal airway and neck mobility. Respiratory Examination: clear to auscultation. CV Examination: normal. Prophylactic Antibiotics: The patient does not require prophylactic antibiotics. Prior Anticoagulants: The patient has taken no previous anticoagulant or antiplatelet agents. After reviewing the risks and benefits, the patient was deemed in satisfactory condition to undergo the procedure. The anesthesia plan was to use moderate sedation / analgesia (conscious sedation). Immediately prior to administration of medications, the patient was re-assessed for adequacy to receive sedatives. The heart rate, respiratory rate, oxygen saturations, blood pressure, adequacy of pulmonary ventilation, and response to care were monitored throughout the procedure. The physical status of the patient was re-assessed after the procedure. After obtaining informed consent, the endoscope was passed under direct vision. Throughout the procedure, the patient's blood pressure, pulse, and oxygen saturations were monitored continuously. The Endoscope was introduced through the mouth, and advanced to the second part of duodenum. The upper GI endoscopy was accomplished without difficulty. The patient tolerated the procedure well. Moderate Sedation: Moderate (conscious) sedation was administered by the endoscopy nurse and supervised by the endoscopist. The following parameters were monitored: oxygen saturation, heart rate, blood pressure, and response to care. Total physician intraservice time was 15 minutes. Scope In: 2:51:00 PM Scope Out: 2:58:02 PM Total Procedure Duration Time 0 hours 7 minutes 2 seconds Findings: LA Grade A (one or more mucosal breaks less than 5 mm, not extending between tops of 2 mucosal folds) esophagitis with no bleeding was found 34 to 35 cm from the incisors. Biopsies were taken with a cold forceps for histology. Verification of patient identification for the specimen was done. Estimated blood loss was minimal. Patchy mild inflammation characterized by congestion (edema) and erosions was found in the stomach. Biopsies were taken with a cold forceps for histology. Verification of patient identification for the specimen was done. Estimated blood loss was minimal. Scattered moderate inflammation characterized by congestion (edema), erosions and shallow ulcerations was found in the duodenal bulb, in the first portion of the duodenum and in the second portion of the duodenum. Biopsies were taken with a cold forceps for histology. Verification of patient identification for the specimen was done. Estimated blood loss was minimal. Impression: - LA Grade A reflux esophagitis. Biopsied. - Gastritis. Biopsied. - Duodenitis. Biopsied. Recommendation: - Discharge patient to home. - Resume previous diet. - Continue present medications. - Await pathology results. - Repeat upper endoscopy in 1 year for surveillance based on pathology results. - Return to GI office. Procedure Code(s): --- Professional --- 84061, Esophagogastroduodenoscopy, flexible, transoral; with biopsy, single or multiple 33688, 59, Moderate sedation services provided by the same physician or other qualified health pulmonary care nurse performing the diagnostic or therapeutic service that the sedation supports, requiring the presence of an independent trained observer to assist in the monitoring of the patient's level of consciousness and physiological status; initial 15 minutes of intraservice time, patient age 5 years or older CPT copyright 2017 [employer]. All rights reserved. The codes documented in this report are preliminary and upon morgue librarian review may be revised to meet current compliance requirements. Michel Tomlinson DO 12/07/2021 3:01:26 PM This report has been signed electronically. Number of Addenda: 1 Note Initiated On: 12/07/2021 2:41 PM Addendum Number: 1 Addendum Date: 07/25/2022 6:59:30 AM MAC was used for sedation during this procedure. Michel Tomlinson DO 07/25/2022 6:59:34 AM This report has been signed electronically.
--- NOTE | 2021-12-07 15:01 | OP.CCLET_ITS ---
07/25/2022 Elliot Kang MD [address] [place] [address] Re : Upper GI endoscopy procedure for Gracie Johnson Dear Dr. Kang This procedure was performed on Tuesday, December 07, 2021. My impressions and recommendations are as follows: Impressions : - LA Grade A reflux esophagitis. Biopsied. - Gastritis. Biopsied. - Duodenitis. Biopsied. Recommendations : - Discharge patient to home. - Resume previous diet. - Continue present medications. - Await pathology results. - Repeat upper endoscopy in 1 year for surveillance based on pathology results. - Return to GI office. My findings are described in the full procedure note, which is enclosed. If I can be of further assistance, please feel free to contact me at . Sincerely, Michel Tomlinson, 12/07/2021 3:01:26 PM This report has been signed electronically.
[2021-12-07 15:36] VITALS: BP 121/78; BP 90/57; PULSE 72; RESP 16; TEMP 36.5; O2SAT 99
--- NOTE | 2021-12-07 15:38 | OP.COLON_ITS ---
Patient Name: Gracie Johnson Procedure Date: 12/07/2021 2:59 PM Date of : 1945 Age: 76 Procedure: Colonoscopy Indications: Chronic diarrhea, Clinically significant diarrhea of unexplained origin Providers: Michel Tomlinson DO Medicines: See the Anesthesia note for documentation of the administered medications Patient Profile: This is a 76 year old female. Refer to note in patient chart for documentation of history and physical. Patient has symptoms. She is status post rectal resection and segmental resection of the sigmoid colon within the past several years. Last Colonoscopy: 5 years ago. Complications: No immediate complications. Procedure: Pre-Anesthesia Assessment: - Prior to the procedure, a History and Physical was performed, and patient medications and allergies were reviewed. The risks and benefits of the procedure and the sedation options and risks were discussed with the patient. All questions were answered and informed consent was obtained. Patient identification and proposed procedure were verified by the physician in the pre-procedure area. Mental Status Examination: alert and oriented. Airway Examination: normal oropharyngeal airway and neck mobility. Respiratory Examination: clear to auscultation. CV Examination: normal. Prophylactic Antibiotics: The patient does not require prophylactic antibiotics. Prior Anticoagulants: The patient has taken no previous anticoagulant or antiplatelet agents. After reviewing the risks and benefits, the patient was deemed in satisfactory condition to undergo the procedure. The anesthesia plan was to use moderate sedation / analgesia (conscious sedation). Immediately prior to administration of medications, the patient was re-assessed for adequacy to receive sedatives. The heart rate, respiratory rate, oxygen saturations, blood pressure, adequacy of pulmonary ventilation, and response to care were monitored throughout the procedure. The physical status of the patient was re-assessed after the procedure. After I obtained informed consent, the scope was passed under direct vision. Throughout the procedure, the patient's blood pressure, pulse, and oxygen saturations were monitored continuously. The colonoscope was introduced through the anus and advanced to the terminal ileum. The colonoscopy was performed without difficulty. The patient tolerated the procedure well. The quality of the bowel preparation was good. Moderate Sedation: Moderate (conscious) sedation was administered by the endoscopy nurse and supervised by the endoscopist. The patient's oxygen saturation, heart rate, blood pressure and response to care were monitored. Total physician intraservice time was 15 minutes. Scope In: 3:06:49 PM Scope Out: 3:30:02 PM Total Procedure Duration Time 0 hours 23 minutes 13 seconds Findings: The digital exam findings include anal stricture. An area of moderately congested mucosa was found in the entire colon. Biopsies were taken with a cold forceps for histology. Verification of patient identification for the specimen was done. Estimated blood loss was minimal. Three small localized angiodysplastic lesions with bleeding were found in the cecum. Coagulation for hemostasis using argon beam at 0.3 liters/minute and 20 leonard was successful. Estimated blood loss was minimal. There was evidence of a patent end-to-side ileo-colonic anastomosis found in the terminal ileum. This was characterized by edema and friable mucosa. This was traversed after dilation. Biopsies were taken with a cold forceps for histology. Impression: - Anal stricture found on digital exam. - Congested mucosa in the entire examined colon. Biopsied. - Three bleeding colonic angiodysplastic lesions. Treated with argon beam coagulation. - Patent end-to-side ileo-colonic anastomosis, characterized by friable mucosa and edema. Biopsied. Recommendation: - Discharge patient to home. - Resume previous diet. - Continue present medications. - Await pathology results. - Repeat colonoscopy in 5 years for surveillance based on pathology results. - Return to GI office. Procedure Code(s): --- Professional --- 07578, 59, Colonoscopy, flexible; with control of bleeding, any method 66695, Colonoscopy, flexible; with biopsy, single or multiple 68920, 59, Moderate sedation services provided by the same physician or other qualified health career coordinator performing the diagnostic or therapeutic service that the sedation supports, requiring the presence of an independent trained observer to assist in the monitoring of the patient's level of consciousness and physiological status; initial 15 minutes of intraservice time, patient age 5 years or older CPT copyright 2017 [employer]. All rights reserved. The codes documented in this report are preliminary and upon rn embedded review may be revised to meet current compliance requirements. Michel Tomlinson DO 12/07/2021 3:38:26 PM This report has been signed electronically. Number of Addenda: 1 Note Initiated On: 12/07/2021 2:59 PM Addendum Number: 1 Addendum Date: 07/25/2022 6:59:40 AM MAC was used for sedation during this procedure. Michel Tomlinson DO 07/25/2022 6:59:44 AM This report has been signed electronically.
--- NOTE | 2021-12-07 15:39 | OP.CCLET_ITS ---
07/25/2022 Elliot Kang MD [address] [place] [address] Re : Colonoscopy procedure for Gracie Saurers Dear Dr. Kang This procedure was performed on Tuesday, December 07, 2021. My impressions and recommendations are as follows: Impressions : - Anal stricture found on digital exam. - Congested mucosa in the entire examined colon. Biopsied. - Three bleeding colonic angiodysplastic lesions. Treated with argon beam coagulation. - Patent end-to-side ileo-colonic anastomosis, characterized by friable mucosa and edema. Biopsied. Recommendations : - Discharge patient to home. - Resume previous diet. - Continue present medications. - Await pathology results. - Repeat colonoscopy in 5 years for surveillance based on pathology results. - Return to GI office. My findings are described in the full procedure note, which is enclosed. If I can be of further assistance, please feel free to contact me at . Sincerely, Michel Tomlinson, 12/07/2021 3:38:26 PM This report has been signed electronically.
[2021-12-07 15:40] VITALS: BP 121/78; BP 90/65; PULSE 70; RESP 16; O2SAT 100
[2021-12-07 15:46] VITALS: BP 121/78; BP 98/61; PULSE 70; RESP 16; O2SAT 92
[2021-12-07 15:50] VITALS: BP 121/78; BP 98/71; PULSE 67; RESP 16; TEMP 36.3; O2SAT 100
[2021-12-07 16:10] VITALS: BP 121/78
[2021-12-09 15:52] LABS: Giardia Lamblia, Stool EIA Negative (Negative)
[2021-12-10 16:38] LABS: Calprotectin, Stool <16 ug/g (0-120)
== END 2021-12-07 23:59 | disposition home or self-care (01) ==
LOC: EN 13:24 → AC 13:25
PROVIDERS: PCP Family Medicine Geriatric Medicine; Referring Provider Family Medicine Geriatric Medicine; Visit Provider Internal Medicine Gastroenterology
PROC: 0DJD8ZZ Inspection of Lower Intestinal Tract, Via Natural or Artificial Opening Endoscopic (ICD-10-PCS; CPT 45378; principal; 2021-12-07 14:25)
DX: K55.21 Angiodysplasia of colon with hemorrhage (principal); K29.80 Duodenitis without bleeding; K29.70 Gastritis, unspecified, without bleeding; K21.00 Gastro-esophageal reflux disease with esophagitis, without bleeding; Z93.3 Colostomy status; J44.9 Chronic obstructive pulmonary disease, unspecified; E07.9 Disorder of thyroid, unspecified; R19.7 Diarrhea, unspecified; Z90.49 Acquired absence of other specified parts of digestive tract; Z85.118 Personal history of other malignant neoplasm of bronchus and lung; Z85.048 Personal history of other malignant neoplasm of rectum, rectosigmoid junction, and anus; Z87.891 Personal history of nicotine dependence
CPT/HCPCS: 45380; 45382; 43239; 36415; 83630; 83993; 84436; 84443; 84481; 87177; 87209; 87329; 87493; 87506; 88305; 88313; 88342; J7120; J2405

== ENCOUNTER 2021-12-13 13:40 | Outpatient (CLI) | payer MEDICARE, OTHER, SELFPAY ==
[2021-12-13 15:02] LABS: Hematocrit 41.5 % (37-47); Hemoglobin 13.4 g/dL (12.0-15.0); Mean Corp Hgb Conc 32.3 g/dL (32-36); Mean Corpuscular Hgb 28.3 pg (27.0-32.0); Mean Corpuscular Volume 87.7 fL (81-99); Mean Platelet Vol. 9.4 fl (6.2-12.0); Platelet Count 284 K/mm3 (150-450); RBC Distribution Width CV 14.1 % (11.6-14.6); RBC Distribution Width SD 44.8 fl (35.1-43.9); Red Blood Count 4.73 M/mm3 (4.2-5.4); White Blood Count 8.8 K/mm3 (4.4-11.0)
[2021-12-13 15:21] LABS: Anion Gap 7 (5-15); BUN 19 mg/dL (7-18); BUN/Creat Ratio 16.5 RATIO (10-20); Chloride 114 mmol/L (98-107); Creatinine, Serum 1.15 mg/dL (0.55-1.02); EST Glomerular Filtration Rate 49 mL/min (>60); Est Glom Filt Rate - Afr Amer 59 mL/min (>60); Glucose 100 mg/dL (74-106); Potassium 3.7 mmol/L (3.5-5.1); Sodium Level 140 mmol/L (136-145)
== END 2021-12-13 23:59 | disposition home or self-care (01) ==
LOC: MTLAB 13:42
PROVIDERS: PCP Family Medicine Geriatric Medicine; Referring Provider Urology; Visit Provider Urology
DX: R31.9 Hematuria, unspecified (principal)
CPT/HCPCS: 36415; 80048; 85027

== ENCOUNTER 2021-12-17 15:56 | Outpatient (CLI) | payer MEDICARE, OTHER, SELFPAY ==
--- NOTE | 2021-12-17 15:59 | US_ITS ---
STUDY: RENAL ULTRASOUND - COMPLETE REASON FOR EXAM: Female, 76 years old. HEMATURIA L URETRAL STONE TECHNIQUE: Ultrasound evaluation of the kidneys was performed with real-time and static munoz-scale imaging. COMPARISON: 07/14/2021 FINDINGS: RIGHT KIDNEY: Normal location of the right kidney, which is normal in size. The right kidney measures 8.9 cm. There is a normal cortex of the right kidney. The renal cortex measures 0.9 cm. 8 mm cyst in the midsection of the right kidney. There are no right renal calculi. There is no right hydronephrosis. DISTAL RIGHT URETER: There is non-visualization of the distal right ureter. There is no demonstrated right ureterovesical junction calculus. There is a visualized right ureteral jet. LEFT KIDNEY: Normal location of the left kidney, which is normal in size. The left kidney measures 8.3 cm. There is a normal cortex of the left kidney. The renal cortex measures 0.9 cm. 8 mm cyst in the upper pole the left kidney. Another 8 mm cyst in the midsection left kidney. There are no left renal calculi. There is no left hydronephrosis. DISTAL LEFT URETER: There is non-visualization of the distal left ureter. There is no demonstrated left ureterovesical junction calculus. There is a visualized left ureteral jet. BLADDER: The distended urinary bladder has a volume of 22 ml. The empty urinary bladder has a volume of ml. There is a normal wall thickness of the distended urinary bladder. There is no demonstrated mass within the urinary bladder. There are no demonstrated bladder calculi. US/Kidney and Bladder IMPRESSION: No hydronephrosis to suggest obstruction. Electronically Signed: Trav Paulson MD at 10:36 EST ,
== END 2021-12-17 23:59 | disposition home or self-care (01) ==
LOC: US 15:57
PROVIDERS: PCP Family Medicine Geriatric Medicine; Referring Provider Urology; Visit Provider Urology
DX: R31.9 Hematuria, unspecified (principal); N20.1 Calculus of ureter
CPT/HCPCS: 76770

== ENCOUNTER 2021-12-27 10:48 | Outpatient (CLI) | payer MEDICARE, OTHER, SELFPAY | END 2021-12-27 23:59 | disposition home or self-care (01) | PROVIDERS: PCP Family Medicine Geriatric Medicine; Visit Provider Internal Medicine Gastroenterology | DX: R19.7 Diarrhea, unspecified (principal) | CPT/HCPCS: 36415 ==

== ENCOUNTER 2022-01-24 13:42 | Outpatient (CLI) | payer MEDICARE, OTHER, SELFPAY ==
--- NOTE | 2022-01-24 13:44 | CT_ITS ---
STUDY: CT CHEST T ABDOMEN WITH CONTRAST REASON FOR EXAM: Female, 76 years old. MONITOR LUNG AND RECTAL CANCER RADIATION DOSAGE (If Supplied By Facility): CTDIvol = ( 11.47 ) mGy, DLP = ( 375.12 ) mGycm TECHNIQUE: Transaxial imaging was performed following intravenous administration of IV 100mL Isovue-300. Individualized dose optimization techniques were used for this CT. COMPARISON: Comparison is made with prior study dated 04/08/2020. FINDINGS: CHEST Diffuse emphysematous changes. There is a 1.5 cm bulla in the anterior aspect of the right lower lobe abutting the major fissure. There is no demonstrated pleural abnormality. There are calcifications of the coronary arteries. Normal mediastinum. Normal hilar regions. Normal unenhanced pulmonary arteries. There is atherosclerotic calcification of the aortic arch with tortuosity and elongation of the aortic arch and descending thoracic aorta. There are mild degenerative changes of the thoracic spine. ABDOMEN Normal liver. The patient is status post cholecystectomy. Normal spleen. Normal pancreas. Normal bilateral adrenal glands. Stable cysts in both kidneys. Tiny nonobstructive calculi in the upper pole calyx of the right kidney. Incidental note is made of a left retroaortic renal vein. Normal visualized stomach. Normal small intestine. A colostomy seen in the left lower quadrant. The appendix is visualized and appears normal. There is diffuse atherosclerotic calcification of the abdominal aorta, without a demonstrated aneurysm. Normal inferior vena cava. Normal retroperitoneum. Normal abdominal wall. There are diffuse degenerative changes of the visualized lumbar spine. CT/CT Chest AND Abd W/ Contrast IMPRESSION: Stable examination. No acute abnormality is seen. Electronically Signed: Chriss Boateng MD at 15:30 EDT ,
[2022-01-24 14:01] LABS: CREATININE FINGERSTICK 1.1 mg/dL (0.55-1.02)
== END 2022-01-24 23:59 | disposition home or self-care (01) ==
LOC: CT 13:43
PROVIDERS: PCP Family Medicine Geriatric Medicine; Referring Provider Internal Medicine Medical Oncology; Visit Provider Internal Medicine Medical Oncology
DX: C34.31 Malignant neoplasm of lower lobe, right bronchus or lung (principal); C20 Malignant neoplasm of rectum; Z90.49 Acquired absence of other specified parts of digestive tract
CPT/HCPCS: 71260; 74160; Q9967

== ENCOUNTER 2022-01-27 15:36 | Outpatient (CLI) | payer MEDICARE, OTHER, SELFPAY ==
[2022-01-27 16:26] LABS: Absolute Lymphocyte Count 1.67 X10^3/uL (0.83-4.51); Absolute Neutrophil Count 7.2 X10^3/uL (2.0-7.7); Basophil# 0.02 X10^3/uL; Basophil% 0.2 % (0-1); Eosinophil# 0.02 X10^3/uL; Eosinophils% 0.2 % (0-5); Hematocrit 42.5 % (37-47); Hemoglobin 13.5 g/dL (12.0-15.0); Lymphocyte # 1.67 X10^3/ul (0.83-4.51); Lymphocyte % 18.2 % (19-41); Mean Corp Hgb Conc 31.8 g/dL (32-36); Mean Corpuscular Hgb 28.8 pg (27.0-32.0); Mean Corpuscular Volume 90.6 fL (81-99); Monocyte# 0.21 X10^3/uL; Monocyte% 2.3 % (0-10); NRBC Flagged by Analyzer 0 % (0-5); Neutrophil # 7.18 X10^3/uL (2.7-7.7); Neutrophil % 78.3 % (47-70); Platelet Count 265 K/mm3 (150-450); RBC Distribution Width CV 14.5 % (11.6-14.6); Red Blood Count 4.69 M/mm3 (4.2-5.4); White Blood Count 9.2 K/mm3 (4.4-11.0)
[2022-01-27 16:42] LABS: ALB/GLOB Ratio 0.8 RATIO (0.9-2.4); AST(SGOT) 27 U/L (15-37); Alanine Aminotransfer ALT/SGPT 44 U/L (13-56); Albumin, Serum 3.3 g/dL (3.2-5.0); Alkaline Phosphatase 61 U/L (45-117); Amylase 109 U/L (25-115); Anion Gap 7 (5-15); BUN 19 mg/dL (7-18); BUN/Creat Ratio 16.8 RATIO (10-20); Calcium,Total 9.1 mg/dL (8.5-10.1); Chloride 111 mmol/L (98-107); Creatinine, Serum 1.13 mg/dL (0.55-1.02); EST Glomerular Filtration Rate 50 mL/min (>60); Est Glom Filt Rate - Afr Amer 60 mL/min (>60); Globulin 4.4 g/dL (2.2-4.2); Glucose 117 mg/dL (74-106); Lipase 229 U/L (73-393); Potassium 4.3 mmol/L (3.5-5.1); Protein, Total 7.7 g/dL (6.4-8.2); Sodium Level 138 mmol/L (136-145)
== END 2022-01-27 23:59 | disposition home or self-care (01) ==
LOC: LAB 15:38
PROVIDERS: PCP Family Medicine Geriatric Medicine; Visit Provider Nurse Practitioner Adult Health
DX: K50.90 Crohn's disease, unspecified, without complications (principal); Z85.048 Personal history of other malignant neoplasm of rectum, rectosigmoid junction, and anus
CPT/HCPCS: 36415; 80053; 82150; 83690; 85025

== ENCOUNTER 2022-02-03 14:55 | Outpatient (CLI) | payer MEDICARE, OTHER, SELFPAY ==
[2022-02-03 15:12] LABS: Absolute Neutrophil Count 9.8 X10^3/uL (2.0-7.7); Basophil# 0.01 X10^3/uL; Basophil% 0.1 % (0-1); Hematocrit 40.5 % (37-47); Hemoglobin 12.7 g/dL (12.0-15.0); Lymphocyte % 12.2 % (19-41); Mean Corp Hgb Conc 31.4 g/dL (32-36); Mean Corpuscular Hgb 28.8 pg (27.0-32.0); Mean Corpuscular Volume 91.8 fL (81-99); Mean Platelet Vol. 8.7 fl (6.2-12.0); Monocyte# 0.19 X10^3/uL; Monocyte% 1.7 % (0-10); NRBC Flagged by Analyzer 0 % (0-5); Neutrophil # 9.75 X10^3/uL (2.7-7.7); Neutrophil % 85.1 % (47-70); Platelet Count 214 K/mm3 (150-450); RBC Distribution Width CV 14.5 % (11.6-14.6); RBC Distribution Width SD 48.9 fl (35.1-43.9); Red Blood Count 4.41 M/mm3 (4.2-5.4); White Blood Count 11.5 K/mm3 (4.4-11.0)
== END 2022-02-03 23:59 | disposition home or self-care (01) ==
LOC: LAB 14:56
PROVIDERS: PCP Family Medicine Geriatric Medicine; Visit Provider Nurse Practitioner Adult Health
DX: K50.90 Crohn's disease, unspecified, without complications (principal); Z79.899 Other long term (current) drug therapy
CPT/HCPCS: 36415; 85025

== ENCOUNTER 2022-02-14 10:19 | Outpatient (CLI) | payer MEDICARE, OTHER, SELFPAY ==
[2022-02-14 11:20] LABS: Absolute Lymphocyte Count 1.42 X10^3/uL (0.83-4.51); Absolute Neutrophil Count 11.4 X10^3/uL (2.0-7.7); Basophil# 0.02 X10^3/uL; Basophil% 0.1 % (0-1); Eosinophil# 0.12 X10^3/uL; Eosinophils% 0.9 % (0-5); Hematocrit 42.9 % (37-47); Lymphocyte # 1.42 X10^3/ul (0.83-4.51); Lymphocyte % 10.5 % (19-41); Mean Corp Hgb Conc 32.6 g/dL (32-36); Mean Corpuscular Hgb 29.4 pg (27.0-32.0); Mean Corpuscular Volume 90.1 fL (81-99); Mean Platelet Vol. 8.7 fl (6.2-12.0); Monocyte# 0.47 X10^3/uL; Monocyte% 3.5 % (0-10); NRBC Flagged by Analyzer 0 % (0-5); Neutrophil # 11.36 X10^3/uL (2.7-7.7); Platelet Count 178 K/mm3 (150-450); RBC Distribution Width CV 15.3 % (11.6-14.6); RBC Distribution Width SD 50.4 fl (35.1-43.9); Red Blood Count 4.76 M/mm3 (4.2-5.4); White Blood Count 13.5 K/mm3 (4.4-11.0)
[2022-02-14 11:50] LABS: ALB/GLOB Ratio 0.9 RATIO (0.9-2.4); AST(SGOT) 19 U/L (15-37); Alanine Aminotransfer ALT/SGPT 26 U/L (13-56); Albumin, Serum 3.3 g/dL (3.2-5.0); Alkaline Phosphatase 49 U/L (45-117); Anion Gap 7 (5-15); BUN 23 mg/dL (7-18); BUN/Creat Ratio 21.3 RATIO (10-20); Calcium,Total 8.7 mg/dL (8.5-10.1); Chloride 109 mmol/L (98-107); Creatinine, Serum 1.08 mg/dL (0.55-1.02); EST Glomerular Filtration Rate 52 mL/min (>60); Est Glom Filt Rate - Afr Amer 63 mL/min (>60); Globulin 3.7 g/dL (2.2-4.2); Glucose 97 mg/dL (74-106); Potassium 4.3 mmol/L (3.5-5.1); Sodium Level 138 mmol/L (136-145)
[2022-02-15 15:24] LABS: Erythrocyte Sedimentation Rate 6 mm/hr (0-30)
[2022-02-15 16:03] LABS: CRP < 2.90 mg/L (0.0-3.0); LDH 171 U/L (84-246)
== END 2022-02-14 23:59 | disposition home or self-care (01) ==
LOC: LAB 10:21
PROVIDERS: Nurse Practitioner Adult Health; PCP Family Medicine Geriatric Medicine; Referring Provider Internal Medicine Gastroenterology; Visit Provider Internal Medicine Gastroenterology
DX: K50.90 Crohn's disease, unspecified, without complications (principal)
CPT/HCPCS: 36415; 80053; 83615; 85025; 85652; 86140

== ENCOUNTER → 2022-02-24 | Outpatient (CLI) | payer MEDICARE, OTHER, SELFPAY ==
[2022-02-24 15:20] LABS: Absolute Lymphocyte Count 1.21 X10^3/uL (0.83-4.51); Absolute Neutrophil Count 8.3 X10^3/uL (2.0-7.7); Basophil# 0.02 X10^3/uL; Basophil% 0.2 % (0-1); Hematocrit 39.4 % (37-47); Hemoglobin 12.7 g/dL (12.0-15.0); Lymphocyte # 1.21 X10^3/ul (0.83-4.51); Lymphocyte % 12.2 % (19-41); Mean Corp Hgb Conc 32.2 g/dL (32-36); Mean Corpuscular Hgb 29.3 pg (27.0-32.0); Mean Corpuscular Volume 90.8 fL (81-99); Mean Platelet Vol. 8.5 fl (6.2-12.0); Monocyte# 0.21 X10^3/uL; Monocyte% 2.1 % (0-10); NRBC Flagged by Analyzer 0 % (0-5); Neutrophil % 83.9 % (47-70); Platelet Count 240 K/mm3 (150-450); RBC Distribution Width CV 15.1 % (11.6-14.6); RBC Distribution Width SD 49.5 fl (35.1-43.9); Red Blood Count 4.34 M/mm3 (4.2-5.4); White Blood Count 9.9 K/mm3 (4.4-11.0)
[2022-02-24 15:57] LABS: ALB/GLOB Ratio 0.9 RATIO (0.9-2.4); AST(SGOT) 18 U/L (15-37); Alanine Aminotransfer ALT/SGPT 27 U/L (13-56); Albumin, Serum 3.1 g/dL (3.2-5.0); Alkaline Phosphatase 46 U/L (45-117); Anion Gap 8 (5-15); BUN 19 mg/dL (7-18); Calcium,Total 8.3 mg/dL (8.5-10.1); Chloride 106 mmol/L (98-107); Creatinine, Serum 1.19 mg/dL (0.55-1.02); EST Glomerular Filtration Rate 47 mL/min (>60); Est Glom Filt Rate - Afr Amer 57 mL/min (>60); Globulin 3.4 g/dL (2.2-4.2); Glucose 112 mg/dL (74-106); Protein, Total 6.5 g/dL (6.4-8.2); Sodium Level 137 mmol/L (136-145)
== END | disposition home or self-care (01) ==
LOC: LAB 14:41
PROVIDERS: PCP Family Medicine Geriatric Medicine; Referring Provider Nurse Practitioner Adult Health; Visit Provider Nurse Practitioner Adult Health
DX: K50.90 Crohn's disease, unspecified, without complications (principal)
CPT/HCPCS: 36415; 80053; 85025

== ENCOUNTER → 2022-03-08 | Outpatient (CLI) | payer MEDICARE, OTHER, SELFPAY ==
[2022-03-08 16:08] LABS: International Normalized Ratio 0.9
[2022-03-08 16:19] LABS: Absolute Lymphocyte Count 2.11 X10^3/uL (0.83-4.51); Absolute Neutrophil Count 7.6 X10^3/uL (2.0-7.7); Basophil# 0.03 X10^3/uL; Basophil% 0.3 % (0-1); Eosinophil# 0.04 X10^3/uL; Eosinophils% 0.4 % (0-5); Hematocrit 42.3 % (37-47); Hemoglobin 13.4 g/dL (12.0-15.0); Lymphocyte # 2.11 X10^3/ul (0.83-4.51); Lymphocyte % 20.1 % (19-41); Mean Corp Hgb Conc 31.7 g/dL (32-36); Mean Corpuscular Hgb 29.9 pg (27.0-32.0); Mean Corpuscular Volume 94.4 fL (81-99); Mean Platelet Vol. 8.6 fl (6.2-12.0); Monocyte# 0.57 X10^3/uL; Monocyte% 5.4 % (0-10); NRBC Flagged by Analyzer 0 % (0-5); Neutrophil # 7.55 X10^3/uL (2.7-7.7); Neutrophil % 71.7 % (47-70); Platelet Count 221 K/mm3 (150-450); RBC Distribution Width CV 16.1 % (11.6-14.6); RBC Distribution Width SD 54.9 fl (35.1-43.9); Red Blood Count 4.48 M/mm3 (4.2-5.4); White Blood Count 10.5 K/mm3 (4.4-11.0)
[2022-03-08 16:24] LABS: Erythrocyte Sedimentation Rate 13 mm/hr (0-30)
[2022-03-08 17:06] LABS: ALB/GLOB Ratio 0.9 RATIO (0.9-2.4); AST(SGOT) 24 U/L (15-37); Alanine Aminotransfer ALT/SGPT 29 U/L (13-56); Albumin, Serum 3.2 g/dL (3.2-5.0); Alkaline Phosphatase 48 U/L (45-117); Anion Gap 9 (5-15); BUN 20 mg/dL (7-18); Bilirubin, Direct 0.13 mg/dL (0.00-0.30); CRP < 2.90 mg/L (0.0-3.0); Calcium,Total 8.8 mg/dL (8.5-10.1); Chloride 106 mmol/L (98-107); Creatinine, Serum 1.25 mg/dL (0.55-1.02); EST Glomerular Filtration Rate 44 mL/min (>60); Est Glom Filt Rate - Afr Amer 54 mL/min (>60); Globulin 3.6 g/dL (2.2-4.2); Glucose 93 mg/dL (74-106); Phosphorus 2.9 mg/dL (2.5-4.9); Potassium 3.9 mmol/L (3.5-5.1); Protein, Total 6.8 g/dL (6.4-8.2); Sodium Level 137 mmol/L (136-145)
== END | disposition home or self-care (01) ==
LOC: LAB 15:25
PROVIDERS: Nurse Practitioner Adult Health; PCP Family Medicine Geriatric Medicine; Visit Provider Internal Medicine Nephrology
DX: N17.9 Acute kidney failure, unspecified (principal)
CPT/HCPCS: 80053; 82248; 84100; 85025; 85610; 85652; 86140

== ENCOUNTER → 2022-03-15 | Outpatient (CLI) | payer MEDICARE, OTHER, SELFPAY ==
[2022-03-15 12:04] LABS: Absolute Neutrophil Count 9.1 X10^3/uL (2.0-7.7); Basophil# 0.03 X10^3/uL; Basophil% 0.3 % (0-1); Eosinophil# 0.05 X10^3/uL; Eosinophils% 0.5 % (0-5); Hemoglobin 13.2 g/dL (12.0-15.0); Lymphocyte % 12.6 % (19-41); Mean Corp Hgb Conc 31.4 g/dL (32-36); Mean Corpuscular Hgb 30.1 pg (27.0-32.0); Mean Corpuscular Volume 95.7 fL (81-99); Mean Platelet Vol. 8.8 fl (6.2-12.0); Monocyte% 3.6 % (0-10); NRBC Flagged by Analyzer 0 % (0-5); Neutrophil # 9.07 X10^3/uL (2.7-7.7); Neutrophil % 81.6 % (47-70); Platelet Count 218 K/mm3 (150-450); RBC Distribution Width CV 16.5 % (11.6-14.6); RBC Distribution Width SD 57.6 fl (35.1-43.9); Red Blood Count 4.39 M/mm3 (4.2-5.4); White Blood Count 11.1 K/mm3 (4.4-11.0)
[2022-03-15 12:35] LABS: ALB/GLOB Ratio 0.9 RATIO (0.9-2.4); AST(SGOT) 17 U/L (15-37); Alanine Aminotransfer ALT/SGPT 23 U/L (13-56); Albumin, Serum 3.2 g/dL (3.2-5.0); Alkaline Phosphatase 53 U/L (45-117); Anion Gap 9 (5-15); BUN 23 mg/dL (7-18); BUN/Creat Ratio 18.4 RATIO (10-20); Chloride 111 mmol/L (98-107); Creatinine, Serum 1.25 mg/dL (0.55-1.02); EST Glomerular Filtration Rate 44 mL/min (>60); Est Glom Filt Rate - Afr Amer 54 mL/min (>60); Globulin 3.4 g/dL (2.2-4.2); Glucose 100 mg/dL (74-106); Protein, Total 6.6 g/dL (6.4-8.2); Sodium Level 139 mmol/L (136-145)
== END | disposition home or self-care (01) ==
LOC: LAB 11:00
PROVIDERS: PCP Family Medicine Geriatric Medicine; Referring Provider Internal Medicine Gastroenterology; Visit Provider Internal Medicine Gastroenterology
DX: K50.90 Crohn's disease, unspecified, without complications (principal)
CPT/HCPCS: 36415; 80053; 85025

== ENCOUNTER → 2022-05-02 | Outpatient (CLI) | payer MEDICARE, OTHER, SELFPAY ==
[2022-05-02 12:44] LABS: Absolute Lymphocyte Count 2.61 X10^3/uL (0.83-4.51); Absolute Neutrophil Count 4.4 X10^3/uL (2.0-7.7); Basophil# 0.02 X10^3/uL; Basophil% 0.3 % (0-1); Eosinophil# 0.31 X10^3/uL; Eosinophils% 3.9 % (0-5); Hematocrit 38.6 % (37-47); Lymphocyte # 2.61 X10^3/ul (0.83-4.51); Lymphocyte % 32.8 % (19-41); Mean Corp Hgb Conc 33.7 g/dL (32-36); Mean Corpuscular Hgb 32.2 pg (27.0-32.0); Mean Corpuscular Volume 95.5 fL (81-99); Mean Platelet Vol. 8.9 fl (6.2-12.0); Monocyte# 0.57 X10^3/uL; Monocyte% 7.2 % (0-10); NRBC Flagged by Analyzer 0 % (0-5); Neutrophil # 4.42 X10^3/uL (2.7-7.7); Neutrophil % 55.5 % (47-70); Platelet Count 218 K/mm3 (150-450); RBC Distribution Width CV 15.2 % (11.6-14.6); RBC Distribution Width SD 53.4 fl (35.1-43.9); Red Blood Count 4.04 M/mm3 (4.2-5.4)
[2022-05-02 13:29] LABS: Vitamin D,25 Hydroxy 34.2 ng/mL
[2022-05-02 13:32] LABS: AST(SGOT) 22 U/L (15-37); Alanine Aminotransfer ALT/SGPT 19 U/L (13-56); Albumin, Serum 3.4 g/dL (3.2-5.0); Alkaline Phosphatase 71 U/L (45-117); Anion Gap 11 (5-15); BUN 16 mg/dL (7-18); BUN/Creat Ratio 14.5 RATIO (10-20); Calcium,Total 9.2 mg/dL (8.5-10.1); Chloride 110 mmol/L (98-107); EST Glomerular Filtration Rate 51 mL/min (>60); Est Glom Filt Rate - Afr Amer 62 mL/min (>60); Globulin 3.5 g/dL (2.2-4.2); Glucose 82 mg/dL (74-106); Protein, Total 6.9 g/dL (6.4-8.2); Sodium Level 140 mmol/L (136-145); Thyroid Stim Hormone (TSH) 0.05 uIU/mL (0.358-3.74)
== END | disposition home or self-care (01) ==
LOC: LAB 11:57
PROVIDERS: PCP Family Medicine Geriatric Medicine; Referring Provider Family Medicine Geriatric Medicine; Visit Provider Family Medicine Geriatric Medicine
DX: E55.9 Vitamin D deficiency, unspecified (principal); R53.83 Other fatigue
CPT/HCPCS: 36415; 80053; 82306; 84443; 85025

== ENCOUNTER → 2022-05-16 | Outpatient (CLI) | payer MEDICARE, OTHER, SELFPAY ==
--- NOTE | 2022-05-17 09:19 | PFT ---
INTRODUCTION: The patient is a 76-year-old female that presents for pulmonary function studies secondary to a diagnosis of COPD. Respiratory therapy reported good patient effort. Bronchodilators were used during testing. INTERPRETATION: Forced expiration spirometry demonstrates the presence of a moderate large airways obstructive ventilatory defect. There was no significant response to aerosolized bronchodilators. Spirograms are of good quality but do not plateau indicating slow emptying of the lungs. Body plethysmography was performed and revealed an elevated RV to 130% of predicted, indicative of underlying air trapping. Diffusing capacity by single breath CO is reduced at 42% of predicted. IMPRESSION: Irreversible moderate large airways obstructive ventilatory defect with associated air trapping and symmetric reduction in diffusing capacity.
== END | disposition home or self-care (01) ==
LOC: PSN 12:40
PROVIDERS: PCP Family Medicine Geriatric Medicine; Referring Provider Nurse Practitioner Acute Care; Visit Provider Nurse Practitioner Acute Care
DX: J44.9 Chronic obstructive pulmonary disease, unspecified (principal)
CPT/HCPCS: 94060; 94726; 94729

== ENCOUNTER → 2022-05-17 | Outpatient (CLI) | payer MEDICARE, OTHER, SELFPAY ==
[2022-05-17 13:26] VITALS: PULSE 100; PULSE 101; PULSE 102; PULSE 85; PULSE 86; PULSE 92; O2SAT 91; O2SAT 92; O2SAT 93; O2SAT 94; O2SAT 96
--- NOTE | 2022-05-18 07:37 | PCM.PSN.6M ---
PSN 6 Minute Walk Test 6 Minute Walk Test 6 Minute Walk Test: 6 Minute Walk Test PSN:6-Minute Walk Test Start: 05/17/22 13:26 Freq: Status: Active Protocol: RESP.6MINW Document 05/17/22 13:26 [facility] (Rec: 05/17/22 13:30 [facility] [id number]) 6 Minute Walk Test Date Performed 05/17/22 Time Performed 13:00 Height 5 ft 1 in Weight: 120 lb Weight in Pounds 120.[address]: Theresa Hernandez [employer] Assistive device used: Walker Pre-test Oxygen Delivery Method Room Air Pulse Ox (%) 96 Pulse Rate (60-100 beats/min) 85 Dyspnea Annie Scale (0-10) 4 Reported Symptoms Increased Work of Breathing 1st minute Oxygen Delivery Method Room Air Pulse Ox (%) 94 Pulse Rate (60-100 beats/min) 92 Dyspnea Annie Scale (0-10) 5 Number of Rests Taken 0 Reported Symptoms Increased Work of Breathing 2nd minute Oxygen Delivery Method Room Air Pulse Ox (%) 92 Pulse Rate (60-100 beats/min) 100 Dyspnea Annie Scale (0-10) 5 Number of Rests Taken 0 Reported Symptoms Increased Work of Breathing 3rd minute Oxygen Delivery Method Room Air Pulse Ox (%) 91 Pulse Rate (60-100 beats/min) 101 H Dyspnea Annie Scale (0-10) 5 Number of Rests Taken 0 Reported Symptoms Increased Work of Breathing 4th minute Oxygen Delivery Method Room Air Pulse Ox (%) 93 Pulse Rate (60-100 beats/min) 102 H Dyspnea Annie Scale (0-10) 5 Number of Rests Taken 0 Reported Symptoms Increased Work of Breathing 5th minute Oxygen Delivery Method Room Air Pulse Ox (%) 93 Pulse Rate (60-100 beats/min) 101 H Dyspnea Annie Scale (0-10) 5 Number of Rests Taken 0 Reported Symptoms Increased Work of Breathing 6th minute Oxygen Delivery Method Room Air Pulse Ox (%) 93 Pulse Rate (60-100 beats/min) 100 Dyspnea Annie Scale (0-10) 6 Number of Rests Taken 0 Reported Symptoms Increased Work of Breathing Post-test Oxygen Delivery Method Room Air Pulse Ox (%) 96 Pulse Rate (60-100 beats/min) 86 Dyspnea Annie Scale (0-10) 5 Reported Symptoms Increased Work of Breathing Full Laps Walked 11 Partial Lap, Number of Tiles Walked 27 Total Distance Walked (ft) 676 Interpretation Interpretation: The patient ambulated 676 feet over the course of 6 minutes beginning on room air with the use of a walker. Pretesting oxygen saturation was noted to be 96% on room air. With ambulation, the kit oxygen saturation was 91%. This represents a significant exertional oxygen desaturation. Recommendations Recommendations: There is no indication for the use of supplemental oxygen at this time. However, close interval follow-up is recommended, given the degree of oxygen desaturation noted during this study.
== END | disposition home or self-care (01) ==
LOC: PSN 13:04
PROVIDERS: PCP Family Medicine Geriatric Medicine; Referring Provider Nurse Practitioner Acute Care; Visit Provider Nurse Practitioner Acute Care
DX: J44.9 Chronic obstructive pulmonary disease, unspecified (principal)
CPT/HCPCS: 94618

== ENCOUNTER → 2022-06-24 | Outpatient (CLI) | payer MEDICARE, OTHER, SELFPAY ==
[2022-06-24 16:06] LABS: Thyroid Stim Hormone (TSH) 0.04 uIU/mL (0.358-3.74)
== END | disposition home or self-care (01) ==
LOC: LAB 14:37
PROVIDERS: PCP Family Medicine Geriatric Medicine; Visit Provider Family Medicine Geriatric Medicine
DX: E03.9 Hypothyroidism, unspecified (principal)
CPT/HCPCS: 36415; 84443

== ENCOUNTER 2022-07-22 11:51 | Outpatient (CLI) | payer MEDICARE, OTHER, SELFPAY ==
[2022-07-22 13:10] LABS: Rubella IgG Reactive (Nonreactive)
[2022-07-27 11:08] LABS: HEPATITIS B SURFACE AG Negative (Negative); Hep C Antibodies <0.1 s/co ratio (0.0-0.9); Hepatitis A IgM Antibody Negative (Negative); Hepatitis B Core AB IgM Negative (Negative); QNTFERON TB Mitogen Value > 10.00 IU/mL (.); QNTFERON TB Nil Value 0.02 IU/mL (.); QNTFERON TB1+ Ag Value 0.03 IU/mL (.); QNTFERON TB2+ Ag Value 0.03 IU/mL (.)
[2022-07-27 13:03] LABS: B. pertussis IgG 3.15 index (0.00-0.94); Mumps Antibody, IgM < 0.80 AU (0.00-0.79); QNTIFERON TB Positive Criteria Negative (Negative); V-Zoster IgG (Immunity) 1400 index (Immune >165)
== END 2022-07-22 23:59 | disposition home or self-care (01) ==
LOC: LAB 11:53
PROVIDERS: PCP Family Medicine Geriatric Medicine; Referring Provider Internal Medicine Gastroenterology; Visit Provider Internal Medicine Gastroenterology
DX: K50.90 Crohn's disease, unspecified, without complications (principal)
CPT/HCPCS: 36415; 80074; 86480; 86735; 86762; 86787

== ENCOUNTER 2022-08-08 17:22 | Emergency (ER) | payer MEDICARE, OTHER, SELFPAY ==
[2022-08-08 17:23] VITALS: BP 150/80; PULSE 97; RESP 18; TEMP 36.4; O2SAT 98; BMI 22.1
--- NOTE | 2022-08-08 18:43 | EDS_ITS ---
HPI HPI - Female History of Present Illness Chief Complaint: Flank Pain Narrative Narrative: 77-year-old female presenting with left-sided flank pain. She was started to have pain last evening. She saw Dr. Kang and had urinalysis done in the office which he was concerned for infection. Because of her history of kidney stones he ordered a CT scan and blood work. Her blood work came back normal and her CT showed a left-sided UVJ stone 5 mm. There was hydronephrosis and hydroureter as well. 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 She states she did not make it to the pharmacy because he was having pain. She does not know if Dr. Kang prescribe her anything for pain. She is known to urology and tried to call Dr. Morrison and there was nobody in office to prescribe her anything for pain. She presented to the ER with left flank pain. She is tried Tylenol. She states she cannot take NSAIDs due to kidney damage. [facility] Medical History Abdominal bloating Anxiety Anxiety Arthritis Cancer Chronic bronchitis COPD (chronic obstructive pulmonary disease) COPD (chronic obstructive pulmonary disease) COPD exacerbation Crohn's disease Decreased appetite Depression Diarrhea Diarrhea Easy bruising Filling defect on imaging study Former smoker History of echocardiogram History of fracture of patella History of pain when walking History of rectal cancer History of stress test Hydronephrosis Hydronephrosis, right Hypothyroidism care home current use of immunosuppressive drug Lung cancer Nicotine abuse Osteoporosis Rectal cancer Rectal cancer 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 calculus Shortness of breath on exertion Stage 3b chronic kidney disease (CKD) Thyroid disease TIA (transient ischemic attack) TIA (transient ischemic attack) Urinary retention Walker as ambulation aid Wears dentures Wears hearing aid Home Medications bupropion HCl 150 mg 24 hr tablet, extended release 150 mg PO QAM quit smoking 11/28/18 [History Last Taken 12/07/21 07:30] citalopram 40 mg tablet 40 mg PO DAILY Anxiety 04/24/19 [History Last Taken 12/07/21 07:30] cyanocobalamin (vitamin B-12) 1,000 mcg/mL injection solution 100 mcg IM Q30D 10/08/19 [History Last Taken 11/18/21] levothyroxine 100 mcg tablet 100 mcg PO DAILY@0600 07/29/21 [History Last Taken 12/07/21 07:30] cholecalciferol (vitamin D3) 25 mcg (1,000 unit) capsule (Vitamin D3) 25 mcg PO DAILY 10/09/21 [History Last Taken 11/18/21] sodium bicarbonate 650 mg tablet 650 mg PO TID 10/09/21 [History Last Taken 11/18/21] oxycodone-acetaminophen 5 mg-325 mg tablet (Percocet) 1 tab PO Q8H PRN pain 5 days #20 tabs 11/19/21 [Rx Last Taken Unknown] phenazopyridine 100 mg tablet 100 mg PO TID #30 TABLETS 11/19/21 [Rx Last Taken Unknown] albuterol sulfate 90 mcg/actuation aerosol inhaler (Ventolin HFA) 2 puff inhalation Q4H PRN shortness of breath or wheezing #18 grams 03/31/22 [Rx Last Taken Unknown] azathioprine 50 mg tablet 150 mg PO DAILY 03/31/22 [History Last Taken Unknown] fluticasone propionate 230 mcg-salmeterol 21 mcg/actuation HFA inhaler 2 puff inhalation BID #12 grams 04/01/22 [Rx Last Taken Unknown] cefpodoxime 200 mg tablet 200 mg PO BID #20 tabs 08/08/22 [Rx Last Taken Unknown] ondansetron 4 mg disintegrating tablet 4 mg PO Q8H PRN nausea and vomiting #12 tabs 08/08/22 [Rx Last Taken Unknown] oxycodone 5 mg tablet 5 mg PO Q6H PRN pain 3 days #12 tabs 08/08/22 [Rx Last Taken Unknown] Allergy/AdvReac Type Severity Reaction Status Date / Time ciprofloxacin [From Cipro] Allergy Rash Verified 08/08/22 17:25 ciprofloxacin HCl Allergy Rash Verified 08/08/22 17:25 [From Cipro] Penicillins Allergy Hives Verified 08/08/22 17:25 codeine AdvReac makes her Verified 08/08/22 17:25 feel weird magnesium citrate AdvReac Nausea Verified 08/08/22 17:25 NSAIDS (Non-Steroidal AdvReac kidney Verified 08/08/22 17:25 Anti-Inflamma damage r/t long-term usage advised not to use Family History Father Heart disease Mother Heart disease Sister Heart disease Diabetes Surgical History History of bowel resection History of delivery History of cholecystectomy History of colonoscopy (~10/2019) History of colostomy History of cystoscopy History of hysterectomy Social History household members: none Smoking Status: Former smoker Tobacco: How many years used: 53 how long ago did patient quit smoking: Quit 2-5 years prior. second hand exposure: No alcohol intake: never substance use type: does not use caffeine: No what type of physical activity do you participate in: none ROS ROS ED Constitutional Constitutional ED: Reports chills and sweats; Denies fever(s) or subjective Eyes Eyes: Denies change in vision ENT ENT ED: Denies rhinorrhea or sore throat Cardiovascular Cardiovascular: Denies chest pain or palpitations Respiratory/Chest Respiratory/Chest: Denies cough or dyspnea Gastrointestinal Gastrointestinal: Reports abdominal pain and nausea Genitourinary Genitourinary ED: Reports dysuria and hematuria Musculoskeletal Musculoskeletal: Denies arthralgias or myalgias Integumentary Denies abscess Neurologic Neurologic: Denies headache(s) or paresthesias Psychiatric Psychiatric: Denies anxiety or depression EXAM Physical Exam Const Vital Signs: 08/08/22 17:23 Temperature 97.6 F L Temperature Source Temporal Pulse Rate 97 Respiratory Rate 18 Blood Pressure 150/80 H Blood Pressure Mean 103 Pulse Ox 98 Oxygen Delivery Method Room Air Positive well nourished General Appearance ED: NAD; Negative for pallor HEENT Reports moist mucous membranes Eyes PERRL and EOMs intact bilaterally Chest Wall inspection of chest normal and palpation of chest normal Resp normal respiratory effort and clear to auscultation bilaterally Cardio regular rate and regular rhythm GI Palpation: tender LLQ Back/Spine General Back: CVA tenderness left Neuro oriented x3 and CN's II-XII intact bilaterally Sensorium / Orientation: alert Skin no rashes or lesions noted General Skin Exam: Negative for jaundice or pallor MDM MDM MDM Narrative Medical decision making narrative: Blood [id number] female presenting with known left UVJ calculus 5 mm. She had blood work done today and her CBC was unremarkable. BMP shows that her renal function is at baseline. Apparently she had a urine dip in the office and was told she had a UTI. I will obtain a urinalysis because I cannot see the results of this. Patient reports she supposed to be on Macrobid but did not milk pickup driver her prescription. Patient medicated with morphine, Zofran, IV fluids. Patient's urinalysis consistent with infection. She is pain-free after morphine and Zofran. She was given oxycodone. She will be given a prescription for oxycodone as well. Patient states that she was given a prescription for Macrobid but with concern for pyelonephritis I gave her prescription for cefpodoxime. She has chronic kidney disease and I will take Bactrim would be a good choice and she is allergic to ciprofloxacin. I sent the prescription for antibiotics to her pharmacy because she is already had a dose of Rocephin today. Urine culture was sent. Impression: 1. Left 5 mm UVJ stone 2. Pyelonephritis Lab Data Attestation: I reviewed the patient's lab results. Labs: Laboratory Results - last 24 hr 08/08/22 21:00 Urine Color Straw Urine Clarity Cloudy Urine pH 6.0 Ur Specific Basco 1.015 Urine Protein 100 H Urine Glucose (UA) Normal Urine Ketones Negative Urine Occult Blood 150 H Urine Nitrite Positive H Urine Bilirubin Negative Urine Urobilinogen Normal Ur Leukocyte Esterase 500 H Urine RBC 10-25 SEEN Urine WBC >100 SEEN Ur Squamous Epith Cells 0 SEEN Urine Bacteria 4+ Urine Mucus 0 SEEN Discharge Plan Triage Chief Complaint: Flank Pain ED Provider: Bismark Moreno Dx/Rx/DC Orders Clinical Impression: Ureteral calculus Instructions: ED Kidney Stone w/ Colic Prescriptions: New oxycodone 5 mg tablet 5 mg PO Q6H PRN (Reason: pain) 3 Days Qty: 12 0RF ondansetron 4 mg tablet,disintegrating 4 mg PO Q8H PRN (Reason: nausea and vomiting) Qty: 12 0RF cefpodoxime 200 mg tablet 200 mg PO BID Qty: 20 0RF Rx Instructions: must administer with a meal/food No Action bupropion HCl 150 mg tablet extended release 24 hr 150 mg PO QAM azathioprine 50 mg tablet 150 mg PO DAILY Rx Instructions: Call office with pain, nausea, vomiting. albuterol sulfate [Ventolin HFA] 90 mcg/actuation HFA aerosol inhaler 2 puff INHALATION Q4H PRN (Reason: shortness of breath or wheezing) Qty: 18 6RF citalopram 40 MG tablet 40 mg PO DAILY levothyroxine 100 mcg tablet 100 mcg PO DAILY@0600 Label Comments: PT IS CURRENTLY ON 100 MCG SHE IS TAKING A 25 AND 75 MCG TO MAKE THE 100 MCG DAILY DOSE. cyanocobalamin (vitamin B-12) 1,000 MCG/ML solution 100 mcg IM Q30D sodium bicarbonate 650 mg tablet 650 mg PO TID cholecalciferol (vitamin D3) [Vitamin D3] 25 mcg (1,000 unit) Capsule 25 mcg PO DAILY oxycodone-acetaminophen [Percocet] 5-325 mg tablet 1 tab PO Q8H PRN (Reason: pain) 5 Days Qty: 20 0RF phenazopyridine [phenazopyridine] 100 MG tablet 100 mg PO TID Qty: 30 0RF fluticasone propion-salmeterol 230-21 mcg/actuation HFA aerosol inhaler 2 puff inhalation BID Qty: 12 6RF Primary Care Provider: Elliot Kang Chi Referrals: Elliot Kang Chi, MD [Primary Care Provider] - Disposition Disposition: Home, Self Care
[2022-08-08] MEDS: Morphine 4 MG/ML Syringe IV (19:12)
[2022-08-08] MEDS: Ondansetron 4 MG/2 ML Vial IV (19:12)
[2022-08-08] MEDS: 0.9% Normal Saline 1,000 ML 999 ML IV (19:12)
[2022-08-08] MEDS: oxyCODONE 5 MG Tablet PO (21:06)
[2022-08-08 21:07] LABS: Mucous, Urine 0 SEEN /hpf (<or=2+); Squamous Epithelial Cells - UA 0 SEEN /hpf (5-10)
[2022-08-08 21:09] LABS: Color, Urine Straw (Yellow); Glucose, Dipstick Normal (Normal); Ketone-Dipstick Negative (Negative); Leukocyte Esterase-Dipstick 500 /ul (Negative); Nitrite-Dipstick Positive (Negative); Occult Blood-Urine 150 /ul (Negative); Protein-Dipstick 100 mg/dl (Negative); Specific Gravity, Urine 1.015 (1.002-1.030); Urine Bilirubin Dipstick Negative (Negative); Urine Clarity Cloudy (Clear); Urine Urobilinogen Normal (Normal)
[2022-08-08 21:21] LABS: Bacteria 4+ /hpf (None Seen); Red Blood Cells-Urine 10-25 SEEN /hpf (0-5); White Blood Cells >100 SEEN /hpf (0-5)
== END 2022-08-08 21:30 | disposition home or self-care (01) ==
PROVIDERS: Emergency Provider Student in an Organized Health Care Education/Training Program; PCP Family Medicine Geriatric Medicine; Visit Provider Student in an Organized Health Care Education/Training Program
DX: N13.2 Hydronephrosis with renal and ureteral calculous obstruction (principal); J44.9 Chronic obstructive pulmonary disease, unspecified; K50.90 Crohn's disease, unspecified, without complications; N18.32 Chronic kidney disease, stage 3b; N13.4 Hydroureter; N18.9 Chronic kidney disease, unspecified; Z87.891 Personal history of nicotine dependence; E03.9 Hypothyroidism, unspecified; Z86.73 Personal history of transient ischemic attack (TIA), and cerebral infarction without residual deficits
CPT/HCPCS: 36415; 73564; 74176; 80053; 81001; 82306; 84443; 85025; 87077; 87086; 87088; 87186; 96361; 96374; 96375; 99283; A4216; J2405

== ENCOUNTER → 2022-08-08 | Outpatient (CLI) | payer MEDICARE, OTHER, SELFPAY ==
--- NOTE | 2022-08-08 11:13 | RAD_ITS ---
STUDY: X-RAY - RIGHT KNEE REASON FOR EXAM: Female, 77 years old. In pain. TECHNIQUE: 4 view(s) of the knee. COMPARISON: None. FINDINGS: Osteopenia. Mild medial compartmental arthrosis with small osteophytes. Normal lateral compartment. Mild arthrosis of the patellofemoral compartment. Thickening of the patellar tendon with soft tissue swelling anterior to the patella. RAD/Knee 4 or More Views IMPRESSION: Osteopenia with medial and patellofemoral compartment arthrosis. Soft tissue swelling anterior to the patella. Thickening of the patellar tendon. Electronically Signed: Sukh Parra, at 10:07 EDT ,
[2022-08-08 11:31] LABS: Absolute Lymphocyte Count 2.29 X10^3/uL (0.83-4.51); Absolute Neutrophil Count 7.6 X10^3/uL (2.0-7.7); Basophil# 0.01 X10^3/uL; Basophil% 0.1 % (0-1); Eosinophil# 0.17 X10^3/uL; Eosinophils% 1.5 % (0-5); Hematocrit 44.1 % (37-47); Hemoglobin 14.3 g/dL (12.0-15.0); Lymphocyte # 2.29 X10^3/ul (0.83-4.51); Lymphocyte % 20.9 % (19-41); Mean Corp Hgb Conc 32.4 g/dL (32-36); Mean Corpuscular Hgb 29.1 pg (27.0-32.0); Mean Corpuscular Volume 89.8 fL (81-99); Mean Platelet Vol. 9.7 fl (6.2-12.0); Monocyte# 0.91 X10^3/uL; Monocyte% 8.3 % (0-10); NRBC Flagged by Analyzer 0 % (0-5); Neutrophil # 7.55 X10^3/uL (2.7-7.7); Neutrophil % 68.7 % (47-70); Platelet Count 189 K/mm3 (150-450); RBC Distribution Width CV 12.8 % (11.6-14.6); RBC Distribution Width SD 41.7 fl (35.1-43.9); Red Blood Count 4.91 M/mm3 (4.2-5.4)
[2022-08-08 12:06] LABS: Vitamin D,25 Hydroxy 27.3 ng/mL
[2022-08-08 12:28] LABS: ALB/GLOB Ratio 0.9 RATIO (0.9-2.4); AST(SGOT) 33 U/L (15-37); Alanine Aminotransfer ALT/SGPT 28 U/L (13-56); Albumin, Serum 3.6 g/dL (3.2-5.0); Alkaline Phosphatase 110 U/L (45-117); Anion Gap 11 (5-15); BUN 23 mg/dL (7-18); BUN/Creat Ratio 17.6 RATIO (10-20); Calcium,Total 9.8 mg/dL (8.5-10.1); Chloride 112 mmol/L (98-107); Creatinine, Serum 1.31 mg/dL (0.55-1.02); EST Glomerular Filtration Rate 42 mL/min (>60); Est Glom Filt Rate - Afr Amer 51 mL/min (>60); Globulin 4.1 g/dL (2.2-4.2); Glucose 85 mg/dL (74-106); Potassium 3.6 mmol/L (3.5-5.1); Protein, Total 7.7 g/dL (6.4-8.2); Sodium Level 140 mmol/L (136-145); Thyroid Stim Hormone (TSH) 0.17 uIU/mL (0.358-3.74)
== END | disposition home or self-care (01) ==
LOC: PAVLAB 09:54 → POLAB3 10:59 → RAD 11:12
PROVIDERS: PCP Family Medicine Geriatric Medicine; Referring Provider Family Medicine Geriatric Medicine; Visit Provider Family Medicine Geriatric Medicine
DX: M25.569 Pain in unspecified knee (principal); E55.9 Vitamin D deficiency, unspecified; R53.83 Other fatigue
CPT/HCPCS: 36415; 73564; 80053; 82306; 84443; 85025; 87086

== ENCOUNTER → 2022-08-08 | Outpatient (CLI) | payer MEDICARE, OTHER, SELFPAY ==
--- NOTE | 2022-08-08 11:41 | CT_ITS ---
EXAM: CT ABDOMEN AND PELVIS WITHOUT INTRAVENOUS CONTRAST CLINICAL INDICATION: LEFT FLANK PAIN TECHNIQUE: Helically acquired images were obtained of the abdomen and pelvis without intravenous contrast. This CT exam was performed using one or more of the following dose reduction techniques: automated exposure control, adjustment of the mA and/or kV according to patient size, and/or use of iterative reconstruction technique. This report was created using [employer] report generation technology. COMPARISON: 10/25/2021 FINDINGS: LOWER THORAX: Unremarkable. Lung bases are clear. No cardiomegaly. No significant pericardial effusion. ABDOMEN: LIVER: Unremarkable. Homogeneous. GALLBLADDER AND BILE DUCTS: Unremarkable. No calcified gallstones. No gallbladder distention or wall edema. No intra- or extrahepatic biliary ductal dilation. PANCREAS: Unremarkable. No focal cystic mass. SPLEEN: Unremarkable. Normal size without focal cystic or solid mass. ADRENALS: Unremarkable. No nodules. KIDNEYS AND URETERS: There is left-sided hydronephrosis and hydroureter. There is a 5 mm stone at the left UVJ. There are nonobstructing calyceal stones bilaterally. Normal renal size and position. STOMACH AND BOWEL: There is a left lower quadrant colostomy. No stomach or bowel distention. No focal inflammatory change. PELVIS: APPENDIX: No evidence of acute appendicitis. BLADDER: Unremarkable. REPRODUCTIVE: Unremarkable as visualized. No mass. ABDOMEN and PELVIS: INTRAPERITONEAL SPACE: Unremarkable. No ascites or other fluid collection. No free air. BONES/JOINTS: Unremarkable. No suspicious lytic or blastic abnormality. SOFT TISSUES: Unremarkable. No discrete abdominal or pelvic wall hernia. VASCULATURE: Unremarkable. Abdominal aorta is non-dilated. LYMPH NODES: Unremarkable. No enlarged lymph nodes. CT/Abdomen/Pelvis without Cont IMPRESSION: Obstruction of the left collecting system due to a 5 mm stone left UVJ. There is moderate to severe left-sided hydronephrosis and hydroureter. There are nonobstructing calyceal stones bilaterally. Electronically Signed: Renny Laboy MD at 12:02 EDT ,
== END | disposition home or self-care (01) ==
LOC: CT 11:41
PROVIDERS: PCP Family Medicine Geriatric Medicine; Referring Provider Family Medicine Geriatric Medicine; Visit Provider Family Medicine Geriatric Medicine
DX: R10.30 Lower abdominal pain, unspecified (principal); N20.0 Calculus of kidney
CPT/HCPCS: 74176

== ENCOUNTER 2022-08-10 10:25 | Day surgery (SDC) | payer MEDICARE, OTHER, SELFPAY ==
[2022-08-10] VITALS (10 sets, daily range): BP systolic 80–131; BP diastolic 44–58; PULSE 77–95; RESP 16–22; TEMP 36.4–37.5; O2SAT 92–100; BMI 22.8
[2022-08-10] MEDS: Lactated Ringers 1,000 ML 15 ML IV (10:35)
[2022-08-10] MEDS: Cefazolin 2 GM in 0.9% Normal Saline 100 ML IV (12:36)
--- NOTE | 2022-08-10 12:36 | DCINST_ITS ---
Discharge Instructions Diet Discharge Diet: No restrictions Activity Discharge Activity: Return to Normal Activity May resume sexual activity in: 1-2 weeks Dressing / Incision Call your doctor if you observe: Fever of 101 or Higher, Inability to urinate and Inability to have a bowel movement Follow Up Care Please Follow Up With: Minal Morrison MD When: office will call patient for arrangements for next surgery Test Results: Test results from this visit will be discussed in further detail at your follow- up appointment, if applicable. Discharge Plan Admission Attending Provider: Minal Morrison Primary Care Provider: Elliot Kang Chi Discharge Orders/Prescriptions Prescriptions: New phenazopyridine [Pyridium] 200 mg tablet 200 mg PO TID PRN PRN (Reason: Bladder Spasms) 7 Days Qty: 30 0RF Continued bupropion HCl 150 mg tablet extended release 24 hr 150 mg PO QAM albuterol sulfate [Ventolin HFA] 90 mcg/actuation HFA aerosol inhaler 2 puff INHALATION Q4H PRN (Reason: shortness of breath or wheezing) Qty: 18 6RF citalopram 40 MG tablet 40 mg PO DAILY levothyroxine 100 mcg tablet 100 mcg PO DAILY@0600 Label Comments: PT IS CURRENTLY ON 100 MCG SHE IS TAKING A 25 AND 75 MCG TO MAKE THE 100 MCG DAILY DOSE. cyanocobalamin (vitamin B-12) 1,000 MCG/ML solution 100 mcg IM Q30D sodium bicarbonate 650 mg tablet 650 mg PO TID cholecalciferol (vitamin D3) [Vitamin D3] 25 mcg (1,000 unit) Capsule 25 mcg PO DAILY oxycodone 5 mg tablet 5 mg PO Q6H PRN (Reason: pain) 3 Days Qty: 12 0RF ondansetron 4 mg tablet,disintegrating 4 mg PO Q8H PRN (Reason: nausea and vomiting) Qty: 12 0RF cefpodoxime 200 mg tablet 200 mg PO BID Qty: 20 0RF Rx Instructions: must administer with a meal/food Referrals / Follow Up: Elliot Kang Chi, MD [Primary Care Provider] - Disposition Disposition (needs filled in before D/C Order can be placed): Home, Self Care
--- NOTE | 2022-08-10 12:38 | OP.PCM_ITS ---
Report of Operation Date of Procedure: 08/10/22 Pre-Operative Diagnosis: left ureteral calculus, urinary tract infection, hydro nephrosis Post-Operative Diagnosis: same Surgery/Procedure Performed:: cystoscopy with left ureteral stent insertion Surgeon: Minal Morrison Type of Anesthesia: MAC Specimen's removed: Urine for culture and sensitivity Description of Procedure: The patient is a 77-year-old female who presented to the office yesterday symptomatic from a left distal obstructing 5 mm ureteral calculus with hydronephrosis. After discussing the risk benefits and alternatives, she decided to proceed with left ureteral stent insertion for management of her infection and hydronephrosis with delayed stone management. The patient was taken to the operating room and placed on the operating room table. Anesthesia monitored the head, neck, airway, IV access and vital signs throughout the case. Once anesthesia was appropriate ministered, the patient was placed into dorsolithotomy position and was prepped and draped in usual sterile fashion. The cystoscope was inserted through the urethra under direct visualization into the urinary bladder. The urine was cloudy and the mucosa was erythematous in appearance. The left ureteral orifice was identified and carefully intubated with a 0.035 Glidewire. The wire was seen in the renal pelvis. A 6 [place] 22 cm JJ stent was inserted over the wire with good positioning in the renal pelvis as well as the urinary bladder. Urine was then sent for repeat culture. The patient's bladder was emptied and the case was terminated. The patient was awakened and taken to the recovery room in good condition. There were no complications during this procedure. Grafts/Implants Used: 6x22 JJ stent Complications none Admit VTE Documentation VTE Present on Admission: Yes VTE Mechan Device Prophylaxis: SCD's VTE Pharm Prophylaxis ordered?: No Reason prophylaxis not ordered:: Treatment Not Indicated
== END 2022-08-10 14:32 | disposition home or self-care (01) ==
LOC: SDC 10:27 → AC 10:28
PROVIDERS: PCP Family Medicine Geriatric Medicine; Referring Provider Urology; Visit Provider Urology
PROC: (CPT 52332; principal; 2022-08-10 12:20)
DX: N13.2 Hydronephrosis with renal and ureteral calculous obstruction (principal); J44.9 Chronic obstructive pulmonary disease, unspecified; K50.90 Crohn's disease, unspecified, without complications; R82.89 Other abnormal findings on cytological and histological examination of urine; N39.0 Urinary tract infection, site not specified; Z87.442 Personal history of urinary calculi; N39.46 Mixed incontinence; E03.9 Hypothyroidism, unspecified; F32.A Depression, unspecified
CPT/HCPCS: 52332; 00910; 76000; 87086; J7120; C2625; J2405

== ENCOUNTER → 2022-08-15 | Outpatient (CLI) | payer MEDICARE, OTHER, SELFPAY ==
[2022-08-15 18:35] LABS: BUN 13 mg/dL (7-18); BUN/Creat Ratio 9.9 RATIO (10-20); Calcium,Total 9.3 mg/dL (8.5-10.1); Chloride 109 mmol/L (98-107); Creatinine, Serum 1.31 mg/dL (0.55-1.02); EST Glomerular Filtration Rate 42 mL/min (>60); Est Glom Filt Rate - Afr Amer 51 mL/min (>60); Glucose 94 mg/dL (74-106); Phosphorus 2.3 mg/dL (2.5-4.9); Potassium 2.6 mmol/L (3.5-5.1); Sodium Level 140 mmol/L (136-145); Thyroid Stim Hormone (TSH) 0.39 uIU/mL (0.358-3.74)
== END | disposition home or self-care (01) ==
LOC: LAB.FUTURE 15:32
PROVIDERS: PCP Family Medicine Geriatric Medicine; Visit Provider Internal Medicine Nephrology
DX: E03.9 Hypothyroidism, unspecified (principal); N17.9 Acute kidney failure, unspecified
CPT/HCPCS: 36415; 80069; 84443

== ENCOUNTER → 2022-08-19 | Outpatient (CLI) | payer MEDICARE, OTHER, SELFPAY ==
[2022-08-19 13:52] LABS: BUN 11 mg/dL (7-18); BUN/Creat Ratio 8.4 RATIO (10-20); Calcium,Total 9.1 mg/dL (8.5-10.1); Chloride 114 mmol/L (98-107); Creatinine, Serum 1.31 mg/dL (0.55-1.02); EST Glomerular Filtration Rate 42 mL/min (>60); Est Glom Filt Rate - Afr Amer 51 mL/min (>60); Glucose 84 mg/dL (74-106); Phosphorus 2.8 mg/dL (2.5-4.9); Potassium 3.1 mmol/L (3.5-5.1); Sodium Level 142 mmol/L (136-145); Thyroid Stim Hormone (TSH) 0.82 uIU/mL (0.358-3.74)
== END | disposition home or self-care (01) ==
LOC: LAB 12:02
PROVIDERS: PCP Family Medicine Geriatric Medicine; Visit Provider Internal Medicine Nephrology
DX: N17.9 Acute kidney failure, unspecified (principal); E03.9 Hypothyroidism, unspecified
CPT/HCPCS: 36415; 80069; 84443

== ENCOUNTER 2022-08-25 06:42 | Day surgery (SDC) | payer MEDICARE, OTHER, SELFPAY ==
[2022-08-25 07:08] VITALS: BP 102/63; PULSE 86; RESP 16; TEMP 37; O2SAT 96; BMI 22.1
[2022-08-25] MEDS: Lactated Ringers 1,000 ML 15 ML IV (07:14)
[2022-08-25 07:51] LABS: Magnesium 1.9 mg/dL (1.6-2.6); Potassium 3.6 mmol/L (3.5-5.1)
[2022-08-25] MEDS: Cefazolin 2 GM in 0.9% Normal Saline 100 ML IV (08:38)
[2022-08-25 09:10] VITALS: BP 101/54; BP 102/63; PULSE 72; RESP 16; TEMP 36.5; O2SAT 96
[2022-08-25 09:15] VITALS: BP 102/63; BP 104/62; PULSE 76; RESP 16; O2SAT 93
--- NOTE | 2022-08-25 09:21 | DCINST_ITS ---
Discharge Instructions Diet Discharge Diet: No restrictions Activity Discharge Activity: Return to Normal Activity Dressing / Incision Call your doctor if you observe: Fever of 101 or Higher, Inability to urinate and Inability to have a bowel movement Follow Up Care Please Follow Up With: Minal Morrison MD When: Call office for appointment to be seen in 3 to 4 weeks Test Results: Test results from this visit will be discussed in further detail at your follow- up appointment, if applicable. Discharge Plan Admission Attending Provider: Minal Morrison Primary Care Provider: Elliot Kang Chi Discharge Orders/Prescriptions Prescriptions: New cephalexin [cephalexin] 500 mg capsule 500 mg PO Q12 2 Days Qty: 4 0RF Continued bupropion HCl 150 mg tablet extended release 24 hr 150 mg PO QAM albuterol sulfate [Ventolin HFA] 90 mcg/actuation HFA aerosol inhaler 2 puff INHALATION Q4H PRN (Reason: shortness of breath or wheezing) Qty: 18 6RF citalopram 40 MG tablet 40 mg PO DAILY levothyroxine 100 mcg tablet 100 mcg PO DAILY@0600 Label Comments: PT IS CURRENTLY ON 100 MCG SHE IS TAKING A 25 AND 75 MCG TO MAKE THE 100 MCG DAILY DOSE. cyanocobalamin (vitamin B-12) 1,000 MCG/ML solution 100 mcg IM Q30D sodium bicarbonate 650 mg tablet 650 mg PO TID cholecalciferol (vitamin D3) [Vitamin D3] 25 mcg (1,000 unit) Capsule 25 mcg PO DAILY oxycodone 5 mg tablet 5 mg PO Q6H PRN (Reason: pain) 3 Days Qty: 12 0RF ondansetron 4 mg tablet,disintegrating 4 mg PO Q8H PRN (Reason: nausea and vomiting) Qty: 12 0RF cefpodoxime 200 mg tablet 200 mg PO BID Qty: 20 0RF Rx Instructions: must administer with a meal/food phenazopyridine [Pyridium] 200 mg tablet 200 mg PO TID PRN PRN (Reason: Bladder Spasms) 7 Days Qty: 30 0RF potassium chloride 20 mEq Tablet Extended Release 20 meq PO DAILY Referrals / Follow Up: Elliot Kang Chi, MD [Primary Care Provider] - Disposition Disposition (needs filled in before D/C Order can be placed): Home, Self Care
--- NOTE | 2022-08-25 09:23 | PCM.OPRPT ---
Report of Operation Date of Procedure: 08/25/22 Pre-Operative Diagnosis: Left ureteral calculus Post-Operative Diagnosis: Same Surgery/Procedure Performed:: Cystoscopy, left ureteral stent removal, left ureteroscopy Surgeon: Minal Morrison Type of Anesthesia: General Description of Procedure: The patient is a 77-year-old female with a history of stones who recently underwent a left ureteral stent insertion for an obstructing distal stone. She now presents for definitive intervention. Informed consent has been obtained. The patient was taken to the operating room and placed on the operating room table. Anesthesia monitored the head, neck, airway, IV access and vital signs throughout the case. Once anesthesia was appropriately administered, the patient was placed into dorsolithotomy position and was prepped and draped in usual sterile fashion. The cystoscope was inserted through the urethra under direct visualization into the urinary bladder. A 0.035 Glidewire was inserted alongside the left ureteral stent into the renal pelvis as seen on fluoroscopic visualization. The left ureteral stent was then removed. A second Glidewire was then passed through the ureteral orifice as well. The flexible ureteroscope was placed over the wire which was then removed. Access was obtained all the way to the renal pelvis were each calyx was directly visualized and no further stones were identified. The entire length of the ureter was directly visualized and there were no stones seen. The safety wire was removed the bladder was emptied and the case was terminated. The patient was awakened and taken to the recovery room in good condition. There were no complications during this procedure. Complications None Admit VTE Documentation VTE Present on Admission: Yes VTE Mechan Device Prophylaxis: SCD's VTE Pharm Prophylaxis ordered?: No Reason prophylaxis not ordered:: Treatment Not Indicated
[2022-08-25 09:30] VITALS: BP 102/63; BP 110/63; PULSE 78; RESP 16; O2SAT 98
[2022-08-25 09:42] VITALS: BP 102/63; BP 105/59; PULSE 76; RESP 16; TEMP 36.6; O2SAT 96
[2022-08-25 10:10] VITALS: BP 102/63; BP 116/72; PULSE 96; RESP 16; TEMP 36.6; O2SAT 96
== END 2022-08-25 10:33 | disposition home or self-care (01) ==
LOC: SDC 06:43 → AC 06:43
PROVIDERS: Anesthesiology; PCP Family Medicine Geriatric Medicine; Referring Provider Urology; Visit Provider Urology
PROC: 0TJ98ZZ Inspection of Ureter, Via Natural or Artificial Opening Endoscopic (ICD-10-PCS; CPT 52352; principal; 2022-08-25 08:35)
DX: N13.6 Pyonephrosis (principal); C34.90 Malignant neoplasm of unspecified part of unspecified bronchus or lung; J44.9 Chronic obstructive pulmonary disease, unspecified; I48.91 Unspecified atrial fibrillation; N39.46 Mixed incontinence; E07.9 Disorder of thyroid, unspecified; F32.A Depression, unspecified; F41.9 Anxiety disorder, unspecified; F17.211 Nicotine dependence, cigarettes, in remission; Z79.890 Hormone replacement therapy; Z79.899 Other long term (current) drug therapy
CPT/HCPCS: 52310; 00910; 76000; 83735; 84132; J7120; C1769; J2405

== ENCOUNTER 2022-08-26 20:22 | Inpatient (IN) | payer MEDICARE, OTHER, SELFPAY ==
[2022-08-26] VITALS (8 sets, daily range): BP systolic 64–90; BP diastolic 42–58; PULSE 84–103; RESP 14–27; TEMP 35.6–36.4; O2SAT 92–100; BMI 22.1; BMI 23.1
--- NOTE | 2022-08-26 20:41 | EKG12_ITS ---
Test Reason : WEAKNESS Blood Pressure : / mmHG Vent. Rate : 080 BPM Atrial Rate : 080 BPM P-R Int : 182 ms QRS Dur : 078 ms QT Int : 380 ms P-R-T Axes : 046 -11 073 degrees QTc Int : 438 ms Normal sinus rhythm Nonspecific T wave abnormality Abnormal ECG Confirmed by HUGH TERRAZAS, REFUGIO ([id number]), newspaper copy editor DYLON ZUNIGA ([id number]) on 08/30/2022 9:45:15 AM Referred By: Confirmed By:REFUGIO REESE MD
--- NOTE | 2022-08-26 20:42 | EDS_ITS ---
HPI History of Present Illness Chief Complaint: Weakness Informant: patient and family Narrative Narrative: Here with daughter increasing weakness exertional dyspnea since yesterday. No vomiting diarrhea. No cough. She is status post ureteral stent removal yest carlosay by Dr. Morrison. No diagnosed with ureteral stone approximately 3 weeks ago initial stent placed on the fifth this was removed yesterday there is no stones present. Per daughter she has passed all her stones. She has no back pain. She is empirically on antibiotics. Denies fevers. History of adenocarcinoma left lung with resection there is no chemoradiation. This was in the past. No cardiac history. Presented blood pressure in triage was 64 systolic. Denies history of cardiomyopathy. Prior similar symptoms: No PFSH PFSH Medical History Abdominal bloating Anxiety Anxiety Arthritis Cancer Chronic bronchitis COPD (chronic obstructive pulmonary disease) COPD (chronic obstructive pulmonary disease) COPD exacerbation Crohn's disease Decreased appetite Depression Diarrhea Diarrhea Easy bruising Filling defect on imaging study Former smoker History of echocardiogram History of fracture of patella History of pain when walking History of rectal cancer History of stress test Hydronephrosis Hydronephrosis, right Hypothyroidism halfway current use of immunosuppressive drug Lung cancer Nicotine abuse Osteoporosis Rectal cancer Rectal cancer 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 calculus Shortness of breath on exertion Stage 3b chronic kidney disease (CKD) Thyroid disease TIA (transient ischemic attack) TIA (transient ischemic attack) Urinary retention Walker as ambulation aid Wears dentures Wears hearing aid Home Medications bupropion HCl 150 mg 24 hr tablet, extended release (Wellbutrin XL) 150 mg PO QAM quit smoking 11/28/18 [History Last Taken 12/07/21 07:30] citalopram 40 mg tablet 40 mg PO DAILY Anxiety 04/24/19 [History Last Taken 12/07/21 07:30] cyanocobalamin (vitamin B-12) 1,000 mcg/mL injection solution 100 mcg IM Q30D 10/08/19 [History Last Taken 11/18/21] levothyroxine 100 mcg tablet 100 mcg PO DAILY@0600 07/29/21 [History Last Taken 08/25/22] cholecalciferol (vitamin D3) 25 mcg (1,000 unit) capsule (Vitamin D3) 25 mcg PO DAILY 10/09/21 [History Last Taken 11/18/21] sodium bicarbonate 650 mg tablet 650 mg PO TID 10/09/21 [History Last Taken 11/18/21] albuterol sulfate 90 mcg/actuation aerosol inhaler (Ventolin HFA) 2 puff inhalation Q4H PRN shortness of breath or wheezing #18 grams 03/31/22 [Rx Last Taken Unknown] ondansetron 4 mg disintegrating tablet 4 mg PO Q8H PRN nausea and vomiting #12 tabs 08/08/22 [Rx Last Taken Unknown] oxycodone 5 mg tablet 5 mg PO Q6H PRN pain 3 days #12 tabs 08/08/22 [Rx Last Taken Unknown] phenazopyridine 200 mg tablet (Pyridium) 200 mg PO TID PRN PRN Bladder Spasms 7 days #30 tabs 08/10/22 [Rx Last Taken Unknown] potassium chloride 20 mEq tablet,extended release 20 meq PO DAILY 08/18/22 [History Last Taken Unknown] cephalexin 500 mg capsule 500 mg PO Q12 post-operative 2 days #4 CAPSULES 08/25/22 [Rx Last Taken Unknown] cefpodoxime 200 mg tablet 200 mg PO BID 08/26/22 [History Last Taken Unknown] Allergy/AdvReac Type Severity Reaction Status Date / Time ciprofloxacin [From Cipro] Allergy Rash Verified 08/26/22 20:42 ciprofloxacin HCl Allergy Rash Verified 08/26/22 20:42 [From Cipro] Penicillins Allergy Hives Verified 08/26/22 20:42 codeine AdvReac makes her Verified 08/26/22 20:42 feel weird magnesium citrate AdvReac Nausea Verified 08/26/22 20:42 NSAIDS (Non-Steroidal AdvReac kidney Verified 08/26/22 20:42 Anti-Inflamma damage r/t long-term usage advised not to use Family History Father Heart disease Mother Heart disease Sister Heart disease Diabetes Surgical History History of bowel resection History of delivery History of cholecystectomy History of colonoscopy (~10/2019) History of colostomy History of cystoscopy History of hysterectomy Social History household members: none Smoking Status: Former smoker Tobacco: How many years used: 53 how long ago did patient quit smoking: Quit 2-5 years prior. second hand exposure: No alcohol intake: never substance use type: does not use caffeine: No what type of physical activity do you participate in: none ROS ROS ED Constitutional Constitutional ED: Denies chills, fever(s) or sweats Eyes Eyes: Denies change in vision ENT ENT ED: Denies dysphagia or sore throat Cardiovascular Cardiovascular: Denies chest pain, leg edema, palpitations or racing heartbeat Respiratory/Chest Respiratory/Chest: Reports dyspnea and dyspnea on exertion; Denies cough Gastrointestinal Gastrointestinal: Denies abdominal pain, diarrhea, nausea or vomiting Genitourinary Genitourinary ED: Denies dysuria, hematuria or urinary frequency Musculoskeletal Musculoskeletal: Denies back pain, extremity pain or neck pain Integumentary Denies rash or wounds Neurologic Neurologic: Reports weakness; Denies headache(s) or paresthesias EXAM Physical Exam Const Vital Signs: 08/26/22 20:24 08/26/22 20:27 08/26/22 20:37 Temperature 96.0 F L 96.0 F L Temperature Source Temporal Temporal Pulse Rate 103 H 103 H Respiratory Rate 22 H 22 H Respiratory Effort Normal Non-Labored Respiratory Pattern Normal Blood Pressure 64/52 L 64/52 L Blood Pressure Mean 56 56 Pulse Ox 94 94 Oxygen Delivery Method Room Air Room Air 08/26/22 20:42 08/26/22 22:00 08/26/22 22:19 Temperature Temperature Source Pulse Rate 84 85 Respiratory Rate 16 17 Respiratory Effort Respiratory Pattern Blood Pressure 78/42 L 86/58 L Blood Pressure Mean 54 67 Pulse Ox 92 99 100 Oxygen Delivery Method Room Air Room Air Room Air 08/26/22 22:43 08/26/22 23:25 Temperature Temperature Source Pulse Rate 87 95 Respiratory Rate 14 27 H Respiratory Effort Respiratory Pattern Blood Pressure 70/45 L 90/54 L Blood Pressure Mean 53 66 Pulse Ox 99 96 Oxygen Delivery Method Room Air Positive well nourished and well developed Constitutional Narrative: Nontoxic, fatigued. General Appearance ED: well developed HEENT Reports moist mucous membranes normocephalic and atraumatic Eyes PERRL, EOMs intact bilaterally and conjunctivae normal General Eye ED: Yes normal appearance of both eyes Neck no lymphadenopathy and supple General: Negative for tenderness Chest Wall Chest: Negative for tenderness Resp normal respiratory effort and normal air movement Effort and Inspection: symmetric chest movement; Negative for respiratory distress Cardio regular rate, regular rhythm and no murmurs Peripheral Pulses: pulses 2+ throughout GI normal to inspection, nondistended, normoactive bowel sounds and non-tender Palpation: Negative for guarding or rebound tenderness present Back/Spine no CVA tenderness and no thoracic nor lumbar tenderness Extremity normal to inspection General Extremety ED: Negative for edema or tenderness General Extremity: Negative for edema Neuro oriented x3 and no sensory deficits noted Sensorium / Orientation: awake and alert Skin no rashes or lesions noted and no wounds Sepsis Attestation Sepsis Alert: Yes Sepsis Attestation: Agree w/Sepsis Date exam was performed: 08/26/22 Time exam was performed: 21:00 Possible Source of Sepsis: GI tract/intra-abdominal and Genitourinary Sepsis Organ Dysfunction Criteria Present: SBP < 90 mmHg or MAP < 65 mmHg, Creatinine > 2.0 mg/dL and Lactic Acid > 2 mmol/L Fluid Resuscitation Fluid resuscitation indicated?: Yes Fluid Resuscitation ordered: 30 ml/kg fluid bolus ordered Sepsis Note Date exam was performed: 08/26/22 Time exam was performed: 23:00 Sepsis Attestation: Sepsis re-evaluation was performed Response to fluids: Fluid responsive hypotension MDM MDM MDM Narrative Medical decision making narrative: Recheck blood pressure in the room systolic 84. Pulse ox 93% history of COPD. Sepsis labs were ordered due to hypotension she is given IV fluids. Posterior stent removal yesterday with no urine symptoms or back pain. Empirically current on antibiotics in the cephalosporin family that was on daughter's phone likely Keflex. 2100: After liter of fluids, blood pressure still low at 64. Additional fluids were ordered. Labs are returning white, 27.8. Lactic acid 3.8. Creatinine up to 2.2 from 1.3 previously. No urine obtained. With her hypotension discussed Gallagher catheter placement for I's and O's. Chest x-ray 1 view reviewed by myself read by radiology shows no acute process. She is broadly covered with antibiotics for severe sepsis unclear source at this time. However with her recent procedure likely intra-abdominal urine source. Allergic to penicillin with hives meropenem vancomycin was ordered. Sepsis reevaluation was performed this time normal heart and lung sounds. Normal perfusion, alert and orient x3 clinically stable and talking. Urine from Gallagher notes a significant infection. Cultures are pending. Blood pressure still labile, discussed placement of central line with patient and gerson toth. Agreed. Written consent. Placed with no complications. Post chest x-ray films reviewed by myself read by radiology notes good placement no pneumothorax. I spoke with hospitalist, Dr. Pappas for admission to ICU. Procedure note: Written consent. Risks and benefits discussed. Timeout performed. Full sterile conditions. Ultrasound-guided. Patient laid in Trendelenburg position. Skin was cleansed with ChloraPrep. Drapes were placed. Right IJ ultrasound noted location of IJ. Lidocaine for analgesics. Ultrasound-guided Seldinger technique first take dark blood. Guidewire placed, skin incision, skin dilation. Triple-lumen cath 7.5 Ethiopian placed 15 cm. Secured. Dark blood return in all 3 with flushing. Biopatch placed and sterile dressing. Post chest x-ray noted good positioning. Lab Data Attestation: I reviewed the patient's lab results. Labs: Laboratory Results - last 24 hr 08/26/22 08/26/22 08/26/22 20:55 20:55 20:55 WBC 27.8 H RBC 4.32 Hgb 12.2 Hct 38.7 MCV 89.6 MCH 28.2 MCHC 31.5 L RDW Std Deviation 45.6 H RDW Coeff of Osmar 13.9 Plt Count 226 MPV 9.1 Immature Gran % (Auto) 2.800 H Neut % (Auto) 83.4 H Lymph % (Auto) 7.1 L Henderson % (Auto) 6.5 Eos % (Auto) 0.0 Baso % (Auto) 0.2 Absolute Neuts (auto) 23.2 H Absolute Lymphs (auto) 1.97 Nucleated RBC % 0 Differential Comment SCANNED Diff Path Review March foll PT 17.1 H INR 1.4 APTT 39.0 H Sodium 137 Potassium 3.5 Chloride 107 Carbon Dioxide 18.0 L Anion Gap 12 BUN 22 H Creatinine 2.20 H Estim Creat Clear Calc 16.16 Est GFR (MDRD) Af Amer 28 L Est GFR (MDRD) Non-Af 23 L BUN/Creatinine Ratio 10.0 Glucose 125 H Lactic Acid Calcium 8.8 Total Bilirubin 1.00 AST 11 L ALT 11 L Alkaline Phosphatase 95 Total Protein 6.9 Albumin 2.8 L Globulin 4.1 Albumin/Globulin Ratio 0.7 L Urine Color Urine Clarity Urine pH Ur Specific [place] Urine Protein Urine Glucose (UA) Urine Ketones Urine Occult Blood Urine Nitrite Urine Bilirubin Urine Urobilinogen Ur Leukocyte Esterase Urine RBC Urine WBC Ur Squamous Epith Cells Urine Bacteria Urine Mucus 08/26/22 08/26/22 20:55 21:55 WBC RBC Hgb Hct MCV MCH MCHC RDW Std Deviation RDW Coeff of Osmar Plt Count MPV Immature Gran % (Auto) Neut % (Auto) Lymph % (Auto) Henderson % (Auto) Eos % (Auto) Baso % (Auto) Absolute Neuts (auto) Absolute Lymphs (auto) Nucleated RBC % Differential Comment Diff Path Review PT INR APTT Sodium Potassium Chloride Carbon Dioxide Anion Gap BUN Creatinine Estim Creat Clear Calc Est GFR (MDRD) Af Amer Est GFR (MDRD) Non-Af BUN/Creatinine Ratio Glucose Lactic Acid 3.8 H* Calcium Total Bilirubin AST ALT Alkaline Phosphatase Total Protein Albumin Globulin Albumin/Globulin Ratio Urine Color Yellow Urine Clarity Turbid Urine pH 5.0 Ur Specific [place] 1.015 Urine Protein 500 H Urine Glucose (UA) Normal Urine Ketones Negative Urine Occult Blood 250 H Urine Nitrite Positive H Urine Bilirubin Negative Urine Urobilinogen Normal Ur Leukocyte Esterase 500 H Urine RBC 10-25 SEEN Urine WBC >100 SEEN Ur Squamous Epith Cells 5-10 SEEN Urine Bacteria 2+ Urine Mucus 0 SEEN Radiography Diagnostic Testing: Clinical Impression(s) from Imaging Studies Chest X-Ray 08/26/22 21:12 IMPRESSION: Normal x-ray examination of the chest. Electronically Signed: Trav Paulson MD at 21:38 EDT Reading Location ID and State: [employer] [facility] [employer] Tel , Service support , Chest X-Ray 08/26/22 23:23 IMPRESSION: 1. Interval placement of right internal jugular deep venous line with tip the catheter overlying the spur vena cava and no pneumothorax. 2. No active pulmonary disease. Electronically Signed: Trav Paulson MD at 23:52 EDT Reading Location ID and State: [employer] Tel , Service support , Discharge Plan Triage Chief Complaint: Weakness ED Provider: Sandro Ramires Dx/Rx/DC Orders Clinical Impression: Severe sepsis, Complicated urinary tract infection, Transient hypotension, TOMÁS (acute kidney injury), Acidosis, lactic, Leukocytosis Primary Care Provider: Elliot Kang Chi Disposition Disposition: Acute Care Hospital [facility] Discharge Date/Time: 08/27/22 00:28
[2022-08-26] MEDS: 0.9% Normal Saline 1,000 ML 999 ML IV ×3 (21:04→22:08)
--- NOTE | 2022-08-26 21:12 | RAD_ITS ---
STUDY: X-RAY CHEST REASON FOR EXAM: Female, 77 years old. sob TECHNIQUE: Single AP portable view of the chest. COMPARISON: 07/12/2021 FINDINGS: The lungs are clear and expanded. There is no demonstrated pleural abnormality. Normal size heart. Normal mediastinum and jayashree. Normal visualized pulmonary arteries. Normal visualized aortic arch and descending thoracic aorta. Normal visualized thoracic spine. Normal visualized ribs, clavicles, and shoulders. There is no demonstrated abnormality of the visualized soft tissue structures of the upper abdomen. RAD/Chest 1 View (Portable) IMPRESSION: Normal x-ray examination of the chest. Electronically Signed: Trav Paulson MD at 21:38 EDT ,
[2022-08-26 21:13] LABS: Absolute Lymphocyte Count 1.97 X10^3/uL (0.83-4.51); Absolute Neutrophil Count 23.2 X10^3/uL (2.0-7.7); Basophil# 0.06 X10^3/uL; Basophil% 0.2 % (0-1); Eosinophil# 0.01 X10^3/uL; Hematocrit 38.7 % (37-47); Hemoglobin 12.2 g/dL (12.0-15.0); Lymphocyte # 1.97 X10^3/ul (0.83-4.51); Lymphocyte % 7.1 % (19-41); Mean Corp Hgb Conc 31.5 g/dL (32-36); Mean Corpuscular Hgb 28.2 pg (27.0-32.0); Mean Corpuscular Volume 89.6 fL (81-99); Mean Platelet Vol. 9.1 fl (6.2-12.0); Monocyte% 6.5 % (0-10); NRBC Flagged by Analyzer 0 % (0-5); Neutrophil # 23.19 X10^3/uL (2.7-7.7); Neutrophil % 83.4 % (47-70); POSITIVE DIFFERENTIAL YES; Platelet Count 226 K/mm3 (150-450); RBC Distribution Width CV 13.9 % (11.6-14.6); RBC Distribution Width SD 45.6 fl (35.1-43.9); Red Blood Count 4.32 M/mm3 (4.2-5.4); White Blood Count 27.8 K/mm3 (4.4-11.0)
[2022-08-26 21:19] LABS: Differential Indicated SCAN CRITERIA MET
[2022-08-26 21:20] LABS: International Normalized Ratio 1.4; Prothrombin Time (Protime)PT. 17.1 SECONDS (11.7-14.9)
[2022-08-26 21:29] LABS: ALB/GLOB Ratio 0.7 RATIO (0.9-2.4); AST(SGOT) 11 U/L (15-37); Alanine Aminotransfer ALT/SGPT 11 U/L (13-56); Albumin, Serum 2.8 g/dL (3.2-5.0); Alkaline Phosphatase 95 U/L (45-117); Anion Gap 12 (5-15); BUN 22 mg/dL (7-18); Calcium,Total 8.8 mg/dL (8.5-10.1); Chloride 107 mmol/L (98-107); EST Glomerular Filtration Rate 23 mL/min (>60); Est Glom Filt Rate - Afr Amer 28 mL/min (>60); Estimated Creatinine Clearance 16.16 ml/min; Globulin 4.1 g/dL (2.2-4.2); Glucose 125 mg/dL (74-106); Potassium 3.5 mmol/L (3.5-5.1); Protein, Total 6.9 g/dL (6.4-8.2); Sodium Level 137 mmol/L (136-145)
[2022-08-26 21:37] LABS: Lactic Acid 3.8 mmol/L (0.4-1.9)
[2022-08-26 21:51] LABS: Differential Comment SCANNED
[2022-08-26 21:59] LABS: Mucous, Urine 0 SEEN /hpf (<or=2+)
[2022-08-26 22:10] LABS: Color, Urine Yellow (Yellow); Glucose, Dipstick Normal (Normal); Ketone-Dipstick Negative (Negative); Leukocyte Esterase-Dipstick 500 /ul (Negative); Nitrite-Dipstick Positive (Negative); Occult Blood-Urine 250 /ul (Negative); Protein-Dipstick 500 mg/dl (Negative); Specific Gravity, Urine 1.015 (1.002-1.030); Urine Bilirubin Dipstick Negative (Negative); Urine Clarity Turbid (Clear); Urine Urobilinogen Normal (Normal)
[2022-08-26 22:27] LABS: Red Blood Cells-Urine 10-25 SEEN /hpf (0-5); White Blood Cells >100 SEEN /hpf (0-5)
[2022-08-26 22:28] LABS: Bacteria 2+ /hpf (None Seen); Squamous Epithelial Cells - UA 5-10 SEEN /hpf (5-10)
--- NOTE | 2022-08-26 23:23 | RAD_ITS ---
STUDY: X-RAY CHEST REASON FOR EXAM: Female, 77 years old. line placement TECHNIQUE: Single AP portable view of the chest. COMPARISON: 08/26/2022 at 2109 FINDINGS: Interval placement of right internal jugular deep venous line with tip the catheter overlying the spur vena cava with no pneumothorax. The lungs are clear and expanded. There is no demonstrated pleural abnormality. Normal size heart. Normal mediastinum and jayashree. Normal visualized pulmonary arteries. Normal visualized aortic arch and descending thoracic aorta. Normal visualized thoracic spine. Normal visualized ribs, clavicles, and shoulders. There is no demonstrated abnormality of the visualized soft tissue structures of the upper abdomen. RAD/CXR for Line Placement IMPRESSION: 1. Interval placement of right internal jugular deep venous line with tip the catheter overlying the spur vena cava and no pneumothorax. 2. No active pulmonary disease. Electronically Signed: Trav Paulson MD at 23:52 EDT ,
--- NOTE | 2022-08-26 23:31 | PCM.HP.STD ---
[facility] - General General Date of Admission: 08/26/22 Date of Service: 08/27/22 Chief Complaint: Malaise HPI Narrative JOSE DE JESUS GOLD, is a 77 F with a significant history of lung cancer status post left upper lobe lobectomy; rectal cancer status post rectal resection and with colostomy; Crohn disease; tobacco abuse; and who had left urethral stent removed presenting a day after stent removal with malaise. Associated with her symptoms is lethargy, chills, rigors and anorexia. Also she reports nausea and diarrhea. She was placed on antibiotics prophylactically for removal of the ureteral stent. [facility] Medical History Abdominal bloating Anxiety Anxiety Arthritis Cancer Chronic bronchitis COPD (chronic obstructive pulmonary disease) COPD (chronic obstructive pulmonary disease) COPD exacerbation Crohn's disease Decreased appetite Depression Diarrhea Diarrhea Easy bruising Filling defect on imaging study Former smoker History of echocardiogram History of fracture of patella History of pain when walking History of rectal cancer History of stress test Hydronephrosis Hydronephrosis, right Hypothyroidism custodial current use of immunosuppressive drug Lung cancer Nicotine abuse Osteoporosis Rectal cancer Rectal cancer 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 calculus Shortness of breath on exertion Stage 3b chronic kidney disease (CKD) Thyroid disease TIA (transient ischemic attack) TIA (transient ischemic attack) Urinary retention Walker as ambulation aid Wears dentures Wears hearing aid Home Medications bupropion HCl 150 mg 24 hr tablet, extended release (Wellbutrin XL) 150 mg PO QAM quit smoking 11/28/18 [History Last Taken 12/07/21 07:30] citalopram 40 mg tablet 40 mg PO DAILY Anxiety 04/24/19 [History Last Taken 12/07/21 07:30] cyanocobalamin (vitamin B-12) 1,000 mcg/mL injection solution 100 mcg IM Q30D 10/08/19 [History Last Taken 11/18/21] levothyroxine 100 mcg tablet 100 mcg PO DAILY@0600 07/29/21 [History Last Taken 08/25/22] cholecalciferol (vitamin D3) 25 mcg (1,000 unit) capsule (Vitamin D3) 25 mcg PO DAILY 10/09/21 [History Last Taken 11/18/21] sodium bicarbonate 650 mg tablet 650 mg PO TID 10/09/21 [History Last Taken 11/18/21] albuterol sulfate 90 mcg/actuation aerosol inhaler (Ventolin HFA) 2 puff inhalation Q4H PRN shortness of breath or wheezing #18 grams 03/31/22 [Rx Last Taken Unknown] ondansetron 4 mg disintegrating tablet 4 mg PO Q8H PRN nausea and vomiting #12 tabs 08/08/22 [Rx Last Taken Unknown] oxycodone 5 mg tablet 5 mg PO Q6H PRN pain 3 days #12 tabs 08/08/22 [Rx Last Taken Unknown] phenazopyridine 200 mg tablet (Pyridium) 200 mg PO TID PRN PRN Bladder Spasms 7 days #30 tabs 08/10/22 [Rx Last Taken Unknown] potassium chloride 20 mEq tablet,extended release 20 meq PO DAILY 08/18/22 [History Last Taken Unknown] cephalexin 500 mg capsule 500 mg PO Q12 post-operative 2 days #4 CAPSULES 08/25/22 [Rx Last Taken Unknown] cefpodoxime 200 mg tablet 200 mg PO BID 08/26/22 [History Last Taken Unknown] Allergy/AdvReac Type Severity Reaction Status Date / Time ciprofloxacin [From Cipro] Allergy Rash Verified 08/26/22 20:42 ciprofloxacin HCl Allergy Rash Verified 08/26/22 20:42 [From Cipro] Penicillins Allergy Hives Verified 08/26/22 20:42 codeine AdvReac makes her Verified 08/26/22 20:42 feel weird magnesium citrate AdvReac Nausea Verified 08/26/22 20:42 NSAIDS (Non-Steroidal AdvReac kidney Verified 08/26/22 20:42 Anti-Inflamma damage r/t long-term usage advised not to use Family History Father Heart disease Mother Heart disease Sister Heart disease Diabetes Surgical History History of bowel resection History of delivery History of cholecystectomy History of colonoscopy (~10/2019) History of colostomy History of cystoscopy History of hysterectomy Social History household members: none Smoking Status: Former smoker Tobacco: How many years used: 53 how long ago did patient quit smoking: Quit 2-5 years prior. second hand exposure: No alcohol intake: never substance use type: does not use caffeine: No what type of physical activity do you participate in: none ROS ROS Narrative Pertinent positives and pertinent negatives as noted in HPI. All other systems were reviewed and are negative Vital Signs Vital Signs Vital Signs: 08/26/22 20:24 08/26/22 20:27 08/26/22 20:37 Temperature 96.0 F L 96.0 F L Temperature Source Temporal Temporal Pulse Rate 103 H 103 H Respiratory Rate 22 H 22 H Respiratory Effort Normal Non-Labored Respiratory Pattern Normal Blood Pressure 64/52 L 64/52 L Blood Pressure Mean 56 56 Pulse Ox 94 94 Oxygen Delivery Method Room Air Room Air 08/26/22 20:42 08/26/22 22:00 08/26/22 22:19 Temperature Temperature Source Pulse Rate 84 85 Respiratory Rate 16 17 Respiratory Effort Respiratory Pattern Blood Pressure 78/42 L 86/58 L Blood Pressure Mean 54 67 Pulse Ox 92 99 100 Oxygen Delivery Method Room Air Room Air Room Air 08/26/22 22:43 08/26/22 23:25 Temperature Temperature Source Pulse Rate 87 95 Respiratory Rate 14 27 H Respiratory Effort Respiratory Pattern Blood Pressure 70/45 L 90/54 L Blood Pressure Mean 53 66 Pulse Ox 99 96 Oxygen Delivery Method Room Air Weight Weight: 55.6 kg Body Mass Index (BMI) 23.1 Physical Exam Narrative Physical exam: General: Thin frame elderly female Head: Normocephalic, atraumatic, no tenderness Eyes: Vision is grossly intact. EOMI ENT, no trauma, moist mucous membranes, no rhinorrhea Neck: Nontender, full range of motion. CVS: Regular rate and rhythm. S1-S2 present. No murmur, gallop or rub. Respiratory : clear to auscultation bilaterally, chest wall nontender, no wheezing Abdomen: Colostomy with brown loose stools. Soft, nontender, nondistended, normal bowel sounds, no masses : Gallagher catheter in place (placed at the emergency department on presentation) Back: Nontender, no CVA tenderness, no midline spinal tenderness, deformities. Extremities: Nontender; full range of motion, no trauma Skin: Normal color, no trauma, abrasions Neuro: Alert, oriented, cranial nerves II through XII grossly intact. Psychiatry: Normal mood. Normal affect. Not depressed. Not anxious. Results Lab / Micro Data Result Diagrams: 08/26/22 20:55 08/26/22 20:55 Labs: Laboratory Results - last 24 hr 08/26/22 20:55: WBC 27.8 H, RBC 4.32, Hgb 12.2, Hct 38.7, MCV 89.6, MCH 28.2, MCHC 31.5 L, RDW Std Deviation 45.6 H, RDW Coeff of Osmar 13.9, Plt Count 226, MPV 9.1, Immature Gran % (Auto) 2.800 H, Neut % (Auto) 83.4 H, Lymph % (Auto) 7.1 L, [place] % (Auto) 6.5, Eos % (Auto) 0.0, Baso % (Auto) 0.2, Absolute Neuts (auto) 23.2 H, Absolute Lymphs (auto) 1.97, Nucleated RBC % 0, Differential Comment SCANNED, Diff Path Review March08/26/22 20:55: PT 17.1 H, INR 1.4, APTT 39.0 H 08/26/22 20:55: Sodium 137, Potassium 3.5, Chloride 107, Carbon Dioxide 18.0 L, Anion Gap 12, BUN 22 H, Creatinine 2.20 H, Estim Creat Clear Calc 16.16, Est GFR (MDRD) Af Amer 28 L, Est GFR (MDRD) Non-Af 23 L, BUN/Creatinine Ratio 10.0, Glucose 125 H, Calcium 8.8, Total Bilirubin 1.00, AST 11 L, ALT 11 L, Alkaline Phosphatase 95, Total Protein 6.9, Albumin 2.8 L, Globulin 4.1, Albumin/Globulin Ratio 0.7 L 08/26/22 20:55: Lactic Acid 3.8 H* 08/26/22 21:55: Urine Color Yellow, Urine Clarity Turbid, Urine pH 5.0, Ur Specific [place] 1.015, Urine Protein 500 H, Urine Glucose (UA) Normal, Urine Ketones Negative, Urine Occult Blood 250 H, Urine Nitrite Positive H, Urine Bilirubin Negative, Urine Urobilinogen Normal, Ur Leukocyte Esterase 500 H, Urine RBC 10-25 SEEN, Urine WBC >100 SEEN, Ur Squamous Epith Cells 5-10 SEEN, Urine Bacteria 2+, Urine Mucus 0 SEEN Radiology Impression Chest X-Ray 08/26/22 21:12 IMPRESSION: Normal x-ray examination of the chest. Electronically Signed: Trav Paulson MD at 21:38 EDT , Assessment & Plan Assessment/Plan (1) Sepsis: (2) Complicated UTI (urinary tract infection): (3) Acute kidney injury: PLAN: Plan Sepsis secondary to a complicated UTI from instrumentation The patient presented with sepsis due to (complicated UTI from instrumentation) with acute sepsis related organ dysfunction as evidenced by acute kidney injury with creatinine of more than 2; systolic blood pressure less than 90/MAP of less than 65; and lactic acidosis with lactic acid of 3.8. SIRS criteria: Respiratory rate more than 20 Heart rate more than 90 WBC more than 12,000 (27,800 on presentation) Also patient with bandemia of 2.8%. Checks x-ray image was visualized and independently interpreted. I agree with radiology interpretation of normal x-ray examination of the chest. Trend lactic acid. Urine culture and blood culture was obtained emergency department, follow-up. Started on vancomycin IV and milligrams IV and continued. Of note patient has penicillin allergy of hives. I will prescribe cephalexin after ureteral stent removed. Hold cephalexin at this time. Trend CBC and BMP. Diarrhea Enteropathogenic panel and C. difficile ordered. TOMÁS on CKD stage IIIa Baseline creatinine of 1.2-1.3. Creatinine on admission was 2.2. BUN is 22. BUN over creatinine is 10. Likely increasing renal from sepsis. Treatment of sepsis as above. IV hydration. Avoid nephrotoxics. DVT Prophylaxis: Subcutaneous Lovenox ordered. Charges/Coding Visit Charges Inpatient E&M: 45241 Init Hosp L3
[2022-08-27] VITALS (55 sets, daily range): BP systolic 79–128; BP diastolic 46–80; PULSE 82–105; RESP 14–27; TEMP 37.1–39.2; O2SAT 83–100; BMI 23.1
[2022-08-27] MEDS: 0.9% Normal Saline 1,000 ML 75 ML IV ×2 (00:53→12:53)
[2022-08-27 01:07] LABS: Reflex Lactate? Y
[2022-08-27] MEDS: Albuterol 2.5 MG/3 ML VIAL.NEB. INHALATION (01:34)
[2022-08-27] MEDS: Acetaminophen 325 MG Tablet 650 MG PO ×4 (01:48→20:33)
[2022-08-27] MEDS: 0.9% Saline Lock 10 ML Syringe IV ×2 (01:56→05:11)
[2022-08-27 02:32] LABS: Lactic Acid 1.3 mmol/L (0.4-1.9)
--- NOTE | 2022-08-27 03:22 | SEPSISATNOTE ---
Sepsis Attestation Sepsis Note Response to fluids: Vasopressors started
[2022-08-27] MEDS: Levothyroxine 75 MCG Tablet PO (05:14)
[2022-08-27] MEDS: Sodium Bicarbonate 650 MG Tablet PO ×3 (05:14→21:10)
[2022-08-27 05:24] LABS: Absolute Lymphocyte Count 1.23 X10^3/uL (0.83-4.51); Absolute Neutrophil Count 18.4 X10^3/uL (2.0-7.7); Basophil# 0.03 X10^3/uL; Basophil% 0.1 % (0-1); Eosinophil# 0.07 X10^3/uL; Eosinophils% 0.3 % (0-5); Lymphocyte # 1.23 X10^3/ul (0.83-4.51); Lymphocyte % 5.8 % (19-41); Mean Corp Hgb Conc 31.3 g/dL (32-36); Mean Corpuscular Hgb 28.3 pg (27.0-32.0); Mean Corpuscular Volume 90.7 fL (81-99); Mean Platelet Vol. 9.1 fl (6.2-12.0); Monocyte# 1.18 X10^3/uL; Monocyte% 5.5 % (0-10); NRBC Flagged by Analyzer 0 % (0-5); Neutrophil # 18.37 X10^3/uL (2.7-7.7); Neutrophil % 86.3 % (47-70); Platelet Count 195 K/mm3 (150-450); RBC Distribution Width CV 14.2 % (11.6-14.6); RBC Distribution Width SD 47.2 fl (35.1-43.9); Red Blood Count 3.53 M/mm3 (4.2-5.4); White Blood Count 21.3 K/mm3 (4.4-11.0)
[2022-08-27 05:47] LABS: Anion Gap 8 (5-15); BUN 20 mg/dL (7-18); BUN/Creat Ratio 12.4 RATIO (10-20); Calcium,Total 7.2 mg/dL (8.5-10.1); Chloride 115 mmol/L (98-107); Creatinine, Serum 1.61 mg/dL (0.55-1.02); EST Glomerular Filtration Rate 33 mL/min (>60); Est Glom Filt Rate - Afr Amer 40 mL/min (>60); Estimated Creatinine Clearance 22.08 ml/min; Glucose 113 mg/dL (74-106); Potassium 3.2 mmol/L (3.5-5.1); Sodium Level 142 mmol/L (136-145)
--- NOTE | 2022-08-27 06:16 | EX.PCM.CONCC ---
Assessment & Plan Assessment/Plan (1) Septic shock: PLAN: Plan RECOMMENDATIONS: 1. Continue empiric antimicrobials. 2. Continue Levophed to maintain a mean arterial pressure at or above 65 mmHg. 3. Start scheduled bronchodilators. 4. Wean supplemental oxygen to maintain saturations at or above 90%. 5. Encourage incentive spirometer use and mobilize patient as tolerated. IMPRESSIONS: 1. Septic shock The patient presented to the hospital with sepsis due to probable complicated cystitis following recent ureteral stent removal, with acute sepsis related organ dysfunction as evidenced by acute kidney injury and fluid refractory hypotension, requiring the initiation of vasopressor support. Plan to continue Levophed to maintain a mean arterial pressure at or above 65 mmHg. Continue antimicrobials as ordered, pending finalized culture results. The patient has demonstrated growth of Pseudomonas and Enterococcus from prior urine cultures. 2. Acute on chronic kidney disease Most likely prerenal in etiology and related to her presenting septic shock. The patient did receive supplemental IV fluid hydration. Anticipate improvement in renal function with stabilization of hemodynamics. Continue to monitor urine output. No current indication for renal replacement therapy. 3. History of COPD/history of adenocarcinoma of the lung status post left upper lobectomy Start scheduled bronchodilator therapy. Wean supplemental oxygen as tolerated for saturations greater than 90%. 4. Hypothyroidism/depression/anxiety Complicates care, management, recovery and prognosis. Continue home medications as indicated. TIME: 32 minutes of critical care time, independent of procedures, was spent addressing the patient's septic shock, complicated cystitis, acute on chronic kidney disease, review of all data and collaboration with the care team. HPI Consult Data Date of Consult: 08/28/22 HPI Narrative Reason for Consultation: Sepsis HPI Narrative: The patient is a 77-year-old female, with a history as outlined below, who presented to the emergency department on August 27 with generalized malaise and fatigue. August 25, the patient underwent cystoscopy with left ureteral stent removal by Dr. Morrison. The procedure itself was uncomplicated. The patient is followed in the pulmonary medicine clinic due to a history of moderate obstructive lung disease, prior tobacco abuse history and adenocarcinoma of the lung status post robot-assisted left upper lobectomy at [facility] in June 2020. On presentation to the emergency department, the patient was noted to have a temperature of 96 ?F. She was hypotensive and tachypneic. Initial laboratory evaluation revealed an elevated white blood cell count to 28,000. Chemistry profile was notable for a serum bicarbonate of 18 with a creatinine of 2.20. Lactate was elevated at 3.8. Urine analysis was notable for nitrites, leukocyte Estrace and 2+ urine bacteria. The patient received a total of 3 units of supplemental IV fluids. However, she remained hypotensive and required the initiation of vasopressor support. A central venous catheter was placed. The patient was subsequently admitted to the medical intensive care unit for further management. [facility] Medical History Abdominal bloating Anxiety Anxiety Arthritis Cancer Chronic bronchitis COPD (chronic obstructive pulmonary disease) COPD (chronic obstructive pulmonary disease) COPD exacerbation Crohn's disease Decreased appetite Depression Diarrhea Diarrhea Easy bruising Filling defect on imaging study Former smoker History of echocardiogram History of fracture of patella History of pain when walking History of rectal cancer History of stress test Hydronephrosis Hydronephrosis, right Hypothyroidism custodial current use of immunosuppressive drug Lung cancer Nicotine abuse Osteoporosis Rectal cancer Rectal cancer 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 calculus Shortness of breath on exertion Stage 3b chronic kidney disease (CKD) Thyroid disease TIA (transient ischemic attack) TIA (transient ischemic attack) Urinary retention Walker as ambulation aid Wears dentures Wears hearing aid Home Medications bupropion HCl 150 mg 24 hr tablet, extended release (Wellbutrin XL) 150 mg PO QAM quit smoking 11/28/18 [History Last Taken 12/07/21 07:30] citalopram 40 mg tablet 40 mg PO DAILY Anxiety 04/24/19 [History Last Taken 12/07/21 07:30] cyanocobalamin (vitamin B-12) 1,000 mcg/mL injection solution 100 mcg IM Q30D 10/08/19 [History Last Taken 11/18/21] levothyroxine 100 mcg tablet 100 mcg PO DAILY@0600 07/29/21 [History Last Taken 08/25/22] cholecalciferol (vitamin D3) 25 mcg (1,000 unit) capsule (Vitamin D3) 25 mcg PO DAILY 10/09/21 [History Last Taken 11/18/21] sodium bicarbonate 650 mg tablet 650 mg PO TID 10/09/21 [History Last Taken 11/18/21] albuterol sulfate 90 mcg/actuation aerosol inhaler (Ventolin HFA) 2 puff inhalation Q4H PRN shortness of breath or wheezing #18 grams 05/26/22 [Rx Last Taken Unknown] ondansetron 4 mg disintegrating tablet 4 mg PO Q8H PRN nausea and vomiting #12 tabs 08/08/22 [Rx Last Taken Unknown] oxycodone 5 mg tablet 5 mg PO Q6H PRN pain 3 days #12 tabs 08/08/22 [Rx Last Taken Unknown] phenazopyridine 200 mg tablet (Pyridium) 200 mg PO TID PRN PRN Bladder Spasms 7 days #30 tabs 08/10/22 [Rx Last Taken Unknown] potassium chloride 20 mEq tablet,extended release 20 meq PO DAILY 08/18/22 [History Last Taken Unknown] cephalexin 500 mg capsule 500 mg PO Q12 post-operative 2 days #4 CAPSULES 08/25/22 [Rx Last Taken Unknown] cefpodoxime 200 mg tablet 200 mg PO BID 08/26/22 [History Last Taken Unknown] Allergy/AdvReac Type Severity Reaction Status Date / Time ciprofloxacin [From Cipro] Allergy Rash Verified 08/26/22 20:42 ciprofloxacin HCl Allergy Rash Verified 08/26/22 20:42 [From Cipro] Penicillins Allergy Hives Verified 08/26/22 20:42 codeine AdvReac makes her Verified 08/26/22 20:42 feel weird magnesium citrate AdvReac Nausea Verified 08/26/22 20:42 NSAIDS (Non-Steroidal AdvReac kidney Verified 08/26/22 20:42 Anti-Inflamma damage r/t long-term usage advised not to use Family History Father Heart disease Mother Heart disease Sister Heart disease Diabetes Surgical History History of bowel resection History of delivery History of cholecystectomy History of colonoscopy (~10/2019) History of colostomy History of cystoscopy History of hysterectomy Social History household members: none Smoking Status: Former smoker Tobacco: How many years used: 53 how long ago did patient quit smoking: Quit 2-5 years prior. second hand exposure: No alcohol intake: never substance use type: does not use caffeine: No what type of physical activity do you participate in: none ROS ROS Narrative 10 systems were reviewed with pertinent positives as noted in the HPI above. Physical Exam Const alert and no apparent distress General Appearance: cooperative HEENT normocephalic and head/scalp atraumatic Eyes PERRL, EOMs intact bilaterally and conjunctivae normal Neck supple General: trachea midline and CVC in place Chest inspection of chest normal Resp normal respiratory effort Auscultation: Negative for rales, rhonchi or wheezes Cardio regular rate and regular rhythm GI soft to palpation and non-tender Extremity no clubbing, cyanosis or edema Skin no rashes or lesions noted Neuro oriented x3, CN's II-XII intact bilaterally, moves all extremities and no focal motor deficits Psych cooperative and affect normal Lab / Micro Data Result Diagrams: 08/28/22 05:20 08/27/22 05:10 Labs: Laboratory Results - last 24 hr 08/26/22 20:55: WBC 27.8 H, RBC 4.32, Hgb 12.2, Hct 38.7, MCV 89.6, MCH 28.2, MCHC 31.5 L, RDW Std Deviation 45.6 H, RDW Coeff of Osmar 13.9, Plt Count 226, MPV 9.1, Immature Gran % (Auto) 2.800 H, Neut % (Auto) 83.4 H, Lymph % (Auto) 7.1 L, [place] % (Auto) 6.5, Eos % (Auto) 0.0, Baso % (Auto) 0.2, Absolute Neuts (auto) 23.2 H, Absolute Lymphs (auto) 1.97, Nucleated RBC % 0, Differential Comment SCANNED, Diff Path Review March foll 08/26/22 20:55: PT 17.1 H, INR 1.4, APTT 39.0 H 08/26/22 20:55: Sodium 137, Potassium 3.5, Chloride 107, Carbon Dioxide 18.0 L, Anion Gap 12, BUN 22 H, Creatinine 2.20 H, Estim Creat Clear Calc 16.16, Est GFR (MDRD) Af Amer 28 L, Est GFR (MDRD) Non-Af 23 L, BUN/Creatinine Ratio 10.0, Glucose 125 H, Calcium 8.8, Total Bilirubin 1.00, AST 11 L, ALT 11 L, Alkaline Phosphatase 95, Total Protein 6.9, Albumin 2.8 L, Globulin 4.1, Albumin/Globulin Ratio 0.7 L 08/26/22 20:55: Lactic Acid 3.8 H* 08/26/22 21:55: Urine Color Yellow, Urine Clarity Turbid, Urine pH 5.0, Ur Specific [place] 1.015, Urine Protein 500 H, Urine Glucose (UA) Normal, Urine Ketones Negative, Urine Occult Blood 250 H, Urine Nitrite Positive H, Urine Bilirubin Negative, Urine Urobilinogen Normal, Ur Leukocyte Esterase 500 H, Urine RBC 10-25 SEEN, Urine WBC >100 SEEN, Ur Squamous Epith Cells 5-10 SEEN, Urine Bacteria 2+, Urine Mucus 0 SEEN 08/27/22 01:50: Lactic Acid 1.3 08/27/22 05:10: WBC 21.3 H, RBC 3.53 L, Hgb 10.0 L, Hct 32.0 L, MCV 90.7, MCH 28.3, MCHC 31.3 L, RDW Std Deviation 47.2 H, RDW Coeff of Osmar 14.2, Plt Count 195, MPV 9.1, Immature Gran % (Auto) 2.000 H, Neut % (Auto) 86.3 H, Lymph % (Auto) 5.8 L, [place] % (Auto) 5.5, Eos % (Auto) 0.3, Baso % (Auto) 0.1, Absolute Neuts (auto) 18.4 H, Absolute Lymphs (auto) 1.23, Nucleated RBC % 0 08/27/22 05:10: Sodium 142, Potassium 3.2 L, Chloride 115 H, Carbon Dioxide 19.0 L, Anion Gap 8, BUN 20 H, Creatinine 1.61 H, Estim Creat Clear Calc 22.08, Est GFR (MDRD) Af Amer 40 L, Est GFR (MDRD) Non-Af 33 L, BUN/Creatinine Ratio 12.4, Glucose 113 H, Calcium 7.2 L Micro: Microbiology 08/27/22 00:45 Stool Enteric Bacteriology - Final 08/27/22 00:45 Stool C. difficile DNA Amplification - Final Radiology Impression Chest X-Ray 08/26/22 21:12 IMPRESSION: Normal x-ray examination of the chest. Electronically Signed: Trav Paulson MD at 21:38 EDT , Chest X-Ray 08/26/22 23:23 IMPRESSION: 1. Interval placement of right internal jugular deep venous line with tip the catheter overlying the spur vena cava and no pneumothorax. 2. No active pulmonary disease. Electronically Signed: Trav Paulson MD at 23:52 EDT , Charges/Coding Procedures Hospitalists Procedures: [id number] [facility] 1st Hr
--- NOTE | 2022-08-27 06:41 | PCM.RX.CS ---
Consult Pharmacy has been consulted to manage selected antiobiotic: Vancomycin Type of Consult: New start Labs: Sodium 142 mmol/L (136-145) 08/27/22 05:10 Potassium 3.2 mmol/L (3.5-5.1) L 08/27/22 05:10 Chloride 115 mmol/L (98-107) H 08/27/22 05:10 Carbon Dioxide 19.0 mmol/L (21.0-32.0) L 08/27/22 05:10 Anion Gap 8 (5-15) 08/27/22 05:10 BUN 20 mg/dL (7-18) H 08/27/22 05:10 Creatinine 1.61 mg/dL (0.55-1.02) H 08/27/22 05:10 Est GFR (MDRD) Af Amer 40 mL/min (>60) L 08/27/22 05:10 Est GFR (MDRD) Non-Af 33 mL/min (>60) L 08/27/22 05:10 BUN/Creatinine Ratio 12.4 RATIO (10-20) 08/27/22 05:10 Glucose 113 mg/dL (74-106) H 08/27/22 05:10 Microbiology: Microbiology 08/27/22 00:45 Stool Enteric Bacteriology - Final 08/27/22 00:45 Stool C. difficile DNA Amplification - Final Goal Trough: 15-20 mcg/mL Pharmacy Plan for Drug Dosing: Pharmacy Service will continue to monitor and adjust dosing as required. CRCL < 20. FIRST DOSE GIVEN IN ER. DRAW RANDOM LEVEL 08/28 @ 0600 Follow-Up Labs: Trough Vancomycin Labs to be done on [date and time ordered]: RANDOM 08/28 @ 0600
--- NOTE | 2022-08-27 06:52 | US_ITS ---
STUDY: RENAL ULTRASOUND - COMPLETE REASON FOR EXAM: Female, 77 years old. Sepsis from UTI TECHNIQUE: Ultrasound evaluation of the kidneys was performed with real-time and static munoz-scale imaging. COMPARISON: CT scan of the abdomen and pelvis of 08/08/2022. FINDINGS: RIGHT KIDNEY: Normal location of the right kidney, which is normal in size. The right kidney measures 10.7 x 5.6 x 5.2 cm. There is a normal cortex of the right kidney. The renal cortex measures 1.1 cm. There is no right renal mass or cyst. There is a 10 mm stone in the midpole of the right kidney. There is another 5 mm stone in the lower pole. There is no right hydronephrosis. DISTAL RIGHT URETER: There is non-visualization of the distal right ureter. There is no demonstrated right ureterovesical junction calculus. There is no demonstrated right ureteral jet. LEFT KIDNEY: Normal location of the left kidney, which is normal in size. The left kidney measures 11.1 x 4.9 x 5.7 cm. There is a normal cortex of the left kidney. The renal cortex measures 1.9 cm. There is no left renal mass or cyst. There is a 5 mm stone in the mid lower pole of the left kidney. There is mild hydronephrosis of the left kidney markedly improved since the previous exam. DISTAL LEFT URETER: There is non-visualization of the distal left ureter. There is no demonstrated left ureterovesical junction calculus. There is no demonstrated left ureteral jet. BLADDER: There is a DOAN catheter in the bladder. The bladder is not well seen. US/Kidney and Bladder IMPRESSION: 1. Residual mild left hydronephrosis markedly improved since previous exam. 2. Bilateral nonobstructing renal stones. Electronically Signed: Chuckie Crowder MD at 8:34 EDT ,
[2022-08-27] MEDS: Citalopram 40 MG TABLET PO (09:33)
[2022-08-27] MEDS: Enoxaparin 30 MG/0.3 ML Syringe SC (09:33)
[2022-08-27] MEDS: Cholecalciferol (VIT D3) 25 MCG TABLET (1,000 UNITS) PO (09:33)
[2022-08-27] MEDS: buPROPion (XL) 150 MG TABLET.XL PO (09:33)
--- NOTE | 2022-08-27 11:54 | CASEMGMT ---
RICHARD ALBRIGHT assessment: Face to Face with patient for initial transition planning/care coordination assessment. RICHARD ALBRIGHT introduced self and role at [facility], pt voices understanding and consents to assessment. Pt is sitting up in bed in no distress on room air. Pt is A/Ox4 and answers all questions appropriately. Pt's daughter, Coco, is at bedside during assessment.? Care providers, pharmacy,?and demographics verified. ? Presentation: Pt had kidney stone surgery but no stones removed, then c/o weakness-hx crohn's and colostomy Admitting dx: Sepsis PCP: Jorge Luis Specialists: Prince uro; Tom pulm; Friend, GI; Saurabh nephro Pref[facility]acy[facility] Insurance: [employer] A/B, Walk Score Prescription Benefit:? Yes Living Will/HPOA: Pt has LW/HPOA and is aware that they are on file at [facility]. Pt's daughter, Jessica Johnson, is HPOA. LNOK: Jessica Johnson, daughter/HPOA; Coco Mondragon, daughter Living Arrangements: Pt lives alone in 1 story duplex with 2 steps in and states no concerns at home. Pt is independent with ADL's. Transportation: Pt's family drives and states no transportation concerns. DME/HHC: Pt has the following DME: rollator, raised toilet seat, shower chair, and ostomy supplies from [facility]. Pt states no need for any further DME. Pt has had [facility] and a [facility] in past but has not been to SNF. Pt has also had OP therapy in past. Pt declines need for any further therapy at discharge. Pt states no concerns with going home at time of discharge. Pt is retired. Pt does not smoke cigarettes or drink ETOH. Pt states no further concerns/needs. CM to follow for home oxygen need and any further discharge planning/needs. Advised pt to ask for CM if any further questions/concerns/needs arise, voices understanding. Pt Goal: Home ? Plan[place] RICHARD ALBRIGHT
--- NOTE | 2022-08-27 13:03 | PN.HOSP_ITS ---
Subjective Subjective Patient states she is feeling much better since admission. Blood pressure still somewhat tenuous and she is on Levophed currently at 2, however we have been able to wean. Objective Data Objective Data Vital Signs: Vital Signs Temp Pulse Resp BP Pulse Ox O2 Del Method O2 Flow Rate 100.1 F H 86 24 H 88/57 L 99 Room Air 2 08/27/22 12:00 08/27/22 12:00 08/27/22 12:00 08/27/22 12:00 08/27/22 12:00 08/27/22 12:00 08/27/22 08:00 Oxygen Flow Rate (L/min) 2 Oxygen Delivery Method Room Air Weight: 55.5 kg Body Mass Index (BMI) 23.1 Intake & Output: Intake and Output for Last 24 Hours 08/25/22 08/26/22 08/27/22 23:59 23:59 23:59 Intake Total 1286.5 / 1286.5 2973.75 / 2973.75 Output Total 2575 / 2575 Balance 1286.5 / 1286.5 398.75 / 398.75 Lab / Micro Data Result Diagrams: 08/27/22 05:10 08/27/22 05:10 Labs: Laboratory Results - last 24 hr 08/26/22 20:55: WBC 27.8 H, RBC 4.32, Hgb 12.2, Hct 38.7, MCV 89.6, MCH 28.2, MCHC 31.5 L, RDW Std Deviation 45.6 H, RDW Coeff of Osmar 13.9, Plt Count 226, MPV 9.1, Immature Gran % (Auto) 2.800 H, Neut % (Auto) 83.4 H, Lymph % (Auto) 7.1 L, [place] % (Auto) 6.5, Eos % (Auto) 0.0, Baso % (Auto) 0.2, Absolute Neuts (auto) 23.2 H, Absolute Lymphs (auto) 1.97, Nucleated RBC % 0, Differential Comment SCANNED, Diff Path Review March08/26/22 20:55: PT 17.1 H, INR 1.4, APTT 39.0 H 08/26/22 20:55: Sodium 137, Potassium 3.5, Chloride 107, Carbon Dioxide 18.0 L, Anion Gap 12, BUN 22 H, Creatinine 2.20 H, Estim Creat Clear Calc 16.16, Est GFR (MDRD) Af Amer 28 L, Est GFR (MDRD) Non-Af 23 L, BUN/Creatinine Ratio 10.0, Glucose 125 H, Calcium 8.8, Total Bilirubin 1.00, AST 11 L, ALT 11 L, Alkaline Phosphatase 95, Total Protein 6.9, Albumin 2.8 L, Globulin 4.1, Albumin/Globulin Ratio 0.7 L 08/26/22 20:55: Lactic Acid 3.8 H* 08/26/22 21:55: Urine Color Yellow, Urine Clarity Turbid, Urine pH 5.0, Ur Specific [place] 1.015, Urine Protein 500 H, Urine Glucose (UA) Normal, Urine Ketones Negative, Urine Occult Blood 250 H, Urine Nitrite Positive H, Urine Bilirubin Negative, Urine Urobilinogen Normal, Ur Leukocyte Esterase 500 H, Urine RBC 10-25 SEEN, Urine WBC >100 SEEN, Ur Squamous Epith Cells 5-10 SEEN, Urine Bacteria 2+, Urine Mucus 0 SEEN 08/27/22 01:50: Lactic Acid 1.3 08/27/22 05:10: WBC 21.3 H, RBC 3.53 L, Hgb 10.0 L, Hct 32.0 L, MCV 90.7, MCH 28.3, MCHC 31.3 L, RDW Std Deviation 47.2 H, RDW Coeff of Osmar 14.2, Plt Count 195, MPV 9.1, Immature Gran % (Auto) 2.000 H, Neut % (Auto) 86.3 H, Lymph % (Auto) 5.8 L, [place] % (Auto) 5.5, Eos % (Auto) 0.3, Baso % (Auto) 0.1, Absolute Neuts (auto) 18.4 H, Absolute Lymphs (auto) 1.23, Nucleated RBC % 0 08/27/22 05:10: Sodium 142, Potassium 3.2 L, Chloride 115 H, Carbon Dioxide 19.0 L, Anion Gap 8, BUN 20 H, Creatinine 1.61 H, Estim Creat Clear Calc 22.08, Est GFR (MDRD) Af Amer 40 L, Est GFR (MDRD) Non-Af 33 L, BUN/Creatinine Ratio 12.4, Glucose 113 H, Calcium 7.2 L Micro: Microbiology 08/26/22 22:00 Blood Culture (Wb) - Right Forearm Blood Culture - Preli minary 08/27/22 00:45 Stool Enteric Bacteriology - Final 08/27/22 00:45 Stool C. difficile DNA Amplification - Final Radiography Diagnostic Testing: Radiology Impression Chest X-Ray 08/26/22 21:12 IMPRESSION: Normal x-ray examination of the chest. Electronically Signed: Trav Paulson MD at 21:38 EDT , Chest X-Ray 08/26/22 23:23 IMPRESSION: 1. Interval placement of right internal jugular deep venous line with tip the catheter overlying the spur vena cava and no pneumothorax. 2. No active pulmonary disease. Electronically Signed: Trav Paulson MD at 23:52 EDT , Renal Ultrasound 08/27/22 06:52 IMPRESSION: 1. Residual mild left hydronephrosis markedly improved since previous exam. 2. Bilateral nonobstructing renal stones. Electronically Signed: Chuckie Crowder MD at 8:34 EDT , Physical Exam Const alert, oriented x3, no apparent distress and well nourished Constitutional Narrative: Older white female lying in bed watching television, appears comfortable nontoxic, very pleasant, appears somewhat tired HEENT head/scalp atraumatic, moist oral mucous membranes and oropharynx normal HEENT Narrative: Dentition is fair, Mallampati is 2, no thrush Head and Scalp: normocephalic Resp normal respiratory effort, no retractions, no use of accessory muscles and clear to auscultation bilaterally Resp Narrative: Diffusely diminished but clear Auscultation: Negative for crackles, rales, rhonchi or wheezes Cardio regular rate, regular rhythm, S1 normal heart sound, S2 normal heart sound, no murmurs, no rub, no gallops and no clicks GI normal to inspection, nondistended, normoactive bowel sounds, soft to palpation and non-tender; Negative for hepatosplenomegaly Extremity no clubbing, cyanosis or edema Extremity Narrative: 2+ pedal pulses Neuro oriented x3, moves all extremities and no focal motor deficits Speech: speech normal Psych affect normal Psych Narrative: A pleasant and appropriately interactive Assessment & Plan Assessment/Plan (1) Septic shock: (2) Complicated urinary tract infection: (3) TOMÁS (acute kidney injury): (4) Acidosis, lactic: (5) Leukocytosis: (6) Anemia: (7) Hypokalemia: PLAN: Plan Septic shock secondary to complicated urinary tract infection -Highly suspect bacteremia -On 08/25/2022 patient underwent cystoscopy with left ureteral stent removal/exchange -Procedure was uncomplicated however I suspect that this may seeded bacteria -Continue pressors with Levophed--> currently on 2 mics -Wean as able to maintain MAP greater than 65 -If unable to wean Levophed may check serum cortisol and consider relative adrenal insufficiency -Maintain broad-spectrum antibiotics -Check retroperitoneal ultrasound -Leukocytosis is improving -All cultures are pending -CCM/pulmonary medicine following-appreciate input TOMÁS on CKD stage IIIb -Baseline serum creatinine appears to be 1.1-1.3 -Serum creatinine admission was 2.20 -Serum creatinine down to 1.61 -Continue to avoid nephrotoxins -Anticipate return to baseline -Continue home sodium bicarbonate -Repeat BMP in a.m. Hypokalemia -Potassium 40 mill equivalents p.o. -Repeat lab in a.m. -Check a.m. magnesium level Lactic acidosis -Resolving Leukocytosis -Secondary to the above -Trending down Hypothyroid -continue home levothyroxine COPD/history of lung cancer -Status post left upper lobe pneumonectomy -Stable -As needed aerosols History of rectal CA -Remote -No current issues Depression -Continue home Avapro -Continue home bupropion History of tobacco abuse -Encourage cessation -Continue home bupropion DVT prophylaxis -Start heparin subcu twice daily -SCDs CODE STATUS -Full code Charges/Coding Visit Charges Inpatient E&M: 71411 Subs Hosp L2
[2022-08-27] MEDS: Ipratropium/Albuterol Sulfate 3 ML AMPUL.NEB INHALATION ×2 (13:22→19:12)
[2022-08-27] MEDS: Potassium Chloride Oral Tablet 20 MEQ 40 MEQ PO (14:39)
--- NOTE | 2022-08-27 20:30 | NURSING ---
Pt informed of MD refusing to shorten Tylenol interval to q4h; informed of ice pack/cooling blanket order and pt refused stating, I don't like being cold. That will hurt my skin. I don't understand, the Tylenol works. Educated pt that ice and cooling blanket would not be directly on her skin and she cont to refuse either application.
[2022-08-28] VITALS (34 sets, daily range): BP systolic 95–127; BP diastolic 54–77; PULSE 62–91; RESP 14–26; TEMP 37.2–38.3; O2SAT 91–100
[2022-08-28] MEDS: 0.9% Normal Saline 1,000 ML 75 ML IV (00:58)
[2022-08-28] MEDS: Acetaminophen 325 MG Tablet 650 MG PO ×4 (02:50→20:42)
[2022-08-28] MEDS: 0.9% Saline Lock 10 ML Syringe IV ×2 (05:15→09:09)
[2022-08-28] MEDS: Levothyroxine 75 MCG Tablet PO (05:16)
[2022-08-28] MEDS: Sodium Bicarbonate 650 MG Tablet PO ×3 (05:16→21:31)
[2022-08-28 05:28] LABS: Absolute Lymphocyte Count 0.92 X10^3/uL (0.83-4.51); Absolute Neutrophil Count 8.1 X10^3/uL (2.0-7.7); Basophil# 0.01 X10^3/uL; Basophil% 0.1 % (0-1); Eosinophil# 0.21 X10^3/uL; Eosinophils% 2.1 % (0-5); Hematocrit 29.9 % (37-47); Hemoglobin 9.2 g/dL (12.0-15.0); Lymphocyte # 0.92 X10^3/ul (0.83-4.51); Lymphocyte % 9.2 % (19-41); Mean Corp Hgb Conc 30.8 g/dL (32-36); Mean Corpuscular Volume 91.2 fL (81-99); Mean Platelet Vol. 9.5 fl (6.2-12.0); Monocyte# 0.64 X10^3/uL; Monocyte% 6.4 % (0-10); NRBC Flagged by Analyzer 0 % (0-5); Neutrophil # 8.11 X10^3/uL (2.7-7.7); Neutrophil % 80.9 % (47-70); Platelet Count 150 K/mm3 (150-450); RBC Distribution Width CV 14.3 % (11.6-14.6); Red Blood Count 3.28 M/mm3 (4.2-5.4)
--- NOTE | 2022-08-28 05:46 | PN.CC_ITS ---
Assessment & Plan Assessment/Plan (1) Septic shock: PLAN: Plan RECOMMENDATIONS: 1. Continue empiric antimicrobials. 2. Continue scheduled bronchodilators. 3. Supplemental oxygen, if needed, to maintain saturations at or above 90%. 4. Encourage incentive spirometer use and mobilize patient as tolerated. 5. Aggressive electrolyte repletion. IMPRESSIONS: 1. Gram-negative septic shock The patient presented to the hospital with sepsis due to probable complicated cystitis following recent ureteral stent removal with secondary hematogenous spread, with acute sepsis related organ dysfunction as evidenced by acute kidney injury and fluid refractory hypotension, requiring the initiation of vasopressor support. The patient has improved from a hemodynamic perspective and is no longer requiring vasopressor support. Plan to continue antimicrobials as ordered. Blood cultures were positive for gram-negative rods. The patient has demonstrated growth of Pseudomonas and Enterococcus from prior urine cultures. 2. Acute on chronic kidney disease Improving. Most likely prerenal in etiology and related to her presenting septic shock. The patient did receive supplemental IV fluid hydration. Antic ipate further improvement in renal function with stabilization of hemodynamics. Continue to monitor urine output. No current indication for renal replacement therapy. 3. 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 4. Hypokalemia/hypomagnesemia Aggressive electrolyte repletion as ordered. Recheck levels in the morning. 5. Hypothyroidism/depression/anxiety Complicates care, management, recovery and prognosis. Continue home medications as indicated. This note was generated with [place] [employer] dictation software. It may contain incorrect words, spelling, and punctuation that were not noted in checking the note before signing. Subjective Subjective The patient was seen and examined at the bedside this morning. Events from the last 24 hours have been reviewed. The patient is currently febrile with a temperature of 101 ?F. Nevertheless, the patient was able to be weaned off of Levophed overnight. She is currently documented to be overall net +1.2 L for the hospitalization. Her leukocytosis has improved. The patient has had a significant amount of output from her ostomy. However, C. difficile and enteric panel were both negative. Potassium is low this morning at 3.1 with a magnesium of 1.5. Creatinine has improved to 1.28. Objective Data Objective Data The patient's most recent lab work, culture data and imaging studies have all be en personally reviewed. Renal ultrasound demonstrated mild residual left-sided hydronephrosis with bilateral nonobstructing renal stones. Preliminary blood culture dated August 26 was positive for gram-negative rods. Vital Signs: Vital Signs Temp Pulse Resp BP Pulse Ox O2 Del Method O2 Flow Rate 101 F H 83 21 H 106/59 L 95 Room Air 2 08/28/22 03:00 08/28/22 03:30 08/28/22 03:00 08/28/22 03:00 08/28/22 03:00 08/28/22 03:00 08/27/22 08:00 Oxygen Flow Rate (L/min) 2 Oxygen Delivery Method Room Air Weight: 127 lb 14.4 oz Body Mass Index (BMI) 23.1 Intake & Output: Intake and Output for Last 24 Hours 08/26/22 08/27/22 08/28/22 23:59 23:59 23:59 Intake Total 1286.5 / 1286.5 4531.30 / 4533.20 1480.05 / 1480.05 Output Total 5075 / 5075 1025 / 1025 Balance 1286.5 / 1286.5 -543.70 / -541.80 455.05 / 455.05 Lab / Micro Data Attestation: I reviewed the patient's lab results. Result Diagrams: 08/28/22 05:20 08/28/22 05:20 Labs: Laboratory Results - last 24 hr 08/27/22 05:10: Sodium 142, Potassium 3.2 L, Chloride 115 H, Carbon Dioxide 19.0 L, Anion Gap 8, BUN 20 H, Creatinine 1.61 H, Estim Creat Clear Calc 22.08, Est GFR (MDRD) Af Amer 40 L, Est GFR (MDRD) Non-Af 33 L, BUN/Creatinine Ratio 12.4, Glucose 113 H, Calcium 7.2 L 08/28/22 05:20: WBC 10.0, RBC 3.28 L, Hgb 9.2 L, Hct 29.9 L, MCV 91.2, MCH 28.0, MCHC 30.8 L, RDW Std Deviation 48.0 H, RDW Coeff of Osmar 14.3, Plt Count 150, MPV 9.5, Immature Gran % (Auto) 1.300 H, Neut % (Auto) 80.9 H, Lymph % (Auto) 9.2 L, [place] % (Auto) 6.4, Eos % (Auto) 2.1, Baso % (Auto) 0.1, Absolute Neuts (auto) 8.1 H, Absolute Lymphs (auto) 0.92, Nucleated RBC % 0 Micro: Microbiology 08/26/22 22:00 Blood Culture (Wb) - Right Forearm Blood Culture - Preliminary 08/27/22 00:45 Stool Enteric Bacteriology - Final 08/27/22 00:45 Stool C. difficile DNA Amplification - Final Radiography Diagnostic Testing: Radiology Impression Renal Ultrasound 08/27/22 06:52 IMPRESSION: 1. Residual mild left hydronephrosis markedly improved since previous exam. 2. Bilateral nonobstructing renal stones. Electronically Signed: Chuckie Crowder MD at 8:34 EDT , Physical Exam Const alert and no apparent distress General Appearance: cooperative HEENT normocephalic and head/scalp atraumatic Eyes PERRL, EOMs intact bilaterally and conjunctivae normal Neck supple General: trachea midline and CVC in place Chest inspection of chest normal Resp normal respiratory effort Auscultation: Negative for rales, rhonchi or wheezes Cardio regular rate and regular rhythm GI soft to palpation and non-tender Inspection: ostomy present Extremity no clubbing, cyanosis or edema Skin no rashes or lesions noted Neuro oriented x3, CN's II-XII intact bilaterally, moves all extremities and no focal motor deficits Psych cooperative and affect normal Charges/Coding Visit Charges Inpatient E&M: 12367 Subs Hosp L3
[2022-08-28 05:53] LABS: Anion Gap 7 (5-15); BUN 16 mg/dL (7-18); BUN/Creat Ratio 12.5 RATIO (10-20); Calcium,Total 7.2 mg/dL (8.5-10.1); Chloride 116 mmol/L (98-107); Creatinine, Serum 1.28 mg/dL (0.55-1.02); EST Glomerular Filtration Rate 43 mL/min (>60); Est Glom Filt Rate - Afr Amer 52 mL/min (>60); Estimated Creatinine Clearance 27.77 ml/min; Glucose 85 mg/dL (74-106); Magnesium 1.5 mg/dL (1.6-2.6); Phosphorus 2.5 mg/dL (2.5-4.9); Potassium 3.1 mmol/L (3.5-5.1); Sodium Level 141 mmol/L (136-145)
[2022-08-28 05:54] LABS: Vancomycin, Random Level 11.6 ug/mL (0.0-15.0)
[2022-08-28] MEDS: Potassium Chloride 20mEq/100mL 20 MEQ/100 ML IV.SOLN. 50 MEQ IV BOLUS ×2 (06:51→08:53)
[2022-08-28] MEDS: Magnesium Sulfate 4gm/100mL 4 GM/100 ML IV.SOLN. IV (06:51)
[2022-08-28] MEDS: Potassium Chloride Oral Tablet 20 MEQ 40 MEQ PO (06:56)
[2022-08-28] MEDS: Ipratropium/Albuterol Sulfate 3 ML AMPUL.NEB INHALATION ×3 (07:02→18:47)
[2022-08-28] MEDS: Citalopram 40 MG TABLET PO (09:05)
[2022-08-28] MEDS: buPROPion (XL) 150 MG TABLET.XL PO (09:06)
[2022-08-28] MEDS: Enoxaparin 30 MG/0.3 ML Syringe SC (09:06)
[2022-08-28] MEDS: Cholecalciferol (VIT D3) 25 MCG TABLET (1,000 UNITS) PO (09:06)
--- NOTE | 2022-08-28 11:43 | PN.HOSP_ITS ---
Subjective Subjective Patient reports she is feeling blah today. States she is having a little bit of upset stomach after taking her oral potassium. Overall is tired. Levophed was weaned overnight and now is off. Still with intermittent fevers and T-max of 101 overnight. Objective Data Objective Data Vital Signs: Vital Signs Temp Pulse Resp BP Pulse Ox O2 Del Method O2 Flow Rate 99.7 F H 81 20 H 119/69 95 Room Air 2 08/28/22 11:00 08/28/22 11:06 08/28/22 11:00 08/28/22 11:00 08/28/22 11:00 08/28/22 11:00 08/27/22 08:00 Oxygen Flow Rate (L/min) 2 Oxygen Delivery Method Room Air Weight: 58.014 kg Body Mass Index (BMI) 23.1 Intake & Output: Intake and Output for Last 24 Hours 08/26/22 08/27/22 08/28/22 23:59 23:59 23:59 Intake Total 1286.5 / 1286.5 4531.30 / 4533.20 3097.55 / 3097.55 Output Total 5075 / 5075 2475 / 2475 Balance 1286.5 / 1286.5 -543.70 / -541.80 622.55 / 622.55 Lab / Micro Data Result Diagrams: 08/28/22 05:20 08/28/22 05:20 Labs: Laboratory Results - last 24 hr 08/28/22 05:20: Random Vancomycin 11.6 08/28/22 05:20: WBC 10.0, RBC 3.28 L, Hgb 9.2 L, Hct 29.9 L, MCV 91.2, MCH 28.0, MCHC 30.8 L, RDW Std Deviation 48.0 H, RDW Coeff of Osmar 14.3, Plt Count 150, MPV 9.5, Immature Gran % (Auto) 1.300 H, Neut % (Auto) 80.9 H, Lymph % (Auto) 9.2 L, [place] % (Auto) 6.4, Eos % (Auto) 2.1, Baso % (Auto) 0.1, Absolute Neuts (auto) 8.1 H, Absolute Lymphs (auto) 0.92, Nucleated RBC % 0 08/28/22 05:20: Sodium 141, Potassium 3.1 L, Chloride 116 H, Carbon Dioxide 18.0 L, Anion Gap 7, BUN 16, Creatinine 1.28 H, Estim Creat Clear Calc 27.77, Est GFR (MDRD) Af Amer 52 L, Est GFR (MDRD) Non-Af 43 L, BUN/Creatinine Ratio 12.5, Glucose 85, Calcium 7.2 L, Phosphorus 2.5, Magnesium 1.5 L Micro: Microbiology 08/26/22 21:55 Urine, Clean Catch Urine Culture - Preliminary GNR Poss Pseudomonas sp GNR lactose commercial lines account executive 08/26/22 22:00 Blood Culture (Wb) - Right Forearm Blood Culture - Preliminary GNR lactose commercial lines account executive 08/27/22 00:45 Stool Enteric Bacteriology - Final 08/27/22 00:45 Stool C. difficile DNA Amplification - Final Physical Exam Const alert, oriented x3, no apparent distress and well nourished Constitutional Narrative: Older white female lying in resting, appears comfortable nontoxic, very pleasant, appears more fatigued today than yesterday HEENT head/scalp atraumatic, moist oral mucous membranes and oropharynx normal Head and Scalp: normocephalic Resp normal respiratory effort, no retractions, no use of accessory muscles and clear to auscultation bilaterally Resp Narrative: Diffusely diminished but clear Auscultation: Negative for crackles, rales, rhonchi or wheezes Cardio regular rate, regular rhythm, S1 normal heart sound, S2 normal heart sound, no murmurs, no rub, no gallops and no clicks GI normal to inspection, nondistended, normoactive bowel sounds, soft to palpation and non-tender; Negative for hepatosplenomegaly Extremity no clubbing, cyanosis or edema Extremity Narrative: 2+ pedal pulses Neuro oriented x3, moves all extremities and no focal motor deficits Speech: speech normal Psych Psych Narrative: Affect is flat today mood seems to be somewhat depressed Assessment & Plan Assessment/Plan (1) Septic shock: (2) Complicated urinary tract infection: (3) TOMÁS (acute kidney injury): (4) Acidosis, lactic: (5) Leukocytosis: (6) Anemia: (7) Hypokalemia: (8) Hypomagnesemia: (9) Gram-negative bacteremia: PLAN: Plan Septic shock secondary to gram-negative bacteremia secondary to complicated urinary tract infection -Highly suspect bacteremia -On 08/25/2022 patient underwent cystoscopy with left ureteral stent removal/exchange -Procedure was uncomplicated however I suspect that this may seeded bacteria -Shock has resolved this patient is now off Levophed -Continue to maintain maps greater than 65 -Continue meropenem but will discontinue vancomycin as current culture results are showing gram-negative rods -Retroperitoneal ultrasound shows residual mild left hydro that is markedly improved since previous exam and bilateral nonobstructing renal stones -Leukocytosis has resolved -We will consult ID since the patient has what appears to be more than 1 microbe and has ongoing issues with nephrolithiasis -CCM/pulmonary medicine following-appreciate input TOMÁS on CKD stage IIIb -Baseline serum creatinine appears to be 1.1-1.3 -Serum creatinine admission was 2.20 -Serum creatinine down to 1.28 which is her baseline and therefore TOMÁS has resolved -Continue to avoid nephrotoxins -Continue home sodium bicarbonate -Repeat BMP in a.m. Hypokalemia -Potassium 40 mill equivalents p.o. -Repeat lab in a.m. Hypomagnesemia -IV mag ordered -Recheck magnesium level in a.m. Leukocytosis -Normalized Hypothyroid -continue home levothyroxine COPD/history of lung cancer -Status post left upper lobe pneumonectomy -Stable -As needed aerosols History of rectal CA -Remote -No current issues Depression -Continue home Avapro -Continue home bupropion History of tobacco abuse -Encourage cessation -Continue home bupropion DVT prophylaxis -Start heparin subcu twice daily -SCDs CODE STATUS -Full code Charges/Coding Visit Charges Inpatient E&M: 93313 Subs Hosp L2
[2022-08-29] VITALS (17 sets, daily range): BP systolic 102–126; BP diastolic 56–76; PULSE 69–90; RESP 18–22; TEMP 36.8–37.9; O2SAT 92–98
[2022-08-29] MEDS: Acetaminophen 325 MG Tablet 650 MG PO (02:10)
[2022-08-29 04:30] LABS: Absolute Lymphocyte Count 0.92 X10^3/uL (0.83-4.51); Absolute Neutrophil Count 6.4 X10^3/uL (2.0-7.7); Basophil# 0.02 X10^3/uL; Basophil% 0.2 % (0-1); Eosinophils% 3.6 % (0-5); Hematocrit 31.5 % (37-47); Hemoglobin 9.7 g/dL (12.0-15.0); Lymphocyte # 0.92 X10^3/ul (0.83-4.51); Lymphocyte % 11.1 % (19-41); Mean Corp Hgb Conc 30.8 g/dL (32-36); Mean Corpuscular Volume 90.8 fL (81-99); Mean Platelet Vol. 9.2 fl (6.2-12.0); Monocyte# 0.63 X10^3/uL; Monocyte% 7.6 % (0-10); NRBC Flagged by Analyzer 0 % (0-5); Neutrophil # 6.37 X10^3/uL (2.7-7.7); Neutrophil % 76.5 % (47-70); Platelet Count 177 K/mm3 (150-450); RBC Distribution Width CV 14.4 % (11.6-14.6); RBC Distribution Width SD 48.5 fl (35.1-43.9); Red Blood Count 3.47 M/mm3 (4.2-5.4); White Blood Count 8.3 K/mm3 (4.4-11.0)
[2022-08-29 04:42] LABS: Magnesium 2.1 mg/dL (1.6-2.6)
[2022-08-29] MEDS: Sodium Bicarbonate 650 MG Tablet PO ×5 (06:14→22:00)
[2022-08-29] MEDS: Levothyroxine 75 MCG Tablet PO (06:15)
[2022-08-29 07:11] LABS: Anion Gap 9 (5-15); BUN 15 mg/dL (7-18); BUN/Creat Ratio 11.5 RATIO (10-20); Calcium,Total 7.9 mg/dL (8.5-10.1); Chloride 115 mmol/L (98-107); EST Glomerular Filtration Rate 42 mL/min (>60); Est Glom Filt Rate - Afr Amer 51 mL/min (>60); Estimated Creatinine Clearance 27.35 ml/min; Glucose 78 mg/dL (74-106); Potassium 4.1 mmol/L (3.5-5.1); Sodium Level 139 mmol/L (136-145)
[2022-08-29] MEDS: Ipratropium/Albuterol Sulfate 3 ML AMPUL.NEB INHALATION ×3 (07:27→19:18)
--- NOTE | 2022-08-29 08:49 | PN.CC_ITS ---
Assessment & Plan Assessment/Plan (1) Septic shock: PLAN: Plan RECOMMENDATIONS: 1. Consult ID for length of therapy given foreign bodies 2. Continue scheduled bronchodilators. 3. Walking oximetry prior to discharge 4. Encourage incentive spirometer use and mobilize patient as tolerated. 5. Aggressive electrolyte repletion. 6. Okay to leave the intensive care unit IMPRESSIONS: 1. Gram-negative septic shock The patient presented to the hospital with sepsis due to probable complicated cystitis following recent ureteral stent removal with secondary hematogenous spread, with acute sepsis related organ dysfunction as evidenced by acute kidney injury and fluid refractory hypotension, requiring the initiation of vasopressor support. The patient has improved from a hemodynamic perspective and is no longer requiring vasopressor support. Consult infectious disease for recommendations on antibiotics and length of therapy given history of stents. Blood cultures were positive for gram-negative rods testing Pseudomonas and Citrobacter. The patient has demonstrated growth of Pseudomonas and Enterococcus from prior urine cultures. 2. Acute on chronic kidney disease Improving. Most likely prerenal in etiology and related to her presenting septic shock. The patient did receive supplemental IV fluid hydration. Anticipate further improvement in renal function with stabilization of hemodynamics. Continue to monitor urine output. No current indication for renal replacement therapy. 3. 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 4. Hypokalemia/hypomagnesemia Aggressive electrolyte repletion as ordered. Recheck levels in the morning. 5. Hypothyroidism/depression/anxiety Complicates care, management, recovery and prognosis. Continue home medications as indicated. This note was generated with [employer] dictation software. It may contain incorrect words, spelling, and punctuation that were not noted in checking the note before signing. Subjective Subjective Patient did okay overnight. No acute issues were noted outside of a fever, for which patient remained hemodynamically stable. Patient is tolerating room air. Patient subjectively feels improved compared to yesterday. Objective Data Objective Data Vital Signs: Vital Signs Temp Pulse Resp BP Pulse Ox O2 Del Method O2 Flow Rate 37.4 C H 84 21 H 119/70 97 Room Air 2 08/29/22 07:52 08/29/22 07:52 08/29/22 07:52 08/29/22 07:52 08/29/22 07:52 08/29/22 08:00 08/27/22 08:00 Oxygen Flow Rate (L/min) 2 Oxygen Delivery Method Room Air Weight: 58.5 kg Body Mass Index (BMI) 23.1 Intake & Output: Intake and Output for Last 24 Hours 08/27/22 08/28/22 08/29/22 23:59 23:59 23:59 Intake Total 4531.30 / 4533.20 3947.55 / 3947.55 120 / 120 Output Total 5075 / 5075 4600 / 5750 3925 / 3925 Balance -543.70 / -541.80 -652.45 / -1802.45 -3805 / -3805 Lab / Micro Data Attestation: I reviewed the patient's lab results. Result Diagrams: 08/29/22 04:22 08/29/22 04:22 Labs: Laboratory Results - last 24 hr 08/29/22 04:22: WBC 8.3, RBC 3.47 L, Hgb 9.7 L, Hct 31.5 L, MCV 90.8, MCH 28.0, MCHC 30.8 L, RDW Std Deviation 48.5 H, RDW Coeff of Osmar 14.4, Plt Count 177, MPV 9.2, Immature Gran % (Auto) 1.000 H, Neut % (Auto) 76.5 H, Lymph % (Auto) 11.1 L , [place] % (Auto) 7.6, Eos % (Auto) 3.6, Baso % (Auto) 0.2, Absolute Neuts (auto) 6.4, Absolute Lymphs (auto) 0.92, Nucleated RBC % 0 08/29/22 04:22: Magnesium 2.1 08/29/22 04:22: Sodium 139, Potassium 4.1, Chloride 115 H, Carbon Dioxide 15.0 L , Anion Gap 9, BUN 15, Creatinine 1.30 H, Estim Creat Clear Calc 27.35, Est GFR (MDRD) Af Amer 51 L, Est GFR (MDRD) Non-Af 42 L, BUN/Creatinine Ratio 11.5, Glucose 78, Calcium 7.9 L Micro: Microbiology 08/26/22 22:00 Blood Culture (Wb) - Right Forearm Blood Culture - Preliminary Citrobacter amalonaticus 08/26/22 20:55 Blood Culture (Wb) - Left Forearm Blood Culture - Preliminary GNR Poss Pseudomonas sp 08/26/22 21:55 Urine, Clean Catch Urine Culture - Preliminary GNR Poss Pseudomonas sp GNR lactose arcade technician 08/27/22 00:45 Stool Enteric Bacteriology - Final 08/27/22 00:45 Stool C. difficile DNA Amplification - Final Physical Exam Const alert and no apparent distress General Appearance: cooperative HEENT normocephalic and head/scalp atraumatic Eyes PERRL, EOMs intact bilaterally and conjunctivae normal Neck supple Neck Narrative: Line is clean, dry and intact General: trachea midline and CVC in place Chest inspection of chest normal Resp normal respiratory effort Auscultation: Negative for rales, rhonchi or wheezes Cardio regular rate, regular rhythm, S1 normal heart sound, S2 normal heart sound, no murmurs, no rub and no gallops GI soft to palpation and non-tender Inspection: ostomy present Extremity no clubbing, cyanosis or edema Skin no rashes or lesions noted Neuro oriented x3, CN's II-XII intact bilaterally, moves all extremities and no focal motor deficits Psych cooperative and affect normal Charges/Coding Visit Charges Inpatient E&M: 52410 Subs Hosp L2
[2022-08-29] MEDS: Enoxaparin 30 MG/0.3 ML Syringe SC (09:10)
[2022-08-29] MEDS: buPROPion (XL) 150 MG TABLET.XL PO (09:10)
[2022-08-29] MEDS: Cholecalciferol (VIT D3) 25 MCG TABLET (1,000 UNITS) PO (09:10)
[2022-08-29] MEDS: Citalopram 40 MG TABLET PO (09:10)
[2022-08-29] MEDS: 0.9% Saline Lock 10 ML Syringe IV ×3 (09:52→21:50)
--- NOTE | 2022-08-29 11:32 | PN.HOSP_ITS ---
Subjective Subjective Patient states she is feeling much better today. Remains off pressors. Electrolytes have normalized. Objective Data Objective Data Vital Signs: Vital Signs Temp Pulse Resp BP Pulse Ox O2 Del Method O2 Flow Rate 98.4 F 90 18 118/72 98 Room Air 2 08/29/22 10:44 08/29/22 10:44 08/29/22 10:44 08/29/22 10:44 08/29/22 10:44 08/29/22 10:44 08/29/22 10:44 Oxygen Flow Rate (L/min) 2 Oxygen Delivery Method Room Air Weight: 58.5 kg Body Mass Index (BMI) 23.1 Intake & Output: Intake and Output for Last 24 Hours 08/27/22 08/28/22 08/29/22 23:59 23:59 23:59 Intake Total 4531.30 / 4533.20 3947.55 / 3947.55 120 / 120 Output Total 5075 / 5075 4600 / 5750 3925 / 3925 Balance -543.70 / -541.80 -652.45 / -1802.45 -3805 / -3805 Lab / Micro Data Result Diagrams: 08/29/22 04:22 08/29/22 04:22 Labs: Laboratory Results - last 24 hr 08/29/22 04:22: WBC 8.3, RBC 3.47 L, Hgb 9.7 L, Hct 31.5 L, MCV 90.8, MCH 28.0, MCHC 30.8 L, RDW Std Deviation 48.5 H, RDW Coeff of Osmar 14.4, Plt Count 177, MPV 9.2, Immature Gran % (Auto) 1.000 H, Neut % (Auto) 76.5 H, Lymph % (Auto) 11.1 L , [place] % (Auto) 7.6, Eos % (Auto) 3.6, Baso % (Auto) 0.2, Absolute Neuts (auto) 6.4, Absolute Lymphs (auto) 0.92, Nucleated RBC % 0 08/29/22 04:22: Magnesium 2.1 08/29/22 04:22: Sodium 139, Potassium 4.1, Chloride 115 H, Carbon Dioxide 15.0 L , Anion Gap 9, BUN 15, Creatinine 1.30 H, Estim Creat Clear Calc 27.35, Est GFR (MDRD) Af Amer 51 L, Est GFR (MDRD) Non-Af 42 L, BUN/Creatinine Ratio 11.5, Glucose 78, Calcium 7.9 L Micro: Microbiology 08/26/22 21:55 Urine, Clean Catch Urine Culture - Final Pseudomonas aeroginosa GNR lactose fabrication mig welder 08/26/22 22:00 Blood Culture (Wb) - Right Forearm Blood Culture - Pre liminary Citrobacter amalonaticus 08/26/22 20:55 Blood Culture (Wb) - Left Forearm Blood Culture - Preliminary GNR Poss Pseudomonas sp 08/27/22 00:45 Stool Enteric Bacteriology - Final 08/27/22 00:45 Stool C. difficile DNA Amplification - Final Physical Exam Const alert, oriented x3, no apparent distress and well nourished Constitutional Narrative: Older white female, sitting up in a chair at the bedside, eating breakfast,, ap pears comfortable nontoxic, patient appears much more perky today and less fatigued HEENT head/scalp atraumatic, moist oral mucous membranes and oropharynx normal HEENT Narrative: Dentures in place, Mallampati 2, no thrush Resp normal respiratory effort, no retractions, no use of accessory muscles and clear to auscultation bilaterally Resp Narrative: Diffusely diminished but clear Auscultation: Negative for crackles, rales, rhonchi or wheezes Cardio regular rate, regular rhythm, S1 normal heart sound, S2 normal heart sound, no murmurs, no rub, no gallops and no clicks GI normal to inspection, nondistended, normoactive bowel sounds, soft to palpation and non-tender; Negative for hepatosplenomegaly Extremity no clubbing, cyanosis or edema Extremity Narrative: 2+ pedal pulses Neuro oriented x3, moves all extremities and no focal motor deficits Speech: speech normal Psych affect normal Psych Narrative: Patient very appropriate and pleasant Assessment & Plan Assessment/Plan (1) Septic shock: (2) Complicated urinary tract infection: (3) TOMÁS (acute kidney injury): (4) Acidosis, lactic: (5) Leukocytosis: (6) Anemia: (7) Hypokalemia: (8) Hypomagnesemia: (9) Gram-negative bacteremia: PLAN: Plan Septic shock secondary to gram-negative bacteremia secondary to complicated urinary tract infection -Shock resolved and patient remains off pressors -On 08/25/2022 patient underwent cystoscopy with left ureteral stent removal/exchange -Procedure was uncomplicated however I suspect that this may seeded bacteria -Continue meropenem -Blood culture shows growth with Citrobacter amalonaticus in 1 bottle and Pseudomonas and the other -Urine culture with a gram-negative usha lactose fabrication mig welder that has yet to be identified and Pseudomonas aeruginosa -Retroperitoneal ultrasound shows residual mild left hydro that is markedly improved since previous exam and bilateral nonobstructing renal stones -ID consult placed -CCM/pulmonary medicine following-appreciate input TOMÁS on CKD stage IIIb -TOMÁS resolved -Baseline serum creatinine appears to be 1.1-1.3 -Serum creatinine admission was 2.20 -Serum creatinine stable at 1.3 -Continue to avoid nephrotoxins -Continue home sodium bicarbonate--> dose increased as bicarb is a bit low this morning -Repeat BMP in a.m. Hypokalemia -Resolved Hypomagnesemia -Resolved Hypothyroid -continue home levothyroxine COPD/history of lung cancer -Status post left upper lobe pneumonectomy -Stable -As needed aerosols History of rectal CA -Remote -No current issues Depression -Continue home Avapro -Continue home bupropion History of tobacco abuse -Encourage cessation -Continue home bupropion DVT prophylaxis -Continue enoxaparin -SCDs CODE STATUS -Full code Charges/Coding Visit Charges Inpatient E&M: 18319 Subs Hosp L2
[2022-08-29 11:40] LABS: Pathologist Review Reviewed
--- NOTE | 2022-08-29 14:33 | PCM.CONS.GEN ---
Assessment & Plan Assessment/Plan (1) Gram-negative bacteremia: PLAN: One bcx with pseudomonas, one with citrobacter. Ucx with PsA and GNR. Has tolerated cephalosporins in past. Ucx 08/08 with PsA, given cefpodoxime which does not have pseudomonal activity. Will order midline and one more week cefepime at discharge. Will follow, thank you HPI Consult Data Date of Consult: 08/29/22 HPI Narrative Reason for Consultation: GNR bacteremia HPI Narrative: JOSE DE JESUS GOLD, is a 77 F who presented 08/26 with one day h/o fever, rigors, fatigue, nausea. Had L ureteral stent placed earlier in August, ucx at that time with pseudomonas. Given cefpodoxime. Taken back 08/[address] Morrison for stent removal. Sx started, admitted here on meropenem. Feeling better, no abd pain, no dysuria. No further fever. Full ROS performed and neg except as noted above. 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 Lung cancer Nicotine abuse Osteoporosis Rectal cancer Rectal cancer 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 calculus Shortness of breath on exertion Stage 3b chronic kidney disease (CKD) Thyroid disease TIA (transient ischemic attack) TIA (transient ischemic attack) Urinary retention Walker as ambulation aid Wears dentures Wears hearing aid Home Medications bupropion HCl 150 mg 24 hr tablet, extended release (Wellbutrin XL) 150 mg PO QAM quit smoking 11/28/18 [History Last Taken 12/07/21 07:30] citalopram 40 mg tablet 40 mg PO DAILY Anxiety 04/24/19 [History Last Taken 12/07/21 07:30] cyanocobalamin (vitamin B-12) 1,000 mcg/mL injection solution 100 mcg IM Q30D 10/08/19 [History Last Taken 11/18/21] levothyroxine 100 mcg tablet 100 mcg PO DAILY@0600 07/29/21 [History Last Taken 08/25/22] cholecalciferol (vitamin D3) 25 mcg (1,000 unit) capsule (Vitamin D3) 25 mcg PO DAILY 10/09/21 [History Last Taken 11/18/21] sodium bicarbonate 650 mg tablet 650 mg PO TID 10/09/21 [History Last Taken 11/18/21] albuterol sulfate 90 mcg/actuation aerosol inhaler (Ventolin HFA) 2 puff inhalation Q4H PRN shortness of breath or wheezing #18 grams 03/31/22 [Rx Last Taken Unknown] ondansetron 4 mg disintegrating tablet 4 mg PO Q8H PRN nausea and vomiting #12 tabs 08/08/22 [Rx Last Taken Unknown] oxycodone 5 mg tablet 5 mg PO Q6H PRN pain 3 days #12 tabs 08/08/22 [Rx Last Taken Unknown] phenazopyridine 200 mg tablet (Pyridium) 200 mg PO TID PRN PRN Bladder Spasms 7 days #30 tabs 08/10/22 [Rx Last Taken Unknown] potassium chloride 20 mEq tablet,extended release 20 meq PO DAILY 08/18/22 [History Last Taken Unknown] cefepime 2 gram solution for injection 2 g IV Q24H 7 days #7 ea 08/29/22 [Rx Last Taken Unknown] Allergy/AdvReac Type Severity Reaction Status Date / Time ciprofloxacin [From Cipro] Allergy Rash Verified 08/26/22 20:42 ciprofloxacin HCl Allergy Rash Verified 08/26/22 20:42 [From Cipro] Penicillins Allergy Hives Verified 08/26/22 20:42 codeine AdvReac makes her Verified 08/26/22 20:42 feel weird magnesium citrate AdvReac Nausea Verified 08/26/22 20:42 NSAIDS (Non-Steroidal AdvReac kidney Verified 08/26/22 20:42 Anti-Inflamma damage r/t long-term usage advised not to use Family History Father Heart disease Mother Heart disease Sister Heart disease Diabetes Surgical History History of bowel resection History of delivery History of cholecystectomy History of colonoscopy (~10/2019) History of colostomy History of cystoscopy History of hysterectomy Social History household members: none Smoking Status: Former smoker Tobacco: How many years used: 53 how long ago did patient quit smoking: Quit 2-5 years prior. second hand exposure: No alcohol intake: never substance use type: does not use caffeine: No what type of physical activity do you participate in: none Physical Exam Const alert, oriented x3 and no apparent distress General Appearance: cooperative HEENT normocephalic and head/scalp atraumatic Eyes PERRL and EOMs intact bilaterally Neck supple and No nodes Resp normal air movement and clear to auscultation bilaterally Cardio regular rate and regular rhythm GI soft to palpation, non-tender and non-distended Extremity General Extremity: Negative for edema Skin no rashes or lesions noted Neuro CN's II-XII intact bilaterally Lab / Micro Data Attestation: I reviewed the patient's lab results. Result Diagrams: 08/29/22 04:22 08/29/22 04:22 Labs: Laboratory Results - last 24 hr 08/26/22 20:55: Diff Path Review Reviewed 08/29/22 04:22: WBC 8.3, RBC 3.47 L, Hgb 9.7 L, Hct 31.5 L, MCV 90.8, MCH 28.0, MCHC 30.8 L, RDW Std Deviation 48.5 H, RDW Coeff of Osmar 14.4, Plt Count 177, MPV 9.2, Immature Gran % (Auto) 1.000 H, Neut % (Auto) 76.5 H, Lymph % (Auto) 11.1 L, [place] % (Auto) 7.6, Eos % (Auto) 3.6, Baso % (Auto) 0.2, Absolute Neuts (auto) 6.4, Absolute Lymphs (auto) 0.92, Nucleated RBC % 0 08/29/22 04:22: Magnesium 2.1 08/29/22 04:22: Sodium 139, Potassium 4.1, Chloride 115 H, Carbon Dioxide 15.0 L, Anion Gap 9, BUN 15, Creatinine 1.30 H, Estim Creat Clear Calc 27.35, Est GFR (MDRD) Af Amer 51 L, Est GFR (MDRD) Non-Af 42 L, BUN/Creatinine Ratio 11.5, Glucose 78, Calcium 7.9 L Micro: Microbiology 08/26/22 21:55 Urine, Clean Catch Urine Culture - Final Pseudomonas aeroginosa GNR lactose paving stone installer 08/26/22 22:00 Blood Culture (Wb) - Right Forearm Blood Culture - Preliminary Citrobacter amalonaticus 08/26/22 20:55 Blood Culture (Wb) - Left Forearm Blood Culture - Preliminary GNR Poss Pseudomonas sp
--- NOTE | 2022-08-29 15:51 | CASEMGMT ---
Noted therapy notes recommending further therapy prior to returning home. Spoke with ID, pt to dc on IV atb. RN CM in to pt room, pt states she is aware she did not do well with therapy. Pt states she lives alone and cannot return back currently. She is agreeable to s/t therapy prior to dc home. Pt family in room and agrees with decision. Pt states she would like to go to [facility]. Pt aware that SW will be updated and can check availability and options for SNF. Updated SW at this time.
--- NOTE | 2022-08-29 16:14 | CASEMGMT ---
Social Work SW notified by therapy and RN Mirna ALBRIGHT that pt will need SNF. SW in to pt room to discuss d/c plan. SW introduced self and role at the hospital. Pt and family agreeable to discussing discharge plan. A printed list of SNF providers including quality and resource use data and consistent with the patient?s preferred geographic region, medical needs, and insurance network via the [employer] Guide Link. Pt requested daughter make choice of SNF. Daughter reported [facility] as first choice after being informed beds at TCU are full. SW sent referral to [facility] via [employer]. Plan: Await acceptance at [facility] [place]
[2022-08-30] VITALS (9 sets, daily range): BP systolic 98–118; BP diastolic 46–72; PULSE 77–88; RESP 16–20; TEMP 36.3–37.4; O2SAT 94–97
[2022-08-30] MEDS: Levothyroxine 75 MCG Tablet PO (04:25)
[2022-08-30 06:50] LABS: Anion Gap 4 (5-15); BUN 10 mg/dL (7-18); BUN/Creat Ratio 9.1 RATIO (10-20); Calcium,Total 8.5 mg/dL (8.5-10.1); Chloride 117 mmol/L (98-107); EST Glomerular Filtration Rate 51 mL/min (>60); Est Glom Filt Rate - Afr Amer 62 mL/min (>60); Estimated Creatinine Clearance 32.32 ml/min; Glucose 85 mg/dL (74-106); Potassium 4.2 mmol/L (3.5-5.1); Sodium Level 140 mmol/L (136-145)
[2022-08-30] MEDS: Ipratropium/Albuterol Sulfate 3 ML AMPUL.NEB INHALATION (06:52)
--- NOTE | 2022-08-30 07:44 | PCM.PN.INT ---
Assessment & Plan Assessment/Plan (1) Septic shock: PLAN: Plan RECOMMENDATIONS: 1. Appreciate ID recommendations 2. Okay to continue bronchodilator therapy 3. Walking oximetry prior to discharge 4. Encourage incentive spirometer use and mobilize patient as tolerated. 5. Okay to follow-up as an outpatient for pulmonary concerns 6. Hemodynamically stable on room air. Will sign off from a critical care perspective IMPRESSIONS: 1. Gram-negative septic shock The patient presented to the hospital with sepsis due to probable complicated cystitis following recent ureteral stent removal with secondary hematogenous spread, with acute sepsis related organ dysfunction as evidenced by acute kidney injury and fluid refractory hypotension, requiring the initiation of vasopressor support. The patient has improved from a hemodynamic perspective and is no longer requiring vasopressor support. Infectious disease is recommending 1 week of IV antibiotics given history of stents. Blood cultures were positive for gram-negative rods testing Pseudomonas and Citrobacter. The patient has demonstrated growth of Pseudomonas and Enterococcus from prior urine cultures. Patient is currently hemodynamically stable on room air. Will sign off from a critical care perspective 2. Acute on chronic kidney disease Improving. Most likely prerenal in etiology and related to her presenting septic shock. The patient did receive supplemental IV fluid hydration. Anticipate further improvement in renal function with stabilization of hemodynamics. Continue to monitor urine output. No current indication for renal replacement therapy. 3. 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 Patient could follow-up as an outpatient for pulmonary concerns if requested. This would not be urgent. 4. Hypokalemia/hypomagnesemia Aggressive electrolyte repletion as ordered. Recheck levels in the morning. 5. Hypothyroidism/depression/anxiety Complicates care, management, recovery and prognosis. Continue home medications as indicated. This note was generated with [employer] dictation software. It may contain incorrect words, spelling, and punctuation that were not noted in checking the note before signing. Subjective Subjective Patient transferred out of the intensive care unit yesterday. Patient feels subjectively improved compared to previous. Patient states she still feels relatively weak with walking around and has requested acute rehab to help with her strength as she lives alone. Patient is not having any urinary symptoms at this time. Patient is tolerating room air. Objective Data Objective Data Vital Signs: Vital Signs Temp Pulse Resp BP Pulse Ox O2 Del Method O2 Flow Rate 36.3 C L 85 20 H 118/69 97 Room Air 2 08/30/22 04:29 08/30/22 04:29 08/30/22 04:29 08/30/22 04:29 08/30/22 04:29 08/30/22 04:29 08/30/22 04:29 Oxygen Flow Rate (L/min) 2 Oxygen Delivery Method Room Air Weight: 56.2 kg Body Mass Index (BMI) 23.1 Intake & Output: Intake and Output for Last 24 Hours 08/28/22 08/29/22 08/30/22 23:59 23:59 23:59 Intake Total 3947.55 / 3947.55 1452.25 / 1452.25 Output Total 4600 / 5750 4475 / 4475 Balance -652.45 / -1802.45 -3022.75 / -3022.75 Lab / Micro Data Attestation: I reviewed the patient's lab results. Result Diagrams: 08/29/22 04:22 08/30/22 05:35 Labs: Laboratory Results - last 24 hr 08/26/22 20:55: Diff Path Review Reviewed 08/30/22 05:35: Sodium 140, Potassium 4.2, Chloride 117 H, Carbon Dioxide 19.0 L, Anion Gap 4 L, BUN 10, Creatinine 1.10 H, Estim Creat Clear Calc 32.32, Est GFR (MDRD) Af Amer 62, Est GFR (MDRD) Non-Af 51 L, BUN/Creatinine Ratio 9.1 L, Glucose 85, Calcium 8.5 Micro: Microbiology 08/26/22 21:55 Urine, Clean Catch Urine Culture - Final Pseudomonas aeroginosa GNR lactose hr receptionist 08/26/22 22:00 Blood Culture (Wb) - Right Forearm Blood Culture - Preliminary Citrobacter amalonaticus 08/26/22 20:55 Blood Culture (Wb) - Left Forearm Blood Culture - Preliminary GNR Poss Pseudomonas sp 08/27/22 00:45 Stool Enteric Bacteriology - Final 08/27/22 00:45 Stool C. difficile DNA Amplification - Final Physical Exam Const alert and no apparent distress General Appearance: cooperative HEENT normocephalic and head/scalp atraumatic Eyes PERRL, EOMs intact bilaterally and conjunctivae normal Neck supple Neck Narrative: Left midline is clean, dry and intact General: trachea midline Chest inspection of chest normal Resp normal respiratory effort Auscultation: Negative for rales, rhonchi or wheezes Cardio regular rate, regular rhythm, S1 normal heart sound, S2 normal heart sound, no murmurs, no rub and no gallops GI soft to palpation and non-tender Inspection: ostomy present Extremity no clubbing, cyanosis or edema Skin no rashes or lesions noted Neuro oriented x3, CN's II-XII intact bilaterally, moves all extremities and no focal motor deficits Psych cooperative and affect normal Charges/Coding Visit Charges Inpatient E&M: 17828 Subs Hosp L2
[2022-08-30] MEDS: Cholecalciferol (VIT D3) 25 MCG TABLET (1,000 UNITS) PO (08:54)
[2022-08-30] MEDS: buPROPion (XL) 150 MG TABLET.XL PO (08:54)
[2022-08-30] MEDS: Citalopram 40 MG TABLET PO (08:54)
[2022-08-30] MEDS: Enoxaparin 30 MG/0.3 ML Syringe SC (08:54)
[2022-08-30] MEDS: Sodium Bicarbonate 650 MG Tablet PO ×3 (08:54→17:12)
[2022-08-30] MEDS: 0.9% Saline Lock 10 ML Syringe IV (10:03)
--- NOTE | 2022-08-30 10:03 | PCM.PN.ID ---
Physical Exam Narrative Feeling much better, no fever, no abd pain Const alert and no apparent distress Resp normal air movement and clear to auscultation bilaterally Cardio regular rate and regular rhythm GI soft to palpation, non-tender and non-distended Skin no rashes or lesions noted ID ID: Route of nutrition/ use of supplements: [] Nutritional Intake: [] IV Site: [] Gallagher Catheter: [] Assessment & Plan Assessment/Plan (1) Gram-negative bacteremia: PLAN: One bcx with pseudomonas, one with citrobacter. Ucx with PsA and GNR. Has tolerated cephalosporins in past. Ucx / with PsA, given cefpodoxime which does not have pseudomonal activity. Much improved, cont cefepime, plan is for one more week cefepime at discharge. TOMÁS cont to improve, adjusted dose, re-wrote rx. Will follow, d/w continuous pillowcase cutter
--- NOTE | 2022-08-30 10:04 | CASEMGMT ---
Addendum entered by Milly Box 08/30/22 12:05: TRAN called Pt daughter, Jessica, to update of plan to go to TCU. Jessica voiced understanding and appreciation for update. Addendum entered by Milly Box 08/30/22 11:59: TRAN faxed discharge orders to TCU. Placed copies in pt chart and originals in envelope to go with pt upon discharge. Summer at TCU notified. Summer reported bed at TCU not available until after 2:30pm today. TRAN notified [facility] staff. Dispo: TCU, skilled level of care JOHNATHON [place] Original Note: Social work SW notified by Summer at TCU there will be a open bed at TCU today. TRAN updated pt and pt wants TCU, as it was first choice. Summer accepted pt for TCU. Pt's was updated. Pt to discharge to TCU today. Plan: TCU, skilled level of care JOHNATHON [place]
--- NOTE | 2022-08-30 11:13 | PCM.TXEXTCAR ---
Diet Diet Order/Speech Therapy: 08/27/22 00:28 Diet: Regular - General Food consistency:: Regular Liquid Consistency:: Regular/Thin Routine Orders/Code Status Suppository Frequency: Daily PRN O2 Frequency: PRN Keep PO Greater than or Equal to (%): 92 Routine Lab Work: CBC (Weekly) and BMP (Weekly) Code Status: Full Code Suggestions for Active Care Change Position every (hours): 2 Hours to sit in a chair: 2 Times a day to sit in chair: 3 Therapies Weight Bearing: Full weight bearing Physical Therapy: Eval and Treat Occupational Therapy: Eval and Treat Problem/Diagnosis (1) Gram-negative bacteremia: Status: Acute Code(s): R78.81 - Bacteremia Allergies/Procedures Done in Hospital Allergies ciprofloxacin [From Cipro] Allergy (Verified 08/26/22 20:42) Rash ciprofloxacin HCl [From Cipro] Allergy (Verified 08/26/22 20:42) Rash Penicillins Allergy (Verified 08/26/22 20:42) Hives codeine Adverse Reaction (Verified 08/26/22 20:42) makes her feel weird makes her feel weird magnesium citrate Adverse Reaction (Verified 08/26/22 20:42) Nausea NSAIDS (Non-Steroidal Anti-Inflamma Adverse Reaction (Verified 08/26/22 20:42) kidney damage r/t long-term usage advised not to use kidney damage r/t long-term usage advised not to use Procedures: - (Renal ultrasound) Type of Care/Length of Stay Estimated LOS: Convalescent Care Less Than 30 days Type of Care Needed: Skilled Rehab Potential: Good Prognosis: Good Additional Orders/Day of Discharge Day of Discharge: 08/30/22 Dietary and Speech Recommendations Dietitian Recommendations/Changes: continue regular diet as tolerated Discharge Plan Admission Admit Date/Time: 08/26/22 23:31 Attending Provider: Luba Wiley Primary Care Provider: Elliot Kang Chi Consulting Providers: Jeff Pappas ; Brandyn Johnson ; Mayco Santos Discharge Orders/Prescriptions Prescriptions: New cefepime 2 gram Recon Soln 2 g IV Q12H 7 Days Qty: 14 0RF Rx Instructions: dx: pseudomonas pyelonephritis weekly bmp and cbc. Fax to [phone] routine midline care per protocol Discontinued cephalexin [cephalexin] 500 mg capsule 500 mg PO Q12 2 Days Qty: 4 0RF cefpodoxime 200 mg tablet 200 mg PO BID Label Comments: TAKE 1 TABLET BY MOUTH TWICE DAILY WITH FOOD No Action bupropion HCl [Wellbutrin XL] 150 mg tablet extended release 24 hr 150 mg PO QAM albuterol sulfate [Ventolin HFA] 90 mcg/actuation HFA aerosol inhaler 2 puff INHALATION Q4H PRN (Reason: shortness of breath or wheezing) Qty: 18 6RF citalopram 40 MG tablet 40 mg PO DAILY levothyroxine 100 mcg tablet 100 mcg PO DAILY@0600 Label Comments: PT IS CURRENTLY ON 100 MCG SHE IS TAKING A 25 AND 75 MCG TO MAKE THE 100 MCG DAILY DOSE. cyanocobalamin (vitamin B-12) 1,000 MCG/ML solution 100 mcg IM Q30D sodium bicarbonate 650 mg tablet 650 mg PO TID cholecalciferol (vitamin D3) [Vitamin D3] 25 mcg (1,000 unit) Capsule 25 mcg PO DAILY oxycodone 5 mg tablet 5 mg PO Q6H PRN (Reason: pain) 3 Days Qty: 12 0RF ondansetron 4 mg tablet,disintegrating 4 mg PO Q8H PRN (Reason: nausea and vomiting) Qty: 12 0RF phenazopyridine [Pyridium] 200 mg tablet 200 mg PO TID PRN PRN (Reason: Bladder Spasms) 7 Days Qty: 30 0RF potassium chloride 20 mEq Tablet Extended Release 20 meq PO DAILY Referrals / Follow Up: Elliot Kang Chi, MD [Primary Care Provider] -
--- NOTE | 2022-08-30 11:14 | PCM.DC.SUM ---
Providers Date of Admission: 08/26/22 Date of Discharge: 08/30/22 Primary Care Physician: Dr. Elliot Kang MD Consultations 08/27/22 00:27 Consult: Trust Administrative Assistant / Pulmonary Medicine Routine Consulting Provider: Mayco Santos Reason for Consult: Sepsis EMERGENT Consult: No Notified: Yes Date Notified: 08/26/22 Time Notified: 23:43 Method of Notification: Text 08/29/22 08:28 Consult: Infectious Disease Routine Consulting Provider: Brandyn Johnson Reason for Consult: Course of therapy given stents EMERGENT Consult: No Notified: Yes Date Notified: 08/29/22 Time Notified: 08:28 Method of Notification: Text Reason For Visit: SEPSIS Diagnosis Discharge Diagnosis (1) Gram-negative bacteremia: Status: Acute Code(s): R78.81 - Bacteremia Medications at Discharge Home Medications bupropion HCl 150 mg 24 hr tablet, extended release (Wellbutrin XL) 150 mg PO QAM quit smoking 11/28/18 citalopram 40 mg tablet 40 mg PO DAILY Anxiety 04/24/19 cyanocobalamin (vitamin B-12) 1,000 mcg/mL injection solution 100 mcg IM Q30D 10/08/19 levothyroxine 100 mcg tablet 100 mcg PO DAILY@0600 07/29/21 cholecalciferol (vitamin D3) 25 mcg (1,000 unit) capsule (Vitamin D3) 25 mcg PO DAILY 10/09/21 sodium bicarbonate 650 mg tablet 650 mg PO TID 10/09/21 albuterol sulfate 90 mcg/actuation aerosol inhaler (Ventolin HFA) 2 puff inhalation Q4H PRN shortness of breath or wheezing #18 grams 03/31/22 ondansetron 4 mg disintegrating tablet 4 mg PO Q8H PRN nausea and vomiting #12 tabs 08/08/22 oxycodone 5 mg tablet 5 mg PO Q6H PRN pain 3 days #12 tabs 08/08/22 phenazopyridine 200 mg tablet (Pyridium) 200 mg PO TID PRN PRN Bladder Spasms 7 days #30 tabs 08/10/22 potassium chloride 20 mEq tablet,extended release 20 meq PO DAILY 08/18/22 acetaminophen 325 mg tablet (Tylenol) 650 mg PO Q4H PRN PRN Pain 1-10 Or Fever #0 tabs 08/30/22 cefepime 2 gram solution for injection 2 g IV Q12H 7 days #14 ea 08/30/22 Hospital Course Procedures EKG and - (Retroperitoneal ultrasound/chest x-ray) Summary of Care Provided Minutes Spent on Discharge: 38 Hospital Course: Mrs. Johnson is a 77-year-old white female who presented to the emergency department at [facility] on 08/30/2022 with a chief complaint of malaise and fatigue. On August 25 she underwent a cystoscopy with a left ureteral stent removal by Dr. Morrison. The procedure itself was overall uncomplicated and she was placed on post procedure antibiotics. She unfortunately developed the feeling of malaise about 24 hours prior to presentation. On presentation to the emergency department, the patient was noted to have a temperature of 96 ?F.? She was hypotensive and tachypneic.? Initial laboratory evaluation revealed an elevated white blood cell count to 28,000.? Chemistry profile was notable for a serum bicarbonate of 18 with a creatinine of 2.20.? Lactate was elevated at 3.8.? Urine analysis was notable for nitrites, leukocyte Estrace and 2+ urine bacteria.? The patient received a total of 3 units of supplemental IV fluids.? However, she remained hypotensive and required the initiation of vasopressor support.? A central venous catheter was placed.? The patient was subsequently admitted to the medical intensive care unit for further management. She was maintained on broad-spectrum antibiotics and cultures were obtained prior to admission. Her urine culture resulted positive for Pseudomonas aeruginosa. She also had blood culture positive for Citrobacter as well as Pseudomonas. Given her complicated urological issues and her polymicrobial infection infectious disease was consulted. Her serum creatinine improved dramatically and was 1.1 on the day of discharge. She was maintained on her home medications during her hospital course. She was finally able to be weaned off Levophed and stable with normal blood pressures. She had considerable electrolyte abnormalities with hypomagnesemia and hypokalemia of which were replaced and normalized on the day of discharge. ID recommended 7 more days of cefepime at discharge and a midline was placed for adenomyotic administration. She was seen by physical and Occupational Therapy and it was deemed appropriate that she have ongoing therapy at discharge prior to going home. She was accepted to the transitional care unit and discharged there on 08/30/2022 in stable condition. As noted she will continue antibiotics for another 7 days and have ongoing rehab. Discharge diagnoses: Septic shock Polymicrobial bacteremia (Citrobacter/Pseudomonas) Pseudomonal urinary tract infection History of hydronephrosis status post renal stent removal TOMÁS on CKD stage IIIb-TOMÁS resolved Hypokalemia-resolved Hypomagnesemia-resolved Hypothyroidism COPD History of lung cancer-stable History of rectal CA-stable Depression History of tobacco abuse Physical Exam Const alert, oriented x3, no apparent distress, healthy appearing and well nourished Constitutional Narrative: Older white female, sitting up in a chair at the bedside, watching television, appears comfortable nontoxic, patient appears well today General Appearance: cooperative, comfortable, well kempt and well developed Orientation / Consciousness: awake Exam Limitations: no limitations HEENT normocephalic, head/scalp atraumatic, hearing grossly normal bilaterally, moist oral mucous membranes and oropharynx normal Eyes PERRL and EOMs intact bilaterally Eyes Narrative: Conjunctiva are mildly pale bilaterally, no scleral icterus Neck no lymphadenopathy and supple Neck Narrative: Trachea midline, no thyroid enlargement Resp normal respiratory effort, no retractions, no use of accessory muscles and clear to auscultation bilaterally Resp Narrative: Diffusely diminished but clear Auscultation: Negative for crackles, rales, rhonchi or wheezes Cardio regular rate, regular rhythm, S1 normal heart sound, S2 normal heart sound, no murmurs, no rub, no gallops and no clicks GI normal to inspection, nondistended, normoactive bowel sounds, soft to palpation and non-tender; Negative for hepatosplenomegaly Extremity no clubbing, cyanosis or edema Extremity Narrative: 2+ pedal pulses Skin no wounds, skin turgor normal and no jaundice Skin Narrative: Midline left upper extremity, scattered ecchymosis from hospitalization on arms Neuro oriented x3, CN's II-XII intact bilaterally, moves all extremities and no focal motor deficits Neuro Narrative: Generalized weakness noted-->proximal greater than distal Sensorium / Orientation: awake, alert, oriented to person, oriented to place and oriented to time Speech: speech normal Psych affect normal Psych Narrative: Patient very appropriate and pleasant Weight / BMI Weight Weight: 56.2 kg Body Mass Index (BMI) 23.1 ABG / Lab / Microbiology Data Result Diagrams: 08/29/22 04:22 08/30/22 05:35 Laboratory: Laboratory Results - last 24 hr 08/26/22 20:55: Diff Path Review Reviewed 08/30/22 05:35: Sodium 140, Potassium 4.2, Chloride 117 H, Carbon Dioxide 19.0 L, Anion Gap 4 L, BUN 10, Creatinine 1.10 H, Estim Creat Clear Calc 32.32, Est GFR (MDRD) Af Amer 62, Est GFR (MDRD) Non-Af 51 L, BUN/Creatinine Ratio 9.1 L, Glucose 85, Calcium 8.5 Microbiology: Microbiology 08/30/22 10:25 Nasal Secretion SARS-CoV-2 Antigen (Rapid) - Final 08/26/22 20:55 Blood Culture (Wb) - Left Forearm Blood Culture - Preliminary Pseudomonas aeroginosa 08/26/22 21:55 Urine, Clean Catch Urine Culture - Final Pseudomonas aeroginosa GNR lactose peripheral vascular tech 08/26/22 22:00 Blood Culture (Wb) - Right Forearm Blood Culture - Preliminary Citrobacter amalonaticus 08/27/22 00:45 Stool Enteric Bacteriology - Final 08/27/22 00:45 Stool C. difficile DNA Amplification - Final Meaningful Use Info Meaningful Use Diagnoses (Choose all that apply): None applicable Discharge Plan Admission Admit Date/Time: 08/26/22 23:31 Primary Reason for Your Visit: Malaise Attending Provider: Luba Wiley Primary Care Provider: Elliot Kang Chi Consulting Providers: Jeff Pappas ; Brandyn Johnson ; Mayco Santos Discharge Orders/Prescriptions Prescriptions: New cefepime 2 gram Recon Soln 2 g IV Q12H 7 Days Qty: 14 0RF Rx Instructions: dx: pseudomonas pyelonephritis weekly bmp and cbc. Fax to [phone] routine midline care per protocol acetaminophen [Tylenol] 325 mg Tablet 650 mg PO Q4H PRN PRN (Reason: Pain 1-10 Or Fever) Qty: 0 0RF Continued bupropion HCl [Wellbutrin XL] 150 mg tablet extended release 24 hr 150 mg PO QAM albuterol sulfate [Ventolin HFA] 90 mcg/actuation HFA aerosol inhaler 2 puff INHALATION Q4H PRN (Reason: shortness of breath or wheezing) Qty: 18 6RF citalopram 40 MG tablet 40 mg PO DAILY levothyroxine 100 mcg tablet 100 mcg PO DAILY@0600 Label Comments: PT IS CURRENTLY ON 100 MCG SHE IS TAKING A 25 AND 75 MCG TO MAKE THE 100 MCG DAILY DOSE. cyanocobalamin (vitamin B-12) 1,000 MCG/ML solution 100 mcg IM Q30D sodium bicarbonate 650 mg tablet 650 mg PO TID cholecalciferol (vitamin D3) [Vitamin D3] 25 mcg (1,000 unit) Capsule 25 mcg PO DAILY oxycodone 5 mg tablet 5 mg PO Q6H PRN (Reason: pain) 3 Days Qty: 12 0RF ondansetron 4 mg tablet,disintegrating 4 mg PO Q8H PRN (Reason: nausea and vomiting) Qty: 12 0RF phenazopyridine [Pyridium] 200 mg tablet 200 mg PO TID PRN PRN (Reason: Bladder Spasms) 7 Days Qty: 30 0RF potassium chloride 20 mEq Tablet Extended Release 20 meq PO DAILY Discontinued cephalexin [cephalexin] 500 mg capsule 500 mg PO Q12 2 Days Qty: 4 0RF cefpodoxime 200 mg tablet 200 mg PO BID Label Comments: TAKE 1 TABLET BY MOUTH TWICE DAILY WITH FOOD Referrals / Follow Up: Minal Morrison MD [Med Staff - Active Staff] - See Referral Note (As scheduled) Elliot Kang Chi, MD [Primary Care Provider] - Within 1 Month Disposition Disposition (needs filled in before D/C Order can be placed): Custodial Facility Charges/Coding Visit Charges Inpatient E&M: 12278 SNF Disch >30 Min
--- NOTE | 2022-08-30 15:46 | NURSING ---
report called to TCU for discharge, spoke with RICHARD Howard
== END 2022-08-30 17:40 | disposition skilled nursing facility (03) | DRG 862 ==
LOC: ED 23:03 → ICU 08-27 00:33 → MS3 08-29 09:07
PROVIDERS: Internal Medicine Critical Care Medicine; Admitting Provider Hospitalist; Emergency Provider Emergency Medicine; PCP Family Medicine Geriatric Medicine; Visit Provider Internal Medicine
DX: T81.44XA Sepsis following a procedure, initial encounter (principal); T81.12XA Postprocedural septic shock, initial encounter; A41.52 Sepsis due to Pseudomonas; N17.9 Acute kidney failure, unspecified; E27.40 Unspecified adrenocortical insufficiency; E87.20 Acidosis, unspecified; N13.6 Pyonephrosis; N18.32 Chronic kidney disease, stage 3b; J44.9 Chronic obstructive pulmonary disease, unspecified; Z93.3 Colostomy status; E03.9 Hypothyroidism, unspecified; F41.9 Anxiety disorder, unspecified; E87.6 Hypokalemia; E83.42 Hypomagnesemia; D64.9 Anemia, unspecified; Y83.8 Other surgical procedures as the cause of abnormal reaction of the patient, or of later complication, without mention of misadventure at the time of the procedure; F32.A Depression, unspecified; Z20.822 Contact with and (suspected) exposure to COVID-19; Z79.890 Hormone replacement therapy; Z87.891 Personal history of nicotine dependence; Z85.118 Personal history of other malignant neoplasm of bronchus and lung; Z86.73 Personal history of transient ischemic attack (TIA), and cerebral infarction without residual deficits
CPT/HCPCS: 36415; 36556; 51702; 71045; 76000; 76770; 80048; 80053; 80202; 81001; 83605; 83735; 84100; 84132; 85025; 85610; 85730; 87040; 87077; 87086; 87088; 87184; 87186; 87426; 87493; 87506; 93005; 94640; 97116; 97162; 97166; 97530; 97535; 99285; J2185; J7030; J7040; J7050; J7120; A4216; C1751; C1769; J2405

== ENCOUNTER 2022-08-30 18:00 | Inpatient (IN) | payer MEDICARE, OTHER, SELFPAY ==
[2022-08-30 18:08] VITALS: BP 126/56; PULSE 87; RESP 18; TEMP 36.4; O2SAT 95; BMI 23.1
[2022-08-30 19:45] VITALS: PULSE 75; RESP 16; O2SAT 96
--- NOTE | 2022-08-30 20:14 | HP.PCM_ITS ---
HPI - General General Date of Admission: 08/30/22 Date of Service: 08/31/22 Chief Complaint: Here for rehab, intravenous antibiotics. HPI Narrative 08/26/2022 JOSE DE JESUS GOLD, is a 77 Female who presents to [facility] Emergency Department with weakness. 08/26/2022 EKG normal sinus rhythm, nonspecific T wave abnormality. Weakness, dyspnea on exertion x 2 days, ureteral stent removed yesterday. Kidney stones passed, on oral antibiotics. Systolic blood pressure 64, IV fluids given. WBC 27.8, Lactic acid 3.8, Creatinine 2.2, Chest X-ray negative. Urinalysis consistent with infection, urine culture sent, blood culture sent, central line placed. Meropenem, Vancomycin given. 08/26/2022 Admit to ICU. IV Fluids, Meropenem, Vancomycin, blood culture, urine culture, for sepsis secondarty to complicated urinary tract infection. Enteric panel, c. diff for diarrhea. IV fluids for acute kidney injury. 08/27/2022 Feeling much better, on Levophed for hypotension. Order retroperitoneal ultrasound. Creatinine improved to 1.61. 08/28/2022 Feels Blah, fever overnight, off Levophed. Renal ultrasound mild left hydronephrosis, bilateral non-obstructing kidney stones. Urine culture gram negative rods. Creatinine 1.28. Replace Magnesium. 08/29/2022 Feeling much better, still off pressors. Blood culture Citrobacter amalonaticus, Pseudomonas. Urine culture Pseudomonas Aeruginosa. Acute kidney injury resolved. 08/30/2022 Dr. Johnson recommended Cefepime x 1 week to finish treatment 08/30/2022 Admit to TCU with debility, here for rehabilitation, strengthening, intravenous antibiotics, prior to discharge home alone. [facility] Medical History Abdominal bloating Anxiety Anxiety Arthritis Cancer Chronic bronchitis COPD (chronic obstructive pulmonary disease) COPD (chronic obstructive pulmonary disease) COPD exacerbation Crohn's disease Decreased appetite Depression Diarrhea Diarrhea Easy bruising Filling defect on imaging study Former smoker History of echocardiogram History of fracture of patella History of pain when walking History of rectal cancer History of stress test Hydronephrosis Hydronephrosis, right Hypothyroidism skilled nursing current use of immunosuppressive drug Lung cancer Nicotine abuse Osteoporosis Rectal cancer Rectal cancer 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 calculus Shortness of breath on exertion Stage 3b chronic kidney disease (CKD) Thyroid disease TIA (transient ischemic attack) TIA (transient ischemic attack) Urinary retention Walker as ambulation aid Wears dentures Wears hearing aid Home Medications bupropion HCl 150 mg 24 hr tablet, extended release (Wellbutrin XL) 150 mg PO QAM quit smoking 11/28/18 [History Last Taken 12/07/21 07:30] citalopram 40 mg tablet 40 mg PO DAILY Anxiety 04/24/19 [History Last Taken 12/07/21 07:30] cyanocobalamin (vitamin B-12) 1,000 mcg/mL injection solution 100 mcg IM Q30D Supplement 10/08/19 [History Last Taken 11/18/21] cholecalciferol (vitamin D3) 25 mcg (1,000 unit) capsule (Vitamin D3) 25 mcg PO DAILY Supplement 10/09/21 [History Last Taken 11/18/21] sodium bicarbonate 650 mg tablet 650 mg PO TID 10/09/21 [History Last Taken 11/18/21] albuterol sulfate 90 mcg/actuation aerosol inhaler (Ventolin HFA) 2 puff inhalation Q4H PRN shortness of breath or wheezing #18 grams 03/31/22 [Rx Last Taken Unknown] ondansetron 4 mg disintegrating tablet 4 mg PO Q8H PRN nausea and vomiting #12 tabs 08/08/22 [Rx Last Taken Unknown] oxycodone 5 mg tablet 5 mg PO Q6H PRN pain 3 days #12 tabs 08/08/22 [Rx Last Taken Unknown] phenazopyridine 200 mg tablet (Pyridium) 200 mg PO TID PRN PRN Bladder Spasms 7 days #30 tabs 08/10/22 [Rx Last Taken Unknown] potassium chloride 20 mEq tablet,extended release 20 meq PO DAILY Supplement 08/18/22 [History Last Taken Unknown] acetaminophen 325 mg tablet (Tylenol) 650 mg PO Q4H PRN PRN Pain 1-10 Or Fever #0 tabs 08/30/22 [Rx Last Taken Unknown] cefepime 2 gram solution for injection 2 g IV Q12H Antibiotic 08/30/22 [History Last Taken Unknown] levothyroxine 50 mcg tablet 100 mcg PO DAILY thyroid 08/30/22 [History Last Taken Unknown] Allergy/AdvReac Type Severity Reaction Status Date / Time ciprofloxacin [From Cipro] Allergy Rash Verified 08/26/22 20:42 ciprofloxacin HCl Allergy Rash Verified 08/26/22 20:42 [From Cipro] Penicillins Allergy Hives Verified 08/26/22 20:42 codeine AdvReac makes her Verified 08/26/22 20:42 feel weird magnesium citrate AdvReac Nausea Verified 08/26/22 20:42 NSAIDS (Non-Steroidal AdvReac kidney Verified 08/26/22 20:42 Anti-Inflamma damage r/t long-term usage advised not to use Family History Father Heart disease Mother Heart disease Sister Heart disease Diabetes Surgical History History of bowel resection History of delivery History of cholecystectomy History of colonoscopy (~10/2019) History of colostomy History of cystoscopy History of hysterectomy Social History household members: none Smoking Status: Former smoker Tobacco: How many years used: 53 how long ago did patient quit smoking: Quit 2-5 years prior. second hand exposure: No alcohol intake: never substance use type: does not use caffeine: No what type of physical activity do you participate in: none ROS Constitutional Constitutional: Denies chills, fever(s) or weight gain ENT HEENT: Denies headache(s), nasal congestion or nasal discharge Cardiovascular Cardiovascular: Denies chest pain or palpitations Respiratory/Chest Respiratory/Chest: Denies cough, excessive phlegm production or shortness of breath with exertion Gastrointestinal Gastrointestinal: Denies abdominal pain, nausea or vomiting Genitourinary Genitourinary: Denies dysuria Musculoskeletal Musculoskeletal: Denies joint pain or joint swelling Integumentary Integumentary: Denies rash or wounds Neurologic Neurologic: Denies focal weakness, numbness or tingling Psychiatric Psychiatric: Denies anxiety, auditory hallucinations, depression, homicidal ideation or suicidal ideation Vital Signs Vital Signs Vital Signs: 08/30/22 18:08 Temperature 97.5 F L Temperature Source Temporal Pulse Rate 87 Respiratory Rate 18 Blood Pressure 126/56 H Blood Pressure Mean 79 Blood Pressure Source Monitor Blood Pressure Position Supine Blood Pressure Location Right Arm Pulse Ox 95 Oxygen Delivery Method Room Air Weight Weight: 55.4 kg Body Mass Index (BMI) 23.1 Physical Exam GI GI Narrative: Colostomy. Extremity Extremity Narrative: PICC left upper extremity. Results Lab / Micro Data Result Diagrams: 08/31/22 05:32 08/31/22 05:32 Assessment & Plan Assessment/Plan (1) Debility: (2) Weakness: (3) Sepsis: (4) Bacteremia: (5) Complicated urinary tract infection: (6) Acute kidney injury: (7) History of lung cancer: (8) History of colon cancer: (9) Crohn disease: (10) Depression: (11) Vitamin B12 deficiency: (12) Hypothyroidism: (13) Metabolic acidosis: (14) Hypokalemia: PLAN: Plan 77 year old female with below past medical history hospitalized for sepsis, bacteremia secondary to complicated urinary tract infection, complicated by acute kidney injury, admitted to TCU with debility, here for rehabilitation, strengthening, intravenous antibiotics, prior to discharge home alone. * Debility - PT/OT. * Pain - Tylenol 1000mg q6h prn pain (1-5), Oxycodone 5mg q4h prn pain (6-10). * Bowel - senna/colace 1 tablet bid prn, Dulcolax 10mg daily prn. * Adult immunization - Administer pneumonia vaccine, covid19 vaccine, flu vaccine as appropriate. * DVT prophylaxis - Hold, anemia. * Shortness of breath - Albuterol MDI 2 puffs q4h prn. * Depression - Bupropion XL 150mg qam, Citalopram 20mg daily, stable chronic senior living use, GDR not recommended. * Citrobacter/Pseudomonas sepsis/bacteremia/complicated urinary tract infection - Cefepime 2gm iv q12h thru 09/06/2022. * Vitamin B12 deficiency - B12 1000mcg im q30 days. * Hypothyroidism - Levothyroxine 50mcg daily. * Nausea - Zofran odt 4mg q8h prn. * Dysuria - Azo 190mg tid prn. * Hypokalemia - KCL 20meq daily. * Acidosis - Sodium Bicarb 650mg tid. * Vitamin D deficiency - D3 25mcg daily.
[2022-08-30] MEDS: Cefepime HCl 2 GM in 0.9% NS 100 ML Minibag Q12 IV (20:42)
[2022-08-30] MEDS: 0.9% Saline Lock 10 ML Syringe IV (20:46)
[2022-08-30] MEDS: Sodium Bicarbonate 650 MG Tablet PO (20:48)
[2022-08-31] MEDS: Citalopram 20 MG Tablet PO (05:44)
[2022-08-31] MEDS: 0.9% Saline Lock 10 ML Syringe IV ×2 (05:45→17:51)
[2022-08-31] MEDS: Sodium Bicarbonate 650 MG Tablet PO ×3 (05:46→20:23)
[2022-08-31] MEDS: Cefepime HCl 2 GM in 0.9% NS 100 ML Minibag Q12 IV ×2 (05:48→17:51)
[2022-08-31] MEDS: Levothyroxine 100 MCG Tablet PO (05:54)
[2022-08-31 05:59] LABS: Absolute Lymphocyte Count 1.42 X10^3/uL (0.83-4.51); Absolute Neutrophil Count 4.5 X10^3/uL (2.0-7.7); Basophil# 0.02 X10^3/uL; Basophil% 0.3 % (0-1); Eosinophil# 0.36 X10^3/uL; Hematocrit 38.4 % (37-47); Hemoglobin 11.5 g/dL (12.0-15.0); Lymphocyte # 1.42 X10^3/ul (0.83-4.51); Lymphocyte % 19.8 % (19-41); Mean Corp Hgb Conc 29.9 g/dL (32-36); Mean Corpuscular Hgb 27.6 pg (27.0-32.0); Mean Corpuscular Volume 92.3 fL (81-99); Mean Platelet Vol. 9.6 fl (6.2-12.0); Monocyte# 0.85 X10^3/uL; Monocyte% 11.9 % (0-10); NRBC Flagged by Analyzer 0 % (0-5); Neutrophil # 4.45 X10^3/uL (2.7-7.7); Neutrophil % 62.2 % (47-70); Platelet Count 208 K/mm3 (150-450); RBC Distribution Width CV 14.4 % (11.6-14.6); RBC Distribution Width SD 48.7 fl (35.1-43.9); Red Blood Count 4.16 M/mm3 (4.2-5.4); White Blood Count 7.2 K/mm3 (4.4-11.0)
[2022-08-31 06:39] LABS: Anion Gap 7 (5-15); BUN 11 mg/dL (7-18); BUN/Creat Ratio 9.6 RATIO (10-20); Calcium,Total 8.9 mg/dL (8.5-10.1); Chloride 115 mmol/L (98-107); Creatinine, Serum 1.15 mg/dL (0.55-1.02); EST Glomerular Filtration Rate 49 mL/min (>60); Est Glom Filt Rate - Afr Amer 59 mL/min (>60); Estimated Creatinine Clearance 30.91 ml/min; Glucose 83 mg/dL (74-106); Potassium 3.6 mmol/L (3.5-5.1); Sodium Level 140 mmol/L (136-145)
[2022-08-31] MEDS: Potassium Chloride Oral Tablet 20 MEQ PO (08:06)
[2022-08-31] MEDS: Albuterol IH (6.7 GM) 1 PUFF INHALER 2 PUFF INHALATION ×2 (08:55→20:22)
[2022-08-31 09:00] VITALS: O2SAT 99
[2022-08-31] MEDS: buPROPion (XL) 150 MG TABLET.XL PO (09:14)
[2022-08-31] MEDS: Tuberculin,Purif.prot.deriv. 50 TU/ML Vial 0.1 ML ID (11:11)
--- NOTE | 2022-08-31 12:50 | NURSING ---
Printed [employer] Photographer Note; Activity Asst: complete
[2022-08-31] MEDS: Cholecalciferol (VIT D3) 25 MCG TABLET (1,000 UNITS) PO (12:58)
[2022-08-31 13:32] VITALS: BP 101/65; PULSE 90; RESP 16; TEMP 36.4; O2SAT 94
--- NOTE | 2022-08-31 15:19 | PHA.CONS_ITS ---
TCU RX Drug Regimen Review Subjective: TCU Admission. 77 YOF presented to the ER with weakness. Hospitalized for sepsis, bacteremia secondary to complicated urinary tract infection, complicated by acute kidney injury. Admitted to TCU with debility for IV antibiotics, strengthening and rehabilitation. Objective: Allergies ciprofloxacin [From Cipro] Allergy (Verified 08/26/22 20:42) Rash ciprofloxacin HCl [From Cipro] Allergy (Verified 08/26/22 20:42) Rash Penicillins Allergy (Verified 08/26/22 20:42) Hives codeine Adverse Reaction (Verified 08/26/22 20:42) makes her feel weird makes her feel weird magnesium citrate Adverse Reaction (Verified 08/26/22 20:42) Nausea NSAIDS (Non-Steroidal Anti-Inflamma Adverse Reaction (Verified 08/26/22 20:42) kidney damage r/t long-term usage advised not to use kidney damage r/t long-term usage advised not to use Current Medications Generic Name Dose Route Start Last Admin Trade Name Freq PRN Reason Stop Dose Admin Acetaminophen 1,000 mg 08/30/22 20:32 Acetaminophen 500 Mg Tablet PO Q6H PRN PRN Pain Score 1-10 Albuterol Sulfate 2 puff 08/30/22 18:12 08/31/22 08:55 Albuterol Ih (6.7 Gm) 1 Puff Inhaler INHALATION 2 puff Q4H PRN Administration shortness of breath or wheezing Bisacodyl 10 mg 08/30/22 20:31 Bisacodyl 5 Mg Tablet PO DAILY PRN Constipation Bupropion HCl 150 mg 08/31/22 10:00 08/31/22 09:14 Bupropion (Xl) 150 Mg Tablet.Xl PO 150 mg QAM PRIMO Administration Calamine/Phenol 1 applic 08/31/22 18:00 Menthol/Lanolin/Calamine/Znox 113 Gm Tube TOPICAL BID COUNTS INCLUDE 234 BEDS AT THE [facility] Protocol Cholecalciferol 25 mcg 08/31/22 08:00 08/31/22 12:58 Cholecalciferol (Vit D3) 25 Mcg Tablet (1,000 Units) PO 25 mcg DAILYCM PRIMO Administration Citalopram Hydrobromide 20 mg 08/31/22 06:00 08/31/22 05:44 Citalopram 20 Mg Tablet PO 20 mg DAILY PRIMO Administration Cyanocobalamin 1,000 mcg 09/08/22 06:00 Cyanocobalamin (B12) 1,000 Mcg/Ml Vial IM Q30D PRIMO Cefepime HCl 2 gm/ Sodium 100 mls @ 200 mls/hr 08/30/22 18:30 08/31/22 06:18 Chloride IV 09/06/22 06:29 Infused Q12 PRIOM Infusion Sodium Chloride 250 mls @ 15 mls/hr 08/30/22 18:37 08/31/22 06:27 IV 0 mls/hr .[id number] PRN Infusion Saline Flush Sodium Chloride 250 mls @ 15 mls/hr 08/30/22 18:37 IV .[id number] PRN Additional IVPB Infusion Levothyroxine Sodium 50 mcg 09/01/22 06:00 Levothyroxine 50 Mcg Tablet PO DAILY PRIMO Ondansetron HCl 4 mg 08/30/22 18:12 Ondansetron Odt 4 Mg Tablet PO Q8H PRN nausea and vomiting Oxycodone HCl 5 mg 08/30/22 20:32 Oxycodone 5 Mg Tablet PO Q4H PRN PRN Pain Score 6-10 Phenazopyridine HCl 190 mg 08/30/22 18:25 Phenazopyridine 95 Mg Tablet PO TID PRN PRN Bladder Spasms Potassium Chloride 20 meq 08/31/22 08:00 08/31/22 08:06 Potassium Chloride Oral Tablet 20 Meq PO 20 meq DAILYCM PRIMO Administration Senna/Docusate Sodium 1 tablet 08/30/22 20:31 Senna/Docusate Sodium 1 Tablet PO BID PRN Constipation Sodium Bicarbonate 650 mg 08/30/22 22:00 08/31/22 12:59 Sodium Bicarbonate 650 Mg Tablet PO 650 mg TID PRIMO Administration Sodium Chloride 10 - 40 ml 08/30/22 18:27 08/31/22 05:45 0.9% Saline Lock 10 Ml Syringe IV 20 ml UD PRN Administration SALINE FLUSH Sodium Chloride 10 - 40 ml 08/31/22 00:35 0.9% Saline Lock 10 Ml Syringe IV UD PRN Midline Flush Sodium Chloride 10 - 40 ml 08/31/22 00:35 0.9 % Nacl (Sterile) Posiflush 10 Ml IV UD PRN Port access or dressing change Tuberculin PPD 0.1 ml 09/07/22 10:00 Tuberculin,Purif.Prot.Deriv. 50 Tu/Ml Vial ID 09/07/22 10:01 X1 ONE Problem List (Last Reviewed 08/30/22 @ 20:[address] Elliot Kang MD) Hypokalemia (Acute) Metabolic acidosis (Acute) Hypothyroidism (Acute) Vitamin B12 deficiency (Acute) Depression (Acute) Crohn disease (Acute) History of colon cancer (Acute) History of lung cancer (Acute) Acute kidney injury (Acute) Complicated urinary tract infection (Acute) Bacteremia (Acute) Sepsis (Acute) Weakness (Acute) Debility (Acute) Vital Signs Temp Pulse Resp BP Pulse Ox O2 Del Method 97.6 F L 90 16 101/65 94 Room Air 08/31/22 13:32 08/31/22 13:32 08/31/22 13:32 08/31/22 13:32 08/31/22 13:32 08/31/22 13:32 Oxygen Delivery Method Room Air Weight: 55.4 kg Body Mass Index (BMI) 23.1 Sodium 140 mmol/L (136-145) 08/31/22 05:32 Potassium 3.6 mmol/L (3.5-5.1) 08/31/22 05:32 Chloride 115 mmol/L (98-107) H 08/31/22 05:32 Carbon Dioxide 18.0 mmol/L (21.0-32.0) L 08/31/22 05:32 Anion Gap 7 (5-15) 08/31/22 05:32 BUN 11 mg/dL (7-18) 08/31/22 05:32 Creatinine 1.15 mg/dL (0.55-1.02) H 08/31/22 05:32 Est GFR (MDRD) Af Amer 59 mL/min (>60) L 08/31/22 05:32 Est GFR (MDRD) Non-Af 49 mL/min (>60) L 08/31/22 05:32 BUN/Creatinine Ratio 9.6 RATIO (10-20) L 08/31/22 05:32 Glucose 83 mg/dL (74-106) 08/31/22 05:32 Assessment/Plan: 1. Pain: acetaminophen 1000mg PO Q6H PRN pain 1-10 and oxycodone 5mg PO Q4H PRN pain 6-10. Please continue to monitor for increased pain and PRN usage. Resident has not had any doses so far. 2. Bowel: senna/docusate 1T PO BID PRN constipation and bisacodyl 10mg PO daily PRN constipation. Resident has not had any doses but last documented bowel movement was 08/29. Please continue to monitor for PRN usage and constipation. 3. Citrobacter/Pseudomonas sepsis/bacteremia/complicated UTI: cefepime 2gm IV Q12 thru 09/06/22. Please continue to monitor for S/S of infection, renal function and diarrhea. 4. Shortness of breath: albuterol MDI 2puff Q4H PRN shortness of breath/wheezing. Resident has had 1 dose of albuterol. Please continue to m onitor for SOB, wheezing and PRN usage. 5. Hypothyroidism: levothyroxine 50mcg PO daily. Please continue to monitor TSH (last 08/19/22) and S/S of hypo/hyperthyroidism. 6. Nausea: ondansetron 4mg PO Q8H PRN nausea. Please continue to monitor for nausea and PRN usage. Resident has not had any doses. 7. Dysuria: phenazopyridine 190mg PO TID PRN bladder spasms. Resident has not had any doses. Please continue to monitor for PRN doses and bladder spasms. 8. Hypokalemia: potassium chloride 20mEq PO DAILYCM. Please continue to monitor potassium levels (last 3.6mmol/L). 9. Acidosis: sodium bicarbonate 650mg PO TID. Please continue to monitor for acidosis and sodium (last 140mmol/L). 10. Vitamin B12/D deficiencies: cyanocobalamin 1000mcg IM monthly and cholecalciferol 25mcg PO DAILYCM. Please consider ordering a vitamin B12 level. Last level from 02/2018. Thanks. Please continue to monitor vitamin D levels (last 08/08/22). Assessment/Plan for indications treated with psychotropic medications: 1. Depression: bupropion XL 150mg PO daily and citalopram 20mg PO daily. Please see physician note regarding GDR. Please continue to monitor for suicidal ideation (black box warning), GI side effects and falls/fractures. Medical chart and medication regimen reviewed. The following medication irregularities or issues were identified: *1. Cyanocobalamin 1000mcg IM monthly. Please consider ordering a vitamin B12 level. Last level from 02/2018. Thanks. Date of Note:: 08/31/22
--- NOTE | 2022-08-31 15:53 | PCM.PN.ID ---
Physical Exam Narrative Feeling better, no fever, no abd pain Const alert and no apparent distress Resp normal air movement and clear to auscultation bilaterally Cardio regular rate and regular rhythm GI soft to palpation, non-tender and non-distended Skin no rashes or lesions noted ID ID: Route of nutrition/ use of supplements: [] Nutritional Intake: [] IV Site: [] Gallagher Catheter: [] Assessment & Plan Assessment/Plan (1) Bacteremia: PLAN: One bcx with pseudomonas, one with citrobacter.? Ucx with PsA and GNR.? Has tolerated cephalosporins in past.? Ucx 08/08 with PsA, given cefpodoxime which does not have pseudomonal activity.? Much improved, cont cefepime, plan is for one week cefepime, stop date 09/06/22. Will follow
[2022-08-31] MEDS: Menthol/Lanolin/Calamine/Znox 113 GM Tube 1 APPLIC TOPICAL (17:51)
[2022-09-01] MEDS: Sodium Bicarbonate 650 MG Tablet PO ×3 (05:05→20:29)
[2022-09-01] MEDS: Levothyroxine 50 MCG Tablet PO (05:06)
[2022-09-01] MEDS: Citalopram 20 MG Tablet PO (05:06)
[2022-09-01] MEDS: Cefepime HCl 2 GM in 0.9% NS 100 ML Minibag Q12 IV ×2 (05:16→17:58)
[2022-09-01] MEDS: Menthol/Lanolin/Calamine/Znox 113 GM Tube 1 APPLIC TOPICAL ×2 (05:18→20:31)
[2022-09-01] MEDS: Potassium Chloride Oral Tablet 20 MEQ PO (08:07)
[2022-09-01] MEDS: Cholecalciferol (VIT D3) 25 MCG TABLET (1,000 UNITS) PO (08:07)
[2022-09-01] MEDS: buPROPion (XL) 150 MG TABLET.XL PO (10:11)
--- NOTE | 2022-09-01 11:49 | CASEMGMT ---
Social Work Met with patient to complete initial assessment. Introduced self and role. Verified contacts. Discussed code status and MOLST form. Pt confirms full code. MOLST placed in Dr. brown. Educated to Medicare benefit. Pt has IV ATB through 09/06. Pts goal is to return home alone at [facility]. SW to continue to follow for DC planning. Arely Marlow, [employer]
[2022-09-01 14:00] VITALS: BP 108/63; PULSE 61; RESP 12; TEMP 36.4; O2SAT 96
[2022-09-01] MEDS: 0.9% Saline Lock 10 ML Syringe IV (17:57)
[2022-09-01 20:36] VITALS: PULSE 72; RESP 16; O2SAT 96
[2022-09-02] MEDS: Levothyroxine 50 MCG Tablet PO (06:12)
[2022-09-02] MEDS: Citalopram 20 MG Tablet PO (06:12)
[2022-09-02] MEDS: Sodium Bicarbonate 650 MG Tablet PO ×3 (06:12→19:44)
[2022-09-02] MEDS: Cefepime HCl 2 GM in 0.9% NS 100 ML Minibag Q12 IV ×2 (06:21→17:44)
[2022-09-02] MEDS: Menthol/Lanolin/Calamine/Znox 113 GM Tube 1 APPLIC TOPICAL ×2 (06:24→17:47)
[2022-09-02] MEDS: 0.9% Saline Lock 10 ML Syringe IV ×2 (06:27→17:44)
[2022-09-02] MEDS: Potassium Chloride Oral Tablet 20 MEQ PO (08:00)
[2022-09-02] MEDS: Cholecalciferol (VIT D3) 25 MCG TABLET (1,000 UNITS) PO (08:01)
[2022-09-02] MEDS: buPROPion (XL) 150 MG TABLET.XL PO (10:51)
[2022-09-02 14:00] VITALS: BP 104/59; PULSE 67; RESP 14; TEMP 36.6; O2SAT 96
[2022-09-02 19:37] VITALS: PULSE 75; RESP 16; O2SAT 97
[2022-09-03] MEDS: Citalopram 20 MG Tablet PO (05:09)
[2022-09-03] MEDS: Sodium Bicarbonate 650 MG Tablet PO ×3 (05:09→20:02)
[2022-09-03] MEDS: Menthol/Lanolin/Calamine/Znox 113 GM Tube 1 APPLIC TOPICAL ×2 (05:09→18:11)
[2022-09-03] MEDS: Cefepime HCl 2 GM in 0.9% NS 100 ML Minibag Q12 IV ×2 (05:10→18:10)
[2022-09-03] MEDS: Levothyroxine 50 MCG Tablet PO (05:10)
[2022-09-03] MEDS: 0.9% Saline Lock 10 ML Syringe IV ×2 (05:11→18:10)
[2022-09-03] MEDS: Cholecalciferol (VIT D3) 25 MCG TABLET (1,000 UNITS) PO (07:54)
[2022-09-03] MEDS: Potassium Chloride Oral Tablet 20 MEQ PO (07:54)
[2022-09-03] MEDS: buPROPion (XL) 150 MG TABLET.XL PO (10:32)
[2022-09-03 14:00] VITALS: BP 107/67; PULSE 75; RESP 20; TEMP 36.6; O2SAT 95
[2022-09-04] MEDS: Levothyroxine 50 MCG Tablet PO (05:40)
[2022-09-04] MEDS: Sodium Bicarbonate 650 MG Tablet PO ×3 (05:40→22:11)
[2022-09-04] MEDS: Citalopram 20 MG Tablet PO (05:40)
[2022-09-04] MEDS: Cefepime HCl 2 GM in 0.9% NS 100 ML Minibag Q12 IV ×2 (05:48→18:30)
[2022-09-04] MEDS: Menthol/Lanolin/Calamine/Znox 113 GM Tube 1 APPLIC TOPICAL (05:49)
[2022-09-04] MEDS: Potassium Chloride Oral Tablet 20 MEQ PO (08:16)
[2022-09-04] MEDS: Cholecalciferol (VIT D3) 25 MCG TABLET (1,000 UNITS) PO (08:17)
[2022-09-04] MEDS: buPROPion (XL) 150 MG TABLET.XL PO (11:28)
[2022-09-04 14:00] VITALS: BP 116/63; PULSE 71; RESP 16; TEMP 36.7; O2SAT 94
[2022-09-04 22:00] VITALS: PULSE 73; RESP 16; O2SAT 97
[2022-09-05] MEDS: Sodium Bicarbonate 650 MG Tablet PO ×3 (05:31→20:37)
[2022-09-05] MEDS: Levothyroxine 50 MCG Tablet PO (05:31)
[2022-09-05] MEDS: Cefepime HCl 2 GM in 0.9% NS 100 ML Minibag Q12 IV ×2 (05:31→17:31)
[2022-09-05] MEDS: Citalopram 20 MG Tablet PO (05:31)
[2022-09-05] MEDS: Potassium Chloride Oral Tablet 20 MEQ PO (08:24)
[2022-09-05] MEDS: Cholecalciferol (VIT D3) 25 MCG TABLET (1,000 UNITS) PO (08:24)
[2022-09-05] MEDS: buPROPion (XL) 150 MG TABLET.XL PO (10:18)
[2022-09-05 10:55] VITALS: PULSE 85; RESP 18; O2SAT 96
--- NOTE | 2022-09-05 11:53 | NURSING ---
COLOSTOMY BAG AND APPLIANCE WAS CHANGED ON 09/05/22.
[2022-09-05 13:43] VITALS: BP 102/61; PULSE 77; RESP 16; TEMP 36.4; O2SAT 94
[2022-09-05] MEDS: Menthol/Lanolin/Calamine/Znox 113 GM Tube 1 APPLIC TOPICAL (17:21)
[2022-09-05] MEDS: 0.9% Saline Lock 10 ML Syringe IV (17:28)
[2022-09-06] MEDS: Cefepime HCl 2 GM in 0.9% NS 100 ML Minibag Q12 IV (05:40)
[2022-09-06] MEDS: Citalopram 20 MG Tablet PO (05:41)
[2022-09-06] MEDS: Sodium Bicarbonate 650 MG Tablet PO ×3 (05:41→20:35)
[2022-09-06] MEDS: Levothyroxine 50 MCG Tablet PO (05:41)
[2022-09-06] MEDS: Menthol/Lanolin/Calamine/Znox 113 GM Tube 1 APPLIC TOPICAL ×2 (07:20→17:53)
[2022-09-06] MEDS: Potassium Chloride Oral Tablet 20 MEQ PO (07:59)
[2022-09-06] MEDS: Cholecalciferol (VIT D3) 25 MCG TABLET (1,000 UNITS) PO (08:00)
[2022-09-06] MEDS: buPROPion (XL) 150 MG TABLET.XL PO (09:09)
--- NOTE | 2022-09-06 10:24 | CASEMGMT ---
Addendum entered by Arely Marlow 09/06/22 15:49: SW spoke with IDT and no therapy needed at DC, if pt not agreeable. Updated pt. Pt appreciative. DC with no needs. Dtr to transport 1430. Original Note: Social Work BIMS () and PHQ-9 (12/02) completed for MDS assessment. Spoke with pt about DC plans. Pt is done with IV ATB today and requesting to DC home. IDT agreeable to DC 09/08. Recommending outpatient therapy. Pt unsure and will consider. No DME needs. SW to f/u on DC needs. Plan: DC home alone 09/08 Arely Marlow, IRWIN FATIMAW
--- NOTE | 2022-09-06 12:48 | NURSING ---
PT D/C ON 09/08/22 AT 1430. PT WILL THEN GO TO APPOINTMENT WITH AT 1440. PT AWARE,WILL NOTIFY FAMILY.
[2022-09-06 14:00] VITALS: BP 106/72; PULSE 77; RESP 16; TEMP 36.6; O2SAT 95
--- NOTE | 2022-09-06 19:37 | DS.PCM_ITS ---
Providers Date of Admission: 08/30/22 Primary Care Physician: Dr. Elliot Kang MD Consultations 08/30/22 18:24 Consult: Infectious Disease Routine Consulting Provider: Brandyn Johnson Reason for Consult: Antibiotic management EMERGENT Consult: No MD Notified: Yes Date Notified: 08/31/22 Time Notified: 09:00 Method of Notification: Verbal Reason For Visit: SEPSIS Diagnosis Discharge Diagnosis (1) Bacteremia: Status: Acute Code(s): R78.81 - Bacteremia Plan 77 year old female with below past medical history hospitalized for sepsis, bacteremia secondary to complicated urinary tract infection, complicated by acute kidney injury, admitted to TCU with debility, here for rehabilitation, strengthening, intravenous antibiotics, prior to discharge home alone. * Debility - PT/OT. * Pain - Tylenol 1000mg q6h prn pain (1-5), Oxycodone 5mg q4h prn pain (6-10). * Bowel - senna/colace 1 tablet bid prn, Dulcolax 10mg daily prn. * Adult immunization - Administer pneumonia vaccine, covid19 vaccine, flu vaccine as appropriate. * DVT prophylaxis - Hold, anemia. * Shortness of breath - Albuterol MDI 2 puffs q4h prn. * Depression - Bupropion XL 150mg qam, Citalopram 20mg daily, stable chronic penitentiary use, GDR not recommended. * Citrobacter/Pseudomonas sepsis/bacteremia/complicated urinary tract infection - Cefepime 2gm iv q12h thru 09/06/2022. * Vitamin B12 deficiency - B12 1000mcg im q30 days. * Hypothyroidism - Levothyroxine 50mcg daily. * Nausea - Zofran odt 4mg q8h prn. * Dysuria - Azo 190mg tid prn. * Hypokalemia - KCL 20meq daily. * Acidosis - Sodium Bicarb 650mg tid. * Vitamin D deficiency - D3 25mcg daily. Medications at Discharge Home Medications bupropion HCl 150 mg 24 hr tablet, extended release (Wellbutrin XL) 150 mg PO QAM quit smoking 11/28/18 citalopram 40 mg tablet 40 mg PO DAILY Anxiety 04/24/19 cyanocobalamin (vitamin B-12) 1,000 mcg/mL injection solution 100 mcg IM Q30D Supplement 10/08/19 cholecalciferol (vitamin D3) 25 mcg (1,000 unit) capsule (Vitamin D3) 25 mcg PO DAILY Supplement 10/09/21 sodium bicarbonate 650 mg tablet 650 mg PO TID 10/09/21 albuterol sulfate 90 mcg/actuation aerosol inhaler (Ventolin HFA) 2 puff inhalation Q4H PRN shortness of breath or wheezing #18 grams 03/31/22 ondansetron 4 mg disintegrating tablet 4 mg PO Q8H PRN nausea and vomiting #12 tabs 08/08/22 oxycodone 5 mg tablet 5 mg PO Q6H PRN pain 3 days #12 tabs 08/08/22 phenazopyridine 200 mg tablet (Pyridium) 200 mg PO TID PRN PRN Bladder Spasms 7 days #30 tabs 08/10/22 potassium chloride 20 mEq tablet,extended release 20 meq PO DAILY Supplement 08/18/22 acetaminophen 325 mg tablet (Tylenol) 650 mg PO Q4H PRN PRN Pain 1-10 Or Fever #0 tabs 08/30/22 cefepime 2 gram solution for injection 2 g IV Q12H Antibiotic 08/30/22 levothyroxine 50 mcg tablet 100 mcg PO DAILY thyroid 08/30/22 citalopram 20 mg tablet 20 mg PO DAILY 90 days #90 tabs 09/06/22 levothyroxine 50 mcg tablet 50 mcg PO DAILY #0 tabs 09/06/22 Hospital Course Operations None Procedures None Summary of Care Provided Minutes Spent on Discharge: 35 Hospital Course: 77 year old female with below past medical history hospitalized for sepsis, bacteremia secondary to complicated urinary tract infection, complicated by acute kidney injury, admitted to TCU with debility, here for rehabilitation, strengthening, intravenous antibiotics, prior to discharge home alone. Discharge home alone 09/08/2022, No needs. Physical Exam Const alert General Appearance: cooperative HEENT normocephalic Eyes PERRL and EOMs intact bilaterally Neck supple, no JVD and no carotid bruits Resp normal respiratory effort, normal air movement and clear to auscultation bilaterally Cardio regular rate and regular rhythm GI normal to inspection, nondistended, normoactive bowel sounds, non-tender and non-distended GI Narrative: Colostomy present. Extremity normal capillary refill General Extremity: Negative for edema Skin no rashes or lesions noted General Skin Exam: no breakdown Psych affect normal Appearance: appropriate Weight / BMI Weight Weight: 54.159 kg Body Mass Index (BMI) 23.1 ABG / Lab / Microbiology Data Result Diagrams: 08/31/22 05:32 08/31/22 05:32 D/C Instructions Discharge Diet: No restrictions Discharge Activity: Return to Normal Activity, May Shower and Use Walker Weight Bearing Status: Weight bearing as tolerated Call your doctor if you observe: Fever of 101 or Higher, Inability to urinate, Inability to have a bowel movement, Shortness of breath, Dizziness, Fainting spells, Swelling in the ankles, Chest pain and Uncontrolled pain Additional Instructions: Discharge home alone 09/08/2022, No needs. Please Follow Up With: When: on discharge. Meaningful Use Info Meaningful Use Diagnoses (Choose all that apply): None applicable Discharge Plan Admission Admit Date/Time: 08/30/22 18:00 Primary Reason for Your Visit: Debility. Attending Provider: Elliot Kang Chi Primary Care Provider: Elliot Kang Chi Consulting Providers: Brandyn Johnson Instructions Additional Instructions / Restrictions: Discharge home alone 09/08/2022, No needs. Discharge Orders/Prescriptions Prescriptions: New citalopram 20 mg Tablet 20 mg PO DAILY 90 Days Qty: 90 3RF levothyroxine 50 mcg Tablet 50 mcg PO DAILY Qty: 0 0RF Continued bupropion HCl [Wellbutrin XL] 150 mg tablet extended release 24 hr 150 mg PO QAM cyanocobalamin (vitamin B-12) 1,000 MCG/ML solution 100 mcg IM Q30D sodium bicarbonate 650 mg tablet 650 mg PO TID cholecalciferol (vitamin D3) [Vitamin D3] 25 mcg (1,000 unit) Capsule 25 mcg PO DAILY potassium chloride 20 mEq Tablet Extended Release 20 meq PO DAILY No Action albuterol sulfate [Ventolin HFA] 90 mcg/actuation HFA aerosol inhaler 2 puff INHALATION Q4H PRN (Reason: shortness of breath or wheezing) Qty: 18 6RF citalopram 40 MG tablet 40 mg PO DAILY oxycodone 5 mg tablet 5 mg PO Q6H PRN (Reason: pain) 3 Days Qty: 12 0RF ondansetron 4 mg tablet,disintegrating 4 mg PO Q8H PRN (Reason: nausea and vomiting) Qty: 12 0RF phenazopyridine [Pyridium] 200 mg tablet 200 mg PO TID PRN PRN (Reason: Bladder Spasms) 7 Days Qty: 30 0RF acetaminophen [Tylenol] 325 mg Tablet 650 mg PO Q4H PRN PRN (Reason: Pain 1-10 Or Fever) Qty: 0 0RF levothyroxine 50 mcg tablet 100 mcg PO DAILY cefepime 2 gram recon soln 2 g IV Q12H Rx Instructions: dx: pseudomonas pyelonephritis weekly bmp and cbc. Fax to [phone] routine midline care per protocol Referrals / Follow Up: Elliot Kang Chi, MD [Primary Care Provider] - 09/08/22 2:40 pm Disposition Disposition (needs filled in before D/C Order can be placed): Home, Self Care
[2022-09-07 05:43] LABS: Absolute Lymphocyte Count 2.46 X10^3/uL (0.83-4.51); Absolute Neutrophil Count 7.6 X10^3/uL (2.0-7.7); Basophil# 0.03 X10^3/uL; Basophil% 0.3 % (0-1); Eosinophils% 3.5 % (0-5); Hematocrit 34.7 % (37-47); Hemoglobin 10.9 g/dL (12.0-15.0); Lymphocyte # 2.46 X10^3/ul (0.83-4.51); Lymphocyte % 21.6 % (19-41); Mean Corp Hgb Conc 31.4 g/dL (32-36); Mean Corpuscular Hgb 28.5 pg (27.0-32.0); Mean Corpuscular Volume 90.8 fL (81-99); Mean Platelet Vol. 9.4 fl (6.2-12.0); NRBC Flagged by Analyzer 0 % (0-5); Neutrophil # 7.59 X10^3/uL (2.7-7.7); Neutrophil % 66.8 % (47-70); Platelet Count 218 K/mm3 (150-450); RBC Distribution Width CV 14.1 % (11.6-14.6); Red Blood Count 3.82 M/mm3 (4.2-5.4); White Blood Count 11.4 K/mm3 (4.4-11.0)
[2022-09-07 06:09] LABS: Anion Gap 7 (5-15); BUN 13 mg/dL (7-18); BUN/Creat Ratio 11.5 RATIO (10-20); Calcium,Total 8.8 mg/dL (8.5-10.1); Chloride 115 mmol/L (98-107); Creatinine, Serum 1.13 mg/dL (0.55-1.02); EST Glomerular Filtration Rate 50 mL/min (>60); Est Glom Filt Rate - Afr Amer 60 mL/min (>60); Estimated Creatinine Clearance 31.46 ml/min; Glucose 91 mg/dL (74-106); Potassium 3.6 mmol/L (3.5-5.1); Sodium Level 141 mmol/L (136-145)
[2022-09-07] MEDS: Citalopram 20 MG Tablet PO (06:13)
[2022-09-07] MEDS: Levothyroxine 50 MCG Tablet PO (06:13)
[2022-09-07] MEDS: Sodium Bicarbonate 650 MG Tablet PO ×3 (06:13→20:02)
[2022-09-07] MEDS: Menthol/Lanolin/Calamine/Znox 113 GM Tube 1 APPLIC TOPICAL ×2 (06:13→17:26)
[2022-09-07] MEDS: Cholecalciferol (VIT D3) 25 MCG TABLET (1,000 UNITS) PO (08:02)
[2022-09-07] MEDS: Potassium Chloride Oral Tablet 20 MEQ PO (08:02)
[2022-09-07] MEDS: buPROPion (XL) 150 MG TABLET.XL PO (08:02)
--- NOTE | 2022-09-07 08:38 | NURSING ---
Resident Care Director Note; MDS complete for 09/06/2022
--- NOTE | 2022-09-07 09:58 | CASEMGMT ---
Social Work IDT met with patient for care plan meeting. Pt denied to call dtr. Discussed patient's progress in PT/OT/SN. Confirmed DC plans for 09/08 home alone and pt denied continued therapy or nursing care. Dtr to transport. No other issues noted. Plan: DC home alone 09/08, no needs IRWIN HollingswrothW
[2022-09-07 14:00] VITALS: BP 115/57; PULSE 76; RESP 18; TEMP 36.2; O2SAT 95
[2022-09-08] MEDS: Citalopram 20 MG Tablet PO (05:12)
[2022-09-08] MEDS: Levothyroxine 50 MCG Tablet PO (05:12)
[2022-09-08] MEDS: Sodium Bicarbonate 650 MG Tablet PO ×2 (05:12→13:07)
[2022-09-08] MEDS: Cyanocobalamin (B12) 1,000 MCG/ML Vial 1000 MCG IM (05:19)
[2022-09-08] MEDS: Menthol/Lanolin/Calamine/Znox 113 GM Tube 1 APPLIC TOPICAL (05:23)
[2022-09-08 05:31] VITALS: BP 133/55; PULSE 67; RESP 16; TEMP 36.1; O2SAT 92
[2022-09-08 05:32] VITALS: O2SAT 92
[2022-09-08] MEDS: Cholecalciferol (VIT D3) 25 MCG TABLET (1,000 UNITS) PO (07:49)
[2022-09-08] MEDS: Potassium Chloride Oral Tablet 20 MEQ PO (07:49)
[2022-09-08] MEDS: buPROPion (XL) 150 MG TABLET.XL PO (07:50)
[2022-09-08 09:45] LABS: Bacteria 0 SEEN /hpf (None Seen); Mucous, Urine 0 SEEN /hpf (<or=2+)
[2022-09-08 09:48] LABS: Color, Urine Yellow (Yellow); Glucose, Dipstick Normal (Normal); Ketone-Dipstick Negative (Negative); Leukocyte Esterase-Dipstick 25 /ul (Negative); Nitrite-Dipstick Negative (Negative); Occult Blood-Urine 50 /ul (Negative); Protein-Dipstick 30 mg/dl (Negative); Urine Bilirubin Dipstick Negative (Negative); Urine Clarity Sl. Cloudy (Clear); Urine Urobilinogen Normal (Normal)
[2022-09-08 09:56] LABS: Red Blood Cells-Urine 0-5 SEEN /hpf (0-5); Squamous Epithelial Cells - UA 0-5 SEEN /hpf (5-10); White Blood Cells 0-5 SEEN /hpf (0-5)
--- NOTE | 2022-09-08 12:00 | NURSING ---
Dr. Kang aware of UA, patient denies any dysuria symptoms. Daughter aware. MIDLINE dc'd. Patient will be dc'd today.
[2022-09-08 15:00] VITALS: BP 133/55; PULSE 67; RESP 16; TEMP 36.1; O2SAT 92
--- NOTE | 2022-09-08 15:01 | NURSING ---
Discharge to home and patient and daughter aware of instructions.
--- NOTE | 2022-09-12 08:09 | MDS.RN ---
Information for the mds was obtained from review of the clinical record, interview of resident, staff, and direct observation of resident's care.
== END 2022-09-08 15:00 | disposition home or self-care (01) | DRG 690 ==
PROVIDERS: Admitting Provider Family Medicine Geriatric Medicine; PCP Family Medicine Geriatric Medicine; Visit Provider Family Medicine Geriatric Medicine
DX: N39.0 Urinary tract infection, site not specified (principal); K50.90 Crohn's disease, unspecified, without complications; B96.5 Pseudomonas (aeruginosa) (mallei) (pseudomallei) as the cause of diseases classified elsewhere; N18.32 Chronic kidney disease, stage 3b; J44.9 Chronic obstructive pulmonary disease, unspecified; Z93.3 Colostomy status; E87.6 Hypokalemia; E03.9 Hypothyroidism, unspecified; E53.8 Deficiency of other specified B group vitamins; E55.9 Vitamin D deficiency, unspecified; F32.A Depression, unspecified; Z87.891 Personal history of nicotine dependence; Z79.899 Other long term (current) drug therapy; Z79.890 Hormone replacement therapy; B96.89 Other specified bacterial agents as the cause of diseases classified elsewhere
CPT/HCPCS: 36415; 80048; 81001; 85025; 87086; 97110; 97116; 97162; 97166; 97530; 97535; 97802; J7050; A4216; J3420

== ENCOUNTER → 2022-09-15 | Outpatient (CLI) | payer MEDICARE, OTHER, SELFPAY ==
[2022-09-15 17:15] LABS: Absolute Lymphocyte Count 1.91 X10^3/uL (0.83-4.51); Absolute Neutrophil Count 6.2 X10^3/uL (2.0-7.7); Basophil# 0.04 X10^3/uL; Basophil% 0.4 % (0-1); Eosinophil# 0.25 X10^3/uL; Eosinophils% 2.7 % (0-5); Hematocrit 39.5 % (37-47); Hemoglobin 11.9 g/dL (12.0-15.0); Lymphocyte # 1.91 X10^3/ul (0.83-4.51); Mean Corp Hgb Conc 30.1 g/dL (32-36); Mean Corpuscular Hgb 27.7 pg (27.0-32.0); Mean Corpuscular Volume 92.1 fL (81-99); Mean Platelet Vol. 10.9 fl (6.2-12.0); Monocyte# 0.63 X10^3/uL; Monocyte% 6.9 % (0-10); NRBC Flagged by Analyzer 0 % (0-5); Neutrophil # 6.23 X10^3/uL (2.7-7.7); Neutrophil % 68.6 % (47-70); Platelet Count 235 K/mm3 (150-450); RBC Distribution Width CV 14.2 % (11.6-14.6); RBC Distribution Width SD 48.1 fl (35.1-43.9); Red Blood Count 4.29 M/mm3 (4.2-5.4); White Blood Count 9.1 K/mm3 (4.4-11.0)
[2022-09-15 18:24] LABS: Anion Gap 9 (5-15); BUN 17 mg/dL (7-18); BUN/Creat Ratio 13.6 RATIO (10-20); Calcium,Total 8.8 mg/dL (8.5-10.1); Chloride 109 mmol/L (98-107); Creatinine, Serum 1.25 mg/dL (0.55-1.02); EST Glomerular Filtration Rate 44 mL/min (>60); Est Glom Filt Rate - Afr Amer 53 mL/min (>60); Glucose 93 mg/dL (74-106); Potassium 4.2 mmol/L (3.5-5.1); Sodium Level 138 mmol/L (136-145)
== END | disposition home or self-care (01) ==
PROVIDERS: PCP Family Medicine Geriatric Medicine; Visit Provider Family Medicine Geriatric Medicine
DX: R53.81 Other malaise (principal); R19.7 Diarrhea, unspecified
CPT/HCPCS: 36415; 80048; 82274; 83630; 85025; 87077; 87086; 87088; 87177; 87186; 87209; 87493; 87506

== ENCOUNTER 2022-09-20 13:14 | Outpatient (CLI) | payer MEDICARE, OTHER, SELFPAY ==
--- NOTE | 2022-09-20 13:17 | CT_ITS ---
STUDY: CT ABDOMEN AND PELVIS WITHOUT CONTRAST REASON FOR EXAM: Female, 77 years old. RENAL INSUFFICIENCY, STONES RADIATION DOSAGE (If Supplied By Facility): CTDIvol = ( 6.10 ) mGy, DLP = ( 274.33 ) mGycm TECHNIQUE: Transaxial images were obtained from the dome of the diaphragm to the symphysis pubis without oral contrast, and without intravenous contrast. Sagittal and coronal images were reconstructed. Individualized dose optimization techniques were used for this CT. COMPARISON: Comparison is made with prior study dated 08/08/2022. FINDINGS: Stable mild linear scarring at the left lung base. Stable mild thickening of the anterior pericardium. Normal liver. Normal gallbladder and extrahepatic biliary system. Normal spleen. Normal pancreas. Normal bilateral adrenal glands. There are multiple bilateral intrarenal calculi more prominent on the right side. Mild degree right hydronephrosis and right hydroureter due to a 3 mm calculus in the distal portion of the right ureter just proximal to the ureterovesical junction. Normal visualized stomach. Normal small intestine. A colostomy is once again seen in the left lower quadrant. Anastomosis is seen in the region of the cecum. There is a large amount of fecal material in the cecum and ascending colon. The cecum measures 8.5 cm in transverse dimension. There is evidence of a pneumatosis coli in the entire colon. The appendix is visualized and appears normal. Normal abdominal aorta. Normal inferior vena cava. Normal retroperitoneum. Normal urinary bladder. Normal abdominal wall. Normal osseous structures. CT/Abdomen/Pelvis without Cont IMPRESSION: Nonobstructive bilateral intrarenal calculi. 3 mm calculus in the distal portion of the right ureter causing right hydronephrosis and right hydroureter. A colostomy seen in the left lower quadrant. Large amount of fecal material is seen in the colon. There is evidence of pneumatosis coli. Electronically Signed: Chriss Boateng MD at 14:24 EST ,
== END 2022-09-20 23:59 | disposition home or self-care (01) ==
PROVIDERS: PCP Family Medicine Geriatric Medicine; Referring Provider Urology; Visit Provider Urology
DX: N13.6 Pyonephrosis (principal); Z86.19 Personal history of other infectious and parasitic diseases
CPT/HCPCS: 36415; 74176; 80048; 81002; 85027; 87086; 87088; 87186

== ENCOUNTER → 2022-09-20 | Outpatient (CLI) | payer MEDICARE, OTHER, SELFPAY ==
[2022-09-20 12:15] LABS: Hematocrit 40.7 % (37-47); Hemoglobin 12.9 g/dL (12.0-15.0); Mean Corp Hgb Conc 31.7 g/dL (32-36); Mean Corpuscular Hgb 28.8 pg (27.0-32.0); Mean Corpuscular Volume 90.8 fL (81-99); Mean Platelet Vol. 9.7 fl (6.2-12.0); Platelet Count 303 K/mm3 (150-450); RBC Distribution Width CV 14.6 % (11.6-14.6); RBC Distribution Width SD 48.8 fl (35.1-43.9); Red Blood Count 4.48 M/mm3 (4.2-5.4); White Blood Count 11.4 K/mm3 (4.4-11.0)
[2022-09-20 12:16] LABS: Scan Indicated on CBC? Y/N NO
[2022-09-20 12:23] LABS: Anion Gap 9 (5-15); BUN 17 mg/dL (7-18); BUN/Creat Ratio 12.7 RATIO (10-20); Calcium,Total 9.1 mg/dL (8.5-10.1); Chloride 113 mmol/L (98-107); Creatinine, Serum 1.34 mg/dL (0.55-1.02); EST Glomerular Filtration Rate 41 mL/min (>60); Est Glom Filt Rate - Afr Amer 49 mL/min (>60); Glucose 106 mg/dL (74-106); Potassium 3.6 mmol/L (3.5-5.1); Sodium Level 141 mmol/L (136-145)
[2022-09-20 16:16] LABS: Color, Urine Yellow (Yellow); Glucose, Dipstick Normal (Normal); Ketone-Dipstick Negative (Negative); Leukocyte Esterase-Dipstick 100 /ul (Negative); Nitrite-Dipstick Negative (Negative); Occult Blood-Urine Negative /ul (Negative); Protein-Dipstick 15 mg/dl (Negative); Urine Bilirubin Dipstick Negative (Negative); Urine Clarity Clear (Clear); Urine Urobilinogen Normal (Normal)
== END | disposition home or self-care (01) ==
LOC: MTLAB 09:39
PROVIDERS: PCP Family Medicine Geriatric Medicine; Referring Provider Urology; Visit Provider Urology
DX: N39.0 Urinary tract infection, site not specified (principal); N13.30 Unspecified hydronephrosis; Z86.19 Personal history of other infectious and parasitic diseases
CPT/HCPCS: 36415; 80048; 81002; 85027; 87086; 87088

== ENCOUNTER → 2022-09-23 | Outpatient (CLI) | payer MEDICARE, OTHER, SELFPAY ==
[2022-09-23 15:31] LABS: Hematocrit 41.4 % (37-47); Hemoglobin 12.9 g/dL (12.0-15.0); Mean Corp Hgb Conc 31.2 g/dL (32-36); Mean Corpuscular Hgb 28.8 pg (27.0-32.0); Mean Corpuscular Volume 92.4 fL (81-99); Mean Platelet Vol. 8.7 fl (6.2-12.0); Platelet Count 328 K/mm3 (150-450); RBC Distribution Width CV 15.3 % (11.6-14.6); RBC Distribution Width SD 51.4 fl (35.1-43.9); Red Blood Count 4.48 M/mm3 (4.2-5.4)
[2022-09-23 15:40] LABS: Anion Gap 8 (5-15); BUN 21 mg/dL (7-18); BUN/Creat Ratio 12.7 RATIO (10-20); Calcium,Total 9.1 mg/dL (8.5-10.1); Chloride 114 mmol/L (98-107); Creatinine, Serum 1.66 mg/dL (0.55-1.02); EST Glomerular Filtration Rate 32 mL/min (>60); Est Glom Filt Rate - Afr Amer 39 mL/min (>60); Glucose 138 mg/dL (74-106); Sodium Level 142 mmol/L (136-145)
== END | disposition home or self-care (01) ==
LOC: MTLAB 14:26
PROVIDERS: PCP Family Medicine Geriatric Medicine; Referring Provider Urology; Visit Provider Urology
DX: N20.0 Calculus of kidney (principal); N20.1 Calculus of ureter
CPT/HCPCS: 36415; 80048; 85027; 87493

== ENCOUNTER 2022-09-26 10:40 | Day surgery (SDC) | payer MEDICARE, OTHER, SELFPAY ==
[2022-09-26 11:22] VITALS: BP 126/69; PULSE 66; RESP 18; TEMP 36.7; O2SAT 97; BMI 21.8
[2022-09-26] MEDS: Lactated Ringers 1,000 ML 15 ML IV (11:30)
--- NOTE | 2022-09-26 12:35 | CALC_PTH ---
PATIENT: JOSE DE JESUS GOLD [place] [facility] [place][id number] AGE/SX: 77/F ROOM: RE09/26/[address]: Dr. Minal Morrison MD : 1945 BED: DIS: 09/26/2022 SPEC #: [id number] RECD: 09/26/22 14:38 STATUS: ELAYNE CAR #: [id number] GABRIELE: 09/26/22 12:[address]: Minal Morrison DEPT: SURGICAL PATHOLOGY RECD BY: Lisa Garcia ENTERED: 09/27/22 09:34 SP TYPE: Calculi OTHR DR: Dr. Elliot Kang MD Tissues: CALCULI Procedures: Surgery Specimen Level I HEADER OPERATION: Cystoscopy, ureteroscopy, stent PRE-OP DIAGNOSIS: 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 calculus with hydronephrosis TISSUE SUBMITTED: Right renal calculi GROSS DIAGNOSIS Fragments of stone, clinically right renal calculi. SJ:tabby 09/28/2022 COMMENT The specimen is submitted in its entirety for chemical stone analysis. The results from this study will be reported separately. GROSS DESCRIPTION Received without fixative labeled with the patient's name and designated right renal stone. The specimen consists of three fragments of brown stone measuring in aggregate 0.8 x 0.2 x 0.1 cm. The entire specimen is submitted for stone analysis. / PHU:tabby 09/27/2022 CPT: 40912
--- NOTE | 2022-09-26 12:50 | HP.PCM_ITS ---
HPI - General HPI Narrative JOSE DE JESUS GOLD, is a 77 F who presents for surgical intervention for a right ureteral calculus with mild hydronephrosis. She has been on antibiotics for a urinary tract infection and those have been completed. She has had no fever, chills, nausea or vomiting over the weekend. Informed consent has been ob tained. [facility], [facility] Medical History (Updated 09/26/22 @ 12:[address] Minal Morrison MD) Abdominal bloating Anxiety Anxiety Arthritis Cancer Chronic bronchitis COPD (chronic obstructive pulmonary disease) COPD (chronic obstructive pulmonary disease) COPD exacerbation Crohn's disease Decreased appetite Depression Diarrhea Diarrhea Easy bruising Filling defect on imaging study Former smoker History of echocardiogram History of fracture of patella History of pain when walking History of rectal cancer History of stress test Hydronephrosis Hydronephrosis, right Hypothyroidism half-way current use of immunosuppressive drug Lung cancer Nicotine abuse Osteoporosis Rectal cancer Rectal cancer 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 calculus 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 calculus Shortness of breath on exertion Stage 3b chronic kidney disease (CKD) Thyroid disease TIA (transient ischemic attack) TIA (transient ischemic attack) Urinary retention Walker as ambulation aid Wears dentures Wears hearing aid Home Medications bupropion HCl 150 mg 24 hr tablet, extended release (Wellbutrin XL) 150 mg PO QAM quit smoking 11/28/18 [History Last Taken 12/07/21 07:30] citalopram 40 mg tablet 40 mg PO DAILY Anxiety 04/24/19 [History Last Taken 12/07/21 07:30] cyanocobalamin (vitamin B-12) 1,000 mcg/mL injection solution 100 mcg IM Q30D Supplement 10/08/19 [History Last Taken 11/18/21] cholecalciferol (vitamin D3) 25 mcg (1,000 unit) capsule (Vitamin D3) 25 mcg PO DAILY Supplement 10/09/21 [History Last Taken 11/18/21] sodium bicarbonate 650 mg tablet 650 mg PO TID 10/09/21 [History Last Taken 11/18/21] albuterol sulfate 90 mcg/actuation aerosol inhaler (Ventolin HFA) 2 puff inhalation Q4H PRN shortness of breath or wheezing #18 grams 03/31/22 [Rx Last Taken Unknown] ondansetron 4 mg disintegrating tablet 4 mg PO Q8H PRN nausea and vomiting #12 tabs 08/08/22 [Rx Last Taken Unknown] oxycodone 5 mg tablet 5 mg PO Q6H PRN pain 3 days #12 tabs 08/08/22 [Rx Last Taken Unknown] phenazopyridine 200 mg tablet (Pyridium) 200 mg PO TID PRN PRN Bladder Spasms 7 days #30 tabs 08/10/22 [Rx Last Taken Unknown] potassium chloride 20 mEq tablet,extended release 20 meq PO DAILY Supplement 08/18/22 [History Last Taken Unknown] acetaminophen 325 mg tablet (Tylenol) 650 mg PO Q4H PRN PRN Pain 1-10 Or Fever #0 tabs 08/30/22 [Rx Last Taken Unknown] levothyroxine 50 mcg tablet 50 mcg PO DAILY #0 tabs 09/06/22 [Rx Last Taken 09/26/22] cephalexin 500 mg capsule 500 mg PO TID 09/23/22 [History Last Taken Unknown] Allergy/AdvReac Type Severity Reaction Status Date / Time ciprofloxacin [From Cipro] Allergy Rash Verified 09/26/22 11:27 ciprofloxacin HCl Allergy Rash Verified 09/26/22 11:27 [From Cipro] Penicillins Allergy Hives Verified 09/26/22 11:27 codeine AdvReac makes her Verified 09/26/22 11:27 feel weird magnesium citrate AdvReac Nausea Verified 09/26/22 11:27 NSAIDS (Non-Steroidal AdvReac kidney Verified 09/26/22 11:27 Anti-Inflamma damage r/t long-term usage advised not to use Family History Father Heart disease Mother Heart disease Sister Heart disease Diabetes Surgical History History of bowel resection History of delivery History of cholecystectomy History of colonoscopy (~10/2019) History of colostomy History of cystoscopy History of hysterectomy Social History household members: none Smoking Status: Former smoker Tobacco: How many years used: 53 how long ago did patient quit smoking: Quit 2-5 years prior. second hand exposure: No alcohol intake: never substance use type: does not use caffeine: No what type of physical activity do you participate in: none ROS Constitutional Constitutional: Denies body ache(s), chills, fatigue, fever(s) or night sweats Eyes Eyes: Reports systems reviewed and no addt'l complaints, except as documented ENT HEENT: Reports systems reviewed and no addt'l complaints, except as documented Cardiovascular Cardiovascular: Reports systems reviewed and no addt'l complaints, except as documented Respiratory/Chest Respiratory/Chest: Reports shortness of breath at rest; Denies chest congestion, chest tightness or cough Gastrointestinal Gastrointestinal: Reports abdominal pain and diarrhea; Denies constipation, nausea or vomiting Genitourinary Genitourinary: Reports low back pain and urinary urgency; Denies dysuria or hematuria Musculoskeletal Musculoskeletal: Reports systems reviewed and no addt'l complaints, except as documented Integumentary Integumentary: Reports systems reviewed and no addt'l complaints, except as documented Neurologic Neurologic: Reports systems reviewed and no addt'l complaints, except as documented Psychiatric Psychiatric: Reports systems reviewed and no addt'l complaints, except as documented Endocrine Endocrinology: Reports systems reviewed and no addt'l complaints, except as documented Hematologic/Lymphatic Hematologic/Lymphatic: Reports systems reviewed and no addt'l complaints, except as documented Allergic/Immunologic Allergic/Immunologic: Reports systems reviewed and no addt'l complaints, except as documented Vital Signs Vital Signs Vital Signs: 09/26/22 11:22 09/26/22 11:22 Temperature 98.0 F Temperature Source Temporal Pulse Rate 66 Respiratory Rate 18 Respiratory Pattern Normal Blood Pressure 126/69 H Blood Pressure Mean 88 Blood Pressure Source Monitor Blood Pressure Position Semi-Fowlers Blood Pressure Location Left Arm Pulse Ox 97 Oxygen Delivery Method Room Air Weight Weight: 52.4 kg Body Mass Index (BMI) 21.8 Physical Exam Const alert, oriented x3 and no apparent distress General Appearance: cooperative, comfortable and well kempt HEENT normocephalic, head/scalp atraumatic, external ears normal, external nose normal and moist oral mucous membranes Eyes General Eye: normal appearance of both eyes Neck supple General: trachea midline Lymph Lymphatic: no lymphedema noted Chest inspection of chest normal Chest: symmetrical chest wall rise Resp normal respiratory effort, normal air movement and no retractions Cardio regular rate GI normal to inspection, nondistended, normoactive bowel sounds, soft to palpation and non-distended no CVA tenderness Extremity normal to inspection Skin no rashes or lesions noted, no wounds, skin turgor normal, no jaundice, no petechiae and no mottling Neuro oriented x3, CN's II-XII intact bilaterally and moves all extremities Psych mental status grossly normal, thought process normal and cooperative Assessment & Plan Assessment/Plan (1) 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 calculus: PLAN: Proceed with cystoscopy, right ureteroscopy with holmium laser lithotripsy, right ureteral stent insertion Her urinary tract infection has been treated with Keflex Informed consent has been obtained
--- NOTE | 2022-09-26 13:06 | PCM.OPRPT ---
Report of Operation Date of Procedure: 09/26/22 Pre-Operative Diagnosis: 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 and right renal calculi Post-Operative Diagnosis: Same Surgery/Procedure Performed:: Cystoscopy, right retrograde pyelogram, right ureteroscopy, stone basket extraction, right ureteral stent insertion Surgeon: Minal Morrison Type of Anesthesia: General Specimen's removed: Multiple renal stones Description of Procedure: The patient is a 77-year-old female with multiple stones and a history of Crohn's disease. She is currently passing a right mid ureteral calculus and there are other stones within the renal pelvis. Informed consent was obtained for surgical intervention. The patient was taken to the operating room and placed on the operating room table. Anesthesia monitored the head, neck, airway, IV access and vital signs throughout the case. Once anesthesia was appropriate ministered, the patient was placed into dorsolithotomy position was prepped and draped in usual sterile fashion. The cystoscope was inserted through the urethra under direct visualization into the urinary bladder. No foreign body was identified. No mucosal abnormality was identified. The right ureteral orifice was visualized and intubated with an 8 Estonian cone-tip catheter. Contrast was injected in retrograde fashion revealing a dilated ureter and likely filling defect in the mid to distal right ureter. The right ureteral orifice was then intubated with 2 separate 0.035 glide wires which are advanced into the renal pelvis. At this time the flexible ureteroscope was passed over one of the wires into the ureter. A small stone was visualized in the mid to distal right ureter. The ureteroscope was advanced all the way up into the renal pelvis were multiple small stones were visualized. At this time the ureteroscope was taken down the ureter and a wire was replaced. On exiting of the ureter, the right ureteral calculus was seen in the urinary bladder. At this time a ureteral access sheath was placed over one of the guidewires and one was left as a safety wire. Fluoroscopy was utilized for placement of the access sheath. The flexible ureteroscope was then passed through the sheath into the ureter and then into the renal pelvis. A stone basket was utilized to remove several small fragments which were then sent for analysis. After no further stone fragments were appreciated, aside from the ones that could be seen forming in the calyces, the ureteroscope was used to remove the access sheath under direct visualization. The cystoscope was then used for placement of a 6 Estonian 22 cm JJ stent with good positioning in the renal pelvis as well as the urinary bladder. Patient's bladder was then emptied and the case was terminated. She was awakened and taken to the recovery room in good condition. Grafts/Implants Used: 6 x 22 JJ stent Complications None Admit VTE Documentation VTE Present on Admission: Yes VTE Mechan Device Prophylaxis: SCD's VTE Pharm Prophylaxis ordered?: No Reason prophylaxis not ordered:: Treatment Not Indicated
--- NOTE | 2022-09-26 13:07 | DCINST_ITS ---
Discharge Instructions Diet Discharge Diet: No restrictions Activity Discharge Activity: Return to Normal Activity Dressing / Incision Call your doctor if you observe: Fever of 101 or Higher, Inability to urinate and Inability to have a bowel movement Follow Up Care Please Follow Up With: Minal Morrison MD When: Call office for appointment Test Results: Test results from this visit will be discussed in further detail at your follow- up appointment, if applicable. Discharge Plan Admission Attending Provider: Minal Morrison Primary Care Provider: Elliot Kang Chi Discharge Orders/Prescriptions Prescriptions: New cephalexin [cephalexin] 500 mg capsule 500 mg PO Q12 5 Days Qty: 10 0RF Continued bupropion HCl [Wellbutrin XL] 150 mg tablet extended release 24 hr 150 mg PO QAM albuterol sulfate [Ventolin HFA] 90 mcg/actuation HFA aerosol inhaler 2 puff INHALATION Q4H PRN (Reason: shortness of breath or wheezing) Qty: 18 6RF citalopram 40 MG tablet 40 mg PO DAILY cyanocobalamin (vitamin B-12) 1,000 MCG/ML solution 100 mcg IM Q30D sodium bicarbonate 650 mg tablet 650 mg PO TID cholecalciferol (vitamin D3) [Vitamin D3] 25 mcg (1,000 unit) Capsule 25 mcg PO DAILY oxycodone 5 mg tablet 5 mg PO Q6H PRN (Reason: pain) 3 Days Qty: 12 0RF ondansetron 4 mg tablet,disintegrating 4 mg PO Q8H PRN (Reason: nausea and vomiting) Qty: 12 0RF phenazopyridine [Pyridium] 200 mg tablet 200 mg PO TID PRN PRN (Reason: Bladder Spasms) 7 Days Qty: 30 0RF potassium chloride 20 mEq Tablet Extended Release 20 meq PO DAILY acetaminophen [Tylenol] 325 mg Tablet 650 mg PO Q4H PRN PRN (Reason: Pain 1-10 Or Fever) Qty: 0 0RF levothyroxine 50 mcg Tablet 50 mcg PO DAILY Qty: 0 0RF cephalexin 500 mg capsule 500 mg PO TID Label Comments: TAKE 1 CAPSULE BY MOUTH THREE TIMES DAILY Referrals / Follow Up: Elliot Kang Chi, MD [Primary Care Provider] - Disposition Disposition (needs filled in before D/C Order can be placed): Home, Self Care
[2022-09-26] MEDS: Cefazolin 2 GM in 0.9% Normal Saline 100 ML IV (13:12)
[2022-09-26 14:14] VITALS: BP 120/65; BP 126/69; PULSE 74; RESP 16; TEMP 36.7; O2SAT 99
[2022-09-26 14:30] VITALS: BP 126/69; BP 135/67; PULSE 85; RESP 16; O2SAT 97
[2022-09-26 14:45] VITALS: BP 126/69; BP 136/70; PULSE 79; RESP 16; O2SAT 97
[2022-09-26 14:50] VITALS: BP 126/69; BP 129/84; PULSE 76; RESP 16; TEMP 37.1; O2SAT 97
[2022-09-26 15:28] VITALS: BP 126/69; BP 129/77; PULSE 84; RESP 16; TEMP 36.6; O2SAT 95
[2022-10-07 15:31] LABS: Source RIGHT KIDNEY
== END 2022-09-26 15:34 | disposition home or self-care (01) ==
LOC: SDC 10:41 → AC 10:41
PROVIDERS: PCP Family Medicine Geriatric Medicine; Referring Provider Urology; Visit Provider Urology
PROC: 0TJ98ZZ Inspection of Ureter, Via Natural or Artificial Opening Endoscopic (ICD-10-PCS; CPT 52352; principal; 2022-09-26 12:25)
DX: N13.2 Hydronephrosis with renal and ureteral calculous obstruction (principal); J44.9 Chronic obstructive pulmonary disease, unspecified; N18.32 Chronic kidney disease, stage 3b; E03.9 Hypothyroidism, unspecified; Z79.890 Hormone replacement therapy; Z79.899 Other long term (current) drug therapy; Z87.891 Personal history of nicotine dependence
CPT/HCPCS: 52352; 52332; 00918; 76000; 88300; J7120; C2625

== ENCOUNTER 2022-09-27 14:13 | Inpatient (IN) | payer MEDICARE, OTHER, SELFPAY ==
[2022-09-27 14:14] VITALS: BP 101/58; PULSE 79; RESP 14; TEMP 36.2; O2SAT 96; BMI 21.7
--- NOTE | 2022-09-27 14:14 | ED.RN ---
PT MOANING AND COMPLAIN D/T WAIT.
--- NOTE | 2022-09-27 14:17 | ED.RN ---
PT SAID HURRY UP AND GET ME BACK THERE.
--- NOTE | 2022-09-27 16:14 | ED.VIS.FEGU ---
HPI HPI - Female History of Present Illness Chief Complaint: Flank Pain Detail of Chief Complaint: Chills status post right stent placement. Informant: patient and family Pain Current Severity: Mild Maximum Severity: Mild Associated Symptoms Associated Symptoms: Negative for Dysuria Narrative Narrative: 77-year-old female history of kidney stones. About 2 weeks ago she left stent placed became uroseptic afterwards need to be hospitalized for IV antibiotics and then went to the transitional care unit. Yesterday her your urologist placed a stent on the right. Today she had chills. No fever. No vomiting. She has chronic diarrhea. No dysuria. They brought her in to be evaluated. She is currently on antibiotics, Keflex 500 mg twice daily. Denies any cough or shortness of breath. No abdominal pain. 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 Lung cancer Nicotine abuse Osteoporosis Rectal cancer Rectal cancer 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 calculus 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 calculus Shortness of breath on exertion Stage 3b chronic kidney disease (CKD) Thyroid disease TIA (transient ischemic attack) TIA (transient ischemic attack) Urinary retention Walker as ambulation aid Wears dentures Wears hearing aid Home Medications bupropion HCl 150 mg 24 hr tablet, extended release (Wellbutrin XL) 150 mg PO QAM quit smoking 11/28/18 [History Last Taken 12/07/21 07:30] citalopram 40 mg tablet 40 mg PO DAILY Anxiety 04/24/19 [History Last Taken 12/07/21 07:30] cyanocobalamin (vitamin B-12) 1,000 mcg/mL injection solution 100 mcg IM Q30D Supplement 10/08/19 [History Last Taken 11/18/21] cholecalciferol (vitamin D3) 25 mcg (1,000 unit) capsule (Vitamin D3) 25 mcg PO DAILY Supplement 10/09/21 [History Last Taken 11/18/21] sodium bicarbonate 650 mg tablet 650 mg PO TID 10/09/21 [History Last Taken 11/18/21] albuterol sulfate 90 mcg/actuation aerosol inhaler (Ventolin HFA) 2 puff inhalation Q4H PRN shortness of breath or wheezing #18 grams 03/31/22 [Rx Last Taken Unknown] ondansetron 4 mg disintegrating tablet 4 mg PO Q8H PRN nausea and vomiting #12 tabs 08/08/22 [Rx Last Taken Unknown] oxycodone 5 mg tablet 5 mg PO Q6H PRN pain 3 days #12 tabs 08/08/22 [Rx Last Taken Unknown] phenazopyridine 200 mg tablet (Pyridium) 200 mg PO TID PRN PRN Bladder Spasms 7 days #30 tabs 08/10/22 [Rx Last Taken Unknown] potassium chloride 20 mEq tablet,extended release 20 meq PO DAILY Supplement 08/18/22 [History Last Taken Unknown] acetaminophen 325 mg tablet (Tylenol) 650 mg PO Q4H PRN PRN Pain 1-10 Or Fever #0 tabs 08/30/22 [Rx Last Taken Unknown] levothyroxine 50 mcg tablet 50 mcg PO DAILY #0 tabs 09/06/22 [Rx Last Taken 09/26/22] cephalexin 500 mg capsule 500 mg PO TID 09/23/22 [History Last Taken Unknown] cephalexin 500 mg capsule 500 mg PO Q12 post-operative 5 days #10 CAPSULES 09/26/22 [Rx Last Taken Unknown] Allergy/AdvReac Type Severity Reaction Status Date / Time ciprofloxacin [From Cipro] Allergy Rash Verified 09/27/22 14:14 ciprofloxacin HCl Allergy Rash Verified 09/27/22 14:14 [From Cipro] Penicillins Allergy Hives Verified 09/27/22 14:14 codeine AdvReac makes her Verified 09/27/22 14:14 feel weird magnesium citrate AdvReac Nausea Verified 09/27/22 14:14 NSAIDS (Non-Steroidal AdvReac kidney Verified 09/27/22 14:14 Anti-Inflamma damage r/t long-term usage advised not to use Family History Father Heart disease Mother Heart disease Sister Heart disease Diabetes Surgical History History of bowel resection History of delivery History of cholecystectomy History of colonoscopy (~10/2019) History of colostomy History of cystoscopy History of hysterectomy Social History household members: none Smoking Status: Former smoker Tobacco: How many years used: 53 how long ago did patient quit smoking: Quit 2-5 years prior. second hand exposure: No alcohol intake: never substance use type: does not use caffeine: No what type of physical activity do you participate in: none ROS ROS ED ROS Narrative Chills. No fever. Review of Systems ROS Unobtainable: Denies due to encephalopathy Constitutional Constitutional ED: Reports chills; Denies fever(s) Eyes Eyes: Denies blurry vision ENT ENT ED: Denies ear pain Cardiovascular Cardiovascular: Denies chest pain Respiratory/Chest Respiratory/Chest: Denies cough or dyspnea Gastrointestinal Gastrointestinal: Denies abdominal pain Genitourinary Genitourinary ED: Denies dysuria or hematuria Musculoskeletal Musculoskeletal: Denies arthralgias Integumentary Denies abscess Neurologic Neurologic: Denies headache(s) Psychiatric Psychiatric: Denies anxiety Endocrine Endocrinology: Denies heat intolerance Hematologic/Lymphatic Hematologic/Lymphatic: Denies easy bleeding Allergic/Immunologic Allergic/Immunologic ED: Denies mouth swelling or tongue swelling EXAM Physical Exam Narrative Exam Narrative: 77-year-old female vital signs stable afebrile. Patient does not look septic toxic. No acute distress. H EENT exam unremarkable. Neck nontender. Lungs clear to auscultation. Heart regular rhythm no murmur. Abdomen soft nontender. Moving all 4 extremities. Back nontender. Neurologically she is awake and alert. Patient does not look septic or toxic. She clinically does not look dehydrated. Const Vital Signs: 09/27/22 14:14 09/27/22 16:24 Temperature 97.2 F L Temperature Source Temporal Pulse Rate 79 Respiratory Rate 14 Respiratory Effort Normal Non-Labored Blood Pressure 101/58 L Blood Pressure Mean 72 Pulse Ox 96 Oxygen Delivery Method Room Air Positive well nourished and well developed; Negative for obese, cachectic, contractures or unkempt General Appearance ED: well developed and NAD; Negative for unkempt, cachectic, contractures, odor of alcohol detected or pallor Nutritional Appearance: Negative for cachectic or obese HEENT Reports moist mucous membranes Negative for trauma or tenderness Eyes PERRL and EOMs intact bilaterally General Eye ED: Negative for pale conjunctiva or scleral icterus Neck no lymphadenopathy, supple and no JVD General: Negative for other Thyroid: Negative for tender Lymph Lymphatic: Negative for other Chest Wall inspection of chest normal and palpation of chest normal Chest: Negative for other Resp normal respiratory effort and clear to auscultation bilaterally Effort and Inspection: Negative for pain with movement Auscultation: Negative for rales, rhonchi or wheezes Cardio regular rate, regular rhythm, S1 normal heart sound, no murmurs and no JVD Rate: Negative for bradycardia or tachycardic Rhythm: Negative for abnormal rhythm GI normal to inspection, nondistended, normoactive bowel sounds, soft to palpation, non-tender, non-distended and no masses Auscultation: normoactive bowel sounds Palpation: Negative for tender, guarding, rigid or hepatomegaly Back/Spine no CVA tenderness General Back: Negative for CVA tenderness Cervical Spine: Negative for cervical spine tenderness Thoracic Spine / Upper Back: Negative for thoracic spinal tenderness Lumbar Spine / Lower Back: Negative for lumbar spinal tenderness Sacrum: Negative for other Extremity normal to inspection and full ROM General Extremety ED: Negative for edema General Extremity: Negative for edema Neuro oriented x3 and CN's II-XII intact bilaterally Sensorium / Orientation: alert, oriented to person, oriented to place and oriented to time; Negative for confused, lethargic or stuporous Motor Exam: strength 5/5 throughout; Negative for general weakness or strength abnormal Psych mental status grossly normal Appearance: Negative for unkempt Attitude: No agitated Speech: No other Mood & Affect: Negative for depressed, anxious or tearful Skin no rashes or lesions noted and no wounds General Skin Exam: Negative for jaundice or pallor Rashes: No rashes noted Trauma: Negative for other MDM MDM MDM Narrative Medical decision making narrative: 77-year-old female flank pain after right ureteral stent. Screening labs and UA will be obtained. She does not anything currently for pain or nausea. She does not look dehydrated. Repeat exam patient was treated morphine and Zofran. She will be started on Zosyn IV. I spoke to her urologist Dr. Gaviota Reaves was in the emergency department. Patient will be admitted to the hospitalist with a consult to urology and general surgery. She will be started on IV Zosyn. She appears to have a urinary tract infection. Surgery can evaluate the patient for the pneumatosis intestinalis. Lab Data Attestation: I reviewed the patient's lab results. Lab results narrative: CBC shows a white count of 30,800. H&H 12.8 and 39. Chemistries potassium 3.4 gap of 11 BUN 25 creatinine 1.71. Glucose 121. KUB shows right ureteral stent in position. Large amount of stool consistent with constipation. Pneumatosis intestinalis less which was seen on her recent CT. urinalysis looks infected with nitrates and leukocyte Estrace. Awaiting the microscopic. Urine culture be sent. Labs: Laboratory Results - last 24 hr 09/27/22 09/27/22 09/27/22 16:00 16:00 17:06 WBC 30.8 H* RBC 4.41 Hgb 12.8 Hct 39.0 MCV 88.4 MCH 29.0 MCHC 32.8 D RDW Std Deviation 51.4 H RDW Coeff of Osmar 15.8 H Plt Count 223 MPV 8.4 Immature Gran % (Auto) 0.700 Neut % (Auto) 89.9 H Lymph % (Auto) 3.7 L [place] % (Auto) 5.5 Eos % (Auto) 0.1 Baso % (Auto) 0.1 Absolute Neuts (auto) 27.7 H Absolute Lymphs (auto) 1.15 Nucleated RBC % 0 Diff Path Review May foll Platelet Estimate ADEQUATE RBC Morphology N CHROM Anisocytosis RARE Macrocytosis RARE Ovalocytes RARE Sodium 138 Potassium 3.4 L Chloride 110 H Carbon Dioxide 17.0 L Anion Gap 11 BUN 25 H Creatinine 1.71 H Estim Creat Clear Calc 20.79 Est GFR (MDRD) Af Amer 37 L Est GFR (MDRD) Non-Af 31 L BUN/Creatinine Ratio 14.6 Glucose 121 H Calcium 9.0 Urine Color Milly Urine Clarity Sl. Cloudy Urine pH 6.0 Ur Specific [place] 1.010 Urine Protein 100 H Urine Glucose (UA) Normal Urine Ketones Negative Urine Occult Blood 250 H Urine Nitrite Positive H Urine Bilirubin 3 H Urine Urobilinogen 4 H Ur Leukocyte Esterase 500 H Radiography Diagnostic Testing: Clinical Impression(s) from Imaging Studies KUB X-Ray 09/27/22 16:25 IMPRESSION: 1. Bilateral nephrolithiasis. 2. 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 Electronically Signed: Torey Yeung MD at 16:41 EST , KUB, single view interpreted by myself and radiologist shows right stent in normal position. Increased stool burden consistent with constipation. Pneumatosis intestinalis which was seen on prior CT. Discharge Plan Triage Chief Complaint: Flank Pain ED Provider: Maldonado Tong Dx/Rx/DC Orders Clinical Impression: Acute flank pain, Acute UTI, Leukocytosis, Pneumatosis intestinalis Prescriptions: No Action bupropion HCl [Wellbutrin XL] 150 mg tablet extended release 24 hr 150 mg PO QAM albuterol sulfate [Ventolin HFA] 90 mcg/actuation HFA aerosol inhaler 2 puff INHALATION Q4H PRN (Reason: shortness of breath or wheezing) Qty: 18 6RF citalopram 40 MG tablet 40 mg PO DAILY cyanocobalamin (vitamin B-12) 1,000 MCG/ML solution 100 mcg IM Q30D sodium bicarbonate 650 mg tablet 650 mg PO TID cholecalciferol (vitamin D3) [Vitamin D3] 25 mcg (1,000 unit) Capsule 25 mcg PO DAILY oxycodone 5 mg tablet 5 mg PO Q6H PRN (Reason: pain) 3 Days Qty: 12 0RF ondansetron 4 mg tablet,disintegrating 4 mg PO Q8H PRN (Reason: nausea and vomiting) Qty: 12 0RF phenazopyridine [Pyridium] 200 mg tablet 200 mg PO TID PRN PRN (Reason: Bladder Spasms) 7 Days Qty: 30 0RF potassium chloride 20 mEq Tablet Extended Release 20 meq PO DAILY acetaminophen [Tylenol] 325 mg Tablet 650 mg PO Q4H PRN PRN (Reason: Pain 1-10 Or Fever) Qty: 0 0RF levothyroxine 50 mcg Tablet 50 mcg PO DAILY Qty: 0 0RF cephalexin 500 mg capsule 500 mg PO TID Label Comments: TAKE 1 CAPSULE BY MOUTH THREE TIMES DAILY cephalexin [cephalexin] 500 mg capsule 500 mg PO Q12 5 Days Qty: 10 0RF Primary Care Provider: Elliot Kang Chi Referrals: Jorge Luis,Elliot Chi, MD [Primary Care Provider] - Disposition Disposition: Acute Care Hospital [facility]
--- NOTE | 2022-09-27 16:25 | RAD_ITS ---
EXAM: XR ABDOMEN, 1 VIEW CLINICAL INDICATION: check renal stent placement TECHNIQUE: Frontal supine view of the abdomen/pelvis. This report was created using SlideBatch report generation technology. COMPARISON: CT abdomen and pelvis September 20, 2022 FINDINGS: LOWER THORAX: No acute pathology. GASTROINTESTINAL TRACT: Diffuse pneumatosis intestinalis involving the left side of the colon is again noted. Moderate stool burden within the large bowel. ORGANS: Small right renal calcifications. Left renal calcifications obscured by overlying bowel. BONES/JOINTS: No acute abnormality. SOFT TISSUES: No pathological calcification. TUBES, LINES AND DEVICES: A right-sided double-J ureteral stent catheters in place. RAD/Abdomen Single View IMPRESSION: 1. Bilateral nephrolithiasis. 2. 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 Electronically Signed: Torey Yeung MD at 16:41 EST ,
[2022-09-27 16:31] LABS: Absolute Lymphocyte Count 1.15 X10^3/uL (0.83-4.51); Absolute Neutrophil Count 27.7 X10^3/uL (2.0-7.7); Basophil# 0.03 X10^3/uL; Basophil% 0.1 % (0-1); Eosinophil# 0.02 X10^3/uL; Eosinophils% 0.1 % (0-5); Hemoglobin 12.8 g/dL (12.0-15.0); Lymphocyte # 1.15 X10^3/ul (0.83-4.51); Lymphocyte % 3.7 % (19-41); Mean Corp Hgb Conc 32.8 g/dL (32-36); Mean Corpuscular Volume 88.4 fL (81-99); Mean Platelet Vol. 8.4 fl (6.2-12.0); Monocyte# 1.69 X10^3/uL; Monocyte% 5.5 % (0-10); NRBC Flagged by Analyzer 0 % (0-5); Neutrophil # 27.73 X10^3/uL (2.7-7.7); Neutrophil % 89.9 % (47-70); POSITIVE COUNT YES; POSITIVE DIFFERENTIAL YES; Platelet Count 223 K/mm3 (150-450); RBC Distribution Width CV 15.8 % (11.6-14.6); RBC Distribution Width SD 51.4 fl (35.1-43.9); Red Blood Count 4.41 M/mm3 (4.2-5.4)
[2022-09-27 16:38] LABS: Differential Indicated SCAN CRITERIA MET
[2022-09-27 16:54] LABS: Anion Gap 11 (5-15); BUN 25 mg/dL (7-18); BUN/Creat Ratio 14.6 RATIO (10-20); Chloride 110 mmol/L (98-107); Creatinine, Serum 1.71 mg/dL (0.55-1.02); EST Glomerular Filtration Rate 31 mL/min (>60); Est Glom Filt Rate - Afr Amer 37 mL/min (>60); Estimated Creatinine Clearance 20.79 ml/min; Glucose 121 mg/dL (74-106); Potassium 3.4 mmol/L (3.5-5.1); Sodium Level 138 mmol/L (136-145)
[2022-09-27 16:57] LABS: White Blood Count 30.8 K/mm3 (4.4-11.0)
[2022-09-27 17:10] LABS: Bacteria 0 SEEN /hpf (None Seen); Mucous, Urine 0 SEEN /hpf (<or=2+)
[2022-09-27 17:11] LABS: Anisocytosis RARE; Macrocytosis RARE; Ovalocyte RARE; Platelet Estimate ADEQUATE (ADEQ); Red Cell Morphology N CHROM NORMAL (NORM C&C)
[2022-09-27 17:28] LABS: Color, Urine Amber (Yellow); Glucose, Dipstick Normal (Normal); Ketone-Dipstick Negative (Negative); Leukocyte Esterase-Dipstick 500 /ul (Negative); Nitrite-Dipstick Positive (Negative); Occult Blood-Urine 250 /ul (Negative); Protein-Dipstick 100 mg/dl (Negative); Urine Bilirubin Dipstick 3 mg/dL (Negative); Urine Clarity Sl. Cloudy (Clear); Urine Urobilinogen 4 mg/dl (Normal)
[2022-09-27] MEDS: Ondansetron 4 MG/2 ML Vial IV (17:29)
[2022-09-27] MEDS: Morphine 4 MG/ML Syringe IV (17:29)
[2022-09-27] MEDS: 0.9% Normal Saline 1,000 ML 999 ML IV (17:30)
[2022-09-27 18:05] VITALS: BP 109/53; PULSE 86; RESP 18; TEMP 37.1; O2SAT 98
--- NOTE | 2022-09-27 18:08 | PCM.CONS.GEN ---
Assessment & Plan Assessment/Plan (1) Acute UTI: (2) Leukocytosis: (3) Kidney stones: (4) Pneumatosis intestinalis: PLAN: Plan Antibiotics, fluid resuscitation, Gallagher catheter, continue ureteral stent Await urine and blood cultures The patient will be admitted to medicine service Further evaluation for pneumatosis intestinalis HPI Consult Data Date of Consult: 09/27/22 HPI Narrative HPI Narrative: JOSE DE JESUS GOLD, is a 77 F who I sent to the emergency room this afternoon after developing chills following a ureteroscopy yesterday. She is also complaining of leg pain and weakness. She has a history of sepsis after a previous ureteroscopy. She also has a history of Crohn's disease and continuing diarrhea. She has not been having nausea or vomiting. No fevers at home. Pain has been controlled from a surgical standpoint. 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 Lung cancer Nicotine abuse Osteoporosis Rectal cancer Rectal cancer 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 calculus 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 calculus Shortness of breath on exertion Stage 3b chronic kidney disease (CKD) Thyroid disease TIA (transient ischemic attack) TIA (transient ischemic attack) Urinary retention Walker as ambulation aid Wears dentures Wears hearing aid Home Medications bupropion HCl 150 mg 24 hr tablet, extended release (Wellbutrin XL) 150 mg PO QAM quit smoking 11/28/18 [History Last Taken 12/07/21 07:30] citalopram 40 mg tablet 40 mg PO DAILY Anxiety 04/24/19 [History Last Taken 12/07/21 07:30] cyanocobalamin (vitamin B-12) 1,000 mcg/mL injection solution 100 mcg IM Q30D Supplement 10/08/19 [History Last Taken 11/18/21] cholecalciferol (vitamin D3) 25 mcg (1,000 unit) capsule (Vitamin D3) 25 mcg PO DAILY Supplement 10/09/21 [History Last Taken 11/18/21] sodium bicarbonate 650 mg tablet 650 mg PO TID 10/09/21 [History Last Taken 11/18/21] albuterol sulfate 90 mcg/actuation aerosol inhaler (Ventolin HFA) 2 puff inhalation Q4H PRN shortness of breath or wheezing #18 grams 03/31/22 [Rx Last Taken Unknown] ondansetron 4 mg disintegrating tablet 4 mg PO Q8H PRN nausea and vomiting #12 tabs 08/08/22 [Rx Last Taken Unknown] oxycodone 5 mg tablet 5 mg PO Q6H PRN pain 3 days #12 tabs 08/08/22 [Rx Last Taken Unknown] phenazopyridine 200 mg tablet (Pyridium) 200 mg PO TID PRN PRN Bladder Spasms 7 days #30 tabs 08/10/22 [Rx Last Taken Unknown] potassium chloride 20 mEq tablet,extended release 20 meq PO DAILY Supplement 08/18/22 [History Last Taken Unknown] acetaminophen 325 mg tablet (Tylenol) 650 mg PO Q4H PRN PRN Pain 1-10 Or Fever #0 tabs 08/30/22 [Rx Last Taken Unknown] cephalexin 500 mg capsule 500 mg PO Q12 post-operative 5 days #10 CAPSULES 09/26/22 [Rx Last Taken Unknown] levothyroxine 50 mcg tablet 50 mcg PO DAILY thyroid 09/27/22 [History Last Taken 09/27/22] Allergy/AdvReac Type Severity Reaction Status Date / Time ciprofloxacin [From Cipro] Allergy Rash Verified 09/27/22 14:14 ciprofloxacin HCl Allergy Rash Verified 09/27/22 14:14 [From Cipro] Penicillins Allergy Hives Verified 09/27/22 14:14 codeine AdvReac makes her Verified 09/27/22 14:14 feel weird magnesium citrate AdvReac Nausea Verified 09/27/22 14:14 NSAIDS (Non-Steroidal AdvReac kidney Verified 09/27/22 14:14 Anti-Inflamma damage r/t long-term usage advised not to use Family History Father Heart disease Mother Heart disease Sister Heart disease Diabetes Surgical History History of bowel resection History of delivery History of cholecystectomy History of colonoscopy (~10/2019) History of colostomy History of cystoscopy History of hysterectomy Social History household members: none Smoking Status: Former smoker Tobacco: How many years used: 53 how long ago did patient quit smoking: Quit 2-5 years prior. second hand exposure: No alcohol intake: never substance use type: does not use caffeine: No what type of physical activity do you participate in: none ROS Constitutional Constitutional: Reports chills, fatigue and weakness; Denies fever(s) or night sweats Eyes Eyes: Reports systems reviewed and no addt'l complaints, except as documented ENT HEENT: Reports systems reviewed and no addt'l complaints, except as documented Cardiovascular Cardiovascular: Reports abdominal bloating, dyspnea on exertion and fatigue; Denies chest pain, leg edema, nausea or vomiting Respiratory/Chest Respiratory/Chest: Denies cough or dyspnea Gastrointestinal Gastrointestinal: Reports bloating, cramping and diarrhea; Denies nausea or vomiting Genitourinary Genitourinary: Reports urinary incontinence; Denies dysuria, hematuria or urinary hesitancy Musculoskeletal Musculoskeletal: Reports muscle weakness Integumentary Integumentary: Reports systems reviewed and no addt'l complaints, except as documented Neurologic Neurologic: Reports systems reviewed and no addt'l complaints, except as documented Psychiatric Psychiatric: Reports systems reviewed and no addt'l complaints, except as documented Endocrine Endocrinology: Reports systems reviewed and no addt'l complaints, except as documented Hematologic/Lymphatic Hematologic/Lymphatic: Reports systems reviewed and no addt'l complaints, except as documented Allergic/Immunologic Allergic/Immunologic: Reports systems reviewed and no addt'l complaints, except as documented Physical Exam Const alert, oriented x3 and no apparent distress General Appearance: cooperative, comfortable and well kempt HEENT normocephalic, head/scalp atraumatic and external nose normal HEENT Narrative: She is hard of hearing and does not currently have her hearing aids in Eyes General Eye: normal appearance of both eyes Neck supple General: normal visual inspection and trachea midline Lymph Lymphatic: no lymphedema noted Chest inspection of chest normal Chest: symmetrical chest wall rise Resp normal respiratory effort, normal air movement and no retractions Effort and Inspection: able to speak in complete sentences and symmetric chest movement Cardio regular rate GI soft to palpation, non-tender and non-distended Narrative: Currently no Gallagher catheter in place Bladder / Kidney Exam: No CVA tenderness Back/Spine no CVA tenderness Extremity normal to inspection Skin no rashes or lesions noted Neuro oriented x3, CN's II-XII intact bilaterally and moves all extremities Psych mental status grossly normal and thought process normal Lab / Micro Data Result Diagrams: 09/27/22 16:00 09/27/22 16:00 Labs: Laboratory Results - last 24 hr 09/27/22 16:00: WBC 30.8 H*, RBC 4.41, Hgb 12.8, Hct 39.0, MCV 88.4, MCH 29.0, MCHC 32.8 D, RDW Std Deviation 51.4 H, RDW Coeff of Osmar 15.8 H, Plt Count 223, MPV 8.4, Immature Gran % (Auto) 0.700, Neut % (Auto) 89.9 H, Lymph % (Auto) 3.7 L, [place] % (Auto) 5.5, Eos % (Auto) 0.1, Baso % (Auto) 0.1, Absolute Neuts (auto) 27.7 H, Absolute Lymphs (auto) 1.15, Nucleated RBC % 0, Diff Path Review May foll, Platelet Estimate ADEQUATE, RBC Morphology N CHROM, Anisocytosis RARE, Macrocytosis RARE, Ovalocytes RARE 09/27/22 16:00: Sodium 138, Potassium 3.4 L, Chloride 110 H, Carbon Dioxide 17.0 L, Anion Gap 11, BUN 25 H, Creatinine 1.71 H, Estim Creat Clear Calc 20.79, Est GFR (MDRD) Af Amer 37 L, Est GFR (MDRD) Non-Af 31 L, BUN/Creatinine Ratio 14.6, Glucose 121 H, Calcium 9.0 09/27/22 17:06: Urine Color Milly, Urine Clarity Sl. Cloudy, Urine pH 6.0, Ur Specific [place] 1.010, Urine Protein 100 H, Urine Glucose (UA) Normal, Urine Ketones Negative, Urine Occult Blood 250 H, Urine Nitrite Positive H, Urine Bilirubin 3 H, Urine Urobilinogen 4 H, Ur Leukocyte Esterase 500 H Radiology Impression KUB X-Ray 09/27/22 16:25 IMPRESSION: 1. Bilateral nephrolithiasis. 2. 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 Electronically Signed: Torey Yeung MD at 16:41 EST ,
[2022-09-27 18:20] LABS: Red Blood Cells-Urine 50-100 SEEN /hpf (0-5); Squamous Epithelial Cells - UA 0-5 SEEN /hpf (5-10); White Blood Cells 50-100 SEEN /hpf (0-5)
[2022-09-27] MEDS: Ceftriaxone 1 GM/50 ML BAG IV (18:31)
[2022-09-27] MEDS: morphine 8 MG/ML Syringe 6 MG IV (18:38)
[2022-09-27 19:22] VITALS: BMI 22.3
[2022-09-27 19:30] VITALS: BP 106/61; PULSE 88; RESP 18; TEMP 38.2; O2SAT 96
--- NOTE | 2022-09-27 19:50 | PCM.HP.STD ---
[facility] - General General Date of Admission: 09/27/22 Date of Service: 09/27/22 Chief Complaint: Bilateral flank pain, chills, bilateral upper leg pain HPI Nichelle GOLD, is a 77 F who presents to the emergency room at [facility] with complaints of chills which started today along with bilateral flank pain and dull pain in her upper legs. Patient underwent insertion of a right ureteral stent yesterday due to hydronephrosis and multiple stones. She had been hospitalized previously in August for sepsis after a stent in her left ureter was removed. Patient underwent a CT scan on 09/20/2022 which showed nonobstructive bilateral intrarenal calculi, a 3 mm calculus in the distal portion of the right ureter causing right hydronephrosis and right hydroureter, and also evidence of pneumatosis coli with a large amount of fecal material seen in the intestine. Patient underwent a stent placement in the right ureter yesterday with removal of several stones, today KUB was done in the emergency room which showed again pneumatosis coli and bilateral nephrolithiasis. Labs were performed which showed an elevated white blood cell count at 30.8, chemistry panel showed a creatinine of 1.71, potassium was 3.4, and urinalysis showed 50-100 RBCs and 5200 WBCs with positive nitrite. Urology was contacted and requested hospital medicine to admit the patient, general surgery was consulted and the case was discussed with them () and Dr. Tomlinson was consulted-the case was discussed with him by phone and he requested that the patient be prepped for another CT with oral contrast which he said he would order in the morning. Patient will be admitted to [place] [address] for acute pyelonephritis, she will be placed on IV meropenem, due to a possibility of C. difficile (daughter states that she has been tested multiple times for C. difficile but is never been positive) I have decided to place the patient on oral vancomycin. Patient will be given IV fluids, she will be seen in consultation also by urology tomorrow. 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 Lung cancer Nicotine abuse Osteoporosis Rectal cancer Rectal cancer 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 calculus 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 calculus Shortness of breath on exertion Stage 3b chronic kidney disease (CKD) Thyroid disease TIA (transient ischemic attack) TIA (transient ischemic attack) Urinary retention Walker as ambulation aid Wears dentures Wears hearing aid Home Medications bupropion HCl 150 mg 24 hr tablet, extended release (Wellbutrin XL) 150 mg PO QAM quit smoking 11/28/18 [History Last Taken 09/27/22] citalopram 40 mg tablet 40 mg PO DAILY Anxiety 04/24/19 [History Last Taken 09/27/22] cyanocobalamin (vitamin B-12) 1,000 mcg/mL injection solution 100 mcg IM Q30D Supplement 10/08/19 [History Last Taken 09/08/22] cholecalciferol (vitamin D3) 25 mcg (1,000 unit) capsule (Vitamin D3) 25 mcg PO DAILY Supplement 10/09/21 [History Last Taken 09/27/22] sodium bicarbonate 650 mg tablet 650 mg PO TID supplement 10/09/21 [History Last Taken 09/27/22] albuterol sulfate 90 mcg/actuation aerosol inhaler (Ventolin HFA) 2 puff inhalation Q4H PRN shortness of breath or wheezing #18 grams 03/31/22 [Rx Last Taken 2 Weeks Ago ~09/13/22] ondansetron 4 mg disintegrating tablet 4 mg PO Q8H PRN nausea and vomiting #12 tabs 08/08/22 [Rx Last Taken Unknown] oxycodone 5 mg tablet 5 mg PO Q6H PRN pain 3 days #12 tabs 08/08/22 [Rx Last Taken 09/27/22] phenazopyridine 200 mg tablet (Pyridium) 200 mg PO TID PRN PRN Bladder Spasms 7 days #30 tabs 08/10/22 [Rx Last Taken 09/27/22] potassium chloride 20 mEq tablet,extended release 20 meq PO DAILY Supplement 08/18/22 [History Last Taken 09/27/22] acetaminophen 325 mg tablet (Tylenol) 650 mg PO Q4H PRN PRN Pain 1-10 Or Fever #0 tabs 08/30/22 [Rx Last Taken Unknown] cephalexin 500 mg capsule 500 mg PO Q12 post-operative 5 days #10 CAPSULES 09/26/22 [Rx Last Taken 09/27/22] levothyroxine 50 mcg tablet 50 mcg PO DAILY thyroid 09/27/22 [History Last Taken 09/27/22] Allergy/AdvReac Type Severity Reaction Status Date / Time ciprofloxacin [From Cipro] Allergy Rash Verified 09/27/22 14:14 ciprofloxacin HCl Allergy Rash Verified 09/27/22 14:14 [From Cipro] Penicillins Allergy Hives Verified 09/27/22 14:14 codeine AdvReac makes her Verified 09/27/22 14:14 feel weird magnesium citrate AdvReac Nausea Verified 09/27/22 14:14 NSAIDS (Non-Steroidal AdvReac kidney Verified 09/27/22 14:14 Anti-Inflamma damage r/t long-term usage advised not to use Family History Father Heart disease Mother Heart disease Sister Heart disease Diabetes Surgical History History of bowel resection History of delivery History of cholecystectomy History of colonoscopy (~10/2019) History of colostomy History of cystoscopy History of hysterectomy Social History household members: none Smoking Status: Former smoker Tobacco: How many years used: 53 how long ago did patient quit smoking: Quit 2-5 years prior. second hand exposure: No alcohol intake: never substance use type: does not use caffeine: No what type of physical activity do you participate in: none ROS Constitutional Constitutional: Reports chills; Denies anorexia, change in weight, fever(s), night sweats or weakness Eyes Eyes: Denies blurry vision, change in vision, discharge from eye(s) or eye pain ENT HEENT: Denies abnormal hearing or dysphagia Cardiovascular Cardiovascular: Denies chest pain, claudication, dyspnea on exertion, edema, lightheadedness or palpitations Respiratory/Chest Respiratory/Chest: Denies cough, dyspnea, excessive phlegm production, hemoptysis, productive cough, shortness of breath at rest or shortness of breath with exertion Gastrointestinal Gastrointestinal: Reports other Details: Patient denies any abdominal pain at this time, patient has an ileostomy and always has loose stools ; Denies abdominal pain, constipation, hematemesis, hematochezia, melena, nausea or vomiting Genitourinary Genitourinary: Denies dysuria, hematuria, urinary frequency, urinary hesitancy, urinary incontinence or urinary urgency Musculoskeletal Musculoskeletal: Denies back pain, joint pain, joint stiffness, joint swelling, myalgias or neck pain Neurologic Neurologic: Denies abnormal gait, abnormal speech, dizziness, focal weakness, headache(s), loss of vision, numbness, other visual disturbances, paresthesias, syncope or tingling Psychiatric Psychiatric: Denies anxiety, cognitive impairment, depression, irritability, mood swings or suicidal ideation Endocrine Endocrinology: Denies change in body appearance, cold intolerance, excessive sweating, heat intolerance, polydipsia or polyuria Hematologic/Lymphatic Hematologic/Lymphatic: Denies none, anemia, easy bleeding, easy bruising or lymphadenopathy Allergic/Immunologic Allergic/Immunologic: Denies rhinitis, urticaria, eczemia or asthma Vital Signs Vital Signs Vital Signs: 09/27/22 14:14 09/27/22 16:24 09/27/22 18:05 Temperature 97.2 F L 98.8 F Temperature Source Temporal Oral Pulse Rate 79 86 Respiratory Rate 14 18 Respiratory Effort Normal Non-Labored Blood Pressure 101/58 L 109/53 L Blood Pressure Mean 72 71 Blood Pressure Source Blood Pressure Position Blood Pressure Location Pulse Ox 96 98 Oxygen Delivery Method Room Air Room Air 09/27/22 18:05 09/27/22 19:30 Temperature 98.8 F 100.8 F H Temperature Source Oral Temporal Pulse Rate 86 88 Respiratory Rate 18 18 Respiratory Effort Blood Pressure 109/53 L 106/61 Blood Pressure Mean 71 76 Blood Pressure Source Monitor Blood Pressure Position Semi-Fowlers Blood Pressure Location Left Arm Pulse Ox 98 96 Oxygen Delivery Method Room Air Room Air Weight Weight: 53.6 kg Body Mass Index (BMI) 22.3 Physical Exam Const alert, oriented x3 and no apparent distress Constitutional Narrative: Patient appears frail, she appears in no distress, she does not appear toxic General Appearance: cooperative, well kempt and well developed Orientation / Consciousness: awake, oriented to person, oriented to place and oriented to time HEENT normocephalic and moist oral mucous membranes Eyes PERRL, EOMs intact bilaterally and conjunctivae normal Neck supple, no JVD, thyroid normal and no carotid bruits General: trachea midline Resp normal respiratory effort, no retractions, no use of accessory muscles and clear to auscultation bilaterally Auscultation: Negative for rales, rhonchi or wheezes Cardio regular rate, regular rhythm, S1 normal heart sound, S2 normal heart sound, no murmurs, no rub and no gallops GI soft to palpation and non-tender GI Narrative: Abdomen is tympanic, it is nontender, there is an ileostomy in place, bowel sounds are present Extremity no clubbing, cyanosis or edema Skin no rashes or lesions noted General Skin Exam: no breakdown Neuro oriented x3, CN's II-XII intact bilaterally, moves all extremities, no focal motor deficits and no sensory deficits noted Sensorium / Orientation: awake and alert Speech: speech normal Psych affect normal Results Lab / Micro Data Result Diagrams: 09/27/22 16:00 09/27/22 16:00 Labs: Laboratory Results - last 24 hr 09/27/22 16:00: WBC 30.8 H*, RBC 4.41, Hgb 12.8, Hct 39.0, MCV 88.4, MCH 29.0, MCHC 32.8 D, RDW Std Deviation 51.4 H, RDW Coeff of Osmar 15.8 H, Plt Count 223, MPV 8.4, Immature Gran % (Auto) 0.700, Neut % (Auto) 89.9 H, Lymph % (Auto) 3.7 L, [place] % (Auto) 5.5, Eos % (Auto) 0.1, Baso % (Auto) 0.1, Absolute Neuts (auto) 27.7 H, Absolute Lymphs (auto) 1.15, Nucleated RBC % 0, Diff Path Review May foll, Platelet Estimate ADEQUATE, RBC Morphology N CHROM, Anisocytosis RARE, Macrocytosis RARE, Ovalocytes RARE 09/27/22 16:00: Sodium 138, Potassium 3.4 L, Chloride 110 H, Carbon Dioxide 17.0 L, Anion Gap 11, BUN 25 H, Creatinine 1.71 H, Estim Creat Clear Calc 20.79, Est GFR (MDRD) Af Amer 37 L, Est GFR (MDRD) Non-Af 31 L, BUN/Creatinine Ratio 14.6, Glucose 121 H, Calcium 9.0 09/27/22 17:06: Urine Color Milly, Urine Clarity Sl. Cloudy, Urine pH 6.0, Ur Specific [place] 1.010, Urine Protein 100 H, Urine Glucose (UA) Normal, Urine Ketones Negative, Urine Occult Blood 250 H, Urine Nitrite Positive H, Urine Bilirubin 3 H, Urine Urobilinogen 4 H, Ur Leukocyte Esterase 500 H, Urine RBC 50-100 SEEN, Urine WBC 50-100 SEEN, Ur Squamous Epith Cells 0-5 SEEN, Urine Bacteria 0 SEEN, Urine Mucus 0 SEEN Radiology Impression KUB X-Ray 09/27/22 16:25 IMPRESSION: 1. Bilateral nephrolithiasis. 2. 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 Electronically Signed: Torey Yeung MD at 16:41 EST , Assessment & Plan Assessment/Plan (1) Acute flank pain: PLAN: Plan 1. Acute pyelonephritis-associated with recent stent placement in the right ureter-patient will be admitted to [facility] 3, she will be placed on meropenem IV, I will have nursing obtain blood cultures and urine culture if they have not been obtained in the emergency room. Urology will see the patient in consultation (Dr. Morrison). #2 pneumatosis coli-etiology unclear at this point, patient will be seen by general surgery and GI, I have elected to place the patient on p.o. vancomycin and get a C. difficile on her stool. GI has requested that the patient take a bowel prep and have a repeat CT of the abdomen and pelvis done tomorrow, GI told me that they would be ordering this imaging study to make sure she was cleaned out before the study is ordered. #3 leukocytosis-secondary to #1, there is a possibility patient could also have C. difficile infection, again I will place the patient on oral vancomycin in addition to her IV antibiotics #4 Crohn's disease-according to GI this may not be active at this point, GI will see the patient in consultation (Dr. Tomlinson) #5 COPD-patient will remain on her home medications #6 hypothyroidism-patient is on Synthroid #7 chronic anxiety-patient is on citalopram I have talked extensively with patient's daughters who are in the room at the time my examination and also all the consultants in this case. Charges/Coding Visit Charges Inpatient E&M: 47864 Init Hosp L3
[2022-09-27 20:36] LABS: Lactic Acid 3.7 mmol/L (0.4-1.9)
--- NOTE | 2022-09-27 20:39 | CON.PCM.SX_ITS ---
Assessment & Plan Assessment/Plan (1) Pneumatosis intestinalis: (2) Leukocytosis: (3) Acute UTI: (4) Loose stools: PLAN: Plan Reviewed CT a/p from 09/20 and KUB from today-agree with finding of pneumatosis of colon; however, pt denies abd pain and has no pain on exam. Per pt daughters- pt also had no abd pain with her kidney stones- thus, she has a very high pain tolerance. Unsure of exact etiology of pneumatosis but currently vitals are stable and will continue abx- meropenem per primary, which will cover both UTI and any possible bowel etiology. Pt end colostomy is pink with yellowish stool in bag. Dr. Tomlinson with GI also consulted. Will continue to follow. Sofie Yates M.D. Pager: [phone] [facility] [address] [place] [address], Outpatient Pavilion, [address] [place] [id number] Office: [phone] HPI Consult Data Date of Consult: 09/28/22 HPI Narrative HPI Narrative: JOSE DE JESUS GOLD, is a 77 F who presents the ER due to back pain/lower abdominal pain and some upper thigh pain. Patient does have a complex medical history with a more recent stay with sepsis due to UTI and kidney stones. Patient's white blood count on admission was 30. Patient currently denies any abdominal pain, does have a left lower quadrant loop colostomy due to rectal cancer and has had a small bowel resection due to radiation injury previously. Patient is accompanied by her daughters. Patient and daughter state that she has had increased gas more recently as well as diarrhea from her colostomy and will occasionally have stool from her rectum as well. Patient's last colonoscopy was in December of this year by Dr. Tomlinson, patient was newly diagnosed with Crohn's disease. Patient had a recent CT abdomen pelvis on 09/20/2022 which did show some pneumatosis of the colon. Patient had a KUB in the ER which again showed the pneumatosis mostly of the left colon today. Patient's daughter states that patient typically starts these issues with increased gas and diarrhea. Patient states that her stool became more normal while she was in the hospital and IV antibiotics last time but as soon as she went home he went back to the diarrhea. 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 Lung cancer Nicotine abuse Osteoporosis Rectal cancer Rectal cancer 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 calculus 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 calculus Shortness of breath on exertion Stage 3b chronic kidney disease (CKD) Thyroid disease TIA (transient ischemic attack) TIA (transient ischemic attack) Urinary retention Walker as ambulation aid Wears dentures Wears hearing aid Home Medications bupropion HCl 150 mg 24 hr tablet, extended release (Wellbutrin XL) 150 mg PO QAM quit smoking 11/28/18 [History Last Taken 09/27/22] citalopram 40 mg tablet 40 mg PO DAILY Anxiety 04/24/19 [History Last Taken 09/27/22] cyanocobalamin (vitamin B-12) 1,000 mcg/mL injection solution 100 mcg IM Q30D Supplement 10/08/19 [History Last Taken 09/08/22] cholecalciferol (vitamin D3) 25 mcg (1,000 unit) capsule (Vitamin D3) 25 mcg PO DAILY Supplement 10/09/21 [History Last Taken 09/27/22] sodium bicarbonate 650 mg tablet 650 mg PO TID supplement 10/09/21 [History Last Taken 09/27/22] albuterol sulfate 90 mcg/actuation aerosol inhaler (Ventolin HFA) 2 puff inhalation Q4H PRN shortness of breath or wheezing #18 grams 03/31/22 [Rx Last Taken 2 Weeks Ago ~09/13/22] ondansetron 4 mg disintegrating tablet 4 mg PO Q8H PRN nausea and vomiting #12 tabs 08/08/22 [Rx Last Taken Unknown] oxycodone 5 mg tablet 5 mg PO Q6H PRN pain 3 days #12 tabs 08/08/22 [Rx Last Taken 09/27/22] phenazopyridine 200 mg tablet (Pyridium) 200 mg PO TID PRN PRN Bladder Spasms 7 days #30 tabs 08/10/22 [Rx Last Taken 09/27/22] potassium chloride 20 mEq tablet,extended release 20 meq PO DAILY Supplement 08/18/22 [History Last Taken 09/27/22] acetaminophen 325 mg tablet (Tylenol) 650 mg PO Q4H PRN PRN Pain 1-10 Or Fever #0 tabs 08/30/22 [Rx Last Taken Unknown] cephalexin 500 mg capsule 500 mg PO Q12 post-operative 5 days #10 CAPSULES 09/26/22 [Rx Last Taken 09/27/22] levothyroxine 50 mcg tablet 50 mcg PO DAILY thyroid 09/27/22 [History Last Taken 09/27/22] Allergy/AdvReac Type Severity Reaction Status Date / Time ciprofloxacin [From Cipro] Allergy Rash Verified 09/27/22 14:14 ciprofloxacin HCl Allergy Rash Verified 09/27/22 14:14 [From Cipro] Penicillins Allergy Hives Verified 09/27/22 14:14 codeine AdvReac makes her Verified 09/27/22 14:14 feel weird magnesium citrate AdvReac Nausea Verified 09/27/22 14:14 NSAIDS (Non-Steroidal AdvReac kidney Verified 09/27/22 14:14 Anti-Inflamma damage r/t long-term usage advised not to use Family History Father Heart disease Mother Heart disease Sister Heart disease Diabetes Surgical History History of bowel resection History of delivery History of cholecystectomy History of colonoscopy (~10/2019) History of colostomy History of cystoscopy History of hysterectomy Social History household members: none Smoking Status: Former smoker Tobacco: How many years used: 53 how long ago did patient quit smoking: Quit 2-5 years prior. second hand exposure: No alcohol intake: never substance use type: does not use caffeine: No what type of physical activity do you participate in: none ROS Constitutional Constitutional: Reports chills Eyes Eyes: Denies change in vision ENT HEENT: Denies dysphagia Cardiovascular Cardiovascular: Denies chest pain Respiratory/Chest Respiratory/Chest: Denies cough Gastrointestinal Gastrointestinal: Reports abdominal pain and diarrhea; Denies vomiting Genitourinary Genitourinary: Denies dysuria Musculoskeletal Musculoskeletal: Reports systems reviewed and no addt'l complaints, except as documented Integumentary Integumentary: Denies rash Neurologic Neurologic: Denies focal weakness Psychiatric Psychiatric: Denies depression Hematologic/Lymphatic Hematologic/Lymphatic: Denies easy bleeding Physical Exam Const alert, oriented x3 and no apparent distress HEENT normocephalic and head/scalp atraumatic Resp normal respiratory effort Cardio regular rate GI soft to palpation and non-distended GI Narrative: LLQ colostomy- pink with yellowish loose stool in bag. Palpation: Negative for tender or guarding Extremity no clubbing, cyanosis or edema Neuro CN's II-XII intact bilaterally Psych mental status grossly normal Lab / Micro Data Result Diagrams: 09/28/22 06:15 09/28/22 06:15 Labs: Laboratory Results - last 24 hr 09/27/22 16:00: WBC 30.8 H*, RBC 4.41, Hgb 12.8, Hct 39.0, MCV 88.4, MCH 29.0, MCHC 32.8 D, RDW Std Deviation 51.4 H, RDW Coeff of Osmar 15.8 H, Plt Count 223, MPV 8.4, Immature Gran % (Auto) 0.700, Neut % (Auto) 89.9 H, Lymph % (Auto) 3.7 L, [place] % (Auto) 5.5, Eos % (Auto) 0.1, Baso % (Auto) 0.1, Absolute Neuts (auto) 27.7 H, Absolute Lymphs (auto) 1.15, Nucleated RBC % 0, Diff Path Review March oll, Platelet Estimate ADEQUATE, RBC Morphology N CHROM, Anisocytosis RARE, Macrocytosis RARE, Ovalocytes RARE 09/27/22 16:00: Sodium 138, Potassium 3.4 L, Chloride 110 H, Carbon Dioxide 17.0 L, Anion Gap 11, BUN 25 H, Creatinine 1.71 H, Estim Creat Clear Calc 20.79, Est GFR (MDRD) Af Amer 37 L, Est GFR (MDRD) Non-Af 31 L, BUN/Creatinine Ratio 14.6, Glucose 121 H, Calcium 9.0 09/27/22 17:06: Urine Color Milly, Urine Clarity Sl. Cloudy, Urine pH 6.0, Ur Specific [place] 1.010, Urine Protein 100 H, Urine Glucose (UA) Normal, Urine Ketones Negative, Urine Occult Blood 250 H, Urine Nitrite Positive H, Urine Bilirubin 3 H, Urine Urobilinogen 4 H, Ur Leukocyte Esterase 500 H, Urine RBC 50-100 SEEN, Urine WBC 50-100 SEEN, Ur Squamous Epith Cells 0-5 SEEN, Urine Bacteria 0 SEEN, Urine Mucus 0 SEEN 09/27/22 19:58: Lactic Acid 3.7 H* Radiology Impression KUB X-Ray 09/27/22 16:25 IMPRESSION: 1. Bilateral nephrolithiasis. 2. 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 Electronically Signed: Torey Yeung MD at 16:41 EST , Charges/Coding Visit Charges Inpatient E&M: 54338 Init Hosp L3
[2022-09-27] MEDS: KCL 20MEQ in 0.9% NS 20 MEQ/1,000 ML IV.SOLN. 125 MEQ IV (21:51)
[2022-09-27] MEDS: Electrolyte Solution/Peg's 4000 ML PO (21:56)
[2022-09-27] MEDS: oxyCODONE 5 MG Tablet PO (22:15)
[2022-09-27] MEDS: Acetaminophen 325 MG Tablet 650 MG PO (22:16)
[2022-09-27] MEDS: Sodium Bicarbonate 650 MG Tablet PO (22:32)
[2022-09-27] MEDS: Heparin Injection (Vial) 5,000 UNIT/ML VIAL 5000 UNIT SC (22:32)
[2022-09-27] MEDS: Vancomycin 125 MG/5 ML Susp PO.SYRINGE PO (23:14)
[2022-09-28] VITALS (10 sets, daily range): BP systolic 102–117; BP diastolic 53–72; PULSE 76–84; RESP 16–18; TEMP 36.8–37.3; O2SAT 93–97
[2022-09-28 00:04] LABS: Reflex Lactate? Y
[2022-09-28] MEDS: oxyCODONE 5 MG Tablet PO ×2 (04:37→14:26)
[2022-09-28] MEDS: Acetaminophen 325 MG Tablet 650 MG PO ×3 (04:38→14:26)
[2022-09-28] MEDS: Sodium Bicarbonate 650 MG Tablet PO ×2 (04:57→14:25)
[2022-09-28] MEDS: Levothyroxine 50 MCG Tablet PO (04:57)
[2022-09-28] MEDS: Vancomycin 125 MG/5 ML Susp PO.SYRINGE PO (04:57)
[2022-09-28] MEDS: KCL 20MEQ in 0.9% NS 20 MEQ/1,000 ML IV.SOLN. 125 MEQ IV ×3 (04:58→22:08)
[2022-09-28 06:48] LABS: Absolute Lymphocyte Count 1.18 X10^3/uL (0.83-4.51); Absolute Neutrophil Count 36.1 X10^3/uL (2.0-7.7); Basophil# 0.08 X10^3/uL; Basophil% 0.2 % (0-1); Eosinophil# 0.04 X10^3/uL; Eosinophils% 0.1 % (0-5); Hemoglobin 12.8 g/dL (12.0-15.0); Lymphocyte # 1.18 X10^3/ul (0.83-4.51); Mean Corpuscular Hgb 29.6 pg (27.0-32.0); Mean Corpuscular Volume 92.6 fL (81-99); Monocyte# 1.47 X10^3/uL; Monocyte% 3.7 % (0-10); NRBC Flagged by Analyzer 0 % (0-5); Neutrophil # 36.09 X10^3/uL (2.7-7.7); Neutrophil % 91.7 % (47-70); POSITIVE COUNT YES; POSITIVE DIFFERENTIAL YES; Platelet Count 166 K/mm3 (150-450); RBC Distribution Width CV 15.9 % (11.6-14.6); Red Blood Count 4.32 M/mm3 (4.2-5.4)
[2022-09-28 07:04] LABS: Differential Indicated SCAN CRITERIA MET; White Blood Count 39.4 K/mm3 (4.4-11.0)
[2022-09-28 07:13] LABS: Differential Comment SCANNED
[2022-09-28 07:19] LABS: Anion Gap 11 (5-15); BUN 23 mg/dL (7-18); BUN/Creat Ratio 13.2 RATIO (10-20); Calcium,Total 7.5 mg/dL (8.5-10.1); Chloride 109 mmol/L (98-107); Creatinine, Serum 1.74 mg/dL (0.55-1.02); EST Glomerular Filtration Rate 30 mL/min (>60); Est Glom Filt Rate - Afr Amer 37 mL/min (>60); Estimated Creatinine Clearance 20.43 ml/min; Glucose 93 mg/dL (74-106); Potassium 3.6 mmol/L (3.5-5.1); Sodium Level 136 mmol/L (136-145)
--- NOTE | 2022-09-28 07:31 | PCM.PN.HOSP ---
Subjective Subjective Follow-up for acute pyelonephritis, right-sided hydronephroureter Admitted with fever and chills and bilateral flank pain. Objective Data Objective Data Vital Signs: Vital Signs Temp Pulse Resp BP Pulse Ox O2 Del Method 98.8 F 78 16 102/64 94 Room Air 09/28/22 02:56 09/28/22 02:56 09/28/22 02:56 09/28/22 02:56 09/28/22 02:56 09/28/22 02:56 Oxygen Delivery Method Room Air Weight: 118 lb 2.684 oz Body Mass Index (BMI) 22.3 Intake & Output: Intake and Output for Last 24 Hours 09/26/22 09/27/22 09/28/22 23:59 23:59 23:59 Intake Total 1200 / 1200 1009.58 / 1009.58 Output Total 1000 / 1000 Balance 1200 / 950 9.58 / 9.58 Lab / Micro Data Result Diagrams: 09/28/22 06:15 09/28/22 06:15 Labs: Laboratory Results - last 24 hr 09/27/22 16:00: WBC 30.8 H*, RBC 4.41, Hgb 12.8, Hct 39.0, MCV 88.4, MCH 29.0, MCHC 32.8 D, RDW Std Deviation 51.4 H, RDW Coeff of Osmar 15.8 H, Plt Count 223, MPV 8.4, Immature Gran % (Auto) 0.700, Neut % (Auto) 89.9 H, Lymph % (Auto) 3.7 L, Morton % (Auto) 5.5, Eos % (Auto) 0.1, Baso % (Auto) 0.1, Absolute Neuts (auto) 27.7 H, Absolute Lymphs (auto) 1.15, Nucleated RBC % 0, Diff Path Review May foll, Platelet Estimate ADEQUATE, RBC Morphology N CHROM, Anisocytosis RARE, Macrocytosis RARE, Ovalocytes RARE 09/27/22 16:00: Sodium 138, Potassium 3.4 L, Chloride 110 H, Carbon Dioxide 17.0 L, Anion Gap 11, BUN 25 H, Creatinine 1.71 H, Estim Creat Clear Calc 20.79, Est GFR (MDRD) Af Amer 37 L, Est GFR (MDRD) Non-Af 31 L, BUN/Creatinine Ratio 14.6, Glucose 121 H, Calcium 9.0 09/27/22 17:06: Urine Color Milly, Urine Clarity Sl. Cloudy, Urine pH 6.0, Ur Specific [place] 1.010, Urine Protein 100 H, Urine Glucose (UA) Normal, Urine Ketones Negative, Urine Occult Blood 250 H, Urine Nitrite Positive H, Urine Bilirubin 3 H, Urine Urobilinogen 4 H, Ur Leukocyte Esterase 500 H, Urine RBC 50-100 SEEN, Urine WBC 50-100 SEEN, Ur Squamous Epith Cells 0-5 SEEN, Urine Bacteria 0 SEEN, Urine Mucus 0 SEEN 09/27/22 19:58: Lactic Acid 3.7 H* 09/28/22 00:30: Lactic Acid 2.0 09/28/22 06:15: WBC 39.4 H*, RBC 4.32, Hgb 12.8, Hct 40.0, MCV 92.6, MCH 29.6, MCHC 32.0, RDW Std Deviation 54.0 H, RDW Coeff of Osmar 15.9 H, Plt Count 166, MPV 9.0, Immature Gran % (Auto) 1.300 H, Neut % (Auto) 91.7 H, Lymph % (Auto) 3.0 L, Morton % (Auto) 3.7, Eos % (Auto) 0.1, Baso % (Auto) 0.2, Absolute Neuts (auto) 36.1 H, Absolute Lymphs (auto) 1.18, Nucleated RBC % 0, Differential Comment SCANNED, Diff Path Review March foll 09/28/22 06:15: Sodium 136, Potassium 3.6, Chloride 109 H, Carbon Dioxide 16.0 L, Anion Gap 11, BUN 23 H, Creatinine 1.74 H, Estim Creat Clear Calc 20.43, Est GFR (MDRD) Af Amer 37 L, Est GFR (MDRD) Non-Af 30 L, BUN/Creatinine Ratio 13.2, Glucose 93, Calcium 7.5 L Micro: Microbiology 09/28/22 01:30 Stool C. difficile DNA Amplification - Final Radiography Diagnostic Testing: Radiology Impression KUB X-Ray 09/27/22 16:25 IMPRESSION: 1. Bilateral nephrolithiasis. 2. 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 Electronically Signed: Torey Yeung MD at 16:41 EST , Physical Exam Narrative Seen and examined. Patient has multiple medical problems including Crohn's disease, rectal cancer with end colostomy, lung adenocarcinoma status post right upper lobectomy. She quit smoking about 4?5 years ago. Started smoking at the age of 19. A pack per day. She also has bilateral thigh pain. She states he might have neuropathy due to chemotherapy. Bilateral flank pain with radiation to thigh are progressive. Thigh. General: Alert, Oriented x3, Cooperative HEENT: Atraumatic, PERRLA, EOMI, Normocephalic Oral: No Gingival or Mucosal Lesions/ Ulcerations Neck: Supple, No JVD, Negative Carotid Bruits Lungs: Air entry diminished in bilateral lung bases. No crepitation/rhonchi Cardiovascular: Regular rate, Regular Rhythm, Normal S1, Normal S2, No murmurs Abdomen: Bowel Sounds Present, left 1 liquid greenish stool. soft, Non Tender, Non-Distended : Bilateral flank tenderness, left more than right. No suprapubic tenderness. Extremities: No edema, Capillary Refill Less than 3 Seconds Skin: No rashes, No breakdown Musculoskeletal: No Tenderness to Palpation of Joints or Extremities Neurological: Cranial nerves II-XII grossly intact, DTR 2+/4, weakness in both legs, left more than right. Left 4/5 right thigh knee joints. Right 4+/5. Psych/Mental Status: Flat affect, starts crying. Assessment & Plan Assessment/Plan (1) Acute flank pain: PLAN: Plan 77-year-old female was admitted with fever chills and bilateral flank pain with history of kidney stones. No fever or vomiting. No burning micturition. Left ureteric stent removal subsequently she went into septic shock and admitted in ICU discharged to TCU. At that time she had a gram-negative bacteremia with Pseudomonas and Citrobacter 1. Acute pyelonephritis-associated with recent stent placement in the right ureter: Patient was admitted MedSurg floor. Her creatinine is chronically elevated on baseline 1.74. Baseline creatinine is about 1.65-1.70. Do not think patient looks toxic or sick or labs suggestive of endorgan dysfunction. Patient has lactic acidosis. Continue IV meropenem. ID consult Blood and urine culture has been ordered. Urologist is consulted. patient will be admitted to [facility], she will be placed on meropenem IV, I will have nursing obtain blood cultures and urine culture if they have not been obtained in the emergency room. Urologist, (Dr. Morrison) is consulted. #2 pneumatosis coli-etiology unclear at this point, general surgery and GI are consulted. Stool for C. difficile PCR negative. Enteric bacteriology panel ordered. GI has requested that the patient take a bowel prep and have a repeat CT of the abdomen and pelvis. GI will order the imaging study as she will need plain x-ray to clear the contrast before CT abdomen. #3 leukocytosis-secondary to acute pyelonephritis: The patient has leukocytosis 39,000. #4 Crohn's disease-according to GI this may not be active at this point, GI will see the patient in consultation (Dr. Tomlinson) Status post colostomy #5 COPD with history of adenocarcinoma of lung status post left upper lobectomy continue-patient will remain on her home medications #6 hypothyroidism-patient is on Synthroid #7 chronic anxiety-patient is on citalopram Total time of the visit including total time spent in counseling or coordination of care, (more than 50% of the total time, spent in obtaining medical information from nurses and other ancillary care providers,explaining to the patient about labs, imaging, diagnosis and management of active complex medical conditions), discussion with consultants ID, GI and surgery, chart review pertaining to multiple complex medical problems, medical decision-making, review of labs and imaging is 45 minutes. Charges/Coding Visit Charges Inpatient E&M: 09970 Subs Hosp L3
[2022-09-28] MEDS: buPROPion (XL) 150 MG TABLET.XL PO (09:55)
[2022-09-28] MEDS: Citalopram 40 MG TABLET PO (09:55)
[2022-09-28] MEDS: Heparin Injection (Vial) 5,000 UNIT/ML VIAL 5000 UNIT SC ×2 (09:56→22:08)
[2022-09-28 10:21] LABS: AST(SGOT) 17 U/L (15-37); Alanine Aminotransfer ALT/SGPT 17 U/L (13-56); Albumin, Serum 2.5 g/dL (3.2-5.0); Alkaline Phosphatase 80 U/L (45-117); Bilirubin, Direct 0.37 mg/dL (0.00-0.30); Globulin 3.5 g/dL (2.2-4.2)
[2022-09-28 11:08] LABS: International Normalized Ratio 1.4; Prothrombin Time (Protime)PT. 17.2 SECONDS (11.7-14.9)
[2022-09-28 11:09] LABS: Partial Thromboplast Time 29.9 Seconds (24.1-36.2)
--- NOTE | 2022-09-28 11:19 | RAD_ITS ---
HISTORY: wbc. TECHNIQUE: XR Abdomen 1 View. COMPARISON: Prior day. FINDINGS: BOWEL GAS PATTERN: Multiple dilated small bowel loops in the midabdomen. Pneumatosis of the left colon again noted . FREE AIR: Not assessed on supine view. OTHER: Right double-J ureteral stent again seen. RAD/Abdomen Single View (Portable) IMPRESSION: Multiple dilated small bowel loops concerning for small bowel obstruction. Persistent pneumatosis of the left colon. Electronically Signed: Mgada Jiménez MD at 12:05 EST ,
--- NOTE | 2022-09-28 11:22 | PN.URO_ITS ---
Subjective Subjective Having some flank pain this morning. Completed the bowel prep and awaiting CT to be done. No nausea, no chills. Objective Data Objective Data Alert and oriented x3, in no acute distress Abdomen is soft nontender Urine is concentrated, color evidence of Pyridium Vital Signs: Vital Signs Temp Pulse Resp BP Pulse Ox O2 Del Method 98.6 F 78 18 116/53 L 93 Room Air 09/28/22 08:15 09/28/22 08:15 09/28/22 08:15 09/28/22 08:15 09/28/22 08:15 09/28/22 08:15 Oxygen Delivery Method Room Air Weight: 53.6 kg Body Mass Index (BMI) 22.3 Intake & Output: Intake and Output for Last 24 Hours 09/26/22 09/27/22 09/28/22 23:59 23:59 23:59 Intake Total 1200 / 1200 1009.58 / 1009.58 Output Total 2350 / 2350 Balance 1200 / 950 -1340.42 / -1340.42 Lab / Micro Data Attestation: I reviewed the patient's lab results. Result Diagrams: 09/28/22 06:15 09/28/22 06:15 Labs: Laboratory Results - last 24 hr 09/27/22 16:00: WBC 30.8 H*, RBC 4.41, Hgb 12.8, Hct 39.0, MCV 88.4, MCH 29.0, MCHC 32.8 D, RDW Std Deviation 51.4 H, RDW Coeff of Osmar 15.8 H, Plt Count 223, MPV 8.4, Immature Gran % (Auto) 0.700, Neut % (Auto) 89.9 H, Lymph % (Auto) 3.7 L, [place] % (Auto) 5.5, Eos % (Auto) 0.1, Baso % (Auto) 0.1, Absolute Neuts (auto) 27.7 H, Absolute Lymphs (auto) 1.15, Nucleated RBC % 0, Diff Path Review May , Platelet Estimate ADEQUATE, RBC Morphology N CHROM, Anisocytosis RARE, Macrocytosis RARE, Ovalocytes RARE 09/27/22 16:00: Sodium 138, Potassium 3.4 L, Chloride 110 H, Carbon Dioxide 17.0 L, Anion Gap 11, BUN 25 H, Creatinine 1.71 H, Estim Creat Clear Calc 20.79, Est GFR (MDRD) Af Amer 37 L, Est GFR (MDRD) Non-Af 31 L, BUN/Creatinine Ratio 14.6, Glucose 121 H, Calcium 9.0 09/27/22 17:06: Urine Color Milly, Urine Clarity Sl. Cloudy, Urine pH 6.0, Ur Specific [place] 1.010, Urine Protein 100 H, Urine Glucose (UA) Normal, Urine Ketones Negative, Urine Occult Blood 250 H, Urine Nitrite Positive H, Urine Bilirubin 3 H, Urine Urobilinogen 4 H, Ur Leukocyte Esterase 500 H, Urine RBC 50-100 SEEN, Urine WBC 50-100 SEEN, Ur Squamous Epith Cells 0-5 SEEN, Urine Bacteria 0 SEEN, Urine Mucus 0 SEEN 09/27/22 19:58: Lactic Acid 3.7 H* 09/28/22 00:30: Lactic Acid 2.0 09/28/22 06:15: WBC 39.4 H*, RBC 4.32, Hgb 12.8, Hct 40.0, MCV 92.6, MCH 29.6, MCHC 32.0, RDW Std Deviation 54.0 H, RDW Coeff of Osmar 15.9 H, Plt Count 166, MPV 9.0, Immature Gran % (Auto) 1.300 H, Neut % (Auto) 91.7 H, Lymph % (Auto) 3.0 L, [place]idan % (Auto) 3.7, Eos % (Auto) 0.1, Baso % (Auto) 0.2, Absolute Neuts (auto) 36.1 H, Absolute Lymphs (auto) 1.18, Nucleated RBC % 0, Differential Comment SCANNED, Diff Path Review March09/28/22 06:15: Sodium 136, Potassium 3.6, Chloride 109 H, Carbon Dioxide 16.0 L , Anion Gap 11, BUN 23 H, Creatinine 1.74 H, Estim Creat Clear Calc 20.43, Est GFR (MDRD) Af Amer 37 L, Est GFR (MDRD) Non-Af 30 L, BUN/Creatinine Ratio 13.2, Glucose 93, Calcium 7.5 L 09/28/22 06:15: Total Bilirubin 0.90, Direct Bilirubin 0.37 H, AST 17, ALT 17, Alkaline Phosphatase 80, Total Protein 6.0 L, Albumin 2.5 L, Globulin 3.5 09/28/22 10:39: PT 17.2 H, INR 1.4, APTT 29.9 Micro: Microbiology 09/28/22 01:30 Stool C. difficile DNA Amplification - Final Radiography Diagnostic Testing: Radiology Impression KUB X-Ray 09/27/22 16:25 IMPRESSION: 1. Bilateral nephrolithiasis. 2. 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 Electronically Signed: Torey Yeung MD at 16:41 EST , Assessment & Plan Assessment/Plan (1) Kidney stones: (2) Acute UTI: (3) Leukocytosis: (4) Pneumatosis intestinalis: PLAN: Plan Continue supportive care Await CT results Continue antibiotics and await culture results Consider infectious disease consult
--- NOTE | 2022-09-28 12:05 | CASEMGMT ---
RN NATALEE Readmission note: Prior admission: Admitted 08/26/22 for sepsis and discharged to TCU 08/30/22 for IV atb administration. Current admission: Admitted 09/27/22 from home w/acute pyelonephritis. RN NATALEE to room to meet w/pt. Introduced self and role. Pt's dtr's, Jessica and Coco, @ bedside. Pt states she discharged home alone from TCU 09/08 and states had been doing really well @ home. She states she has been taking her medications as prescribed and has f/u with both Dr Kang and Dr Morrison since discharge from TCU. She reports she is having some weakness @ home. Discussed discharge planning. She states she would prefer to return home, if able, but if she would need IV atb's @ discharge or if she is too weak to safely return home alone, then she would like to return to [facility]. Pt's daughter states, if [facility] unable to accept her, then [facility] would be 2nd choice. Milly MAYFIELD, and RN NATALEE, Mirna, made aware. Pt also stated, if she returns home, she is not interested in C d/t issues with getting colostomy supplies when she has had [facility] in the past. Yissel SOTON RICHARD ALBRIGHT
--- NOTE | 2022-09-28 12:11 | PN.SURG_ITS ---
Subjective Subjective Patient currently denies any abdominal pain. Patient did complete a bowel prep for her CT scan today. Patient's white blood counts 39 from 30. ID is consulted and patient is on meropenem Objective Data Objective Data Vital Signs: Vital Signs Temp Pulse Resp BP Pulse Ox O2 Del Method 98.6 F 78 18 116/53 L 93 Room Air 09/28/22 08:15 09/28/22 08:15 09/28/22 08:15 09/28/22 08:15 09/28/22 08:15 09/28/22 08:15 Oxygen Delivery Method Room Air Weight: 118 lb 2.684 oz Body Mass Index (BMI) 22.3 Intake & Output: Intake and Output for Last 24 Hours 09/26/22 09/27/22 09/28/22 23:59 23:59 23:59 Intake Total 1200 / 1200 1009.58 / 1009.58 Output Total 2350 / 2350 Balance 1200 / 950 -1340.42 / -1340.42 Lab / Micro Data Result Diagrams: 09/28/22 06:15 09/28/22 06:15 Labs: Laboratory Results - last 24 hr 09/27/22 16:00: WBC 30.8 H*, RBC 4.41, Hgb 12.8, Hct 39.0, MCV 88.4, MCH 29.0, MCHC 32.8 D, RDW Std Deviation 51.4 H, RDW Coeff of Osmar 15.8 H, Plt Count 223, MPV 8.4, Immature Gran % (Auto) 0.700, Neut % (Auto) 89.9 H, Lymph % (Auto) 3.7 L, Christian % (Auto) 5.5, Eos % (Auto) 0.1, Baso % (Auto) 0.1, Absolute Neuts (auto) 27.7 H, Absolute Lymphs (auto) 1.15, Nucleated RBC % 0, Diff Path Review May foll, Platelet Estimate ADEQUATE, RBC Morphology N CHROM, Anisocytosis RARE, Macrocytosis RARE, Ovalocytes RARE 09/27/22 16:00: Sodium 138, Potassium 3.4 L, Chloride 110 H, Carbon Dioxide 17.0 L, Anion Gap 11, BUN 25 H, Creatinine 1.71 H, Estim Creat Clear Calc 20.79, Est GFR (MDRD) Af Amer 37 L, Est GFR (MDRD) Non-Af 31 L, BUN/Creatinine Ratio 14.6, Glucose 121 H, Calcium 9.0 09/27/22 17:06: Urine Color Milly, Urine Clarity Sl. Cloudy, Urine pH 6.0, Ur Specific [place] 1.010, Urine Protein 100 H, Urine Glucose (UA) Normal, Urine Ketones Negative, Urine Occult Blood 250 H, Urine Nitrite Positive H, Urine Bilirubin 3 H, Urine Urobilinogen 4 H, Ur Leukocyte Esterase 500 H, Urine RBC 50-100 SEEN, Urine WBC 50-100 SEEN, Ur Squamous Epith Cells 0-5 SEEN, Urine Bacteria 0 SEEN, Urine Mucus 0 SEEN 09/27/22 19:58: Lactic Acid 3.7 H* 09/28/22 00:30: Lactic Acid 2.0 09/28/22 06:15: WBC 39.4 H*, RBC 4.32, Hgb 12.8, Hct 40.0, MCV 92.6, MCH 29.6, MCHC 32.0, RDW Std Deviation 54.0 H, RDW Coeff of Osmar 15.9 H, Plt Count 166, MPV 9.0, Immature Gran % (Auto) 1.300 H, Neut % (Auto) 91.7 H, Lymph % (Auto) 3.0 L, Christian % (Auto) 3.7, Eos % (Auto) 0.1, Baso % (Auto) 0.2, Absolute Neuts (auto) 36.1 H, Absolute Lymphs (auto) 1.18, Nucleated RBC % 0, Differential Comment SCANNED, Diff Path Review March09/28/22 06:15: Sodium 136, Potassium 3.6, Chloride 109 H, Carbon Dioxide 16.0 L , Anion Gap 11, BUN 23 H, Creatinine 1.74 H, Estim Creat Clear Calc 20.43, Est GFR (MDRD) Af Amer 37 L, Est GFR (MDRD) Non-Af 30 L, BUN/Creatinine Ratio 13.2, Glucose 93, Calcium 7.5 L 09/28/22 06:15: Total Bilirubin 0.90, Direct Bilirubin 0.37 H, AST 17, ALT 17, Alkaline Phosphatase 80, Total Protein 6.0 L, Albumin 2.5 L, Globulin 3.5 09/28/22 10:39: PT 17.2 H, INR 1.4, APTT 29.9 Micro: Microbiology 09/27/22 17:06 Urine, Clean Catch Urine Culture - Preliminary Gram negative usha 09/28/22 01:30 Stool C. difficile DNA Amplification - Final Radiography Diagnostic Testing: Radiology Impression KUB X-Ray 09/27/22 16:25 IMPRESSION: 1. Bilateral nephrolithiasis. 2. 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 Electronically Signed: Torey Yeung MD at 16:41 EST , KUB X-Ray 09/28/22 11:19 IMPRESSION: Multiple dilated small bowel loops concerning for small bowel obstruction. Persistent pneumatosis of the left colon. Electronically Signed: Magda Jiménez MD at 12:05 EST , Physical Exam Const oriented x3 and no apparent distress Resp normal respiratory effort Cardio regular rate GI soft to palpation and non-tender GI Narrative: Left lower quadrant loop colostomy?pink with yellowish stool in bag Inspection: abdominal distention Assessment & Plan Assessment/Plan (1) Pneumatosis intestinalis: (2) Leukocytosis: (3) Acute UTI: (4) Loose stools: PLAN: Plan Await CT abdomen pelvis. GI and ID consulted. No current acute surgical intervention planned-continue IV antibiotics Sofie Yates M.D. Pager: [phone] [facility] [address] [place] [address], [facility], [address] [place] [address] Office: [phone] Charges/Coding Visit Charges Inpatient E&M: 01843 Subs Hosp L2
--- NOTE | 2022-09-28 12:31 | CT_ITS ---
ACR Level 3 findings have been noted. An addendum which confirms receipt of the report will follow. HISTORY: bacteremia. TECHNIQUE: Helically acquired images were obtained of the chest, abdomen, and pelvis after the intravenous administration of 100 mL Isovue 300 and Gastrografin by mouth. 2-D reformatted images provided. A radiation dose optimization technique was used for this scan. 1244 images. COMPARISON: XR same day, CT 09/20/2022, XR 08/26/2022 FINDINGS: ----Chest: LARGE AIRWAYS: Patent. LUNGS: Mild emphysema. Minimal dependent right lower lobe atelectasis. Chronic mild left lower lobe herniation in the intercostal space. PLEURA: No pneumothorax or significant pleural effusion. HEART AND PERICARDIUM: Heart within normal limits in size. Mild pericardial effusion. VESSELS: No thoracic aortic aneurysm or dissection flap. No large central central pulmonary embolism although study not performed with the pulmonary embolism protocol. Right internal jugular central venous catheter removed. MEDIASTINUM AND CARMELLA: No pathologically enlarged lymph nodes. BONES: Osteopenia and degenerative change. ----Abdomen/Pelvis: BOWEL: Multiple fluid-filled dilated small bowel loops with transition zone in the mid lower abdomen. Right lower quadrant anastomosis. Mildly decreased colonic pneumatosis. Pneumatosis extending to the left lower quadrant colostomy also decreased. PERITONEUM: Decreased extraluminal air, likely a combination of free intraperitoneal air and mesenteric venous air. Mild free fluid in the abdomen and pelvis. LIVER: No enhancing mass. GALLBLADDER/BILIARY TREE: Gallbladder not visualized. SPLEEN/PANCREAS: Not enlarged. KIDNEYS: Multiple small bilateral renal calculi. Small bilateral renal cysts. Moderate bilateral hydroureteronephrosis. 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 stent proximal and in the extrarenal pelvis. ADRENAL GLANDS: Small bilateral adrenal nodules again seen. VESSELS: No abdominal aortic aneurysm. Atherosclerosis noted. PELVIC ORGANS: Circumferential rectal wall thickening with presacral soft tissue thickening again seen. Mild air in the urinary bladder. Distal end of right ureteral stent in the bladder. BONES: Degenerative change and osteopenia. CT/CT Chest, Abd, Pel w/Contrast IMPRESSION: Mild pericardial effusion. Multiple dilated small bowel loops with distal transition zone, concerning for small bowel obstruction. Mildly decreased extensive colonic pneumatosis, which maybe secondary to bowel ischemia or benign etiologies. Decreased extraluminal air, likely a combination of free intraperitoneal air and mesenteric venous air. Perforation not excluded. Interval development of mild free fluid in the abdomen and pelvis. Increased bilateral hydronephrosis despite right ureteral stent placement. Bilateral nephrolithiasis. Electronically Signed: Magda Jiménez MD at 16:03 EST ,
[2022-09-28 13:11] LABS: Pathologist Review Reviewed
[2022-09-28 13:19] LABS: Pathologist Review Reviewed
--- NOTE | 2022-09-28 15:54 | CON.PCM.ID_ITS ---
Assessment & Plan Assessment/Plan (1) Sepsis: PLAN: sepsis due to uti/pyelo after 09/26 cysto with R stone extraction and stent placement by Dr. Morrison. Recent ucxs with PsA, citro, klebs. Cont meropenem. CT pending. Will follow, thank you HPI Consult Data Date of Consult: 09/28/22 HPI Narrative Reason for Consultation: fever HPI Narrative: JOSE DE JESUS GOLD, is a 77 F with h/o kidney stones, admitted last month with pseudomonas and citrobacter bacteremia from urinary source. Discharged on iv cefepime. Now s/p 09/26 cystoscopy with R sided stone extraction and stent placement by Dr. Morrison. The next day, developed fever, rigors, aching pain across back and upper abd. No dysuria. Came to ED, admitted on meropenem, not feeling much better today. Full ROS performed and neg except as noted above. 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 Lung cancer Nicotine abuse Osteoporosis Rectal cancer Rectal cancer 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 calculus 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 calculus Shortness of breath on exertion Stage 3b chronic kidney disease (CKD) Thyroid disease TIA (transient ischemic attack) TIA (transient ischemic attack) Urinary retention Walker as ambulation aid Wears dentures Wears hearing aid Home Medications bupropion HCl 150 mg 24 hr tablet, extended release (Wellbutrin XL) 150 mg PO QAM quit smoking 11/28/18 [History Last Taken 09/27/22] citalopram 40 mg tablet 40 mg PO DAILY Anxiety 04/24/19 [History Last Taken 09/27/22] cyanocobalamin (vitamin B-12) 1,000 mcg/mL injection solution 100 mcg IM Q30D Supplement 10/08/19 [History Last Taken 09/08/22] cholecalciferol (vitamin D3) 25 mcg (1,000 unit) capsule (Vitamin D3) 25 mcg PO DAILY Supplement 10/09/21 [History Last Taken 09/27/22] sodium bicarbonate 650 mg tablet 650 mg PO TID supplement 10/09/21 [History Last Taken 09/27/22] albuterol sulfate 90 mcg/actuation aerosol inhaler (Ventolin HFA) 2 puff inhalation Q4H PRN shortness of breath or wheezing #18 grams 03/31/22 [Rx Last Taken 2 Weeks Ago ~09/13/22] ondansetron 4 mg disintegrating tablet 4 mg PO Q8H PRN nausea and vomiting #12 tabs 08/08/22 [Rx Last Taken Unknown] oxycodone 5 mg tablet 5 mg PO Q6H PRN pain 3 days #12 tabs 08/08/22 [Rx Last Taken 09/27/22] phenazopyridine 200 mg tablet (Pyridium) 200 mg PO TID PRN PRN Bladder Spasms 7 days #30 tabs 08/10/22 [Rx Last Taken 09/27/22] potassium chloride 20 mEq tablet,extended release 20 meq PO DAILY Supplement 08/18/22 [History Last Taken 09/27/22] acetaminophen 325 mg tablet (Tylenol) 650 mg PO Q4H PRN PRN Pain 1-10 Or Fever #0 tabs 08/30/22 [Rx Last Taken Unknown] cephalexin 500 mg capsule 500 mg PO Q12 post-operative 5 days #10 CAPSULES 09/26/22 [Rx Last Taken 09/27/22] levothyroxine 50 mcg tablet 50 mcg PO DAILY thyroid 09/27/22 [History Last Taken 09/27/22] Allergy/AdvReac Type Severity Reaction Status Date / Time ciprofloxacin [From Cipro] Allergy Rash Verified 09/27/22 14:14 ciprofloxacin HCl Allergy Rash Verified 09/27/22 14:14 [From Cipro] Penicillins Allergy Hives Verified 09/27/22 14:14 codeine AdvReac makes her Verified 09/27/22 14:14 feel weird magnesium citrate AdvReac Nausea Verified 09/27/22 14:14 NSAIDS (Non-Steroidal AdvReac kidney Verified 09/27/22 14:14 Anti-Inflamma damage r/t long-term usage advised not to use Family History Father Heart disease Mother Heart disease Sister Heart disease Diabetes Surgical History History of bowel resection History of delivery History of cholecystectomy History of colonoscopy (~10/2019) History of colostomy History of cystoscopy History of hysterectomy Social History household members: none Smoking Status: Former smoker Tobacco: How many years used: 53 how long ago did patient quit smoking: Quit 2-5 years prior. second hand exposure: No alcohol intake: never substance use type: does not use caffeine: No what type of physical activity do you participate in: none Physical Exam Const alert, oriented x3 and no apparent distress General Appearance: cooperative HEENT normocephalic and head/scalp atraumatic Eyes PERRL and EOMs intact bilaterally Neck supple and No nodes Resp normal air movement and clear to auscultation bilaterally Cardio regular rate and regular rhythm GI soft to palpation, non-tender and non-distended Extremity General Extremity: Negative for edema Skin no rashes or lesions noted Neuro CN's II-XII intact bilaterally Lab / Micro Data Attestation: I reviewed the patient's lab results. Result Diagrams: 09/28/22 06:15 09/28/22 06:15 Labs: Laboratory Results - last 24 hr 09/27/22 16:00: WBC 30.8 H*, RBC 4.41, Hgb 12.8, Hct 39.0, MCV 88.4, MCH 29.0, MCHC 32.8 D, RDW Std Deviation 51.4 H, RDW Coeff of Osmar 15.8 H, Plt Count 223, MPV 8.4, Immature Gran % (Auto) 0.700, Neut % (Auto) 89.9 H, Lymph % (Auto) 3.7 L, [place] % (Auto) 5.5, Eos % (Auto) 0.1, Baso % (Auto) 0.1, Absolute Neuts (auto) 27.7 H, Absolute Lymphs (auto) 1.15, Nucleated RBC % 0, Diff Path Review Reviewed, Platelet Estimate ADEQUATE, RBC Morphology N CHROM, Anisocytosis RARE, Macrocytosis RARE, Ovalocytes RARE 09/27/22 16:00: Sodium 138, Potassium 3.4 L, Chloride 110 H, Carbon Dioxide 17.0 L, Anion Gap 11, BUN 25 H, Creatinine 1.71 H, Estim Creat Clear Calc 20.79, Est GFR (MDRD) Af Amer 37 L, Est GFR (MDRD) Non-Af 31 L, BUN/Creatinine Ratio 14.6, Glucose 121 H, Calcium 9.0 09/27/22 17:06: Urine Color Milly, Urine Clarity Sl. Cloudy, Urine pH 6.0, Ur Specific [place] 1.010, Urine Protein 100 H, Urine Glucose (UA) Normal, Urine Ketones Negative, Urine Occult Blood 250 H, Urine Nitrite Positive H, Urine Bilirubin 3 H, Urine Urobilinogen 4 H, Ur Leukocyte Esterase 500 H, Urine RBC 50-100 SEEN, Urine WBC 50-100 SEEN, Ur Squamous Epith Cells 0-5 SEEN, Urine Bacteria 0 SEEN, Urine Mucus 0 SEEN 09/27/22 19:58: Lactic Acid 3.7 H* 09/28/22 00:30: Lactic Acid 2.0 09/28/22 06:15: WBC 39.4 H*, RBC 4.32, Hgb 12.8, Hct 40.0, MCV 92.6, MCH 29.6, MCHC 32.0, RDW Std Deviation 54.0 H, RDW Coeff of Osmar 15.9 H, Plt Count 166, MPV 9.0, Immature Gran % (Auto) 1.300 H, Neut % (Auto) 91.7 H, Lymph % (Auto) 3.0 L, [place] % (Auto) 3.7, Eos % (Auto) 0.1, Baso % (Auto) 0.2, Absolute Neuts (auto) 36.1 H, Absolute Lymphs (auto) 1.18, Nucleated RBC % 0, Differential Comment SCANNED, Diff Path Review Reviewed 09/28/22 06:15: Sodium 136, Potassium 3.6, Chloride 109 H, Carbon Dioxide 16.0 L , Anion Gap 11, BUN 23 H, Creatinine 1.74 H, Estim Creat Clear Calc 20.43, Est GFR (MDRD) Af Amer 37 L, Est GFR (MDRD) Non-Af 30 L, BUN/Creatinine Ratio 13.2, Glucose 93, Calcium 7.5 L 09/28/22 06:15: Total Bilirubin 0.90, Direct Bilirubin 0.37 H, AST 17, ALT 17, Alkaline Phosphatase 80, Total Protein 6.0 L, Albumin 2.5 L, Globulin 3.5 09/28/22 10:39: PT 17.2 H, INR 1.4, APTT 29.9 Micro: Microbiology 09/28/22 10:10 Stool Enteric Bacteriology - Final 09/27/22 17:06 Urine, Clean Catch Urine Culture - Preliminary Gram negative usha 09/28/22 01:30 Stool C. difficile DNA Amplification - Final Radiology Impression KUB X-Ray 09/27/22 16:25 IMPRESSION: 1. Bilateral nephrolithiasis. 2. 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 Electronically Signed: Torey Yeung MD at 16:41 EST , KUB X-Ray 09/28/22 11:19 IMPRESSION: Multiple dilated small bowel loops concerning for small bowel obstruction. Persistent pneumatosis of the left colon. Electronically Signed: Magda Jiménez MD at 12:05 EST ,
[2022-09-28 17:01] LABS: Erythrocyte Sedimentation Rate 10 mm/hr (0-30)
[2022-09-28 17:41] LABS: Lactic Acid 0.5 mmol/L (0.4-1.9)
--- NOTE | 2022-09-28 18:09 | PN.SURG_ITS ---
Subjective Subjective CT a/p complete. Pt still denies abdominal pain. Objective Data Objective Data Vital Signs: Vital Signs Temp Pulse Resp BP Pulse Ox O2 Del Method O2 Flow Rate 98.2 F 76 18 116/59 L 93 Room Air 94 09/28/22 14:19 09/28/22 14:29 09/28/22 08:15 09/28/22 14:19 09/28/22 08:15 09/28/22 14:29 09/28/22 14:29 Oxygen Flow Rate (L/min) 94 Oxygen Delivery Method Room Air Weight: 118 lb 2.684 oz Body Mass Index (BMI) 22.3 Intake & Output: Intake and Output for Last 24 Hours 09/26/22 09/27/22 09/28/22 23:59 23:59 23:59 Intake Total 1200 / 1200 2115.00 / 2115.00 Output Total 2850 / 2850 Balance 1200 / 950 -735.00 / -735.00 Lab / Micro Data Result Diagrams: 09/28/22 06:15 09/28/22 06:15 Labs: Laboratory Results - last 24 hr 09/27/22 16:00: Diff Path Review Reviewed 09/27/22 17:06: Urine RBC 50-100 SEEN, Urine WBC 50-100 SEEN, Ur Squamous Epith Cells 0-5 SEEN, Urine Bacteria 0 SEEN, Urine Mucus 0 SEEN 09/27/22 19:58: Lactic Acid 3.7 H* 09/28/22 00:30: Lactic Acid 2.0 09/28/22 06:15: WBC 39.4 H*, RBC 4.32, Hgb 12.8, Hct 40.0, MCV 92.6, MCH 29.6, MCHC 32.0, RDW Std Deviation 54.0 H, RDW Coeff of Osmar 15.9 H, Plt Count 166, MPV 9.0, Immature Gran % (Auto) 1.300 H, Neut % (Auto) 91.7 H, Lymph % (Auto) 3.0 L, [place] % (Auto) 3.7, Eos % (Auto) 0.1, Baso % (Auto) 0.2, Absolute Neuts (auto) 36.1 H, Absolute Lymphs (auto) 1.18, Nucleated RBC % 0, Differential Comment SCANNED, Diff Path Review Reviewed 09/28/22 06:15: Sodium 136, Potassium 3.6, Chloride 109 H, Carbon Dioxide 16.0 L , Anion Gap 11, BUN 23 H, Creatinine 1.74 H, Estim Creat Clear Calc 20.43, Est GFR (MDRD) Af Amer 37 L, Est GFR (MDRD) Non-Af 30 L, BUN/Creatinine Ratio 13.2, Glucose 93, Calcium 7.5 L 09/28/22 06:15: Total Bilirubin 0.90, Direct Bilirubin 0.37 H, AST 17, ALT 17, Alkaline Phosphatase 80, Total Protein 6.0 L, Albumin 2.5 L, Globulin 3.5 09/28/22 06:15: ESR 10 09/28/22 06:15: C-React Prot Ext Range 7.20 H 09/28/22 10:39: PT 17.2 H, INR 1.4, APTT 29.9 09/28/22 16:49: Lactic Acid 0.5 Micro: Microbiology 09/28/22 10:10 Stool Enteric Bacteriology - Final 09/27/22 17:06 Urine, Clean Catch Urine Culture - Preliminary Gram negative usha 09/28/22 01:30 Stool C. difficile DNA Amplification - Final Radiography Diagnostic Testing: Radiology Impression KUB X-Ray 09/28/22 11:19 IMPRESSION: Multiple dilated small bowel loops concerning for small bowel obstruction. Persistent pneumatosis of the left colon. Electronically Signed: Magda Jiménez MD at 12:05 EST , Chest/Abdomen/Pelvis CT 09/28/22 12:31 IMPRESSION: Mild pericardial effusion. Multiple dilated small bowel loops with distal transition zone, concerning for small bowel obstruction. Mildly decreased extensive colonic pneumatosis, which maybe secondary to bowel ischemia or benign etiologies. Decreased extraluminal air, likely a combination of free intraperitoneal air and mesenteric venous air. Perforation not excluded. Interval development of mild free fluid in the abdomen and pelvis. Increased bilateral hydronephrosis despite right ureteral stent placement. Bilateral nephrolithiasis. Electronically Signed: Magda Jiménez MD at 16:03 EST , ADDENDUM: 09/28/22 1616 IMPRESSION: Mild pericardial effusion. Multiple dilated small bowel loops with distal transition zone, concerning for small bowel obstruction. Mildly decreased extensive colonic pneumatosis, which maybe secondary to bowel ischemia or benign etiologies. Decreased extraluminal air, likely a combination of free intraperitoneal air and mesenteric venous air. Perforation not excluded. Interval development of mild free fluid in the abdomen and pelvis. Increased bilateral hydronephrosis despite right ureteral stent placement. Bilateral nephrolithiasis. N.B. : Hermelinda Cheema RN, confirmed on 09/28/2022 16:09:26 (ET) that the healthcare facility has received the radiology report. Electronically Signed: Magda Jiménez MD at 16:03 EST Reading Location ID and State: [facility] / [place] Tel , Service support , Physical Exam Const oriented x3 and no apparent distress Resp normal respiratory effort GI soft to palpation and non-tender GI Narrative: loop colostomy (sigmoid) pink- flatus and gas in bag Assessment & Plan Assessment/Plan (1) Pneumatosis intestinalis: (2) Leukocytosis: (3) Acute UTI: (4) Loose stools: PLAN: Plan Extensively reviewed CT abdomen pelvis with colleagues as well as daughter and patient. Patient does still have pneumatosis present throughout the colon does have some small amount of free air and some mesenteric air that was previously seen on 09/20 CT; however patient is quite complex as she also does have a UTI previously placed right ureteral stent placed 09/26. Patient CT called possible small bowel obstruction. Patient did receive 1 gallon of GoLytely prior to CT and did have a output with this. Thus patient has had an NG placed to help with decompression as she may have somewhat of an possible ileus due to the infection whether it is from UTI or if there is some infectious etiology of the colon that we are unable to identify. Patient's most recent CT does show bilateral hydronephrosis but patient does have a very full bladder as well-likely outlet obstruction distal outlet obstruction & Dr. Wyneski (urogyn) and patient did have Gallagher just placed for about 800cc placed as well. Patient's vital signs have remained stable lactic acid is normal at 0.5 just recheck today. Initially on admission it was 3.7. 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 Patient has left lower quadrant loop colostomy as well as small bowel resection with ileocolic anastomosis due to radiation damage per patient's daughter. Patient is also had several lysis of adhesion surgeries as well in the past. Patient's white blood cell count was 30 on admission and currently 39 today. ID is also been consulted for antibiotics. Patient C. difficile is negative patient's enteric pathogen's are also negative. Due to patient's CT findings for recommend transfer to a tertiary care center?discussed with daughter and patient. Sofie Yates M.D. Pager: [phone] [facility] [address] [place] [address], [facility], [address] [place] [address] Office: [phone] Charges/Coding Visit Charges Inpatient E&M: 10933 Subs Hosp L3
--- NOTE | 2022-09-28 18:20 | RAD_ITS ---
EXAM: XR ABDOMEN, 1 VIEW CLINICAL INDICATION: ng tube placement -- KUB with both diaphragms for NG/OG Verification TECHNIQUE: Frontal supine view of the abdomen/pelvis. This report was created using [employer] report generation technology. COMPARISON: Study done earlier today. FINDINGS: LOWER THORAX: No acute pathology. GASTROINTESTINAL TRACT: Unremarkable. Non-obstructive. No bowel or stomach distention. ORGANS: Unremarkable as visualized. No organomegaly. No abnormal calcifications. BONES/JOINTS: No acute pathology. SOFT TISSUES: No acute pathology. TUBES, LINES AND DEVICES: There is a feeding tube/ nasogastric tube noted. The tip is in the region of the stomach. RAD/Abdomen Single View (Portable) IMPRESSION: There is a feeding tube/ nasogastric tube noted. The tip is in the region of the stomach. Electronically Signed: Trav Britt MD at 18:47 EST ,
[2022-09-28] MEDS: Oxymetazoline 0.05% 1 SPRAY SPRAY.BTL 2 SPRAY NASAL (18:22)
--- NOTE | 2022-09-28 21:44 | DS.PCM_ITS ---
Providers Date of Admission: 09/27/22 Date of Discharge: 09/28/22 Primary Care Physician: Dr. Elliot Kang MD Consultations 09/27/22 20:43 Consult: Gastroenterology Routine Consulting Provider: [facility] Reason for Consult: Pneumotosis coli EMERGENT Consult: No Notified: Yes Date Notified: 09/27/22 Time Notified: 20:20 Method of Notification: Verbal Consult: General Surgery Routine Consulting Provider: Sofie Yates Reason for Consult: Pneumatosis coli EMERGENT Consult: No MD Notified: Yes Date Notified: 09/27/22 Time Notified: 20:21 Method of Notification: Verbal Consult: Urology Routine Consulting Provider: Minal Morrison Reason for Consult: Pyelonephritis EMERGENT Consult: No Notified: Yes Date Notified: 09/27/22 Time Notified: 20:22 Method of Notification: Verbal 09/28/22 09:05 Consult: Infectious Disease Routine Consulting Provider: Brandyn Johnson Reason for Consult: UTI AFTER Right stent, B/L kidney stones, H/o GNR bactermia and septic shoc EMERGENT Consult: No Notified: Yes Date Notified: 09/28/22 Time Notified: 09:05 Method of Notification: Text Reason For Visit: ACUTE PYELONEPHRITIS, PNEUMATOSIS COLI Diagnosis Discharge Diagnosis (1) Pneumatosis intestinalis: Status: Acute Code(s): K63.89 - Other specified diseases of intestine (2) Leukocytosis: Status: Acute Code(s): D72.829 - Elevated white blood cell count, unspecified (3) Acute UTI: Status: Acute Code(s): N39.0 - Urinary tract infection, site not specified (4) Loose stools: Status: Acute Code(s): R19.5 - Other fecal abnormalities Plan 77-year-old female was admitted with fever chills and bilateral flank pain with history of kidney stones. No fever or vomiting. No burning micturition. Left ureteric stent removal subsequently she went into septic shock and admitted in ICU discharged to TCU. At that time she had a gram-negative bacteremia with Ps eudomonas and Citrobacter 1. Acute pyelonephritis-associated with recent stent placement in the right ureter: Patient was admitted MedSurg floor. Her creatinine is chronically elevated on baseline 1.74. Baseline creatinine is about 1.65-1.70. Do not think patient looks toxic or sick or labs suggestive of endorgan dysfunction. Patient has lactic acidosis. Continue IV meropenem. ID consult Blood and urine culture has been ordered. Urologist is consulted. patient will be admitted to [facility], she will be placed on meropenem IV, I will have nursing obtain blood cultures and urine culture if they have not been obtained in the emergency room. Urologist, (Dr. Morrison) is consulted. #2 pneumatosis coli-etiology unclear at this point, general surgery and GI are consulted. Stool for C. difficile PCR negative. Enteric bacteriology panel ordered. GI has requested that the patient take a bowel prep and have a repeat CT of the abdomen and pelvis. GI will order the imaging study as she will need plain x- ray to clear the contrast before CT abdomen. #3 leukocytosis-secondary to acute pyelonephritis: The patient has leukocytosis 39,000. #4 Crohn's disease-according to GI this may not be active at this point, GI will see the patient in consultation (Dr. Tomlinson) Status post colostomy #5 COPD with history of adenocarcinoma of lung status post left upper lobectomy continue-patient will remain on her home medications #6 hypothyroidism-patient is on Synthroid #7 chronic anxiety-patient is on citalopram Total time of the visit including total time spent in counseling or coordination of care, (more than 50% of the total time, spent in obtaining medical information from nurses and other ancillary care providers,explaining to the patient about labs, imaging, diagnosis and management of active complex medical conditions), discussion with consultants ID, GI and surgery, chart review pertaining to multiple complex medical problems, medical decision-making, review of labs and imaging is 45 minutes. Medications at Discharge Home Medications bupropion HCl 150 mg 24 hr tablet, extended release (Wellbutrin XL) 150 mg PO QAM quit smoking 11/28/18 citalopram 40 mg tablet 40 mg PO DAILY Anxiety 04/24/19 cyanocobalamin (vitamin B-12) 1,000 mcg/mL injection solution 100 mcg IM Q30D Supplement 10/08/19 cholecalciferol (vitamin D3) 25 mcg (1,000 unit) capsule (Vitamin D3) 25 mcg PO DAILY Supplement 10/09/21 sodium bicarbonate 650 mg tablet 650 mg PO TID supplement 10/09/21 phenazopyridine 200 mg tablet (Pyridium) 200 mg PO TID PRN PRN Bladder Spasms 7 days #30 tabs 08/10/22 levothyroxine 75 mcg tablet 75 mcg PO DAILY 30 days #30 tabs 10/12/22 potassium chloride 20 mEq tablet,extended release(part/cryst) (Klor-Con M) 20 meq PO DAILYCM 30 days #30 tabs 10/12/22 Hospital Course Summary of Care Provided Hospital Course: 77-year-old female was admitted with fever chills and bilateral flank pain with history of kidney stones.? No? fever or vomiting. ? No burning micturition. Left ureteric stent removal subsequently she went into septic shock and admitted in ICU discharged to TCU.? At that time she had a gram-negative bacteremia with Pseudomonas and Citrobacter 1.? Acute pyelonephritis-associated with recent stent placement in the right ureter: Patient was admitted MedSurg floor. Her creatinine is chronically elevated on baseline 1.74.? Baseline creatinine is about 1.65-1.70.? Do not think patient looks toxic or sick or labs suggestive of endorgan dysfunction.? Patient has lactic acidosis.? Continue IV meropenem.? ID consult. Blood cultures and urine culture was collected in the ED. ? Blood and urine culture has been ordered.? Urologist, (Dr. Morrison) was consulted. #2 Pneumatosis coli, complicated with suspicion of perforation-etiology unclear at this point: General surgery and GI were consulted.? Stool for C. difficile PCR negative.? Enteric bacteriology panel ordered. ?GI has requested that the patient take a bowel prep and have a repeat CT of the abdomen and pelvis.? GI will order the imaging study as she will need plain x- ray to clear the contrast before CT abdomen. Discussed with Surgeon and GI. CT chest, abdomen, pelvis and KUB reviewed. Pneumatosis coli in entire colon which is persistent since previous imaging and Multiple dilated small bowel loops concerning for SBO. Extraluminal air likely a combination of free intraperitoneal air and mesenteric venous air.? Perforation can't be excluded.? Interval development of mild free fluid in the abdomen and pelvis. 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 I called health unit coordinator of [facility] and exchange clinical information. DR. Yates also called [facility] and said DR. Foote, surgeon in [facility] accepted that patient. #3 leukocytosis-secondary to acute pyelonephritis: The patient has leukocytosis 39,000.? Patient on antibiotics #4 Crohn's disease-according to GI this may not be active at this point, GI will see the patient in consultation (Dr. Tomlinson) Status post colostomy #5 COPD with history of adenocarcinoma of lung status post left upper lobectomy continue-patient will remain on her home medications #6 hypothyroidism-patient is on Synthroid #7 chronic anxiety-patient is on citalopram Transfer process discussed with the patient and her daughter and all questions were answered to patient's satisfaction. Total time spent, exact 45 minutes on exchange of clinical information with health unit coordinator, surgeon, [facility] surgeon and assistant case manager, examination, coordination of care with nurses and ancillary staff, review of imaging and blood test and discussion with the patient on follow-up instructions. Physical Exam Narrative Please see last progress note. Patient was discharged in the morning time of 09/29/2022 Weight / BMI Weight Weight: 118 lb 2.684 oz Body Mass Index (BMI) 22.3 ABG / Lab / Microbiology Data Result Diagrams: 09/28/22 06:15 09/28/22 06:15 Microbiology: Microbiology 09/27/22 21:45 Blood Culture (Wb) - Left Hand Blood Culture - Final Pseudomonas aeroginosa 09/27/22 21:33 Blood Culture (Wb) - Anticubital Left Blood Culture - Final Pseudomonas aeroginosa 09/27/22 17:06 Urine, Clean Catch Urine Culture - Final Pseudomonas aeroginosa Pseudomonas aeroginosa#2 09/28/22 10:10 Stool Enteric Bacteriology - Final 09/28/22 01:30 Stool C. difficile DNA Amplification - Final Meaningful Use Info Meaningful Use Diagnoses (Choose all that apply): None applicable Discharge Plan Admission Admit Date/Time: 09/27/22 20:13 Attending Provider: Isamar Rawls Primary Care Provider: Elliot Kang Chi Consulting Providers: Sofie Yates ; Minal Morrison ; Mando Santacruz ; Brandyn Johnson ; Willie Kerr Discharge Orders/Prescriptions Prescriptions: No Action bupropion HCl [Wellbutrin XL] 150 mg tablet extended release 24 hr 150 mg PO QAM citalopram 40 MG tablet 40 mg PO DAILY cyanocobalamin (vitamin B-12) 1,000 MCG/ML solution 100 mcg IM Q30D sodium bicarbonate 650 mg tablet 650 mg PO TID cholecalciferol (vitamin D3) [Vitamin D3] 25 mcg (1,000 unit) Capsule 25 mcg PO DAILY phenazopyridine [Pyridium] 200 mg tablet 200 mg PO TID PRN PRN (Reason: Bladder Spasms) 7 Days Qty: 30 0RF levothyroxine 75 mcg Tablet 75 mcg PO DAILY 30 Days Qty: 30 0RF potassium chloride [Klor-Con M20] 20 mEq Tablet,Er Particles/Crystals 20 meq PO DAILYCM 30 Days Qty: 30 0RF Referrals / Follow Up: Elliot Kang Chi, MD [Primary Care Provider] - Disposition Disposition (needs filled in before D/C Order can be placed): Acute Care Hospital Charges/Coding Visit Charges Inpatient E&M: 26483 Disch Hosp
[2022-09-29 04:00] VITALS: BP 118/59; PULSE 80; RESP 16; TEMP 37; O2SAT 97
[2022-09-29 05:00] VITALS: BP 118/59; PULSE 80; RESP 16; TEMP 37; O2SAT 97
[2022-09-29 07:53] VITALS: O2SAT 94
== END 2022-09-29 07:30 | disposition short-term general hospital (02) | DRG 857 ==
LOC: ED 18:04 → MS3 20:29
PROVIDERS: Internal Medicine; Internal Medicine Gastroenterology; Admitting Provider Internal Medicine; Emergency Provider Emergency Medicine; PCP Family Medicine Geriatric Medicine; Visit Provider Student in an Organized Health Care Education/Training Program
DX: T81.40XA Infection following a procedure, unspecified, initial encounter (principal); K56.7 Ileus, unspecified; K50.90 Crohn's disease, unspecified, without complications; N10 Acute pyelonephritis; N13.6 Pyonephrosis; J44.9 Chronic obstructive pulmonary disease, unspecified; N18.32 Chronic kidney disease, stage 3b; Z93.2 Ileostomy status; Z93.3 Colostomy status; E03.9 Hypothyroidism, unspecified; E86.0 Dehydration; F41.9 Anxiety disorder, unspecified; B96.5 Pseudomonas (aeruginosa) (mallei) (pseudomallei) as the cause of diseases classified elsewhere; N32.0 Bladder-neck obstruction; Y83.8 Other surgical procedures as the cause of abnormal reaction of the patient, or of later complication, without mention of misadventure at the time of the procedure; N20.0 Calculus of kidney; K63.89 Other specified diseases of intestine; Z79.890 Hormone replacement therapy; Z79.899 Other long term (current) drug therapy; Z79.891 Long term (current) use of opiate analgesic; Z85.118 Personal history of other malignant neoplasm of bronchus and lung; Z90.2 Acquired absence of lung [part of]; Z85.048 Personal history of other malignant neoplasm of rectum, rectosigmoid junction, and anus; Z87.891 Personal history of nicotine dependence
CPT/HCPCS: 36415; 71260; 74018; 74177; 76000; 80048; 80076; 81001; 82360; 83605; 85025; 85610; 85652; 85730; 86140; 87040; 87077; 87086; 87088; 87184; 87186; 87493; 87506; 88300; 97162; 97166; 99284; J2185; J7030; J7050; J7120; Q9967; A4216; C2625; J2405

== ENCOUNTER 2022-10-05 17:35 | Inpatient (IN) | payer MEDICARE, OTHER, SELFPAY ==
[2022-10-05 17:46] VITALS: BP 123/73; PULSE 85; RESP 16; TEMP 36.7; O2SAT 97; BMI 21.2
--- NOTE | 2022-10-05 18:53 | PCM.HP.STD ---
[facility] - General General Date of Admission: 10/05/22 Date of Service: 10/06/22 Chief Complaint: Here for rehabilitation, intravenous antibiotics. [facility] Nichelle GOLD, is a 77 Female who presents with followin09/26/2022 Dr. Morrison placed right ureteral stent. 09/27/2022 Presented to [facility] Emergency Department with right flank pain, chills. Chills, chronic diarrhea, on Keflex 500mg bid. Morphine, Zofran given. Urinalysis consistent with urinary tract infection, urine culture sent, Zosyn IV given. WBC 30, K 3.4, BUN 25, Creatinine 1.71. KUB shows constipation. CT abdomen/pelvis showed pneumatosis intestinale. 09/27/2022 Admit to Hospital. Meropenem IV, Blood cultures, urine cultures for pyelonephritis after right ureteral stent. Vancomycin PO, check stool for c. diff for diarrhea. 09/28/2022 C. diff negative, Enteric panel negative. 09/28/2022 Dr. Johnson recommended continuing Meropenem IV. 09/28/2022 Dr. Yates recommended transfer to tertiary center for pneumatosis coli, WBC 39,000. 09/29/2022 Admit to [facility]. Continue IV antibiotics, NG to suction. PICC line for IV antibiotics until right ureteral stent removed. No surgery performed. 10/05/2022 Admit to TCU with debility, here for rehabilitation, strengthening, intravenous antibiotics, prior to discharge home alone. 09/27/2022 Urine culture, blood culture x 2 grew pansensitive Pseudomonas Aeruginosa. 10/06/2022 Resident told me she does not want to give up, she wants to continue fighting, is not ready to , has too much to live for. 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 Lung cancer Nicotine abuse Osteoporosis Rectal cancer Rectal cancer 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 calculus 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 calculus Shortness of breath on exertion Stage 3b chronic kidney disease (CKD) Thyroid disease TIA (transient ischemic attack) TIA (transient ischemic attack) Urinary retention Walker as ambulation aid Wears dentures Wears hearing aid Home Medications bupropion HCl 150 mg 24 hr tablet, extended release (Wellbutrin XL) 150 mg PO QAM quit smoking 11/28/18 [History Last Taken 09/27/22] citalopram 40 mg tablet 40 mg PO DAILY Anxiety 04/24/19 [History Last Taken 09/27/22] cyanocobalamin (vitamin B-12) 1,000 mcg/mL injection solution 100 mcg IM Q30D Supplement 10/08/19 [History Last Taken 09/08/22] cholecalciferol (vitamin D3) 25 mcg (1,000 unit) capsule (Vitamin D3) 25 mcg PO DAILY Supplement 10/09/21 [History Last Taken 09/27/22] sodium bicarbonate 650 mg tablet 650 mg PO TID supplement 10/09/21 [History Last Taken 09/27/22] albuterol sulfate 90 mcg/actuation aerosol inhaler (Ventolin HFA) 2 puff inhalation Q4H PRN shortness of breath or wheezing #18 grams 03/31/22 [Rx Last Taken 2 Weeks Ago ~09/13/22] oxycodone 5 mg tablet 5 mg PO Q6H PRN pain 3 days #12 tabs 08/08/22 [Rx Last Taken 09/27/22] phenazopyridine 200 mg tablet (Pyridium) 200 mg PO TID PRN PRN Bladder Spasms 7 days #30 tabs 08/10/22 [Rx Last Taken 09/27/22] potassium chloride 20 mEq tablet,extended release 20 meq PO DAILY Supplement 08/18/22 [History Last Taken 09/27/22] cephalexin 500 mg capsule 500 mg PO Q12 post-operative 5 days #10 CAPSULES 09/26/22 [Rx Last Taken 09/27/22] levothyroxine 50 mcg tablet 50 mcg PO DAILY thyroid 09/27/22 [History Last Taken 09/27/22] acetaminophen 325 mg tablet (Tylenol) 500 mg PO Q6H PRN PRN Pain 10/05/22 [History Last Taken Unknown] cefepime 1 gram intravenous piggyback 1 g IV Q12H antibiotic 10/05/22 [History Last Taken Unknown] lorazepam 0.5 mg tablet (Ativan) 0.5 mg PO BID PRN Anxiety 10/05/22 [History Last Taken Unknown] midodrine 2.5 mg tablet 2.5 mg PO BID PRN low BP 10/05/22 [History Last Taken Unknown] ondansetron 4 mg disintegrating tablet 4 mg PO Q6H PRN PRN nausea and vomiting 10/05/22 [History Last Taken Unknown] Allergy/AdvReac Type Severity Reaction Status Date / Time ciprofloxacin [From Cipro] Allergy Rash Verified 09/27/22 14:14 ciprofloxacin HCl Allergy Rash Verified 09/27/22 14:14 [From Cipro] Penicillins Allergy Hives Verified 09/27/22 14:14 codeine AdvReac makes her Verified 09/27/22 14:14 feel weird magnesium citrate AdvReac Nausea Verified 09/27/22 14:14 NSAIDS (Non-Steroidal AdvReac kidney Verified 09/27/22 14:14 Anti-Inflamma damage r/t long-term usage advised not to use Family History Father Heart disease Mother Heart disease Sister Heart disease Diabetes Surgical History History of bowel resection History of delivery History of cholecystectomy History of colonoscopy (~10/2019) History of colostomy History of cystoscopy History of hysterectomy Social History household members: none Smoking Status: Former smoker Tobacco: How many years used: 53 how long ago did patient quit smoking: Quit 2-5 years prior. second hand exposure: No alcohol intake: never substance use type: does not use caffeine: No what type of physical activity do you participate in: none ROS Constitutional Constitutional: Denies chills, fever(s) or weight gain ENT HEENT: Denies headache(s), nasal congestion or nasal discharge Cardiovascular Cardiovascular: Denies chest pain or palpitations Respiratory/Chest Respiratory/Chest: Denies cough, excessive phlegm production or shortness of breath with exertion Gastrointestinal Gastrointestinal: Denies abdominal pain, nausea or vomiting Genitourinary Genitourinary: Denies dysuria Musculoskeletal Musculoskeletal: Denies joint pain or joint swelling Integumentary Integumentary: Denies rash or wounds Neurologic Neurologic: Denies focal weakness, numbness or tingling Psychiatric Psychiatric: Denies anxiety, auditory hallucinations, depression, homicidal ideation or suicidal ideation Vital Signs Vital Signs Vital Signs: 10/05/22 17:46 Temperature 98.0 F Temperature Source Oral Pulse Rate 85 Respiratory Rate 16 Blood Pressure 123/73 H Blood Pressure Mean 89 Blood Pressure Source Monitor Blood Pressure Position Sitting Blood Pressure Location Left Arm Pulse Ox 97 Oxygen Delivery Method Room Air Weight Weight: 50.819 kg Body Mass Index (BMI) 21.2 Physical Exam Const alert General Appearance: cooperative HEENT normocephalic Eyes PERRL and EOMs intact bilaterally Neck supple, no JVD and no carotid bruits Resp normal respiratory effort, normal air movement and clear to auscultation bilaterally Cardio regular rate and regular rhythm GI normal to inspection, nondistended, normoactive bowel sounds, non-tender and non-distended Extremity normal capillary refill Extremity Narrative: Right upper extremity PICC line. General Extremity: Negative for edema Skin no rashes or lesions noted General Skin Exam: no breakdown Psych affect normal Appearance: appropriate Results Lab / Micro Data Result Diagrams: 10/06/22 05:40 10/06/22 05:40 Assessment & Plan Assessment/Plan (1) Debility: (2) Sepsis: (3) Pyelonephritis: (4) Bacteremia: (5) Pneumatosis intestinalis: (6) Kidney stones: (7) Depression: (8) Hypothyroidism: (9) Vitamin B12 deficiency: (10) Hypokalemia: (11) Metabolic acidosis: (12) Vitamin D deficiency: (13) History of lung cancer: (14) History of anal cancer: PLAN: Plan 77 year old female with below past medical history hospitalized for sepsis secondary to Pseudomonas pyelonephritis after right ureteral stent, complicated by pneumatosis intestinale, admitted to TCU with debility, here for rehabilitation, strengthening, intravenous antibiotics, prior to discharge home alone. Debility - PT/OT. Pain - Tylenol 1000mg q6h prn pain (1-5), Oxycodone 5mg q4h prn pain (6-10). Bowel - senna/colace 1 tablet bid, MOM 30ml daily prn. Adult immunization - Administer pneumonia vaccine, covid19 vaccine, flu vaccine as appropriate. DVT prophylaxis - Hold. Shortness of breath - Albuterol 2 puffs q4h prn. Depression - Bupropion XL 150mg daily, Citalopram 40mg daily, stable chronic skilled nursing use, GDR not recommended. P. Aeruginosa pyelonephritis - Cefepime 1gm iv q12h thru 10/17/2022, consult Dr. Morrison for right ureteral stent removal. Hypothyroidism - Levothyroxine 50mcg daily. 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 Dysuria - Azo 190mg tid prn. Hypokalemia - KCL 20meq daily. Metabolic acidosis - sodium bicarb 650mg tid. Vitamin D deficiency - D3 25mcg daily.
[2022-10-05] MEDS: Senna/Docusate Sodium 1 Tablet PO (21:47)
[2022-10-05] MEDS: Sodium Bicarbonate 650 MG Tablet PO (21:47)
[2022-10-05] MEDS: 0.9% Saline Lock 10 ML Syringe IV (21:56)
[2022-10-06] MEDS: Sodium Bicarbonate 650 MG Tablet PO ×3 (05:31→20:49)
[2022-10-06] MEDS: buPROPion (XL) 150 MG TABLET.XL PO (05:31)
[2022-10-06] MEDS: Levothyroxine 50 MCG Tablet PO (05:31)
[2022-10-06] MEDS: Cholecalciferol (VIT D3) 25 MCG TABLET (1,000 UNITS) PO (05:31)
[2022-10-06] MEDS: Citalopram 40 MG TABLET PO (05:31)
[2022-10-06] MEDS: 0.9% Saline Lock 10 ML Syringe IV (05:31)
[2022-10-06] MEDS: Senna/Docusate Sodium 1 Tablet PO (05:31)
[2022-10-06 06:01] LABS: Absolute Lymphocyte Count 2.11 X10^3/uL (0.83-4.51); Absolute Neutrophil Count 5.1 X10^3/uL (2.0-7.7); Basophil# 0.03 X10^3/uL; Basophil% 0.4 % (0-1); Eosinophil# 0.45 X10^3/uL; Eosinophils% 5.4 % (0-5); Hematocrit 36.6 % (37-47); Hemoglobin 11.1 g/dL (12.0-15.0); Lymphocyte # 2.11 X10^3/ul (0.83-4.51); Lymphocyte % 25.5 % (19-41); Mean Corp Hgb Conc 30.3 g/dL (32-36); Mean Corpuscular Hgb 28.1 pg (27.0-32.0); Mean Corpuscular Volume 92.7 fL (81-99); Mean Platelet Vol. 9.4 fl (6.2-12.0); Monocyte# 0.46 X10^3/uL; Monocyte% 5.6 % (0-10); NRBC Flagged by Analyzer 0 % (0-5); Neutrophil # 5.12 X10^3/uL (2.7-7.7); Platelet Count 190 K/mm3 (150-450); RBC Distribution Width CV 15.1 % (11.6-14.6); RBC Distribution Width SD 51.8 fl (35.1-43.9); Red Blood Count 3.95 M/mm3 (4.2-5.4); White Blood Count 8.3 K/mm3 (4.4-11.0)
[2022-10-06 06:30] LABS: Anion Gap 7 (5-15); BUN 27 mg/dL (7-18); BUN/Creat Ratio 17.2 RATIO (10-20); Calcium,Total 9.1 mg/dL (8.5-10.1); Chloride 107 mmol/L (98-107); Creatinine, Serum 1.57 mg/dL (0.55-1.02); EST Glomerular Filtration Rate 34 mL/min (>60); Est Glom Filt Rate - Afr Amer 41 mL/min (>60); Estimated Creatinine Clearance 22.64 ml/min; Glucose 80 mg/dL (74-106); Potassium 4.4 mmol/L (3.5-5.1); Sodium Level 137 mmol/L (136-145)
[2022-10-06] MEDS: Potassium Chloride Oral Tablet 20 MEQ PO (09:56)
--- NOTE | 2022-10-06 10:49 | NURSING ---
Collector Of Port Note; Activity Asste: Complete
--- NOTE | 2022-10-06 12:19 | CASEMGMT ---
Social Work Met with patient to complete initial assessment. Pt known to this worker from previous stay. No changes to contacts, code status, MOLST or Medicare benefit. Pt is receiving IV ATB through 10/17 then goal is returning home alone. SW to continue to follow for DC planning/ IRWIN HollingsworthW
[2022-10-06] MEDS: Tuberculin,Purif.prot.deriv. 50 TU/ML Vial 0.1 ML ID (13:44)
[2022-10-06 14:00] VITALS: BP 107/69; PULSE 87; RESP 15; TEMP 36.3; O2SAT 94
--- NOTE | 2022-10-06 14:52 | CON.PCM_ITS ---
Assessment & Plan Assessment/Plan (1) Kidney stones: (2) Bacteremia: (3) Sepsis: (4) Pneumatosis intestinalis: (5) Pyelonephritis: (6) Debility: PLAN: Plan Plan is to repeat urine culture today and ensure that it is negative I will plan to make arrangements for cystoscopy and stent removal under local in the operating room prior to removal of her PICC line and prior to her discharge home I do not want to manipulate the stent without a negative culture. HPI Consult Data Date of Consult: 10/06/22 HPI Narrative Reason for Consultation: 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 stent HPI Narrative: JOSE DE JESUS GOLD, is a 77 F who was admitted to the TCU after a 1 week stay in [facility] for management of urinary tract infection, urinary obstruction, and pneumatosis intestinalis. At this time her Gallagher catheter has been removed and she is receiving intravenous antibiotic administration through PICC line. She is feeling well and at the time of this consult is actually riding a bike in the therapy room. She has no specific complaints today and is looking forward to gaining back her strength. She is looking forward to having the stent removed. She did denies difficulty with voiding, dysuria. [facility] Medical History Abdominal bloating Anxiety Anxiety Arthritis Cancer Chronic bronchitis COPD (chronic obstructive pulmonary disease) COPD (chronic obstructive pulmonary disease) COPD exacerbation Crohn's disease Decreased appetite Depression Diarrhea Diarrhea Easy bruising Filling defect on imaging study Former smoker History of echocardiogram History of fracture of patella History of pain when walking History of rectal cancer History of stress test Hydronephrosis Hydronephrosis, right Hypothyroidism custodial current use of immunosuppressive drug Lung cancer Nicotine abuse Osteoporosis Rectal cancer Rectal cancer 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 calculus 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 calculus Shortness of breath on exertion Stage 3b chronic kidney disease (CKD) Thyroid disease TIA (transient ischemic attack) TIA (transient ischemic attack) Urinary retention Walker as ambulation aid Wears dentures Wears hearing aid Home Medications bupropion HCl 150 mg 24 hr tablet, extended release (Wellbutrin XL) 150 mg PO QAM quit smoking 11/28/18 [History Last Taken 09/27/22] citalopram 40 mg tablet 40 mg PO DAILY Anxiety 04/24/19 [History Last Taken 09/27/22] cyanocobalamin (vitamin B-12) 1,000 mcg/mL injection solution 100 mcg IM Q30D Supplement 10/08/19 [History Last Taken 09/08/22] cholecalciferol (vitamin D3) 25 mcg (1,000 unit) capsule (Vitamin D3) 25 mcg PO DAILY Supplement 10/09/21 [History Last Taken 09/27/22] sodium bicarbonate 650 mg tablet 650 mg PO TID supplement 10/09/21 [History Last Taken 09/27/22] albuterol sulfate 90 mcg/actuation aerosol inhaler (Ventolin HFA) 2 puff inha lation Q4H PRN shortness of breath or wheezing #18 grams 03/31/22 [Rx Last Taken 2 Weeks Ago ~09/13/22] oxycodone 5 mg tablet 5 mg PO Q6H PRN pain 3 days #12 tabs 08/08/22 [Rx Last Taken 09/27/22] phenazopyridine 200 mg tablet (Pyridium) 200 mg PO TID PRN PRN Bladder Spasms 7 days #30 tabs 08/10/22 [Rx Last Taken 09/27/22] potassium chloride 20 mEq tablet,extended release 20 meq PO DAILY Supplement 08/18/22 [History Last Taken 09/27/22] cephalexin 500 mg capsule 500 mg PO Q12 post-operative 5 days #10 CAPSULES 09/26/22 [Rx Last Taken 09/27/22] levothyroxine 50 mcg tablet 50 mcg PO DAILY thyroid 09/27/22 [History Last Taken 09/27/22] acetaminophen 325 mg tablet (Tylenol) 500 mg PO Q6H PRN PRN Pain 10/05/22 [History Last Taken Unknown] cefepime 1 gram intravenous piggyback 1 g IV Q12H antibiotic 10/05/22 [History Last Taken Unknown] lorazepam 0.5 mg tablet (Ativan) 0.5 mg PO BID PRN Anxiety 10/05/22 [History Last Taken Unknown] midodrine 2.5 mg tablet 2.5 mg PO BID PRN low BP 10/05/22 [History Last Taken Unknown] ondansetron 4 mg disintegrating tablet 4 mg PO Q6H PRN PRN nausea and vomiting 10/05/22 [History Last Taken Unknown] Allergy/AdvReac Type Severity Reaction Status Date / Time ciprofloxacin [From Cipro] Allergy Rash Verified 09/27/22 14:14 ciprofloxacin HCl Allergy Rash Verified 09/27/22 14:14 [From Cipro] Penicillins Allergy Hives Verified 09/27/22 14:14 codeine AdvReac makes her Verified 09/27/22 14:14 feel weird magnesium citrate AdvReac Nausea Verified 09/27/22 14:14 NSAIDS (Non-Steroidal AdvReac kidney Verified 09/27/22 14:14 Anti-Inflamma damage r/t long-term usage advised not to use Family History Father Heart disease Mother Heart disease Sister Heart disease Diabetes Surgical History History of bowel resection History of delivery History of cholecystectomy History of colonoscopy (~10/2019) History of colostomy History of cystoscopy History of hysterectomy Social History household members: none Smoking Status: Former smoker Tobacco: How many years used: 53 how long ago did patient quit smoking: Quit 2-5 years prior. second hand exposure: No alcohol intake: never substance use type: does not use caffeine: No what type of physical activity do you participate in: none ROS Constitutional Constitutional: Reports systems reviewed and no addt'l complaints, except as documented and fatigue; Denies body ache(s), chills or fever(s) Eyes Eyes: Reports systems reviewed and no addt'l complaints, except as documented ENT HEENT: Reports systems reviewed and no addt'l complaints, except as documented Cardiovascular Cardiovascular: Reports systems reviewed and no addt'l complaints, except as documented; Denies chest pain or dyspnea Respiratory/Chest Respiratory/Chest: Denies chest tightness, cough or dyspnea Gastrointestinal Gastrointestinal: Denies abdominal pain Genitourinary Genitourinary: Reports urinary urgency; Denies dysuria or urinary frequency Musculoskeletal Musculoskeletal: Reports systems reviewed and no addt'l complaints, except as documented Integumentary Integumentary: Reports systems reviewed and no addt'l complaints, except as documented Neurologic Neurologic: Reports systems reviewed and no addt'l complaints, except as documented Psychiatric Psychiatric: Reports systems reviewed and no addt'l complaints, except as documented Endocrine Endocrinology: Reports systems reviewed and no addt'l complaints, except as documented Hematologic/Lymphatic Hematologic/Lymphatic: Reports systems reviewed and no addt'l complaints, except as documented Allergic/Immunologic Allergic/Immunologic: Reports systems reviewed and no addt'l complaints, except as documented Physical Exam Const alert, oriented x3 and no apparent distress General Appearance: cooperative, comfortable, well kempt and well developed HEENT normocephalic, head/scalp atraumatic, hearing grossly normal bilaterally, external ears normal and external nose normal Eyes General Eye: normal appearance of both eyes Neck supple General: trachea midline Lymph Lymphatic: no lymphedema noted Chest Chest: symmetrical chest wall rise Resp normal respiratory effort, normal air movement and no retractions Cardio regular rate and regular rhythm GI soft to palpation, non-tender and non-distended no CVA tenderness Back/Spine no CVA tenderness Extremity normal to inspection Skin no rashes or lesions noted Neuro oriented x3, CN's II-XII intact bilaterally and moves all extremities Psych mental status grossly normal, thought process normal, cooperative and affect normal Lab / Micro Data Result Diagrams: 10/06/22 05:40 10/06/22 05:40 Labs: Laboratory Results - last 24 hr 10/06/22 05:40: WBC 8.3, RBC 3.95 L, Hgb 11.1 L, Hct 36.6 L, MCV 92.7, MCH 28.1, MCHC 30.3 L, RDW Std Deviation 51.8 H, RDW Coeff of Osmar 15.1 H, Plt Count 190, MPV 9.4, Immature Gran % (Auto) 1.100 H, Neut % (Auto) 62.0, Lymph % (Auto) 25.5, Barron % (Auto) 5.6, Eos % (Auto) 5.4 H, Baso % (Auto) 0.4, Absolute Neuts (auto) 5.1, Absolute Lymphs (auto) 2.11, Nucleated RBC % 0 10/06/22 05:40: Sodium 137, Potassium 4.4, Chloride 107, Carbon Dioxide 23.0, Anion Gap 7, BUN 27 H, Creatinine 1.57 H, Estim Creat Clear Calc 22.64, Est GFR (MDRD) Af Amer 41 L, Est GFR (MDRD) Non-Af 34 L, BUN/Creatinine Ratio 17.2, Glucose 80, Calcium 9.1 Micro: Microbiology 10/05/22 23:00 Nasal Secretion SARS-CoV-2 Antigen (Rapid) - Final
[2022-10-07] MEDS: buPROPion (XL) 150 MG TABLET.XL PO (05:20)
[2022-10-07] MEDS: Levothyroxine 50 MCG Tablet PO (05:20)
[2022-10-07] MEDS: Citalopram 40 MG TABLET PO (05:20)
[2022-10-07] MEDS: Cholecalciferol (VIT D3) 25 MCG TABLET (1,000 UNITS) PO ×2 (05:20)
[2022-10-07] MEDS: Sodium Bicarbonate 650 MG Tablet PO ×3 (05:21→19:59)
[2022-10-07] MEDS: Potassium Chloride Oral Tablet 20 MEQ PO (08:30)
--- NOTE | 2022-10-07 14:03 | PCM.PN.DRR ---
TCU RX Drug Regimen Review Subjective: TCU Admission. 77 YOF had right ureteral stent placement 09/26/22, presented to ER 09/27/22 with flank pain/chills. Hospitalized for sepsis secondary to Pseudomonas pyelonephritis after right ureteral stent, complicated by pneumatosis intestinale. Admitted to TCU with debility for strengthening and rehabilitation. Objective: Allergies ciprofloxacin [From Cipro] Allergy (Verified 09/27/22 14:14) Rash ciprofloxacin HCl [From Cipro] Allergy (Verified 09/27/22 14:14) Rash Penicillins Allergy (Verified 09/27/22 14:14) Hives codeine Adverse Reaction (Verified 09/27/22 14:14) makes her feel weird makes her feel weird magnesium citrate Adverse Reaction (Verified 09/27/22 14:14) Nausea NSAIDS (Non-Steroidal Anti-Inflamma Adverse Reaction (Verified 09/27/22 14:14) kidney damage r/t long-term usage advised not to use kidney damage r/t long-term usage advised not to use Current Medications Generic Name Dose Route Start Last Admin Trade Name Freq PRN Reason Stop Dose Admin Acetaminophen 1,000 mg 10/05/22 19:11 Acetaminophen 500 Mg Tablet PO Q6H PRN PRN Pain Score 1-5 Albuterol Sulfate 2 puff 10/05/22 18:56 Albuterol Ih (6.7 Gm) 1 Puff Inhaler INHALATION Q4H PRN shortness of breath or wheezing Bupropion HCl 150 mg 10/06/22 06:00 10/07/22 05:20 Bupropion (Xl) 150 Mg Tablet.Xl PO 150 mg DAILY PRIMO Administration Calamine/Phenol 1 applic 10/06/22 18:00 10/07/22 05:19 Menthol/Lanolin/Calamine/Znox 113 Gm Tube TOPICAL Not Given BID [facility] Protocol Cholecalciferol 25 mcg 10/06/22 06:00 10/07/22 05:20 Cholecalciferol (Vit D3) 25 Mcg Tablet (1,000 Units) PO 25 mcg DAILY PRIMO Administration Citalopram Hydrobromide 40 mg 10/06/22 06:00 10/07/22 05:20 Citalopram 40 Mg Tablet PO 40 mg DAILY PRIMO Administration Cefepime HCl 1 gm/ Sodium 50 mls @ 100 mls/hr 10/05/22 19:00 10/07/22 06:00 Chloride IV 10/17/22 18:35 Infused Q12 PRIMO Infusion Sodium Chloride 250 mls @ 15 mls/hr 10/05/22 21:39 10/05/22 22:32 IV 0 mls/hr .[id number] PRN Infusion Saline Flush Sodium Chloride 250 mls @ 15 mls/hr 10/05/22 21:39 IV .[id number] PRN Additional IVPB Infusion Levothyroxine Sodium 50 mcg 10/06/22 06:00 10/07/22 05:20 Levothyroxine 50 Mcg Tablet PO 50 mcg DAILY PRIMO Administration Lorazepam 0.5 mg 10/05/22 18:19 Lorazepam 0.5 Mg Tablet PO BID PRN ANXIETY Magnesium Hydroxide 30 ml 10/05/22 19:11 Magnesium Hydroxide 30 Ml Udc PO DAILY PRN CONSTIPATION Oxycodone HCl 5 mg 10/05/22 19:12 Oxycodone 5 Mg Tablet PO Q4H PRN PRN Pain Score 6-10 Phenazopyridine HCl 190 mg 10/05/22 18:58 Phenazopyridine 95 Mg Tablet PO TID PRN PRN Bladder Spasms Potassium Chloride 20 meq 10/06/22 08:00 10/07/22 08:30 Potassium Chloride Oral Tablet 20 Meq PO 20 meq DAILYCM PRIMO Administration Senna/Docusate Sodium 1 tablet 10/05/22 19:15 10/07/22 05:21 Senna/Docusate Sodium 1 Tablet PO Not Given BID PRIMO Sodium Bicarbonate 650 mg 10/05/22 22:00 10/07/22 05:21 Sodium Bicarbonate 650 Mg Tablet PO 650 mg TID PRIMO Administration Sodium Chloride 10 - 40 ml 10/05/22 18:17 10/06/22 05:31 0.9% Saline Lock 10 Ml Syringe IV 10 ml UD PRN Administration Closed End PICC Flush Sodium Chloride 10 - 40 ml 10/05/22 18:17 0.9 % Nacl (Sterile) Posiflush 10 Ml IV UD PRN Port access or dressing change Sodium Chloride 10 - 40 ml 10/05/22 21:39 0.9% Saline Lock 10 Ml Syringe IV UD PRN SALINE FLUSH Tuberculin PPD 0.1 ml 10/13/22 10:00 Tuberculin,Purif.Prot.Deriv. 50 Tu/Ml Vial ID 10/13/22 10:01 X1 ONE Problem List (Last Reviewed 10/06/22 @ 14:[address] Minal Morrison MD) History of anal cancer (Acute) History of lung cancer (Acute) Vitamin D deficiency (Acute) Metabolic acidosis (Acute) Hypokalemia (Acute) Vitamin B12 deficiency (Acute) Hypothyroidism (Acute) Depression (Acute) Kidney stones (Acute) Pneumatosis intestinalis (Acute) Bacteremia (Acute) Pyelonephritis (Acute) Debility (Acute) Sepsis (Acute) Vital Signs Temp Pulse Resp BP Pulse Ox O2 Del Method 97.4 F L 87 15 107/69 94 Room Air 10/06/22 14:00 10/06/22 14:00 10/06/22 14:00 10/06/22 14:00 10/06/22 14:00 10/06/22 14:00 Oxygen Delivery Method Room Air Weight: 50.819 kg Body Mass Index (BMI) 21.2 Sodium 137 mmol/L (136-145) 10/06/22 05:40 Potassium 4.4 mmol/L (3.5-5.1) 10/06/22 05:40 Chloride 107 mmol/L (98-107) 10/06/22 05:40 Carbon Dioxide 23.0 mmol/L (21.0-32.0) 10/06/22 05:40 Anion Gap 7 (5-15) 10/06/22 05:40 BUN 27 mg/dL (7-18) H 10/06/22 05:40 Creatinine 1.57 mg/dL (0.55-1.02) H 10/06/22 05:40 Est GFR (MDRD) Af Amer 41 mL/min (>60) L 10/06/22 05:40 Est GFR (MDRD) Non-Af 34 mL/min (>60) L 10/06/22 05:40 BUN/Creatinine Ratio 17.2 RATIO (10-20) 10/06/22 05:40 Glucose 80 mg/dL (74-106) 10/06/22 05:40 Assessment/Plan: 1. Pain: acetaminophen 1000mg PO Q6H PRN 1-5 and oxycodone 5mg PO Q4H PRN pain 6-10. Resident has not received any doses. Please continue to monitor for increased pain and PRN usage. 2. Bowel: senna/docusate 1T PO BID and MOM 30mL PO daily PRN constipation. Resident had 1 documented bowel movement 10/07. Please continue to monitor for constipation and PRN usage. 3. P. aeruginosa pyelonephritis: cefepime 1gm IV Q12 thru 10/17/22. Urology consulted for stent removal. Please continue to monitor for S/S of infection, confusion, renal function and diarrhea. 4. Shortness of breath: albuterol MDI 2 puff Q4H PRN SOB/wheezing. Please continue to monitor for SOB/wheezing and PRN usage (resident has not received any doses). 5. Hypothyroidism: levothyroxine 50mcg PO daily. Please continue to monitor TSH (last 08/19/22) and S/S of hypo/hyperthyroidism. 6. Dysuria: phenazopyridine 190mg PO TID PRN bladder spasms. Resident has not used any doses. Please continue to monitor for bladder spasms, PRN usage and red urine (if resident requires doses). 7. Hypokalemia: potassium chloride 20mEq PO daily. Please continue to monitor potassium levels (last 4.4mmol/L). 8. Metabolic acidosis: sodium bicarbonate 650mg PO TID. Please continue to monitor renal function. 9. Vitamin D deficiency: cholecalciferol 25mcg PO daily. Please continue to monitor vitamin D levels (last 08/08/22). Assessment/Plan for indications treated with psychotropic medications: 1. Depression: bupropion XL 150mg PO daily and citalopram 40mg PO daily. Please see physician note regarding GDR. Please continue to monitor for suicidal ideation (black box warning, both medications) and falls/fractures (BEERs criteria, citalopram). 2. Anxiety: lorazepam 0.5mg PO BID PRN anxiety. Resident has not used any doses. Please see physician note regarding GDR. If resident requires doses, please continue to monitor for delirium/dementia, falls/fractures and confusion as this mediation is on the BEERs list. Medical chart and medication regimen reviewed. The following medication irregularities or issues were identified: None Date of Note:: 10/07/22
[2022-10-07 14:52] VITALS: BP 136/75; PULSE 80; RESP 16; TEMP 36.5; O2SAT 97
[2022-10-07] MEDS: Cyanocobalamin (B12) 1,000 MCG/ML Vial 1000 MCG IM (15:40)
[2022-10-07] MEDS: 0.9% Saline Lock 10 ML Syringe IV (17:48)
[2022-10-07] MEDS: Senna/Docusate Sodium 1 Tablet PO (17:48)
[2022-10-07 20:00] VITALS: PULSE 86; RESP 18; O2SAT 96
[2022-10-08] MEDS: Citalopram 40 MG TABLET PO (04:06)
[2022-10-08] MEDS: buPROPion (XL) 150 MG TABLET.XL PO (04:07)
[2022-10-08] MEDS: Levothyroxine 50 MCG Tablet PO (04:07)
[2022-10-08] MEDS: Sodium Bicarbonate 650 MG Tablet PO ×3 (04:07→20:37)
[2022-10-08] MEDS: Potassium Chloride Oral Tablet 20 MEQ PO (07:57)
--- NOTE | 2022-10-08 09:08 | PN_ITS ---
Objective Data Objective Data Vital Signs: Vital Signs Temp Pulse Resp BP Pulse Ox O2 Del Method 97.7 F L 86 18 136/75 H 96 Room Air 10/07/22 14:52 10/07/22 20:00 10/07/22 20:00 10/07/22 14:52 10/07/22 20:00 10/07/22 20:00 Oxygen Delivery Method Room Air Weight: 50.819 kg Body Mass Index (BMI) 21.2 Intake & Output: Intake and Output for Last 24 Hours 10/06/22 10/07/22 10/08/22 23:59 23:59 23:59 Intake Total 760 / 760 700 / 700 50 / 50 Balance 760 / 760 700 / 700 50 / 50 Medical Nutrition Assessment Dietitian: Malnutrition Criteria Met Start: 10/07/22 14:41 Freq: Status: Active Protocol: Document 10/07/22 14:41 JAYMIE (Rec: 10/07/22 14:41 JAYMIE [id number]) Nutrition Malnutrition Evidence of Malnutrition Exists Yes Malnutrition (moderate): Acute Illness/Injury Evidenced By Suboptimal Energy Intake ( Moderate),Weight Loss (Severe) Intake Problem Inadequate Oral Intake Etiology related to GI dysfunction/abd pain Signs/Symptoms as evidenced by 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 Lab / Micro Data Result Diagrams: 10/06/22 05:40 10/06/22 05:40 Labs: Laboratory Results - last 24 hr 10/08/22 07:43: TSH 37.60 H Micro: Microbiology 10/06/22 16:20 Urine, Clean Catch Urine Culture - Final Mixed Gram Positive Organisms 10/07/22 05:20 Nasal Secretion SARS-CoV-2 Antigen (Rapid) - Final 10/05/22 23:00 Nasal Secretion SARS-CoV-2 Antigen (Rapid) - Final Assessment & Plan Assessment/Plan (1) Kidney stones: (2) Pyelonephritis: (3) Sepsis: (4) Pneumatosis intestinalis: PLAN: Plan Urine culture growing less than 10K contaminants and patient is asymptomatic and on antibiotics. We will plan for stent removal early next week. I will have the office coordinate.
[2022-10-08 15:44] VITALS: BP 107/61; PULSE 74; RESP 16; TEMP 36.5; O2SAT 97
[2022-10-08] MEDS: 0.9% Saline Lock 10 ML Syringe IV (17:30)
[2022-10-09] MEDS: Citalopram 40 MG TABLET PO (05:11)
[2022-10-09] MEDS: Sodium Bicarbonate 650 MG Tablet PO ×3 (05:11→22:17)
[2022-10-09] MEDS: Cholecalciferol (VIT D3) 25 MCG TABLET (1,000 UNITS) PO (05:11)
[2022-10-09] MEDS: buPROPion (XL) 150 MG TABLET.XL PO (05:11)
[2022-10-09] MEDS: Levothyroxine 50 MCG Tablet PO (05:12)
[2022-10-09] MEDS: Potassium Chloride Oral Tablet 20 MEQ PO (09:09)
[2022-10-09] MEDS: Acetaminophen 500 MG Tablet 1000 MG PO (11:23)
[2022-10-09 16:00] VITALS: BP 116/66; PULSE 76; RESP 16; TEMP 36.8; O2SAT 95
[2022-10-09] MEDS: 0.9% Saline Lock 10 ML Syringe IV (17:41)
[2022-10-10] MEDS: 0.9% Saline Lock 10 ML Syringe IV ×2 (05:27→17:21)
[2022-10-10] MEDS: Levothyroxine 50 MCG Tablet PO (05:28)
[2022-10-10] MEDS: Citalopram 40 MG TABLET PO (05:28)
[2022-10-10] MEDS: Cholecalciferol (VIT D3) 25 MCG TABLET (1,000 UNITS) PO (05:28)
[2022-10-10] MEDS: buPROPion (XL) 150 MG TABLET.XL PO (05:28)
[2022-10-10] MEDS: Sodium Bicarbonate 650 MG Tablet PO ×3 (05:28→21:20)
[2022-10-10] MEDS: Potassium Chloride Oral Tablet 20 MEQ PO (08:06)
[2022-10-10 10:00] VITALS: RESP 18
--- NOTE | 2022-10-10 13:45 | NURSING ---
Resident educated on the COVID 19 Vaccine. She does not want to receive a Booster at this time.
[2022-10-10 15:51] VITALS: BP 111/59; PULSE 79; RESP 16; TEMP 36.6; O2SAT 96
[2022-10-11] MEDS: Citalopram 40 MG TABLET PO (05:18)
[2022-10-11] MEDS: buPROPion (XL) 150 MG TABLET.XL PO (05:18)
[2022-10-11] MEDS: Levothyroxine 50 MCG Tablet PO (05:18)
[2022-10-11] MEDS: Cholecalciferol (VIT D3) 25 MCG TABLET (1,000 UNITS) PO (05:19)
[2022-10-11] MEDS: 0.9% Saline Lock 10 ML Syringe IV ×3 (05:19→17:37)
[2022-10-11] MEDS: Sodium Bicarbonate 650 MG Tablet PO ×3 (05:19→20:13)
[2022-10-11] MEDS: Potassium Chloride Oral Tablet 20 MEQ PO (07:52)
--- NOTE | 2022-10-11 10:08 | CASEMGMT ---
Social Work BIMS () and PHQ-9 (01/02) completed for MDS assessment. Arely Marlow MSW SUBWAY OPERATOR
--- NOTE | 2022-10-11 10:09 | CASEMGMT ---
Social Work BIMS () and PHQ-9 (03/02) completed for MDS assessment. Arely Marlow MSW MIDDLEWARE ARCHITECT
[2022-10-11 15:05] VITALS: BP 105/57; PULSE 85; RESP 15; TEMP 36.9; O2SAT 96
[2022-10-11 16:39] VITALS: PULSE 81; RESP 16; O2SAT 96
--- NOTE | 2022-10-11 17:11 | NURSING ---
DR CELAYA UPDATED ON TSH LEVEL, FAMILY ASKING ABOUT RECHECK OR DOSE CHANGE TO SYNTHROID. NEW ORDER SYNTHROID INCREASED TO 75MCG. PT UPDATED.
[2022-10-12 05:29] VITALS: BP 114/73; PULSE 66
[2022-10-12] MEDS: Sodium Bicarbonate 650 MG Tablet PO ×3 (05:29→22:32)
[2022-10-12] MEDS: Cholecalciferol (VIT D3) 25 MCG TABLET (1,000 UNITS) PO (05:30)
[2022-10-12] MEDS: buPROPion (XL) 150 MG TABLET.XL PO (05:30)
[2022-10-12] MEDS: Citalopram 40 MG TABLET PO (05:30)
[2022-10-12] MEDS: Levothyroxine 75 MCG Tablet PO (05:31)
[2022-10-12] MEDS: 0.9% Saline Lock 10 ML Syringe IV ×3 (05:32→22:32)
[2022-10-12] MEDS: Potassium Chloride Oral Tablet 20 MEQ PO (08:23)
--- NOTE | 2022-10-12 08:35 | NURSING ---
Education Trainer Note; MDS complete
--- NOTE | 2022-10-12 09:35 | CASEMGMT ---
Social Work IDT met with patient for care plan meeting. Discussed patient's progress in PT/OT/SN. Educated to Medicare benefit. Pt is on IV ATB through 10/17. Pt is doing well with therapy. Pt/IDT in agreement to set DC for 10/18. Pt declines continued therapy, nursing or any DME needs at DC. Family to transport. Plan: DC home alone 10/18, with no needs. IRWIN [place] [employer]
[2022-10-12 14:23] VITALS: BP 126/65; PULSE 75; RESP 17; TEMP 36.1; O2SAT 97
--- NOTE | 2022-10-12 20:16 | DS.PCM_ITS ---
Providers Date of Admission: 10/05/22 Primary Care Physician: Dr. Elliot Kang MD Consultations 10/05/22 18:50 Consult: Urology Routine Consulting Provider: Minal Morrison Reason for Consult: Ureteral stent EMERGENT Consult: No MD Notified: Yes Date Notified: 10/05/22 Time Notified: 18:50 Method of Notification: Verbal Reason For Visit: ABDOMINAL PAIN Diagnosis Discharge Diagnosis (1) Kidney stones: Status: Acute Code(s): N20.0 - Calculus of kidney (2) Pyelonephritis: Status: Acute Code(s): N12 - Tubulo-interstitial nephritis, not specified as acute or chronic (3) Sepsis: Status: Acute Code(s): A41.9 - Sepsis, unspecified organism (4) Pneumatosis intestinalis: Status: Acute Code(s): K63.89 - Other specified diseases of intestine Plan 77 year old female with below past medical history hospitalized for sepsis seco ndary to Pseudomonas pyelonephritis after right ureteral stent, complicated by pneumatosis intestinale, admitted to TCU with debility, here for rehabilitation, strengthening, intravenous antibiotics, prior to discharge home alone. * Debility - PT/OT. * Pain - Tylenol 1000mg q6h prn pain (1-5), Oxycodone 5mg q4h prn pain (6-10). * Bowel - senna/colace 1 tablet bid, MOM 30ml daily prn. * Adult immunization - Administer pneumonia vaccine, covid19 vaccine, flu vaccine as appropriate. * DVT prophylaxis - Hold. * Shortness of breath - Albuterol 2 puffs q4h prn. 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 * P. Aeruginosa pyelonephritis - Cefepime 1gm iv q12h thru 10/17/2022, consult Dr. Morrison for right ureteral stent removal. * Hypothyroidism - Levothyroxine 50mcg daily. * Anxiety - Lorazepam 0.5mg bid prn, stable chronic long-term use, GDR not recommended. * Dysuria - Azo 190mg tid prn. * Hypokalemia - KCL 20meq daily. * Metabolic acidosis - sodium bicarb 650mg tid. * Vitamin D deficiency - D3 25mcg daily. Medications at Discharge Home Medications bupropion HCl 150 mg 24 hr tablet, extended release (Wellbutrin XL) 150 mg PO QAM quit smoking 11/28/18 citalopram 40 mg tablet 40 mg PO DAILY Anxiety 04/24/19 cyanocobalamin (vitamin B-12) 1,000 mcg/mL injection solution 100 mcg IM Q30D Supplement 10/08/19 cholecalciferol (vitamin D3) 25 mcg (1,000 unit) capsule (Vitamin D3) 25 mcg PO DAILY Supplement 10/09/21 sodium bicarbonate 650 mg tablet 650 mg PO TID supplement 10/09/21 phenazopyridine 200 mg tablet (Pyridium) 200 mg PO TID PRN PRN Bladder Spasms 7 days #30 tabs 08/10/22 levothyroxine 75 mcg tablet 75 mcg PO DAILY 30 days #30 tabs 10/12/22 potassium chloride 20 mEq tablet,extended release(part/cryst) (Klor-Con M) 20 meq PO DAILYCM 30 days #30 tabs 10/12/22 Hospital Course Operations None Procedures - (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 stent removal.) Summary of Care Provided Minutes Spent on Discharge: 35 Hospital Course: 77 year old female with below past medical history hospitalized for sepsis secondary to Pseudomonas pyelonephritis after right ureteral stent, complicated by pneumatosis intestinale, admitted to TCU with debility, here for rehabilitation, strengthening, intravenous antibiotics, prior to discharge home alone. 10/13/2022 Dr. Morrison removed right ureteral stent. Discharge home alone 10/18/2022, No needs. Physical Exam Const alert General Appearance: cooperative HEENT normocephalic Eyes PERRL and EOMs intact bilaterally Neck supple, no JVD and no carotid bruits Resp normal respiratory effort, normal air movement and clear to auscultation bilaterally Cardio regular rate and regular rhythm GI normal to inspection, nondistended, normoactive bowel sounds, non-tender and non-distended GI Narrative: Colostomy. Extremity normal capillary refill General Extremity: Negative for edema Skin no rashes or lesions noted General Skin Exam: no breakdown Psych affect normal Appearance: appropriate Medical Records Data Medical Nutrition Assessment Dietitian: Malnutrition Criteria Met Start: 10/07/22 14:41 Freq: Status: Active Protocol: Document 10/07/22 14:41 [email or web address] (Rec: 10/07/22 14:41 SLA [id number]) Nutrition Malnutrition Evidence of Malnutrition Exists Yes Malnutrition (moderate): Acute Illness/Injury Evidenced By Suboptimal Energy Intake ( Moderate),Weight Loss (Severe) Intake Problem Inadequate Oral Intake Etiology related to GI dysfunction/abd pain Signs/Symptoms as evidenced by 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 Weight / BMI Weight Weight: 51.71 kg Body Mass Index (BMI) 21.2 ABG / Lab / Microbiology Data Result Diagrams: 10/06/22 05:40 10/06/22 05:40 Microbiology: Microbiology 10/09/22 07:50 Nasal Secretion SARS-CoV-2 Antigen (Rapid) - Final 10/06/22 16:20 Urine, Clean Catch Urine Culture - Final Mixed Gram Positive Organisms 10/07/22 05:20 Nasal Secretion SARS-CoV-2 Antigen (Rapid) - Final 10/05/22 23:00 Nasal Secretion SARS-CoV-2 Antigen (Rapid) - Final D/C Instructions Discharge Diet: No restrictions Discharge Activity: Return to Normal Activity, May Shower and Use Walker Weight Bearing Status: Weight bearing as tolerated Call your doctor if you observe: Fever of 101 or Higher, Inability to urinate, Inability to have a bowel movement, Shortness of breath, Dizziness, Fainting spells, Swelling in the ankles, Chest pain and Uncontrolled pain Additional Instructions: Discharge home alone 10/18/2022, No needs. Please Follow Up With: Minal Morrison MD When: As scheduled. Meaningful Use Info Meaningful Use Diagnoses (Choose all that apply): None applicable Discharge Plan Admission Admit Date/Time: 10/05/22 17:35 Primary Reason for Your Visit: Debility. Attending Provider: Elliot Kang Chi Primary Care Provider: Elliot Kang Chi Consulting Providers: Minal Morrison Instructions Additional Instructions / Restrictions: Discharge home alone 10/18/2022, No needs. Discharge Orders/Prescriptions Prescriptions: New levothyroxine 75 mcg Tablet 75 mcg PO DAILY 30 Days Qty: 30 0RF potassium chloride [Klor-Con M20] 20 mEq Tablet,Er Particles/Crystals 20 meq PO DAILYCM 30 Days Qty: 30 0RF Continued bupropion HCl [Wellbutrin XL] 150 mg tablet extended release 24 hr 150 mg PO QAM citalopram 40 MG tablet 40 mg PO DAILY cyanocobalamin (vitamin B-12) 1,000 MCG/ML solution 100 mcg IM Q30D sodium bicarbonate 650 mg tablet 650 mg PO TID cholecalciferol (vitamin D3) [Vitamin D3] 25 mcg (1,000 unit) Capsule 25 mcg PO DAILY phenazopyridine [Pyridium] 200 mg tablet 200 mg PO TID PRN PRN (Reason: Bladder Spasms) 7 Days Qty: 30 0RF Discontinued albuterol sulfate [Ventolin HFA] 90 mcg/actuation HFA aerosol inhaler 2 puff INHALATION Q4H PRN (Reason: shortness of breath or wheezing) Qty: 18 6RF oxycodone 5 mg tablet 5 mg PO Q6H PRN (Reason: pain) 3 Days Qty: 12 0RF Rx Instructions: pain scale 4-10 potassium chloride 20 mEq Tablet Extended Release 20 meq PO DAILY Label Comments: patient takes in crushed in applesauce cephalexin [cephalexin] 500 mg capsule 500 mg PO Q12 5 Days Qty: 10 0RF levothyroxine 50 mcg tablet 50 mcg PO DAILY lorazepam [Ativan] 0.5 mg Tablet 0.5 mg PO BID PRN (Reason: Anxiety) midodrine 2.5 mg Tablet 2.5 mg PO BID PRN (Reason: low BP) Rx Instructions: do not give last dose of day after 6PM or within 4 hrs of bedtime cefepime 1 gram Piggyback 1 g IV Q12H acetaminophen [Tylenol] 325 mg tablet 500 mg PO Q6H PRN PRN (Reason: Pain) ondansetron 4 mg tablet,disintegrating 4 mg PO Q6H PRN PRN (Reason: nausea and vomiting) Referrals / Follow Up: Elliot Kang Chi, MD [Primary Care Provider] - Within 1 Week Disposition Disposition (needs filled in before D/C Order can be placed): Home, Self Care
[2022-10-13] MEDS: Sodium Bicarbonate 650 MG Tablet PO ×3 (05:00→21:20)
[2022-10-13] MEDS: buPROPion (XL) 150 MG TABLET.XL PO (05:00)
[2022-10-13] MEDS: Citalopram 40 MG TABLET PO (05:00)
[2022-10-13] MEDS: Cholecalciferol (VIT D3) 25 MCG TABLET (1,000 UNITS) PO (05:00)
[2022-10-13] MEDS: 0.9% Saline Lock 10 ML Syringe IV (05:02)
[2022-10-13] MEDS: Levothyroxine 75 MCG Tablet PO (05:02)
[2022-10-13 05:49] LABS: Absolute Lymphocyte Count 1.69 X10^3/uL (0.83-4.51); Absolute Neutrophil Count 4.1 X10^3/uL (2.0-7.7); Basophil# 0.03 X10^3/uL; Basophil% 0.4 % (0-1); Eosinophil# 0.36 X10^3/uL; Eosinophils% 5.3 % (0-5); Hematocrit 33.4 % (37-47); Hemoglobin 10.4 g/dL (12.0-15.0); Lymphocyte # 1.69 X10^3/ul (0.83-4.51); Lymphocyte % 25.1 % (19-41); Mean Corp Hgb Conc 31.1 g/dL (32-36); Mean Corpuscular Hgb 28.8 pg (27.0-32.0); Mean Corpuscular Volume 92.5 fL (81-99); Mean Platelet Vol. 8.7 fl (6.2-12.0); Monocyte# 0.56 X10^3/uL; Monocyte% 8.3 % (0-10); NRBC Flagged by Analyzer 0 % (0-5); Neutrophil # 4.06 X10^3/uL (2.7-7.7); Neutrophil % 60.3 % (47-70); Platelet Count 241 K/mm3 (150-450); RBC Distribution Width CV 15.2 % (11.6-14.6); RBC Distribution Width SD 51.8 fl (35.1-43.9); Red Blood Count 3.61 M/mm3 (4.2-5.4); White Blood Count 6.7 K/mm3 (4.4-11.0)
[2022-10-13 06:15] LABS: Anion Gap 6 (5-15); BUN 17 mg/dL (7-18); BUN/Creat Ratio 13.4 RATIO (10-20); Calcium,Total 8.9 mg/dL (8.5-10.1); Chloride 111 mmol/L (98-107); Creatinine, Serum 1.27 mg/dL (0.55-1.02); EST Glomerular Filtration Rate 43 mL/min (>60); Est Glom Filt Rate - Afr Amer 52 mL/min (>60); Estimated Creatinine Clearance 27.99 ml/min; Glucose 87 mg/dL (74-106); Potassium 4.1 mmol/L (3.5-5.1); Sodium Level 140 mmol/L (136-145)
--- NOTE | 2022-10-13 07:57 | NURSING ---
Patient back to room after procedure, awake and oriented, very minimal pain. VSS.
[2022-10-13 07:59] VITALS: BP 118/67; PULSE 73; RESP 16; TEMP 36.5; O2SAT 97
[2022-10-13] MEDS: Potassium Chloride Oral Tablet 20 MEQ PO (08:51)
[2022-10-13] MEDS: Tuberculin,Purif.prot.deriv. 50 TU/ML Vial 0.1 ML ID (12:29)
[2022-10-13 15:48] VITALS: BP 108/68; PULSE 86; RESP 18; TEMP 36.9; O2SAT 94
--- NOTE | 2022-10-13 18:38 | NURSING ---
Labs faxed to ID this afternoon.
[2022-10-13 21:13] VITALS: PULSE 75; RESP 18; O2SAT 96
[2022-10-14] MEDS: Cholecalciferol (VIT D3) 25 MCG TABLET (1,000 UNITS) PO (04:54)
[2022-10-14] MEDS: buPROPion (XL) 150 MG TABLET.XL PO (04:54)
[2022-10-14] MEDS: Sodium Bicarbonate 650 MG Tablet PO ×3 (04:54→21:26)
[2022-10-14] MEDS: Levothyroxine 75 MCG Tablet PO (04:54)
[2022-10-14] MEDS: Citalopram 40 MG TABLET PO (04:55)
[2022-10-14] MEDS: Potassium Chloride Oral Tablet 20 MEQ PO (09:01)
[2022-10-14 14:23] VITALS: BP 119/79; PULSE 93; RESP 14; TEMP 36.5; O2SAT 95
[2022-10-14] MEDS: 0.9% Saline Lock 10 ML Syringe IV ×2 (17:05→18:40)
[2022-10-15] MEDS: buPROPion (XL) 150 MG TABLET.XL PO (05:55)
[2022-10-15] MEDS: Levothyroxine 75 MCG Tablet PO (05:55)
[2022-10-15] MEDS: Citalopram 40 MG TABLET PO (05:55)
[2022-10-15] MEDS: Cholecalciferol (VIT D3) 25 MCG TABLET (1,000 UNITS) PO (05:55)
[2022-10-15] MEDS: Sodium Bicarbonate 650 MG Tablet PO ×3 (05:55→20:01)
[2022-10-15] MEDS: 0.9% Saline Lock 10 ML Syringe IV ×2 (06:14→17:29)
[2022-10-15] MEDS: Potassium Chloride Oral Tablet 20 MEQ PO (08:28)
--- NOTE | 2022-10-15 12:27 | NURSING ---
Message from [facility] office asking if stent was going to be removed. Unsure if they were updated, called office and left message notifying them that stent had been removed.
[2022-10-15 13:27] VITALS: BP 118/69; PULSE 83; RESP 16; TEMP 36.6; O2SAT 99
[2022-10-15] MEDS: Acetaminophen 500 MG Tablet 1000 MG PO ×2 (17:28→23:43)
[2022-10-15 21:00] VITALS: PULSE 82; RESP 18; O2SAT 97
[2022-10-16] MEDS: Sodium Bicarbonate 650 MG Tablet PO ×3 (05:33→20:12)
[2022-10-16] MEDS: Cholecalciferol (VIT D3) 25 MCG TABLET (1,000 UNITS) PO (05:33)
[2022-10-16] MEDS: buPROPion (XL) 150 MG TABLET.XL PO (05:33)
[2022-10-16] MEDS: Levothyroxine 75 MCG Tablet PO (05:33)
[2022-10-16] MEDS: Citalopram 40 MG TABLET PO (05:33)
[2022-10-16] MEDS: Potassium Chloride Oral Tablet 20 MEQ PO (08:17)
[2022-10-16 09:17] VITALS: PULSE 82; RESP 16; O2SAT 96
[2022-10-16 14:26] VITALS: BP 117/77; PULSE 85; RESP 16; TEMP 36.2; O2SAT 97
[2022-10-17] MEDS: Cholecalciferol (VIT D3) 25 MCG TABLET (1,000 UNITS) PO (05:15)
[2022-10-17] MEDS: Citalopram 40 MG TABLET PO (05:15)
[2022-10-17] MEDS: buPROPion (XL) 150 MG TABLET.XL PO (05:15)
[2022-10-17] MEDS: Sodium Bicarbonate 650 MG Tablet PO ×3 (05:15→20:47)
[2022-10-17] MEDS: Levothyroxine 75 MCG Tablet PO (05:15)
[2022-10-17] MEDS: Potassium Chloride Oral Tablet 20 MEQ PO (08:55)
--- NOTE | 2022-10-17 14:19 | CASEMGMT ---
Social Work BIMS and PHQ9 interviews completed on this date for MDS assessment. BIMS score 15/15, PHQ9 score 0/29. JOHNATHON Crabtree
[2022-10-17 14:23] VITALS: BP 125/73; PULSE 79; RESP 16; TEMP 36.4; O2SAT 96
[2022-10-18] MEDS: buPROPion (XL) 150 MG TABLET.XL PO (05:42)
[2022-10-18] MEDS: Sodium Bicarbonate 650 MG Tablet PO (05:42)
[2022-10-18] MEDS: Cholecalciferol (VIT D3) 25 MCG TABLET (1,000 UNITS) PO (05:42)
[2022-10-18] MEDS: Citalopram 40 MG TABLET PO (05:42)
[2022-10-18] MEDS: Levothyroxine 75 MCG Tablet PO (05:42)
--- NOTE | 2022-10-18 07:58 | MDS.RN ---
Information for the mds was obtained from review of the clinical record, interview of resident, staff, and direct observation of resident's care.
[2022-10-18] MEDS: Potassium Chloride Oral Tablet 20 MEQ PO (08:18)
[2022-10-18 10:00] VITALS: RESP 16
[2022-10-18 13:50] VITALS: BP 126/76; PULSE 90; RESP 18; TEMP 36.6; O2SAT 96
== END 2022-10-18 13:52 | disposition home or self-care (01) | DRG 949 ==
PROVIDERS: Admitting Provider Family Medicine Geriatric Medicine; PCP Family Medicine Geriatric Medicine; Visit Provider Family Medicine Geriatric Medicine
DX: T83.59 Infection and inflammatory reaction due to prosthetic device, implant and graft in urinary system (principal); N12 Tubulo-interstitial nephritis, not specified as acute or chronic; K50.90 Crohn's disease, unspecified, without complications; N18.32 Chronic kidney disease, stage 3b; J44.9 Chronic obstructive pulmonary disease, unspecified; Z93.3 Colostomy status; E03.9 Hypothyroidism, unspecified; E87.6 Hypokalemia; E55.9 Vitamin D deficiency, unspecified; F41.9 Anxiety disorder, unspecified; B96.5 Pseudomonas (aeruginosa) (mallei) (pseudomallei) as the cause of diseases classified elsewhere; K63.89 Other specified diseases of intestine; F32.A Depression, unspecified; Z87.891 Personal history of nicotine dependence; Y73.2 Prosthetic and other implants, materials and accessory gastroenterology and urology devices associated with adverse incidents; Z79.899 Other long term (current) drug therapy
CPT/HCPCS: 36415; 80048; 84443; 85025; 87086; 87088; 87426; 87811; 97110; 97116; 97162; 97166; 97530; 97535; 97802; J7050; A4216; J3420

== ENCOUNTER 2022-10-13 06:04 | Day surgery (SDC) | payer MEDICARE, OTHER, SELFPAY ==
[2022-10-13 06:28] VITALS: BP 115/70; PULSE 68; RESP 14; TEMP 36.7; O2SAT 95
[2022-10-13] MEDS: Lidocaine Jelly 2% 20 ML Syringe (URO-JET) 1 APPLIC (07:33)
[2022-10-13 07:40] VITALS: BP 115/70; BP 131/70; PULSE 68; RESP 16; TEMP 37.6; O2SAT 100
--- NOTE | 2022-10-13 07:46 | DCINST_ITS ---
Discharge Instructions Diet Discharge Diet: No restrictions Activity Discharge Activity: Return to Normal Activity Dressing / Incision Call your doctor if your incision/area has: Continuous Slow Oozing and Foul Smelling Discharge Call your doctor if you observe: Fever of 101 or Higher, Inability to urinate and Inability to have a bowel movement Follow Up Care Please Follow Up With: Minal Morrison MD When: 2 to 3 weeks after discharge from the TCU, call for appointment Test Results: Test results from this visit will be discussed in further detail at your follow- up appointment, if applicable. Discharge Plan Admission Attending Provider: Minal Morrison Primary Care Provider: Elliot Kang Chi Discharge Orders/Prescriptions Prescriptions: Continued bupropion HCl [Wellbutrin XL] 150 mg tablet extended release 24 hr 150 mg PO QAM citalopram 40 MG tablet 40 mg PO DAILY cyanocobalamin (vitamin B-12) 1,000 MCG/ML solution 100 mcg IM Q30D sodium bicarbonate 650 mg tablet 650 mg PO TID cholecalciferol (vitamin D3) [Vitamin D3] 25 mcg (1,000 unit) Capsule 25 mcg PO DAILY phenazopyridine [Pyridium] 200 mg tablet 200 mg PO TID PRN PRN (Reason: Bladder Spasms) 7 Days Qty: 30 0RF levothyroxine 75 mcg Tablet 75 mcg PO DAILY 30 Days Qty: 30 0RF potassium chloride [Klor-Con M20] 20 mEq Tablet,Er Particles/Crystals 20 meq PO DAILYCM 30 Days Qty: 30 0RF Referrals / Follow Up: Elliot Kang Chi, MD [Primary Care Provider] - Disposition Disposition (needs filled in before D/C Order can be placed): [facility]
--- NOTE | 2022-10-13 07:48 | OP.PCM_ITS ---
Report of Operation Date of Procedure: 10/13/22 Pre-Operative Diagnosis: Indwelling right ureteral stent, urinary tract infecti ons Post-Operative Diagnosis: Same Surgery/Procedure Performed:: Cystoscopy, removal of right ureteral stent Surgeon: Minal Morrison Type of Anesthesia: Local Description of Procedure: The patient is a 77-year-old female who underwent a right ureteroscopy with laser lithotripsy and stone removal and now presents for removal of her right ureteral stent. She is currently in the TCU after urosepsis and deconditioning. She is currently on intravenous antibiotics through a PICC line. Informed consent has been obtained. The patient was taken to the operating room and placed on the operating room table. She was placed in dorsal lithotomy position and was prepped in usual fashion. The cystoscope was inserted through the urethra under direct visualization into the urinary bladder. The ureteral stent was observed, grasped and removed without difficulty. The patient was then transferred to the TCU bed and taken to the ACU. There were no complications during this procedure. Complications None Admit VTE Documentation VTE Present on Admission: No VTE Mechan Device Prophylaxis: None VTE Pharm Prophylaxis ordered?: No
== END 2022-10-13 08:00 | disposition skilled nursing facility (03) ==
LOC: SDC 06:06 → AC 06:06
PROVIDERS: PCP Family Medicine Geriatric Medicine; Referring Provider Urology; Visit Provider Urology
PROC: (CPT 52310; principal; 2022-10-13 07:20)
DX: Z46.6 Encounter for fitting and adjustment of urinary device (principal); J44.9 Chronic obstructive pulmonary disease, unspecified; N18.32 Chronic kidney disease, stage 3b; E03.9 Hypothyroidism, unspecified
CPT/HCPCS: 52310

== ENCOUNTER → 2022-11-14 | Outpatient (CLI) | payer MEDICARE, OTHER, SELFPAY ==
[2022-11-14 17:52] LABS: Hematocrit 40.8 % (37-47); Hemoglobin 12.9 g/dL (12.0-15.0); Mean Corp Hgb Conc 31.6 g/dL (32-36); Mean Corpuscular Hgb 28.8 pg (27.0-32.0); Mean Corpuscular Volume 91.1 fL (81-99); Mean Platelet Vol. 8.7 fl (6.2-12.0); Platelet Count 241 K/mm3 (150-450); RBC Distribution Width SD 46.9 fl (35.1-43.9); Red Blood Count 4.48 M/mm3 (4.2-5.4); White Blood Count 9.2 K/mm3 (4.4-11.0)
[2022-11-14 18:21] LABS: Albumin, Serum 3.6 g/dL (3.2-5.0); BUN 19 mg/dL (7-18); BUN/Creat Ratio 12.9 RATIO (10-20); Calcium,Total 9.6 mg/dL (8.5-10.1); Chloride 109 mmol/L (98-107); Creatinine, Serum 1.47 mg/dL (0.55-1.02); EST Glomerular Filtration Rate 37 mL/min (>60); Est Glom Filt Rate - Afr Amer 44 mL/min (>60); Glucose 91 mg/dL (74-106); Phosphorus 3.9 mg/dL (2.5-4.9); Potassium 3.8 mmol/L (3.5-5.1); Sodium Level 137 mmol/L (136-145)
== END | disposition home or self-care (01) ==
PROVIDERS: PCP Family Medicine Geriatric Medicine; Visit Provider Internal Medicine Nephrology
DX: N17.9 Acute kidney failure, unspecified (principal); N10 Acute pyelonephritis
CPT/HCPCS: 36415; 80069; 85027; 87086; 87088

== ENCOUNTER → 2022-12-05 | Outpatient (CLI) | payer MEDICARE, OTHER, SELFPAY ==
[2022-12-05 11:26] LABS: Thyroid Stim Hormone (TSH) 0.35 uIU/mL (0.358-3.74)
== END | disposition home or self-care (01) ==
LOC: LAB 09:35
PROVIDERS: PCP Family Medicine Geriatric Medicine; Referring Provider Family Medicine Geriatric Medicine; Visit Provider Family Medicine Geriatric Medicine
DX: E03.9 Hypothyroidism, unspecified (principal)
CPT/HCPCS: 36415; 84443

== ENCOUNTER → 2023-01-30 | Outpatient (CLI) | payer MEDICARE, OTHER, SELFPAY ==
--- NOTE | 2023-01-30 13:25 | CT_ITS ---
STUDY: CT CHEST, ABDOMEN T PELVIS WITH CONTRAST REASON FOR EXAM: Female, 77 years old. NSCLC H/O ANAL CANCER RADIATION DOSAGE (If Supplied By Facility): CTDIvol = ( 9.74 ) mGy, DLP = ( 445.21 ) mGycm TECHNIQUE: Transaxial imaging was performed following intravenous administration of IV 100mL Isovue-370. Multiplanar coronal and sagittal images were reformatted. Individualized dose optimization techniques were used for this CT. COMPARISON: Comparison is made with prior study dated September 28, 2022. FINDINGS: CHEST Hyperinflation. Mild degree of emphysematous changes. No mass lesion is seen. There is no demonstrated pleural abnormality. Stable minimal anterior pericardial thickening. Normal mediastinum. Normal hilar regions. Normal unenhanced pulmonary arteries. Normal aorta arch and descending thoracic aorta. There are multi-level degenerative changes of the thoracic spine. Stable small bilateral adrenal nodules. ABDOMEN The visualized lung bases are unremarkable. The visualized portions of the heart are within normal limits. Normal liver. The patient is status post cholecystectomy. Normal spleen. Normal pancreas. Stable small bilateral low-density adrenal nodules. There is evidence of bilateral cortical thinning of both kidneys. Stable small cyst in the upper pole of the left kidney. Stable nonobstructive 3 mm calculus in the lower pole calyx of the right kidney. No evidence of hydronephrosis at this time. Normal visualized stomach. Normal small intestine. Once again, this evidence of a colostomy in the left lower quadrant. There is fluid filled mildly distended colon to the level of the colostomy site. This has improved as compared to prior study. Normal abdominal aorta. Normal inferior vena cava. Normal retroperitoneum. Normal abdominal wall. Normal osseous structures. PELVIS Normal urinary bladder. CT/CT Chest, Abd, Pel w/Contrast IMPRESSION: Colostomy is seen in the left lower quadrant with persistent fluid filled dilatation of the right hemicolon to the site of the colostomy. No evidence of hydronephrosis at this time. The right ureteral stent has been removed. Stable small bilateral adrenal nodules. Electronically Signed: Chriss Boateng MD at 16:50 EDT ,
[2023-01-30 13:46] LABS: CREATININE FINGERSTICK 1.1 mg/dL (0.55-1.02)
== END | disposition home or self-care (01) ==
LOC: CT 13:16
PROVIDERS: PCP Family Medicine Geriatric Medicine; Referring Provider Internal Medicine Medical Oncology; Visit Provider Internal Medicine Medical Oncology
DX: C34.90 Malignant neoplasm of unspecified part of unspecified bronchus or lung (principal); E03.9 Hypothyroidism, unspecified
CPT/HCPCS: 36415; 71260; 74177; 84443; Q9967

== ENCOUNTER → 2023-01-30 | Outpatient (CLI) | payer MEDICARE, OTHER, SELFPAY | END | disposition home or self-care (01) | LOC: LAB 13:40 | PROVIDERS: PCP Family Medicine Geriatric Medicine; Referring Provider Family Medicine Geriatric Medicine; Visit Provider Family Medicine Geriatric Medicine | DX: E03.9 Hypothyroidism, unspecified (principal) | CPT/HCPCS: 36415; 84443 ==

== ENCOUNTER → 2023-02-06 | Outpatient (CLI) | payer MEDICARE, OTHER, SELFPAY ==
[2023-02-06 17:07] LABS: Absolute Lymphocyte Count 2.52 X10^3/uL (0.83-4.51); Absolute Neutrophil Count 5.9 X10^3/uL (2.0-7.7); Basophil# 0.02 X10^3/uL; Basophil% 0.2 % (0-1); Eosinophil# 0.22 X10^3/uL; Eosinophils% 2.4 % (0-5); Hematocrit 40.1 % (37-47); Hemoglobin 12.5 g/dL (12.0-15.0); Lymphocyte # 2.52 X10^3/ul (0.83-4.51); Mean Corp Hgb Conc 31.2 g/dL (32-36); Mean Corpuscular Hgb 28.5 pg (27.0-32.0); Mean Corpuscular Volume 91.6 fL (81-99); Mean Platelet Vol. 9.2 fl (6.2-12.0); Monocyte% 6.4 % (0-10); NRBC Flagged by Analyzer 0 % (0-5); Neutrophil # 5.94 X10^3/uL (2.7-7.7); Neutrophil % 63.6 % (47-70); Platelet Count 222 K/mm3 (150-450); RBC Distribution Width CV 13.6 % (11.6-14.6); RBC Distribution Width SD 46.2 fl (35.1-43.9); Red Blood Count 4.38 M/mm3 (4.2-5.4); White Blood Count 9.3 K/mm3 (4.4-11.0)
[2023-02-06 17:54] LABS: ALB/GLOB Ratio 0.8 RATIO (0.9-2.4); AST(SGOT) 26 U/L (15-37); Alanine Aminotransfer ALT/SGPT 35 U/L (13-56); Albumin, Serum 3.4 g/dL (3.2-5.0); Alkaline Phosphatase 80 U/L (45-117); Anion Gap 8 (5-15); BUN 17 mg/dL (7-18); BUN/Creat Ratio 12.8 RATIO (10-20); Calcium,Total 9.5 mg/dL (8.5-10.1); Chloride 109 mmol/L (98-107); Creatinine, Serum 1.33 mg/dL (0.55-1.02); EST Glomerular Filtration Rate 41 mL/min (>60); Est Glom Filt Rate - Afr Amer 50 mL/min (>60); Globulin 4.4 g/dL (2.2-4.2); Glucose 86 mg/dL (74-106); Potassium 3.9 mmol/L (3.5-5.1); Protein, Total 7.8 g/dL (6.4-8.2); Sodium Level 140 mmol/L (136-145)
== END | disposition home or self-care (01) ==
LOC: POLAB3 14:46
PROVIDERS: PCP Family Medicine Geriatric Medicine; Visit Provider Family Medicine Geriatric Medicine
DX: R53.83 Other fatigue (principal); E55.9 Vitamin D deficiency, unspecified
CPT/HCPCS: 36415; 80053; 82306; 84443; 85025

== ENCOUNTER → 2023-03-20 | Outpatient (CLI) | payer MEDICARE, OTHER, SELFPAY ==
--- NOTE | 2023-03-20 09:23 | US_ITS ---
STUDY: RENAL ULTRASOUND - COMPLETE REASON FOR EXAM: Female, 77 years old. STONES, UTI, R FLANK PAIN TECHNIQUE: Ultrasound evaluation of the kidneys was performed with real-time and static munoz-scale imaging. COMPARISON: Comparison is made with prior study dated August 27, 2022. FINDINGS: RIGHT KIDNEY: Normal location of the right kidney, which is normal in size. The right kidney measures 8.3 cm x 4.5 cm x 5.1 cm. There is a normal cortex of the right kidney. The renal cortex measures 1.3 cm. Once again, several small cysts are seen. The largest cyst measures 1.3 cm x 1.3 cm x 1 cm. Multiple small nonobstructive calculi are seen. The largest measures 5 mm x 5 mm. There is no right hydronephrosis. DISTAL RIGHT URETER: There is non-visualization of the distal right ureter. There is no demonstrated right ureterovesical junction calculus. There is no demonstrated right ureteral jet. LEFT KIDNEY: Normal location of the left kidney, which is normal in size. The left kidney measures 8.8 cm x 5.2 cm x 4 cm cm. There is a normal cortex of the left kidney. The renal cortex measures 1.4 cm. There is an 8 mm x 8 mm x 7 mm cyst. There are no left renal calculi. There is no left hydronephrosis. DISTAL LEFT URETER: There is non-visualization of the distal left ureter. There is no demonstrated left ureterovesical junction calculus. There is no demonstrated left ureteral jet. BLADDER: The bladder was empty at the time of the examination. US/Kidney and Bladder IMPRESSION: Stable small bilateral renal cysts. Nonobstructive calculi in the right kidney. Electronically Signed: Chriss Boateng MD at 14:37 EDT ,
== END | disposition home or self-care (01) ==
LOC: US 09:23
PROVIDERS: PCP Family Medicine Geriatric Medicine; Referring Provider Urology; Visit Provider Urology
DX: N20.9 Urinary calculus, unspecified (principal); N39.0 Urinary tract infection, site not specified; R10.9 Unspecified abdominal pain
CPT/HCPCS: 76770

== ENCOUNTER → 2023-04-24 | Outpatient (CLI) | payer MEDICARE, OTHER, SELFPAY | END | disposition home or self-care (01) | LOC: LAB 13:40 | PROVIDERS: PCP Family Medicine Geriatric Medicine; Referring Provider Family Medicine Geriatric Medicine; Visit Provider Family Medicine Geriatric Medicine | DX: E03.9 Hypothyroidism, unspecified (principal) | CPT/HCPCS: 36415; 84443 ==

== ENCOUNTER → 2023-05-30 | Outpatient (CLI) | payer MEDICARE, OTHER, SELFPAY ==
[2023-05-30 12:44] LABS: Albumin, Serum 3.6 g/dL (3.2-5.0); BUN 12 mg/dL (7-18); BUN/Creat Ratio 9.2 RATIO (10-20); Calcium,Total 9.4 mg/dL (8.5-10.1); Chloride 109 mmol/L (98-107); EST Glomerular Filtration Rate 42 mL/min (>60); Est Glom Filt Rate - Afr Amer 51 mL/min (>60); Glucose 87 mg/dL (74-106); Phosphorus 3.1 mg/dL (2.5-4.9); Potassium 4.2 mmol/L (3.5-5.1); Sodium Level 137 mmol/L (136-145)
== END | disposition home or self-care (01) ==
LOC: POLAB3 11:47
PROVIDERS: PCP Family Medicine Geriatric Medicine; Visit Provider Internal Medicine Nephrology
DX: N17.9 Acute kidney failure, unspecified (principal)
CPT/HCPCS: 36415; 80069

== ENCOUNTER → 2023-06-21 | Outpatient (CLI) | payer MEDICARE, OTHER, SELFPAY | END | disposition home or self-care (01) | LOC: LAB.FUTURE 14:43 → POLAB3 06-22 04:15 | PROVIDERS: PCP Family Medicine Geriatric Medicine; Visit Provider Family Medicine Geriatric Medicine | DX: E03.9 Hypothyroidism, unspecified (principal) | CPT/HCPCS: 36415; 84443 ==

== ENCOUNTER → 2023-08-14 | Outpatient (CLI) | payer MEDICARE, OTHER, SELFPAY ==
[2023-08-14 16:41] LABS: Absolute Lymphocyte Count 3.16 X10^3/uL (0.83-4.51); Absolute Neutrophil Count 6.9 X10^3/uL (2.0-7.7); Basophil# 0.02 X10^3/uL; Basophil% 0.2 % (0-1); Eosinophils% 2.7 % (0-5); Hematocrit 42.5 % (37-47); Hemoglobin 13.3 g/dL (12.0-15.0); Lymphocyte # 3.16 X10^3/ul (0.83-4.51); Lymphocyte % 28.5 % (19-41); Mean Corp Hgb Conc 31.3 g/dL (32-36); Mean Corpuscular Hgb 28.8 pg (27.0-32.0); Mean Platelet Vol. 9.3 fl (6.2-12.0); Monocyte# 0.68 X10^3/uL; Monocyte% 6.1 % (0-10); NRBC Flagged by Analyzer 0 % (0-5); Neutrophil # 6.89 X10^3/uL (2.7-7.7); Neutrophil % 62.1 % (47-70); Platelet Count 215 K/mm3 (150-450); RBC Distribution Width SD 43.5 fl (35.1-43.9); Red Blood Count 4.62 M/mm3 (4.2-5.4); White Blood Count 11.1 K/mm3 (4.4-11.0)
[2023-08-14 17:10] LABS: Vitamin D,25 Hydroxy 27.8 ng/mL
[2023-08-14 17:19] LABS: ALB/GLOB Ratio 0.9 RATIO (0.9-2.4); AST(SGOT) 29 U/L (15-37); Alanine Aminotransfer ALT/SGPT 37 U/L (13-56); Albumin, Serum 3.6 g/dL (3.2-5.0); Alkaline Phosphatase 93 U/L (45-117); Anion Gap 10 (5-15); BUN 13 mg/dL (7-18); BUN/Creat Ratio 9.8 RATIO (10-20); Calcium,Total 9.4 mg/dL (8.5-10.1); Chloride 112 mmol/L (98-107); Cholesterol 184 mg/dL (200); Creatinine, Serum 1.32 mg/dL (0.55-1.02); EST Glomerular Filtration Rate 41 mL/min (>60); Est Glom Filt Rate - Afr Amer 50 mL/min (>60); Globulin 4.2 g/dL (2.2-4.2); Glucose 90 mg/dL (74-106); High Density Lipoprotein 64 mg/dL; Potassium 3.7 mmol/L (3.5-5.1); Protein, Total 7.8 g/dL (6.4-8.2); Sodium Level 141 mmol/L (136-145); Thyroid Stim Hormone (TSH) 0.75 uIU/mL (0.358-3.74); Triglycerides 241 mg/dL; Very Low Density Lipoprotein 48 mg/dL (5-40)
== END | disposition home or self-care (01) ==
LOC: LAB 15:36
PROVIDERS: PCP Family Medicine Geriatric Medicine; Referring Provider Family Medicine Geriatric Medicine; Visit Provider Family Medicine Geriatric Medicine
DX: R53.83 Other fatigue (principal); E55.9 Vitamin D deficiency, unspecified; E78.5 Hyperlipidemia, unspecified
CPT/HCPCS: 36415; 80053; 80061; 82306; 84443; 85025

== ENCOUNTER 2023-12-14 10:00 | Emergency (ER) | payer MEDICARE, OTHER, SELFPAY ==
[2023-12-14 10:02] VITALS: BP 133/75; PULSE 76; RESP 16; TEMP 36.1; O2SAT 96; BMI 23.8
[2023-12-14] MEDS: 0.9% Normal Saline (1000mL) 1,000 ML 1000 ML IV (11:07)
[2023-12-14 11:08] LABS: Mucous, Urine 0 SEEN /hpf (<or=2+)
[2023-12-14 11:11] LABS: Color, Urine Yellow (Yellow); Glucose, Dipstick Normal (Normal); Ketone-Dipstick Negative (Negative); Leukocyte Esterase-Dipstick 500 /ul (Negative); Nitrite-Dipstick Positive (Negative); Occult Blood-Urine 50 /ul (Negative); Protein-Dipstick 30 mg/dl (Negative); Specific Gravity, Urine 1.015 (1.002-1.030); Urine Bilirubin Dipstick Negative (Negative); Urine Clarity Sl. Cloudy (Clear); Urine Urobilinogen Normal (Normal)
[2023-12-14 11:11] LABS: Absolute Lymphocyte Count 2.19 X10^3/uL (0.83-4.51); Absolute Neutrophil Count 8.6 X10^3/uL (2.0-7.7); Basophil# 0.03 X10^3/uL; Basophil% 0.3 % (0-1); Eosinophil# 0.34 X10^3/uL; Eosinophils% 2.8 % (0-5); Hematocrit 45.5 % (37-47); Hemoglobin 14.4 g/dL (12.0-15.0); Lymphocyte # 2.19 X10^3/ul (0.83-4.51); Lymphocyte % 18.3 % (19-41); Mean Corp Hgb Conc 31.6 g/dL (32-36); Mean Corpuscular Volume 91.5 fL (81-99); Mean Platelet Vol. 8.9 fl (6.2-12.0); Monocyte# 0.78 X10^3/uL; Monocyte% 6.5 % (0-10); NRBC Flagged by Analyzer 0 % (0-5); Neutrophil % 71.8 % (47-70); Platelet Count 233 K/mm3 (150-450); RBC Distribution Width SD 43.8 fl (35.1-43.9); Red Blood Count 4.97 M/mm3 (4.2-5.4)
[2023-12-14 11:31] LABS: Bacteria 1+ /hpf (None Seen); Red Blood Cells-Urine 0-5 SEEN /hpf (0-5); Squamous Epithelial Cells - UA 0-5 SEEN /hpf (5-10); White Blood Cells 25-50 SEEN /hpf (0-5)
[2023-12-14 11:42] LABS: ALB/GLOB Ratio 0.9 RATIO (0.9-2.4); AST(SGOT) 22 U/L (15-37); Alanine Aminotransfer ALT/SGPT 42 U/L (13-56); Albumin, Serum 3.6 g/dL (3.2-5.0); Alkaline Phosphatase 109 U/L (45-117); Anion Gap 5 (5-15); BUN 19 mg/dL (7-18); BUN/Creat Ratio 14.1 RATIO (10-20); Calcium,Total 9.4 mg/dL (8.5-10.1); Chloride 111 mmol/L (98-107); Creatinine, Serum 1.35 mg/dL (0.55-1.02); EST Glomerular Filtration Rate 40 mL/min (>60); Est Glom Filt Rate - Afr Amer 49 mL/min (>60); Estimated Creatinine Clearance 25.92 ml/min; Globulin 4.2 g/dL (2.2-4.2); Glucose 103 mg/dL (74-106); Lipase 71 U/L (13-75); Potassium 3.6 mmol/L (3.5-5.1); Protein, Total 7.8 g/dL (6.4-8.2); Sodium Level 138 mmol/L (136-145)
[2023-12-14 12:00] VITALS: BP 132/79; PULSE 74; RESP 16; O2SAT 98
--- NOTE | 2023-12-14 12:09 | CT_ITS ---
STUDY: CT ABDOMEN AND PELVIS WITHOUT CONTRAST REASON FOR EXAM: Female, 78 years old. History of bilateral flank pain worse on the right side. History of multiple kidney stones. Past history of rectal carcinoma as well as lung carcinoma. History of Crohn''s disease. RADIATION DOSAGE (If Supplied By Facility): CTDIvol = ( 6.32 ) mGy, DLP = ( 257.26 ) mGycm TECHNIQUE: Transaxial images were obtained from the dome of the diaphragm to the symphysis pubis without oral contrast, and without intravenous contrast. Sagittal and coronal images were reconstructed. Individualized dose optimization techniques were used for this CT. COMPARISON: Comparison is made with prior study dated September 20, 2022. FINDINGS: The visualized lung bases are unremarkable. Stable mild degree of thickening of the anterior pericardium. Normal liver. The patient is status post cholecystectomy. Normal spleen. Normal pancreas. Normal bilateral adrenal glands. Multiple bilateral small nonobstructive intrarenal calculi. The largest calculus in the right kidney is in the lower pole and measures 6 mm. The largest calculus in the left kidney measures 4.6 mm. Moderate degree of right hydronephrosis and right hydroureter. Mild degree of the left hydronephrosis. There is a small hiatal hernia. Normal small intestine. A colostomy is seen in the anterior left abdomen. Surgical anastomosis is seen in the right midabdomen suggestive of prior right hemicolectomy. There is diffuse atherosclerotic calcification of the abdominal aorta, without a demonstrated aneurysm. Normal inferior vena cava. Normal retroperitoneum. Marked degree of bladder distention. There is absence of the uterus consistent with a prior hysterectomy. Normal abdominal wall. Normal osseous structures. CT/Abdomen/Pelvis without Cont IMPRESSION: Bilateral nonobstructive intrarenal calculi. Bilateral hydronephrosis and hydroureter worse on the right side most likely secondary to a markedly distended urinary bladder. The patient is status post right hemicolectomy and hysterectomy. The patient is status post cholecystectomy. Electronically Signed: Chriss Boateng MD at 13:12 EST ,
--- NOTE | 2023-12-14 12:09 | EDS_ITS ---
HPI HPI - Female History of Present Illness Chief Complaint: Flank Pain Narrative Narrative: 78-year-old female presenting with right flank pain which progressed to left flank pain. Patient states that this started last evening. She states it felt sharp. It is coming down. She had some nausea with this. She states she was unable to urinate initially. Patient has past medical history of Crohn's disease status post bowel resection, colostomy. She has had cholecystectomy, C- section x 4, bowel obstruction, pyelonephritis, kidney stones. Patient states her urologist is Dr Morrison. Patient is not complaining of dysuria or hematuria. [facility] Medical History Abdominal bloating Anxiety Anxiety Arthritis Cancer Chronic bronchitis COPD (chronic obstructive pulmonary disease) COPD (chronic obstructive pulmonary disease) COPD exacerbation Crohn's disease Decreased appetite Depression Diarrhea Diarrhea Easy bruising Filling defect on imaging study Former smoker History of echocardiogram History of fracture of patella History of pain when walking History of rectal cancer History of stress test Hydronephrosis Hydronephrosis, right Hypothyroidism [facility] current use of immunosuppressive drug Lung cancer Nicotine abuse Osteoporosis Rectal cancer Rectal cancer 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 calculus 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 calculus Shortness of breath on exertion Stage 3b chronic kidney disease (CKD) Thyroid disease TIA (transient ischemic attack) TIA (transient ischemic attack) Urinary retention Walker as ambulation aid Wears dentures Wears hearing aid Home Medications bupropion HCl 150 mg 24 hr tablet, extended release (Wellbutrin XL) 150 mg PO QAM quit smoking 11/28/18 [History Last Taken 09/27/22] citalopram 40 mg tablet 40 mg PO DAILY Anxiety 04/24/19 [History Last Taken 09/27/22] cyanocobalamin (vitamin B-12) 1,000 mcg/mL injection solution 100 mcg IM Q30D Supplement 10/08/19 [History Last Taken 09/08/22] cholecalciferol (vitamin D3) 25 mcg (1,000 unit) capsule (Vitamin D3) 25 mcg PO DAILY Supplement 10/09/21 [History Last Taken 09/27/22] sodium bicarbonate 650 mg tablet 650 mg PO TID supplement 10/09/21 [History Last Taken 09/27/22] levothyroxine 75 mcg tablet 75 mcg PO DAILY 30 days #30 tabs 10/12/22 [Rx Last Taken Unknown] potassium chloride 20 mEq tablet,extended release(part/cryst) (Klor-Con M) 20 meq PO DAILYCM 30 days #30 tabs 10/12/22 [Rx Last Taken Unknown] ustekinumab 130 mg/26 mL intravenous solution (Stelara) 260 mg (52 mL) .Route ONCE #52 mL 01/18/23 [Rx Last Taken Unknown] ustekinumab 90 mg/mL subcutaneous syringe (Stelara) 90 mg subcut Q8W #1 mL 01/18/23 [Rx Last Taken Unknown] budesonide 3 mg capsule,delayed,extended release 6 mg (2 x 3 mg) PO DAILY #60 ea 06/06/23 [Rx Last Taken Unknown] cephalexin 500 mg capsule 500 mg PO BID 7 days #14 caps 12/14/23 [Rx Last Taken Unknown] levothyroxine 88 mcg tablet 88 mcg PO DAILY 12/14/23 [History Last Taken Unknown] Allergy/AdvReac Type Severity Reaction Status Date / Time ciprofloxacin [From Cipro] Allergy Rash Verified 12/14/23 10:01 ciprofloxacin HCl Allergy Rash Verified 12/14/23 10:01 [From Cipro] Penicillins Allergy Hives Verified 12/14/23 10:01 codeine AdvReac makes her Verified 12/14/23 10:01 feel weird magnesium citrate AdvReac Nausea Verified 12/14/23 10:01 NSAIDS (Non-Steroidal AdvReac kidney Verified 12/14/23 10:01 Anti-Inflamma damage r/t long-term usage advised not to use Family History Father Heart disease Mother Heart disease Sister Heart disease Diabetes Surgical History History of bowel resection History of delivery History of cholecystectomy History of colonoscopy (~10/2019) History of colostomy History of cystoscopy History of hysterectomy Social History household members: none Smoking Status: Former smoker Tobacco: How many years used: 53 how long ago did patient quit smoking: Quit 2-5 years prior. second hand exposure: No alcohol intake: never substance use type: does not use caffeine: No what type of physical activity do you participate in: none ROS ROS ED Constitutional Constitutional ED: Denies chills, fever(s) or sweats Eyes Eyes: Denies blurry vision or change in vision ENT ENT ED: Denies ear pain or sore throat Cardiovascular Cardiovascular: Denies chest pain, palpitations or racing heartbeat Respiratory/Chest Respiratory/Chest: Denies cough, dyspnea or sputum Gastrointestinal Gastrointestinal: Reports nausea; Denies abdominal pain, constipation, diarrhea or vomiting Genitourinary Genitourinary ED: Denies dysuria, hematuria or urinary frequency Musculoskeletal Musculoskeletal: Reports other Details: Back pain ; Denies arthralgias, myalgias or neck pain Integumentary Denies abscess, Abrasions or rash Neurologic Neurologic: Denies headache(s), paresthesias or weakness Psychiatric Psychiatric: Denies anxiety, depression, suicidal ideation or suicidal thoughts Endocrine Endocrinology: Denies polydipsia or polyuria EXAM Physical Exam Const Vital Signs: 12/14/23 10:02 12/14/23 12:00 Temperature 96.9 F L Temperature Source Temporal Pulse Rate 76 74 Respiratory Rate 16 16 Blood Pressure 133/75 H 132/79 H Blood Pressure Mean 94 96 Pulse Ox 96 98 Oxygen Delivery Method Room Air Room Air Positive well nourished General Appearance ED: NAD; Negative for pallor HEENT Reports moist mucous membranes trauma Eyes PERRL and EOMs intact bilaterally Chest Wall inspection of chest normal Resp normal respiratory effort Cardio regular rate and regular rhythm GI normal to inspection, nondistended, normoactive bowel sounds Back/Spine no CVA tenderness Extremity normal to inspection Neuro oriented x3 and CN's II-XII intact bilaterally Sensorium / Orientation: alert Psych mental status grossly normal Skin no rashes or lesions noted General Skin Exam: Negative for jaundice or pallor MDM MDM MDM Narrative Medical decision making narrative: Patient presenting with flank pain, patient presenting with right flank pain. Differential includes colitis, diverticulitis, gastritis, pancreatitis, acute cholecystitis, constipation, appendicitis, UTI, pyelonephritis, calculi, ureteral calculi, obstruction, malignancy, dehydration, electrolyte abnormalities. CBC will be obtained to assess white blood cell count, hemoglobin, platelets. CMP to assess liver function, renal function and electrolytes. Lipase to assess for pancreatitis. Urinalysis to assess for UTI. Patient declines analgesia at this time as she is pain-free. Abdominal exam is benign without tenderness. No flank pain on examination. CBC shows leukocytosis 12.0. Hemoglobin 14.4. Platelets are normal at 233. Renal function electrolytes within normal limits. LFTs are normal. Lipase negative. Urinalysis shows positive nitrites, 5 and leukocyte esterase, 25-50 white blood cells, 0-5 squamous epithelial cells and 1+ bacteria. CT of the abdomen pelvis with IV contrast shows what looks to be a urinary outlet obstruction. Patient m edicated with morphine and Zofran. Gallagher catheter was placed. Discussed with urology who recommended Keflex and follow-up with her. Patient amenable to this plan. Discharged home in stable condition Impression: 1. Urinary outlet obstruction 2. UTI 3. Abdominal pain Lab Data Attestation: I reviewed the patient's lab results. Labs: Laboratory Results - last 24 hr 12/14/23 12/14/23 10:20 10:25 WBC 12.0 H RBC 4.97 Hgb 14.4 Hct 45.5 MCV 91.5 MCH 29.0 MCHC 31.6 L RDW Std Deviation 43.8 RDW Coeff of Osmar 13.0 Plt Count 233 MPV 8.9 Immature Gran % (Auto) 0.300 Neut % (Auto) 71.8 H Lymph % (Auto) 18.3 L [place] % (Auto) 6.5 Eos % (Auto) 2.8 Baso % (Auto) 0.3 Absolute Neuts (auto) 8.6 H Absolute Lymphs (auto) 2.19 Nucleated RBC % 0 Sodium 138 Potassium 3.6 Chloride 111 H Carbon Dioxide 22.0 Anion Gap 5 BUN 19 H Creatinine 1.35 H Estim Creat Clear Calc 25.92 Est GFR (MDRD) Af Amer 49 L Est GFR (MDRD) Non-Af 40 L BUN/Creatinine Ratio 14.1 Glucose 103 Calcium 9.4 Total Bilirubin 0.40 AST 22 ALT 42 Alkaline Phosphatase 109 Total Protein 7.8 Albumin 3.6 Globulin 4.2 Albumin/Globulin Ratio 0.9 Lipase 71 Urine Color Yellow Urine Clarity Sl. Cloudy Urine pH 6.0 Ur Specific [place] 1.015 Urine Protein 30 H Urine Glucose (UA) Normal Urine Ketones Negative Urine Occult Blood 50 H Urine Nitrite Positive H Urine Bilirubin Negative Urine Urobilinogen Normal Ur Leukocyte Esterase 500 H Urine RBC 0-5 SEEN Urine WBC 25-50 SEEN Ur Squamous Epith Cells 0-5 SEEN Urine Bacteria 1+ Urine Mucus 0 SEEN Radiography Diagnostic Testing: Clinical Impression(s) from Imaging Studies Abdomen/Pelvis CT 12/14/23 12:09 IMPRESSION: Bilateral nonobstructive intrarenal calculi. Bilateral hydronephrosis and hydroureter worse on the right side most likely secondary to a markedly distended urinary bladder. The patient is status post right hemicolectomy and hysterectomy. The patient is status post cholecystectomy. Electronically Signed: Chriss Boateng MD at 13:12 EST , Discharge Plan Triage Chief Complaint: Flank Pain ED Provider: Bismark Moreno Dx/Rx/DC Orders Clinical Impression: Acute urinary retention Instructions: ED Urinary Retention, Female Prescriptions: New cephalexin 500 mg capsule 500 mg PO BID 7 Days Qty: 14 0RF No Action bupropion HCl [Wellbutrin XL] 150 mg tablet extended release 24 hr 150 mg PO QAM citalopram 40 MG tablet 40 mg PO DAILY cyanocobalamin (vitamin B-12) 1,000 MCG/ML solution 100 mcg IM Q30D sodium bicarbonate 650 mg tablet 650 mg PO TID cholecalciferol (vitamin D3) [Vitamin D3] 25 mcg (1,000 unit) Capsule 25 mcg PO DAILY levothyroxine 75 mcg Tablet 75 mcg PO DAILY 30 Days Qty: 30 0RF potassium chloride [Klor-Con M20] 20 mEq Tablet,Er Particles/Crystals 20 meq PO DAILYCM 30 Days Qty: 30 0RF levothyroxine 88 mcg tablet 88 mcg PO DAILY Stelara 130 mg/26 mL solution 260 mg .Route ONCE Qty: 52 0RF Rx Instructions: Infuse 260mg for 55kg or less or 390mg for 56-85kg No prior authorization required through Part A Medicare Call reference number [id number] Stelara 90 mg/mL syringe 90 mg subcut Q8W Qty: 1 5RF Rx Instructions: No PA required per Medicare Part A call reference number [id number] budesonide 3 mg capsule,delayed,extend.release 6 mg PO DAILY Qty: 60 3RF Primary Care Provider: Elliot Kang Chi Referrals: Elliot Kang Chi, MD [Primary Care Provider] - Disposition Disposition: Home, Self Care
[2023-12-14] MEDS: Morphine 4 MG/ML Syringe IV (14:09)
[2023-12-14] MEDS: Ondansetron 4 MG/2 ML Vial IV (14:09)
[2023-12-14] MEDS: Cephalexin 250 MG Capsule 500 MG PO (15:07)
--- NOTE | 2023-12-14 15:27 | ED.RN ---
Pt states they had a really hard time getting a catheter into me the last time, it took a lot of nurses . Slight resistance when attempting to insert sheets into urethral opening, but then sheets advanced easily into bladder. Slight bright red bleeding noted at urethral opening. Sheets draining clear yellow urine, pt denies further discomfort. Extensive sheets care teaching at discharge, pt demonstrates changing from leg bag to sheets bag, and also emptying of each bag.
[2023-12-14 15:31] VITALS: BP 131/72; PULSE 79; O2SAT 99
== END 2023-12-14 15:32 | disposition home or self-care (01) ==
PROVIDERS: Emergency Provider Student in an Organized Health Care Education/Training Program; PCP Family Medicine Geriatric Medicine; Visit Provider Student in an Organized Health Care Education/Training Program
DX: N13.6 Pyonephrosis (principal); J44.9 Chronic obstructive pulmonary disease, unspecified; N18.32 Chronic kidney disease, stage 3b; R33.9 Retention of urine, unspecified; E03.9 Hypothyroidism, unspecified; Z90.49 Acquired absence of other specified parts of digestive tract; Z79.890 Hormone replacement therapy; Z79.899 Other long term (current) drug therapy; Z87.891 Personal history of nicotine dependence
CPT/HCPCS: 51702; 74176; 80053; 81001; 83690; 85025; 87077; 87086; 87088; 87186; 96361; 96374; 96375; 99283; J7030; A4216; J2405

== ENCOUNTER 2023-12-16 15:35 | Emergency (ER) | payer MEDICARE, OTHER, SELFPAY ==
[2023-12-16 15:36] VITALS: BP 124/72; PULSE 94; RESP 18; TEMP 37.2; O2SAT 96
--- NOTE | 2023-12-16 16:09 | EX.ED.DYSGE1 ---
HPI <DANAE Chang - Last Filed: 12/16/23 18:00> History of Present Illness Chief Complaint: Complaint Narrative Narrative: Patient is a 78-year-old female with a long history of abdominal wall surgeries, asthma, depression hypothyroidism TIA who presents to the emerged department for feeling of lower abdominal bloating. Patient was seen here 2 days ago on December 14, patient had a urinary retention, she had a Gallagher placed, and had immediate relief. She also had a UTI which she is on Keflex for. They reached out to [facility] who is her urologist and will be seeing her this upcoming week. Patient states that she just feels that her lower abdomen is bloated, she wants to make sure that her Gallagher is working, she is also concerned about her kidneys. Patient is currently taking Keflex. Denies any fever or chills. PFSH <DANAE Chang - Last Filed: 12/16/23 18:00> [facility] Medical History Abdominal bloating Anxiety Anxiety Arthritis Cancer Chronic bronchitis COPD (chronic obstructive pulmonary disease) COPD (chronic obstructive pulmonary disease) COPD exacerbation Crohn's disease Decreased appetite Depression Diarrhea Diarrhea Easy bruising Filling defect on imaging study Former smoker History of echocardiogram History of fracture of patella History of pain when walking History of rectal cancer History of stress test Hydronephrosis Hydronephrosis, right Hypothyroidism care home current use of immunosuppressive drug Lung cancer Nicotine abuse Osteoporosis Rectal cancer Rectal cancer 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 calculus 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 calculus Shortness of breath on exertion Stage 3b chronic kidney disease (CKD) Thyroid disease TIA (transient ischemic attack) TIA (transient ischemic attack) Urinary retention Walker as ambulation aid Wears dentures Wears hearing aid Home Medications bupropion HCl 150 mg 24 hr tablet, extended release (Wellbutrin XL) 150 mg PO QAM quit smoking 11/28/18 [History Last Taken 09/27/22] citalopram 40 mg tablet 40 mg PO DAILY Anxiety 04/24/19 [History Last Taken 09/27/22] cyanocobalamin (vitamin B-12) 1,000 mcg/mL injection solution 100 mcg IM Q30D Supplement 10/08/19 [History Last Taken 09/08/22] cholecalciferol (vitamin D3) 25 mcg (1,000 unit) capsule (Vitamin D3) 25 mcg PO DAILY Supplement 10/09/21 [History Last Taken 09/27/22] sodium bicarbonate 650 mg tablet 650 mg PO TID supplement 10/09/21 [History Last Taken 09/27/22] levothyroxine 75 mcg tablet 75 mcg PO DAILY 30 days #30 tabs 10/12/22 [Rx Last Taken Unknown] potassium chloride 20 mEq tablet,extended release(part/cryst) (Klor-Con M) 20 meq PO DAILYCM 30 days #30 tabs 10/12/22 [Rx Last Taken Unknown] ustekinumab 130 mg/26 mL intravenous solution (Stelara) 260 mg (52 mL) .Route ONCE #52 mL 01/18/23 [Rx Last Taken Unknown] ustekinumab 90 mg/mL subcutaneous syringe (Stelara) 90 mg subcut Q8W #1 mL 01/18/23 [Rx Last Taken Unknown] budesonide 3 mg capsule,delayed,extended release 6 mg (2 x 3 mg) PO DAILY #60 ea 06/06/23 [Rx Last Taken Unknown] cephalexin 500 mg capsule 500 mg PO BID 7 days #14 caps 12/14/23 [Rx Last Taken Unknown] levothyroxine 88 mcg tablet 88 mcg PO DAILY 12/14/23 [History Last Taken Unknown] Allergy/AdvReac Type Severity Reaction Status Date / Time ciprofloxacin [From Cipro] Allergy Rash Verified 12/16/23 15:35 ciprofloxacin HCl Allergy Rash Verified 12/16/23 15:35 [From Cipro] Penicillins Allergy Hives Verified 12/16/23 15:35 codeine AdvReac makes her Verified 12/16/23 15:35 feel weird magnesium citrate AdvReac Nausea Verified 12/16/23 15:35 NSAIDS (Non-Steroidal AdvReac kidney Verified 12/16/23 15:35 Anti-Inflamma damage r/t long-term usage advised not to use Family History Father Heart disease Mother Heart disease Sister Heart disease Diabetes Surgical History History of bowel resection History of delivery History of cholecystectomy History of colonoscopy (~10/2019) History of colostomy History of cystoscopy History of hysterectomy Social History household members: none Smoking Status: Former smoker Tobacco: How many years used: 53 how long ago did patient quit smoking: Quit 2-5 years prior. second hand exposure: No alcohol intake: never substance use type: does not use caffeine: No what type of physical activity do you participate in: none ROS <DANAE Chang - Last Filed: 12/16/23 18:00> ROS ED ROS Narrative Constitutional: No fever, no chills. HEENT: No sore throat. No neck pain. No loss of vision. No rhinorrhea. Cardiovascular: No chest pain. No palpitations. No pedal edema. Respiratory: No cough, no shortness of breath. Abdominal: Positive for lower abdominal bloating. No nausea. No vomiting. Genitourinary: No dysuria. No hematuria. Musculoskeletal: No myalgias. No arthralgias. Neurologic: No headaches. No dizziness. No lightheadedness. Skin: No rash. No change in color. Psychiatric: No depression. No anxiety. EXAM <DANAE Chang - Last Filed: 12/16/23 18:00> Physical Exam Narrative Exam Narrative: Afebrile. Vital signs noted. HEENT: Normocephalic. Atraumatic. PERRL, EOMI. Neck soft and supple. No point tenderness or step off. Cardiovascular: Regular rate and rhythm. No murmurs, rubs, or gallops appreciated. Respiratory: No tachypnea. Lungs clear to auscultation bilaterally. Gastrointestinal: Abdomen soft, nontender, with normoactive bowel sounds. No rebound or guarding. Neurological: Awake. Alert. Nonfocal, nonlateralizing. Skin: No rash. Normal color. No pallor. Musculoskeletal: No pedal edema. Full range of motion extremities. : Patient has Gallagher catheter in place. Clear yellow urine in the bag. She emptied at 1 PM. Patient has roughly 150 cc. There appears to be no obstruction, no clots. Const Vital Signs: 12/16/23 15:36 12/16/23 17:35 Temperature 99 F Temperature Source Temporal Pulse Rate 94 Respiratory Rate 18 16 Blood Pressure 124/72 H Blood Pressure Mean 89 Pulse Ox 96 Oxygen Delivery Method Room Air <Dr. Bismark Moreno DO - Last Filed: 12/16/23 21:34> Physical Exam Const Vital Signs: 12/16/23 15:36 12/16/23 17:35 Temperature 99 F Temperature Source Temporal Pulse Rate 94 Respiratory Rate 18 16 Blood Pressure 124/72 H Blood Pressure Mean 89 Pulse Ox 96 Oxygen Delivery Method Room Air [facility] <Mitul Charlton PUTTYING AND CALKING SUPERVISOR-C - Last Filed: 12/16/23 18:00> [facility] Lab Data Labs: Laboratory Results - last 24 hr 12/16/23 16:36 WBC 12.7 H RBC 4.30 Hgb 12.4 Hct 39.3 MCV 91.4 MCH 28.8 MCHC 31.6 L RDW Std Deviation 43.0 RDW Coeff of Osmar 12.9 Plt Count 178 MPV 9.4 Immature Gran % (Auto) 0.500 Neut % (Auto) 75.8 H Lymph % (Auto) 13.3 L [place] % (Auto) 8.5 Eos % (Auto) 1.7 Baso % (Auto) 0.2 Absolute Neuts (auto) 9.6 H Absolute Lymphs (auto) 1.69 Nucleated RBC % 0 Sodium 137 Potassium 3.7 Chloride 110 H Carbon Dioxide 23.0 Anion Gap 4 L BUN 15 Creatinine 1.26 H Est GFR (MDRD) Af Amer 53 L Est GFR (MDRD) Non-Af 44 L BUN/Creatinine Ratio 11.9 Glucose 100 Calcium 9.3 Treatment and Re-Evaluation :: Patient appears generally well, patient appears nontoxic, vital signs are stable. Presents to the emerged part with lower abdominal bloating after having a catheter placed 2 days ago. Differential diagnosis includes Gallagher malfunction, urinary retention, TOMÁS. Patient will receive some basic laboratory values, bladder scan. From my physical examination, does not like the Gallagher catheter is working properly. I will not check a UA today secondary to the patient being only on 2 days of antibiotics. I did look at the urine culture, it showed Pseudomonas, Keflex is sensitive to this. Patient's bladder scan showed no urine in the bladder, this is consistent with a proper working Gallagher catheter. Patient CBC showed leukocytosis with 12.7 however over the last couple months this is baseline. Patient's chemistries showed a creatinine of 1.26, this is improvement over the last several months. At this time, patient has no evidence of any TOMÁS, renal insufficiency, no evidence of infection. Patient is on the proper antibiotic for UTI. She will follow-up with urology this week. All questions were answered, patient stable for discharge. <Dr. Bismark Moreno, DO - Last Filed: 12/16/23 21:34> [facility] Narrative Medical decision making narrative: Patient appears generally well, patient appears nontoxic, vital signs are stable. Presents to the emerged part with lower abdominal bloating after having a catheter placed 2 days ago. Differential diagnosis includes Gallagher malfunction, urinary retention, TOMÁS. Patient will receive some basic laboratory values, bladder scan. From my physical examination, does not like the Gallagher catheter is working properly. I will not check a UA today secondary to the patient being only on 2 days of antibiotics. I did look at the urine culture, it showed Pseudomonas, Keflex is sensitive to this. Patient's bladder scan showed no urine in the bladder, this is consistent with a proper working Gallagher catheter. Patient CBC showed leukocytosis with 12.7 however over the last couple months this is baseline. Patient's chemistries showed a creatinine of 1.26, this is improvement over the last several months. At this time, patient has no evidence of any TOMÁS, renal insufficiency, no evidence of infection. Patient is on the proper antibiotic for UTI. She will follow-up with urology this week. All questions were answered, patient stable for discharge. This patient was seen with a PA/PUTTYING AND CALKING SUPERVISOR Individually assessed they patient including history and physical. I have reviewed everything on the chart that is available and agree with the documentation provided by the PA/PUTTYING AND CALKING SUPERVISOR including discussion about the assessment, treatment plan, discussion, and return precautions. Patient having some abdominal bloating and cramping. She has history of Gallagher catheter which was recently placed. She also has history of colostomy bag. Abdomen is benign. Lab work was repeated and is unremarkable. Renal function is actually improving. I do not believe she has repeat CT since she just had with the other day. Urinalysis was not repeated as the patient is currently on antibiotics and culture was appropriate. Gallagher catheter is flowing appropriately. Urine appears clear to slightly yellow. Patient will be discharged back home with follow-up with urology. She is amenable to this. Impression: 1. Abdominal pain Lab Data Attestation: I reviewed the patient's lab results. Labs: Laboratory Results - last 24 hr 12/16/23 16:36 WBC 12.7 H RBC 4.30 Hgb 12.4 Hct 39.3 MCV 91.4 MCH 28.8 MCHC 31.6 L RDW Std Deviation 43.0 RDW Coeff of Osmar 12.9 Plt Count 178 MPV 9.4 Immature Gran % (Auto) 0.500 Neut % (Auto) 75.8 H Lymph % (Auto) 13.3 L [place] % (Auto) 8.5 Eos % (Auto) 1.7 Baso % (Auto) 0.2 Absolute Neuts (auto) 9.6 H Absolute Lymphs (auto) 1.69 Nucleated RBC % 0 Sodium 137 Potassium 3.7 Chloride 110 H Carbon Dioxide 23.0 Anion Gap 4 L BUN 15 Creatinine 1.26 H Est GFR (MDRD) Af Amer 53 L Est GFR (MDRD) Non-Af 44 L BUN/Creatinine Ratio 11.9 Glucose 100 Calcium 9.3 Discharge Plan Triage Chief Complaint: Complaint ED Midlevel Provider: Mitul Charlton ED Provider: Bismark Moreno Dx/Rx/DC Orders Clinical Impression: Gallagher catheter in place Instructions: ED Gallagher Catheter, Care Prescriptions: No Action bupropion HCl [Wellbutrin XL] 150 mg tablet extended release 24 hr 150 mg PO QAM citalopram 40 MG tablet 40 mg PO DAILY cyanocobalamin (vitamin B-12) 1,000 MCG/ML solution 100 mcg IM Q30D sodium bicarbonate 650 mg tablet 650 mg PO TID cholecalciferol (vitamin D3) [Vitamin D3] 25 mcg (1,000 unit) Capsule 25 mcg PO DAILY levothyroxine 75 mcg Tablet 75 mcg PO DAILY 30 Days Qty: 30 0RF potassium chloride [Klor-Con M20] 20 mEq Tablet,Er Particles/Crystals 20 meq PO DAILYCM 30 Days Qty: 30 0RF levothyroxine 88 mcg tablet 88 mcg PO DAILY cephalexin 500 mg capsule 500 mg PO BID 7 Days Qty: 14 0RF Stelara 130 mg/26 mL solution 260 mg .Route ONCE Qty: 52 0RF Rx Instructions: Infuse 260mg for 55kg or less or 390mg for 56-85kg No prior authorization required through Part A Medicare Call reference number [id number] Stelara 90 mg/mL syringe 90 mg subcut Q8W Qty: 1 5RF Rx Instructions: No PA required per Medicare Part A call reference number [id number] budesonide 3 mg capsule,delayed,extend.release 6 mg PO DAILY Qty: 60 3RF Primary Care Provider: Elliot Kang Chi Referrals: Elliot Kang Chi, MD [Primary Care Provider] - Activity Restrictions/Additional Instructions: Continue taking the Keflex until finished. Follow-up with your urologist. Disposition Disposition: Home, Self Care Discharge Date/Time: 12/16/23 18:19
--- OUTSIDE RECORDS SUMMARY | 2023-12-16 16:22 | XMS RPT_ITS | CCD ---
Author Name Unknown Address [id number] [place] [address] Organization [facility] Care Team Providers Care [employer] Name Role Phone CRISTIN CHEEMA Referring Unavailable CRISTIN CHEEMA Attending Unavailable ADIS TAPIA Primary Care Unavailable ADIS TAPIA Primary Care Unavailable ADIS TAPIA Referring Unavailable ADIS TAPIA Attending Unavailable Adis Tapia MD Primary Care Provider Trav Herron MD Unavailable Lisa TERRAZAS, Glen Unavailable Trav Herron MD Unavailable Lisa TERRAZAS, Glen Unavailable Elliot Kang Chi Primary Care Provider [phone] ROBERTH ESPINO Consulting Unavailable GADIEL TAVAREZ Referring Unavailable AMAURY NICHOLSON Admitting Unavailable DA TRUJILLO Attending Unavailable ADIS TAPIA Primary Care Unavailable Allergies Allergy Classification Reported Allergen(s) Allergy Type Date of Onset Reaction(s) Facility (6 sources) Ciprofloxacin; Translations: [CIPROFLOXACIN] Drug Allergy 3 Rash [facility] (6 sources) Codeine; Translations: [CODEINE] Drug Allergy 6 [facility] (6 sources) HMG-CoA reductase inhibitor; Translations: [PFJYVLL-JOU-WH A REDUCTASE INHIBITORS] Drug Intolerance 8 Myalgia [facility] Work Phone: (6 sources) Non-steroidal anti-inflammato ry agent; Translations: [NSAIDS (NON-STEROIDAL ANTI-INFLAMMATO RY DRUG)] Propensity to adverse reactions to drug 5 Other: See Comments [facility] (6 sources) Penicillins; Translations: [PENICILLINS] Propensity to adverse reactions Hives [facility] (5 sources) Mag.citrate [Other] Propensity to adverse reactions 3 [facility] (1 source) OTHER; Translations: [OTHER] Propensity to adverse reactions (disorder) 3 [facility] Other [place] [facility] Medications Current Medications Medication Drug Class(es) Dates Sig (Normalized) Sig (Original) cefepime 1000 mg injection (2 sources) Cephalosporin Antibacterial Start: 10-05-2022 End: 10-15-2022 inject 100 mL intravenously every twelve hours cefepime (MAXIPIME) 1 g in D5W 100 mL Inject 100 mL intravenously every 12 hours for 10 days. Continue for 2 weeks total or until stent removed - follow with his Urologist for recs 2000 mL 0 10/05/2022 10/15/2022 Active Completed/Discontinued Medications Medication Drug Class(es) Dates Sig (Normalized) Sig (Original) acetaminophen 500 mg oral tablet (5 sources) Start: 2009 acetaminophen(TYLE NOL EXTRA STRENGTH 500 MG TAB) Indications: Pain in limb Take two(2) tablets every six(6) hours as needed for pain. 0 2009 Active Problems Active Problems Problem Classification Problem Date Documented Da te Episodic/Chronic Cardiac and circulatory congenital anomalies (5 sources) Persistent ostium secundum; Translations: [Atrial septal defect] Onset: 06-08-2007 01-04-2011 Chronic Chronic kidney disease (5 sources) Chronic kidney disease stage 3A ; Translations: [Stage 3a chronic kidney disease] Onset: 09-21-2007 11-01-2021 Chronic Disorders of lipid metabolism (5 sources) Hyperlipidemia; Translations: [Hyperlipidemia, unspecified] Onset: 05-10-2007 10-12-2015 Chronic Mood disorders (5 sources) Depressive disorder; Translations: [Depressive disorder] Onset: 09-20-2006 10-12-2015 Chronic Nutritional deficiencies (5 sources) Vitamin D deficiency; Translations: [Vitamin D deficiency, unspecified] Onset: 04-29-2008 10-12-2015 Chronic Osteoporosis (5 sources) Osteoporosis; Translations: [Age-related osteoporosis without current pathological fracture] Onset: 06-08-2007 10-12-2015 Chronic Other gastrointestinal disorders (4 sources) Pneumoperitoneum; Translations: [Other specified disorders of peritoneum] Onset: 09-29-2022 10-05-2022 Episodic Other nervous system disorders (5 sources) Disorder of right femoral nerve; Translations: [Lesion of femoral nerve, right lower limb] Onset: 01-18-2013 11-01-2021 Chronic Thyroid disorders (5 sources) Hypothyroidism; Translations: [Hypothyroidism, unspecified] Onset: 11-29-2012 11-29-2012 Chronic Past or Other Problems Problem Classification Problem Date Documented Da te Episodic/Chronic Calculus of urinary tract (5 sources) Kidney stone; Translations: [Calculus of kidney] Onset: 03-25-2010 10-23-2017 Episodic Cancer of bronchus; lung (5 sources) History of malignant neoplasm of thoracic cavity structure; Translations: [Personal history of other malignant neoplasm of bronchus and lung] Onset: 05-21-2020 03-23-2021 Episodic Deficiency and other anemia (5 sources) Nutritional anemia; Translations: [Other vitamin B12 deficiency anemias] Onset: 05-10-2007 01-04-2011 Episodic Other gastrointestinal disorders (1 source) Diarrhea; Translations: [Diarrhea, unspecified] Onset: 11-22-2005 11-01-2021 Episodic Other gastrointestinal disorders (1 source) Other specified disorders of peritoneum; Translations: [Pneumoperitoneum] Onset: 10-05-2022 Episodic Results Test Name Value Interpretation Reference Range Facil ity Encounters Encounter Date Encounter Type Care Provider Facility Start: 10-27-2022 ambulatory Avery miller RN Work Phone: [employer] Management Procedures Date Procedure Procedure Detail Performing Clinician Start: 10-13-2022 CBCDIF (EXTERNAL) Roberth Espino MD Work Phone: Start: 10-13-2022 Creatinine [Mass/vol ume] in Serum or Plasma Roberth Espino MD Work Phone: Start: 05-08-2007 H/O: colostomy Colostomy status Alisia Guidry Plan of Treatment Date Care Activity Detail Author Start: 10-04-2025 DIABETES SCREEN DIABETES SCREEN [facility] Start: 07-23-2024 DIABETES SCREEN DIABETES SCREEN [facility] Start: 03-28-2024 Urine microalbumin profile DTAP,TDAP ,TD (1 - Tdap) [facility] Immunizations Immunization Date Immunization Notes Care Provider Fa maxim 02-02-2021 COVID-19 vaccine, ag e 12+ yr (PFIZER-BIONTECH - PURPLE TOP) [facility] Work Phone: 01-11-2021 COVID-19 vaccine, ag e 12+ yr (PFIZER-BIONTECH - PURPLE TOP) [facility] Work Phone: 08-26-2020 influenza, high-dose , quadrivalent vaccine (FLUZONE HIGH DOSE QUADRIVALENT) [facility] Work Phone: 08-06-2019 influenza, high dose seasonal, preservative-free [facility] Work Phone: 07-24-2018 influenza, high dose seasonal, preservative-free [facility] Work Phone: 10-23-2017 influenza, high dose seasonal, preservative-free [facility] 10-12-2016 influenza, high dose seasonal, preservative-free [facility] 10-12-2015 influenza, high dose seasonal, preservative-free [facility] 04-02-2015 pneumococcal polysaccharide vaccine, 23 valent [facility] 09-30-2014 influenza, seasonal, injectable [facility] 09-30-2014 pneumococcal conjuga te vaccine, 13 valent [facility] 03-27-2014 tetanus and diphther ia toxoids, adsorbed, preservative free, for adult use (5 Lf of tetanus toxoid and 2 Lf of diphtheria toxoid) [facility] 09-23-2013 influenza virus vacc ine, unspecified formulation [facility] 11-19-2012 influenza virus vacc ine, unspecified formulation [facility] Work Phone: 11-25-2010 influenza virus vacc ine, unspecified formulation [facility] Work Phone: 2009 influenza virus vacc ine, unspecified formulation [facility] Work Phone: 09-18-2008 influenza virus vacc ine, unspecified formulation [facility] 09-11-2007 influenza virus vacc ine, unspecified formulation [facility] 09-07-2006 influenza virus vacc ine, unspecified formulation [facility] 09-06-2004 pneumococcal polysaccharide vaccine, 23 valent [facility] Work Phone: 06-06-2003 tetanus and diphther ia toxoids, adsorbed, preservative free, for adult use (2 Lf of tetanus toxoid and 2 Lf of diphtheria toxoid) [facility] Work Phone: Payers Date Payer Category Payer Medicare [id number] 2016 Medicare MEDICARE MEDICAR E A AND B [id number] 2016-Present [phone] [place] [address] Medicare [id number] 2016 Medicare MEDICARE MEDICAR E A AND B [id number] 2016-Present [phone] [place] [address] Medicare [id number] 2016 Unknown [id number] 2016 Unknown [employer] [employer] [place] [employer]IC[employer] SUPPLEMENT [id number] 2016-Present [phone] [address] [place] [address] Indemnity [id number] 2016 Unknown [employer] [employer] [employer]IC[employer] SUPPLEMENT [id number] 2016-Present [phone] [address] [place] [address] Indemnity [id number] 1945 Unknown [id number] 1945 Unknown [id number] Social History Date Type Detail Facility Start: 04-24-2018 Tobacco smoking stat us NHIS Ex-smoker [facility] Work Phone: End: 02-03-2018 History of tobacco use Current smoker [facility] Work Phone: End: 02-03-2018 History of tobacco use Cigarette Smoker [facility] Work Phone: Start: 04-24-2018 Cigarettes smoked current (pack per day) - Reported 1 [facility] Start: 04-24-2018 Tobacco use and exposure Smokeless tobacco non-user [facility] Work Phone: Start: 10-11-2021 End: 06-22-2022 Alcohol intake Current drinker of alcohol (finding) [facility] Start: 11-03-2020 End: 09-30-2022 History SDOH Housing Unable to Pay 2 [facility] Start: 11-03-2020 End: 09-30-2022 History SDOH Housing Places Lived 1 [facility] Start: 04-24-2018 Tobacco Comment Quit January 2018 [facility] Start: 1945 Sex Assigned At Not on file [facility] Start: 09-30-2022 History SDOH Financial 4 [facility] Start: 09-21-2022 End: 10-01-2022 Exposure to SARS-CoV-2 (event) Not sure [facility] Medical Equipment Procedure Code Equipment Code Equipment Origin al Text Equipment Identifier Dates [employer] [id number] Start: 01-18-2011 Goals Date Patient Goal Desired Activity /State Clinical Notes 05-24-2019 to 10-27-2022 Avery Stovall RN - 10/27/2022 9:15 AM ESTTelephone Encounter - Soraya Feng RN - 10/14/2022 8:44 AM ESTTelephone Encounter - Roberth Espino MD - 10/13/2022 5:30 PM EST Note Date & Type Note Facility 10-27-2022 Note Patient Outreach ([facility]) JOSE DE JESUS GOLD ([id number]) 1945 F Date Time Provider Department 10/27/22 AVERY STOVALL During your visit today, we recorded the following information about you: Avery Stovall RN 10/27/2022 9:16 AM Signed [facility] CDM Enrollment Provider Action/FYI: Non [facility] PCP Patient referred by: [facility] Kavon Contact made with patient: Patient not outreached at this time. Closing: Patient does not meet criteria. PCC to reassess patient in a month. END OUTREACH Allergies As of Date: 10/27/2022 Noted Allergy Reaction [id number] REDUCTASE INHIBIT*10/25/2018 17 - Myalgia CIPROFLOXACIN 08/21/2003 2 - Rash CODEINE 11/14/2005 Mag.citrate [Other] 08/21/2003 NSAIDS (NON-STEROIDAL ANTI-INFLAM*05/15/2015 14 - Other: See Comments PENICILLINS 4 - Hives Date Reviewed: 10/04/2022 Reviewed by: Nelia Chaidez RN - Fully Assessed Reason for Visit: Community Monitoring Outreach [Other] Cmt: Enrollment Prescriptions as of 10/27/2022 - levothyroxine (SYNTHROID) 50 mcg tablet Take 1 tablet by mouth daily before breakfast. - cyanocobalamin, vitamin B-12, (VITAMIN B-12 INJECTION) 1,000 mg by INJECTION(UNSPECIFIED PARENTERAL ROUTES) route once every month. - ondansetron (ZOFRAN) 4 mg tablet Take by mouth every 6 hours as needed for nausea/vomiting. - oxycodone HCl (OXYCODONE ORAL) Take 5 mg by mouth every 6 hours as needed. - phenazopyridine (PYRIDIUM, GERIDIUM) 200 mg tablet Take 200 mg by mouth three times daily as needed. - POTASSIUM CHLORIDE, BULK, MISC Take 20 mEq by mouth once daily. - sodium bicarbonate 650 mg tablet Take 650 mg by mouth three times daily. - ALBUTEROL SULFATE HFA INHALATION Inhale 2 Puffs as instructed every 4 hours as needed. - Cholecalciferol, Vitamin D3, (VITAMIN D) 25 mcg (1,000 unit) cap Take 1,000 Units by mouth once daily. - LORazepam (ATIVAN) 0.5 mg Take 0.5 mg by mouth twice daily as needed. - midodrine (PROAMATINE) 2.5 mg tablet Take 1 tablet by mouth twice daily as needed. - buPROPion XL (WELLBUTRIN XL) 150 mg 24 hr tablet Take 1 tablet by mouth once daily. - citalopram (CELEXA) 40 mg tablet Take 1 tablet by mouth once daily. - COMPOUNDED PRESCRIPTION Alcohol skin barrier wipes. Directions: use as directed at colostomy site DX: Z93.3 - COMPOUNDED PRESCRIPTION Colostomy Supplies: Ultra light 7/8 1 piece drain able. Convex with skin shield Directions: Use as directed at colostomy site. DX: Z93.3 - acetaminophen(TYLENOL EXTRA STRENGTH 500 MG TAB) Take two(2) tablets every six(6) hours as needed for pain. 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] 03/27/2014 B-COMPLEX DEFIC NEC [E53.8] 05/10/2007 Diarrhea [R19.7] 11/22/2005 10/05/2022 LOSS OF WEIGHT [R63.4] 11/22/2005 05/10/2007 Depressive disorder [F32.A] 09/20/2006 EMPHYSEMA LUNG [J43.8] 09/20/2006 11/16/2011 Colostomy status (HCC) [Z93.3] 05/08/2007 Other vitamin B12 deficiency anemia [D51.8] 05/10/2007 Hyperlipidemia [E78.5] 05/10/2007 Osteoporosis [M81.0] 06/08/2007 Ostium secundum type atrial septal defect [Q21.*06/08/2007 Stage 3a chronic kidney disease (HCC) [N18.31] 09/21/2007 Vitamin D deficiency [E55.9] 04/29/2008 Tobacco use disorder [F17.200] 07/28/2008 04/12/2016 Calculus of ureter [N20.1] 03/15/2010 03/21/2013 Retention of urine, unspecified [R33.9] 03/15/2010 11/16/2011 Calculus of kidney [N20.0] 03/25/2010 03/21/[address] scan, liver [R93.2] 01/04/2011 11/16/2011 Right leg weakness [R29.898] 11/19/2012 03/21/2013 Radiculopathy, lumbar region [M54.16] 11/19/2012 03/21/2013 Hypothyroid [E03.9] 11/29/2012 Femoral neuropathy of right lower extremity [G5*01/18/2013 Personal history of colon cancer [Z85.038] 03/28/2013 04/29/2019 Tobacco use disorder [F17.200] 10/12/2016 04/29/2019 Chronic bronchitis, obstructive (HCC) [J44.9] 11/30/2016 03/23/2021 Calculus of kidney [N20.0] 03/25/2010 Chronic respiratory failure with hypoxia (HCC) *05/24/2019 09/23/2020 History of lung cancer [Z85.118] 05/21/2020 Pneumoperitoneum [K66.8] 09/29/2022 Pneumatosis intestinalis of large intestine [K6*09/29/2022 10/05/2022 Encounter Status:Closed by AVERY STOVALL on 10/27/22 [facility] 10-27-2022 Note HNO ID: [id number] Author: Avery Stovall RN Service: ? Author Type: Registered Nurse Type: Progress Notes Filed: 10/27/2022 9:16 AM Note Text: [facility] Enrollment Provider Action/FYI: Non [facility] PCP Patient referred by: [facility] Kavon Contact made with patient: Patient not outreached at this time. Closing: Patient does not meet criteria. PCC to reassess patient in a month. END OUTREACH [facility] 10-27-2022 History of Presen t illness Narrative [facility] CD Enrollment Provider Action/FYI: Non [facility] PCP Patient referred by: [facility] Kavon Contact made with patient: Patient not outreached at this time. Closing: Patient does not meet criteria. PCC to reassess patient in a month. END OUTREACH documented in this encounter [facility] 10-14-2022 Miscellaneous Notes [phone] to return call. Soraya Feng RN Can you please check with them and see when are they planning for ureteral stent removal? Ideally the antibiotic should go until the stent is removed. Thanks Roberth Espino MD Copat stop date 10-17-22. Can stop date be honored and PICC be removed after last dose of cefepime? Soraya Feng RN documented in this encounter [facility] 10-13-2022 Miscellaneous Notes External copat labs entered. Soraya Feng RN documented in this encounter [facility] 10-05-2022 Note HNO ID: [id number] Author: Lea Cheema RN Service: ? Author Type: Registered Nurse Type: Nursing Progress Note Filed: 10/05/2022 3:47 PM Note Text: Other: report called to [facility]. Daughter to transport patient. [facility] 10-05-2022 Note HNO ID: [id number] Author: Francy Pierre RN Service: Care Management Author Type: Registered Nurse Type: Care Mgt Progress Note Filed: 10/05/2022 3:53 PM Note Text: CARE MANAGEMENT DISCHARGE NOTE SERVICE DATE: 10/05/2022 SERVICE TIME: 3:39 PM LOS: 6 days Admission Date: 09/29/2022 DISCHARGE ARRANGEMENT (list agency and phone number) Discharge Arrangement: Shelter Facility Was an expedited discharge program used?: No Provider Name: [facility] CAREGIVER ASSESSMENT: Caregiver is ready, willing and able to meet the patient's needs as recommended by the inter-professional team:: Yes Patient's transition needs and plan for meeting these needs: SNF HANDOFF COMMUNICATION: Handoff to: Other Caregiver Other Caregiver Name/Phone: [facility]/ Bedside RN TRANSPORTATION ARRANGEMENTS: Transportation Arrangements: Car Needs Prior to Discharge: Ready for Discharge Discharge today. Discharge orders complete. [facility] is able to accept patient. No insurance authorization needed. Family will transport around 1700. [facility] Unit notified. Bedside RN notified. SIGNATURE: Francy Pierre RN PATIENT NAME: Jose De Jesus Gold DATE: October 05, 2022 TIME: 3:39 PM PAGER/CONTACT #: [phone] [facility] 10-05-2022 Note HNO ID: [id number] Author: Francy Pierre RN Service: Care Management Author Type: Registered Nurse Type: Care Mgt Progress Note Filed: 10/05/2022 11:31 AM Note Text: CARE MANAGEMENT PROGRESS NOTE SERVICE DATE: 10/05/2022 SERVICE TIME: 11:31 AM LOS: 6 days IMM Follow Up Copy Given: Yes Copy given to:: Patient Method: In Person SIGNATURE: Francy Pierre RN PATIENT NAME: Jose De Jesus Gold DATE: October 05, 2022 TIME: 11:31 AM PAGER/CONTACT #: [phone] [facility] 10-05-2022 Note HNO ID: [id number] Author: Francy Pierre RN Service: Care Management Author Type: Registered Nurse Type: Care Mgt Progress Note Filed: 10/05/2022 9:11 AM Note Text: CARE MANAGEMENT PROGRESS NOTE SERVICE DATE: 10/05/2022 SERVICE TIME: 9:06 AM LOS: 6 days Care Coordination Summary: Situation: Pneumatosis intestinalis and pneumoperitoneum. On TPN. Sheets catheter in place. Colostomy. Per ID, will need a minimum of 2 weeks cefepime or until stent removal. PT recommends home therapy. OT evaluation pending. DC Disposition: Patient from home alone prior to admission. Due to patient's medical complexity and need for IV antibiotics, plan is for SNF placement at discharge. [facility] Unit is able to accept patient once medically stable. No insurance authorization needed. Anticipated DC Date: In the next 24- 48 hours. DC Transportation: If able to safely do so, patient's family will provide transportation at discharge. SIGNATURE: Francy Pierre RN PATIENT NAME: Jose De Jesus Gold DATE: October 05, 2022 TIME: 9:06 AM PAGER/CONTACT #: [phone] [facility] 10-05-2022 Note HNO ID: [id number] Author: Anita Burgos APRN.ACADEMIC ASSISTANT Service: General Surgery Author Type: Nurse Specialist Type: Progress Notes Filed: 10/05/2022 2:52 PM Note Text: Emergency General Surgery Progress Note SERVICE DATE: October 05, 2022 Emergency General Surgery Service Pager: For questions or concerns Mon-Fri 6a-5p please page [phone]. After 5pm and on Weekends and Holidays, please page [phone] if in ICU or [phone] if on RNF. SUBJECTIVE: Pt denies abdominal pain. Tolerating diet without N/V, had been worried about advance to GI diet - advised to take slowly - po intake documented on 1 shift was adequate. Sts I think this IV nutrition really did me some good . Continued ostomy output. Aileen was DCd yesterday with adequate output OBJECTIVE: Vitals: Temp (24hrs), Av.9 ?C (98.5 ?F), Min:36.5 ?C (97.7 ?F), Max:37.2 ?C (99 ?F) BP 90/77 Pulse 84 Temp 37.1 ?C (98.8 ?F) (Oral) Resp 18 Ht 152.4 cm (5') Wt 52.1 kg (114 lb 13.8 oz) SpO2 99% BMI 22.43 kg/m? O2 Therapy: Room Air IANDO: Date 10/04/22 0700 - 10/05/22 0659 10/05/22 0700 - 10/06/22 0659 Shift 6720-3022 4703-9914 8063-9518 24 Hour Total 8121-7453 6396-5101 8967-3926 24 Hour Total INTAKE PO 360 480 840 460 460 PO 360 480 840 460 460 Shift Total 360 480 840 460 460 OUTPUT Urine 1200 958 238 3764 300 300 Void (ml) 800 818 893 7777 300 300 Output ([REMOVED] Indwelling Urinary Catheter Admission to [facility] 10/04/22 1040) 400 400 Ostomy 431 969 5089 250 250 Output (mL) (Colostomy LLQ) 827 310 8683 250 250 Shift Total 2100 3658 637 0837 550 550 Weight (kg) 54.4 54.4 52.1 52.1 52.1 52.1 52.1 52.1 MEDICATIONS Current Facility-Administered Medications Medication Dose Route Frequency iv contrast (radiology procedure) INTRAVENOUS DIRECTED PRN And enteric contrast (radiology procedure) ORAL DIRECTED PRN Parenteral Nutrition - Adult INTRAVENOUS ONCE PN (1800 START) Parenteral Nutrition - Adult INTRAVENOUS ONCE PN (1800 START) cefepime 1 g in D5W 100 mL Vial-Bag (MAXIPIME) 1 g INTRAVENOUS q 12 H phenol 1 [place] (CHLORASEPTIC) 1 [place] MUCOUS MEMBRANE (TOPICAL MOUTH AND THROAT) q 2 H PRN thiamine 100 mg tab(s) (VITAMIN B1) 100 mg ORAL TID dextrose 5% in NaCl 0.45% iv infusion 30-150 mL/hr INTRAVENOUS PRN sodium chloride 0.9 % (flush) 20 mL (BD POSIFLUSH) 20 mL INTRAVENOUS DAILY AT 6 PM sodium chloride 0.9 % (flush) 3-5 mL (BD POSIFLUSH) 3-5 mL INTRAVENOUS q 12 H NaCl 0.9% iv flush bag 20 mL INTRAVENOUS PRN acetaminophen 975 mg tab(s) (TYLENOL) 975 mg ORAL QID ondansetron (PF) 4 mg injection (ZOFRAN) 4 mg INTRAVENOUS q 6 H PRN levothyroxine 50 mcg tab(s) (SYNTHROID) 50 mcg ORAL BEFORE BREAKFAST DAILY enoxaparin 30 mg injection (LOVENOX) 30 mg SUBCUTANEOUS DAILY sodium chloride 0.9 % (flush) 10 mL (BD POSIFLUSH) 10 mL INTRAVENOUS q 12 H sodium chloride 0.9 % (flush) 20 mL (BD POSIFLUSH) 20 mL INTRAVENOUS PRN pantoprazole 40 mg injection (PROTONIX) 40 mg INTRAVENOUS BID AC (0600/1600) LORazepam 0.5 mg tab(s) (ATIVAN) 0.5 mg ORAL BID PRN buPROPion XL 150 mg tab(s) (WELLBUTRIN XL) 150 mg ORAL DAILY Labs: Recent Labs 10/05/22 0609 10/04/22 0410 10/03/22 0159 NA 136 138 139 K 4.6 5.2* 4.7 CHLOR 102 102 101 CO2 23 27 30 BUN 27* 28* 24* CREAT 1.23* 1.31* 1.15* GLUC 101* 102* 93 ANION 11 9 8* CA 9.0 9.3 8.8 MG 2.1 2.2 2.3 P 4.2 3.9 3.5 ALB 3.3* -- 3.2* AST -- -- 9* ALT -- -- 6* ALKPHOS -- -- 68 TBILI -- -- 0.4 WBC -- 11.66* 11.07* HB -- 11.5 11.8 HCT -- 37.0 37.8 PLT -- 158 146* Physical Exam: General: alert, in no distress Eyes: gross vision intact, no scleral icterus ENT: atraumatic, no gross abnormality CV: warm, well perfused Pulm: equal chest rise b/l, unlabored breathing on RA GI: abdomen soft, nontender, distended, colostomy with liquid stool : voiding Skin: atraumatic, no jaundice Extremities: gross motor intact, atraumatic Psych: mood appropriate, no significant distress Neuro: orient, follows command ASSESSMENT AND PLAN: Assessment Active Hospital Problems Diagnosis Date Noted Pneumoperitoneum 09/29/2022 Pneumatosis intestinalis of large intestine 09/29/2022 Calculus of kidney 03/25/2010 Stage 3a chronic kidney disease (HCC) 09/21/2007 Overview Note: Dr. 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 [facility] 10-04-2022 Note HNO ID: [id number] Author: Francy Pierre RN Service: Care Management Author Type: Registered Nurse Type: Care Mgt Progress Note Filed: 10/04/2022 2:50 PM Note Text: CARE MANAGEMENT PROGRESS NOTE SERVICE DATE: 10/04/2022 SERVICE TIME: 2:49 PM LOS: 5 days Care Coordination Summary: Due to patient's medical complexity and need for IV antibiotics, plan is for SNF placement at discharge. [facility] is able to accept patient once medically stable. No insurance authorization needed. SIGNATURE: Francy Pierre RN PATIENT NAME: Jose De Jesus Gold DATE: October 04, 2022 TIME: 2:48 PM PAGER/CONTACT #: [phone] [facility] 10-04-2022 Note HNO ID: [id number] Author: Bismark Brand MD Service: General Surgery Author Type: Resident Type: Progress Notes Filed: 08/10/2023 4:07 PM Note Text: Emergency General Surgery Progress Note SERVICE DATE: October 04, 2022 Emergency General Surgery Service Pager: For questions or concerns Mon-Fri 6a-5p please page [phone]. After 5pm and on Weekends and Holidays, please page [phone] if in ICU or [phone] if on RNF. SUBJECTIVE: NAEON. VSS. No complaints this morning. Continued ostomy output. OBJECTIVE: Vitals: Temp (24hrs), Av.8 ?C (98.3 ?F), Min:36.5 ?C (97.7 ?F), Max:37.1 ?C (98.8 ?F) BP 107/69 Pulse 89 Temp 36.9 ?C (98.4 ?F) (Oral) Resp 16 Ht 152.4 cm (5') Wt 54.4 kg (119 lb 14.9 oz) SpO2 98% BMI 23.42 kg/m? O2 Therapy: Room Air IANDO: Date 10/03/22 0700 - 10/04/22 0659 10/04/22 07 - 10/05/22 0659 Shift 2688-9276 1912-4664 6751-7431 24 Hour Total 9039-9442 9019-0319 7805-9277 24 Hour Total INTAKE PO 240 360 600 PO 240 360 600 TPN/PPN 910 910 Volume (mL) (Parenteral Nutrition - Adult) 910 910 Shift Total 240 631 680 3113 OUTPUT Urine 868 540 9859 2300 800 800 Void (ml) 400 400 Output ([REMOVED] Indwelling Urinary Catheter Admission to [facility] 10/04/22 1040) 776 488 5351 2300 400 400 Ostomy 550 0 550 Output (mL) (Colostomy LLQ) 550 0 550 Shift Total 9050 232 4132 2850 800 800 Weight (kg) 59.6 59.6 54.4 54.4 54.4 54.4 54.4 54.4 MEDICATIONS Current Facility-Administered Medications Medication Dose Route Frequency Parenteral Nutrition - Adult INTRAVENOUS ONCE PN (1800 START) Parenteral Nutrition - Adult INTRAVENOUS ONCE PN (1800 START) cefepime 1 g in D5W 100 mL Vial-Bag (MAXIPIME) 1 g INTRAVENOUS q 12 H phenol 1 [facility] (CHLORASEPTIC) 1 [facility] MUCOUS MEMBRANE (TOPICAL MOUTH AND THROAT) q 2 H PRN thiamine 100 mg tab(s) (VITAMIN B1) 100 mg ORAL TID dextrose 5% in NaCl 0.45% iv infusion 30-150 mL/hr INTRAVENOUS PRN sodium chloride 0.9 % (flush) 20 mL (BD POSIFLUSH) 20 mL INTRAVENOUS DAILY AT 6 PM sodium chloride 0.9 % (flush) 3-5 mL (BD POSIFLUSH) 3-5 mL INTRAVENOUS q 12 H NaCl 0.9% iv flush bag 20 mL INTRAVENOUS PRN acetaminophen 975 mg tab(s) (TYLENOL) 975 mg ORAL QID ondansetron (PF) 4 mg injection (ZOFRAN) 4 mg INTRAVENOUS q 6 H PRN levothyroxine 50 mcg tab(s) (SYNTHROID) 50 mcg ORAL BEFORE BREAKFAST DAILY enoxaparin 30 mg injection (LOVENOX) 30 mg SUBCUTANEOUS DAILY sodium chloride 0.9 % (flush) 10 mL (BD POSIFLUSH) 10 mL INTRAVENOUS q 12 H sodium chloride 0.9 % (flush) 20 mL (BD POSIFLUSH) 20 mL INTRAVENOUS PRN pantoprazole 40 mg injection (PROTONIX) 40 mg INTRAVENOUS BID AC (0600/1600) LORazepam 0.5 mg tab(s) (ATIVAN) 0.5 mg ORAL BID PRN buPROPion XL 150 mg tab(s) (WELLBUTRIN XL) 150 mg ORAL DAILY Labs: Recent Labs 10/04/22 0410 10/03/22 0159 NA 138 139 K 5.2* 4.7 CHLOR 102 101 CO2 27 30 BUN 28* 24* CREAT 1.31* 1.15* GLUC 102* 93 ANION 9 8* CA 9.3 8.8 MG 2.2 2.3 P 3.9 3.5 ALB -- 3.2* AST -- 9* ALT -- 6* ALKPHOS -- 68 TBILI -- 0.4 WBC 11.66* 11.07* HB 11.5 11.8 HCT 37.0 37.8 PLT 158 146* Physical Exam: General: alert, in no distress Eyes: gross vision intact, no scleral icterus ENT: atraumatic, no gross abnormality CV: warm, well perfused Pulm: equal chest rise b/l, unlabored breathing on RA GI: abdomen soft, nontender, distended, colostomy with liquid stool : sheets Skin: atraumatic, no jaundice Extremities: gross motor intact, atraumatic Psych: mood appropriate, no significant distress Neuro: orient, follows command ASSESSMENT AND PLAN: Assessment Active Hospital Problems Diagnosis Date Noted Pneumoperitoneum 09/29/2022 Pneumatosis intestinalis of large intestine 09/29/2022 Calculus of kidney 03/25/2010 Stage 3a chronic kidney disease (HCC) 09/21/2007 Overview Note: Dr. Faye -: CKD stage III likely from chronic interstitial nephritis from NSAIDs Colostomy status ([facility]) 05/08/2007 Diarrhea 11/22/2005 Overview Note: Radiation Enteritis Assessment: Jose De Jesus Gold is a 77 year old female with PMH of anal CA s/p chemoradiation and loop colostomy creation (16 years ago), COPD, TIA, depression, HTN, HLD, CKD III, recent Crohns diagnosis (on AZTP, and steroid taper), lung adenoCA s/p left upper lobectomy (06/2020), h/o hydronephrosis/pyelo/sepsis 08/2022 and recent R ureteral stent placement on 09/26 who presented as a direct admit for evaluation of pneumatosis intestinalis and pneumoperitoneum. Leukocytosis Pneumatosis Pneumoperitoneum - Pt is clinically doing well, remains AF, HDS, with resolved leukocytosis and bowel function - Cont empiric IV abx, ID consulted for duration recommendations - meropenem changed to cefepime - rechecking blood clx - minimum of 2 weeks or until stent removed - Interval CT 10/05 - Cont TPN - FLD - LVX - Urology consulted - In patient void trial - PT - home PT, but pa (more content not included)... [facility] 10-04-2022 Note HNO ID: [id number] Author: Francy Pierre RN Service: Care Management Author Type: Registered Nurse Type: Care Mgt Progress Note Filed: 10/04/2022 12:03 PM Note Text: CARE MANAGEMENT PROGRESS NOTE SERVICE DATE: 10/04/2022 SERVICE TIME: 11:38 AM LOS: 5 days Care Coordination Summary: Situation: Patient from home alone prior to admission. Pneumatosis intestinalis and pneumoperitoneum. On TPN. Sheets catheter in place. Colostomy. Per ID, will need a minimum of 2 weeks cefepime or until stent removal. PT recommends home therapy. OT evaluation pending. DC Disposition: Spoke with patient at the bedside. Due to patient's medical complexity and need for IV antibiotics, patient requests SNF placement at discharge. Patient's SNF choice is [facility] due to past experience. [facility] notified. Awaiting acceptance. Anticipated DC Date: To be determined. DC Transportation: If able to safely do so, patient's family will provide transportation at discharge. SIGNATURE: Francy Pierre RN PATIENT NAME: Jose De Jesus Gold DATE: October 04, 2022 TIME: 11:38 AM PAGER/CONTACT #: [phone] [facility] 10-03-2022 Note HNO ID: [id number] Author: India Millan MD Service: Urology Author Type: Resident Type: Plan of Care Filed: 10/03/2022 5:55 PM Note Text: Urology Plan of Care Urology called to bedside to discuss urologic plan with patient's daughter. Maintain ureteral stent until OP follow up with home urologist who placed stent. Patient ok for VT prior to DC per primary team. Please call/text or Epic message with non-urgent questions/concerns and otherwise page the urology resident ammonia refrigeration worker if needed India Millan MD Urology PGY-1 October 03, 2022 5:47 PM Active void trial instructions - Please instill 200cc of normal saline through the sheets into the bladder, then immediately remove sheets. Have patient void and measure voided volume. Immediately after voiding, obtain post void residual volume on bladder scan. Text page resident both the voided volume and the PVR volume. [facility] 10-03-2022 Note HNO ID: [id number] Author: Francy Pierre RN Service: Care Management Author Type: Registered Nurse Type: Care Mgt Progress Note Filed: 10/03/2022 1:51 PM Note Text: CARE MANAGEMENT PROGRESS NOTE SERVICE DATE: 10/03/2022 SERVICE TIME: 1:30 PM LOS: 4 days Care Coordination Summary: Situation: Patient admitted with pneumatosis intestinalis and pneumoperitoneum. On TPN. Advanced to clear liquid diet. Sheets catheter in place. Colostomy. ID consulted for antibiotic management. DC Disposition: Patient from home alone prior to admission. Patient recently discharged from [facility]. Patient resides in a one level home with 4 steps to enter. Patient is fairly independent and utilizes a rollator. Patient has a good family support system in place and patient's daughters live nearby. Patient is not currently active with any skilled home health care or home therapy services. Patient is independent with her ostomy care and receives her ostomy supplies from [employer]. At this time, plan is for patient to return home once medically stable. Will continue to follow clinical course for transitional/discharge planning needs. Anticipated DC Date: To be determined. DC Transportation: If able to safely do so, patient's family will provide transportation at discharge. SIGNATURE: Francy Pierre RN PATIENT NAME: Jose De Jesus Gold DATE: October 03, 2022 TIME: 1:29 PM PAGER/CONTACT #: [phone] [facility] 10-03-2022 Note HNO ID: [id number] Author: Francy Pierre RN Service: Care Management Author Type: Registered Nurse Type: Care Mgt Progress Note Filed: 10/03/2022 12:37 PM Note Text: CARE MANAGEMENT PROGRESS NOTE SERVICE DATE: 10/03/2022 SERVICE TIME: 12:37 PM LOS: 4 days IMM Follow Up Copy Given: Yes Copy given to:: Patient Method: In Person SIGNATURE: Francy Pierre RN PATIENT NAME: Jose De Jesus Gold DATE: October 03, 2022 TIME: 12:37 PM PAGER/CONTACT #: [phone] [facility] 10-03-2022 Note HNO ID: [id number] Author: Bismark Brand MD Service: General Surgery Author Type: Resident Type: Progress Notes Filed: 10/03/2022 8:34 AM Note Text: Attestation signed by Da Trujillo MD at 10/03/2022 8:12 PM Attending Note I evaluated the patient and personally participated in the matthew components. I agree with the resident's findings and plan with the following revisions and/or additions: IV abx per ID, no NG tube, patient without pain, patient having ostomy output. Nutritional support, advancing diet slowly Patient has had prior difficulty with early advancement of diet and is concerned to have too much too soon. Will adjust to clear or full liquid based upon patient preference. Plan for interval CT scan of abdomen/pelvis at 1 week from the last one and prior to discharge. Da Trujillo MD Emergency General Surgery Progress Note SERVICE DATE: October 03, 2022 Emergency General Surgery Service Pager: For questions or concerns Mon-Fri 6a-5p please page [phone]. After 5pm and on Weekends and Holidays, please page [phone] if in ICU or [phone] if on RNF. SUBJECTIVE: NAEON. VSS. No complaints this morning. Continued ostomy output. OBJECTIVE: Vitals: Temp (24hrs), Av.7 ?C (98 ?F), Min:36.4 ?C (97.5 ?F), Max:36.9 ?C (98.4 ?F) BP 115/63 Pulse 77 Temp 36.8 ?C (98.2 ?F) (Oral) Resp 18 Ht 152.4 cm (5') Wt 59.6 kg (131 lb 6.3 oz) SpO2 96% BMI 25.66 kg/m? O2 Therapy: Room Air IANDO: Date 10/02/22 0700 - 10/03/22 0659 10/03/22 0700 - 10/04/22 0659 Shift 5616-1226 7796-3158 2326-5242 24 Hour Total 3315-0336 3315-7157 9003-9143 24 Hour Total INTAKE Shift Total OUTPUT Urine 5147 162 0268 3525 Output ( Indwelling Urinary Catheter [facility] to [facility]) 2002 319 1023 3525 Ostomy 10 200 210 Output (mL) (Colostomy LLQ) 10 200 210 Shift Total 2062 509 7430 3735 Weight (kg) 58.2 58.2 59.6 59.6 59.6 59.6 59.6 59.6 MEDICATIONS Current Facility-Administered Medications Medication Dose Route Frequency Parenteral Nutrition - Adult INTRAVENOUS ONCE PN (1800 START) phenol 1 [facility] (CHLORASEPTIC) 1 [facility] MUCOUS MEMBRANE (TOPICAL MOUTH AND THROAT) q 2 H PRN adult multivitamin 10 mL, folic acid 1 mg, thiamine 100 mg in lactated Ringers 1,000 mL INTRAVENOUS q 24 HR magnesium sulfate iv piggyback in sterile water 2 g 50 mL 2 g INTRAVENOUS q 24 HR thiamine 100 mg tab(s) (VITAMIN B1) 100 mg ORAL TID dextrose 5% in NaCl 0.45% iv infusion 30-150 mL/hr INTRAVENOUS PRN sodium chloride 0.9 % (flush) 20 mL (BD POSIFLUSH) 20 mL INTRAVENOUS DAILY AT 6 PM sodium chloride 0.9 % (flush) 3-5 mL (BD POSIFLUSH) 3-5 mL INTRAVENOUS q 12 H NaCl 0.9% iv flush bag 20 mL INTRAVENOUS PRN acetaminophen 975 mg tab(s) (TYLENOL) 975 mg ORAL QID morphine 2 mg injection 2 mg INTRAVENOUS q 6 H PRN oxyCODONE IR 5 mg tab(s) (ROXICODONE) 5 mg ORAL q 3 H PRN ondansetron (PF) 4 mg injection (ZOFRAN) 4 mg INTRAVENOUS q 6 H PRN levothyroxine 50 mcg tab(s) (SYNTHROID) 50 mcg ORAL BEFORE BREAKFAST DAILY enoxaparin 30 mg injection (LOVENOX) 30 mg SUBCUTANEOUS DAILY meropenem 1 g in NaCl 0.9% 100 mL Vial-Bag (MERREM) 1 g INTRAVENOUS q 12 H sodium chloride 0.9 % (flush) 10 mL (BD POSIFLUSH) 10 mL INTRAVENOUS q 12 H sodium chloride 0.9 % (flush) 20 mL (BD POSIFLUSH) 20 mL INTRAVENOUS PRN pantoprazole 40 mg injection (PROTONIX) 40 mg INTRAVENOUS BID AC (0600/1600) sodium bicarbonate 650 mg 650 mg ORAL TID LORazepam 0.5 mg tab(s) (ATIVAN) 0.5 mg ORAL BID PRN buPROPion XL 150 mg tab(s) (WELLBUTRIN XL) 150 mg ORAL DAILY Labs: Recent Labs 10/03/22 0159 10/02/22 0441 NA 139 137 K 4.7 4.2 CHLOR 101 102 CO2 30 27 BUN 24* 15 CREAT 1.15* 1.01* GLUC 93 144* ANION 8* 8* CA 8.8 8.3* MG 2.3 2.7* P 3.5 2.9 ALB 3.2* -- AST 9* -- ALT 6* -- ALKPHOS 68 -- TBILI 0.4 -- WBC 11.07* 11.06* HB 11.8 11.3* HCT 37.8 34.7* PLT 146* 138* Physical Exam: General: alert, in no distress Eyes: gross vision intact, no scleral icterus ENT: atraumatic, no gross abnormality CV: warm, well perfused Pulm: equal chest rise b/l, unlabored breathing on RA GI: abdomen soft, nontender, distended, colostomy with liquid stool : sheets Skin: atraumatic, no jaundice Extremities: gross motor intact, atraumatic Psych: mood appropriate, no significant distress Neuro: orient, follows command ASSESSMENT AND PLAN: Assessment Active Hospital Problems Diagnosis Date Noted Pneumoperitoneum 09/29/2022 Pneumatosis intestinalis of large intestine 09/29/2022 Calculus of kidney 03/25/2010 Stage 3a chronic kidney disease (HCC) 09/21/2007 Overview Note: Dr. Faye 07-15: CKD stage III likely from chronic interstitial nephritis from NSAIDs Colostomy status (HCC) 05/08/2007 Diarrhea 11/22/2005 (more content not included)... [facility] 10-02-2022 Note HNO ID: [id number] Author: Maya Mock MD Service: General Surgery Author Type: Resident Type: Progress Notes Filed: 10/02/2022 9:50 AM Note Text: Attestation signed by Da Trujillo MD at 10/03/2022 8:25 PM Attending Note I evaluated the patient and personally participated in the matthew components on 10/02/2022 I agree with the resident's findings and plan as documented and have discussed the case and management of the patient's care with the resident. Da Trujillo MD Delayed entry Emergency General Surgery Progress Note SERVICE DATE: October 02, 2022 Emergency General Surgery Service Pager: For questions or concerns Mon-Fri 6a-5p please page [phone]. After 5pm and on Weekends and Holidays, please page [phone] if in ICU or [phone] if on RNF. SUBJECTIVE: Doing well this morning. No further reactions to TPN. She is having colostomy output, Denies N, V OBJECTIVE: Vitals: Temp (24hrs), Av.6 ?C (97.8 ?F), Min:36.3 ?C (97.3 ?F), Max:37 ?C (98.6 ?F) BP 136/74 Pulse 71 Temp 36.8 ?C (98.2 ?F) (Oral) Resp 18 Ht 152.4 cm (5') Wt 58.2 kg (128 lb 4.9 oz) SpO2 95% BMI 25.06 kg/m? O2 Therapy: Room Air IANDO: Date 10/01/22 07 - 10/02/22 0659 10/02/22 07 - 10/03/22 0659 Shift 0441-7556 0843-7182 2324-6366 24 Hour Total 1851-5452 2912-9839 2318-4493 24 Hour Total INTAKE IV 150 150 Volume (mL) (meropenem 1 g in NaCl 0.9% 100 mL Vial-Bag (MERREM)) 100 100 Volume (mL) (magnesium sulfate iv piggyback in sterile water 2 g 50 mL) 50 50 Shift Total 150 150 OUTPUT Urine 1175 1725 1300 4200 450 450 Output ( Indwelling Urinary Catheter Admission to [facility]) 1175 1725 1300 4200 450 450 Tubes 0 0 Output (GI Feed 09/29/22 Assessment Right Naris) 0 0 Ostomy 250 250 Output (mL) (Colostomy LLQ) 250 250 Shift Total 1175 1725 1550 4450 450 450 Weight (kg) 60.2 60.2 58.2 58.2 58.2 58.2 58.2 58.2 MEDICATIONS Current Facility-Administered Medications Medication Dose Route Frequency phenol 1 [facility] (CHLORASEPTIC) 1 [facility] MUCOUS MEMBRANE (TOPICAL MOUTH AND THROAT) q 2 H PRN adult multivitamin 10 mL, folic acid 1 mg, thiamine 100 mg in lactated Ringers 1,000 mL INTRAVENOUS q 24 HR magnesium sulfate iv piggyback in sterile water 2 g 50 mL 2 g INTRAVENOUS q 24 HR thiamine 100 mg tab(s) (VITAMIN B1) 100 mg ORAL TID Parenteral Nutrition - Adult INTRAVENOUS ONCE PN (1800 START) dextrose 5% in NaCl 0.45% iv infusion 30-150 mL/hr INTRAVENOUS PRN sodium chloride 0.9 % (flush) 20 mL (BD POSIFLUSH) 20 mL INTRAVENOUS DAILY AT 6 PM sodium chloride 0.9 % (flush) 3-5 mL (BD POSIFLUSH) 3-5 mL INTRAVENOUS q 12 H NaCl 0.9% iv flush bag 20 mL INTRAVENOUS PRN acetaminophen 975 mg tab(s) (TYLENOL) 975 mg ORAL QID morphine 2 mg injection 2 mg INTRAVENOUS q 6 H PRN oxyCODONE IR 5 mg tab(s) (ROXICODONE) 5 mg ORAL q 3 H PRN ondansetron (PF) 4 mg injection (ZOFRAN) 4 mg INTRAVENOUS q 6 H PRN levothyroxine 50 mcg tab(s) (SYNTHROID) 50 mcg ORAL BEFORE BREAKFAST DAILY enoxaparin 30 mg injection (LOVENOX) 30 mg SUBCUTANEOUS DAILY meropenem 1 g in NaCl 0.9% 100 mL Vial-Bag (MERREM) 1 g INTRAVENOUS q 12 H sodium chloride 0.9 % (flush) 10 mL (BD POSIFLUSH) 10 mL INTRAVENOUS q 12 H sodium chloride 0.9 % (flush) 20 mL (BD POSIFLUSH) 20 mL INTRAVENOUS PRN pantoprazole 40 mg injection (PROTONIX) 40 mg INTRAVENOUS BID AC (0600/1600) sodium bicarbonate 650 mg 650 mg ORAL TID LORazepam 0.5 mg tab(s) (ATIVAN) 0.5 mg ORAL BID PRN buPROPion XL 150 mg tab(s) (WELLBUTRIN XL) 150 mg ORAL DAILY Labs: Recent Labs 10/02/22 0441 10/01/22 0231 09/30/22 0417 09/29/22 1045 NA 137 140 < > 142 K 4.2 3.4* < > 3.8 CHLOR 102 106* < > 110* CO2 27 23 < > 16* BUN 15 11 < > 17 CREAT 1.01* 1.10* < > 1.43* GLUC 144* 87 < > 72* ANION 8* 11 < > 16 CA 8.3* 8.3* < > 8.4* MG 2.7* 1.7 -- -- P 2.9 2.0* -- -- ALB -- -- -- 3.1* AST -- -- -- 14 ALT -- -- -- 8 ALKPHOS -- -- -- 95 TBILI -- -- -- 0.4 WBC 11.06* 13.37* < > 22.89* HB 11.3* 10.2* < > 11.7 HCT 34.7* 31.7* < > 37.5 PLT 138* 128* < > 151 LACT -- -- -- 1.2 < > = values in this interval not displayed. Physical Exam: General: Alert, in no distress Eyes: gross vision intact, no scleral icterus ENT: atraumatic, No gross abnormality CV: warm, well perfused Pulm: equal chest rise b/l, unlabored breathing on RA GI: abdomen soft, nontender, distended, colostomy with liquid stool, NG with clear output : sheets Skin: atraumatic, no jaundice Extremities: gross motor intact, atraumatic Psych: mood appropriate, no significant distress Neuro: orient, follows command ASSESSMENT AND PLAN: Assessment Active Hospital Problems Diagnosis Date Noted Pneumoperitoneum 09/29/2022 Pneumatosis intestinalis of large intest (more content not included)... [facility] 10-01-2022 Note HNO ID: [id number] Author: Maya Mock MD Service: General Surgery Author Type: Resident Type: Progress Notes Filed: 10/01/2022 6:05 AM Note Text: Attestation signed by Da Trujillo MD at 10/12/2022 4:51 PM Attending Note I evaluated the patient and personally participated in the matthew components on 10/01/2022 I agree with the resident's findings and plan as documented and have discussed the case and management of the patient's care with the resident. Da Trujillo MD Delayed entry Emergency General Surgery Progress Note SERVICE DATE: October 01, 2022 Emergency General Surgery Service Pager: For questions or concerns Mon-Fri 6a-5p please page [phone]. After 5pm and on Weekends and Holidays, please page [phone] if in ICU or [phone] if on RNF. SUBJECTIVE: Had an allergic reaction to TPN (itchiness along the infusion site) TPN was held Reports her abd pain has improved. She is resting comfortably, she how liquid brown stool in her colostomy OBJECTIVE: Vitals: Temp (24hrs), Av.5 ?C (97.7 ?F), Min:36 ?C (96.8 ?F), Max:37 ?C (98.6 ?F) BP 142/69 Pulse 65 Temp 36.8 ?C (98.2 ?F) (Oral) Resp 18 Ht 152.4 cm (5') Wt 60.2 kg (132 lb 11.5 oz) SpO2 95% BMI 25.92 kg/m? O2 Therapy: Room Air IANDO: Date 09/30/22699 - 10/01/22 0659 10/01/22 07 - 10/02/22 0659 Shift 1396-5090 4139-2037 3605-9904 24 Hour Total 2001-7393 3914-4092 7586-0294 24 Hour Total INTAKE IV 502 502 Volume (mL) (dextrose 5% in NaCl 0.45% iv infusion) 502 502 Shift Total 502 502 OUTPUT Urine 1000 1975 2975 Void (ml) 475 475 Output ( Indwelling Urinary Catheter Admission to [facility]) 1000 1500 2500 Tubes 947 869 9115 Output (GI Feed 09/29/22 Assessment Right Naris) 716 869 8745 Shift Total 4191 273 6004 4075 Weight (kg) 60.2 60.2 60.2 60.2 60.2 60.2 60.2 60.2 MEDICATIONS Current Facility-Administered Medications Medication Dose Route Frequency phenol 1 [facility] (CHLORASEPTIC) 1 [facility] MUCOUS MEMBRANE (TOPICAL MOUTH AND THROAT) q 2 H PRN magnesium sulfate in sterile water 4 g in 100 mL iv piggyback 4 g INTRAVENOUS ONCE potassium phosphate 45 mmol in NaCl 0.9% 500 mL 45 mmol INTRAVENOUS ONCE Parenteral Nutrition - Adult INTRAVENOUS ONCE PN (1800 START) dextrose 5% in NaCl 0.45% iv infusion 30-150 mL/hr INTRAVENOUS PRN sodium chloride 0.9 % (flush) 20 mL (BD POSIFLUSH) 20 mL INTRAVENOUS DAILY AT 6 PM sodium chloride 0.9 % (flush) 3-5 mL (BD POSIFLUSH) 3-5 mL INTRAVENOUS q 12 H NaCl 0.9% iv flush bag 20 mL INTRAVENOUS PRN acetaminophen 975 mg tab(s) (TYLENOL) 975 mg ORAL QID morphine 2 mg injection 2 mg INTRAVENOUS q 6 H PRN oxyCODONE IR 5 mg tab(s) (ROXICODONE) 5 mg ORAL q 3 H PRN ondansetron (PF) 4 mg injection (ZOFRAN) 4 mg INTRAVENOUS q 6 H PRN levothyroxine 50 mcg tab(s) (SYNTHROID) 50 mcg ORAL BEFORE BREAKFAST DAILY enoxaparin 30 mg injection (LOVENOX) 30 mg SUBCUTANEOUS DAILY meropenem 1 g in NaCl 0.9% 100 mL Vial-Bag (MERREM) 1 g INTRAVENOUS q 12 H sodium chloride 0.9 % (flush) 10 mL (BD POSIFLUSH) 10 mL INTRAVENOUS q 12 H sodium chloride 0.9 % (flush) 20 mL (BD POSIFLUSH) 20 mL INTRAVENOUS PRN pantoprazole 40 mg injection (PROTONIX) 40 mg INTRAVENOUS BID AC (0600/1600) sodium bicarbonate 650 mg 650 mg ORAL TID LORazepam 0.5 mg tab(s) (ATIVAN) 0.5 mg ORAL BID PRN buPROPion XL 150 mg tab(s) (WELLBUTRIN XL) 150 mg ORAL DAILY Labs: Recent Labs 10/01/22 0231 09/30/22 0417 09/29/22 1045 NA 140 144 142 K 3.4* 3.5* 3.8 CHLOR 106* 111* 110* CO2 23 17* 16* BUN 11 16 17 CREAT 1.10* 1.29* 1.43* GLUC 87 66* 72* ANION 11 16 16 CA 8.3* 8.2* 8.4* MG 1.7 -- -- P 2.0* -- -- ALB -- -- 3.1* AST -- -- 14 ALT -- -- 8 ALKPHOS -- -- 95 TBILI -- -- 0.4 WBC 13.37* 15.51* 22.89* HB 10.2* 9.8* 11.7 HCT 31.7* 31.1* 37.5 PLT 128* 131* 151 LACT -- -- 1.2 Physical Exam: General: Alert, in no distress Eyes: gross vision intact, no scleral icterus ENT: atraumatic, No gross abnormality CV: warm, well perfused Pulm: equal chest rise b/l, unlabored breathing on RA GI: abdomen soft, nontender, distended, colostomy with liquid stool : sheets Skin: atraumatic, no jaundice Extremities: gross motor intact, atraumatic Psych: mood appropriate, no significant distress Neuro: orient, follows command ASSESSMENT AND PLAN: Assessment Active Hospital Problems Diagnosis Date Noted Pneumoperitoneum 09/29/2022 Pneumatosis intestinalis of large intestine 09/29/2022 Calculus of kidney 03/25/2010 Stage 3a chronic kidney disease ([facility]) 09/21/2007 Overview Note: Dr. Faye 07-15: CKD stage III likely from chronic interstitial nephritis from NSAIDs Colostomy status ([facility]) 05/08/2007 Diarrhea 11/22/2005 Overview Note: Radiation Enteritis A (more content not included)... [facility] 09-30-2022 Note HNO ID: [id number] Author: Jessica Howard RN Service: Care Management Author Type: Registered Nurse Type: Care Mgt Initial Assessment Filed: 09/30/2022 12:52 PM Note Text: CARE MANAGEMENT: ASSESSMENT AND DISCHARGE PLAN SERVICE DATE: September 30, 2022 SERVICE TIME: 12:45 PM PRIMARY CARE PHYSICIAN: Elliot Kang MD Primary Contact: Extended Emergency Contact Information Primary Emergency Contact: Jessica Gold [id number] [facility] Mobile Relation: Daughter Secondary Emergency Contact: Coco Mondragon [facility] Mobile Relation: Daughter ADMISSION STATUS: Inpatient Insurance Provider: MEDICARE A AND B NEEDS PRIOR TO DISCHARGE Needs Prior to Discharge: To Be Determined;Discharge Prescriptions POTENTIAL TRANSITION PLANS To Be Determined Based on clinical judgement, Care Management will address the following needs: No transitional/discharge planning needs at this time Patient's perception of need for this admission: Pneumoperitoneum ADVANCE DIRECTIVES Current Advance Directive: Health Care Power of Structures Engineer;Living Will In Chart: No MS/BEHAVIOR Baseline Mental Status Prior to this Illness what was the patient's Baseline Mental Status?: Alert AND Oriented Prior to this illness, has anyone described the patient having any of the following behaviors?: Not Applicable Relationship of the informant to the patient:: Self READMISSION Last Discharge Date: 02/17/15 Is this Within the Past 30 days? 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 Use of any community resources?: No Does the patient have a stable and supportive living arrangement and home setting?: Yes Situation: Lives alone. Are there any potential risks or gaps identified by risk/functional/fall,etc. scores in the EMR?: No Any potential risks related to substance abuse and/or behavioral health?: No Based on clinical judgement, Care Management will address the following needs: No transitional/discharge planning needs at this time CAREGIVER ASSESSMENT Caregiver is ready, willing and able to meet the patient's needs as recommended by the inter-professional team:: No Caregiver needed MEDICAL Medical Needs: Two or more chronic diseases Health Issues Impacting Discharge Plan: Chronic Medication Adherance I am convinced of the importance of my prescription medication: 0 - Agree Completely I worry that my prescription medication will do more harm than good to me : 0 - Disagree Mostly I feel financially burdened by my [id number] expenses for my prescription medication:: 0 - Disagree Mostly Risk Score: 0 Patient is categorized as: Low risk < 2 SOCIAL Living Arrangements: Home Lives With: Alone Financial Resources: Retired Supportive Patient Contact:: Yes Contact Resources: Family Family Name/Phone: Jessica Gold Is Patient Psychosocially Complex?: No Contact Resources: Family Family Name/Phone: Jessica Gold Health Literacy How often do you need to have someone help you when you read instructions, pamphlets, or other written material from your doctor or pharmacy? : 1 - Never How confident are you filling out medical forms by yourself?: 1 - Extremely If Patient scores > 3 on either question, the following interventions were put into place:: Patient did not score > 3 on either question. Food Insecurity: No Food Insecurity Worried About Running Out of Food in the Last Year: Never true Ran Out of Food in the Last Year: Never true Financial Resource Strain: Low Risk Difficulty of Paying Living Expenses: Not very hard Transportation Needs: No Transportation Needs Lack of Transportation (Medical): No Lack of Transportation (Non-Medical): No Housing Stability: Low Risk Unable to Pay for Housing in the Last Year: No Number of Places Lived in the Last Year: 1 Unstable Housing in the Last Year: No BEHAVIORAL/COGNITIVE Psychosocial Psychosocial Needs: None FUNCTIONAL How do you manage to accomplish the following: Independent: Ambulation;Bathe/Shower;Dress;Me als/Meal Prep;Going to the bathroom;Medication Management Dependent: Transportation to appointments/community Services/Needs//Equipment Does Patient Currently Receive Any Community Services or Home Care?: None Equipment Prior to Admission: Walker;Tub bench/chair;Elevated toilet seat Has the Patient Been in a Shelter Facility in the Past 30 days?: No No social discharge barriers identified at this time. No behavioral/cognitive discharge barriers identified at this time. FREEDOM O (more content not included)... [facility] 09-30-2022 Note HNO ID: [id number] Author: Geni Matso RN Service: PICC Team Author Type: Registered Nurse Type: Procedures Filed: 09/30/2022 10:23 AM Note Text: PICC NURSE INSERTION NOTE DATE OF PROCEDURE: September 30, 2022 TIME OF PROCEDURE: 919 ORDERING PHYSICIAN: Patrick INFORMED CONSENT: Obtained per hospital policy. INDICATION FOR LINE PLACEMENT: IV access TPN CONDITION OF LINE PLACEMENT: Sterile PRIMARY PROCEDURALIST: Nayeli Lakhani RN COUNTY RECORDS MANAGEMENT OFFICER: Geni Matos RN PRE-PROCEDURE REVIEW ALLERGIES Allergen Reactions Ddohfga-Tzl-Inx Red* Myalgia Ciprofloxacin Rash Codeine Mag.Citrate [Other] Nsaids (Non-Steroid* Other: See Comments Penicillins Hives Known History of Upper Venous Thrombosis: No Known History of Permanent Pacemaker or Automated Implanted Cardiac Device: No Previous Breast Surgery of Lymph Node Dissection: No Estimated Glomerular Filtration Rate Date Value Ref Range Status 09/30/2022 43 (L) >=60 mL/min/1.73m? Final Comment: Estimated Glomerular Filtration Rate (eGFR) is calculated using the 2020 CKD-EPI creatinine equation. This equation utilizes serum creatinine, sex, and age as parameters. The creatinine assay has traceable calibration to isotope dilution-mass spectrometry. Refer to KDIGO guidelines for clinical interpretation. In patients with unstable renal function, e.g. those with acute kidney injury, the eGFR may not accurately reflect actual GFR. eGFR- Date Value Ref Range Status 07/23/2021 56 Final History of Renal Disease: Yes - Chronic Kidney Disease / Transplant - Clearance provided by Dr. Barrera Arterio-Venous Fistula in Place or Planned: No Ultrasound Assessment Complete: Yes PROCEDURE NARRATIVE SAFE PRACTICE Hand Hygiene per Hospital Policy: Yes Skin Preparation Unit Dose Applicator Used: Chloraprep (CHG + alcohol), allowed to dry. Procedure Surface Cleansed with Antimicrobial Wipes: Yes Barriers Used by Proceduralist and all Assisting Personnel: Yes UNIVERSAL PROTOCOL / SAFETY CHECKLIST Procedure to be Performed: peripherally inserted central catheter Sign In: A Moment of CARE was completed. Personnel directly involved with the procedure wore the appropriate PPE (Personal Protective Equipment). Special equipment: oluAgillic Patient/Surrogate Stated/Verified: PATIENT VERIFIED(optional for EMERGENT procedures): Patient name, Date of , Relevant allergies, and The intended procedure Time Out Communication: Intended patient and procedure match the source documents. Consent documented and matches the intended procedure. Relevant labs, photos, and/or imaging studies have been reviewed. Correct side/site marked and visible. Medications required for procedure verified. Fire risk assessed and interventions discussed. No implant(s) inserted. Sign Out: SIGN OUT (optional for EMERGENT procedures): No specimen collected. All instruments, equipment, possible retained foreign bodies accounted for. Post-procedure follow-up management communicated and Plan of Care Visit completed when applicable. Geni Matos RN CATHETER PLACEMENT Brand: [employer] Platform Lot: [id number] Number of Lumens: 2 Type of PICC: Power Injectable PICC Lumen Size: 5 [place] PLACEMENT TECHNIQUE Lidocaine: Yes, Lidocaine 1% Volume 1 mL Subcutaneous Modified Seldinger Technique Used to Place Line via the Right Brachial Ultrasound Guidance: Yes Number of Attempts at Insertion: 1 Ensured control of guidewire during all aspects of the procedure: Yes Accounted for entire guidewire upon removal: Yes Internal Length: 38 cm External Length: 0 cm Trim Length: 38 cm Mid-Arm Circumference: 28 centimeters Post Insertion Pain Level Related to Procedure: 0 Action Taken to Address Pain: None needed Verified Placement: Blood return and flushes with ease and Tip location system or device indicates the tip is located in the SVC/CAJ. Line was Flushed with 20 mL normal saline Line Secured with: Securement device Sterile Dressing Applied and Dated: Yes Sterile Caps on all Ports Prior to Leaving Procedure Area: Yes, Disinfection caps applied SPECIMENS: None COMPLICATIONS: None Patient Education Materials: Given to patient QUESTIONS or PROBLEMS: Call [phone] SIGNATURE: Geni Matos RN PATIENT NAME: Jose De Jesus Gold DATE: September 30, 2022 TIME: 9:24 AM PAGER/CONTACT PHONE: [facility] 09-30-2022 Note HNO ID: [id number] Author: Marnie Carter MD Service: General Surgery Author Type: Resident Type: Progress Notes Filed: 09/30/2022 7:09 AM Note Text: Attestation signed by Da Trujillo MD at 10/12/2022 3:31 PM Attending Note I evaluated the patient and personally participated in the matthew components on 09/30/2022 I agree with the resident's findings and plan as documented and have discussed the case and management of the patient's care with the resident. Supplemental nutrition, benign abdominal exam, Da Trujillo MD Delayed entry Emergency General Surgery Progress Note SERVICE DATE: September 30, 2022 Emergency General Surgery Service Pager: For questions or concerns Mon-Fri 6a-5p please page [phone]. After 5pm and on Weekends and Holidays, please page [phone] if in ICU or [phone] if on RNF. SUBJECTIVE: NAEON. Denies nausea/vomiting . Denies abdominal pain. Abdomen soft, non tender, non distended. Denies flatus, denies BM. Tolerating diet DIET NPO Nausea No Emesis No Flatus No Bowel movement No Pain Controlled Yes Ambulating Yes OBJECTIVE: Vitals: Temp (24hrs), Av.5 ?C (97.7 ?F), Min:36.4 ?C (97.5 ?F), Max:36.7 ?C (98.1 ?F) BP 121/63 Pulse 67 Temp 36.4 ?C (97.5 ?F) (Oral) Resp 18 Ht 152.4 cm (5') Wt 60.2 kg (132 lb 11.5 oz) SpO2 94% BMI 25.92 kg/m? O2 Therapy: Room Air IANDO: Date 09/29/22 0700 - 09/30/22 0659 09/30/22 0700 - 10/01/22 0659 Shift 2506-2102 0589-1087 3767-0290 24 Hour Total 4961-0745 5797-7077 5537-3804 24 Hour Total INTAKE IV 100 1818 431 7294 Volume (mL) (meropenem 1 g in NaCl 0.9% 100 mL Vial-Bag (MERREM)) 100 100 Volume (mL) (lactated ringers iv infusion) 2125 867 3773 Shift Total 100 3794 677 1823 OUTPUT Urine 1405 224 3098 Output ( Indwelling Urinary Catheter Admission to Hospital Sheets) 8651 533 3140 Tubes 175 175 Output (GI Feed 09/29/22 Assessment Right Naris) 175 175 Ostomy 300 300 Output (mL) (Colostomy LLQ) 300 300 Shift Total 8849 522 0260 Weight (kg) 52.2 52.2 60.2 60.2 60.2 60.2 60.2 60.2 MEDICATIONS Current Facility-Administered Medications Medication Dose Route Frequency potassium chloride iv piggyback 20 mEq/100 mL 20 mEq INTRAVENOUS q 1 H sodium chloride 0.9 % (flush) 3-5 mL (BD POSIFLUSH) 3-5 mL INTRAVENOUS q 12 H NaCl 0.9% iv flush bag 20 mL INTRAVENOUS PRN lactated ringers iv infusion 100 mL/hr INTRAVENOUS CONTINUOUS acetaminophen 975 mg tab(s) (TYLENOL) 975 mg ORAL QID morphine 2 mg injection 2 mg INTRAVENOUS q 6 H PRN oxyCODONE IR 5 mg tab(s) (ROXICODONE) 5 mg ORAL q 3 H PRN ondansetron (PF) 4 mg injection (ZOFRAN) 4 mg INTRAVENOUS q 6 H PRN levothyroxine 50 mcg tab(s) (SYNTHROID) 50 mcg ORAL BEFORE BREAKFAST DAILY enoxaparin 30 mg injection (LOVENOX) 30 mg SUBCUTANEOUS DAILY meropenem 1 g in NaCl 0.9% 100 mL Vial-Bag (MERREM) 1 g INTRAVENOUS q 12 H lidocaine (PF) 10 mg/mL (1 %) 10-100 mg injection (XYLOCAINE) 1-10 mL INTRADERMAL DIRECTED PRN sodium chloride 0.9 % (flush) 10 mL (BD POSIFLUSH) 10 mL INTRAVENOUS q 12 H sodium chloride 0.9 % (flush) 20 mL (BD POSIFLUSH) 20 mL INTRAVENOUS PRN pantoprazole 40 mg injection (PROTONIX) 40 mg INTRAVENOUS BID AC (0600/1600) sodium bicarbonate 650 mg 650 mg ORAL TID LORazepam 0.5 mg tab(s) (ATIVAN) 0.5 mg ORAL BID PRN buPROPion XL 150 mg tab(s) (WELLBUTRIN XL) 150 mg ORAL DAILY Labs: Recent Labs 09/30/22 0417 09/29/22 1045 NA 144 142 K 3.5* 3.8 CHLOR 111* 110* CO2 17* 16* BUN 16 17 CREAT 1.29* 1.43* GLUC 66* 72* ANION 16 16 CA 8.2* 8.4* ALB -- 3.1* AST -- 14 ALT -- 8 ALKPHOS -- 95 TBILI -- 0.4 WBC 15.51* 22.89* HB 9.8* 11.7 HCT 31.1* 37.5 PLT 131* 151 LACT -- 1.2 Physical Exam: GENERAL: No distress, Alert NEURO: AANDOx3, CN II-XII grossly intact HEENT: normocephalic, atraumatic LUNGS: Unlabored breathing, equal chest rise bilaterally CARDIAC: Regular rate, warm and well perfused distal extremities ABDOMEN: Soft, non-tender, non-distended EXTREMITIES: RODRIGUEZ, No deformities, No edema SKIN: Skin color, texture, turgor normal, No rashes or lesions ASSESSMENT AND PLAN: Assessment Active Hospital Problems Diagnosis Date Noted Pneumoperitoneum 09/29/2022 Pneumatosis intestinalis of large intestine 09/29/2022 Calculus of kidney 03/25/2010 Stage 3a chronic kidney disease (HCC) 09/21/2007 Overview Note: Dr. Faye 9-09: CKD stage III likely from chronic interstitial nephritis from NSAIDs Colostomy status (HCC) 05/08/2007 Diarrhea 11/22/2005 Overview Note: Radiation Enteritis Assessment: 77 year old female w/ PMH of anal CA s/p chemoradiation and loop colostomy creation (16 years ago), COPD, TIA, depression, HTN, HLD, CKD III, recent Crohns diagnosis (completed 10 day steroi (more content not included)... [facility] documented as of this encounter (statuses as of 10/06/2022) [facility]11-24-2022 History of Past illness Narrative* Problem Noted Date Resolved Date Pneumatosis intestinalis of large intestine 09/0710/05/2022 Chronic respiratory failure with hypoxia 019 09/23/2020 Chronic bronchitis, obstructive 11/30/2016 03/23/2021 Tobacco use disorder 10/12/2016 04/29/2019 Personal history of colon cancer 03/28/2013 04/29/2019 Right leg weakness 11/19/2012 03/21/2013 Radiculopathy, lumbar region 11/19/[address] scan, liver 01/04/2011 11/16/19 Calculus of kidney 03/25/2010 03/21/2013 Calculus of ureter 03/15/2010 03/21/2013 Retention of urine, unspecified 03/15/2010 11/16/2011 Tobacco use disorder 07/28/2008 04/12/2016 EMPHYSEMA LUNG 09/20/2006 11/16/2011 Diarrhea 11/22/2005 10/05/2022 Overview: Radiation Enteritis Loss of weight 11/22/2005 05/10/2007 Malignant neoplasm of rectum Overview: 7-15-02: 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 Other B-complex deficiencies 03/2007 documented as of this encounter (statuses as of 10/13/2022) [facility]11-24-2022 History of Past illness Narrative* Problem Noted Date Resolved Date Pneumatosis intestinalis of large intestine 09/0710/05/2022 Chronic respiratory failure with hypoxia 019 09/23/2020 Chronic bronchitis, obstructive 11/30/2016 03/23/2021 Tobacco use disorder 10/12/2016 04/29/2019 Personal history of colon cancer 03/28/2013 04/29/2019 Right leg weakness 11/19/2012 03/21/2013 Radiculopathy, lumbar region 11/19/[address] scan, liver 01/04/2011 11/16/19 12 Calculus of kidney 03/25/2010 03/21/2013 Calculus of ureter 03/15/2010 03/21/2013 Retention of urine, unspecified 03/15/2010 11/16/2011 Tobacco use disorder 07/28/2008 04/12/2016 EMPHYSEMA LUNG 09/20/2006 11/16/2011 Diarrhea 11/22/2005 10/05/2022 Overview: Radiation Enteritis Loss of weight 11/22/2005 05/10/2007 Malignant neoplasm of rectum Overview: 7-15-02: 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 Other B-complex deficiencies 03/2007 documented as of this encounter (statuses as of 10/14/2022) [facility]11-24-2022 History of Past illness Narrative* Problem Noted Date Resolved Date Pneumatosis intestinalis of large intestine 09/0710/05/2022 Chronic respiratory failure with hypoxia 019 09/23/2020 Chronic bronchitis, obstructive 11/30/2016 03/23/2021 Tobacco use disorder 10/12/2016 04/29/2019 Personal history of colon cancer 03/28/2013 04/29/2019 Right leg weakness 11/19/2012 03/21/2013 Radiculopathy, lumbar region 11/19/[address] scan, liver 01/04/2011 11/16/19 12 Calculus of kidney 03/25/2010 03/21/2013 Calculus of ureter 03/15/2010 03/21/2013 Retention of urine, unspecified 03/15/2010 11/16/2011 Tobacco use disorder 07/28/2008 04/12/2016 EMPHYSEMA LUNG 09/20/2006 11/16/2011 Diarrhea 11/22/2005 10/05/2022 Overview: Radiation Enteritis Loss of weight 11/22/2005 05/10/2007 Malignant neoplasm of rectum Overview: 05-20-02: 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 Other B-complex deficiencies 03/2007 documented as of this encounter (statuses as of 10/28/2022) [facility]08-02-2022 NotePatient Outreach (NETNAV) JOSE DE JESUS GOLD ([id number]) 1945 F Date Time Provider Department 06/07/22 ALISIA GUIDRY During your visit today, we recorded the following information about you: Alisia Guidry 06/07/2022 9:01 AM Signed POPULATION HEALTH NAVIGATION OUTREACH Action/ 1st attempt: Left message for patient including my direct number 2nd attempt: My Chart message sent [facility] GAPS Z93.3 - Colostomy status (HCC) - [id number] Last Billed 08/26/2020 Care Gaps Follow-up appointment Pt identified by name and : NO Outreach Outcome/Action Unable to reach patient: Left message MyChart message sent Did you use a PCP flex slot to schedule this appointment? N/A Reason for Outreach HCC or suspected condition Payer: Payor: MEDICARE / Plan: MEDICARE A AND B / Product Type: Medicare / Care Gap Reviewed:: Follow-up appointment Reminder: Reminder note to check Health Maintenance for items below Health Maintenance items due: SHINGRIX VACCINE(1 of 2) Never done ADVANCE DIRECTIVE DISCUSSION Never done COVID-19 VACCINE(4 - Booster for Pfizer series) due on 01/03/2022 Message Sent to Practice: No Navigation Signature: Alisia Guidry June 07, 2022 9:01 AM Allergies As of Date: 06/07/2022 Noted Allergy Reaction [id number] REDUCTASE INHIBIT*10/25/2018 17 - Myalgia CIPROFLOXACIN 08/21/2003 CODEINE 11/14/2005 Mag.citrate [Other] 08/21/2003 NSAIDS (NON-STEROIDAL ANTI-INFLAM*05/15/2015 14 - Other: See Comments PENICILLINS Date Reviewed: 07/23/2021 Reviewed by: Do Wilkins LPN - Fully Assessed Reason for Visit: Population Health Navigation Outreach [3910] Cmt: HCC Gaps Prescriptions as of 06/13/2022 - midodrine (PROAMATINE) 2.5 mg tablet Take 1 tablet by mouth twice daily as needed. - levothyroxine (SYNTHROID) 100 mcg tablet Take 1 tablet by mouth once daily. Take on empty stomach - buPROPion XL (WELLBUTRIN XL) 150 mg 24 hr tablet Take 1 tablet by mouth once daily. - citalopram (CELEXA) 40 mg tablet Take 1 tablet by mouth once daily. - COMPOUNDED PRESCRIPTION Alcohol skin barrier wipes. Directions: use as directed at colostomy site DX: Z93.3 - COMPOUNDED PRESCRIPTION Colostomy Supplies: Ultra light 7/8 1 piece drain able. Convex with skin shield Directions: Use as directed at colostomy site. DX: Z93.3 - acetaminophen(TYLENOL EXTRA STRENGTH 500 MG TAB) Take two(2) tablets every six(6) hours as needed for pain. Problem List As Of Date 06/07/2022 Noted Resolved Malignant neoplasm of rectum [C20] 03/27/2014 B-COMPLEX DEFIC NEC [E53.8] 05/10/2007 Diarrhea [R19.7] 11/22/2005 LOSS OF WEIGHT [R63.4] 11/22/2005 05/10/2007 Depressive disorder [F32.A] 09/20/2006 EMPHYSEMA LUNG [J43.8] 09/20/2006 11/16/2011 Colostomy status [Z93.3] 05/08/2007 Other vitamin B12 deficiency anemia [D51.8] 05/10/2007 Hyperlipidemia [E78.5] 05/10/2007 Osteoporosis [M81.0] 06/08/2007 Ostium secundum type atrial septal defect [Q21.*06/08/2007 Stage 3a chronic kidney disease (HCC) [N18.31] 09/21/2007 Vitamin D deficiency [E55.9] 04/29/2008 Tobacco use disorder [F17.200] 07/28/2008 04/12/2016 Calculus of ureter [N20.1] 03/15/2010 03/21/2013 Retention of urine, unspecified [R33.9] 03/15/2010 11/16/2011 Calculus of kidney [N20.0] 03/25/2010 03/21/[address] scan, liver [R93.2] 01/04/2011 11/16/2011 Right leg weakness [R29.898] 11/19/2012 03/21/2013 Radiculopathy, lumbar region [M54.16] 11/19/2012 03/21/2013 Hypothyroid [E03.9] 11/29/2012 Femoral neuropathy of right lower extremity [G5*01/18/2013 Personal history of colon cancer [Z85.038] 03/28/2013 04/29/2019 Tobacco use disorder [F17.200] 10/12/2016 04/29/2019 Chronic bronchitis, obstructive (HCC) [J44.9] 11/30/2016 03/23/2021 Calculus of kidney [N20.0] 03/25/2010 Chronic respiratory failure with hypoxia (HCC) *05/24/2019 09/23/2020 History of lung cancer [Z85.118] 05/21/2020 Encounter Status:Closed by ALISIA GUIDRY on 06/07/22[facility] 06-07-2022 NoteHNO ID: [id number] Author: Alisia Guidry Service: ? Author Type: ? Type: Progress Notes Filed: 06/07/2022 9:01 AM Note Text: POPULATION HEALTH NAVIGATION OUTREACH Action/ 1st attempt: Left message for patient including my direct number 2nd attempt: My Chart message sent HCC GAPS Z93.3 - Colostomy status (HCC) - [id number] Last Billed 08/26/2020 Care Gaps Follow-up appointment Pt identified by name and : NO Outreach Outcome/Action Unable to reach patient: Left message MyChart message sent Did you use a PCP flex slot to schedule this appointment? N/A Reason for Outreach HCC or suspected condition Payer: Payor: MEDICARE / Plan: MEDICARE A AND B / Product Type: Medicare / Care Gap Reviewed:: Follow-up appointment Reminder: Reminder note to check Health Maintenance for items below Health Maintenance items due: SHINGRIX VACCINE(1 of 2) Never done ADVANCE DIRECTIVE DISCUSSION Never done COVID-19 VACCINE(4 - Booster for Pfizer series) due on 01/03/2022 Message Sent to Practice: No Navigation Signature: Alisia Guidry June 07, 2022 9:01 [facility]08-02-2022 History of Present illness Narrative* Alisia Guidry - 06/07/2022 8:57 AM EDT POPULATION HEALTH NAVIGATION OUTREACH Action/ 1st attempt: Left message for patient including my direct number 2nd attempt: My Chart message sent HCC GAPS Z93.3 - Colostomy status (HCC) - [id number] Last Billed 08/26/2020 Care Gaps Follow-up appointment Pt identified by name and : NO Outreach Outcome/Action Unable to reach patient: Left message MyChart message sent Did you use a PCP flex slot to schedule this appointment? N/A Reason for Outreach HCC or suspected condition Payer: Payor: MEDICARE / Plan: MEDICARE A AND B / Product Type: Medicare / Care Gap Reviewed:: Follow-up appointment Reminder: Reminder note to check Health Maintenance for items below Health Maintenance items due: SHINGRIX VACCINE(1 of 2) Never done ADVANCE DIRECTIVE DISCUSSION Never done COVID-19 VACCINE(4 - Booster for Pfizer series) due on 01/03/2022 Message Sent to Practice: No Navigation Signature: Alisia Guidry June 07, 2022 9:01 AM [facility] History of Past illness Narrative* Problem Noted Date Resolved Date Chronic respiratory failure with hypoxia 019 09/23/2020 Chronic bronchitis, obstructive 11/30/2016 03/23/2021 Tobacco use disorder 10/12/2016 04/29/2019 Personal history of colon cancer 03/28/2013 04/29/2019 Right leg weakness 11/19/2012 03/21/2013 Radiculopathy, lumbar region 11/19/[address] scan, liver 01/04/2011 11/16/19 Calculus of kidney 03/25/2010 03/21/2013 Calculus of ureter 03/15/2010 03/21/2013 Retention of urine, unspecified 03/15/2010 11/16/2011 Tobacco use disorder 07/28/2008 04/12/2016 EMPHYSEMA LUNG 09/20/2006 11/16/2011 Loss of weight 11/22/2005 05/10/2007 Malignant neoplasm of rectum Overview: 7-15-02: 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 Other B-complex deficiencies 03/2007 documented as of this encounter (statuses as of 06/07/2022) [facility] Summary Purpose Family History No Family History Records FoundNo Family History Records FoundNo Family History Records Found Advance Directives No Advanced Directives Records FoundNo Advanced Directives Records FoundNo Advanced Directives Records Found Health Concerns Infection Onset Date Last Indicated Resolved Time COVID-19 Rule-Out 10/05/2022 10/05/2022 10/05/2022 3:40 PM EST Additional Source Comments INFORMATION SOURCE (unrecogn ized section and content) DATE CREATED AUTHOR AUTHOR'S ORGANIZ ATION 10/30/2022 [facility] DATE CREATED AUTHOR AUTHOR'S ORGANIZ ATION 08/13/2023 [facility] Source Comments (unrecognize d section and content) In the event this informatio n is protected by the Federal Confidentiality of Alcohol and Drug Abuse Patient Records regulations: The Federal rules restrict any use of the information to criminally investigate or prosecute any alcohol or drug abuse patient.[facility] the event this information is protected by the Federal Confidentiality of Alcohol and Drug Abuse Patient Records regulations: The Federal rules restrict any use of the information to criminally investigate or prosecute any alcohol or drug abuse patient.[facility] the event this information is protected by the Federal Confidentiality of Alcohol and Drug Abuse Patient Records regulations: The Federal rules restrict any use of the information to criminally investigate or prosecute any alcohol or drug abuse patient.[facility] the event this information is protected by the Federal Confidentiality of Alcohol and Drug Abuse Patient Records regulations: The Federal rules restrict any use of the information to criminally investigate or prosecute any alcohol or drug abuse patient.[facility] the event this information is protected by the Federal Confidentiality of Alcohol and Drug Abuse Patient Records regulations: The Federal rules restrict any use of the information to criminally investigate or prosecute any alcohol or drug abuse patient.[facility] Reason for Visit (unrecogniz ed section and content) Reason Comments Results Reason Comments CoPat Stop Reason Onset Date Comments Community Monitoring Outreach 10/27/2022 En rollment Care Teams (unrecognized sec tion and content) [employer] Relationship Specialty Start Date End Date Elliot Kang Chi [address] [place] [address] PCP - General Gerontology 09/30/22 Trav Herron MD [address] [place] [address] Consulting General Surgery 02/09/15 Glen Gonzalez MD [address] [place] [address] 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 10/01/18 [employer] Relationship Specialty Start Date End Date Elliot Kang Chi [address] [place] [address] PCP - General Gerontology 09/30/22 Trav Herron MD [address] [place] [address] Consulting General Surgery 02/09/15 Glen Gonzalez MD [address] [place] [address] 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 10/01/18 [employer] Relationship Specialty Start Date End Date Elliot Kang Chi [address] [place] [address] PCP - General Gerontology 09/30/22 Trav Herron MD [address] [place] [address] Consulting General Surgery 02/09/15 Glen Gonzalez MD [address] [place] [address] 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 This clinical summary was aggregated from multiple sources. Caution should be exercised in using it in the provision of clinical care. This summary normalizes information from multiple sources, and as a consequence, information in this document may materially change the coding, format and clinical context of patient data. In addition, data may be omitted in some cases. CLINICAL DECISIONS SHOULD BE BASED ON THE PRIMARY CLINICAL RECORDS. [facility] [employer] [facility]. provides no warranty or guarantee of the accuracy or completeness of information in this document.
[2023-12-16 17:16] LABS: Absolute Lymphocyte Count 1.69 X10^3/uL (0.83-4.51); Absolute Neutrophil Count 9.6 X10^3/uL (2.0-7.7); Basophil# 0.02 X10^3/uL; Basophil% 0.2 % (0-1); Eosinophil# 0.22 X10^3/uL; Eosinophils% 1.7 % (0-5); Hematocrit 39.3 % (37-47); Hemoglobin 12.4 g/dL (12.0-15.0); Lymphocyte # 1.69 X10^3/ul (0.83-4.51); Lymphocyte % 13.3 % (19-41); Mean Corp Hgb Conc 31.6 g/dL (32-36); Mean Corpuscular Hgb 28.8 pg (27.0-32.0); Mean Corpuscular Volume 91.4 fL (81-99); Mean Platelet Vol. 9.4 fl (6.2-12.0); Monocyte# 1.08 X10^3/uL; Monocyte% 8.5 % (0-10); NRBC Flagged by Analyzer 0 % (0-5); Neutrophil # 9.59 X10^3/uL (2.7-7.7); Neutrophil % 75.8 % (47-70); Platelet Count 178 K/mm3 (150-450); RBC Distribution Width CV 12.9 % (11.6-14.6); White Blood Count 12.7 K/mm3 (4.4-11.0)
[2023-12-16 17:35] VITALS: RESP 16
[2023-12-16 17:35] LABS: Anion Gap 4 (5-15); BUN 15 mg/dL (7-18); BUN/Creat Ratio 11.9 RATIO (10-20); Calcium,Total 9.3 mg/dL (8.5-10.1); Chloride 110 mmol/L (98-107); Creatinine, Serum 1.26 mg/dL (0.55-1.02); EST Glomerular Filtration Rate 44 mL/min (>60); Est Glom Filt Rate - Afr Amer 53 mL/min (>60); Glucose 100 mg/dL (74-106); Potassium 3.7 mmol/L (3.5-5.1); Sodium Level 137 mmol/L (136-145)
== END 2023-12-16 18:19 | disposition home or self-care (01) ==
PROVIDERS: Nurse Practitioner; Emergency Provider Student in an Organized Health Care Education/Training Program; PCP Family Medicine Geriatric Medicine; Visit Provider Student in an Organized Health Care Education/Training Program
DX: N39.0 Urinary tract infection, site not specified (principal); J44.9 Chronic obstructive pulmonary disease, unspecified; N18.32 Chronic kidney disease, stage 3b; R14.0 Abdominal distension (gaseous); B96.5 Pseudomonas (aeruginosa) (mallei) (pseudomallei) as the cause of diseases classified elsewhere; Z79.899 Other long term (current) drug therapy; Z87.891 Personal history of nicotine dependence; Z86.73 Personal history of transient ischemic attack (TIA), and cerebral infarction without residual deficits
CPT/HCPCS: 80048; 85025; 99282

== ENCOUNTER → 2023-12-25 | Outpatient (CLI) | payer MEDICARE, OTHER, SELFPAY ==
--- NOTE | 2023-12-25 16:45 | US_ITS ---
EXAM: US RETROPERITONEAL LIMITED, RENAL CLINICAL INDICATION: hydronephrosis TECHNIQUE: Limited grayscale and color Doppler sonographic evaluation of the retroperitoneum was performed. COMPARISON: Nonenhanced abdomen and pelvis CT of 12/14/2023. Renal ultrasound of 03/20/2023. FINDINGS: RIGHT KIDNEY: Right kidney measures 8.7 x 3.5 x 4.7 cm in diameter as compared with 8.3 x 4.5 x 5.1 cm on prior ultrasound. Right renal cortex measures 1.1 cm in thickness, with normal cortical echogenicity. Multiple simple right renal cysts are present, measuring up to 9 mm in diameter. Multiple nonobstructing right renal calculi present, measuring up to 6 mm in diameter. No hydronephrosis. 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 No perinephric fluid collection on the right. LEFT KIDNEY: Left kidney measures 8.1 x approximately 4.3 x 4.4 cm in diameter as compared with 8.8 x 5.2 x 4 cm on the prior study. Left renal cortex measures 1.2 cm in thickness, with normal cortical echogenicity. Simple left renal cysts are present, measuring up to 10 mm in diameter. Scattered nonobstructing renal calculi are present, measuring up to 8 mm in diameter. No hydronephrosis. No perinephric collection is demonstrated. URINARY BLADDER: Decompressed about a Gallagher catheter. US/Kidney and Bladder IMPRESSION: Nonobstructing renal calculi are present bilaterally, as noted on the prior CT. Interval resolution of the bilateral hydronephrosis noted on the prior CT; no hydronephrosis is demonstrated on the current exam. Electronically Signed: Ilya Pérez MD at 6:52 EST ,
--- OUTSIDE RECORDS SUMMARY | 2023-12-25 19:04 | XMS RPT_ITS | CCD ---
Author Name Unknown Address [address] [place] [address] Organization [facility] Care Team Providers Care Manufacturing Engineering Technician Name Role Phone CRISTIN CHEEMA Referring Unavailable CRISTIN CHEEMA Attending Unavailable ADIS TAPIA Primary Care Unavailable ADIS TAPIA Primary Care Unavailable ADIS TAPIA Referring Unavailable ADIS TAPIA Attending Unavailable Adis Tapia MD Primary Care Provider Trav Herron MD Unavailable [phone] Lisa TERRAZAS, Glen Unavailable Trav Herron MD Unavailable Lisa TERRAZAS, Glen Unavailable Elliot Kang Chi Primary Care Provider ROBERTH ESPINO Consulting Unavailable GADIEL TAVAREZ Referring Unavailable AMAURY NICHOLSON Admitting Unavailable DA TRUJILLO Attending Unavailable ADIS TAPIA Primary Care Unavailable Allergies Allergy Classification Reported Allergen(s) Allergy Type Date of Onset Reaction(s) Facility (6 sources) Ciprofloxacin; Translations: [CIPROFLOXACIN] Drug Allergy 3 Rash [facility] (6 sources) Codeine; Translations: [CODEINE] Drug Allergy 6 [facility] (6 sources) HMG-CoA reductase inhibitor; Translations: [XFKFEQQ-RRE-SV A REDUCTASE INHIBITORS] Drug Intolerance 8 Myalgia [facility] Work Phone: (6 sources) Non-steroidal anti-inflammato ry agent; Translations: [NSAIDS (NON-STEROIDAL ANTI-INFLAMMATO RY DRUG)] Propensity to adverse reactions to drug 5 Other: See Comments [facility] (6 sources) Penicillins; Translations: [PENICILLINS] Propensity to adverse reactions Hives [facility] (5 sources) Mag.citrate [Other] Propensity to adverse reactions 3 [facility] (1 source) OTHER; Translations: [OTHER] Propensity to adverse reactions (disorder) 3 [facility] Other [facility] Medications Current Medications Medication Drug Class(es) [...] 10-27-2022 ambulatory Avery miller RN Work Phone: Vice President Diversity Management Procedures Date Procedure Procedure Detail Performing Clinician Start: 10-13-2022 CBCDIF (EXTERNAL) Roberth Espino MD Work Phone: Start: 10-13-2022 Creatinine [Mass/vol ume] in Serum or Plasma Roberth Espino MD Work Phone: Start: 05-08-2007 H/O: colostomy Colostomy status Alisia Guidry Plan of Treatment Date Care Activity Detail Author Start: 10-04-2025 DIABETES SCREEN DIABETES SCREEN [facility] Start: 07-23-2024 DIABETES SCREEN DIABETES SCREEN [facility] Start: 03-28-2024 Urine microalbumin profile DTAP,TDAP ,TD (1 - Tdap) [facility] Immunizations Immunization Date Immunization Notes Care Provider Fa maxim 02-02-2021 COVID-19 vaccine, ag e 12+ yr (PFIZER-BIONTECH - PURPLE TOP) [facility] Work Phone: 01-11-2021 COVID-19 vaccine, ag e 12+ yr (PFIZER-BIONTECH - PURPLE TOP) [facility] Work Phone: 08-26-2020 influenza, high-dose , quadrivalent vaccine (FLUZONE HIGH DOSE QUADRIVALENT) [facility] Work Phone: 08-06-2019 influenza, high dose seasonal, preservative-free [facility] Work Phone: 07-24-2018 influenza, high dose seasonal, preservative-free [facility] Work Phone: 10-23-2017 influenza, high dose seasonal, preservative-free [facility] 10-12-2016 influenza, high dose seasonal, preservative-free [facility] 10-12-2015 influenza, high dose seasonal, preservative-free [facility] 04-02-2015 pneumococcal polysaccharide vaccine, 23 valent [facility] 09-30-2014 influenza, seasonal, injectable [facility] 09-30-2014 pneumococcal conjuga te vaccine, 13 valent [facility] 03-27-2014 tetanus and diphther ia toxoids, adsorbed, preservative free, for adult use (5 Lf of tetanus toxoid and 2 Lf of diphtheria toxoid) [facility] 09-23-2013 influenza virus vacc ine, unspecified formulation [facility] 11-19-2012 influenza virus vacc ine, unspecified formulation [facility] Work Phone: 11-25-2010 influenza virus vacc ine, unspecified formulation [facility] Work Phone: 2009 influenza virus vacc ine, unspecified formulation [facility] Work Phone: 09-18-2008 influenza virus vacc ine, unspecified formulation [facility] 09-11-2007 influenza virus vacc ine, unspecified formulation [facility] 09-07-2006 influenza virus vacc ine, unspecified formulation [facility] 09-06-2004 pneumococcal polysaccharide vaccine, 23 valent [facility] Work Phone: 06-06-2003 tetanus and diphther ia toxoids, adsorbed, preservative free, for adult use (2 Lf of tetanus toxoid and 2 Lf of diphtheria toxoid) [facility] Work Phone: Payers Date Payer Category Payer Medicare [id number] 2016 Medicare MEDICARE MEDICAR E A AND B [id number] 2016-Present [phone] [place] [address] Medicare [id number] 2016 Medicare MEDICARE MEDICAR E A AND B [id number] 2016-Present [phone] [place] [address] Medicare [id number] 2016 Unknown [id number] 2016 Unknown [employer] [place] [employer] [place] MEDIC[place] SUPPLEMENT [id number] 2016-Present [phone] [place] [address] Indemnity [id number] 2016 Unknown [employer] [place] [employer] [place] MEDICARE SUPPLEMENT [id number] 2016-Present [phone] [place] [address] Indemnity [id number] 1945 Unknown [id number] 1945 Unknown [id number] Social History Date Type Detail Facility Start: 04-24-2018 Tobacco smoking stat us NHIS Ex-smoker [facility] Work Phone: End: 02-03-2018 History of tobacco use Current smoker [facility] Work Phone: End: 02-03-2018 History of tobacco use Cigarette Smoker [facility] Work Phone: Start: 04-24-2018 Cigarettes smoked current (pack per day) - Reported 1 [facility] Start: 04-24-2018 Tobacco use and exposure Smokeless tobacco non-user [facility] Work Phone: Start: 10-11-2021 End: 06-22-2022 Alcohol intake Current drinker of alcohol (finding) [facility] Start: 11-03-2020 End: 09-30-2022 History SDOH Housing Unable to Pay 2 [facility] Start: 11-03-2020 End: 09-30-2022 History SDOH Housing Places Lived 1 [facility] Start: 04-24-2018 Tobacco Comment Quit January 2018 [facility] Start: 1945 Sex Assigned At Not on file [facility] Start: 09-30-2022 History SDOH Financial 4 [facility] Start: 09-21-2022 End: 10-01-2022 Exposure to SARS-CoV-2 (event) Not sure [facility] Medical Equipment Procedure Code Equipment Code [...] Note Facility 10-27-2022 Note Patient Outreach ([facility] JOSE DE JESUS GOLD ([id number]) 1945 F Date Time Provider Department 10/27/22 AVERY STOVALL During your visit today, we recorded the following information about you: Avery Stovall RN 10/27/2022 9:16 AM Signed [facility] Enrollment Provider Action/FYI: Non [facility] PCP Patient referred by: [facility] Kavon Contact made with patient: Patient not outreached at this time. Closing: Patient does not meet criteria. PCC to reassess patient in a month. END OUTREACH Allergies As of Date: 10/27/2022 Noted Allergy Reaction [id number] REDUCTASE INHIBIT*10/25/2018 17 - Myalgia CIPROFLOXACIN 08/21/2003 [...] Encounter Status:Closed by AVERY STOVALL on 10/27/22 [facility] 10-27-2022 Note HNO ID: [id number] Author: Avery Stovall RN Service: ? Author Type: Registered Nurse Type: Progress Notes Filed: 10/27/2022 9:16 AM Note Text: [facility] Enrollment Provider Action/FYI: Non [facility] PCP Patient referred by: [facility] Kavon Contact made with patient: Patient not outreached at this time. Closing: Patient does not meet criteria. PCC to reassess patient in a month. END OUTREACH [facility] 10-27-2022 History of Presen t illness Narrative [facility] CD Enrollment Provider Action/FYI: Non [facility] PCP Patient referred by: [facility] Kavon Contact made with patient: Patient not outreached at this time. Closing: Patient does not meet criteria. PCC to reassess patient in a month. END OUTREACH documented in this encounter [facility] 10-14-2022 Miscellaneous Notes [phone] to return call. Soraya Feng RN Can you please check with them and see when are they planning for ureteral stent removal? Ideally the antibiotic should go until the stent is removed. Thanks Roberth Espino MD Copat stop date 10-17-22. Can stop date be honored and PICC be removed after last dose of cefepime? Soraya Feng RN documented in this encounter [facility] 10-13-2022 Miscellaneous Notes External copat labs entered. Soraya Feng RN documented in this encounter [facility] 10-05-2022 Note HNO ID: [id number] Author: Lea Cheema RN Service: ? Author Type: Registered Nurse Type: Nursing Progress Note Filed: 10/05/2022 3:47 PM Note Text: Other: report called to [facility]. Daughter to transport patient. [facility] 10-05-2022 Note HNO ID: [id number] Author: Francy Pierre RN Service: Care Management Author Type: Registered Nurse Type: Care Mgt Progress Note Filed: 10/05/2022 3:53 PM Note Text: CARE MANAGEMENT DISCHARGE NOTE SERVICE DATE: 10/05/2022 SERVICE TIME: 3:39 PM LOS: 6 days Admission Date: 09/29/2022 DISCHARGE ARRANGEMENT (list agency and phone number) Discharge Arrangement: Half-Way Facility Was an expedited discharge program used?: No Provider Name: [facility] CAREGIVER ASSESSMENT: Caregiver is ready, willing and able to meet the patient's needs as recommended by the inter-professional team:: Yes Patient's transition needs and plan for meeting these needs: SNF HANDOFF COMMUNICATION: Handoff to: Other Caregiver Other Caregiver Name/Phone: [facility]/ Bedside RN TRANSPORTATION ARRANGEMENTS: Transportation Arrangements: Car Needs Prior to Discharge: Ready for Discharge Discharge today. Discharge orders complete. [facility] is able to accept patient. No insurance authorization needed. Family will transport around 1700. [facility] Unit notified. Bedside RN notified. SIGNATURE: Francy Pierre RN PATIENT NAME: Jose De Jesus Gold DATE: October 05, 2022 TIME: 3:39 PM PAGER/CONTACT #: [phone] [facility] 10-05-2022 Note HNO ID: [id number] Author: Francy Pierre RN Service: Care Management [...] 05, 2022 TIME: 11:31 AM PAGER/CONTACT #: [phone] [facility] 10-05-2022 Note HNO ID: [id number] Author: Francy Pierre RN Service: Care Management [...] plan is for SNF placement at discharge. [facility] is able to accept patient once medically stable. No insurance authorization needed. Anticipated DC Date: In the next 24- 48 hours. DC Transportation: If able to safely do so, patient's family will provide transportation at discharge. SIGNATURE: Francy Pierre RN PATIENT NAME: Jose De Jesus Gold DATE: October 05, 2022 TIME: 9:06 AM PAGER/CONTACT #: [phone] [facility] 10-05-2022 Note HNO ID: [id number] Author: Anita Burgos APRN.IRON INSTALLER Service: General Surgery Author Type: Nurse Specialist [...] 0659 10/05/22 0700 - 10/06/22 0659 Shift 9939-2476 8444-5264 2646-6588 24 Hour Total 6383-8056 7946-4530 3200-5372 24 Hour Total INTAKE PO 360 480 840 460 460 PO 360 480 840 460 460 Shift Total 360 480 840 460 460 OUTPUT Urine 1200 925 884 8777 300 300 Void (ml) 800 896 396 1674 300 300 Output ([REMOVED] Indwelling Urinary Catheter Admission to [facility] 10/04/22 1040) 400 400 Ostomy 339 821 4012 250 250 Output (mL) (Colostomy LLQ) 885 546 3771 250 250 Shift Total 2100 6925 508 5174 550 550 Weight (kg) 54.4 54.4 52.1 [...] g INTRAVENOUS q 12 H phenol 1 Douglass (CHLORASEPTIC) 1 Douglass MUCOUS MEMBRANE (TOPICAL MOUTH AND THROAT) q [...] intestinalis and pne (more content not included)... [facility] 10-04-2022 Note HNO ID: [id number] Author: Francy Pierre RN Service: Care Management Author Type: Registered Nurse Type: Care Mgt Progress Note Filed: 10/04/2022 2:50 PM Note Text: CARE MANAGEMENT PROGRESS NOTE SERVICE DATE: 10/04/2022 SERVICE TIME: 2:49 PM LOS: 5 days Care Coordination Summary: Due to patient's medical complexity and need for IV antibiotics, plan is for SNF placement at discharge. [facility] is able to accept patient once medically stable. No insurance authorization needed. SIGNATURE: Francy Pierre RN PATIENT NAME: Jose De Jesus Gold DATE: October 04, 2022 TIME: 2:48 PM PAGER/CONTACT #: [phone] [facility] 10-04-2022 Note HNO ID: [id number] Author: Bismark Brand MD Service: General Surgery Author Type: Resident Type: Progress Notes Filed: 08/10/2023 4:07 PM Note Text: Emergency General Surgery Progress Note SERVICE DATE: October 04, 2022 Emergency General Surgery Service Pager: For questions or concerns Mon-Fri 6a-5p please page [phone]. After 5pm and on Weekends and Holidays, please page [phone] if in ICU or [phone] if on RNF. SUBJECTIVE: NAEON. VSS. No [...] 0659 10/04/22 07 - 10/05/22 0659 Shift 9196-3825 6576-3912 9928-6396 24 Hour Total 0493-3139 6613-8979 1790-3185 24 Hour Total INTAKE PO 240 360 600 PO 240 360 600 TPN/PPN 910 910 Volume (mL) (Parenteral Nutrition - Adult) 910 910 Shift Total 240 248 059 1530 OUTPUT Urine 882 852 3189 2300 800 800 Void (ml) 400 400 Output ([REMOVED] Indwelling Urinary Catheter Admission to [facility] 10/04/22 1040) 821 794 9708 2300 400 400 Ostomy 550 0 550 Output (mL) (Colostomy LLQ) 550 0 550 Shift Total 6701 486 4871 2850 800 800 Weight (kg) 59.6 59.6 54.4 54.4 54.4 54.4 54.4 54.4 MEDICATIONS Current Facility-Administered Medications Medication Dose Route Frequency Parenteral Nutrition - Adult INTRAVENOUS ONCE PN (1800 START) Parenteral Nutrition - Adult INTRAVENOUS ONCE PN (1800 START) cefepime 1 g in D5W 100 mL Vial-Bag (MAXIPIME) 1 g INTRAVENOUS q 12 H phenol 1 Douglass (CHLORASEPTIC) 1 Douglass MUCOUS MEMBRANE (TOPICAL MOUTH AND THROAT) q [...] 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 [facility] 10-04-2022 Note HNO ID: [id number] Author: Francy Pierre RN Service: Care Management [...] placement at discharge. Patient's SNF choice is [facility] due to past experience. [facility] notified. Awaiting acceptance. Anticipated DC Date: To be determined. DC Transportation: If able to safely do so, patient's family will provide transportation at discharge. SIGNATURE: Francy Pierre RN PATIENT NAME: Jose De Jesus Gold DATE: October 04, 2022 TIME: 11:38 AM PAGER/CONTACT #: [phone] [facility] 10-03-2022 Note HNO ID: [id number] Author: India Millan MD Service: Urology Author [...] questions/concerns and otherwise page the urology resident credit and collections representative if needed India Millan MD Urology PGY-1 October 03, 2022 5:47 PM Active void trial instructions - Please instill 200cc of normal saline through the sheets into the bladder, then immediately remove sheets. Have patient void and measure voided volume. Immediately after voiding, obtain post void residual volume on bladder scan. Text page resident both the voided volume and the PVR volume. [facility] 10-03-2022 Note HNO ID: [id number] Author: Francy Pierre RN Service: Care Management [...] prior to admission. Patient recently discharged from [facility]. Patient resides in [...] care and receives her ostomy supplies from [employer]. At this time, plan is for patient to return home once medically stable. Will continue to follow clinical course for transitional/discharge planning needs. Anticipated DC Date: To be determined. DC Transportation: If able to safely do so, patient's family will provide transportation at discharge. SIGNATURE: Francy Pierre RN PATIENT NAME: Jose De Jesus Gold DATE: October 03, 2022 TIME: 1:29 PM PAGER/CONTACT #: [phone] [facility] 10-03-2022 Note HNO ID: [id number] Author: Francy Pierre RN Service: Care Management [...] 03, 2022 TIME: 12:37 PM PAGER/CONTACT #: [phone] [facility] 10-03-2022 Note HNO ID: [id number] Author: Bismark Brand MD Service: General Surgery [...] questions or concerns Mon-Fri 6a-5p please page [phone]. After 5pm and on Weekends and Holidays, please page [phone] if in ICU or [phone] if on RNF. SUBJECTIVE: NAEON. VSS. No [...] 0659 10/03/22 0700 - 10/04/22 0659 Shift 9732-3720 1170-8584 7853-7670 24 Hour Total 8223-3047 2229-9572 6903-1185 24 Hour Total INTAKE Shift Total OUTPUT Urine 7513 680 3924 3525 Output ( Indwelling Urinary Catheter Admission to Hospital Sheets) 6650 419 6321 3525 Ostomy 10 200 210 Output (mL) (Colostomy LLQ) 10 200 210 Shift Total 2257 144 7078 3735 Weight (kg) 58.2 58.2 59.6 59.6 59.6 59.6 59.6 59.6 MEDICATIONS Current Facility-Administered Medications Medication Dose Route Frequency Parenteral Nutrition - Adult INTRAVENOUS ONCE PN (1800 START) phenol 1 Douglass (CHLORASEPTIC) 1 Douglass MUCOUS MEMBRANE (TOPICAL MOUTH AND THROAT) q [...] 05/08/2007 Diarrhea 11/22/2005 (more content not included)... [facility] 10-02-2022 Note HNO ID: [id number] Author: Maya Mock MD Service: General Surgery [...] questions or concerns Mon-Fri 6a-5p please page [phone]. After 5pm and on Weekends and Holidays, please page [phone] if in ICU or [phone] if on RNF. SUBJECTIVE: Doing well this [...] 0659 10/02/22 07 - 10/03/22 0659 Shift 5748-3616 1749-1255 9888-9439 24 Hour Total 4854-0389 7495-4842 5203-1482 24 Hour Total INTAKE IV 150 150 Volume (mL) (meropenem 1 g in NaCl 0.9% 100 mL Vial-Bag (MERREM)) 100 100 Volume (mL) (magnesium sulfate iv piggyback in sterile water 2 g 50 mL) 50 50 Shift Total 150 150 OUTPUT Urine 1175 1725 1300 4200 450 450 Output ( Indwelling Urinary Catheter Admission to [facility]) 1175 1725 1300 4200 450 450 Tubes 0 0 Output (GI Feed 09/29/22 Assessment Right Naris) 0 0 Ostomy 250 250 Output (mL) (Colostomy LLQ) 250 250 Shift Total 1175 1725 1550 4450 450 450 Weight (kg) 60.2 60.2 58.2 58.2 58.2 58.2 58.2 58.2 MEDICATIONS Current Facility-Administered Medications Medication Dose Route Frequency phenol 1 Douglass (CHLORASEPTIC) 1 Douglass MUCOUS MEMBRANE (TOPICAL MOUTH AND THROAT) q [...] of large intest (more content not included)... [facility] 10-01-2022 Note HNO ID: [id number] Author: Maya Mock MD Service: General Surgery [...] questions or concerns Mon-Fri 6a-5p please page [phone]. After 5pm and on Weekends and Holidays, please page [phone] if in ICU or [phone] if on RNF. SUBJECTIVE: Had an allergic [...] 0659 10/01/22 07 - 10/02/22 0659 Shift 6802-3718 2486-8189 1643-9947 24 Hour Total 6094-8538 0183-4071 2558-8240 24 Hour Total INTAKE IV 502 502 Volume (mL) (dextrose 5% in NaCl 0.45% iv infusion) 502 502 Shift Total 502 502 OUTPUT Urine 1000 1975 2975 Void (ml) 475 475 Output ( Indwelling Urinary Catheter Admission to [facility]) 1000 1500 2500 Tubes 415 269 5406 Output (GI Feed 09/29/22 Assessment Right Naris) 168 002 1306 Shift Total 1263 274 1662 4075 Weight (kg) 60.2 60.2 60.2 60.2 60.2 60.2 60.2 60.2 MEDICATIONS Current Facility-Administered Medications Medication Dose Route Frequency phenol 1 Douglass (CHLORASEPTIC) 1 Douglass MUCOUS MEMBRANE (TOPICAL MOUTH AND THROAT) q [...] kidney 03/25/2010 Stage 3a chronic kidney disease ([facility]) 09/21/2007 Overview Note: Dr. 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 [facility] 09-30-2022 Note HNO ID: [id number] Author: Jessica Howard RN Service: Care Management Author Type: Registered Nurse Type: Care Mgt Initial Assessment Filed: 09/30/2022 12:52 PM Note Text: CARE MANAGEMENT: ASSESSMENT AND DISCHARGE PLAN SERVICE DATE: September 30, 2022 SERVICE TIME: 12:45 PM PRIMARY CARE PHYSICIAN: Elliot Kang MD Primary Contact: Extended Emergency Contact Information Primary Emergency Contact: Jessica Gold [id number] [facility] Mobile Relation: Daughter Secondary Emergency Contact: Coco Mondragon [facility] Mobile Relation: Daughter ADMISSION STATUS: Inpatient Insurance [...] Current Advance Directive: Health Care Power of [place]erry Terminal Supervisor;Living Will In Chart: No MS/BEHAVIOR Baseline Mental [...] discharge within 30 days: No 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 No behavioral/cognitive discharge barriers identified at this time. FREEDOM O (more content not included)... [facility] 09-30-2022 Note HNO ID: [id number] Author: Geni Matos RN Service: PICC Team Author Type: Registered Nurse Type: Procedures Filed: 09/30/2022 10:23 AM Note Text: PICC NURSE INSERTION NOTE DATE OF PROCEDURE: September 30, 2022 TIME OF PROCEDURE: 919 ORDERING PHYSICIAN: Patrick INFORMED CONSENT: Obtained per hospital policy. INDICATION FOR LINE PLACEMENT: IV access TPN CONDITION OF LINE PLACEMENT: Sterile PRIMARY PROCEDURALIST: Nayeli Lakhani RN SOFT WORK CIGAR MACHINE OPERATOR: Geni Matos RN PRE-PROCEDURE REVIEW ALLERGIES Allergen Reactions Idvrgxd-Vov-Jrg Red* Myalgia Ciprofloxacin Rash Codeine Mag.Citrate [Other] [...] appropriate PPE (Personal Protective Equipment). Special equipment: oluSupply Vision Patient/Surrogate Stated/Verified: PATIENT VERIFIED(optional for EMERGENT procedures): [...] applicable. Geni Matos RN CATHETER PLACEMENT Brand: Embedded Chat Lot: [id number] Number of Lumens: 2 Type of PICC: Power Injectable PICC Lumen Size: 5 [place] PLACEMENT TECHNIQUE Lidocaine: Yes, Lidocaine 1% Volume [...] Given to patient QUESTIONS or PROBLEMS: Call [phone] SIGNATURE: Geni Matos RN PATIENT NAME: Jose De Jesus Gold DATE: September 30, 2022 TIME: 9:24 AM PAGER/CONTACT PHONE: [facility] 09-30-2022 Note HNO ID: [id number] Author: Marnie Carter MD Service: General Surgery [...] questions or concerns Mon-Fri 6a-5p please page [phone]. After 5pm and on Weekends and Holidays, please page [phone] if in ICU or [phone] if on RNF. SUBJECTIVE: NAEON. Denies nausea/vomiting [...] 0659 09/30/22 0700 - 10/01/22 0659 Shift 8497-5239 6422-6081 6397-7434 24 Hour Total 3134-9164 6943-5949 3943-5697 24 Hour Total INTAKE IV 100 1619 489 3314 Volume (mL) (meropenem 1 g in NaCl 0.9% 100 mL Vial-Bag (MERREM)) 100 100 Volume (mL) (lactated ringers iv infusion) 2147 639 9702 Shift Total 100 6331 465 9892 OUTPUT Urine 9942 246 0908 Output ( Indwelling Urinary Catheter Admission to Hospital Sheets) 8394 392 2375 Tubes 175 175 Output (GI Feed 09/29/22 Assessment Right Naris) 175 175 Ostomy 300 300 Output (mL) (Colostomy LLQ) 300 300 Shift Total 2231 736 0348 Weight (kg) 52.2 52.2 60.2 60.2 60.2 [...] 10 day steroi (more content not included)... [facility] documented as of this encounter (statuses as of 10/06/2022) [facility]11-24-2022 History of Past illness Narrative* Problem [...] of this encounter (statuses as of 10/13/2022) [facility] History of Past illness Narrative* Problem [...] of this encounter (statuses as of 10/14/2022) [facility] History of Past illness Narrative* Problem [...] of this encounter (statuses as of 10/28/2022) [facility]08-02-2022 NotePatient Outreach ([facility]) JOSE DE JESUS GOLD ([id number]) 1945 F Date Time Provider Department 06/07/22 ALISIA GUIDRY During your visit today, we recorded the following information about you: Alisia Guidry 06/07/2022 9:01 AM Signed POPULATION HEALTH NAVIGATION OUTREACH Action/ 1st attempt: Left message for patient including my direct number 2nd attempt: My Chart message sent [facility] GAPS Z93.3 - Colostomy status (HCC) - [id number] Last Billed 08/26/2020 Care Gaps Follow-up appointment [...] As of Date: 06/07/2022 Noted Allergy Reaction [id number] REDUCTASE INHIBIT*10/25/2018 17 - Myalgia CIPROFLOXACIN 08/21/2003 [...] 05/21/2020 Encounter Status:Closed by ALISIA GUIDRY on 06/07/22[facility] 06-07-2022 NoteHNO ID: [id number] Author: Alisia Guidry Service: ? Author Type: ? Type: Progress Notes Filed: 06/07/2022 9:01 AM Note Text: POPULATION HEALTH NAVIGATION OUTREACH Action/ 1st attempt: Left message for patient including my direct number 2nd attempt: My Chart message sent [facility] GAPS Z93.3 - Colostomy status (HCC) - [id number] Last Billed 08/26/2020 Care Gaps Follow-up appointment [...] Signature: Alisia Guidry June 07, 2022 9:01 [facility]08-02-2022 History of Present illness Narrative* Alisia Guidry - 06/07/2022 8:57 AM EDT POPULATION HEALTH NAVIGATION OUTREACH Action/ 1st attempt: Left message for patient including my direct number 2nd attempt: My Chart message sent HCC GAPS Z93.3 - Colostomy status (HCC) - [id number] Last Billed 08/26/2020 Care Gaps Follow-up appointment [...] 07, 2022 9:01 [facility] of Past illness Narrative* Problem [...] of this encounter (statuses as of 06/07/2022) [facility] Summary Purpose Family History No Family [...] DATE CREATED AUTHOR AUTHOR'S ORGANIZ ATION 10/30/2022 [facility] DATE CREATED AUTHOR AUTHOR'S ORGANIZ ATION 08/13/2023 [facility] Source Comments (unrecognize d section and content) In the event this informatio n is protected by the Federal Confidentiality of Alcohol and Drug Abuse Patient Records regulations: The Federal rules restrict any use of the information to criminally investigate or prosecute any alcohol or drug abuse patient.[facility] the event this information is protected by the Federal Confidentiality of Alcohol and Drug Abuse Patient Records regulations: The Federal rules restrict any use of the information to criminally investigate or prosecute any alcohol or drug abuse patient.[facility] the event this information is protected by the Federal Confidentiality of Alcohol and Drug Abuse Patient Records regulations: The Federal rules restrict any use of the information to criminally investigate or prosecute any alcohol or drug abuse patient.[facility] the event this information is protected by the Federal Confidentiality of Alcohol and Drug Abuse Patient Records regulations: The Federal rules restrict any use of the information to criminally investigate or prosecute any alcohol or drug abuse patient.[facility] the event this information is protected by the Federal Confidentiality of Alcohol and Drug Abuse Patient Records regulations: The Federal rules restrict any use of the information to criminally investigate or prosecute any alcohol or drug abuse patient.[facility] Reason for Visit (unrecogniz ed section and content) Reason Comments Results Reason Comments CoPat Stop Reason Onset Date Comments Community Monitoring Outreach 10/27/2022 En rollment Care Teams (unrecognized sec tion and content) Manufacturing Engineering Technician Relationship Specialty Start Date End Date Elliot Kang Chi [address] [place] [address] PCP - General Gerontology 09/30/22 Trav Herron MD [address] [place] [address] Consulting General Surgery 02/09/15 Glen Gonzalez MD [address] [place] [address] Specialty Accountant Clerk Nephrology 10/01/18 Manufacturing Engineering Technician Relationship Specialty Start Date End Date Elliot Kang Chi [address] [place] [address] PCP - General Gerontology 09/30/22 Trav Herron MD [address] [place] [address] Consulting General Surgery 02/09/15 Glen Gonzalez MD [address] [place] [address] Specialty Accountant Clerk Nephrology 10/01/18 Manufacturing Engineering Technician Relationship Specialty Start Date End Date Elliot Kang Chi [address] [place] [address] PCP - General Gerontology 09/30/22 Trav Herron MD [address] [place] [address] Consulting General Surgery 02/09/15 Glen Gonzalez MD [address] [place] [address] Specialty Accountant Clerk Nephrology 10/01/18 Manufacturing Engineering Technician Relationship Specialty Start Date End Date Elliot Kang Chi [address] [place], [place] [address] PCP - General Gerontology 09/30/22 Trav Herron MD [address] [facility] [place] [place] [id number] Consulting General Surgery 02/09/15 Glen Gonzalez MD [address] [facility] [address] [place], [place] [id number] Specialty Accountant Clerk Nephrology 10/01/18 FOR RECORDS PERTAINING TO PATIENTS [...] BE BASED ON THE PRIMARY CLINICAL RECORDS. [facility]. provides no warranty or guarantee of the accuracy or completeness of information in this document.
== END | disposition home or self-care (01) ==
PROVIDERS: PCP Family Medicine Geriatric Medicine; Referring Provider Urology; Visit Provider Urology
DX: N17.9 Acute kidney failure, unspecified (principal); N13.39 Other hydronephrosis; R33.9 Retention of urine, unspecified
CPT/HCPCS: 76770

== ENCOUNTER → 2024-01-09 | Outpatient (CLI) | payer MEDICARE, OTHER, SELFPAY ==
--- NOTE | 2024-01-09 12:17 | US_ITS ---
HISTORY: RECHECK FROM HYDRO. TECHNIQUE: Del Cid scale and color doppler images were obtained of the kidneys. 94 images. COMPARISON: US 12/25/2023, CT 12/14/2023. FINDINGS: RIGHT KIDNEY: 9.3 cm in length with a cortical thickness of 10 mm. Contour and echogenicity unremarkable. No hydronephrosis. Echogenic foci measuring up to 4 mm and 5 mm. LEFT KIDNEY: 7.7 cm in length with a cortical thickness of 12 mm. Echogenicity unremarkable. Small cysts measuring up to 1.1 cm. No hydronephrosis. Echogenic foci measuring up to 4 mm and a 5 mm. URINARY BLADDER: Unremarkable at 365 cc with a wall thickness of 2 mm. Bilateral ureteral jets visualized. US/Kidney and Bladder IMPRESSION: Nonobstructing bilateral renal calculi. Small left renal cysts. Electronically Signed: Magda Jiménez MD at 12:20 EST ,
== END | disposition home or self-care (01) ==
PROVIDERS: PCP Family Medicine Geriatric Medicine; Referring Provider Urology; Visit Provider Urology
DX: N13.30 Unspecified hydronephrosis (principal)
CPT/HCPCS: 76770

== ENCOUNTER → 2024-01-12 | Outpatient (CLI) | payer MEDICARE, OTHER, SELFPAY ==
[2024-01-12 10:14] LABS: Erythrocyte Sedimentation Rate 24 mm/hr (0-30)
[2024-01-12 10:17] LABS: Absolute Lymphocyte Count 3.24 X10^3/uL (0.83-4.51); Basophil# 0.03 X10^3/uL; Basophil% 0.2 % (0-1); Eosinophil# 0.37 X10^3/uL; Hematocrit 46.4 % (37-47); Hemoglobin 14.4 g/dL (12.0-15.0); Lymphocyte # 3.24 X10^3/ul (0.83-4.51); Lymphocyte % 26.1 % (19-41); Mean Corpuscular Volume 90.3 fL (81-99); Mean Platelet Vol. 9.2 fl (6.2-12.0); Monocyte% 5.6 % (0-10); NRBC Flagged by Analyzer 0 % (0-5); Neutrophil # 8.04 X10^3/uL (2.7-7.7); Neutrophil % 64.8 % (47-70); Platelet Count 284 K/mm3 (150-450); RBC Distribution Width CV 13.1 % (11.6-14.6); RBC Distribution Width SD 43.5 fl (35.1-43.9); Red Blood Count 5.14 M/mm3 (4.2-5.4); White Blood Count 12.4 K/mm3 (4.4-11.0)
[2024-01-12 11:09] LABS: ALB/GLOB Ratio 0.8 RATIO (0.9-2.4); AST(SGOT) 28 U/L (15-37); Alanine Aminotransfer ALT/SGPT 29 U/L (13-56); Albumin, Serum 3.7 g/dL (3.2-5.0); Alkaline Phosphatase 105 U/L (45-117); Anion Gap 9 (5-15); BUN 12 mg/dL (7-18); BUN/Creat Ratio 7.1 RATIO (10-20); CRP 3.12 mg/L (0.0-3.0); Calcium,Total 10.3 mg/dL (8.5-10.1); Chloride 110 mmol/L (98-107); Creatinine, Serum 1.68 mg/dL (0.55-1.02); EST Glomerular Filtration Rate 31 mL/min (>60); Est Glom Filt Rate - Afr Amer 38 mL/min (>60); Globulin 4.8 g/dL (2.2-4.2); Glucose 103 mg/dL (74-106); LDH 187 U/L (84-246); Potassium 3.6 mmol/L (3.5-5.1); Protein, Total 8.5 g/dL (6.4-8.2); Sodium Level 136 mmol/L (136-145); Thyroid Stim Hormone (TSH) 1.23 uIU/mL (0.358-3.74)
[2024-01-16 15:03] LABS: Albumin 3.8 g/dL (2.9-4.4); Alpha-1-Globulins 0.3 g/dL (0.0-0.4); Endomysial Antibody IgA Negative (Negative); Gamma Globulin 1.2 g/dL (0.4-1.8); Immunoglobulin A 316 mg/dL (64-422); Immunoglobulin G 1149 mg/dL (586-1602); Immunoglobulin M 203 mg/dL (26-217); PROEL- TOTAL PROTEIN 7.6 g/dL (6.0-8.5); t-Transglutaminase IgA <2 U/mL (0-3)
[2024-01-19 00:06] LABS: Anti-Centromere B Ab <0.2 AI (0.0-0.9); Anti-Chromatin <0.2 AI (0.0-0.9); Anti-Jo <0.2 AI (0.0-0.9); Anti-Scleroderma-70 AB <0.2 AI (0.0-0.9); Anti-dsDNA Ab <1 IU/mL (0-9); Beef <0.10 kU/L (Class 0); Chocolate <0.10 kU/L (Class 0); Codfish <0.10 kU/L (Class 0); Corn <0.10 kU/L (Class 0); Egg, Whole 0.47 kU/L (Class I); Milk (Cow) 0.35 kU/L (Class I); Mussels <0.10 kU/L (Class 0); Peanut 0.13 kU/L (Class 0/I); Pork <0.10 kU/L (Class 0); RNP Ab <0.2 AI (0.0-0.9); SJOGREN'S Anti-SS-A test < 0.2 AI (0.0-0.9); SJOGREN'S Anti-SS-B test < 0.2 AI (0.0-0.9); Salmon <0.10 kU/L (Class 0); Shrimp <0.10 kU/L (Class 0); Smith Ab <0.2 AI (0.0-0.9); Soybean <0.10 kU/L (Class 0); Tuna <0.10 kU/L (Class 0); Wheat 0.11 kU/L (Class 0/I)
== END | disposition home or self-care (01) ==
LOC: LAB 09:36
PROVIDERS: Referring Provider Internal Medicine Gastroenterology; Visit Provider Internal Medicine Gastroenterology
DX: T78.40XA Allergy, unspecified, initial encounter (principal); K50.018 Crohn's disease of small intestine with other complication; F32.A Depression, unspecified; X58.XXXA Exposure to other specified factors, initial encounter
CPT/HCPCS: 36415; 80053; 82784; 83516; 83615; 84165; 84443; 85025; 85652; 86003; 86005; 86140; 86225; 86235; 86255; 86334

== ENCOUNTER → 2024-01-13 | Outpatient (CLI) | payer MEDICARE, OTHER, SELFPAY ==
--- OUTSIDE RECORDS SUMMARY | 2024-01-13 10:50 | XMS RPT_ITS | CCD ---
Author Name Unknown Address [address] [place] [address] Organization [facility] Care Team Providers Care Sharepoint Application Developer Name Role Phone CRISTIN CHEEMA Referring Unavailable [...] Ciprofloxacin; Translations: [CIPROFLOXACIN] Drug Allergy [address] [facility] (6 sources) Codeine; Translations: [CODEINE] Drug Allergy [address] [facility] (6 sources) HMG-CoA reductase inhibitor; Translations: [ZVMRFFK-UXF-UJ A REDUCTASE INHIBITORS] Drug Intolerance [address] [facility] Work Phone: (6 sources) Non-steroidal anti-inflammato ry agent; Translations: [NSAIDS (NON-STEROIDAL ANTI-INFLAMMATO RY DRUG)] Propensity to adverse reactions to drug 5 Other: See Comments [facility] (6 sources) Penicillins; Translations: [PENICILLINS] Propensity to adverse reactions Hives [facility] (5 sources) Mag.citrate [Other] Propensity to adverse reactions [address] [facility] (1 source) OTHER; Translations: [OTHER] Propensity to adverse reactions (disorder) [address] 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 Immunizations Immunization Date Immunization Notes Care Provider Fa maxim 02-02-2021 COVID-19 vaccine, ag e 12+ yr (PFIZER-BIONTECH - PURPLE TOP) [facility] Work Phone: 01-11-2021 COVID-19 vaccine, ag e 12+ yr (PFIZER-BIONTECH - PURPLE TOP) [facility] Work Phone: 08-26-2020 influenza, high-dose , quadrivalent vaccine (FLUZONE HIGH DOSE QUADRIVALENT) [facility] Work Phone: 08-06-2019 influenza, high dose seasonal, preservative-free [facility] Work Phone: 07-24-2018 influenza, high dose seasonal, preservative-free [facility] Work Phone: 10-23-2017 influenza, high dose seasonal, preservative-free [facility] 10-12-2016 influenza, high dose seasonal, preservative-free [facility] 10-12-2015 influenza, high dose seasonal, preservative-free [facility] 04-02-2015 pneumococcal polysaccharide vaccine, 23 valent [facility] 09-30-2014 influenza, seasonal, injectable [facility] 09-30-2014 pneumococcal conjuga te vaccine, 13 valent [facility] 03-27-2014 tetanus and diphther ia toxoids, adsorbed, preservative free, for adult use (5 Lf of tetanus toxoid and 2 Lf of diphtheria toxoid) [facility] 09-23-2013 influenza virus vacc ine, unspecified formulation [facility] 11-19-2012 influenza virus vacc ine, unspecified formulation [facility] Work Phone: 11-25-2010 influenza virus vacc ine, unspecified formulation [facility] Work Phone: 2009 influenza virus vacc ine, unspecified formulation [facility] Work Phone: 09-18-2008 influenza virus vacc ine, unspecified formulation [facility] 09-11-2007 influenza virus vacc ine, unspecified formulation [facility] 09-07-2006 influenza virus vacc ine, unspecified formulation [facility] 09-06-2004 pneumococcal polysaccharide vaccine, 23 valent [facility] Work Phone: 06-06-2003 tetanus and diphther ia toxoids, adsorbed, preservative free, for adult use (2 Lf of tetanus toxoid and 2 Lf of diphtheria toxoid) [facility] Work Phone: Payers Date Payer Category Payer Medicare [id number] 2016 Medicare MEDICARE MEDICAR E A AND B [id number] 2016-Present [phone] [place] [address] Medicare [id number] 2016 Medicare MEDICARE MEDICAR E A AND B [id number] 2016-Present [phone] [place] [address] Medicare [id number] 2016 Unknown [id number] 2016 Unknown [employer] [place] [employer] [place] MEDICARE SUPPLEMENT [id number] 2016-Present [phone] [address] [place] [address] Indemnity [id number] 2016 Unknown [employer] [place] [employer] [place] MEDICARE SUPPLEMENT [id number] 2016-Present [phone] [address] [place] [address] Indemnity [id number] 1945 Unknown [id number] 1945 Unknown [id number] Social History Date Type Detail Facility Start: 04-24-2018 Tobacco smoking stat us NHIS Ex-smoker [facility] Work Phone: End: 02-03-2018 History of tobacco use Current smoker [facility] Work Phone: End: 02-03-2018 History of tobacco use Cigarette Smoker [facility] Work Phone: Start: 04-24-2018 Cigarettes smoked current (pack per day) - Reported [address] [facility] Start: 04-24-2018 Tobacco use and exposure Smokeless tobacco non-user [facility] Work Phone: Start: 10-11-2021 End: 06-22-2022 Alcohol intake Current drinker of alcohol (finding) [facility] Start: 11-03-2020 End: 09-30-2022 History SDOH Housing Unable to Pay [address] [facility] Start: 11-03-2020 End: 09-30-2022 History SDOH Housing Places Lived [address] [facility] Start: 04-24-2018 Tobacco Comment Quit January 2018 [facility] Start: 1945 Sex Assigned At Not on file C [facility] Start: 09-30-2022 History SDOH Financial [address] [facility] Start: 09-21-2022 End: 10-01-2022 Exposure to SARS-CoV-2 (event) Not sure [facility] Medical Equipment Procedure Code Equipment Code [...] Note Facility 10-27-2022 Note Patient Outreach ([facility]) JOSE DE JESUS GOLD ([id number]) 1945 F Date Time Provider Department 10/27/22 AVERY STOVALL During your visit today, we recorded the following information about you: Avery Stovall RN 10/27/2022 9:16 AM Signed [facility] CDM Enrollment Provider Action/FYI: Non [facility] PCP Patient referred by: [facility] Kavon Contact made with patient: Patient not outreached at this time. Closing: Patient does not meet criteria. PCC to reassess patient in a month. END OUTREACH Allergies As of Date: 10/27/2022 Noted Allergy Reaction [id number] REDUCTASE INHIBIT*10/25/2018 17 - Myalgia CIPROFLOXACIN 08/21/2003 [...] Encounter Status:Closed by AVERY STOVALL on 10/27/22 [facility] 10-27-2022 Note HNO ID: [id number] Author: Avery Stovall RN Service: ? Author Type: Registered Nurse Type: Progress Notes Filed: 10/27/2022 9:16 AM Note Text: [facility] Enrollment Provider Action/FYI: Non [facility] PCP Patient referred by: [facility] Kavon Contact made with patient: Patient not outreached at this time. Closing: Patient does not meet criteria. PCC to reassess patient in a month. END OUTREACH [facility] 10-27-2022 History of Presen t illness Narrative [facility] CD Enrollment Provider Action/FYI: Non [facility] PCP Patient referred by: [facility] Kavon Contact made with patient: Patient not outreached at this time. Closing: Patient does not meet criteria. PCC to reassess patient in a month. END OUTREACH documented in this encounter [facility] 10-14-2022 Miscellaneous Notes [phone] to return call. Soraya Feng RN Can you please check with them and see when are they planning for ureteral stent removal? Ideally the antibiotic should go until the stent is removed. Thanks Roberth Espino MD Copat stop date 10-17-22. Can stop date be honored and PICC be removed after last dose of cefepime? Soraya Feng RN documented in this encounter [facility] 10-13-2022 Miscellaneous Notes External copat labs entered. Soraya Feng RN documented in this encounter [facility] 10-05-2022 Note HNO ID: [id number] Author: Lea Cheema RN Service: ? Author Type: Registered Nurse Type: Nursing Progress Note Filed: 10/05/2022 3:47 PM Note Text: Other: report called to [facility]. Daughter to transport patient. [facility] 10-05-2022 Note HNO ID: [id number] Author: Francy Pierre RN Service: Care Management Author Type: Registered Nurse Type: Care Mgt Progress Note Filed: 10/05/2022 3:53 PM Note Text: CARE MANAGEMENT DISCHARGE NOTE SERVICE DATE: 10/05/2022 SERVICE TIME: 3:39 PM LOS: 6 days Admission Date: 09/29/2022 DISCHARGE ARRANGEMENT (list agency and phone number) Discharge Arrangement: [facility] Was an expedited discharge program used?: No Provider Name: [facility] CAREGIVER ASSESSMENT: Caregiver is ready, willing and able to meet the patient's needs as recommended by the inter-professional team:: Yes Patient's transition needs and plan for meeting these needs: SNF HANDOFF COMMUNICATION: Handoff to: Other Caregiver Other Caregiver Name/Phone: [facility]/ Bedside RN TRANSPORTATION ARRANGEMENTS: Transportation Arrangements: Car Needs Prior to Discharge: Ready for Discharge Discharge today. Discharge orders complete. [facility] is able to accept patient. No insurance authorization needed. Family will transport around 1700. [facility] Unit notified. Bedside RN notified. SIGNATURE: Francy Pierre RN PATIENT NAME: Jose De Jesus Gold DATE: October 05, 2022 TIME: 3:39 PM PAGER/CONTACT #: [phone] [facility] 10-05-2022 Note HNO ID: [id number] Author: Francy Pierre RN Service: Care Management [...] 05, 2022 TIME: 11:31 AM PAGER/CONTACT #: [phone] [facility] 10-05-2022 Note HNO ID: [id number] Author: Francy Pierre RN Service: Care Management [...] plan is for SNF placement at discharge. [facility] is able to accept patient once medically stable. No insurance authorization needed. Anticipated DC Date: In the next 24- 48 hours. DC Transportation: If able to safely do so, patient's family will provide transportation at discharge. SIGNATURE: Francy Pierre RN PATIENT NAME: Jose De Jesus Gold DATE: October 05, 2022 TIME: 9:06 AM PAGER/CONTACT #: [phone] [facility] 10-05-2022 Note HNO ID: [id number] Author: Anita Burgos APRN.MAINTENANCE ELECTRICIAN Service: General Surgery Author Type: Nurse Specialist [...] 0659 10/05/22 0700 - 10/06/22 0659 Shift 8031-4223 3103-1943 3212-7072 24 Hour Total 6810-3832 5444-2139 0422-5968 24 Hour Total INTAKE PO 360 480 840 460 460 PO 360 480 840 460 460 Shift Total 360 480 840 460 460 OUTPUT Urine 1200 655 495 6194 300 300 Void (ml) 800 252 937 0714 300 300 Output ([REMOVED] Indwelling Urinary Catheter Admission to [facility] 10/04/22 1040) 400 400 Ostomy 858 714 5287 250 250 Output (mL) (Colostomy LLQ) 116 200 3600 250 250 Shift Total 2100 2347 628 0439 550 550 Weight (kg) 54.4 54.4 52.1 [...] g INTRAVENOUS q 12 H phenol 1 [facility] (CHLORASEPTIC) 1 [facility] MUCOUS MEMBRANE (TOPICAL MOUTH AND THROAT) q [...] included)... [facility] 10-04-2022 Note HNO ID: [id number] Author: Francy Pierre RN Service: Care Management Author Type: Registered Nurse Type: Care Mgt Progress Note Filed: 10/04/2022 2:50 PM Note Text: CARE MANAGEMENT PROGRESS NOTE SERVICE DATE: 10/04/2022 SERVICE TIME: 2:49 PM LOS: 5 days Care Coordination Summary: Due to patient's medical complexity and need for IV antibiotics, plan is for SNF placement at discharge. [facility] is able to accept patient once medically stable. No insurance authorization needed. SIGNATURE: Francy Pierre RN PATIENT NAME: Jose De Jesus Gold DATE: October 04, 2022 TIME: 2:48 PM PAGER/CONTACT #: [phone] [facility] 10-04-2022 Note HNO ID: [id number] Author: Bismark Brand MD Service: General Surgery Author Type: Resident Type: Progress Notes Filed: 08/10/2023 4:07 PM Note Text: Emergency General Surgery Progress Note SERVICE DATE: October 04, 2022 Emergency General Surgery Service Pager: For questions or concerns Mon-Fri 6a-5p please page [phone]. After 5pm and on Weekends and Holidays, please page [phone] if in ICU or [phone] if on RNF. SUBJECTIVE: NAEON. VSS. No [...] 0659 10/04/22 07 - 10/05/22 0659 Shift 8461-8161 4837-0595 3433-4214 24 Hour Total 3290-0203 4341-5041 7974-7868 24 Hour Total INTAKE PO 240 360 600 PO 240 360 600 TPN/PPN 910 910 Volume (mL) (Parenteral Nutrition - Adult) 910 910 Shift Total 240 105 621 4007 OUTPUT Urine 661 344 3688 2300 800 800 Void (ml) 400 400 Output ([REMOVED] Indwelling Urinary Catheter Admission to [facility] 10/04/22 1040) 320 024 7915 2300 400 400 Ostomy 550 0 550 Output (mL) (Colostomy LLQ) 550 0 550 Shift Total 8588 091 2765 2850 800 800 Weight (kg) 59.6 59.6 54.4 54.4 54.4 54.4 54.4 54.4 MEDICATIONS Current Facility-Administered Medications Medication Dose Route Frequency Parenteral Nutrition - Adult INTRAVENOUS ONCE PN (1800 START) Parenteral Nutrition - Adult INTRAVENOUS ONCE PN (1800 START) cefepime 1 g in D5W 100 mL Vial-Bag (MAXIPIME) 1 g INTRAVENOUS q 12 H phenol 1 [facility] (CHLORASEPTIC) 1 [facility] MUCOUS MEMBRANE (TOPICAL MOUTH AND THROAT) q [...] nephritis from NSAIDs Colostomy status ([facility]) 05/08/2007 Diarrhea 11/22/2005 Overview Note: Radiation [...] included)... [facility] 10-04-2022 Note HNO ID: [id number] Author: Francy Pierre RN Service: Care Management [...] placement at discharge. Patient's SNF choice is [facility] due to past experience. [facility] notified. Awaiting acceptance. Anticipated DC Date: To be determined. DC Transportation: If able to safely do so, patient's family will provide transportation at discharge. SIGNATURE: Francy Pierre RN PATIENT NAME: Jose De Jesus Gold DATE: October 04, 2022 TIME: 11:38 AM PAGER/CONTACT #: [phone] [facility] 10-03-2022 Note HNO ID: [id number] Author: India Millan MD Service: Urology Author [...] questions/concerns and otherwise page the urology resident recreation supervisor if needed India Millan MD Urology PGY-1 [...] volume. [facility] 10-03-2022 Note HNO ID: [id number] Author: Francy Pierre RN Service: Care Management [...] prior to admission. Patient recently discharged from [facility]. Patient resides in a [...] care and receives her ostomy supplies from [employer] At this time, plan is for patient to return home once medically stable. Will continue to follow clinical course for transitional/discharge planning needs. Anticipated DC Date: To be determined. DC Transportation: If able to safely do so, patient's family will provide transportation at discharge. SIGNATURE: Francy Pierre RN PATIENT NAME: Jose De Jesus Gold DATE: October 03, 2022 TIME: 1:29 PM PAGER/CONTACT #: [phone] [facility] 10-03-2022 Note HNO ID: [id number] Author: Francy Pierre RN Service: Care Management [...] 03, 2022 TIME: 12:37 PM PAGER/CONTACT #: [phone] [facility] 10-03-2022 Note HNO ID: [id number] Author: Bismark Brand MD Service: General Surgery [...] questions or concerns Mon-Fri 6a-5p please page [phone]. After 5pm and on Weekends and Holidays, [...] 0659 10/03/22 0700 - 10/04/22 0659 Shift 6644-3167 4925-4776 4236-3537 24 Hour Total 0487-7478 5856-8185 4449-9814 24 Hour Total INTAKE Shift Total OUTPUT Urine 2447 618 6605 3525 Output ( Indwelling Urinary Catheter Admission to Hospital Sheets) 9475 242 0256 3525 Ostomy 10 200 210 Output (mL) (Colostomy LLQ) 10 200 210 Shift Total 6859 664 5983 3735 Weight (kg) 58.2 58.2 59.6 59.6 59.6 59.6 59.6 59.6 MEDICATIONS Current Facility-Administered Medications Medication Dose Route Frequency Parenteral Nutrition - Adult INTRAVENOUS ONCE PN (1800 START) phenol 1 [facility] (CHLORASEPTIC) 1 [facility] MUCOUS MEMBRANE (TOPICAL MOUTH AND THROAT) q [...] included)... [facility] 10-02-2022 Note HNO ID: [id number] Author: Maya Mock MD Service: General Surgery [...] questions or concerns Mon-Fri 6a-5p please page [phone]. After 5pm and on Weekends and Holidays, please page [phone] if in ICU or [phone] if on RNF. SUBJECTIVE: Doing well this [...] 0659 10/02/22 07 - 10/03/22 0659 Shift 9650-7515 5485-5889 0706-1744 24 Hour Total 4633-8330 8059-7282 2874-7287 24 Hour Total INTAKE IV 150 150 Volume (mL) (meropenem 1 g in NaCl 0.9% 100 mL Vial-Bag (MERREM)) 100 100 Volume (mL) (magnesium sulfate iv piggyback in sterile water 2 g 50 mL) 50 50 Shift Total 150 150 OUTPUT Urine 1175 1725 1300 4200 450 450 Output ( Indwelling Urinary Catheter Admission to [facility]) 1175 1725 1300 4200 450 450 Tubes 0 0 Output (GI Feed 09/29/22 Assessment Right Naris) 0 0 Ostomy 250 250 Output (mL) (Colostomy LLQ) 250 250 Shift Total 1175 1725 1550 4450 450 450 Weight (kg) 60.2 60.2 58.2 58.2 58.2 58.2 58.2 58.2 MEDICATIONS Current Facility-Administered Medications Medication Dose Route Frequency phenol 1 [facility] (CHLORASEPTIC) 1 [facility] MUCOUS MEMBRANE (TOPICAL MOUTH AND THROAT) q [...] included)... [facility] 10-01-2022 Note HNO ID: [id number] Author: Maya Mock MD Service: General Surgery [...] questions or concerns Mon-Fri 6a-5p please page [phone]. After 5pm and on Weekends and Holidays, please page [phone] if in ICU or [phone] if on RNF. SUBJECTIVE: Had an allergic [...] 0659 10/01/22 07 - 10/02/22 0659 Shift 5884-6654 6922-5166 3977-6130 24 Hour Total 3707-5975 3386-9452 7591-2696 24 Hour Total INTAKE IV 502 502 Volume (mL) (dextrose 5% in NaCl 0.45% iv infusion) 502 502 Shift Total 502 502 OUTPUT Urine 1000 1975 2975 Void (ml) 475 475 Output ( Indwelling Urinary Catheter Admission to [facility]) 1000 1500 2500 Tubes 540 861 1888 Output (GI Feed 09/29/22 Assessment Right Naris) 819 258 9150 Shift Total 1849 739 2567 4075 Weight (kg) 60.2 60.2 60.2 60.2 60.2 60.2 60.2 60.2 MEDICATIONS Current Facility-Administered Medications Medication Dose Route Frequency phenol 1 [facility] (CHLORASEPTIC) 1 [facility] MUCOUS MEMBRANE (TOPICAL MOUTH AND THROAT) q [...] Stage 3a chronic kidney disease ([facility]) 09/21/2007 Overview Note: Dr. 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 [facility] 09-30-2022 Note HNO ID: [id number] Author: Jessica Howard RN Service: Care Management Author Type: Registered Nurse Type: Care Mgt Initial Assessment Filed: 09/30/2022 12:52 PM Note Text: CARE MANAGEMENT: ASSESSMENT AND DISCHARGE PLAN SERVICE DATE: September 30, 2022 SERVICE TIME: 12:45 PM PRIMARY CARE PHYSICIAN: Elliot Kang MD Primary Contact: Extended Emergency Contact Information Primary Emergency Contact: Jessica Gold [phone] [facility] Mobile Relation: Daughter [...] Current Advance Directive: Health Care Power of Clinical Systems Analyst;Living Will In Chart: No MS/BEHAVIOR Baseline Mental [...] discharge within 30 days: No PATIENT SCREEN Patient/Community Relations Liaison Stated Goals: To have reduction in pain;To [...] Mostly I feel financially burdened by my rrc-bw-hooczv expenses for my prescription medication:: 0 - [...] seat Has the Patient Been in a Correction Facility in the Past 30 days?: No No social discharge barriers identified at this time. No behavioral/cognitive discharge barriers identified at this time. FREEDOM O (more content not included)... [facility] 09-30-2022 Note HNO ID: [id number] Author: Geni Matos RN Service: PICC Team Author Type: Registered Nurse Type: Procedures Filed: 09/30/2022 10:23 AM Note Text: PICC NURSE INSERTION NOTE DATE OF PROCEDURE: September 30, 2022 TIME OF PROCEDURE: 919 ORDERING PHYSICIAN: Patrick INFORMED CONSENT: Obtained per hospital policy. INDICATION FOR LINE PLACEMENT: IV access TPN CONDITION OF LINE PLACEMENT: Sterile PRIMARY PROCEDURALIST: Nayeli Lakhani RN BIOLOGICAL SCIENCE AIDE: Geni Matos RN PRE-PROCEDURE REVIEW ALLERGIES Allergen Reactions Mzruyif-Mzp-Qlr Red* Myalgia Ciprofloxacin Rash Codeine Mag.Citrate [Other] [...] appropriate PPE (Personal Protective Equipment). Special equipment: oluUserstorylab Patient/Surrogate Stated/Verified: PATIENT VERIFIED(optional for EMERGENT procedures): [...] applicable. Geni Matos RN CATHETER PLACEMENT Brand: [employer] Lot: [id number] Number of Lumens: 2 Type of PICC: Power Injectable PICC Lumen Size: 5 Cambodian PLACEMENT TECHNIQUE Lidocaine: Yes, Lidocaine 1% Volume [...] Given to patient QUESTIONS or PROBLEMS: Call [phone] SIGNATURE: Geni Matos RN PATIENT NAME: Jose De Jesus Gold DATE: September 30, 2022 TIME: 9:24 AM PAGER/CONTACT PHONE: [facility] 09-30-2022 Note HNO ID: [id number] Author: Marnie Carter MD Service: General Surgery [...] questions or concerns Mon-Fri 6a-5p please page [phone]. After 5pm and on Weekends and Holidays, please page [phone] if in ICU or [phone] if on RNF. SUBJECTIVE: NAEON. Denies nausea/vomiting [...] 0659 09/30/22 0700 - 10/01/22 0659 Shift 4930-3173 8066-3138 2324-0419 24 Hour Total 1093-7932 9395-2734 7858-8195 24 Hour Total INTAKE IV 100 5866 143 7457 Volume (mL) (meropenem 1 g in NaCl 0.9% 100 mL Vial-Bag (MERREM)) 100 100 Volume (mL) (lactated ringers iv infusion) 9504 269 6849 Shift Total 100 5864 044 1878 OUTPUT Urine 4351 290 9095 Output ( Indwelling Urinary Catheter Admission to Hospital Sheets) 6262 730 8938 Tubes 175 175 Output (GI Feed 09/29/22 Assessment Right Naris) 175 175 Ostomy 300 300 Output (mL) (Colostomy LLQ) 300 300 Shift Total 5233 900 1617 Weight (kg) 52.2 52.2 60.2 60.2 60.2 [...] of this encounter (statuses as of 10/06/2022) [facility]11-24-2022 History of Past illness Narrative* Problem [...] of this encounter (statuses as of 10/13/2022) [facility] History of Past illness Narrative* Problem [...] of this encounter (statuses as of 10/14/2022) [facility] History of Past illness Narrative* Problem [...] of this encounter (statuses as of 10/28/2022) [facility]08-02-2022 NotePatient Outreach ([facility]) JOSE DE JESUS GOLD ([id number]) 1945 F Date Time Provider Department 06/07/22 ALISIA GUIDRY During your visit today, we recorded the following information about you: Alisia Guidry 06/07/2022 9:01 AM Signed POPULATION HEALTH NAVIGATION OUTREACH Action/ 1st attempt: Left message for patient including my direct number 2nd attempt: My Chart message sent [facility] GAPS Z93.3 - Colostomy status (HCC) - [id number] Last Billed 08/26/2020 Care Gaps Follow-up appointment [...] As of Date: 06/07/2022 Noted Allergy Reaction APYFOCY-FTY-QRF REDUCTASE INHIBIT*10/25/2018 17 - Myalgia CIPROFLOXACIN 08/21/2003 [...] 05/21/2020 Encounter Status:Closed by ALISIA GUIDRY on 06/07/22[facility] 06-07-2022 NoteHNO ID: [id number] Author: Alisia Guidry Service: ? Author Type: ? Type: Progress Notes Filed: 06/07/2022 9:01 AM Note Text: POPULATION HEALTH NAVIGATION OUTREACH Action/ 1st attempt: Left message for patient including my direct number 2nd attempt: My Chart message sent [facility] GAPS Z93.3 - Colostomy status (HCC) - [id number] Last Billed 08/26/2020 Care Gaps Follow-up appointment [...] Signature: Alisia Guidry June 07, 2022 9:01 [facility] [facility] History of Present illness Narrative* Alisia Guidry - 06/07/2022 8:57 AM EDT POPULATION HEALTH NAVIGATION OUTREACH Action/ 1st attempt: Left message for patient including my direct number 2nd attempt: My Chart message sent HCC GAPS Z93.3 - Colostomy status (HCC) - [id number] Last Billed 08/26/2020 Care Gaps Follow-up appointment [...] 07, 2022 9:01 AM [facility] of Past illness Narrative* Problem [...] of this encounter (statuses as of 06/07/2022) [facility] Summary Purpose Family History No Family [...] DATE CREATED AUTHOR AUTHOR'S ORGANIZ ATION 10/30/2022 [facility] DATE CREATED AUTHOR AUTHOR'S ORGANIZ ATION 08/13/2023 [facility] Source Comments (unrecognize d section and content) In the event this informatio n is protected by the Federal Confidentiality of Alcohol and Drug Abuse Patient Records regulations: The Federal rules restrict any use of the information to criminally investigate or prosecute any alcohol or drug abuse patient.[facility] the event this information is protected by the Federal Confidentiality of Alcohol and Drug Abuse Patient Records regulations: The Federal rules restrict any use of the information to criminally investigate or prosecute any alcohol or drug abuse patient.[facility] the event this information is protected by the Federal Confidentiality of Alcohol and Drug Abuse Patient Records regulations: The Federal rules restrict any use of the information to criminally investigate or prosecute any alcohol or drug abuse patient.[facility] the event this information is protected by the Federal Confidentiality of Alcohol and Drug Abuse Patient Records regulations: The Federal rules restrict any use of the information to criminally investigate or prosecute any alcohol or drug abuse patient.[facility] the event this information is protected by the Federal Confidentiality of Alcohol and Drug Abuse Patient Records regulations: The Federal rules restrict any use of the information to criminally investigate or prosecute any alcohol or drug abuse patient.[facility] Reason for Visit (unrecogniz ed section and content) Reason Comments Results Reason Comments CoPat Stop Reason Onset Date Comments Community Monitoring Outreach 10/27/2022 En rollment Care Teams (unrecognized sec tion and content) Sharepoint Application Developer Relationship Specialty Start Date End Date Elliot Kang Chi [address] [place] [address] PCP - General Gerontology 09/30/22 Trav Herron MD [address] [place] [address] Consulting General Surgery 02/09/15 Glen Gonzalez MD [address] [place] [address] Specialty Radio Repairman Nephrology 10/01/18 Sharepoint Application Developer Relationship Specialty Start Date End Date Elliot Kang Chi [address] [place] [address] PCP - General Gerontology 09/30/22 Trav Herron MD [address] [place] [address] Consulting General Surgery 02/09/15 Glen Gonzalez MD [address] [place] [address] Specialty Radio Repairman Nephrology 10/01/18 Sharepoint Application Developer Relationship Specialty Start Date End Date Elliot Kang Chi [address] [place] [address] PCP - General Gerontology 09/30/22 Trav Herron MD [address] [place] [address] Consulting General Surgery 02/09/15 Glen Gonzalez MD [address] [place] [address] Specialty Radio Repairman Nephrology 10/01/18 Sharepoint Application Developer Relationship Specialty Start Date End Date Elliot Kang Chi [address] [place], [place] [id number] PCP - General Gerontology 09/30/22 Trav Herron MD [address] [facility] [place] [place] [id number] Consulting General Surgery 02/09/15 Glen Gonzalez MD [address] [facility] [address] [place], [place] [id number] Specialty Radio Repairman Nephrology 10/01/18 FOR RECORDS PERTAINING TO PATIENTS [...] BE BASED ON THE PRIMARY CLINICAL RECORDS. [facility]. provides no warranty or guarantee of the accuracy or completeness of information in this document.
[2024-01-17 19:08] LABS: Giardia Lamblia, Stool EIA Negative (Negative); Pancreatic Elastase, Fecal < 50 (>200)
[2024-01-27 00:07] LABS: Calprotectin, Stool 22 ug/g (0-120); Fats, Neutral Increased (.); Fats, Total Increased (.)
== END | disposition home or self-care (01) ==
LOC: LABSPEC 10:47
PROVIDERS: Referring Provider Internal Medicine Gastroenterology; Visit Provider Internal Medicine Gastroenterology
DX: K50.018 Crohn's disease of small intestine with other complication (principal)
CPT/HCPCS: 82653; 82705; 83630; 83993; 87177; 87209; 87329; 87493; 87506

== ENCOUNTER → 2024-02-15 | Outpatient (CLI) | payer MEDICARE, OTHER, SELFPAY ==
[2024-02-15 11:42] LABS: Absolute Lymphocyte Count 2.24 X10^3/uL (0.83-4.51); Absolute Neutrophil Count 4.8 X10^3/uL (2.0-7.7); Basophil# 0.02 X10^3/uL; Basophil% 0.3 % (0-1); Eosinophil# 0.28 X10^3/uL; Eosinophils% 3.6 % (0-5); Hematocrit 41.9 % (37-47); Hemoglobin 12.7 g/dL (12.0-15.0); Lymphocyte # 2.24 X10^3/ul (0.83-4.51); Lymphocyte % 28.7 % (19-41); Mean Corp Hgb Conc 30.3 g/dL (32-36); Mean Corpuscular Hgb 27.6 pg (27.0-32.0); Mean Corpuscular Volume 91.1 fL (81-99); Mean Platelet Vol. 9.5 fl (6.2-12.0); Monocyte# 0.46 X10^3/uL; Monocyte% 5.9 % (0-10); NRBC Flagged by Analyzer 0 % (0-5); Neutrophil # 4.78 X10^3/uL (2.7-7.7); Neutrophil % 61.1 % (47-70); Platelet Count 252 K/mm3 (150-450); RBC Distribution Width CV 13.4 % (11.6-14.6); RBC Distribution Width SD 45.1 fl (35.1-43.9); White Blood Count 7.8 K/mm3 (4.4-11.0)
[2024-02-15 12:00] LABS: Vitamin D,25 Hydroxy 33.6 ng/mL
[2024-02-15 12:22] LABS: ALB/GLOB Ratio 0.9 RATIO (0.9-2.4); AST(SGOT) 22 U/L (15-37); Alanine Aminotransfer ALT/SGPT 34 U/L (13-56); Albumin, Serum 3.4 g/dL (3.2-5.0); Alkaline Phosphatase 99 U/L (45-117); Anion Gap 8 (5-15); BUN 16 mg/dL (7-18); BUN/Creat Ratio 11.3 RATIO (10-20); Calcium,Total 9.1 mg/dL (8.5-10.1); Chloride 113 mmol/L (98-107); Creatinine, Serum 1.42 mg/dL (0.55-1.02); EST Glomerular Filtration Rate 38 mL/min (>60); Est Glom Filt Rate - Afr Amer 46 mL/min (>60); Globulin 3.8 g/dL (2.2-4.2); Glucose 116 mg/dL (74-106); Potassium 4.1 mmol/L (3.5-5.1); Protein, Total 7.2 g/dL (6.4-8.2); Sodium Level 140 mmol/L (136-145)
== END | disposition home or self-care (01) ==
LOC: POLAB3 09:50
PROVIDERS: Visit Provider Family Medicine Geriatric Medicine
DX: R53.83 Other fatigue (principal); E55.9 Vitamin D deficiency, unspecified
CPT/HCPCS: 36415; 80053; 82306; 84443; 85025

== ENCOUNTER → 2024-03-06 | Outpatient (CLI) | payer MEDICARE, OTHER, SELFPAY ==
--- NOTE | 2024-03-06 12:49 | CT_ITS ---
STUDY: CT CHEST, ABDOMEN T PELVIS WITH CONTRAST REASON FOR EXAM: Female, 78 years old. HX OF RECTAL AND LUNG CA-IV ONLY. History of prior bowel resection. RADIATION DOSAGE (If Supplied By Facility): CTDIvol = ( 12.55 ) mGy, DLP = ( 813.17 ) mGycm TECHNIQUE: Transaxial imaging was performed following intravenous administration of IV 75mL Isovue-370. Multiplanar coronal and sagittal images were reformatted. Individualized dose optimization techniques were used for this CT. COMPARISON: Comparison is made with prior study dated January 30, 2023. FINDINGS: CHEST Hyperinflation. Mild degree of emphysematous changes. No focal infiltrate or mass lesion is seen. There is no demonstrated pleural abnormality. Small pericardial effusion. No coronary calcification is seen. Normal mediastinum. Normal hilar regions. Normal unenhanced pulmonary arteries. Normal aorta arch and descending thoracic aorta. There is demineralization of the thoracic spine. ABDOMEN Normal liver. The patient is status post cholecystectomy. Normal spleen. Prominence of the pancreatic duct down to the insertion into the ampulla of Vater. Stable small bilateral low-density adrenal nodules. Stable small bilateral renal cysts. Nonobstructive right intrarenal calculi are seen. The largest calculus measures 3 mm and is in the lower pole calyx. Nonobstructive left intrarenal calculi. Normal visualized stomach. Normal small intestine. Once again, a colostomy is seen in the left lower anterior abdominal wall. Persistent dilatation of the right hemicolon down to the level of the colostomy. The cecum measures 5.2 cm in transverse dimension. Stable diffuse circumferential thickening of the rectum. Surgical sutures are seen in the region of the cecum. Mild degree of persistent pneumatosis coli in the right hemicolon. There is scattered atherosclerotic calcification of the abdominal aorta, without a demonstrated aneurysm. Normal inferior vena cava. Normal retroperitoneum. Normal abdominal wall. There are mild degenerative changes of the visualized lumbar spine. PELVIS Normal urinary bladder. Patient status post hysterectomy. Normal visualized small intestine. Normal visualized colon. There is no pelvic fluid. There is no pelvic lymphadenopathy or mass lesion. There is diffuse atherosclerotic calcification of the pelvic arteries. CT/CT Chest, Abd, Pel w/Contrast IMPRESSION: Stable examination. Electronically Signed: Chriss Boateng MD at 8:56 EDT ,
== END | disposition home or self-care (01) ==
LOC: CT 12:48
PROVIDERS: PCP Family Medicine Geriatric Medicine; Referring Provider Internal Medicine Medical Oncology; Visit Provider Internal Medicine Medical Oncology
DX: C34.92 Malignant neoplasm of unspecified part of left bronchus or lung (principal); Z85.048 Personal history of other malignant neoplasm of rectum, rectosigmoid junction, and anus
CPT/HCPCS: 71260; 74177; Q9967

== ENCOUNTER → 2024-06-28 | Outpatient (CLI) | payer MEDICARE, OTHER, SELFPAY ==
[2024-06-28 10:22] LABS: Erythrocyte Sedimentation Rate 7 mm/hr (0-30)
[2024-06-28 10:47] LABS: CRP < 2.90 mg/L (0.0-3.0)
== END | disposition home or self-care (01) ==
PROVIDERS: PCP Family Medicine Geriatric Medicine; Referring Provider Internal Medicine Gastroenterology; Visit Provider Internal Medicine Gastroenterology
DX: K50.018 Crohn's disease of small intestine with other complication (principal)
CPT/HCPCS: 36415; 85652; 86140

== ENCOUNTER → 2024-08-16 | Outpatient (CLI) | payer MEDICARE, OTHER, SELFPAY ==
[2024-08-16 11:25] LABS: Absolute Lymphocyte Count 3.04 X10^3/uL (0.83-4.51); Absolute Neutrophil Count 5.5 X10^3/uL (2.0-7.7); Basophil# 0.03 X10^3/uL; Basophil% 0.3 % (0-1); Eosinophil# 0.26 X10^3/uL; Eosinophils% 2.8 % (0-5); Hematocrit 44.6 % (37-47); Hemoglobin 14.2 g/dL (12.0-15.0); Lymphocyte # 3.04 X10^3/ul (0.83-4.51); Lymphocyte % 32.3 % (19-41); Mean Corp Hgb Conc 31.8 g/dL (32-36); Mean Corpuscular Hgb 29.5 pg (27.0-32.0); Mean Corpuscular Volume 92.7 fL (81-99); Mean Platelet Vol. 8.9 fl (6.2-12.0); Monocyte# 0.51 X10^3/uL; Monocyte% 5.4 % (0-10); NRBC Flagged by Analyzer 0 % (0-5); Neutrophil # 5.54 X10^3/uL (2.7-7.7); Neutrophil % 58.9 % (47-70); Platelet Count 242 K/mm3 (150-450); RBC Distribution Width CV 13.8 % (11.6-14.6); RBC Distribution Width SD 47.2 fl (35.1-43.9); Red Blood Count 4.81 M/mm3 (4.2-5.4); White Blood Count 9.4 K/mm3 (4.4-11.0)
[2024-08-16 11:59] LABS: Vitamin D,25 Hydroxy 28.3 ng/mL
[2024-08-16 12:10] LABS: ALB/GLOB Ratio 0.9 RATIO (0.9-2.4); AST(SGOT) 25 U/L (15-37); Alanine Aminotransfer ALT/SGPT 39 U/L (13-56); Albumin, Serum 3.9 g/dL (3.2-5.0); Alkaline Phosphatase 98 U/L (45-117); Anion Gap 6 (5-15); BUN 17 mg/dL (7-18); BUN/Creat Ratio 12.9 RATIO (10-20); Chloride 112 mmol/L (98-107); Creatinine, Serum 1.32 mg/dL (0.55-1.02); EST Glomerular Filtration Rate 41 mL/min (>60); Est Glom Filt Rate - Afr Amer 50 mL/min (>60); Globulin 4.2 g/dL (2.2-4.2); Glucose 95 mg/dL (74-106); Potassium 4.4 mmol/L (3.5-5.1); Protein, Total 8.1 g/dL (6.4-8.2); Sodium Level 138 mmol/L (136-145); Thyroid Stim Hormone (TSH) 0.866 uIU/mL (0.358-3.740)
== END | disposition home or self-care (01) ==
LOC: LAB 11:03
PROVIDERS: PCP Family Medicine Geriatric Medicine; Referring Provider Family Medicine Geriatric Medicine; Visit Provider Family Medicine Geriatric Medicine
DX: R53.83 Other fatigue (principal); E55.9 Vitamin D deficiency, unspecified
CPT/HCPCS: 36415; 80053; 82306; 84443; 85025

== ENCOUNTER → 2024-09-11 | Outpatient (CLI) | payer MEDICARE, OTHER, SELFPAY ==
[2024-09-11 18:12] LABS: Albumin, Serum 3.5 g/dL (3.2-5.0); BUN 17 mg/dL (7-18); Calcium,Total 9.3 mg/dL (8.5-10.1); Chloride 110 mmol/L (98-107); Creatinine, Serum 1.21 mg/dL (0.55-1.02); EST Glomerular Filtration Rate 46 mL/min (>60); Est Glom Filt Rate - Afr Amer 55 mL/min (>60); Glucose 87 mg/dL (74-106); Phosphorus 3.1 mg/dL (2.5-4.9); Potassium 4.7 mmol/L (3.5-5.1); Sodium Level 138 mmol/L (136-145)
[2024-09-11 18:18] LABS: PTHIN 44.3 pg/mL (18.4-80.1)
== END | disposition home or self-care (01) ==
LOC: MTLAB 13:25
PROVIDERS: PCP Family Medicine Geriatric Medicine; Referring Provider Internal Medicine Nephrology; Visit Provider Internal Medicine Nephrology
DX: N18.32 Chronic kidney disease, stage 3b (principal)
CPT/HCPCS: 36415; 80069; 83970

== ENCOUNTER → 2024-12-20 | Outpatient (CLI) | payer MEDICARE, OTHER, SELFPAY ==
--- NOTE | 2024-12-20 09:31 | RAD_ITS ---
EXAM: XR Abdomen, 1 View CLINICAL INDICATION: TECHNIQUE: Frontal supine view of the abdomen/pelvis. COMPARISON: No relevant prior studies available. FINDINGS: GASTROINTESTINAL TRACT: Fecal retention in the colon consistent with constipation. No dilation. ORGANS: Probable right renal calculi measuring up to 5 mm. BONES/JOINTS: Unremarkable. No acute fracture. RAD/Abdomen Single View IMPRESSION: 1. Fecal retention in the colon consistent with constipation. 2. Right nephrolithiasis. Reading Location: [facility]
== END | disposition home or self-care (01) ==
LOC: MTRAD 09:29
PROVIDERS: PCP Family Medicine Geriatric Medicine; Referring Provider Urology; Visit Provider Urology
DX: N20.0 Calculus of kidney (principal)
CPT/HCPCS: 74018

== ENCOUNTER 2024-12-21 13:27 | Observation (INO) | payer MEDICARE, OTHER, SELFPAY ==
[2024-12-21] VITALS (7 sets, daily range): BP systolic 105–148; BP diastolic 60–78; PULSE 78–100; RESP 16–20; TEMP 36.6–37.4; O2SAT 96–100; BMI 22.8; BMI 22.7
--- NOTE | 2024-12-21 13:51 | RAD_ITS ---
PROCEDURE: CHEST PA AND LATERAL REASON FOR EXAM: 79-year-old female, shortness of breath. TECHNIQUE: Frontal and lateral views of the chest. COMPARISON: Same day CT abdomen pelvis. FINDINGS: The heart size is normal. The mediastinal contour is unremarkable. Mild emphysema and scattered areas of scarring. No focal consolidation, pleural effusion or pneumothorax. Degenerative changes are identified within the thoracic spine. RAD/Chest PA and Lateral IMPRESSION: NEGATIVE CHEST Reading Location: [id number]
--- NOTE | 2024-12-21 13:52 | CT_ITS ---
PROCEDURE: ABDOMEN/PELVIS W IV CONT ONLY REASON FOR EXAM: 79-year-old female, abdominal pain. TECHNIQUE: Abdomen and pelvis CT with intravenous contrast. No oral contrast. IV CONTRAST: Administered. COMPARISON: CT chest, abdomen and pelvis 03/06/2024. FINDINGS: Lung bases: Bibasilar atelectasis and scarring, greater in the left lower lung. The heart is normal in size with trace pericardial fluid. Liver: The liver is normal in size with scattered hypodensities, too small to characterize but likely cysts. The major portal veins are patent. No biliary ductal dilation. Gallbladder: Surgically absent. Spleen: Unremarkable. Pancreas: Mild prominence of the pancreatic duct, likely postoperative. Adrenals: Unremarkable. Kidneys: Bilateral renal cysts and additional hypodensities, too small to characterize. Severe right hydroureteronephrosis with large linear calcification within the distal right ureter measuring 21 mm (coronal image 61). Mild left hydroureteronephrosis. Additional bilateral nephrolithiasis. Bilateral renal cortical scarring, [id number]. Bladder: Mildly distended with diffuse bladder wall thickening. Reproductive Organs: Prior hysterectomy. Bowel: Prior colonic resection and anastomosis within the right lower quadrant. Distention of the terminal ileum at site of anastomotic suturing. No dilated bowel loops. Stable colostomy within the left lower quadrant. No pneumoperitoneum. Trace free fluid within the dependent pelvis, unchanged since prior examination. Lymph nodes: No suspicious lymph node enlargement. Vasculature: Calcific plaque throughout the aortoiliac vessels. Bones: Thoracolumbar spondylosis. Bilateral hip arthrosis and patchy areas of osseous demineralization, compatible with prior pelvic radiation. CT/Abdomen/Pelvis W IV Cont ONLY IMPRESSION: 1. Large obstructing right distal ureteral stone with severe hydroureteronephro sis. 2. Additional bilateral nephrolithiasis and mild left hydroureteronephrosis. 3. Prior colonic resection and anastomosis. No dilated bowel loops. One or more dose reduction techniques were used (e.g., Automated exposure contr ol, adjustment of the mA and/or kV according to patient size, use of iterative reconstruction technique). Reading Location: [id number]
--- NOTE | 2024-12-21 13:52 | EKG12_ITS ---
Test Reason : GENERAL Blood Pressure : */* mmHG Vent. Rate : 86 BPM Atrial Rate : 86 BPM P-R Int : 190 ms QRS Dur : 76 ms QT Int : 346 ms P-R-T Axes : 70 2 78 degrees QTcB Int : 414 ms Normal sinus rhythm Normal ECG Confirmed by YESENIA TERRAZAS, SAMANTHA ([id number]), slot editor DYLON ZUNIGA ([id number]) on 12/23/2024 8:20:53 AM Referred By: Confirmed By: SAMANTHA PATTERSON MD
--- NOTE | 2024-12-21 13:59 | EDS_ITS ---
HPI <DANAE Chang - Last Filed: 12/21/24 17:54> History of Present Illness Chief Complaint: Abd Pain Narrative Narrative: Patient is a 79-year-old female with history of Crohn's disease, patient does have a colostomy, COPD, history of UTI, kidney stones, presenting to the emergency department for multiple complaints. Patient states that she is currently dealing with a UTI, she does see urology here. Patient is currently on Macrobid, patient was on Keflex, is now placed on Macrobid. Patient states that she has had decreased output of her colostomy, she did have an x-ray of her abdomen and pelvis for concern for kidney stones. However there is seem to be some discrepancy possibly bowel obstruction. Patient has no significant abdominal pain, no nausea or vomiting. Patient states she does have some decreased output. PFS <DANAE Chang - Last Filed: 12/21/24 17:54> [facility] Medical History (Updated 12/21/24 @ 17:54 by DANAE Chang) 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 calculus group home current use of immunosuppressive drug Crohn's disease Diarrhea Diarrhea Wears hearing aid Wears dentures Cancer Anxiety Thyroid disease Walker as ambulation aid Arthritis Easy bruising TIA (transient ischemic attack) Former smoker COPD (chronic obstructive pulmonary disease) Shortness of breath on exertion History of pain when walking History of echocardiogram History of stress test History of fracture of patella Stage 3b chronic kidney disease (CKD) Osteoporosis Urinary retention Rectal cancer Hydronephrosis Lung cancer Rectal cancer Decreased appetite Abdominal bloating COPD (chronic obstructive pulmonary disease) TIA (transient ischemic attack) Nicotine abuse Depression Anxiety Hypothyroidism COPD exacerbation Chronic bronchitis 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 calculus Hydronephrosis, right Filling defect on imaging study History of rectal cancer Home Medications ?Medication ?Instructions ?Recorded ?Last Taken ?Type bupropion HCl 150 mg 24 hr tablet, 150 mg PO QAM quit smoking 11/28/18 09/27/22 History extended release (Wellbutrin XL) citalopram 40 mg tablet 40 mg PO DAILY Anxiety 04/2409/27/22 History cyanocobalamin (vitamin B-12) 100 mcg IM Q30D Suppleme nt 10/08/19 09/08/22 History 1,000 mcg/mL injection solution cholecalciferol (vitamin D3) 25 25 mcg PO DAILY Supple ment 10/09/21 09/27/22 History mcg (1,000 unit) capsule (Vitamin D3) levothyroxine 88 mcg tablet 88 mcg PO DAILY 12/14/23 U nknown History albuterol sulfate 90 mcg/actuation 2 puff inhalation Q 4H PRN 05/24/24 Unknown Rx aerosol inhaler (Ventolin HFA) shortness of breath or wheezing #18 grams nitrofurantoin 100 mg PO Q12H 12/21/2412/07 History monohydrate/macrocrystals 100 mg capsule potassium chloride 20 mEq 20 meq PO DAILY 12/21/24 History tablet,extended release Allergy/AdvReac Type Severity Reaction Status Date / Time ciprofloxacin (From Cipro) Allergy Rash Verified 12/21/24 13:30 ciprofloxacin HCl (From Allergy Rash Verified 12/21/24 13:30 Cipro) Penicillins Allergy Hives Verified 12/21/24 13:30 codeine AdvReac makes her Verified 12/21/24 13:30 feel weird magnesium citrate AdvReac Nausea Verified 12/21/24 13:30 NSAIDS (Non-Steroidal AdvReac kidney Verified 12/21/24 13:30 Anti-Inflamma damage r/t long-term usage advised not to use Family History Father Heart disease Mother Heart disease Sister Heart disease Diabetes Other Crohn's disease Surgical History History of cystoscopy History of colonoscopy (~10/2019) History of colostomy History of cholecystectomy History of bowel resection History of hysterectomy History of delivery Social History household members: none Smoking Status: Former smoker Tobacco: How many years used: 53 how long ago did patient quit smoking: Quit 2-5 years prior. second hand exposure: No alcohol intake: never substance use type: does not use caffeine: No what type of physical activity do you participate in: none ROS <DANAE Chang - Last Filed: 12/21/24 17:54> ROS ED ROS Narrative Constitutional: Negative for fever, chills, weight loss, weakness Eyes: Negative for vision loss, vision change, double vision ENT: Negative for any sore throat, ear pain, congestion Cardiovascular: Negative for any chest pain, tightness, palpitations Respiratory: Negative for any cough, sputum production, hemoptysis orthopnea. Positive for dyspnea, dyspnea on exertion Gastrointestinal: Negative for any abdominal pain, nausea, vomiting, diarrhea, constipation, blood in stool, blood in vomit. Positive decreased output to the colostomy : Negative for any urinary frequency, dysuria, retention, blood in urine Muscle skeletal: Negative for any neck pain, back pain Neurological: Negative for any headache, syncope, dizziness Skin: Negative for any rashes, itching, abrasions, lacerations Psychiatric: Negative for any depression, anxiety, stress, suicidal ideation, homicidal ideation Hematologic: Negative for any excessive bruising, easy bleeding EXAM <DANAE Chang - Last Filed: 12/21/24 17:54> Physical Exam Narrative Exam Narrative: Vital signs reviewed. HEET: Head normocephalic atraumatic, TMs clear bilaterally. Posterior pharynx is clear, moist mucous membranes. Nares clear bilaterally. Neck: Supple with no lymphadenopathy or tenderness. No signs of meningismus. Cardiac: Regular rate and rhythm no murmurs gallops or rubs, equal peripheral pulses bilaterally. Respiratory: Lungs clear to auscultation bilaterally. No chest tenderness. Abdomen: Soft, nontender, nondistended. No abdominal bruit or pulsatile masses. No hepatosplenomegaly. No peritoneal signs. Patient does have a colostomy, there is small amount of stool in the bag. This is not dark, not bloody. Extremities: No peripheral edema, no signs of gross trauma or deformity. Active full range of motion of all extremities. Neuro: Cranial nerves II through XII intact, no focal neurological deficits. Skin: Clean dry and intact with no rash, purpura, petechiae, vesicles or pustules. Backs/flank: No CVA tenderness, no midline spinal tenderness, no deformity. Psych: Normal mood and affect. No SI, HI or acute psychosis. Const Vital Signs: 12/21/24 13:28 12/21/24 13:30 12/21/24 15:28 Temperature 97.8 F 97.8 F Temperature Source Temporal Temporal Pulse Rate 100 100 82 Respiratory Rate 16 16 16 Blood Pressure 130/73 H 130/73 H 136/60 H Blood Pressure Mean 92 92 85 Pulse Ox 100 100 99 Oxygen Delivery Method Room Air Room Air Room Air 12/21/24 17:00 Temperature Temperature Source Pulse Rate 78 Respiratory Rate 16 Blood Pressure 132/78 H Blood Pressure Mean 96 Pulse Ox 98 Oxygen Delivery Method Room Air Positive well nourished and well developed General Appearance ED: well developed <Dr. Power Saleem DO - Last Filed: 12/21/24 16:28> Physical Exam Const Vital Signs: 12/21/24 13:28 12/21/24 13:30 12/21/24 15:28 Temperature 97.8 F 97.8 F Temperature Source Temporal Temporal Pulse Rate 100 100 82 Respiratory Rate 16 16 16 Blood Pressure 130/73 H 130/73 H 136/60 H Blood Pressure Mean 92 92 85 Pulse Ox 100 100 99 Oxygen Delivery Method Room Air Room Air Room Air 12/21/24 17:00 Temperature Temperature Source Pulse Rate 78 Respiratory Rate 16 Blood Pressure 132/78 H Blood Pressure Mean 96 Pulse Ox 98 Oxygen Delivery Method Room Air MDM <DANAE Chang - Last Filed: 12/21/24 17:54> [facility] Lab Data Labs: Laboratory Results - last 24 hr 12/21/24 12/21/24 13:40 14:05 WBC 10.9 RBC 4.48 Hgb 13.1 Hct 42.2 MCV 94.2 MCH 29.2 MCHC 31.0 L RDW Std Deviation 46.5 H RDW Coeff of Osmar 13.4 Plt Count 218 MPV 9.2 Immature Gran % (Auto) 0.500 Neut % (Auto) 77.8 H Lymph % (Auto) 12.6 L [place] % (Auto) 7.1 Eos % (Auto) 2.0 Baso % (Auto) 0.0 Absolute Neuts (auto) 8.5 H Absolute Lymphs (auto) 1.37 Nucleated RBC % 0 Sodium 139 Potassium 3.5 Chloride 113 H Carbon Dioxide 17.0 L Anion Gap 9 BUN 18 Creatinine 1.47 H Estim Creat Clear Calc 23.42 Est GFR (MDRD) Af Amer 44 L Est GFR (MDRD) Non-Af 36 L BUN/Creatinine Ratio 12.2 Glucose 109 H Calcium 9.5 Total Bilirubin 0.30 AST 11 L ALT 16 Alkaline Phosphatase 102 Troponin I High Sens 8 B-Natriuretic Peptide 89.5 Total Protein 8.4 H Albumin 3.2 Globulin 5.2 H Albumin/Globulin Ratio 0.6 L Lipase 41 L Urine Color Yellow Urine Clarity Sl. Cloudy Urine pH 6.0 Ur Specific Henderson 1.010 Urine Protein 30 H Urine Glucose (UA) Normal Urine Ketones Negative Urine Occult Blood 25 H Urine Nitrite Positive H Urine Bilirubin Negative Urine Urobilinogen Normal Ur Leukocyte Esterase 500 H Urine RBC 0 SEEN Urine WBC >100 SEEN Ur Squamous Epith Cells 0 SEEN Urine Bacteria 0 SEEN Urine Mucus 0 SEEN Radiography Diagnostic Testing: Clinical Impression(s) from Imaging Studies Chest X-Ray 12/21/24 13:51 IMPRESSION: NEGATIVE CHEST Reading Location: [facility] Abdomen/Pelvis CT 12/21/24 13:52 IMPRESSION: 1. Large obstructing right distal ureteral stone with severe hydroureteronephrosis. 2. Additional bilateral nephrolithiasis and mild left hydroureteronephrosis. 3. Prior colonic resection and anastomosis. No dilated bowel loops. One or more dose reduction techniques were used (e.g., Automated exposure control, adjustment of the mA and/or kV according to patient size, use of iterative reconstruction technique). Reading Location: [facility] Treatment and Re-Evaluation :: Differential diagnosis includes however is not limited to: URI symptoms, such as COVID-19 influenza RSV, possible community-acquired pneumonia. Patient differential diagnosis includes however is not limited to: Could also include bowel obstruction, Crohn's flare, viral gastroenteritis Patient appears generally well, vital signs are stable, patient is nontoxic- appearing. Presenting to the emergency department for complaints of shortness of breath on exertion over the last week, feeling fatigued as well as concern for bowel obstruction. Patient will receive a two-view chest x-ray, CT scan of the abdomen pelvis with IV contrast. IV fluids will be given, laboratory values including troponin, BNP will be ordered. All radiologic examinations were read, reviewed by the emergency department attending. From these reads, a plan of care will be put in place.\ Patient CBC was unremarkable, patient's chemistries show a creatinine of 1.47, patient's lipase was 41. Patient's chest x-ray showed no acute patient's COVID- 19 influenza RSV was negative. Urinalysis still showed infection, there is greater than 100 white blood cells, 500 leukocytes, positive nitrites, 25 blood, protein to 30. CT scan of the abdomen pelvis shows a 21 mm large obstructing right distal ureteral stone with severe hydronephrosis. Secondary to this finding, I did reach out to Dr. Morrison who is her urologist. Urine culture was sent, IV Rocephin given. Urologist will accept the patient. I spoke with the patient. All in agreement. Stable for admission. <Dr. Power Saleem, DO - Last Filed: 12/21/24 16:28> [facility] Narrative Medical decision making narrative: I have personally performed a face to face assessment of the patient and have reviewed the VISHNU Note. I performed a substantive portion of the visit including all aspects of the following. My matthew findings include: History is [patient presents to the emergency department complaint of not feeling well. She apparently was seen by Dr. Morrison yesterday and had a urinalysis and also a KUB. She was diagnosed with a urinary tract infection and started on Macrobid. Family states there was concern about her KUB possibly showing a bowel obstruction. Family's concern because she has had less output from her colostomy site. Patient denies nausea or vomiting. She denies recent fever. She denies significant cough. She had an episode of some chest tightness yesterday in the center of cough. She is not currently short of breath or having chest discomfort. Patient does have history of kidney stones and history of Crohn's disease.] Exam is [HEENT-PERRLA, EOMI. Cranial nerves II through XII grossly intact. TMs clear. Mucous membranes moist. No adenopathy. Cardiovascular-regular rate and rhythm without murmur or ectopy Lungs-clear to auscultation, chest wall stable without crepitus or subcu emphysema Abdomen-normoactive bowel sounds, soft, nontender, no rebound or rigidity, no peritoneal signs. Colostomy with minimal output. Abdomen is essentially nontender and not distended. Extremities-intact ?4, normal range of motion, normal pulses, atraumatic] Medical Decison Making [patient presents with concern for possible bowel obstruction. On antibiotics for UTI and she does chronically have UTIs. She sees urologist Dr. Morrison. IV established. CBC with differential, 10.9 with hemoglobin 13.1 platelet count of 218. Chemistries unremarkable. BUN 18 and creatinine 1.47. Urinalysis was positive for greater than 100 WBCs however no bacteria seen she also had [address] scan of the abdomen pelvis obtained showed a large 21 mm right distal ureter stone with severe hydro ureter and hydronephrosis. Will contact urology for definitive care and patient will likely require admission. Patient started on Rocephin IV and urine culture sent] Other additions or changes: [None] Lab Data Attestation: I reviewed the patient's lab results. Labs: Laboratory Results - last 24 hr 12/21/24 12/21/24 13:40 14:05 WBC 10.9 RBC 4.48 Hgb 13.1 Hct 42.2 MCV 94.2 MCH 29.2 MCHC 31.0 L RDW Std Deviation 46.5 H RDW Coeff of Osmar 13.4 Plt Count 218 MPV 9.2 Immature Gran % (Auto) 0.500 Neut % (Auto) 77.8 H Lymph % (Auto) 12.6 L [place] % (Auto) 7.1 Eos % (Auto) 2.0 Baso % (Auto) 0.0 Absolute Neuts (auto) 8.5 H Absolute Lymphs (auto) 1.37 Nucleated RBC % 0 Sodium 139 Potassium 3.5 Chloride 113 H Carbon Dioxide 17.0 L Anion Gap 9 BUN 18 Creatinine 1.47 H Estim Creat Clear Calc 23.42 Est GFR (MDRD) Af Amer 44 L Est GFR (MDRD) Non-Af 36 L BUN/Creatinine Ratio 12.2 Glucose 109 H Calcium 9.5 Total Bilirubin 0.30 AST 11 L ALT 16 Alkaline Phosphatase 102 Troponin I High Sens 8 B-Natriuretic Peptide 89.5 Total Protein 8.4 H Albumin 3.2 Globulin 5.2 H Albumin/Globulin Ratio 0.6 L Lipase 41 L Urine Color Yellow Urine Clarity Sl. Cloudy Urine pH 6.0 Ur Specific Henderson 1.010 Urine Protein 30 H Urine Glucose (UA) Normal Urine Ketones Negative Urine Occult Blood 25 H Urine Nitrite Positive H Urine Bilirubin Negative Urine Urobilinogen Normal Ur Leukocyte Esterase 500 H Urine RBC 0 SEEN Urine WBC >100 SEEN Ur Squamous Epith Cells 0 SEEN Urine Bacteria 0 SEEN Urine Mucus 0 SEEN Radiography Diagnostic Testing: Clinical Impression(s) from Imaging Studies Chest X-Ray 12/21/24 13:51 IMPRESSION: NEGATIVE CHEST Reading Location: [facility] Abdomen/Pelvis CT 12/21/24 13:52 IMPRESSION: 1. Large obstructing right distal ureteral stone with severe hydroureteronephrosis. 2. Additional bilateral nephrolithiasis and mild left hydroureteronephrosis. 3. Prior colonic resection and anastomosis. No dilated bowel loops. One or more dose reduction techniques were used (e.g., Automated exposure control, adjustment of the mA and/or kV according to patient size, use of iterative reconstruction technique). Reading Location: [facility] Discharge Plan Triage Chief Complaint: Abd Pain ED Midlevel Provider: Mitul Charlton ED Provider: Power Saleem Dx/Rx/DC Orders Clinical Impression: Kidney stone, Acute UTI, Hydronephrosis Prescriptions: No Action bupropion HCl [Wellbutrin XL] 150 mg tablet extended release 24 hr 150 mg PO QAM albuterol sulfate [Ventolin HFA] 90 mcg/actuation HFA aerosol inhaler 2 puff inhalation Q4H PRN (Reason: shortness of breath or wheezing) Qty: 18 6RF citalopram 40 MG tablet 40 mg PO DAILY cyanocobalamin (vitamin B-12) 1,000 MCG/ML solution 100 mcg IM Q30D cholecalciferol (vitamin D3) [Vitamin D3] 25 mcg (1,000 unit) Capsule 25 mcg PO DAILY levothyroxine 88 mcg tablet 88 mcg PO DAILY nitrofurantoin monohyd/m-cryst 100 mg capsule 100 mg PO Q12H potassium chloride 20 mEq tablet extended release 20 meq PO DAILY Primary Care Provider: Elliot Kang Chi Referrals: Elliot Kang Chi, MD [Primary Care Provider] - Print Language: Romanian Disposition Disposition: Acute Care Hospital [facility]
[2024-12-21 14:04] LABS: Absolute Lymphocyte Count 1.37 X10^3/uL (0.83-4.51); Absolute Neutrophil Count 8.5 X10^3/uL (2.0-7.7); Eosinophil# 0.22 X10^3/uL; Hematocrit 42.2 % (37-47); Hemoglobin 13.1 g/dL (12.0-15.0); Lymphocyte # 1.37 X10^3/ul (0.83-4.51); Lymphocyte % 12.6 % (19-41); Mean Corpuscular Hgb 29.2 pg (27.0-32.0); Mean Corpuscular Volume 94.2 fL (81-99); Mean Platelet Vol. 9.2 fl (6.2-12.0); Monocyte# 0.77 X10^3/uL; Monocyte% 7.1 % (0-10); NRBC Flagged by Analyzer 0 % (0-5); Neutrophil # 8.48 X10^3/uL (2.7-7.7); Neutrophil % 77.8 % (47-70); Platelet Count 218 K/mm3 (150-450); RBC Distribution Width CV 13.4 % (11.6-14.6); RBC Distribution Width SD 46.5 fl (35.1-43.9); Red Blood Count 4.48 M/mm3 (4.2-5.4); White Blood Count 10.9 K/mm3 (4.4-11.0)
[2024-12-21 14:12] LABS: Bacteria 0 SEEN /hpf (None Seen); Mucous, Urine 0 SEEN /hpf (<or=2+); Squamous Epithelial Cells - UA 0 SEEN /hpf (5-10)
[2024-12-21] MEDS: 0.9% Normal Saline (1000mL) 1,000 ML 999 ML IV (14:13)
[2024-12-21 14:15] LABS: Color, Urine Yellow (Yellow); Glucose, Dipstick Normal (Normal); Ketone-Dipstick Negative (Negative); Leukocyte Esterase-Dipstick 500 /ul (Negative); Nitrite-Dipstick Positive (Negative); Occult Blood-Urine 25 /ul (Negative); Protein-Dipstick 30 mg/dl (Negative); Urine Bilirubin Dipstick Negative (Negative); Urine Clarity Sl. Cloudy (Clear); Urine Urobilinogen Normal (Normal)
[2024-12-21 14:20] LABS: White Blood Cells >100 SEEN /hpf (0-5)
[2024-12-21 14:25] LABS: ALB/GLOB Ratio 0.6 RATIO (0.9-2.4); AST(SGOT) 11 U/L (15-37); Alanine Aminotransfer ALT/SGPT 16 U/L (13-56); Albumin, Serum 3.2 g/dL (3.2-5.0); Alkaline Phosphatase 102 U/L (45-117); Anion Gap 9 (5-15); BUN 18 mg/dL (7-18); BUN/Creat Ratio 12.2 RATIO (10-20); Calcium,Total 9.5 mg/dL (8.5-10.1); Chloride 113 mmol/L (98-107); Creatinine, Serum 1.47 mg/dL (0.55-1.02); EST Glomerular Filtration Rate 36 mL/min (>60); Est Glom Filt Rate - Afr Amer 44 mL/min (>60); Estimated Creatinine Clearance 23.42 ml/min; Globulin 5.2 g/dL (2.2-4.2); Glucose 109 mg/dL (74-106); Lipase 41 U/L (73-393); Potassium 3.5 mmol/L (3.5-5.1); Protein, Total 8.4 g/dL (6.4-8.2); Sodium Level 139 mmol/L (136-145); Troponin-I HS 8 pg/mL (3.0-54.0)
[2024-12-21 14:26] LABS: BNP,B-Type NATRIURETIC PEPTIDE 89.5 pg/mL (0-100)
[2024-12-21 16:29] LABS: Red Blood Cells-Urine 0 SEEN /hpf (0-5)
[2024-12-21] MEDS: Ceftriaxone 1 GM/50 ML BAG IV (16:39)
--- NOTE | 2024-12-21 18:10 | CASEMGMT ---
Care Management Face to Face with patient for initial transition planning/care coordination assessment in the ED.? This typewriter operator automatic introduced self and role at [facility]. Patient alert and oriented. Patient willing to participate in assessment and is able to answer most questions appropriately.? Care providers, pharmacy, and demographics verified. Patient?s daughters Coco and Jessica were also present and also assisted when needed. Admitting Diagnosis: Acute UTI and Large obstructing right distal ureteral stone with severe hydroureteronephrosis. Other diagnosis history: Including but not limited to: Prior colonic resection and anastomosis, Chron?s Disease, Anxiety, Depression, Thyroid Disease, Arthritis, TIA, Stage 3 CKD, Hx of Rectal Cancer, Hx of Lung Cancer, Hypothyroidism, and COPD. PCP: Dr. Kang Specialists: GI: Dr. Tomlinson, Urologist: Dr. Morrison, Fire Protection Designer: Dr. Santos, Oncologist: Dr. Ferrell and Motor And Chassis Inspector: Dr. Wiley. Preferred Pharmacy: [facility] Insurance: Medicare, Part A and B. Prescription Benefit: Yes, through [employer] Living Will/HPOA: ?Yes; DNR.? HPOA is patient?s daughter Jessica. LNOK: Patient is but has 2 daughters, Coco of [place] and Jessica of [place] and 2 sons, Mitul and Nick Britt, both of [place]. Living Arrangements: Patient lives alone in a one story apartment with a basement however patient does not use the basement. Patient has 2 stairs she has to navigate and is not able to do so without assistance due to neuropathy in patient?s feet. Someone is always with patient when patient uses stairs and patient also uses a walker. No other environmental barriers identified. Transportation: Patient?s children provide transportation as needed. DME: Rollator, shower chair, RTS with handles, and a control manager. HHC: No history and patient denied a current need. SNF/Rehab: Patient reported she was in the step-down unit here at [facility] last year for a period of time for rehab. Community Resources: ?Denied and denied a current need. Behavioral Health History: Patient has a history of depression and anxiety, is on medication to treat both and patient reported effective management of symptoms at this time. Patient goals: Patient wishes to discharge home, denies need for home health care at this time. Patient denies any further needs or concerns at this time. Disposition Plan: admission to acute; RN CM/SW to follow for discharge planning needs that may arise. Venecia Coleman, MIDDLE OR INTERMEDIATE SCHOOL PRINCIPAL, PARTS ADVISOR
[2024-12-21] MEDS: Acetaminophen 500 MG Tablet 1000 MG PO (18:57)
[2024-12-22] VITALS (10 sets, daily range): BP systolic 103–147; BP diastolic 58–75; PULSE 68–85; RESP 16–18; TEMP 36–36.5; O2SAT 93–99; BMI 22.7
[2024-12-22 01:55] LABS: Thyroid Stim Hormone (TSH) 0.075 uIU/mL (0.358-3.740)
[2024-12-22] MEDS: Ketorolac 15 MG/ML Vial IV (02:24)
[2024-12-22] MEDS: 0.9% Saline Lock 10 ML Syringe IV (02:24)
[2024-12-22] MEDS: Levothyroxine 88 MCG Tablet PO (05:58)
--- NOTE | 2024-12-22 07:20 | PCM.HP.STD ---
HPI - General General Date of Admission: 12/21/24 Date of Service: 12/22/24 Chief Complaint: Abdominal pain and bloating HPI Narrative JOSE DE JESUS GOLD, is a 79 F who I saw in the office on December 20 with vague symptoms of abdominal discomfort and urine was infected. She was started on antibiotics at that time and the plan was to proceed with CT scan if her discomfort continued despite antibiotic coverage. She subsequently reported to the emergency room on December 21 with abdominal discomfort. She was evaluated with a CT scan and found to have a distal obstructing right ureteral calculus approximately 2 cm in size. 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 Crohn's disease Diarrhea Diarrhea Wears hearing aid Wears dentures Cancer Anxiety Thyroid disease Walker as ambulation aid Arthritis Easy bruising TIA (transient ischemic attack) Former smoker COPD (chronic obstructive pulmonary disease) Shortness of breath on exertion History of pain when walking History of echocardiogram History of stress test History of fracture of patella Stage 3b chronic kidney disease (CKD) Osteoporosis Urinary retention Rectal cancer Hydronephrosis Lung cancer Rectal cancer Decreased appetite Abdominal bloating COPD (chronic obstructive pulmonary disease) TIA (transient ischemic attack) Nicotine abuse Depression Anxiety Hypothyroidism COPD exacerbation Chronic bronchitis 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 calculus Hydronephrosis, right Filling defect on imaging study History of rectal cancer Home Medications ?Medication ?Instructions ?Recorded ?Last Taken ?Type bupropion HCl 150 mg 24 hr tablet, 150 mg PO QAM quit smoking 11/28/18 12/21/24 History extended release (Wellbutrin XL) citalopram 40 mg tablet 40 mg PO DAILY Anxiety 04/24/19 12/21/24 History cyanocobalamin (vitamin B-12) 100 mcg IM Q30D Supplement 10/08/19 12/11/24 History 1,000 mcg/mL injection solution cholecalciferol (vitamin D3) 25 25 mcg PO DAILY Supplement 10/09/21 12/21/24 History mcg (1,000 unit) capsule (Vitamin D3) levothyroxine 88 mcg tablet 88 mcg PO DAILY 12/14/23 12/21/24 History albuterol sulfate 90 mcg/actuation 2 puff inhalation Q4H PRN 05/24/24 12/21/24 Rx aerosol inhaler (Ventolin HFA) shortness of breath or wheezing #18 grams nitrofurantoin 100 mg PO Q12H 12/21/24 12/21/24 History monohydrate/macrocrystals 100 mg capsule potassium chloride 20 mEq 20 meq PO DAILY 12/21/24 12/20/24 History tablet,extended release Allergy/AdvReac Type Severity Reaction Status Date / Time ciprofloxacin (From Cipro) Allergy Rash Verified 12/21/24 13:30 ciprofloxacin HCl (From Allergy Rash Verified 12/21/24 13:30 Cipro) Penicillins Allergy Hives Verified 12/21/24 13:30 codeine AdvReac makes her Verified 12/21/24 13:30 feel weird magnesium citrate AdvReac Nausea Verified 12/21/24 13:30 NSAIDS (Non-Steroidal AdvReac kidney Verified 12/21/24 13:30 Anti-Inflamma damage r/t long-term usage advised not to use Family History Father Heart disease Mother Heart disease Sister Heart disease Diabetes Other Crohn's disease Surgical History History of cystoscopy History of colonoscopy (~10/2019) History of colostomy History of cholecystectomy History of bowel resection History of hysterectomy History of delivery Social History household members: none Smoking Status: Former smoker Tobacco: How many years used: 53 how long ago did patient quit smoking: Quit 2-5 years prior. second hand exposure: No alcohol intake: never substance use type: does not use caffeine: No what type of physical activity do you participate in: none ROS Constitutional Constitutional: Reports chills; Denies body ache(s) or fever(s) Eyes Eyes: Reports systems reviewed and no addt'l complaints, except as documented ENT HEENT: Reports systems reviewed and no addt'l complaints, except as documented Cardiovascular Cardiovascular: Denies chest pain, diaphoresis or dyspnea Respiratory/Chest Respiratory/Chest: Denies cough, dyspnea or inability to speak Gastrointestinal Gastrointestinal: Reports abdominal pain, bloating and cramping Genitourinary Genitourinary: Reports abdominal discomfort and urinary urgency; Denies difficulty urinating, flank pain or hematuria Musculoskeletal Musculoskeletal: Reports systems reviewed and no addt'l complaints, except as documented Integumentary Integumentary: Reports systems reviewed and no addt'l complaints, except as documented Neurologic Neurologic: Reports systems reviewed and no addt'l complaints, except as documented Psychiatric Psychiatric: Reports systems reviewed and no addt'l complaints, except as documented Endocrine Endocrinology: Reports systems reviewed and no addt'l complaints, except as documented Hematologic/Lymphatic Hematologic/Lymphatic: Reports systems reviewed and no addt'l complaints, except as documented Allergic/Immunologic Allergic/Immunologic: Reports systems reviewed and no addt'l complaints, except as documented Vital Signs Vital Signs Vital Signs: 12/21/24 13:28 12/21/24 13:30 12/21/24 15:28 Temperature 97.8 F 97.8 F Temperature Source Temporal Temporal Pulse Rate 100 100 82 Pulse Strength Respiratory Rate 16 16 16 Blood Pressure 130/73 H 130/73 H 136/60 H Blood Pressure Mean 92 92 85 Blood Pressure Source Blood Pressure Position Blood Pressure Location Pulse Ox 100 100 99 Oxygen Delivery Method Room Air Room Air Room Air 12/21/24 17:00 12/21/24 17:51 12/21/24 18:45 Temperature 99.4 F H 98.3 F Temperature Source Oral Pulse Rate 78 89 94 Pulse Strength Respiratory Rate 16 18 20 H Blood Pressure 132/78 H 124/67 H 148/75 H Blood Pressure Mean 96 86 99 Blood Pressure Source Monitor Blood Pressure Position Semi-Fowlers Blood Pressure Location Right Arm Pulse Ox 98 98 97 Oxygen Delivery Method Room Air Room Air 12/21/24 21:14 12/21/24 22:27 12/22/24 07:02 Temperature 98.3 F 97.7 F L Temperature Source Oral Oral Pulse Rate 81 85 Pulse Strength Normal (2+) Respiratory Rate 16 16 Blood Pressure 105/63 147/58 H Blood Pressure Mean 77 87 Blood Pressure Source Monitor Monitor Blood Pressure Position Semi-Fowlers Semi-Fowlers Blood Pressure Location Left Arm Left Arm Pulse Ox 96 98 Oxygen Delivery Method Room Air Room Air Weight Weight: 54.6 kg Body Mass Index (BMI) 22.7 Physical Exam Const alert, oriented x3 and no apparent distress General Appearance: cooperative, well kempt and well developed HEENT normocephalic, head/scalp atraumatic, hearing grossly normal bilaterally, external ears normal, external nose normal and moist oral mucous membranes Eyes General Eye: normal appearance of both eyes Neck supple General: normal visual inspection and trachea midline Lymph Lymphatic: no lymphedema noted Chest inspection of chest normal Chest: symmetrical chest wall rise Resp normal respiratory effort, normal air movement, no retractions and no use of accessory muscles Cardio regular rate and regular rhythm GI soft to palpation Inspection: abdominal distention Palpation: soft; Negative for guarding no CVA tenderness Back/Spine no CVA tenderness Extremity normal to inspection Skin no rashes or lesions noted, no wounds, no jaundice, no petechiae and no mottling Neuro oriented x3, CN's II-XII intact bilaterally and moves all extremities Psych mental status grossly normal, thought process normal, cooperative and affect normal Results Lab / Micro Data 12/21/24 13:40 12/21/24 13:40 Labs: Laboratory Results - last 24 hr 12/21/24 13:40: WBC 10.9, RBC 4.48, Hgb 13.1, Hct 42.2, MCV 94.2, MCH 29.2, MCHC 31.0 L, RDW Std Deviation 46.5 H, RDW Coeff of Osmar 13.4, Plt Count 218, MPV 9.2, Immature Gran % (Auto) 0.500, Neut % (Auto) 77.8 H, Lymph % (Auto) 12.6 L, [place] % (Auto) 7.1, Eos % (Auto) 2.0, Baso % (Auto) 0.0, Absolute Neuts (auto) 8.5 H, Absolute Lymphs (auto) 1.37, Nucleated RBC % 0, Sodium 139, Potassium 3.5, Chloride 113 H, Carbon Dioxide 17.0 L, Anion Gap 9, BUN 18, Creatinine 1.47 H, Estim Creat Clear Calc 23.42, Est GFR (MDRD) Af Amer 44 L, Est GFR (MDRD) Non-Af 36 L, BUN/Creatinine Ratio 12.2, Glucose 109 H, Calcium 9.5, Total Bilirubin 0.30, AST 11 L, ALT 16, Alkaline Phosphatase 102, Troponin I High Sens 8, B-Natriuretic Peptide 89.5, Total Protein 8.4 H, Albumin 3.2, Globulin 5.2 H, Albumin/Globulin Ratio 0.6 L, Lipase 41 L, TSH 0.075 L 12/21/24 14:05: Urine Color Yellow, Urine Clarity Sl. Cloudy, Urine pH 6.0, Ur Specific [place] 1.010, Urine Protein 30 H, Urine Glucose (UA) Normal, Urine Ketones Negative, Urine Occult Blood 25 H, Urine Nitrite Positive H, Urine Bilirubin Negative, Urine Urobilinogen Normal, Ur Leukocyte Esterase 500 H, Urine RBC 0 SEEN, Urine WBC >100 SEEN, Ur Squamous Epith Cells 0 SEEN, Urine Bacteria 0 SEEN, Urine Mucus 0 SEEN Micro: Microbiology 12/21/24 13:55 Mucosa - Nose SARS-CoV-2, Influenza & RSV (PCR) - Final Imaging Radiology Impression Chest X-Ray 12/21/24 13:51 IMPRESSION: NEGATIVE CHEST Reading Location: [facility] Abdomen/Pelvis CT 12/21/24 13:52 IMPRESSION: 1. Large obstructing right distal ureteral stone with severe hydroureteronephrosis. 2. Additional bilateral nephrolithiasis and mild left hydroureteronephrosis. 3. Prior colonic resection and anastomosis. No dilated bowel loops. One or more dose reduction techniques were used (e.g., Automated exposure control, adjustment of the mA and/or kV according to patient size, use of iterative reconstruction technique). Reading Location: [facility] Assessment & Plan Assessment/Plan (1) Hydronephrosis: (2) Acute UTI: (3) Kidney stone: (4) Ureteral calculus: PLAN: Plan Cystoscopy with right ureteral stent insertion today Home on continued antibiotic coverage Plan for stone treatment in a few weeks
--- NOTE | 2024-12-22 07:36 | OP.PCM_ITS ---
Problems Associated Problem List Diagnoses (1) Kidney stone: Operative Report (Standard) Operative Information Date of Procedure: 12/22/24 Pre-Operative Diagnosis: 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 calculus with hydronephrosis, UTI Post-Operative Diagnosis: Same Surgery/Procedure Performed: Cystoscopy with right ureteral stent insertion endocrinology specialist: No Type of Anesthesia: MAC RN Documented Start/Stop Times: Operation Date: 12/22/24 07:40 Case Time Anesthesia Start 12/22/24 07:37 Into Room 12/22/24 07:37 Procedure Start 12/22/24 07:46 Procedure End 12/22/24 07:56 Procedure Start Time: 07:46 Procedure Stop Time: 07:56 Select all DRAINS/GRAFTS/IMPLANTS that apply: Drains Drain details: 6 Mauritanian by 22 cm JJ stent Estimated Blood Loss: <5cc Specimen collected: No Description of surgery: The patient is a 79-year-old female with a large obstructing distal right ureteral calculus who presents for cystoscopy and stent insertion. Informed consent was obtained. She was taken to the operating room placed on the operating room table. Anesthesia monitored the head, neck, airway, IV access an d vital signs throughout the case. Once anesthesia was appropriately administered, she was placed into dorsolithotomy position was prepped and draped in usual sterile fashion. The cystoscope was inserted through the urethra under direct visualization into the urinary bladder. The right ureteral orifice was identified and carefully intubated with a 0.035 Glidewire which advanced into the renal pelvis. A 6 Mauritanian 22 cm JJ stent was placed over the wire with good positioning in the renal pelvis and the urinary bladder. The bladder was emptied and the cystoscope was removed. She was awakened and taken to the recovery room in good condition. There were no complications during the procedure. Surgical Findings: 6 x 22 cm JJ stent Complications Complications: No Admit VTE Documentation VTE Present on Admission: Yes VTE Mechan Device Prophylaxis: SCD's VTE Pharm Prophylaxis ordered?: No Reason prophylaxis not ordered: Treatment Not Indicated
--- NOTE | 2024-12-22 07:39 | DCINST_ITS ---
Discharge Instructions Diet Discharge Diet: No restrictions Activity Discharge Activity: Return to Normal Activity Dressing / Incision Call your doctor if you observe: Fever of 101 or Higher, Inability to urinate and Inability to have a bowel movement Follow Up Care Please Follow Up With: Minal Morrison MD When: The office will call to make arrangements Test Results: Test results from this visit will be discussed in further detail at your follow- up appointment, if applicable. Discharge Plan Admission Admit Date/Time: 12/21/24 20:27 Attending Provider: Minal Morrison Primary Care Provider: Elliot Kang Chi Discharge Orders/Prescriptions Prescriptions: New oxycodone-acetaminophen 5-325 mg tablet 1 tab PO Q8H PRN (Reason: pain) 3 Days Qty: 10 0RF Continued bupropion HCl [Wellbutrin XL] 150 mg tablet extended release 24 hr 150 mg PO QAM albuterol sulfate [Ventolin HFA] 90 mcg/actuation HFA aerosol inhaler 2 puff inhalation Q4H PRN (Reason: shortness of breath or wheezing) Qty: 18 6RF citalopram 40 MG tablet 40 mg PO DAILY cyanocobalamin (vitamin B-12) 1,000 MCG/ML solution 100 mcg IM Q30D cholecalciferol (vitamin D3) [Vitamin D3] 25 mcg (1,000 unit) Capsule 25 mcg PO DAILY levothyroxine 88 mcg tablet 88 mcg PO DAILY nitrofurantoin monohyd/m-cryst 100 mg capsule 100 mg PO Q12H potassium chloride 20 mEq tablet extended release 20 meq PO DAILY Referrals / Follow Up: Elliot Kang Chi, MD [Primary Care Provider] - Disposition Disposition (needs filled in before D/C Order can be placed): Home, Self Care
[2024-12-22] MEDS: Cefazolin 2 GM in Syringe IV (07:40)
--- NOTE | 2024-12-22 08:04 | PCM.PRE.AN2 ---
ASA Classification* ASA Classification ASA Classification: 3 Assessment & Plan Anesthesia* Anesthesia Assessment Anesthesia Assessment: Discussed sedation and/or anesthesia options, risks, benefits, and alternatives with patient/parents/legal guardian/POA. Questions invited. The patient/parents/legal guardian/POA seems to understand and agrees to proceed with anesthesia plan. Reviewed the physical assessment, medical history, allergy history and patient home medications list prior to surgery/procedure/anesthetic and documented any changes. Performed airway and anesthesia risk assessments. Anesthesia Type Anesthesia Type: MAC History Source History Obtained from:: Patient Anesthesia Focused Assessment* Temperature: 97.7 F Pulse Rate: 85 Blood Pressure: 147/58 Respiratory Rate: 16 Pulse Ox: 98 Oxygen Delivery Method: Room Air Airway Assessment Mouth opens: 1 cm Mallampati Score: I Teeth Condition: Dentures Neck Range of motion (ROM): Full ROM Focused Labs Anesthesia Preop lab: CBC WBC 10.9 K/mm3 (4.4-11.0) 12/21/24 13:40 12/21/24 RBC 4.48 M/mm3 (4.2-5.4) 12/21/24 13:40 12/21/24 Hgb 13.1 g/dL (12.0-15.0) 12/21/24 13:40 12/21/24 Hct 42.2 % (37-47) 12/21/24 13:40 12/21/24 Plt Count 218 K/mm3 (150-450) 12/21/24 13:40 12/21/24 CHEMISTRY Potassium 3.5 mmol/L (3.5-5.1) 12/21/24 13:40 12/21/24 Sodium 139 mmol/L (136-145) 12/21/24 13:40 12/21/24 Magnesium 2.1 mg/dL (1.6-2.6) 08/29/22 04:22 08/29/22 Phosphorus 3.1 mg/dL (2.5-4.9) 09/11/24 13:26 09/11/24 BUN 18 mg/dL (7-18) 12/21/24 13:40 12/21/24 Creatinine 1.47 mg/dL (0.55-1.02) H 12/21/24 13:40 12/21/24 Glucose 109 mg/dL (74-106) H 12/21/24 13:40 12/21/24 POC Glucose 88 mg/dL (70-110) 02/05/18 12:01 02/05/18 TSH 0.075 uIU/mL (0.358-3.740) L 12/21/24 13:40 12/21/24 COAG PT 17.2 SECONDS (11.7-14.9) H 09/28/22 10:39 09/28/22 Pre-Assessment Diagnosis/Proposed Procedure Planned Operative Procedure(s): cysto stent Anesthesia History Anesthesia History - personal protection specialist: Anesthesia History - personal protection specialist Hx Hospitalization Yes: TCU NOW 10/12/22 11:53 Any Problems With Anesthesia No 12/21/24 21:15 Cholinesterase deficiency No 12/21/24 21:15 You/Your Family Experience No 12/21/24 21:15 fever (hyperthermia) with Relationship Recent Exposure to Contagious No 12/21/24 21:15 Disease Does patient have nerve No 12/21/24 21:15 stimulator Patient instructed to have No 12/21/24 21:15 device shut off --Does patient have Pacemaker No 12/22/24 05:59 or ICD? When Was Last Pacemaker Check QUESTION #4 FULL TEXT: You/Your Family Experience fever (hyperthermia) with Anesthesia Any additional information?: No Last Oral Intake Last Oral intake: Last Oral Intake NPO since 00:00 12/22/24 05:59 Meds taken in AM with sips of Yes 12/22/24 05:59 water? Meds patient instructed to synthroid 12/22/24 05:59 take am of surgery Any additional information?: No PONV PONV - personal protection specialist: PONV - personal protection specialist Female HX of Motion Sickness HX of N/V After Surgery Non-Smoker Duration of Surgery greater than 60 minutes Number of Risk Factors PONV Score Any additional information?: No Height & Weight Height & Weight: Anesthesia: Height & Weight Height 5 ft 1 in 12/22/24 05:59 Weight: 54.6 kg 12/22/24 05:59 Body Mass Index (BMI) 22.7 12/22/24 05:59 Respiratory Assessment Respiratory Assessment - personal protection specialist: Respiratory Tract Infection Hx - personal protection specialist Hx Respiratory Tract Infection No 12/21/24 21:15 Any additional information?: No STOP Sleep Apnea STOP Sleep Apnea - personal protection specialist: STOP Sleep Apnea - personal protection specialist Hx Hypertension No 12/21/24 18:32 Hx Sleep Apnea No 12/21/24 18:32 CPAP No 10/12/22 11:53 BIPAP No 10/12/22 11:53 Do you snore loudly (louder No 12/21/24 18:32 than talking or can be heard Do you often feel tired/ No 12/21/24 18:32 fatigued/ sleepy during daytime? Has anyone observed you stop No 12/21/24 18:32 breathing during sleep? STOP Results Negative 12/21/24 18:32 QUESTION #5 FULL TEXT : Do you snore loudly (louder than talking or can be heard through closed doors)? Any additional information?: No Tobacco Use History Tobacco Use History - personal protection specialist: Tobacco Use History - personal protection specialist Tobacco Use Smoking Status Former smoker 12/21/24 18:32 Hx Tobacco Use No 12/21/24 18:32 Years Smoking Packs Smoked per Day Smoking Cessation Date was Yes - quit smoking within 15 12/21/24 18:32 within the last 15 years years Hx Smoking Cessation Date 08/10/17 12/21/24 18:32 Hx Smoking Cessation No 12/21/24 18:32 Counseling Any additional information?: No Hematologic Medial History Hematologic Hx - personal protection specialist: Hematologic 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 Specify any problems Hx of Preganancy in last 3 N/A 12/21/24 18:32 Months Nurse Filling Out Transfusion [id number] 12/21/24 18:32 & Questions: Date: 12/21/24 12/21/24 18:32 Time: 18:35 12/21/24 18:32 Patient unable to answer at this time (ie. confused, unrespo Any additional information?: No /Reproduction History /Reproductive History - personal protection specialist: /Reproductive Hx- personal protection specialist Hx Now No 12/21/24 21:15 Gestational Age (in weeks): EDC: Hx Hx Para Hx Section SAB No 10/12/22 11:53 Any additional information?: No Active Medications Active Medications: Current Medications Generic Name Dose Route Start Last Admin Trade Name Freq PRN Reason Stop Dose Admin Albuterol Sulfate 2.5 mg 12/21/24 20:38 Albuterol 2.5 Mg/3 Ml Vial.Neb. INHALATION Q4H PRN PRN shortness of breath/wheezing Bupropion HCl 150 mg 12/22/24 10:00 Bupropion (Xl) 150 Mg Tablet.Xl PO QAM PRIMO Citalopram Hydrobromide 40 mg 12/22/24 10:00 Citalopram 40 Mg Tablet PO DAILY PRIMO Sodium Chloride 100 mls @ 15 mls/hr 12/21/24 18:38 IV .Q6H40M PRN Saline Flush Sodium Chloride 100 mls @ 15 mls/hr 12/21/24 18:38 IV .Q6H40M PRN Additional IVPB Infusion Ketorolac Tromethamine 15 mg 12/21/24 20:32 12/22/24 02:24 Ketorolac 15 Mg/Ml Vial IV 12/26/24 20:33 15 mg Q8H PRN PRN Administration Pain Score 1-10 Levothyroxine Sodium 88 mcg 12/22/24 06:00 12/22/24 05:58 Levothyroxine 88 Mcg Tablet PO 88 mcg DAILY@0600 PRIMO Administration Morphine Sulfate 2 - 4 mg 12/21/24 20:32 Morphine 2 Mg/Ml Syringe IV Q3H PRN PRN Pain Score 6-10 Morphine Sulfate 2 - 4 mg 12/21/24 21:05 Morphine 4 Mg/Ml Syringe IV Q3H PRN PRN Pain Score 6-10 Ondansetron HCl 4 mg 12/21/24 20:27 Ondansetron 4 Mg/2 Ml Vial IV Q8H PRN PRN NAUSEA/VOMITING Oxycodone HCl 5 mg 12/21/24 20:32 Oxycodone 5 Mg Tablet PO Q4H PRN PRN Pain Score 4-10 Potassium Chloride 20 meq 12/22/24 08:00 Potassium Chloride Oral Tablet 20 Meq PO DAILYCM PRIMO Sodium Chloride 10 - 40 ml 12/21/24 18:38 12/22/24 02:24 0.9% Saline Lock 10 Ml Syringe IV 10 ml UD PRN Administration SALINE FLUSH PFSH Medical History 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 calculus [facility] current use of immunosuppressive drug Crohn's disease Diarrhea Diarrhea Wears hearing aid Wears dentures Cancer Anxiety Thyroid disease Walker as ambulation aid Arthritis Easy bruising TIA (transient ischemic attack) Former smoker COPD (chronic obstructive pulmonary disease) Shortness of breath on exertion History of pain when walking History of echocardiogram History of stress test History of fracture of patella Stage 3b chronic kidney disease (CKD) Osteoporosis Urinary retention Rectal cancer Hydronephrosis Lung cancer Rectal cancer Decreased appetite Abdominal bloating COPD (chronic obstructive pulmonary disease) TIA (transient ischemic attack) Nicotine abuse Depression Anxiety Hypothyroidism COPD exacerbation Chronic bronchitis 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 calculus Hydronephrosis, right Filling defect on imaging study History of rectal cancer Home Medications ?Medication ?Instructions ?Recorded ?Last Taken ?Type bupropion HCl 150 mg 24 hr tablet, 150 mg PO QAM quit smoking 11/28/18 12/21/24 History extended release (Wellbutrin XL) citalopram 40 mg tablet 40 mg PO DAILY Anxiety 04/24/19 12/21/24 History cyanocobalamin (vitamin B-12) 100 mcg IM Q30D Supplement 10/08/19 12/11/24 History 1,000 mcg/mL injection solution cholecalciferol (vitamin D3) 25 25 mcg PO DAILY Supplement 10/09/21 12/21/24 History mcg (1,000 unit) capsule (Vitamin D3) levothyroxine 88 mcg tablet 88 mcg PO DAILY 12/14/23 12/21/24 History albuterol sulfate 90 mcg/actuation 2 puff inhalation Q4H PRN 05/24/24 12/21/24 Rx aerosol inhaler (Ventolin HFA) shortness of breath or wheezing #18 grams nitrofurantoin 100 mg PO Q12H 12/21/24 12/21/24 History monohydrate/macrocrystals 100 mg capsule potassium chloride 20 mEq 20 meq PO DAILY 12/21/24 12/20/24 History tablet,extended release oxycodone-acetaminophen 5 mg-325 1 tab PO Q8H PRN pain 3 days #10 12/22/24 Unknown Rx mg tablet tabs Allergy/AdvReac Type Severity Reaction Status Date / Time ciprofloxacin (From Cipro) Allergy Rash Verified 12/21/24 13:30 ciprofloxacin HCl (From Allergy Rash Verified 12/21/24 13:30 Cipro) Penicillins Allergy Hives Verified 12/21/24 13:30 codeine AdvReac makes her Verified 12/21/24 13:30 feel weird magnesium citrate AdvReac Nausea Verified 12/21/24 13:30 NSAIDS (Non-Steroidal AdvReac kidney Verified 12/21/24 13:30 Anti-Inflamma damage r/t long-term usage advised not to use Family History Father Heart disease Mother Heart disease Sister Heart disease Diabetes Other Crohn's disease Surgical History History of cystoscopy History of colonoscopy (~10/2019) History of colostomy History of cholecystectomy History of bowel resection History of hysterectomy History of delivery Social History household members: none Smoking Status: Former smoker Tobacco: How many years used: 53 how long ago did patient quit smoking: Quit 2-5 years prior. second hand exposure: No alcohol intake: never substance use type: does not use caffeine: No what type of physical activity do you participate in: none Review of Systems (Anesthesia) ROS Narrative System reviewed and no additional complaints, except as documented. Physical Exam Const alert and oriented x3 Orientation / Consciousness: awake Resp normal respiratory effort, normal air movement and clear to auscultation bilaterally Auscultation: clear to auscultation bilaterally Cardio regular rate and regular rhythm Neuro oriented x3
--- NOTE | 2024-12-22 08:07 | PCM.POST.ANE ---
Anesthesia: Postop Eval I Current Vital Signs Temperature: 96.8 F Pulse Rate: 68 Blood Pressure: 103/60 Respiratory Rate: 18 Pulse Ox: 97 Oxygen Delivery Method: Room Air Assessment Airway patent: Yes Spontaneous unlabored respirations: Yes Mental status: Awake and Calm nausea: No Vomiting: No Anesthesia Complication: No Fluid Hydration Crystalloid volume administer (ml): 50 Total IV fluid infused: 50 Progress Note Anesthesia document: Postop Eval 1 completed: Yes
--- NOTE | 2024-12-22 08:16 | POSTOPAN2_ITS ---
Anesthesia Postop Eval I Sum Postop Eval Completion status Anesthesia document: Postop Eval 1 completed: Yes Anesthesia Postop Eval I Summary Anesthesia Postop Eval I Summary: Anesthesia Postop Eval I: Assessment Summary Airway patent Yes 12/22/24 08:08 [email or web address] Spontaneous unlabored Yes 12/22/24 08:08 ROPE [email or web address] respirations Mental status Awake,Calm 12/22/24 08:08 ROPE [email or web address] nausea No 12/22/24 08:08 ROPE [email or web address] Vomiting No 12/22/24 08:08 [email or web address] Anesthesia Postop Eval I: Fluid Summary Crystalloid volume administer 50 12/22/24 08:08 [email or web address] (ml) Colloids volume administered ( ml) Blood Product volume administered (ml) Total IV fluid infused 50 12/22/24 08:08 [email or web address] Anesthesia Postop Eval I: Summary Notes Anesthesia Complication No 12/22/24 08:08 [email or web address] Anesthesia Complication Comment: Post-operative progress note Anesthesia: Postop Eval II Evaluation Mental status: Awake and Calm Pain Level: 0 nausea: No Vomiting: No Complications Anesthesia Complication: No
--- NOTE | 2024-12-22 08:16 | PCM.POSTANE2 ---
Anesthesia Postop Eval I Sum Postop Eval Completion status Anesthesia document: Postop Eval 1 completed: Yes Anesthesia Postop Eval I Summary Anesthesia Postop Eval I Summary: Anesthesia Postop Eval I: Assessment Summary Airway patent Yes 12/22/24 08:08 [email or web address] [email or web address] Spontaneous unlabored Yes 12/22/24 08:08 CLOTH [email or web address] respirations Mental status Awake,Calm 12/22/24 08:08 [email or web address] nausea No 12/22/24 08:08 CLOTH [email or web address] Vomiting No 12/22/24 08:08 CLOTH [email or web address] Anesthesia Postop Eval I: Fluid Summary Crystalloid volume administer 50 12/22/24 08:08 CLOTH [email or web address] (ml) Colloids volume administered ( ml) Blood Product volume administered (ml) Total IV fluid infused 50 12/22/24 08:08 CLOTH [email or web address] Anesthesia Postop Eval I: Summary Notes Anesthesia Complication No 12/22/24 08:08 CLOTH [email or web address] Anesthesia Complication Comment: Post-operative progress note Anesthesia: Postop Eval II Evaluation Mental status: Awake and Calm Pain Level: 0 nausea: No Vomiting: No Complications Anesthesia Complication: No
[2024-12-22] MEDS: Potassium Chloride Oral Tablet 20 MEQ PO (08:46)
[2024-12-22] MEDS: Citalopram 40 MG TABLET PO (08:46)
[2024-12-22] MEDS: buPROPion (XL) 150 MG TABLET.XL PO (08:46)
== END 2024-12-22 12:19 | disposition home or self-care (01) ==
LOC: ED 18:02 → MS3 18:18
PROVIDERS: Anesthesiology; Nurse Practitioner; Admitting Provider Urology; Emergency Provider Emergency Medicine; PCP Family Medicine Geriatric Medicine; Visit Provider Urology
PROC: (CPT 52332; principal; 2024-12-22 07:30)
DX: N13.6 Pyonephrosis (principal); Z93.3 Colostomy status; K50.90 Crohn's disease, unspecified, without complications; J44.9 Chronic obstructive pulmonary disease, unspecified; N18.32 Chronic kidney disease, stage 3b; Z87.891 Personal history of nicotine dependence; Z79.890 Hormone replacement therapy; R14.0 Abdominal distension (gaseous); E03.9 Hypothyroidism, unspecified; Z79.899 Other long term (current) drug therapy
CPT/HCPCS: 52332; 00910; 36592; 71046; 74177; 76000; 80053; 81001; 83690; 83880; 84443; 84484; 85025; 87077; 87086; 87088; 87186; 87631; 93005; 96365; 96375; 99221; 99284; Q9967; A4216; C2625; G0378; J2405

== ENCOUNTER 2025-01-06 14:30 | Observation (INO) | payer MEDICARE, OTHER, SELFPAY ==
[2025-01-06 14:31] VITALS: BP 135/77; PULSE 95; RESP 16; TEMP 36.9; O2SAT 96
[2025-01-06 14:34] VITALS: BMI 21.5
[2025-01-06 16:25] LABS: Bacteria 0 SEEN /hpf (None Seen); Mucous, Urine 0 SEEN /hpf (<or=2+)
[2025-01-06 16:30] LABS: Color, Urine Yellow (Yellow); Glucose, Dipstick Normal (Normal); Ketone-Dipstick Negative (Negative); Leukocyte Esterase-Dipstick 500 /ul (Negative); Nitrite-Dipstick Negative (Negative); Occult Blood-Urine 150 /ul (Negative); Protein-Dipstick 100 mg/dl (Negative); Urine Bilirubin Dipstick Negative (Negative); Urine Clarity Sl. Cloudy (Clear); Urine Urobilinogen Normal (Normal)
[2025-01-06 16:36] LABS: Red Blood Cells-Urine 25-50 SEEN /hpf (0-5); White Blood Cells 10-25 SEEN /hpf (0-5)
[2025-01-06 16:37] LABS: Squamous Epithelial Cells - UA 0-5 SEEN /hpf (5-10)
[2025-01-06 17:09] VITALS: BP 109/73; PULSE 86; RESP 18; O2SAT 96
--- NOTE | 2025-01-06 17:16 | EDS_ITS ---
HPI <MARK Mcneil - Last Filed: 01/06/25 21:17> History of Present Illness Chief Complaint: Flank Pain Narrative Narrative: 79-year-old female had a right-sided stent placed for a large obstructing distal kidney stone on 12/22/2024. The patient states she has been on 2 different antibiotics from the urologist but continues to have a urine infection. She was most recently on Macrobid. Over the last few days she has felt weak and this morning had dry heaving prompting her to come in. She has no abdominal or flank pain but states she does not typically get the symptoms with a kidney stone. She has a sensation of a full bladder. 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 Crohn's disease Diarrhea Diarrhea Wears hearing aid Wears dentures Cancer Anxiety Thyroid disease Walker as ambulation aid Arthritis Easy bruising TIA (transient ischemic attack) Former smoker COPD (chronic obstructive pulmonary disease) Shortness of breath on exertion History of pain when walking History of echocardiogram History of stress test History of fracture of patella Stage 3b chronic kidney disease (CKD) Osteoporosis Urinary retention Rectal cancer Hydronephrosis Lung cancer Rectal cancer Decreased appetite Abdominal bloating COPD (chronic obstructive pulmonary disease) TIA (transient ischemic attack) Nicotine abuse Depression Anxiety Hypothyroidism COPD exacerbation Chronic bronchitis 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 calculus Hydronephrosis, right Filling defect on imaging study History of rectal cancer Home Medications ?Medication ?Instructions ?Recorded ?Last Taken ?Type bupropion HCl 150 mg 24 hr tablet, 150 mg PO QAM quit smoking 11/28/18 01/06/25 History extended release (Wellbutrin XL) citalopram 40 mg tablet 40 mg PO DAILY Anxiety 04/2401/06/25 History cyanocobalamin (vitamin B-12) 100 mcg IM Q30D Suppleme nt 10/08/19 12/12/24 History 1,000 mcg/mL injection solution cholecalciferol (vitamin D3) 25 25 mcg PO DAILY Supple ment 10/09/21 01/06/25 History mcg (1,000 unit) capsule (Vitamin D3) levothyroxine 88 mcg tablet 88 mcg PO DAILY 12/14/23 0 01/06/25 History albuterol sulfate 90 mcg/actuation 2 puff inhalation Q 4H PRN 05/24/24 12/21/24 Rx aerosol inhaler (Ventolin HFA) shortness of breath or wheezing #18 grams potassium chloride 20 mEq 20 meq PO DAILY 12/21/2401/28 History tablet,extended release sodium bicarbonate 650 mg tablet 650 mg PO TID 5 01/06/25 History Allergy/AdvReac Type Severity Reaction Status Date / Time ciprofloxacin (From Cipro) Allergy Rash Verified 12/21/24 13:30 ciprofloxacin HCl (From Allergy Rash Verified 12/21/24 13:30 Cipro) Penicillins Allergy Hives Verified 12/21/24 13:30 codeine AdvReac makes her Verified 12/21/24 13:30 feel weird magnesium citrate AdvReac Nausea Verified 12/21/24 13:30 NSAIDS (Non-Steroidal AdvReac kidney Verified 12/21/24 13:30 Anti-Inflamma damage r/t long-term usage advised not to use Family History Father Heart disease Mother Heart disease Sister Heart disease Diabetes Other Crohn's disease Surgical History (Updated 01/06/25 @ 21:17 by MARK Mcneil) History of cystoscopy History of colonoscopy (~10/2019) History of colostomy History of cholecystectomy History of bowel resection History of hysterectomy History of delivery Social History household members: none Smoking Status: Former smoker Tobacco: How many years used: 53 how long ago did patient quit smoking: Quit 2-5 years prior. second hand exposure: No alcohol intake: never substance use type: does not use caffeine: No what type of physical activity do you participate in: none ROS <MARK Mcneil - Last Filed: 01/06/25 21:17> ROS ED ROS Narrative Constitutional: Negative for fever, chills. CVS: Negative for chest pain. Respiratory: Negative for shortness of breath, cough. GI: Positive for nausea. No abdominal pain or vomiting. No melena or hematochezia. : Negative for dysuria. EXAM <MARK Mcneil - Last Filed: 01/06/25 21:17> Physical Exam Narrative Exam Narrative: CONST: Patient sitting in no acute distress. EYES: Normal inspection. NECK: Normal inspection. RESP: No respiratory distress, CTAB. CVS: Regular rate and rhythm, no murmur, no gallop. ABD: Soft and nontender, no guarding or rebound, nondistended. Back: Normal inspection, no CVA tenderness. SKIN: Color normal, no rash, warm, dry, intact. EXTREMITIES: Normal appearance, no pedal edema. NEURO: Alert and answering questions appropriately. PSYCH: Normal affect. Const Vital Signs: 01/06/25 14:31 01/06/25 17:09 01/06/25 19:00 Temperature 98.5 F Temperature Source Temporal Pulse Rate 95 86 80 Respiratory Rate 16 18 16 Blood Pressure 135/77 H 109/73 128/78 H Blood Pressure Mean 96 85 94 Pulse Ox 96 96 96 Oxygen Delivery Method Room Air Room Air Room Air 01/06/25 20:56 01/06/25 21:00 Temperature 98.8 F Temperature Source Pulse Rate 94 94 Respiratory Rate 18 18 Blood Pressure 152/72 H 152/72 H Blood Pressure Mean 98 98 Pulse Ox 96 96 Oxygen Delivery Method Room Air <Dr. Larry Aguilar MD - Last Filed: 01/07/25 00:24> Physical Exam Const Vital Signs: 01/06/25 14:31 01/06/25 17:09 01/06/25 19:00 Temperature 98.5 F Temperature Source Temporal Pulse Rate 95 86 80 Respiratory Rate 16 18 16 Blood Pressure 135/77 H 109/73 128/78 H Blood Pressure Mean 96 85 94 Pulse Ox 96 96 96 Oxygen Delivery Method Room Air Room Air Room Air 01/06/25 20:56 01/06/25 21:00 Temperature 98.8 F Temperature Source Pulse Rate 94 94 Respiratory Rate 18 18 Blood Pressure 152/72 H 152/72 H Blood Pressure Mean 98 98 Pulse Ox 96 96 Oxygen Delivery Method Room Air MDM <MARK Mcneil - Last Filed: 01/06/25 21:17> [facility] Narrative Medical decision making narrative: History gathered from: Patient and her daughter Consults: Urology Patient had a right sided stent placed for an obstructive kidney stone and UTI on 12/22/[address] Morrison. She reports generalized weakness and dry heaving. She has no pain. She is awake alert no distress. She is afebrile and hemodynamically stable. Overall her exam is benign. Abdomen soft and nontender and there is no CVA tenderness. CBC shows normal WBC of 10.6 and is unremarkable overall. BUN is 18, creatinine 1.71. It looks like she typically runs between 1.2 and 1.68 so this is not significantly elevated. She does have a metabolic acidosis with CO2 of 14.4 and anion gap of 17. Glucose is 99. I do not think a CT of the abdomen/pelvis is indicated as she has no pain or tenderness. I reviewed her urine culture on 12/21/2024 which showed Pseudomonas. It is sensitive to cefepime, for quinolones, meropenem and Zosyn. Patient has Cipro and penicillin listed as allergies causing a rash. I spoke with Dr. Morrison who reviewed the patient's chart and states she had prescribed her levofloxacin in December and she took it without an issue. Despite explaining this to the patient and her daughter here absolutely refused oral Cipro. Since there are limited options she was given IV gentamicin and admitted under the urology service for observation. New urine culture was also sent. Lab Data Attestation: I reviewed the patient's lab results. Labs: Laboratory Results - last 24 hr 01/06/25 01/06/25 01/06/25 16:21 17:35 17:35 WBC Cancelled Corrected WBC Cancelled RBC Cancelled Hgb Cancelled Hct Cancelled MCV Cancelled MCH Cancelled MCHC Cancelled RDW Std Deviation Cancelled RDW Coeff of Osmar Cancelled Plt Count Cancelled MPV Cancelled Immature Gran % (Auto) Cancelled Neut % (Auto) Cancelled Lymph % (Auto) Cancelled [place] % (Auto) Cancelled Eos % (Auto) Cancelled Baso % (Auto) Cancelled Absolute Neuts (auto) Cancelled Absolute Lymphs (auto) Cancelled Total Counted Cancelled Neutrophils % (Manual) Cancelled Band Neutrophils % Cancelled Lymphocytes % (Manual) Cancelled Monocytes % (Manual) Cancelled Eosinophils % (Manual) Cancelled Basophils % (Manual) Cancelled Metamyelocytes % Cancelled Myelocytes % Cancelled Promyelocytes % Cancelled Blast Cells % Cancelled Plasma Cell % (Manual) Cancelled Other Cells % Cancelled Nucleated RBC % Cancelled Nucleated RBCs/100 WBC Cancelled Differential Comment Cancelled Diff Path Review Cancelled Hypersegmented Neuts Cancelled Atypical Lymphocytes Cancelled Reactive Lymphocytes Cancelled Smudge Cells Cancelled Toxic Granulation Cancelled Toxic Vacuolation Cancelled Dohle Bodies Cancelled Hannah Rods Cancelled Platelet Estimate Cancelled Plt Morphology Comment Cancelled RBC Morphology Cancelled Cancelled Polychromasia Cancelled Hypochromasia Cancelled Basophilic Stippling Cancelled Anisocytosis Cancelled Microcytosis Cancelled Macrocytosis Cancelled Spherocytes Cancelled Sickle Cells Cancelled Target Cells Cancelled Tear Drop Cells Cancelled Ovalocytes Cancelled Stomatocytes Cancelled [place] Bodies Cancelled [place] Cells Cancelled Bite Cells Cancelled Crenated Cell Cancelled Acanthocytes (Spur) Cancelled Rouleaux Cancelled Schistocytes Cancelled Sodium 140 Potassium 4.5 Chloride 109 H Carbon Dioxide 14.4 L Anion Gap 17 H BUN 18 Creatinine 1.71 H Estim Creat Clear Calc 20.13 L Est GFR (MDRD) Non-Af 30 L BUN/Creatinine Ratio 10.5 Glucose 99 Calcium 9.8 Urine Color Yellow Urine Clarity Sl. Cloudy Urine pH 6.0 Ur Specific Champion 1.020 Urine Protein 100 H Urine Glucose (UA) Normal Urine Ketones Negative Urine Occult Blood 150 H Urine Nitrite Negative Urine Bilirubin Negative Urine Urobilinogen Normal Ur Leukocyte Esterase 500 H Urine RBC 25-50 SEEN Urine WBC 10-25 SEEN Ur Squamous Epith Cells 0-5 SEEN Urine Bacteria 0 SEEN Urine Mucus 0 SEEN 01/06/25 18:41 WBC 10.6 Corrected WBC RBC 4.26 Hgb 12.4 Hct 38.8 MCV 91.1 MCH 29.1 MCHC 32.0 RDW Std Deviation 45.9 H RDW Coeff of Osmar 13.7 Plt Count 206 MPV 9.3 Immature Gran % (Auto) 0.300 Neut % (Auto) 67.2 Lymph % (Auto) 24.5 [place] % (Auto) 4.5 Eos % (Auto) 3.2 Baso % (Auto) 0.3 Absolute Neuts (auto) 7.1 Absolute Lymphs (auto) 2.60 Total Counted Neutrophils % (Manual) Band Neutrophils % Lymphocytes % (Manual) Monocytes % (Manual) Eosinophils % (Manual) Basophils % (Manual) Metamyelocytes % Myelocytes % Promyelocytes % Blast Cells % Plasma Cell % (Manual) Other Cells % Nucleated RBC % 0 Nucleated RBCs/100 WBC Differential Comment Diff Path Review Hypersegmented Neuts Atypical Lymphocytes Reactive Lymphocytes Smudge Cells Toxic Granulation Toxic Vacuolation Dohle Bodies Hannah Rods Platelet Estimate Plt Morphology Comment RBC Morphology Polychromasia Hypochromasia Basophilic Stippling Anisocytosis Microcytosis Macrocytosis Spherocytes Sickle Cells Target Cells Tear Drop Cells Ovalocytes Stomatocytes [place] Bodies [place] Cells Bite Cells Crenated Cell Acanthocytes (Spur) Rouleaux Schistocytes Sodium Potassium Chloride Carbon Dioxide Anion Gap BUN Creatinine Estim Creat Clear Calc Est GFR (MDRD) Non-Af BUN/Creatinine Ratio Glucose Calcium Urine Color Urine Clarity Urine pH Ur Specific Champion Urine Protein Urine Glucose (UA) Urine Ketones Urine Occult Blood Urine Nitrite Urine Bilirubin Urine Urobilinogen Ur Leukocyte Esterase Urine RBC Urine WBC Ur Squamous Epith Cells Urine Bacteria Urine Mucus <Dr. Lrary Aguilar MD - Last Filed: 01/07/25 00:24> [facility] MDM Narrative Medical decision making narrative: History gathered from: Patient and her daughter Consults: Urology Patient had a right sided stent placed for an obstructive kidney stone and UTI on 12/22/[address] Morrison. She reports generalized weakness and dry heaving. She has no pain. She is awake alert no distress. She is afebrile and hemodynamically stable. Overall her exam is benign. Abdomen soft and nontender and there is no CVA tenderness. CBC shows normal WBC of 10.6 and is unremarkable overall. BUN is 18, creatinine 1.71. It looks like she typically runs between 1.2 and 1.68 so this is not significantly elevated. She does have a metabolic acidosis with CO2 of 14.4 and anion gap of 17. Glucose is 99. I do not think a CT of the abdomen/pelvis is indicated as she has no pain or tenderness. I reviewed her urine culture on 12/21/2024 which showed Pseudomonas. It is sensitive to cefepime, for quinolones, meropenem and Zosyn. Patient has Cipro and penicillin listed as allergies causing a rash. I spoke with Dr. Morrison who reviewed the patient's chart and states she had prescribed her lev ofloxacin in December and she took it without an issue. Despite explaining this to the patient and her daughter here absolutely refused oral Cipro. Since there are limited options she was given IV gentamicin and admitted under the urology service for observation. New urine culture was also sent. I have personally performed a face to face assessment of the patient and have reviewed the VISHNU Note. I performed a substantive portion of the visit including all aspects of the following. My matthew findings include: History is remarkable for recent hydronephrosis and ureter due to obstructing ureteral stone with UTI. She underwent emergent stent placement by Dr. Minal Morrison. She was sent in. Patient had dry heaves. He denies diarrhea. She denies hematuria or urgency. She does have slight discomfort with urination. She denies back or flank pain. She denies fever or chills. Exam is vital signs reveal slight elevated blood pressure. She is not febrile, tachycardic or tachypneic. She looks older than reported age. HEENT exam remarkable dry mucosa. Heart is regular. Rate is normal. There is no murmur, gallop or rub. Lungs are auscultation. Abdominal exam is remarkable for some mild suprapubic discomfort. She has no CVA tenderness noted. Medical Decision Making prior visits were reviewed, the OR note was reviewed read and patient's had Pseudomonas aeruginosa's UTI multiple times. She has multiple drug resistance. Only meds the organism is sensitive to is parenteral. Based on her allergies there is not much option. Spoke to her urologist. She felt that she had a not IgE mediated allergic reaction. She was treated last admission with levofloxacin. Family refused quinolones. Daughter that was in the room became somewhat agitated because of length of stay and the fact that the CAT scan was not ordered. I attempted to tell her why is taken time and why a CAT scan was not ordered. Other additions or changes: After discussion with urology patient to be admitt ed. She received 3 mg/kg of gentamicin. Urine culture was sent. IV fluids were ordered. Lab Data Labs: Laboratory Results - last 24 hr 01/06/25 01/06/25 01/06/25 16:21 17:35 17:35 WBC Cancelled Corrected WBC Cancelled RBC Cancelled Hgb Cancelled Hct Cancelled MCV Cancelled MCH Cancelled MCHC Cancelled RDW Std Deviation Cancelled RDW Coeff of Osmar Cancelled Plt Count Cancelled MPV Cancelled Immature Gran % (Auto) Cancelled Neut % (Auto) Cancelled Lymph % (Auto) Cancelled [place] % (Auto) Cancelled Eos % (Auto) Cancelled Baso % (Auto) Cancelled Absolute Neuts (auto) Cancelled Absolute Lymphs (auto) Cancelled Total Counted Cancelled Neutrophils % (Manual) Cancelled Band Neutrophils % Cancelled Lymphocytes % (Manual) Cancelled Monocytes % (Manual) Cancelled Eosinophils % (Manual) Cancelled Basophils % (Manual) Cancelled Metamyelocytes % Cancelled Myelocytes % Cancelled Promyelocytes % Cancelled Blast Cells % Cancelled Plasma Cell % (Manual) Cancelled Other Cells % Cancelled Nucleated RBC % Cancelled Nucleated RBCs/100 WBC Cancelled Differential Comment Cancelled Diff Path Review Cancelled Hypersegmented Neuts Cancelled Atypical Lymphocytes Cancelled Reactive Lymphocytes Cancelled Smudge Cells Cancelled Toxic Granulation Cancelled Toxic Vacuolation Cancelled Dohle Bodies Cancelled Hannah Rods Cancelled Platelet Estimate Cancelled Plt Morphology Comment Cancelled RBC Morphology Cancelled Cancelled Polychromasia Cancelled Hypochromasia Cancelled Basophilic Stippling Cancelled Anisocytosis Cancelled Microcytosis Cancelled Macrocytosis Cancelled Spherocytes Cancelled Sickle Cells Cancelled Target Cells Cancelled Tear Drop Cells Cancelled Ovalocytes Cancelled Stomatocytes Cancelled [place] Bodies Cancelled [place] Cells Cancelled Bite Cells Cancelled Crenated Cell Cancelled Acanthocytes (Spur) Cancelled Rouleaux Cancelled Schistocytes Cancelled Sodium 140 Potassium 4.5 Chloride 109 H Carbon Dioxide 14.4 L Anion Gap 17 H BUN 18 Creatinine 1.71 H Estim Creat Clear Calc 20.13 L Est GFR (MDRD) Non-Af 30 L BUN/Creatinine Ratio 10.5 Glucose 99 Calcium 9.8 Urine Color Yellow Urine Clarity Sl. Cloudy Urine pH 6.0 Ur Specific [place] 1.020 Urine Protein 100 H Urine Glucose (UA) Normal Urine Ketones Negative Urine Occult Blood 150 H Urine Nitrite Negative Urine Bilirubin Negative Urine Urobilinogen Normal Ur Leukocyte Esterase 500 H Urine RBC 25-50 SEEN Urine WBC 10-25 SEEN Ur Squamous Epith Cells 0-5 SEEN Urine Bacteria 0 SEEN Urine Mucus 0 SEEN 01/06/25 18:41 WBC 10.6 Corrected WBC RBC 4.26 Hgb 12.4 Hct 38.8 MCV 91.1 MCH 29.1 MCHC 32.0 RDW Std Deviation 45.9 H RDW Coeff of Osmar 13.7 Plt Count 206 MPV 9.3 Immature Gran % (Auto) 0.300 Neut % (Auto) 67.2 Lymph % (Auto) 24.5 [place] % (Auto) 4.5 Eos % (Auto) 3.2 Baso % (Auto) 0.3 Absolute Neuts (auto) 7.1 Absolute Lymphs (auto) 2.60 Total Counted Neutrophils % (Manual) Band Neutrophils % Lymphocytes % (Manual) Monocytes % (Manual) Eosinophils % (Manual) Basophils % (Manual) Metamyelocytes % Myelocytes % Promyelocytes % Blast Cells % Plasma Cell % (Manual) Other Cells % Nucleated RBC % 0 Nucleated RBCs/100 WBC Differential Comment Diff Path Review Hypersegmented Neuts Atypical Lymphocytes Reactive Lymphocytes Smudge Cells Toxic Granulation Toxic Vacuolation Dohle Bodies Hannah Rods Platelet Estimate Plt Morphology Comment RBC Morphology Polychromasia Hypochromasia Basophilic Stippling Anisocytosis Microcytosis Macrocytosis Spherocytes Sickle Cells Target Cells Tear Drop Cells Ovalocytes Stomatocytes [place] Bodies Eron Cells Bite Cells Crenated Cell Acanthocytes (Spur) Rouleaux Schistocytes Sodium Potassium Chloride Carbon Dioxide Anion Gap BUN Creatinine Estim Creat Clear Calc Est GFR (MDRD) Non-Af BUN/Creatinine Ratio Glucose Calcium Urine Color Urine Clarity Urine pH Ur Specific [place] Urine Protein Urine Glucose (UA) Urine Ketones Urine Occult Blood Urine Nitrite Urine Bilirubin Urine Urobilinogen Ur Leukocyte Esterase Urine RBC Urine WBC Ur Squamous Epith Cells Urine Bacteria Urine Mucus Discharge Plan Dx/Rx/DC Orders Clinical Impression: Generalized weakness, Acute UTI, Nausea, Failure of outpatient treatment, S/P ureteral stent placement Disposition Disposition: [facility] Discharge Date/Time: 01/06/25 21:26
[2025-01-06 18:27] LABS: BUN 18 mg/dL (4-19); BUN/Creat Ratio 10.5 RATIO (10-20); Creatinine, Serum 1.71 mg/dL (0.70-1.20); EST Glomerular Filtration Rate 30 (>60); Estimated Creatinine Clearance 20.13 ml/min (50-250); Glucose 99 mg/dL (70-99)
[2025-01-06 18:48] LABS: Absolute Neutrophil Count 7.1 X10^3/uL (2.0-7.7); Basophil# 0.03 X10^3/uL; Basophil% 0.3 % (0-1); Eosinophil# 0.34 X10^3/uL; Eosinophils% 3.2 % (0-5); Hematocrit 38.8 % (37-47); Hemoglobin 12.4 g/dL (12.0-15.0); Lymphocyte % 24.5 % (19-41); Mean Corpuscular Hgb 29.1 pg (27.0-32.0); Mean Corpuscular Volume 91.1 fL (81-99); Mean Platelet Vol. 9.3 fl (6.2-12.0); Monocyte# 0.48 X10^3/uL; Monocyte% 4.5 % (0-10); NRBC Flagged by Analyzer 0 % (0-5); Neutrophil # 7.14 X10^3/uL (2.7-7.7); Neutrophil % 67.2 % (47-70); Platelet Count 206 K/mm3 (150-450); RBC Distribution Width CV 13.7 % (11.6-14.6); RBC Distribution Width SD 45.9 fl (35.1-43.9); Red Blood Count 4.26 M/mm3 (4.2-5.4); White Blood Count 10.6 K/mm3 (4.4-11.0)
[2025-01-06 19:00] VITALS: BP 128/78; PULSE 80; RESP 16; O2SAT 96
[2025-01-06] MEDS: 0.9% Normal Saline (1000mL) 1,000 ML 999 ML IV (19:33)
[2025-01-06 19:52] LABS: Anion Gap 17 (5-15); Calcium,Total 9.8 mg/dL (7.6-11.0); Carbon Dioxide 14.4 mmol/L (21.0-32.0); Chloride 109 mmol/L (98-108); Potassium 4.5 mmol/L (3.3-5.1); Sodium Level 140 mmol/L (133-145)
[2025-01-06] MEDS: Ondansetron 4 MG/2 ML Vial IV (20:33)
[2025-01-06 20:56] VITALS: BP 152/72; PULSE 94; RESP 18; TEMP 37.1; O2SAT 96
[2025-01-06 21:00] VITALS: BP 152/72; PULSE 94; RESP 18; O2SAT 96
[2025-01-06] MEDS: GENTAMICIN IVPB (21:21)
[2025-01-06] MEDS: WATER IVPB (21:21)
[2025-01-06] MEDS: DEXTROSE 5% IVPB (21:21)
[2025-01-06 21:45] VITALS: BMI 21.7
--- NOTE | 2025-01-06 21:48 | CT_ITS ---
PROCEDURE: ABDOMEN/PELVIS WITHOUT CONT REASON FOR EXAM: 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 stone, evaluate for hydronephrosis. TECHNIQUE: Abdomen and pelvis CT with intravenous contrast. No oral contrast. IV CONTRAST: None COMPARISON: CT of the abdomen and pelvis dated 12/21/2024 FINDINGS: Lung bases: Clear Liver: Unremarkable. Gallbladder: Surgically absent. Spleen: Unremarkable. Pancreas: Unremarkable. Adrenals: Unremarkable. Kidneys: Multiple bilateral nonobstructing renal calculi. There is moderate hydroureteronephrosis with evidence of the an obstructing stone within the distal right ureter. When compared with the prior study there has been an interval placement of a right ureteral stent. The proximal section of the stent originates from the proximal right ureter. It terminates within the urinary bladder. There is mild hydronephrosis of the left kidney, no obstructing stones are visualized. Bladder: Mildly distended urinary bladder. Reproductive Organs: Prior hysterectomy. Adnexal regions are unremarkable. Bowel: Left lower quadrant ostomy. Status post colonic resection with reanastomosis within the right lower quadrant. There is mild fluid-filled dilatation of the large bowel. No wall thickening or adjacent stranding is demonstrated. No inflammatory changes of the small bowel. Stomach is grossly unremarkable. Appendix: The appendix is not clearly visualized. Lymph nodes: No suspicious lymph node enlargement. Vasculature: Mild diffuse atherosclerotic calcifications are noted. Peritoneum / Retroperitoneum: No ascites. No free air. Bones: Unremarkable. CT/Abdomen/Pelvis without Cont IMPRESSION: When compared with the prior study. There has been an interval placement of a right ureter stent, the proximal section of the stent originates from the proximal right ureter, please correlate clinically fo r adequate placement. Moderate right hydroureteronephrosis with a small obstructing stone identified within the distal right ureter. Mild left hydronephrosis, no obstructing stone is visualized. Multiple bilateral nonobstructing renal calculi. Mildly distended urinary bladder. Fluid-filled prominent loops of large bowel, no wall thickening or adjacent str anding. Postop changes as described above. One or more dose reduction techniques were used (e.g., Automated exposure contr ol, adjustment of the mA and/or kV according to patient size, use of iterative reconstruction technique). Reading Location: [facility]
[2025-01-06 21:53] VITALS: BP 154/70; PULSE 74; RESP 22; TEMP 37.1; O2SAT 93
[2025-01-06] MEDS: Lactated Ringers 1,000 ML 100 ML IV (22:40)
[2025-01-06] MEDS: Acetaminophen 500 MG Tablet 1000 MG PO (23:41)
[2025-01-06] MEDS: Sodium Bicarbonate 650 MG Tablet PO (23:41)
[2025-01-07 00:02] VITALS: BP 115/62; PULSE 79; RESP 18; TEMP 36; O2SAT 97
--- NOTE | 2025-01-07 01:59 | PCM.RX.CS ---
Consult Antibiotic Management Pharmacy has been consulted to manage selected antibiotic: Gentamicin Type of Intervention Type of Consult: New start Suspected Infection Suspected Infection: Other Labs Labs: Sodium 140 mmol/L (133-145) 01/06/25 17:35 Potassium 4.5 mmol/L (3.3-5.1) 01/06/25 17:35 Chloride 109 mmol/L (98-108) H 01/06/25 17:35 Carbon Dioxide 14.4 mmol/L (21.0-32.0) L 01/06/25 17:35 Anion Gap 17 (5-15) H 01/06/25 17:35 BUN 18 mg/dL (4-19) 01/06/25 17:35 Creatinine 1.71 mg/dL (0.70-1.20) H 01/06/25 17:35 Est GFR (MDRD) Non-Af 30 (>60) L 01/06/25 17:35 BUN/Creatinine Ratio 10.5 RATIO (10-20) 01/06/25 17:35 Glucose 99 mg/dL (70-99) 01/06/25 17:35 Dosing Weight Weight used for dosin kg Estimated Creatinine Clearance Estimated Creatinine Clearance: 20.1 Pharmacy Plan for Drug Dosing Pharmacy Plan for Drug Dosing: Initial gentamicin IV dose of 180mg was given in ED 01/06/25 @2121. Continued Conventional Gent Dosing was ordered. A continuing dose of 135mg q36hrs will be given, with peak & trough levels drawn surrounding the 3rd and 4th total doses. Pharmacy Service will continue to monitor and adjust dosing as required. Date/Time Labs Ordered Labs to be done on [date and time ordered]: peak 01/09/25 @2230; trough 01/11/25 @0900
[2025-01-07 04:00] VITALS: BP 118/64; PULSE 72; RESP 16; TEMP 36.6; O2SAT 94
[2025-01-07 04:51] LABS: Absolute Lymphocyte Count 3.23 X10^3/uL (0.83-4.51); Absolute Neutrophil Count 5.3 X10^3/uL (2.0-7.7); Basophil# 0.02 X10^3/uL; Basophil% 0.2 % (0-1); Eosinophil# 0.59 X10^3/uL; Eosinophils% 6.1 % (0-5); Hematocrit 32.2 % (37-47); Hemoglobin 10.5 g/dL (12.0-15.0); Lymphocyte # 3.23 X10^3/ul (0.83-4.51); Lymphocyte % 33.5 % (19-41); Mean Corp Hgb Conc 32.6 g/dL (32-36); Mean Corpuscular Hgb 29.3 pg (27.0-32.0); Mean Corpuscular Volume 89.9 fL (81-99); Mean Platelet Vol. 9.1 fl (6.2-12.0); Monocyte# 0.54 X10^3/uL; Monocyte% 5.6 % (0-10); NRBC Flagged by Analyzer 0 % (0-5); Neutrophil # 5.25 X10^3/uL (2.7-7.7); Neutrophil % 54.4 % (47-70); Platelet Count 182 K/mm3 (150-450); RBC Distribution Width CV 13.5 % (11.6-14.6); RBC Distribution Width SD 44.5 fl (35.1-43.9); Red Blood Count 3.58 M/mm3 (4.2-5.4); White Blood Count 9.7 K/mm3 (4.4-11.0)
[2025-01-07 05:36] LABS: Anion Gap 11 (5-15); BUN 17 mg/dL (4-19); BUN/Creat Ratio 12.3 RATIO (10-20); Calcium,Total 8.5 mg/dL (7.6-11.0); Carbon Dioxide 15.2 mmol/L (21.0-32.0); Chloride 110 mmol/L (98-108); Creatinine, Serum 1.36 mg/dL (0.70-1.20); EST Glomerular Filtration Rate 40 (>60); Estimated Creatinine Clearance 25.31 ml/min (50-250); Glucose 83 mg/dL (70-99); Potassium 3.4 mmol/L (3.3-5.1); Sodium Level 137 mmol/L (133-145)
[2025-01-07] MEDS: Levothyroxine 88 MCG Tablet PO (06:25)
[2025-01-07] MEDS: Acetaminophen 500 MG Tablet 1000 MG PO ×2 (06:25→14:25)
[2025-01-07] MEDS: Sodium Bicarbonate 650 MG Tablet PO ×2 (06:26→14:25)
--- NOTE | 2025-01-07 08:29 | PCM.HP.STD ---
HPI - General General Date of Admission: 01/06/25 Date of Service: 01/07/25 Chief Complaint: Weakness, nausea HPI Narrative JOSE DE JESUS GOLD, is a 79 F who presented to the emergency room with dry heaves, debilitation, weakness. She has a longstanding history of stones and approximately 2 weeks ago underwent a cystoscopy with right ureteral stent insertion and was treated last week with Levaquin for a Pseudomonas urinary tract infection. She did complete the 7 days of Levaquin. She did not have an allergic reaction to this. Daughter is currently at bedside. Patient has had decreased mobility and overall not feeling well, general malaise and weakness. She is feeling hungry this morning for the first time in several days. 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 Crohn's disease Diarrhea Diarrhea Wears hearing aid Wears dentures Cancer Anxiety Thyroid disease Walker as ambulation aid Arthritis Easy bruising TIA (transient ischemic attack) Former smoker COPD (chronic obstructive pulmonary disease) Shortness of breath on exertion History of pain when walking History of echocardiogram History of stress test History of fracture of patella Stage 3b chronic kidney disease (CKD) Osteoporosis Urinary retention Rectal cancer Hydronephrosis Lung cancer Rectal cancer Decreased appetite Abdominal bloating COPD (chronic obstructive pulmonary disease) TIA (transient ischemic attack) Nicotine abuse Depression Anxiety Hypothyroidism COPD exacerbation Chronic bronchitis 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 calculus Hydronephrosis, right Filling defect on imaging study History of rectal cancer Home Medications ?Medication ?Instructions ?Recorded ?Last Taken ?Type bupropion HCl 150 mg 24 hr tablet, 150 mg PO QAM quit smoking 11/28/18 01/06/25 History extended release (Wellbutrin XL) citalopram 40 mg tablet 40 mg PO DAILY Anxiety 04/24/19 01/06/25 History cyanocobalamin (vitamin B-12) 100 mcg IM Q30D Supplement 10/08/19 12/12/24 History 1,000 mcg/mL injection solution cholecalciferol (vitamin D3) 25 25 mcg PO DAILY Supplement 10/09/21 01/06/25 History mcg (1,000 unit) capsule (Vitamin D3) levothyroxine 88 mcg tablet 88 mcg PO DAILY 12/14/23 01/06/25 History albuterol sulfate 90 mcg/actuation 2 puff inhalation Q4H PRN 05/24/24 12/21/24 Rx aerosol inhaler (Ventolin HFA) shortness of breath or wheezing #18 grams potassium chloride 20 mEq 20 meq PO DAILY 12/21/24 01/06/25 History tablet,extended release sodium bicarbonate 650 mg tablet 650 mg PO TID 01/06/25 01/06/25 History Allergy/AdvReac Type Severity Reaction Status Date / Time ciprofloxacin (From Cipro) Allergy Rash Verified 12/21/24 13:30 ciprofloxacin HCl (From Allergy Rash Verified 12/21/24 13:30 Cipro) Penicillins Allergy Hives Verified 12/21/24 13:30 codeine AdvReac makes her Verified 12/21/24 13:30 feel weird magnesium citrate AdvReac Nausea Verified 12/21/24 13:30 NSAIDS (Non-Steroidal AdvReac kidney Verified 12/21/24 13:30 Anti-Inflamma damage r/t long-term usage advised not to use Family History Father Heart disease Mother Heart disease Sister Heart disease Diabetes Other Crohn's disease Surgical History History of cystoscopy History of colonoscopy (~10/2019) History of colostomy History of cholecystectomy History of bowel resection History of hysterectomy History of delivery Social History household members: none Smoking Status: Former smoker Tobacco: How many years used: 53 how long ago did patient quit smoking: Quit 2-5 years prior. second hand exposure: No alcohol intake: never substance use type: does not use caffeine: No what type of physical activity do you participate in: none ROS Constitutional Constitutional: Reports fatigue, lethargy and malaise; Denies body ache(s), chills or fever(s) Eyes Eyes: Reports systems reviewed and no addt'l complaints, except as documented ENT HEENT: Reports systems reviewed and no addt'l complaints, except as documented Cardiovascular Cardiovascular: Reports fatigue and nausea; Denies abdominal bloating or chest pain Respiratory/Chest Respiratory/Chest: Denies change in mental status, chest congestion, cough or inability to speak Gastrointestinal Gastrointestinal: Reports dry heaves and nausea Genitourinary Genitourinary: Denies difficulty urinating, dysuria, flank pain or hematuria Musculoskeletal Musculoskeletal: Reports difficulty walking and muscle weakness Integumentary Integumentary: Reports systems reviewed and no addt'l complaints, except as documented Neurologic Neurologic: Reports systems reviewed and no addt'l complaints, except as documented Psychiatric Psychiatric: Reports systems reviewed and no addt'l complaints, except as documented Endocrine Endocrinology: Reports systems reviewed and no addt'l complaints, except as documented Hematologic/Lymphatic Hematologic/Lymphatic: Reports systems reviewed and no addt'l complaints, except as documented Allergic/Immunologic Allergic/Immunologic: Reports systems reviewed and no addt'l complaints, except as documented Vital Signs Vital Signs Vital Signs: 01/06/25 14:31 01/06/25 17:09 01/06/25 19:00 Temperature 98.5 F Temperature Source Temporal Pulse Rate 95 86 80 Respiratory Rate 16 18 16 Respiratory Effort Respiratory Depth Respiratory Pattern Blood Pressure 135/77 H 109/73 128/78 H Blood Pressure Mean 96 85 94 Blood Pressure Source Blood Pressure Position Blood Pressure Location Pulse Ox 96 96 96 Oxygen Delivery Method Room Air Room Air Room Air 01/06/25 20:56 01/06/25 21:00 01/06/25 21:53 Temperature 98.8 F 98.7 F Temperature Source Oral Pulse Rate 94 94 74 Respiratory Rate 18 18 22 H Respiratory Effort Respiratory Depth Respiratory Pattern Blood Pressure 152/72 H 152/72 H 154/70 H Blood Pressure Mean 98 98 98 Blood Pressure Source Monitor Blood Pressure Position Semi-Fowlers Blood Pressure Location Right Arm Pulse Ox 96 96 93 Oxygen Delivery Method Room Air Room Air 01/06/25 21:53 01/07/25 00:02 01/07/25 04:00 Temperature 96.8 F L 97.8 F Temperature Source Temporal Oral Pulse Rate 79 72 Respiratory Rate 18 16 Respiratory Effort Non-Labored Respiratory Depth Normal Respiratory Pattern Normal Blood Pressure 115/62 118/64 Blood Pressure Mean 79 82 Blood Pressure Source Monitor Monitor Blood Pressure Position Semi-Fowlers Semi-Fowlers Blood Pressure Location Right Arm Right Arm Pulse Ox 97 94 Oxygen Delivery Method Room Air Room Air Room Air 01/07/25 04:00 Temperature Temperature Source Pulse Rate Respiratory Rate Respiratory Effort Normal Non-Labored Respiratory Depth Normal Respiratory Pattern Normal Blood Pressure Blood Pressure Mean Blood Pressure Source Blood Pressure Position Blood Pressure Location Pulse Ox Oxygen Delivery Method Room Air Weight Weight: 52 kg Body Mass Index (BMI) 21.7 Physical Exam Const alert, oriented x3 and no apparent distress General Appearance: cooperative, comfortable, well kempt and well developed Orientation / Consciousness: awake HEENT normocephalic, head/scalp atraumatic, hearing grossly normal bilaterally, external ears normal and external nose normal Eyes General Eye: normal appearance of both eyes Neck supple General: normal visual inspection and trachea midline Lymph Lymphatic: no lymphedema noted Chest inspection of chest normal Chest: symmetrical chest wall rise Resp normal respiratory effort, normal air movement and no retractions Cardio regular rate and regular rhythm GI soft to palpation, non-tender and non-distended no CVA tenderness Narrative: She has a pure wick catheter. Back/Spine no CVA tenderness Extremity normal to inspection Skin no rashes or lesions noted, no wounds, no jaundice, no petechiae and no mottling Neuro oriented x3, CN's II-XII intact bilaterally and moves all extremities Psych mental status grossly normal and thought process normal Results Lab / Micro Data 01/07/25 04:04 01/07/25 04:04 Labs: Laboratory Results - last 24 hr 01/06/25 16:21: Urine Color Yellow, Urine Clarity Sl. Cloudy, Urine pH 6.0, Ur Specific [place] 1.020, Urine Protein 100 H, Urine Glucose (UA) Normal, Urine Ketones Negative, Urine Occult Blood 150 H, Urine Nitrite Negative, Urine Bilirubin Negative, Urine Urobilinogen Normal, Ur Leukocyte Esterase 500 H, Urine RBC 25-50 SEEN, Urine WBC 10-25 SEEN, Ur Squamous Epith Cells 0-5 SEEN, Urine Bacteria 0 SEEN, Urine Mucus 0 SEEN 01/06/25 17:35: WBC Cancelled, Corrected WBC Cancelled, RBC Cancelled, Hgb Cancelled, Hct Cancelled, MCV Cancelled, MCH Cancelled, MCHC Cancelled, RDW Std Deviation Cancelled, RDW Coeff of Osmar Cancelled, Plt Count Cancelled, MPV Cancelled, Immature Gran % (Auto) Cancelled, Neut % (Auto) Cancelled, Lymph % (Auto) Cancelled, [place] % (Auto) Cancelled, Eos % (Auto) Cancelled, Baso % (Auto) Cancelled, Absolute Neuts (auto) Cancelled, Absolute Lymphs (auto) Cancelled, Total Counted Cancelled, Neutrophils % (Manual) Cancelled, Band Neutrophils % Cancelled, Lymphocytes % (Manual) Cancelled, Monocytes % (Manual) Cancelled, Eosinophils % (Manual) Cancelled, Basophils % (Manual) Cancelled, Metamyelocytes % Cancelled, Myelocytes % Cancelled, Promyelocytes % Cancelled, Blast Cells % Cancelled, Plasma Cell % (Manual) Cancelled, Other Cells % Cancelled, Nucleated RBC % Cancelled, Nucleated RBCs/100 WBC Cancelled, Differential Comment Cancelled, Diff Path Review Cancelled, Hypersegmented Neuts Cancelled, Atypical Lymphocytes Cancelled, Reactive Lymphocytes Cancelled, Smudge Cells Cancelled, Toxic Granulation Cancelled, Toxic Vacuolation Cancelled, Dohle Bodies Cancelled, Hannah Rods Cancelled, Platelet Estimate Cancelled, Plt Morphology Comment Cancelled, RBC Morphology Cancelled 01/06/25 17:35: RBC Morphology Cancelled, Polychromasia Cancelled, Hypochromasia Cancelled, Basophilic Stippling Cancelled, Anisocytosis Cancelled, Microcytosis Cancelled, Macrocytosis Cancelled, Spherocytes Cancelled, Sickle Cells Cancelled, Target Cells Cancelled, Tear Drop Cells Cancelled, Ovalocytes Cancelled, Stomatocytes Cancelled, [place] Bodies Cancelled, [place]man Cells Cancelled, Bite Cells Cancelled, Crenated Cell Cancelled, Acanthocytes (Spur) Cancelled, Rouleaux Cancelled, Schistocytes Cancelled, Sodium 140, Potassium 4.5, Chloride 109 H, Carbon Dioxide 14.4 L, Anion Gap 17 H, BUN 18, Creatinine 1.71 H, Estim Creat Clear Calc 20.13 L, Est GFR (MDRD) Non-Af 30 L, BUN/Creatinine Ratio 10.5, Glucose 99, Calcium 9.8 01/06/25 18:41: WBC 10.6, RBC 4.26, Hgb 12.4, Hct 38.8, MCV 91.1, MCH 29.1, MCHC 32.0, RDW Std Deviation 45.9 H, RDW Coeff of Osmar 13.7, Plt Count 206, MPV 9.3, Immature Gran % (Auto) 0.300, Neut % (Auto) 67.2, Lymph % (Auto) 24.5, [place] % (Auto) 4.5, Eos % (Auto) 3.2, Baso % (Auto) 0.3, Absolute Neuts (auto) 7.1, Absolute Lymphs (auto) 2.60, Nucleated RBC % 0 01/07/25 04:04: WBC 9.7, RBC 3.58 L, Hgb 10.5 L, Hct 32.2 L, MCV 89.9, MCH 29.3, MCHC 32.6, RDW Std Deviation 44.5 H, RDW Coeff of Osmar 13.5, Plt Count 182, MPV 9.1, Immature Gran % (Auto) 0.200, Neut % (Auto) 54.4, Lymph % (Auto) 33.5, [place] % (Auto) 5.6, Eos % (Auto) 6.1 H, Baso % (Auto) 0.2, Absolute Neuts (auto) 5.3, Absolute Lymphs (auto) 3.23, Nucleated RBC % 0, Sodium 137, Potassium 3.4, Chloride 110 H, Carbon Dioxide 15.2 L, Anion Gap 11, BUN 17, Creatinine 1.36 H, Estim Creat Clear Calc 25.31 L, Est GFR (MDRD) Non-Af 40 L, BUN/Creatinine Ratio 12.3, Glucose 83, Calcium 8.5 Imaging Radiology Impression Abdomen/Pelvis CT 01/06/25 21:48 IMPRESSION: When compared with the prior study. There has been an interval placement of a right ureter stent, the proximal section of the stent originates from the proximal right ureter, please correlate clinically for adequate placement. Moderate right hydroureteronephrosis with a small obstructing stone identified within the distal right ureter. Mild left hydronephrosis, no obstructing stone is visualized. Multiple bilateral nonobstructing renal calculi. Mildly distended urinary bladder. Fluid-filled prominent loops of large bowel, no wall thickening or adjacent stranding. Postop changes as described above. One or more dose reduction techniques were used (e.g., Automated exposure control, adjustment of the mA and/or kV according to patient size, use of iterative reconstruction technique). [facility] Assessment & Plan Assessment/Plan (1) Acute UTI: (2) Nausea: (3) Generalized weakness: (4) Failure of outpatient treatment: (5) S/P ureteral stent placement: PLAN: Plan Continue supportive care Physical therapy and increase ambulation Await results of the urine culture, if negative will plan to move her surgical intervention for her stone sooner than next week Discontinue pure wick catheter SCDs and Lovenox She had gentamicin last night and just completed 7-day course of Levaquin with no bacteria seen on microscopic urinalysis will hold on further antibiotic administration at this time
[2025-01-07 10:00] VITALS: BP 101/68; PULSE 62; RESP 16; TEMP 37; O2SAT 95
[2025-01-07] MEDS: Potassium Chloride Oral Tablet 20 MEQ PO (10:34)
[2025-01-07] MEDS: Enoxaparin 30 MG/0.3 ML Syringe SC (10:35)
[2025-01-07] MEDS: Famotidine 20 MG Tablet PO (10:35)
[2025-01-07] MEDS: buPROPion (XL) 150 MG TABLET.XL PO (10:35)
[2025-01-07] MEDS: Citalopram 40 MG TABLET PO (10:35)
[2025-01-07] MEDS: Cholecalciferol (VIT D3) 25 MCG TABLET (1,000 UNITS) PO (10:35)
--- NOTE | 2025-01-07 15:53 | CASEMGMT ---
RICHARD CM into pt room, discussed with pt her therapy eval. Pt denies need for any home therapy or outpt therapy. Pt states she feels strong enough to return home and to use her walker. Pt denies any homegoing needs at this time.
--- NOTE | 2025-01-07 16:25 | CASEMGMT ---
Met with patient to complete POON form. POON form explained to patient who voiced understanding and signed form. Original form placed in pt?s chart and copy provided to patient. Taylor Lim, Discharge Planning Asst
--- NOTE | 2025-01-07 17:54 | PCM.PN.GU ---
Subjective Subjective Feeling much better this afternoon. She is tolerating p.o. intake and her urine output has been significantly better. She is ambulating without difficulty and is ready to go home. Daughter is at bedside. Objective Data Objective Data Vital Signs: Vital Signs Temp Pulse Resp BP Pulse Ox O2 Del Method 98.6 F 62 16 101/68 95 Room Air 01/07/25 10:00 01/07/25 10:00 01/07/25 10:00 01/07/25 10:00 01/07/25 10:00 01/07/25 10:00 Oxygen Delivery Method Room Air Weight: 52 kg Body Mass Index (BMI) 21.7 Intake & Output: Intake and Output for Last 24 Hours 01/05/25 01/06/25 01/07/25 23:59 23:59 23:59 Intake Total 1204.5 / 1204.5 1400 / 1400 Output Total 200 / 200 550 / 550 Balance 1004.5 / 1004.5 850 / 850 Lab / Micro Data 01/07/25 04:04 01/07/25 04:04 Labs: Laboratory Results - last 24 hr 01/06/25 17:35: WBC Cancelled, Corrected WBC Cancelled, RBC Cancelled, Hgb Cancelled, Hct Cancelled, MCV Cancelled, MCH Cancelled, MCHC Cancelled, RDW Std Deviation Cancelled, RDW Coeff of Osmar Cancelled, Plt Count Cancelled, MPV Cancelled, Immature Gran % (Auto) Cancelled, Neut % (Auto) Cancelled, Lymph % (Auto) Cancelled, [place] % (Auto) Cancelled, Eos % (Auto) Cancelled, Baso % (Auto) Cancelled, Absolute Neuts (auto) Cancelled, Absolute Lymphs (auto) Cancelled, Total Counted Cancelled, Neutrophils % (Manual) Cancelled, Band Neutrophils % Cancelled, Lymphocytes % (Manual) Cancelled, Monocytes % (Manual) Cancelled, Eosinophils % (Manual) Cancelled, Basophils % (Manual) Cancelled, Metamyelocytes % Cancelled, Myelocytes % Cancelled, Promyelocytes % Cancelled, Blast Cells % Cancelled, Plasma Cell % (Manual) Cancelled, Other Cells % Cancelled, Nucleated RBC % Cancelled, Nucleated RBCs/100 WBC Cancelled, Differential Comment Cancelled, Diff Path Review Cancelled, Hypersegmented Neuts Cancelled, Atypical Lymphocytes Cancelled, Reactive Lymphocytes Cancelled, Smudge Cells Cancelled, Toxic Granulation Cancelled, Toxic Vacuolation Cancelled, Dohle Bodies Cancelled, Hannah Rods Cancelled, Platelet Estimate Cancelled, Plt Morphology Comment Cancelled, RBC Morphology Cancelled 01/06/25 17:35: RBC Morphology Cancelled, Polychromasia Cancelled, Hypochromasia Cancelled, Basophilic Stippling Cancelled, Anisocytosis Cancelled, Microcytosis Cancelled, Macrocytosis Cancelled, Spherocytes Cancelled, Sickle Cells Cancelled, Target Cells Cancelled, Tear Drop Cells Cancelled, Ovalocytes Cancelled, Stomatocytes Cancelled, [place] Bodies Cancelled, [place]ron Cells Cancelled, Bite Cells Cancelled, Crenated Cell Cancelled, Acanthocytes (Spur) Cancelled, Rouleaux Cancelled, Schistocytes Cancelled, Sodium 140, Potassium 4.5, Chloride 109 H, Carbon Dioxide 14.4 L, Anion Gap 17 H, BUN 18, Creatinine 1.71 H, Estim Creat Clear Calc 20.13 L, Est GFR (MDRD) Non-Af 30 L, BUN/Creatinine Ratio 10.5, Glucose 99, Calcium 9.8 01/06/25 18:41: WBC 10.6, RBC 4.26, Hgb 12.4, Hct 38.8, MCV 91.1, MCH 29.1, MCHC 32.0, RDW Std Deviation 45.9 H, RDW Coeff of Osmar 13.7, Plt Count 206, MPV 9.3, Immature Gran % (Auto) 0.300, Neut % (Auto) 67.2, Lymph % (Auto) 24.5, [place] % (Auto) 4.5, Eos % (Auto) 3.2, Baso % (Auto) 0.3, Absolute Neuts (auto) 7.1, Absolute Lymphs (auto) 2.60, Nucleated RBC % 0 01/07/25 04:04: WBC 9.7, RBC 3.58 L, Hgb 10.5 L, Hct 32.2 L, MCV 89.9, MCH 29.3, MCHC 32.6, RDW Std Deviation 44.5 H, RDW Coeff of Osmar 13.5, Plt Count 182, MPV 9.1, Immature Gran % (Auto) 0.200, Neut % (Auto) 54.4, Lymph % (Auto) 33.5, [place] % (Auto) 5.6, Eos % (Auto) 6.1 H, Baso % (Auto) 0.2, Absolute Neuts (auto) 5.3, Absolute Lymphs (auto) 3.23, Nucleated RBC % 0, Sodium 137, Potassium 3.4, Chloride 110 H, Carbon Dioxide 15.2 L, Anion Gap 11, BUN 17, Creatinine 1.36 H, Estim Creat Clear Calc 25.31 L, Est GFR (MDRD) Non-Af 40 L, BUN/Creatinine Ratio 12.3, Glucose 83, Calcium 8.5 Radiography Diagnostic Testing: Radiology Impression Abdomen/Pelvis CT 01/06/25 21:48 IMPRESSION: When compared with the prior study. There has been an interval placement of a right ureter stent, the proximal section of the stent originates from the proximal right ureter, please correlate clinically for adequate placement. Moderate right hydroureteronephrosis with a small obstructing stone identified within the distal right ureter. Mild left hydronephrosis, no obstructing stone is visualized. Multiple bilateral nonobstructing renal calculi. Mildly distended urinary bladder. Fluid-filled prominent loops of large bowel, no wall thickening or adjacent stranding. Postop changes as described above. One or more dose reduction techniques were used (e.g., Automated exposure control, adjustment of the mA and/or kV according to patient size, use of iterative reconstruction technique). Reading Location: [facility] Physical Exam Narrative She is sitting up in the chair. Her walker is at bedside. She is awake, alert and very comfortable. Const alert, oriented x3 and no apparent distress General Appearance: cooperative and comfortable HEENT normocephalic and head/scalp atraumatic Assessment & Plan Assessment/Plan (1) Acute UTI: (2) Hydronephrosis: (3) Generalized weakness: (4) Nausea: (5) Failure of outpatient treatment: (6) S/P ureteral stent placement: PLAN: Plan Home today Follow-up on urine culture tomorrow If culture is negative and she is feeling strong enough, we will plan to proceed with stone intervention on Monday If the culture is positive or if she is not feeling well, we will continue to keep her on the surgical schedule for next . Patient and family are aware of the plan and agree.
--- NOTE | 2025-01-07 17:58 | DCINST_ITS ---
Discharge Instructions Diet Discharge Diet: No restrictions DC O2, CPAP, BIPAP needs Home O2 Discharge instructions: No Dressing / Incision Discharge Activity: Return to Normal Activity Dressing / Incision Call your doctor if you observe: Fever of 101 or Higher, Inability to urinate, Inability to have a bowel movement, Shortness of breath, Dizziness, Fainting spells and Chest pain Follow Up Care Please Follow Up With: Minal Morrison MD When: The office will call her. Test Results: Test results from this visit will be discussed in further detail at your follow- up appointment, if applicable. Discharge Plan Admission Admit Date/Time: 01/06/25 21:43 Attending Provider: Minal Morrison Primary Care Provider: Elliot Kang Chi Discharge Orders/Prescriptions Prescriptions: Continued bupropion HCl [Wellbutrin XL] 150 mg tablet extended release 24 hr 150 mg PO QAM albuterol sulfate [Ventolin HFA] 90 mcg/actuation HFA aerosol inhaler 2 puff inhalation Q4H PRN (Reason: shortness of breath or wheezing) Qty: 18 6RF citalopram 40 MG tablet 40 mg PO DAILY cyanocobalamin (vitamin B-12) 1,000 MCG/ML solution 100 mcg IM Q30D cholecalciferol (vitamin D3) [Vitamin D3] 25 mcg (1,000 unit) Capsule 25 mcg PO DAILY levothyroxine 88 mcg tablet 88 mcg PO DAILY potassium chloride 20 mEq tablet extended release 20 meq PO DAILY sodium bicarbonate 650 mg tablet 650 mg PO TID Referrals / Follow Up: Elliot Kang Chi, MD [Primary Care Provider] - Disposition Disposition (needs filled in before D/C Order can be placed): Home, Self Care
[2025-01-07 18:00] VITALS: BP 121/69; PULSE 74; RESP 16; TEMP 36.6; O2SAT 98
== END 2025-01-07 18:20 | disposition home or self-care (01) ==
LOC: ED 17:21 → MS2 22:17
PROVIDERS: Physician Assistant; Admitting Provider Urology; Emergency Provider Emergency Medicine; PCP Family Medicine Geriatric Medicine; Referring Provider Urology; Visit Provider Urology
DX: N39.0 Urinary tract infection, site not specified (principal); J44.9 Chronic obstructive pulmonary disease, unspecified; N18.32 Chronic kidney disease, stage 3b; Z79.890 Hormone replacement therapy; Z16.24 Resistance to multiple antibiotics; R03.0 Elevated blood-pressure reading, without diagnosis of hypertension; Z87.891 Personal history of nicotine dependence; F41.9 Anxiety disorder, unspecified; Z79.899 Other long term (current) drug therapy; E03.9 Hypothyroidism, unspecified
CPT/HCPCS: 36415; 74176; 80048; 81001; 85025; 87086; 96361; 96365; 96372; 96375; 97162; 99221; 99283; A4216; G0378; J2405

== ENCOUNTER 2025-01-16 07:09 | Day surgery (SDC) | payer MEDICARE, OTHER, SELFPAY ==
--- NOTE | 2025-01-08 14:51 | PAT.ANESEVAL ---
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 When Was Last Pacemaker Check QUESTION #4 FULL TEXT: You/Your Family Experience fever (hyperthermia) with Anesthesia Last Oral Intake Last Oral intake: Last Oral Intake NPO since Meds taken in AM with sips of water? 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 - wooden barrel mechanic: PONV - wooden barrel mechanic Female Yes 01/08/25 14:12 HX of Motion Sickness No 01/08/25 14:12 HX of N/V After Surgery No 01/08/25 14:12 Non-Smoker Yes 01/08/25 14:12 Duration of Surgery greater Yes 01/08/25 14:12 than 60 minutes Number of Risk Factors 3 01/08/25 14:12 PONV Score Moderate Risk 01/08/25 14:12 Height & Weight Height & Weight: Anesthesia: Height & Weight Height 5 ft 1 in 12/22/24 05:59 Respiratory Assessment Respiratory Assessment - wooden barrel mechanic: Respiratory Tract Infection Hx - wooden barrel mechanic Hx Respiratory Tract Infection No 01/08/25 14:12 STOP Sleep Apnea STOP Sleep Apnea - wooden barrel mechanic: STOP Sleep Apnea - wooden barrel mechanic Hx Hypertension No 01/08/25 14:12 Hx Sleep Apnea No 01/08/25 14:12 CPAP No 10/12/22 11:53 BIPAP No 10/12/22 11:53 Do you snore loudly (louder No 01/08/25 14:12 than talking or can be heard Do you often feel tired/ No 01/08/25 14:12 fatigued/ sleepy during daytime? Has anyone observed you stop No 01/08/25 14:12 breathing during sleep? STOP Results Negative 01/08/25 14:12 QUESTION #5 FULL TEXT : Do you snore loudly (louder than talking or can be heard through closed doors)? 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 Specify any problems Hx of Preganancy in last 3 No 01/08/25 14:12 Months Nurse Filling Out Transfusion [email or web address] 01/08/25 14:12 & Questions: Date: 01/08/25 01/08/25 14:12 Time: 14:14 01/08/25 14:12 Patient unable to answer at this time (ie. confused, unrespo /Reproduction History /Reproductive History - wooden barrel mechanic: /Reproductive Hx- wooden barrel mechanic Hx Now Gestational Age (in weeks): EDC: Hx Hx Para Hx Section SAB No 10/12/22 11:53 PFSH Medical History Ureteral stent present 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 calculus shelter current use of immunosuppressive drug Crohn's disease Diarrhea Diarrhea Wears hearing aid Wears dentures Cancer Anxiety Thyroid disease Walker as ambulation aid Arthritis Easy bruising TIA (transient ischemic attack) Former smoker COPD (chronic obstructive pulmonary disease) Shortness of breath on exertion History of pain when walking History of echocardiogram History of stress test History of fracture of patella Stage 3b chronic kidney disease (CKD) Osteoporosis Urinary retention Rectal cancer Hydronephrosis Lung cancer Rectal cancer Decreased appetite Abdominal bloating COPD (chronic obstructive pulmonary disease) TIA (transient ischemic attack) Nicotine abuse Depression Anxiety Hypothyroidism COPD exacerbation Chronic bronchitis 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 calculus Hydronephrosis, right Filling defect on imaging study History of rectal cancer Home Medications ?Medication ?Instructions ?Recorded ?Last Taken ?Type bupropion HCl 150 mg 24 hr tablet, 150 mg PO QAM quit smoking 11/28/18 01/06/25 History extended release (Wellbutrin XL) citalopram 40 mg tablet 40 mg PO DAILY Anxiety 04/24/19 01/06/25 History cyanocobalamin (vitamin B-12) 100 mcg IM Q30D Supplement 10/08/19 12/12/24 History 1,000 mcg/mL injection solution cholecalciferol (vitamin D3) 25 25 mcg PO DAILY Supplement 10/09/21 01/06/25 History mcg (1,000 unit) capsule (Vitamin D3) levothyroxine 88 mcg tablet 88 mcg PO DAILY 12/14/23 01/06/25 History albuterol sulfate 90 mcg/actuation 2 puff inhalation Q4H PRN 05/24/24 12/21/24 Rx aerosol inhaler (Ventolin HFA) shortness of breath or wheezing #18 grams potassium chloride 20 mEq 20 meq PO DAILY 12/21/24 01/06/25 History tablet,extended release sodium bicarbonate 650 mg tablet 650 mg PO TID 01/06/25 01/06/25 History Allergy/AdvReac Type Severity Reaction Status Date / Time ciprofloxacin HCl (From Allergy Rash Verified 01/08/25 14:06 Cipro) Penicillins Allergy Hives Verified 01/08/25 14:06 codeine AdvReac makes her Verified 01/08/25 14:06 feel weird magnesium citrate AdvReac Nausea Verified 01/08/25 14:06 NSAIDS (Non-Steroidal AdvReac kidney Verified 01/08/25 14:06 Anti-Inflamma damage r/t long-term usage advised not to use Family History Father Heart disease Mother Heart disease Sister Heart disease Diabetes Other Crohn's disease Surgical History History of cystoscopy History of colonoscopy (~10/2019) History of colostomy History of cholecystectomy History of bowel resection History of hysterectomy History of delivery Social History household members: none Smoking Status: Former smoker Tobacco: How many years used: 53 how long ago did patient quit smoking: Quit 2-5 years prior. second hand exposure: No alcohol intake: never substance use type: does not use caffeine: No what type of physical activity do you participate in: none Audit: Pertinent Findings Pertinent Findings EKG Perinent findings: 12/21/2024 normal sinus rhythm rate of 86 bpm normal EKG Stress test pertinent findings: 06/01/2020 normal stress echo Echo (EF%) pertinent findings: 05/07/2020 EF 60% Pulmonary function results/spirometer pertinent findings: 05/17/2022 a reversible moderate large airways obstructive ventilatory defect with air trapping and symmetric reduction in diffusing capacity Recommendation Anesthesia Recommendation Anesthesia recommendation: OPTIMIZED for anesthesia
[2025-01-16] VITALS (11 sets, daily range): BP systolic 121–146; BP diastolic 66–74; PULSE 88–96; RESP 16; TEMP 36.8–37.4; O2SAT 92–100; BMI 22.1
[2025-01-16] MEDS: 0.9% Normal Saline (1000mL) 1,000 ML 15 ML IV (07:47)
--- NOTE | 2025-01-16 07:58 | PCM.PRE.AN2 ---
ASA Classification* ASA Classification ASA Classification: 3 (COPD, hx of TIA, multiple UTIs, lung cancer, hypothyroidism, crohns dz. Patient used her albuterol this morning, usually only uses it as needed. Will give duoneb breathing tx in preop prior to surgery.) Assessment & Plan Anesthesia* Anesthesia Assessment Anesthesia Assessment: Discussed sedation and/or anesthesia options, risks, benefits, and alternatives with patient/parents/legal guardian/POA. Questions invited. The patient/parents/legal guardian/POA seems to understand and agrees to proceed with anesthesia plan. Reviewed the physical assessment, medical history, allergy history and patient home medications list prior to surgery/procedure/anesthetic and documented any changes. Performed airway and anesthesia risk assessments. JOSE DE JESUS GOLD, is a 79 F who presented to the emergency room with dry heaves, debilitation, weakness. She has a longstanding history of stones and approximately 2 weeks ago underwent a cystoscopy with right ureteral stent insertion and was treated last week with Levaquin for a Pseudomonas urinary tract infection Anesthesia Type Anesthesia Type: General History Source History Obtained from:: Patient and Chart Anesthesia Focused Assessment* Temperature: 99.3 F Pulse Rate: 94 Blood Pressure: 146/74 Respiratory Rate: 16 Pulse Ox: 95 Oxygen Delivery Method: Room Air Airway Assessment Mouth opens: >3 cm Mallampati Score: II Teeth Condition: Intact Neck Range of motion (ROM): Full ROM Focused Labs Anesthesia Preop lab: CBC WBC 9.7 K/mm3 (4.4-11.0) 01/07/25 04:04 01/07/25 RBC 3.58 M/mm3 (4.2-5.4) L 01/07/25 04:04 01/07/25 Hgb 10.5 g/dL (12.0-15.0) L 01/07/25 04:04 01/07/25 Hct 32.2 % (37-47) L 01/07/25 04:04 01/07/25 Plt Count 182 K/mm3 (150-450) 01/07/25 04:04 01/07/25 CHEMISTRY Potassium 3.4 mmol/L (3.3-5.1) 01/07/25 04:04 01/07/25 Sodium 137 mmol/L (133-145) 01/07/25 04:04 01/07/25 Magnesium 2.1 mg/dL (1.6-2.6) 08/29/22 04:22 08/29/22 Phosphorus 3.1 mg/dL (2.5-4.9) 09/11/24 13:26 09/11/24 BUN 17 mg/dL (4-19) 01/07/25 04:04 01/07/25 Creatinine 1.36 mg/dL (0.70-1.20) H 01/07/25 04:04 01/07/25 Glucose 83 mg/dL (70-99) 01/07/25 04:04 01/07/25 POC Glucose 88 mg/dL (70-110) 02/05/18 12:01 02/05/18 TSH 0.075 uIU/mL (0.358-3.740) L 12/21/24 13:40 12/21/24 COAG PT 17.2 SECONDS (11.7-14.9) H 09/28/22 10:39 09/28/22 Pre-Assessment Diagnosis/Proposed Procedure Planned Operative Procedure(s): Cysto, right ureteroscope with laser lithotripsy Anesthesia History 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 When Was Last Pacemaker Check QUESTION #4 FULL TEXT: You/Your Family Experience fever (hyperthermia) with Anesthesia Last Oral Intake Last Oral intake: Last Oral Intake NPO since 23:00 01/16/25 07:39 Meds taken in AM with sips of Yes 01/16/25 07:39 water? 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 Female Yes 01/08/25 14:12 HX of Motion Sickness No 01/08/25 14:12 HX of N/V After Surgery No 01/08/25 14:12 Non-Smoker Yes 01/08/25 14:12 Duration of Surgery greater Yes 01/08/25 14:12 than 60 minutes Number of Risk Factors 3 01/08/25 14:12 PONV Score Moderate Risk 01/08/25 14:12 Height & Weight Height & Weight: Anesthesia: Height & Weight Height 5 ft 1 in 01/16/25 07:39 Weight: 53.1 kg 01/16/25 07:39 Body Mass Index (BMI) 22.1 01/16/25 07:39 Respiratory Assessment Respiratory Assessment - laborer shellfish processing: Respiratory Tract Infection Hx - 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 Has anyone observed you stop No 01/08/25 14:12 breathing during sleep? STOP Results Negative 01/08/25 14:12 QUESTION #5 FULL TEXT : Do you snore loudly (louder than talking or can be heard through closed doors)? 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 Specify any problems Hx of Preganancy in last 3 No 01/08/25 14:12 Months Nurse Filling Out Transfusion [email or web address] 01/08/25 14:12 & Questions: Date: 01/08/25 01/08/25 14:12 Time: 14:14 01/08/25 14:12 Patient unable to answer at this time (ie. 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 Hx Now Gestational Age (in weeks): EDC: Hx Hx Para Hx Section SAB No 10/12/22 11:53 Active Medications Active Medications: Current Medications Generic Name Dose Route Start Last Admin Trade Name Freq PRN Reason Stop Dose Admin Cefazolin Sodium 2 gm/ N/A 20 mls @ 400 mls/hr 01/16/25 08:40 IV 01/16/25 08:42 PREOP ONE Sodium Chloride 1,000 mls @ 15 mls/hr 01/16/25 07:15 01/16/25 07:47 IV 01/21/25 20:34 15 mls/hr .Q48H PRIMO Administration Protocol PFSH Medical History Ureteral stent present 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 calculus [facility] current use of immunosuppressive drug Crohn's disease Diarrhea Diarrhea Wears hearing aid Wears dentures Cancer Anxiety Thyroid disease Walker as ambulation aid Arthritis Easy bruising TIA (transient ischemic attack) Former smoker COPD (chronic obstructive pulmonary disease) Shortness of breath on exertion History of pain when walking History of echocardiogram History of stress test History of fracture of patella Stage 3b chronic kidney disease (CKD) Osteoporosis Urinary retention Rectal cancer Hydronephrosis Lung cancer Rectal cancer Decreased appetite Abdominal bloating COPD (chronic obstructive pulmonary disease) TIA (transient ischemic attack) Nicotine abuse Depression Anxiety Hypothyroidism COPD exacerbation Chronic bronchitis 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 calculus Hydronephrosis, right Filling defect on imaging study History of rectal cancer Home Medications ?Medication ?Instructions ?Recorded ?Last Taken ?Type bupropion HCl 150 mg 24 hr tablet, 150 mg PO QAM quit smoking 11/28/18 01/16/25 History extended release (Wellbutrin XL) citalopram 40 mg tablet 40 mg PO DAILY Anxiety 04/24/19 01/16/25 History cyanocobalamin (vitamin B-12) 100 mcg IM Q30D Supplement 10/08/19 12/18/24 History 1,000 mcg/mL injection solution cholecalciferol (vitamin D3) 25 25 mcg PO DAILY Supplement 10/09/21 01/15/25 History mcg (1,000 unit) capsule (Vitamin D3) levothyroxine 88 mcg tablet 88 mcg PO DAILY 12/14/23 01/16/25 History albuterol sulfate 90 mcg/actuation 2 puff inhalation Q4H PRN 05/24/24 01/16/25 Rx aerosol inhaler (Ventolin HFA) shortness of breath or wheezing #18 grams potassium chloride 20 mEq 20 meq PO DAILY 12/21/24 01/15/25 History tablet,extended release sodium bicarbonate 650 mg tablet 650 mg PO TID 01/06/25 01/15/25 History Allergy/AdvReac Type Severity Reaction Status Date / Time ciprofloxacin HCl (From Allergy Rash Verified 01/16/25 07:36 Cipro) Penicillins Allergy Hives Verified 01/16/25 07:36 codeine AdvReac makes her Verified 01/16/25 07:36 feel weird magnesium citrate AdvReac Nausea Verified 01/16/25 07:36 NSAIDS (Non-Steroidal AdvReac kidney Verified 01/16/25 07:36 Anti-Inflamma damage r/t long-term usage advised not to use Family History Father Heart disease Mother Heart disease Sister Heart disease Diabetes Other Crohn's disease Surgical History History of cystoscopy History of colonoscopy (~10/2019) History of colostomy History of cholecystectomy History of bowel resection History of hysterectomy History of delivery Social History household members: none Smoking Status: Former smoker Tobacco: How many years used: 53 how long ago did patient quit smoking: Quit 2-5 years prior. second hand exposure: No alcohol intake: never substance use type: does not use caffeine: No what type of physical activity do you participate in: none Review of Systems (Anesthesia) ROS Narrative System reviewed and no additional complaints, except as documented. Physical Exam Const alert, oriented x3 and average body habitus Resp normal respiratory effort, normal air movement and clear to auscultation bilaterally Cardio regular rate, regular rhythm, no murmurs and diaphoretic
[2025-01-16] MEDS: Ipratropium/Albuterol Sulfate 3 ML AMPUL.NEB INHALATION (08:15)
--- NOTE | 2025-01-16 08:28 | EX.PCM.DISCH ---
Discharge Instructions Diet Discharge Diet: No restrictions Activity Discharge Activity: Return to Normal Activity Dressing / Incision Call your doctor if you observe: Fever of 101 or Higher, Inability to urinate and Inability to have a bowel movement Follow Up Care Please Follow Up With: Minal Morrison MD When: The office will call her to make follow-up arrangements Test Results: Test results from this visit will be discussed in further detail at your follow-up appointment, if applicable. Discharge Plan Admission Attending Provider: Minal Morrison Primary Care Provider: Elliot Kang Chi Instructions Print Language: Colombian Discharge Orders/Prescriptions Prescriptions: New oxycodone-acetaminophen 5-325 mg tablet 1 tab PO Q8H PRN (Reason: pain) 3 Days Qty: 10 0RF cephalexin 500 mg capsule 500 mg PO Q12 3 Days Qty: 6 0RF ondansetron 4 mg tablet,disintegrating 4 mg PO Q8H PRN (Reason: nausea and vomiting) Qty: 10 0RF phenazopyridine 100 mg tablet 100 mg PO TID Qty: 30 3RF phenazopyridine 100 mg tablet 100 mg PO TID PRN (Reason: pain) 30 Days Qty: 30 3RF Continued bupropion HCl [Wellbutrin XL] 150 mg tablet extended release 24 hr 150 mg PO QAM albuterol sulfate [Ventolin HFA] 90 mcg/actuation HFA aerosol inhaler 2 puff inhalation Q4H PRN (Reason: shortness of breath or wheezing) Qty: 18 6RF citalopram 40 MG tablet 40 mg PO DAILY cyanocobalamin (vitamin B-12) 1,000 MCG/ML solution 100 mcg IM Q30D Patient Comments: estimated last dose date cholecalciferol (vitamin D3) [Vitamin D3] 25 mcg (1,000 unit) Capsule 25 mcg PO DAILY levothyroxine 88 mcg tablet 88 mcg PO DAILY potassium chloride 20 mEq tablet extended release 20 meq PO DAILY sodium bicarbonate 650 mg tablet 650 mg PO TID Referrals / Follow Up: Elliot Kang Chi, MD [Primary Care Provider] - Disposition Disposition (needs filled in before D/C Order can be placed): Home, Self Care
--- NOTE | 2025-01-16 08:33 | PCM.OPRPT ---
Operative Report (Standard) Operative Information Date of Procedure: 01/16/25 Pre-Operative Diagnosis: 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 and renal stones Post-Operative Diagnosis: Same Surgery/Procedure Performed: Cystoscopy with right ureteroscopy, retrograde pyelogram, laser lithotripsy, stone basket extraction, right ureteral stent change, done with difficulty hat brusher machine: No Type of Anesthesia: General RN Documented Start/Stop Times: Operation Date: 01/16/25 08:40 Case Time Into Pre-Op 01/16/25 07:12 Out of Pre-Op 01/16/25 08:43 Anesthesia Start 01/16/25 08:46 Into Room 01/16/25 08:46 Procedure Start 01/16/25 09:01 Procedure End 01/16/25 10:13 Anesthesia End 01/16/25 10:21 Out of Room 01/16/25 10:21 Into Recovery 01/16/25 10:23 Out of Recovery 01/16/25 10:49 Into Phase II Recovery 01/16/25 10:50 Procedure Start Time: 09:01 Procedure Stop Time: 10:13 Select all DRAINS/GRAFTS/IMPLANTS that apply: Drains Drain details: 6 Greenlandic 22 cm JJ stent Estimated Blood Loss: 5cc Specimen collected: Yes Description of specimen(s) removed: Stone fragments Description of surgery: The patient is a 79-year-old female who makes stones frequently. She underwent a right ureteral stent insertion a few weeks ago for obstructing ureteral stones. She now presents for surgical intervention for the stones. Informed consent was obtained. She was taken to the operating room placed on the operating room table. Anesthesia monitored the head, neck, airway, IV access and vital signs throughout the case. Once anesthesia was appropriate ministered she was placed into dorsolithotomy position was prepped and draped in usual sterile fashion. The cystoscope was inserted through the urethra under direct visualization into the urinary bladder. Her urine was blood-tinged from the beginning. I was unable to pass a Glidewire alongside of the stent as the ureter had narrowed around the stent. I grasped the stent and pulled it through the urethral meatus with some tension on the stent. I attempted to backload a Glidewire and after much difficulty using both the stiff and and the flexible end of the stent, I was finally able to advance the wire through the stent which was then removed. For safety access a second 0.035 Glidewire was passed alongside the first 1. I started with a semirigid ureteroscope access was obtained and the stone was identified in the distal third of the ureter. Using the 200 ?m laser fiber the first stone broke into small pieces and was removed. There was tightness and tension around the ureteroscope and the decision was then made to switch to the flexible ureteroscope. This was advanced over the remaining wire. There was difficulty in advancement of the ureteroscope, but I was able to maneuver it into the renal pelvis where no stone was identified. However, the renal pelvis was still dilated and I was unable to move the ureteroscope as freely as I would have liked. The remaining stone was then isolated and significant amount of time was spent trying to break the stone into smaller pieces which could be safely removed. The laser kept giving the message that the stone was hard. The power settings were advanced 2 separate times and hertz were increased as well. The stone was still difficult to break but some small fragments were broken off. At this time there was some hemorrhage and the decision was made to replace the ureteral stent to allow the swelling to decrease and come back in a few weeks for the remainder of the stone fragments. Using the cystoscope, a fresh 6 Greenlandic 22 cm JJ stent was placed over the wire with good positioning in the renal pelvis as well as the urinary bladder. The bladder was then emptied and she was awakened and taken to the recovery room in good condition. This was an extremely difficult case and there were no complications identified at this time. Surgical Findings: Ureteral edema and narrowing, large hard stone Complications Complications: No Admit VTE Documentation VTE Present on Admission: Yes VTE Mechan Device Prophylaxis: SCD's VTE Pharm Prophylaxis ordered?: No Reason prophylaxis not ordered: Treatment Not Indicated
--- NOTE | 2025-01-16 08:40 | CALC_PTH ---
PATIENT: JOSE DE JESUS GOLD [place] [facility] [id number] AGE/SX: 79/F ROOM: RE01/16/[address]: Dr. Minal Morrison MD : 1945 BED: DIS: 01/16/2025 SPEC #: [id number] RECD: 01/16/25 11:23 STATUS: ELAYNE CAR #: [id number] GABRIELE: 01/16/25 08:[address]: Minal Morrison DEPT: SURGICAL PATHOLOGY RECD BY: Vimal Truong ENTERED: 01/16/25 11:23 SP TYPE: Calculi OTHR DR: Dr. Elliot Kang MD Tissues: CALCULI Procedures: Surgery Specimen Level I HEADER OPERATION: Ureteroscopy, retro, laser, stent change, basket extraction PRE-OP DIAGNOSIS: Urinary tract infection, overactive bladder, mixed incontinence, kidney calculi, history of hysterectomy of benign disease TISSUE SUBMITTED: A- Calculus for analysis GROSS DIAGNOSIS URINARY CALCULI, REMOVAL: * Urinary calculi (gross examination only). * Chemical analysis pending (separate report to follow). GROSS DESCRIPTION Received without fixative labeled with the patient's name and designated calculi for analysis The specimen consists of 3 small black-verduzco calculus fragments measuring in aggregate 5 x 3 x 1 mm.. The entire specimen is submitted for chemical analysis. This is for gross diagnosis only and no sections are submitted. CPT: 23027
[2025-01-16] MEDS: Cefazolin 2 GM in Syringe IV (08:46)
--- NOTE | 2025-01-16 10:26 | PCM.POST.ANE ---
Anesthesia: Postop Eval I Current Vital Signs Temperature: 98.2 F Pulse Rate: 94 Blood Pressure: 139/69 Respiratory Rate: 16 Pulse Ox: 100 Assessment Airway patent: Yes Spontaneous unlabored respirations: Yes nausea: No Vomiting: No Anesthesia Complication: No Fluid Hydration Crystalloid volume administer (ml): 700 Total IV fluid infused: 700 Progress Note Anesthesia document: Postop Eval 1 completed: Yes
--- NOTE | 2025-01-16 12:33 | POSTOPAN2_ITS ---
Anesthesia Postop Eval I Sum Postop Eval Completion status Anesthesia document: Postop Eval 1 completed: Yes Anesthesia Postop Eval I Summary Anesthesia Postop Eval I Summary: Anesthesia Postop Eval I: Assessment Summary Airway patent Yes 01/16/25 10:26 MATERIAL REQUIREMENTS PLANNING [email or web address] Spontaneous unlabored Yes 01/16/25 10:26 MATERIAL REQUIREMENTS PLANNING [email or web address] respirations Mental status nausea No 01/16/25 10:26 MATERIAL REQUIREMENTS PLANNING [email or web address] Vomiting No 01/16/25 10:26 MATERIAL REQUIREMENTS PLANNING [email or web address] Anesthesia Postop Eval I: Fluid Summary Crystalloid volume administer 700 01/16/25 10:26 MATERIAL REQUIREMENTS PLANNING [email or web address] (ml) Colloids volume administered ( ml) Blood Product volume administered (ml) Total IV fluid infused 700 01/16/25 10:26 MATERIAL REQUIREMENTS PLANNING [email or web address] Anesthesia Postop Eval I: Summary Notes Anesthesia Complication No 01/16/25 10:26 MATERIAL REQUIREMENTS PLANNING [email or web address] Anesthesia Complication Comment: Post-operative progress note Anesthesia: Postop Eval II Evaluation Mental status: Awake Pain Level: 0 nausea: No Vomiting: No Complications Anesthesia Complication: No
--- NOTE | 2025-01-16 12:33 | PCM.POSTANE2 ---
Anesthesia Postop Eval I Sum Postop Eval Completion status Anesthesia document: Postop Eval 1 completed: Yes Anesthesia Postop Eval I Summary Anesthesia Postop Eval I Summary: Anesthesia Postop Eval I: Assessment Summary Airway patent Yes 01/16/25 10:26 SLIME PLANT OPERATOR [email or web address] Spontaneous unlabored Yes 01/16/25 10:26 SLIME PLANT OPERATOR [email or web address] respirations Mental status nausea No 01/16/25 10:26 SLIME PLANT OPERATOR [email or web address] Vomiting No 01/16/25 10:26 SLIME PLANT OPERATOR [email or web address] Anesthesia Postop Eval I: Fluid Summary Crystalloid volume administer 700 01/16/25 10:26 SLIME PLANT OPERATOR [email or web address] (ml) Colloids volume administered ( ml) Blood Product volume administered (ml) Total IV fluid infused 700 01/16/25 10:26 SLIME PLANT OPERATOR [email or web address] Anesthesia Postop Eval I: Summary Notes Anesthesia Complication No 01/16/25 10:26 SLIME PLANT OPERATOR [email or web address] Anesthesia Complication Comment: Post-operative progress note Anesthesia: Postop Eval II Evaluation Mental status: Awake Pain Level: 0 nausea: No Vomiting: No Complications Anesthesia Complication: No
--- NOTE | 2025-01-16 12:34 | PCM.POSTANE2 ---
Anesthesia Postop Eval I Sum Postop Eval Completion status Anesthesia document: Postop Eval 1 completed: Yes Anesthesia Postop Eval I Summary Anesthesia Postop Eval I Summary: Anesthesia Postop Eval I: Assessment Summary Airway patent Yes 01/16/25 10:26 [email or web address] Spontaneous unlabored Yes 01/16/25 10:26 [email or web address] [email or web address] respirations Mental status Awake 01/16/25 12:33 nausea No 01/16/25 12:33 Vomiting No 01/16/25 12:33 Anesthesia Postop Eval I: Fluid Summary Crystalloid volume administer 700 01/16/25 10:26 [email or web address] (ml) Colloids volume administered ( ml) Blood Product volume administered (ml) Total IV fluid infused 700 01/16/25 10:26 [email or web address] [email or web address] Anesthesia Postop Eval I: Summary Notes Anesthesia Complication No 01/16/25 12:33 Anesthesia Complication Comment: Post-operative progress note Anesthesia: Postop Eval II Evaluation Mental status: Awake Pain Level: 0 nausea: No Vomiting: No Complications Anesthesia Complication: No
[2025-01-24 16:09] LABS: Ca Oxalate, Monohydrate 100 % (.); Size 3x2 mm (.)
== END 2025-01-16 12:07 | disposition home or self-care (01) ==
LOC: SDC 07:10 → AC 07:11
PROVIDERS: PCP Family Medicine Geriatric Medicine; Referring Provider Urology; Visit Provider Urology
PROC: 0TJ98ZZ Inspection of Ureter, Via Natural or Artificial Opening Endoscopic (ICD-10-PCS; CPT 52352; principal; 2025-01-16 08:30)
DX: N20.2 Calculus of kidney with calculus of ureter (principal); K50.90 Crohn's disease, unspecified, without complications; I48.91 Unspecified atrial fibrillation; N32.81 Overactive bladder; N39.46 Mixed incontinence; E07.9 Disorder of thyroid, unspecified; Z79.890 Hormone replacement therapy; Z79.899 Other long term (current) drug therapy
CPT/HCPCS: 52356; 00918; 76000; 82360; 88300; 94640; C1769; C2625; J2405

== ENCOUNTER 2025-01-19 09:09 | Observation (INO) | payer MEDICARE, OTHER, SELFPAY ==
[2025-01-19 09:10] VITALS: BP 136/87; PULSE 97; RESP 16; TEMP 36.9; O2SAT 92
--- NOTE | 2025-01-19 09:17 | ED.VIS.FEGU ---
HPI HPI - Female History of Present Illness Chief Complaint: Complaint Narrative Narrative: Chief complaint and HPI: General malaise. 79-year-old female with past medical history of Crohn's disease not on immunosuppressive's, colostomy secondary to rectal cancer, urolithiasis status post cystoscopy with right ureteroscopy, laser lithotripsy, and right ureteral stent change on 01/[address] Morrison presents for evaluation of general malaise. I spoke with Dr. Morrison prior to the patient presenting to the emergency department as she informed me that the patient will be coming. The procedure was difficult leading to only part of the stone being removed. Patient states that she was discharged on cephalexin and Azo after the surgery. She states over the last several days she has developed lightheadedness, decreased p.o. intake, nausea, chills, pressure in the right kidney, cough, and watery colostomy output. She denies any fever, emesis, dysuria, hematuria, abdominal pain, back pain. She states this is sometimes how she feels when her urine or stone becomes infected. Review of systems: See HPI Medications: As listed on the chart Allergies: As listed on the chart PFSH: Per chart Vital signs: As listed on the chart. Reviewed. Physical exam: Gen: A&O x3, NAD Head: Normocephalic, atraumatic Eyes: No sclera icterus, conjunctiva clear ENT: Dry mucous membranes Neck: Trachea midline, No JVD CV: RRR, no murmurs, no peripheral edema Resp: Lungs CTA BL, no w/r/c GI: Abd soft, non-distended, non-tender, no r/r/g : No CVA tenderness Musc: Full ROM, no deformity Skin: Warm, dry Neuro: Alert, oriented, grossly intact, sensation intact Psych: Cooperative, appropriate mood and affect [facility] Medical History Ureteral stent present 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 calculus technician terminal and repeater current use of immunosuppressive drug Crohn's disease Diarrhea Diarrhea Wears hearing aid Wears dentures Cancer Anxiety Thyroid disease Walker as ambulation aid Arthritis Easy bruising TIA (transient ischemic attack) Former smoker COPD (chronic obstructive pulmonary disease) Shortness of breath on exertion History of pain when walking History of echocardiogram History of stress test History of fracture of patella Stage 3b chronic kidney disease (CKD) Osteoporosis Urinary retention Rectal cancer Hydronephrosis Lung cancer Rectal cancer Decreased appetite Abdominal bloating COPD (chronic obstructive pulmonary disease) TIA (transient ischemic attack) Nicotine abuse Depression Anxiety Hypothyroidism COPD exacerbation Chronic bronchitis 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 calculus Hydronephrosis, right Filling defect on imaging study History of rectal cancer Home Medications ?Medication ?Instructions ?Recorded ?Last Taken ?Type bupropion HCl 150 mg 24 hr tablet, 150 mg PO QAM quit smoking 11/28/18 01/16/25 History extended release (Wellbutrin XL) citalopram 40 mg tablet 40 mg PO DAILY Anxiety 04/24/19 01/16/25 History cyanocobalamin (vitamin B-12) 100 mcg IM Q30D Supplement 10/08/19 12/18/24 History 1,000 mcg/mL injection solution cholecalciferol (vitamin D3) 25 25 mcg PO DAILY Supplement 10/09/21 01/15/25 History mcg (1,000 unit) capsule (Vitamin D3) levothyroxine 88 mcg tablet 88 mcg PO DAILY 12/14/23 01/16/25 History albuterol sulfate 90 mcg/actuation 2 puff inhalation Q4H PRN 05/24/24 01/16/25 Rx aerosol inhaler (Ventolin HFA) shortness of breath or wheezing #18 grams potassium chloride 20 mEq 20 meq PO DAILY 12/21/24 01/15/25 History tablet,extended release sodium bicarbonate 650 mg tablet 650 mg PO TID 01/06/25 01/15/25 History cephalexin 500 mg capsule 500 mg PO Q12 post-operative 3 01/16/25 Unknown Rx days #6 CAPSULES ondansetron 4 mg disintegrating 4 mg PO Q8H PRN nausea and 01/16/25 Unknown Rx tablet vomiting #10 tabs oxycodone-acetaminophen 5 mg-325 1 tab PO Q8H PRN pain 3 days #10 01/16/25 Unknown Rx mg tablet tabs phenazopyridine 100 mg tablet 100 mg PO TID #30 TABLETS 01/16/25 Unknown Rx phenazopyridine 100 mg tablet 100 mg PO TID PRN pain 30 days #30 01/16/25 Unknown Rx tabs Allergy/AdvReac Type Severity Reaction Status Date / Time ciprofloxacin HCl (From Allergy Rash Verified 01/16/25 07:36 Cipro) Penicillins Allergy Hives Verified 01/16/25 07:36 codeine AdvReac makes her Verified 01/16/25 07:36 feel weird magnesium citrate AdvReac Nausea Verified 01/16/25 07:36 NSAIDS (Non-Steroidal AdvReac kidney Verified 01/16/25 07:36 Anti-Inflamma damage r/t long-term usage advised not to use Family History Father Heart disease Mother Heart disease Sister Heart disease Diabetes Other Crohn's disease Surgical History History of cystoscopy History of colonoscopy (~10/2019) History of colostomy History of cholecystectomy History of bowel resection History of hysterectomy History of delivery Social History household members: none Smoking Status: Former smoker Tobacco: How many years used: 53 how long ago did patient quit smoking: Quit 2-5 years prior. second hand exposure: No alcohol intake: never substance use type: does not use caffeine: No what type of physical activity do you participate in: none EXAM Physical Exam Const Vital Signs: 01/19/25 09:10 01/19/25 11:10 Temperature 98.5 F Temperature Source Oral Pulse Rate 97 75 Respiratory Rate 16 19 H Blood Pressure 136/87 H 129/72 H Blood Pressure Mean 103 91 Pulse Ox 92 93 Oxygen Delivery Method Room Air Room Air MDM MDM MDM Narrative Medical decision making narrative: 79-year-old female with past medical history of Crohn's disease not on immunosuppressive's, colostomy secondary to rectal cancer, urolithiasis status post cystoscopy with right ureteroscopy, laser lithotripsy, and right ureteral stent change on 01/[address] Morrison presents for evaluation of general malaise.I reviewed the urology surgical procedure note on chart review. I also reviewed patient's previous urine cultures. In December she grew out Pseudomonas that was sensitive to fluoroquinolones. Her last culture on 01/23/2025 had no growth. Differential diagnosis includes but is not limited to UTI, pyelonephritis, ureteral obstruction, bacteremia, electrolyte abnormality, TOMÁS, pneumonia, viral illness. NS bolus and Zofran ordered for symptoms. Laboratory workup ordered including chest x-ray and CT abdomen pelvis. EKG reviewed see below. CBC with mild leukocytosis of 11.5. No anemia. CMP with baseline renal insufficiency. Creatinine 1.29. Creatinine was 1.36 on 01/07. Lactic acid unremarkable. Troponin 20. Will get 2-hour troponin. Patient not endorsing chest pain. COVID, flu RSV negative. UA positive for UTI. Given patient's previous urine cultures with Pseudomonas we will give Levaquin. Patient has a rash for ciprofloxacin however has received Levaquin before without any issues. CT abdomen pelvis shows a small amount of gas in the right renal calyces as well as the urinary bladder likely postoperative. Stable positioning of the right ureteral stent. No hydronephrosis. Bilateral nephrolithiasis. There is a couple of mildly dilated fluid-filled small bowel loops in the pelvis which may relate to ileus or mild enteritis. No obstruction. Repeat troponin 21. Again patient not endorsing chest pain. Patient and family updated of all the results. Patient does not feel comfortable discharging home. Given findings for urinary tract infection and recent surgery, Dr. Morrison was consulted and patient was discussed. She will place the patient for admission under observation. Patient and family updated of the plan. After update, Patient began developing thrombophlebitis in her right upper extremity secondary to the IV. This started shortly after starting Levaquin. Levaquin stopped. New IV placed. Ice for comfort. I spoke with the pharmacist given patient's allergies, she has tolerated cephalosporins especially cefepime in the past. Patient's previous Pseudomonas culture was sensitive to cefepime. Cefepime ordered. EKG: Interpreted by me/EM physician: EKG shows normal sinus rhythm without any acute ischemic changes. Heart rate 85 Diagnostic: Interpreted by me/EM physician: Chest x-ray not pneumonia, effusion, cardiomegaly, pneumothorax Impression: 1. UTI with recent cystoscopy, laser lithotripsy, right ureteral stent 2. Dehydration 3. Mild enteritis Lab Data Labs: Laboratory Results - last 24 hr 01/19/25 01/19/25 01/19/25 09:45 09:45 10:28 WBC Cancelled 11.5 H Corrected WBC Cancelled RBC Cancelled 4.31 Hgb Cancelled 12.6 Hct Cancelled 40.3 MCV Cancelled 93.5 MCH Cancelled 29.2 MCHC Cancelled 31.3 L RDW Std Deviation Cancelled 45.9 H RDW Coeff of Osmar Cancelled 13.5 Plt Count Cancelled 245 MPV Cancelled 9.2 Immature Gran % (Auto) Cancelled 0.400 Neut % (Auto) Cancelled 64.2 Lymph % (Auto) Cancelled 15.8 L [place] % (Auto) Cancelled 6.7 Eos % (Auto) Cancelled 12.7 H Baso % (Auto) Cancelled 0.2 Absolute Neuts (auto) Cancelled 7.4 Absolute Lymphs (auto) Cancelled 1.81 Total Counted Cancelled Neutrophils % (Manual) Cancelled Band Neutrophils % Cancelled Lymphocytes % (Manual) Cancelled Monocytes % (Manual) Cancelled Eosinophils % (Manual) Cancelled Basophils % (Manual) Cancelled Metamyelocytes % Cancelled Myelocytes % Cancelled Promyelocytes % Cancelled Blast Cells % Cancelled Plasma Cell % (Manual) Cancelled Other Cells % Cancelled Nucleated RBC % Cancelled 0 Nucleated RBCs/100 WBC Cancelled Differential Comment Cancelled Diff Path Review Cancelled Hypersegmented Neuts Cancelled Atypical Lymphocytes Cancelled Reactive Lymphocytes Cancelled Smudge Cells Cancelled Toxic Granulation Cancelled Toxic Vacuolation Cancelled Dohle Bodies Cancelled Hannah Rods Cancelled Platelet Estimate Cancelled Plt Morphology Comment Cancelled RBC Morphology Cancelled Cancelled Polychromasia Cancelled Hypochromasia Cancelled Basophilic Stippling Cancelled Anisocytosis Cancelled Microcytosis Cancelled Macrocytosis Cancelled Spherocytes Cancelled Sickle Cells Cancelled Target Cells Cancelled Tear Drop Cells Cancelled Ovalocytes Cancelled Stomatocytes Cancelled Kim-[place] Bodies Cancelled Eron Cells Cancelled Bite Cells Cancelled Crenated Cell Cancelled Acanthocytes (Spur) Cancelled Rouleaux Cancelled Schistocytes Cancelled Sodium 136 Potassium 5.0 Chloride 105 Carbon Dioxide 18.3 L Anion Gap 13 BUN 10 Creatinine 1.29 H Est GFR (MDRD) Non-Af 42 L BUN/Creatinine Ratio 7.4 L Glucose 91 Lactic Acid 1.7 Calcium 9.6 Total Bilirubin 0.45 AST 35 H ALT 13 Alkaline Phosphatase 84 Troponin T High Sens 20 H Troponin T Hi Sens 2 Hr Total Protein 7.2 Albumin 3.9 Globulin 3.2 Albumin/Globulin Ratio 1.2 Urine Color Yellow Urine Clarity Clear Urine pH 6.5 Ur Specific [place] 1.010 Urine Protein 30 H Urine Glucose (UA) Normal Urine Ketones Negative Urine Occult Blood 250 H Urine Nitrite Positive H Urine Bilirubin 1 H Urine Urobilinogen 4 H Ur Leukocyte Esterase 100 H Urine RBC 10-25 SEEN Urine WBC 5-10 SEEN Ur Squamous Epith Cells 0 SEEN Urine Bacteria 0 SEEN Urine Mucus 0 SEEN 01/19/25 11:38 WBC Corrected WBC RBC Hgb Hct MCV MCH MCHC RDW Std Deviation RDW Coeff of Osmar Plt Count MPV Immature Gran % (Auto) Neut % (Auto) Lymph % (Auto) [place] % (Auto) Eos % (Auto) Baso % (Auto) Absolute Neuts (auto) Absolute Lymphs (auto) Total Counted Neutrophils % (Manual) Band Neutrophils % Lymphocytes % (Manual) Monocytes % (Manual) Eosinophils % (Manual) Basophils % (Manual) Metamyelocytes % Myelocytes % Promyelocytes % Blast Cells % Plasma Cell % (Manual) Other Cells % Nucleated RBC % Nucleated RBCs/100 WBC Differential Comment Diff Path Review Hypersegmented Neuts Atypical Lymphocytes Reactive Lymphocytes Smudge Cells Toxic Granulation Toxic Vacuolation Dohle Bodies Hannah Rods Platelet Estimate Plt Morphology Comment RBC Morphology Polychromasia Hypochromasia Basophilic Stippling Anisocytosis Microcytosis Macrocytosis Spherocytes Sickle Cells Target Cells Tear Drop Cells Ovalocytes Stomatocytes Kim-[place] Bodies Eron Cells Bite Cells Crenated Cell Acanthocytes (Spur) Rouleaux Schistocytes Sodium Potassium Chloride Carbon Dioxide Anion Gap BUN Creatinine Est GFR (MDRD) Non-Af BUN/Creatinine Ratio Glucose Lactic Acid Calcium Total Bilirubin AST ALT Alkaline Phosphatase Troponin T High Sens Troponin T Hi Sens 2 Hr 21 H Total Protein Albumin Globulin Albumin/Globulin Ratio Urine Color Urine Clarity Urine pH Ur Specific [place] Urine Protein Urine Glucose (UA) Urine Ketones Urine Occult Blood Urine Nitrite Urine Bilirubin Urine Urobilinogen Ur Leukocyte Esterase Urine RBC Urine WBC Ur Squamous Epith Cells Urine Bacteria Urine Mucus Radiography Diagnostic Testing: Clinical Impression(s) from Imaging Studies Abdomen/Pelvis CT 01/19/25 09:26 IMPRESSION: 1. Small amount of gas in the right renal calices as well as in the urinary bladder which may be postoperative. Please correlate. 2. Stable positioning of the right ureteral stent. No significant hydronephrosis. 3. Bilateral nephrolithiasis. 4. A couple of mildly dilated fluid-filled small bowel loops in the pelvis which may relate to ileus or mild enteritis. No high-grade obstruction. Reading Location: [facility] Chest X-Ray 01/19/25 10:42 IMPRESSION: No acute airspace abnormality. Reading Location: [facility] Discharge Plan Triage Chief Complaint: Complaint ED Provider: Jadiel Mahmood Dx/Rx/DC Orders Prescriptions: No Action bupropion HCl [Wellbutrin XL] 150 mg tablet extended release 24 hr 150 mg PO QAM albuterol sulfate [Ventolin HFA] 90 mcg/actuation HFA aerosol inhaler 2 puff inhalation Q4H PRN (Reason: shortness of breath or wheezing) Qty: 18 6RF citalopram 40 MG tablet 40 mg PO DAILY cyanocobalamin (vitamin B-12) 1,000 MCG/ML solution 100 mcg IM Q30D Patient Comments: estimated last dose date cholecalciferol (vitamin D3) [Vitamin D3] 25 mcg (1,000 unit) Capsule 25 mcg PO DAILY levothyroxine 88 mcg tablet 88 mcg PO DAILY potassium chloride 20 mEq tablet extended release 20 meq PO DAILY oxycodone-acetaminophen 5-325 mg tablet 1 tab PO Q8H PRN (Reason: pain) 3 Days Qty: 10 0RF cephalexin 500 mg capsule 500 mg PO Q12 3 Days Qty: 6 0RF ondansetron 4 mg tablet,disintegrating 4 mg PO Q8H PRN (Reason: nausea and vomiting) Qty: 10 0RF phenazopyridine 100 mg tablet 100 mg PO TID Qty: 30 3RF phenazopyridine 100 mg tablet 100 mg PO TID PRN (Reason: pain) 30 Days Qty: 30 3RF sodium bicarbonate 650 mg tablet 650 mg PO TID Primary Care Provider: Elliot Kang Chi Referrals: Elliot Kang Chi, MD [Primary Care Provider] - Print Language: Tamazight
--- NOTE | 2025-01-19 09:26 | CT_ITS ---
PROCEDURE: CT abdomen pelvis with IV contrast REASON FOR EXAM: Pain, urolithiasis TECHNIQUE: Multiple contiguous axial images through the abdomen and pelvis were obtained after the administration of intravenous contrast. Two-dimensional coronal and sagittal reformatted images were reconstructed. Low-dose imaging technique was utilized. COMPARISON: 01/06/2025 FINDINGS: Lung bases are clear. Liver, spleen, pancreas and left adrenal gland are intact. Stable 12 mm right adrenal nodule. Gallbladder is surgically absent with expected mild prominence of the biliary ducts. Kidneys enhance symmetrically. Bilateral renal cortical atrophy. Multiple nonobstructing bilateral renal calculi. No significant hydronephrosis. 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 stent in place. Mild right uroepithelial thickening. Small amount of emphysema in the right renal calices. Trace gas within the bladder which is otherwise intact. Left-sided colostomy. A couple dilated fluid-filled small bowel loops within the pelvis without significant surrounding inflammatory changes. No pelvic free fluid. No free air. Calcified nonaneurysmal abdominal aorta. No suspicious adenopathy. Superficial soft tissues are within normal limits. No acute osseous abnormality. Osteopenia. CT/Abdomen/Pelvis W IV Cont ONLY IMPRESSION: 1. Small amount of gas in the right renal calices as well as in the urinary nick dder which may be postoperative. Please correlate. 2. Stable positioning of the right ureteral stent. No significant hydronephros is. 3. Bilateral nephrolithiasis. 4. A couple of mildly dilated fluid-filled small bowel loops in the pelvis whic h may relate to ileus or mild enteritis. No high-grade obstruction. Reading Location: [facility]
--- NOTE | 2025-01-19 09:26 | EKG12_ITS ---
Test Reason : COMPLAINT Blood Pressure : */* mmHG Vent. Rate : 85 BPM Atrial Rate : 85 BPM P-R Int : 180 ms QRS Dur : 64 ms QT Int : 368 ms P-R-T Axes : 88 -18 74 degrees QTcB Int : 437 ms Normal sinus rhythm Normal ECG Confirmed by KATLYN TERRAZAS, BAO ([id number]), city editor ZULEYMA NEGRO ([id number]) on 01/20/2025 8:20:48 AM Referred By: Confirmed By: BAO POTTS MD
[2025-01-19] MEDS: 0.9% Normal Saline (1000mL) 1,000 ML 1000 ML IV (09:45)
[2025-01-19] MEDS: Ondansetron 4 MG/2 ML Vial IV (09:45)
[2025-01-19 10:16] LABS: ALB/GLOB Ratio 1.2 RATIO (0.9-2.4); AST(SGOT) 35 U/L (<=31); Alanine Aminotransfer ALT/SGPT 13 U/L (<=34); Albumin, Serum 3.9 g/dL (3.4-4.8); Alkaline Phosphatase 84 U/L (35-104); Anion Gap 13 (5-15); BUN 10 mg/dL (4-19); BUN/Creat Ratio 7.4 RATIO (10-20); Calcium,Total 9.6 mg/dL (7.6-11.0); Carbon Dioxide 18.3 mmol/L (21.0-32.0); Chloride 105 mmol/L (98-108); Creatinine, Serum 1.29 mg/dL (0.70-1.20); EST Glomerular Filtration Rate 42 (>60); Globulin 3.2 g/dL (2.2-4.2); Glucose 91 mg/dL (70-99); Protein, Total 7.2 g/dL (5.9-8.4); Sodium Level 136 mmol/L (133-145); Total Bilirubin 0.45 mg/dL (0.00-1.30)
[2025-01-19 10:20] LABS: Lactic Acid 1.7 mmol/L (0.0-2.0)
[2025-01-19 10:30] LABS: Troponin T High Sensitivity 20 ng/L (<=14)
[2025-01-19 10:34] LABS: Bacteria 0 SEEN /hpf (None Seen); Mucous, Urine 0 SEEN /hpf (<or=2+); Squamous Epithelial Cells - UA 0 SEEN /hpf (5-10)
[2025-01-19 10:39] LABS: Absolute Lymphocyte Count 1.81 X10^3/uL (0.83-4.51); Absolute Neutrophil Count 7.4 X10^3/uL (2.0-7.7); Basophil# 0.02 X10^3/uL; Basophil% 0.2 % (0-1); Color, Urine Yellow (Yellow); Eosinophil# 1.45 X10^3/uL; Eosinophils% 12.7 % (0-5); Glucose, Dipstick Normal (Normal); Hematocrit 40.3 % (37-47); Hemoglobin 12.6 g/dL (12.0-15.0); Ketone-Dipstick Negative (Negative); Leukocyte Esterase-Dipstick 100 /ul (Negative); Lymphocyte # 1.81 X10^3/ul (0.83-4.51); Lymphocyte % 15.8 % (19-41); Mean Corp Hgb Conc 31.3 g/dL (32-36); Mean Corpuscular Hgb 29.2 pg (27.0-32.0); Mean Corpuscular Volume 93.5 fL (81-99); Mean Platelet Vol. 9.2 fl (6.2-12.0); Monocyte# 0.77 X10^3/uL; Monocyte% 6.7 % (0-10); NRBC Flagged by Analyzer 0 % (0-5); Neutrophil # 7.35 X10^3/uL (2.7-7.7); Neutrophil % 64.2 % (47-70); Nitrite-Dipstick Positive (Negative); Occult Blood-Urine 250 /ul (Negative); Platelet Count 245 K/mm3 (150-450); Protein-Dipstick 30 mg/dl (Negative); RBC Distribution Width CV 13.5 % (11.6-14.6); RBC Distribution Width SD 45.9 fl (35.1-43.9); Red Blood Count 4.31 M/mm3 (4.2-5.4); Urine Clarity Clear (Clear); Urine Urobilinogen 4 mg/dl (Normal); Urine pH 6.5 (5.0 - 8.0); White Blood Count 11.5 K/mm3 (4.4-11.0)
--- NOTE | 2025-01-19 10:42 | RAD_ITS ---
PROCEDURE: CHEST PA AND LATERAL REASON FOR EXAM: SHORTNESS OF BREATH TECHNIQUE: Two views of the chest COMPARISON: None. FINDINGS: Cardiomediastinal silhouette is within normal limits. Lungs are clear. No sizable pneumothorax. Tenting of the left hemidiaphragm. RAD/Chest PA and Lateral IMPRESSION: No acute airspace abnormality. Reading Location: [facility]
[2025-01-19 10:49] LABS: Urine Bilirubin Dipstick 1 mg/dL (Negative)
[2025-01-19 10:53] LABS: White Blood Cells 5-10 SEEN /hpf (0-5)
[2025-01-19 10:54] LABS: Red Blood Cells-Urine 10-25 SEEN /hpf (0-5)
[2025-01-19 11:10] VITALS: BP 129/72; PULSE 75; RESP 19; O2SAT 93
[2025-01-19] MEDS: levoFLOXacin IV 750 MG/150 ML BAG 100 MG IV (11:35)
[2025-01-19 12:24] LABS: Troponin T High Sens 2 HR 21 ng/L (<=14)
[2025-01-19 13:46] VITALS: BP 116/74; PULSE 75; RESP 16; O2SAT 94
[2025-01-19] MEDS: Cefepime HCl 1 GM in 0.9% Normal Saline (50mL MB+) 50 ML IV (13:51)
[2025-01-19 14:04] VITALS: BP 116/74; PULSE 75; RESP 16; TEMP 36.9; O2SAT 94
[2025-01-19 14:25] VITALS: BMI 20.1
[2025-01-19 15:05] VITALS: BP 139/77; PULSE 77; RESP 16; TEMP 36.9; O2SAT 93
[2025-01-19] MEDS: Lactated Ringers 1,000 ML 75 ML IV (16:35)
[2025-01-19] MEDS: 0.9% Saline Lock 10 ML Syringe IV (16:35)
--- NOTE | 2025-01-19 17:03 | NURSING ---
Discussed ATB treatment with patient and family and they stated that she had an allergic reaction to Levaquin in ER when they started her on it and they changed her ATB to Cefapime. She states her reaction was that her vein reddened in a line up her forearm and the site became itchy and that the ER nurse d/c'd that IV and started a new site. When she arrived to [facility], her orders stated that she was to start back on Levaquin. This nurse discuss the reaction with Dr. Morrison and Levaquin D/C'd and Cefapime restarted. Patient denies any symptoms of allergic reaction at this time. This nurse discuss with pharmacy and they state to complete bag of Cefapime from ER and they will time next dose for 01/20/25.
[2025-01-19 20:22] VITALS: BP 131/71; PULSE 76; RESP 18; TEMP 37.2; O2SAT 95
[2025-01-19] MEDS: Famotidine 20 MG Tablet PO (20:36)
[2025-01-19] MEDS: Acetaminophen 500 MG Tablet 1000 MG PO (20:36)
[2025-01-19] MEDS: Sodium Bicarbonate 650 MG Tablet PO (20:36)
[2025-01-20 04:51] VITALS: BP 141/70; PULSE 74; RESP 18; TEMP 36.3; O2SAT 95
[2025-01-20] MEDS: Sodium Bicarbonate 650 MG Tablet PO ×3 (04:57→20:58)
[2025-01-20] MEDS: Levothyroxine 88 MCG Tablet PO (04:57)
[2025-01-20] MEDS: Lactated Ringers 1,000 ML 75 ML IV ×2 (04:57→19:02)
[2025-01-20] MEDS: Acetaminophen 500 MG Tablet 1000 MG PO ×3 (04:57→20:58)
[2025-01-20 06:33] LABS: Absolute Lymphocyte Count 1.04 X10^3/uL (0.83-4.51); Absolute Neutrophil Count 5.2 X10^3/uL (2.0-7.7); Basophil# 0.01 X10^3/uL; Basophil% 0.1 % (0-1); Eosinophils% 18.8 % (0-5); Hematocrit 35.7 % (37-47); Hemoglobin 11.3 g/dL (12.0-15.0); Lymphocyte # 1.04 X10^3/ul (0.83-4.51); Lymphocyte % 12.2 % (19-41); Mean Corp Hgb Conc 31.7 g/dL (32-36); Mean Corpuscular Hgb 29.4 pg (27.0-32.0); Mean Platelet Vol. 8.9 fl (6.2-12.0); Monocyte# 0.66 X10^3/uL; Monocyte% 7.7 % (0-10); NRBC Flagged by Analyzer 0 % (0-5); Neutrophil # 5.19 X10^3/uL (2.7-7.7); Neutrophil % 60.8 % (47-70); Platelet Count 208 K/mm3 (150-450); RBC Distribution Width CV 13.4 % (11.6-14.6); RBC Distribution Width SD 45.7 fl (35.1-43.9); Red Blood Count 3.84 M/mm3 (4.2-5.4); White Blood Count 8.5 K/mm3 (4.4-11.0)
[2025-01-20 09:36] VITALS: BP 129/52; PULSE 78; RESP 18; TEMP 36.7; O2SAT 94
[2025-01-20] MEDS: buPROPion (XL) 150 MG TABLET.XL PO (09:46)
[2025-01-20] MEDS: Cholecalciferol (VIT D3) 25 MCG TABLET (1,000 UNITS) PO (09:46)
[2025-01-20] MEDS: Citalopram 40 MG TABLET PO (09:46)
[2025-01-20] MEDS: Potassium Chloride Oral Tablet 20 MEQ PO (09:46)
[2025-01-20] MEDS: Famotidine 20 MG Tablet PO (09:46)
[2025-01-20] MEDS: Cefepime HCl 1 GM in 0.9% Normal Saline (50mL MB+) 50 ML IV (09:51)
--- NOTE | 2025-01-20 12:15 | PCM.HP.STD ---
HPI - General General Date of Admission: 01/19/25 Date of Service: 01/20/25 Chief Complaint: Flank pain HPI Narrative JOSE DE JESUS GOLD, is a 79 F who presented to the emergency room yesterday with flank pain, abdominal pain, dizziness and overall not feeling well. She underwent a right ureteroscopy with laser lithotripsy and stent change last week. She typically does not have issues with flank pain even when she has obstructing stones so this is definitely new for her. She does have multiple confounding medical diagnoses. She seems to feel better for short period of time after getting the intravenous antibiotics, and then she feels lousy again within a couple of hours. She is still nauseated and not very hungry. She is still feeling fatigued and not normal. When she feels this way, she usually has an infection and has a history of becoming septic quickly. She is very anxious about being discharged home and would prefer to wait for the culture results. I do not disagree. COUNT INCLUDES THE [facility] Medical History Ureteral stent present 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 calculus skilled nursing current use of immunosuppressive drug Crohn's disease Diarrhea Diarrhea Wears hearing aid Wears dentures Cancer Anxiety Thyroid disease Walker as ambulation aid Arthritis Easy bruising TIA (transient ischemic attack) Former smoker COPD (chronic obstructive pulmonary disease) Shortness of breath on exertion History of pain when walking History of echocardiogram History of stress test History of fracture of patella Stage 3b chronic kidney disease (CKD) Osteoporosis Urinary retention Rectal cancer Hydronephrosis Lung cancer Rectal cancer Decreased appetite Abdominal bloating COPD (chronic obstructive pulmonary disease) TIA (transient ischemic attack) Nicotine abuse Depression Anxiety Hypothyroidism COPD exacerbation Chronic bronchitis 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 calculus Hydronephrosis, right Filling defect on imaging study History of rectal cancer Home Medications ?Medication ?Instructions ?Recorded ?Last Taken ?Type bupropion HCl 150 mg 24 hr tablet, 150 mg PO QAM quit smoking 11/28/18 01/16/25 History extended release (Wellbutrin XL) citalopram 40 mg tablet 40 mg PO DAILY Anxiety 04/24/19 01/16/25 History cyanocobalamin (vitamin B-12) 100 mcg IM Q30D Supplement 10/08/19 12/18/24 History 1,000 mcg/mL injection solution cholecalciferol (vitamin D3) 25 25 mcg PO DAILY Supplement 10/09/21 01/15/25 History mcg (1,000 unit) capsule (Vitamin D3) levothyroxine 88 mcg tablet 88 mcg PO DAILY 12/14/23 01/16/25 History albuterol sulfate 90 mcg/actuation 2 puff inhalation Q4H PRN 05/24/24 01/16/25 Rx aerosol inhaler (Ventolin HFA) shortness of breath or wheezing #18 grams potassium chloride 20 mEq 20 meq PO DAILY 12/21/24 01/15/25 History tablet,extended release sodium bicarbonate 650 mg tablet 650 mg PO TID 01/06/25 01/15/25 History cephalexin 500 mg capsule 500 mg PO Q12 post-operative 3 01/16/25 Unknown Rx days #6 CAPSULES ondansetron 4 mg disintegrating 4 mg PO Q8H PRN nausea and 01/16/25 Unknown Rx tablet vomiting #10 tabs oxycodone-acetaminophen 5 mg-325 1 tab PO Q8H PRN pain 3 days #10 01/16/25 Unknown Rx mg tablet tabs phenazopyridine 100 mg tablet 100 mg PO TID #30 TABLETS 01/16/25 Unknown Rx Allergy/AdvReac Type Severity Reaction Status Date / Time ciprofloxacin HCl (From Allergy Rash Verified 01/16/25 07:36 Cipro) Penicillins Allergy Hives Verified 01/16/25 07:36 codeine AdvReac makes her Verified 01/16/25 07:36 feel weird magnesium citrate AdvReac Nausea Verified 01/16/25 07:36 NSAIDS (Non-Steroidal AdvReac kidney Verified 01/16/25 07:36 Anti-Inflamma damage r/t long-term usage advised not to use Family History Father Heart disease Mother Heart disease Sister Heart disease Diabetes Other Crohn's disease Surgical History History of cystoscopy History of colonoscopy (~10/2019) History of colostomy History of cholecystectomy History of bowel resection History of hysterectomy History of delivery Social History household members: none Smoking Status: Former smoker Tobacco: How many years used: 53 how long ago did patient quit smoking: Quit 2-5 years prior. second hand exposure: No alcohol intake: never substance use type: does not use caffeine: No what type of physical activity do you participate in: none ROS Constitutional Constitutional: Reports systems reviewed and no addt'l complaints, except as documented, chills, fatigue and weakness; Denies fever(s) Eyes Eyes: Reports systems reviewed and no addt'l complaints, except as documented ENT HEENT: Reports systems reviewed and no addt'l complaints, except as documented Cardiovascular Cardiovascular: Reports abdominal pain, chest pain and fatigue Respiratory/Chest Respiratory/Chest: Reports chest tightness; Denies cough or inability to speak Gastrointestinal Gastrointestinal: Reports abdominal pain, bloating and nausea Genitourinary Genitourinary: Reports abdominal discomfort, dysuria, flank pain, urinary incontinence and other Details: Bladder pain Musculoskeletal Musculoskeletal: Reports systems reviewed and no addt'l complaints, except as documented Integumentary Integumentary: Reports systems reviewed and no addt'l complaints, except as documented Neurologic Neurologic: Reports systems reviewed and no addt'l complaints, except as documented Psychiatric Psychiatric: Reports systems reviewed and no addt'l complaints, except as documented Endocrine Endocrinology: Reports systems reviewed and no addt'l complaints, except as documented Hematologic/Lymphatic Hematologic/Lymphatic: Reports systems reviewed and no addt'l complaints, except as documented Allergic/Immunologic Allergic/Immunologic: Reports systems reviewed and no addt'l complaints, except as documented Vital Signs Vital Signs Vital Signs: 01/19/25 13:46 01/19/25 14:04 01/19/25 14:25 Temperature 98.5 F Temperature Source Pulse Rate 75 75 Respiratory Rate 16 16 Respiratory Effort Normal Non-Labored Respiratory Depth Normal Respiratory Pattern Normal Blood Pressure 116/74 116/74 Blood Pressure Mean 88 88 Blood Pressure Source Blood Pressure Position Blood Pressure Location Pulse Ox 94 94 Oxygen Delivery Method Room Air Room Air 01/19/25 15:05 01/19/25 20:22 01/19/25 20:22 Temperature 98.4 F 99 F Temperature Source Oral Oral Pulse Rate 77 76 Respiratory Rate 16 18 Respiratory Effort Respiratory Depth Respiratory Pattern Blood Pressure 139/77 H 131/71 H Blood Pressure Mean 97 91 Blood Pressure Source Blood Pressure Position Blood Pressure Location Pulse Ox 93 95 Oxygen Delivery Method Room Air Room Air Room Air 01/20/25 04:51 01/20/25 09:36 Temperature 97.3 F L 98.1 F Temperature Source Oral Oral Pulse Rate 74 78 Respiratory Rate 18 18 Respiratory Effort Respiratory Depth Respiratory Pattern Blood Pressure 141/70 H 129/52 H Blood Pressure Mean 93 77 Blood Pressure Source Monitor Blood Pressure Position Sitting Blood Pressure Location Right Arm Pulse Ox 95 94 Oxygen Delivery Method Room Air Room Air Weight Weight: 48.353 kg Body Mass Index (BMI) 20.1 Physical Exam Const alert, oriented x3 and no apparent distress General Appearance: cooperative, comfortable and well kempt HEENT normocephalic, head/scalp atraumatic, hearing grossly normal bilaterally, external ears normal, external nose normal and moist oral mucous membranes Eyes General Eye: normal appearance of both eyes Neck supple General: trachea midline Lymph Lymphatic: no lymphedema noted Chest inspection of chest normal Resp normal respiratory effort, normal air movement, no retractions and no use of accessory muscles Cardio regular rate GI soft to palpation GI Narrative: Mildly tender diffusely and mildly distended no CVA tenderness Extremity normal to inspection and no calf tenderness Extremity Narrative: SCDs are in place Skin no rashes or lesions noted, no wounds, no jaundice, no petechiae and no mottling Neuro oriented x3, CN's II-XII intact bilaterally and moves all extremities Psych mental status grossly normal, thought process normal and cooperative Results Lab / Micro Data 01/20/25 06:19 01/19/25 09:45 Labs: Laboratory Results - last 24 hr 01/19/25 11:38: Troponin T Hi Sens 2 Hr 21 H 01/20/25 06:19: WBC 8.5, RBC 3.84 L, Hgb 11.3 L, Hct 35.7 L, MCV 93.0, MCH 29.4, MCHC 31.7 L, RDW Std Deviation 45.7 H, RDW Coeff of Osmar 13.4, Plt Count 208, MPV 8.9, Immature Gran % (Auto) 0.400, Neut % (Auto) 60.8, Lymph % (Auto) 12.2 L, [place] % (Auto) 7.7, Eos % (Auto) 18.8 H, Baso % (Auto) 0.1, Absolute Neuts (auto) 5.2, Absolute Lymphs (auto) 1.04, Nucleated RBC % 0 Micro: Microbiology 01/19/25 09:45 Mucosa - Nose SARS-CoV-2, Influenza & RSV (PCR) - Final Assessment & Plan Assessment/Plan (1) Acute UTI: (2) S/P ureteral stent placement: (3) Kidney stone: (4) Ureteral calculus: (5) Acute flank pain: PLAN: Plan Continue supportive care Continue antibiotics and await culture results Continue plans for repeat ureteroscopy and laser lithotripsy in 2 to 3 weeks
[2025-01-20 13:30] LABS: Anion Gap 8 (5-15); BUN 8 mg/dL (4-19); BUN/Creat Ratio 6.1 RATIO (10-20); Calcium,Total 8.8 mg/dL (7.6-11.0); Carbon Dioxide 19.8 mmol/L (21.0-32.0); Chloride 110 mmol/L (98-108); Creatinine, Serum 1.25 mg/dL (0.70-1.20); EST Glomerular Filtration Rate 44 (>60); Estimated Creatinine Clearance 27.54 ml/min (50-250); Glucose 87 mg/dL (70-99); Potassium 3.8 mmol/L (3.3-5.1); Sodium Level 137 mmol/L (133-145)
[2025-01-20 14:06] VITALS: BP 131/55; PULSE 78; RESP 16; TEMP 37; O2SAT 95
[2025-01-20 21:00] VITALS: BP 124/63; PULSE 70; RESP 17; TEMP 36.8; O2SAT 95
[2025-01-21 03:12] VITALS: BP 120/61; PULSE 80; RESP 16; TEMP 36.6; O2SAT 95
[2025-01-21] MEDS: Acetaminophen 500 MG Tablet 1000 MG PO ×2 (05:33→15:01)
[2025-01-21] MEDS: Sodium Bicarbonate 650 MG Tablet PO ×2 (05:34→15:01)
[2025-01-21] MEDS: Levothyroxine 88 MCG Tablet PO (05:34)
[2025-01-21] MEDS: Lactated Ringers 1,000 ML 75 ML IV (08:25)
[2025-01-21 08:50] VITALS: O2SAT 95
[2025-01-21] MEDS: Potassium Chloride Oral Tablet 20 MEQ PO (09:06)
[2025-01-21] MEDS: Citalopram 40 MG TABLET PO (09:06)
[2025-01-21] MEDS: Famotidine 20 MG Tablet PO (09:07)
[2025-01-21] MEDS: buPROPion (XL) 150 MG TABLET.XL PO (09:07)
[2025-01-21] MEDS: Cholecalciferol (VIT D3) 25 MCG TABLET (1,000 UNITS) PO (09:07)
[2025-01-21 09:18] VITALS: BP 119/62; PULSE 77; RESP 16; TEMP 36.8; O2SAT 94
[2025-01-21] MEDS: Cefepime HCl 1 GM in 0.9% Normal Saline (50mL MB+) 50 ML IV (11:09)
--- NOTE | 2025-01-21 14:23 | CASEMGMT ---
RICHARD CM into pt room, pt sitting up in chair. Pt denies any homegoing needs. Pt states she feels safe to dc home and plans to go home later today.
[2025-01-21 16:15] VITALS: BP 132/71; PULSE 77; RESP 16; TEMP 36.8; O2SAT 95
--- NOTE | 2025-01-21 16:38 | PCM.PN.GU ---
Subjective Subjective Sitting up and eating dinner. Absolutely no complaints today. She is feeling great. Objective Data Objective Data Vital Signs: Vital Signs Temp Pulse Resp BP Pulse Ox O2 Del Method 98.3 F 77 16 132/71 H 95 Room Air 01/21/25 16:15 01/21/25 16:15 01/21/25 16:15 01/21/25 16:15 01/21/25 16:15 01/21/25 16:15 Oxygen Delivery Method Room Air Weight: 48.353 kg Body Mass Index (BMI) 20.1 Intake & Output: Intake and Output for Last 24 Hours 01/19/25 01/20/25 01/21/25 23:59 23:59 23:59 Intake Total 1083.33 / 1083.33 2257.50 / 2607.50 3440 / 3440 Balance 1083.33 / 1083.33 2257.50 / 2607.50 3440 / 3440 Lab / Micro Data 01/20/25 06:19 01/20/25 06:19 Micro: Microbiology 01/19/25 10:28 Urine, Clean Catch Urine Culture - Final Culture exhibits no growth. 01/19/25 09:45 Mucosa - Nose SARS-CoV-2, Influenza & RSV (PCR) - Final Physical Exam Const alert, oriented x3 and no apparent distress HEENT normocephalic Chest inspection of chest normal Resp normal respiratory effort Cardio regular rate Skin no rashes or lesions noted, no jaundice and no petechiae Neuro oriented x3, CN's II-XII intact bilaterally and moves all extremities Psych mental status grossly normal Assessment & Plan Assessment/Plan (1) Acute UTI: (2) Hydronephrosis: (3) S/P ureteral stent placement: (4) Ureteral calculus: PLAN: Plan Urine culture showed no growth will send home on antibiotics cephalosporins since she is improving Continue supportive care Plan for repeat surgical intervention in approximately 2 weeks Home tonight
--- NOTE | 2025-01-21 16:42 | EX.PCM.DISCH ---
Discharge Instructions Diet Discharge Diet: No restrictions Activity Discharge Activity: Return to Normal Activity Dressing / Incision Call your doctor if you observe: Fever of 101 or Higher, Inability to urinate and Inability to have a bowel movement Follow Up Care Please Follow Up With: Minal Morrison MD When: The office will call her to make arrangements Test Results: Test results from this visit will be discussed in further detail at your follow-up appointment, if applicable. Discharge Plan Admission Admit Date/Time: 01/19/25 14:54 Attending Provider: Minal Morrison Primary Care Provider: Elliot Kang Chi Discharge Orders/Prescriptions Prescriptions: New cefdinir 300 mg capsule 300 mg PO BID 3 Days Qty: 6 0RF Continued bupropion HCl [Wellbutrin XL] 150 mg tablet extended release 24 hr 150 mg PO QAM albuterol sulfate [Ventolin HFA] 90 mcg/actuation HFA aerosol inhaler 2 puff inhalation Q4H PRN (Reason: shortness of breath or wheezing) Qty: 18 6RF citalopram 40 MG tablet 40 mg PO DAILY cyanocobalamin (vitamin B-12) 1,000 MCG/ML solution 100 mcg IM Q30D Patient Comments: estimated last dose date cholecalciferol (vitamin D3) [Vitamin D3] 25 mcg (1,000 unit) Capsule 25 mcg PO DAILY levothyroxine 88 mcg tablet 88 mcg PO DAILY potassium chloride 20 mEq tablet extended release 20 meq PO DAILY oxycodone-acetaminophen 5-325 mg tablet 1 tab PO Q8H PRN (Reason: pain) 3 Days Qty: 10 0RF ondansetron 4 mg tablet,disintegrating 4 mg PO Q8H PRN (Reason: nausea and vomiting) Qty: 10 0RF phenazopyridine 100 mg tablet 100 mg PO TID Qty: 30 3RF sodium bicarbonate 650 mg tablet 650 mg PO TID Discontinued cephalexin 500 mg capsule 500 mg PO Q12 3 Days Qty: 6 0RF Referrals / Follow Up: Elliot Kang Chi, MD [Primary Care Provider] - Disposition Disposition (needs filled in before D/C Order can be placed): Home, Self Care
== END 2025-01-21 17:57 | disposition home or self-care (01) ==
LOC: ED 09:57 → MS3 13:26
PROVIDERS: Admitting Provider Urology; Emergency Provider Surgery; PCP Family Medicine Geriatric Medicine; Visit Provider Urology
DX: N13.6 Pyonephrosis (principal); Z93.3 Colostomy status; K50.90 Crohn's disease, unspecified, without complications; J44.9 Chronic obstructive pulmonary disease, unspecified; N18.32 Chronic kidney disease, stage 3b; K52.9 Noninfective gastroenteritis and colitis, unspecified; E86.0 Dehydration; F41.9 Anxiety disorder, unspecified; M81.0 Age-related osteoporosis without current pathological fracture; M19.90 Unspecified osteoarthritis, unspecified site; Z85.118 Personal history of other malignant neoplasm of bronchus and lung; Z85.048 Personal history of other malignant neoplasm of rectum, rectosigmoid junction, and anus; Z79.899 Other long term (current) drug therapy; Z86.73 Personal history of transient ischemic attack (TIA), and cerebral infarction without residual deficits; Z87.891 Personal history of nicotine dependence
CPT/HCPCS: 36415; 71046; 74177; 80048; 80053; 81001; 83605; 84484; 85025; 87040; 87086; 87631; 93005; 94668; 96361; 96365; 96366; 96367; 96375; 99221; 99282; Q9967; A4216; G0378; J2405

== ENCOUNTER 2025-01-23 09:08 | Outpatient (CLI) | payer MEDICARE, OTHER, SELFPAY ==
[2025-01-23 09:21] VITALS: BP 127/76; PULSE 94; RESP 18; TEMP 36.4; O2SAT 94
[2025-01-23] MEDS: 0.9% Normal Saline (1000mL) 1,000 ML 999 ML IV ×2 (09:46→10:48)
[2025-01-23] MEDS: 0.9% NaCl Peripheral Flush Adult IV (09:47)
[2025-01-23 12:11] VITALS: BP 129/70; PULSE 85; RESP 16; TEMP 36.4; O2SAT 96
== END 2025-01-23 23:59 | disposition home or self-care (01) ==
LOC: MEDOUTP 09:09
PROVIDERS: PCP Family Medicine Geriatric Medicine; Referring Provider Family Medicine Geriatric Medicine; Visit Provider Family Medicine Geriatric Medicine
DX: E86.0 Dehydration (principal)
CPT/HCPCS: 96360; 96361; A4216

== ENCOUNTER 2025-01-31 10:52 | Emergency (ER) | payer MEDICARE, OTHER, SELFPAY ==
[2025-01-31] VITALS (10 sets, daily range): BP systolic 122–145; BP diastolic 57–79; PULSE 73–108; RESP 14–26; TEMP 36.7–36.8; O2SAT 95–98; BMI 21.2
--- NOTE | 2025-01-31 11:33 | EKG12_ITS ---
Test Reason : CHEST PAIN Blood Pressure : */* mmHG Vent. Rate : 96 BPM Atrial Rate : 96 BPM P-R Int : 184 ms QRS Dur : 74 ms QT Int : 350 ms P-R-T Axes : 58 24 84 degrees QTcB Int : 442 ms Normal sinus rhythm Nonspecific ST abnormality Abnormal ECG Confirmed by KATLYN TERRAZAS, BAO ([id number]), editorial cartoonist ZULEYMA NEGRO ([id number]) on 02/03/2025 9:21:35 AM Referred By: TIKI Confirmed By: BAO POTTS MD
--- NOTE | 2025-01-31 11:36 | ED.VIS.CHEST ---
HPI History of Present Illness Chief Complaint: Chest Pain Informant: patient Onset/Context/Timing Onset: Today Activity at onset: gradual Timing: Continuous Quality: Positive for Pressure Location: Substernal and Left Chest Worsened By: Nothing Relieved By: Nothing Associated Symptoms: Positive for Nausea, Dyspnea, Cough, Lightheadedness and Palpitations; Negative for Vomiting, Diaphoresis, Fever or Acid Reflux Narrative Narrative: Patient presents with dizziness and lightheadedness that began today. Patient states she was also having some pain in her chest. Patient describes it as pressure. Patient states it is over the lower substernal area and left chest. Patient states nothing makes it better and nothing makes it worse. Patient describes her dizziness as floating. Patient admits to cough and shortness of breath. Patient admits to nausea but denies any vomiting. Patient admits to some palpitations. 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 Crohn's disease Diarrhea Diarrhea Wears hearing aid Wears dentures Cancer Anxiety Thyroid disease Walker as ambulation aid Arthritis Easy bruising TIA (transient ischemic attack) Former smoker COPD (chronic obstructive pulmonary disease) Shortness of breath on exertion History of pain when walking History of echocardiogram History of stress test History of fracture of patella Stage 3b chronic kidney disease (CKD) Osteoporosis Urinary retention Rectal cancer Hydronephrosis Lung cancer Rectal cancer Decreased appetite Abdominal bloating COPD (chronic obstructive pulmonary disease) TIA (transient ischemic attack) Nicotine abuse Depression Anxiety Hypothyroidism COPD exacerbation Chronic bronchitis 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 calculus Hydronephrosis, right Filling defect on imaging study History of rectal cancer Home Medications ?Medication ?Instructions ?Recorded ?Last Taken ?Type bupropion HCl 150 mg 24 hr tablet, 150 mg PO QAM quit smoking 11/28/18 01/31/25 History extended release (Wellbutrin XL) citalopram 40 mg tablet 40 mg PO DAILY Anxiety 04/24/19 01/31/25 History cyanocobalamin (vitamin B-12) 100 mcg IM Q30D Supplement 10/08/19 01/22/25 History 1,000 mcg/mL injection solution cholecalciferol (vitamin D3) 25 25 mcg PO DAILY Supplement 10/09/21 01/31/25 History mcg (1,000 unit) capsule (Vitamin D3) levothyroxine 88 mcg tablet 88 mcg PO DAILY 12/14/23 01/31/25 History albuterol sulfate 90 mcg/actuation 2 puff inhalation Q4H PRN 05/24/24 01/16/25 Rx aerosol inhaler (Ventolin HFA) shortness of breath or wheezing #18 grams potassium chloride 20 mEq 20 meq PO DAILY 12/21/24 01/30/25 History tablet,extended release sodium bicarbonate 650 mg tablet 650 mg PO TID 01/06/25 01/31/25 History ondansetron 4 mg disintegrating 4 mg PO Q8H PRN nausea and 01/16/25 Unknown Rx tablet vomiting #10 tabs meclizine 25 mg tablet 25 mg PO TID PRN dizziness 01/28/25 Unknown History cephalexin 500 mg capsule 500 mg PO Q6 #20 CAPSULES 01/31/25 Unknown Rx ustekinumab 90 mg/mL subcutaneous 90 mg subcut Q56D 01/31/25 01/30/25 History syringe (Stelara) Allergy/AdvReac Type Severity Reaction Status Date / Time levofloxacin Allergy Mild Rash Verified 01/31/25 10:58 ciprofloxacin HCl (From Allergy Rash Verified 01/31/25 10:58 Cipro) Penicillins Allergy Hives Verified 01/31/25 10:58 codeine AdvReac makes her Verified 01/31/25 10:58 feel weird magnesium citrate AdvReac Nausea Verified 01/31/25 10:58 NSAIDS (Non-Steroidal AdvReac kidney Verified 01/31/25 10:58 Anti-Inflamma damage r/t long-term usage advised not to use Family History Father Heart disease Mother Heart disease Sister Heart disease Diabetes Other Crohn's disease Surgical History History of cystoscopy History of colonoscopy (~10/2019) History of colostomy History of cholecystectomy History of bowel resection History of hysterectomy History of delivery Social History household members: none Smoking Status: Former smoker Tobacco: How many years used: 53 how long ago did patient quit smoking: Quit 2-5 years prior. second hand exposure: No alcohol intake: never substance use type: does not use caffeine: No what type of physical activity do you participate in: none ROS ROS ED Constitutional Constitutional ED: Reports chills and subjective; Denies fever(s) Eyes Eyes: Denies blurry vision or change in vision ENT ENT ED: Denies rhinorrhea or sore throat Cardiovascular Cardiovascular: Reports chest pain and palpitations Respiratory/Chest Respiratory/Chest: Reports cough and dyspnea Gastrointestinal Gastrointestinal: Denies nausea or vomiting Genitourinary Genitourinary ED: Denies dysuria or hematuria Musculoskeletal Musculoskeletal: Reports neck pain; Denies back pain Integumentary Denies abscess or rash Neurologic Neurologic: Denies headache(s) or weakness Allergic/Immunologic Allergic/Immunologic ED: Denies mouth swelling or urticaria EXAM Physical Exam Const Vital Signs: 01/31/25 10:53 01/31/25 11:33 01/31/25 11:51 Temperature 98.0 F Temperature Source Oral Pulse Rate 108 H Pulse Rate [Lying] 85 Pulse Rate [Sitting (for 1 minute prior to obtaining)] 95 Pulse Rate [Standing (for 1 minute prior to obtaining)] 103 H Respiratory Rate 26 H Blood Pressure 145/72 H Blood Pressure [Lying] 122/67 H Blood Pressure [Sitting (for 1 minute prior to obtaining)] 142/79 H Blood Pressure [Standing (for 1 minute prior to obtaining)] 132/78 H Blood Pressure Mean 96 Blood Pressure Mean [Lying] 85 Blood Pressure Mean [Sitting (for 1 minute prior to obtaining)] 100 Blood Pressure Mean [Standing (for 1 minute prior to obtaining)] 96 Pulse Ox 98 Oxygen Delivery Method Room Air Room Air 01/31/25 11:52 01/31/25 12:04 01/31/25 13:00 Temperature Temperature Source Pulse Rate 102 H 77 99 Pulse Rate [Lying] Pulse Rate [Sitting (for 1 minute prior to obtaining)] Pulse Rate [Standing (for 1 minute prior to obtaining)] Respiratory Rate 22 H 20 H Blood Pressure 142/79 H 134/73 H 140/74 H Blood Pressure [Lying] Blood Pressure [Sitting (for 1 minute prior to obtaining)] Blood Pressure [Standing (for 1 minute prior to obtaining)] Blood Pressure Mean 100 96 Blood Pressure Mean [Lying] Blood Pressure Mean [Sitting (for 1 minute prior to obtaining)] Blood Pressure Mean [Standing (for 1 minute prior to obtaining)] Pulse Ox 98 98 Oxygen Delivery Method 01/31/25 14:00 01/31/25 15:00 01/31/25 15:55 Temperature Temperature Source Pulse Rate 73 78 78 Pulse Rate [Lying] Pulse Rate [Sitting (for 1 minute prior to obtaining)] Pulse Rate [Standing (for 1 minute prior to obtaining)] Respiratory Rate 17 14 22 H Blood Pressure 122/62 H 133/66 H 122/62 H Blood Pressure [Lying] Blood Pressure [Sitting (for 1 minute prior to obtaining)] Blood Pressure [Standing (for 1 minute prior to obtaining)] Blood Pressure Mean 82 88 82 Blood Pressure Mean [Lying] Blood Pressure Mean [Sitting (for 1 minute prior to obtaining)] Blood Pressure Mean [Standing (for 1 minute prior to obtaining)] Pulse Ox 95 96 97 Oxygen Delivery Method Room Air Room Air Room Air 01/31/25 16:49 01/31/25 17:21 Temperature 98.2 F Temperature Source Pulse Rate 78 78 Pulse Rate [Lying] Pulse Rate [Sitting (for 1 minute prior to obtaining)] Pulse Rate [Standing (for 1 minute prior to obtaining)] Respiratory Rate 19 H 19 H Blood Pressure 125/57 H 124/78 H Blood Pressure [Lying] Blood Pressure [Sitting (for 1 minute prior to obtaining)] Blood Pressure [Standing (for 1 minute prior to obtaining)] Blood Pressure Mean 79 93 Blood Pressure Mean [Lying] Blood Pressure Mean [Sitting (for 1 minute prior to obtaining)] Blood Pressure Mean [Standing (for 1 minute prior to obtaining)] Pulse Ox 95 98 Oxygen Delivery Method Room Air Positive well nourished and well developed Constitutional Narrative: BMI is 21.3 General Appearance ED: well developed and NAD HEENT Reports moist mucous membranes normocephalic and atraumatic Neck supple and no JVD Resp normal respiratory effort and clear to auscultation bilaterally Cardio regular rate and regular rhythm GI soft to palpation, non-tender and non-distended Neuro oriented x3, CN's II-XII intact bilaterally and no sensory deficits noted Sensorium / Orientation: awake and alert Motor Exam: strength 5/5 throughout Psych mental status grossly normal MDM MDM MDM Narrative Medical decision making narrative: Missing his cardiac dysrhythmia, cardiac ischemia, pneumonia, bronchitis, electrolyte abnormality, dehydration, urinary tract infection, and anemia. EKG will be obtained to assess for cardiac dysrhythmia and cardiac ischemia. Chest x-ray will be obtained to assess for pneumonia and bronchitis. CT scan of the brain will be obtained to assess for intracranial bleeding and stroke. CBC will be obtained to assess for leukocytosis and anemia. Basic metabolic profile will be obtained to assess for electrolyte abnormality and renal function. High-sensitivity troponin will be obtained to assess for cardiac ischemia. 2-hour repeat high-sensitivity troponin will be obtained to assess for ongoing cardiac ischemia. BNP will be obtained to assess for congestive heart failure. COVID-19, influenza, and RSV PCR will be obtained to assess for viral illness. Lab Data Attestation: I reviewed the patient's lab results. Lab results narrative: CBC was reviewed and was within normal limits. Metabolic profile was reviewed and showed a slightly elevated creatinine of 1.5. This is consistent with previous results. High-sensitivity troponin was reviewed and was borderline at 22. 2-hour repeat high-sensitivity troponin was reviewed and was 20. BNP was reviewed and was normal at 459. Urinalysis was reviewed. Leukocyte esterase was 500 with 10-25 white blood cells and 1+ bacteria. Occult blood was 250 with 25-50 red blood cells. COVID-19 PCR was reviewed and was negative. Influenza PCR was reviewed and was negative for influenza A and influenza B. RSV PCR was reviewed and was negative. Labs: Laboratory Results - last 24 hr 01/31/25 01/31/25 01/31/25 11:30 12:28 12:56 WBC 8.1 RBC 4.35 Hgb 12.8 Hct 39.9 MCV 91.7 MCH 29.4 MCHC 32.1 RDW Std Deviation 44.0 H RDW Coeff of Osmar 13.1 Plt Count 217 MPV 9.5 Immature Gran % (Auto) 0.200 Neut % (Auto) 65.9 Lymph % (Auto) 21.1 [place] % (Auto) 6.3 Eos % (Auto) 6.4 H Baso % (Auto) 0.1 Absolute Neuts (auto) 5.4 Absolute Lymphs (auto) 1.71 Nucleated RBC % 0 Sodium 141 Potassium 3.8 Chloride 111 H Carbon Dioxide 15.7 L Anion Gap 15 BUN 19 Creatinine 1.50 H Estim Creat Clear Calc 22.95 L Est GFR (MDRD) Non-Af 35 L BUN/Creatinine Ratio 12.3 Glucose 96 Calcium 9.5 Troponin T High Sens 22 H D Troponin T Hi Sens 2 Hr 20 H Troponin T Hi Sens 4Hr NT pro BNP II 459 Urine Color Yellow Urine Clarity Cloudy Urine pH 6.0 Ur Specific [place] 1.030 Urine Protein 100 H Urine Glucose (UA) Normal Urine Ketones Negative Urine Occult Blood 250 H Urine Nitrite Negative Urine Bilirubin Negative Urine Urobilinogen Normal Ur Leukocyte Esterase 500 H Urine RBC 25-50 SEEN Urine WBC 10-25 SEEN Ur Squamous Epith Cells 0-5 SEEN Urine Bacteria 1+ Urine Mucus 0 SEEN 01/31/25 17:04 WBC RBC Hgb Hct MCV MCH MCHC RDW Std Deviation RDW Coeff of Osmar Plt Count MPV Immature Gran % (Auto) Neut % (Auto) Lymph % (Auto) [place] % (Auto) Eos % (Auto) Baso % (Auto) Absolute Neuts (auto) Absolute Lymphs (auto) Nucleated RBC % Sodium Potassium Chloride Carbon Dioxide Anion Gap BUN Creatinine Estim Creat Clear Calc Est GFR (MDRD) Non-Af BUN/Creatinine Ratio Glucose Calcium Troponin T High Sens Troponin T Hi Sens 2 Hr Troponin T Hi Sens 4Hr 19 H NT pro BNP II Urine Color Urine Clarity Urine pH Ur Specific [place] Urine Protein Urine Glucose (UA) Urine Ketones Urine Occult Blood Urine Nitrite Urine Bilirubin Urine Urobilinogen Ur Leukocyte Esterase Urine RBC Urine WBC Ur Squamous Epith Cells Urine Bacteria Urine Mucus Radiography Chest X-Ray - ED: 2 View, Read by ED Physician, Read by Radiologist and No Acute Disease Diagnostic Testing: Clinical Impression(s) from Imaging Studies Chest X-Ray 01/31/25 12:05 IMPRESSION: No acute cardiopulmonary process. Reading Location: [facility] Brain CT 01/31/25 12:15 IMPRESSION: 1. No acute intracranial abnormality. Reading Location: [facility] PA and lateral chest x-ray was obtained. There are 2 views. On my independent interpretation, lung taylor are clear. There is normal cardiac silhouette. Bony thorax is normal. There is no acute process noted. Radiologist also interpreted the x-ray and agrees. CT scan of the brain was obtained. There is no acute intracranial abnormality. This was interpreted by the radiologist and was also independently reviewed by myself. EKG Initial EKG: Attestation: I personally reviewed and interpreted this EKG as follows: Interpretation: Sinus Rhythm (96), No Acute Injury Pattern and Non-Specific ST Changes Comments: EKG was obtained. On my independent interpretation, it showed a normal sinus rhythm with a rate of 96. AK interval, QRS interval, and QTc intervals were all normal. Joffre was normal. There are nonspecific ST-T wave changes. Prior EKG tracings: available for review Prior: Unchanged (01/19/2025) Additional Tests and Interventions Additional Tests or Interventions: Urine culture was ordered. Treatment and Re-Evaluation :: Patient was given aspirin. Patient was given IV fluids. Patient was given a dose of Keflex here. Patient was given a prescription for Keflex. Patient was instructed to follow-up with her primary care physician in 5 to 7 days. Patient understood and was agreeable with the plan. All questions were answered. Discharge Plan Triage Chief Complaint: Chest Pain ED Provider: Ash Mcbride Dx/Rx/DC Orders Clinical Impression: Acute UTI, General weakness Prescriptions: New cephalexin 500 mg capsule 500 mg PO Q6 Qty: 20 0RF No Action bupropion HCl [Wellbutrin XL] 150 mg tablet extended release 24 hr 150 mg PO QAM albuterol sulfate [Ventolin HFA] 90 mcg/actuation HFA aerosol inhaler 2 puff inhalation Q4H PRN (Reason: shortness of breath or wheezing) Qty: 18 6RF citalopram 40 MG tablet 40 mg PO DAILY cyanocobalamin (vitamin B-12) 1,000 MCG/ML solution 100 mcg IM Q30D cholecalciferol (vitamin D3) [Vitamin D3] 25 mcg (1,000 unit) Capsule 25 mcg PO DAILY levothyroxine 88 mcg tablet 88 mcg PO DAILY potassium chloride 20 mEq tablet extended release 20 meq PO DAILY ondansetron 4 mg tablet,disintegrating 4 mg PO Q8H PRN (Reason: nausea and vomiting) Qty: 10 0RF Patient Comments: HASNT NEEDED sodium bicarbonate 650 mg tablet 650 mg PO TID meclizine 25 mg tablet 25 mg PO TID PRN (Reason: dizziness) Stelara 90 mg/mL syringe 90 mg subcut Q56D Primary Care Provider: Elliot Kang Chi Referrals: Minal Morrison MD [Med Staff - Active Staff] - 3-5 Days Elliot Kang Chi, MD [Primary Care Provider] - 3-5 Days Print Language: Palestinian Disposition Disposition: Home, Self Care Discharge Date/Time: 01/31/25 17:21
[2025-01-31 11:47] LABS: Absolute Lymphocyte Count 1.71 X10^3/uL (0.83-4.51); Absolute Neutrophil Count 5.4 X10^3/uL (2.0-7.7); Basophil# 0.01 X10^3/uL; Basophil% 0.1 % (0-1); Eosinophil# 0.52 X10^3/uL; Eosinophils% 6.4 % (0-5); Hematocrit 39.9 % (37-47); Hemoglobin 12.8 g/dL (12.0-15.0); Lymphocyte # 1.71 X10^3/ul (0.83-4.51); Lymphocyte % 21.1 % (19-41); Mean Corp Hgb Conc 32.1 g/dL (32-36); Mean Corpuscular Hgb 29.4 pg (27.0-32.0); Mean Corpuscular Volume 91.7 fL (81-99); Mean Platelet Vol. 9.5 fl (6.2-12.0); Monocyte# 0.51 X10^3/uL; Monocyte% 6.3 % (0-10); NRBC Flagged by Analyzer 0 % (0-5); Neutrophil # 5.35 X10^3/uL (2.7-7.7); Neutrophil % 65.9 % (47-70); Platelet Count 217 K/mm3 (150-450); RBC Distribution Width CV 13.1 % (11.6-14.6); Red Blood Count 4.35 M/mm3 (4.2-5.4); White Blood Count 8.1 K/mm3 (4.4-11.0)
[2025-01-31] MEDS: Aspirin 81 MG TAB.CHEW 324 MG PO (11:47)
--- NOTE | 2025-01-31 12:05 | RAD_ITS ---
PROCEDURE: CHEST PA AND LATERAL 01/31/2025 REASON FOR EXAM: CHEST PAIN TECHNIQUE: Frontal and lateral views of the chest. COMPARISON: 01/19/2025 FINDINGS: The lungs are clear. There is chronic scarring of the left lung base with blunting of the costophrenic angle. No pleural effusion or pneumothorax. The cardiomediastinal silhouette is unremarkable. No acute osseous or soft tissue abnormality. RAD/Chest PA and Lateral IMPRESSION: No acute cardiopulmonary process. Reading Location: [facility]
--- NOTE | 2025-01-31 12:15 | CT_ITS ---
PROCEDURE: BRAIN/HEAD WITHOUT CONTRAST 01/31/2025 REASON FOR EXAM: DIZZINESS TECHNIQUE: Head CT without intravenous contrast. Coronal and Sagittal reconstruction series were provided. One or more dose reduction techniques were used (e.g., Automated exposure control, adjustment of the mA and/or kV according to patient size, use of iterative reconstruction technique. COMPARISON: 04/30/2020 FINDINGS: No acute intracranial hemorrhage. No loss of parikh-white differentiation.The ventricles and sulci are normal in appearance. The osseous structures are unremarkable. No soft tissue abnormality identified. The paranasal sinuses and mastoid air cells are clear. CT/Brain/Head without Contrast IMPRESSION: 1. No acute intracranial abnormality. Reading Location: [facility]
[2025-01-31 13:03] LABS: Anion Gap 15 (5-15); BUN 19 mg/dL (4-19); BUN/Creat Ratio 12.3 RATIO (10-20); Calcium,Total 9.5 mg/dL (7.6-11.0); Carbon Dioxide 15.7 mmol/L (21.0-32.0); Chloride 111 mmol/L (98-108); EST Glomerular Filtration Rate 35 (>60); Estimated Creatinine Clearance 22.95 ml/min (50-250); Glucose 96 mg/dL (70-99); Potassium 3.8 mmol/L (3.3-5.1); Pro- Brain NATRIURETIC PEPTIDE 459 pg/mL (<=1800); Sodium Level 141 mmol/L (133-145); Troponin T High Sensitivity 22 ng/L (<=14)
[2025-01-31 13:03] LABS: Mucous, Urine 0 SEEN /hpf (<or=2+)
[2025-01-31 13:04] LABS: Color, Urine Yellow (Yellow); Glucose, Dipstick Normal (Normal); Ketone-Dipstick Negative (Negative); Leukocyte Esterase-Dipstick 500 /ul (Negative); Nitrite-Dipstick Negative (Negative); Occult Blood-Urine 250 /ul (Negative); Protein-Dipstick 100 mg/dl (Negative); Urine Bilirubin Dipstick Negative (Negative); Urine Clarity Cloudy (Clear); Urine Urobilinogen Normal (Normal)
[2025-01-31 13:44] LABS: Squamous Epithelial Cells - UA 0-5 SEEN /hpf (5-10)
[2025-01-31 13:45] LABS: Red Blood Cells-Urine 25-50 SEEN /hpf (0-5); White Blood Cells 10-25 SEEN /hpf (0-5)
[2025-01-31 13:46] LABS: Bacteria 1+ /hpf (None Seen)
[2025-01-31 13:51] LABS: Troponin T High Sens 2 HR 20 ng/L (<=14)
[2025-01-31] MEDS: 0.9% Normal Saline (1000mL) 1,000 ML 1000 ML IV (13:54)
[2025-01-31] MEDS: Cephalexin 250 MG Capsule 500 MG PO (17:10)
[2025-01-31 17:56] LABS: Troponin T High Sens 4 HR 19 ng/L (<=14)
== END 2025-01-31 17:21 | disposition home or self-care (01) ==
PROVIDERS: Emergency Provider Emergency Medicine; PCP Family Medicine Geriatric Medicine; Visit Provider Emergency Medicine
DX: N39.0 Urinary tract infection, site not specified (principal); J44.1 Chronic obstructive pulmonary disease with (acute) exacerbation; N18.32 Chronic kidney disease, stage 3b; R07.9 Chest pain, unspecified; Z11.52 Encounter for screening for COVID-19; D64.9 Anemia, unspecified; E03.9 Hypothyroidism, unspecified; F32.A Depression, unspecified; R00.2 Palpitations; M54.2 Cervicalgia; F41.9 Anxiety disorder, unspecified; Z79.890 Hormone replacement therapy; Z79.899 Other long term (current) drug therapy; Z87.891 Personal history of nicotine dependence; Z86.73 Personal history of transient ischemic attack (TIA), and cerebral infarction without residual deficits; R06.02 Shortness of breath
CPT/HCPCS: 70450; 71046; 80048; 81001; 83880; 84484; 85025; 87077; 87086; 87088; 87186; 87631; 93005; 96360; 96361; 99285; A4216

== ENCOUNTER 2025-02-03 15:39 | Inpatient (IN) | payer MEDICARE, OTHER, SELFPAY ==
[2025-02-03 15:41] VITALS: BP 123/68; PULSE 91; RESP 15; TEMP 36.4; O2SAT 100
[2025-02-03 15:42] VITALS: BMI 23.5
--- NOTE | 2025-02-03 16:48 | ED.VIS.FALL ---
HPI HPI - Fall History of Present Illness Chief Complaint: Fall Detail of Chief Complaint: Fall Informant: patient and family Narrative Narrative: Patient presents to the emergency department after sustaining a fall. Patient states that she had gone to the bathroom to take her shirt off and change it. Patient lifted a shirt up overhead and then next thing she knows she is falling. She tried to grab a towel rack and fell onto the ground. Denies regular head. No loss of consciousness. This occurred approximately 2:15 PM. She was able to scoot herself on her bottom to call for help and her daughter came and helped get her up. She has been able to bear weight and ambulate with her walker since. She normally uses a walker. Patient denies feeling lightheaded or dizzy before the fall. Currently on Keflex being treated for UTI. She has had no vomiting. She has a colostomy and has had some watery stools which is chronic but may be a little worse than usual. Daughter is worried she may be dehydrated. [facility] Medical History Ureteral stent present 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 calculus [facility] current use of immunosuppressive drug Crohn's disease Diarrhea Diarrhea Wears hearing aid Wears dentures Cancer Anxiety Thyroid disease Walker as ambulation aid Arthritis Easy bruising TIA (transient ischemic attack) Former smoker COPD (chronic obstructive pulmonary disease) Shortness of breath on exertion History of pain when walking History of echocardiogram History of stress test History of fracture of patella Stage 3b chronic kidney disease (CKD) Osteoporosis Urinary retention Rectal cancer Hydronephrosis Lung cancer Rectal cancer Decreased appetite Abdominal bloating COPD (chronic obstructive pulmonary disease) TIA (transient ischemic attack) Nicotine abuse Depression Anxiety Hypothyroidism COPD exacerbation Chronic bronchitis 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 calculus Hydronephrosis, right Filling defect on imaging study History of rectal cancer Home Medications ?Medication ?Instructions ?Recorded ?Last Taken ?Type bupropion HCl 150 mg 24 hr tablet, 150 mg PO QAM quit smoking 11/28/18 01/31/25 History extended release (Wellbutrin XL) citalopram 40 mg tablet 40 mg PO DAILY Anxiety 04/24/19 01/31/25 History cyanocobalamin (vitamin B-12) 100 mcg IM Q30D Supplement 10/08/19 01/22/25 History 1,000 mcg/mL injection solution cholecalciferol (vitamin D3) 25 25 mcg PO DAILY Supplement 10/09/21 01/31/25 History mcg (1,000 unit) capsule (Vitamin D3) levothyroxine 88 mcg tablet 88 mcg PO DAILY 12/14/23 01/31/25 History albuterol sulfate 90 mcg/actuation 2 puff inhalation Q4H PRN 05/24/24 01/16/25 Rx aerosol inhaler (Ventolin HFA) shortness of breath or wheezing #18 grams potassium chloride 20 mEq 20 meq PO DAILY 12/21/24 01/30/25 History tablet,extended release sodium bicarbonate 650 mg tablet 650 mg PO TID 01/06/25 01/31/25 History ondansetron 4 mg disintegrating 4 mg PO Q8H PRN nausea and 01/16/25 Unknown Rx tablet vomiting #10 tabs meclizine 25 mg tablet 25 mg PO TID PRN dizziness 01/28/25 Unknown History cephalexin 500 mg capsule 500 mg PO Q6 #20 CAPSULES 01/31/25 Unknown Rx ustekinumab 90 mg/mL subcutaneous 90 mg subcut Q56D 01/31/25 01/30/25 History syringe (Stelara) Allergy/AdvReac Type Severity Reaction Status Date / Time levofloxacin Allergy Mild Rash Verified 02/03/25 15:41 ciprofloxacin HCl (From Allergy Rash Verified 02/03/25 15:41 Cipro) Penicillins Allergy Hives Verified 02/03/25 15:41 codeine AdvReac makes her Verified 02/03/25 15:41 feel weird magnesium citrate AdvReac Nausea Verified 02/03/25 15:41 NSAIDS (Non-Steroidal AdvReac kidney Verified 02/03/25 15:41 Anti-Inflamma damage r/t long-term usage advised not to use Family History Father Heart disease Mother Heart disease Sister Heart disease Diabetes Other Crohn's disease Surgical History History of cystoscopy History of colonoscopy (~10/2019) History of colostomy History of cholecystectomy History of bowel resection History of hysterectomy History of delivery Social History household members: none Smoking Status: Former smoker Tobacco: How many years used: 53 how long ago did patient quit smoking: Quit 2-5 years prior. second hand exposure: No alcohol intake: never substance use type: does not use caffeine: No what type of physical activity do you participate in: none ROS ROS ED Review of Systems ROS Unobtainable: other Constitutional Constitutional ED: Reports lethargy; Denies chills, fever(s), sweats or weight loss Eyes Eyes: Denies blurry vision, change in vision or diplopia ENT ENT ED: Denies rhinorrhea or sore throat Cardiovascular Cardiovascular: Denies chest pain, orthopnea or racing heartbeat Respiratory/Chest Respiratory/Chest: Denies cough, dyspnea, dyspnea on exertion, orthopnea or sputum Gastrointestinal Gastrointestinal: Denies abdominal pain, diarrhea, nausea or vomiting Genitourinary Genitourinary ED: Denies dysuria, hematuria or urinary frequency Musculoskeletal Musculoskeletal: Reports other Details: Bilateral knee pain/injury, right foot pain ; Denies arthralgias, back pain, myalgias or neck pain Integumentary Denies abscess, Abrasions or rash Neurologic Neurologic: Denies headache(s) or weakness Psychiatric Psychiatric: Denies anxiety, depression or suicidal thoughts Endocrine Endocrinology: Denies polydipsia, polyphagia or polyuria Hematologic/Lymphatic Hematologic/Lymphatic: Denies easy bleeding, easy bruising or lymphadenopathy Allergic/Immunologic Allergic/Immunologic ED: Denies mouth swelling, tongue swelling or urticaria EXAM Physical Exam Const Vital Signs: 02/03/25 15:41 02/03/25 16:50 Temperature 97.6 F L Temperature Source Temporal Pulse Rate 91 Respiratory Rate 15 Respiratory Effort Normal Respiratory Depth Normal Respiratory Pattern Normal Blood Pressure 123/68 H Blood Pressure Mean 86 Pulse Ox 100 Oxygen Delivery Method Room Air Room Air Positive well nourished and well developed General Appearance ED: well developed and NAD HEENT Reports TM's clear and moist mucous membranes normocephalic and atraumatic; Negative for trauma or tenderness Tympanic Membrane ED: Yes TM's clear Eyes PERRL and EOMs intact bilaterally General Eye ED: Negative for pale conjunctiva or scleral icterus Neck no lymphadenopathy, supple and no JVD General: Negative for tenderness Chest Wall inspection of chest normal and palpation of chest normal Chest: Negative for tenderness Resp normal respiratory effort and clear to auscultation bilaterally Effort and Inspection: Negative for respiratory distress or pain with movement Auscultation: Negative for rhonchi, wheezes or diminished lung sounds Cardio regular rate, regular rhythm, S1 normal heart sound, S2 normal heart sound and no murmurs Peripheral Pulses: pulses 2+ throughout GI normal to inspection, nondistended, normoactive bowel sounds, soft to palpation, non-tender, non-distended and no masses Back/Spine no CVA tenderness and no thoracic nor lumbar tenderness Extremity Extremity Narrative: Right knee-patient has some mild diffuse tenderness to the anterior aspect of the knee. She has good range of motion flexion extension. Ligamentously stable. No obvious deformity. Neurovascular intact distally. Left knee-mild soft tissue swelling diffusely. Small joint effusion. No obvious deformity. Ligamentously stable. Neurovascular intact distally. Right foot-mild tenderness palpation over the lateral aspect of the foot. No obvious deformity. Mild area of ecchymosis and bruising proximal to the base of the fifth metatarsal. General Extremety ED: Negative for edema General Extremity: Negative for edema Neuro oriented x3, CN's II-XII intact bilaterally, no sensory deficits noted and gait normal Sensorium / Orientation: awake, alert, oriented to person, oriented to place and oriented to time Motor Exam: strength 5/5 throughout and strength abnormal Psych mental status grossly normal Skin no rashes or lesions noted and no wounds MDM MDM MDM Narrative Medical decision making narrative: Patient presents after a fall at home today. Scheduled to have surgery this week with Dr. Morrison for right kidney stone. She currently had a stent. On an antibiotic for UTI. IV line established. CBC with differential obtained for white count 10.5 with hemoglobin 12 and platelet count of 229. Chemistries unremarkable. X-rays of bilateral knees and right foot obtained showed no fractures. Family concerned that patient may not be able to manage being home alone as she normally walks with a walker and now has injured both lower extremities. They are concerned about her being able to go home. Will have social director evaluate patient for possible admission or admission to the transitional care unit. Patient was seen by social director and recommended hospital admission for possible placement. Will discuss with hospitalist. Lab Data Attestation: I reviewed the patient's lab results. Labs: Laboratory Results - last 24 hr 02/03/25 02/03/25 17:22 18:48 WBC 10.5 RBC 4.20 Hgb 12.4 Hct 39.2 MCV 93.3 MCH 29.5 MCHC 31.6 L RDW Std Deviation 45.3 H RDW Coeff of Osmar 13.3 Plt Count 229 MPV 9.1 Immature Gran % (Auto) 0.400 Neut % (Auto) 71.8 H Lymph % (Auto) 16.6 L [place] % (Auto) 4.6 Eos % (Auto) 6.4 H Baso % (Auto) 0.2 Absolute Neuts (auto) 7.5 Absolute Lymphs (auto) 1.74 Nucleated RBC % 0 Sodium 135 Potassium 5.5 H Chloride 110 H Carbon Dioxide 12.2 L Anion Gap 12 BUN 16 Creatinine 1.24 H Est GFR (MDRD) Non-Af 44 L BUN/Creatinine Ratio 12.7 Glucose 93 Calcium 8.9 Urine Color Yellow Urine Clarity Clear Urine pH 6.0 Ur Specific [place] 1.010 Urine Protein 30 H Urine Glucose (UA) Normal Urine Ketones Negative Urine Occult Blood 250 H Urine Nitrite Negative Urine Bilirubin Negative Urine Urobilinogen Normal Ur Leukocyte Esterase 500 H Radiography Diagnostic Testing: Clinical Impression(s) from Imaging Studies Foot X-Ray 02/03/25 17:30 IMPRESSION: SOFT TISSUE SWELLING. NO FRACTURE IDENTIFIED. Reading Location: [facility] Knee X-Ray 02/03/25 17:30 IMPRESSION: DEGENERATIVE OSTEOARTHROSIS. NO ACUTE FINDINGS. Reading Location: [facility] Knee X-Ray 02/03/25 17:30 IMPRESSION: DEGENERATIVE OSTEOARTHROSIS. NO ACUTE FINDINGS. Reading Location: [facility] Three-view x-rays of the right foot obtained interpreted by myself as degenerative changes without evidence of a fracture. Radiology in agreement. 4 view x-rays of bilateral knees obtained interpreted by myself as no evidence of fractures but did show degenerative changes. Radiology in agreement. Discharge Plan Triage Chief Complaint: Fall ED Provider: Power Saleem Dx/Rx/DC Orders Clinical Impression: Fall, Contusion of knee, Foot sprain, Difficulty in walking Prescriptions: No Action bupropion HCl [Wellbutrin XL] 150 mg tablet extended release 24 hr 150 mg PO QAM albuterol sulfate [Ventolin HFA] 90 mcg/actuation HFA aerosol inhaler 2 puff inhalation Q4H PRN (Reason: shortness of breath or wheezing) Qty: 18 6RF citalopram 40 MG tablet 40 mg PO DAILY cyanocobalamin (vitamin B-12) 1,000 MCG/ML solution 100 mcg IM Q30D cholecalciferol (vitamin D3) [Vitamin D3] 25 mcg (1,000 unit) Capsule 25 mcg PO DAILY levothyroxine 88 mcg tablet 88 mcg PO DAILY potassium chloride 20 mEq tablet extended release 20 meq PO DAILY ondansetron 4 mg tablet,disintegrating 4 mg PO Q8H PRN (Reason: nausea and vomiting) Qty: 10 0RF Patient Comments: HASNT NEEDED sodium bicarbonate 650 mg tablet 650 mg PO TID meclizine 25 mg tablet 25 mg PO TID PRN (Reason: dizziness) Stelara 90 mg/mL syringe 90 mg subcut Q56D cephalexin 500 mg capsule 500 mg PO Q6 Qty: 20 0RF Primary Care Provider: Elliot Kang Chi Referrals: Elliot Kang Chi, MD [Primary Care Provider] - Print Language: Italian Disposition Disposition: Acute Care Hospital [facility]
[2025-02-03] MEDS: 0.9% Normal Saline (1000mL) 1,000 ML 1000 ML IV (17:30)
--- NOTE | 2025-02-03 17:30 | RAD_ITS ---
PROCEDURE: FOOT MIN 3 VIEWS 02/03/2025 REASON FOR EXAM: 79-year-old female, FALL TECHNIQUE: 3 views of the right foot. COMPARISON: None. FINDINGS: Visualization is limited by severe diffuse osteopenia and motion artifact. Bones: No obvious fracture. Diffuse osseous demineralization. Joints: Normal alignment. Mild degenerative changes. Soft tissues: Mild soft tissue swelling at the ankle. Other: No radiopaque foreign body. RAD/Foot min 3 Views IMPRESSION: SOFT TISSUE SWELLING. NO FRACTURE IDENTIFIED. Reading Location: [id number]
--- NOTE | 2025-02-03 17:30 | RAD_ITS ---
PROCEDURE: KNEE 4 OR MORE VIEWS 02/03/2025 REASON FOR EXAM: FALL TECHNIQUE: 4 view(s) of the left knee COMPARISON: Left knee radiographs 05/06/2019. FINDINGS: Bones: Diffuse osseous demineralization. No acute fracture. Joints: Moderate degenerative changes. Effusion: No effusion. Soft tissues: Soft tissues are unremarkable. RAD/Knee 4 or More Views IMPRESSION: DEGENERATIVE OSTEOARTHROSIS. NO ACUTE FINDINGS. Reading Location: [id number]
--- NOTE | 2025-02-03 17:30 | RAD_ITS ---
PROCEDURE: KNEE 4 OR MORE VIEWS 02/03/2025 REASON FOR EXAM: FALL TECHNIQUE: 4 view(s) of the right knee COMPARISON: Right knee radiographs 08/08/2022. FINDINGS: Bones: Diffuse osseous demineralization. No obvious acute fracture. Joints: Moderate degenerative changes. Effusion: No effusion. Soft tissues: Soft tissues are unremarkable. RAD/Knee 4 or More Views IMPRESSION: DEGENERATIVE OSTEOARTHROSIS. NO ACUTE FINDINGS. Reading Location: [id number]
[2025-02-03 17:40] LABS: Absolute Lymphocyte Count 1.74 X10^3/uL (0.83-4.51); Absolute Neutrophil Count 7.5 X10^3/uL (2.0-7.7); Basophil# 0.02 X10^3/uL; Basophil% 0.2 % (0-1); Eosinophil# 0.67 X10^3/uL; Eosinophils% 6.4 % (0-5); Hematocrit 39.2 % (37-47); Hemoglobin 12.4 g/dL (12.0-15.0); Lymphocyte # 1.74 X10^3/ul (0.83-4.51); Lymphocyte % 16.6 % (19-41); Mean Corp Hgb Conc 31.6 g/dL (32-36); Mean Corpuscular Hgb 29.5 pg (27.0-32.0); Mean Corpuscular Volume 93.3 fL (81-99); Mean Platelet Vol. 9.1 fl (6.2-12.0); Monocyte# 0.48 X10^3/uL; Monocyte% 4.6 % (0-10); NRBC Flagged by Analyzer 0 % (0-5); Neutrophil # 7.51 X10^3/uL (2.7-7.7); Neutrophil % 71.8 % (47-70); Platelet Count 229 K/mm3 (150-450); RBC Distribution Width CV 13.3 % (11.6-14.6); RBC Distribution Width SD 45.3 fl (35.1-43.9); White Blood Count 10.5 K/mm3 (4.4-11.0)
[2025-02-03 18:10] LABS: Anion Gap 12 (5-15); BUN 16 mg/dL (4-19); BUN/Creat Ratio 12.7 RATIO (10-20); Calcium,Total 8.9 mg/dL (7.6-11.0); Carbon Dioxide 12.2 mmol/L (21.0-32.0); Chloride 110 mmol/L (98-108); Creatinine, Serum 1.24 mg/dL (0.70-1.20); EST Glomerular Filtration Rate 44 (>60); Glucose 93 mg/dL (70-99); Potassium 5.5 mmol/L (3.3-5.1); Sodium Level 135 mmol/L (133-145)
[2025-02-03 18:58] LABS: Bacteria 0 SEEN /hpf (None Seen); Mucous, Urine 0 SEEN /hpf (<or=2+)
[2025-02-03] MEDS: Acetaminophen 500 MG Tablet PO (18:59)
[2025-02-03 19:13] LABS: Color, Urine Yellow (Yellow); Glucose, Dipstick Normal (Normal); Ketone-Dipstick Negative (Negative); Leukocyte Esterase-Dipstick 500 /ul (Negative); Nitrite-Dipstick Negative (Negative); Occult Blood-Urine 250 /ul (Negative); Protein-Dipstick 30 mg/dl (Negative); Urine Bilirubin Dipstick Negative (Negative); Urine Clarity Clear (Clear); Urine Urobilinogen Normal (Normal)
[2025-02-03 19:25] LABS: Red Blood Cells-Urine 50-100 SEEN /hpf (0-5); White Blood Cells 5-10 SEEN /hpf (0-5)
[2025-02-03 19:26] LABS: Squamous Epithelial Cells - UA 0-5 SEEN /hpf (5-10)
[2025-02-03 19:27] LABS: Hyaline Cast 0-5 SEEN /lpf (0-5)
--- NOTE | 2025-02-03 19:36 | PCM.HP.STD ---
[facility] - General General Date of Admission: 02/03/25 Date of Service: 02/03/25 Chief Complaint: Fall with injury [facility] Nichelle GOLD, is a 79 F who presents to the emergency room with chief complaint of fall at home. Patient was apparently changing her shirt at approximately 2:00 this afternoon with her arms overhead she lost balance and fell hard on her knees. While x-rays are negative fractures she has swelling of both knees, she also complains of pain in dorsum of right foot which was also negative for fracture. She is now no longer able to ambulate safely without significant pain. She rates her pain currently 9 out of 10 despite having received Tylenol.. Patient has a significant recent history of UTI and also ureteric stent for kidney stone which is planned to be removed by surgery on of this week. Laboratory studies are unremarkable. Patient denies hitting her head or any loss of consciousness during her fall. She will be admitted due to pain and inability to ambulate and likely need for short-term placement with rehab. 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 drug Crohn's disease Diarrhea Diarrhea Wears hearing aid Wears dentures Cancer Anxiety Thyroid disease Walker as ambulation aid Arthritis Easy bruising TIA (transient ischemic attack) Former smoker COPD (chronic obstructive pulmonary disease) Shortness of breath on exertion History of pain when walking History of echocardiogram History of stress test History of fracture of patella Stage 3b chronic kidney disease (CKD) Osteoporosis Urinary retention Rectal cancer Hydronephrosis Lung cancer Rectal cancer Decreased appetite Abdominal bloating COPD (chronic obstructive pulmonary disease) TIA (transient ischemic attack) Nicotine abuse Depression Anxiety Hypothyroidism COPD exacerbation Chronic bronchitis 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 calculus Hydronephrosis, right Filling defect on imaging study History of rectal cancer Home Medications ?Medication ?Instructions ?Recorded ?Last Taken ?Type bupropion HCl 150 mg 24 hr tablet, 150 mg PO QAM quit smoking 11/28/18 02/03/25 History extended release (Wellbutrin XL) citalopram 40 mg tablet 40 mg PO DAILY Anxiety 04/24/19 02/03/25 History cyanocobalamin (vitamin B-12) 100 mcg IM Q30D Supplement 10/08/19 01/22/25 History 1,000 mcg/mL injection solution cholecalciferol (vitamin D3) 25 25 mcg PO DAILY Supplement 10/09/21 02/03/25 History mcg (1,000 unit) capsule (Vitamin D3) levothyroxine 88 mcg tablet 88 mcg PO DAILY 12/14/23 02/03/25 History albuterol sulfate 90 mcg/actuation 2 puff inhalation Q4H PRN 05/24/24 01/16/25 Rx aerosol inhaler (Ventolin HFA) shortness of breath or wheezing #18 grams potassium chloride 20 mEq 20 meq PO DAILY 12/21/24 02/03/25 History tablet,extended release sodium bicarbonate 650 mg tablet 650 mg PO TID 01/06/25 02/03/25 History ondansetron 4 mg disintegrating 4 mg PO Q8H PRN nausea and 01/16/25 Unknown Rx tablet vomiting #10 tabs ustekinumab 90 mg/mL subcutaneous 90 mg subcut Q56D 01/31/25 01/30/25 History syringe (Stelara) cephalexin 500 mg capsule 500 mg PO Q6H 02/03/25 02/03/25 History Allergy/AdvReac Type Severity Reaction Status Date / Time levofloxacin Allergy Mild Rash Verified 02/03/25 15:41 ciprofloxacin HCl (From Allergy Rash Verified 02/03/25 15:41 Cipro) Penicillins Allergy Hives Verified 02/03/25 15:41 codeine AdvReac makes her Verified 02/03/25 15:41 feel weird magnesium citrate AdvReac Nausea Verified 02/03/25 15:41 NSAIDS (Non-Steroidal AdvReac kidney Verified 02/03/25 15:41 Anti-Inflamma damage r/t long-term usage advised not to use Family History Father Heart disease Mother Heart disease Sister Heart disease Diabetes Other Crohn's disease Surgical History History of cystoscopy History of colonoscopy (~10/2019) History of colostomy History of cholecystectomy History of bowel resection History of hysterectomy History of delivery Social History household members: none Smoking Status: Former smoker Tobacco: How many years used: 53 how long ago did patient quit smoking: Quit 2-5 years prior. second hand exposure: No alcohol intake: never substance use type: does not use caffeine: No what type of physical activity do you participate in: none ROS Constitutional Constitutional: Denies chills or fever(s) Eyes Eyes: Denies blurry vision ENT HEENT: Denies abnormal hearing Cardiovascular Cardiovascular: Denies chest pain Respiratory/Chest Respiratory/Chest: Denies shortness of breath at rest Gastrointestinal Gastrointestinal: Denies abdominal pain Genitourinary Genitourinary: Denies dysuria Musculoskeletal Musculoskeletal: Reports extremity pain, joint pain, joint swelling, limited range of motion and muscle weakness; Denies back pain Integumentary Integumentary: Denies dry skin Neurologic Neurologic: Reports abnormal gait; Denies abnormal speech or confusion Psychiatric Psychiatric: Denies anxiety Vital Signs Vital Signs Vital Signs: 02/03/25 15:41 02/03/25 16:50 Temperature 97.6 F L Temperature Source Temporal Pulse Rate 91 Respiratory Rate 15 Respiratory Effort Normal Respiratory Depth Normal Respiratory Pattern Normal Blood Pressure 123/68 H Blood Pressure Mean 86 Pulse Ox 100 Oxygen Delivery Method Room Air Room Air Weight Weight: 124 lb 8.979 oz Body Mass Index (BMI) 23.5 Physical Exam Const alert and oriented x3 General Appearance: cooperative HEENT normocephalic and head/scalp atraumatic Eyes PERRL Neck no lymphadenopathy Lymph Lymphatic: no lymphadenopathy noted Cardio regular rate, regular rhythm, S1 normal heart sound, S2 normal heart sound, no murmurs, no rub and no gallops GI soft to palpation, non-tender and non-distended Extremity normal capillary refill Extremity Narrative: Left knee 2+ edema decreased range of motion tender to palp patient over the patella, right knee 1+ edema, knee joint stable tender to palpation, dorsum right soap tender over second and third metatarsal proximally and no fracture. Skin General Skin Exam: no breakdown Neuro no focal motor deficits and no sensory deficits noted Speech: speech normal Psych thought process normal, cooperative and affect normal Appearance: appropriate Results Lab / Micro Data 02/03/25 17:22 02/03/25 17:22 Labs: Laboratory Results - last 24 hr 02/03/25 17:22: WBC 10.5, RBC 4.20, Hgb 12.4, Hct 39.2, MCV 93.3, MCH 29.5, MCHC 31.6 L, RDW Std Deviation 45.3 H, RDW Coeff of Osmar 13.3, Plt Count 229, MPV 9.1, Immature Gran % (Auto) 0.400, Neut % (Auto) 71.8 H, Lymph % (Auto) 16.6 L, [place] % (Auto) 4.6, Eos % (Auto) 6.4 H, Baso % (Auto) 0.2, Absolute Neuts (auto) 7.5, Absolute Lymphs (auto) 1.74, Nucleated RBC % 0, Sodium 135, Potassium 5.5 H, Chloride 110 H, Carbon Dioxide 12.2 L, Anion Gap 12, BUN 16, Creatinine 1.24 H, Est GFR (MDRD) Non-Af 44 L, BUN/Creatinine Ratio 12.7, Glucose 93, Calcium 8.9 02/03/25 18:48: Urine Color Yellow, Urine Clarity Clear, Urine pH 6.0, Ur Specific [place] 1.010, Urine Protein 30 H, Urine Glucose (UA) Normal, Urine Ketones Negative, Urine Occult Blood 250 H, Urine Nitrite Negative, Urine Bilirubin Negative, Urine Urobilinogen Normal, Ur Leukocyte Esterase 500 H, Urine RBC 50-100 SEEN, Urine WBC 5-10 SEEN, Ur Squamous Epith Cells 0-5 SEEN, Urine Bacteria 0 SEEN, Hyaline Casts 0-5 SEEN, Urine Mucus 0 SEEN Imaging Radiology Impression Foot X-Ray 02/03/25 17:30 IMPRESSION: SOFT TISSUE SWELLING. NO FRACTURE IDENTIFIED. Reading Location: [facility] Knee X-Ray 02/03/25 17:30 IMPRESSION: DEGENERATIVE OSTEOARTHROSIS. NO ACUTE FINDINGS. Reading Location: [facility] Knee X-Ray 02/03/25 17:30 IMPRESSION: DEGENERATIVE OSTEOARTHROSIS. NO ACUTE FINDINGS. Reading Location: [facility] Assessment & Plan Assessment/Plan (1) Difficulty in walking: (2) Foot sprain: (3) Contusion of knee: (4) Fall: (5) General weakness: (6) S/P ureteral stent placement: (7) Acute UTI: (8) Kidney stone: (9) Hypothyroidism: (10) Depression: PLAN: Plan 1 status post fall with injury to both knees and now difficulty with ambulation.?Admit patient to general medical floor, consult physical therapy to assist with activities of daily living, consult case management for discharge planning to rehab facility as family is uncomfortable with her going home living independently at this time. Patient will have tramadol 50 mg every 6 hours as needed pain greater than 6/10 2. Urinary tract infection?continue Keflex as this was sensitive by culture 3. Hypothyroidism?continue Synthroid and check TSH 4. Depression?stable continue routine antidepressant medication 5. DVT prophylaxis?SCDs due to renal function
[2025-02-03 19:40] VITALS: RESP 18
--- NOTE | 2025-02-03 19:50 | CM.ED ---
Social work Reason for referral: fall/increased dizziness Referral source: Dr. Saleem This SW was approached by Dr. Saleem with request to talk with patient and patient's daughters regarding patient's care and desire for admission. This SW entered patient's room, introducing self and role at [facility]. Patient's daughters, Jessica and Coco, were both bedside and patient gave permission for SW visit. Patient was observed to be in great pain being helped back into bed after using the bedside commode prior to SW entrance. Patient stated being miserable and not being able to do this. Patient's daughters reported medical history for patient over the last month and stated patient having surgery on 02/06/25 for a kidney stone removal. Patient stated being in pain and being unable to go home alone or with daughters due to patient's current state. Patient confirmed desire to try to be admitted and desire for SNF placement; patient's daughters agreed. Due to it being after SNF admission hours, patient will need to be admitted despite having 3 midnights in the last [address] Saleem updated and hospitalist paged. Patient's daughters denied needing a list of SNF placements including quality and resource use data and consistent with the patient's preferred geographic region, medical needs, and insurance network. Patient's daughters both reported receiving list during patient's prior hospitalizations and wanting [facility] as first choice and [facility] as second choice. Email sent to Nayeli May and handoff to acute SW team. Shantel Mott, TANK OFFICER, POSTAL SERVICE WINDOW CLERK
[2025-02-03 20:13] VITALS: BP 123/68; PULSE 91; RESP 15; TEMP 36.4; O2SAT 100
[2025-02-03 21:20] VITALS: BMI 22.7
[2025-02-03 21:28] VITALS: BP 129/57; PULSE 85; RESP 18; TEMP 36.6; O2SAT 95
[2025-02-03] MEDS: Sodium Bicarbonate 650 MG Tablet PO (21:42)
[2025-02-03] MEDS: traMADol 50 MG Tablet PO (21:42)
[2025-02-04] VITALS (8 sets, daily range): BP systolic 96–122; BP diastolic 49–60; PULSE 76–89; RESP 16; TEMP 36.5–37.1; O2SAT 90–96
[2025-02-04] MEDS: Cephalexin 500 MG Capsule PO ×3 (00:14→13:02)
[2025-02-04] MEDS: traMADol 50 MG Tablet PO (05:47)
[2025-02-04] MEDS: Sodium Bicarbonate 650 MG Tablet PO ×3 (05:47→20:51)
[2025-02-04] MEDS: Levothyroxine 88 MCG Tablet PO (05:47)
[2025-02-04] MEDS: Acetaminophen 500 MG Tablet 1000 MG PO ×3 (05:48→20:50)
[2025-02-04 06:47] LABS: Absolute Lymphocyte Count 1.94 X10^3/uL (0.83-4.51); Absolute Neutrophil Count 5.1 X10^3/uL (2.0-7.7); Basophil# 0.01 X10^3/uL; Basophil% 0.1 % (0-1); Eosinophil# 0.31 X10^3/uL; Eosinophils% 3.9 % (0-5); Hemoglobin 10.4 g/dL (12.0-15.0); Lymphocyte # 1.94 X10^3/ul (0.83-4.51); Lymphocyte % 24.2 % (19-41); Mean Corp Hgb Conc 32.5 g/dL (32-36); Mean Corpuscular Hgb 29.7 pg (27.0-32.0); Mean Corpuscular Volume 91.4 fL (81-99); Mean Platelet Vol. 9.3 fl (6.2-12.0); Monocyte# 0.68 X10^3/uL; Monocyte% 8.5 % (0-10); NRBC Flagged by Analyzer 0 % (0-5); Neutrophil # 5.07 X10^3/uL (2.7-7.7); Neutrophil % 63.1 % (47-70); Platelet Count 191 K/mm3 (150-450); RBC Distribution Width CV 13.3 % (11.6-14.6); RBC Distribution Width SD 43.8 fl (35.1-43.9)
[2025-02-04 07:19] LABS: Thyroid Stim Hormone (TSH) 0.063 uIU/mL (0.300-4.200)
[2025-02-04 07:23] LABS: Anion Gap 13 (5-15); BUN 13 mg/dL (4-19); BUN/Creat Ratio 10.4 RATIO (10-20); Carbon Dioxide 12.2 mmol/L (21.0-32.0); Chloride 111 mmol/L (98-108); Creatinine, Serum 1.26 mg/dL (0.70-1.20); EST Glomerular Filtration Rate 43 (>60); Estimated Creatinine Clearance 27.32 ml/min (50-250); Glucose 94 mg/dL (70-99); Potassium 3.9 mmol/L (3.3-5.1); Sodium Level 136 mmol/L (133-145)
[2025-02-04 09:26] LABS: Free T3 2.1 pg/mL (2.18-3.98)
--- NOTE | 2025-02-04 09:35 | CASEMGMT ---
Addendum entered by Meagan Tejeda 02/04/25 12:01: Social Work SW spoke w/physician, it is anticipated pt will be here until or Monday. SW called leonora Lopez to update her, message left. She had informed SW earlier it would be fine to leave a message. SW will continue to follow, referral will be sent to [facility] once PT/OT have been completed. TOMEKA Rand Original Note: Social Work SW spoke w/TCU, there are no beds for a week. SW called daughter and RICA Lopez. SW explained that there are no beds in TCU so a referral will be made to [facility]. SW did also explain to daughter the qualifying stay criteria under Medicare in order for a half-way facility stay to be covered by Medicare. As per daughter, pt is having surgery on . SW will follow up w/physician in regard to this and call daughter back later today. TOMEKA Rand
[2025-02-04] MEDS: buPROPion (XL) 150 MG TABLET.XL PO (09:52)
[2025-02-04] MEDS: Citalopram 40 MG TABLET PO (09:52)
[2025-02-04] MEDS: Cholecalciferol (VIT D3) 25 MCG TABLET (1,000 UNITS) PO (09:52)
--- NOTE | 2025-02-04 12:54 | PN.HOSP_ITS ---
Reason for Visit Reason for Visit: Diagnoses Hypothyroidism, unspecified (02/03/25) Depression, unspecified (02/03/25) Calculus of kidney (02/03/25) Urinary tract infection, site not specified (02/03/25) Difficulty in walking, not elsewhere classified (02/03/25) Weakness (02/03/25) Contusion of unspecified knee, initial encounter (02/03/25) Unspecified sprain of unspecified foot, initial encounter (02/03/25) Unspecified fall, initial encounter (02/03/25) Presence of urogenital implants (02/03/25) Subjective Subjective Saw patient at bedside this morning. Patient was sitting back comfortably in bed, conversing normally, in no acute distress. Patient did appear mildly fatigued and weak. She was tearful at times during our conversation due to ongoing weakness and difficulty at home. She reports pain in her knees this morning after her fall yesterday. She otherwise denies any UTI symptoms or any other pain or discomfort. No other acute concerns at this time. Objective Data Objective Data Vital Signs: Vital Signs Temp Pulse Resp BP Pulse Ox O2 Del Method 97.8 F 76 16 100/49 L 92 Room Air 02/04/25 08:33 02/04/25 08:33 02/04/25 08:33 02/04/25 08:33 02/04/25 09:17 02/04/25 09:17 Oxygen Delivery Method Room Air Weight: 54.6 kg Body Mass Index (BMI) 22.7 Intake & Output: Intake and Output for Last 24 Hours 02/02/25 02/03/25 02/04/25 23:59 23:59 23:59 Intake Total 1000 / 1000 Output Total 100 / 100 Balance 1000 / 1000 -100 / -100 Lab / Micro Data 02/04/25 06:00 02/04/25 06:00 Labs: Laboratory Results - last 24 hr 02/03/25 17:22: WBC 10.5, RBC 4.20, Hgb 12.4, Hct 39.2, MCV 93.3, MCH 29.5, MCHC 31.6 L, RDW Std Deviation 45.3 H, RDW Coeff of Osmar 13.3, Plt Count 229, MPV 9.1, Immature Gran % (Auto) 0.400, Neut % (Auto) 71.8 H, Lymph % (Auto) 16.6 L, [place] % (Auto) 4.6, Eos % (Auto) 6.4 H, Baso % (Auto) 0.2, Absolute Neuts (auto) 7.5, Absolute Lymphs (auto) 1.74, Nucleated RBC % 0, Sodium 135, Potassium 5.5 H, C hloride 110 H, Carbon Dioxide 12.2 L, Anion Gap 12, BUN 16, Creatinine 1.24 H, E st GFR (MDRD) Non-Af 44 L, BUN/Creatinine Ratio 12.7, Glucose 93, Calcium 8.9 02/03/25 18:48: Urine Color Yellow, Urine Clarity Clear, Urine pH 6.0, Ur Specific [place] 1.010, Urine Protein 30 H, Urine Glucose (UA) Normal, Urine Ketones Negative, Urine Occult Blood 250 H, Urine Nitrite Negative, Urine Bilirubin Negative, Urine Urobilinogen Normal, Ur Leukocyte Esterase 500 H, Urine RBC 50-100 SEEN, Urine WBC 5-10 SEEN, Ur Squamous Epith Cells 0-5 SEEN, Urine Bacteria 0 SEEN, Hyaline Casts 0-5 SEEN, Urine Mucus 0 SEEN 02/04/25 06:00: WBC 8.0, RBC 3.50 L, Hgb 10.4 L, Hct 32.0 L, MCV 91.4, MCH 29.7, MCHC 32.5, RDW Std Deviation 43.8, RDW Coeff of [place] 13.3, Plt Count 191, MPV 9.3, Immature Gran % (Auto) 0.200, Neut % (Auto) 63.1, Lymph % (Auto) 24.2, [place] % (Auto) 8.5, Eos % (Auto) 3.9, Baso % (Auto) 0.1, Absolute Neuts (auto) 5.1, Absolute Lymphs (auto) 1.94, Nucleated RBC % 0, Sodium 136, Potassium 3.9, C hloride 111 H, Carbon Dioxide 12.2 L, Anion Gap 13, BUN 13, Creatinine 1.26 H, E stim Creat Clear Calc 27.32 L, Est GFR (MDRD) Non-Af 43 L, BUN/Creatinine Ratio 10.4, Glucose 94, Calcium 9.0, TSH 0.063 L, Free T4 1.40, Free T3 pg/dL 2.1 L Radiography Diagnostic Testing: Radiology Impression Foot X-Ray 02/03/25 17:30 IMPRESSION: SOFT TISSUE SWELLING. NO FRACTURE IDENTIFIED. Reading Location: [facility] Knee X-Ray 02/03/25 17:30 IMPRESSION: DEGENERATIVE OSTEOARTHROSIS. NO ACUTE FINDINGS. Reading Location: [facility] Knee X-Ray 02/03/25 17:30 IMPRESSION: DEGENERATIVE OSTEOARTHROSIS. NO ACUTE FINDINGS. Reading Location: [facility] Physical Exam Const alert, oriented x3, no apparent distress and average body habitus Constitutional Narrative: Elderly female, mildly fatigued appearing, otherwise laying back comfortably in bed, conversing normally, in no acute distress. General Appearance: cooperative and comfortable HEENT normocephalic, head/scalp atraumatic, hearing grossly normal bilaterally, nasal mucous membranes and turbinates normal and moist oral mucous membranes Eyes PERRL, EOMs intact bilaterally and conjunctivae normal Neck full ROM Chest inspection of chest normal Resp normal respiratory effort, normal air movement, no use of accessory muscles and clear to auscultation bilaterally Cardio regular rate, regular rhythm, no murmurs and peripheral pulses 2+ throughout GI normal to inspection, nondistended, normoactive bowel sounds, soft to palpation, non-tender and non-distended Back/Spine normal ROM Extremity normal to inspection and no pedal edema Skin no rashes or lesions noted Psych mental status grossly normal Mood & Affect: anxious Assessment & Plan Assessment/Plan (1) General weakness: (2) Difficulty in walking: PLAN: Plan Patient is a 79-year-old female who presented to [facility] ED on 02/04/2025 with weakness and a fall at home. 1. Acute on chronic debility, mechanical fall with mild bilateral knee pain and difficulty with ambulation ? PT/OT/case management following. Patient lives at home alone. Typically uses walker for ambulation. Had mechanical fall on day of admission with knee pain and bruising with subsequent difficulty with ambulation. Per PT evaluation on 02/04, SNF placement would be reasonable for patient and patient is agreeable to this. Will need 3 midnight stay prior to SNF placement. Pain control with scheduled Tylenol and oxycodone as needed. 2. Recent history of right ureteral and renal stones with hydronephrosis s/p ureteral stent placement and recent UTI ? Follows with Dr. Morrison. Had cystoscopy with right ureteral stent insertion on 12/22 for right ureteral calculus with hydronephrosis and UTI. Had subsequent procedure on 01/16 for continued right ureteral and renal stones; that procedure included cystoscopy, laser lithotripsy, stone basket extraction, and right ureteral stent change. Urine culture then showed no growth and patient was treated with short course of p.o. antibiotics on that discharge. Denies any UTI symptoms currently. Plan is for repeat surgical intervention on 02/06; will need to discuss with Dr. Morrison if this can be done while patient is hospitalized. 3. CKD stage IIIb ? Creatinine stable at baseline 1.2-1.3 with good urine output. 4. Mild normocytic anemia ? Hemoglobin stable at baseline around 10-12. 5. Depression/anxiety ? Continue home bupropion and citalopram. 6. Hypothyroidism ? Continue home Synthroid. 7. COPD ? Stable on room air, not in acute exacerbation. Continue home inhalers. DVT prophylaxis: Lovenox CODE STATUS: Full code, verified Expected disposition: Likely SNF, TBD Total clinical time spent by myself addressing the patient's medical issues, reviewing all the data, and collaborating with patient's care team: 35 minutes. Charges/Coding Visit Charges Inpatient E&M: 10476 Subs Hosp L2
[2025-02-04] MEDS: 0.9% Saline Lock 10 ML Syringe IV (13:03)
--- NOTE | 2025-02-04 14:01 | CASEMGMT ---
Addendum entered by Taylor Lim 02/04/25 15:58: [facility] loc. They've asked for updates to be sent to them after pt has surgery. SW updated. Taylor Lim DC Planning Asst. Original Note: Discharge Planning Referral sent to [facility]. Taylor Lim DC Planning Asst.
--- NOTE | 2025-02-04 15:46 | CASEMGMT ---
Social Work [facility] has deferred making a decision until after pt has kidney stone removed on , as they think pt may not qualify long for rehab in SNF. SW called daughter Jessica, explained the above. SW explained if pt improves as she is here, [facility] may not take her, or may only be able to take her for a week. Daughter states understanding, states that a week may be all she needs. SW explained we will revisit this with [facility] on to see what they think. If [facility] says no altogether, SW asked for additional choices. Daughter still does not want a list of nursing homes, states if they still feel pt needs SNF and [facility] will not take, then [facility] would be the next choices. SW to follow up on . TOMEKA Rand
[2025-02-04] MEDS: oxyCODONE 5 MG Tablet PO (20:49)
[2025-02-05] VITALS (10 sets, daily range): BP systolic 77–114; BP diastolic 55–62; PULSE 77–87; RESP 16–18; TEMP 36.3–36.8; O2SAT 85–100
[2025-02-05] MEDS: oxyCODONE 5 MG Tablet PO ×2 (01:06→05:52)
[2025-02-05] MEDS: Acetaminophen 500 MG Tablet 1000 MG PO ×3 (05:44→21:18)
[2025-02-05] MEDS: Sodium Bicarbonate 650 MG Tablet PO ×3 (05:44→21:19)
[2025-02-05] MEDS: Levothyroxine 88 MCG Tablet PO (05:45)
[2025-02-05] MEDS: Albuterol 2.5 MG/3 ML VIAL.NEB. INHALATION (08:45)
[2025-02-05] MEDS: Cholecalciferol (VIT D3) 25 MCG TABLET (1,000 UNITS) PO (10:20)
[2025-02-05] MEDS: Citalopram 40 MG TABLET PO (10:20)
[2025-02-05] MEDS: buPROPion (XL) 150 MG TABLET.XL PO (10:20)
--- NOTE | 2025-02-05 11:25 | WOUNDNOTE ---
Colostomy appliance changed with nursing home director per pt request. pt states she has had her colostomy for approx 19 years. removed the appliance. small amount of soft light brown stool noted in the appliance. cleansed skin with warm water and pat dry. stoma is pink and moist. stoma is slightly budded. peristomal skin is intact. placed paste ring and applied patient's one piece convex [place] appliance. pt tolerated well. very appreciative of assistance with changing the appliance. pt denies further needs at this time.
--- NOTE | 2025-02-05 11:40 | PN.HOSP_ITS ---
Reason for Visit Reason for Visit: Diagnoses Hypothyroidism, unspecified (02/03/25) Depression, unspecified (02/03/25) Calculus of kidney (02/03/25) Urinary tract infection, site not specified (02/03/25) Difficulty in walking, not elsewhere classified (02/03/25) Weakness (02/03/25) Contusion of unspecified knee, initial encounter (02/03/25) Unspecified sprain of unspecified foot, initial encounter (02/03/25) Unspecified fall, initial encounter (02/03/25) Presence of urogenital implants (02/03/25) Subjective Subjective Saw patient at bedside this morning. Sitting back comfortably in bedside chair, conversing normally, in no acute distress. Appears to have improved energy from yesterday. States that she does feel generally better today. Reports mild leg pain today, improving. No other acute concerns today. Objective Data Objective Data Vital Signs: Vital Signs Temp Pulse Resp BP Pulse Ox O2 Del Method O2 Flow Rate 98.1 F 84 18 106/58 L 93 Nasal Cannula 2 02/05/25 07:54 02/05/25 08:44 02/05/25 08:00 02/05/25 08:44 02/05/25 10:23 02/05/25 10:06 02/05/25 10:23 Oxygen Flow Rate (L/min) 2 Oxygen Delivery Method Nasal Cannula Weight: 54.6 kg Body Mass Index (BMI) 22.7 Intake & Output: Intake and Output for Last 24 Hours 02/03/25 02/04/25 02/05/25 23:59 23:59 23:59 Intake Total 1000 / 1000 240 / 240 Output Total 200 / 200 Balance 1000 / 1000 40 / 40 Lab / Micro Data 02/04/25 06:00 02/04/25 06:00 Physical Exam Const alert, oriented x3, no apparent distress and average body habitus Constitutional Narrative: Elderly female, energy improved, laying back comfortably in bed, conversing normally, in no acute distress. General Appearance: cooperative and comfortable HEENT normocephalic, head/scalp atraumatic, hearing grossly normal bilaterally, nasal mucous membranes and turbinates normal and moist oral mucous membranes Eyes PERRL, EOMs intact bilaterally and conjunctivae normal Neck full ROM Chest inspection of chest normal Resp normal respiratory effort, normal air movement, no use of accessory muscles and clear to auscultation bilaterally Cardio regular rate, regular rhythm, no murmurs and peripheral pulses 2+ throughout GI normal to inspection, nondistended, normoactive bowel sounds, soft to palpation, non-tender and non-distended Back/Spine normal ROM Extremity normal to inspection and no pedal edema Skin no rashes or lesions noted Psych mental status grossly normal Assessment & Plan Assessment/Plan (1) General weakness: (2) Difficulty in walking: PLAN: Plan Patient is a 79-year-old female who presented to [facility] ED on 02/04/2025 with weakness and a fall at home. 1. Acute on chronic debility, mechanical fall with mild bilateral knee pain and difficulty with ambulation ? PT/OT/case management following. Patient lives at home alone. Typically uses walker for ambulation. Had mechanical fall on day of admission with knee pain and bruising with subsequent difficulty with ambulation. Therapy scores borderline on hospital day 2. Planning for procedure with urology tomorrow so would be ready for discharge on Monday at the earliest. Will follow-up to see if patient still needs SNF placement on discharge versus home with home health care. Pain control with scheduled Tylenol and oxycodone as needed. 2. Recent history of right ureteral and renal stones with hydronephrosis s/p ureteral stent placement and recent UTI ? Follows with Dr. Morrison. Had cystoscopy with right ureteral stent insertion on 12/22 for right ureteral calculus with hydronephrosis and UTI. Had subsequent procedure on 01/16 for continued right ureteral and renal stones; that procedure included cystoscopy, laser lithotripsy, stone basket extraction, and right ureteral stent change. Urine culture then showed no growth and patient was treated with short course of p.o. antibiotics on that discharge. Denies any UTI symptoms currently. Plan is for repeat surgical intervention on 02/06, n.p.o. at midnight. 3. CKD stage IIIb ? Creatinine stable at baseline 1.2-1.3 with good urine output. 4. Mild normocytic anemia ? Hemoglobin stable at baseline around 10-12. 5. Depression/anxiety ? Continue home bupropion and citalopram. 6. Hypothyroidism ? Continue home Synthroid. 7. COPD ? Stable on room air, not in acute exacerbation. Continue home inhalers. DVT prophylaxis: Lovenox CODE STATUS: Full code, verified Expected disposition: SNF versus home with home health care, 2 to 3 days Total clinical time spent by myself addressing the patient's medical issues, reviewing all the data, and collaborating with patient's care team: 35 minutes. Charges/Coding Visit Charges Inpatient E&M: 91566 Subs Hosp L2
--- NOTE | 2025-02-05 16:11 | NURSING ---
All documentation by associate of science in nursing Bossman Diaz reviewed by nursing home aide Venecia Flower BSN, RN.
[2025-02-05] MEDS: Dextrose 5%-Lactated Ringers 1,000 ML 100 ML IV (21:39)
[2025-02-06] VITALS (16 sets, daily range): BP systolic 95–120; BP diastolic 43–74; PULSE 76–109; RESP 12–20; TEMP 36.2–37.4; O2SAT 93–99; BMI 22.4; BMI 22.5
[2025-02-06 06:17] LABS: Hematocrit 30.8 % (37-47); Hemoglobin 9.7 g/dL (12.0-15.0); Mean Corp Hgb Conc 31.5 g/dL (32-36); Mean Corpuscular Volume 92.2 fL (81-99); Mean Platelet Vol. 9.6 fl (6.2-12.0); Platelet Count 178 K/mm3 (150-450); RBC Distribution Width CV 13.2 % (11.6-14.6); RBC Distribution Width SD 44.6 fl (35.1-43.9); Red Blood Count 3.34 M/mm3 (4.2-5.4); White Blood Count 7.9 K/mm3 (4.4-11.0)
[2025-02-06 06:48] LABS: Anion Gap 11 (5-15); BUN 16 mg/dL (4-19); BUN/Creat Ratio 10.7 RATIO (10-20); Calcium,Total 8.4 mg/dL (7.6-11.0); Carbon Dioxide 17.1 mmol/L (21.0-32.0); Chloride 113 mmol/L (98-108); Creatinine, Serum 1.52 mg/dL (0.70-1.20); EST Glomerular Filtration Rate 35 (>60); Estimated Creatinine Clearance 22.65 ml/min (50-250); Glucose 98 mg/dL (70-99); Potassium 3.4 mmol/L (3.3-5.1); Sodium Level 141 mmol/L (133-145)
[2025-02-06] MEDS: Lactated Ringers 1,000 ML 500 ML IV (07:30)
--- NOTE | 2025-02-06 08:39 | PRE.ANES_ITS ---
ASA Classification* ASA Classification ASA Classification: 3 Assessment & Plan Anesthesia* Anesthesia Assessment Anesthesia Assessment: Discussed sedation and/or anesthesia options, risks, benefits, and alternatives with patient/parents/legal guardian/POA. Questions invited. The patient/parents/legal guardian/POA seems to understand and agrees to proceed with anesthesia plan. Reviewed the physical assessment, medical history, allergy history and patient home medications list prior to surgery/procedure/anesthetic and documented any changes. Performed airway and anesthesia risk assessments. Anesthesia Type Anesthesia Type: General History Source History Obtained from:: Patient and Chart Anesthesia Focused Assessment* Temperature: 98.7 F Pulse Rate: 89 Blood Pressure: 108/58 Respiratory Rate: 16 Pulse Ox: 93 Oxygen Delivery Method: Room Air Oxygen Flow Rate (L/min): 2 Airway Assessment Mouth opens: >3 cm Mallampati Score: II Teeth Condition: Dentures (Patient has upper and lower dentures. They are out.) Neck Range of motion (ROM): Full ROM Focused Labs Anesthesia Preop lab: CBC WBC 7.9 K/mm3 (4.4-11.0) 02/06/25 05:56 02/06/25 RBC 3.34 M/mm3 (4.2-5.4) L 02/06/25 05:56 02/06/25 Hgb 9.7 g/dL (12.0-15.0) L 02/06/25 05:56 02/06/25 Hct 30.8 % (37-47) L 02/06/25 05:56 02/06/25 Plt Count 178 K/mm3 (150-450) 02/06/25 05:56 02/06/25 CHEMISTRY Potassium 3.4 mmol/L (3.3-5.1) 02/06/25 05:56 02/06/25 Sodium 141 mmol/L (133-145) 02/06/25 05:56 02/06/25 Magnesium 2.1 mg/dL (1.6-2.6) 08/29/22 04:22 08/29/22 Phosphorus 3.1 mg/dL (2.5-4.9) 09/11/24 13:26 09/11/24 BUN 16 mg/dL (4-19) 02/06/25 05:56 02/06/25 Creatinine 1.52 mg/dL (0.70-1.20) H 02/06/25 05:56 Glucose 98 mg/dL (70-99) 02/06/25 05:56 02/06/25 POC Glucose 88 mg/dL (70-110) 02/05/18 12:01 02/05/18 TSH 0.063 uIU/mL (0.300-4.200) L 02/04/25 06:00 COAG PT 17.2 SECONDS (11.7-14.9) H 09/28/22 10:39 09/07 01/25 Pre-Assessment Diagnosis/Proposed Procedure Planned Operative Procedure(s): Right cystoscopy, laser lithotripsy, ureteroscopy, stone basket extraction, stent change. 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 When Was Last Pacemaker Check QUESTION #4 FULL TEXT: You/Your Family Experience fever (hyperthermia) with Anesthesia Last Oral Intake Last Oral intake: Last Oral Intake NPO since 00:00 02/06/25 07:36 Meds taken in AM with sips of No 02/06/25 07:36 water? 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 - ion implant machine operator: PONV - ion implant machine operator Female HX of Motion Sickness HX of N/V After Surgery Non-Smoker Duration of Surgery greater than 60 minutes Number of Risk Factors PONV Score Height & Weight Height & Weight: Anesthesia: Height & Weight Height 5 ft 1.02 in 02/06/25 07:36 Weight: 54 kg 02/06/25 07:36 Body Mass Index (BMI) 22.4 02/06/25 07:36 Respiratory Assessment Respiratory Assessment - ion implant machine operator: Respiratory Tract Infection Hx - ion implant machine operator Hx Respiratory Tract Infection No 02/05/25 21:43 STOP Sleep Apnea STOP Sleep Apnea - ion implant machine operator: STOP Sleep Apnea - ion implant machine operator Hx Hypertension No 02/04/25 13:15 Hx Sleep Apnea No 02/03/25 21:20 CPAP No 01/28/25 09:11 BIPAP No 01/28/25 09:11 Do you snore loudly (louder No 02/03/25 21:20 than talking or can be heard Do you often feel tired/ No 02/03/25 21:20 fatigued/ sleepy during daytime? Has anyone observed you stop No 02/03/25 21:20 breathing during sleep? STOP Results Negative 02/03/25 21:20 QUESTION #5 FULL TEXT : Do you snore loudly (louder than talking or can be heard through closed doors)? 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 Specify any problems Hx of Preganancy in last 3 N/A 02/03/25 21:20 Months Nurse Filling Out Transfusion [email or web address] 02/03/25 21:20 & Questions: Date: 02/03/25 02/03/25 21:20 Time: 21:29 02/03/25 21:20 Patient unable to answer at this time (ie. confused, unrespo /Reproduction History /Reproductive History - ion implant machine operator: /Reproductive Hx- ion implant machine operator Hx Now No 02/05/25 21:43 Gestational Age (in weeks): EDC: Hx Hx Para Hx Section SAB No 02/05/25 21:43 Active Medications Active Medications: Current Medications Generic Name Dose Route Start Last Admin Trade Name Anselmoq PRN Reason Stop Dose Admin Acetaminophen 1,000 mg 02/04/25 06:00 02/05/25 23:58 Acetaminophen 500 Mg Tablet PO Not Given Q8 PRIMO Albuterol Sulfate 2.5 mg 02/03/25 22:00 02/05/25 08:45 Albuterol 2.5 Mg/3 Ml Vial.Neb. INHALATION 2.5 mg Q4H PRN Administration shortness of breath or wheezing Bupropion HCl 150 mg 02/04/25 10:00 02/05/25 10:20 Bupropion (Xl) 150 Mg Tablet.Xl PO 150 mg QAM PRIMO Administration Cholecalciferol 25 mcg 02/04/25 10:00 02/05/25 10:20 Cholecalciferol (Vit D3) 25 Mcg Tablet (1,000 Units) PO 25 mcg DAILY PRIMO Administration Citalopram Hydrobromide 40 mg 02/04/25 10:00 02/05/25 10:20 Citalopram 40 Mg Tablet PO 40 mg DAILY PRIMO Administration Sodium Chloride 100 mls @ 15 mls/hr 02/03/25 22:00 IV .Q6H40M PRN Saline Flush Sodium Chloride 100 mls @ 15 mls/hr 02/03/25 22:00 IV .Q6H40M PRN Additional IVPB Infusion Cefazolin Sodium 2 gm/ N/A 20 mls @ 400 mls/hr 02/06/25 09:10 IV 02/06/25 09:12 X1 ONE Dextrose/Lactated Ringer's 1,000 mls @ 100 mls/hr 02/05/25 21:30 02/05/25 21:39 IV 100 mls/hr .Q10H PRIMO Administration Lactated Ringer's 1,000 mls @ 500 mls/hr 02/06/25 07:30 02/06/25 07:30 IV 02/06/25 09:29 500 mls/hr .Q2H PRIMO Administration Levothyroxine Sodium 88 mcg 02/04/25 06:00 02/05/25 23:58 Levothyroxine 88 Mcg Tablet PO Not Given DAILY@0600 PRIMO Oxycodone HCl 5 mg 02/04/25 13:19 02/05/25 05:52 Oxycodone 5 Mg Tablet PO 5 mg Q4H PRN PRN Administration Pain Score 6-10 Senna 1 tablet 02/06/25 10:00 Senna Tablet PO BID PRIMO Sodium Bicarbonate 650 mg 02/03/25 22:00 02/05/25 23:58 Sodium Bicarbonate 650 Mg Tablet PO Not Given TID PRIMO Sodium Chloride 10 - 40 ml 02/03/25 22:00 02/04/25 13:03 0.9% Saline Lock 10 Ml Syringe IV 10 ml UD PRN Administration SALINE FLUSH [facility] Medical History Ureteral stent present 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 calculus 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 Crohn's disease Diarrhea Diarrhea Wears hearing aid Wears dentures Cancer Anxiety Thyroid disease Walker as ambulation aid Arthritis Easy bruising TIA (transient ischemic attack) Former smoker COPD (chronic obstructive pulmonary disease) Shortness of breath on exertion History of pain when walking History of echocardiogram History of stress test History of fracture of patella Stage 3b chronic kidney disease (CKD) Osteoporosis Urinary retention Rectal cancer Hydronephrosis Lung cancer Rectal cancer Decreased appetite Abdominal bloating COPD (chronic obstructive pulmonary disease) TIA (transient ischemic attack) Nicotine abuse Depression Anxiety Hypothyroidism COPD exacerbation Chronic bronchitis 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 calculus Hydronephrosis, right Filling defect on imaging study History of rectal cancer Home Medications ?Medication ?Instructions ?Recorded ?Last Taken ?Type bupropion HCl 150 mg 24 hr tablet, 150 mg PO QAM quit smoking 11/28/18 02/03/25 History extended release (Wellbutrin XL) citalopram 40 mg tablet 40 mg PO DAILY Anxiety 04/2402/03/25 History cyanocobalamin (vitamin B-12) 100 mcg IM Q30D Suppleme nt 10/08/19 01/22/25 History 1,000 mcg/mL injection solution cholecalciferol (vitamin D3) 25 25 mcg PO DAILY Supple ment 10/09/21 02/03/25 History mcg (1,000 unit) capsule (Vitamin D3) levothyroxine 88 mcg tablet 88 mcg PO DAILY 12/14/23 0 02/03/25 History albuterol sulfate 90 mcg/actuation 2 puff inhalation Q 4H PRN 07/19/24 03/13/25 Rx aerosol inhaler (Ventolin HFA) shortness of breath or wheezing #18 grams potassium chloride 20 mEq 20 meq PO DAILY 12/21/24 History tablet,extended release sodium bicarbonate 650 mg tablet 650 mg PO TID 5 02/03/25 History ondansetron 4 mg disintegrating 4 mg PO Q8H PRN nausea and 01/16/25 Unknown Rx tablet vomiting #10 tabs ustekinumab 90 mg/mL subcutaneous 90 mg subcut Q56D 01/30/25 History syringe (Stelara) cephalexin 500 mg capsule 500 mg PO Q6H 02/03/2502/03 History Allergy/AdvReac Type Severity Reaction Status Date / Time levofloxacin Allergy Mild Rash Verified 02/03/25 15:41 ciprofloxacin HCl (From Allergy Rash Verified 02/03/25 15:41 Cipro) Penicillins Allergy Hives Verified 02/03/25 15:41 codeine AdvReac makes her Verified 02/03/25 15:41 feel weird magnesium citrate AdvReac Nausea Verified 02/03/25 15:41 NSAIDS (Non-Steroidal AdvReac kidney Verified 02/03/25 15:41 Anti-Inflamma damage r/t long-term usage advised not to use Family History Father Heart disease Mother Heart disease Sister Heart disease Diabetes Other Crohn's disease Surgical History (Updated 02/06/25 @ 08:[address] Ajit Yepez MD) S/P lobectomy of lung History of cystoscopy History of colonoscopy (~10/2019) History of colostomy History of cholecystectomy History of bowel resection History of hysterectomy History of delivery Social History household members: none Smoking Status: Former smoker Tobacco: How many years used: 53 how long ago did patient quit smoking: Quit 2-5 years prior. second hand exposure: No alcohol intake: never substance use type: does not use caffeine: No what type of physical activity do you participate in: none Review of Systems (Anesthesia) ROS Narrative System reviewed and no additional complaints, except as documented.
--- NOTE | 2025-02-06 09:10 | CALC_PTH ---
PATIENT: JOSE DE JESUS GOLD LOC: MS3 U#:[id number] AGE/SX: 79/F ROOM: LA315 RE02/03/[address]: Dr. Carlitos Snowden DO : 1945 BED: 1 DIS: 02/07/2025 SPEC #: [id number] RECD: 02/06/25 11:18 STATUS: ELAYNE CAR #: [id number] GABRIELE: 02/06/25 09:[address]: Minal Morrison DEPT: SURGICAL PATHOLOGY RECD BY: Joe Medina ENTERED: 02/06/25 14:05 SP TYPE: Calculi OTHR DR: DO Dr. Mitul Rasheed MD Dr. Remus Ungur, DO Dr. Tai Chi Kwok, MD Tissues: CALCULI Procedures: Surgery Specimen Level I HEADER OPERATION: Ureteroscopy, laser litho, stone basket, stent change PRE-OP DIAGNOSIS: UTI, right renal calculi TISSUE SUBMITTED: A- Right renal calculi GROSS DIAGNOSIS A. Right Kidney, Calculi, Laser Lithotripsy: - Calculi confirmed (gross examination only). - Chemical analysis is pending and will be reported separately. GROSS DESCRIPTION A. Received in formalin in a container labeled with the patient's name, date of , and right renal calculi are 4 verduzco friable stones ranging from 0.1 x 0.1 x 0.1 cm to 0.2 x 0.2 x 0.2 cm. The specimen is submitted entirely for chemical analysis. [facility] 02-06-2025 CPT:62783
--- NOTE | 2025-02-06 09:17 | PN.HOSP_ITS ---
Reason for Visit Reason for Visit: Diagnoses Hypothyroidism, unspecified (02/03/25) Depression, unspecified (02/03/25) Calculus of kidney (02/03/25) Urinary tract infection, site not specified (02/03/25) Difficulty in walking, not elsewhere classified (02/03/25) Weakness (02/03/25) Contusion of unspecified knee, initial encounter (02/03/25) Unspecified sprain of unspecified foot, initial encounter (02/03/25) Unspecified fall, initial encounter (02/03/25) Presence of urogenital implants (02/03/25) Subjective Subjective Saw patient at bedside this afternoon as she was down having her urology procedure this morning. Procedure went well, no issues reported. Patient was laying back comfortably in bed, was still mildly sedated but otherwise answering questions appropriately and in no acute distress. She denied any abdominal pain or discomfort. Denied any other concerns at this time. Objective Data Objective Data Vital Signs: Vital Signs Temp Pulse Resp BP Pulse Ox O2 Del Method O2 Flow Rate 98.7 F 89 16 108/58 L 93 Room Air 2 02/06/25 08:54 02/06/25 08:54 02/06/25 08:54 02/06/25 08:54 02/06/25 08:54 02/06/25 08:54 02/06/25 08:54 Oxygen Flow Rate (L/min) 2 Oxygen Delivery Method Room Air Weight: 54 kg Body Mass Index (BMI) 22.4 Intake & Output: Intake and Output for Last 24 Hours 02/04/25 02/05/25 02/06/25 23:59 23:59 23:59 Intake Total 240 / 240 75 / 75 Output Total 200 / 200 Balance 40 / 40 75 / 75 Lab / Micro Data 02/06/25 05:56 02/06/25 05:56 Labs: Laboratory Results - last 24 hr 02/06/25 05:56: WBC 7.9, RBC 3.34 L, Hgb 9.7 L, Hct 30.8 L, MCV 92.2, MCH 29.0, MCHC 31.5 L, RDW Std Deviation 44.6 H, RDW Coeff of Osmar 13.2, Plt Count 178, MPV 9.6, Sodium 141, Potassium 3.4, Chloride 113 H, Carbon Dioxide 17.1 L, Anion Gap 11, BUN 16, Creatinine 1.52 H, Estim Creat Clear Calc 22.65 L, Est GFR (MDRD) Non-Af 35 L, BUN/Creatinine Ratio 10.7, Glucose 98, Calcium 8.4 Physical Exam Const alert, oriented x3, no apparent distress and average body habitus Constitutional Narrative: Elderly female, mildly sedated postoperatively but otherwise laying back comfortably in bed, conversing normally, in no acute distress. General Appearance: cooperative and comfortable HEENT normocephalic, head/scalp atraumatic, hearing grossly normal bilaterally, nasal mucous membranes and turbinates normal and moist oral mucous membranes Eyes PERRL, EOMs intact bilaterally and conjunctivae normal Neck full ROM Chest inspection of chest normal Resp normal respiratory effort, normal air movement, no use of accessory muscles and clear to auscultation bilaterally Cardio regular rate, regular rhythm, no murmurs and peripheral pulses 2+ throughout GI normal to inspection, nondistended, normoactive bowel sounds, soft to palpation, non-tender and non-distended Back/Spine normal ROM Extremity normal to inspection and no pedal edema Skin no rashes or lesions noted Psych mental status grossly normal Assessment & Plan Assessment/Plan (1) General weakness: (2) Difficulty in walking: PLAN: Plan Patient is a 79-year-old female who presented to [facility] ED on 02/04/2025 with weakness and a fall at home. 1. Acute on chronic debility, mechanical fall with mild bilateral knee pain and difficulty with ambulation ? PT/OT/case management following. Patient lives at home alone. Typically uses walker for ambulation. Had mechanical fall on day of admission with knee pain and bruising with subsequent difficulty with ambulation. Therapy scores borderline on hospital day 2. Had procedure done on 02/06 as noted below. Will have patient work with therapy again either this evening or tomorrow morning and determine if patient still needs SNF placement versus home with home health care on discharge. Pain control with scheduled Tylenol and oxycodone as needed. 2. Recent history of right ureteral and renal stones with hydronephrosis s/p ureteral stent placement and recent UTI ? Follows with Dr. Morrison. Had cystoscopy with right ureteral stent insertion on 12/22 for right ureteral calculus with hydronephrosis and UTI. Had subsequent procedure on 01/16 for continued right ureteral and renal stones; that procedure included cystoscopy, laser lithotripsy, stone basket extraction, and right ureteral stent change. Urine culture then showed no growth and patient was treated with short course of p.o. antibiotics on that discharge. Denies any UTI symptoms currently. Had planned repeat cystoscopy with Dr. Morrison on 02/06 with further laser lithotripsy, stone basket extraction and right ureteral stent change. Tolerated procedure well. Continue to monitor. 3. CKD stage IIIb ? Creatinine stable at baseline 1.2-1.3 with good urine output. 4. Mild normocytic anemia ? Hemoglobin stable at baseline around 10-12. 5. Depression/anxiety ? Continue home bupropion and citalopram. 6. Hypothyroidism ? Continue home Synthroid. 7. COPD ? Stable on room air, not in acute exacerbation. Continue home inhalers. DVT prophylaxis: Lovenox CODE STATUS: Full code, verified Expected disposition: SNF versus home with home health care, 1 to 2 days Total clinical time spent by myself addressing the patient's medical issues, reviewing all the data, and collaborating with patient's care team: 35 minutes. Charges/Coding Visit Charges Inpatient E&M: 69899 Subs Hosp L2
[2025-02-06] MEDS: Ipratropium/Albuterol Sulfate 3 ML AMPUL.NEB INHALATION (09:20)
[2025-02-06] MEDS: Cefazolin 2 GM in Syringe IV (09:49)
--- NOTE | 2025-02-06 11:06 | PCM.POST.ANE ---
Anesthesia: Postop Eval I Current Vital Signs Temperature: 99.4 F Pulse Rate: 106 Blood Pressure: 120/53 Respiratory Rate: 12 Pulse Ox: 97 Oxygen Delivery Method: Room Air Assessment Airway patent: Yes Spontaneous unlabored respirations: Yes Mental status: Awake and Calm nausea: No Vomiting: No Anesthesia Complication: No Fluid Hydration Crystalloid volume administer (ml): 1,000 Total IV fluid infused: 1,000 Progress Note Anesthesia document: Postop Eval 1 completed: Yes
--- NOTE | 2025-02-06 11:29 | OP_ITS ---
Date of Procedure: 02/06/25 Pre-Operative Diagnosis: 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 calculus Post-Operative Diagnosis: 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 and right renal calculus Surgery/Procedure Performed: Cystoscopy, right ureteroscopy, laser lithotripsy, stone basket extraction, right ureteral stent change painter and body work: No Type of Anesthesia: General RN Documented Start/Stop Times: Operation Date: 02/06/25 09:10 Case Time Anesthesia Start 02/06/25 09:37 Into Room 02/06/25 09:37 Procedure Start 02/06/25 09:58 Procedure Start Time: 09:58 Procedure Stop Time: 10:51 Select all DRAINS/GRAFTS/IMPLANTS that apply: Drains Drain details: 6 x 22 JJ stent Estimated Blood Loss: <5cc Specimen collected: Yes Description of specimen(s) removed: Stone fragments Description of surgery: The patient is a 79-year-old female who presents for repeat right ureteroscopy with laser lithotripsy and stent change. Informed consent was obtained. She was taken to the operating room and placed on the operating room table. Anesthesia monitored the head, neck, airway, IV access and vital signs throughout the case. Once anesthesia was appropriately administered she was placed into dorsolithotomy position was prepped and draped in usual sterile fashion. The cystoscope was then inserted through the urethra under direct visualization into the urinary bladder. The right ureteral orifice was identified. 2 separate 0.035 Glidewire's were placed alongside the ureteral stent which was removed with grasping forceps. The flexible ureteroscope was placed over one of the wires and advanced all the way into the renal pelvis. Each calyceal was visualized and there was 1 containing approximately 4 to 5 stones 1 of which was partially lasered from the previous procedure. The thulium laser fiber was then utilized to break these into smaller pieces and debris. A stone basket was then utilized to remove the debris which was sent for analysis. On reentry, a few stones were seen in the distal ureter and these were emptied into the urinary bladder. Again, utilizing a wire, the ureteroscope was advanced into the renal pelvis where another basket full of debris was removed. An attempt was made to enter. The renal pelvis a third time and I was unable to pass a wire into the renal pelvis at that time. The wire repeatedly was stuck in the enlarged portion of the ureter and was coiling on itself. At this time the cystoscope was utilized to attempt a second wire placement and the wire continued to coil in the mid ureter. Being unable to advance the ureteroscope or place a second safety wire, the decision was made to utilize the indwelling safety wire for placement of a stent. This was done without difficulty and the stent had good position in the renal pelvis as well as the urinary bladder. The bladder was then emptied and the case was terminated. She was awakened and taken to the recovery room in good condition. There were no complications during the procedure. Surgical Findings: Previous ureteral stones were found within the renal pelvis. Successful removal of multiple stone fragments with debris remaining in the right kidney Complications Complications: No Admit VTE Documentation VTE Present on Admission: Yes VTE Mechan Device Prophylaxis: SCD's VTE Pharm Prophylaxis ordered?: No Reason prophylaxis not ordered: Treatment Not Indicated
[2025-02-06] MEDS: Dextrose 5%-Lactated Ringers 1,000 ML 100 ML IV ×2 (12:38→23:07)
[2025-02-06] MEDS: Citalopram 40 MG TABLET PO (13:01)
[2025-02-06] MEDS: buPROPion (XL) 150 MG TABLET.XL PO (13:02)
[2025-02-06] MEDS: Cholecalciferol (VIT D3) 25 MCG TABLET (1,000 UNITS) PO (13:02)
[2025-02-06] MEDS: Sodium Bicarbonate 650 MG Tablet PO ×2 (13:02→20:30)
[2025-02-06] MEDS: Acetaminophen 500 MG Tablet 1000 MG PO ×2 (13:03→20:30)
[2025-02-06] MEDS: Senna Tablet 1 TABLET PO ×2 (13:05→20:30)
--- NOTE | 2025-02-06 13:54 | POSTOPAN2_ITS ---
Anesthesia Postop Eval I Sum Postop Eval Completion status Anesthesia document: Postop Eval 1 completed: Yes Anesthesia Postop Eval I Summary Anesthesia Postop Eval I Summary: Anesthesia Postop Eval I: Assessment Summary Airway patent Yes 02/06/25 11:07 [email or web address] Spontaneous unlabored Yes 02/06/25 11:07 DORMITORY [email or web address] respirations Mental status Awake,Calm 02/06/25 11:07 DORMITORY [email or web address] nausea No 02/06/25 11:07 DORMITORY [email or web address] Vomiting No 02/06/25 11:07 DORMITORY [email or web address] Anesthesia Postop Eval I: Fluid Summary Crystalloid volume administer 1,000 02/06/25 11:07 DORMITORY [email or web address] (ml) Colloids volume administered ( ml) Blood Product volume administered (ml) Total IV fluid infused 1,000 02/06/25 11:07 DORMITORY [email or web address] Anesthesia Postop Eval I: Summary Notes Anesthesia Complication No 02/06/25 11:07 DORMITORY [email or web address] Anesthesia Complication Comment: Post-operative progress note Anesthesia: Postop Eval II Evaluation Mental status: Awake and Calm Pain Level: 0 nausea: No Vomiting: No Complications Anesthesia Complication: No
--- NOTE | 2025-02-06 13:54 | PCM.POSTANE2 ---
Anesthesia Postop Eval I Sum Postop Eval Completion status Anesthesia document: Postop Eval 1 completed: Yes Anesthesia Postop Eval I Summary Anesthesia Postop Eval I Summary: Anesthesia Postop Eval I: Assessment Summary Airway patent Yes 02/06/25 11:07 STILL [email or web address] Spontaneous unlabored Yes 02/06/25 11:07 STILL [email or web address] respirations Mental status Awake,Calm 02/06/25 11:07 STILL [email or web address] nausea No 02/06/25 11:07 STILL OPERATOR.[email or web address] Vomiting No 02/06/25 11:07 STILL [email or web address] Anesthesia Postop Eval I: Fluid Summary Crystalloid volume administer 1,000 02/06/25 11:07 STILL [email or web address] (ml) Colloids volume administered ( ml) Blood Product volume administered (ml) Total IV fluid infused 1,000 02/06/25 11:07 STILL [email or web address] Anesthesia Postop Eval I: Summary Notes Anesthesia Complication No 02/06/25 11:07 STILL [email or web address] Anesthesia Complication Comment: Post-operative progress note Anesthesia: Postop Eval II Evaluation Mental status: Awake and Calm Pain Level: 0 nausea: No Vomiting: No Complications Anesthesia Complication: No
[2025-02-07] VITALS (8 sets, daily range): BP systolic 103–138; BP diastolic 52–64; PULSE 76–92; RESP 15–20; TEMP 36.6–36.9; O2SAT 85–100; BMI 22.5
[2025-02-07] MEDS: Sodium Bicarbonate 650 MG Tablet PO ×2 (06:37→13:33)
[2025-02-07] MEDS: Acetaminophen 500 MG Tablet 1000 MG PO ×2 (06:37→13:32)
[2025-02-07] MEDS: Levothyroxine 88 MCG Tablet PO (06:37)
[2025-02-07 07:37] LABS: Hematocrit 26.7 % (37-47); Hemoglobin 8.4 g/dL (12.0-15.0); Mean Corp Hgb Conc 31.5 g/dL (32-36); Mean Corpuscular Hgb 29.2 pg (27.0-32.0); Mean Corpuscular Volume 92.7 fL (81-99); Mean Platelet Vol. 9.8 fl (6.2-12.0); Platelet Count 199 K/mm3 (150-450); RBC Distribution Width CV 13.4 % (11.6-14.6); RBC Distribution Width SD 45.2 fl (35.1-43.9); Red Blood Count 2.88 M/mm3 (4.2-5.4); White Blood Count 7.9 K/mm3 (4.4-11.0)
[2025-02-07 08:21] LABS: Anion Gap 11 (5-15); BUN 13 mg/dL (4-19); BUN/Creat Ratio 9.9 RATIO (10-20); Calcium,Total 8.4 mg/dL (7.6-11.0); Carbon Dioxide 19.5 mmol/L (21.0-32.0); Chloride 111 mmol/L (98-108); Creatinine, Serum 1.26 mg/dL (0.70-1.20); EST Glomerular Filtration Rate 43 (>60); Estimated Creatinine Clearance 27.32 ml/min (50-250); Glucose 124 mg/dL (70-99); Potassium 3.6 mmol/L (3.3-5.1); Sodium Level 141 mmol/L (133-145)
[2025-02-07] MEDS: Senna Tablet 1 TABLET PO (08:30)
[2025-02-07] MEDS: buPROPion (XL) 150 MG TABLET.XL PO (08:30)
[2025-02-07] MEDS: Citalopram 40 MG TABLET PO (08:30)
[2025-02-07] MEDS: Cholecalciferol (VIT D3) 25 MCG TABLET (1,000 UNITS) PO (08:30)
[2025-02-07 08:49] LABS: Ferritin 117 ng/mL (22-378); Iron 25 ug/dL (50-170); Iron Binding Capacity,Total 261 ug/dL (250-450); Iron Binding Capacity,Unsat 236 ug/dL (228-428)
--- NOTE | 2025-02-07 08:53 | CASEMGMT ---
Discharge Planning Updates sent to [facility]. Taylor Lim DC Planning Asst.
[2025-02-07] MEDS: Dextrose 5%-Lactated Ringers 1,000 ML 100 ML IV (09:32)
[2025-02-07] MEDS: Sodium Ferric Gluconat/Sucrose 250 MG in 0.9% Normal Saline (250mL Bag) 250 ML 135 MG IV (10:15)
[2025-02-07] MEDS: hydrOXYzine 10 MG Tablet PO (10:43)
--- NOTE | 2025-02-07 12:24 | CASEMGMT ---
Social Work- SW met with pt to discuss discharge plans. SW introduced self and role; pt agreeable to meeting. Pt shared that she is having an emotional day, feeling very overwhelmed with feelings. Pt reports that she does not regularly take anxiety medication and is not often anxious or overwhelmed, but feels an accumulation of events over the previous eight weeks have led to her feelings today. Pt reports that she does take wellbutrin so that she is not a basket case. Pt reports that she does not meet with a counselor and reports that it would be just another thing that she has to ask her kids for help with. SW discussed online counseling; pt reports that she is not good with technology and would not be interested. Pt shared that she has friends that visit and a friend group that meets regularly for lunch in addition to strong family supports. SW guided discussion on coping skills and calming techniques. Pt appreciative of supports. Pt reports that staff has been fantastic during this time. Pt reports that family assists with transportation, grocery shopping, getting pt mail, yard work, and larger household tasks. Pt indicates that she feels comfortable going home, as she did well with therapy today. Pt reports that she is interested in [facility], as she had a previous positive experience with [facility]. Pt does not have a preference of providers and declined a list. SW provided information on [facility], medical alert system, and counseling providers. Pt provided with [facility] and medical alert printables; pt declined counseling services at this time, as she doesn't want to add anything to her kids' responsibilities that they assist pt with. SW requested SW to follow with [facility] for support. RNCM updated. Pt was scheduled for Dr Jorge Luis franco 02/10 at 11:40. [facility] will start Monday. Pt and pt daughter updated and agreeable to discharge plans. Plan: home with [facility]ATH[facility] Elizondo
--- NOTE | 2025-02-07 12:40 | CASEMGMT ---
Discharge Planning Apostolic updated that pt will return home. Taylor Lim DC Planning Asst.
--- NOTE | 2025-02-07 12:40 | CASEMGMT ---
Addendum entered by Geneva Higuera 02/07/25 14:29: Per the flat sheet maker, pt qualifies for 2L with exertion. Rx signed by Dr. Snowden and sent to [facility] via [facility] at this time. Pt RN updated. RN CM to pt room at this time. Pt educated on home oxygen use and pt states understanding and that she has had home oxygen in the past. Pt states that she plans to follow up with her Booking Supervisor as an OP. Pt denies further needs at this time. Original Note: SW notified this RN CM that the pt is wanting to DC home with HHC instead of the SNF. RN CM to pt room. Pt is A&Ox4 and is sitting up in the chair. Pt daughter (Jessica) is on speaker phone. At this time, the pt states that she prefers to DC home alone and feels safe doing so. Pt states that her daughters as well as her neighbors will assist her at home. Pt states that she has a FWW, Cane, shower chair, and grab bars. Medical alert system information provided. Pt states that she prefers [facility] and denies wanting to review a list of local in-network HHC Agencies. This RN CM noted that the pt is a pt of Dr. Kang who prefers to see his pts in his office prior to [facility] starting. TC to Dr Kang's office who states that he can see the pt Saturday 02/10 @ 1140. Pt and pt daughter notified. TC to [facility] and referral made for SN, PT, OT, and SW (per [facility] SW request). Mimi from states that they can accept for SOC Sunday 02/11. Pt and pt daughter agreeable. This RN CM also noted that the pt was previously requiring additional oxygen and may qualify for home oxygen use. A verbal list of local in-network DME companies were provided to the pt at this time. Pt prefers [facility]Pt RN notified and states the pt will be tested to see if she qualifies prior to DC. CM to follow. Pt and pt daughter decline further concerns at this time. PLAN: Home with the support of pt family and friends, Medical alert system information, f/u with Dr Kang on Monday, & skilled HHC starting Monday. Follow for oxygen needs.
--- NOTE | 2025-02-07 13:13 | PCM.DC.SUM ---
Providers Date of Admission: 02/03/25 Date of Discharge: 02/07/25 Primary Care Physician: Dr. Elliot Kang MD Reason For Visit: FOLLOW UP WITH INJURY Diagnosis Discharge Diagnosis (1) General weakness: Status: Acute Code(s): R53.1 - Weakness (2) Difficulty in walking: Status: Acute Code(s): R26.2 - Difficulty in walking, not elsewhere classified Medications at Discharge Home Medications bupropion HCl 150 mg 24 hr tablet, extended release (Wellbutrin XL) 150 mg PO QAM quit smoking 11/28/18 citalopram 40 mg tablet 40 mg PO DAILY Anxiety 04/24/19 cyanocobalamin (vitamin B-12) 1,000 mcg/mL injection solution 100 mcg IM Q30D Supplement 10/08/19 cholecalciferol (vitamin D3) 25 mcg (1,000 unit) capsule (Vitamin D3) 25 mcg PO DAILY Supplement 10/09/21 levothyroxine 88 mcg tablet 88 mcg PO DAILY 12/14/23 albuterol sulfate 90 mcg/actuation aerosol inhaler (Ventolin HFA) 2 puff inhalation Q4H PRN shortness of breath or wheezing #18 grams 05/24/24 potassium chloride 20 mEq tablet,extended release 20 meq PO DAILY 12/21/24 sodium bicarbonate 650 mg tablet 650 mg PO TID 01/06/25 ondansetron 4 mg disintegrating tablet 4 mg PO Q8H PRN nausea and vomiting #10 tabs 01/16/25 ustekinumab 90 mg/mL subcutaneous syringe (Stelara) 90 mg subcut Q56D 01/31/25 hydroxyzine HCl 10 mg tablet 10 mg PO TID PRN PRN Anxiety/Agitation 7 days #21 tabs 02/07/25 Hospital Course Operations - (Cystoscopy and right ureteroscopy with laser lithotripsy, stone basket extraction and right ureteral stent exchange) Procedures - (Foot x-ray, knee x-ray) Summary of Care Provided Minutes Spent on Discharge: 35 Hospital Course: Patient is a 79-year-old female who presented to [facility] ED on 02/04/2025 with weakness and a fall at home. Hospital course as noted below. Patient discharged home with home health care in stable condition on 02/07. 1. Acute on chronic debility, mechanical fall with mild bilateral knee pain and difficulty with ambulation ? PT/OT/case management followed. Patient lives at home alone. Typically uses walker for ambulation. Had mechanical fall on day of admission with knee pain and bruising with subsequent difficulty with ambulation. Therapy scores borderline on hospital day 2. Had procedure done on 02/06 as noted below. Patient worked with therapy again on evening of 02/06 and morning of 02/07 with improved scores. Okay for discharge home with home health care on 02/07. Continue Tylenol as needed for pain control and discharge. 2. Recent history of right ureteral and renal stones with hydronephrosis s/p ureteral stent placement and recent UTI ? Follows with Dr. Morrison. Had cystoscopy with right ureteral stent insertion on 12/22 for right ureteral calculus with hydronephrosis and UTI. Had subsequent procedure on 01/16 for continued right ureteral and renal stones; that procedure included cystoscopy, laser lithotripsy, stone basket extraction, and right ureteral stent change. Urine culture then showed no growth and patient was treated with short course of p.o. antibiotics on that discharge. Denies any UTI symptoms currently. Had planned repeat cystoscopy with Dr. Morrison on 02/06 with further laser lithotripsy, stone basket extraction and right ureteral stent change. Tolerated procedure well. No further inpatient needs, continue outpatient follow-up. 3. Mild acute on chronic hypoxia in setting of COPD ? No concern for COPD exacerbation. Patient required 2 L nasal cannula after procedure on 02/06 to maintain appropriate oxygen saturations. According to patient and daughter, patient has required supplemental oxygen with exertion in the past. Completed O2 testing on day of discharge and did require 2 L nasal cannula with exertion. Oxygen prescription sent. Continue home inhalers. 4. Mild acute on chronic normocytic anemia ? Hemoglobin 10.4 on admit, baseline appears to be around 10-11. Hemoglobin dropped to 8.4 on morning of 02/07 after procedure on 02/06. Iron studies with mild iron deficiency anemia. Suspect multifactorial from mild iron deficiency as well as chronic kidney disease as noted below. Given 1 dose of IV iron on 02/07. Recommend follow-up CBC and about 1 week to ensure hemoglobin remains stable. 5. CKD stage IIIb ? Creatinine stable at baseline 1.2-1.3 with good urine output. 6. Depression/anxiety ? Continue home bupropion and citalopram. 7. Hypothyroidism ? Continue home Synthroid. Total clinical time spent by myself addressing the patient's medical issues, reviewing all the data, and collaborating with patient's care team: 35 minutes. Physical Exam Const alert, oriented x3, no apparent distress and average body habitus Constitutional Narrative: Elderly female, mildly anxious appearing but otherwise sitting up comfortably in bedside chair, conversing normally, in no acute distress. General Appearance: cooperative and comfortable HEENT normocephalic, head/scalp atraumatic, hearing grossly normal bilaterally, nasal mucous membranes and turbinates normal and moist oral mucous membranes Eyes PERRL, EOMs intact bilaterally and conjunctivae normal Neck full ROM Chest inspection of chest normal Resp normal respiratory effort, normal air movement, no use of accessory muscles and clear to auscultation bilaterally Cardio regular rate, regular rhythm, no murmurs and peripheral pulses 2+ throughout GI normal to inspection, nondistended, normoactive bowel sounds, soft to palpation, non-tender and non-distended Back/Spine normal ROM Extremity normal to inspection and no pedal edema Skin no rashes or lesions noted Psych mental status grossly normal Mood & Affect: anxious Weight / BMI Weight Weight: 54 kg Body Mass Index (BMI) 22.4 ABG / Lab / Microbiology Data 02/07/25 07:09 02/07/25 07:09 Laboratory: Laboratory Results - last 24 hr 02/07/25 07:09: WBC 7.9, RBC 2.88 L, Hgb 8.4 L, Hct 26.7 L, MCV 92.7, MCH 29.2, MCHC 31.5 L, RDW Std Deviation 45.2 H, RDW Coeff of Osmar 13.4, Plt Count 199, MPV 9.8, Sodium 141, Potassium 3.6, Chloride 111 H, Carbon Dioxide 19.5 L, Anion Gap 11, BUN 13, Creatinine 1.26 H, Estim Creat Clear Calc 27.32 L, Est GFR (MDRD) Non-Af 43 L, BUN/Creatinine Ratio 9.9 L, Glucose 124 H, Calcium 8.4, Iron 25 L, TIBC 261, Iron Saturation 10.0 L, Unsaturated IBC 236, Ferritin 117 D/C Instructions DC O2, CPAP, BIPAP Needs Home O2 Discharge instructions: Yes Type of respiratory needs?: Oxygen Oxygen frequency: With Ambulation Oxygen liters per minute during Ambulation: 2 DC home with Oxygen: Yes Home O2 MD Review: I have reviewed the oxygen testing, and the patient qualifies for home oxygen equipment and portability. The patient is mobile in the home and the community. Meaningful Use Info Meaningful Use Meaningful Use Diagnoses (Choose all that apply): None applicable Ischemic Stroke Statin Dosing Therapy Reference: STATIN DOSE THERAPY REFERENCE: * Patients > 75 years receive moderate or high dose statin therapy. * Patients 75 years or YOUNGER should receive HIGH intensity statin dose unless contraindicated. You will be required to document reason for non-treatment if statin daily dose does not meet guidelines. HIGH DOSE STATIN THERAPY DAILY Atorvastatin > than or = to 40 mg Rosuvastatin > than or = to 20 mg Amlodipine + Atorvastatin > than or = to 2.5/40 mg Ezetimibe + Simvastatin 10/80 mg Simvastatin 80mg Discharge Plan Admission Admit Date/Time: 02/03/25 19:48 Primary Reason for Your Visit: Weakness with falls Attending Provider: Carlitos Snowden Primary Care Provider: Elliot Kang Chi Consulting Providers: Mitul Kerns Discharge Orders/Prescriptions Prescriptions: New hydroxyzine HCl 10 mg Tablet 10 mg PO TID PRN PRN (Reason: Anxiety/Agitation) 7 Days Qty: 21 0RF Continued bupropion HCl [Wellbutrin XL] 150 mg tablet extended release 24 hr 150 mg PO QAM albuterol sulfate [Ventolin HFA] 90 mcg/actuation HFA aerosol inhaler 2 puff inhalation Q4H PRN (Reason: shortness of breath or wheezing) Qty: 18 6RF citalopram 40 MG tablet 40 mg PO DAILY cyanocobalamin (vitamin B-12) 1,000 MCG/ML solution 100 mcg IM Q30D cholecalciferol (vitamin D3) [Vitamin D3] 25 mcg (1,000 unit) Capsule 25 mcg PO DAILY levothyroxine 88 mcg tablet 88 mcg PO DAILY potassium chloride 20 mEq tablet extended release 20 meq PO DAILY ondansetron 4 mg tablet,disintegrating 4 mg PO Q8H PRN (Reason: nausea and vomiting) Qty: 10 0RF Patient Comments: HASNT NEEDED sodium bicarbonate 650 mg tablet 650 mg PO TID Stelara 90 mg/mL syringe 90 mg subcut Q56D Discontinued cephalexin 500 mg capsule 500 mg PO Q6H Patient Comments: START DATE- 01/31/25 Referrals / Follow Up: Minal Morrison MD [Med Staff - Active Staff] - Elliot Kang Chi, MD [Primary Care Provider] - 02/10/25 11:40 am Disposition Disposition (needs filled in before D/C Order can be placed): Home Health Service Charges/Coding Visit Charges Inpatient E&M: 82409 Disch Hosp >30min
[2025-02-07] MEDS: Phytonadione (Vit K1) 5 MG TABLET PO (13:32)
--- NOTE | 2025-02-07 13:58 | PCM.HOSP.N ---
Hospitalist Note I have reviewed the oxygen testing, and this patient qualifies for the home equipment and portability. The patient is mobile in the home and the community.
[2025-02-14 20:08] LABS: Ca Oxalate, Monohydrate 100 % (.); Size 2x2 mm (.)
== END 2025-02-07 17:03 | disposition home health service (06) | DRG 660 ==
LOC: ED 19:34 → MS3 20:47
PROVIDERS: Urology; Admitting Provider Family Medicine; Emergency Provider Emergency Medicine; PCP Family Medicine Geriatric Medicine; Referring Provider Emergency Medicine; Visit Provider Hospitalist
PROC: 0TJ98ZZ Inspection of Ureter, Via Natural or Artificial Opening Endoscopic (ICD-10-PCS; CPT 52352; principal; 2025-02-06 09:00)
DX: N13.2 Hydronephrosis with renal and ureteral calculous obstruction (principal); K50.90 Crohn's disease, unspecified, without complications; E03.9 Hypothyroidism, unspecified; N18.32 Chronic kidney disease, stage 3b; J44.9 Chronic obstructive pulmonary disease, unspecified; F32.A Depression, unspecified; Z93.3 Colostomy status; R26.2 Difficulty in walking, not elsewhere classified; W19.XXXA Unspecified fall, initial encounter; M19.90 Unspecified osteoarthritis, unspecified site; S80.02XA Contusion of left knee, initial encounter; M25.561 Pain in right knee; M25.562 Pain in left knee; R53.1 Weakness; Z90.710 Acquired absence of both cervix and uterus; Z79.890 Hormone replacement therapy; Z87.891 Personal history of nicotine dependence; Z96.0 Presence of urogenital implants; Z79.620 Long term (current) use of immunosuppressive biologic; Z87.81 Personal history of (healed) traumatic fracture; Z86.73 Personal history of transient ischemic attack (TIA), and cerebral infarction without residual deficits; Z85.048 Personal history of other malignant neoplasm of rectum, rectosigmoid junction, and anus; Z88.8 Allergy status to other drugs, medicaments and biological substances; Z88.5 Allergy status to narcotic agent; Z88.1 Allergy status to other antibiotic agents; Z88.6 Allergy status to analgesic agent; Z79.51 Long term (current) use of inhaled steroids; Z79.899 Other long term (current) drug therapy; Z99.89 Dependence on other enabling machines and devices; Y92.009 Unspecified place in unspecified non-institutional (private) residence as the place of occurrence of the external cause
CPT/HCPCS: 36415; 73564; 73630; 76000; 80048; 81001; 82360; 82728; 83540; 83550; 84439; 84443; 84481; 85025; 85027; 88300; 94640; 97116; 97162; 97166; 97530; 97535; 99284; C1769; A4216; C2625; J2916

== ENCOUNTER 2025-02-10 12:32 | Outpatient (CLI) | payer MEDICARE, OTHER, SELFPAY ==
[2025-02-10 13:20] VITALS: BP 130/69; PULSE 74; RESP 16; TEMP 36.3; O2SAT 97; BMI 21.9
[2025-02-10] MEDS: Lactated Ringers 1,000 ML 999 ML IV ×2 (13:21→14:27)
[2025-02-10] MEDS: 0.9% NaCl Peripheral Flush Adult IV (13:24)
[2025-02-10 13:51] LABS: Absolute Lymphocyte Count 2.08 X10^3/uL (0.83-4.51); Absolute Neutrophil Count 6.8 X10^3/uL (2.0-7.7); Basophil# 0.02 X10^3/uL; Basophil% 0.2 % (0-1); Eosinophil# 0.63 X10^3/uL; Eosinophils% 6.3 % (0-5); Hematocrit 32.1 % (37-47); Hemoglobin 10.1 g/dL (12.0-15.0); Lymphocyte # 2.08 X10^3/ul (0.83-4.51); Lymphocyte % 20.9 % (19-41); Mean Corp Hgb Conc 31.5 g/dL (32-36); Mean Corpuscular Hgb 29.5 pg (27.0-32.0); Mean Corpuscular Volume 93.9 fL (81-99); Mean Platelet Vol. 8.7 fl (6.2-12.0); NRBC Flagged by Analyzer 0 % (0-5); Neutrophil # 6.79 X10^3/uL (2.7-7.7); Neutrophil % 68.2 % (47-70); Platelet Count 274 K/mm3 (150-450); RBC Distribution Width CV 13.7 % (11.6-14.6); RBC Distribution Width SD 46.5 fl (35.1-43.9); Red Blood Count 3.42 M/mm3 (4.2-5.4)
[2025-02-10 14:01] LABS: Partial Thromboplast Time 29.4 Seconds (24.1-36.2); Prothrombin Time (Protime)PT. 13.7 SECONDS (11.7-14.9)
[2025-02-10 14:28] LABS: Ferritin 891 ng/mL (22-378); Iron 55 ug/dL (50-170); Iron Binding Capacity,Total 273 ug/dL (250-450); Iron Binding Capacity,Unsat 218 ug/dL (228-428); Magnesium 1.3 mg/dL (1.5-2.2)
[2025-02-10 15:19] VITALS: BP 138/70; PULSE 73; RESP 16; TEMP 36.6; O2SAT 96
== END 2025-02-10 23:59 | disposition home or self-care (01) ==
LOC: MEDOUTP 12:33
PROVIDERS: PCP Family Medicine Geriatric Medicine; Referring Provider Family Medicine Geriatric Medicine; Visit Provider Family Medicine Geriatric Medicine
DX: E86.0 Dehydration (principal); D50.9 Iron deficiency anemia, unspecified; E53.8 Deficiency of other specified B group vitamins; T14.8XXA Other injury of unspecified body region, initial encounter; X58.XXXA Exposure to other specified factors, initial encounter
CPT/HCPCS: 96360; 96361; 82728; 83540; 83550; 83735; 85025; 85610; 85730; A4216

== ENCOUNTER → 2025-02-10 | Outpatient (CLI) | payer MEDICARE, OTHER, SELFPAY ==
--- NOTE | 2025-02-10 15:29 | VDLE_ITS ---
Reason For Study Reason For Study: BLE Swelling RIGHT LEFT GSV is normal. GSV is normal. CFV is compressible, spontaneous, phasic, competent CFV is compressible, spontaneous, phasic, competent, and demonstrates normal augmentation. and demonstrates normal augmentation. FV is compressible, spontaneous, phasic, competent FV is compressible, spontaneous, phasic, competent and and demonstrates normal augmentation. demonstrates normal augmentation. POP V is compressible, spontaneous, phasic, competent POP V is compressible, spontaneous, and phasic. and demonstrates normal augmentation. T/P Trunk is compressible. T/P Trunk is compressible. PTV is compressible. PTV is compressible. LT PerV is compressible. RT PerV is compressible. Acute deep vein thrombosis is noted in the Procedure Gastrocnemius V. It is dilated and NONCOMPRESSIBLE. This is a venous duplex using B-mode, color flow and spectral Doppler. Exam performed in department. The exam was diagnostic. A preliminary report was called and/or faxed to Dr. Kang. VL/Venous Duplex US - Jer Extrem Interpretation Summary Acute deep vein thrombosis noted in the left gastrocnemius vein. Deep veins of the right lower extremity are patent and compressible segmentally . There is no evidence of right lower extremity deep vein thrombosis. The bilateral great saphenous veins appear rollins nt and compressible segmentally. Ordering Physician: Elliot Kang Chi Referring Physician: Elliot Kang Chi Performed By: Wong Alexander RVT
--- NOTE | 2025-02-11 13:43 | PCM.DC.BLA ---
Meaningful Use Info Ischemic Stroke Statin Dosing Therapy Reference: STATIN DOSE THERAPY REFERENCE: * Patients > 75 years receive moderate or high dose statin therapy. * Patients 75 years or YOUNGER should receive HIGH intensity statin dose unless contraindicated. You will be required to document reason for non-treatment if statin daily dose does not meet guidelines. HIGH DOSE STATIN THERAPY DAILY Atorvastatin > than or = to 40 mg Rosuvastatin > than or = to 20 mg Amlodipine + Atorvastatin > than or = to 2.5/40 mg Ezetimibe + Simvastatin 10/80 mg Simvastatin 80mg Discharge Plan Admission Reason For Visit: BLE Other specified soft tissue disorders Attending Provider: Elliot Kang Chi Primary Care Provider: Elliot Kang Chi Discharge Orders/Prescriptions Prescriptions: No Action bupropion HCl [Wellbutrin XL] 150 mg tablet extended release 24 hr 150 mg PO QAM albuterol sulfate [Ventolin HFA] 90 mcg/actuation HFA aerosol inhaler 2 puff inhalation Q4H PRN (Reason: shortness of breath or wheezing) Qty: 18 6RF citalopram 40 MG tablet 40 mg PO DAILY cyanocobalamin (vitamin B-12) 1,000 MCG/ML solution 100 mcg IM Q30D cholecalciferol (vitamin D3) [Vitamin D3] 25 mcg (1,000 unit) Capsule 25 mcg PO DAILY levothyroxine 88 mcg tablet 88 mcg PO DAILY potassium chloride 20 mEq tablet extended release 20 meq PO DAILY ondansetron 4 mg tablet,disintegrating 4 mg PO Q8H PRN (Reason: nausea and vomiting) Qty: 10 0RF Patient Comments: HASNT NEEDED sodium bicarbonate 650 mg tablet 650 mg PO TID Stelara 90 mg/mL syringe 90 mg subcut Q56D hydroxyzine HCl 10 mg Tablet 10 mg PO TID PRN PRN (Reason: Anxiety/Agitation) 7 Days Qty: 21 0RF Referrals / Follow Up: Elliot Kang Chi, MD [Primary Care Provider] - Disposition Patient Disposition: Home, Self Care
== END | disposition home or self-care (01) ==
PROVIDERS: PCP Family Medicine Geriatric Medicine; Referring Provider Family Medicine Geriatric Medicine; Visit Provider Family Medicine Geriatric Medicine
DX: M79.89 Other specified soft tissue disorders (principal)
CPT/HCPCS: 93970

== ENCOUNTER → 2025-02-17 | Outpatient (CLI) | payer MEDICARE, OTHER, SELFPAY ==
--- NOTE | 2025-02-17 14:55 | CT_ITS ---
PROCEDURE: ABDOMEN/PELVIS WITHOUT CONT 02/17/2025 REASON FOR EXAM: UETERAL AND KIDNEY STONES Hematuria. Left flank pain. TECHNIQUE: Abdomen and pelvis CT without intravenous contrast. Noncontrast technique limits evaluation of the abdominal and pelvic viscera. Coronal and Sagittal reconstruction series were provided. One or more dose reduction techniques were used (e.g., Automated exposure control, adjustment of the mA and/or kV according to patient size, use of iterative reconstruction technique). PATIENT PREPARATION: Per protocol ORAL CONTRAST TYPE: None. COMPARISON: Comparison is made with prior study dated January 19, 2025. FINDINGS: Lung bases: Unremarkable. Minimal anterior pericardial thickening. Liver: Normal size. No obvious mass. Gallbladder: Surgically absent. Spleen: Normal size. Pancreas: Normal size. No surrounding inflammation. Adrenals: Unremarkable. Kidneys: Stable bilateral intrarenal calculi. A right-sided double-J stent catheter is seen with the proximal tip in the proximal right ureter in the distal tip is in the right side of the bladder. Bladder: An ostomy is seen in the left lower quadrant. The urinary bladder is empty. Reproductive Organs: Prior hysterectomy. Bowel: Colonic diverticulosis without diverticulitis. Duodenal diverticulum. Circumferential wall thickening of the rectum. This is unchanged. Appendix: The appendix is not identified. There is no inflammatory process identified in the right lower quadrant to suggest appendicitis. Lymph nodes: Vasculature: Mild diffuse atherosclerotic calcifications of the abdominal aorta and the major visceral branches including the renal arteries. Are noted. Peritoneum / Retroperitoneum: Unremarkable Bones: Degenerative changes of the spine. CT/Abdomen/Pelvis without Cont IMPRESSION: Bilateral intrarenal calculi. 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 stent as described. Stable examination. Reading Location: [place] [id number]
== END | disposition home or self-care (01) ==
LOC: CT 14:54
PROVIDERS: PCP Family Medicine Geriatric Medicine; Referring Provider Urology; Visit Provider Urology
DX: N20.1 Calculus of ureter (principal); N20.0 Calculus of kidney
CPT/HCPCS: 74176

== ENCOUNTER → 2025-02-19 | Outpatient (CLI) | payer MEDICARE, OTHER, SELFPAY ==
[2025-02-19 10:45] LABS: Absolute Lymphocyte Count 2.52 X10^3/uL (0.83-4.51); Absolute Neutrophil Count 10.1 X10^3/uL (2.0-7.7); Basophil# 0.02 X10^3/uL; Basophil% 0.1 % (0-1); Eosinophil# 0.28 X10^3/uL; Eosinophils% 2.1 % (0-5); Hemoglobin 10.8 g/dL (12.0-15.0); Lymphocyte # 2.52 X10^3/ul (0.83-4.51); Lymphocyte % 18.5 % (19-41); Mean Corp Hgb Conc 31.8 g/dL (32-36); Mean Corpuscular Hgb 29.6 pg (27.0-32.0); Mean Corpuscular Volume 93.2 fL (81-99); Mean Platelet Vol. 8.9 fl (6.2-12.0); Monocyte# 0.67 X10^3/uL; Monocyte% 4.9 % (0-10); NRBC Flagged by Analyzer 0 % (0-5); Neutrophil # 10.07 X10^3/uL (2.7-7.7); Neutrophil % 73.7 % (47-70); Platelet Count 326 K/mm3 (150-450); RBC Distribution Width CV 15.7 % (11.6-14.6); RBC Distribution Width SD 53.6 fl (35.1-43.9); Red Blood Count 3.65 M/mm3 (4.2-5.4); White Blood Count 13.7 K/mm3 (4.4-11.0)
[2025-02-19 11:28] LABS: Vitamin D,25 Hydroxy 28.2 ng/mL (30-100)
[2025-02-19 11:29] LABS: ALB/GLOB Ratio 0.9 RATIO (0.9-2.4); AST(SGOT) 17 U/L (<=31); Alanine Aminotransfer ALT/SGPT 6 U/L (<=34); Albumin, Serum 3.2 g/dL (3.4-4.8); Alkaline Phosphatase 97 U/L (35-104); Anion Gap 12 (5-15); BUN 14 mg/dL (4-19); BUN/Creat Ratio 9.7 RATIO (10-20); Calcium,Total 8.8 mg/dL (7.6-11.0); Carbon Dioxide 12.9 mmol/L (21.0-32.0); Chloride 110 mmol/L (98-108); Creatinine, Serum 1.45 mg/dL (0.70-1.20); EST Glomerular Filtration Rate 37 (>60); Globulin 3.5 g/dL (2.2-4.2); Glucose 94 mg/dL (70-99); Potassium 3.7 mmol/L (3.3-5.1); Protein, Total 6.7 g/dL (5.9-8.4); Sodium Level 134 mmol/L (133-145)
== END | disposition home or self-care (01) ==
LOC: LAB 10:01
PROVIDERS: PCP Family Medicine Geriatric Medicine; Referring Provider Family Medicine Geriatric Medicine; Visit Provider Family Medicine Geriatric Medicine
DX: N20.2 Calculus of kidney with calculus of ureter (principal); R53.83 Other fatigue; E55.9 Vitamin D deficiency, unspecified
CPT/HCPCS: 36415; 80053; 82306; 84443; 85025

== ENCOUNTER 2025-02-20 16:57 | Inpatient (IN) | payer MEDICARE, OTHER, SELFPAY ==
[2025-02-20] VITALS (18 sets, daily range): BP systolic 97–146; BP diastolic 61–78; PULSE 67–95; RESP 18–29; TEMP 36.3–37.2; O2SAT 88–100; BMI 20.5
--- NOTE | 2025-02-20 17:16 | EKG12_ITS ---
Test Reason : SOB Blood Pressure : */* mmHG Vent. Rate : 91 BPM Atrial Rate : 91 BPM P-R Int : 184 ms QRS Dur : 74 ms QT Int : 348 ms P-R-T Axes : 88 81 88 degrees QTcB Int : 428 ms Normal sinus rhythm Junctional ST depression, probably abnormal Borderline Confirmed by Abdirahman Carpio ([id number]), associate entertainment editor DYLON ZUNIGA ([id number]) on 02/21/2025 12:49:23 PM Referred By: Confirmed By: Abdirahman Carpio
[2025-02-20 18:16] LABS: Absolute Lymphocyte Count 2.19 X10^3/uL (0.83-4.51); Absolute Neutrophil Count 9.1 X10^3/uL (2.0-7.7); Basophil# 0.02 X10^3/uL; Basophil% 0.2 % (0-1); Eosinophil# 0.28 X10^3/uL; Eosinophils% 2.3 % (0-5); Hematocrit 35.1 % (37-47); Hemoglobin 11.2 g/dL (12.0-15.0); Lymphocyte # 2.19 X10^3/ul (0.83-4.51); Lymphocyte % 17.9 % (19-41); Mean Corp Hgb Conc 31.9 g/dL (32-36); Mean Corpuscular Hgb 30.3 pg (27.0-32.0); Mean Corpuscular Volume 94.9 fL (81-99); Mean Platelet Vol. 8.5 fl (6.2-12.0); Monocyte# 0.63 X10^3/uL; Monocyte% 5.1 % (0-10); NRBC Flagged by Analyzer 0 % (0-5); Neutrophil # 9.07 X10^3/uL (2.7-7.7); Neutrophil % 74.1 % (47-70); Platelet Count 279 K/mm3 (150-450); RBC Distribution Width CV 15.8 % (11.6-14.6); RBC Distribution Width SD 54.4 fl (35.1-43.9); White Blood Count 12.2 K/mm3 (4.4-11.0)
[2025-02-20 18:40] LABS: Anion Gap 13 (5-15); BUN 14 mg/dL (4-19); BUN/Creat Ratio 9.1 RATIO (10-20); Calcium,Total 8.9 mg/dL (7.6-11.0); Carbon Dioxide 14.8 mmol/L (21.0-32.0); Chloride 114 mmol/L (98-108); Creatinine, Serum 1.49 mg/dL (0.70-1.20); EST Glomerular Filtration Rate 36 (>60); Glucose 96 mg/dL (70-99); Potassium 3.6 mmol/L (3.3-5.1); Sodium Level 141 mmol/L (133-145); Troponin T High Sensitivity 18 ng/L (<=14)
--- NOTE | 2025-02-20 20:17 | ED.VIS.DYS ---
HPI History of Present Illness Chief Complaint: Shortness of Breath Narrative Narrative: 79-year-old female presents with her daughters because of increasing shortness of breath. They relate history that she was released from the hospital about 2 weeks ago and she was recently started on home oxygen because she failed her walking test, and became very dyspneic on exertion. She has been wearing 2 L and she is supposed to wear it when she exerts herself. Her daughter states that she could only walk 3 feet and she became very tachypneic and short of breath. Patient denies any fevers or chills but she has had a cough with clear to yellow mucus. Of note, she also has a stent in her ureter and has been having issues with her kidneys including hematuria. They would like her urine checked as well. The main concern is that she has an appointment with her endodontic assistant on Monday, but she was very short of breath and dyspneic today. She has had to wear her oxygen more frequently. 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 Crohn's disease Diarrhea Diarrhea Wears hearing aid Wears dentures Cancer Anxiety Thyroid disease Walker as ambulation aid Arthritis Easy bruising TIA (transient ischemic attack) Former smoker COPD (chronic obstructive pulmonary disease) Shortness of breath on exertion History of pain when walking History of echocardiogram History of stress test History of fracture of patella Stage 3b chronic kidney disease (CKD) Osteoporosis Urinary retention Rectal cancer Hydronephrosis Lung cancer Rectal cancer Decreased appetite Abdominal bloating COPD (chronic obstructive pulmonary disease) TIA (transient ischemic attack) Nicotine abuse Depression Anxiety Hypothyroidism COPD exacerbation Chronic bronchitis 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 calculus Hydronephrosis, right Filling defect on imaging study History of rectal cancer Home Medications ?Medication ?Instructions ?Recorded ?Last Taken ?Type bupropion HCl 150 mg 24 hr tablet, 150 mg PO QAM quit smoking 11/28/18 02/03/25 History extended release (Wellbutrin XL) citalopram 40 mg tablet 40 mg PO DAILY Anxiety 04/24/19 02/03/25 History cyanocobalamin (vitamin B-12) 100 mcg IM Q30D Supplement 10/08/19 01/22/25 History 1,000 mcg/mL injection solution cholecalciferol (vitamin D3) 25 25 mcg PO DAILY Supplement 10/09/21 02/03/25 History mcg (1,000 unit) capsule (Vitamin D3) levothyroxine 88 mcg tablet 88 mcg PO DAILY 12/14/23 02/03/25 History albuterol sulfate 90 mcg/actuation 2 puff inhalation Q4H PRN 05/24/24 01/16/25 Rx aerosol inhaler (Ventolin HFA) shortness of breath or wheezing #18 grams potassium chloride 20 mEq 20 meq PO DAILY 12/21/24 02/03/25 History tablet,extended release sodium bicarbonate 650 mg tablet 650 mg PO TID 01/06/25 02/03/25 History ondansetron 4 mg disintegrating 4 mg PO Q8H PRN nausea and 01/16/25 Unknown Rx tablet vomiting #10 tabs ustekinumab 90 mg/mL subcutaneous 90 mg subcut Q56D 01/31/25 01/30/25 History syringe (Stelara) hydroxyzine HCl 10 mg tablet 10 mg PO TID PRN PRN 02/07/25 Unknown Rx Anxiety/Agitation 7 days #21 tabs apixaban 5 mg tablet (Eliquis) 5 mg PO BID 02/20/25 Unknown History magnesium oxide 400 mg (241.3 mg 400 mg PO DAILY 02/20/25 Unknown History magnesium) tablet Allergy/AdvReac Type Severity Reaction Status Date / Time levofloxacin Allergy Mild Rash Verified 02/20/25 17:00 ciprofloxacin HCl (From Allergy Rash Verified 02/20/25 17:00 Cipro) Penicillins Allergy Hives Verified 02/20/25 17:00 codeine AdvReac makes her Verified 02/20/25 17:00 feel weird magnesium citrate AdvReac Nausea Verified 02/20/25 17:00 NSAIDS (Non-Steroidal AdvReac kidney Verified 02/20/25 17:00 Anti-Inflamma damage r/t long-term usage advised not to use Family History Father Heart disease Mother Heart disease Sister Heart disease Diabetes Other Crohn's disease Surgical History S/P ureteral stent placement S/P lobectomy of lung History of cystoscopy History of colonoscopy (~10/2019) History of colostomy History of cholecystectomy History of bowel resection History of hysterectomy History of delivery Social History household members: none Smoking Status: Former smoker Tobacco: How many years used: 53 how long ago did patient quit smoking: Quit 2-5 years prior. second hand exposure: No alcohol intake: never substance use type: does not use caffeine: No what type of physical activity do you participate in: none ROS ROS ED ROS Narrative Constitutional: No fever, no chills. Cardiovascular: No chest pain. No palpitations. No pedal edema. Respiratory: Positive cough, positive dyspnea on exertion and shortness of breath. Abdominal: No abdominal pain. No nausea. No vomiting. Genitourinary: No dysuria. Positive hematuria. EXAM Physical Exam Narrative Exam Narrative: Afebrile. Vital signs noted. Nontoxic-appearing. Cardiovascular examination reveals a regular rate and rhythm. Mild tachypnea at rest. Lungs are clear to auscultation bilaterally but she has decreased breath sounds in the bilateral bases. Abdomen soft and nontender with normoactive bowel sounds. Neurological examination shows her to be awake, alert, interactive, nonfocal, nonlateralizing. Const Vital Signs: 02/20/25 17:00 02/20/25 19:33 02/20/25 19:57 Temperature 98.9 F Temperature Source Temporal Pulse Rate 95 95 Respiratory Rate 18 25 H 29 H Respiratory Effort Respiratory Depth Respiratory Pattern Blood Pressure 111/66 126/70 H Blood Pressure Mean 81 88 Pulse Ox 97 100 98 Oxygen Delivery Method Room Air Nasal Cannula Nasal Cannula Oxygen Flow Rate (L/min) 2 2 02/20/25 19:58 02/20/25 20:00 02/20/25 20:28 Temperature 97.4 F L 97.8 F Temperature Source Oral Oral Pulse Rate 92 85 88 Respiratory Rate 26 H 29 H 22 H Respiratory Effort Respiratory Depth Respiratory Pattern Tachypnea Blood Pressure 146/78 H 135/74 H Blood Pressure Mean 100 94 Pulse Ox 98 99 Oxygen Delivery Method Room Air Nasal Cannula Oxygen Flow Rate (L/min) 2 02/20/25 20:35 02/20/25 20:53 02/20/25 20:54 Temperature Temperature Source Pulse Rate Respiratory Rate Respiratory Effort Respiratory Depth Respiratory Pattern Blood Pressure Blood Pressure Mean Pulse Ox 88 97 Oxygen Delivery Method Nasal Cannula Room Air Nasal Cannula Oxygen Flow Rate (L/min) 2 2 02/20/25 21:11 02/20/25 22:17 02/20/25 22:59 Temperature 97.8 F Temperature Source Pulse Rate 67 87 Respiratory Rate 24 H 20 H Respiratory Effort Short of Breath Respiratory Depth Shallow Respiratory Pattern Tachypnea Blood Pressure 115/67 116/66 Blood Pressure Mean 83 82 Pulse Ox 97 94 Oxygen Delivery Method Nasal Cannula Nasal Cannula Oxygen Flow Rate (L/min) 2 2 MDM MDM MDM Narrative Medical decision making narrative: Differential diagnosis includes but not limited to pneumonia versus chronic bronchitis versus COPD exacerbation versus pneumothorax. I have low clinical suspicion for pneumothorax based on her examination. Protocol labs were started. Additionally she will be given a DuoNeb aerosolized treatment and started on Solu-Medrol. EKG was obtained and interpreted by myself independently as normal sinus rhythm at 91 bpm without ectopy or acute ST changes. No STEMI. I reviewed her laboratory work and she has slight elevation of her white count at 12.2 but this is improved when compared to prior laboratories. Hemoglobin is stable at 11.2, platelet count 279. BMP remarkable for chloride of 114 which I think is nonspecific, BUN of 14 and creatinine 1.49. Glucose appropriately elevated 96. Urinalysis shows greater than 100 RBCs with WBCs 10-25. There is 1+ bacteria. This was sent for culture. On my individual interpretation of her chest x-ray, I see no significant change when compared to prior chest x-rays, no pneumothorax. I reviewed the radiology report which comments on right lower lobe pneumonia. Reportedly, the patient was very dyspneic when she got up to use the bedside commode. This was even when she was on oxygen. Her daughter is very concerned because she lives alone. I will discuss observation with the hospitalist, but she will also be ambulated to see if she becomes extremely tachypneic and tachycardic as well. I will review her medication list as she has multiple allergies and treat UTI. I did review her previous medication list in the EMR, and she has been given cefazolin 2 g previously by urology, Dr. Morrison. Of note, RN reports that when patient ambulated even on oxygen, she had oxygen desaturation to 88% and became tachypneic. Patient will be discussed with Dr. Snowden. Patient is in stable condition. History & Record Review Discussion w/independent historian: Patient and Family Lab Data Attestation: I reviewed the patient's lab results. Labs: Laboratory Results - last 24 hr 02/20/25 02/20/25 18:08 20:51 WBC 12.2 H RBC 3.70 L Hgb 11.2 L Hct 35.1 L MCV 94.9 MCH 30.3 MCHC 31.9 L RDW Std Deviation 54.4 H RDW Coeff of Osmar 15.8 H Plt Count 279 MPV 8.5 Immature Gran % (Auto) 0.400 Neut % (Auto) 74.1 H Lymph % (Auto) 17.9 L [place] % (Auto) 5.1 Eos % (Auto) 2.3 Baso % (Auto) 0.2 Absolute Neuts (auto) 9.1 H Absolute Lymphs (auto) 2.19 Nucleated RBC % 0 Sodium 141 Potassium 3.6 Chloride 114 H Carbon Dioxide 14.8 L Anion Gap 13 BUN 14 Creatinine 1.49 H Estim Creat Clear Calc 23.10 L Est GFR (MDRD) Non-Af 36 L BUN/Creatinine Ratio 9.1 L Glucose 96 Calcium 8.9 Troponin T High Sens 18 H D Urine Color Red Urine Clarity Turbid Urine pH 6.0 Ur Specific [place] 1.020 Urine Protein TNP Urine Glucose (UA) Normal Urine Ketones Negative Urine Occult Blood 250 H Urine Nitrite Negative Urine Bilirubin Negative Urine Urobilinogen Normal Ur Leukocyte Esterase 100 H Urine RBC > 100 SEEN Urine WBC 10-25 SEEN Ur Squamous Epith Cells 0 SEEN Urine Bacteria 1+ Urine Mucus 0 SEEN U Random Total Protein 201.0 H Radiography Chest X-Ray - ED: 1 View, Read by ED Physician and Read by Radiologist Diagnostic Testing: Clinical Impression(s) from Imaging Studies Chest X-Ray 02/20/25 20:55 IMPRESSION: Right lower lobe pneumonia. Reading Location: [id number] Management Discussion w/another healthcare provider: Hospitalist (Dr. Snowden) Discharge Plan Dx/Rx/DC Orders Clinical Impression: COPD exacerbation, Dyspnea, UTI (urinary tract infection), Hematuria Disposition Disposition: Acute Care [facility]
[2025-02-20] MEDS: Ipratropium/Albuterol Sulfate 3 ML AMPUL.NEB INHALATION (20:28)
[2025-02-20] MEDS: MethylPREDNISolone 125 MG/2 ML Vial 60 MG IV (20:37)
--- NOTE | 2025-02-20 20:55 | RAD_ITS ---
PROCEDURE: CHEST 1 VIEW (PORTABLE) 02/20/2025 REASON FOR EXAM: SHORTNESS OF BREATH TECHNIQUE: Frontal view of the chest. COMPARISON: 01/31/2025 FINDINGS: Hardware: None Heart: Cardiac and mediastinal contours are stable. Lungs: Alveolar opacity in the lower right lung consistent with a right lower lobe pneumonia. Bones: The bones are unremarkable. Other: RAD/Chest 1 View (Portable) IMPRESSION: Right lower lobe pneumonia. Reading Location: [id number]
[2025-02-20 20:57] LABS: Mucous, Urine 0 SEEN /hpf (<or=2+); Squamous Epithelial Cells - UA 0 SEEN /hpf (5-10)
[2025-02-20 21:04] LABS: Color, Urine Red (Yellow); Glucose, Dipstick Normal (Normal); Ketone-Dipstick Negative (Negative); Leukocyte Esterase-Dipstick 100 /ul (Negative); Nitrite-Dipstick Negative (Negative); Occult Blood-Urine 250 /ul (Negative); Urine Bilirubin Dipstick Negative (Negative); Urine Clarity Turbid (Clear); Urine Urobilinogen Normal (Normal)
[2025-02-20 21:11] LABS: Red Blood Cells-Urine > 100 SEEN /hpf (0-5)
[2025-02-20 21:12] LABS: Bacteria 1+ /hpf (None Seen); White Blood Cells 10-25 SEEN /hpf (0-5)
--- NOTE | 2025-02-20 23:01 | ED.RN ---
This RN attempted to ambulate, pt became severely short of breath/tachypnic, shaky, and was only able to take 3 steps without being weak and needing to sit down.
[2025-02-20] MEDS: Cefazolin 2 GM in Syringe 10 ML IV (23:14)
[2025-02-21] VITALS (15 sets, daily range): BP systolic 108–143; BP diastolic 60–77; PULSE 77–106; RESP 16–22; TEMP 36.3–37; O2SAT 83–97; BMI 17.9
--- NOTE | 2025-02-21 00:29 | NM_ITS ---
PROCEDURE: LUNG SCAN VENT/PERF 02/21/2025 REASON FOR EXAM: RECENT DVT W/ HYPOXIA, CKD, EVAL FOR PE TECHNIQUE: Nuclear medicine V/Q scan using 48 mCi DTPA for ventilation imaging and 5.1 mCi Tc-99m MAA intravenously for perfusion imaging. Posterior ventilation images. Anterior, posterior, right and left lateral, [place]IVAN, GRACIE, RPO, and LPO perfusion images. COMPARISON: Comparison is made with prior chest radiograph dated February 20, 2025. FINDINGS: Ventilation images: Findings suggestive of airway disease with the aggregation of the inhaled radiopharmaceutical in the central bronchi. Perfusion images: No suspicious perfusion defects. NM/Lung Scan Vent/Perf IMPRESSION: LOW PROBABILITY OF ACUTE PULMONARY EMBOLISM. Reading Location: [id number]
--- NOTE | 2025-02-21 05:01 | HP.PCM.HOS_ITS ---
HPI - General General Date of Admission: 02/21/25 Date of Service: 02/21/25 Chief Complaint: Worsening shortness of breath HPI Narrative JOSE DE JESUS GOLD, is a 79 F who presented to [facility] [place] ED on 02/21/2025 with worsening shortness of breath. Patient was recently hospitalized here from 02/03-02/07 for acute on chronic debility with recent fall at home. The hospital course was complicated by hypoxia on exertion. Patient has history of COPD and required oxygen in the past but had not required supplemental oxygen for a few years. Respiratory workup was negative during admission but on testing, patient did require 2 L nasal cannula with exertion and was discharged home on this. Since then, patient has had progressive worsening shortness of breath with exertion and reports now only being able to walk a few feet before becoming very dyspneic. She denies any fevers or chills but has had a cough with intermittent clear to yellowish phlegm production. She was scheduled to see pulmonology in the office on Monday but given her worsening symptoms she came into the ED for further evaluation. In the ED she was satting in the mid to high 90s on room air at rest but dropped to the mid to high 80s with exertion and was placed on 2 L nasal cannula. Chest x-ray appeared to show an alveolar opacity in the right lung consistent with right lower lobe pneumonia. She was given a breathing treatment with mild to moderate improvement. Was also given a dose of IV steroids. Given concern for pneumonia with COPD exacerbation and that patient lives alone at home, hospitalist was contacted for admission. I saw the patient at bedside in the ED, daughter was present. Patient was sitting back comfortably in bed and in no acute distress. She was anxious appearing at baseline and somewhat tearful a few times during the encounter. I saw her during her previous admission and she was anxious and tearful like this during a few encounters then as well. She denies any significant shortness of breath at rest but is very concerned about her shortness of breath with exertion. She denies any presyncopal symptoms with exertion, states she feels very dyspneic and somewhat wheezy with exertion. Denies any fevers or chills. Has not been drinking or eating much over the past few days and urine output has been less frequent over that timeframe. No other acute concerns at this time. [facility] Medical History Kidney stone Hypothyroidism Depression Ureteral stent present 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 calculus nursing home current use of immunosuppressive drug Crohn's disease Diarrhea Diarrhea Wears hearing aid Wears dentures Cancer Anxiety Thyroid disease Walker as ambulation aid Arthritis Easy bruising TIA (transient ischemic attack) Former smoker COPD (chronic obstructive pulmonary disease) Shortness of breath on exertion History of pain when walking History of echocardiogram History of stress test History of fracture of patella Stage 3b chronic kidney disease (CKD) Osteoporosis Urinary retention Rectal cancer Hydronephrosis Lung cancer Rectal cancer Decreased appetite Abdominal bloating COPD (chronic obstructive pulmonary disease) TIA (transient ischemic attack) Nicotine abuse Depression Anxiety Hypothyroidism COPD exacerbation Chronic bronchitis 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 calculus Hydronephrosis, right Filling defect on imaging study History of rectal cancer Home Medications ?Medication ?Instructions ?Recorded ?Last Taken ?Type bupropion HCl 150 mg 24 hr tablet, 150 mg PO QAM quit smoking 11/28/18 02/03/25 History extended release (Wellbutrin XL) citalopram 40 mg tablet 40 mg PO DAILY Anxiety 04/2402/03/25 History cyanocobalamin (vitamin B-12) 100 mcg IM Q30D Suppleme nt 10/08/19 01/22/25 History 1,000 mcg/mL injection solution cholecalciferol (vitamin D3) 25 25 mcg PO DAILY Supple ment 10/09/21 02/03/25 History mcg (1,000 unit) capsule (Vitamin D3) levothyroxine 88 mcg tablet 88 mcg PO DAILY 12/14/23 0 02/03/25 History albuterol sulfate 90 mcg/actuation 2 puff inhalation Q 4H PRN 05/24/24 01/16/25 Rx aerosol inhaler (Ventolin HFA) shortness of breath or wheezing #18 grams potassium chloride 20 mEq 20 meq PO DAILY 12/21/24 History tablet,extended release sodium bicarbonate 650 mg tablet 650 mg PO TID 5 02/03/25 History ondansetron 4 mg disintegrating 4 mg PO Q8H PRN nausea and 01/16/25 Unknown Rx tablet vomiting #10 tabs ustekinumab 90 mg/mL subcutaneous 90 mg subcut Q56D 01/30/25 History syringe (Stelara) hydroxyzine HCl 10 mg tablet 10 mg PO TID PRN PRN 04/02/28 Unknown Rx Anxiety/Agitation 7 days #21 tabs apixaban 5 mg tablet (Eliquis) 5 mg PO BID 02/20/25 Un known History magnesium oxide 400 mg (241.3 mg 400 mg PO DAILY 02/20 Unknown History magnesium) tablet Allergy/AdvReac Type Severity Reaction Status Date / Time levofloxacin Allergy Mild Rash Verified 02/20/25 17:00 ciprofloxacin HCl (From Allergy Rash Verified 02/20/25 17:00 Cipro) Penicillins Allergy Hives Verified 02/20/25 17:00 codeine AdvReac makes her Verified 02/20/25 17:00 feel weird magnesium citrate AdvReac Nausea Verified 02/20/25 17:00 NSAIDS (Non-Steroidal AdvReac kidney Verified 02/20/25 17:00 Anti-Inflamma damage r/t long-term usage advised not to use Family History Father Heart disease Mother Heart disease Sister Heart disease Diabetes Other Crohn's disease Surgical History S/P ureteral stent placement S/P lobectomy of lung History of cystoscopy History of colonoscopy (~10/2019) History of colostomy History of cholecystectomy History of bowel resection History of hysterectomy History of delivery Social History household members: none Smoking Status: Former smoker Tobacco: How many years used: 53 how long ago did patient quit smoking: Quit 2-5 years prior. second hand exposure: No alcohol intake: never substance use type: does not use caffeine: No what type of physical activity do you participate in: none ROS Constitutional Constitutional: Reports fatigue and weakness; Denies chills or fever(s) Eyes Eyes: Denies change in vision Cardiovascular Cardiovascular: Reports dyspnea on exertion; Denies chest pain, edema or lightheadedness Respiratory/Chest Respiratory/Chest: Reports cough, dyspnea, productive cough, shortness of breath with exertion and wheezing; Denies shortness of breath at rest Gastrointestinal Gastrointestinal: Denies abdominal pain Genitourinary Genitourinary: Reports hematuria; Denies burning urination, dysuria or urinary urgency Musculoskeletal Musculoskeletal: Denies arthralgias or myalgias Neurologic Neurologic: Denies dizziness or headache(s) Vital Signs Vital Signs Vital Signs: 02/20/25 17:00 02/20/25 19:33 02/20/25 19:57 Temperature 98.9 F Temperature Source Temporal Pulse Rate 95 95 Respiratory Rate 18 25 H 29 H Respiratory Effort Respiratory Depth Respiratory Pattern Blood Pressure 111/66 126/70 H Blood Pressure Mean 81 88 Blood Pressure Source Pulse Ox 97 100 98 Oxygen Delivery Method Room Air Nasal Cannula Nasal Cannula Oxygen Flow Rate (L/min) 2 2 02/20/25 19:58 02/20/25 20:00 02/20/25 20:28 Temperature 97.4 F L 97.8 F Temperature Source Oral Oral Pulse Rate 92 85 88 Respiratory Rate 26 H 29 H 22 H Respiratory Effort Respiratory Depth Respiratory Pattern Tachypnea Blood Pressure 146/78 H 135/74 H Blood Pressure Mean 100 94 Blood Pressure Source Pulse Ox 98 99 Oxygen Delivery Method Room Air Nasal Cannula Oxygen Flow Rate (L/min) 2 02/20/25 20:35 02/20/25 20:53 02/20/25 20:54 Temperature Temperature Source Pulse Rate Respiratory Rate Respiratory Effort Respiratory Depth Respiratory Pattern Blood Pressure Blood Pressure Mean Blood Pressure Source Pulse Ox 88 97 Oxygen Delivery Method Nasal Cannula Room Air Nasal Cannula Oxygen Flow Rate (L/min) 2 2 02/20/25 21:11 02/20/25 22:17 02/20/25 22:42 Temperature Temperature Source Pulse Rate 67 89 Respiratory Rate 24 H 19 H Respiratory Effort Short of Breath Respiratory Depth Shallow Respiratory Pattern Tachypnea Blood Pressure 115/67 Blood Pressure Mean 83 Blood Pressure Source Pulse Ox 97 96 Oxygen Delivery Method Nasal Cannula Nasal Cannula Oxygen Flow Rate (L/min) 2 2 02/20/25 22:45 02/20/25 22:59 02/20/25 23:00 Temperature 97.8 F Temperature Source Pulse Rate 88 87 88 Respiratory Rate 18 20 H 22 H Respiratory Effort Respiratory Depth Respiratory Pattern Blood Pressure 97/76 116/66 116/66 Blood Pressure Mean 82 82 80 Blood Pressure Source Pulse Ox 96 94 95 Oxygen Delivery Method Oxygen Flow Rate (L/min) 02/20/25 23:15 02/20/25 23:30 02/20/25 23:45 Temperature Temperature Source Pulse Rate 88 82 83 Respiratory Rate 23 H 18 23 H Respiratory Effort Respiratory Depth Respiratory Pattern Blood Pressure 110/64 119/61 117/65 Blood Pressure Mean 76 79 80 Blood Pressure Source Pulse Ox 95 98 95 Oxygen Delivery Method Oxygen Flow Rate (L/min) 02/21/25 00:00 02/21/25 01:30 02/21/25 01:31 Temperature 97.4 F L 97.6 F L Temperature Source Oral Oral Pulse Rate 91 77 Respiratory Rate 22 H 20 H Respiratory Effort Short of Breath Respiratory Depth Normal Respiratory Pattern Blood Pressure 143/72 H 119/71 Blood Pressure Mean 90 87 Blood Pressure Source Monitor Pulse Ox 97 96 Oxygen Delivery Method Nasal Cannula Nasal Cannula Oxygen Flow Rate (L/min) 2 2 Weight Weight: 49 kg Body Mass Index (BMI) 17.9 Physical Exam Const alert, oriented x3 and no apparent distress Constitutional Narrative: Elderly female, thin and somewhat chronically ill-appearing, anxious appearing but otherwise sitting back comfortably in bed, conversing normally, in no acute distress. General Appearance: cooperative and comfortable HEENT normocephalic, head/scalp atraumatic, hearing grossly normal bilaterally, nasal mucous membranes and turbinates normal and moist oral mucous membranes Eyes PERRL, EOMs intact bilaterally and conjunctivae normal Neck full ROM Chest inspection of chest normal Resp normal respiratory effort and no use of accessory muscles Resp Narrative: Breathing comfortably on 2 L nasal cannula at rest. Mildly diminished breath sounds in right lung base and mild upper airway wheezing noted, otherwise good breath sounds bilaterally with no crackles noted. Cardio regular rate, regular rhythm, no murmurs and peripheral pulses 2+ throughout GI normal to inspection, nondistended, normoactive bowel sounds, soft to palpation, non-tender and non-distended Back/Spine normal ROM Extremity normal to inspection, full ROM and no pedal edema Skin no rashes or lesions noted Psych mental status grossly normal Mood & Affect: anxious Results Lab / Micro Data 02/20/25 18:08 02/20/25 18:08 Labs: Laboratory Results - last 24 hr 02/20/25 18:08: WBC 12.2 H, RBC 3.70 L, Hgb 11.2 L, Hct 35.1 L, MCV 94.9, MCH 30.3, MCHC 31.9 L, RDW Std Deviation 54.4 H, RDW Coeff of Osmar 15.8 H, Plt Count 279, MPV 8.5, Immature Gran % (Auto) 0.400, Neut % (Auto) 74.1 H, Lymph % (Auto) 17.9 L, [place] % (Auto) 5.1, Eos % (Auto) 2.3, Baso % (Auto) 0.2, Absolute Neuts (auto) 9.1 H, Absolute Lymphs (auto) 2.19, Nucleated RBC % 0, Sodium 141, Potassium 3.6, Chloride 114 H, Carbon Dioxide 14.8 L, Anion Gap 13, BUN 14, C reatinine 1.49 H, Estim Creat Clear Calc 23.10 L, Est GFR (MDRD) Non-Af 36 L, B UN/Creatinine Ratio 9.1 L, Glucose 96, Calcium 8.9, Troponin T High Sens 18 H D 02/20/25 20:51: Urine Color Red, Urine Clarity Turbid, Urine pH 6.0, Ur Specific [place] 1.020, Urine Protein TNP, Urine Glucose (UA) Normal, Urine Ketones Negative, Urine Occult Blood 250 H, Urine Nitrite Negative, Urine Bilirubin Negative, Urine Urobilinogen Normal, Ur Leukocyte Esterase 100 H, Urine RBC > 100 SEEN, Urine WBC 10-25 SEEN, Ur Squamous Epith Cells 0 SEEN, Urine Bacteria 1+, Urine Mucus 0 SEEN, U Random Total Protein 201.0 H Micro: Microbiology 02/21/25 00:42 Mucosa - Nasopharyngeal Respiratory Panel (PCR) - Final Imaging Radiology Impression Chest X-Ray 02/20/25 20:55 IMPRESSION: Right lower lobe pneumonia. Reading Location: [id number] Assessment & Plan Assessment/Plan (1) Community acquired pneumonia: (2) Dyspnea: PLAN: Plan Patient is a 79-year-old female who presented to [facility] [place] ED on 02/21/2025 with worsening shortness of breath. 1. Concern for community-acquired pneumonia with mild COPD exacerbation and hypoxia, concern for PE with recent small left lower extremity DVT ? Admit under inpatient status to PCU. Known history of COPD and recently required 2 L nasal cannula on exertion on discharge on 02/07. Still her oxygen requirements on this admission but with worsening dyspnea on exertion and some wheezing. Chest x-ray showed concern for new right lower lobe pneumonia. Notably patient was found to have left gastrocnemius DVT on venous study on 02/10. Completed 7 days of Eliquis 10 mg twice daily and is now on Eliquis 5 mg twice daily. Seems less likely that PE would be causing her symptoms but cannot fully rule out. Given her CKD, VQ scan ordered for further evaluation. Respiratory infectious workup ordered. Will treat with IV antibiotics, low-dose IV steroids and scheduled DuoNebs for now. Wean supplemental oxygen as able. Continue home Eliquis. 2. Recent history of right ureteral and renal stones with hydronephrosis s/p ureteral stent placement ? Follows with Dr. Morrison. Most recent procedure done on 02/06 was cystoscopy, laser lithotripsy, stone basket extraction and right ureteral stent exchange. Current plan is for ureteral stent removal on Monday 02/26. UA fairly benign on admit but treating with antibiotics as above. 3. Acute on chronic debility ? PT/OT/case management consulted. Patient with borderline therapy scores during prior admission but was able to go home with home health care on discharge. Chronic medical conditions: ? Mild chronic normocytic anemia: Hemoglobin stable baseline around 11. ? CKD stage IIIb: Creatinine stable at baseline 1.4-1.5. Continue home sodium bicarbonate. ? Depression/anxiety: Continue home bupropion, citalopram and hydroxyzine as needed. ? Hypothyroidism: Continue home Synthroid. DVT prophylaxis: Not indicated, on Eliquis CODE STATUS: Full code, verified Expected disposition: Likely home with home health care, 2 to 3 days Total clinical time spent by myself addressing the patient's medical issues, reviewing all the data, and collaborating with patient's care team: 75 minutes. Charges/Coding Visit Charges Inpatient E&M: 78912 Init Hosp L3
[2025-02-21] MEDS: Levothyroxine 88 MCG Tablet PO (05:54)
[2025-02-21] MEDS: Methylprednisolone Sod Succ 40 MG/ML VIAL 20 MG IV ×3 (05:54→23:13)
[2025-02-21] MEDS: Sodium Bicarbonate 650 MG Tablet PO ×3 (05:54→23:12)
[2025-02-21] MEDS: 0.9% Saline Lock 10 ML Syringe IV ×2 (05:56→23:13)
[2025-02-21] MEDS: Ipratropium/Albuterol Sulfate 3 ML AMPUL.NEB INHALATION ×4 (06:51→20:35)
[2025-02-21 07:24] LABS: Hematocrit 32.6 % (37-47); Hemoglobin 10.6 g/dL (12.0-15.0); Mean Corp Hgb Conc 32.5 g/dL (32-36); Mean Corpuscular Hgb 30.3 pg (27.0-32.0); Mean Corpuscular Volume 93.1 fL (81-99); Mean Platelet Vol. 8.7 fl (6.2-12.0); Platelet Count 264 K/mm3 (150-450); RBC Distribution Width CV 15.9 % (11.6-14.6); RBC Distribution Width SD 53.4 fl (35.1-43.9); White Blood Count 5.5 K/mm3 (4.4-11.0)
[2025-02-21 08:19] LABS: Anion Gap 13 (5-15); BUN 14 mg/dL (4-19); BUN/Creat Ratio 10.4 RATIO (10-20); Calcium,Total 8.6 mg/dL (7.6-11.0); Carbon Dioxide 14.1 mmol/L (21.0-32.0); Chloride 110 mmol/L (98-108); Creatinine, Serum 1.38 mg/dL (0.70-1.20); EST Glomerular Filtration Rate 39 (>60); Estimated Creatinine Clearance 25.57 ml/min (50-250); Glucose 135 mg/dL (70-99); Sodium Level 137 mmol/L (133-145)
[2025-02-21 08:22] LABS: Pro- Brain NATRIURETIC PEPTIDE 548 pg/mL (<=1800); Procalcitonin 0.24 ng/mL (<=0.10)
[2025-02-21] MEDS: Potassium Chloride Oral Tablet 20 MEQ PO (10:45)
[2025-02-21] MEDS: Cholecalciferol (VIT D3) 25 MCG TABLET (1,000 UNITS) PO (10:45)
[2025-02-21] MEDS: Citalopram 40 MG TABLET PO (10:45)
[2025-02-21] MEDS: APIXABAN 5 MG TABLET PO ×2 (10:46→23:12)
[2025-02-21] MEDS: buPROPion (XL) 150 MG TABLET.XL PO (10:46)
[2025-02-21] MEDS: Ceftriaxone 1 GM/50 ML BAG IV (10:54)
[2025-02-21] MEDS: 0.9% Normal Saline (100mL Bag) 100 ML 15 ML IV (10:54)
[2025-02-21] MEDS: Azithromycin 500 MG in 0.9% Normal Saline (250mL Bag) 250 ML 255 MG IV (11:38)
--- NOTE | 2025-02-21 11:44 | CASEMGMT ---
Social Work SW met w/pt in regard to discharge plan. Pt states she plans to return home w/C. Pt states she was managing at home, getting around fine on her own, but her breathing was limiting her. Pt states has [employer], home O2, 2LPM as needed but was needing to wear it all the time. SW explored the idea of pt going to a SNF, as this was considered on her last admission. SW did create in [facility] a list of prison facilities in network w/pt's insurance, in pt's preferred geographic area and complete w/quality and resource use data. Pt does not need this however at this time as she plans to return home w/the resumption of HHC. SW also asked pt about home delivered meals, pt is unsure if she would want this. If SW if following pt at home through [facility], SW will reach out to the w/C to see if she can explore this more w/pt once she returns home. SW/CM remain available for any social service/discharge needs. SW called [facility], pt did see the TRAN Wheeler w/[facility]. SW called [facility], asked her to explore home delivered meals w/pt when she returns home, she will do so. TOMEKA Rand
[2025-02-21] MEDS: hydrOXYzine 10 MG Tablet PO (12:47)
--- NOTE | 2025-02-21 12:59 | CASEMGMT ---
Social Work Daughter Coco is here, asked to speak w/SW. SW met w/pt and daughter Coco in the room in regard to discharge plan. Coco states she saw pt just get into the bathroom and she is very weak. She does not think pt will be able to go home from here. Pt is concerned physician may try to d/c her from the hospital today or tomorrow, and pt may not be ready to go home. Coco is asking about pt going somewhere for rehab. SW explained will text physician about discharge timeline. SW provided to pt and daughter a list from [facility] of prison facilities in network w/pt's insurance, in pt's preferred geographic area and complete w/quality and resource use data. Pt would like to go to TCU, if there are no beds may consider [facility]. SW explained will make referrals once pt has had PT/OT. TRAN texted physician, will continue to follow. TOMEKA Rand
[2025-02-21] MEDS: 0.9% Normal Saline (1000mL) 1,000 ML 75 ML IV (13:25)
--- NOTE | 2025-02-21 13:33 | CASEMGMT ---
Readmission Note: Index: 02/03-02/07/25. Dx: Follow up with Injury Readmission: 02/20/25. Dx: CAP with Mild COPD Exacerbation and Hypoxia From the index admission, the pt refused SNF needs and was discharged home alone with [facility] HHC (SN, PT, OT, and SW) and new home oxygen through [employer] (2L w/exertion). Pt re-presents to [facility] with worsening SOB. This RN CM to pt room at this time. Pt daughter at bedside. Pt states that she was wearing her oxygen regularly and not only with exertion d/t SOB. Pt states that the HH was coming to the house actively. Pt states that she was able to get her new Rx and also take all of her other medications as ordered. Pt states that she did not get a medical alert system set up but states that she does still have the resources provided. Pt states that she followed up with her PCP (Dr. Kang) twice between admissions. Pt does have a f/u appt with Dr. Morrison scheduled for next Monday. Moving forward, the pt plans to attend a SNF for a short-term rehab stay to help her return to her PLOF before returning home. Mimi from [facility] notified. Pt and pt daughter report that they do not feel safe with the pt returning home alone at this time. SW is following for SNF referrals and PT is pending. Pt and pt daughter denies further questions or concerns at this time. Lori ANDERSEN RN, CM
--- NOTE | 2025-02-21 14:05 | CASEMGMT ---
Social Work TCU will most likely take pt, just need to hear back regarding medications. Pt can go anytime, as pt had a qualifying hospital stay within the last 30 days. TOMEKA Rand
--- NOTE | 2025-02-21 14:09 | PN_ITS ---
Subjective Subjective Patient seen and examined. She had no active complaints. She denies feeling short of breath. She is coughing which is productive of clear sputum. She denied any fever or chills, wheezing, nausea or vomiting or any other symptoms. She denied wheezing. Review of systems otherwise negative. Objective Data Objective Data Vital Signs: Vital Signs Temp Pulse Resp BP Pulse Ox O2 Del Method O2 Flow Rate 97.6 F L 91 16 112/72 97 Nasal Cannula 3 02/21/25 13:30 02/21/25 13:30 02/21/25 13:30 02/21/25 13:30 02/21/25 13:30 02/21/25 13:30 02/21/25 13:30 Oxygen Flow Rate (L/min) 3 Oxygen Delivery Method Nasal Cannula Weight: 108 lb 0.424 oz Body Mass Index (BMI) 17.9 Intake & Output: Intake and Output for Last 24 Hours 02/19/25 02/20/25 02/21/25 23:59 23:59 23:59 Intake Total 305 / 305 Balance 305 / 305 Lab / Micro Data 02/21/25 07:00 02/21/25 07:00 Labs: Laboratory Results - last 24 hr 02/20/25 18:08: WBC 12.2 H, RBC 3.70 L, Hgb 11.2 L, Hct 35.1 L, MCV 94.9, MCH 30.3, MCHC 31.9 L, RDW Std Deviation 54.4 H, RDW Coeff of Osmar 15.8 H, Plt Count 279, MPV 8.5, Immature Gran % (Auto) 0.400, Neut % (Auto) 74.1 H, Lymph % (Auto) 17.9 L, [place] % (Auto) 5.1, Eos % (Auto) 2.3, Baso % (Auto) 0.2, Absolute Neuts (auto) 9.1 H, Absolute Lymphs (auto) 2.19, Nucleated RBC % 0, Sodium 141, Potassium 3.6, Chloride 114 H, Carbon Dioxide 14.8 L, Anion Gap 13, BUN 14, C reatinine 1.49 H, Estim Creat Clear Calc 23.10 L, Est GFR (MDRD) Non-Af 36 L, B UN/Creatinine Ratio 9.1 L, Glucose 96, Calcium 8.9, Troponin T High Sens 18 H D 02/20/25 20:51: Urine Color Red, Urine Clarity Turbid, Urine pH 6.0, Ur Specific [place] 1.020, Urine Protein TNP, Urine Glucose (UA) Normal, Urine Ketones Negative, Urine Occult Blood 250 H, Urine Nitrite Negative, Urine Bilirubin Negative, Urine Urobilinogen Normal, Ur Leukocyte Esterase 100 H, Urine RBC > 100 SEEN, Urine WBC 10-25 SEEN, Ur Squamous Epith Cells 0 SEEN, Urine Bacteria 1+, Urine Mucus 0 SEEN, U Random Total Protein 201.0 H 02/21/25 07:00: WBC 5.5, RBC 3.50 L, Hgb 10.6 L, Hct 32.6 L, MCV 93.1, MCH 30.3, MCHC 32.5, RDW Std Deviation 53.4 H, RDW Coeff of [place]sm[place] 15.9 H, Plt Count 264, MPV 8.7, Sodium 137, Potassium 4.0, Chloride 110 H, Carbon Dioxide 14.1 L, Anion Gap 13, BUN 14, Creatinine 1.38 H, Estim Creat Clear Calc 25.57 L, Est GFR (MDRD) Non-Af 39 L, BUN/Creatinine Ratio 10.4, Glucose 135 H, Calcium 8.6, NT pro BNP II 548, Procalcitonin 0.24 H Micro: Microbiology 02/20/25 20:51 Urine, Clean Catch Urine Culture - Preliminary Gram negative usha 02/21/25 10:50 Urine, Clean Catch Legionella Antigen - Final 02/21/25 10:50 Urine, Clean Catch Streptococcus pneumoniae Antigen (M - Final 02/21/25 00:42 Mucosa - Nasopharyngeal Respiratory Panel (PCR) - Final Radiography Diagnostic Testing: Radiology Impression Chest X-Ray 02/20/25 20:55 IMPRESSION: Right lower lobe pneumonia. Reading Location: [id number] Lung Scan-VQ ME 02/21/25 00:29 IMPRESSION: LOW PROBABILITY OF ACUTE PULMONARY EMBOLISM. Reading Location: [id number] Physical Exam Const alert, oriented x3 and no apparent distress Constitutional Narrative: frail General Appearance: cooperative HEENT normocephalic, head/scalp atraumatic, moist oral mucous membranes and oropharynx normal Eyes PERRL and EOMs intact bilaterally Neck no lymphadenopathy and supple Lymph Lymphatic: no lymphadenopathy noted and no lymphedema noted Resp Resp Narrative: diminished breath sounds bibasally, no wheezes or crackles. On 3L of oxygen. Cardio regular rate, regular rhythm, S1 normal heart sound, S2 normal heart sound and no murmurs GI normal to inspection, nondistended, normoactive bowel sounds, soft to palpation, non-tender and non-distended Extremity normal capillary refill, no clubbing, cyanosis or edema and no calf tenderness General Extremity: no tenderness to palpation of joints or extremities Skin General Skin Exam: no breakdown Neuro CN's II-XII intact bilaterally, no focal motor deficits and no sensory deficits noted Motor Exam: strength 5/5 throughout and general weakness Psych thought process normal and cooperative Appearance: appropriate Assessment & Plan Assessment/Plan (1) Community acquired pneumonia: PLAN: Plan #Hypoxia due to COPD exacerbation and community-acquired pneumonia * on 2L of oxygen. Feels his breathing is improving. * CR showed right lower lobe pneumonia * also has a remote history of smoking * breathing treatment with bronchodilators. * titrate oxygen to maintain sats >90% * had a DVT of the LLE recently, and is on eliquis. On admission, had VQ scan ordered to rule out a PE. * on IV solumedrol * breathing treatment with bronchodilators. * titrate oxygen to maintain sats >90% * sputum cultures ordered. Urine for strep and legionella negative. * wbc today is down to 5.5. was 12.2 on admisison. * On ceftriaxone and azithromycin. Will continue. * #Recent history of right ureteral and kidney stones with hydronephrosis * s/p ureteral stent insertion. * to follow up with Dr Morrison on outpatient basis. * #Asymptomatic bacteriuria: * urine cultures growing Gram negative rods. Speciation is pending. * Denies any burning with urination. * previous urine cultures grew Klebsiella which is sensitive to ceftriaxone. #CKD stage II: Creatinine is 1.38, which is around baseline. Will monitor. #Debility and weakness: PT/OT On board. fall precautions. # Depression and anxiety: on bupropion, citalopram and hydroxyzine. #Hypothyroidism: On Synthroid. DVT prophylaxis: not indicated as patient on eliquis. Charges/Coding Visit Charges Inpatient E&M: 82510 Subs Hosp L2
--- NOTE | 2025-02-21 14:41 | CASEMGMT ---
Social Work SW did let Nayeli know in TCU that pt does have a follow up appt w/Dr. Morrison next week. As per Nayeli, Dr. Morrison may be able to see pt in TCU, and TCU can take pt when ready. Pt can go anytime on the weekend as pt already had a qualifying stay within the last 30 days. Pt cannot take Stelora while there however. SW spoke w/pt and daughter Coco, let them both know that pt was accepted in TCU and will likely go on the weekend. SW explained pt had a qualifying stay in the last 30 days so pt can go to TCU anytime she is ready. Both state understanding and are in agreement. SW let pt know that she cannot take Stelora while in TCU, pt is okay w/this. Green sheet placed on chart in anticipation of weekend discharge to TCU. TOMEKA Rand
[2025-02-22] VITALS (8 sets, daily range): BP systolic 112–130; BP diastolic 56–68; PULSE 89–99; RESP 18–20; TEMP 36.6–37; O2SAT 95–98
[2025-02-22 05:38] LABS: Absolute Lymphocyte Count 0.72 X10^3/uL (0.83-4.51); Absolute Neutrophil Count 7.2 X10^3/uL (2.0-7.7); Basophil# 0.01 X10^3/uL; Basophil% 0.1 % (0-1); Hematocrit 27.1 % (37-47); Hemoglobin 8.8 g/dL (12.0-15.0); Lymphocyte # 0.72 X10^3/ul (0.83-4.51); Lymphocyte % 8.8 % (19-41); Mean Corp Hgb Conc 32.5 g/dL (32-36); Mean Corpuscular Hgb 30.3 pg (27.0-32.0); Mean Corpuscular Volume 93.4 fL (81-99); Mean Platelet Vol. 9.1 fl (6.2-12.0); Monocyte% 2.4 % (0-10); NRBC Flagged by Analyzer 0 % (0-5); Neutrophil # 7.15 X10^3/uL (2.7-7.7); Neutrophil % 87.1 % (47-70); Platelet Count 241 K/mm3 (150-450); RBC Distribution Width CV 16.1 % (11.6-14.6); RBC Distribution Width SD 54.8 fl (35.1-43.9); White Blood Count 8.2 K/mm3 (4.4-11.0)
[2025-02-22] MEDS: Sodium Bicarbonate 650 MG Tablet PO ×2 (05:59→14:12)
[2025-02-22] MEDS: Levothyroxine 88 MCG Tablet PO (05:59)
[2025-02-22] MEDS: Methylprednisolone Sod Succ 40 MG/ML VIAL 20 MG IV ×2 (05:59→14:12)
[2025-02-22 06:16] LABS: Anion Gap 10 (5-15); BUN 19 mg/dL (4-19); BUN/Creat Ratio 15.7 RATIO (10-20); Carbon Dioxide 15.5 mmol/L (21.0-32.0); Chloride 115 mmol/L (98-108); EST Glomerular Filtration Rate 46 (>60); Estimated Creatinine Clearance 29.41 ml/min (50-250); Glucose 148 mg/dL (70-99); Potassium 3.9 mmol/L (3.3-5.1); Sodium Level 140 mmol/L (133-145)
[2025-02-22] MEDS: Ipratropium/Albuterol Sulfate 3 ML AMPUL.NEB INHALATION ×2 (06:50→11:19)
[2025-02-22] MEDS: Citalopram 40 MG TABLET PO (12:06)
[2025-02-22] MEDS: Potassium Chloride Oral Tablet 20 MEQ PO (12:06)
[2025-02-22] MEDS: buPROPion (XL) 150 MG TABLET.XL PO (12:07)
[2025-02-22] MEDS: Cholecalciferol (VIT D3) 25 MCG TABLET (1,000 UNITS) PO (12:07)
[2025-02-22] MEDS: Ceftriaxone 1 GM/50 ML BAG IV (12:19)
[2025-02-22] MEDS: Azithromycin 500 MG in 0.9% Normal Saline (250mL Bag) 250 ML 255 MG IV (13:22)
--- NOTE | 2025-02-22 14:07 | TREXTCAR_ITS ---
Diet Diet Order/Speech Therapy: 02/21/25 00:39 Diet: Regular - General Food consistency:: Regular Liquid Consistency:: Regular/Thin Type of Dietary Supplement:: Ensure Plus High Protein Diet Comments: 120 ml vanilla ensure plus high protein tid w/ meals Routine Orders/Code Status Enema Type: Fleetz Enema Frequency: Daily PRN Suppository Type: Dulcolax 10mg Suppository Frequency: Daily PRN DC O2, CPAP, BIPAP needs Home O2 Discharge instructions: Yes Type of respiratory needs?: Oxygen (2) Oxygen frequency: Continuous Continuous oxygen liters per minute: 2 Therapies Weight Bearing: Weight bearing as tolerated Physical Therapy: Eval and Treat Occupational Therapy: Eval and Treat Problem/Diagnosis (1) Community acquired pneumonia: Status: Acute Code(s): J18.9 - Pneumonia, unspecified organism Plan #Hypoxia due to COPD exacerbation and community-acquired pneumonia * on 2L of oxygen. Feels his breathing is improving. * CR showed right lower lobe pneumonia * also has a remote history of smoking * breathing treatment with bronchodilators. * titrate oxygen to maintain sats >90% * had a DVT of the LLE recently, and is on eliquis. On admission, had VQ scan ordered to rule out a PE. * on IV solumedrol * breathing treatment with bronchodilators. * titrate oxygen to maintain sats >90% * sputum cultures ordered. Urine for strep and legionella negative. * wbc today is down to 5.5. was 12.2 on admisison. * On ceftriaxone and azithromycin. Will continue. * #Recent history of right ureteral and kidney stones with hydronephrosis * s/p ureteral stent insertion. * to follow up with Dr Morrison on outpatient basis. * #Asymptomatic bacteriuria: * urine cultures growing Gram negative rods. Speciation is pending. * Denies any burning with urination. * previous urine cultures grew Klebsiella which is sensitive to ceftriaxone. #CKD stage II: Creatinine is 1.38, which is around baseline. Will monitor. #Debility and weakness: PT/OT On board. fall precautions. # Depression and anxiety: on bupropion, citalopram and hydroxyzine. #Hypothyroidism: On Synthroid. DVT prophylaxis: not indicated as patient on eliquis. Allergies/Procedures Done in Hospital Allergies levofloxacin Allergy (Mild, Verified 02/20/25 17:00) Rash ciprofloxacin HCl (From Cipro) Allergy (Verified 02/20/25 17:00) Rash Penicillins Allergy (Verified 02/20/25 17:00) Hives codeine Adverse Reaction (Verified 02/20/25 17:00) makes her feel weird makes her feel weird magnesium citrate Adverse Reaction (Verified 02/20/25 17:00) Nausea NSAIDS (Non-Steroidal Anti-Inflamma Adverse Reaction (Verified 02/20/25 17:00) kidney damage r/t long-term usage advised not to use kidney damage r/t long-term usage advised not to use Procedures: None Type of Care/Length of Stay Estimated LOS: Convalescent Care Less Than 30 days Type of Care Needed: Skilled Rehab Potential: Fair Prognosis: Fair Additional Orders/Day of Discharge Day of Discharge: 02/22/25 Dietary and Speech Recommendations Dietitian Recommendations/Changes: Continue liberal regular diet per pt request Will order 4 oz vanilla ensure plus high protein tid w/ meals for increased nutrition if consumed. Discharge Plan Admission Admit Date/Time: 02/20/25 23:27 Primary Reason for Your Visit: COPD exacerbation Attending Provider: Isamar Rawls Primary Care Provider: Elliot Kang Chi Consulting Providers: Carlitos Snowden Instructions Patient Instructions: COPD Controlled Breathing Dc Discharge Orders/Prescriptions Prescriptions: New prednisone 20 mg tablet 40 mg PO DAILY Qty: 10 0RF cefdinir 300 mg capsule 300 mg PO BID Qty: 10 0RF doxycycline hyclate 100 mg tablet 100 mg PO BID Qty: 10 0RF Continued bupropion HCl [Wellbutrin XL] 150 mg tablet extended release 24 hr 150 mg PO QAM albuterol sulfate [Ventolin HFA] 90 mcg/actuation HFA aerosol inhaler 2 puff inhalation Q4H PRN (Reason: shortness of breath or wheezing) Qty: 18 6RF citalopram 40 MG tablet 40 mg PO DAILY cyanocobalamin (vitamin B-12) 1,000 MCG/ML solution 100 mcg IM Q30D cholecalciferol (vitamin D3) [Vitamin D3] 25 mcg (1,000 unit) Capsule 25 mcg PO DAILY levothyroxine 88 mcg tablet 88 mcg PO DAILY potassium chloride 20 mEq tablet extended release 20 meq PO DAILY ondansetron 4 mg tablet,disintegrating 4 mg PO Q8H PRN (Reason: nausea and vomiting) Qty: 10 0RF Patient Comments: HASNT NEEDED sodium bicarbonate 650 mg tablet 650 mg PO TID Stelara 90 mg/mL syringe 90 mg subcut Q56D hydroxyzine HCl 10 mg Tablet 10 mg PO TID PRN PRN (Reason: Anxiety/Agitation) 7 Days Qty: 21 0RF magnesium oxide 400 mg (241.3 mg magnesium) tablet 400 mg PO DAILY Eliquis 5 mg tablet 5 mg PO BID Referrals / Follow Up: Elliot Kang Chi, MD [Primary Care Provider] - Within 1 Week Disposition Disposition (needs filled in before D/C Order can be placed): [facility]
--- NOTE | 2025-02-22 14:09 | DS.PCM_ITS ---
Providers Date of Admission: 02/20/25 Date of Discharge: 02/22/25 Primary Care Physician: Dr. Elliot Kang MD Reason For Visit: CAP W/MILD COPD EXACERBATION & HYPOXIA Diagnosis Discharge Diagnosis (1) Community acquired pneumonia: Status: Acute Code(s): J18.9 - Pneumonia, unspecified organism Plan #Hypoxia due to COPD exacerbation and community-acquired pneumonia * on 2L of oxygen. Feels his breathing is improving. * CR showed right lower lobe pneumonia * also has a remote history of smoking * breathing treatment with bronchodilators. * titrate oxygen to maintain sats >90% * had a DVT of the LLE recently, and is on eliquis. On admission, had VQ scan ordered to rule out a PE. * on IV solumedrol * breathing treatment with bronchodilators. * titrate oxygen to maintain sats >90% * sputum cultures ordered. Urine for strep and legionella negative. * wbc today is down to 5.5. was 12.2 on admisison. * On ceftriaxone and azithromycin. Will continue. * #Recent history of right ureteral and kidney stones with hydronephrosis * s/p ureteral stent insertion. * to follow up with Dr Morrison on outpatient basis. * #Asymptomatic bacteriuria: * urine cultures growing Gram negative rods. Speciation is pending. * Denies any burning with urination. * previous urine cultures grew Klebsiella which is sensitive to ceftriaxone. #CKD stage II: Creatinine is 1.38, which is around baseline. Will monitor. #Debility and weakness: PT/OT On board. fall precautions. # Depression and anxiety: on bupropion, citalopram and hydroxyzine. #Hypothyroidism: On Synthroid. DVT prophylaxis: not indicated as patient on eliquis. Medications at Discharge Home Medications bupropion HCl 150 mg 24 hr tablet, extended release (Wellbutrin XL) 150 mg PO QAM quit smoking 11/28/18 citalopram 40 mg tablet 40 mg PO DAILY Anxiety 04/24/19 cyanocobalamin (vitamin B-12) 1,000 mcg/mL injection solution 100 mcg IM Q30D Supplement 10/08/19 cholecalciferol (vitamin D3) 25 mcg (1,000 unit) capsule (Vitamin D3) 25 mcg PO DAILY Supplement 10/09/21 levothyroxine 88 mcg tablet 88 mcg PO DAILY 12/14/23 albuterol sulfate 90 mcg/actuation aerosol inhaler (Ventolin HFA) 2 puff inhalation Q4H PRN shortness of breath or wheezing #18 grams 05/24/24 potassium chloride 20 mEq tablet,extended release 20 meq PO DAILY 12/21/24 sodium bicarbonate 650 mg tablet 650 mg PO TID 01/06/25 ondansetron 4 mg disintegrating tablet 4 mg PO Q8H PRN nausea and vomiting #10 tabs 01/16/25 ustekinumab 90 mg/mL subcutaneous syringe (Stelara) 90 mg subcut Q56D 01/31/25 hydroxyzine HCl 10 mg tablet 10 mg PO TID PRN PRN Anxiety/Agitation 7 days #21 tabs 02/07/25 apixaban 5 mg tablet (Eliquis) 5 mg PO BID 02/20/25 magnesium oxide 400 mg (241.3 mg magnesium) tablet 400 mg PO DAILY 02/20/25 cefdinir 300 mg capsule 300 mg PO BID #10 caps 02/22/25 doxycycline hyclate 100 mg tablet 100 mg PO BID #10 tabs 02/22/25 prednisone 20 mg tablet 40 mg (2 x 20 mg) PO DAILY #10 tabs 02/22/25 Hospital Course Operations None Procedures None Summary of Care Provided Minutes Spent on Discharge: 45 Hospital Course: Patient is a 79-year-old female with past medical history as outlined was admitted through the ED on 02/21/2025 with a complaint of worsening shortness of breath. She had recently been admitted from 02/03/2025 to 02/07/2025 for debility due to recent fall at home. She was discharged on 2 L of oxygen at that time on account of COPD. However since her discharge she has been feeling more short of breath and also had a cough with intermittent clear to yellow sputum production. Previous times otherwise negative. On admission in the ED she desaturated to the mid 80s with exertion and required 2 L of oxygen. Chest x-ray showed right lower lobe opacity consistent with pneumonia. She was started on IV ceftriaxone and azithromycin and also placed on IV Solu-Medrol on account of concern for COPD exacerbation. Her breathing did improve and she felt much better. Sputum culture was growing a gram-negative usha at time of discharge with speciation pending. She had recently had a right ureteral and renal stones with hydronephrosis and not had ureteral stent placed on 02/06/2025 by urology. This hospital course was complicated by mild hematuria with no clots associated. I did discuss this with Dr. Juyd DUNCAN who stated that since the stent was in situ, hematuria was not unexpected. Since patient was not passing clots, urology mentioned that she could follow-up on outpatient basis for scheduled removal of the stent on 02/25/2025. Patient's urine cultures grew mixed gram-positive and gram-negative organisms. However urology recommended another urine culture to be obtained prior to her discharge for urology to review this on outpatient basis prior to the stent removal. Patient was discharged to [facility] facility on 11/24/2024. She was discharged on p.o. cefdinir and p.o. doxycycline for 5 day course. She was also discharged on p.o. prednisone 40 mg daily for 5 days on account of the COPD exacerbation. She is to follow-up with her primary care doctor within 1 to 2 weeks and follow-up with urology on 02/25/2025 as scheduled. Patient seen and examined prior to discharge. She did complain of the hematuria as mentioned above. Review of systems otherwise negative. Labs and vitals reviewed. Medication reviewed and reconciled. Hemoglobin was 8.8 on day of discharge. Physical Exam Const alert, oriented x3 and no apparent distress Constitutional Narrative: frail General Appearance: cooperative and comfortable Orientation / Consciousness: awake HEENT normocephalic, head/scalp atraumatic, hearing grossly normal bilaterally, nasal mucous membranes and turbinates normal, moist oral mucous membranes and oropharynx normal Mouth: oral and palatal mucosa normal Eyes PERRL, EOMs intact bilaterally and conjunctivae normal Neck full ROM, no lymphadenopathy and supple Lymph Lymphatic: no lymphadenopathy noted and no lymphedema noted Chest inspection of chest normal Resp normal respiratory effort, no use of accessory muscles and clear to auscultation bilaterally Resp Narrative: diminished breath sounds bibasally, no wheezes or crackles. On 2 L of oxygen. Cardio regular rate, regular rhythm, S1 normal heart sound, S2 normal heart sound, no murmurs and peripheral pulses 2+ throughout GI normal to inspection, nondistended, normoactive bowel sounds, soft to palpation, non-tender and non-distended Back/Spine normal ROM Extremity normal to inspection, full ROM, normal capillary refill, no clubbing, cyanosis or edema, no calf tenderness and no pedal edema General Extremity: no tenderness to palpation of joints or extremities Skin no rashes or lesions noted General Skin Exam: no breakdown Neuro oriented x3, CN's II-XII intact bilaterally, moves all extremities, no focal motor deficits and no sensory deficits noted Motor Exam: strength 5/5 throughout and general weakness Psych mental status grossly normal, thought process normal and cooperative Appearance: appropriate Weight / BMI Weight Weight: 108 lb 0.424 oz Body Mass Index (BMI) 17.9 ABG / Lab / Microbiology Data 02/22/25 04:16 02/22/25 04:16 Laboratory: Laboratory Results - last 24 hr 02/22/25 04:16: WBC 8.2, RBC 2.90 L, Hgb 8.8 L, Hct 27.1 L, MCV 93.4, MCH 30.3, MCHC 32.5, RDW Std Deviation 54.8 H, RDW Coeff of Osmar 16.1 H, Plt Count 241, MPV 9.1, Immature Gran % (Auto) 1.600 H, Neut % (Auto) 87.1 H, Lymph % (Auto) 8.8 L, [place] % (Auto) 2.4, Eos % (Auto) 0.0, Baso % (Auto) 0.1, Absolute Neuts (auto) 7.2, Absolute Lymphs (auto) 0.72 L, Nucleated RBC % 0, Sodium 140, Potassium 3.9, Chloride 115 H, Carbon Dioxide 15.5 L, Anion Gap 10, BUN 19, Creatinine 1.20, Estim Creat Clear Calc 29.41 L, Est GFR (MDRD) Non-Af 46 L, BUN/Creatinine Ratio 15.7, Glucose 148 H, Calcium 8.0 Microbiology: Microbiology 02/21/25 10:50 Sputum, Expectorated/Coughed Gram Stain - Final 02/21/25 10:50 Sputum, Expectorated/Coughed Respiratory Culture - Preliminary Gram negative usha 02/20/25 20:51 Urine, Clean Catch Urine Culture - Final Mixed Gram Pos & Gram Neg Org 02/21/25 10:50 Urine, Clean Catch Legionella Antigen - Final 02/21/25 10:50 Urine, Clean Catch Streptococcus pneumoniae Antigen (M - Final 02/21/25 00:42 Mucosa - Nasopharyngeal Respiratory Panel (PCR) - Final D/C Instructions Discharge Diet: Low fat / Low cholesterol Discharge Activity: Return to Normal Activity Weight Bearing Status: Weight bearing as tolerated Call your doctor if you observe: Fever of 101 or Higher, Shortness of breath, Dizziness, Swelling in the ankles and Chest pain DC O2, CPAP, BIPAP Needs Home O2 Discharge instructions: Yes Type of respiratory needs?: Oxygen (2) Oxygen frequency: Continuous Continuous oxygen liters per minute: 2 DC home with Oxygen: Yes Home O2 MD Review: I have reviewed the oxygen testing, and the patient qualifies for home oxygen equipment and portability. The patient is mobile in the home and the community. Meaningful Use Info Meaningful Use Meaningful Use Diagnoses (Choose all that apply): None applicable Ischemic Stroke Statin Dosing Therapy Reference: STATIN DOSE THERAPY REFERENCE: * Patients > 75 years receive moderate or high dose statin therapy. * Patients 75 years or YOUNGER should receive HIGH intensity statin dose unless contraindicated. You will be required to document reason for non-treatment if statin daily dose does not meet guidelines. HIGH DOSE STATIN THERAPY DAILY Atorvastatin > than or = to 40 mg Rosuvastatin > than or = to 20 mg Amlodipine + Atorvastatin > than or = to 2.5/40 mg Ezetimibe + Simvastatin 10/80 mg Simvastatin 80mg Discharge Plan Admission Admit Date/Time: 02/20/25 23:27 Primary Reason for Your Visit: COPD exacerbation Attending Provider: Isamar Rawls Primary Care Provider: Elliot Kang Chi Consulting Providers: Carlitos Snowden Instructions Patient Instructions: COPD Controlled Breathing Dc Discharge Orders/Prescriptions Prescriptions: New prednisone 20 mg tablet 40 mg PO DAILY Qty: 10 0RF cefdinir 300 mg capsule 300 mg PO BID Qty: 10 0RF doxycycline hyclate 100 mg tablet 100 mg PO BID Qty: 10 0RF Continued bupropion HCl [Wellbutrin XL] 150 mg tablet extended release 24 hr 150 mg PO QAM albuterol sulfate [Ventolin HFA] 90 mcg/actuation HFA aerosol inhaler 2 puff inhalation Q4H PRN (Reason: shortness of breath or wheezing) Qty: 18 6RF citalopram 40 MG tablet 40 mg PO DAILY cyanocobalamin (vitamin B-12) 1,000 MCG/ML solution 100 mcg IM Q30D cholecalciferol (vitamin D3) [Vitamin D3] 25 mcg (1,000 unit) Capsule 25 mcg PO DAILY levothyroxine 88 mcg tablet 88 mcg PO DAILY potassium chloride 20 mEq tablet extended release 20 meq PO DAILY ondansetron 4 mg tablet,disintegrating 4 mg PO Q8H PRN (Reason: nausea and vomiting) Qty: 10 0RF Patient Comments: HASNT NEEDED sodium bicarbonate 650 mg tablet 650 mg PO TID Stelara 90 mg/mL syringe 90 mg subcut Q56D hydroxyzine HCl 10 mg Tablet 10 mg PO TID PRN PRN (Reason: Anxiety/Agitation) 7 Days Qty: 21 0RF magnesium oxide 400 mg (241.3 mg magnesium) tablet 400 mg PO DAILY Eliquis 5 mg tablet 5 mg PO BID Referrals / Follow Up: Elliot Kang Chi, MD [Primary Care Provider] - Within 1 Week Disposition Disposition (needs filled in before D/C Order can be placed): [facility] Charges/Coding Visit Charges Inpatient E&M: 99430 Disch Hosp >30min
[2025-02-22] MEDS: APIXABAN 5 MG TABLET PO (14:12)
[2025-02-22] MEDS: hydrOXYzine 10 MG Tablet PO (15:59)
== END 2025-02-22 17:17 | disposition skilled nursing facility (03) | DRG 190 ==
LOC: ED 23:21 → ICU 02-21 00:35 → PCU 02-21 18:39
PROVIDERS: Admitting Provider Hospitalist; Emergency Provider Emergency Medicine; PCP Family Medicine Geriatric Medicine; Visit Provider Student in an Organized Health Care Education/Training Program
DX: J44.0 Chronic obstructive pulmonary disease with (acute) lower respiratory infection (principal); J18.9 Pneumonia, unspecified organism; N20.2 Calculus of kidney with calculus of ureter; Z99.81 Dependence on supplemental oxygen; J44.1 Chronic obstructive pulmonary disease with (acute) exacerbation; E03.9 Hypothyroidism, unspecified; D64.9 Anemia, unspecified; F32.A Depression, unspecified; N18.2 Chronic kidney disease, stage 2 (mild); F41.9 Anxiety disorder, unspecified; E55.9 Vitamin D deficiency, unspecified; R31.9 Hematuria, unspecified; R82.71 Bacteriuria; R53.81 Other malaise; Z79.01 Long term (current) use of anticoagulants; Z79.890 Hormone replacement therapy; Z79.899 Other long term (current) drug therapy; Z87.891 Personal history of nicotine dependence; Z86.718 Personal history of other venous thrombosis and embolism; Z90.2 Acquired absence of lung [part of]
CPT/HCPCS: 36415; 71045; 74176; 78582; 80048; 80053; 81001; 82306; 83880; 84145; 84156; 84443; 84484; 85025; 85027; 87070; 87077; 87086; 87088; 87186; 87205; 87449; 87633; 93005; 94640; 94668; 94760; 97162; 97166; 97535; 99283; A9540; A9567; A4216

== ENCOUNTER 2025-02-22 17:20 | Inpatient (IN) | payer MEDICARE, OTHER, SELFPAY ==
[2025-02-22 17:30] VITALS: BP 141/74; PULSE 94; RESP 18; TEMP 36.8; O2SAT 95; BMI 20.9
--- NOTE | 2025-02-22 18:49 | HP.PCM_ITS ---
[facility] - General General Date of Admission: 02/22/25 Date of Service: 02/24/25 Chief Complaint: Here for rehabilitation. HPI Narrative JOSE DE JESUS GOLD, is a 79 Female who presents with followin02/20/2025 [facility] ED shortness of breath. Increased shortness of breath, recent hospitalization 2 weeks ago, on oxygen. Oxygen 2 liters per nasal cannula, able to walk 3 steps, develops severe dyspnea on exertion. Cough with yellow mucous. Duoneb, Solu-medrol given. UA c/w UTI, urine culture sent. Chest X-ray showed right lower lobe pneumonia. 02/20/2025 Admit [facility]. IV antibiotics, IV steroids, Nebs for pneumonia/copd exacerbation/uti. Wean oxygen for acute respiratory failure with hypoxia. Eliquis 5g po bid for left lower extremity dvt. VQ scan negative for pulmonary embolism. Dr. Morrison right ureteral stent removal 02/26/2025. PT/OT/CM. 02/21/2025 Cough with clear sputum, oxygen 2 liters per nasal cannula. Urinary antigen for strep negative, legionella negative. WBC improved fro 12.2 to 5.5. Ceftriaxone, Azithromycin, Solu-medrol, nebs, right lower lobe pneumonia/copd exacerbation. Ceftriaxone, urine culture gnr for uti. 02/22/2025 Admit to [facility] with debility, here for rehabilitation, strengthening, prior to discharge home alone. [facility] Medical History Kidney stone Hypothyroidism Depression Ureteral stent present 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 calculus halfway current use of immunosuppressive drug Crohn's disease Diarrhea Diarrhea Wears hearing aid Wears dentures Cancer Anxiety Thyroid disease Walker as ambulation aid Arthritis Easy bruising TIA (transient ischemic attack) Former smoker COPD (chronic obstructive pulmonary disease) Shortness of breath on exertion History of pain when walking History of echocardiogram History of stress test History of fracture of patella Stage 3b chronic kidney disease (CKD) Osteoporosis Urinary retention Rectal cancer Hydronephrosis Lung cancer Rectal cancer Decreased appetite Abdominal bloating COPD (chronic obstructive pulmonary disease) TIA (transient ischemic attack) Nicotine abuse Depression Anxiety Hypothyroidism COPD exacerbation Chronic bronchitis 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 calculus Hydronephrosis, right Filling defect on imaging study History of rectal cancer Home Medications ?Medication ?Instructions ?Recorded ?Last Taken ?Type bupropion HCl 150 mg 24 hr tablet, 150 mg PO QAM quit smoking 11/28/18 02/22/25 History extended release (Wellbutrin XL) citalopram 40 mg tablet 40 mg PO DAILY Anxiety 04/2402/22/25 History cyanocobalamin (vitamin B-12) 100 mcg IM Q30D Suppleme nt 10/08/19 01/22/25 History 1,000 mcg/mL injection solution cholecalciferol (vitamin D3) 25 25 mcg PO DAILY Supple ment 10/09/21 02/22/25 History mcg (1,000 unit) capsule (Vitamin D3) levothyroxine 88 mcg tablet 88 mcg PO DAILY thyroid 02/22/25 History albuterol sulfate 90 mcg/actuation 2 puff inhalation Q 4H PRN 05/24/24 01/16/25 Rx aerosol inhaler (Ventolin HFA) shortness of breath or wheezing #18 grams potassium chloride 20 mEq 20 meq PO DAILY supplement 0 12/21/24 02/22/25 History tablet,extended release sodium bicarbonate 650 mg tablet 650 mg PO TID supplem ent 01/06/25 02/22/25 History ondansetron 4 mg disintegrating 4 mg PO Q8H PRN nausea and 01/16/25 Unknown Rx tablet vomiting #10 tabs ustekinumab 90 mg/mL subcutaneous 90 mg subcut Q56D un known 01/31/25 01/30/25 History syringe (Stelara) hydroxyzine HCl 10 mg tablet 10 mg PO TID PRN PRN 04/02/2802/21/25 Rx Anxiety/Agitation 7 days #21 tabs apixaban 5 mg tablet (Eliquis) 5 mg PO BID blood thinn er 02/20/25 02/21/25 History magnesium oxide 400 mg (241.3 mg 400 mg PO DAILY suppl ement 02/20/25 Unknown History magnesium) tablet cefdinir 300 mg capsule 300 mg PO BID pneumonia #10 caps 02/22/25 02/22/25 Rx doxycycline hyclate 100 mg tablet 100 mg PO BID antibi otic #10 tabs 02/22/25 Unknown Rx prednisone 20 mg tablet 40 mg (2 x 20 mg) PO DAILY s teroid 02/22/25 Unknown Rx #10 tabs Allergy/AdvReac Type Severity Reaction Status Date / Time levofloxacin Allergy Mild Rash Verified 02/20/25 17:00 ciprofloxacin HCl (From Allergy Rash Verified 02/20/25 17:00 Cipro) Penicillins Allergy Hives Verified 02/20/25 17:00 codeine AdvReac makes her Verified 02/20/25 17:00 feel weird magnesium citrate AdvReac Nausea Verified 02/20/25 17:00 NSAIDS (Non-Steroidal AdvReac kidney Verified 02/20/25 17:00 Anti-Inflamma damage r/t long-term usage advised not to use Family History Father Heart disease Mother Heart disease Sister Heart disease Diabetes Other Crohn's disease Surgical History S/P ureteral stent placement S/P lobectomy of lung History of cystoscopy History of colonoscopy (~10/2019) History of colostomy History of cholecystectomy History of bowel resection History of hysterectomy History of delivery Social History household members: none Smoking Status: Former smoker Tobacco: How many years used: 53 how long ago did patient quit smoking: Quit 2-5 years prior. second hand exposure: No alcohol intake: never substance use type: does not use caffeine: No what type of physical activity do you participate in: none ROS Constitutional Constitutional: Reports weakness; Denies chills, fever(s) or weight gain ENT HEENT: Denies headache(s), nasal congestion or nasal discharge Cardiovascular Cardiovascular: Denies chest pain or palpitations Respiratory/Chest Respiratory/Chest: Denies cough, excessive phlegm production or shortness of breath with exertion Gastrointestinal Gastrointestinal: Denies abdominal pain, nausea or vomiting Genitourinary Genitourinary: Denies dysuria Musculoskeletal Musculoskeletal: Denies joint pain or joint swelling Integumentary Integumentary: Denies rash or wounds Neurologic Neurologic: Denies focal weakness, numbness or tingling Psychiatric Psychiatric: Denies anxiety, auditory hallucinations, depression, homicidal ideation or suicidal ideation Vital Signs Vital Signs Vital Signs: 02/22/25 17:30 02/22/25 17:30 Temperature 98.3 F Temperature Source Temporal Pulse Rate 94 Pulse Rhythm Regular Pulse Strength Normal (2+) Respiratory Rate 18 Respiratory Effort Short of Breath Respiratory Depth Normal Respiratory Pattern Tachypnea Blood Pressure 141/74 H Blood Pressure Mean 96 Blood Pressure Source Monitor Pulse Ox 95 Oxygen Delivery Method Nasal Cannula Nasal Cannula Oxygen Flow Rate (L/min) 3 3 Weight Weight: 50.258 kg Body Mass Index (BMI) 20.9 Physical Exam Const alert General Appearance: cooperative HEENT normocephalic Eyes PERRL and EOMs intact bilaterally Neck supple, no JVD and no carotid bruits Resp normal respiratory effort and normal air movement Auscultation: rhonchi and wheezes Cardio regular rate and regular rhythm GI normal to inspection, nondistended, normoactive bowel sounds, non-tender and non-distended Extremity normal capillary refill General Extremity: Negative for edema Skin no rashes or lesions noted General Skin Exam: no breakdown Psych affect normal Appearance: appropriate Results Lab / Micro Data 02/23/25 05:05 02/23/25 05:05 Assessment & Plan Assessment/Plan (1) Debility: (2) Acute respiratory failure with hypoxia: (3) Pneumonia: (4) UTI (urinary tract infection): (5) 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 calculus: (6) Left leg DVT: (7) Kidney stones: (8) Depression: (9) Hypothyroidism: (10) Anxiety: (11) Hypokalemia: (12) Metabolic acidosis: (13) COPD (chronic obstructive pulmonary disease): PLAN: Plan 79 year old female with below past medical history hospitalized for acute respiratory failure with hypoxia 2/2 pneumonia/copd exacerbation, complicated by urinary tract infection, admitted to TCU with debility, here for rehabilitation, strengthening, prior to discharge home alone. * Debility - PT/OT. * Pain - Tylenol 1000mg q6 prn pain (1-10). * Bowel - senna/colace 1 tablet bid prn, Magnesium citrate 300mL daily prn. * Adult immunization - Administer pneumonia vaccine, covid vaccine, flu vaccine as appropriate. * DVT prophylaxis - Eliquis. * COPD - Albuterol 2 puffs q4h prn, Prednisone taper. * DVT LLE - Eliquis 5mg bid thru 05/12/2025. * Depression - Celexa 40mg daily, Bupropion XL 150mg qam, stable chronic group home use, gdr not recommended. * Urinary tract infection - Cefdinir 300mg bid thru 02/27/2025, urine culture pending. * Vitamin D deficiency - D3 2mcg daily. * Vitamin B12 deficiency - B12 1000mcg im qmonth. * Pneumonia - Cefdinir 300g bid thru 02/27/2025, Doxycycline 100mg bid thru 02/27/2025. * Pruritus - Hydroxyzine 10mg tid prn. * Hypothyroidism - Levothyroxine 88mcg daily. * Hypomagnesemia - Magnesium oxide 400mg daily. * Skin irritation - Calmoseptine topical bid. * Nausea - Zofran odt 4mg q8 prn. * Hypokalemia - KCL 20meq daily. * Metabolic acidosis - Sodium Bicarb 650mg tid.
[2025-02-22] MEDS: Doxycycline 100 MG CAPSULE PO (21:08)
[2025-02-22] MEDS: Sodium Bicarbonate 650 MG Tablet PO (21:08)
[2025-02-22] MEDS: Cefdinir 300 MG Capsule PO (21:08)
[2025-02-22] MEDS: Menthol/Lanolin/Calamine/Znox 113 GM Tube 1 APPLIC TOPICAL (21:13)
[2025-02-22 23:10] LABS: Mucous, Urine 0 SEEN /hpf (<or=2+); Squamous Epithelial Cells - UA 0 SEEN /hpf (5-10)
[2025-02-22 23:14] LABS: Color, Urine Red (Yellow); Glucose, Dipstick Normal (Normal); Ketone-Dipstick Negative (Negative); Leukocyte Esterase-Dipstick 100 /ul (Negative); Nitrite-Dipstick Negative (Negative); Occult Blood-Urine 250 /ul (Negative); Protein-Dipstick 100 mg/dl (Negative); Specific Gravity, Urine 1.015 (1.002-1.030); Urine Bilirubin Dipstick Negative (Negative); Urine Clarity Cloudy (Clear); Urine Urobilinogen Normal (Normal); Urine pH 6.5 (5.0 - 8.0)
[2025-02-22 23:19] LABS: Red Blood Cells-Urine > 100 SEEN /hpf (0-5)
[2025-02-22 23:21] LABS: Bacteria RARE /hpf (None Seen); White Blood Cells 10-25 SEEN /hpf (0-5)
--- NOTE | 2025-02-22 23:22 | NURSING ---
Patient noted with continued hematuria. Urine bright red, no odor noted. Notified Dr. Kang, new orders received for UA, C&S and to hold Eliquis at this time. Dr. Morrison to be notified Monday of patient's admit to this unit and update her on urine.
--- NOTE | 2025-02-23 02:15 | NURSING ---
Daughter, Jessica, updated with new orders.
[2025-02-23 05:29] LABS: Absolute Lymphocyte Count 1.99 X10^3/uL (0.83-4.51); Absolute Neutrophil Count 6.2 X10^3/uL (2.0-7.7); Basophil# 0.01 X10^3/uL; Basophil% 0.1 % (0-1); Eosinophil# 0.01 X10^3/uL; Eosinophils% 0.1 % (0-5); Hematocrit 30.1 % (37-47); Hemoglobin 9.5 g/dL (12.0-15.0); Lymphocyte # 1.99 X10^3/ul (0.83-4.51); Mean Corp Hgb Conc 31.6 g/dL (32-36); Mean Corpuscular Hgb 30.1 pg (27.0-32.0); Mean Corpuscular Volume 95.3 fL (81-99); Mean Platelet Vol. 8.8 fl (6.2-12.0); Monocyte# 0.77 X10^3/uL; Monocyte% 8.5 % (0-10); NRBC Flagged by Analyzer 0 % (0-5); Neutrophil # 6.19 X10^3/uL (2.7-7.7); Neutrophil % 68.4 % (47-70); Platelet Count 229 K/mm3 (150-450); RBC Distribution Width CV 16.7 % (11.6-14.6); RBC Distribution Width SD 58.7 fl (35.1-43.9); Red Blood Count 3.16 M/mm3 (4.2-5.4); White Blood Count 9.1 K/mm3 (4.4-11.0)
[2025-02-23] MEDS: Levothyroxine 88 MCG Tablet PO (05:41)
[2025-02-23] MEDS: Sodium Bicarbonate 650 MG Tablet PO ×3 (05:41→21:35)
[2025-02-23 05:48] VITALS: PULSE 79; RESP 18; O2SAT 98
[2025-02-23 07:13] LABS: Anion Gap 10 (5-15); BUN 20 mg/dL (4-19); BUN/Creat Ratio 19.2 RATIO (10-20); Calcium,Total 8.3 mg/dL (7.6-11.0); Carbon Dioxide 17.2 mmol/L (21.0-32.0); Chloride 116 mmol/L (98-108); Creatinine, Serum 1.02 mg/dL (0.70-1.20); EST Glomerular Filtration Rate 56 (>60); Estimated Creatinine Clearance 33.75 ml/min (50-250); Glucose 87 mg/dL (70-99); Potassium 3.8 mmol/L (3.3-5.1); Sodium Level 142 mmol/L (133-145)
[2025-02-23] MEDS: Potassium Chloride Oral Tablet 20 MEQ PO (09:50)
[2025-02-23] MEDS: Magnesium Oxide 400 MG Tablet PO (09:50)
[2025-02-23] MEDS: predniSONE 20 MG Tablet 40 MG PO (09:52)
[2025-02-23] MEDS: Doxycycline 100 MG CAPSULE PO ×2 (09:53→21:35)
[2025-02-23] MEDS: Cefdinir 300 MG Capsule PO ×2 (09:53→21:34)
[2025-02-23] MEDS: Cholecalciferol (VIT D3) 25 MCG TABLET (1,000 UNITS) PO (09:54)
[2025-02-23] MEDS: buPROPion (XL) 150 MG TABLET.XL PO (09:54)
[2025-02-23] MEDS: Citalopram 40 MG TABLET PO (09:54)
[2025-02-23] MEDS: hydrOXYzine 10 MG Tablet PO (09:55)
[2025-02-23] MEDS: Menthol/Lanolin/Calamine/Znox 113 GM Tube 1 APPLIC TOPICAL ×2 (09:58→21:37)
[2025-02-23] MEDS: Tuberculin,Purif.prot.deriv. 50 TU/ML Vial 0.1 ML ID (10:03)
[2025-02-23 15:27] VITALS: BP 122/65; PULSE 67; RESP 18; TEMP 36.9; O2SAT 98
[2025-02-23 16:37] VITALS: PULSE 77; RESP 20
[2025-02-23] MEDS: Ipratropium/Albuterol Sulfate 3 ML AMPUL.NEB INHALATION ×2 (16:38→19:23)
[2025-02-23 19:23] VITALS: PULSE 86; RESP 20; O2SAT 97
--- NOTE | 2025-02-24 00:42 | NURSING ---
Urine continues to have blood in it, but appears to be improving. Waiting for C&S results. Will continue to monitor.
[2025-02-24] MEDS: Levothyroxine 88 MCG Tablet PO (05:24)
[2025-02-24] MEDS: Sodium Bicarbonate 650 MG Tablet PO ×3 (05:24→21:13)
[2025-02-24] MEDS: Ipratropium/Albuterol Sulfate 3 ML AMPUL.NEB INHALATION ×3 (07:03→19:30)
[2025-02-24 07:32] VITALS: PULSE 84; RESP 18; O2SAT 99
[2025-02-24] MEDS: Potassium Chloride Oral Tablet 20 MEQ PO (08:36)
[2025-02-24] MEDS: Magnesium Oxide 400 MG Tablet PO (08:37)
[2025-02-24] MEDS: predniSONE 20 MG Tablet 40 MG PO (08:37)
[2025-02-24] MEDS: Citalopram 40 MG TABLET PO (08:38)
[2025-02-24] MEDS: Cholecalciferol (VIT D3) 25 MCG TABLET (1,000 UNITS) PO (08:38)
[2025-02-24] MEDS: Cefdinir 300 MG Capsule PO ×2 (08:38→21:13)
[2025-02-24] MEDS: buPROPion (XL) 150 MG TABLET.XL PO (08:38)
[2025-02-24] MEDS: Doxycycline 100 MG CAPSULE PO ×2 (08:39→21:13)
[2025-02-24] MEDS: APIXABAN 5 MG TABLET PO (08:39)
[2025-02-24] MEDS: Menthol/Lanolin/Calamine/Znox 113 GM Tube 1 APPLIC TOPICAL ×2 (08:43→21:15)
[2025-02-24] MEDS: hydrOXYzine 10 MG Tablet PO (09:05)
--- NOTE | 2025-02-24 09:13 | NURSING ---
Manager Nuclear Note; Activity Asset: Olga Bowman has returned to TCU for more therapy and remains independent in her choice of daily activities w/reminders. She has her smartphone, reads, watches tv, enjoys word puzzles, bingo and small group activities. Her family will bring in items she may need or want. She welcomes visits from the harbor police launch commander and therapy dog when available. Staff will encourage social activities, remind her of weekly activities and respect her right to say no.
[2025-02-24 10:00] VITALS: PULSE 80; RESP 16; O2SAT 99
--- NOTE | 2025-02-24 11:06 | NURSING ---
Returned from appt w/ Theresa Hernandez ICE SKATER, orders for mucinex 600mg BID.
--- NOTE | 2025-02-24 11:21 | PCM.PN.DRR ---
Documented by User: Carrol Foss 02/24/25 11:50 TCU RX Drug Regimen Review Subjective/Objective Subjective/Objective Subjective: TCU Admission. 79 YOF presented to the ER with shortness of breath. Hospitalized for acute respiratory failure with hypoxia 2/2 pneumonia/copd exacerbation, complicated by urinary tract infection. Admitted to TCU with debility for strengthening and rehabilitation. Objective: Allergies levofloxacin Allergy (Mild, Verified 02/24/25 10:14) Rash ciprofloxacin HCl (From Cipro) Allergy (Verified 02/24/25 10:14) Rash Penicillins Allergy (Verified 02/24/25 10:14) Hives codeine Adverse Reaction (Verified 02/24/25 10:14) makes her feel weird makes her feel weird magnesium citrate Adverse Reaction (Verified 02/24/25 10:14) Nausea NSAIDS (Non-Steroidal Anti-Inflamma Adverse Reaction (Verified 02/24/25 10:14) kidney damage r/t long-term usage advised not to use kidney damage r/t long-term usage advised not to use Current Medications Generic Name Dose Route Start Last Admin Trade Name Freq PRN Reason Stop Dose Admin Albuterol Sulfate 2.5 mg 02/22/25 20:45 Albuterol 2.5 Mg/3 Ml Vial.Neb. INHALATION Q4H PRN PRN SOB &/OR WHEEZING Albuterol/Ipratropium 3 ml 02/22/25 21:00 02/24/25 07:03 Ipratropium/Albuterol Sulfate 3 Ml Ampul.Neb INHALATION 3 ml Q4HWA.RT PRIMO Administration Apixaban 5 mg 02/24/25 10:00 02/24/25 08:39 Apixaban 5 Mg Tablet PO 05/12/25 23:59 5 mg BID PRIMO Administration Bupropion HCl 150 mg 02/23/25 10:00 02/24/25 08:38 Bupropion (Xl) 150 Mg Tablet.Xl PO 150 mg QAM PRIMO Administration Calamine/Phenol 1 applic 02/22/25 22:00 02/24/25 08:43 Menthol/Lanolin/Calamine/Znox 113 Gm Tube TOPICAL 1 applic BID PRIMO Administration Protocol Cefdinir 300 mg 02/22/25 22:00 02/24/25 08:38 Cefdinir 300 Mg Capsule PO 02/27/25 10:01 300 mg BID PRIMO Administration Cholecalciferol 25 mcg 02/23/25 10:00 02/24/25 08:38 Cholecalciferol (Vit D3) 25 Mcg Tablet (1,000 Units) PO 25 mcg DAILY PRIMO Administration Citalopram Hydrobromide 40 mg 02/23/25 10:00 02/24/25 08:38 Citalopram 40 Mg Tablet PO 40 mg DAILY PRIMO Administration Cyanocobalamin 1,000 mcg 03/20/25 10:00 Cyanocobalamin (B12) 1,000 Mcg/Ml Vial IM Q30D [facility] Doxycycline Monohydrate 100 mg 02/22/25 22:00 02/24/25 08:39 Doxycycline 100 Mg Capsule PO 02/27/25 10:01 100 mg BID [facility] Administration Guaifenesin 600 mg 02/24/25 22:00 Guaifenesin 600 Mg Tablet PO BID [facility] Hydroxyzine HCl 10 mg 02/22/25 17:39 02/24/25 09:05 Hydroxyzine 10 Mg Tablet PO 10 mg TID PRN PRN Administration Anxiety/Agitation Levothyroxine Sodium 88 mcg 02/23/25 06:00 02/24/25 05:24 Levothyroxine 88 Mcg Tablet PO 88 mcg DAILY@0600 [facility] Administration Magnesium Citrate 300 ml 02/22/25 19:11 Magnesium Citrate 300 Ml PO DAILY PRN Constipation Magnesium Oxide 400 mg 02/23/25 08:00 02/24/25 08:37 Magnesium Oxide 400 Mg Tablet PO 400 mg DAILYCM [facility] Administration Ondansetron HCl 4 mg 02/22/25 17:39 Ondansetron Odt 4 Mg Tablet PO Q8H PRN nausea and vomiting Potassium Chloride 20 meq 02/23/25 08:00 02/24/25 08:36 Potassium Chloride Oral Tablet 20 Meq PO 20 meq DAILYCM [facility] Administration Prednisone 40 mg 02/23/25 08:00 02/24/25 08:37 Prednisone 20 Mg Tablet PO 03/04/25 08:01 40 mg DAILYCM [facility] Administration Senna/Docusate Sodium 1 tablet 02/22/25 19:11 Senna/Docusate Sodium 1 Tablet PO BID PRN PRN CONSTIPATION Sodium Bicarbonate 650 mg 02/22/25 22:00 02/24/25 05:24 Sodium Bicarbonate 650 Mg Tablet PO 650 mg TID [facility] Administration Sodium Chloride 10 - 40 ml 02/22/25 17:38 0.9% Saline Lock 10 Ml Syringe IV UD PRN SALINE FLUSH Tuberculin PPD 0.1 ml 03/02/25 10:00 Tuberculin,Purif.Prot.Deriv. 50 Tu/Ml Vial ID 03/02/25 10:01 X1 ONE Problem List Left leg DVT (Acute) Pneumonia (Acute) Acute respiratory failure with hypoxia (Acute) UTI (urinary tract infection) (Acute) Metabolic acidosis (Acute) Hypokalemia (Acute) Hypothyroidism (Acute) Depression (Acute) 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 calculus (Acute) Anxiety (Chronic) COPD (chronic obstructive pulmonary disease) (Chronic) Vital Signs Temp Pulse Resp BP Pulse Ox O2 Del Method O2 Flow Rate 98.5 F 80 16 122/65 H 99 Nasal Cannula 3 02/23/25 15:27 02/24/25 10:00 02/24/25 10:00 02/23/25 15:27 02/24/25 10:00 02/24/25 10:00 02/24/25 10:00 Oxygen Flow Rate (L/min) 3 Oxygen Delivery Method Nasal Cannula Weight: 50.258 kg Body Mass Index (BMI) 20.9 Sodium 142 mmol/L (133-145) 02/23/25 05:05 Potassium 3.8 mmol/L (3.3-5.1) 02/23/25 05:05 Chloride 116 mmol/L (98-108) H 02/23/25 05:05 Carbon Dioxide 17.2 mmol/L (21.0-32.0) L 02/23/25 05:05 Anion Gap 10 (5-15) 02/23/25 05:05 BUN 20 mg/dL (4-19) H 02/23/25 05:05 Creatinine 1.02 mg/dL (0.70-1.20) 02/23/25 05:05 Est GFR (MDRD) Non-Af 56 (>60) L 02/23/25 05:05 BUN/Creatinine Ratio 19.2 RATIO (10-20) 02/23/25 05:05 Glucose 87 mg/dL (70-99) 02/23/25 05:05 Assessment/Plan: 1. Pain: acetaminophen 1000mg PO Q6H PRN pain 1-10. No doses given so far. Please continue to monitor for increased pain and PRN usage. 2. Bowel: senna/docusate 1T PO BID PRN constipation and magnesium citrate 300mL PO daily PRN constipation. No PRN doses given at this time. Please continue to monitor for constipation and PRN usage. Last documented bowel movement was 02/22/25. 3. LLE DVT: apixaban 5mg PO BID thru 05/12/25. Please continue to monitor for S/S of bleeding/DVT and hemoglobin (last 9.5g/dL). 4. UTI/pneumonia: cefdinir 300mg PO BID thru 02/27/25 and doxycycline 100mg PO BID thru 02/27/25. Please continue to monitor for S/S of infection, diarrhea, stool discoloration, renal function and upset stomach. 5. COPD: ipratropium/albuterol 3mL inhalation Q4HWA.RT, albuterol 2.5mg inhalation Q4H PRN SOB/wheezing, guaifenesin 600mg PO BID and prednisone 40mg PO dailycm thru 03/04/25. Please continue to monitor for S/S of infection, glucose (last 87mg/dL), agitation, trouble sleeping, upset stomach, HR (last 77), PRN usage. No PRN doses given at this time. 6. Hypothyroidism: levothyroxine 88mcg PO daily. Please continue to monitor TSH (last WNL 02/19/25) and S/S of hypo/hyperthyroidism. 7. Hypokalemia: potassium chloride 20mEq Po daily. Please continue to monitor potassium (last 3.8mmol/L). 8. Hypomagnesemia: magnesium oxide 400mg PO daily. Please continue to monitor magnesium (last 1.3mg/dL 02/10/25). 9. Metabolic acidosis: sodium bicarbonate 650mg PO TID. Please continue to monitor CO2 (last 17.2mmol/L 02/23/25). 10. Nausea: ondansetron ODT 4mg PO Q8H PRN nausea/vomiting. No PRN doses have been given. Please continue to monitor for N/V and PRN usage. 11. Vitamin D and B12 deficiencies: cyanocobalamin 1000mcg IM monthly and cholecalciferol 25mcg PO daily. Please consider ordering a B12 level as the last is from 2018. Thanks. Please continue to monitor vitamin D (last 02/19/25). 12. Skin irritation: Calmoseptine topical BID. Please continue to monitor. Assessment/Plan for indications treated with psychotropic medications: 1. Depression: citalopram 40mg PO daily and bupropion XL 150mg PO daily. Please see physician note regarding GDR. Monitor for efficacy including resident symptoms, behaviors and indications of distress. Monitor for tolerability including mental status, cognition, excessive sleepiness, withdrawal or decreased participation in activities and decline in physical functioning. Maximize use of nonpharmacologic/behavioral interventions to facilitate dose reduction or discontinuation as appropriate. Please evaluate the appropriateness of GDR unless contraindicated. If appropriate, GDR should be attempted in 2 separate quarters within the first year of use or admission to TCU. If GDR attempted, monitor resident symptoms/behaviors. Monitor for diarrhea, nausea, headache, anxiety or drowsiness, suicidal thoughts or behaviors (Boxed Warning), symptoms of bleeding, symptoms of serotonin syndrome (including agitation, confusion, hyperreflexia, rigidity/myoclonus, tremor, tachycardia, tachypnea), sodium levels (last Na = 142mmol/L). Monitor for anxiety, agitation and insomnia, seizure activity, nausea, and body weight, headache, suicidal thoughts or behaviors (Boxed Warning). Monitor blood pressure and HR. BP range since admission = 141-108/56-78; HR range since admission = 77-103. Medication is renally eliminated (bupropion), monitor renal function periodically. Scr = 1.02mg/dL 02/23/25. 2. Anxiety/agitation: hydroxyzine 10mg PO TID PRN anxiety/agitation. Two doses given so far. Monitor prn usage and efficacy of prn doses including resident symptoms, behaviors and indications of distress. Monitor for tolerability including mental status, cognition, excessive sleepiness, withdrawal or decreased participation in activities and decline in physical functioning. Maximize use of nonpharmacologic/behavior interventions to minimize use of prn medication. Prn psychotropic order must be renewed at 14 days per policy. Evaluate continued need for medication, effect of prn medication on resident?s symptoms/distress and tolerability to determine the appropriateness of order renewal. Medical chart and medication regimen reviewed. The following medication irregularities or issues were identified: 1. Cyanocobalamin 1000mcg IM monthly. Please consider ordering a B12 level as the last is from 2018. Thanks. Date Date of Note: 04/21/25 Documented by User: Dr. Elliot Kang MD 02/24/25 13:31 TCU RX Drug Regimen Review Provider Comments Provider responsibility Provider Comments to Recommendations by Pharmacy Agree
--- NOTE | 2025-02-24 13:25 | NURSING ---
Dr. Jorge Luis [facility] unit, updated on hematuria, order to DC eliquis.
--- NOTE | 2025-02-24 15:47 | CHAPLAIN ---
Type of Pastoral Visit _x__ Initial Visit ___ Follow-up Visit ___ On-call Visit ___ General Patient Visit ___ Spiritual Assessment ___ Family Conference ___ Bereavement ___ Rapid Response ___ Code Blue ___ Other (describe below) Pastoral Care Referral From _x__ Patient ___ Family ___ Nurse ___ Physician ___ Finish Specialist ___ Wedding Consultant ___ Other (describe below) Sacrament/Intervention _x__ Active listening ___ Anointing ___ Restorationist ___ Bereavement ___ Communion _x__ Kae exploration ___ ___ Life review _x__ Prayer ___ Reconciliation ___ Sacrament of Sick ___ Supportive presence ___ Wedding ___ Other (describe below) Pastoral Comments patient is welcoming and some background information is given; pt had figure clerk stop by already today and she feels special to have both come to see me today; talk continued about of the [place] as patient is [employer] and is impacted by that fact; pt has family in the area that helps her as she continues to live alone; pt is hopeful about recovery and getting back home; pt welcomes prayer and presence; a friend had come to visit at this time
[2025-02-24 15:55] VITALS: PULSE 83; RESP 18
[2025-02-24 16:00] VITALS: BP 143/63; PULSE 85; RESP 17; TEMP 36.8; O2SAT 99
[2025-02-24 19:30] VITALS: PULSE 79; RESP 18; O2SAT 98
[2025-02-24] MEDS: guaiFENesin 600 MG Tablet PO (21:13)
[2025-02-24] MEDS: 0.9% Saline Lock 10 ML Syringe IV (21:18)
[2025-02-25] VITALS (9 sets, daily range): BP systolic 121–127; BP diastolic 52–80; PULSE 65–86; RESP 17–20; TEMP 36.3–36.7; O2SAT 95–100; BMI 21.2
[2025-02-25 00:08] LABS: Vitamin B12 912 pg/mL (180-914)
[2025-02-25] MEDS: Sodium Bicarbonate 650 MG Tablet PO ×3 (05:40→20:58)
[2025-02-25] MEDS: Levothyroxine 88 MCG Tablet PO (05:40)
[2025-02-25] MEDS: Ipratropium/Albuterol Sulfate 3 ML AMPUL.NEB INHALATION ×3 (07:39→15:12)
[2025-02-25] MEDS: Magnesium Oxide 400 MG Tablet PO (08:11)
[2025-02-25] MEDS: Potassium Chloride Oral Tablet 20 MEQ PO (08:11)
[2025-02-25] MEDS: 0.9% Saline Lock 10 ML Syringe IV (08:11)
[2025-02-25] MEDS: Doxycycline 100 MG CAPSULE PO ×2 (08:11→20:57)
[2025-02-25] MEDS: buPROPion (XL) 150 MG TABLET.XL PO (08:11)
[2025-02-25] MEDS: Cefdinir 300 MG Capsule PO ×2 (08:11→20:58)
[2025-02-25] MEDS: guaiFENesin 600 MG Tablet PO ×2 (08:11→20:58)
[2025-02-25] MEDS: Cholecalciferol (VIT D3) 25 MCG TABLET (1,000 UNITS) PO (08:11)
[2025-02-25] MEDS: predniSONE 20 MG Tablet 40 MG PO (08:11)
[2025-02-25] MEDS: Citalopram 40 MG TABLET PO (08:11)
[2025-02-25] MEDS: Menthol/Lanolin/Calamine/Znox 113 GM Tube 1 APPLIC TOPICAL ×2 (08:12→20:59)
--- NOTE | 2025-02-25 09:26 | NURSING ---
Resident asking to change colostomy appliance. She usually changes on own at home while standing, needs assistance here d/t getting very short of breath with any activity. She has her own supplies that were used. She does have a small bleeding area to bottom of stoma, otherwise skin intact around stoma. Area cleansed, skin prep applied, used ostomy barrier ring and 1 piece pouching system per her routine.
--- NOTE | 2025-02-25 09:35 | NURSING ---
Addendum entered by Xuan Cavazos 02/25/25 09:39: Updated dtr about inhaler. Original Note: Resident updated that Trelegy inhaler was ordered for her to start while here. Should arrive tomorrow.
--- NOTE | 2025-02-25 09:39 | NURSING ---
Addendum entered by Xuan Cavazos 02/25/25 12:53: Call back from Michelle who reports Dr. Morrison is not concerned with the bleeding. She didn't feel blood thinner needs held, with stent and stones not surprised with bleeding coming and going. Says they would be concerned if having clotting, fevers, nausea. They do not plan to remove stent this week, will keep in touch about removing in the future but in no tapia. Suggested check blood levels and a repeat urine culture. Left note updating Dr. Kang. Updated resident. Michelle was calling to update dtnae Sepulveda. Original Note: Left VM with Dr. Morrison's office about plan for stent and update that continues to have hematuria. Await return call. Dtr Jessica tinajero.
--- NOTE | 2025-02-25 11:31 | CASEMGMT ---
Social Work SW met with patient to complete initial assessment. pt known to this worker from previous stay. Verified contacts. Patient confirmed code status as full code. Educated to Medicare benefit and copay coverage. Pt lives at home alone and goal is to return at DC. SW will continue to follow for DC planning. Arely Marlow MSW [place]
--- NOTE | 2025-02-25 20:07 | NURSING ---
Patient complaining of generalized aches and pain, especially following therapy. Consulted Dr. Kang via secure-text. New order for PRN tylenol 1000mg Q6H PO. Ordered verified via secure-text.
[2025-02-25] MEDS: Acetaminophen 500 MG Tablet 1000 MG PO (20:58)
[2025-02-25] MEDS: APIXABAN 5 MG TABLET PO (20:59)
[2025-02-25 21:34] LABS: Color, Urine Yellow (Yellow); Glucose, Dipstick Normal (Normal); Ketone-Dipstick Negative (Negative); Leukocyte Esterase-Dipstick 100 /ul (Negative); Mucous, Urine 0 SEEN /hpf (<or=2+); Nitrite-Dipstick Negative (Negative); Occult Blood-Urine 250 /ul (Negative); Protein-Dipstick 100 mg/dl (Negative); Specific Gravity, Urine 1.015 (1.002-1.030); Urine Bilirubin Dipstick Negative (Negative); Urine Clarity Cloudy (Clear); Urine Urobilinogen Normal (Normal)
[2025-02-25 21:46] LABS: Bacteria 1+ /hpf (None Seen); Red Blood Cells-Urine > 100 SEEN /hpf (0-5); Squamous Epithelial Cells - UA 0-5 SEEN /hpf (5-10); White Blood Cells 0-5 SEEN /hpf (0-5)
--- NOTE | 2025-02-26 02:40 | NURSING ---
Straight cathed patient for urinary collection at using sterile procedure. Patient tolerated well. Urine clear and slightly blood-tinged in color, normal odor. 200cc urine emptied from bladder. Collections sent to lab to be tested.
[2025-02-26] MEDS: Levothyroxine 88 MCG Tablet PO (06:04)
[2025-02-26] MEDS: Sodium Bicarbonate 650 MG Tablet PO ×3 (06:04→20:27)
[2025-02-26] MEDS: Ipratropium/Albuterol Sulfate 3 ML AMPUL.NEB INHALATION ×2 (07:30→11:14)
[2025-02-26 07:40] VITALS: PULSE 80; RESP 20
[2025-02-26 08:52] VITALS: BP 119/65; PULSE 91; RESP 20; TEMP 36.6; O2SAT 97
[2025-02-26] MEDS: Menthol/Lanolin/Calamine/Znox 113 GM Tube 1 APPLIC TOPICAL ×2 (08:53→20:32)
[2025-02-26] MEDS: Citalopram 40 MG TABLET PO (08:54)
[2025-02-26] MEDS: predniSONE 20 MG Tablet 40 MG PO (08:54)
[2025-02-26] MEDS: guaiFENesin 600 MG Tablet PO ×2 (08:54→20:26)
[2025-02-26] MEDS: Magnesium Oxide 400 MG Tablet PO (08:54)
[2025-02-26] MEDS: Doxycycline 100 MG CAPSULE PO ×2 (08:54→20:28)
[2025-02-26] MEDS: APIXABAN 5 MG TABLET PO ×2 (08:54→20:27)
[2025-02-26] MEDS: buPROPion (XL) 150 MG TABLET.XL PO (08:54)
[2025-02-26] MEDS: Cefdinir 300 MG Capsule PO ×2 (08:54→20:28)
[2025-02-26] MEDS: Potassium Chloride Oral Tablet 20 MEQ PO (08:54)
[2025-02-26] MEDS: Cholecalciferol (VIT D3) 25 MCG TABLET (1,000 UNITS) PO (08:55)
[2025-02-26] MEDS: Acetaminophen 500 MG Tablet 1000 MG PO (09:00)
--- NOTE | 2025-02-26 09:40 | CASEMGMT ---
Social Work IDT met with patient and dtr for care plan meeting. Discussed patient's progress in PT/OT/SN. Educated to Medicare benefit. Provided pt/family with written communication of insurance process and copay coverage during stay. Pt lives at home alone and goal is to return to baseline prior to DC. Pt is currently more fatigued and pt will need to complete 4 MARII home. Dtr noted pt was fatiguing after preparing meals prior. SW offered and provided resources for home delivered meals, along with medical alert. SW will continue to follow and assist with DC planning. Arely Marlow [employer]IT[employer]ER STEAM TABLE WORKER
[2025-02-26 10:06] VITALS: O2SAT 97
--- NOTE | 2025-02-26 10:45 | NURSING ---
Addendum entered by Nancy Higuera 02/26/25 14:34: Dr. Morrison in to see patient this afternoon, requesting that nursing saves clean catch urine sample for when she comes in again to see pt tomorrow morning. Placed nursing communication and will notify shift lab technician nurse. Assisted pt after toileting ~1420, no blood noted to output or peripad. Original Note: Staff notifies that that pt has blood in toilet after using. Small amount of blood noted to tissue in toilet. Pt restarted on eliquis yesterday. Pt denies pain, states that she has had hematuria in the past with restarting Eliquis; occasionally has soaked through humberto-pads with it. Denies bleeding to peripad today.
[2025-02-26 11:14] VITALS: PULSE 77; RESP 17
--- NOTE | 2025-02-26 11:55 | NURSING ---
Call from Dr. Morrison's office asking about consult so she can see on TCU, concerned about reported blood clots in urine. Updated Dr. Kang, order to consult Dr. Morrison.
[2025-02-26] MEDS: COVID VAC 24-25 (12UP)(MODERNA)/PF 50 MCG/0.5 ML SYRINGE IM (15:21)
[2025-02-27] MEDS: Levothyroxine 88 MCG Tablet PO (05:26)
[2025-02-27] MEDS: Sodium Bicarbonate 650 MG Tablet PO ×3 (05:26→20:54)
[2025-02-27 05:31] VITALS: PULSE 74; RESP 18; O2SAT 98
[2025-02-27 08:06] VITALS: BP 131/62; PULSE 74; RESP 18; TEMP 36.8; O2SAT 97
--- NOTE | 2025-02-27 08:10 | NURSING ---
Addendum entered by Anita Jain 02/27/25 10:15: pt assisted to BR @ 0915 & noted her with ^ SOB, so DRAWBENCH OPERATOR increased 3 Liters oxygen. Original Note: pt reports she wears oxygen 2 liters at home, pt 97% on 3 liters resting in chair eating brkfs. reduced oxygen to 2 liters, will monitor sats throughout day.
[2025-02-27] MEDS: APIXABAN 5 MG TABLET PO ×2 (08:11→20:54)
[2025-02-27] MEDS: Cefdinir 300 MG Capsule PO (08:11)
[2025-02-27] MEDS: Cholecalciferol (VIT D3) 25 MCG TABLET (1,000 UNITS) PO (08:11)
[2025-02-27] MEDS: Doxycycline 100 MG CAPSULE PO (08:11)
[2025-02-27] MEDS: guaiFENesin 600 MG Tablet PO ×2 (08:12→20:54)
[2025-02-27] MEDS: buPROPion (XL) 150 MG TABLET.XL PO (08:12)
[2025-02-27] MEDS: Citalopram 40 MG TABLET PO (08:12)
[2025-02-27] MEDS: Potassium Chloride Oral Tablet 20 MEQ PO (08:12)
[2025-02-27] MEDS: Magnesium Oxide 400 MG Tablet PO (08:12)
[2025-02-27] MEDS: predniSONE 20 MG Tablet 40 MG PO (08:12)
[2025-02-27] MEDS: FLUTICASONE/UMECLIDIN/VILANTER 1 INH INHALER INHALATION (08:13)
[2025-02-27] MEDS: Menthol/Lanolin/Calamine/Znox 113 GM Tube 1 APPLIC TOPICAL ×2 (08:13→20:55)
--- NOTE | 2025-02-27 09:35 | PCM.CONS.GEN ---
Assessment & Plan Assessment/Plan (1) Acute UTI: (2) Kidney stones: (3) Hematuria: PLAN: Plan agree with antibiotic change to cover the culture, repeat culture still pending continue supportive care remove stent when able to come to the office no need for bladder irrigation at present HPI Consult Data Date of Consult: 02/27/25 HPI Narrative Reason for Consultation: Hematuria HPI Narrative: JOSE DE JESUS GOLD, is a 79 F who is admitted into the transitional care unit after having pneumonia with respiratory insufficiency, DVT and being anticoagulated with decompensation. She recently has undergone intervention for lithotripsy for obstructing ureteral stones on the right and she still has a right ureteral stent indwelling along with right stone burden. She was recently treated for a urinary tract infection as well. The hematuria comes and goes and is more while she is on the Eliquis. She is not passing significant clots. She is not having right flank pain or bladder pain. There is no dysuria. She feels very tired. [facility] Medical History (Updated 02/27/25 @ 09:[address] 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 Crohn's disease Diarrhea Diarrhea Wears hearing aid Wears dentures Cancer Anxiety Thyroid disease Walker as ambulation aid Arthritis Easy bruising TIA (transient ischemic attack) Former smoker COPD (chronic obstructive pulmonary disease) Shortness of breath on exertion History of pain when walking History of echocardiogram History of stress test History of fracture of patella Stage 3b chronic kidney disease (CKD) Osteoporosis Urinary retention Rectal cancer Hydronephrosis Lung cancer Rectal cancer Decreased appetite Abdominal bloating COPD (chronic obstructive pulmonary disease) TIA (transient ischemic attack) Nicotine abuse Depression Anxiety Hypothyroidism COPD exacerbation Chronic bronchitis 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 calculus Hydronephrosis, right Filling defect on imaging study History of rectal cancer Home Medications ?Medication ?Instructions ?Recorded ?Last Taken ?Type bupropion HCl 150 mg 24 hr tablet, 150 mg PO QAM quit smoking 11/28/18 02/22/25 History extended release (Wellbutrin XL) citalopram 40 mg tablet 40 mg PO DAILY Anxiety 04/24/19 02/22/25 History cyanocobalamin (vitamin B-12) 100 mcg IM Q30D Supplement 10/08/19 01/22/25 History 1,000 mcg/mL injection solution cholecalciferol (vitamin D3) 25 25 mcg PO DAILY Supplement 10/09/21 02/22/25 History mcg (1,000 unit) capsule (Vitamin D3) levothyroxine 88 mcg tablet 88 mcg PO DAILY thyroid 12/14/23 02/22/25 History albuterol sulfate 90 mcg/actuation 2 puff inhalation Q4H PRN 05/24/24 01/16/25 Rx aerosol inhaler (Ventolin HFA) shortness of breath or wheezing #18 grams potassium chloride 20 mEq 20 meq PO DAILY supplement 12/21/24 02/22/25 History tablet,extended release sodium bicarbonate 650 mg tablet 650 mg PO TID supplement 01/06/25 02/22/25 History ondansetron 4 mg disintegrating 4 mg PO Q8H PRN nausea and 01/16/25 Unknown Rx tablet vomiting #10 tabs ustekinumab 90 mg/mL subcutaneous 90 mg subcut Q56D unknown 01/31/25 01/30/25 History syringe (Stelara) hydroxyzine HCl 10 mg tablet 10 mg PO TID PRN PRN 02/07/25 02/21/25 Rx Anxiety/Agitation 7 days #21 tabs apixaban 5 mg tablet (Eliquis) 5 mg PO BID blood thinner 02/20/25 02/21/25 History magnesium oxide 400 mg (241.3 mg 400 mg PO DAILY supplement 02/20/25 Unknown History magnesium) tablet cefdinir 300 mg capsule 300 mg PO BID pneumonia #10 caps 02/22/25 02/22/25 Rx doxycycline hyclate 100 mg tablet 100 mg PO BID antibiotic #10 tabs 02/22/25 Unknown Rx prednisone 20 mg tablet 40 mg (2 x 20 mg) PO DAILY steroid 02/22/25 Unknown Rx #10 tabs fluticasone fur. 200 mcg-umeclid 1 inh inhalation DAILY #60 ea 02/24/25 Unknown Rx 62.5 mcg-vilant 25 mcg inhalat.powder (Trelegy Ellipta) ipratropium 0.5 mg-albuterol 3 mg 3 ml inhalation Q4-6H PRN 02/24/25 Unknown History (2.5 mg base)/3 mL nebulization soln ipratropium 0.5 mg-albuterol 3 mg 3 ml inhalation Q4H PRN PRN SOB 02/24/25 Unknown Rx (2.5 mg base)/3 mL nebulization &/OR WHEEZING #180 mL soln magnesium aspart,citrate,oxide mg PO 02/24/25 Unknown History sennosides 8.6 mg capsule (senna) 8.6 mg PO QDAY PRN 02/24/25 Unknown History Allergy/AdvReac Type Severity Reaction Status Date / Time levofloxacin Allergy Mild Rash Verified 02/24/25 10:14 ciprofloxacin HCl (From Allergy Rash Verified 02/24/25 10:14 Cipro) Penicillins Allergy Hives Verified 02/24/25 10:14 codeine AdvReac makes her Verified 02/24/25 10:14 feel weird magnesium citrate AdvReac Nausea Verified 02/24/25 10:14 NSAIDS (Non-Steroidal AdvReac kidney Verified 02/24/25 10:14 Anti-Inflamma damage r/t long-term usage advised not to use Family History Father Heart disease Mother Heart disease Sister Heart disease Diabetes Other Crohn's disease Surgical History S/P ureteral stent placement S/P lobectomy of lung History of cystoscopy History of colonoscopy (~10/2019) History of colostomy History of cholecystectomy History of bowel resection History of hysterectomy History of delivery Social History household members: none Smoking Status: Former smoker Tobacco: How many years used: 53 how long ago did patient quit smoking: Quit 2-5 years prior. second hand exposure: No alcohol intake: never substance use type: does not use caffeine: No what type of physical activity do you participate in: none ROS Constitutional Constitutional: Reports fatigue and lethargy; Denies chills or fever(s) Eyes Eyes: Reports systems reviewed and no addt'l complaints, except as documented ENT HEENT: Reports systems reviewed and no addt'l complaints, except as documented Cardiovascular Cardiovascular: Reports systems reviewed and no addt'l complaints, except as documented; Denies chest pain or nausea Respiratory/Chest Respiratory/Chest: Reports dyspnea; Denies difficulty clearing secretions or shortness of breath at rest Gastrointestinal Gastrointestinal: Denies abdominal pain, nausea or vomiting Genitourinary Genitourinary: Reports hematuria and urinary incontinence; Denies flank pain or low back pain Musculoskeletal Musculoskeletal: Reports systems reviewed and no addt'l complaints, except as documented Integumentary Integumentary: Reports systems reviewed and no addt'l complaints, except as documented Neurologic Neurologic: Reports systems reviewed and no addt'l complaints, except as documented Psychiatric Psychiatric: Reports systems reviewed and no addt'l complaints, except as documented Endocrine Endocrinology: Reports systems reviewed and no addt'l complaints, except as documented Hematologic/Lymphatic Hematologic/Lymphatic: Reports systems reviewed and no addt'l complaints, except as documented Allergic/Immunologic Allergic/Immunologic: Reports systems reviewed and no addt'l complaints, except as documented Physical Exam Const alert, oriented x3 and no apparent distress General Appearance: cooperative, comfortable and well kempt HEENT normocephalic, head/scalp atraumatic, hearing grossly normal bilaterally, external ears normal and external nose normal Eyes General Eye: normal appearance of both eyes Neck supple General: normal visual inspection and trachea midline Lymph Lymphatic: no lymphedema noted Chest inspection of chest normal Chest: symmetrical chest wall rise Resp normal respiratory effort, normal air movement and no retractions Cardio regular rate GI soft to palpation no CVA tenderness Back/Spine no CVA tenderness Extremity normal to inspection Skin no rashes or lesions noted, no jaundice, no petechiae and no mottling Neuro oriented x3, CN's II-XII intact bilaterally and moves all extremities Psych mental status grossly normal Lab / Micro Data 02/26/25 05:09 02/23/25 05:05 Micro: Microbiology 02/22/25 23:02 Urine, Clean Catch Urine Culture - Preliminary Enterobacter cloacae complex
[2025-02-27] MEDS: Smz/Tmp Ds Tablet 1 TABLET PO ×2 (10:17→17:11)
[2025-02-27] MEDS: hydrOXYzine 10 MG Tablet PO ×2 (10:18→20:54)
--- NOTE | 2025-02-27 10:20 | NURSING ---
pt up in chair, updated pt on preliminary urine results & reason for EBP status. pt verbalized understanding, requesting something for anxiety. fresh water given, 1:1 support provided ineffective. PRN vistaril given.
--- NOTE | 2025-02-27 10:22 | NURSING ---
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 Dr Benito here to assess pts urine, which is hematuria, no clots in this sample. She was updated on new ATB order.
--- NOTE | 2025-02-27 11:13 | CASEMGMT ---
Social Work SW completed BIMS () and PHQ-2 () for MDS assessment. Though, pt expressed feeling more anxious than depressed. SW explored further as pt was becoming tearful with her explanation. Pt stated her ATB was switched as she has another infection, and the infection prevention protocol of PPE was placed on her door. Pt felt inferior and scared with that placed. Pt explained the nurse and Dr gave valid explanation to that protocol, but she still feels anxious about not getting better quicker. Pt expressed feeling discouraged at times d/t another setback with her medical complexities. Though, pt is able to note her improvements with therapy since admission. SW validated pt's feelings, offered a lot of reassurance and focused on forward thinking. Pt appreciative. SW offered ongoing supportive visits as needed. Arely Marlow RN CLINICAL COORDINATOR DRUM REEL CUTTER
[2025-02-28] MEDS: Levothyroxine 88 MCG Tablet PO (04:49)
[2025-02-28] MEDS: Sodium Bicarbonate 650 MG Tablet PO ×3 (04:49→19:56)
[2025-02-28 05:56] LABS: Hematocrit 31.1 % (37-47); Hemoglobin 9.6 g/dL (12.0-15.0)
[2025-02-28] MEDS: APIXABAN 5 MG TABLET PO ×2 (09:04→19:56)
[2025-02-28] MEDS: Magnesium Oxide 400 MG Tablet PO (09:05)
[2025-02-28] MEDS: buPROPion (XL) 150 MG TABLET.XL PO (09:05)
[2025-02-28] MEDS: guaiFENesin 600 MG Tablet PO ×2 (09:05→19:55)
[2025-02-28] MEDS: predniSONE 20 MG Tablet 40 MG PO (09:05)
[2025-02-28] MEDS: Cholecalciferol (VIT D3) 25 MCG TABLET (1,000 UNITS) PO (09:06)
[2025-02-28] MEDS: Potassium Chloride Oral Tablet 20 MEQ PO (09:06)
[2025-02-28] MEDS: Citalopram 40 MG TABLET PO (09:08)
[2025-02-28] MEDS: FLUTICASONE/UMECLIDIN/VILANTER 1 INH INHALER INHALATION (09:09)
--- NOTE | 2025-02-28 09:48 | MDS.RN ---
Pain assessment for MDS complete.
[2025-02-28 14:06] VITALS: PULSE 82; RESP 18
[2025-02-28] MEDS: Albuterol 2.5 MG/3 ML VIAL.NEB. INHALATION (14:06)
[2025-02-28] MEDS: Menthol/Lanolin/Calamine/Znox 113 GM Tube 1 APPLIC TOPICAL ×2 (15:13→19:59)
[2025-02-28 16:00] VITALS: BP 129/58; PULSE 75; RESP 18; TEMP 36.8; O2SAT 3
[2025-02-28] MEDS: hydrOXYzine 10 MG Tablet PO (19:58)
[2025-03-01] MEDS: Sodium Bicarbonate 650 MG Tablet PO ×3 (06:08→19:44)
[2025-03-01] MEDS: Levothyroxine 88 MCG Tablet PO (06:08)
[2025-03-01 07:37] VITALS: BP 141/78; PULSE 78; RESP 16; TEMP 36.2; O2SAT 98
[2025-03-01] MEDS: Potassium Chloride Oral Tablet 20 MEQ PO (07:40)
[2025-03-01] MEDS: Magnesium Oxide 400 MG Tablet PO (07:41)
[2025-03-01] MEDS: Citalopram 40 MG TABLET PO (07:41)
[2025-03-01] MEDS: guaiFENesin 600 MG Tablet PO ×2 (07:41→19:44)
[2025-03-01] MEDS: predniSONE 20 MG Tablet 40 MG PO (07:41)
[2025-03-01] MEDS: FLUTICASONE/UMECLIDIN/VILANTER 1 INH INHALER INHALATION (07:42)
[2025-03-01] MEDS: buPROPion (XL) 150 MG TABLET.XL PO (07:42)
[2025-03-01] MEDS: Cholecalciferol (VIT D3) 25 MCG TABLET (1,000 UNITS) PO (07:42)
[2025-03-01] MEDS: hydrOXYzine 10 MG Tablet PO ×2 (07:44→19:44)
[2025-03-01] MEDS: Menthol/Lanolin/Calamine/Znox 113 GM Tube 1 APPLIC TOPICAL ×2 (07:44→19:45)
--- NOTE | 2025-03-01 08:20 | NURSING ---
Addendum entered by Anita Jain 03/01/25 11:26: Dr kimball placed eliquis on hold until Dr Morrison can remove stent. Nursing communication placed for staff to notify her on Monday for date and time to do procedure. Original Note: pt anxious this AM, she feels bleeding is worse previously. pt had humberto pad on and mod amt of bright red blood noted. will update dr kimball, pt is on eliquis BID as well. vitals stable. pt up in chair. 1:1 support provided, pt fears there is something wrong.
[2025-03-01 10:37] VITALS: PULSE 87; RESP 16; O2SAT 96
[2025-03-01 11:03] VITALS: PULSE 82; RESP 16
[2025-03-01] MEDS: Albuterol 2.5 MG/3 ML VIAL.NEB. INHALATION (11:04)
[2025-03-02] MEDS: Levothyroxine 88 MCG Tablet PO (05:37)
[2025-03-02] MEDS: Sodium Bicarbonate 650 MG Tablet PO ×3 (05:37→20:01)
[2025-03-02 06:33] VITALS: O2SAT 93
[2025-03-02] MEDS: Cholecalciferol (VIT D3) 25 MCG TABLET (1,000 UNITS) PO (08:04)
[2025-03-02] MEDS: buPROPion (XL) 150 MG TABLET.XL PO (08:04)
[2025-03-02] MEDS: Menthol/Lanolin/Calamine/Znox 113 GM Tube 1 APPLIC TOPICAL ×2 (08:05→20:03)
[2025-03-02] MEDS: FLUTICASONE/UMECLIDIN/VILANTER 1 INH INHALER INHALATION (08:05)
[2025-03-02] MEDS: guaiFENesin 600 MG Tablet PO ×2 (08:05→20:01)
[2025-03-02] MEDS: Citalopram 40 MG TABLET PO (08:05)
[2025-03-02] MEDS: Magnesium Oxide 400 MG Tablet PO (08:05)
[2025-03-02] MEDS: Potassium Chloride Oral Tablet 20 MEQ PO (08:05)
[2025-03-02] MEDS: predniSONE 20 MG Tablet 40 MG PO (08:05)
[2025-03-02 09:09] VITALS: BP 134/65; PULSE 75; RESP 18; TEMP 36.5; O2SAT 99
[2025-03-02] MEDS: Tuberculin,Purif.prot.deriv. 50 TU/ML Vial 0.1 ML ID (09:31)
[2025-03-03] MEDS: Sodium Bicarbonate 650 MG Tablet PO ×3 (05:20→20:51)
[2025-03-03] MEDS: Levothyroxine 88 MCG Tablet PO (05:21)
[2025-03-03 06:11] LABS: Anion Gap 9 (5-15); BUN 21 mg/dL (4-19); BUN/Creat Ratio 13.1 RATIO (10-20); Calcium,Total 8.8 mg/dL (7.6-11.0); Carbon Dioxide 17.7 mmol/L (21.0-32.0); Chloride 113 mmol/L (98-108); Creatinine, Serum 1.58 mg/dL (0.70-1.20); EST Glomerular Filtration Rate 33 (>60); Estimated Creatinine Clearance 21.79 ml/min (50-250); Glucose 84 mg/dL (70-99); Potassium 5.3 mmol/L (3.3-5.1); Sodium Level 139 mmol/L (133-145)
--- NOTE | 2025-03-03 07:12 | NURSING ---
dr Morrison notified of increased hematuria, going to schedule stent removal and will let us know date/time. will update pt
[2025-03-03 07:36] LABS: Absolute Lymphocyte Count 2.99 X10^3/uL (0.83-4.51); Absolute Neutrophil Count 12.5 X10^3/uL (2.0-7.7); Basophil# 0.02 X10^3/uL; Basophil% 0.1 % (0-1); Eosinophil# 0.03 X10^3/uL; Eosinophils% 0.2 % (0-5); Hematocrit 32.1 % (37-47); Lymphocyte # 2.99 X10^3/ul (0.83-4.51); Lymphocyte % 17.8 % (19-41); Mean Corp Hgb Conc 31.2 g/dL (32-36); Mean Corpuscular Hgb 30.2 pg (27.0-32.0); Monocyte% 7.1 % (0-10); NRBC Flagged by Analyzer 0 % (0-5); Neutrophil # 12.46 X10^3/uL (2.7-7.7); Neutrophil % 74.1 % (47-70); Platelet Count 198 K/mm3 (150-450); RBC Distribution Width SD 57.2 fl (35.1-43.9); Red Blood Count 3.31 M/mm3 (4.2-5.4); White Blood Count 16.8 K/mm3 (4.4-11.0)
[2025-03-03] MEDS: Magnesium Oxide 400 MG Tablet PO (07:38)
[2025-03-03] MEDS: predniSONE 20 MG Tablet 40 MG PO (07:38)
[2025-03-03] MEDS: Citalopram 40 MG TABLET PO (07:39)
[2025-03-03] MEDS: guaiFENesin 600 MG Tablet PO ×2 (07:39→20:51)
[2025-03-03] MEDS: Cholecalciferol (VIT D3) 25 MCG TABLET (1,000 UNITS) PO (07:40)
[2025-03-03] MEDS: FLUTICASONE/UMECLIDIN/VILANTER 1 INH INHALER INHALATION (07:40)
[2025-03-03] MEDS: buPROPion (XL) 150 MG TABLET.XL PO (07:40)
[2025-03-03 07:42] VITALS: BP 138/64; PULSE 65; RESP 18; TEMP 36.3; O2SAT 99
[2025-03-03] MEDS: Menthol/Lanolin/Calamine/Znox 113 GM Tube 1 APPLIC TOPICAL ×2 (07:42→20:54)
--- NOTE | 2025-03-03 08:44 | NURSING ---
Repairer Shoe Sticks Note; MDS for 03/01/2025 Complete
--- NOTE | 2025-03-03 09:15 | NURSING ---
potassium elevated today, new order for kayexalate. pt updated. potassium dc'd
[2025-03-03] MEDS: Sodium Polystyrene Sulfonate 15 GM/60 ML UDC PO (09:17)
--- NOTE | 2025-03-03 10:38 | RAD_ITS ---
PROCEDURE: CHEST PA AND LATERAL 03/03/2025 REASON FOR EXAM: ELEVATED WBC/RECENT PNEUMONIA TECHNIQUE: Frontal and lateral views of the chest. COMPARISON: 02/20/2025 FINDINGS: Heart: Unremarkable. Mediastinum: Atherosclerosis. Lungs/pleura: Grossly similar mild bibasilar opacities favorable for atelectasis/scarring. No pleural effusion or visible pneumothorax. Bones: Suspect demineralization. Multilevel spondylosis. Lines and support devices: None. Other: Partially imaged suspected RIGHT nephroureteral stent. Calcifications of the tracheobronchial tree. RAD/Chest PA and Lateral IMPRESSION: 1. Grossly similar mild bibasilar opacities favorable for atelectasis/scarring. If concern persists, consider CT. 2. Additional description as above. Reading Location: [id number]
--- NOTE | 2025-03-03 10:52 | NURSING ---
pt with elevated WBC's. dr kimball notified, new order for cxr per daughter reqeust, worried pneumonia may have never resolved. dr anne has surgery scheduled tomorrow 0730 in AM, pt and daughter updated. daughter also concerned about elevated creatinine. explained that it could be from the stent and daughter agreed but wants labs checked again in AM to monitor, and also daughter stated i know Prince will check them as well.
--- NOTE | 2025-03-03 10:58 | NURSING ---
pt returned from xray at this time
--- NOTE | 2025-03-03 11:02 | NURSING ---
dr anne texted, pt NPO after midnight for stent, clot removal & burning any tissue with bleeding tomorrow & pt/daughter updated that she will be lightly sedated. Prince texted that she will update daughter, Coco via phone call.
[2025-03-03 13:20] VITALS: O2SAT 95
[2025-03-04] MEDS: Levothyroxine 88 MCG Tablet PO (05:29)
[2025-03-04] MEDS: FLUTICASONE/UMECLIDIN/VILANTER 1 INH INHALER INHALATION (05:29)
--- NOTE | 2025-03-04 06:00 | NURSING ---
Patient off unit for procedure.
[2025-03-04 06:01] LABS: Absolute Lymphocyte Count 3.32 X10^3/uL (0.83-4.51); Absolute Neutrophil Count 14.6 X10^3/uL (2.0-7.7); Basophil# 0.02 X10^3/uL; Basophil% 0.1 % (0-1); Eosinophil# 0.03 X10^3/uL; Eosinophils% 0.2 % (0-5); Hematocrit 32.2 % (37-47); Lymphocyte # 3.32 X10^3/ul (0.83-4.51); Mean Corp Hgb Conc 31.1 g/dL (32-36); Mean Corpuscular Volume 96.7 fL (81-99); Mean Platelet Vol. 9.1 fl (6.2-12.0); Monocyte# 1.43 X10^3/uL; Monocyte% 7.3 % (0-10); NRBC Flagged by Analyzer 0 % (0-5); Neutrophil # 14.59 X10^3/uL (2.7-7.7); Neutrophil % 74.7 % (47-70); Platelet Count 234 K/mm3 (150-450); RBC Distribution Width CV 15.9 % (11.6-14.6); Red Blood Count 3.33 M/mm3 (4.2-5.4); White Blood Count 19.5 K/mm3 (4.4-11.0)
[2025-03-04 06:19] LABS: Anion Gap 11 (5-15); BUN 17 mg/dL (4-19); BUN/Creat Ratio 11.3 RATIO (10-20); Calcium,Total 8.5 mg/dL (7.6-11.0); Carbon Dioxide 19.6 mmol/L (21.0-32.0); Chloride 111 mmol/L (98-108); Creatinine, Serum 1.49 mg/dL (0.70-1.20); EST Glomerular Filtration Rate 36 (>60); Glucose 79 mg/dL (70-99); Potassium 3.8 mmol/L (3.3-5.1); Sodium Level 141 mmol/L (133-145)
[2025-03-04] MEDS: guaiFENesin 600 MG Tablet PO ×2 (09:33→21:19)
[2025-03-04] MEDS: Menthol/Lanolin/Calamine/Znox 113 GM Tube 1 APPLIC TOPICAL ×2 (09:33→21:19)
[2025-03-04] MEDS: buPROPion (XL) 150 MG TABLET.XL PO (09:34)
[2025-03-04] MEDS: predniSONE 20 MG Tablet 40 MG PO (09:34)
[2025-03-04] MEDS: Cholecalciferol (VIT D3) 25 MCG TABLET (1,000 UNITS) PO (09:34)
[2025-03-04] MEDS: Magnesium Oxide 400 MG Tablet PO (09:35)
[2025-03-04] MEDS: Citalopram 40 MG TABLET PO (09:35)
[2025-03-04 10:35] VITALS: O2SAT 3
[2025-03-04 13:15] VITALS: O2SAT 98
[2025-03-04] MEDS: Sodium Bicarbonate 650 MG Tablet PO ×2 (13:34→21:19)
[2025-03-04 13:59] VITALS: BP 114/56; PULSE 76; RESP 18; TEMP 36.7; O2SAT 97
[2025-03-04 14:11] VITALS: BMI 21.2
[2025-03-04] MEDS: APIXABAN 5 MG TABLET PO (21:19)
[2025-03-04 21:22] VITALS: PULSE 77; RESP 18; O2SAT 97
[2025-03-05] MEDS: Levothyroxine 88 MCG Tablet PO (06:30)
[2025-03-05] MEDS: Sodium Bicarbonate 650 MG Tablet PO ×3 (06:30→20:17)
[2025-03-05] MEDS: guaiFENesin 600 MG Tablet PO ×2 (09:03→20:17)
[2025-03-05] MEDS: Cholecalciferol (VIT D3) 25 MCG TABLET (1,000 UNITS) PO (09:03)
[2025-03-05] MEDS: Magnesium Oxide 400 MG Tablet PO (09:03)
[2025-03-05] MEDS: Citalopram 40 MG TABLET PO (09:03)
[2025-03-05] MEDS: APIXABAN 5 MG TABLET PO ×2 (09:03→20:17)
[2025-03-05] MEDS: FLUTICASONE/UMECLIDIN/VILANTER 1 INH INHALER INHALATION (09:04)
[2025-03-05] MEDS: buPROPion (XL) 150 MG TABLET.XL PO (09:04)
[2025-03-05] MEDS: Menthol/Lanolin/Calamine/Znox 113 GM Tube 1 APPLIC TOPICAL ×2 (09:07→20:18)
[2025-03-05 09:09] VITALS: BP 104/62; PULSE 85; RESP 20; TEMP 36.8; O2SAT 96
[2025-03-05 13:33] VITALS: O2SAT 96
[2025-03-05 14:10] VITALS: O2SAT 96
--- NOTE | 2025-03-05 17:16 | NURSING ---
Assisted pt in changing colostomy appliance d/t colostomy bag leaking.
[2025-03-06] MEDS: Sodium Bicarbonate 650 MG Tablet PO ×3 (05:04→20:13)
[2025-03-06] MEDS: Levothyroxine 88 MCG Tablet PO (05:04)
[2025-03-06 08:01] VITALS: BP 131/68; PULSE 79; RESP 18; TEMP 36.2; O2SAT 96
[2025-03-06] MEDS: buPROPion (XL) 150 MG TABLET.XL PO (08:05)
[2025-03-06] MEDS: Magnesium Oxide 400 MG Tablet PO (08:05)
[2025-03-06] MEDS: Cholecalciferol (VIT D3) 25 MCG TABLET (1,000 UNITS) PO (08:06)
[2025-03-06] MEDS: Citalopram 40 MG TABLET PO (08:06)
[2025-03-06] MEDS: APIXABAN 5 MG TABLET PO ×2 (08:06→20:13)
[2025-03-06] MEDS: guaiFENesin 600 MG Tablet PO ×2 (08:06→20:13)
[2025-03-06] MEDS: FLUTICASONE/UMECLIDIN/VILANTER 1 INH INHALER INHALATION (08:07)
[2025-03-06] MEDS: Menthol/Lanolin/Calamine/Znox 113 GM Tube 1 APPLIC TOPICAL ×2 (08:07→20:14)
--- NOTE | 2025-03-06 08:48 | MDS.RN ---
Information for the MDS was obtained from review of the clinical record, interview of resident, staff, and direct observation of resident?s care.
[2025-03-06 15:07] VITALS: PULSE 75; RESP 16
[2025-03-07 05:06] VITALS: PULSE 85; O2SAT 95
[2025-03-07] MEDS: Sodium Bicarbonate 650 MG Tablet PO ×3 (05:14→21:16)
[2025-03-07] MEDS: Levothyroxine 88 MCG Tablet PO (05:14)
[2025-03-07 07:43] VITALS: O2SAT 95
[2025-03-07 07:51] VITALS: BP 115/53; PULSE 83; RESP 18; TEMP 36.5; O2SAT 96
[2025-03-07] MEDS: buPROPion (XL) 150 MG TABLET.XL PO (07:56)
[2025-03-07] MEDS: FLUTICASONE/UMECLIDIN/VILANTER 1 INH INHALER INHALATION (07:56)
[2025-03-07] MEDS: Cholecalciferol (VIT D3) 25 MCG TABLET (1,000 UNITS) PO (07:57)
[2025-03-07] MEDS: Magnesium Oxide 400 MG Tablet PO (07:57)
[2025-03-07] MEDS: APIXABAN 5 MG TABLET PO ×2 (07:57→21:16)
[2025-03-07] MEDS: Citalopram 40 MG TABLET PO (07:57)
[2025-03-07] MEDS: guaiFENesin 600 MG Tablet PO ×2 (07:57→21:17)
[2025-03-07] MEDS: Menthol/Lanolin/Calamine/Znox 113 GM Tube 1 APPLIC TOPICAL ×2 (07:58→21:18)
[2025-03-07] MEDS: hydrOXYzine 10 MG Tablet PO (13:03)
[2025-03-08 04:31] VITALS: PULSE 82; RESP 18; O2SAT 97
[2025-03-08] MEDS: Levothyroxine 88 MCG Tablet PO (05:10)
[2025-03-08] MEDS: Sodium Bicarbonate 650 MG Tablet PO ×3 (05:10→21:47)
[2025-03-08 06:58] VITALS: O2SAT 94
--- NOTE | 2025-03-08 09:57 | NURSING ---
This nurse called to room d/t pt having hematuria. Urine was clear with hematuria and clots. Dr. Kang updated N.O. to hold Eliquis and Doppler to Left leg to f/u for DVT. Orders read back.
[2025-03-08] MEDS: Magnesium Oxide 400 MG Tablet PO (10:21)
[2025-03-08] MEDS: Cholecalciferol (VIT D3) 25 MCG TABLET (1,000 UNITS) PO (10:21)
[2025-03-08] MEDS: guaiFENesin 600 MG Tablet PO ×2 (10:21→21:47)
[2025-03-08] MEDS: buPROPion (XL) 150 MG TABLET.XL PO (10:21)
[2025-03-08] MEDS: FLUTICASONE/UMECLIDIN/VILANTER 1 INH INHALER INHALATION (10:21)
[2025-03-08] MEDS: Citalopram 40 MG TABLET PO (10:21)
[2025-03-08] MEDS: Menthol/Lanolin/Calamine/Znox 113 GM Tube 1 APPLIC TOPICAL ×2 (10:24→21:48)
[2025-03-08 10:25] VITALS: BP 105/57; PULSE 77; RESP 18; TEMP 36.3; O2SAT 98
[2025-03-09] MEDS: Sodium Bicarbonate 650 MG Tablet PO ×3 (05:07→22:01)
[2025-03-09] MEDS: Levothyroxine 88 MCG Tablet PO (05:07)
[2025-03-09 09:10] VITALS: BP 109/55; PULSE 77; RESP 20; TEMP 36.9; O2SAT 98
[2025-03-09] MEDS: Cholecalciferol (VIT D3) 25 MCG TABLET (1,000 UNITS) PO (09:12)
[2025-03-09] MEDS: FLUTICASONE/UMECLIDIN/VILANTER 1 INH INHALER INHALATION (09:12)
[2025-03-09] MEDS: Citalopram 40 MG TABLET PO (09:12)
[2025-03-09] MEDS: buPROPion (XL) 150 MG TABLET.XL PO (09:12)
[2025-03-09] MEDS: guaiFENesin 600 MG Tablet PO ×2 (09:12→22:01)
[2025-03-09] MEDS: Magnesium Oxide 400 MG Tablet PO (09:12)
[2025-03-09] MEDS: Menthol/Lanolin/Calamine/Znox 113 GM Tube 1 APPLIC TOPICAL ×2 (09:14→22:02)
[2025-03-09 10:01] VITALS: O2SAT 92
[2025-03-09 18:19] VITALS: O2SAT 95
[2025-03-09 22:00] VITALS: PULSE 80; RESP 17; O2SAT 96
[2025-03-10] MEDS: Levothyroxine 88 MCG Tablet PO (06:05)
[2025-03-10] MEDS: Sodium Bicarbonate 650 MG Tablet PO ×3 (06:05→21:13)
[2025-03-10 06:08] VITALS: RESP 16
[2025-03-10 08:22] VITALS: BP 116/61; PULSE 81; RESP 18; TEMP 36.3; O2SAT 99
[2025-03-10] MEDS: Magnesium Oxide 400 MG Tablet PO (08:25)
[2025-03-10] MEDS: Citalopram 40 MG TABLET PO (08:25)
[2025-03-10] MEDS: Cholecalciferol (VIT D3) 25 MCG TABLET (1,000 UNITS) PO (08:25)
[2025-03-10] MEDS: buPROPion (XL) 150 MG TABLET.XL PO (08:25)
[2025-03-10] MEDS: FLUTICASONE/UMECLIDIN/VILANTER 1 INH INHALER INHALATION (08:26)
[2025-03-10] MEDS: Menthol/Lanolin/Calamine/Znox 113 GM Tube 1 APPLIC TOPICAL ×2 (08:26→21:12)
[2025-03-10] MEDS: guaiFENesin 600 MG Tablet PO ×2 (08:29→21:12)
[2025-03-10 08:32] LABS: Absolute Lymphocyte Count 2.07 X10^3/uL (0.83-4.51); Absolute Neutrophil Count 8.5 X10^3/uL (2.0-7.7); Basophil# 0.01 X10^3/uL; Basophil% 0.1 % (0-1); Eosinophils% 1.8 % (0-5); Hematocrit 36.2 % (37-47); Hemoglobin 11.2 g/dL (12.0-15.0); Lymphocyte # 2.07 X10^3/ul (0.83-4.51); Lymphocyte % 18.1 % (19-41); Mean Corp Hgb Conc 30.9 g/dL (32-36); Mean Corpuscular Hgb 29.9 pg (27.0-32.0); Mean Corpuscular Volume 96.5 fL (81-99); Mean Platelet Vol. 8.8 fl (6.2-12.0); Monocyte# 0.59 X10^3/uL; Monocyte% 5.2 % (0-10); NRBC Flagged by Analyzer 0 % (0-5); Neutrophil # 8.48 X10^3/uL (2.7-7.7); Neutrophil % 74.3 % (47-70); Platelet Count 245 K/mm3 (150-450); RBC Distribution Width CV 14.6 % (11.6-14.6); RBC Distribution Width SD 51.5 fl (35.1-43.9); Red Blood Count 3.75 M/mm3 (4.2-5.4); White Blood Count 11.4 K/mm3 (4.4-11.0)
[2025-03-10 09:16] LABS: Anion Gap 13 (5-15); BUN 15 mg/dL (4-19); BUN/Creat Ratio 10.7 RATIO (10-20); Calcium,Total 8.8 mg/dL (7.6-11.0); Carbon Dioxide 22.7 mmol/L (21.0-32.0); Chloride 103 mmol/L (98-108); Creatinine, Serum 1.38 mg/dL (0.70-1.20); EST Glomerular Filtration Rate 39 (>60); Estimated Creatinine Clearance 24.94 ml/min (50-250); Glucose 108 mg/dL (70-99); Potassium 3.3 mmol/L (3.3-5.1); Sodium Level 138 mmol/L (133-145)
[2025-03-10 09:25] VITALS: O2SAT 94
--- NOTE | 2025-03-10 10:46 | NURSING ---
Addendum entered by Anita Jain 03/10/25 11:05: rn cardiovascular icu reported that clot is improving. Original Note: vascular here to do f/u doppler LLE clot
--- NOTE | 2025-03-10 12:45 | NURSING ---
colostomy changed at this time, good seal. pt assisted from bed to chair. call light in reach.
--- NOTE | 2025-03-10 17:26 | NURSING ---
Dr kimball notified of pt LLE DVT improving, new order to restart eliquis at 2.5mg BID, reduced from 5mg BID
[2025-03-10] MEDS: APIXABAN 2.5 MG TABLET (WCH) PO (21:12)
[2025-03-11] MEDS: Sodium Bicarbonate 650 MG Tablet PO ×3 (05:04→19:49)
[2025-03-11] MEDS: Levothyroxine 88 MCG Tablet PO (05:04)
[2025-03-11 07:40] VITALS: BP 120/48; PULSE 67; RESP 18; TEMP 35.9; O2SAT 100
[2025-03-11 07:41] VITALS: O2SAT 98
[2025-03-11] MEDS: Cholecalciferol (VIT D3) 25 MCG TABLET (1,000 UNITS) PO (07:43)
[2025-03-11] MEDS: Citalopram 40 MG TABLET PO (07:43)
[2025-03-11] MEDS: Magnesium Oxide 400 MG Tablet PO (07:43)
[2025-03-11] MEDS: buPROPion (XL) 150 MG TABLET.XL PO (07:44)
[2025-03-11] MEDS: APIXABAN 2.5 MG TABLET (WCH) PO ×2 (07:44→19:49)
[2025-03-11] MEDS: guaiFENesin 600 MG Tablet PO ×2 (07:44→19:49)
[2025-03-11] MEDS: Menthol/Lanolin/Calamine/Znox 113 GM Tube 1 APPLIC TOPICAL ×2 (07:45→19:52)
[2025-03-11] MEDS: FLUTICASONE/UMECLIDIN/VILANTER 1 INH INHALER INHALATION (07:45)
[2025-03-11 10:42] VITALS: BMI 21.2
[2025-03-11] MEDS: hydrOXYzine 10 MG Tablet PO (19:51)
[2025-03-12] MEDS: hydrOXYzine 10 MG Tablet PO ×3 (01:08→17:11)
--- NOTE | 2025-03-12 01:31 | NURSING ---
pt experiencing hematuria, c/o feeling of abdominal pressure and inability to urinate. bladder scan performed with results of 474ml retained. pt straight cathed with 500ml of gross bloody urine. pt states that abdominal pressure is relieved.
[2025-03-12] MEDS: Sodium Bicarbonate 650 MG Tablet PO ×3 (05:12→21:05)
[2025-03-12] MEDS: Levothyroxine 88 MCG Tablet PO (05:12)
[2025-03-12 08:08] VITALS: BP 132/67; PULSE 90; RESP 18; TEMP 36.3; O2SAT 98
[2025-03-12] MEDS: Acetaminophen 500 MG Tablet 1000 MG PO ×2 (08:10→15:17)
[2025-03-12] MEDS: Citalopram 40 MG TABLET PO (08:11)
[2025-03-12] MEDS: Magnesium Oxide 400 MG Tablet PO (08:11)
[2025-03-12] MEDS: Cholecalciferol (VIT D3) 25 MCG TABLET (1,000 UNITS) PO (08:12)
[2025-03-12] MEDS: guaiFENesin 600 MG Tablet PO ×2 (08:12→21:05)
[2025-03-12] MEDS: buPROPion (XL) 150 MG TABLET.XL PO (08:12)
[2025-03-12 08:23] LABS: Absolute Lymphocyte Count 1.89 X10^3/uL (0.83-4.51); Absolute Neutrophil Count 9.1 X10^3/uL (2.0-7.7); Basophil# 0.01 X10^3/uL; Basophil% 0.1 % (0-1); Eosinophils% 1.7 % (0-5); Hematocrit 29.3 % (37-47); Hemoglobin 9.2 g/dL (12.0-15.0); Lymphocyte # 1.89 X10^3/ul (0.83-4.51); Lymphocyte % 15.6 % (19-41); Mean Corp Hgb Conc 31.4 g/dL (32-36); Mean Corpuscular Hgb 29.8 pg (27.0-32.0); Mean Corpuscular Volume 94.8 fL (81-99); Mean Platelet Vol. 8.7 fl (6.2-12.0); Monocyte# 0.81 X10^3/uL; Monocyte% 6.7 % (0-10); NRBC Flagged by Analyzer 0 % (0-5); Neutrophil # 9.13 X10^3/uL (2.7-7.7); Neutrophil % 75.2 % (47-70); Platelet Count 211 K/mm3 (150-450); RBC Distribution Width CV 14.3 % (11.6-14.6); RBC Distribution Width SD 49.5 fl (35.1-43.9); Red Blood Count 3.09 M/mm3 (4.2-5.4); White Blood Count 12.1 K/mm3 (4.4-11.0)
[2025-03-12 08:33] LABS: Bacteria 0 SEEN /hpf (None Seen); Mucous, Urine 0 SEEN /hpf (<or=2+); Squamous Epithelial Cells - UA 0 SEEN /hpf (5-10)
[2025-03-12 08:39] LABS: Color, Urine Red (Yellow); Glucose, Dipstick Normal (Normal); Ketone-Dipstick 5 mg/dl (Negative); Leukocyte Esterase-Dipstick 25 /ul (Negative); Nitrite-Dipstick Negative (Negative); Occult Blood-Urine 250 /ul (Negative); Protein-Dipstick 500 mg/dl (Negative); Urine Bilirubin Dipstick Negative (Negative); Urine Clarity Turbid (Clear); Urine Urobilinogen Normal (Normal)
[2025-03-12 08:45] LABS: Anion Gap 10 (5-15); BUN 15 mg/dL (4-19); BUN/Creat Ratio 10.4 RATIO (10-20); Calcium,Total 8.7 mg/dL (7.6-11.0); Carbon Dioxide 24.1 mmol/L (21.0-32.0); Chloride 104 mmol/L (98-108); Creatinine, Serum 1.44 mg/dL (0.70-1.20); EST Glomerular Filtration Rate 37 (>60); Glucose 94 mg/dL (70-99); Sodium Level 137 mmol/L (133-145)
[2025-03-12 08:51] LABS: Red Blood Cells-Urine > 100 SEEN /hpf (0-5); White Blood Cells 0-5 SEEN /hpf (0-5)
--- NOTE | 2025-03-12 09:30 | NURSING ---
Dr. Morrison called this nurse regarding pt. Dr. Morrison stated daughter called her regarding pt having pain and increased bleeding with urination. Dr. Morrison ordered CT scan of abdomen and pelvis without contrast, Urine culture, CBC w/diff, and BMP. Orders read back. Let Dr. Morrison know that a CT was completed on Monday of chest/Abdomen/Pelvis. Dr. Morrison said to hold off on doing CT at this time and will take a look at the CT from 03/10/25. Daughter and Patient updated.
[2025-03-12] MEDS: FLUTICASONE/UMECLIDIN/VILANTER 1 EACH BLST.W.DEV INHALATION (10:43)
[2025-03-12] MEDS: Menthol/Lanolin/Calamine/Znox 113 GM Tube 1 APPLIC TOPICAL ×2 (10:43→21:07)
--- NOTE | 2025-03-12 11:33 | NURSING ---
Dr. Kang updated on results of CT scan showing Bilateral Lower Pneumonia. received new order for Doxycycline 100mg BID for 7days. Order read back.
[2025-03-12] MEDS: Doxycycline 100 MG CAPSULE PO ×2 (11:36→21:05)
[2025-03-12 18:17] LABS: Hematocrit 28.6 % (37-47); Hemoglobin 8.8 g/dL (12.0-15.0)
--- NOTE | 2025-03-12 18:26 | PCM.PN.GU ---
Subjective Subjective During the middle of the night she began to have difficulty with voiding and required straight cath twice with bloody urine out. She also started to develop left lower back pain. No nausea or vomiting or abdominal pain. She has been fatigued today and unable to do her therapy as a result. She is tearful and frightened. Objective Data Objective Data Vital Signs: Vital Signs Temp Pulse Resp BP Pulse Ox O2 Del Method O2 Flow Rate 97.3 F L 90 18 132/67 H 98 Nasal Cannula 2 03/12/25 08:08 03/12/25 08:08 03/12/25 08:08 03/12/25 08:08 03/12/25 08:08 03/12/25 15:46 03/12/25 15:46 FiO2 96 03/06/25 15:07 Oxygen Flow Rate (L/min) 2 Oxygen Delivery Method Nasal Cannula Weight: 50.984 kg Body Mass Index (BMI) 21.2 Intake & Output: Intake and Output for Last 24 Hours 03/10/25 03/11/25 03/12/25 23:59 23:59 23:59 Intake Total 1060 / 1060 800 / 800 520 / 520 Output Total 500 / 500 Balance 1060 / 1060 800 / 800 20 / 20 Lab / Micro Data Attestation: I reviewed the patient's lab results. 03/12/25 18:05 03/12/25 08:15 Labs: Laboratory Results - last 24 hr 03/12/25 01:30: Urine Color Red, Urine Clarity Turbid, Urine pH 7.0, Ur Specific [place] 1.010, Urine Protein 500 H, Urine Glucose (UA) Normal, Urine Ketones 5 H, Urine Occult Blood 250 H, Urine Nitrite Negative, Urine Bilirubin Negative, Urine Urobilinogen Normal, Ur Leukocyte Esterase 25 H, Urine RBC > 100 SEEN, Urine WBC 0-5 SEEN, Ur Squamous Epith Cells 0 SEEN, Urine Bacteria 0 SEEN, Urine Mucus 0 SEEN 03/12/25 08:15: WBC 12.1 H, RBC 3.09 L, Hgb 9.2 L, Hct 29.3 L, MCV 94.8, MCH 29.8, MCHC 31.4 L, RDW Std Deviation 49.5 H, RDW Coeff of Osmar 14.3, Plt Count 211, MPV 8.7, Immature Gran % (Auto) 0.700, Neut % (Auto) 75.2 H, Lymph % (Auto) 15.6 L, [place] % (Auto) 6.7, Eos % (Auto) 1.7, Baso % (Auto) 0.1, Absolute Neuts (auto) 9.1 H, Absolute Lymphs (auto) 1.89, Nucleated RBC % 0, Sodium 137, Potassium 4.0, Chloride 104, Carbon Dioxide 24.1, Anion Gap 10, BUN 15, Creatinine 1.44 H, Estim Creat Clear Calc 23.90 L, Est GFR (MDRD) Non-Af 37 L, BUN/Creatinine Ratio 10.4, Glucose 94, Calcium 8.7 03/12/25 18:05: Hgb 8.8 L, Hct 28.6 L Micro: Microbiology 02/22/25 23:02 Urine, Clean Catch Urine Culture - Final Enterobacter cloacae complex 02/25/25 21:27 Urine, Catheterized Urine Culture - Final Culture exhibits no growth. Radiography Diagnostic Testing: CT scan done on 03/10/25 was reviewed. From urology standpoint, no hydronephrosis, stones are nonobstructing but still present. Bladder empty. Physical Exam Const alert and oriented x3 General Appearance: cooperative, comfortable, well developed and anxious HEENT normocephalic, head/scalp atraumatic, hearing grossly normal bilaterally, external ears normal and moist oral mucous membranes Eyes General Eye: normal appearance of both eyes Neck supple General: normal visual inspection and trachea midline Lymph Lymphatic: no lymphedema noted Chest inspection of chest normal Chest: symmetrical chest wall rise Resp normal respiratory effort, normal air movement and no retractions Cardio regular rate GI soft to palpation GI Narrative: Suprapubic area tender and distended When her undergarments were removed, there is obvious blood spotting from her rectum on her pad. Narrative: History of radiation for her anal cancer. Urethra and tissues friable and I made the decision to place a 22 [place] three-way catheter so that it would be softer and less traumatic for her urethra. 30 cc were placed into the balloon. Manual bladder irrigation was performed and multiple clots and significant hematuria was identified. She was started on continuous bladder irrigation following removal of clots. It turned to a pink tinge color. Extremity normal to inspection Skin no rashes or lesions noted, no jaundice, no petechiae and no mottling Neuro oriented x3, CN's II-XII intact bilaterally and moves all extremities Psych mental status grossly normal and thought process normal Assessment & Plan Assessment/Plan (1) Kidney stones: (2) Hematuria: (3) Left leg DVT: (4) Anemia: PLAN: Plan Supportive care Follow H&H Continuous bladder irrigation with manual irrigation every 3 hours and as needed to keep the urine light pink to clear Continue antibiotics while continuous bladder irrigation is running If the urine does not clear tomorrow morning, or if her back pain continues, we will plan to proceed with repeat CT scan to ensure no stones have dropped from the kidneys into the ureters No further use of anticoagulation, this was discussed with Dr. Kang today and he is in agreement Will consult for consideration of IVC filter placement Type and screen, keep hemoglobin above 8 N.p.o. after midnight, potential need for ureteral stent insertion or cystoscopy tomorrow
[2025-03-12] MEDS: morphine (oral solution) 10MG/0.5ML Syringe 5 MG PO (18:36)
--- NOTE | 2025-03-12 20:13 | NURSING ---
Manual irrigation completed per order, small clots emptied, returned to clear, pinkish color. No issues voiding/emptying. Patient tolerated procedure well.
--- NOTE | 2025-03-12 21:18 | NURSING ---
Bladder irrigated per order with Normal Saline. Small clots emptied. Emptying clear, red fluids. Patient tolerated procedure well.
--- NOTE | 2025-03-12 23:05 | NURSING ---
Bladder irrigated manually with normal saline. Small clots emptied. Continuous irrigation resumed. Clear, bright red fluids emptying into sheets bag. Patient tolerated procedure well.
--- NOTE | 2025-03-13 00:45 | NURSING ---
Bladder irrigated manually with normal saline per order. Small clots emptied. Clear, bright red fluid emptying into sheets bag. Continuous irrigation resumed. Patient tolerated procedure well.
--- NOTE | 2025-03-13 01:37 | NURSING ---
Addendum entered by Geni Doyle 03/13/25 02:33: Patient reports feeling pressure to bladder. Per order, manually irrigated bladder with normal saline. Small clots emptied. Clear, bright red fluids emptying into sheets bag. Patient tolerated procedure well. Continuous irrigation resumed, emptying fine. Original Note: Patient reports feeling pressure to bladder. Per order, manually irrigated bladder with normal saline. Small clots emptied. Clear, bright red fluids emptying into sheets bag. Patient tolerated procedure well. Continuous irrigation resumed, emptying fine.
[2025-03-13] MEDS: morphine (oral solution) 10MG/0.5ML Syringe 5 MG PO (01:44)
[2025-03-13 03:00] VITALS: BP 69/43; PULSE 85; RESP 17; TEMP 36.8; O2SAT 97
[2025-03-13 03:01] VITALS: BP 68/42
--- NOTE | 2025-03-13 03:03 | NURSING ---
Addendum entered by Geni Doyle 03/13/25 03:13: Patient off unit, being transported by BAR POINTER and NANOTECHNICIAN to ED. Original Note: Patient continues to empty bright red fluids into sheets bag from continuous bladder irrigation. Patient's vitals: Temperature 98.3, SpO2 97% on room air, heart rate 85, blood pressure 69/43, manual blood pressure 68/42. Consulted Dr. Kang via telephone, per his orders, send patient to ED.
--- NOTE | 2025-03-13 03:26 | NURSING ---
This nurse spoke with Patient's daughter, Coco, and updated her regarding patient status and transfer to TCU ED.
--- NOTE | 2025-03-13 07:45 | DS.PCM_ITS ---
Providers Date of Admission: 02/22/25 Primary Care Physician: Dr. Elliot Kang MD Consultations 02/26/25 11:57 Consult: Urology Routine Consulting Provider: Minal Morrison Reason for Consult: stent, hematuria EMERGENT Consult: No MD Notified: Yes Date Notified: 02/26/25 Time Notified: 11:59 Method of Notification: Text Reason For Visit: CAP W/ MILD COPD EXACERBATION, HYPOXIA Diagnosis Discharge Diagnosis (1) Kidney stones: Status: Chronic Code(s): N20.0 - Calculus of kidney (2) Hematuria: Status: Acute Code(s): R31.9 - Hematuria, unspecified (3) Left leg DVT: Status: Acute Code(s): I82.402 - Acute embolism and thrombosis of unspecified deep veins of left lower extremity Qualifiers: Affected thrombotic vein of extremity: unspecified vein of extremity C hronicity: unspecified Qualified Code(s): I82.402 - Acute embolism and thrombosis of unspecified deep veins of left lower extremity (4) Anemia: Status: Acute Code(s): D64.9 - Anemia, unspecified Plan 79 year old female with below past medical history hospitalized for acute respiratory failure with hypoxia 2/2 pneumonia/copd exacerbation, complicated by urinary tract infection, admitted to TCU with debility, here for rehabilitation, strengthening, prior to discharge home alone. * Debility - PT/OT. * Pain - Tylenol 1000mg q6 prn pain (1-10). * Bowel - senna/colace 1 tablet bid prn, Magnesium citrate 300mL daily prn. * Adult immunization - Administer pneumonia vaccine, covid vaccine, flu vaccine as appropriate. * DVT prophylaxis - Eliquis. * COPD - Albuterol 2 puffs q4h prn, Prednisone taper. * DVT LLE - Eliquis 5mg bid thru 05/12/2025. 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 * Urinary tract infection - Cefdinir 300mg bid thru 02/27/2025, urine culture pending. * Vitamin D deficiency - D3 2mcg daily. * Vitamin B12 deficiency - B12 1000mcg im qmonth. * Pneumonia - Cefdinir 300g bid thru 02/27/2025, Doxycycline 100mg bid thru 02/27/2025. * Pruritus - Hydroxyzine 10mg tid prn. * Hypothyroidism - Levothyroxine 88mcg daily. * Hypomagnesemia - Magnesium oxide 400mg daily. * Skin irritation - Calmoseptine topical bid. * Nausea - Zofran odt 4mg q8 prn. * Hypokalemia - KCL 20meq daily. * Metabolic acidosis - Sodium Bicarb 650mg tid. Medications at Discharge Home Medications bupropion HCl 150 mg 24 hr tablet, extended release (Wellbutrin XL) 150 mg PO QAM quit smoking 11/28/18 citalopram 40 mg tablet 40 mg PO DAILY Anxiety 04/24/19 cyanocobalamin (vitamin B-12) 1,000 mcg/mL injection solution 100 mcg IM Q30D Supplement 10/08/19 cholecalciferol (vitamin D3) 25 mcg (1,000 unit) capsule (Vitamin D3) 25 mcg PO DAILY Supplement 10/09/21 levothyroxine 88 mcg tablet 88 mcg PO DAILY thyroid 12/14/23 albuterol sulfate 90 mcg/actuation aerosol inhaler (Ventolin HFA) 2 puff inhalation Q4H PRN shortness of breath or wheezing #18 grams 05/24/24 potassium chloride 20 mEq tablet,extended release 20 meq PO DAILY supplement 12/21/24 sodium bicarbonate 650 mg tablet 650 mg PO TID supplement 01/06/25 ondansetron 4 mg disintegrating tablet 4 mg PO Q8H PRN nausea and vomiting #10 tabs 01/16/25 ustekinumab 90 mg/mL subcutaneous syringe (Stelara) 90 mg subcut Q56D unknown 01/31/25 hydroxyzine HCl 10 mg tablet 10 mg PO TID PRN PRN Anxiety/Agitation 7 days #21 tabs 02/07/25 apixaban 5 mg tablet (Eliquis) 5 mg PO BID blood thinner 02/20/25 magnesium oxide 400 mg (241.3 mg magnesium) tablet 400 mg PO DAILY supplement 02/20/25 cefdinir 300 mg capsule 300 mg PO BID pneumonia #10 caps 02/22/25 fluticasone fur. 200 mcg-umeclid 62.5 mcg-vilant 25 mcg inhalat.powder (Trelegy Ellipta) 1 inh inhalation DAILY #60 ea 02/24/25 ipratropium 0.5 mg-albuterol 3 mg (2.5 mg base)/3 mL nebulization soln 3 ml inhalation Q4-6H PRN shortness of breath 02/24/25 ipratropium 0.5 mg-albuterol 3 mg (2.5 mg base)/3 mL nebulization soln 3 ml inhalation Q4H PRN PRN SOB &/OR WHEEZING #180 mL 02/24/25 Hospital Course Operations - (See below.) Procedures None Summary of Care Provided Minutes Spent on Discharge: 15 Hospital Course: 79 year old female with below past medical history hospitalized for acute respiratory failure with hypoxia 2/2 pneumonia/copd exacerbation, complicated by urinary tract infection, admitted to TCU with debility, here for rehabilitation, strengthening, prior to discharge home alone. 02/10/2025 Doppler ultrasound + left lower extremity dvt, treat with Eliquis thru 05/12/2025. 03/04/2025 Dr. Morrison performed cystoscopy, right ureteral stent removal. Eliquis started and stopped multiple times due to persistent hematuria, most recently, Eliquis started at lower dose 2.5mg bid, hematuria persists. 03/10/2025 Doppler ultrasound left lower extremity showed dvt persists, but improved. 03/10/2025 CT c/a/p showed bibasilar pneumonia, resident started on Doxycycline 100mg bid x 7 days, no cough. 03/12/2025 Dr. Morrison contacted me and we agreed Eliquis is intolerable due to persistent hematuria, plan to stop Eliquis forever, consult Dr. Riojas for IVC filter. 03/13/2025 2:59AM, Despite CBI and manual bladder irrigation, resident had bright red hematuria. Discharge to [facility] ED 03/13/2025 for evaluation, admission to [facility]. Weight / BMI Weight Weight: 50.984 kg Body Mass Index (BMI) 21.2 ABG / Lab / Microbiology Data 03/12/25 18:05 03/12/25 08:15 Laboratory: Laboratory Results - last 24 hr 03/12/25 01:30: Urine Color Red, Urine Clarity Turbid, Urine pH 7.0, Ur Specific Hunter 1.010, Urine Protein 500 H, Urine Glucose (UA) Normal, Urine Ketones 5 H , Urine Occult Blood 250 H, Urine Nitrite Negative, Urine Bilirubin Negative, Urine Urobilinogen Normal, Ur Leukocyte Esterase 25 H, Urine RBC > 100 SEEN, Urine WBC 0-5 SEEN, Ur Squamous Epith Cells 0 SEEN, Urine Bacteria 0 SEEN, Urine Mucus 0 SEEN 03/12/25 08:15: WBC 12.1 H, RBC 3.09 L, Hgb 9.2 L, Hct 29.3 L, MCV 94.8, MCH 29.8, MCHC 31.4 L, RDW Std Deviation 49.5 H, RDW Coeff of Osmar 14.3, Plt Count 211, MPV 8.7, Immature Gran % (Auto) 0.700, Neut % (Auto) 75.2 H, Lymph % (Auto) 15.6 L, [place] % (Auto) 6.7, Eos % (Auto) 1.7, Baso % (Auto) 0.1, Absolute Neuts (auto) 9.1 H, Absolute Lymphs (auto) 1.89, Nucleated RBC % 0, Sodium 137, Potassium 4.0, Chloride 104, Carbon Dioxide 24.1, Anion Gap 10, BUN 15, C reatinine 1.44 H, Estim Creat Clear Calc 23.90 L, Est GFR (MDRD) Non-Af 37 L, BUN/Creatinine Ratio 10.4, Glucose 94, Calcium 8.7 03/12/25 18:05: Hgb 8.8 L, Hct 28.6 L 03/12/25 18:30: Blood Type A POSITIVE, Antibody Screen NEGATIVE, Crossmatch See Detail Microbiology: Microbiology 02/22/25 23:02 Urine, Clean Catch Urine Culture - Final Enterobacter cloacae complex 02/25/25 21:27 Urine, Catheterized Urine Culture - Final Culture exhibits no growth. D/C Instructions Discharge Diet: No restrictions Discharge Activity: Return to Normal Activity, May Shower and Use Walker Weight Bearing Status: Weight bearing as tolerated Call your doctor if you observe: Fever of 101 or Higher, Inability to urinate, Inability to have a bowel movement, Shortness of breath, Dizziness, Fainting spells, Swelling in the ankles, Chest pain and Uncontrolled pain DC O2, CPAP, BIPAP Needs Home O2 Discharge instructions: No Additional Instructions: Discharge to [facility] ED 03/13/2025 for evaluation, admission to [facility]. Meaningful Use Info Meaningful Use Meaningful Use Diagnoses (Choose all that apply): None applicable Ischemic Stroke Statin Dosing Therapy Reference: STATIN DOSE THERAPY REFERENCE: * Patients > 75 years receive moderate or high dose statin therapy. * Patients 75 years or YOUNGER should receive HIGH intensity statin dose unless contraindicated. You will be required to document reason for non-treatment if statin daily dose does not meet guidelines. HIGH DOSE STATIN THERAPY DAILY Atorvastatin > than or = to 40 mg Rosuvastatin > than or = to 20 mg Amlodipine + Atorvastatin > than or = to 2.5/40 mg Ezetimibe + Simvastatin 10/80 mg Simvastatin 80mg Discharge Plan Admission Admit Date/Time: 02/22/25 17:20 Primary Reason for Your Visit: Debility. Attending Provider: Elliot Kang Chi Primary Care Provider: Elliot Kang Chi Consulting Providers: Minal Morrison Instructions Additional Instructions / Restrictions: Discharge to [facility] ED 03/13/2025 for evaluation, admission to [facility]. Discharge Orders/Prescriptions Prescriptions: No Action bupropion HCl [Wellbutrin XL] 150 mg tablet extended release 24 hr 150 mg PO QAM albuterol sulfate [Ventolin HFA] 90 mcg/actuation HFA aerosol inhaler 2 puff inhalation Q4H PRN (Reason: shortness of breath or wheezing) Qty: 18 6RF ipratropium-albuterol 0.5 mg-3 mg(2.5 mg base)/3 mL solution for nebulization 3 ml inhalation Q4-6H PRN (Reason: shortness of breath) Trelegy Ellipta 200-62.5-25 mcg blister with device 1 inh inhalation DAILY Qty: 60 6RF ipratropium-albuterol 0.5 mg-3 mg(2.5 mg base)/3 mL solution for nebulization 3 ml inhalation Q4H PRN PRN (Reason: SOB &/OR WHEEZING) Qty: 180 6RF citalopram 40 MG tablet 40 mg PO DAILY cyanocobalamin (vitamin B-12) 1,000 MCG/ML solution 100 mcg IM Q30D cholecalciferol (vitamin D3) [Vitamin D3] 25 mcg (1,000 unit) Capsule 25 mcg PO DAILY levothyroxine 88 mcg tablet 88 mcg PO DAILY potassium chloride 20 mEq tablet extended release 20 meq PO DAILY ondansetron 4 mg tablet,disintegrating 4 mg PO Q8H PRN (Reason: nausea and vomiting) Qty: 10 0RF Patient Comments: HASNT NEEDED sodium bicarbonate 650 mg tablet 650 mg PO TID Stelara 90 mg/mL syringe 90 mg subcut Q56D hydroxyzine HCl 10 mg Tablet 10 mg PO TID PRN PRN (Reason: Anxiety/Agitation) 7 Days Qty: 21 0RF magnesium oxide 400 mg (241.3 mg magnesium) tablet 400 mg PO DAILY Eliquis 5 mg tablet 5 mg PO BID cefdinir 300 mg capsule 300 mg PO BID Qty: 10 0RF Referrals / Follow Up: Elliot Kang Chi, MD [Primary Care Provider] - Disposition Disposition (needs filled in before D/C Order can be placed): Acute Care Hospital [facility]
== END 2025-03-13 04:40 | disposition short-term general hospital (02) | DRG 193 ==
PROVIDERS: Urology; Admitting Provider Family Medicine Geriatric Medicine; PCP Family Medicine Geriatric Medicine; Visit Provider Family Medicine Geriatric Medicine
DX: J18.9 Pneumonia, unspecified organism (principal); J96.01 Acute respiratory failure with hypoxia; I82.402 Acute embolism and thrombosis of unspecified deep veins of left lower extremity; E87.20 Acidosis, unspecified; D68.32 Hemorrhagic disorder due to extrinsic circulating anticoagulants; J44.1 Chronic obstructive pulmonary disease with (acute) exacerbation; J44.0 Chronic obstructive pulmonary disease with (acute) lower respiratory infection; N39.0 Urinary tract infection, site not specified; N20.2 Calculus of kidney with calculus of ureter; N18.32 Chronic kidney disease, stage 3b; F32.A Depression, unspecified; E03.9 Hypothyroidism, unspecified; E53.8 Deficiency of other specified B group vitamins; E55.9 Vitamin D deficiency, unspecified; E87.6 Hypokalemia; F41.9 Anxiety disorder, unspecified; D64.9 Anemia, unspecified; Z99.81 Dependence on supplemental oxygen; Z87.891 Personal history of nicotine dependence; Z79.890 Hormone replacement therapy; Z79.899 Other long term (current) drug therapy; Z23 Encounter for immunization; R31.9 Hematuria, unspecified; R06.89 Other abnormalities of breathing; T45.515A Adverse effect of anticoagulants, initial encounter; T83.59 Infection and inflammatory reaction due to prosthetic device, implant and graft in urinary system; Y73.2 Prosthetic and other implants, materials and accessory gastroenterology and urology devices associated with adverse incidents
CPT/HCPCS: 36415; 71046; 80048; 81001; 82607; 85014; 85018; 85025; 86850; 86900; 86901; 87077; 87086; 87088; 87186; 90480; 91322; 94640; 97110; 97116; 97161; 97166; 97530; 97535; 97802; A4216

== ENCOUNTER 2025-03-04 06:03 | Day surgery (SDC) | payer MEDICARE, OTHER, SELFPAY ==
--- NOTE | 2025-03-03 12:13 | PAT.ANE_ITS ---
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 When Was Last Pacemaker Check QUESTION #4 FULL TEXT: You/Your Family Experience fever (hyperthermia) with Anesthesia Last Oral Intake Last Oral intake: Last Oral Intake NPO since Meds taken in AM with sips of water? 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 - electrical manager: PONV - electrical manager Female Yes 03/03/25 11:20 HX of Motion Sickness No 03/03/25 11:20 HX of N/V After Surgery No 03/03/25 11:20 Non-Smoker Yes 03/03/25 11:20 Duration of Surgery greater Yes 03/03/25 11:20 than 60 minutes Number of Risk Factors 3 03/03/25 11:20 PONV Score Moderate Risk 03/03/25 11:20 Height & Weight Height & Weight: Anesthesia: Height & Weight Height 5 ft 1 in 02/26/25 11:34 Respiratory Assessment Respiratory Assessment - electrical manager: Respiratory Tract Infection Hx - electrical manager Hx Respiratory Tract Infection No 03/03/25 11:20 STOP Sleep Apnea STOP Sleep Apnea - electrical manager: STOP Sleep Apnea - electrical manager Hx Hypertension Yes 03/03/25 11:20 Hx Sleep Apnea No 03/03/25 11:20 CPAP No 03/03/25 11:20 BIPAP No 03/03/25 11:20 Do you snore loudly (louder Yes 03/03/25 11:20 than talking or can be heard Do you often feel tired/ No 03/03/25 11:20 fatigued/ sleepy during daytime? Has anyone observed you stop No 03/03/25 11:20 breathing during sleep? STOP Results Positive 03/03/25 11:20 QUESTION #5 FULL TEXT : Do you snore loudly (louder than talking or can be heard through closed doors)? 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 Specify any problems Hx of Preganancy in last 3 No 03/03/25 11:20 Months Nurse Filling Out Transfusion MGNAEEM 03/03/25 11:20 & Questions: Date: 03/03/25 03/03/25 11:20 Time: 11:22 03/03/25 11:20 Patient unable to answer at this time (ie. confused, unrespo /Reproduction History /Reproductive History - electrical manager: /Reproductive Hx- electrical manager Hx Now No 03/03/25 11:20 Gestational Age (in weeks): EDC: Hx Hx Para Hx Section SAB No 03/03/25 11:20 [facility] Medical History (Updated 03/03/25 @ 11:24 by Mili Turcios) Community acquired pneumonia Hematuria UTI (urinary tract infection) Dyspnea Ureteral stent present Kidney stone Hypothyroidism Depression 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 calculus nursing home current use of immunosuppressive drug Crohn's disease Diarrhea Diarrhea Wears hearing aid Wears dentures Cancer Anxiety Thyroid disease Walker as ambulation aid Arthritis Easy bruising TIA (transient ischemic attack) Former smoker COPD (chronic obstructive pulmonary disease) Shortness of breath on exertion History of pain when walking History of echocardiogram History of stress test History of fracture of patella Stage 3b chronic kidney disease (CKD) Osteoporosis Urinary retention Rectal cancer Hydronephrosis Lung cancer Rectal cancer Decreased appetite Abdominal bloating COPD (chronic obstructive pulmonary disease) TIA (transient ischemic attack) Nicotine abuse Depression Anxiety Hypothyroidism COPD exacerbation Chronic bronchitis 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 calculus Hydronephrosis, right Filling defect on imaging study History of rectal cancer Home Medications ?Medication ?Instructions ?Recorded ?Last Taken ?Type bupropion HCl 150 mg 24 hr tablet, 150 mg PO QAM quit smoking 11/28/18 02/22/25 History extended release (Wellbutrin XL) citalopram 40 mg tablet 40 mg PO DAILY Anxiety 04/2402/22/25 History cyanocobalamin (vitamin B-12) 100 mcg IM Q30D Suppleme nt 10/08/19 01/22/25 History 1,000 mcg/mL injection solution cholecalciferol (vitamin D3) 25 25 mcg PO DAILY Supple ment 10/09/21 02/22/25 History mcg (1,000 unit) capsule (Vitamin D3) levothyroxine 88 mcg tablet 88 mcg PO DAILY thyroid 02/22/25 History albuterol sulfate 90 mcg/actuation 2 puff inhalation Q 4H PRN 05/24/24 01/16/25 Rx aerosol inhaler (Ventolin HFA) shortness of breath or wheezing #18 grams potassium chloride 20 mEq 20 meq PO DAILY supplement 0 12/21/24 02/22/25 History tablet,extended release sodium bicarbonate 650 mg tablet 650 mg PO TID supplem ent 01/06/25 02/22/25 History ondansetron 4 mg disintegrating 4 mg PO Q8H PRN nausea and 01/16/25 Unknown Rx tablet vomiting #10 tabs ustekinumab 90 mg/mL subcutaneous 90 mg subcut Q56D un known 01/31/25 01/30/25 History syringe (Stelara) hydroxyzine HCl 10 mg tablet 10 mg PO TID PRN PRN 04/0 02/2802/21/25 Rx Anxiety/Agitation 7 days #21 tabs apixaban 5 mg tablet (Eliquis) 5 mg PO BID blood thinn er 02/20/25 02/28/25 History magnesium oxide 400 mg (241.3 mg 400 mg PO DAILY suppl ement 02/20/25 Unknown History magnesium) tablet cefdinir 300 mg capsule 300 mg PO BID pneumonia #10 caps 04/19/25 04/19/25 Rx doxycycline hyclate 100 mg tablet 100 mg PO BID antibi otic #10 tabs 02/22/25 Unknown Rx prednisone 20 mg tablet 40 mg (2 x 20 mg) PO DAILY s teroid 02/22/25 Unknown Rx #10 tabs fluticasone fur. 200 mcg-umeclid 1 inh inhalation WINNIE Y #60 ea 02/24/25 Unknown Rx 62.5 mcg-vilant 25 mcg inhalat.powder (Trelegy Ellipta) ipratropium 0.5 mg-albuterol 3 mg 3 ml inhalation Q4-6 H PRN 02/24/25 Unknown History (2.5 mg base)/3 mL nebulization soln ipratropium 0.5 mg-albuterol 3 mg 3 ml inhalation Q4H PRN PRN SOB 02/24/25 Unknown Rx (2.5 mg base)/3 mL nebulization &/OR WHEEZING #180 mL soln magnesium aspart,citrate,oxide mg PO 02/24/25 Unknown History sennosides 8.6 mg capsule (senna) 8.6 mg PO QDAY PRN 0 02/24/25 Unknown History Allergy/AdvReac Type Severity Reaction Status Date / Time levofloxacin Allergy Mild Rash Verified 03/03/25 11:14 ciprofloxacin HCl (From Allergy Rash Verified 03/03/25 11:14 Cipro) Penicillins Allergy Hives Verified 03/03/25 11:14 codeine AdvReac makes her Verified 03/03/25 11:14 feel weird magnesium citrate AdvReac Nausea Verified 03/03/25 11:14 NSAIDS (Non-Steroidal AdvReac kidney Verified 03/03/25 11:14 Anti-Inflamma damage r/t long-term usage advised not to use Family History Father Heart disease Mother Heart disease Sister Heart disease Diabetes Other Crohn's disease Surgical History S/P lobectomy of lung S/P ureteral stent placement History of cystoscopy History of colonoscopy (~10/2019) History of colostomy History of cholecystectomy History of bowel resection History of hysterectomy History of delivery Social History household members: none Smoking Status: Former smoker Tobacco: How many years used: 53 how long ago did patient quit smoking: Quit 2-5 years prior. second hand exposure: No alcohol intake: never substance use type: does not use caffeine: No what type of physical activity do you participate in: none Audit: Pertinent Findings Pertinent Findings EKG Perinent findings: 02/20/2025. Normal sinus rhythm [address] depression, probably abnormal. This was reviewed with hospitalist on prior admission. Echo (EF%) pertinent findings: 05/07/2020. EF 60%. Pulmonary function results/spirometer pertinent findings: Chest x-ray 03/03/2025. Mild bibasilar opacities favorable to atelectasis, scarring. Similar to prior radiograph. Patient with known adenocarcinoma of lung. Additional pertinent findings: Hemoglobin 10 g/dL. 03/03/2025. Potassium 5.3. 03/03/2025. Patient should be good to proceed with anesthesia. Recommendation Anesthesia Recommendation Anesthesia recommendation: OPTIMIZED for anesthesia
[2025-03-04] VITALS (7 sets, daily range): BP systolic 126–141; BP diastolic 63–80; PULSE 66–83; RESP 16–18; TEMP 36.3–37.1; O2SAT 98–100; BMI 21.1
[2025-03-04] MEDS: Lactated Ringers 1,000 ML 15 ML IV (06:39)
--- NOTE | 2025-03-04 07:10 | PCM.PRE.AN2 ---
ASA Classification* ASA Classification ASA Classification: 3 Assessment & Plan Anesthesia* Anesthesia Assessment Anesthesia Assessment: Discussed sedation and/or anesthesia options, risks, benefits, and alternatives with patient/parents/legal guardian/POA. Questions invited. The patient/parents/legal guardian/POA seems to understand and agrees to proceed with anesthesia plan. Reviewed the physical assessment, medical history, allergy history and patient home medications list prior to surgery/procedure/anesthetic and documented any changes. Performed airway and anesthesia risk assessments. Anesthesia Type Anesthesia Type: General and MAC History Source History Obtained from:: Patient and Chart Anesthesia Focused Assessment* Temperature: 97.8 F Pulse Rate: 66 Blood Pressure: 136/63 Respiratory Rate: 18 Pulse Ox: 100 Oxygen Delivery Method: Nasal Cannula Oxygen Flow Rate (L/min): 2.5 Airway Assessment Mouth opens: >3 cm Mallampati Score: II Teeth Condition: Missing (Patient is edentulous.) Neck Range of motion (ROM): Full ROM Focused Labs Anesthesia Preop lab: CBC WBC 19.5 K/mm3 (4.4-11.0) H 03/04/25 05:21 03/04/25 RBC 3.33 M/mm3 (4.2-5.4) L 03/04/25 05:21 03/04/25 Hgb 10.0 g/dL (12.0-15.0) L 03/04/25 05:21 03/04/25 Hct 32.2 % (37-47) L 03/04/25 05:21 03/04/25 Plt Count 234 K/mm3 (150-450) 03/04/25 05:21 03/04/25 CHEMISTRY Potassium 3.8 mmol/L (3.3-5.1) 03/04/25 05:21 03/04/25 Sodium 141 mmol/L (133-145) 03/04/25 05:21 03/04/25 Magnesium 1.3 mg/dL (1.5-2.2) L 02/10/25 13:43 02/10/25 Phosphorus 3.1 mg/dL (2.5-4.9) 09/11/24 13:26 09/11/24 BUN 17 mg/dL (4-19) 03/04/25 05:21 03/04/25 Creatinine 1.49 mg/dL (0.70-1.20) H 03/04/25 05:21 03/04/25 Glucose 79 mg/dL (70-99) 03/04/25 05:21 03/04/25 POC Glucose 88 mg/dL (70-110) 02/05/18 12:01 02/05/18 TSH 0.400 uIU/mL (0.300-4.200) 02/19/25 10:04 02/19/25 COAG PT 13.7 SECONDS (11.7-14.9) 02/10/25 13:43 02/10/25 Pre-Assessment Diagnosis/Proposed Procedure Planned Operative Procedure(s): (R) Cysto,Removal Stent,Evacuation of Clot,Possible Fulguration for Bleeding Anesthesia History Anesthesia History - sole trimmer: Anesthesia History - sole trimmer Hx Hospitalization Yes: [facility]- D/C 3/4 FOR STONES 03/03/25 11:20 Any Problems With Anesthesia No 03/03/25 11:20 Cholinesterase deficiency No 03/03/25 11:20 You/Your Family Experience No 03/03/25 11:20 fever (hyperthermia) with Relationship Recent Exposure to Contagious No 03/04/25 06:32 Disease Does patient have nerve No 03/03/25 11:20 stimulator Patient instructed to have device shut off --Does patient have Pacemaker No 03/04/25 06:35 or ICD? When Was Last Pacemaker Check QUESTION #4 FULL TEXT: You/Your Family Experience fever (hyperthermia) with Anesthesia Last Oral Intake Last Oral intake: Last Oral Intake NPO since 00:00 03/04/25 06:35 Meds taken in AM with sips of water? 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 - sole trimmer: PONV - sole trimmer Female Yes 03/03/25 11:20 HX of Motion Sickness No 03/03/25 11:20 HX of N/V After Surgery No 03/03/25 11:20 Non-Smoker Yes 03/03/25 11:20 Duration of Surgery greater Yes 03/03/25 11:20 than 60 minutes Number of Risk Factors 3 03/03/25 11:20 PONV Score Moderate Risk 03/03/25 11:20 Height & Weight Height & Weight: Anesthesia: Height & Weight Height 5 ft 1 in 03/04/25 06:35 Weight: 50.802 kg 03/04/25 06:35 Body Mass Index (BMI) 21.1 03/04/25 06:35 Respiratory Assessment Respiratory Assessment - sole trimmer: Respiratory Tract Infection Hx - sole trimmer Hx Respiratory Tract Infection No 03/03/25 11:20 Any additional information?: Yes Hx Respiratory Tract Infection: Yes (Patient has had pneumonia in the past couple weeks. now clear on CXR.) STOP Sleep Apnea STOP Sleep Apnea - sole trimmer: STOP Sleep Apnea - sole trimmer Hx Hypertension Yes 03/03/25 11:20 Hx Sleep Apnea No 03/03/25 11:20 CPAP No 03/03/25 11:20 BIPAP No 03/03/25 11:20 Do you snore loudly (louder Yes 03/03/25 11:20 than talking or can be heard Do you often feel tired/ No 03/03/25 11:20 fatigued/ sleepy during daytime? Has anyone observed you stop No 03/03/25 11:20 breathing during sleep? STOP Results Positive 03/03/25 11:20 QUESTION #5 FULL TEXT : Do you snore loudly (louder than talking or can be heard through closed doors)? 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 Specify any problems Hx of Preganancy in last 3 No 03/03/25 11:20 Months Nurse Filling Out Transfusion MGRIFFITH 03/03/25 11:20 & Questions: Date: 03/03/25 03/03/25 11:20 Time: 11:22 03/03/25 11:20 Patient unable to answer at this time (ie. confused, unrespo /Reproduction History /Reproductive History - sole trimmer: /Reproductive Hx- sole trimmer Hx Now No 03/03/25 11:20 Gestational Age (in weeks): EDC: Hx Hx Para Hx Section SAB No 03/03/25 11:20 Active Medications Active Medications: Current Medications Generic Name Dose Route Start Last Admin Trade Name Freq PRN Reason Stop Dose Admin Lactated Ringer's 1,000 mls @ 15 mls/hr 03/04/25 06:15 03/04/25 06:39 IV 15 mls/hr .Q48H PRIMO Administration PFS Medical History (Updated 03/04/25 @ 07:[address] 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 Crohn's disease Diarrhea Diarrhea Wears hearing aid Wears dentures Cancer Anxiety Thyroid disease Walker as ambulation aid Arthritis Easy bruising TIA (transient ischemic attack) Former smoker COPD (chronic obstructive pulmonary disease) Shortness of breath on exertion History of pain when walking History of echocardiogram History of stress test History of fracture of patella Stage 3b chronic kidney disease (CKD) Osteoporosis Urinary retention Rectal cancer Hydronephrosis Lung cancer Rectal cancer Decreased appetite Abdominal bloating COPD (chronic obstructive pulmonary disease) TIA (transient ischemic attack) Nicotine abuse Depression Anxiety Hypothyroidism COPD exacerbation Chronic bronchitis 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 calculus Hydronephrosis, right Filling defect on imaging study History of rectal cancer Home Medications ?Medication ?Instructions ?Recorded ?Last Taken ?Type bupropion HCl 150 mg 24 hr tablet, 150 mg PO QAM quit smoking 11/28/18 03/03/25 History extended release (Wellbutrin XL) citalopram 40 mg tablet 40 mg PO DAILY Anxiety 04/24/19 03/03/25 History cyanocobalamin (vitamin B-12) 100 mcg IM Q30D Supplement 10/08/19 01/22/25 History 1,000 mcg/mL injection solution cholecalciferol (vitamin D3) 25 25 mcg PO DAILY Supplement 10/09/21 03/03/25 History mcg (1,000 unit) capsule (Vitamin D3) levothyroxine 88 mcg tablet 88 mcg PO DAILY thyroid 12/14/23 03/04/25 History albuterol sulfate 90 mcg/actuation 2 puff inhalation Q4H PRN 05/24/24 01/16/25 Rx aerosol inhaler (Ventolin HFA) shortness of breath or wheezing #18 grams potassium chloride 20 mEq 20 meq PO DAILY supplement 12/21/24 02/22/25 History tablet,extended release sodium bicarbonate 650 mg tablet 650 mg PO TID supplement 01/06/25 03/03/25 History ondansetron 4 mg disintegrating 4 mg PO Q8H PRN nausea and 01/16/25 Unknown Rx tablet vomiting #10 tabs ustekinumab 90 mg/mL subcutaneous 90 mg subcut Q56D unknown 01/31/25 01/30/25 History syringe (Stelara) hydroxyzine HCl 10 mg tablet 10 mg PO TID PRN PRN 02/07/25 02/21/25 Rx Anxiety/Agitation 7 days #21 tabs apixaban 5 mg tablet (Eliquis) 5 mg PO BID blood thinner 02/20/25 02/28/25 History magnesium oxide 400 mg (241.3 mg 400 mg PO DAILY supplement 02/20/25 03/03/25 History magnesium) tablet cefdinir 300 mg capsule 300 mg PO BID pneumonia #10 caps 02/22/25 02/22/25 Rx doxycycline hyclate 100 mg tablet 100 mg PO BID antibiotic #10 tabs 02/22/25 Unknown Rx prednisone 20 mg tablet 40 mg (2 x 20 mg) PO DAILY steroid 02/22/25 03/03/25 Rx #10 tabs fluticasone fur. 200 mcg-umeclid 1 inh inhalation DAILY #60 ea 02/24/25 Unknown Rx 62.5 mcg-vilant 25 mcg inhalat.powder (Trelegy Ellipta) ipratropium 0.5 mg-albuterol 3 mg 3 ml inhalation Q4-6H PRN 02/24/25 Unknown History (2.5 mg base)/3 mL nebulization soln ipratropium 0.5 mg-albuterol 3 mg 3 ml inhalation Q4H PRN PRN SOB 02/24/25 Unknown Rx (2.5 mg base)/3 mL nebulization &/OR WHEEZING #180 mL soln magnesium aspart,citrate,oxide mg PO 02/24/25 Unknown History sennosides 8.6 mg capsule (senna) 8.6 mg PO QDAY PRN 02/24/25 Unknown History Allergy/AdvReac Type Severity Reaction Status Date / Time levofloxacin Allergy Mild Rash Verified 03/03/25 11:14 ciprofloxacin HCl (From Allergy Rash Verified 03/03/25 11:14 Cipro) Penicillins Allergy Hives Verified 03/03/25 11:14 codeine AdvReac makes her Verified 03/03/25 11:14 feel weird magnesium citrate AdvReac Nausea Verified 03/03/25 11:14 NSAIDS (Non-Steroidal AdvReac kidney Verified 03/03/25 11:14 Anti-Inflamma damage r/t long-term usage advised not to use Family History Father Heart disease Mother Heart disease Sister Heart disease Diabetes Other Crohn's disease Surgical History S/P lobectomy of lung S/P ureteral stent placement History of cystoscopy History of colonoscopy (~10/2019) History of colostomy History of cholecystectomy History of bowel resection History of hysterectomy History of delivery Social History household members: none Smoking Status: Former smoker Tobacco: How many years used: 53 how long ago did patient quit smoking: Quit 2-5 years prior. second hand exposure: No alcohol intake: never substance use type: does not use caffeine: No what type of physical activity do you participate in: none Review of Systems (Anesthesia) ROS Narrative System reviewed and no additional complaints, except as documented.
--- NOTE | 2025-03-04 07:35 | EX.PCM.DISCH ---
Discharge Instructions Diet Discharge Diet: No restrictions Activity Discharge Activity: Return to Normal Activity Dressing / Incision Call your doctor if you observe: Fever of 101 or Higher, Inability to urinate and Inability to have a bowel movement Follow Up Care Please Follow Up With: Minal Morrison MD When: The office will be in touch with her. Test Results: Test results from this visit will be discussed in further detail at your follow-up appointment, if applicable. Discharge Plan Admission Attending Provider: Minal Morrison Primary Care Provider: Elliot Kang Chi Instructions Print Language: Greenlandic Discharge Orders/Prescriptions Prescriptions: Continued bupropion HCl [Wellbutrin XL] 150 mg tablet extended release 24 hr 150 mg PO QAM albuterol sulfate [Ventolin HFA] 90 mcg/actuation HFA aerosol inhaler 2 puff inhalation Q4H PRN (Reason: shortness of breath or wheezing) Qty: 18 6RF ipratropium-albuterol 0.5 mg-3 mg(2.5 mg base)/3 mL solution for nebulization 3 ml inhalation Q4-6H PRN magnesium aspart,citrate,oxide 400 mg magnesium capsule PO senna 8.6 mg capsule 8.6 mg PO QDAY PRN Trelegy Ellipta 200-62.5-25 mcg blister with device 1 inh inhalation DAILY Qty: 60 6RF ipratropium-albuterol 0.5 mg-3 mg(2.5 mg base)/3 mL solution for nebulization 3 ml inhalation Q4H PRN PRN (Reason: SOB &/OR WHEEZING) Qty: 180 6RF citalopram 40 MG tablet 40 mg PO DAILY cyanocobalamin (vitamin B-12) 1,000 MCG/ML solution 100 mcg IM Q30D cholecalciferol (vitamin D3) [Vitamin D3] 25 mcg (1,000 unit) Capsule 25 mcg PO DAILY levothyroxine 88 mcg tablet 88 mcg PO DAILY potassium chloride 20 mEq tablet extended release 20 meq PO DAILY ondansetron 4 mg tablet,disintegrating 4 mg PO Q8H PRN (Reason: nausea and vomiting) Qty: 10 0RF Patient Comments: HASNT NEEDED sodium bicarbonate 650 mg tablet 650 mg PO TID Stelara 90 mg/mL syringe 90 mg subcut Q56D hydroxyzine HCl 10 mg Tablet 10 mg PO TID PRN PRN (Reason: Anxiety/Agitation) 7 Days Qty: 21 0RF magnesium oxide 400 mg (241.3 mg magnesium) tablet 400 mg PO DAILY Eliquis 5 mg tablet 5 mg PO BID prednisone 20 mg tablet 40 mg PO DAILY Qty: 10 0RF cefdinir 300 mg capsule 300 mg PO BID Qty: 10 0RF doxycycline hyclate 100 mg tablet 100 mg PO BID Qty: 10 0RF Referrals / Follow Up: Elliot Kang Chi, MD [Primary Care Provider] - Disposition Disposition (needs filled in before D/C Order can be placed): DC/Tx to Another Type of HCF
--- NOTE | 2025-03-04 07:39 | OP.PCM_ITS ---
Operative Report (Standard) Operative Information Date of Procedure: 03/04/25 Pre-Operative Diagnosis: gross hematuria, urinary tract infection, kidney stones Post-Operative Diagnosis: same Surgery/Procedure Performed: cystoscopy, removal right ureteral stent java analyst: No Type of Anesthesia: MAC RN Documented Start/Stop Times: Operation Date: 03/04/25 07:30 Case Time Into Pre-Op 03/04/25 06:04 Out of Pre-Op 03/04/25 07:31 Anesthesia Start 03/04/25 07:33 Into Room 03/04/25 07:33 Procedure Start 03/04/25 07:48 Procedure End 03/04/25 07:51 Anesthesia End 03/04/25 07:56 Out of Room 03/04/25 07:56 Procedure Start Time: 07:48 Procedure Stop Time: 07:51 Select all DRAINS/GRAFTS/IMPLANTS that apply: None Estimated Blood Loss: <5cc Specimen collected: Yes Description of specimen(s) removed: urine culture Description of surgery: The patient is a 79-year-old female with right kidney stones and an indwelling ureteral stent with continued gross hematuria on her Eliquis. Her previous 3 urine cultures have all grown less than 25,000 colonies of bacteria or have been negative. She has known stone remaining within her right kidney. Her white blood count has been elevated and the decision was made to remove the stent in order to resume her Eliquis. Informed consent was obtained. The patient was taken to the operating room and placed on the operating room table. Anesthesia monitored the head, neck, airway, IV access and vital signs throughout the case. Once anesthesia was appropriate administered, she was plac ed into dorsolithotomy position was prepped and draped in usual sterile fashion. The cystoscope was inserted through the urethra into the urinary bladder. The urine was pink-tinged and sent for culture. The bladder was emptied, the right ureteral stent was clearly visualized. It was grasped with forceps and removed without difficulty. There was no clot identified within the urinary bladder and no active bleeding. There was irritation to the mucosa secondary to the ureteral stent. The bladder was then emptied and the cystoscope was removed. She was awakened and taken to the recovery room in good condition. There were no complications during the procedure. Surgical Findings: No clot, stent removed without incident, urine sent for culture Complications Complications: No Admit VTE Documentation VTE Present on Admission: Yes VTE Mechan Device Prophylaxis: SCD's VTE Pharm Prophylaxis ordered?: Yes
--- NOTE | 2025-03-04 08:04 | PCM.POST.ANE ---
Anesthesia: Postop Eval I Current Vital Signs Temperature: 97.4 F Pulse Rate: 82 Blood Pressure: 133/70 Respiratory Rate: 16 Pulse Ox: 100 Oxygen Delivery Method: Nasal Cannula Oxygen Flow Rate (L/min): 2 Assessment Airway patent: Yes Spontaneous unlabored respirations: Yes Mental status: Awake and Calm nausea: No Vomiting: No Anesthesia Complication: No Fluid Hydration Crystalloid volume administer (ml): 400 Total IV fluid infused: 400 Progress Note Anesthesia document: Postop Eval 1 completed: Yes
--- NOTE | 2025-03-04 16:39 | POSTOPAN2_ITS ---
Anesthesia Postop Eval I Sum Postop Eval Completion status Anesthesia document: Postop Eval 1 completed: Yes Anesthesia Postop Eval I Summary Anesthesia Postop Eval I Summary: Anesthesia Postop Eval I: Assessment Summary Airway patent Yes 03/04/25 08:04 STRATEGIC ACCOUNT EXECUTIVE.BOBBY Spontaneous unlabored Yes 03/04/25 08:04 STRATEGIC ACCOUNT EXECUTIVEBEAR respirations Mental status Awake,Calm 03/04/25 08:04 STRATEGIC ACCOUNT EXECUTIVE.BOBBY nausea No 03/04/25 08:04 STRATEGIC ACCOUNT EXECUTIVE.BOBBY Vomiting No 03/04/25 08:04 STRATEGIC ACCOUNT EXECUTIVEBEAR Anesthesia Postop Eval I: Fluid Summary Crystalloid volume administer 400 03/04/25 08:04 RITA (ml) Colloids volume administered ( ml) Blood Product volume administered (ml) Total IV fluid infused 400 03/04/25 08:04 STRATEGIC ACCOUNT EXECUTIVEBEAR Anesthesia Postop Eval I: Summary Notes Anesthesia Complication No 03/04/25 08:04 RITA Anesthesia Complication Comment: Post-operative progress note Anesthesia: Postop Eval II Evaluation Mental status: Awake and Calm Pain Level: 0 nausea: No Vomiting: No Complications Anesthesia Complication: No
--- NOTE | 2025-03-04 16:39 | PCM.POSTANE2 ---
Anesthesia Postop Eval I Sum Postop Eval Completion status Anesthesia document: Postop Eval 1 completed: Yes Anesthesia Postop Eval I Summary Anesthesia Postop Eval I Summary: Anesthesia Postop Eval I: Assessment Summary Airway patent Yes 03/04/25 08:04 FIRE FIGHTER CRASH FIRE AND RESCUE.BOBBY Spontaneous unlabored Yes 03/04/25 08:04 FIRE FIGHTER CRASH FIRE AND RESCUEBEAR respirations Mental status Awake,Calm 03/04/25 08:04 FIRE FIGHTER CRASH FIRE AND RESCUE.BOBBY nausea No 03/04/25 08:04 FIRE FIGHTER CRASH FIRE AND RESCUE.BOBBY Vomiting No 03/04/25 08:04 FIRE FIGHTER CRASH FIRE AND RESCUEBEAR Anesthesia Postop Eval I: Fluid Summary Crystalloid volume administer 400 03/04/25 08:04 RITA (ml) Colloids volume administered ( ml) Blood Product volume administered (ml) Total IV fluid infused 400 03/04/25 08:04 FIRE FIGHTER CRASH FIRE AND RESCUEBEAR Anesthesia Postop Eval I: Summary Notes Anesthesia Complication No 03/04/25 08:04 RITA Anesthesia Complication Comment: Post-operative progress note Anesthesia: Postop Eval II Evaluation Mental status: Awake and Calm Pain Level: 0 nausea: No Vomiting: No Complications Anesthesia Complication: No
== END 2025-03-04 08:29 | disposition other institution (70) ==
LOC: SDC 06:06 → AC 06:06
PROVIDERS: PCP Family Medicine Geriatric Medicine; Referring Provider Urology; Visit Provider Urology
PROC: 0TBB8ZX Excision of Bladder, Via Natural or Artificial Opening Endoscopic, Diagnostic (ICD-10-PCS; CPT 52310; principal; 2025-03-04 07:20)
DX: N20.0 Calculus of kidney (principal); R31.0 Gross hematuria; N39.0 Urinary tract infection, site not specified; Z79.01 Long term (current) use of anticoagulants; Z79.890 Hormone replacement therapy; Z79.899 Other long term (current) drug therapy; Z87.891 Personal history of nicotine dependence
CPT/HCPCS: 52310; 00910; 87086; J2405

== ENCOUNTER → 2025-03-10 | Outpatient (CLI) | payer MEDICARE, OTHER, SELFPAY ==
--- NOTE | 2025-03-10 09:57 | VDLE_ITS ---
Reason For Study Reason For Study: Follow Up DVT Lt GastrocV RIGHT LEFT CFV is compressible, spontaneous, phasic, competent GSV is normal. and demonstrates normal augmentation. CFV is compressible, spontaneous, phasic, competent, Procedure and demonstrates normal augmentation. This is a venous duplex using B-mode, color flow and FV is compressible, spontaneous, phasic, competent spectral Doppler. and demonstrates normal augmentation. Exam performed portable in patient room. POP V is compressible, spontaneous, phasic, competent A preliminary report was called and/or faxed to and demonstrates normal augmentation. Patients RN. T/P Trunk is compressible. PTV is compressible. LT PerV is compressible. Lt GastrocV is partially compressible, improvement from previous study on 02/10/25. VL/Venous Duplex US, Unilateral Interpretation Summary Acute deep vein thrombosis is noted in the left gastrocnemius vein. Partial resolution since prior study. Ordering Physician: Elliot Kang Chi Referring Physician: Elliot Kang Chi Performed By: Jackelyn Carlos RDCS, RVT
--- NOTE | 2025-03-10 09:59 | CT_ITS ---
PROCEDURE: CT CHEST, ABD, PELVIS WO CONT, 03/10/2025 REASON FOR EXAM: HX OF LUNG/ANAL CA TECHNIQUE: CT chest, abdomen, and pelvis was performed without IV contrast. Multiplanar reformats were generated. IV contrast: None. RADIATION DOSE SUMMARY: CTDlvol: 5.10+ 9.09 mGy DLP: 579.99 mGycm One or more dose reduction techniques were used (e.g., Automated exposure control, adjustment of the mA and/or kV according to patient size, use of iterative reconstruction technique). COMPARISON: CT abdomen and pelvis 02/17/2025 and prior, CT chest abdomen and pelvis 03/06/2024 and prior FINDINGS: Note that evaluation of the vasculature, jayashree, abdominopelvic viscera, and other soft tissues is limited in the absence of IV contrast. Heart/pericardium: Aortic annular calcification. Similar trace pericardial fluid.. Aorta: Mild atherosclerosis Pulmonary arteries: Normal in caliber. Lymph nodes: Subcarinal node, 11 mm short axis, previously subcentimeter.. Lungs/pleura: New irregular bilateral lower lobe airspace disease, [id number], appearing vaguely nodular. Similar 2 mm LEFT lower lobe micronodule (series 6 image 58). Mild emphysema.. Airways: Unremarkable. Chest wall: Unremarkable. Liver: Unremarkable. Spleen: Unremarkable. Gallbladder: Gallbladder not identified, likely cholecystectomy, however there are no visible surgical clips.. Pancreas: Unremarkable. Adrenals: Similar mild thickening of the adrenals without discrete nodule.. Kidneys: Redemonstrated nonobstructing bilateral intrarenal calculi. Tiny hypodensities too small to characterize, likely cysts. Bowel: Apparent ileocolic anastomosis. LEFT lower quadrant diverting ileostomy with small fat containing parastomal hernia. The colon upstream from the colostomy demonstrates moderate colonic stool burden.. Grossly similar ill-defined marked soft tissue thickening in the presacral region, presumably posttreatment related. Appendix not identified. Lymph nodes: Grossly unremarkable.. Vasculature: Moderate atherosclerosis. Peritoneum: Grossly unremarkable. Bladder: Underdistended and suboptimally evaluated, grossly unremarkable. Reproductive Organs: Hysterectomy. Body Wall: As above. Operative changes.. Musculoskeletal: Degenerative changes along the pubic symphysis. Sclerotic presumed bone islands are grossly unchanged. CT/CT Chest, Abd, Pelvis WO Cont IMPRESSION: 1. Findings are compatible with bilateral lower lobe pneumonia. Given nodular components and the context, recommend CT chest in 3 months to document resolution. 2. New mild mediastinal lymphadenopathy, nonspecific and potentially reactive t o the above. Attention on above recommended follow-up, which would ideally include IV contrast. 3. No definite evidence of metastatic disease within the abdomen/pelvis, noting that the lack of IV contrast limits sensitivity. Grossly similar presumed posttreatment changes in the presacral region; attenti on on follow-up. 4. Additional description as above. Reading Location: [id number]
== END | disposition home or self-care (01) ==
LOC: CT 09:56
PROVIDERS: PCP Family Medicine Geriatric Medicine; Referring Provider Internal Medicine Medical Oncology; Visit Provider Internal Medicine Medical Oncology
DX: I82.462 Acute embolism and thrombosis of left calf muscular vein (principal); C34.12 Malignant neoplasm of upper lobe, left bronchus or lung; Z85.048 Personal history of other malignant neoplasm of rectum, rectosigmoid junction, and anus
CPT/HCPCS: 71250; 74176; 93971

== ENCOUNTER → 2025-03-12 | Outpatient (CLI) | payer MEDICARE, OTHER, SELFPAY | END | disposition home or self-care (01) | PROVIDERS: PCP Family Medicine Geriatric Medicine; Referring Provider Family Medicine Geriatric Medicine; Visit Provider Family Medicine Geriatric Medicine | DX: N20.0 Calculus of kidney (principal); R31.9 Hematuria, unspecified ==

== ENCOUNTER 2025-03-13 03:19 | Inpatient (IN) | payer MEDICARE, OTHER, SELFPAY ==
[2025-03-13] VITALS (44 sets, daily range): BP systolic 74–136; BP diastolic 43–96; PULSE 69–104; RESP 14–20; TEMP 36.1–37.7; O2SAT 94–100; BMI 23.3
--- NOTE | 2025-03-13 03:24 | EX.ED.DYSGE1 ---
HPI History of Present Illness Chief Complaint: Complaint Informant: patient and other (Nursing staff) Narrative Narrative: 79-year-old female brought to the ER from TCU because of hematuria and around 3 AM she developed hypotension with systolics at 69. She has felt fatigued and malaise but she denies any lightheadedness or syncope. She had a right ureteral stent placed about a month ago and then it was complicated by gross hematuria on Eliquis which they discontinued, then about a week or so ago she had the stent removed so she could continue her Eliquis, but within the last 24 hours or so she has developed gross hematuria again. TCU staff states they have been doing CBI but even with that they are still having to do manual irrigation to remove many clots that block the catheter. [facility] Medical History On home O2 Community acquired pneumonia Hematuria UTI (urinary tract infection) Dyspnea Ureteral stent present Kidney stone Hypothyroidism Depression 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 calculus half-way current use of immunosuppressive drug Crohn's disease Diarrhea Diarrhea Wears hearing aid Wears dentures Cancer Anxiety Thyroid disease Walker as ambulation aid Arthritis Easy bruising TIA (transient ischemic attack) Former smoker COPD (chronic obstructive pulmonary disease) Shortness of breath on exertion History of pain when walking History of echocardiogram History of stress test History of fracture of patella Stage 3b chronic kidney disease (CKD) Osteoporosis Urinary retention Rectal cancer Hydronephrosis Lung cancer Rectal cancer Decreased appetite Abdominal bloating COPD (chronic obstructive pulmonary disease) TIA (transient ischemic attack) Nicotine abuse Depression Anxiety Hypothyroidism COPD exacerbation Chronic bronchitis 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 calculus Hydronephrosis, right Filling defect on imaging study History of rectal cancer Home Medications ?Medication ?Instructions ?Recorded ?Last Taken ?Type bupropion HCl 150 mg 24 hr tablet, 150 mg PO QAM quit smoking 11/28/18 03/03/25 History extended release (Wellbutrin XL) citalopram 40 mg tablet 40 mg PO DAILY Anxiety 04/24/19 03/03/25 History cyanocobalamin (vitamin B-12) 100 mcg IM Q30D Supplement 10/08/19 01/22/25 History 1,000 mcg/mL injection solution cholecalciferol (vitamin D3) 25 25 mcg PO DAILY Supplement 10/09/21 03/03/25 History mcg (1,000 unit) capsule (Vitamin D3) levothyroxine 88 mcg tablet 88 mcg PO DAILY thyroid 12/14/23 03/04/25 History albuterol sulfate 90 mcg/actuation 2 puff inhalation Q4H PRN 05/24/24 01/16/25 Rx aerosol inhaler (Ventolin HFA) shortness of breath or wheezing #18 grams potassium chloride 20 mEq 20 meq PO DAILY supplement 12/21/24 02/22/25 History tablet,extended release sodium bicarbonate 650 mg tablet 650 mg PO TID supplement 01/06/25 03/03/25 History ondansetron 4 mg disintegrating 4 mg PO Q8H PRN nausea and 01/16/25 Unknown Rx tablet vomiting #10 tabs ustekinumab 90 mg/mL subcutaneous 90 mg subcut Q56D unknown 01/31/25 01/30/25 History syringe (Stelara) hydroxyzine HCl 10 mg tablet 10 mg PO TID PRN PRN 02/07/25 02/21/25 Rx Anxiety/Agitation 7 days #21 tabs apixaban 5 mg tablet (Eliquis) 5 mg PO BID blood thinner 02/20/25 02/28/25 History magnesium oxide 400 mg (241.3 mg 400 mg PO DAILY supplement 02/20/25 03/03/25 History magnesium) tablet cefdinir 300 mg capsule 300 mg PO BID pneumonia #10 caps 02/22/25 02/22/25 Rx fluticasone fur. 200 mcg-umeclid 1 inh inhalation DAILY #60 ea 02/24/25 Unknown Rx 62.5 mcg-vilant 25 mcg inhalat.powder (Trelegy Ellipta) ipratropium 0.5 mg-albuterol 3 mg 3 ml inhalation Q4-6H PRN 02/24/25 Unknown History (2.5 mg base)/3 mL nebulization shortness of breath soln ipratropium 0.5 mg-albuterol 3 mg 3 ml inhalation Q4H PRN PRN SOB 02/24/25 Unknown Rx (2.5 mg base)/3 mL nebulization &/OR WHEEZING #180 mL soln Allergy/AdvReac Type Severity Reaction Status Date / Time levofloxacin Allergy Mild Rash Verified 03/13/25 03:26 ciprofloxacin HCl (From Allergy Rash Verified 03/13/25 03:26 Cipro) Penicillins Allergy Hives Verified 03/13/25 03:26 codeine AdvReac makes her Verified 03/13/25 03:26 feel weird magnesium citrate AdvReac Nausea Verified 03/13/25 03:26 NSAIDS (Non-Steroidal AdvReac kidney Verified 03/13/25 03:26 Anti-Inflamma damage r/t long-term usage advised not to use Family History Father Heart disease Mother Heart disease Sister Heart disease Diabetes Other Crohn's disease Surgical History S/P lobectomy of lung S/P ureteral stent placement History of cystoscopy History of colonoscopy (~10/2019) History of colostomy History of cholecystectomy History of bowel resection History of hysterectomy History of delivery Social History household members: none Smoking Status: Former smoker Tobacco: How many years used: 53 how long ago did patient quit smoking: Quit 2-5 years prior. second hand exposure: No alcohol intake: never substance use type: does not use caffeine: No what type of physical activity do you participate in: none ROS ROS ED Constitutional Constitutional ED: Reports fatigue; Denies chills or fever(s) Eyes Eyes: Denies change in vision or diplopia ENT ENT ED: Denies rhinorrhea or sore throat Cardiovascular Cardiovascular: Denies chest pain or palpitations Respiratory/Chest Respiratory/Chest: Denies cough or dyspnea Gastrointestinal Gastrointestinal: Denies abdominal pain, diarrhea, nausea or vomiting Genitourinary Genitourinary ED: Reports hematuria; Denies dysuria Musculoskeletal Musculoskeletal: Denies back pain or neck pain Integumentary Denies abscess or rash Neurologic Neurologic: Denies headache(s), paresthesias or weakness Psychiatric Psychiatric: Denies anxiety or suicidal thoughts EXAM Physical Exam Const Vital Signs: 03/13/25 03:20 03/13/25 04:19 03/13/25 04:39 Temperature 98.5 F 98.3 F Temperature Source Oral Pulse Rate 83 83 88 Respiratory Rate 14 14 17 Blood Pressure 116/66 95/58 L 106/55 L Blood Pressure Mean 82 70 72 Pulse Ox 97 98 98 Oxygen Delivery Method Nasal Cannula Nasal Cannula Oxygen Flow Rate (L/min) 2 2 03/13/25 05:00 03/13/25 06:00 Temperature Temperature Source Pulse Rate 91 82 Respiratory Rate 15 16 Blood Pressure 89/53 L 89/52 L Blood Pressure Mean 65 64 Pulse Ox 95 97 Oxygen Delivery Method Room Air Nasal Cannula Oxygen Flow Rate (L/min) 2 Positive well nourished and well developed General Appearance ED: well developed and NAD HEENT Reports moist mucous membranes normocephalic and atraumatic Eyes PERRL and EOMs intact bilaterally Neck full ROM and supple Resp normal respiratory effort and clear to auscultation bilaterally Cardio regular rate, regular rhythm and no murmurs GI non-tender and non-distended Auscultation: normoactive bowel sounds Palpation: soft Narrative: Gallagher catheter in place, gross hematuria with clots within the Gallagher Back/Spine no CVA tenderness General Back: other FROM Extremity normal to inspection General Extremety ED: Negative for edema, pulses abnormal or tenderness General Extremity: Negative for edema or pulses abnormal Neuro oriented x3, CN's II-XII intact bilaterally and no sensory deficits noted Sensorium / Orientation: awake and alert Motor Exam: general weakness Psych mental status grossly normal Skin no rashes or lesions noted and no wounds MDM MDM MDM Narrative Medical decision making narrative: Upon checking the patient's initial vital signs here, her blood pressure is 116/66 and her heart rate is 83, and she is well-appearing keenly alert. We will continue to watch this, give her some IV fluids, and check her blood counts in the meantime while still doing CBI. Blood counts are lower, but hemoglobin at 7.7 does not need emergent transfusion, although she is still bleeding. After 500cc of the IV fluid her blood pressure is in the 90s. She is not symptomatic with that. She knows that she has not had her anticoagulant for over 24 hours and the last dose was the night before. Discussed with Dr. Morrison, she will admit and asks hospitalist to consult, request that we perform a CT flank to verify position of the known uroliths/nephroliths, and to go ahead and start a unit of blood which the patient consents to. Planning on urologic surgery/uroscopy today. Discussed with family as well. I reviewed the abdominal CT images and result which I agree with. No hydronephrosis or ureterolithiasis at this time, but hyperdense material in bladder and unable to rule out active extravasation. I made urology aware of the findings. As a result, they are taking pt directly to the OR from the ER. History & Record Review Additional record(s) reviewed:: Prior inpatient record (urology op reports) Lab Data Attestation: I reviewed the patient's lab results. Labs: Laboratory Results - last 24 hr 03/13/25 03/13/25 03:33 05:15 WBC 16.4 H RBC 2.55 L Hgb 7.7 L Hct 24.4 L MCV 95.7 MCH 30.2 MCHC 31.6 L RDW Std Deviation 49.5 H RDW Coeff of Osmar 14.2 Plt Count 214 MPV 8.9 Immature Gran % (Auto) 0.500 Neut % (Auto) 74.6 H Lymph % (Auto) 16.8 L [place] % (Auto) 7.1 Eos % (Auto) 0.9 Baso % (Auto) 0.1 Absolute Neuts (auto) 12.2 H Absolute Lymphs (auto) 2.76 Nucleated RBC % 0 PT 14.5 INR 1.1 APTT 42.4 H Sodium 136 Potassium 4.2 Chloride 105 Carbon Dioxide 20.9 L Anion Gap 10 BUN 22 H Creatinine 1.65 H Estim Creat Clear Calc 20.86 L Est GFR (MDRD) Non-Af 31 L BUN/Creatinine Ratio 13.1 Glucose 113 H Calcium 8.0 Blood Type A POSITIVE Antibody Screen NEGATIVE Crossmatch See Detail Radiography Diagnostic Testing: Clinical Impression(s) from Imaging Studies Abdomen/Pelvis CT 03/13/25 04:26 IMPRESSION: Interval development of high density material within the urinary bladder consistent with hemorrhage. Active extravasation can not be ruled out. A new Gallagher catheter is present with the urinary bladder. Gas is also present within urinary bladder, new since prior, likely due to catheter insertion. Acute fracture involving the left acetabulum anteriorly.. This was seen on pelvic CT dated 03/10/2025. Bibasilar pulmonary consolidations. The left lower lobe consolidation is appears spiculated. Malignancy is a possibility. Recommend short-term follow-up, PET-CT versus tissue sampling. Other findings as above. Reading Location: [id number] Management Discussion w/another healthcare provider: Hospitalist and Blanker Operator (urology Dr. Morrison) Critical Care Time Critical Care Time: Yes Critical care time (excluding procedures): 30-74 minutes (36 min), Including time spent:, Discussing w/Patient &/or Family/Cord Maker, Discussing w/Consultants, Arranging Admission or Transfer and Performing Direct Patient Care at Bedside Discharge Plan Dx/Rx/DC Orders Clinical Impression: Hematuria, 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 calculus, ABLA (acute blood loss anemia), Transient hypotension Disposition Disposition: Acute Care Hospital [facility] Discharge Date/Time: 03/13/25 07:05
[2025-03-13] MEDS: 0.9% Normal Saline (1000mL) 1,000 ML 999 ML IV ×2 (03:36→06:04)
[2025-03-13 03:38] LABS: Absolute Lymphocyte Count 2.76 X10^3/uL (0.83-4.51); Absolute Neutrophil Count 12.2 X10^3/uL (2.0-7.7); Basophil# 0.02 X10^3/uL; Basophil% 0.1 % (0-1); Eosinophil# 0.15 X10^3/uL; Eosinophils% 0.9 % (0-5); Hematocrit 24.4 % (37-47); Hemoglobin 7.7 g/dL (12.0-15.0); Lymphocyte # 2.76 X10^3/ul (0.83-4.51); Lymphocyte % 16.8 % (19-41); Mean Corp Hgb Conc 31.6 g/dL (32-36); Mean Corpuscular Hgb 30.2 pg (27.0-32.0); Mean Corpuscular Volume 95.7 fL (81-99); Mean Platelet Vol. 8.9 fl (6.2-12.0); Monocyte# 1.16 X10^3/uL; Monocyte% 7.1 % (0-10); NRBC Flagged by Analyzer 0 % (0-5); Neutrophil % 74.6 % (47-70); Platelet Count 214 K/mm3 (150-450); RBC Distribution Width CV 14.2 % (11.6-14.6); RBC Distribution Width SD 49.5 fl (35.1-43.9); Red Blood Count 2.55 M/mm3 (4.2-5.4); White Blood Count 16.4 K/mm3 (4.4-11.0)
[2025-03-13 03:48] LABS: International Normalized Ratio 1.1; Prothrombin Time (Protime)PT. 14.5 SECONDS (11.7-14.9)
[2025-03-13 03:49] LABS: Partial Thromboplast Time 42.4 Seconds (24.1-36.2)
[2025-03-13 03:55] LABS: Anion Gap 10 (5-15); BUN 22 mg/dL (4-19); BUN/Creat Ratio 13.1 RATIO (10-20); Carbon Dioxide 20.9 mmol/L (21.0-32.0); Chloride 105 mmol/L (98-108); Creatinine, Serum 1.65 mg/dL (0.70-1.20); EST Glomerular Filtration Rate 31 (>60); Estimated Creatinine Clearance 20.86 ml/min (50-250); Glucose 113 mg/dL (70-99); Potassium 4.2 mmol/L (3.3-5.1); Sodium Level 136 mmol/L (133-145)
--- NOTE | 2025-03-13 04:26 | CT_ITS ---
PROCEDURE: ABDOMEN/PELVIS WITHOUT CONT 03/13/2025 REASON FOR EXAM: HEMATURIA TECHNIQUE: Abdomen and pelvis CT without intravenous contrast. Noncontrast technique limits evaluation of the abdominal and pelvic viscera. Coronal and Sagittal reconstruction series were provided. One or more dose reduction techniques were used (e.g., Automated exposure control, adjustment of the mA and/or kV according to patient size, use of iterative reconstruction technique). PATIENT PREPARATION: Per protocol ORAL CONTRAST TYPE: None. COMPARISON: CT abdomen/pelvis dated 03/10/2025. FINDINGS: Bibasilar consolidations are present, [id number], without improvement since prior examination. Left basilar consolidation appears spiculated. Small pericardial effusion is present, grossly similar to prior examination. There is no free air within the abdomen or pelvis. The unenhanced liver, spleen, adrenals, pancreas are within normal limits. Bilateral nonobstructing renal calculi/renal calcifications remain. There is no hydronephrosis bilaterally. A new catheter is present within a distended urinary bladder. High-density material noted within the urinary bladder consistent with hemorrhage. Active hemorrhage can not be ruled out. Gas present within the urinary bladder, likely due to instrumentation. Left lower pelvic wall ostomy is present. Gas and stool seen within the colon. Right lower quadrant bowel anastomosis is present. There is no bowel obstruction. No abnormal free fluid is seen within the abdomen or pelvis. Atheromatous calcification seen within the aorta and its branches. Acute fracture identified within the left acetabulum anteriorly, also seen on comparison. This is best seen on image 115/155. Diffuse osteopenia is present. CT/Abdomen/Pelvis without Cont IMPRESSION: Interval development of high density material within the urinary bladder consis tent with hemorrhage. Active extravasation can not be ruled out. A new Gallagher catheter is present with the urinary bladder. Gas is also present within urinary bladder, new since prior, likely due to cath eter insertion. Acute fracture involving the left acetabulum anteriorly.. This was seen on pel todd CT dated 03/10/2025. Bibasilar pulmonary consolidations. The left lower lobe consolidation is appea rs spiculated. Malignancy is a possibility. Recommend short-term follow-up, PET-CT versus tissue sampling. Other findings as above. Reading Location: [id number]
--- NOTE | 2025-03-13 06:21 | PCM.CONS.GEN ---
Assessment & Plan Assessment/Plan (1) Acute cystitis with hematuria: (2) Leukocytosis: QUALIFIERS: Leukocytosis type: unspecified Qualified Code(s): D72.829 - Elevated white blood cell count, unspecified (3) Transient hypotension: (4) ABLA (acute blood loss anemia): (5) Adverse drug reaction: QUALIFIERS: Encounter type: initial encounter Qualified Code(s): T50.905A - Adverse effect of unspecified drugs, medicaments and biological substances, initial encounter (6) Left leg DVT: QUALIFIERS: Affected thrombotic vein of extremity: unspecified vein of extremity Chronicity: unspecified Qualified Code(s): I82.402 - Acute embolism and thrombosis of unspecified deep veins of left lower extremity (7) Adenocarcinoma of lung: QUALIFIERS: Laterality: left Qualified Code(s): C34.92 - Malignant neoplasm of unspecified part of left bronchus or lung PLAN: Plan 1. Suspected UTI with Leukocytosis of 16.4 K present on admission complicated by gross Hematuria likely due to Adverse Drug Reaction to apixaban with hemoglobin of 7.7 g/dL present on admission with associated Transient Hypotension after recent Right hydronephrosis with ureteral stent placement followed by subsequent stent removal with urologist requesting hospitalist consultation for medical management - Admit to PCU as per urology recommendations. Start IV aztreonam and await culture and sensitivity data. Give Balfaxar as the close is possible usually have to potentially stanch bleeding due to apixaban. 2. Recent admission here from February 21, 2025 to February 22, 2025 for treatment of community-acquired pneumonia complicated by mild acute exacerbation of COPD in the setting of recent history of 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 and renal stones with hydronephrosis; s/p ureteral stent by Dr. Morrison of urology on February 06, 2025 with patient evident underwent cystoscopy, laser lithotripsy, stone basket extraction and and 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 stent exchange with subsequent stent removal on Wednesday, February 26, 2025; with patient then apparently having restarted on her apixaban who was then sent to TCU for rehabilitation complicating #1 - Noted. 3. History of lung cancer; s/p ALBERTO lobectomy with chest CT without contrast this admission revealing Left lower lobe consolidation that appears spiculated consistent with malignancy with basilar pulmonary consolidations compounding #1 & #2 - Noted with radiology recommending PET/CT when patient is more stable. 4. History of LLE DVT; on apixaban adding to the medical complexity of #1 - #3 - We we will hold apixaban until further notice. Patient was already set to have IVC filter placement later today if okay with Dr. Morrison. 5. Remote history of tobacco abuse x ~53 years (quit ~2-5 years ago); with subsequent COPD plus chronic hypoxic respiratory failure on 2L NC adding to the burden of disease outlined from #1 - #4 - Stable with no evidence of acute flare at this time. Continue scheduled and as needed nebulizers as previous. 6. CKD; stage IIIb; in the setting of a known history of urinary retention - Stable. Check renal indices daily to follow trend. 7. Crohn's disease; on Stelara - Stable no evidence of acute flare at this time. 8. Hypothyroidism; on levothyroxine - Maintain current thyroid replacement when patient is cleared for oral intake after urologic procedure. 9. Depression with anxiety; on citalopram, bupropion and as needed hydroxyzine 3 times daily - Restart home regimen after urologic procedure if okay with Dr. Morrison. 10. History of TIA - Noted with no evidence of recurrence at this time. 11. History of rectal cancer; s/p colostomy - Noted. 12. History of cholecystectomy - Noted. 13. History of hysterectomy - Noted. 14. Osteoporosis - Stable. 15. OA - Stable. 16. DVT prophylaxis - Start RLE SCD. Chemoprophylaxis contraindicated in light of #1. And recent LLE DVT noted. Total time: Approximately (but not less than) 60 minutes. HPI Consult Data Date of Consult: 03/13/25 HPI Narrative Reason for Consultation: Medical management consult for pt with urinary tract hemorrhage on apixaban HPI Narrative: JOSE DE JESUS JOHNSON, is a 79 F with a past medical history of hypothyroidism; on levothyroxine, remote history of tobacco abuse x ~53 years (quit ~2-5 years ago); with subsequent COPD, chronic hypoxic respiratory failure on 2L NC, history of lung cancer; s/p ALBERTO lobectomy with chest CT without contrast this admission revealing Left lower lobe consolidation that appears spiculated consistent with malignancy with basilar pulmonary consolidations, history of LLE DVT; on apixaban, history of TIA, history of urinary retention, CKD; stage IIIb, Crohn's disease; on Stelara, history of rectal cancer; s/p colostomy, history of cholecystectomy, history of hysterectomy, depression with anxiety; on citalopram, bupropion and as needed hydroxyzine 3 times daily, osteoporosis, OA and recent admission here from February 21, 2025 to February 22, 2025 for treatment of community-acquired pneumonia complicated by mild acute exacerbation of COPD in the setting of recent history of 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 and renal stones with hydronephrosis; s/p ureteral stent by Dr. Morrison of urology on February 06, 2025 with patient evident underwent cystoscopy, laser lithotripsy, stone basket extraction and and 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 stent exchange with subsequent stent removal on Wednesday, February 26, 2025; with patient then apparently having restarted on her apixaban who was then sent to TCU for rehabilitation when she suddenly developed gross hematuria with a systolic blood pressure of ~69 mmHg prompting her to be transferred to the ER for further evaluation and treatment. Ms. Johnson reports her symptoms began at ~3 AM when she was noted to have significant hematuria. She admits to fatigue and malaise but she denies lightheadedness, presyncope or syncope. According to the records TCU staff had been doing CBI but they were still having to do manual irrigation to remove many clots that blocked her catheter. There was no related fever, chills, changes in vision, runny nose, sore throat, chest pain, palpitations, heart racing, shortness of breath, cough, abdominal pain, diarrhea, nausea, vomiting, back pain, headache or rash. In the ER she was noted to have suspected UTI with Leukocytosis of 16.4 K present on admission complicated by gross Hematuria likely due to Adverse Drug Reaction to apixaban with hemoglobin of 7.7 g deciliter present on admission after recent Right hydronephrosis with ureteral stent placement followed by subsequent stent removal with urologist requesting hospitalist consultation for medical management. Patient was already set to receive blood transfusion before medical consultation was placed with additional orders placed for IV aztreonam given patient's listed allergies to quinolones (rash) and penicillins (hives). Unfortunately, this institution does not carry the reversal agent for apixaban but I spoke with the pharmacist on-call we will administer Balfaxar in an effort to staunch the bleeding medically until culprit lesion can identified and cauterized surgically. Thank you for allowing us to participate in the care of your patient. 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 Crohn's disease Diarrhea Diarrhea Wears hearing aid Wears dentures Cancer Anxiety Thyroid disease Walker as ambulation aid Arthritis Easy bruising TIA (transient ischemic attack) Former smoker COPD (chronic obstructive pulmonary disease) Shortness of breath on exertion History of pain when walking History of echocardiogram History of stress test History of fracture of patella Stage 3b chronic kidney disease (CKD) Osteoporosis Urinary retention Rectal cancer Hydronephrosis Lung cancer Rectal cancer Decreased appetite Abdominal bloating COPD (chronic obstructive pulmonary disease) TIA (transient ischemic attack) Nicotine abuse Depression Anxiety Hypothyroidism COPD exacerbation Chronic bronchitis 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 calculus Hydronephrosis, right Filling defect on imaging study History of rectal cancer Home Medications ?Medication ?Instructions ?Recorded ?Last Taken ?Type bupropion HCl 150 mg 24 hr tablet, 150 mg PO QAM quit smoking 11/28/18 03/03/25 History extended release (Wellbutrin XL) citalopram 40 mg tablet 40 mg PO DAILY Anxiety 04/24/19 03/03/25 History cyanocobalamin (vitamin B-12) 100 mcg IM Q30D Supplement 10/08/19 01/22/25 History 1,000 mcg/mL injection solution cholecalciferol (vitamin D3) 25 25 mcg PO DAILY Supplement 10/09/21 03/03/25 History mcg (1,000 unit) capsule (Vitamin D3) levothyroxine 88 mcg tablet 88 mcg PO DAILY thyroid 12/14/23 03/04/25 History albuterol sulfate 90 mcg/actuation 2 puff inhalation Q4H PRN 05/24/24 01/16/25 Rx aerosol inhaler (Ventolin HFA) shortness of breath or wheezing #18 grams potassium chloride 20 mEq 20 meq PO DAILY supplement 12/21/24 02/22/25 History tablet,extended release sodium bicarbonate 650 mg tablet 650 mg PO TID supplement 01/06/25 03/03/25 History ondansetron 4 mg disintegrating 4 mg PO Q8H PRN nausea and 01/16/25 Unknown Rx tablet vomiting #10 tabs ustekinumab 90 mg/mL subcutaneous 90 mg subcut Q56D unknown 01/31/25 01/30/25 History syringe (Stelara) hydroxyzine HCl 10 mg tablet 10 mg PO TID PRN PRN 02/07/25 02/21/25 Rx Anxiety/Agitation 7 days #21 tabs apixaban 5 mg tablet (Eliquis) 5 mg PO BID blood thinner 02/20/25 02/28/25 History magnesium oxide 400 mg (241.3 mg 400 mg PO DAILY supplement 02/20/25 03/03/25 History magnesium) tablet cefdinir 300 mg capsule 300 mg PO BID pneumonia #10 caps 02/22/25 02/22/25 Rx fluticasone fur. 200 mcg-umeclid 1 inh inhalation DAILY #60 ea 02/24/25 Unknown Rx 62.5 mcg-vilant 25 mcg inhalat.powder (Trelegy Ellipta) ipratropium 0.5 mg-albuterol 3 mg 3 ml inhalation Q4-6H PRN 02/24/25 Unknown History (2.5 mg base)/3 mL nebulization shortness of breath soln ipratropium 0.5 mg-albuterol 3 mg 3 ml inhalation Q4H PRN PRN SOB 02/24/25 Unknown Rx (2.5 mg base)/3 mL nebulization &/OR WHEEZING #180 mL soln Allergy/AdvReac Type Severity Reaction Status Date / Time levofloxacin Allergy Mild Rash Verified 03/13/25 03:26 ciprofloxacin HCl (From Allergy Rash Verified 03/13/25 03:26 Cipro) Penicillins Allergy Hives Verified 03/13/25 03:26 codeine AdvReac makes her Verified 03/13/25 03:26 feel weird magnesium citrate AdvReac Nausea Verified 03/13/25 03:26 NSAIDS (Non-Steroidal AdvReac kidney Verified 03/13/25 03:26 Anti-Inflamma damage r/t long-term usage advised not to use Family History Father Heart disease Mother Heart disease Sister Heart disease Diabetes Other Crohn's disease Surgical History S/P lobectomy of lung S/P ureteral stent placement History of cystoscopy History of colonoscopy (~10/2019) History of colostomy History of cholecystectomy History of bowel resection History of hysterectomy History of delivery Social History household members: none Smoking Status: Former smoker Tobacco: How many years used: 53 how long ago did patient quit smoking: Quit 2-5 years prior. second hand exposure: No alcohol intake: never substance use type: does not use caffeine: No what type of physical activity do you participate in: none ROS ROS Narrative Review of Systems: Constitutional: Patient admits to fatigue but she denies fever or chills. Eyes: Patient denies changes in vision or discharge from eyes. ENT: Patient denies runny nose, sore throat or ear pain. Resp: Patient denies shortness of breath or cough. CV: Patient denies chest pain, palpitations, heart racing or lower extremity edema. GI: Patient denies abdominal pain, nausea, vomiting, diarrhea or constipation. : Patient admits to gross hematuria while on apixaban as per HPI. She denies dysuria. MSK: Patient denies arthralgias or myalgias. Skin: Patient denies rash, abscess, wounds or jaundice. Psych: Patient denies symptoms of uncontrolled depression or anxiety. Neuro: Patient denies headache, paresthesias or focal neurologic deficits. Allergy: Patient denies lip swelling, tongue swelling or urticaria. Hematology: Patient was noted to have severe gross hematuria while on apixaban as per HPI. Endocrinology: Patient denies polyuria, polydipsia, polyphagia or heat/cold intolerance. 14 point ROS otherwise negative save for positives noted above in HPI. Physical Exam Const alert, oriented x3, no apparent distress and average body habitus Constitutional Narrative: Patient is chronically ill but nontoxic appearance. General Appearance: cooperative HEENT normocephalic, head/scalp atraumatic, hearing grossly normal bilaterally and moist oral mucous membranes Eyes PERRL, EOMs intact bilaterally and conjunctivae normal Neck no lymphadenopathy and supple Resp normal respiratory effort, no retractions, no use of accessory muscles and clear to auscultation bilaterally Cardio regular rate and regular rhythm GI normal to inspection, nondistended, normoactive bowel sounds, soft to palpation, non-tender and non-distended Extremity normal to inspection, full ROM and no clubbing, cyanosis or edema Skin Skin Narrative: Patient has no evidence of rash, abscess, wounds or jaundice. Neuro oriented x3, CN's II-XII intact bilaterally, moves all extremities, no focal motor deficits and no sensory deficits noted Sensorium / Orientation: awake, alert, oriented to person, oriented to place and oriented to time Speech: speech normal Psych affect normal Medical Records Data Attestation: I reviewed the patient's medical records Lab / Micro Data Attestation: I reviewed the patient's lab results. 03/13/25 03:33 03/13/25 03:33 Labs: Laboratory Results - last 24 hr 03/13/25 03:33: WBC 16.4 H, RBC 2.55 L, Hgb 7.7 L, Hct 24.4 L, MCV 95.7, MCH 30.2, MCHC 31.6 L, RDW Std Deviation 49.5 H, RDW Coeff of Osmar 14.2, Plt Count 214, MPV 8.9, Immature Gran % (Auto) 0.500, Neut % (Auto) 74.6 H, Lymph % (Auto) 16.8 L, [place] % (Auto) 7.1, Eos % (Auto) 0.9, Baso % (Auto) 0.1, Absolute Neuts (auto) 12.2 H, Absolute Lymphs (auto) 2.76, Nucleated RBC % 0, PT 14.5, INR 1.1, APTT 42.4 H, Sodium 136, Potassium 4.2, Chloride 105, Carbon Dioxide 20.9 L, Anion Gap 10, BUN 22 H, Creatinine 1.65 H, Estim Creat Clear Calc 20.86 L, Est GFR (MDRD) Non-Af 31 L, BUN/Creatinine Ratio 13.1, Glucose 113 H, Calcium 8.0 03/13/25 05:15: Crossmatch See Detail Imaging Radiology Impression Abdomen/Pelvis CT 03/13/25 04:26 IMPRESSION: Interval development of high density material within the urinary bladder consistent with hemorrhage. Active extravasation can not be ruled out. A new Gallagher catheter is present with the urinary bladder. Gas is also present within urinary bladder, new since prior, likely due to catheter insertion. Acute fracture involving the left acetabulum anteriorly.. This was seen on pelvic CT dated 03/10/2025. Bibasilar pulmonary consolidations. The left lower lobe consolidation is appears spiculated. Malignancy is a possibility. Recommend short-term follow-up, PET-CT versus tissue sampling. Other findings as above. Reading Location: [id number] Charges/Coding Multi Select Codes Visit Charges Office Visit/Consults: 81307 IP Consult L4
--- NOTE | 2025-03-13 07:38 | PRE.ANES_ITS ---
ASA Classification* ASA Classification ASA Classification: 4 and E Assessment & Plan Anesthesia* Anesthesia Assessment Anesthesia Assessment: Discussed sedation and/or anesthesia options, risks, benefits, and alternatives with patient/parents/legal guardian/POA. Questions invited. The patient/parents/legal guardian/POA seems to understand and agrees to proceed with anesthesia plan. Reviewed the physical assessment, medical history, allergy history and patient home medications list prior to surgery/procedure/anesthetic and documented any changes. Performed airway and anesthesia risk assessments. Anesthesia Type Anesthesia Type: General (lma post op intubation discussed) History Source History Obtained from:: Patient and Chart Anesthesia Focused Assessment* Temperature: 99.8 F Pulse Rate: 104 Blood Pressure: 106/51 Respiratory Rate: 18 Pulse Ox: 94 Oxygen Delivery Method: Nasal Cannula Oxygen Flow Rate (L/min): 4 Airway Assessment Mouth opens: >3 cm Mallampati Score: I Teeth Condition: Dentures Comment: full upper and lower out Focused Labs Anesthesia Preop lab: CBC WBC 16.4 K/mm3 (4.4-11.0) H 03/13/25 03: 5 RBC 2.55 M/mm3 (4.2-5.4) L 03/13/25 03:03/13/25 Hgb 7.7 g/dL (12.0-15.0) L 03/13/25 03:03/13/25 Hct 24.4 % (37-47) L 03/13/25 03:03/13/25 Plt Count 214 K/mm3 (150-450) 03/13/25 03:33 03/13/25 CHEMISTRY Potassium 4.2 mmol/L (3.3-5.1) 03/13/25 03:33 03/13/25 Sodium 136 mmol/L (133-145) 03/13/25 03:33 03/13/25 Magnesium 1.3 mg/dL (1.5-2.2) L 02/10/25 13:43 02/10/25 Phosphorus 3.1 mg/dL (2.5-4.9) 09/11/24 13:26 09/11/24 BUN 22 mg/dL (4-19) H 03/13/25 03:33 03/13/25 Creatinine 1.65 mg/dL (0.70-1.20) H 03/13/25 03:33 Glucose 113 mg/dL (70-99) H 03/13/25 03:33 03/13/25 POC Glucose 88 mg/dL (70-110) 02/05/18 12:01 02/05/18 TSH 0.400 uIU/mL (0.300-4.200) 02/19/25 10:04 02/04 04/30 COAG PT 14.5 SECONDS (11.7-14.9) 03/13/25 03:33 Pre-Assessment Diagnosis/Proposed Procedure Planned Operative Procedure(s): cysto, clot evacuation Anesthesia History Anesthesia History - senior account executive: Anesthesia History - senior account executive Hx Hospitalization Yes: [facility]- D/C 3/ FOR STONES 03/03/25 11:20 Any Problems With Anesthesia No 03/03/25 11:20 Cholinesterase deficiency No 03/03/25 11:20 You/Your Family Experience No 03/03/25 11:20 fever (hyperthermia) with Relationship Recent Exposure to Contagious No 03/04/25 06:32 Disease Does patient have nerve No 03/03/25 11:20 stimulator Patient instructed to have device shut off --Does patient have Pacemaker No 03/13/25 07:22 or ICD? When Was Last Pacemaker Check QUESTION #4 FULL TEXT: You/Your Family Experience fever (hyperthermia) with Anesthesia Last Oral Intake Last Oral intake: Last Oral Intake NPO since 00:00 03/13/25 07:22 Meds taken in AM with sips of No 03/13/25 07:22 water? 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 - senior account executive: PONV - senior account executive Female HX of Motion Sickness HX of N/V After Surgery Non-Smoker Duration of Surgery greater than 60 minutes Number of Risk Factors PONV Score Height & Weight Height & Weight: Anesthesia: Height & Weight Height 5 ft 1 in 03/13/25 07:22 Weight: 56 kg 03/13/25 07:22 Body Mass Index (BMI) 23.3 03/13/25 07:22 Respiratory Assessment Respiratory Assessment - senior account executive: Respiratory Tract Infection Hx - senior account executive Hx Respiratory Tract Infection Yes: Patient has had 03/04/25 07:20 pneumonia in the past couple weeks. now clear on CXR. STOP Sleep Apnea STOP Sleep Apnea - senior account executive: STOP Sleep Apnea - senior account executive Hx Hypertension Yes 03/03/25 11:20 Hx Sleep Apnea No 03/03/25 11:20 CPAP No 03/03/25 11:20 BIPAP No 03/03/25 11:20 Do you snore loudly (louder than talking or can be heard Do you often feel tired/ fatigued/ sleepy during daytime? Has anyone observed you stop breathing during sleep? STOP Results QUESTION #5 FULL TEXT : Do you snore loudly (louder than talking or can be heard through closed doors)? Tobacco Use History Tobacco Use History - senior account executive: Tobacco Use History - senior account executive Tobacco Use Smoking Status Former smoker 03/13/25 03:26 Hx Tobacco Use No 03/03/25 11:20 Years Smoking Packs Smoked per Day Smoking Cessation Date was No - quit smoking greater 03/13/25 03:26 within the last 15 years than 15 years ago Hx Smoking Cessation Date 08/10/17 03/13/25 03:26 Hx Smoking Cessation No 03/13/25 03:26 Counseling Hematologic Medial History Hematologic Hx - senior account executive: Hematologic Medical Hx - taker off drying kiln Hx of Blood Transfusion Hx of Transfusion in last 3 Months Date of Last Transfusion (if within last 3 months) Ever experience any problems with transfusion(s)? Specify any problems Hx of Preganancy in last 3 Months Nurse Filling Out Transfusion & Questions: Date: Time: Patient unable to answer at this time (ie. confused, unrespo /Reproduction History /Reproductive History - senior account executive: /Reproductive Hx- senior account executive Hx Now Gestational Age (in weeks): EDC: Hx Hx Para Hx Section SAB No 03/03/25 11:20 Active Medications Active Medications: Current Medications Generic Name Dose Route Start Last Admin Trade Name Freq PRN Reason Stop Dose Admin Acetaminophen 1,000 mg 03/13/25 14:00 Acetaminophen 500 Mg Tablet PO Q8 PRIMO Aztreonam 1 gm/ Sodium 50 mls @ 150 mls/hr 03/13/25 06:30 Chloride IV Q12 PRIMO Lactated Ringer's 1,000 mls @ 75 mls/hr 03/13/25 06:30 IV .[id number] PRIMO Morphine Sulfate 2 mg 03/13/25 06:28 Morphine 2 Mg/Ml Syringe IV Q3H PRN PRN Pain Score 6-10 Ondansetron HCl 4 mg 03/13/25 06:28 Ondansetron 4 Mg/2 Ml Vial IV Q8H PRN PRN NAUSEA/VOMITING Oxycodone HCl 5 mg 03/13/25 06:28 Oxycodone 5 Mg Tablet PO Q4H PRN PRN Pain Score 4-10 PFSH Medical History On home O2 Community acquired pneumonia Hematuria UTI (urinary tract infection) Dyspnea Ureteral stent present Kidney stone Hypothyroidism Depression 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 calculus nursing home current use of immunosuppressive drug Crohn's disease Diarrhea Diarrhea Wears hearing aid Wears dentures Cancer Anxiety Thyroid disease Walker as ambulation aid Arthritis Easy bruising TIA (transient ischemic attack) Former smoker COPD (chronic obstructive pulmonary disease) Shortness of breath on exertion History of pain when walking History of echocardiogram History of stress test History of fracture of patella Stage 3b chronic kidney disease (CKD) Osteoporosis Urinary retention Rectal cancer Hydronephrosis Lung cancer Rectal cancer Decreased appetite Abdominal bloating COPD (chronic obstructive pulmonary disease) TIA (transient ischemic attack) Nicotine abuse Depression Anxiety Hypothyroidism COPD exacerbation Chronic bronchitis 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 calculus Hydronephrosis, right Filling defect on imaging study History of rectal cancer Home Medications ?Medication ?Instructions ?Recorded ?Last Taken ?Type bupropion HCl 150 mg 24 hr tablet, 150 mg PO QAM quit smoking 11/28/18 03/03/25 History extended release (Wellbutrin XL) citalopram 40 mg tablet 40 mg PO DAILY Anxiety 04/2403/03/25 History cyanocobalamin (vitamin B-12) 100 mcg IM Q30D Suppleme nt 10/08/19 01/22/25 History 1,000 mcg/mL injection solution cholecalciferol (vitamin D3) 25 25 mcg PO DAILY Supple ment 10/09/21 03/03/25 History mcg (1,000 unit) capsule (Vitamin D3) levothyroxine 88 mcg tablet 88 mcg PO DAILY thyroid 03/04/25 History albuterol sulfate 90 mcg/actuation 2 puff inhalation Q 4H PRN 05/24/24 01/16/25 Rx aerosol inhaler (Ventolin HFA) shortness of breath or wheezing #18 grams potassium chloride 20 mEq 20 meq PO DAILY supplement 0 12/21/24 02/22/25 History tablet,extended release sodium bicarbonate 650 mg tablet 650 mg PO TID supplem ent 01/06/25 03/03/25 History ondansetron 4 mg disintegrating 4 mg PO Q8H PRN nausea and 01/16/25 Unknown Rx tablet vomiting #10 tabs ustekinumab 90 mg/mL subcutaneous 90 mg subcut Q56D un known 01/31/25 01/30/25 History syringe (Stelara) hydroxyzine HCl 10 mg tablet 10 mg PO TID PRN PRN 04/0 02/2802/21/25 Rx Anxiety/Agitation 7 days #21 tabs apixaban 5 mg tablet (Eliquis) 5 mg PO BID blood thinn er 02/20/25 02/28/25 History magnesium oxide 400 mg (241.3 mg 400 mg PO DAILY suppl ement 02/20/25 03/03/25 History magnesium) tablet cefdinir 300 mg capsule 300 mg PO BID pneumonia #10 caps 02/22/25 02/22/25 Rx fluticasone fur. 200 mcg-umeclid 1 inh inhalation WINNIE Y #60 ea 02/24/25 Unknown Rx 62.5 mcg-vilant 25 mcg inhalat.powder (Trelegy Ellipta) ipratropium 0.5 mg-albuterol 3 mg 3 ml inhalation Q4-6 H PRN 02/24/25 Unknown History (2.5 mg base)/3 mL nebulization shortness of breath soln ipratropium 0.5 mg-albuterol 3 mg 3 ml inhalation Q4H PRN PRN SOB 02/24/25 Unknown Rx (2.5 mg base)/3 mL nebulization &/OR WHEEZING #180 mL soln Allergy/AdvReac Type Severity Reaction Status Date / Time levofloxacin Allergy Mild Rash Verified 03/13/25 03:26 ciprofloxacin HCl (From Allergy Rash Verified 03/13/25 03:26 Cipro) Penicillins Allergy Hives Verified 03/13/25 03:26 codeine AdvReac makes her Verified 03/13/25 03:26 feel weird magnesium citrate AdvReac Nausea Verified 03/13/25 03:26 NSAIDS (Non-Steroidal AdvReac kidney Verified 03/13/25 03:26 Anti-Inflamma damage r/t long-term usage advised not to use Family History Father Heart disease Mother Heart disease Sister Heart disease Diabetes Other Crohn's disease Surgical History S/P lobectomy of lung S/P ureteral stent placement History of cystoscopy History of colonoscopy (~10/2019) History of colostomy History of cholecystectomy History of bowel resection History of hysterectomy History of delivery Social History household members: none Smoking Status: Former smoker Tobacco: How many years used: 53 how long ago did patient quit smoking: Quit 2-5 years prior. second hand exposure: No alcohol intake: never substance use type: does not use caffeine: No what type of physical activity do you participate in: none Review of Systems (Anesthesia) ROS Narrative System reviewed and no additional complaints, except as documented. Physical Exam Narrative getting blood. blood clot left lower extremety, active pnemonia
--- NOTE | 2025-03-13 08:00 | CALC_PTH ---
PATIENT: JOSE DE JESUS GOLD LOC: MS3 U#:[id number] AGE/SX: 79/F ROOM: SD310 RE03/13/[address]: Dr. Minal Morrison MD : 1945 BED: 1 DIS: 03/18/2025 SPEC #: [id number] RECD: 03/13/25 10:15 STATUS: ELAYNE CAR #: [id number] GABRIELE: 03/13/25 08:[address]: Minal Morrison DEPT: SURGICAL PATHOLOGY RECD BY: Vimal Truong ENTERED: 03/13/25 11:46 SP TYPE: Calculi OTHR DR: MD Dr. Elliot Lyman Chi, MD Tissues: A - CALCULI Procedures: Surgery Specimen Level I HEADER OPERATION: Clot evacuation, retrograde pyelogram, stent placement PRE-OP DIAGNOSIS: Acute cystitis with hematuria TISSUE SUBMITTED: A- Left ureteral stone GROSS DIAGNOSIS A. Left ureter, calculus, lithotripsy: * Urolithiasis (gross examination only). * Chemical analysis pending, to be reported separately GROSS DESCRIPTION A. Received fresh in a container labeled with the patient's name, date of , and L ureteral stone is a 0.4 x 0.3 x 0.2 cm verduzco-brown, firm stone fragment. No soft tissue is received; no sections are submitted for microscopic evaluation. The specimen is entirely submitted to a urolithiasis lab. [facility] 03-13-2025 CPT:23165
[2025-03-13 08:21] LABS: Vitamin B12 543 pg/mL (180-914)
[2025-03-13] MEDS: HUM PROTHROMBIN CPLX(PCC)-LANS 2,700 UNIT in Viaflex Bag 1 BAG 403 UNIT IV (08:30)
--- NOTE | 2025-03-13 09:00 | PCM.POST.ANE ---
Anesthesia: Postop Eval I Current Vital Signs Temperature: 97.8 F Pulse Rate: 77 Blood Pressure: 100/55 Respiratory Rate: 16 Pulse Ox: 100 Assessment Airway patent: Yes Spontaneous unlabored respirations: Yes nausea: No Vomiting: No Anesthesia Complication: No Fluid Hydration Crystalloid volume administer (ml): 500 Total IV fluid infused: 500 Progress Note Anesthesia document: Postop Eval 1 completed: Yes
[2025-03-13] MEDS: Lactated Ringers 1,000 ML 75 ML IV ×2 (09:22→11:48)
--- NOTE | 2025-03-13 09:38 | PCM.OPRPT ---
Operative Report (Standard) Operative Information Date of Procedure: 03/13/25 Pre-Operative Diagnosis: Left distal ureteral calculus with gross hematuria Post-Operative Diagnosis: Same Surgery/Procedure Performed: Cystoscopy, clot evacuation, left retrograde pyelogram, left ureteroscopy, stone basket extraction, left ureteral stent insertion beauty therapist: No Type of Anesthesia: General RN Documented Start/Stop Times: Operation Date: 03/13/25 08:00 Case Time Into Pre-Op 03/13/25 07:13 Anesthesia Start 03/13/25 07:30 Into Room 03/13/25 07:30 Procedure Start 03/13/25 07:52 Procedure End 03/13/25 08:30 Anesthesia End 03/13/25 08:44 Out of Room 03/13/25 08:44 Into Recovery 03/13/25 08:47 Out of Recovery 03/13/25 11:22 Procedure Start Time: 07:52 Procedure Stop Time: 08:30 Select all DRAINS/GRAFTS/IMPLANTS that apply: Drains Drain details: 6 Sudanese by 22 cm left JJ stent with string intact, 24 Sudanese three-way Gallagher catheter with continuous bladder irrigation Estimated Blood Loss: N/A Specimen collected: Yes Description of specimen(s) removed: Left ureteral calculus Description of surgery: The patient is a complex 79-year-old female with bilateral stones and recent issues with DVT requiring anticoagulation. She developed left flank pain and gross hematuria with anemia requiring intervention. Informed consent was obtained. She was taken to the operating room and placed on the operating room table. Anesthesia monitored the head, neck, airway, IV access and vital signs throughout the case. Once anesthesia was appropriate ministered, she was placed into dorsolithotomy position and was prepped and draped in usual sterile fashion. With her history of radiation, her urethra is not very mobile. The cystoscope was inserted through the urethra under direct visualization and the clot was evacuated from the bladder. At this time the urine cleared. There was irritation to the bladder mucosa, no large tumor was identified. At this time the left ureteral orifice was found and gently cannulated with an 8 Sudanese cone-tip catheter. Under fluoroscopic visualization a retrograde pyelogram was performed revealing filling defect possibly consistent with the stone seen on CAT scan. A 0.035 Glidewire was then passed into the left ureter up to the renal pelvis is seen on fluoroscopy. A semirigid ureteroscope was then utilized to intubate the left ureter and I was unable to maneuver as easily as I preferred and switched over to a flexible ureteroscope after placing a second safety wire. The flexible ureteroscope was passed over the wire into the left ureter without difficulty and a stone was identified. It was grasped with a stone basket and removed without difficulty. At this time the safety wire was utilized for placement of a 6 Sudanese 22 centimeter JJ stent. Good positioning was seen within the urinary bladder and the renal pelvis on fluoroscopy. The string was left intact on the stent. A 24 three-way Gallagher catheter was inserted with 30 cc in the balloon. Continuous bladder irrigation was started. The catheter irrigated easily and the urine was light pink. The string was attached to the catheter with Steri-Strips. The patient was then awakened and taken to the recovery room in stable condition. There were no complications during the procedure. Surgical Findings: Left distal ureteral calculus removed Complications Complications: No Admit VTE Documentation VTE Present on Admission: No VTE Mechan Device Prophylaxis: None VTE Pharm Prophylaxis ordered?: No Reason prophylaxis not ordered: Medical Contraindication
[2025-03-13 10:17] LABS: Hematocrit 24.8 % (37-47); Hemoglobin 7.9 g/dL (12.0-15.0)
--- NOTE | 2025-03-13 11:07 | POSTOPAN2_ITS ---
Anesthesia Postop Eval I Sum Postop Eval Completion status Anesthesia document: Postop Eval 1 completed: Yes Anesthesia Postop Eval I Summary Anesthesia Postop Eval I Summary: Anesthesia Postop Eval I: Assessment Summary Airway patent Yes 03/13/25 11:06 SOLAR SALES REPRESENTATIVE.CSIR Spontaneous unlabored Yes 03/13/25 11:06 SOLAR SALES REPRESENTATIVE.CSIR respirations Mental status nausea No 03/13/25 11:06 SOLAR SALES REPRESENTATIVE.CSIR Vomiting No 03/13/25 11:06 SOLAR SALES REPRESENTATIVE.CSIR Anesthesia Postop Eval I: Fluid Summary Crystalloid volume administer 500 03/13/25 11:06 SOLAR SALES REPRESENTATIVE.CSIR (ml) Colloids volume administered ( ml) Blood Product volume administered (ml) Total IV fluid infused 500 03/13/25 11:06 SOLAR SALES REPRESENTATIVE.CSIR Anesthesia Postop Eval I: Summary Notes Anesthesia Complication No 03/13/25 11:06 SOLAR SALES REPRESENTATIVE.CSIR Anesthesia Complication Comment: Post-operative progress note Anesthesia: Postop Eval II Evaluation Mental status: Awake Pain Level: 2 nausea: No Vomiting: No
--- NOTE | 2025-03-13 11:07 | PCM.POSTANE2 ---
Anesthesia Postop Eval I Sum Postop Eval Completion status Anesthesia document: Postop Eval 1 completed: Yes Anesthesia Postop Eval I Summary Anesthesia Postop Eval I Summary: Anesthesia Postop Eval I: Assessment Summary Airway patent Yes 03/13/25 11:06 CONGRESSIONAL REPRESENTATIVE.CSIR Spontaneous unlabored Yes 03/13/25 11:06 CONGRESSIONAL REPRESENTATIVE.CSIR respirations Mental status nausea No 03/13/25 11:06 CONGRESSIONAL REPRESENTATIVE.CSIR Vomiting No 03/13/25 11:06 CONGRESSIONAL REPRESENTATIVE.CSIR Anesthesia Postop Eval I: Fluid Summary Crystalloid volume administer 500 03/13/25 11:06 CONGRESSIONAL REPRESENTATIVE.CSIR (ml) Colloids volume administered ( ml) Blood Product volume administered (ml) Total IV fluid infused 500 03/13/25 11:06 CONGRESSIONAL REPRESENTATIVE.CSIR Anesthesia Postop Eval I: Summary Notes Anesthesia Complication No 03/13/25 11:06 CONGRESSIONAL REPRESENTATIVE.CSIR Anesthesia Complication Comment: Post-operative progress note Anesthesia: Postop Eval II Evaluation Mental status: Awake Pain Level: 2 nausea: No Vomiting: No
--- NOTE | 2025-03-13 11:19 | EX.PCM.CON.S ---
Assessment & Plan Assessment/Plan (1) Left leg DVT: QUALIFIERS: Affected thrombotic vein of extremity: unspecified vein of extremity Chronicity: unspecified Qualified Code(s): I82.402 - Acute embolism and thrombosis of unspecified deep veins of left lower extremity (2) ABLA (acute blood loss anemia): PLAN: Plan Agree that IVC filter is indicated. I discussed with the patient the indications for IVC filter placement, the procedure details including risks, benefits, and recovery, and the possibility for IVC filter retrieval later if appropriate. She verbalized understanding of the above and did wish to proceed with filter placement. I also called and spoke over the phone with her daughter Jessica who is her HCPOA and discussed the same regarding the procedure indication, risks, benefits, recovery and her daughter agrees that she should have the filter placed and agreeable to that today as long as patient is stable to do so. Plan is for IVC filter placement in the quality assurance lab technician this afternoon once patient is appropriately recovered from surgery/PACU. HPI Consult Data Date of Consult: 03/13/25 HPI Narrative HPI Narrative: JOSE DE JESUS GOLD, is a 79 F who presented to the [facility] ER from TCU with significant gross hematuria with associated acute anemia and hypotension at time of presentation. She had been on Eliquis for treatment of an infrapopliteal DVT initially identified 02/10/25 and shown to be persistent on duplex 03/10/25. She proceeded from the ER to the OR with Dr. Morrison this morning for cystoscopy with intervention. Her Eliquis has been and will continue to need to be held to manage her hematuria. We are consulted for consideration of IVC filter insertion. I saw her in PACU following her procedure with Dr. Morrison. She was resting with her eyes closed but awoke easily and was conversive, oriented x3, and without any apparent confusion. [facility] Medical History On home O2 Community acquired pneumonia Hematuria UTI (urinary tract infection) Dyspnea Ureteral stent present Kidney stone Hypothyroidism Depression 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 calculus retirement current use of immunosuppressive drug Crohn's disease Diarrhea Diarrhea Wears hearing aid Wears dentures Cancer Anxiety Thyroid disease Walker as ambulation aid Arthritis Easy bruising TIA (transient ischemic attack) Former smoker COPD (chronic obstructive pulmonary disease) Shortness of breath on exertion History of pain when walking History of echocardiogram History of stress test History of fracture of patella Stage 3b chronic kidney disease (CKD) Osteoporosis Urinary retention Rectal cancer Hydronephrosis Lung cancer Rectal cancer Decreased appetite Abdominal bloating COPD (chronic obstructive pulmonary disease) TIA (transient ischemic attack) Nicotine abuse Depression Anxiety Hypothyroidism COPD exacerbation Chronic bronchitis 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 calculus Hydronephrosis, right Filling defect on imaging study History of rectal cancer Home Medications ?Medication ?Instructions ?Recorded ?Last Taken ?Type bupropion HCl 150 mg 24 hr tablet, 150 mg PO QAM quit smoking 11/28/18 03/03/25 History extended release (Wellbutrin XL) citalopram 40 mg tablet 40 mg PO DAILY Anxiety 04/24/19 03/03/25 History cyanocobalamin (vitamin B-12) 100 mcg IM Q30D Supplement 10/08/19 01/22/25 History 1,000 mcg/mL injection solution cholecalciferol (vitamin D3) 25 25 mcg PO DAILY Supplement 10/09/21 03/03/25 History mcg (1,000 unit) capsule (Vitamin D3) levothyroxine 88 mcg tablet 88 mcg PO DAILY thyroid 12/14/23 03/04/25 History albuterol sulfate 90 mcg/actuation 2 puff inhalation Q4H PRN 05/24/24 01/16/25 Rx aerosol inhaler (Ventolin HFA) shortness of breath or wheezing #18 grams potassium chloride 20 mEq 20 meq PO DAILY supplement 12/21/24 02/22/25 History tablet,extended release sodium bicarbonate 650 mg tablet 650 mg PO TID supplement 01/06/25 03/03/25 History ondansetron 4 mg disintegrating 4 mg PO Q8H PRN nausea and 01/16/25 Unknown Rx tablet vomiting #10 tabs ustekinumab 90 mg/mL subcutaneous 90 mg subcut Q56D unknown 01/31/25 01/30/25 History syringe (Stelara) hydroxyzine HCl 10 mg tablet 10 mg PO TID PRN PRN 02/07/25 02/21/25 Rx Anxiety/Agitation 7 days #21 tabs apixaban 5 mg tablet (Eliquis) 5 mg PO BID blood thinner 02/20/25 02/28/25 History magnesium oxide 400 mg (241.3 mg 400 mg PO DAILY supplement 02/20/25 03/03/25 History magnesium) tablet cefdinir 300 mg capsule 300 mg PO BID pneumonia #10 caps 02/22/25 02/22/25 Rx fluticasone fur. 200 mcg-umeclid 1 inh inhalation DAILY #60 ea 02/24/25 Unknown Rx 62.5 mcg-vilant 25 mcg inhalat.powder (Trelegy Ellipta) ipratropium 0.5 mg-albuterol 3 mg 3 ml inhalation Q4-6H PRN 02/24/25 Unknown History (2.5 mg base)/3 mL nebulization shortness of breath soln ipratropium 0.5 mg-albuterol 3 mg 3 ml inhalation Q4H PRN PRN SOB 02/24/25 Unknown Rx (2.5 mg base)/3 mL nebulization &/OR WHEEZING #180 mL soln Allergy/AdvReac Type Severity Reaction Status Date / Time levofloxacin Allergy Mild Rash Verified 03/13/25 03:26 ciprofloxacin HCl (From Allergy Rash Verified 03/13/25 03:26 Cipro) Penicillins Allergy Hives Verified 03/13/25 03:26 codeine AdvReac makes her Verified 03/13/25 03:26 feel weird magnesium citrate AdvReac Nausea Verified 03/13/25 03:26 NSAIDS (Non-Steroidal AdvReac kidney Verified 03/13/25 03:26 Anti-Inflamma damage r/t long-term usage advised not to use Family History Father Heart disease Mother Heart disease Sister Heart disease Diabetes Other Crohn's disease Surgical History S/P lobectomy of lung S/P ureteral stent placement History of cystoscopy History of colonoscopy (~10/2019) History of colostomy History of cholecystectomy History of bowel resection History of hysterectomy History of delivery Social History household members: none Smoking Status: Former smoker Tobacco: How many years used: 53 how long ago did patient quit smoking: Quit 2-5 years prior. second hand exposure: No alcohol intake: never substance use type: does not use caffeine: No what type of physical activity do you participate in: none Physical Exam Const alert, oriented x3 and no apparent distress General Appearance: cooperative and comfortable HEENT normocephalic, head/scalp atraumatic, hearing grossly normal bilaterally and external ears normal Eyes EOMs intact bilaterally General Eye: normal appearance of both eyes Neck General: normal visual inspection and trachea midline Resp normal respiratory effort, normal air movement and no retractions Effort and Inspection: able to speak in complete sentences; Negative for labored, grunting or stridor Cardio Rate: regular rate Rhythm: regular rhythm Neuro oriented x3, moves all extremities and no focal motor deficits Speech: speech normal Psych mental status grossly normal Appearance: grossly normal Attitude: calm and engaged Activity / Motor Behavior: appropriate eye contact Speech: normal speech Lab / Micro Data 03/13/25 10:05 03/13/25 03:33 Labs: Laboratory Results - last 24 hr 03/13/25 03:33: WBC 16.4 H, RBC 2.55 L, Hgb 7.7 L, Hct 24.4 L, MCV 95.7, MCH 30.2, MCHC 31.6 L, RDW Std Deviation 49.5 H, RDW Coeff of Osmar 14.2, Plt Count 214, MPV 8.9, Immature Gran % (Auto) 0.500, Neut % (Auto) 74.6 H, Lymph % (Auto) 16.8 L, Avery % (Auto) 7.1, Eos % (Auto) 0.9, Baso % (Auto) 0.1, Absolute Neuts (auto) 12.2 H, Absolute Lymphs (auto) 2.76, Nucleated RBC % 0, PT 14.5, INR 1.1, APTT 42.4 H, Sodium 136, Potassium 4.2, Chloride 105, Carbon Dioxide 20.9 L, Anion Gap 10, BUN 22 H, Creatinine 1.65 H, Estim Creat Clear Calc 20.86 L, Est GFR (MDRD) Non-Af 31 L, BUN/Creatinine Ratio 13.1, Glucose 113 H, Calcium 8.0, Vitamin B12 543, TSH 9.110 H 03/13/25 05:15: Blood Type A POSITIVE, Antibody Screen NEGATIVE, Crossmatch See Detail 03/13/25 10:05: Hgb 7.9 L, Hct 24.8 L Imaging Radiology Impression Abdomen/Pelvis CT 03/13/25 04:26 IMPRESSION: Interval development of high density material within the urinary bladder consistent with hemorrhage. Active extravasation can not be ruled out. A new Gallagher catheter is present with the urinary bladder. Gas is also present within urinary bladder, new since prior, likely due to catheter insertion. Acute fracture involving the left acetabulum anteriorly.. This was seen on pelvic CT dated 03/10/2025. Bibasilar pulmonary consolidations. The left lower lobe consolidation is appears spiculated. Malignancy is a possibility. Recommend short-term follow-up, PET-CT versus tissue sampling. Other findings as above. Reading Location: [facility] Charges/Coding Visit Charges Inpatient E&M: 03102 Init Hosp L1
--- NOTE | 2025-03-13 11:30 | PCM.POST.ANE ---
Anesthesia: Postop Eval I Current Vital Signs Temperature: 97.8 F Pulse Rate: 77 Blood Pressure: 100/55 Respiratory Rate: 18 Pulse Ox: 100 Oxygen Delivery Method: Nasal Cannula Assessment Airway patent: Yes Spontaneous unlabored respirations: Yes Mental status: Awake nausea: No Vomiting: No Anesthesia Complication: No Fluid Hydration Crystalloid volume administer (ml): 1,000 Total IV fluid infused: 500 Progress Note Anesthesia document: Postop Eval 1 completed: Yes
[2025-03-13] MEDS: Aztreonam 1 GM in 0.9% Normal Saline (50mL MB+) 50 ML IV ×2 (11:48→20:39)
[2025-03-13] MEDS: Ipratropium/Albuterol Sulfate 3 ML AMPUL.NEB INHALATION ×2 (13:08→16:54)
[2025-03-13 15:54] LABS: Hematocrit 23.6 % (37-47); Hemoglobin 7.4 g/dL (12.0-15.0)
--- NOTE | 2025-03-13 16:09 | NURSING ---
10ccs taken out of sheets balloon by this RN
[2025-03-13] MEDS: Budesonide Respules 0.5 MG/2 ML AMPUL.NEB. INHALATION (16:54)
--- NOTE | 2025-03-13 17:07 | PN.HOSP_ITS ---
Reason for Visit Reason for Visit: Diagnoses Malignant neoplasm of unspecified part of left bronchus or lung (03/13/25) Acute posthemorrhagic anemia (03/13/25) Elevated white blood cell count, unspecified (03/13/25) Acute embolism and thrombosis of unspecified deep veins of left lower extremity (03/13/25) Hypotension, unspecified (03/13/25) Acute cystitis with hematuria (03/13/25) Adverse effect of unspecified drugs, medicaments and biological substances, initial encounter (03/13/25) Subjective Subjective Breathing ok. Feeling ok. Objective Data Objective Data Vital Signs: Vital Signs Temp Pulse Resp BP Pulse Ox O2 Del Method O2 Flow Rate 36.1 C L 79 18 89/58 L 99 Nasal Cannula 2 03/13/25 15:45 03/13/25 16:30 03/13/25 16:30 03/13/25 16:30 03/13/25 16:30 03/13/25 16:30 03/13/25 16:30 Oxygen Flow Rate (L/min) 2 Oxygen Delivery Method Nasal Cannula Weight: 56 kg Body Mass Index (BMI) 23.3 Intake & Output: Intake and Output for Last 24 Hours 03/11/25 03/12/25 03/13/25 23:59 23:59 23:59 Intake Total 2332.5 / 2332.5 Output Total 17744 / 46196 Balance -68507.5 / -52124.5 Lab / Micro Data 03/13/25 15:30 03/13/25 03:33 Labs: Laboratory Results - last 24 hr 03/13/25 03:33: WBC 16.4 H, RBC 2.55 L, Hgb 7.7 L, Hct 24.4 L, MCV 95.7, MCH 30.2, MCHC 31.6 L, RDW Std Deviation 49.5 H, RDW Coeff of Osmar 14.2, Plt Count 214, MPV 8.9, Immature Gran % (Auto) 0.500, Neut % (Auto) 74.6 H, Lymph % (Auto) 16.8 L, Fannin % (Auto) 7.1, Eos % (Auto) 0.9, Baso % (Auto) 0.1, Absolute Neuts (auto) 12.2 H, Absolute Lymphs (auto) 2.76, Nucleated RBC % 0, PT 14.5, INR 1.1, APTT 42.4 H, Sodium 136, Potassium 4.2, Chloride 105, Carbon Dioxide 20.9 L, Anion Gap 10, BUN 22 H, Creatinine 1.65 H, Estim Creat Clear Calc 20.86 L, Est GFR (MDRD) Non-Af 31 L, BUN/Creatinine Ratio 13.1, Glucose 113 H, Calcium 8.0, Vitamin B12 543, TSH 9.110 H 03/13/25 05:15: Blood Type A POSITIVE, Antibody Screen NEGATIVE, Crossmatch See Detail 03/13/25 05:15: Crossmatch See Detail 03/13/25 10:05: Hgb 7.9 L, Hct 24.8 L 03/13/25 15:30: Hgb 7.4 L, Hct 23.6 L, Serum Folate 11.50 Radiography Diagnostic Testing: Radiology Impression Abdomen/Pelvis CT 03/13/25 04:26 IMPRESSION: Interval development of high density material within the urinary bladder consistent with hemorrhage. Active extravasation can not be ruled out. A new Gallagher catheter is present with the urinary bladder. Gas is also present within urinary bladder, new since prior, likely due to catheter insertion. Acute fracture involving the left acetabulum anteriorly.. This was seen on pelvic CT dated 03/10/2025. Bibasilar pulmonary consolidations. The left lower lobe consolidation is appears spiculated. Malignancy is a possibility. Recommend short-term follow-up, PET-CT versus tissue sampling. Other findings as above. Reading Location: [facility] Physical Exam Const alert and no apparent distress Constitutional Narrative: no respiratory distress. no conversational dypsnea. Resp normal respiratory effort and no use of accessory muscles Resp Narrative: coarse BS. Cardio regular rate, regular rhythm, S1 normal heart sound and S2 normal heart sound GI normal to inspection, nondistended, normoactive bowel sounds, soft to palpation, non-tender and non-distended Extremity normal to inspection Neuro Sensorium / Orientation: awake and alert Assessment & Plan Assessment/Plan (1) Pneumonia: PLAN: Plan Pneumonia: * suspected gram negative * check SCx, strep and legionella antigens * PEP * abx with aztreonam LLE DVT * left gastroc. * not a candidate for anticoagulation given hematuria * IVC filter placement by vascular surgery Hematuria * 2/2 left distal ureteral calculus * s/p cystoscopy on 03/13 w clot evacuation, left ureteral stent insertion * monitor * UA negative for infection. UCx showing a bacteria, but CFUs <100, therefore, I dont feel that she has a UTI ABLA * 2/2 hematuria * transfused 1 unit PRBC * monitor Chronic conditions: * lung cancer: s/p ALBERTO lobectomy. Follow up with oncology/pulmonary as outpt. * Crohn's disease: * CKD IIIb * hypothyoidism: levothyroxine VTE prophylaxis: RLE SCDs. Charges/Coding Procedures Hospitalists Procedures: Other Procedure - See Report (Nonbillable rounding as patient was admitted after midnight.)
--- NOTE | 2025-03-13 18:20 | OP.PCM_ITS ---
Operative Report (Standard) Operative Information Date of Procedure: 03/13/25 Pre-Operative Diagnosis: Recent deep vein thrombosis with significant genitourinary tract bleed and contraindication to anticoagulation Post-Operative Diagnosis: Same Surgery/Procedure Performed: Insertion inferior vena cava filter fire chief: No Type of Anesthesia: Local and Sedation,Conscious RN Documented Start/Stop Times: Operation Date: 03/13/25 08:00 Case Time Into Pre-Op 03/13/25 07:13 Anesthesia Start 03/13/25 07:30 Into Room 03/13/25 07:30 Procedure Start 03/13/25 07:52 Procedure End 03/13/25 08:30 Anesthesia End 03/13/25 08:44 Out of Room 03/13/25 08:44 Into Recovery 03/13/25 08:47 Out of Recovery 03/13/25 11:22 Procedure Start Time: 14:30 Procedure Stop Time: 14:45 Select all DRAINS/GRAFTS/IMPLANTS that apply: Implanted device Implanted device details: Cook Tulip vena cava filter Estimated Blood Loss: 4 Specimen collected: No Description of surgery: HPI: Patient is a 79-year-old female with multiple medical comorbidities and recent ureteral stone that had been treated in an inpatient setting and the patient currently residing in the transitional care unit. She has not developed significant gross hematuria requiring return to the operating room and cessation of her anticoagulation for her recent left lower extremity DVT. She is felt to be appropriate for vena cava filter placement so she is taken now for emergent insertion. Description of procedure: Upon obtaining informed consent and verification correct patient procedure site the patient was taken to the Carbon Furnace Operator where she was positioned prepped and draped in usual sterile fashion. Timeout was performed, sedation administered with Versed and fentanyl. Skin overlying the right common femoral vein was anesthetized 1% lidocaine and the vessel accessed under ultrasound guidance with a micropuncture needle and wire. This then exchanged for micropuncture sheath through which a hand-injection iliac venacavogram was performed revealing satisfactory positioning no extravasation or dissection. This also revealed patent right iliac vein system and vena cava of normal caliber. It appeared as if the left renal vein confluence was abnormally low with regards to the iliac vein confluence. Through the micropuncture sheath a J-wire was advanced and the micropuncture sheath exchanged for the Cook filter delivery sheath advanced in the position below the confluence of what appeared to the lowest renal vein. From this position subtraction venacavogram was performed revealing normal caliber vena cava that had no evidence of thrombus or obstruction. This confirmed that the left renal vein confluence was a apparent location approximately 2 to 3 cm cephalad to the vena cava confluence. I did appear as if there was sufficient length to land filter below this confluence so the Cook Tulip inferior vena cava filter was advanced and deployed below the left renal vein with satisfactory clearance above the iliac vein confluence. Completion venacavogram confirmed satisfactory positioning with no significant tilt. The delivery sheath was then withdrawn a minute pressure held for 5 minutes until hemostasis was obtained. The patient was then taken to the PCU for bedrest and recovery. Surgical Findings: See above Complications Complications: No
[2025-03-13] MEDS: oxyCODONE 5 MG Tablet PO (19:56)
[2025-03-13] MEDS: Sodium Bicarbonate 650 MG Tablet PO (20:39)
[2025-03-13] MEDS: 0.9% Saline Lock 10 ML Syringe IV (20:39)
[2025-03-13] MEDS: Acetaminophen 500 MG Tablet 1000 MG PO (20:40)
[2025-03-14] VITALS (16 sets, daily range): BP systolic 83–118; BP diastolic 46–72; PULSE 69–88; RESP 16–20; TEMP 36.3–36.8; O2SAT 95–99; BMI 23.8
[2025-03-14] MEDS: oxyCODONE 5 MG Tablet PO ×3 (01:47→23:48)
[2025-03-14] MEDS: Morphine 2 MG/ML Syringe IV (04:56)
[2025-03-14] MEDS: 0.9% Saline Lock 10 ML Syringe IV ×2 (05:13→10:04)
[2025-03-14] MEDS: Lactated Ringers 1,000 ML 75 ML IV (05:14)
[2025-03-14] MEDS: Acetaminophen 500 MG Tablet 1000 MG PO ×3 (05:17→21:25)
[2025-03-14] MEDS: Levothyroxine 88 MCG Tablet PO (05:17)
[2025-03-14] MEDS: Sodium Bicarbonate 650 MG Tablet PO ×3 (05:17→21:25)
[2025-03-14 05:52] LABS: Absolute Lymphocyte Count 2.83 X10^3/uL (0.83-4.51); Absolute Neutrophil Count 10.9 X10^3/uL (2.0-7.7); Basophil# 0.03 X10^3/uL; Basophil% 0.2 % (0-1); Eosinophil# 0.05 X10^3/uL; Eosinophils% 0.3 % (0-5); Hematocrit 25.3 % (37-47); Hemoglobin 8.1 g/dL (12.0-15.0); Lymphocyte # 2.83 X10^3/ul (0.83-4.51); Lymphocyte % 19.1 % (19-41); Mean Corpuscular Hgb 28.7 pg (27.0-32.0); Mean Corpuscular Volume 89.7 fL (81-99); Mean Platelet Vol. 9.4 fl (6.2-12.0); Monocyte# 0.92 X10^3/uL; Monocyte% 6.2 % (0-10); NRBC Flagged by Analyzer 0 % (0-5); Neutrophil # 10.88 X10^3/uL (2.7-7.7); Neutrophil % 73.4 % (47-70); Platelet Count 196 K/mm3 (150-450); RBC Distribution Width CV 17.8 % (11.6-14.6); RBC Distribution Width SD 58.4 fl (35.1-43.9); Red Blood Count 2.82 M/mm3 (4.2-5.4); White Blood Count 14.8 K/mm3 (4.4-11.0)
[2025-03-14 06:23] LABS: Anion Gap 8 (5-15); BUN 17 mg/dL (4-19); BUN/Creat Ratio 12.9 RATIO (10-20); Calcium,Total 7.9 mg/dL (7.6-11.0); Carbon Dioxide 19.6 mmol/L (21.0-32.0); Chloride 109 mmol/L (98-108); Creatinine, Serum 1.31 mg/dL (0.70-1.20); EST Glomerular Filtration Rate 41 (>60); Estimated Creatinine Clearance 26.28 ml/min (50-250); Glucose 88 mg/dL (70-99); Potassium 4.1 mmol/L (3.3-5.1); Sodium Level 137 mmol/L (133-145)
--- NOTE | 2025-03-14 07:42 | PN.HOSP_ITS ---
Reason for Visit Reason for Visit: Diagnoses Malignant neoplasm of unspecified part of left bronchus or lung (03/13/25) Acute posthemorrhagic anemia (03/13/25) Elevated white blood cell count, unspecified (03/13/25) Acute embolism and thrombosis of unspecified deep veins of left lower extremity (03/13/25) Hypotension, unspecified (03/13/25) Pneumonia, unspecified organism (03/13/25) Acute cystitis with hematuria (03/13/25) Adverse effect of unspecified drugs, medicaments and biological substances, initial encounter (03/13/25) Subjective Subjective Feeling well. Breathing well. BP has been low. Normally at home, BP is in 100s- 110s. Objective Data Objective Data Vital Signs: Vital Signs Temp Pulse Resp BP Pulse Ox O2 Del Method O2 Flow Rate 36.5 C L 70 18 113/61 98 Nasal Cannula 2 03/14/25 05:20 03/14/25 05:20 03/14/25 05:20 03/14/25 05:20 03/14/25 05:20 03/14/25 05:20 03/14/25 05:20 Oxygen Flow Rate (L/min) 2 Oxygen Delivery Method Nasal Cannula Weight: 56 kg Body Mass Index (BMI) 23.3 Intake & Output: Intake and Output for Last 24 Hours 03/12/25 03/13/25 03/14/25 23:59 23:59 23:59 Intake Total 3610.0 / 3610.0 572.5 / 572.5 Output Total 08832 / 36423 250 / 250 Balance -96674.0 / -79391.0 322.5 / 322.5 Lab / Micro Data 03/14/25 05:06 03/14/25 05:06 Labs: Laboratory Results - last 24 hr 03/13/25 03:33: Vitamin B12 543, TSH 9.110 H 03/13/25 05:15: Crossmatch See Detail 03/13/25 05:15: Crossmatch See Detail 03/13/25 10:05: Hgb 7.9 L, Hct 24.8 L 03/13/25 15:30: Hgb 7.4 L, Hct 23.6 L, Serum Folate 11.50 03/14/25 05:06: WBC 14.8 H, RBC 2.82 L, Hgb 8.1 L, Hct 25.3 L, MCV 89.7 D, MCH 28.7, MCHC 32.0, RDW Std Deviation 58.4 H, RDW Coeff of Osmar 17.8 H, Plt Count 196, MPV 9.4, Immature Gran % (Auto) 0.800, Neut % (Auto) 73.4 H, Lymph % (Auto) 19.1, [place] % (Auto) 6.2, Eos % (Auto) 0.3, Baso % (Auto) 0.2, Absolute Neuts (auto) 10.9 H, Absolute Lymphs (auto) 2.83, Nucleated RBC % 0, Sodium 137, Potassium 4.1, Chloride 109 H, Carbon Dioxide 19.6 L, Anion Gap 8, BUN 17, C reatinine 1.31 H, Estim Creat Clear Calc 26.28 L, Est GFR (MDRD) Non-Af 41 L, BUN/Creatinine Ratio 12.9, Glucose 88, Calcium 7.9 Micro: Microbiology 03/13/25 18:17 Urine Catheter - Gallagher Legionella Antigen - Final 03/13/25 18:17 Urine Catheter - Catheter Streptococcus pneumoniae Antigen (M - Final Physical Exam Const alert and no apparent distress HEENT head/scalp atraumatic and moist oral mucous membranes Resp normal respiratory effort, no retractions, no use of accessory muscles and clear to auscultation bilaterally Cardio regular rate, regular rhythm, S1 normal heart sound and S2 normal heart sound GI normal to inspection, nondistended, normoactive bowel sounds, soft to palpation, non-tender and non-distended Assessment & Plan Assessment/Plan (1) Pneumonia: PLAN: Plan Pneumonia: * suspected gram negative * check SCx. Strep and legionella antigens negative. * PEP * abx with CTX Hypotension * receiving IVF * start midodrine to assist. * check an ACTH stim test in AM to see if has issues of adrenal isuffiency LLE DVT * left gastroc. * not a candidate for anticoagulation given hematuria * IVC filter placement by vascular surgery on 03/13 Hematuria * 2/2 left distal ureteral calculus * s/p cystoscopy on 03/13 w clot evacuation, left ureteral stent insertion * monitor * UA negative for infection. UCx showing a bacteria, but CFUs <100, therefore, I dont feel that she has a UTI ABLA * 2/2 hematuria * transfused 1 unit PRBC * monitor Chronic conditions: * lung cancer: s/p ALBERTO lobectomy. Follow up with oncology/pulmonary as outpt. * Crohn's disease: * CKD IIIb * hypothyoidism: levothyroxine VTE prophylaxis: RLE SCDs. DW patient's daughters at bedside. Charges/Coding Visit Charges Inpatient E&M: 38121 Subs Hosp L2 NIHSS NIHSS Nursing Documentation NIHSS Nursing Documentation: NIHSS: Ischemic Stroke/TIA Start: 03/13/25 17:54 Freq: Status: Active Protocol: Activity Type Activity Date Activity User E-sign Co-sign Detail Recorded Client Recorded Date Recorded By Document 03/13/25 17:54 MT [id number] 03/13/25 17:55 MT 03/13/25 17:54 NIH Stroke Scale [NIHSS] A score of 0 is normal or asymptomatic . Total possible score is 42. Inpatient: RN or Physician to activate a stroke alert for onset of new stroke symptoms or with NIHSS increase >/= 3 points. Following change in neurological status, NIHSS will be performed per physician order or more frequently PRN. -1a. Level of Consciousness 0 - Alert; keenly responsive -1b. LOC Questions 0 - Answers BOTH questions correctly -1c. LOC Commands 0 - Performs BOTH tasks correctly -2. Best Gaze 0 - Normal -3. Visual 0 - No visual loss -4. Facial Palsy 0 - Normal symmetrical movements -5a. Left Arm 0 - No drift; arm holds 90 ( or 45) degrees for full 10 seconds -5b. Right Arm 0 - No drift; arm holds 90 ( or 45) degrees for full 10 seconds -6a. Left Leg UN - Amputation or joint fusion, explain : -'UN' explanation pt with neuropathy, unable to life leg in bed chronic -6b. Right Leg UN - Amputation or joint fusion, explain : -'UN' explanation pt with neuropathy, unable to life leg in bed chronic -7. Limb Ataxia 0 - Absent -8. Sensory 0 - Normal; no sensory loss -9. Best Language 0 - No aphasia; normal -10. Dysarthria 0 - Normal -11. Extinction and Inattention 0 - No abnormality -Total 0 Query Text:A score of 0 is normal or asymptomatic. Total possible score is 42 . ED: Notify Physician for NIHSS increase by > / = 3 points. Inpatient: RN or Physician to activate a stroke alert for NIHSS increase of > / = 3 points. Coma Scale [Assess] -Eye Opening Spontaneous -Motor Obeys Commands -Verbal Oriented [Total] -Coma Scale Total 15
[2025-03-14] MEDS: Ipratropium/Albuterol Sulfate 3 ML AMPUL.NEB INHALATION ×3 (07:46→20:20)
--- NOTE | 2025-03-14 08:25 | PCM.PN.GU ---
Subjective Subjective Feeling better this morning but complaining of bladder pressure especially when the Gallagher catheter is manipulated. No nausea or vomiting and is drinking fluids, has not eaten or gotten out of bed yet. Was feeling a little confused last night likely secondary to anesthesia but is better this morning. Objective Data Objective Data Vital Signs: Vital Signs Temp Pulse Resp BP Pulse Ox O2 Del Method O2 Flow Rate 97.7 F L 69 20 H 113/61 95 Nasal Cannula 2 03/14/25 05:20 03/14/25 07:46 03/14/25 07:46 03/14/25 05:20 03/14/25 07:46 03/14/25 07:46 03/14/25 07:46 Oxygen Flow Rate (L/min) 2 Oxygen Delivery Method Nasal Cannula Weight: 56 kg Body Mass Index (BMI) 23.3 Intake & Output: Intake and Output for Last 24 Hours 03/12/25 03/13/25 03/14/25 23:59 23:59 23:59 Intake Total 3610.0 / 3610.0 572.5 / 572.5 Output Total 01144 / 84676 250 / 250 Balance -95225.0 / -20759.0 322.5 / 322.5 Lab / Micro Data 03/14/25 05:06 03/14/25 05:06 Labs: Laboratory Results - last 24 hr 03/13/25 05:15: Crossmatch See Detail 03/13/25 05:15: Crossmatch See Detail 03/13/25 10:05: Hgb 7.9 L, Hct 24.8 L 03/13/25 15:30: Hgb 7.4 L, Hct 23.6 L, Serum Folate 11.50 03/14/25 05:06: WBC 14.8 H, RBC 2.82 L, Hgb 8.1 L, Hct 25.3 L, MCV 89.7 D, MCH 28.7, MCHC 32.0, RDW Std Deviation 58.4 H, RDW Coeff of Osmar 17.8 H, Plt Count 196, MPV 9.4, Immature Gran % (Auto) 0.800, Neut % (Auto) 73.4 H, Lymph % (Auto) 19.1, [place] % (Auto) 6.2, Eos % (Auto) 0.3, Baso % (Auto) 0.2, Absolute Neuts (auto) 10.9 H, Absolute Lymphs (auto) 2.83, Nucleated RBC % 0, Sodium 137, Potassium 4.1, Chloride 109 H, Carbon Dioxide 19.6 L, Anion Gap 8, BUN 17, Creatinine 1.31 H, Estim Creat Clear Calc 26.28 L, Est GFR (MDRD) Non-Af 41 L, BUN/Creatinine Ratio 12.9, Glucose 88, Calcium 7.9 Micro: Microbiology 03/13/25 18:17 Urine Catheter - Gallagher Legionella Antigen - Final 03/13/25 18:17 Urine Catheter - Catheter Streptococcus pneumoniae Antigen (M - Final Physical Exam Const alert, oriented x3 and no apparent distress Constitutional Narrative: Abdomen soft nontender nondistended HEENT normocephalic, head/scalp atraumatic, hearing grossly normal bilaterally and external ears normal Eyes General Eye: normal appearance of both eyes Neck supple General: trachea midline Lymph Lymphatic: no lymphedema noted Chest inspection of chest normal Chest: symmetrical chest wall rise Resp normal respiratory effort, normal air movement and no retractions Cardio regular rate GI soft to palpation and non-tender no CVA tenderness Narrative: Gallagher catheter clears quickly and otherwise is pink-tinged to red-tinged. No clots in the last 12 hours. Gallagher catheter and left ureteral stent removed without incident. Bladder / Kidney Exam: catheter in place Back/Spine no CVA tenderness Extremity normal to inspection Skin no rashes or lesions noted, no jaundice, no petechiae and no mottling Neuro oriented x3, CN's II-XII intact bilaterally and moves all extremities Psych mental status grossly normal, thought process normal and cooperative Assessment & Plan Assessment/Plan (1) Calculus of distal left ureter: (2) Hematuria: (3) COPD (chronic obstructive pulmonary disease): (4) Cancer of left lung parenchyma: (5) Pneumoperitoneum of unknown etiology: (6) ABLA (acute blood loss anemia): PLAN: Plan She was transfused 2 units packed red blood cells in total Gallagher catheter and ureteral stent removed. Anticipate clearing of her urine now that these are not causing trauma to the lining of her urinary tract with her history of radiation. Hep-Lock IV Increase oral intake Out of bed to chair, ambulate with assistance as tolerated Continue management of pneumonia A.m. labs Appreciate insertion of IVC filter by vascular and medical management by medicine
[2025-03-14] MEDS: Potassium Chloride Oral Tablet 20 MEQ PO (09:53)
[2025-03-14] MEDS: Citalopram 40 MG TABLET PO (09:53)
[2025-03-14] MEDS: Magnesium Chloride 64 MG Delay Rel.Tablet 128 MG PO (09:53)
[2025-03-14] MEDS: buPROPion (XL) 150 MG TABLET.XL PO (09:53)
[2025-03-14] MEDS: Aztreonam 1 GM in 0.9% Normal Saline (50mL MB+) 50 ML IV (10:09)
[2025-03-14] MEDS: 0.9% Normal Saline (500mL Bag) 500 ML IV (10:39)
[2025-03-14] MEDS: Ceftriaxone 1 GM/50 ML BAG IV (11:52)
--- NOTE | 2025-03-14 13:41 | CASEMGMT ---
SW met with patient and her family and confirmed they would like patient to return to TCU at discharge. Green sheet on chart. Plan: d/c to [facility] TCU under skilled level of care. Lillian AYALA
[2025-03-14] MEDS: Midodrine HCl 5 MG Tablet 10 MG PO ×2 (15:04→18:18)
[2025-03-14 15:38] LABS: Hematocrit 23.2 % (37-47); Hemoglobin 7.2 g/dL (12.0-15.0)
[2025-03-14] MEDS: hydrOXYzine 10 MG Tablet PO (15:49)
--- NOTE | 2025-03-14 19:37 | PCM.PN.GU ---
Subjective Subjective Continuing to have significant gross hematuria. Asymptomatic at this time. No pain. She does have some anxiety but not lightheaded, no chest pain or shortness of breath. Tolerating oral intake. Objective Data Objective Data Vital Signs: Vital Signs Temp Pulse Resp BP Pulse Ox O2 Del Method O2 Flow Rate 98.2 F 88 16 108/59 L 99 Room Air 2 03/14/25 18:14 03/14/25 18:14 03/14/25 18:14 03/14/25 18:14 03/14/25 18:14 03/14/25 18:14 03/14/25 14:55 Oxygen Flow Rate (L/min) 2 Oxygen Delivery Method Room Air Weight: 56 kg Body Mass Index (BMI) 23.3 Intake & Output: Intake and Output for Last 24 Hours 03/12/25 03/13/25 03/14/25 23:59 23:59 23:59 Intake Total 3610.0 / 3610.0 1663.75 / 1663.75 Output Total 61303 / 45414 2049 / 2049 Balance -17450.0 / -25335.0 -386.25 / -386.25 Lab / Micro Data 03/14/25 15:20 03/14/25 05:06 Labs: Laboratory Results - last 24 hr 03/13/25 05:15: Crossmatch See Detail 03/14/25 05:06: WBC 14.8 H, RBC 2.82 L, Hgb 8.1 L, Hct 25.3 L, MCV 89.7 D, MCH 28.7, MCHC 32.0, RDW Std Deviation 58.4 H, RDW Coeff of Osmar 17.8 H, Plt Count 196, MPV 9.4, Immature Gran % (Auto) 0.800, Neut % (Auto) 73.4 H, Lymph % (Auto) 19.1, [place] % (Auto) 6.2, Eos % (Auto) 0.3, Baso % (Auto) 0.2, Absolute Neuts (auto) 10.9 H, Absolute Lymphs (auto) 2.83, Nucleated RBC % 0, Sodium 137, Potassium 4.1, Chloride 109 H, Carbon Dioxide 19.6 L, Anion Gap 8, BUN 17, Creatinine 1.31 H, Estim Creat Clear Calc 26.28 L, Est GFR (MDRD) Non-Af 41 L, BUN/Creatinine Ratio 12.9, Glucose 88, Calcium 7.9 03/14/25 15:20: Hgb 7.2 L, Hct 23.2 L Micro: Microbiology 03/13/25 18:17 Urine Catheter - Gallagher Legionella Antigen - Final 03/13/25 18:17 Urine Catheter - Catheter Streptococcus pneumoniae Antigen (M - Final Physical Exam Const alert, oriented x3 and no apparent distress GI soft to palpation, non-tender and non-distended Narrative: 24 Czech three-way Simplastic Gallagher catheter inserted with 20 cc in the balloon. Continuous bladder irrigation was started following manual irrigation with removal of clot. Urine is flowing and is pink-tinged in color. Patient tolerated the procedure well. Assessment & Plan Assessment/Plan (1) Acute cystitis with hematuria: (2) ABLA (acute blood loss anemia): PLAN: Plan Continuous bladder irrigation Alum 1% irrigation every third bag Scheduled for cystoscopy with clot evacuation and cauterization of bleeding tomorrow morning N.p.o. after midnight Consent signature, the risk benefits and alternatives of the procedure were discussed and she understands and agrees to proceed Await 8 PM H&H results, will likely need transfusion given continued blood loss. 1 unit type and crossed Continue antibiotics and supportive care
[2025-03-14 20:10] LABS: Hematocrit 21.5 % (37-47); Hemoglobin 6.7 g/dL (12.0-15.0)
[2025-03-14] MEDS: Budesonide Respules 0.5 MG/2 ML AMPUL.NEB. INHALATION (20:20)
[2025-03-14] MEDS: SODIUM CL IRRIGATION (22:29)
[2025-03-14] MEDS: AMMONIUM ALUM IRRIGATION (22:29)
[2025-03-15] VITALS (9 sets, daily range): BP systolic 97–135; BP diastolic 51–77; PULSE 75–96; RESP 16–95; TEMP 36.3–36.8; O2SAT 92–98
[2025-03-15] MEDS: Morphine 2 MG/ML Syringe IV ×2 (00:54→04:12)
[2025-03-15] MEDS: 0.9% Saline Lock 10 ML Syringe IV ×4 (00:56→09:35)
[2025-03-15] MEDS: Cosyntropin 0.25 MG in 0.9% Normal Saline (Pres. free 4 ML 150 MG IV (05:00)
[2025-03-15 05:09] LABS: Absolute Lymphocyte Count 2.08 X10^3/uL (0.83-4.51); Absolute Neutrophil Count 8.5 X10^3/uL (2.0-7.7); Basophil# 0.01 X10^3/uL; Basophil% 0.1 % (0-1); Eosinophil# 0.18 X10^3/uL; Eosinophils% 1.6 % (0-5); Hematocrit 22.2 % (37-47); Hemoglobin 7.3 g/dL (12.0-15.0); Lymphocyte # 2.08 X10^3/ul (0.83-4.51); Mean Corp Hgb Conc 32.9 g/dL (32-36); Mean Corpuscular Hgb 29.6 pg (27.0-32.0); Mean Corpuscular Volume 89.9 fL (81-99); Mean Platelet Vol. 9.2 fl (6.2-12.0); Monocyte# 0.73 X10^3/uL; Monocyte% 6.3 % (0-10); NRBC Flagged by Analyzer 0 % (0-5); Neutrophil # 8.46 X10^3/uL (2.7-7.7); Neutrophil % 73.3 % (47-70); Platelet Count 168 K/mm3 (150-450); RBC Distribution Width CV 16.9 % (11.6-14.6); RBC Distribution Width SD 54.5 fl (35.1-43.9); Red Blood Count 2.47 M/mm3 (4.2-5.4); White Blood Count 11.5 K/mm3 (4.4-11.0)
--- NOTE | 2025-03-15 05:47 | PN.URO_ITS ---
Subjective Subjective Patient is sleeping comfortably Objective Data Objective Data Her urine is clear to light pink-tinged this morning with the CBI running. I turned the CBI off. Vital Signs: Vital Signs Temp Pulse Resp BP Pulse Ox O2 Del Method O2 Flow Rate 97.3 F L 78 18 135/76 H 98 Nasal Cannula 2 03/15/25 03:38 03/15/25 03:38 03/15/25 03:38 03/15/25 03:38 03/15/25 03:38 03/15/25 03:40 03/15/25 03:40 Oxygen Flow Rate (L/min) 2 Oxygen Delivery Method Nasal Cannula Weight: 57.3 kg Body Mass Index (BMI) 23.8 Intake & Output: Intake and Output for Last 24 Hours 03/13/25 03/14/25 03/15/25 23:59 23:59 23:59 Intake Total 3610.0 / 3610.0 1663.75 / 1663.75 405 / 405 Output Total 72524 / 81155 2300 / 2300 0 / 0 Balance -58331.0 / -65714.0 -636.25 / -636.25 405 / 405 Lab / Micro Data 03/15/25 05:00 03/14/25 05:06 Labs: Laboratory Results - last 24 hr 03/13/25 05:15: Crossmatch See Detail 03/14/25 05:06: WBC 14.8 H, RBC 2.82 L, Hgb 8.1 L, Hct 25.3 L, MCV 89.7 D, MCH 28.7, MCHC 32.0, RDW Std Deviation 58.4 H, RDW Coeff of Osmar 17.8 H, Plt Count 196, MPV 9.4, Immature Gran % (Auto) 0.800, Neut % (Auto) 73.4 H, Lymph % (Auto) 19.1, [place] % (Auto) 6.2, Eos % (Auto) 0.3, Baso % (Auto) 0.2, Absolute Neuts (auto) 10.9 H, Absolute Lymphs (auto) 2.83, Nucleated RBC % 0, Sodium 137, Potassium 4.1, Chloride 109 H, Carbon Dioxide 19.6 L, Anion Gap 8, BUN 17, C reatinine 1.31 H, Estim Creat Clear Calc 26.28 L, Est GFR (MDRD) Non-Af 41 L, BUN/Creatinine Ratio 12.9, Glucose 88, Calcium 7.9 03/14/25 15:20: Hgb 7.2 L, Hct 23.2 L 03/14/25 20:00: Hgb 6.7 L, Hct 21.5 L 03/15/25 05:00: WBC 11.5 H, RBC 2.47 L, Hgb 7.3 L, Hct 22.2 L, MCV 89.9, MCH 29.6, MCHC 32.9, RDW Std Deviation 54.5 H, RDW Coeff of Osmar 16.9 H, Plt Count 168, MPV 9.2, Immature Gran % (Auto) 0.700, Neut % (Auto) 73.3 H, Lymph % (Auto) 18.0 L, [place] % (Auto) 6.3, Eos % (Auto) 1.6, Baso % (Auto) 0.1, Absolute Neuts (auto) 8.5 H, Absolute Lymphs (auto) 2.08, Nucleated RBC % 0, Cortisol AM Sample 10.50 Micro: Microbiology 03/13/25 18:17 Urine Catheter - Gallagher Legionella Antigen - Final 03/13/25 18:17 Urine Catheter - Catheter Streptococcus pneumoniae Antigen (M - Final Assessment & Plan Assessment/Plan (1) ABLA (acute blood loss anemia): (2) Acute cystitis with hematuria: (3) Pneumonia: (4) Kidney stones: PLAN: Plan Doing well this morning, will await H&H results clinically stable Urine clear to light pink CBI turned off, will continue Gallagher catheter to straight drain and reevaluate this evening. If urine remains clear we will remove Gallagher catheter tonight.
[2025-03-15 06:50] LABS: AST(SGOT) 12 U/L (<=31); Alanine Aminotransfer ALT/SGPT 9 U/L (<=34); Albumin, Serum 2.3 g/dL (3.4-4.8); Alkaline Phosphatase 54 U/L (35-104); Anion Gap 8 (5-15); BUN 18 mg/dL (4-19); BUN/Creat Ratio 11.3 RATIO (10-20); Calcium,Total 7.6 mg/dL (7.6-11.0); Carbon Dioxide 20.1 mmol/L (21.0-32.0); Chloride 114 mmol/L (98-108); Creatinine, Serum 1.61 mg/dL (0.70-1.20); EST Glomerular Filtration Rate 32 (>60); Estimated Creatinine Clearance 21.38 ml/min (50-250); Globulin 2.2 g/dL (2.2-4.2); Glucose 107 mg/dL (70-99); Potassium 3.9 mmol/L (3.3-5.1); Protein, Total 4.4 g/dL (5.9-8.4); Sodium Level 142 mmol/L (133-145); Total Bilirubin 0.24 mg/dL (0.00-1.30)
[2025-03-15] MEDS: Ipratropium/Albuterol Sulfate 3 ML AMPUL.NEB INHALATION ×3 (07:55→19:23)
[2025-03-15] MEDS: Budesonide Respules 0.5 MG/2 ML AMPUL.NEB. INHALATION ×2 (07:55→19:23)
--- NOTE | 2025-03-15 08:15 | PN.HOSP_ITS ---
Reason for Visit Reason for Visit: Diagnoses Malignant neoplasm of unspecified part of left bronchus or lung (03/13/25) Acute posthemorrhagic anemia (03/13/25) Elevated white blood cell count, unspecified (03/13/25) Acute embolism and thrombosis of unspecified deep veins of left lower extremity (03/13/25) Hypotension, unspecified (03/13/25) Pneumonia, unspecified organism (03/13/25) Chronic obstructive pulmonary disease, unspecified (03/13/25) Other specified disorders of peritoneum (03/13/25) Calculus of kidney (03/13/25) Calculus of ureter (03/13/25) Acute cystitis with hematuria (03/13/25) Hematuria, unspecified (03/13/25) Adverse effect of unspecified drugs, medicaments and biological substances, initial encounter (03/13/25) Subjective Subjective Had hematuria requiring CBI. Has been having bladder spasms. Objective Data Objective Data Vital Signs: Vital Signs Temp Pulse Resp BP Pulse Ox O2 Del Method O2 Flow Rate 36.3 C L 81 20 H 135/76 H 98 Nasal Cannula 2 03/15/25 03:38 03/15/25 07:56 03/15/25 07:56 03/15/25 03:38 03/15/25 07:56 03/15/25 07:56 03/15/25 07:56 Oxygen Flow Rate (L/min) 2 Oxygen Delivery Method Nasal Cannula Weight: 57.3 kg Body Mass Index (BMI) 23.8 Intake & Output: Intake and Output for Last 24 Hours 03/13/25 03/14/25 03/15/25 23:59 23:59 23:59 Intake Total 3610.0 / 3610.0 1663.75 / 1663.75 405 / 405 Output Total 18406 / 16724 2300 / 2300 0 / 0 Balance -23347.0 / -01081.0 -636.25 / -636.25 405 / 405 Lab / Micro Data 03/15/25 05:00 03/15/25 05:00 Labs: Laboratory Results - last 24 hr 03/13/25 05:15: Crossmatch See Detail 03/14/25 15:20: Hgb 7.2 L, Hct 23.2 L 03/14/25 20:00: Hgb 6.7 L, Hct 21.5 L 03/15/25 05:00: WBC 11.5 H, RBC 2.47 L, Hgb 7.3 L, Hct 22.2 L, MCV 89.9, MCH 29.6, MCHC 32.9, RDW Std Deviation 54.5 H, RDW Coeff of Osmar 16.9 H, Plt Count 168, MPV 9.2, Immature Gran % (Auto) 0.700, Neut % (Auto) 73.3 H, Lymph % (Auto) 18.0 L, [place] % (Auto) 6.3, Eos % (Auto) 1.6, Baso % (Auto) 0.1, Absolute Neuts (auto) 8.5 H, Absolute Lymphs (auto) 2.08, Nucleated RBC % 0, Sodium 142, Potassium 3.9, Chloride 114 H, Carbon Dioxide 20.1 L, Anion Gap 8, BUN 18, C reatinine 1.61 H, Estim Creat Clear Calc 21.38 L, Est GFR (MDRD) Non-Af 32 L, BUN/Creatinine Ratio 11.3, Glucose 107 H, Calcium 7.6, Total Bilirubin 0.24, AST 12, ALT 9, Alkaline Phosphatase 54, Total Protein 4.4 L, Albumin 2.3 L, Globulin 2.2, Albumin/Globulin Ratio 1.0, Cortisol AM Sample 10.50 03/15/25 06:10: Cortisol AM Sample 22.20 H Micro: Microbiology 03/13/25 18:17 Urine Catheter - Gallagher Legionella Antigen - Final 03/13/25 18:17 Urine Catheter - Catheter Streptococcus pneumoniae Antigen (M - Final Physical Exam Const alert and no apparent distress HEENT head/scalp atraumatic and moist oral mucous membranes Resp normal respiratory effort, no retractions, no use of accessory muscles and clear to auscultation bilaterally Cardio regular rate, regular rhythm, S1 normal heart sound and S2 normal heart sound GI normal to inspection, nondistended, normoactive bowel sounds, soft to palpation, non-tender and non-distended Neuro Sensorium / Orientation: awake and alert Assessment & Plan Assessment/Plan (1) Pneumonia: PLAN: Plan Pneumonia: * suspected gram negative * check SCx. Strep and legionella antigens negative. * PEP * abx with CTX * when ready for discharge, patient can be discharged with doxycyline 100 BID and treat through 03/19 Hypotension * receiving IVF * midodrine to assist. * ACTH stim test normal, so this is not attributable to adrenal insufficiency. LLE DVT * left gastroc. * not a candidate for anticoagulation given hematuria * IVC filter placement by vascular surgery on 03/13 Hematuria * recurred * 2/2 left distal ureteral calculus * s/p cystoscopy on 03/13 w clot evacuation, left ureteral stent insertion * UA negative for infection. UCx showing a bacteria, but CFUs <100, therefore, I dont feel that she has a UTI ABLA * 2/2 hematuria Initially transfuse 1 unit, then count dropped again and received another. Thus far, transfused 2 unit PRBC * monitor Chronic conditions: * lung cancer: s/p ALBERTO lobectomy. Follow up with oncology/pulmonary as outpt. * Crohn's disease: follow up with GI as outpt. * CKD IIIb * hypothyoidism: levothyroxine VTE prophylaxis: RLE SCDs. DW Dtrs at bedside. Charges/Coding Visit Charges Inpatient E&M: 36734 Subs Hosp L2 NIHSS NIHSS Nursing Documentation NIHSS Nursing Documentation: NIHSS: Ischemic Stroke/TIA Start: 03/13/25 17:54 Freq: Status: Active Protocol: Activity Type Activity Date Activity User E-sign Co-sign Detail Recorded Client Recorded Date Recorded By Document 03/13/25 17:54 IA [id number] 03/13/25 17:55 IA 03/13/25 17:54 NIH Stroke Scale [NIHSS] A score of 0 is normal or asymptomatic . Total possible score is 42. Inpatient: RN or Physician to activate a stroke alert for onset of new stroke symptoms or with NIHSS increase >/= 3 points. Following change in neurological status, NIHSS will be performed per physician order or more frequently PRN. -1a. Level of Consciousness 0 - Alert; keenly responsive -1b. LOC Questions 0 - Answers BOTH questions correctly -1c. LOC Commands 0 - Performs BOTH tasks correctly -2. Best Gaze 0 - Normal -3. Visual 0 - No visual loss -4. Facial Palsy 0 - Normal symmetrical movements -5a. Left Arm 0 - No drift; arm holds 90 ( or 45) degrees for full 10 seconds -5b. Right Arm 0 - No drift; arm holds 90 ( or 45) degrees for full 10 seconds -6a. Left Leg UN - Amputation or joint fusion, explain : -'UN' explanation pt with neuropathy, unable to life leg in bed chronic -6b. Right Leg UN - Amputation or joint fusion, explain : -'UN' explanation pt with neuropathy, unable to life leg in bed chronic -7. Limb Ataxia 0 - Absent -8. Sensory 0 - Normal; no sensory loss -9. Best Language 0 - No aphasia; normal -10. Dysarthria 0 - Normal -11. Extinction and Inattention 0 - No abnormality -Total 0 Query Text:A score of 0 is normal or asymptomatic. Total possible score is 42 . ED: Notify Physician for NIHSS increase by > / = 3 points. Inpatient: RN or Physician to activate a stroke alert for NIHSS increase of > / = 3 points. Coma Scale [Assess] -Eye Opening Spontaneous -Motor Obeys Commands -Verbal Oriented [Total] -Coma Scale Total 15
[2025-03-15] MEDS: oxyCODONE 5 MG Tablet PO ×2 (09:34→13:44)
[2025-03-15] MEDS: buPROPion (XL) 150 MG TABLET.XL PO (09:35)
[2025-03-15] MEDS: Citalopram 40 MG TABLET PO (09:35)
[2025-03-15] MEDS: Magnesium Chloride 64 MG Delay Rel.Tablet 128 MG PO (09:35)
[2025-03-15] MEDS: Potassium Chloride Oral Tablet 20 MEQ PO (09:35)
[2025-03-15] MEDS: Ketorolac 15 MG/ML Vial IV (09:40)
[2025-03-15] MEDS: Ceftriaxone 1 GM/50 ML BAG IV (09:50)
[2025-03-15] MEDS: AMMONIUM ALUM IRRIGATION (10:33)
[2025-03-15] MEDS: SODIUM CL IRRIGATION (10:33)
[2025-03-15] MEDS: Oxybutynin 5 MG Tablet PO ×3 (11:08→22:09)
[2025-03-15] MEDS: Midodrine HCl 5 MG Tablet 10 MG PO ×2 (11:12→16:21)
[2025-03-15 12:23] LABS: Hematocrit 24.7 % (37-47); Hemoglobin 7.9 g/dL (12.0-15.0)
[2025-03-15] MEDS: hydrOXYzine 10 MG Tablet PO (13:12)
[2025-03-15] MEDS: Acetaminophen 500 MG Tablet 1000 MG PO ×2 (13:12→22:09)
[2025-03-15] MEDS: Sodium Bicarbonate 650 MG Tablet PO ×2 (13:13→22:09)
[2025-03-16] VITALS (34 sets, daily range): BP systolic 81–134; BP diastolic 41–77; PULSE 67–94; RESP 13–22; TEMP 36.2–36.9; O2SAT 90–100
[2025-03-16] MEDS: Morphine 2 MG/ML Syringe IV (00:14)
[2025-03-16] MEDS: hydrOXYzine 10 MG Tablet PO (00:41)
[2025-03-16 02:37] LABS: Hematocrit 20.1 % (37-47); Hemoglobin 6.2 g/dL (12.0-15.0)
[2025-03-16] MEDS: 0.9% Normal Saline (1000mL) 1,000 ML 999 ML IV (03:30)
--- NOTE | 2025-03-16 04:00 | NURSING ---
Per pt request, her daughter Coco was called and given update.
--- NOTE | 2025-03-16 05:00 | CT_ITS ---
PROCEDURE: ABDOMEN/PELVIS WITHOUT CONT 03/16/2025 REASON FOR EXAM: HEMATURIA TECHNIQUE: Abdomen and pelvis CT without intravenous contrast. Noncontrast technique limits evaluation of the abdominal and pelvic viscera. Coronal and Sagittal reconstruction series were provided. One or more dose reduction techniques were used (e.g., Automated exposure control, adjustment of the mA and/or kV according to patient size, use of iterative reconstruction technique). PATIENT PREPARATION: Per protocol ORAL CONTRAST TYPE: None. COMPARISON: 03/13/2025. FINDINGS: Lung bases: Bilateral basilar airspace disease of the lungs, probably unchanged. Spiculated lesions are again noted in the left lower lobe. Liver: Unremarkable. Gallbladder: Surgically absent. Spleen: Unremarkable. Pancreas: Unremarkable. Adrenals: Unremarkable. Kidneys: Unchanged bilateral nonobstructing renal stones with the largest measuring 6 mm. Interval appearance of moderate to severe bilateral hydroureteronephrosis, probably reflux from distended bladder. Bladder: Significantly distended suggestive of retention containing Gallagher catheter balloon in good position. Acute hemorrhagic products, tissue debris and gas densities are noted in the lumen of the bladder. Reproductive Organs: Unremarkable. Bowel: Fluid-filled dilated small and large bowels, probably ileus. Appendix: Not visualized. Lymph nodes: No lymphadenopathy is seen. Vasculature: Calcified atheromatous plaques. Unremarkable IVC filter. Peritoneum / Retroperitoneum: Unremarkable. Bones: Diffuse spondylosis. Unremarkable left lower quadrant colostomy. CT/Abdomen/Pelvis without Cont IMPRESSION: Distended bladder containing acute hemorrhagic products and tissue debris. Gallagher catheter balloon in the bladder. Interval appearance of moderate to severe bilateral hydroureteronephrosis, prob ably reflux. Interval appearance of diffuse ileus. [facility]
--- NOTE | 2025-03-16 06:42 | PN.HOSP_ITS ---
Hospitalist Note Overnight I was contacted by the [employer] and informed patient had copious bleeding on CBI with hemoglobin decreased to 6.2 g/dL requiring transfusion of both blood and FFP. She was then transferred to ICU for a higher level of care with ongoing hematuria. Finally, Dr. Morrison evaluated patient in ICU in an attempt to clear clots from her catheter with plan to take her back to surgery today at 8:00 AM.
[2025-03-16 06:45] LABS: Absolute Lymphocyte Count 2.62 X10^3/uL (0.83-4.51); Absolute Neutrophil Count 9.3 X10^3/uL (2.0-7.7); Basophil# 0.01 X10^3/uL; Basophil% 0.1 % (0-1); Eosinophil# 0.19 X10^3/uL; Eosinophils% 1.4 % (0-5); Hematocrit 24.6 % (37-47); Hemoglobin 7.8 g/dL (12.0-15.0); Lymphocyte # 2.62 X10^3/ul (0.83-4.51); Lymphocyte % 19.8 % (19-41); Mean Corp Hgb Conc 31.7 g/dL (32-36); Mean Corpuscular Hgb 29.3 pg (27.0-32.0); Mean Corpuscular Volume 92.5 fL (81-99); Monocyte# 0.94 X10^3/uL; Monocyte% 7.1 % (0-10); NRBC Flagged by Analyzer 0.2 % (0-5); Neutrophil # 9.33 X10^3/uL (2.7-7.7); Neutrophil % 70.4 % (47-70); Platelet Count 180 K/mm3 (150-450); RBC Distribution Width CV 17.6 % (11.6-14.6); RBC Distribution Width SD 57.7 fl (35.1-43.9); Red Blood Count 2.66 M/mm3 (4.2-5.4); White Blood Count 13.3 K/mm3 (4.4-11.0)
[2025-03-16] MEDS: Ipratropium/Albuterol Sulfate 3 ML AMPUL.NEB INHALATION ×3 (07:07→19:05)
[2025-03-16] MEDS: Budesonide Respules 0.5 MG/2 ML AMPUL.NEB. INHALATION ×2 (07:10→19:05)
[2025-03-16 07:29] LABS: Anion Gap 6 (5-15); BUN 14 mg/dL (4-19); BUN/Creat Ratio 9.9 RATIO (10-20); Calcium,Total 7.5 mg/dL (7.6-11.0); Carbon Dioxide 18.7 mmol/L (21.0-32.0); Chloride 116 mmol/L (98-108); Creatinine, Serum 1.42 mg/dL (0.70-1.20); EST Glomerular Filtration Rate 38 (>60); Estimated Creatinine Clearance 24.24 ml/min (50-250); Glucose 94 mg/dL (70-99); Potassium 4.2 mmol/L (3.3-5.1); Sodium Level 141 mmol/L (133-145)
--- NOTE | 2025-03-16 07:45 | NURSING ---
At approx. 1900, did bedside report with ronaldo RAMOS and noted urine in sheets bag was a light brown/ tea color with no clots. Was advised by ronaldo that Dr. Morrison had stated to let CBI bag with normal saline/ alum 1% run @ current rate (with roller clamp approx. mcc closed) and to switch to plain normal saline CBI once the normal saline/ alum 1% was complete. Was also advised that manual bladder irrigation was to be done as needed if any clots were noted. at approx. 2300, i noted urine in sheets bag appeared to be very dark brown and noted one very small clot in sheets bag tubing. When i attempted to manually irrigate the catheter, i was unable to aspirate back out the saline flush i instilled. It too multiple attempts by 4 different nurses in order to aspirate large clots and get sheets catheter flowing again. Pt. c/o severe abdominal/ pelvic pain while trying to irrigate but once clots were removed and catheter flowing freely, pt. no longer had c/o pain. by this point current CBI with normal saline / Alum. 1% was completed and normal saline CBI was hung and left to flow freely with roller clamp wide open d/t urine being bright red. approx. 15 minutes later, urine was noted to be pink tinged without clots. on multiple attempts, i tried to slow down rate of CBI, but on each attempt sheets would stop emptying and would need manually irrigated to remove clots of varying sizes and resume emptying. I did this 3+ times over the next 3 hours. as night progressed i noted urine going from pink tinged to bright red. @ approx. 0200, i requested charge nurse to text Dr. Knowles regarding an H&H d/t the color of pt.'s urine and repeated aspiration of clots. I also advised pt. that it would be best to remain NPO in case of need for procedure r/t change in condition, which pt. understood. H&H was ordered and HGB came back @ 6.2. I contacted photocomposition keyboard operator to page Dr. Morrison r/t change in condition @ 2:41- photocomposition keyboard operator sent me to Dr. Morrison's phone. Voicemail left to call PCU back in regards to pt. having copious amounts of clots requiring manual sheets irrigation and bright red urine. Dr. Knowles ordered 1L NS bolus and 1 unit of PRBC when notified of hgb of 6.2. While in room around approx. 0400, i noted that urine was now no longer flowing into catheter bag regardless of CBI flowing freely. I had to manually irrigate 3 times in a row d/t this with aspirate being dark red in color with copious clots each time. Dr. Kincaid ordered pt. to be sent to ICU d/t change in condition. I called report to Elisa on ICU. While preparing pt. to be transferred, Dr. Morrison entered into pt.'s room. I quickly advised DrJovany of what had transpired throughout my shift and Dr. Morrison stated that she wanted pt. to obtain a CT of her abdomen before going up to ICU. I took pt. down to CT where Dr. Morrison was waiting. Following CT, Dr. Morrison told pt. she felt that she had copious clots in her bladder and that her plan was to take her to the OR in order to remove the clots. Following this, pt. was taken to ICU.
--- NOTE | 2025-03-16 07:46 | NURSING ---
Order received from Dr. Anguiano at [address] 2 units of PRBCs on hold. Per lab, pt blood band to at 0515. As pt was already receiving a unit of PRBCs at time of order, lab was unable to re-band patient. States they had to wait 1 hour after PRBCs finished to re-band patient. This RN spoke to TRAFFIC CLERK Obdulia at this time. Obdulia states pt blood had been sent for new blood band. This RN communicated that will now place order for 2U PRBCs to be on hold.
--- NOTE | 2025-03-16 08:10 | PRE.ANES_ITS ---
ASA Classification* ASA Classification ASA Classification: 3 and E Assessment & Plan Anesthesia* Anesthesia Assessment Anesthesia Assessment: Discussed sedation and/or anesthesia options, risks, benefits, and alternatives with patient/parents/legal guardian/POA. Questions invited. The patient/parents/legal guardian/POA seems to understand and agrees to proceed with anesthesia plan. Reviewed the physical assessment, medical history, allergy history and patient home medications list prior to surgery/procedure/anesthetic and documented any changes. Performed airway and anesthesia risk assessments. Anesthesia Type Anesthesia Type: MAC History Source History Obtained from:: Patient and Chart Anesthesia Focused Assessment* Temperature: 97.5 F Pulse Rate: 71 Blood Pressure: 81/64 Respiratory Rate: 18 Pulse Ox: 100 Oxygen Delivery Method: Room Air Airway Assessment Mouth opens: 2 cm Mallampati Score: II Teeth Condition: Dentures and Full Neck Range of motion (ROM): Full ROM Focused Labs Anesthesia Preop lab: CBC WBC 13.3 K/mm3 (4.4-11.0) H 03/16/25 06: 5 RBC 2.66 M/mm3 (4.2-5.4) L 03/16/25 06:32 03/16/25 Hgb 7.8 g/dL (12.0-15.0) L 03/16/25 06:32 03/16/25 Hct 24.6 % (37-47) L 03/16/25 06:32 03/16/25 Plt Count 180 K/mm3 (150-450) 03/16/25 06:32 03/16/25 CHEMISTRY Potassium 4.2 mmol/L (3.3-5.1) 03/16/25 06:32 03/16/25 Sodium 141 mmol/L (133-145) 03/16/25 06:32 03/16/25 Magnesium 1.3 mg/dL (1.5-2.2) L 02/10/25 13:43 02/10/25 Phosphorus 3.1 mg/dL (2.5-4.9) 09/11/24 13:26 09/11/24 BUN 14 mg/dL (4-19) 03/16/25 06:32 03/16/25 Creatinine 1.42 mg/dL (0.70-1.20) H 03/16/25 06:32 Glucose 94 mg/dL (70-99) 03/16/25 06:32 03/16/25 POC Glucose 88 mg/dL (70-110) 02/05/18 12:01 02/05/18 TSH 9.110 uIU/mL (0.300-4.200) H 03/13/25 03:33 COAG PT 14.5 SECONDS (11.7-14.9) 03/13/25 03:33 Pre-Assessment Diagnosis/Proposed Procedure Planned Operative Procedure(s): cysto, clot evacuation Anesthesia History 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- D/C 3/4 FOR STONES 03/03/25 11:20 Any Problems With Anesthesia No 03/14/25 21:26 Cholinesterase deficiency No 03/14/25 21:26 You/Your Family Experience No 03/14/25 21:26 fever (hyperthermia) with Relationship Recent Exposure to Contagious No 03/14/25 21:26 Disease Does patient have nerve No 03/14/25 21:26 stimulator Patient instructed to have No 03/14/25 21:26 device shut off --Does patient have Pacemaker No 03/14/25 21:29 or ICD? When Was Last Pacemaker Check QUESTION #4 FULL TEXT: You/Your Family Experience fever (hyperthermia) with Anesthesia Last Oral Intake Last Oral intake: Last Oral Intake NPO since 00:00 03/14/25 21:29 Meds taken in AM with sips of No 03/14/25 21:29 water? 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 - graduate student instructor: PONV - graduate student instructor Female HX of Motion Sickness HX of N/V After Surgery Non-Smoker Duration of Surgery greater than 60 minutes Number of Risk Factors PONV Score Height & Weight Height & Weight: Anesthesia: Height & Weight Height 5 ft 1 in 03/14/25 21:29 Weight: 57.3 kg 03/14/25 21:29 Body Mass Index (BMI) 23.8 03/14/25 21:29 Respiratory Assessment Respiratory Assessment - graduate student instructor: Respiratory Tract Infection Hx - graduate student instructor Hx Respiratory Tract Infection No 03/14/25 21:26 STOP Sleep Apnea STOP Sleep Apnea - graduate student instructor: STOP Sleep Apnea - graduate student instructor Hx Hypertension Yes 03/14/25 15:53 Hx Sleep Apnea No 03/13/25 12:09 CPAP No 03/13/25 12:09 BIPAP No 03/13/25 12:09 Do you snore loudly (louder No 03/13/25 12:09 than talking or can be heard Do you often feel tired/ No 03/13/25 12:09 fatigued/ sleepy during daytime? Has anyone observed you stop No 03/13/25 12:09 breathing during sleep? STOP Results Negative 03/13/25 12:09 QUESTION #5 FULL TEXT : Do you snore loudly (louder than talking or can be heard through closed doors)? 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 Specify any problems Hx of Preganancy in last 3 N/A 03/13/25 12:09 Months Nurse Filling Out Transfusion [email or web address] 03/13/25 12:09 & Questions: Date: 03/13/25 03/13/25 12:09 Time: 12:10 03/13/25 12:09 Patient unable to answer at Yes 03/13/25 12:09 this time (ie. confused, unrespo /Reproduction History /Reproductive History - graduate student instructor: /Reproductive Hx- graduate student instructor Hx Now No 03/14/25 21:26 Gestational Age (in weeks): EDC: Hx Hx Para Hx Section SAB No 03/14/25 21:26 Active Medications Active Medications: Current Medications Generic Name Dose Route Start Last Admin Trade Name Freq PRN Reason Stop Dose Admin Acetaminophen 1,000 mg 03/13/25 14:00 03/16/25 06:10 Acetaminophen 500 Mg Tablet PO Not Given Q8 PRIMO Albuterol Sulfate 2.5 mg 03/13/25 10:07 Albuterol 2.5 Mg/3 Ml Vial.Neb. INHALATION Q4H PRN shortness of breath or wheezing Albuterol/Ipratropium 3 ml 03/13/25 10:15 03/16/25 07:07 Ipratropium/Albuterol Sulfate 3 Ml Ampul.Neb INHALATION 3 ml Q6HWA.RT PRIMO Administration Budesonide 0.5 mg 03/13/25 10:15 03/16/25 07:10 Budesonide Respules 0.5 Mg/2 Ml Ampul.Neb. INHALATION 0.5 mg Q12H.RT PRIMO Administration Bupropion HCl 150 mg 03/13/25 10:00 03/15/25 09:35 Bupropion (Xl) 150 Mg Tablet.Xl PO 150 mg QAM PRIMO Administration Citalopram Hydrobromide 40 mg 03/13/25 10:00 03/15/25 09:35 Citalopram 40 Mg Tablet PO 40 mg DAILY PRIMO Administration Hydroxyzine HCl 10 mg 03/13/25 09:35 03/16/25 00:41 Hydroxyzine 10 Mg Tablet PO 10 mg TID PRN PRN Administration Anxiety/Agitation Sodium Chloride 500 mls @ 15 mls/hr 03/13/25 11:59 IV PRN PRN Blood Transfusion Sodium Chloride 250 mls @ 15 mls/hr 03/13/25 11:59 IV .[id number] PRN Saline Flush Sodium Chloride 250 mls @ 15 mls/hr 03/13/25 11:59 IV .[id number] PRN Additional IVPB Infusion Ceftriaxone Sodium 1 gm in 50 mls @ 100 mls/hr 03/14/25 11:20 03/15/25 11:12 Rocephin IV Infused Q24 PRIMO Infusion Levothyroxine Sodium 88 mcg 03/14/25 06:00 03/16/25 06:10 Levothyroxine 88 Mcg Tablet PO Not Given DAILY@0600 PRIMO Magnesium Chloride 128 mg 03/14/25 10:00 03/15/25 09:35 Magnesium Chloride 64 Mg Delay Rel.Tablet PO 128 mg DAILY PRIMO Administration Midodrine 10 mg 03/14/25 13:00 03/15/25 16:21 Midodrine Hcl 5 Mg Tablet PO 10 mg TIDCM PRIMO Administration Morphine Sulfate 2 mg 03/13/25 06:28 03/16/25 00:14 Morphine 2 Mg/Ml Syringe IV 2 mg Q3H PRN PRN Administration Pain Score 6-10 Ondansetron HCl 4 mg 03/13/25 06:28 Ondansetron 4 Mg/2 Ml Vial IV Q8H PRN PRN NAUSEA/VOMITING Oxybutynin Chloride 5 mg 03/15/25 14:00 03/16/25 06:09 Oxybutynin 5 Mg Tablet PO Not Given TID PRIMO Oxycodone HCl 5 mg 03/13/25 06:28 03/15/25 13:44 Oxycodone 5 Mg Tablet PO 5 mg Q4H PRN PRN Administration Pain Score 4-10 Potassium Chloride 20 meq 03/13/25 10:00 03/15/25 09:35 Potassium Chloride Oral Tablet 20 Meq PO 20 meq DAILY PRIMO Administration Sodium Bicarbonate 650 mg 03/13/25 14:00 03/16/25 06:10 Sodium Bicarbonate 650 Mg Tablet PO Not Given TID [facility] Sodium Chloride 10 - 40 ml 03/13/25 11:59 03/15/25 09:35 0.9% Saline Lock 10 Ml Syringe IV 20 ml UD PRN Administration SALINE FLUSH PFSH Medical History On home O2 Community acquired pneumonia Hematuria UTI (urinary tract infection) Dyspnea Ureteral stent present Kidney stone Hypothyroidism Depression 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 Crohn's disease Diarrhea Diarrhea Wears hearing aid Wears dentures Cancer Anxiety Thyroid disease Walker as ambulation aid Arthritis Easy bruising TIA (transient ischemic attack) Former smoker COPD (chronic obstructive pulmonary disease) Shortness of breath on exertion History of pain when walking History of echocardiogram History of stress test History of fracture of patella Stage 3b chronic kidney disease (CKD) Osteoporosis Urinary retention Rectal cancer Hydronephrosis Lung cancer Rectal cancer Decreased appetite Abdominal bloating COPD (chronic obstructive pulmonary disease) TIA (transient ischemic attack) Nicotine abuse Depression Anxiety Hypothyroidism COPD exacerbation Chronic bronchitis 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 calculus Hydronephrosis, right Filling defect on imaging study History of rectal cancer Home Medications ?Medication ?Instructions ?Recorded ?Last Taken ?Type bupropion HCl 150 mg 24 hr tablet, 150 mg PO QAM quit smoking 11/28/18 03/03/25 History extended release (Wellbutrin XL) citalopram 40 mg tablet 40 mg PO DAILY Anxiety 04/2403/03/25 History cyanocobalamin (vitamin B-12) 100 mcg IM Q30D Suppleme nt 10/08/19 01/22/25 History 1,000 mcg/mL injection solution cholecalciferol (vitamin D3) 25 25 mcg PO DAILY Supple ment 10/09/21 03/03/25 History mcg (1,000 unit) capsule (Vitamin D3) levothyroxine 88 mcg tablet 88 mcg PO DAILY thyroid 03/04/25 History albuterol sulfate 90 mcg/actuation 2 puff inhalation Q 4H PRN 05/24/24 01/16/25 Rx aerosol inhaler (Ventolin HFA) shortness of breath or wheezing #18 grams potassium chloride 20 mEq 20 meq PO DAILY supplement 0 12/21/24 02/22/25 History tablet,extended release sodium bicarbonate 650 mg tablet 650 mg PO TID supplem ent 01/06/25 03/03/25 History ondansetron 4 mg disintegrating 4 mg PO Q8H PRN nausea and 01/16/25 Unknown Rx tablet vomiting #10 tabs ustekinumab 90 mg/mL subcutaneous 90 mg subcut Q56D un known 01/31/25 01/30/25 History syringe (Stelara) hydroxyzine HCl 10 mg tablet 10 mg PO TID PRN PRN 04/02/2802/21/25 Rx Anxiety/Agitation 7 days #21 tabs apixaban 5 mg tablet (Eliquis) 5 mg PO BID blood thinn er 02/20/25 02/28/25 History magnesium oxide 400 mg (241.3 mg 400 mg PO DAILY suppl ement 02/20/25 03/03/25 History magnesium) tablet cefdinir 300 mg capsule 300 mg PO BID pneumonia #10 caps 02/22/25 02/22/25 Rx fluticasone fur. 200 mcg-umeclid 1 inh inhalation WINNIE Y #60 ea 02/24/25 Unknown Rx 62.5 mcg-vilant 25 mcg inhalat.powder (Trelegy Ellipta) ipratropium 0.5 mg-albuterol 3 mg 3 ml inhalation Q4-6 H PRN 02/24/25 Unknown History (2.5 mg base)/3 mL nebulization shortness of breath soln ipratropium 0.5 mg-albuterol 3 mg 3 ml inhalation Q4H PRN PRN SOB 02/24/25 Unknown Rx (2.5 mg base)/3 mL nebulization &/OR WHEEZING #180 mL soln Allergy/AdvReac Type Severity Reaction Status Date / Time levofloxacin Allergy Mild Rash Verified 03/13/25 03:26 ciprofloxacin HCl (From Allergy Rash Verified 03/13/25 03:26 Cipro) Penicillins Allergy Hives Verified 03/13/25 03:26 codeine AdvReac makes her Verified 03/13/25 03:26 feel weird magnesium citrate AdvReac Nausea Verified 03/13/25 03:26 NSAIDS (Non-Steroidal AdvReac kidney Verified 03/13/25 03:26 Anti-Inflamma damage r/t long-term usage advised not to use Family History Father Heart disease Mother Heart disease Sister Heart disease Diabetes Other Crohn's disease Surgical History S/P lobectomy of lung S/P ureteral stent placement History of cystoscopy History of colonoscopy (~10/2019) History of colostomy History of cholecystectomy History of bowel resection History of hysterectomy History of delivery Social History household members: none Smoking Status: Former smoker Tobacco: How many years used: 53 how long ago did patient quit smoking: Quit 2-5 years prior. second hand exposure: No alcohol intake: never substance use type: does not use caffeine: No what type of physical activity do you participate in: none Review of Systems (Anesthesia) ROS Narrative System reviewed and no additional complaints, except as documented. Physical Exam Const alert and oriented x3
--- NOTE | 2025-03-16 08:32 | PN.HOSP_ITS ---
Reason for Visit Reason for Visit: Diagnoses Malignant neoplasm of unspecified part of left bronchus or lung (03/13/25) Acute posthemorrhagic anemia (03/13/25) Elevated white blood cell count, unspecified (03/13/25) Acute embolism and thrombosis of unspecified deep veins of left lower extremity (03/13/25) Hypotension, unspecified (03/13/25) Pneumonia, unspecified organism (03/13/25) Chronic obstructive pulmonary disease, unspecified (03/13/25) Other specified disorders of peritoneum (03/13/25) Calculus of kidney (03/13/25) Calculus of ureter (03/13/25) Acute cystitis with hematuria (03/13/25) Hematuria, unspecified (03/13/25) Adverse effect of unspecified drugs, medicaments and biological substances, initial encounter (03/13/25) Subjective Subjective Daren hematuria overnight. Had cysto this AM where she had clot extraction. Stent appeared to be irritating the bladder, but there were areas throughout the bladder that were oozing. Stent was removed, bleeding areas cauterized. I saw the patient afterwards and she denies complaints. Objective Data Objective Data Vital Signs: Vital Signs Temp Pulse Resp BP Pulse Ox O2 Del Method O2 Flow Rate 36.4 C L 71 18 81/64 L 100 Room Air 2 03/16/25 08:25 03/16/25 08:25 03/16/25 08:25 03/16/25 08:25 03/16/25 08:25 03/16/25 08:25 03/16/25 07:07 Oxygen Flow Rate (L/min) 2 Oxygen Delivery Method Room Air Weight: 57.3 kg Body Mass Index (BMI) 23.8 Intake & Output: Intake and Output for Last 24 Hours 03/14/25 03/15/25 03/16/25 23:59 23:59 23:59 Intake Total 1663.75 / 1663.75 655 / 1055 2650 / 2650 Output Total 2300 / 2300 6660 / 56718 31397 / 78789 Balance -636.25 / -636.25 -6005 / -9045 -26647 / -42507 Lab / Micro Data 03/16/25 06:32 03/16/25 06:32 Labs: Laboratory Results - last 24 hr 03/13/25 05:15: Crossmatch See Detail 03/15/25 12:13: Hgb 7.9 L, Hct 24.7 L 03/16/25 02:25: Hgb 6.2 L, Hct 20.1 L 03/16/25 06:30: Blood Type A POSITIVE, Antibody Screen NEGATIVE, Crossmatch See Detail 03/16/25 06:32: WBC 13.3 H, RBC 2.66 L, Hgb 7.8 L, Hct 24.6 L, MCV 92.5, MCH 29.3, MCHC 31.7 L, RDW Std Deviation 57.7 H, RDW Coeff of Osmar 17.6 H, Plt Count 180, MPV 9.0, Immature Gran % (Auto) 1.200 H, Neut % (Auto) 70.4 H, Lymph % (Auto) 19.8, [place] % (Auto) 7.1, Eos % (Auto) 1.4, Baso % (Auto) 0.1, Absolute Neuts (auto) 9.3 H, Absolute Lymphs (auto) 2.62, Nucleated RBC % 0.2, Sodium 141, Potassium 4.2, Chloride 116 H, Carbon Dioxide 18.7 L, Anion Gap 6, BUN 14, Creatinine 1.42 H, Estim Creat Clear Calc 24.24 L, Est GFR (MDRD) Non-Af 38 L, B UN/Creatinine Ratio 9.9 L, Glucose 94, Calcium 7.5 L Micro: Microbiology 03/13/25 18:17 Urine Catheter - Gallagher Legionella Antigen - Final 03/13/25 18:17 Urine Catheter - Catheter Streptococcus pneumoniae Antigen (M - Final Radiography Diagnostic Testing: Radiology Impression Abdomen/Pelvis CT 03/16/25 05:00 IMPRESSION: Distended bladder containing acute hemorrhagic products and tissue debris. Gallagher catheter balloon in the bladder. Interval appearance of moderate to severe bilateral hydroureteronephrosis, probably reflux. Interval appearance of diffuse ileus. Reading Location: [place] [id number] Physical Exam Const alert and no apparent distress HEENT head/scalp atraumatic and moist oral mucous membranes Resp normal respiratory effort, no retractions, no use of accessory muscles and clear to auscultation bilaterally Cardio regular rate, regular rhythm, S1 normal heart sound and S2 normal heart sound GI normal to inspection, nondistended, normoactive bowel sounds, soft to palpation, non-tender, non-distended and hepatosplenomegaly Extremity normal to inspection and full ROM Neuro Sensorium / Orientation: awake and alert Assessment & Plan Assessment/Plan (1) Pneumonia: PLAN: Plan Pneumonia: * suspected gram negative * check SCx. Strep and legionella antigens negative. * PEP * abx with CTX * when ready for discharge, patient can be discharged with doxycyline 100 BID and treat through 03/19 Hypotension * receiving IVF * midodrine to assist. * ACTH stim test normal, so this is not attributable to adrenal insufficiency. LLE DVT * left gastroc. * not a candidate for anticoagulation given hematuria * IVC filter placement by vascular surgery on 03/13 Hematuria * recurred warranting transfer to ICU. * 2/2 left distal ureteral calculus * s/p cystoscopy on 03/13 w clot evacuation, left ureteral stent insertion. Repeat Cysto performed 03/16 where stent was irritating the bladder and had generalized oozing throughout the bladder that were cauterized. DW Dr. Morrison, will keep the catheter out. * UA negative for infection. UCx showing a bacteria, but CFUs <100, therefore, I don't feel that she has a UTI ABLA * Transfused now 4 units during the course of her hospitalization. * monitor Chronic conditions: * lung cancer: s/p ALBERTO lobectomy. Follow up with oncology/pulmonary as outpt. * Crohn's disease: follow up with GI as outpt. * CKD IIIb * hypothyroidism: levothyroxine VTE prophylaxis: RLE SCDs. Charges/Coding Visit Charges Inpatient E&M: 98179 Subs Hosp L2 NIHSS NIHSS Nursing Documentation NIHSS Nursing Documentation: NIHSS: Ischemic Stroke/TIA Start: 03/13/25 17:54 Freq: Status: Active Protocol: Activity Type Activity Date Activity User E-sign Co-sign Detail Recorded Client Recorded Date Recorded By Document 03/13/25 17:54 TOÑO [id number] 03/13/25 17:55 TOÑO 03/13/25 17:54 NIH Stroke Scale [NIHSS] A score of 0 is normal or asymptomatic . Total possible score is 42. Inpatient: RN or Physician to activate a stroke alert for onset of new stroke symptoms or with NIHSS increase >/= 3 points. Following change in neurological status, NIHSS will be performed per physician order or more frequently PRN. -1a. Level of Consciousness 0 - Alert; keenly responsive -1b. LOC Questions 0 - Answers BOTH questions correctly -1c. LOC Commands 0 - Performs BOTH tasks correctly -2. Best Gaze 0 - Normal -3. Visual 0 - No visual loss -4. Facial Palsy 0 - Normal symmetrical movements -5a. Left Arm 0 - No drift; arm holds 90 ( or 45) degrees for full 10 seconds -5b. Right Arm 0 - No drift; arm holds 90 ( or 45) degrees for full 10 seconds -6a. Left Leg UN - Amputation or joint fusion, explain : -'UN' explanation pt with neuropathy, unable to life leg in bed chronic -6b. Right Leg UN - Amputation or joint fusion, explain : -'UN' explanation pt with neuropathy, unable to life leg in bed chronic -7. Limb Ataxia 0 - Absent -8. Sensory 0 - Normal; no sensory loss -9. Best Language 0 - No aphasia; normal -10. Dysarthria 0 - Normal -11. Extinction and Inattention 0 - No abnormality -Total 0 Query Text:A score of 0 is normal or asymptomatic. Total possible score is 42 . ED: Notify Physician for NIHSS increase by > / = 3 points. Inpatient: RN or Physician to activate a stroke alert for NIHSS increase of > / = 3 points. Coma Scale [Assess] -Eye Opening Spontaneous -Motor Obeys Commands -Verbal Oriented [Total] -Coma Scale Total 15
--- NOTE | 2025-03-16 09:31 | OP.PCM_ITS ---
Operative Report (Standard) Operative Information Date of Procedure: 03/16/25 Pre-Operative Diagnosis: Gross hematuria, acute blood loss anemia Post-Operative Diagnosis: Same Surgery/Procedure Performed: Cystoscopy, evacuation of clot, fulguration of ble kvng MARTINEZcullet washer: Kia Type of Anesthesia: MAC RN Documented Start/Stop Times: Operation Date: 03/16/25 08:10 Case Time Anesthesia Start 03/16/25 08:23 Into Room 03/16/25 08:23 Procedure Start 03/16/25 08:41 Procedure End 03/16/25 09:03 Anesthesia End 03/16/25 09:17 Out of Room 03/16/25 09:17 Procedure Start Time: 08:41 Procedure Stop Time: 09:03 Select all DRAINS/GRAFTS/IMPLANTS that apply: None Estimated Blood Loss: N/A Specimen collected: No Description of surgery: The patient is a 79-year-old female with gross hematuria that has been intermittently clearing. Approximately 3 AM today she developed significant gross hematuria, clotted off her Simplastic catheter and dropped her hemoglobin 2 g. She is here for evaluation and management. Informed consent was obtained. She was taken to the operating room and placed on the operating room table. Anesthesia monitored the head, neck, airway, IV access and vital signs throughout the case. Once anesthesia was appropriately administered, she was placed into dorsolithotomy position was prepped and draped in usual sterile fashion. The cystoscope was inserted through the urethra under direct visualization into the urinary bladder. A significant amount of clot was irrigated from the bladder. The cystoscope was reinserted. The bladder mucosa was visualized in its entirety. Diffusely throughout the bladder were areas of injection and oozing. There was no mass identified. There was a significantly sized vascularity on the left lateral wall adjacent to the left ureteral orifice likely irritated from the left ureteral stent that was inserted earlier. This was cauterized. Several areas were cauterized for hemostatic control. After hemostasis, the cystoscope was removed. She was awakened and taken to the recovery room in good condition. There were no complications during the procedure. Surgical Findings: Diffuse bladder oozing Complications Complications: No Admit VTE Documentation VTE Present on Admission: Yes VTE Mechan Device Prophylaxis: SCD's VTE Pharm Prophylaxis ordered?: No Reason prophylaxis not ordered: Medical Contraindication
--- NOTE | 2025-03-16 09:43 | PCM.POST.ANE ---
Anesthesia: Postop Eval I Current Vital Signs Temperature: 98.4 F Pulse Rate: 71 Blood Pressure: 117/68 Respiratory Rate: 17 Pulse Ox: 100 Oxygen Delivery Method: Nasal Cannula Oxygen Flow Rate (L/min): 2 Assessment Airway patent: Yes Spontaneous unlabored respirations: Yes Mental status: Awake and Calm nausea: No Vomiting: No Anesthesia Complication: No Fluid Hydration Crystalloid volume administer (ml): 500 Total IV fluid infused: 500 Progress Note Anesthesia document: Postop Eval 1 completed: Yes
--- NOTE | 2025-03-16 09:44 | PCM.POSTANE2 ---
Anesthesia Postop Eval I Sum Postop Eval Completion status Anesthesia document: Postop Eval 1 completed: Yes Anesthesia Postop Eval I Summary Anesthesia Postop Eval I Summary: Anesthesia Postop Eval I: Assessment Summary Airway patent Yes 03/16/25 09:44 Spontaneous unlabored Yes 03/16/25 09:44 respirations Mental status Awake,Calm 03/16/25 09:44 nausea No 03/16/25 09:44 Vomiting No 03/16/25 09:44 Anesthesia Postop Eval I: Fluid Summary Crystalloid volume administer 500 03/16/25 09:44 (ml) Colloids volume administered ( ml) Blood Product volume administered (ml) Total IV fluid infused 500 03/16/25 09:44 Anesthesia Postop Eval I: Summary Notes Anesthesia Complication No 03/16/25 09:44 Anesthesia Complication Comment: Post-operative progress note Anesthesia: Postop Eval II Evaluation Mental status: Awake and Calm Pain Level: 2 nausea: No Vomiting: No
--- NOTE | 2025-03-16 11:20 | NURSING ---
[facility] unit # [id number] verified per Jeanne Crockett RN begun
[2025-03-16] MEDS: Magnesium Chloride 64 MG Delay Rel.Tablet 128 MG PO (12:51)
[2025-03-16] MEDS: Acetaminophen 500 MG Tablet 1000 MG PO ×2 (12:51→21:00)
[2025-03-16] MEDS: 0.9% Saline Lock 10 ML Syringe IV ×3 (12:51→21:00)
[2025-03-16] MEDS: Citalopram 40 MG TABLET PO (12:52)
[2025-03-16] MEDS: Potassium Chloride Oral Tablet 20 MEQ PO (12:52)
[2025-03-16] MEDS: Midodrine HCl 5 MG Tablet 10 MG PO ×2 (12:52→17:25)
[2025-03-16] MEDS: Sodium Bicarbonate 650 MG Tablet PO ×2 (12:52→21:00)
[2025-03-16] MEDS: Oxybutynin 5 MG Tablet PO ×2 (12:54→21:00)
[2025-03-16] MEDS: buPROPion (XL) 150 MG TABLET.XL PO (12:55)
[2025-03-16] MEDS: Ceftriaxone 1 GM/50 ML BAG IV (13:01)
[2025-03-16 14:54] LABS: Hematocrit 19.4 % (37-47); Hemoglobin 6.2 g/dL (12.0-15.0)
[2025-03-16 15:49] LABS: Absolute Neutrophil Count 9.4 X10^3/uL (2.0-7.7); Basophil# 0.01 X10^3/uL; Basophil% 0.1 % (0-1); Eosinophil# 0.01 X10^3/uL; Eosinophils% 0.1 % (0-5); Hematocrit 20.4 % (37-47); Hemoglobin 6.3 g/dL (12.0-15.0); Lymphocyte % 8.5 % (19-41); Mean Corp Hgb Conc 30.9 g/dL (32-36); Mean Corpuscular Hgb 28.5 pg (27.0-32.0); Mean Corpuscular Volume 92.3 fL (81-99); Mean Platelet Vol. 8.9 fl (6.2-12.0); Monocyte% 1.9 % (0-10); NRBC Flagged by Analyzer 0 % (0-5); Neutrophil # 9.37 X10^3/uL (2.7-7.7); Platelet Count 162 K/mm3 (150-450); RBC Distribution Width CV 18.4 % (11.6-14.6); RBC Distribution Width SD 60.3 fl (35.1-43.9); Red Blood Count 2.21 M/mm3 (4.2-5.4); White Blood Count 10.6 K/mm3 (4.4-11.0)
--- NOTE | 2025-03-16 16:09 | NURSING ---
education re chronic illness deferred till acute illness resolving
[2025-03-17] VITALS (16 sets, daily range): BP systolic 98–129; BP diastolic 56–69; PULSE 61–86; RESP 14–22; TEMP 36.3–36.8; O2SAT 94–98
[2025-03-17] MEDS: Levothyroxine 88 MCG Tablet PO (05:18)
[2025-03-17] MEDS: Oxybutynin 5 MG Tablet PO ×3 (05:18→20:04)
[2025-03-17] MEDS: Sodium Bicarbonate 650 MG Tablet PO ×3 (05:18→20:04)
[2025-03-17] MEDS: Acetaminophen 500 MG Tablet 1000 MG PO ×3 (05:18→20:06)
[2025-03-17] MEDS: 0.9% Saline Lock 10 ML Syringe IV ×2 (05:19→10:53)
[2025-03-17 05:41] LABS: Absolute Lymphocyte Count 1.97 X10^3/uL (0.83-4.51); Absolute Neutrophil Count 7.2 X10^3/uL (2.0-7.7); Basophil# 0.02 X10^3/uL; Basophil% 0.2 % (0-1); Eosinophil# 0.01 X10^3/uL; Eosinophils% 0.1 % (0-5); Hematocrit 27.1 % (37-47); Lymphocyte # 1.97 X10^3/ul (0.83-4.51); Lymphocyte % 20.1 % (19-41); Mean Corp Hgb Conc 33.2 g/dL (32-36); Mean Corpuscular Hgb 29.2 pg (27.0-32.0); Mean Platelet Vol. 8.9 fl (6.2-12.0); Monocyte# 0.48 X10^3/uL; Monocyte% 4.9 % (0-10); NRBC Flagged by Analyzer 0 % (0-5); Neutrophil # 7.15 X10^3/uL (2.7-7.7); Neutrophil % 73.1 % (47-70); Platelet Count 181 K/mm3 (150-450); RBC Distribution Width CV 18.2 % (11.6-14.6); RBC Distribution Width SD 54.1 fl (35.1-43.9); Red Blood Count 3.08 M/mm3 (4.2-5.4); White Blood Count 9.8 K/mm3 (4.4-11.0)
[2025-03-17 06:12] LABS: Anion Gap 8 (5-15); BUN 13 mg/dL (4-19); BUN/Creat Ratio 10.5 RATIO (10-20); Calcium,Total 8.2 mg/dL (7.6-11.0); Carbon Dioxide 19.9 mmol/L (21.0-32.0); Chloride 111 mmol/L (98-108); Creatinine, Serum 1.23 mg/dL (0.70-1.20); EST Glomerular Filtration Rate 45 (>60); Estimated Creatinine Clearance 27.99 ml/min (50-250); Glucose 96 mg/dL (70-99); Potassium 4.1 mmol/L (3.3-5.1); Sodium Level 140 mmol/L (133-145)
--- NOTE | 2025-03-17 07:11 | PN.HOSP_ITS ---
Reason for Visit Reason for Visit: Diagnoses Malignant neoplasm of unspecified part of left bronchus or lung (03/13/25) Acute posthemorrhagic anemia (03/13/25) Elevated white blood cell count, unspecified (03/13/25) Acute embolism and thrombosis of unspecified deep veins of left lower extremity (03/13/25) Hypotension, unspecified (03/13/25) Pneumonia, unspecified organism (03/13/25) Chronic obstructive pulmonary disease, unspecified (03/13/25) Other specified disorders of peritoneum (03/13/25) Calculus of kidney (03/13/25) Calculus of ureter (03/13/25) Acute cystitis with hematuria (03/13/25) Hematuria, unspecified (03/13/25) Adverse effect of unspecified drugs, medicaments and biological substances, initial encounter (03/13/25) Subjective Subjective Feeling well. Denies complaints. No further hematuria. Objective Data Objective Data Vital Signs: Vital Signs Temp Pulse Resp BP Pulse Ox O2 Del Method O2 Flow Rate 36.3 C L 62 15 123/63 H 95 Room Air 0 03/17/25 03:00 03/17/25 07:00 03/17/25 07:00 03/17/25 07:00 03/17/25 07:00 03/17/25 07:00 03/16/25 10:15 Oxygen Flow Rate (L/min) 0 Oxygen Delivery Method Room Air Weight: 57.3 kg Body Mass Index (BMI) 23.8 Intake & Output: Intake and Output for Last 24 Hours 03/15/25 03/16/25 03/17/25 23:59 23:59 23:59 Intake Total 655 / 1055 4250 / 4250 Output Total 6660 / 10019 79160 / 98077 520 / 520 Balance -6005 / -9045 -93917 / -16939 -520 / -520 Lab / Micro Data 03/17/25 05:31 03/17/25 05:31 Labs: Laboratory Results - last 24 hr 03/13/25 05:15: Crossmatch See Detail 03/16/25 06:30: Blood Type A POSITIVE, Antibody Screen NEGATIVE, Crossmatch See Detail 03/16/25 06:32: Sodium 141, Potassium 4.2, Chloride 116 H, Carbon Dioxide 18.7 L , Anion Gap 6, BUN 14, Creatinine 1.42 H, Estim Creat Clear Calc 24.24 L, Est GFR (MDRD) Non-Af 38 L, BUN/Creatinine Ratio 9.9 L, Glucose 94, Calcium 7.5 L 03/16/25 14:45: Hgb 6.2 L, Hct 19.4 L 03/16/25 15:43: WBC 10.6, RBC 2.21 L, Hgb 6.3 L, Hct 20.4 L, MCV 92.3, MCH 28.5, MCHC 30.9 L, RDW Std Deviation 60.3 H, RDW Coeff of Osmar 18.4 H, Plt Count 162, MPV 8.9, Immature Gran % (Auto) 1.400 H, Neut % (Auto) 88.0 H, Lymph % (Auto) 8.5 L, [place] % (Auto) 1.9, Eos % (Auto) 0.1, Baso % (Auto) 0.1, Absolute Neuts (auto) 9.4 H, Absolute Lymphs (auto) 0.90, Nucleated RBC % 0 03/17/25 05:31: WBC 9.8, RBC 3.08 L, Hgb 9.0 L, Hct 27.1 L, MCV 88.0, MCH 29.2, MCHC 33.2 D, RDW Std Deviation 54.1 H, RDW Coeff of Osmar 18.2 H, Plt Count 181, MPV 8.9, Immature Gran % (Auto) 1.600 H, Neut % (Auto) 73.1 H, Lymph % (Auto) 20.1, [place] % (Auto) 4.9, Eos % (Auto) 0.1, Baso % (Auto) 0.2, Absolute Neuts (auto) 7.2, Absolute Lymphs (auto) 1.97, Nucleated RBC % 0, Sodium 140, Potassium 4.1, Chloride 111 H, Carbon Dioxide 19.9 L, Anion Gap 8, BUN 13, C reatinine 1.23 H, Estim Creat Clear Calc 27.99 L, Est GFR (MDRD) Non-Af 45 L, BUN/Creatinine Ratio 10.5, Glucose 96, Calcium 8.2 Micro: Microbiology 03/13/25 18:17 Urine Catheter - Gallagher Legionella Antigen - Final 03/13/25 18:17 Urine Catheter - Catheter Streptococcus pneumoniae Antigen (M - Final Physical Exam Const alert and no apparent distress HEENT head/scalp atraumatic and moist oral mucous membranes Resp normal respiratory effort, no retractions, no use of accessory muscles and clear to auscultation bilaterally Cardio regular rate, regular rhythm, S1 normal heart sound and S2 normal heart sound GI normal to inspection, nondistended, normoactive bowel sounds, soft to palpation, non-tender and non-distended Neuro Sensorium / Orientation: awake and alert Assessment & Plan Assessment/Plan (1) Pneumonia: PLAN: Plan Pneumonia: * suspected gram negative * check SCx. Strep and legionella antigens negative. * PEP * abx with CTX * when ready for discharge, patient can be discharged with doxycycline 100 BID and treat through 03/19. Hypotension * resolved * ACTH stim test normal, so this is not attributable to adrenal insufficiency. * dc midodrine LLE DVT * left gastroc. * not a candidate for anticoagulation given hematuria * IVC filter placement by vascular surgery on 03/13 Hematuria * recurred warranting transfer to ICU. * 2/2 left distal ureteral calculus * s/p cystoscopy on 03/13 w clot evacuation, left ureteral stent insertion. Repeat Cysto performed 03/16 where stent was irritating the bladder and had generalized oozing throughout the bladder that were cauterized. DW Dr. Morrison, will keep the catheter out. * UA negative for infection. UCx showing Enterobacter cloacae, but CFUs <1000, therefore, I don't feel that she has a UTI ABLA * improved after transfusion * Transfused now 4 units during the course of her hospitalization. * monitor Chronic conditions: * lung cancer: s/p ALBERTO lobectomy. Follow up with oncology/pulmonary as outpt. * Crohn's disease: follow up with GI as outpt. * CKD IIIb * hypothyroidism: levothyroxine VTE prophylaxis: RLE SCDs. Charges/Coding Visit Charges Inpatient E&M: 06145 Subs Hosp L2 NIHSS NIHSS Nursing Documentation NIHSS Nursing Documentation: NIHSS: Ischemic Stroke/TIA Start: 03/13/25 17:54 Freq: Status: Active Protocol: Activity Type Activity Date Activity User E-sign Co-sign Detail Recorded Client Recorded Date Recorded By Document 03/13/25 17:54 [place] [id number] 03/13/25 17:55 NV 03/13/25 17:54 NIH Stroke Scale [NIHSS] A score of 0 is normal or asymptomatic . Total possible score is 42. Inpatient: RN or Physician to activate a stroke alert for onset of new stroke symptoms or with NIHSS increase >/= 3 points. Following change in neurological status, NIHSS will be performed per physician order or more frequently PRN. -1a. Level of Consciousness 0 - Alert; keenly responsive -1b. LOC Questions 0 - Answers BOTH questions correctly -1c. LOC Commands 0 - Performs BOTH tasks correctly -2. Best Gaze 0 - Normal -3. Visual 0 - No visual loss -4. Facial Palsy 0 - Normal symmetrical movements -5a. Left Arm 0 - No drift; arm holds 90 ( or 45) degrees for full 10 seconds -5b. Right Arm 0 - No drift; arm holds 90 ( or 45) degrees for full 10 seconds -6a. Left Leg UN - Amputation or joint fusion, explain : -'UN' explanation pt with neuropathy, unable to life leg in bed chronic -6b. Right Leg UN - Amputation or joint fusion, explain : -'UN' explanation pt with neuropathy, unable to life leg in bed chronic -7. Limb Ataxia 0 - Absent -8. Sensory 0 - Normal; no sensory loss -9. Best Language 0 - No aphasia; normal -10. Dysarthria 0 - Normal -11. Extinction and Inattention 0 - No abnormality -Total 0 Query Text:A score of 0 is normal or asymptomatic. Total possible score is 42 . ED: Notify Physician for NIHSS increase by > / = 3 points. Inpatient: RN or Physician to activate a stroke alert for NIHSS increase of > / = 3 points. Coma Scale [Assess] -Eye Opening Spontaneous -Motor Obeys Commands -Verbal Oriented [Total] -Coma Scale Total 15
[2025-03-17] MEDS: Citalopram 40 MG TABLET PO (07:35)
[2025-03-17] MEDS: buPROPion (XL) 150 MG TABLET.XL PO (07:35)
[2025-03-17] MEDS: Potassium Chloride Oral Tablet 20 MEQ PO (07:35)
[2025-03-17] MEDS: Magnesium Chloride 64 MG Delay Rel.Tablet 128 MG PO (07:35)
[2025-03-17] MEDS: Ipratropium/Albuterol Sulfate 3 ML AMPUL.NEB INHALATION ×3 (07:47→18:50)
[2025-03-17] MEDS: Budesonide Respules 0.5 MG/2 ML AMPUL.NEB. INHALATION ×2 (07:48→18:50)
--- NOTE | 2025-03-17 08:39 | PN.URO_ITS ---
Subjective Subjective Feeling well, no issues overnight and no complaints today. Objective Data Objective Data Vital Signs: Vital Signs Temp Pulse Resp BP Pulse Ox O2 Del Method O2 Flow Rate 97.9 F 83 14 108/62 96 Room Air 0 03/17/25 08:00 03/17/25 08:00 03/17/25 08:00 03/17/25 08:00 03/17/25 08:00 03/17/25 08:00 03/16/25 10:15 FiO2 25 03/17/25 08:00 Oxygen Flow Rate (L/min) 0 Oxygen Delivery Method Room Air Weight: 57.3 kg Body Mass Index (BMI) 23.8 Intake & Output: Intake and Output for Last 24 Hours 03/15/25 03/16/25 03/17/25 23:59 23:59 23:59 Intake Total 655 / 1055 4250 / 4250 Output Total 6660 / 31872 37459 / 41367 520 / 520 Balance -6005 / -9045 -68854 / -59033 -520 / -520 Lab / Micro Data Attestation: I reviewed the patient's lab results. 03/17/25 05:31 03/17/25 05:31 Labs: Laboratory Results - last 24 hr 03/13/25 05:15: Crossmatch See Detail 03/16/25 06:30: Blood Type A POSITIVE, Antibody Screen NEGATIVE, Crossmatch See Detail 03/16/25 14:45: Hgb 6.2 L, Hct 19.4 L 03/16/25 15:43: WBC 10.6, RBC 2.21 L, Hgb 6.3 L, Hct 20.4 L, MCV 92.3, MCH 28.5, MCHC 30.9 L, RDW Std Deviation 60.3 H, RDW Coeff of Osmar 18.4 H, Plt Count 162, MPV 8.9, Immature Gran % (Auto) 1.400 H, Neut % (Auto) 88.0 H, Lymph % (Auto) 8.5 L, [place] % (Auto) 1.9, Eos % (Auto) 0.1, Baso % (Auto) 0.1, Absolute Neuts (auto) 9.4 H, Absolute Lymphs (auto) 0.90, Nucleated RBC % 0 03/17/25 05:31: WBC 9.8, RBC 3.08 L, Hgb 9.0 L, Hct 27.1 L, MCV 88.0, MCH 29.2, MCHC 33.2 D, RDW Std Deviation 54.1 H, RDW Coeff of Osmar 18.2 H, Plt Count 181, MPV 8.9, Immature Gran % (Auto) 1.600 H, Neut % (Auto) 73.1 H, Lymph % (Auto) 20.1, [place] % (Auto) 4.9, Eos % (Auto) 0.1, Baso % (Auto) 0.2, Absolute Neuts (auto) 7.2, Absolute Lymphs (auto) 1.97, Nucleated RBC % 0, Sodium 140, Potassium 4.1, Chloride 111 H, Carbon Dioxide 19.9 L, Anion Gap 8, BUN 13, C reatinine 1.23 H, Estim Creat Clear Calc 27.99 L, Est GFR (MDRD) Non-Af 45 L, BUN/Creatinine Ratio 10.5, Glucose 96, Calcium 8.2 Micro: Microbiology 03/13/25 18:17 Urine Catheter - Gallagher Legionella Antigen - Final 03/13/25 18:17 Urine Catheter - Catheter Streptococcus pneumoniae Antigen (M - Final Physical Exam Narrative Abdomen soft, nontender nondistended Urine is clear yellow in the pure wick catheter Const alert, oriented x3 and no apparent distress Assessment & Plan Assessment/Plan (1) Gross hematuria: (2) ABLA (acute blood loss anemia): (3) Pneumonia: (4) Hip fracture: PLAN: Plan Significant improvement with clear yellow urine and hemoglobin rising Creatinine is good Plan to transfer out of the unit today Consult Ortho for incidental finding of hip fracture Plan for TCU tomorrow if doing well
[2025-03-17] MEDS: Ceftriaxone 1 GM/50 ML BAG IV (10:53)
[2025-03-17] MEDS: 0.9% Normal Saline (250mL Bag) 250 ML 15 ML IV (10:53)
[2025-03-17] MEDS: hydrOXYzine 10 MG Tablet PO (14:10)
[2025-03-18 05:11] VITALS: BP 125/77; PULSE 71; RESP 16; TEMP 37.1; O2SAT 94
[2025-03-18] MEDS: Sodium Bicarbonate 650 MG Tablet PO ×2 (05:17→14:07)
[2025-03-18] MEDS: Levothyroxine 88 MCG Tablet PO (05:17)
[2025-03-18] MEDS: Oxybutynin 5 MG Tablet PO ×2 (05:18→14:07)
[2025-03-18] MEDS: Acetaminophen 500 MG Tablet 1000 MG PO ×2 (05:19→14:07)
--- NOTE | 2025-03-18 07:01 | PN.HOSP_ITS ---
Reason for Visit Reason for Visit: Diagnoses Malignant neoplasm of unspecified part of left bronchus or lung (03/13/25) Acute posthemorrhagic anemia (03/13/25) Elevated white blood cell count, unspecified (03/13/25) Acute embolism and thrombosis of unspecified deep veins of left lower extremity (03/13/25) Hypotension, unspecified (03/13/25) Pneumonia, unspecified organism (03/13/25) Chronic obstructive pulmonary disease, unspecified (03/13/25) Other specified disorders of peritoneum (03/13/25) Calculus of kidney (03/13/25) Calculus of ureter (03/13/25) Acute cystitis with hematuria (03/13/25) Gross hematuria (03/13/25) Hematuria, unspecified (03/13/25) Fracture of unspecified part of neck of unspecified femur, initial encounter for closed fracture (03/13/25) Adverse effect of unspecified drugs, medicaments and biological substances, initial encounter (03/13/25) Subjective Subjective having pink-colored urine. Objective Data Objective Data Vital Signs: Vital Signs Temp Pulse Resp BP Pulse Ox O2 Del Method O2 Flow Rate 37.1 C 71 16 125/77 H 94 Room Air 0 03/18/25 05:11 03/18/25 05:11 03/18/25 05:11 03/18/25 05:11 03/18/25 05:11 03/18/25 05:11 03/16/25 10:15 FiO2 25 03/17/25 08:00 Oxygen Flow Rate (L/min) 0 Oxygen Delivery Method Room Air Weight: 57.3 kg Body Mass Index (BMI) 23.8 Intake & Output: Intake and Output for Last 24 Hours 03/16/25 03/17/25 03/18/25 23:59 23:59 23:59 Intake Total 4250 / 4250 50 / 350 600 / 600 Output Total 47540 / 24456 1520 / 1520 450 / 450 Balance -53299 / -83043 -1470 / -1170 150 / 150 Lab / Micro Data 03/18/25 09:35 03/18/25 09:35 Micro: Microbiology 03/13/25 18:17 Urine Catheter - Gallagher Legionella Antigen - Final 03/13/25 18:17 Urine Catheter - Catheter Streptococcus pneumoniae Antigen (M - Final Physical Exam Const alert and no apparent distress Constitutional Narrative: up in chair. non-toxic. HEENT head/scalp atraumatic and moist oral mucous membranes Assessment & Plan Assessment/Plan (1) Pneumonia: PLAN: Plan Pneumonia: * suspected gram negative * check SCx. Strep and legionella antigens negative. * PEP * abx with CTX, continue through 03/19. Hypotension * resolved * ACTH stim test normal, so this is not attributable to adrenal insufficiency. * dc'd midodrine and BP doing well. LLE DVT * left gastroc. * not a candidate for anticoagulation given hematuria * IVC filter placement by vascular surgery on 03/13 Hematuria * recurred warranting transfer to ICU. * 2/2 left distal ureteral calculus * s/p cystoscopy on 03/13 w clot evacuation, left ureteral stent insertion. Repeat Cysto performed 03/16 where stent was irritating the bladder and had generalized oozing throughout the bladder that were cauterized. DW Dr. Morrison, will keep the catheter out. * UA negative for infection. UCx showing Enterobacter cloacae, but CFUs <1000, therefore, I don't feel that she has a UTI ABLA * improved after transfusion * Transfused now 5 units during the course of her hospitalization. * monitor Chronic conditions: * lung cancer: s/p ALBERTO lobectomy. Follow up with oncology/pulmonary as outpt. * Crohn's disease: follow up with GI as outpt. * CKD IIIb * hypothyroidism: levothyroxine VTE prophylaxis: RLE SCDs. Charges/Coding Visit Charges Inpatient E&M: 73554 Subs Hosp L2 NIHSS NIHSS Nursing Documentation NIHSS Nursing Documentation: NIHSS: Ischemic Stroke/TIA Start: 03/13/25 17:54 Freq: Status: Active Protocol: Activity Type Activity Date Activity User E-sign Co-sign Detail Recorded Client Recorded Date Recorded By Document 03/13/25 17:54 [place] [id number] 03/13/25 17:55 [place] 03/13/25 17:54 NIH Stroke Scale [NIHSS] A score of 0 is normal or asymptomatic . Total possible score is 42. Inpatient: RN or Physician to activate a stroke alert for onset of new stroke symptoms or with NIHSS increase >/= 3 points. Following change in neurological status, NIHSS will be performed per physician order or more frequently PRN. -1a. Level of Consciousness 0 - Alert; keenly responsive -1b. LOC Questions 0 - Answers BOTH questions correctly -1c. LOC Commands 0 - Performs BOTH tasks correctly -2. Best Gaze 0 - Normal -3. Visual 0 - No visual loss -4. Facial Palsy 0 - Normal symmetrical movements -5a. Left Arm 0 - No drift; arm holds 90 ( or 45) degrees for full 10 seconds -5b. Right Arm 0 - No drift; arm holds 90 ( or 45) degrees for full 10 seconds -6a. Left Leg UN - Amputation or joint fusion, explain : -'UN' explanation pt with neuropathy, unable to life leg in bed chronic -6b. Right Leg UN - Amputation or joint fusion, explain : -'UN' explanation pt with neuropathy, unable to life leg in bed chronic -7. Limb Ataxia 0 - Absent -8. Sensory 0 - Normal; no sensory loss -9. Best Language 0 - No aphasia; normal -10. Dysarthria 0 - Normal -11. Extinction and Inattention 0 - No abnormality -Total 0 Query Text:A score of 0 is normal or asymptomatic. Total possible score is 42 . ED: Notify Physician for NIHSS increase by > / = 3 points. Inpatient: RN or Physician to activate a stroke alert for NIHSS increase of > / = 3 points. Coma Scale [Assess] -Eye Opening Spontaneous -Motor Obeys Commands -Verbal Oriented [Total] -Coma Scale Total 15
[2025-03-18 07:08] VITALS: PULSE 74; RESP 20; O2SAT 94
[2025-03-18] MEDS: Ipratropium/Albuterol Sulfate 3 ML AMPUL.NEB INHALATION ×2 (07:08→13:53)
[2025-03-18] MEDS: Budesonide Respules 0.5 MG/2 ML AMPUL.NEB. INHALATION (07:08)
[2025-03-18 08:45] VITALS: BP 130/69; PULSE 77; RESP 18; TEMP 36.6; O2SAT 97
[2025-03-18] MEDS: Magnesium Chloride 64 MG Delay Rel.Tablet 128 MG PO (09:04)
[2025-03-18] MEDS: Citalopram 40 MG TABLET PO (09:04)
[2025-03-18] MEDS: hydrOXYzine 10 MG Tablet PO ×2 (09:04→14:07)
[2025-03-18] MEDS: buPROPion (XL) 150 MG TABLET.XL PO (09:04)
[2025-03-18] MEDS: Potassium Chloride Oral Tablet 20 MEQ PO (09:05)
[2025-03-18 09:47] LABS: Absolute Lymphocyte Count 2.06 X10^3/uL (0.83-4.51); Absolute Neutrophil Count 6.7 X10^3/uL (2.0-7.7); Basophil# 0.01 X10^3/uL; Basophil% 0.1 % (0-1); Eosinophil# 0.15 X10^3/uL; Eosinophils% 1.6 % (0-5); Hematocrit 27.4 % (37-47); Hemoglobin 8.9 g/dL (12.0-15.0); Lymphocyte # 2.06 X10^3/ul (0.83-4.51); Lymphocyte % 21.9 % (19-41); Mean Corp Hgb Conc 32.5 g/dL (32-36); Mean Corpuscular Hgb 29.2 pg (27.0-32.0); Mean Corpuscular Volume 89.8 fL (81-99); Mean Platelet Vol. 8.5 fl (6.2-12.0); Monocyte# 0.41 X10^3/uL; Monocyte% 4.4 % (0-10); NRBC Flagged by Analyzer 0 % (0-5); Neutrophil # 6.67 X10^3/uL (2.7-7.7); Neutrophil % 70.7 % (47-70); Platelet Count 215 K/mm3 (150-450); RBC Distribution Width CV 19.4 % (11.6-14.6); RBC Distribution Width SD 57.9 fl (35.1-43.9); Red Blood Count 3.05 M/mm3 (4.2-5.4); White Blood Count 9.4 K/mm3 (4.4-11.0)
[2025-03-18] MEDS: Ceftriaxone 1 GM/50 ML BAG IV (09:55)
[2025-03-18 10:36] LABS: Anion Gap 10 (5-15); BUN 14 mg/dL (4-19); BUN/Creat Ratio 9.7 RATIO (10-20); Calcium,Total 8.3 mg/dL (7.6-11.0); Carbon Dioxide 17.6 mmol/L (21.0-32.0); Chloride 109 mmol/L (98-108); Creatinine, Serum 1.47 mg/dL (0.70-1.20); EST Glomerular Filtration Rate 36 (>60); Estimated Creatinine Clearance 23.42 ml/min (50-250); Glucose 142 mg/dL (70-99); Potassium 4.4 mmol/L (3.3-5.1); Sodium Level 137 mmol/L (133-145)
--- NOTE | 2025-03-18 12:21 | PCM.DC.BLA ---
Discharge Summary Date of Admission: 03/13/25 Date of Discharge: 03/18/25 Summary: The patient was admitted with gross hematuria. She was taken to the operating room for removal of a left distal ureteral calculus and stent insertion. The catheter and stent were removed the following morning. She continued to have gross hematuria on and off for several days with decreasing hemoglobin. The decision was made to consult vascular surgery in an IVC filter was placed in order to avoid any further use of anticoagulation. She was transfused a total of 4 units and was taken back to the operating room for cystoscopy, clot evacuation and fulguration of bleeding. Since that time she has had a urine ranging from clear to pink-tinged. Her hemoglobin has remained stable and she is being discharged in stable condition. Physical Exam Const alert, oriented x3 and no apparent distress HEENT normocephalic, head/scalp atraumatic, hearing grossly normal bilaterally and external ears normal Eyes General Eye: normal appearance of both eyes Neck supple General: normal visual inspection and trachea midline Lymph Lymphatic: no lymphedema noted Chest inspection of chest normal Chest: symmetrical chest wall rise Resp normal respiratory effort, normal air movement and no retractions Cardio regular rate and regular rhythm GI soft to palpation, non-tender and non-distended Narrative: Urine is tea colored in her pure wick catheter Back/Spine no CVA tenderness Extremity normal to inspection Skin no rashes or lesions noted, no jaundice, no petechiae and no mottling Neuro oriented x3, CN's II-XII intact bilaterally and moves all extremities Psych mental status grossly normal, thought process normal and cooperative Meaningful Use Info Meaningful Use Meaningful Use Diagnoses (Choose all that apply): None applicable Ischemic Stroke Statin Dosing Therapy Reference: STATIN DOSE THERAPY REFERENCE: * Patients > 75 years receive moderate or high dose statin therapy. * Patients 75 years or YOUNGER should receive HIGH intensity statin dose unless contraindicated. You will be required to document reason for non-treatment if statin daily dose does not meet guidelines. HIGH DOSE STATIN THERAPY DAILY Atorvastatin > than or = to 40 mg Rosuvastatin > than or = to 20 mg Amlodipine + Atorvastatin > than or = to 2.5/40 mg Ezetimibe + Simvastatin 10/80 mg Simvastatin 80mg Discharge Plan Admission Admit Date/Time: 03/13/25 06:28 Attending Provider: Minal Morrison Primary Care Provider: Jorge Luis,Elliot Chi Consulting Providers: Ash Gardner; Willie Kerr; Umer Higuera Discharge Orders/Prescriptions Prescriptions: New sodium chloride 0.9 % (flush) [BD PosiFlush Normal Saline 0.9] Syringe 10 - 40 ml IV UD PRN (Reason: Saline Flush) Qty: 10 0RF oxycodone 5 mg capsule 5 mg PO Q6H PRN (Reason: pain) 3 Days Qty: 12 0RF doxycycline monohydrate 100 mg capsule 100 mg PO BID Qty: 4 0RF Continued bupropion HCl [Wellbutrin XL] 150 mg tablet extended release 24 hr 150 mg PO QAM albuterol sulfate [Ventolin HFA] 90 mcg/actuation HFA aerosol inhaler 2 puff inhalation Q4H PRN (Reason: shortness of breath or wheezing) Qty: 18 6RF ipratropium-albuterol 0.5 mg-3 mg(2.5 mg base)/3 mL solution for nebulization 3 ml inhalation Q4-6H PRN (Reason: shortness of breath) Trelegy Ellipta 200-62.5-25 mcg blister with device 1 inh inhalation DAILY Qty: 60 6RF ipratropium-albuterol 0.5 mg-3 mg(2.5 mg base)/3 mL solution for nebulization 3 ml inhalation Q4H PRN PRN (Reason: SOB &/OR WHEEZING) Qty: 180 6RF citalopram 40 MG tablet 40 mg PO DAILY cyanocobalamin (vitamin B-12) 1,000 MCG/ML solution 100 mcg IM Q30D cholecalciferol (vitamin D3) [Vitamin D3] 25 mcg (1,000 unit) Capsule 25 mcg PO DAILY levothyroxine 88 mcg tablet 88 mcg PO DAILY potassium chloride 20 mEq tablet extended release 20 meq PO DAILY sodium bicarbonate 650 mg tablet 650 mg PO TID Stelara 90 mg/mL syringe 90 mg subcut Q56D hydroxyzine HCl 10 mg Tablet 10 mg PO TID PRN PRN (Reason: Anxiety/Agitation) 7 Days Qty: 21 0RF magnesium oxide 400 mg (241.3 mg magnesium) tablet 400 mg PO DAILY Discontinued ondansetron 4 mg tablet,disintegrating 4 mg PO Q8H PRN (Reason: nausea and vomiting) Qty: 10 0RF Patient Comments: HASNT NEEDED Eliquis 5 mg tablet 5 mg PO BID cefdinir 300 mg capsule 300 mg PO BID Qty: 10 0RF Referrals / Follow Up: Elliot Kang Chi, MD [Primary Care Provider] - Disposition Disposition (needs filled in before D/C Order can be placed): [facility]
--- NOTE | 2025-03-18 12:23 | TREXTCAR_ITS ---
Diet Diet Order/Speech Therapy: 03/15/25 05:56 Diet: Regular - General DC O2, CPAP, BIPAP needs Home O2 Discharge instructions: No Wound(s) rt groin: Wound Type: post IVC filter insertion site Therapies Physical Therapy: Eval and Treat Occupational Therapy: Eval and Treat Problem/Diagnosis (1) Pneumonia: Status: Acute Code(s): J18.9 - Pneumonia, unspecified organism (2) Hip fracture: Status: Acute Code(s): S72.009A - Fracture of unspecified part of neck of unspecified femur, initial encounter for closed fracture (3) Gross hematuria: Status: Acute Code(s): R31.0 - Gross hematuria (4) Chronic hypoxic respiratory failure: Status: Chronic Code(s): J96.11 - Chronic respiratory failure with hypoxia (5) Left leg DVT: Status: Acute Code(s): I82.402 - Acute embolism and thrombosis of unspecified deep veins of left lower extremity (6) History of anal cancer: Status: Acute Code(s): Z85.048 - Personal history of other malignant neoplasm of rectum, rectosigmoid junction, and anus Comment: no evidence of disease. (7) Kidney stones: Status: Chronic Code(s): N20.0 - Calculus of kidney (8) Adenocarcinoma of lung: Status: Acute Code(s): C34.90 - Malignant neoplasm of unspecified part of unspecified bronchus or lung Comment: Non-small cell lung cancer, adenocarcinoma type in the left upper lobe, cli nically stage I(T1 N0 M0). S/P Left Upper lobectomy. CT c/a 01/24/2022 reviewed, no malignancy. Comes for follow up. Labs reviewed. CT 03/06/2024 reviewed, no evidence of disease. No evidence of disease clinically. Plan Significant improvement with clear yellow urine and hemoglobin rising Creatinine is good Plan to transfer out of the unit today Consult Ortho for incidental finding of hip fracture Plan for TCU tomorrow if doing well Allergies/Procedures Done in Hospital Allergies levofloxacin Allergy (Mild, Verified 03/13/25 03:26) Rash ciprofloxacin HCl (From Cipro) Allergy (Verified 03/13/25 03:26) Rash Penicillins Allergy (Verified 03/13/25 03:26) Hives codeine Adverse Reaction (Verified 03/13/25 03:26) makes her feel weird makes her feel weird magnesium citrate Adverse Reaction (Verified 03/13/25 03:26) Nausea NSAIDS (Non-Steroidal Anti-Inflamma Adverse Reaction (Verified 03/13/25 03:26) kidney damage r/t long-term usage advised not to use kidney damage r/t long-term usage advised not to use Procedures: - (cystoscopy, ureteroscopy, stone basket extraction, stent insertion, fulguration bleeding, IVC filter insertion) Type of Care/Length of Stay Estimated LOS: Convalescent Care Less Than 30 days Type of Care Needed: Skilled Rehab Potential: Good Prognosis: Good Additional Orders/Day of Discharge Day of Discharge: 03/18/25 Dietary and Speech Recommendations Dietitian Recommendations/Changes: Continue liberal regular diet as ordered Follow Up Care When: Oncology as soon as possible. When: Urology, call for an appointment Please Follow Up With: Minal Morrison MD Discharge Plan Admission Admit Date/Time: 03/13/25 06:28 Attending Provider: Minal Morrison Primary Care Provider: Elliot Kang Chi Consulting Providers: Ash Gardner; Willie Kerr; Umer Higuera Discharge Orders/Prescriptions Prescriptions: New sodium chloride 0.9 % (flush) [BD PosiFlush Normal Saline 0.9] Syringe 10 - 40 ml IV UD PRN (Reason: Saline Flush) Qty: 10 0RF oxycodone 5 mg capsule 5 mg PO Q6H PRN (Reason: pain) 3 Days Qty: 12 0RF doxycycline monohydrate 100 mg capsule 100 mg PO BID Qty: 4 0RF Continued bupropion HCl [Wellbutrin XL] 150 mg tablet extended release 24 hr 150 mg PO QAM albuterol sulfate [Ventolin HFA] 90 mcg/actuation HFA aerosol inhaler 2 puff inhalation Q4H PRN (Reason: shortness of breath or wheezing) Qty: 18 6RF ipratropium-albuterol 0.5 mg-3 mg(2.5 mg base)/3 mL solution for nebulization 3 ml inhalation Q4-6H PRN (Reason: shortness of breath) Trelegy Ellipta 200-62.5-25 mcg blister with device 1 inh inhalation DAILY Qty: 60 6RF ipratropium-albuterol 0.5 mg-3 mg(2.5 mg base)/3 mL solution for nebulization 3 ml inhalation Q4H PRN PRN (Reason: SOB &/OR WHEEZING) Qty: 180 6RF citalopram 40 MG tablet 40 mg PO DAILY cyanocobalamin (vitamin B-12) 1,000 MCG/ML solution 100 mcg IM Q30D cholecalciferol (vitamin D3) [Vitamin D3] 25 mcg (1,000 unit) Capsule 25 mcg PO DAILY levothyroxine 88 mcg tablet 88 mcg PO DAILY potassium chloride 20 mEq tablet extended release 20 meq PO DAILY sodium bicarbonate 650 mg tablet 650 mg PO TID Stelara 90 mg/mL syringe 90 mg subcut Q56D hydroxyzine HCl 10 mg Tablet 10 mg PO TID PRN PRN (Reason: Anxiety/Agitation) 7 Days Qty: 21 0RF magnesium oxide 400 mg (241.3 mg magnesium) tablet 400 mg PO DAILY Discontinued ondansetron 4 mg tablet,disintegrating 4 mg PO Q8H PRN (Reason: nausea and vomiting) Qty: 10 0RF Patient Comments: HASNT NEEDED Eliquis 5 mg tablet 5 mg PO BID cefdinir 300 mg capsule 300 mg PO BID Qty: 10 0RF Referrals / Follow Up: Elliot Kang Chi, MD [Primary Care Provider] - Disposition Disposition (needs filled in before D/C Order can be placed): [facility] ([facility]) Left leg DVT Qualifiers: Affected thrombotic vein of extremity: unspecified vein of extremity Chronicity: unspecified Qualified Code(s): I82.402 - Acute embolism and thrombosis of unspecified deep veins of left lower extremity (8) Adenocarcinoma of lung Qualifiers: Laterality: left Qualified Code(s): C34.92 - Malignant neoplasm of unspecified part of left bronchus or lung
--- NOTE | 2025-03-18 12:59 | PCM.CONS.GEN ---
Assessment & Plan Assessment/Plan (1) Closed avulsion fracture of anterior inferior iliac spine of pelvis: PLAN: At this time case was discussed with Dr. Umer Higuera who is on-call for orthopedic services. Case and images were reviewed with Dr. Higuera. At this time Dr. Higuera has stated that this case would be a nonsurgical case. Patient is very happy to hear this would not require surgery. Patient was educated to be weightbearing as tolerated with her walker as she was before. Patient was educated she could do rest, ice, Tylenol as needed for pain control. Patient may use [id number] Tylenol 1000mg every 8 hours as needed for pain taking no greater than 3000 mg per day. Patient was encouraged to call our office if she ever develops pain in the left hip or has any orthopedic issues. At this time we can plan to follow-up with patient as needed. Patient was encouraged to call us with any questions, concerns, new problems. HPI Consult Data Date of Consult: 03/18/25 HPI Narrative HPI Narrative: JOSE DE JESUS GOLD, is a 79 F who presents following finding a deep vein thrombosis and placing on Eliquis which then required vascular surgery. Patient states that she was originally seen and had surgery for kidney stones and placed a stent in her kidney. Since admittance into the hospital patient has had many of imaging studies. It was found incidentally on imaging that patient could potentially have a small fracture of her acetabulum. Dr. Higuera the orthopedic surgeon on-call was contacted. Dr. Higuera did review the images who stated that he believes it is an avulsion fracture of the anterior inferior iliac spine. Patient states that she does not have any pain when she walks. Patient states that she did have a fall in January sometime where she was trying to change her close and fell straight down onto her butt and twisted her knee. Patient states that she has no pain in her left hip or buttock. Patient states that she walks normally with a walker. Patient states that she has noticed absolutely no pain in her left hip following the fall but is upset she is just learning of this. Patient denies any new numbness or tingling down her leg. Patient denies any fevers, chills, signs of infection. [facility] Medical History (Updated 03/18/25 @ 13:09 by MARK Parnell) Hip fracture Gross hematuria On home O2 Community acquired pneumonia Hematuria UTI (urinary tract infection) Dyspnea Ureteral stent present Kidney stone Hypothyroidism Depression 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 calculus residential current use of immunosuppressive drug Crohn's disease Diarrhea Diarrhea Wears hearing aid Wears dentures Cancer Anxiety Thyroid disease Walker as ambulation aid Arthritis Easy bruising TIA (transient ischemic attack) Former smoker COPD (chronic obstructive pulmonary disease) Shortness of breath on exertion History of pain when walking History of echocardiogram History of stress test History of fracture of patella Stage 3b chronic kidney disease (CKD) Osteoporosis Urinary retention Rectal cancer Hydronephrosis Lung cancer Rectal cancer Decreased appetite Abdominal bloating COPD (chronic obstructive pulmonary disease) TIA (transient ischemic attack) Nicotine abuse Depression Anxiety Hypothyroidism COPD exacerbation Chronic bronchitis 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 calculus Hydronephrosis, right Filling defect on imaging study History of rectal cancer Home Medications ?Medication ?Instructions ?Recorded ?Last Taken ?Type bupropion HCl 150 mg 24 hr tablet, 150 mg PO QAM quit smoking 11/28/18 03/03/25 History extended release (Wellbutrin XL) citalopram 40 mg tablet 40 mg PO DAILY Anxiety 04/24/19 03/03/25 History cyanocobalamin (vitamin B-12) 100 mcg IM Q30D Supplement 10/08/19 01/22/25 History 1,000 mcg/mL injection solution cholecalciferol (vitamin D3) 25 25 mcg PO DAILY Supplement 10/09/21 03/03/25 History mcg (1,000 unit) capsule (Vitamin D3) levothyroxine 88 mcg tablet 88 mcg PO DAILY thyroid 12/14/23 03/04/25 History albuterol sulfate 90 mcg/actuation 2 puff inhalation Q4H PRN 05/24/24 01/16/25 Rx aerosol inhaler (Ventolin HFA) shortness of breath or wheezing #18 grams potassium chloride 20 mEq 20 meq PO DAILY supplement 12/21/24 02/22/25 History tablet,extended release sodium bicarbonate 650 mg tablet 650 mg PO TID supplement 01/06/25 03/03/25 History ustekinumab 90 mg/mL subcutaneous 90 mg subcut Q56D unknown 01/31/25 01/30/25 History syringe (Stelara) hydroxyzine HCl 10 mg tablet 10 mg PO TID PRN PRN 02/07/25 02/21/25 Rx Anxiety/Agitation 7 days #21 tabs magnesium oxide 400 mg (241.3 mg 400 mg PO DAILY supplement 02/20/25 03/03/25 History magnesium) tablet fluticasone fur. 200 mcg-umeclid 1 inh inhalation DAILY #60 ea 02/24/25 Unknown Rx 62.5 mcg-vilant 25 mcg inhalat.powder (Trelegy Ellipta) ipratropium 0.5 mg-albuterol 3 mg 3 ml inhalation Q4-6H PRN 02/24/25 Unknown History (2.5 mg base)/3 mL nebulization shortness of breath soln ipratropium 0.5 mg-albuterol 3 mg 3 ml inhalation Q4H PRN PRN SOB 02/24/25 Unknown Rx (2.5 mg base)/3 mL nebulization &/OR WHEEZING #180 mL soln doxycycline monohydrate 100 mg 100 mg PO BID #4 caps 03/18/25 Unknown Rx capsule oxycodone 5 mg capsule 5 mg PO Q6H PRN pain 3 days #12 03/18/25 Unknown Rx caps sodium chloride 0.9 % (flush) (BD 10 - 40 ml IV UD PRN Saline Flush 03/18/25 Unknown Rx PosiFlush Normal Saline 0.9 % #10 mL injection syringe) Allergy/AdvReac Type Severity Reaction Status Date / Time levofloxacin Allergy Mild Rash Verified 03/13/25 03:26 ciprofloxacin HCl (From Allergy Rash Verified 03/13/25 03:26 Cipro) Penicillins Allergy Hives Verified 03/13/25 03:26 codeine AdvReac makes her Verified 03/13/25 03:26 feel weird magnesium citrate AdvReac Nausea Verified 03/13/25 03:26 NSAIDS (Non-Steroidal AdvReac kidney Verified 03/13/25 03:26 Anti-Inflamma damage r/t long-term usage advised not to use Family History Father Heart disease Mother Heart disease Sister Heart disease Diabetes Other Crohn's disease Surgical History S/P lobectomy of lung S/P ureteral stent placement History of cystoscopy History of colonoscopy (~10/2019) History of colostomy History of cholecystectomy History of bowel resection History of hysterectomy History of delivery Social History household members: none Smoking Status: Former smoker Tobacco: How many years used: 53 how long ago did patient quit smoking: Quit 2-5 years prior. second hand exposure: No alcohol intake: never substance use type: does not use caffeine: No what type of physical activity do you participate in: none Physical Exam Narrative Patient ambulates with walker without pain at this time. Left hip exam: Without deformity on inspection. Without tenderness to palpation WILLIAM hose in place bilaterally SCDs in place bilaterally Left hip is soft and supple. Passive flexion without pain. passive internal rotation without pain. passive external rotation without pain. Dorsiflexion and plantarflexion are performed without pain or restriction. Sensation intact to light touch. Neurovascularly intact. Negative Homans bilaterally. Const alert, oriented x3 and no apparent distress Lab / Micro Data 03/18/25 09:35 03/18/25 09:35 Labs: Laboratory Results - last 24 hr 03/18/25 09:35: WBC 9.4, RBC 3.05 L, Hgb 8.9 L, Hct 27.4 L, MCV 89.8, MCH 29.2, MCHC 32.5, RDW Std Deviation 57.9 H, RDW Coeff of Osmar 19.4 H, Plt Count 215, MPV 8.5, Immature Gran % (Auto) 1.300 H, Neut % (Auto) 70.7 H, Lymph % (Auto) 21.9, [place] % (Auto) 4.4, Eos % (Auto) 1.6, Baso % (Auto) 0.1, Absolute Neuts (auto) 6.7, Absolute Lymphs (auto) 2.06, Nucleated RBC % 0, Sodium 137, Potassium 4.4, Chloride 109 H, Carbon Dioxide 17.6 L, Anion Gap 10, BUN 14, Creatinine 1.47 H, Estim Creat Clear Calc 23.42 L, Est GFR (MDRD) Non-Af 36 L, BUN/Creatinine Ratio 9.7 L, Glucose 142 H, Calcium 8.3
--- NOTE | 2025-03-18 13:21 | PHA.DC.MR.R ---
Pharmacy [place] Med Reconciliation Pharmacy Service has performed discharge medication reconciliation for this patient. The patient's discharge medication list was reviewed for discrepancies and discrepancies were resolved. Medications at Discharge Home Medications bupropion HCl 150 mg 24 hr tablet, extended release (Wellbutrin XL) 150 mg PO QAM quit smoking 11/28/18 citalopram 40 mg tablet 40 mg PO DAILY Anxiety 04/24/19 cyanocobalamin (vitamin B-12) 1,000 mcg/mL injection solution 100 mcg IM Q30D Supplement 10/08/19 cholecalciferol (vitamin D3) 25 mcg (1,000 unit) capsule (Vitamin D3) 25 mcg PO DAILY Supplement 10/09/21 levothyroxine 88 mcg tablet 88 mcg PO DAILY thyroid 12/14/23 albuterol sulfate 90 mcg/actuation aerosol inhaler (Ventolin HFA) 2 puff inhalation Q4H PRN shortness of breath or wheezing #18 grams 05/24/24 potassium chloride 20 mEq tablet,extended release 20 meq PO DAILY supplement 12/21/24 sodium bicarbonate 650 mg tablet 650 mg PO TID supplement 01/06/25 ustekinumab 90 mg/mL subcutaneous syringe (Stelara) 90 mg subcut Q56D unknown 01/31/25 hydroxyzine HCl 10 mg tablet 10 mg PO TID PRN PRN Anxiety/Agitation 7 days #21 tabs 02/07/25 magnesium oxide 400 mg (241.3 mg magnesium) tablet 400 mg PO DAILY supplement 02/20/25 fluticasone fur. 200 mcg-umeclid 62.5 mcg-vilant 25 mcg inhalat.powder (Trelegy Ellipta) 1 inh inhalation DAILY #60 ea 02/24/25 ipratropium 0.5 mg-albuterol 3 mg (2.5 mg base)/3 mL nebulization soln 3 ml inhalation Q4-6H PRN shortness of breath 02/24/25 ipratropium 0.5 mg-albuterol 3 mg (2.5 mg base)/3 mL nebulization soln 3 ml inhalation Q4H PRN PRN SOB &/OR WHEEZING #180 mL 02/24/25 doxycycline monohydrate 100 mg capsule 100 mg PO BID #4 caps 03/18/25 oxycodone 5 mg capsule 5 mg PO Q6H PRN pain 3 days #12 caps 03/18/25 sodium chloride 0.9 % (flush) (BD PosiFlush Normal Saline 0.9 % injection syringe) 10 - 40 ml IV UD PRN Saline Flush #10 mL 03/18/25
[2025-03-18 13:55] VITALS: PULSE 78; RESP 18
--- NOTE | 2025-03-18 14:06 | CASEMGMT ---
Social Work- Pt is medically ready for discharge per physician. TRAN faxed TCU admissions pt discharge. Bedside nurse updated. TRAN updated pt. Pt reports that her family are all aware of her discharge and SW does not need to notify anyone. Plan: TCU; skilled level of care JOHNATHON Elizondo
[2025-03-18 14:45] VITALS: BP 129/67; PULSE 81; RESP 18; TEMP 36.8; O2SAT 97
[2025-03-22 12:08] LABS: Ca Oxalate, Monohydrate 100 % (.); Size 3x2 mm (.)
== END 2025-03-18 15:06 | disposition skilled nursing facility (03) | DRG 981 ==
LOC: ED 04:30 → PCU 06:07 → ICU 03-16 05:29 → MS3 03-17 10:09
PROVIDERS: Internal Medicine; Admitting Provider Urology; Emergency Provider Emergency Medicine; PCP Family Medicine Geriatric Medicine; Visit Provider Urology
PROC: 0TBB8ZX Excision of Bladder, Via Natural or Artificial Opening Endoscopic, Diagnostic (ICD-10-PCS; principal; 2025-03-13 07:50)
PROC: (CPT 52214; principal; 2025-03-16 08:00)
DX: D68.32 Hemorrhagic disorder due to extrinsic circulating anticoagulants (principal); J18.9 Pneumonia, unspecified organism; I82.422 Acute embolism and thrombosis of left iliac vein; J44.0 Chronic obstructive pulmonary disease with (acute) lower respiratory infection; D62 Acute posthemorrhagic anemia; N13.2 Hydronephrosis with renal and ureteral calculous obstruction; C34.12 Malignant neoplasm of upper lobe, left bronchus or lung; K50.90 Crohn's disease, unspecified, without complications; N13.30 Unspecified hydronephrosis; I82.462 Acute embolism and thrombosis of left calf muscular vein; N18.32 Chronic kidney disease, stage 3b; E03.9 Hypothyroidism, unspecified; M19.90 Unspecified osteoarthritis, unspecified site; F41.8 Other specified anxiety disorders; Z79.01 Long term (current) use of anticoagulants; T50.905A Adverse effect of unspecified drugs, medicaments and biological substances, initial encounter; Z90.710 Acquired absence of both cervix and uterus; Z86.718 Personal history of other venous thrombosis and embolism; M81.0 Age-related osteoporosis without current pathological fracture; Z79.1 Long term (current) use of non-steroidal anti-inflammatories (NSAID); R03.1 Nonspecific low blood-pressure reading; Z79.51 Long term (current) use of inhaled steroids; Z87.891 Personal history of nicotine dependence; Z79.2 Long term (current) use of antibiotics; Z79.890 Hormone replacement therapy; N32.89 Other specified disorders of bladder; R31.0 Gross hematuria; Z85.048 Personal history of other malignant neoplasm of rectum, rectosigmoid junction, and anus
CPT/HCPCS: 36415; 37191; 71250; 74176; 76000; 76937; 80048; 80053; 82360; 82533; 82607; 82746; 84443; 85014; 85018; 85025; 85610; 85730; 86850; 86900; 86901; 87077; 87086; 87088; 87186; 87449; 88300; 93971; 94640; 94668; 97162; 97166; 97530; 97535; 97802; 99152; 99153; 99284; C1769; C1880; C1894; P9016; A4216; C2617; J0834; J2405; J7165; P9017

== ENCOUNTER 2025-03-18 15:13 | Inpatient (IN) | payer MEDICARE, OTHER, SELFPAY ==
[2025-03-18 15:22] VITALS: BP 131/66; PULSE 82; RESP 16; TEMP 36.6; O2SAT 97; BMI 24.4
--- NOTE | 2025-03-18 15:38 | NURSING ---
Call placed to Dr. Kang's office for mutual patient inquiring about monthly B12 injection. Per Dr. Kang's office patient is due on 03/20 for her B12 inj. 1000mcg.
[2025-03-18 15:42] VITALS: PULSE 82; RESP 17; O2SAT 97
--- NOTE | 2025-03-18 20:48 | HP.PCM_ITS ---
HPI - General General Date of Admission: 03/18/25 Date of Service: 03/18/25 Chief Complaint: Here for rehabilitation. HPI Nichelle GOLD, is a 79 year old female with below past medical history hospitalized for acute respiratory failure with hypoxia 2/2 pneumonia/copd exacerbation, complicated by urinary tract infection, admitted to TCU with debility, here for rehabilitation, strengthening, prior to discharge home alone. 02/10/2025 Doppler ultrasound + left lower extremity dvt, treat with Eliquis thru 05/12/2025. 03/04/2025 Dr. Morrison performed cystoscopy, right ureteral stent removal. Eliquis started and stopped multiple times due to persistent hematuria, most recently, Eliquis started at lower dose 2.5mg bid, hematuria persists. 03/10/2025 Doppler ultrasound left lower extremity showed dvt persists, but improved. 03/10/2025 CT c/a/p showed bibasilar pneumonia, resident started on Doxycycline 100mg bid x 7 days, no cough. 03/12/2025 Dr. Morrison contacted me and we agreed Eliquis is intolerable due to persistent hematuria, plan to stop Eliquis forever, consult Dr. Riojas for IVC filter. 03/13/2025 2:59AM, Despite CBI and manual bladder irrigation, resident had bright red hematuria. Discharge to [facility] ED 03/13/2025 for evaluation, admission to [facility]. 03/13/2025 [facility] ED TCU resident with hematuria, hypotension. Hemoglobin 7.7, blood pressure improved with 500cc IV fluid bolus. 03/13/2025 Admit [facility]. IV Aztreonam for urinary tract infection, pneumonia, urine culture pending. Hold Eliquis, give Balfaxar for hematuria 2/2 Eliquis. 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 03/13/2025 Dr. Morrison performed cystoscopy, clot evacuation, left retrograde pyelogram, left ureteroscopy, stone basket extration, left ureteral stent insertion. 03/13/2025 Swathi Spann recommends IVC filter placement for left lower extremity DVT, Eliquis intolerable 2/2 hematuria. 03/13/2025 Breathing okay, Feeling okay. Aztreonam, sputum culture, urine Ag for strep, legionella, PEP for pneumonia. Urinalysis negative, urine culture < 100, UTI ruled out. Transfuse 1 unit PRBC for acute blood loss anemia. 03/13/2025 Dr. Riojas performed insertion of IVC filter. 03/14/2025 Blood pressure low, feeling okay, breathing okay. Ceftriaxone IV given for gram negative pneumonia. IV fluids, Midodrine, ACTH stimulation test for adrenal insufficiency for hypotension. s/p IVC filter for LLE DVT 2/2 anticoagulation intolerable. 03/15/2025 Bladder spasm, hematuria requiring CBI. Discharge on Doxycycline 100mg bid thru 03/19/2025 for pneumonia. ACTH stimulation test ruled out adrenal insufficiency. Transfuse 2 units PRBC for ABLA. 03/16/2025 Hemoglobin 6.2, Transfuse PRBC + FFP, transfer to ICU. 03/16/2025 Dr. Morrison performed cystoscopy, evacuation of clot, Fulguration of bleeding. 03/17/2025 Feeling well, hematuria resolved. Doxycycline 100mg bid thru 03/19/2025 for pneumonia. Stop Midodrine for hypotension. Transfused 4 units PRBC total for ABLA. 03/17/2025 Consult Ortho for incidental left acetabular fracture. 03/18/2025 Dr. Umer Higuera recommended no surgery for asymptomatic left acetabular fracture. 03/18/2025 Admit to TCU with debility, here for rehabilitation, strengthening, prior to discharge home alone. [facility] Medical History Hip fracture Gross hematuria On home O2 Community acquired pneumonia Hematuria UTI (urinary tract infection) Dyspnea Ureteral stent present Kidney stone Hypothyroidism Depression 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 calculus USP current use of immunosuppressive drug Crohn's disease Diarrhea Diarrhea Wears hearing aid Wears dentures Cancer Anxiety Thyroid disease Walker as ambulation aid Arthritis Easy bruising TIA (transient ischemic attack) Former smoker COPD (chronic obstructive pulmonary disease) Shortness of breath on exertion History of pain when walking History of echocardiogram History of stress test History of fracture of patella Stage 3b chronic kidney disease (CKD) Osteoporosis Urinary retention Rectal cancer Hydronephrosis Lung cancer Rectal cancer Decreased appetite Abdominal bloating COPD (chronic obstructive pulmonary disease) TIA (transient ischemic attack) Nicotine abuse Depression Anxiety Hypothyroidism COPD exacerbation Chronic bronchitis 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 calculus Hydronephrosis, right Filling defect on imaging study History of rectal cancer Home Medications ?Medication ?Instructions ?Recorded ?Last Taken ?Type bupropion HCl 150 mg 24 hr tablet, 150 mg PO QAM quit smoking 11/28/18 03/18/25 History extended release (Wellbutrin XL) citalopram 40 mg tablet 40 mg PO DAILY Anxiety 04/2403/18/25 History cyanocobalamin (vitamin B-12) 100 mcg IM Q30D Suppleme nt 10/08/19 01/22/25 History 1,000 mcg/mL injection solution cholecalciferol (vitamin D3) 25 25 mcg PO DAILY Supple ment 10/09/21 03/03/25 History mcg (1,000 unit) capsule (Vitamin D3) levothyroxine 88 mcg tablet 88 mcg PO DAILY thyroid 03/18/25 History albuterol sulfate 90 mcg/actuation 2 puff inhalation Q 4H PRN 05/24/24 01/16/25 Rx aerosol inhaler (Ventolin HFA) shortness of breath or wheezing #18 grams potassium chloride 20 mEq 20 meq PO DAILY supplement 0 12/21/24 03/18/25 History tablet,extended release sodium bicarbonate 650 mg tablet 650 mg PO TID supplem ent 01/06/25 03/18/25 History ustekinumab 90 mg/mL subcutaneous 90 mg subcut Q56D un known 01/31/25 01/30/25 History syringe (Stelara) hydroxyzine HCl 10 mg tablet 10 mg PO TID PRN PRN 04/0 02/2803/18/25 Rx Anxiety/Agitation 7 days #21 tabs magnesium oxide 400 mg (241.3 mg 400 mg PO DAILY suppl ement 02/20/25 03/18/25 History magnesium) tablet fluticasone fur. 200 mcg-umeclid 1 inh inhalation WINNIE Y lungs #60 ea 02/24/25 03/18/25 Rx 62.5 mcg-vilant 25 mcg inhalat.powder (Trelegy Ellipta) ipratropium 0.5 mg-albuterol 3 mg 3 ml inhalation Q4-6 H PRN 02/24/25 03/18/25 History (2.5 mg base)/3 mL nebulization shortness of breath soln ipratropium 0.5 mg-albuterol 3 mg 3 ml inhalation Q4H PRN PRN SOB 02/24/25 Unknown Rx (2.5 mg base)/3 mL nebulization &/OR WHEEZING #180 mL soln doxycycline monohydrate 100 mg 100 mg PO BID PNE #4 ca ps 03/18/25 Unknown Rx capsule oxycodone 5 mg capsule 5 mg PO Q6H PRN pain 3 days #12 03/18/25 Unknown Rx caps sodium chloride 0.9 % (flush) (BD 10 - 40 ml IV UD PRN Saline Flush 03/18/25 03/17/25 Rx PosiFlush Normal Saline 0.9 % #10 mL injection syringe) Allergy/AdvReac Type Severity Reaction Status Date / Time levofloxacin Allergy Mild Rash Verified 03/13/25 03:26 ciprofloxacin HCl (From Allergy Rash Verified 03/13/25 03:26 Cipro) Penicillins Allergy Hives Verified 03/13/25 03:26 codeine AdvReac makes her Verified 03/13/25 03:26 feel weird magnesium citrate AdvReac Nausea Verified 03/13/25 03:26 NSAIDS (Non-Steroidal AdvReac kidney Verified 03/13/25 03:26 Anti-Inflamma damage r/t long-term usage advised not to use Family History Father Heart disease Mother Heart disease Sister Heart disease Diabetes Other Crohn's disease Surgical History S/P lobectomy of lung S/P ureteral stent placement History of cystoscopy History of colonoscopy (~10/2019) History of colostomy History of cholecystectomy History of bowel resection History of hysterectomy History of delivery Social History household members: none Smoking Status: Former smoker Tobacco: How many years used: 53 how long ago did patient quit smoking: Quit 2-5 years prior. second hand exposure: No alcohol intake: never substance use type: does not use caffeine: No what type of physical activity do you participate in: none ROS Constitutional Constitutional: Reports weakness; Denies chills, fever(s) or weight gain ENT HEENT: Denies headache(s), nasal congestion or nasal discharge Cardiovascular Cardiovascular: Denies chest pain or palpitations Respiratory/Chest Respiratory/Chest: Denies cough, excessive phlegm production or shortness of breath with exertion Gastrointestinal Gastrointestinal: Denies abdominal pain, nausea or vomiting Genitourinary Genitourinary: Denies dysuria Musculoskeletal Musculoskeletal: Denies joint pain or joint swelling Integumentary Integumentary: Denies rash or wounds Neurologic Neurologic: Denies focal weakness, numbness or tingling Psychiatric Psychiatric: Denies anxiety, auditory hallucinations, depression, homicidal ideation or suicidal ideation Vital Signs Vital Signs Vital Signs: 03/18/25 15:22 03/18/25 15:42 Temperature 97.9 F Temperature Source Temporal Pulse Rate 82 82 Pulse Rhythm Regular Pulse Strength Normal (2+) Respiratory Rate 16 17 Respiratory Effort Normal Non-Labored Respiratory Depth Normal Respiratory Pattern Normal Blood Pressure 131/66 H Blood Pressure Mean 87 Blood Pressure Source Monitor Blood Pressure Position Semi-Fowlers Blood Pressure Location Left Arm Pulse Ox 97 97 Oxygen Delivery Method Room Air Room Air Weight Weight: 58.655 kg Body Mass Index (BMI) 24.4 Physical Exam Const alert General Appearance: cooperative HEENT normocephalic Eyes PERRL and EOMs intact bilaterally Neck supple, no JVD and no carotid bruits Resp normal respiratory effort, normal air movement and clear to auscultation bilaterally Cardio regular rate and regular rhythm GI normal to inspection, nondistended, normoactive bowel sounds, non-tender and non-distended Extremity normal capillary refill General Extremity: Negative for edema Skin no rashes or lesions noted General Skin Exam: no breakdown Psych affect normal Appearance: appropriate Assessment & Plan Assessment/Plan (1) Debility: (2) Hematuria: (3) Left ureteral stone: (4) Left leg DVT: QUALIFIERS: Affected thrombotic vein of extremity: unspecified vein of extremity Chronicity: unspecified Qualified Code(s): I82.402 - Acute embolism and thrombosis of unspecified deep veins of left lower extremity (5) Pneumonia: (6) ABLA (acute blood loss anemia): (7) COPD (chronic obstructive pulmonary disease): (8) Depression: (9) Vitamin D deficiency: (10) Vitamin B12 deficiency: (11) Pruritus: (12) Hypothyroidism: (13) Hypokalemia: (14) Metabolic acidosis: PLAN: Plan 79 year old female with below past medical history hospitalized for hemorrhagic shock 2/2 hematuria/left ureteral stone requiring urologic surgery x [address] Morrison, complicated by acute blood loss anemia requiring transfusion, p neumonia, left lower extremity dvt requiring IVC filter placement, Left acetabular fracuture treated non-surgically, admitted to TCU with debility, here for rehabilitation, strengthening, priot to discharge home alone. * Debility - PT/OT. * Pain - Tylenol 1000mg q6 prn pain (1-3), Oxycodone 5mg q4 prn pain (4-10). * Bowel - senna/colace 2 tablets bid. * Adult immunization - Administer pneumonia vaccine, covid vaccine, flu vaccine as appropriate. * DVT prophylaxis - Contraindicated 2/2 hematuria. * Vitamin D deficiency - D3 25mg daily. * Vitamin B12 deficiency - B12 1000mcg im q30d. * Pneumonia - Doxycycline 100mg bid thru 03/20/2025. * COPD - Fluticasone/Salmeterol 232-14 1 puff q12, Duoneb 3mL q4 prn. * Pruritus - Hydroxyzine 10mg tid prn. * Hypothyroidism - Levothyroxine 88mcg daily. * Hypomagnesemia - Magnesium chloride 128mg daily. * Skin irritation - Calmoseptine topical bid. * Hypokalemia - KCL 20meq daily. * Metabolic acidosis - Sodium bicarb 650mg tid. The following psychotropic medication was present on admission: Bupropion XL 150mg daily. Psychotropic medication therapy is indicated for a diagnosis of: Major depression. Based on my clinical evaluation, continuation of the medication is necessary at this time. Gradual dose reduction plan (select one): ____ GDR will be attempted. Will monitor patient symptoms and behaviors in response to GDR. __x__ GRD contraindicated. 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 The following psychotropic medication was present on admission: Citalopram 40mg daily. Psychotropic medication therapy is indicated for a diagnosis of: Major depression. Based on my clinical evaluation, continuation of the medication is necessary at this time. Gradual dose reduction plan (select one): ____ GDR will be attempted. Will monitor patient symptoms and behaviors in response to GDR. _x___ GRD contraindicated. 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
[2025-03-18] MEDS: Senna/Docusate Sodium 1 Tablet 2 TABLET PO (21:24)
[2025-03-18] MEDS: 0.9% Saline Lock 10 ML Syringe IV (21:24)
[2025-03-18] MEDS: Sodium Bicarbonate 650 MG Tablet PO (21:24)
[2025-03-18] MEDS: Fluticasone/Salmeterol 232-14 Inhaler 1 PUFF INHALATION (21:24)
[2025-03-18] MEDS: Menthol/Lanolin/Calamine/Znox 113 GM Tube 1 APPLIC TOPICAL (21:25)
[2025-03-18] MEDS: Doxycycline 100 MG CAPSULE PO (21:25)
[2025-03-18] MEDS: hydrOXYzine 10 MG Tablet PO (21:30)
[2025-03-19 05:53] LABS: Absolute Lymphocyte Count 2.28 X10^3/uL (0.83-4.51); Absolute Neutrophil Count 6.7 X10^3/uL (2.0-7.7); Basophil# 0.02 X10^3/uL; Basophil% 0.2 % (0-1); Eosinophil# 0.19 X10^3/uL; Eosinophils% 1.9 % (0-5); Hematocrit 28.2 % (37-47); Hemoglobin 9.1 g/dL (12.0-15.0); Lymphocyte # 2.28 X10^3/ul (0.83-4.51); Lymphocyte % 22.7 % (19-41); Mean Corp Hgb Conc 32.3 g/dL (32-36); Mean Corpuscular Hgb 29.3 pg (27.0-32.0); Mean Corpuscular Volume 90.7 fL (81-99); Mean Platelet Vol. 8.6 fl (6.2-12.0); Monocyte# 0.72 X10^3/uL; Monocyte% 7.2 % (0-10); NRBC Flagged by Analyzer 0 % (0-5); Neutrophil # 6.66 X10^3/uL (2.7-7.7); Neutrophil % 66.2 % (47-70); Platelet Count 234 K/mm3 (150-450); Red Blood Count 3.11 M/mm3 (4.2-5.4); White Blood Count 10.1 K/mm3 (4.4-11.0)
[2025-03-19] MEDS: Levothyroxine 88 MCG Tablet PO (06:00)
[2025-03-19] MEDS: Sodium Bicarbonate 650 MG Tablet PO ×3 (06:00→21:20)
[2025-03-19 06:16] LABS: Anion Gap 7 (5-15); BUN 14 mg/dL (4-19); BUN/Creat Ratio 9.1 RATIO (10-20); Calcium,Total 8.6 mg/dL (7.6-11.0); Carbon Dioxide 21.3 mmol/L (21.0-32.0); Chloride 108 mmol/L (98-108); Creatinine, Serum 1.51 mg/dL (0.70-1.20); EST Glomerular Filtration Rate 35 (>60); Estimated Creatinine Clearance 24.87 ml/min (50-250); Glucose 80 mg/dL (70-99); Potassium 4.4 mmol/L (3.3-5.1); Sodium Level 136 mmol/L (133-145)
[2025-03-19 08:38] VITALS: BP 105/61; PULSE 99; RESP 16; TEMP 36.9; O2SAT 95
[2025-03-19] MEDS: hydrOXYzine 10 MG Tablet PO ×2 (08:41→14:58)
[2025-03-19] MEDS: Magnesium Chloride 64 MG Delay Rel.Tablet 128 MG PO (08:41)
[2025-03-19] MEDS: Citalopram 40 MG TABLET PO (08:42)
[2025-03-19] MEDS: buPROPion (XL) 150 MG TABLET.XL PO (08:42)
--- NOTE | 2025-03-19 08:42 | PCM.PN.DRR ---
Documented by User: Carrol Foss 03/19/25 12:39 TCU RX Drug Regimen Review Subjective/Objective Subjective/Objective Subjective: TCU Admission. 79 YOF TCU resident hospitalized for hemorrhagic shock 2/2 hematuria/left ureteral stone requiring urologic surgery x [address] Morrison, complicated by acute blood loss anemia requiring transfusion, pneumonia, left lower extremity dvt requiring IVC filter placement, Left acetabular fracture treated non-surgically. Admitted to TCU with debility for strengthening and rehabilitation. Objective: Allergies levofloxacin Allergy (Mild, Verified 03/13/25 03:26) Rash ciprofloxacin HCl (From Cipro) Allergy (Verified 03/13/25 03:26) Rash Penicillins Allergy (Verified 03/13/25 03:26) Hives codeine Adverse Reaction (Verified 03/13/25 03:26) makes her feel weird makes her feel weird magnesium citrate Adverse Reaction (Verified 03/13/25 03:26) Nausea NSAIDS (Non-Steroidal Anti-Inflamma Adverse Reaction (Verified 03/13/25 03:26) kidney damage r/t long-term usage advised not to use kidney damage r/t long-term usage advised not to use Current Medications Generic Name Dose Route Start Last Admin Trade Name Freq PRN Reason Stop Dose Admin Acetaminophen 1,000 mg 03/18/25 20:46 Acetaminophen 500 Mg Tablet PO Q6H PRN PRN Pain Score 1-3 Albuterol/Ipratropium 3 ml 03/18/25 15:22 Ipratropium/Albuterol Sulfate 3 Ml Ampul.Neb INHALATION Q4H PRN PRN SOB &/OR WHEEZING Bupropion HCl 150 mg 03/19/25 10:00 Bupropion (Xl) 150 Mg Tablet.Xl PO QAM [facility] Calamine/Phenol 1 applic 03/18/25 22:00 03/18/25 21:25 Menthol/Lanolin/Calamine/Znox 113 Gm Tube TOPICAL 1 applic BID [facility] Administration Protocol Cholecalciferol 25 mcg 03/19/25 10:00 Cholecalciferol (Vit D3) 25 Mcg Tablet (1,000 Units) PO DAILY [facility] Citalopram Hydrobromide 40 mg 03/19/25 10:00 Citalopram 40 Mg Tablet PO DAILY [facility] Cyanocobalamin 1,000 mcg 03/20/25 10:00 Cyanocobalamin (B12) 1,000 Mcg/Ml Vial IM Q30D [facility] Doxycycline Monohydrate 100 mg 03/18/25 22:00 03/18/25 21:25 Doxycycline 100 Mg Capsule PO 03/20/25 10:01 100 mg BID [facility] Administration Hydroxyzine HCl 10 mg 03/18/25 15:22 03/18/25 21:30 Hydroxyzine 10 Mg Tablet PO 10 mg TID PRN PRN Administration Anxiety/Agitation Levothyroxine Sodium 88 mcg 03/19/25 06:00 03/19/25 06:00 Levothyroxine 88 Mcg Tablet PO 88 mcg DAILY@0600 [facility] Administration Magnesium Chloride 128 mg 03/19/25 10:00 Magnesium Chloride 64 Mg Delay Rel.Tablet PO DAILY [facility] Oxycodone HCl 5 mg 03/18/25 20:47 Oxycodone 5 Mg Tablet PO Q4H PRN Pain Score 4-10 or Pre PT/OT Potassium Chloride 20 meq 03/19/25 10:00 Potassium Chloride Oral Tablet 20 Meq PO DAILY [facility] Fluticasone/Salmeterol 1 puff 03/18/25 22:00 03/18/25 21:24 Fluticasone/Salmeterol 232-14 Inhaler INHALATION 1 puff Q12 [facility] Administration Senna/Docusate Sodium 2 tablet 03/18/25 22:00 03/18/25 21:24 Senna/Docusate Sodium 1 Tablet PO 2 tablet BID [facility] Administration Sodium Bicarbonate 650 mg 03/18/25 22:00 03/19/25 06:00 Sodium Bicarbonate 650 Mg Tablet PO 650 mg TID [facility] Administration Sodium Chloride 10 - 40 ml 03/18/25 15:27 03/18/25 21:24 0.9% Saline Lock 10 Ml Syringe IV 20 ml UD PRN Administration SALINE FLUSH Tuberculin PPD 0.1 ml 03/19/25 10:00 Tuberculin,Purif.Prot.Deriv. 50 Tu/Ml Vial ID 03/19/25 10:01 X1 ONE Tuberculin PPD 0.1 ml 03/26/25 10:00 Tuberculin,Purif.Prot.Deriv. 50 Tu/Ml Vial ID 03/26/25 10:01 X1 ONE Umeclidinium [place] 1 puff 03/19/25 10:00 Umeclidinium [place] Inhaler INHALATION DAILY [facility] Problem List Pruritus (Acute) Left ureteral stone (Acute) ABLA (acute blood loss anemia) (Acute) Left leg DVT (Acute) Pneumonia (Acute) Vitamin D deficiency (Acute) Vitamin B12 deficiency (Acute) Hypokalemia (Acute) Metabolic acidosis (Acute) Hypothyroidism (Acute) Depression (Acute) Hematuria (Acute) COPD (chronic obstructive pulmonary disease) (Chronic) Vital Signs Temp Pulse Resp BP Pulse Ox O2 Del Method 98.4 F 99 16 105/61 95 Room Air 03/19/25 08:38 03/19/25 08:38 03/19/25 08:38 03/19/25 08:38 03/19/25 08:38 03/19/25 08:38 Oxygen Delivery Method Room Air Weight: 58.655 kg Body Mass Index (BMI) 24.4 Sodium 136 mmol/L (133-145) 03/19/25 05:13 Potassium 4.4 mmol/L (3.3-5.1) 03/19/25 05:13 Chloride 108 mmol/L (98-108) 03/19/25 05:13 Carbon Dioxide 21.3 mmol/L (21.0-32.0) 03/19/25 05:13 Anion Gap 7 (5-15) 03/19/25 05:13 BUN 14 mg/dL (4-19) 03/19/25 05:13 Creatinine 1.51 mg/dL (0.70-1.20) H 03/19/25 05:13 Est GFR (MDRD) Non-Af 35 (>60) L 03/19/25 05:13 BUN/Creatinine Ratio 9.1 RATIO (10-20) L 03/19/25 05:13 Glucose 80 mg/dL (70-99) 03/19/25 05:13 Assessment/Plan: 1. Pain: acetaminophen 1000mg PO Q6H PRN pain 1-3 and oxycodone 5mg Q4H PRN pain 4-10. No doses given so far. Please continue to monitor for increased pain and PRN usage. 2. Bowel: senna/docusate 2T PO BID. Please continue to monitor for constipation and PRN usage. Last documented bowel movement was 03/18/25. 3. Pneumonia: doxycycline 100mg PO BID thru 03/20/25. Please continue to monitor for S/S of infection, diarrhea, and upset stomach. 4. COPD: fluticasone/salmeterol 232/14mcg 1 puff inhalation Q12, Incruse Ellipta 1puff daily and ipratropium/albuterol 3mL inhalation Q4H PRN SOB/wheezing. Please continue to monitor for S/S of infection, glucose (last 80mg/dL), HR (last 82), PRN usage. Please rinse mouth with water and spit following fluticasone administration to prevent thrush. No PRN doses given at this time. 5. Hypothyroidism: levothyroxine 88mcg PO daily. Please continue to monitor TSH (last 03/13/25) and S/S of hypo/hyperthyroidism. 6. Hypokalemia: potassium chloride 20mEq PO daily. Please continue to monitor potassium (last 3.8mmol/L). 7. Hypomagnesemia: magnesium chloride 128mg PO daily. Please continue to monitor magnesium (last 1.3mg/dL 02/10/25). 8. Metabolic acidosis: sodium bicarbonate 650mg PO TID. Please continue to monitor CO2 (last 21.3mmol/L 03/19/25). 9. Vitamin D and B12 deficiencies: cyanocobalamin 1000mcg IM monthly and cholecalciferol 25mcg PO daily. Please continue to monitor vitamin D (last 02/19/25) and vitamin B12 (last 03/13/25 WNL). 10. Skin irritation: Calmoseptine topical BID. Please continue to monitor. Assessment/Plan for indications treated with psychotropic medications: 1. Depression: citalopram 40mg PO daily and bupropion XL 150mg PO daily. Please see physician note regarding GDR. Monitor for efficacy including resident symptoms, behaviors and indications of distress. Monitor for tolerability including mental status, cognition, excessive sleepiness, withdrawal or decreased participation in activities and decline in physical functioning. Maximize use of nonpharmacologic/behavioral interventions to facilitate dose reduction or discontinuation as appropriate. Please evaluate the appropriateness of GDR unless contraindicated. If appropriate, GDR should be attempted in 2 separate quarters within the first year of use or admission to TCU. If GDR attempted, monitor resident symptoms/behaviors. Monitor for diarrhea, nausea, headache, anxiety or drowsiness, suicidal thoughts or behaviors (Boxed Warning), symptoms of bleeding, symptoms of serotonin syndrome (including agitation, confusion, hyperreflexia, rigidity/myoclonus, tremor, tachycardia, tachypnea), sodium levels (last Na = 136mmol/L). Monitor for anxiety, agitation and insomnia, seizure activity, nausea, and body weight, headache, suicidal thoughts or behaviors (Boxed Warning). Monitor blood pressure and HR. BP range since admission = 105-129/61-67; HR range since admission = 78-99. Medication is renally eliminated (bupropion), monitor renal function periodically. Scr = 1.51mg/dL 03/19/25. 2. Anxiety/agitation: hydroxyzine 10mg PO TID PRN anxiety/agitation. One dose given so far. Monitor prn usage and efficacy of prn doses including resident symptoms, behaviors and indications of distress. Monitor for tolerability including mental status, cognition, excessive sleepiness, withdrawal or decreased participation in activities and decline in physical functioning. Maximize use of nonpharmacologic/behavior interventions to minimize use of prn medication. Prn psychotropic order must be renewed at 14 days per policy. Evaluate continued need for medication, effect of prn medication on resident?s symptoms/distress and tolerability to determine the appropriateness of order renewal. Medical chart and medication regimen reviewed. The following medication irregularities or issues were identified: None Date Date of Note: 03/19/25 Documented by User: Dr. Elliot Kang MD 03/19/25 13:06 TCU RX Drug Regimen Review Provider Comments Provider responsibility Provider Comments to Recommendations by Pharmacy Agree
[2025-03-19] MEDS: Umeclidinium Bromide Inhaler 1 PUFF INHALATION (08:43)
[2025-03-19] MEDS: Cholecalciferol (VIT D3) 25 MCG TABLET (1,000 UNITS) PO (08:43)
[2025-03-19] MEDS: Doxycycline 100 MG CAPSULE PO ×2 (08:43→21:21)
[2025-03-19] MEDS: Fluticasone/Salmeterol 232-14 Inhaler 1 PUFF INHALATION ×2 (08:43→21:20)
[2025-03-19] MEDS: Potassium Chloride Oral Tablet 20 MEQ PO (08:43)
[2025-03-19] MEDS: Menthol/Lanolin/Calamine/Znox 113 GM Tube 1 APPLIC TOPICAL ×2 (08:44→21:21)
--- NOTE | 2025-03-19 08:47 | NURSING ---
Fashion Patternmaker Note; Activity Asset: Olga Bowman has returned to TCU for more therapy and remains independent in her choice of daily activities w/reminders. She has her smartphone, reads, watches tv, enjoys word puzzles, bingo and small group activities. Her family will bring in items she may need or want. She welcomes visits from the assistant infant teacher and therapy dog when available. Staff will encourage social activities, remind her of weekly activities and respect her right to say no.
[2025-03-19] MEDS: 0.9% Saline Lock 10 ML Syringe IV ×2 (08:56→21:28)
[2025-03-19] MEDS: oxyCODONE 5 MG Tablet PO (11:45)
[2025-03-19] MEDS: Acetaminophen 500 MG Tablet 1000 MG PO (14:10)
--- NOTE | 2025-03-19 16:13 | CASEMGMT ---
Social Work- SW met with pt to complete BIMS assessment and review documentation for readmit. Pt reports no changes to prior admission. Pt scored 15/15 on BIMS assessment. PT scored 0/2 on PHQ9. Pt does report some anxiety due to the medical issues that she has been currently experiencing. Pt reports that yesterday and today have been the days of highest anxiety. Pt reports that she has had a headache, but was unable to verbalize in what ways the higher levels of anxiety have been impacting her. Pt asked questions regarding physiological impacts of anxiety, as well as regarding coping skills. SW and pt discussed coping skills; pt feels that she is able to redirect her thoughts and utilize coping skills and that her anxiety does not limit . Pt reports that she will let staff know if thoughts of anxiousness become pervasive or increase. Pt reports no needs or concerns at this time. JOHNATHON Elizondo
[2025-03-19 17:04] VITALS: PULSE 72; RESP 16; O2SAT 92
[2025-03-20] MEDS: Sodium Bicarbonate 650 MG Tablet PO ×3 (05:17→20:31)
[2025-03-20] MEDS: Levothyroxine 88 MCG Tablet PO (05:17)
[2025-03-20] MEDS: Fluticasone/Salmeterol 232-14 Inhaler 1 PUFF INHALATION ×2 (09:18→20:31)
[2025-03-20] MEDS: Cholecalciferol (VIT D3) 25 MCG TABLET (1,000 UNITS) PO (09:18)
[2025-03-20] MEDS: Cyanocobalamin (B12) 1,000 MCG/ML Vial 1000 MCG IM (09:18)
[2025-03-20] MEDS: Doxycycline 100 MG CAPSULE PO (09:18)
[2025-03-20] MEDS: Citalopram 40 MG TABLET PO (09:18)
[2025-03-20] MEDS: Potassium Chloride Oral Tablet 20 MEQ PO (09:18)
[2025-03-20] MEDS: Umeclidinium Bromide Inhaler 1 PUFF INHALATION (09:18)
[2025-03-20] MEDS: buPROPion (XL) 150 MG TABLET.XL PO (09:18)
[2025-03-20] MEDS: Magnesium Chloride 64 MG Delay Rel.Tablet 128 MG PO (09:18)
[2025-03-20] MEDS: Menthol/Lanolin/Calamine/Znox 113 GM Tube 1 APPLIC TOPICAL ×2 (09:32→20:32)
[2025-03-20 10:30] VITALS: BP 124/67; PULSE 75; RESP 16; TEMP 36.6; O2SAT 99
[2025-03-20] MEDS: 0.9% Saline Lock 10 ML Syringe IV ×2 (10:53→20:30)
--- NOTE | 2025-03-20 13:00 | CASEMGMT ---
Social Work Received call from patient's daughter Coco who inquired about SNF benefits for this patient. -Educated Coco to traditional [facility] SNF benefits at 100 day benefit period, with days 1-20 covered at 100% and days 21-100 with a copay of 209.50 a day. -Educated that patient's secondary insurance will be billed for copay, although SW uncertain on exact coverage of this (such as 100% of copay, 80/20, etc.), as every plan is different. -Encouraged family to call patient's secondary to inquire about SNF benefit. -Educated to need for a 60 day break in services to receive a new benefit period, as the daughter did ask about this aspect of benefits, due to patient being off of TCU to acute medical floor and readmitted to TCU to finish skilled needs. -Daughter expressed understanding that patient remains in original benefit period; was also educated that patient is currently in copay period. -Daughter had no other questions at this time. -Provided name and number for Arely Marlow, assigned SW to TCU, should daughter require additional assist or have questions. Handoff to Arely. Plan: SW to actively follow for discharge planning needs. -PORTIA Gamble
[2025-03-20 14:07] VITALS: O2SAT 94
[2025-03-21] MEDS: Sodium Bicarbonate 650 MG Tablet PO ×3 (05:21→22:08)
[2025-03-21] MEDS: Levothyroxine 88 MCG Tablet PO (05:21)
--- NOTE | 2025-03-21 07:48 | NURSING ---
Colostomy bag leaking, patient tearful, does not like hospital supplies, requests to use colostomy bags from home, states They say mine are too small for my stoma and I have been changing by colostomy bag for 20 years, I just like my supplies better, wound nurse contacted via telephone, notified that patient is requesting to speak with wound nurse and adamant on using colostomy bags from home. Patient self-applies own colostomy bag at this time, stoma moist and beefy red. Wound nurse plan to speak with patient later this date. Call light in reach.
[2025-03-21 11:02] VITALS: BP 125/64; PULSE 75; RESP 17; TEMP 37.1; O2SAT 98
[2025-03-21] MEDS: Citalopram 40 MG TABLET PO (11:20)
[2025-03-21] MEDS: Menthol/Lanolin/Calamine/Znox 113 GM Tube 1 APPLIC TOPICAL ×2 (11:20→22:08)
[2025-03-21] MEDS: Magnesium Chloride 64 MG Delay Rel.Tablet 128 MG PO (11:21)
[2025-03-21] MEDS: Potassium Chloride Oral Tablet 20 MEQ PO (11:21)
[2025-03-21] MEDS: Fluticasone/Salmeterol 232-14 Inhaler 1 PUFF INHALATION ×2 (11:21→22:08)
[2025-03-21] MEDS: Umeclidinium Bromide Inhaler 1 PUFF INHALATION (11:21)
[2025-03-21] MEDS: Cholecalciferol (VIT D3) 25 MCG TABLET (1,000 UNITS) PO (11:22)
[2025-03-21] MEDS: buPROPion (XL) 150 MG TABLET.XL PO (11:22)
--- NOTE | 2025-03-21 13:01 | NURSING ---
notified dr sidhu pt culture growing multidrug resistant enterobacter- states colony counts too low for infection- no new orders
--- NOTE | 2025-03-21 13:18 | WOUNDNOTE ---
Pt is requesting to use her own ostomy appliances. patient currently uses a 1 piece precut 7/8 deep convex [place] appliance. patient's stoma has increased in size, but there is no prolapse. 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 pt still insisted on using her appliance even though the stoma is tightly fit in the opening. pt needs an appliance with a 1 1/8 opening. will get appliances ordered for patient through [employer]. the appliance number is #[id number] (ref #[id number]). informed patient that if the stoma does not shrink back down, she may need to switch to the larger opening at home. [facility] home [facility]. this nurse wants to be sure pt does well with the new appliance before changing the order for her home supplies.
[2025-03-21] MEDS: 0.9% Saline Lock 10 ML Syringe IV (22:14)
[2025-03-22] MEDS: Levothyroxine 88 MCG Tablet PO (06:29)
[2025-03-22] MEDS: Sodium Bicarbonate 650 MG Tablet PO ×3 (06:29→21:49)
[2025-03-22 06:31] VITALS: RESP 17
[2025-03-22 08:15] VITALS: BP 109/59; PULSE 76; RESP 18; TEMP 36.9; O2SAT 96
[2025-03-22] MEDS: Menthol/Lanolin/Calamine/Znox 113 GM Tube 1 APPLIC TOPICAL ×2 (08:17→21:49)
[2025-03-22] MEDS: Umeclidinium Bromide Inhaler 1 PUFF INHALATION (08:18)
[2025-03-22] MEDS: Fluticasone/Salmeterol 232-14 Inhaler 1 PUFF INHALATION ×2 (08:18→21:49)
[2025-03-22] MEDS: Citalopram 40 MG TABLET PO (08:18)
[2025-03-22] MEDS: buPROPion (XL) 150 MG TABLET.XL PO (08:19)
[2025-03-22] MEDS: Cholecalciferol (VIT D3) 25 MCG TABLET (1,000 UNITS) PO (08:19)
[2025-03-22] MEDS: Magnesium Chloride 64 MG Delay Rel.Tablet 128 MG PO (08:19)
[2025-03-22] MEDS: Potassium Chloride Oral Tablet 20 MEQ PO (08:19)
[2025-03-23] MEDS: Levothyroxine 88 MCG Tablet PO (05:27)
[2025-03-23] MEDS: Sodium Bicarbonate 650 MG Tablet PO ×3 (05:27→21:29)
[2025-03-23 05:31] VITALS: PULSE 71; RESP 16; O2SAT 97
[2025-03-23 09:25] VITALS: BP 123/70; PULSE 84; RESP 16; TEMP 37.2; O2SAT 94
[2025-03-23] MEDS: Citalopram 40 MG TABLET PO (09:29)
[2025-03-23] MEDS: Fluticasone/Salmeterol 232-14 Inhaler 1 PUFF INHALATION ×2 (09:29→21:29)
[2025-03-23] MEDS: Magnesium Chloride 64 MG Delay Rel.Tablet 128 MG PO (09:29)
[2025-03-23] MEDS: Potassium Chloride Oral Tablet 20 MEQ PO (09:29)
[2025-03-23] MEDS: Umeclidinium Bromide Inhaler 1 PUFF INHALATION (09:29)
[2025-03-23] MEDS: Cholecalciferol (VIT D3) 25 MCG TABLET (1,000 UNITS) PO (09:30)
[2025-03-23] MEDS: buPROPion (XL) 150 MG TABLET.XL PO (09:30)
[2025-03-23] MEDS: 0.9% Saline Lock 10 ML Syringe IV (18:46)
[2025-03-23] MEDS: Menthol/Lanolin/Calamine/Znox 113 GM Tube 1 APPLIC TOPICAL (21:21)
[2025-03-24] MEDS: Sodium Bicarbonate 650 MG Tablet PO ×3 (06:37→21:17)
[2025-03-24] MEDS: Levothyroxine 88 MCG Tablet PO (06:38)
[2025-03-24 08:31] VITALS: BP 108/59; PULSE 80; RESP 16; TEMP 36.6; O2SAT 100
[2025-03-24] MEDS: Menthol/Lanolin/Calamine/Znox 113 GM Tube 1 APPLIC TOPICAL ×2 (08:36→21:19)
[2025-03-24] MEDS: Fluticasone/Salmeterol 232-14 Inhaler 1 PUFF INHALATION ×2 (08:37→21:17)
[2025-03-24] MEDS: buPROPion (XL) 150 MG TABLET.XL PO (08:37)
[2025-03-24] MEDS: Magnesium Chloride 64 MG Delay Rel.Tablet 128 MG PO (08:37)
[2025-03-24] MEDS: Umeclidinium Bromide Inhaler 1 PUFF INHALATION (08:37)
[2025-03-24] MEDS: Citalopram 40 MG TABLET PO (08:37)
[2025-03-24] MEDS: Potassium Chloride Oral Tablet 20 MEQ PO (08:38)
[2025-03-24] MEDS: Cholecalciferol (VIT D3) 25 MCG TABLET (1,000 UNITS) PO (08:39)
[2025-03-24] MEDS: 0.9% Saline Lock 10 ML Syringe IV (08:45)
--- NOTE | 2025-03-24 14:11 | CASEMGMT ---
Social Work SW received VM from Coco lucas, stating she contacted pt's secondary insurance and they confirmed copay coverage for SNF stay 21-100. Arely Marlow CENTRAL OFFICE EQUIPMENT ENGINEER PATIENT ACCESS
--- NOTE | 2025-03-24 14:50 | WOUNDNOTE ---
Pt aware that the larger [place]a ostomy appliances have been ordered for her. should be in later in the week according to [employer]. Pt appreciative. If appliances fit stoma better, will call [employer] to change patients order.
--- NOTE | 2025-03-24 20:02 | PCA ---
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 other NONPROFIT FUNDRAISER Asked patient as well and patient refused for her too.
[2025-03-25] MEDS: 0.9% Saline Lock 10 ML Syringe IV ×2 (05:29→13:00)
[2025-03-25] MEDS: Levothyroxine 88 MCG Tablet PO (05:29)
[2025-03-25] MEDS: Sodium Bicarbonate 650 MG Tablet PO ×3 (05:29→21:22)
[2025-03-25 09:11] VITALS: BP 122/64; PULSE 77; RESP 16; TEMP 36.6; O2SAT 97
[2025-03-25] MEDS: Fluticasone/Salmeterol 232-14 Inhaler 1 PUFF INHALATION ×2 (09:13→21:22)
[2025-03-25] MEDS: Cholecalciferol (VIT D3) 25 MCG TABLET (1,000 UNITS) PO (09:13)
[2025-03-25] MEDS: Citalopram 40 MG TABLET PO (09:13)
[2025-03-25] MEDS: Potassium Chloride Oral Tablet 20 MEQ PO (09:13)
[2025-03-25] MEDS: Umeclidinium Bromide Inhaler 1 PUFF INHALATION (09:13)
[2025-03-25] MEDS: buPROPion (XL) 150 MG TABLET.XL PO (09:14)
[2025-03-25] MEDS: Magnesium Chloride 64 MG Delay Rel.Tablet 128 MG PO (09:14)
[2025-03-25] MEDS: Menthol/Lanolin/Calamine/Znox 113 GM Tube 1 APPLIC TOPICAL ×2 (09:16→21:23)
[2025-03-25 10:07] VITALS: BMI 21.7
--- NOTE | 2025-03-25 13:20 | CASEMGMT ---
Social Work SW completed BIMS () and PHQ-2 () for MDS assessment. Pt continued to note she feels anxious, not depressed. This is consistent with past PHQ-2s from prior admission. Pt states she takes anti-anxiety med for heightened anxiousness. SW inquired about starting daily anti-anxiety for maintenance therapy to decrease the need for PRN dose. Pt agreeable and appreciative of the suggestion. SW left written communication for Dr. Pt aware Dr makes final decision. Arely Marlow METHODS SPECIALIST HOT WALKER
[2025-03-25] MEDS: busPIRone 5 MG Tablet PO (18:07)
[2025-03-26 04:40] VITALS: PULSE 78; RESP 16
[2025-03-26] MEDS: Levothyroxine 88 MCG Tablet PO (05:32)
[2025-03-26] MEDS: Sodium Bicarbonate 650 MG Tablet PO ×3 (05:32→22:15)
[2025-03-26] MEDS: busPIRone 5 MG Tablet PO ×3 (05:32→22:14)
[2025-03-26 06:00] LABS: Absolute Lymphocyte Count 2.32 X10^3/uL (0.83-4.51); Absolute Neutrophil Count 5.6 X10^3/uL (2.0-7.7); Basophil# 0.01 X10^3/uL; Basophil% 0.1 % (0-1); Eosinophil# 0.19 X10^3/uL; Eosinophils% 2.1 % (0-5); Lymphocyte # 2.32 X10^3/ul (0.83-4.51); Lymphocyte % 25.9 % (19-41); Mean Corpuscular Hgb 28.8 pg (27.0-32.0); Mean Corpuscular Volume 92.7 fL (81-99); Mean Platelet Vol. 8.8 fl (6.2-12.0); Monocyte# 0.76 X10^3/uL; Monocyte% 8.5 % (0-10); NRBC Flagged by Analyzer 0 % (0-5); Neutrophil # 5.64 X10^3/uL (2.7-7.7); Neutrophil % 62.8 % (47-70); Platelet Count 266 K/mm3 (150-450); RBC Distribution Width CV 16.6 % (11.6-14.6); RBC Distribution Width SD 56.3 fl (35.1-43.9); Red Blood Count 3.13 M/mm3 (4.2-5.4)
[2025-03-26 06:25] LABS: Anion Gap 11 (5-15); BUN 14 mg/dL (4-19); Calcium,Total 8.6 mg/dL (7.6-11.0); Carbon Dioxide 16.5 mmol/L (21.0-32.0); Chloride 112 mmol/L (98-108); Creatinine, Serum 1.35 mg/dL (0.70-1.20); EST Glomerular Filtration Rate 40 (>60); Glucose 83 mg/dL (70-99); Potassium 4.2 mmol/L (3.3-5.1); Sodium Level 140 mmol/L (133-145)
[2025-03-26 08:13] VITALS: BP 126/66; PULSE 78; RESP 17; TEMP 36.4; O2SAT 97
[2025-03-26] MEDS: Menthol/Lanolin/Calamine/Znox 113 GM Tube 1 APPLIC TOPICAL ×2 (08:17→22:15)
[2025-03-26] MEDS: Umeclidinium Bromide Inhaler 1 PUFF INHALATION (08:18)
[2025-03-26] MEDS: Fluticasone/Salmeterol 232-14 Inhaler 1 PUFF INHALATION ×2 (08:18→22:14)
[2025-03-26] MEDS: Citalopram 40 MG TABLET PO (08:18)
[2025-03-26] MEDS: Potassium Chloride Oral Tablet 20 MEQ PO (08:19)
[2025-03-26] MEDS: Magnesium Chloride 64 MG Delay Rel.Tablet 128 MG PO (08:19)
[2025-03-26] MEDS: Cholecalciferol (VIT D3) 25 MCG TABLET (1,000 UNITS) PO (08:20)
[2025-03-26] MEDS: Acetaminophen 500 MG Tablet 1000 MG PO ×2 (08:20→15:00)
[2025-03-26] MEDS: buPROPion (XL) 150 MG TABLET.XL PO (08:20)
--- NOTE | 2025-03-26 08:37 | NURSING ---
Applied Psychology Chair Note; MDS for 03/25/2025 Complete
--- NOTE | 2025-03-26 09:02 | CASEMGMT ---
Social Work IDT met with patient and dtr for care plan meeting. Discussed patient's progress in PT/OT/SN. Educated to Medicare benefit. Pt readmitted on day of Medicare. Dtr reported she called pt's secondary insurance and verified copay coverage. Provided pt/family with written communication of insurance process and copay coverage during stay. Pt is progressing well and offered to set DC date when ready. Pt and dtr voiced wanting to ensure pt has the endurance to care for herself at home daily. OT discussed and concluded pt can be adlib in room/facility. After several days of practice, SW to follow up on readiness to DC. Goal is DC next week. Pt/dtr agreeable. Dtr inquired about HHC. SW agreed to coordinate. Pt used [facility] and requesting to use again at DC. Pt denied DME needs. SW to coordinate once DC date is set. SW will continue to follow for DC planning. Arely Marlow CLIENT INSIGHTS CONSULTANT AUTO SPECIALTY SERVICES MANAGER
--- NOTE | 2025-03-26 13:02 | MDS.RN ---
Information for the MDS was obtained from review of the clinical record, interview of resident, staff, and direct observation of resident?s care.
--- NOTE | 2025-03-26 15:00 | NURSING ---
pt changed ostomy at this time
[2025-03-26] MEDS: Tuberculin,Purif.prot.deriv. 50 TU/ML Vial 0.1 ML ID (15:01)
[2025-03-27] MEDS: Sodium Bicarbonate 650 MG Tablet PO ×3 (06:06→20:07)
[2025-03-27] MEDS: Levothyroxine 88 MCG Tablet PO (06:06)
[2025-03-27] MEDS: busPIRone 5 MG Tablet PO ×3 (06:06→20:07)
[2025-03-27 08:11] VITALS: BP 127/64; PULSE 82; RESP 16; TEMP 36.7; O2SAT 97
[2025-03-27] MEDS: Menthol/Lanolin/Calamine/Znox 113 GM Tube 1 APPLIC TOPICAL ×2 (08:18→20:09)
[2025-03-27] MEDS: Fluticasone/Salmeterol 232-14 Inhaler 1 PUFF INHALATION ×2 (08:18→20:06)
[2025-03-27] MEDS: Umeclidinium Bromide Inhaler 1 PUFF INHALATION (08:18)
[2025-03-27] MEDS: Citalopram 40 MG TABLET PO (08:18)
[2025-03-27] MEDS: Magnesium Chloride 64 MG Delay Rel.Tablet 128 MG PO (08:19)
[2025-03-27] MEDS: Cholecalciferol (VIT D3) 25 MCG TABLET (1,000 UNITS) PO (08:19)
[2025-03-27] MEDS: buPROPion (XL) 150 MG TABLET.XL PO (08:19)
[2025-03-27] MEDS: Potassium Chloride Oral Tablet 20 MEQ PO (08:19)
--- NOTE | 2025-03-27 10:22 | NURSING ---
pt off unit with family for GI appt with Dr Murillo office
[2025-03-27 20:11] VITALS: PULSE 73; RESP 16; O2SAT 96
[2025-03-28] MEDS: Levothyroxine 88 MCG Tablet PO (06:00)
[2025-03-28] MEDS: busPIRone 5 MG Tablet PO ×3 (06:00→20:44)
[2025-03-28] MEDS: Sodium Bicarbonate 650 MG Tablet PO ×3 (06:00→20:44)
[2025-03-28 07:58] VITALS: BP 127/68; PULSE 71; RESP 17; TEMP 36.6; O2SAT 98
[2025-03-28] MEDS: Magnesium Chloride 64 MG Delay Rel.Tablet 128 MG PO (08:06)
[2025-03-28] MEDS: Potassium Chloride Oral Tablet 20 MEQ PO (08:06)
[2025-03-28] MEDS: Cholecalciferol (VIT D3) 25 MCG TABLET (1,000 UNITS) PO (08:06)
[2025-03-28] MEDS: buPROPion (XL) 150 MG TABLET.XL PO (08:07)
[2025-03-28] MEDS: Citalopram 40 MG TABLET PO (08:07)
[2025-03-28] MEDS: Menthol/Lanolin/Calamine/Znox 113 GM Tube 1 APPLIC TOPICAL ×2 (08:08→20:47)
[2025-03-28] MEDS: Fluticasone/Salmeterol 232-14 Inhaler 1 PUFF INHALATION ×2 (08:09→20:43)
[2025-03-28] MEDS: Umeclidinium Bromide Inhaler 1 PUFF INHALATION (08:09)
[2025-03-28 18:43] VITALS: PULSE 82; RESP 16; O2SAT 99
[2025-03-29] MEDS: busPIRone 5 MG Tablet PO ×3 (04:45→20:50)
[2025-03-29] MEDS: Sodium Bicarbonate 650 MG Tablet PO ×3 (04:45→20:51)
[2025-03-29] MEDS: Levothyroxine 88 MCG Tablet PO (04:46)
[2025-03-29 04:50] VITALS: RESP 18
[2025-03-29] MEDS: Magnesium Chloride 64 MG Delay Rel.Tablet 128 MG PO (08:42)
[2025-03-29] MEDS: buPROPion (XL) 150 MG TABLET.XL PO (08:42)
[2025-03-29] MEDS: Citalopram 40 MG TABLET PO (08:42)
[2025-03-29] MEDS: Fluticasone/Salmeterol 232-14 Inhaler 1 PUFF INHALATION ×2 (08:43→20:51)
[2025-03-29] MEDS: Cholecalciferol (VIT D3) 25 MCG TABLET (1,000 UNITS) PO (08:43)
[2025-03-29] MEDS: Umeclidinium Bromide Inhaler 1 PUFF INHALATION (08:43)
[2025-03-29] MEDS: Potassium Chloride Oral Tablet 20 MEQ PO (08:43)
[2025-03-29] MEDS: Menthol/Lanolin/Calamine/Znox 113 GM Tube 1 APPLIC TOPICAL ×2 (08:47→20:52)
[2025-03-29 08:49] VITALS: BP 124/67; PULSE 81; RESP 16; TEMP 36.5; O2SAT 95
[2025-03-30] MEDS: busPIRone 5 MG Tablet PO ×3 (06:32→19:48)
[2025-03-30] MEDS: Sodium Bicarbonate 650 MG Tablet PO ×3 (06:32→19:48)
[2025-03-30] MEDS: Levothyroxine 88 MCG Tablet PO (06:32)
[2025-03-30] MEDS: Umeclidinium Bromide Inhaler 1 PUFF INHALATION (09:35)
[2025-03-30] MEDS: Potassium Chloride Oral Tablet 20 MEQ PO (09:35)
[2025-03-30] MEDS: buPROPion (XL) 150 MG TABLET.XL PO (09:35)
[2025-03-30] MEDS: Fluticasone/Salmeterol 232-14 Inhaler 1 PUFF INHALATION ×2 (09:35→19:48)
[2025-03-30] MEDS: Cholecalciferol (VIT D3) 25 MCG TABLET (1,000 UNITS) PO (09:35)
[2025-03-30] MEDS: Magnesium Chloride 64 MG Delay Rel.Tablet 128 MG PO (09:35)
[2025-03-30] MEDS: Citalopram 40 MG TABLET PO (09:38)
[2025-03-30] MEDS: Menthol/Lanolin/Calamine/Znox 113 GM Tube 1 APPLIC TOPICAL ×2 (09:39→19:50)
[2025-03-30 16:00] VITALS: BP 128/66; PULSE 71; RESP 16; TEMP 36.7; O2SAT 97
[2025-03-31] MEDS: busPIRone 5 MG Tablet PO ×3 (05:30→21:01)
[2025-03-31] MEDS: Levothyroxine 88 MCG Tablet PO (05:30)
[2025-03-31] MEDS: Sodium Bicarbonate 650 MG Tablet PO ×3 (05:31→21:01)
[2025-03-31] MEDS: Citalopram 40 MG TABLET PO (09:46)
[2025-03-31] MEDS: Umeclidinium Bromide Inhaler 1 PUFF INHALATION (09:46)
[2025-03-31] MEDS: Fluticasone/Salmeterol 232-14 Inhaler 1 PUFF INHALATION ×2 (09:46→21:02)
[2025-03-31] MEDS: Cholecalciferol (VIT D3) 25 MCG TABLET (1,000 UNITS) PO (09:47)
[2025-03-31] MEDS: Potassium Chloride Oral Tablet 20 MEQ PO (09:47)
[2025-03-31] MEDS: Magnesium Chloride 64 MG Delay Rel.Tablet 128 MG PO (09:47)
[2025-03-31] MEDS: buPROPion (XL) 150 MG TABLET.XL PO (09:47)
[2025-03-31 09:49] VITALS: BP 114/66; PULSE 77; RESP 16; TEMP 36.6; O2SAT 94
[2025-03-31] MEDS: Menthol/Lanolin/Calamine/Znox 113 GM Tube 1 APPLIC TOPICAL ×2 (09:51→21:01)
[2025-04-01] MEDS: busPIRone 5 MG Tablet PO ×3 (05:57→21:30)
[2025-04-01] MEDS: Levothyroxine 88 MCG Tablet PO (05:57)
[2025-04-01] MEDS: Sodium Bicarbonate 650 MG Tablet PO ×3 (05:57→21:30)
[2025-04-01 07:56] VITALS: BP 124/80; PULSE 81; RESP 17; TEMP 36.5; O2SAT 97
[2025-04-01] MEDS: Umeclidinium Bromide Inhaler 1 PUFF INHALATION (08:00)
[2025-04-01] MEDS: Fluticasone/Salmeterol 232-14 Inhaler 1 PUFF INHALATION ×2 (08:01→21:30)
[2025-04-01] MEDS: Menthol/Lanolin/Calamine/Znox 113 GM Tube 1 APPLIC TOPICAL ×2 (08:03→21:31)
[2025-04-01] MEDS: Citalopram 40 MG TABLET PO (08:04)
[2025-04-01] MEDS: Potassium Chloride Oral Tablet 20 MEQ PO (08:05)
[2025-04-01] MEDS: buPROPion (XL) 150 MG TABLET.XL PO (08:05)
[2025-04-01] MEDS: Cholecalciferol (VIT D3) 25 MCG TABLET (1,000 UNITS) PO (08:05)
[2025-04-01] MEDS: Magnesium Chloride 64 MG Delay Rel.Tablet 128 MG PO (08:05)
--- NOTE | 2025-04-01 09:00 | CASEMGMT ---
Social Work SW spoke with pt to discuss pt's progress and DC planning. Pt stated she still wants to feel stronger and would like a few more days. SW offered to set DC date for 04/05, but cannot extend further as pt has been adlib and Medicare coverage beyond would be questionable. pt expressed understanding and agreed to 04/05. Dtrs will be off work to assist with transition. SW offered HHC at DC as well. pt agreed and [facility] to [facility]. SW to place referral. Confirmed pt has no DME needs. - SW phoned referral to [facility] for PT/OT/SN plan: DC home 04/05, [facility] PT/OT/SN Arely Marlow MSW COMPOSITE BOND TECHNICIAN
[2025-04-01 10:24] VITALS: BMI 21.2
--- NOTE | 2025-04-01 13:45 | NURSING ---
wound nurse changed colostomy appliance today 04/01
--- NOTE | 2025-04-01 14:02 | WOUNDNOTE ---
Ostomy appliance changed with the new pre cut appliance. pt's stoma size is now approx 1 1/8 and patient was using a 7/8 pre cut appliance. peristomal skin is intact. cleansed with warm water. pat dry. applied a new 1 piece convex [place] appliance pre-cut at 1 1/8. will call [employer] and have appliances changed to this size. pt prefers the velcro closure rather than the clip. pt very appreciative of care.
--- NOTE | 2025-04-01 19:50 | PCM.DC.SUM ---
Providers Date of Admission: 03/18/25 Primary Care Physician: Dr. Elliot Kang MD Reason For Visit: GROSS HEMATURIA Diagnosis Discharge Diagnosis (1) Debility: Status: Resolved Code(s): R53.81 - Other malaise (2) Hematuria: Status: Acute Code(s): R31.9 - Hematuria, unspecified (3) Left ureteral stone: Status: Acute Code(s): N20.1 - Calculus of ureter (4) Left leg DVT: Status: Acute Code(s): I82.402 - Acute embolism and thrombosis of unspecified deep veins of left lower extremity Qualifiers: Affected thrombotic vein of extremity: unspecified vein of extremity Chronicity: unspecified Qualified Code(s): I82.402 - Acute embolism and thrombosis of unspecified deep veins of left lower extremity (5) Pneumonia: Status: Acute Code(s): J18.9 - Pneumonia, unspecified organism (6) ABLA (acute blood loss anemia): Status: Resolved Code(s): D62 - Acute posthemorrhagic anemia (7) COPD (chronic obstructive pulmonary disease): Status: Chronic Code(s): J44.9 - Chronic obstructive pulmonary disease, unspecified (8) Depression: Status: Acute Code(s): F32.A - Depression, unspecified (9) Vitamin D deficiency: Status: Acute Code(s): E55.9 - Vitamin D deficiency, unspecified (10) Vitamin B12 deficiency: Status: Acute Code(s): E53.8 - Deficiency of other specified B group vitamins (11) Pruritus: Status: Acute Code(s): L29.9 - Pruritus, unspecified (12) Hypothyroidism: Status: Acute Code(s): E03.9 - Hypothyroidism, unspecified (13) Hypokalemia: Status: Acute Code(s): E87.6 - Hypokalemia (14) Metabolic acidosis: Status: Acute Code(s): E87.20 - Acidosis, unspecified Plan 79 year old female with below past medical history hospitalized for hemorrhagic shock 2/2 hematuria/left ureteral stone requiring urologic surgery x [address] Morrison, complicated by acute blood loss anemia requiring transfusion, pneumonia, left lower extremity dvt requiring IVC filter placement, Left acetabular fracuture treated non-surgically, admitted to TCU with debility, here for rehabilitation, strengthening, priot to discharge home alone. Debility - PT/OT. Pain - Tylenol 1000mg q6 prn pain (1-3), Oxycodone 5mg q4 prn pain (4-10). Bowel - senna/colace 2 tablets bid. Adult immunization - Administer pneumonia vaccine, covid vaccine, flu vaccine as appropriate. DVT prophylaxis - Contraindicated 2/2 hematuria. Vitamin D deficiency - D3 25mg daily. Vitamin B12 deficiency - B12 1000mcg im q30d. Pneumonia - Doxycycline 100mg bid thru 03/20/2025. COPD - Fluticasone/Salmeterol 232-14 1 puff q12, Duoneb 3mL q4 prn. Pruritus - Hydroxyzine 10mg tid prn. Hypothyroidism - Levothyroxine 88mcg daily. Hypomagnesemia - Magnesium chloride 128mg daily. Skin irritation - Calmoseptine topical bid. Hypokalemia - KCL 20meq daily. Metabolic acidosis - Sodium bicarb 650mg tid. The following psychotropic medication was present on admission: Bupropion XL 150mg daily. Psychotropic medication therapy is indicated for a diagnosis of: Major depression. Based on my clinical evaluation, continuation of the medication is necessary at this time. Gradual dose reduction plan (select one): ____ GDR will be attempted. Will monitor patient symptoms and behaviors in response to GDR. __x__ GRD contraindicated. Reason contraindicated: stable chronic emt intermediate use. The following psychotropic medication was present on admission: Citalopram 40mg daily. Psychotropic medication therapy is indicated for a diagnosis of: Major depression. Based on my clinical evaluation, continuation of the medication is necessary at this time. Gradual dose reduction plan (select one): ____ GDR will be attempted. Will monitor patient symptoms and behaviors in response to GDR. _x___ GRD contraindicated. Reason contraindicated: stable chronic emt intermediate use. Medications at Discharge Home Medications bupropion HCl 150 mg 24 hr tablet, extended release (Wellbutrin XL) 150 mg PO QAM quit smoking 11/28/18 citalopram 40 mg tablet 40 mg PO DAILY Anxiety 04/24/19 cholecalciferol (vitamin D3) 25 mcg (1,000 unit) capsule (Vitamin D3) 25 mcg PO DAILY Supplement 10/09/21 levothyroxine 88 mcg tablet 88 mcg PO DAILY thyroid 12/14/23 potassium chloride 20 mEq tablet,extended release 20 meq PO DAILY supplement 12/21/24 sodium bicarbonate 650 mg tablet 650 mg PO TID supplement 01/06/25 ustekinumab 90 mg/mL subcutaneous syringe (Stelara) 90 mg subcut Q56D unknown 01/31/25 hydroxyzine HCl 10 mg tablet 10 mg PO TID PRN PRN Anxiety/Agitation 7 days #21 tabs 02/07/25 magnesium oxide 400 mg (241.3 mg magnesium) tablet 400 mg PO DAILY supplement 02/20/25 fluticasone fur. 200 mcg-umeclid 62.5 mcg-vilant 25 mcg inhalat.powder (Trelegy Ellipta) 1 inh inhalation DAILY lungs #60 ea 02/24/25 buspirone 5 mg tablet 5 mg PO TID 30 days #90 tabs 04/01/25 cyanocobalamin (vitamin B-12) 1,000 mcg/mL injection solution 1,000 mcg IM Q30D #0 mL 04/01/25 Hospital Course Operations None Procedures None Summary of Care Provided Minutes Spent on Discharge: 35 Hospital Course: 79 year old female with below past medical history hospitalized for hemorrhagic shock 2/2 hematuria/left ureteral stone requiring urologic surgery x [address] Morrison, complicated by acute blood loss anemia requiring transfusion, pneumonia, left lower extremity dvt requiring IVC filter placement, Left acetabular fracture treated non-surgically, admitted to TCU with debility, here for rehabilitation, strengthening, priot to discharge home alone. Discharge home 04/05/2025, [facility] PT/OT/SN. Physical Exam Const alert General Appearance: cooperative HEENT normocephalic Eyes PERRL and EOMs intact bilaterally Neck supple, no JVD and no carotid bruits Resp normal respiratory effort, normal air movement and clear to auscultation bilaterally Cardio regular rate and regular rhythm GI normal to inspection, nondistended, normoactive bowel sounds, non-tender and non-distended GI Narrative: Colostomy present. Extremity normal capillary refill General Extremity: Negative for edema Skin no rashes or lesions noted General Skin Exam: no breakdown Psych affect normal Appearance: appropriate Weight / BMI Weight Weight: 51.12 kg Body Mass Index (BMI) 21.2 ABG / Lab / Microbiology Data 03/26/25 05:21 03/26/25 05:21 D/C Instructions Discharge Diet: No restrictions Discharge Activity: Return to Normal Activity, May Shower and Use Walker Weight Bearing Status: Weight bearing as tolerated Call your doctor if you observe: Fever of 101 or Higher, Inability to urinate, Inability to have a bowel movement, Shortness of breath, Dizziness, Fainting spells, Swelling in the ankles, Chest pain and Uncontrolled pain DC O2, CPAP, BIPAP Needs Home O2 Discharge instructions: No Additional Instructions: Discharge home 04/05/2025, [facility] PT/OT/SN. Please Follow Up With: Friend,Michel, DO When: As scheduled. Meaningful Use Info Meaningful Use Meaningful Use Diagnoses (Choose all that apply): None applicable Ischemic Stroke Statin Dosing Therapy Reference: STATIN DOSE THERAPY REFERENCE: * Patients > 75 years receive moderate or high dose statin therapy. * Patients 75 years or YOUNGER should receive HIGH intensity statin dose unless contraindicated. You will be required to document reason for non-treatment if statin daily dose does not meet guidelines. HIGH DOSE STATIN THERAPY DAILY Atorvastatin > than or = to 40 mg Rosuvastatin > than or = to 20 mg Amlodipine + Atorvastatin > than or = to 2.5/40 mg Ezetimibe + Simvastatin 10/80 mg Simvastatin 80mg Discharge Plan Admission Admit Date/Time: 03/18/25 15:13 Primary Reason for Your Visit: Debility. Attending Provider: Elliot Kang Chi Primary Care Provider: Elliot Kang Chi Instructions Additional Instructions / Restrictions: Discharge home 04/05/2025, [facility] PT/OT/SN. Discharge Orders/Prescriptions Prescriptions: New buspirone 5 mg Tablet 5 mg PO TID 30 Days Qty: 90 0RF cyanocobalamin (vitamin B-12) 1,000 mcg/mL Solution 1,000 mcg IM Q30D Qty: 0 0RF Continued bupropion HCl [Wellbutrin XL] 150 mg tablet extended release 24 hr 150 mg PO QAM Trelegy Ellipta 200-62.5-25 mcg blister with device 1 inh inhalation DAILY Qty: 60 6RF citalopram 40 MG tablet 40 mg PO DAILY cholecalciferol (vitamin D3) [Vitamin D3] 25 mcg (1,000 unit) Capsule 25 mcg PO DAILY levothyroxine 88 mcg tablet 88 mcg PO DAILY potassium chloride 20 mEq tablet extended release 20 meq PO DAILY sodium bicarbonate 650 mg tablet 650 mg PO TID Stelara 90 mg/mL syringe 90 mg subcut Q56D hydroxyzine HCl 10 mg Tablet 10 mg PO TID PRN PRN (Reason: Anxiety/Agitation) 7 Days Qty: 21 0RF magnesium oxide 400 mg (241.3 mg magnesium) tablet 400 mg PO DAILY Discontinued albuterol sulfate [Ventolin HFA] 90 mcg/actuation HFA aerosol inhaler 2 puff inhalation Q4H PRN (Reason: shortness of breath or wheezing) Qty: 18 6RF ipratropium-albuterol 0.5 mg-3 mg(2.5 mg base)/3 mL solution for nebulization 3 ml inhalation Q4-6H PRN (Reason: shortness of breath) ipratropium-albuterol 0.5 mg-3 mg(2.5 mg base)/3 mL solution for nebulization 3 ml inhalation Q4H PRN PRN (Reason: SOB &/OR WHEEZING) Qty: 180 6RF cyanocobalamin (vitamin B-12) 1,000 MCG/ML solution 100 mcg IM Q30D sodium chloride 0.9 % (flush) [BD PosiFlush Normal Saline 0.9] Syringe 10 - 40 ml IV UD PRN (Reason: Saline Flush) Qty: 10 0RF oxycodone 5 mg capsule 5 mg PO Q6H PRN (Reason: pain) 3 Days Qty: 12 0RF doxycycline monohydrate 100 mg capsule 100 mg PO BID Qty: 4 0RF Referrals / Follow Up: lEliot Kang Chi, MD [Primary Care Provider] - Disposition Disposition (needs filled in before D/C Order can be placed): Home Health Service
[2025-04-01 19:56] VITALS: PULSE 80; RESP 16; O2SAT 98
[2025-04-02 05:39] LABS: Absolute Lymphocyte Count 2.48 X10^3/uL (0.83-4.51); Basophil# 0.01 X10^3/uL; Basophil% 0.1 % (0-1); Eosinophil# 0.21 X10^3/uL; Eosinophils% 2.5 % (0-5); Hematocrit 30.4 % (37-47); Hemoglobin 9.6 g/dL (12.0-15.0); Lymphocyte # 2.48 X10^3/ul (0.83-4.51); Lymphocyte % 29.4 % (19-41); Mean Corp Hgb Conc 31.6 g/dL (32-36); Mean Corpuscular Hgb 29.4 pg (27.0-32.0); Mean Platelet Vol. 8.7 fl (6.2-12.0); Monocyte# 0.73 X10^3/uL; Monocyte% 8.7 % (0-10); NRBC Flagged by Analyzer 0 % (0-5); Neutrophil # 4.97 X10^3/uL (2.7-7.7); Neutrophil % 58.9 % (47-70); Platelet Count 213 K/mm3 (150-450); RBC Distribution Width CV 16.6 % (11.6-14.6); RBC Distribution Width SD 56.2 fl (35.1-43.9); Red Blood Count 3.27 M/mm3 (4.2-5.4); White Blood Count 8.4 K/mm3 (4.4-11.0)
[2025-04-02] MEDS: busPIRone 5 MG Tablet PO ×3 (06:17→21:22)
[2025-04-02] MEDS: Levothyroxine 88 MCG Tablet PO (06:17)
[2025-04-02] MEDS: Sodium Bicarbonate 650 MG Tablet PO ×3 (06:18→21:22)
[2025-04-02 06:30] LABS: Anion Gap 11 (5-15); BUN 17 mg/dL (4-19); BUN/Creat Ratio 12.6 RATIO (10-20); Calcium,Total 8.6 mg/dL (7.6-11.0); Carbon Dioxide 16.7 mmol/L (21.0-32.0); Chloride 110 mmol/L (98-108); Creatinine, Serum 1.32 mg/dL (0.70-1.20); EST Glomerular Filtration Rate 41 (>60); Estimated Creatinine Clearance 26.08 ml/min (50-250); Glucose 85 mg/dL (70-99); Potassium 4.2 mmol/L (3.3-5.1); Sodium Level 138 mmol/L (133-145)
[2025-04-02 08:06] VITALS: BP 112/69; PULSE 79; RESP 17; TEMP 36.6; O2SAT 100
[2025-04-02] MEDS: Petrolatum 33% Tube 1 APPLIC TOPICAL (08:08)
[2025-04-02] MEDS: Potassium Chloride Oral Tablet 20 MEQ PO (08:09)
[2025-04-02] MEDS: Citalopram 40 MG TABLET PO (08:09)
[2025-04-02] MEDS: Magnesium Chloride 64 MG Delay Rel.Tablet 128 MG PO (08:09)
[2025-04-02] MEDS: Umeclidinium Bromide Inhaler 1 PUFF INHALATION (08:10)
[2025-04-02] MEDS: Fluticasone/Salmeterol 232-14 Inhaler 1 PUFF INHALATION ×2 (08:10→21:22)
[2025-04-02] MEDS: Cholecalciferol (VIT D3) 25 MCG TABLET (1,000 UNITS) PO (08:10)
[2025-04-02] MEDS: buPROPion (XL) 150 MG TABLET.XL PO (08:10)
[2025-04-02] MEDS: Menthol/Lanolin/Calamine/Znox 113 GM Tube 1 APPLIC TOPICAL ×2 (08:12→21:21)
--- NOTE | 2025-04-02 15:24 | WOUNDNOTE ---
Called and talked with Yumiko at [facility]. New appliances ordered for patient at home. Pt prefers the same appliance but will need the larger opening of 11/13. new appliance number is #[id number]. Pt will get all from [facility] on Monday. Order cannot be placed since patient is still in the hospital. Pt will be sent with supplies until the new order can be placed. pt appreciative.
[2025-04-02 17:21] VITALS: PULSE 75; RESP 16; O2SAT 96
--- NOTE | 2025-04-02 18:35 | NURSING ---
pt called out, colostomy leaking at distal end of flange. skin care provided, new one piece colostomy appliance applied. skin irritation noted lower abdomen, stool acidic yellow looking. pt states she has been drinking juice.
[2025-04-03] MEDS: Sodium Bicarbonate 650 MG Tablet PO ×3 (05:54→20:20)
[2025-04-03] MEDS: Levothyroxine 88 MCG Tablet PO (05:54)
[2025-04-03] MEDS: busPIRone 5 MG Tablet PO ×3 (05:54→20:19)
[2025-04-03 08:38] VITALS: BP 95/71; PULSE 81; RESP 15; TEMP 36.5; O2SAT 97
[2025-04-03 08:39] VITALS: BP 120/84; PULSE 81
[2025-04-03] MEDS: Citalopram 40 MG TABLET PO (08:39)
[2025-04-03] MEDS: Menthol/Lanolin/Calamine/Znox 113 GM Tube 1 APPLIC TOPICAL ×2 (08:39→20:23)
[2025-04-03] MEDS: Petrolatum 33% Tube 1 APPLIC TOPICAL ×2 (08:40→20:24)
[2025-04-03] MEDS: Umeclidinium Bromide Inhaler 1 PUFF INHALATION (08:41)
[2025-04-03] MEDS: Fluticasone/Salmeterol 232-14 Inhaler 1 PUFF INHALATION ×2 (08:41→20:20)
[2025-04-03] MEDS: Potassium Chloride Oral Tablet 20 MEQ PO (08:43)
[2025-04-03] MEDS: Magnesium Chloride 64 MG Delay Rel.Tablet 128 MG PO (08:44)
[2025-04-03] MEDS: Cholecalciferol (VIT D3) 25 MCG TABLET (1,000 UNITS) PO (08:45)
[2025-04-03] MEDS: buPROPion (XL) 150 MG TABLET.XL PO (08:45)
[2025-04-03 10:00] VITALS: PULSE 90; RESP 18; O2SAT 95
[2025-04-03] MEDS: Acetaminophen 500 MG Tablet 1000 MG PO ×2 (10:48→16:50)
[2025-04-03] MEDS: oxyCODONE 5 MG Tablet PO ×2 (12:12→16:47)
[2025-04-03] MEDS: hydrOXYzine 10 MG Tablet PO (17:48)
--- NOTE | 2025-04-04 01:35 | NURSING ---
Patient called for this nurse, stated that her colostomy bag was leaking. Seal broke around flange. Appliance changed, patient tolerated well.
[2025-04-04] MEDS: busPIRone 5 MG Tablet PO ×3 (05:56→22:44)
[2025-04-04] MEDS: Sodium Bicarbonate 650 MG Tablet PO ×3 (05:57→22:44)
[2025-04-04] MEDS: Levothyroxine 88 MCG Tablet PO (05:57)
[2025-04-04 06:04] VITALS: PULSE 70; RESP 18; O2SAT 98
[2025-04-04] MEDS: Fluticasone/Salmeterol 232-14 Inhaler 1 PUFF INHALATION ×2 (09:15→22:45)
[2025-04-04] MEDS: Umeclidinium Bromide Inhaler 1 PUFF INHALATION (09:15)
[2025-04-04] MEDS: Citalopram 40 MG TABLET PO (09:15)
[2025-04-04] MEDS: Potassium Chloride Oral Tablet 20 MEQ PO (09:16)
[2025-04-04] MEDS: Cholecalciferol (VIT D3) 25 MCG TABLET (1,000 UNITS) PO (09:16)
[2025-04-04] MEDS: Magnesium Chloride 64 MG Delay Rel.Tablet 128 MG PO (09:16)
[2025-04-04] MEDS: buPROPion (XL) 150 MG TABLET.XL PO (09:16)
[2025-04-04] MEDS: Menthol/Lanolin/Calamine/Znox 113 GM Tube 1 APPLIC TOPICAL ×2 (09:19→22:47)
[2025-04-04] MEDS: Petrolatum 33% Tube 1 APPLIC TOPICAL (09:19)
[2025-04-04 09:20] VITALS: BP 121/74; PULSE 90; RESP 16; TEMP 36.6; O2SAT 99
--- NOTE | 2025-04-04 10:07 | MDS.RN ---
Pain assessment for MDS complete.
--- NOTE | 2025-04-04 10:16 | CASEMGMT ---
Social Work SW completed BIMS () and PHQ-2 () for MDS assessment. Arely Marlow CHIEF GROWTH OFFICER BOAT TESTER
[2025-04-05] MEDS: Levothyroxine 88 MCG Tablet PO (05:33)
[2025-04-05] MEDS: busPIRone 5 MG Tablet PO ×2 (05:33→13:28)
[2025-04-05] MEDS: Sodium Bicarbonate 650 MG Tablet PO ×2 (05:34→13:28)
[2025-04-05 05:37] VITALS: PULSE 72; RESP 17
[2025-04-05] MEDS: Menthol/Lanolin/Calamine/Znox 113 GM Tube 1 APPLIC TOPICAL (09:23)
[2025-04-05] MEDS: Umeclidinium Bromide Inhaler 1 PUFF INHALATION (09:25)
[2025-04-05] MEDS: Petrolatum 33% Tube 1 APPLIC TOPICAL (09:25)
[2025-04-05] MEDS: Fluticasone/Salmeterol 232-14 Inhaler 1 PUFF INHALATION (09:25)
[2025-04-05] MEDS: Potassium Chloride Oral Tablet 20 MEQ PO (09:26)
[2025-04-05] MEDS: Magnesium Chloride 64 MG Delay Rel.Tablet 128 MG PO (09:26)
[2025-04-05] MEDS: Cholecalciferol (VIT D3) 25 MCG TABLET (1,000 UNITS) PO (09:28)
[2025-04-05] MEDS: buPROPion (XL) 150 MG TABLET.XL PO (09:29)
[2025-04-05] MEDS: Citalopram 40 MG TABLET PO (09:29)
[2025-04-05 14:35] VITALS: BP 128/74; PULSE 72; RESP 17; TEMP 37; O2SAT 97
== END 2025-04-05 15:39 | disposition home health service (06) | DRG 949 ==
PROVIDERS: Admitting Provider Family Medicine Geriatric Medicine; PCP Family Medicine Geriatric Medicine; Referring Provider Family Medicine Geriatric Medicine; Visit Provider Family Medicine Geriatric Medicine
DX: Z48.816 Encounter for surgical aftercare following surgery on the genitourinary system (principal); J18.9 Pneumonia, unspecified organism; I82.402 Acute embolism and thrombosis of unspecified deep veins of left lower extremity; E87.20 Acidosis, unspecified; J44.0 Chronic obstructive pulmonary disease with (acute) lower respiratory infection; D62 Acute posthemorrhagic anemia; J44.1 Chronic obstructive pulmonary disease with (acute) exacerbation; N20.1 Calculus of ureter; N39.0 Urinary tract infection, site not specified; N18.32 Chronic kidney disease, stage 3b; E03.9 Hypothyroidism, unspecified; F32.9 Major depressive disorder, single episode, unspecified; Z93.3 Colostomy status; E55.9 Vitamin D deficiency, unspecified; E53.8 Deficiency of other specified B group vitamins; E87.6 Hypokalemia; F41.9 Anxiety disorder, unspecified; L29.9 Pruritus, unspecified; Z79.890 Hormone replacement therapy; Z79.51 Long term (current) use of inhaled steroids; Z87.891 Personal history of nicotine dependence; Z79.899 Other long term (current) drug therapy; S32.402D Unspecified fracture of left acetabulum, subsequent encounter for fracture with routine healing; X58.XXXD Exposure to other specified factors, subsequent encounter; R91.8 Other nonspecific abnormal finding of lung field; R31.0 Gross hematuria
CPT/HCPCS: 36415; 80048; 85025; 97110; 97116; 97162; 97166; 97530; 97535; 97802; A4216; J3420

== ENCOUNTER → 2025-04-09 | Outpatient (CLI) | payer MEDICARE, OTHER, SELFPAY ==
[2025-04-09 12:25] LABS: Absolute Lymphocyte Count 2.39 X10^3/uL (0.83-4.51); Absolute Neutrophil Count 7.4 X10^3/uL (2.0-7.7); Basophil# 0.03 X10^3/uL; Basophil% 0.3 % (0-1); Eosinophil# 0.28 X10^3/uL; Eosinophils% 2.6 % (0-5); Hematocrit 38.8 % (37-47); Lymphocyte # 2.39 X10^3/ul (0.83-4.51); Lymphocyte % 22.2 % (19-41); Mean Corp Hgb Conc 30.9 g/dL (32-36); Mean Corpuscular Hgb 28.9 pg (27.0-32.0); Mean Corpuscular Volume 93.5 fL (81-99); Mean Platelet Vol. 9.4 fl (6.2-12.0); Monocyte# 0.58 X10^3/uL; Monocyte% 5.4 % (0-10); NRBC Flagged by Analyzer 0 % (0-5); Neutrophil # 7.42 X10^3/uL (2.7-7.7); Platelet Count 241 K/mm3 (150-450); Red Blood Count 4.15 M/mm3 (4.2-5.4); White Blood Count 10.8 K/mm3 (4.4-11.0)
[2025-04-09 13:01] LABS: ALB/GLOB Ratio 1.2 RATIO (0.9-2.4); AST(SGOT) 33 U/L (<=31); Alanine Aminotransfer ALT/SGPT 21 U/L (<=34); Albumin, Serum 3.9 g/dL (3.4-4.8); Alkaline Phosphatase 91 U/L (35-104); Anion Gap 12 (5-15); BUN 20 mg/dL (4-19); BUN/Creat Ratio 15.6 RATIO (10-20); Calcium,Total 9.6 mg/dL (7.6-11.0); Carbon Dioxide 18.5 mmol/L (21.0-32.0); Chloride 107 mmol/L (98-108); Creatinine, Serum 1.31 mg/dL (0.70-1.20); EST Glomerular Filtration Rate 41 (>60); Globulin 3.4 g/dL (2.2-4.2); Glucose 79 mg/dL (70-99); LDH 216 U/L (84-246); Potassium 4.4 mmol/L (3.3-5.1); Protein, Total 7.3 g/dL (5.9-8.4); Sodium Level 138 mmol/L (133-145); Total Bilirubin 0.32 mg/dL (0.00-1.30)
== END | disposition home or self-care (01) ==
LOC: LAB 11:19
PROVIDERS: Internal Medicine Medical Oncology; PCP Family Medicine Geriatric Medicine; Referring Provider Family Medicine Geriatric Medicine; Visit Provider Family Medicine Geriatric Medicine
DX: J18.9 Pneumonia, unspecified organism (principal); Z85.048 Personal history of other malignant neoplasm of rectum, rectosigmoid junction, and anus
CPT/HCPCS: 80053; 83615; 85025

== ENCOUNTER → 2025-04-21 | Outpatient (CLI) | payer MEDICARE, OTHER, SELFPAY ==
[2025-04-21 11:23] LABS: Absolute Lymphocyte Count 2.51 X10^3/uL (0.83-4.51); Absolute Neutrophil Count 5.6 X10^3/uL (2.0-7.7); Basophil# 0.01 X10^3/uL; Basophil% 0.1 % (0-1); Eosinophil# 0.23 X10^3/uL; Eosinophils% 2.6 % (0-5); Hematocrit 38.1 % (37-47); Hemoglobin 11.8 g/dL (12.0-15.0); Lymphocyte # 2.51 X10^3/ul (0.83-4.51); Mean Corpuscular Volume 93.6 fL (81-99); Mean Platelet Vol. 9.4 fl (6.2-12.0); Monocyte# 0.57 X10^3/uL; Monocyte% 6.4 % (0-10); NRBC Flagged by Analyzer 0 % (0-5); Neutrophil # 5.61 X10^3/uL (2.7-7.7); Neutrophil % 62.6 % (47-70); Platelet Count 228 K/mm3 (150-450); RBC Distribution Width CV 15.3 % (11.6-14.6); RBC Distribution Width SD 52.9 fl (35.1-43.9); Red Blood Count 4.07 M/mm3 (4.2-5.4)
[2025-04-21 11:47] LABS: Protein, Urine (Random) 31.7 mg/dL (0.0-12.0)
[2025-04-22 15:56] LABS: ALB/GLOB Ratio 1.2 RATIO (0.9-2.4); AST(SGOT) 38 U/L (<=31); Alanine Aminotransfer ALT/SGPT 30 U/L (<=34); Alkaline Phosphatase 96 U/L (35-104); Anion Gap 10 (5-15); BUN 15 mg/dL (4-19); BUN/Creat Ratio 12.9 RATIO (10-20); Calcium,Total 9.9 mg/dL (7.6-11.0); Carbon Dioxide 18.6 mmol/L (21.0-32.0); Chloride 110 mmol/L (98-108); Creatinine, Serum 1.17 mg/dL (0.70-1.20); EST Glomerular Filtration Rate 47 (>60); Globulin 3.2 g/dL (2.2-4.2); Glucose 86 mg/dL (70-99); Potassium 4.9 mmol/L (3.3-5.1); Protein, Total 7.2 g/dL (5.9-8.4); Sodium Level 139 mmol/L (133-145); Total Bilirubin 0.36 mg/dL (0.00-1.30)
== END | disposition home or self-care (01) ==
LOC: LAB 10:25
PROVIDERS: PCP Family Medicine Geriatric Medicine; Referring Provider Family Medicine Geriatric Medicine; Visit Provider Family Medicine Geriatric Medicine
DX: M79.604 Pain in right leg (principal)
CPT/HCPCS: 36415; 80053; 84156; 84443; 85025

== ENCOUNTER 2025-05-08 12:04 | Emergency (ER) | payer MEDICARE, OTHER, SELFPAY ==
[2025-05-08 12:04] VITALS: BP 131/64; PULSE 76; RESP 14; TEMP 36.6; O2SAT 98
[2025-05-08 12:22] VITALS: BMI 49.2
--- NOTE | 2025-05-08 13:38 | VDLE_ITS ---
Reason For Study Reason For Study: BIlateral leg swelling RIGHT LEFT GSV is normal. GSV is normal. CFV is compressible, spontaneous, phasic, competent CFV is compressible, spontaneous, phasic, competent, and demonstrates normal augmentation. and demonstrates normal augmentation. FV is compressible, spontaneous, phasic, competent FV is compressible, spontaneous, phasic, competent and demonstrates normal augmentation. and demonstrates normal augmentation. POP V is compressible, spontaneous, phasic, competent POP V is compressible, spontaneous, phasic, competent and demonstrates normal augmentation. and demonstrates normal augmentation. T/P Trunk is compressible. T/P Trunk is compressible. PTV is compressible. PTV is compressible. RT PerV is compressible. LT PerV is compressible. Procedure GastrocV is partially compressible, compared to This is a venous duplex using B-mode, color flow and 03/10/2025. spectral Doppler. Exam performed portable in ED. A preliminary report was called and/or faxed to Dr. Duncan. 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 Deep veins of the right lower extremity are patent and compressible segmentally . There is no evidence of right lower extremity deep vein thrombosis. The bilateral great saphenous veins appear rollins nt and compressible segmentally. Ordering Physician: Cholo Duncan Referring Physician: Elliot Kang Chi Performed By: Geni De Los Santos RVT
[2025-05-08 14:04] VITALS: BP 136/75; PULSE 88; RESP 15; O2SAT 99
[2025-05-08 14:23] LABS: Hematocrit 34.2 % (37-47); Hemoglobin 11.0 g/dL (12.0-15.0); Immature Granulocytes Count 0.020 X10^3/uL (0.0-0.0); Mean Corp Hgb Conc 32.2 g/dL (32-36); Mean Corpuscular Volume 90.5 fL (81-99); Mean Platelet Vol. 9.0 fl (6.2-12.0); NRBC Flagged by Analyzer 0 % (0-5); Platelet Count 174 K/mm3 (150-450); RBC Distribution Width CV 14.1 % (11.6-14.6); RBC Distribution Width SD 46.9 fl (35.1-43.9); Red Blood Count 3.78 M/mm3 (4.2-5.4); White Blood Count 7.0 K/mm3 (4.4-11.0)
[2025-05-08 15:10] LABS: AST(SGOT) 41 U/L (<=31); Alanine Aminotransfer ALT/SGPT 30 U/L (<=34); Albumin, Serum 3.5 g/dL (3.4-4.8); Alkaline Phosphatase 89 U/L (35-104); Anion Gap 9 (5-15); BUN 17 mg/dL (4-19); BUN/Creat Ratio 16.1 RATIO (10-20); Calcium,Total 9.1 mg/dL (7.6-11.0); Carbon Dioxide 17.0 mmol/L (21.0-32.0); Chloride 112 mmol/L (98-108); Estimated Creatinine Clearance 52.10 ml/min (50-250); Globulin 3.0 g/dL (2.2-4.2); Glucose 87 mg/dL (70-99); Potassium 4.9 mmol/L (3.3-5.1)
[2025-05-08 15:31] LABS: Mucous, Urine 0 SEEN /hpf (<or=2+)
--- NOTE | 2025-05-08 15:43 | ED.VIS.LOWEX ---
HPI History of Present Illness Chief Complaint: Lower Extremity Injury Informant: patient and family Narrative Narrative: Patient presenting with edema in her legs has been present for about a month or so since she was admitted to TCU here, swelling has been persistent and was bad this morning but she states now somehow the swelling is about on, but last night and this morning she noticed some bruises in the back of her right leg and thigh that are new, she denies any injury or known etiology, and when they called the doctor's office about this they were advised to come here to the ER to get tested for blood clots. She states he feels well otherwise except for intermittent dizziness which has been going on for months or a year or so, has been having it again for the last 3 days, she uses a finger motion to describe spinning but then states that it is lightheaded that she feels. She cannot tell me if there are any triggers for this or not, and she can also not tell me if moving her head or change positions or standing up changes any of the dizziness at all. She denies any associated nausea or vomiting or tinnitus right now. [facility] Medical History Hip fracture Gross hematuria On home O2 Community acquired pneumonia Hematuria UTI (urinary tract infection) Dyspnea Ureteral stent present Kidney stone Hypothyroidism Depression 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 calculus emts current use of immunosuppressive drug Crohn's disease Diarrhea Diarrhea Wears hearing aid Wears dentures Cancer Anxiety Thyroid disease Walker as ambulation aid Arthritis Easy bruising TIA (transient ischemic attack) Former smoker COPD (chronic obstructive pulmonary disease) Shortness of breath on exertion History of pain when walking History of echocardiogram History of stress test History of fracture of patella Stage 3b chronic kidney disease (CKD) Osteoporosis Urinary retention Rectal cancer Hydronephrosis Lung cancer Rectal cancer Decreased appetite Abdominal bloating COPD (chronic obstructive pulmonary disease) TIA (transient ischemic attack) Nicotine abuse Depression Anxiety Hypothyroidism COPD exacerbation Chronic bronchitis 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 calculus Hydronephrosis, right Filling defect on imaging study History of rectal cancer Home Medications ?Medication ?Instructions ?Recorded ?Last Taken ?Type bupropion HCl 150 mg 24 hr tablet, 150 mg PO QAM quit smoking 11/28/18 03/18/25 History extended release (Wellbutrin XL) citalopram 40 mg tablet 40 mg PO DAILY Anxiety 04/24/19 03/18/25 History cholecalciferol (vitamin D3) 25 25 mcg PO DAILY Supplement 10/09/21 03/03/25 History mcg (1,000 unit) capsule (Vitamin D3) levothyroxine 88 mcg tablet 88 mcg PO DAILY thyroid 12/14/23 03/18/25 History potassium chloride 20 mEq 20 meq PO DAILY supplement 12/21/24 03/18/25 History tablet,extended release sodium bicarbonate 650 mg tablet 650 mg PO TID supplement 01/06/25 03/18/25 History ustekinumab 90 mg/mL subcutaneous 90 mg subcut Q56D unknown 01/31/25 01/30/25 History syringe (Stelara) magnesium oxide 400 mg (241.3 mg 400 mg PO DAILY supplement 02/20/25 03/18/25 History magnesium) tablet buspirone 5 mg tablet 5 mg PO TID 30 days #90 tabs 04/01/25 Unknown Rx cyanocobalamin (vitamin B-12) 1,000 mcg IM Q30D #0 mL 04/01/25 Unknown Rx 1,000 mcg/mL injection solution umeclidinium 62.5 mcg/actuation 1 inh inhalation QDAY 04/23/25 Unknown History blister powder for inhalation (Incruse Ellipta) Allergy/AdvReac Type Severity Reaction Status Date / Time levofloxacin Allergy Mild Rash Verified 05/08/25 12:05 ciprofloxacin HCl (From Allergy Rash Verified 05/08/25 12:05 Cipro) Penicillins Allergy Hives Verified 05/08/25 12:05 codeine AdvReac makes her Verified 05/08/25 12:05 feel weird magnesium citrate AdvReac Nausea Verified 05/08/25 12:05 NSAIDS (Non-Steroidal AdvReac kidney Verified 05/08/25 12:05 Anti-Inflamma damage r/t long-term usage advised not to use Family History Father Heart disease Mother Heart disease Sister Heart disease Diabetes Other Crohn's disease Surgical History S/P lobectomy of lung S/P ureteral stent placement History of cystoscopy History of colonoscopy (~10/2019) History of colostomy History of cholecystectomy History of bowel resection History of hysterectomy History of delivery Social History household members: none Smoking Status: Former smoker Tobacco: How many years used: 53 how long ago did patient quit smoking: Quit 2-5 years prior. second hand exposure: No alcohol intake: never substance use type: does not use caffeine: No what type of physical activity do you participate in: none ROS ROS ED Constitutional Constitutional ED: Denies chills or fever(s) Eyes Eyes: Denies change in vision or diplopia ENT ENT ED: Reports as per HPI and dizziness; Denies rhinorrhea, sore throat or tinnitus Cardiovascular Cardiovascular: Reports leg edema, lightheadedness and other Details: no near-syncope ; Denies chest pain, palpitations or syncope Respiratory/Chest Respiratory/Chest: Denies cough or dyspnea Gastrointestinal Gastrointestinal: Denies abdominal pain, diarrhea, nausea or vomiting Genitourinary Genitourinary ED: Denies dysuria or hematuria Musculoskeletal Musculoskeletal: Denies back pain or neck pain Integumentary Denies abscess or rash Neurologic Neurologic: Denies headache(s), paresthesias or weakness Psychiatric Psychiatric: Denies anxiety or suicidal thoughts Hematologic/Lymphatic Hematologic/Lymphatic: Reports easy bleeding and easy bruising EXAM Physical Exam Const Vital Signs: 05/08/25 12:04 05/08/25 14:04 Temperature 98 F Temperature Source Temporal Pulse Rate 76 88 Respiratory Rate 14 15 Blood Pressure 131/64 H 136/75 H Blood Pressure Mean 86 95 Pulse Ox 98 99 Oxygen Delivery Method Room Air Room Air Positive well nourished and well developed General Appearance ED: well developed and NAD HEENT Reports moist mucous membranes normocephalic and atraumatic Eyes PERRL and EOMs intact bilaterally Eyes Narrative: No direction changing nystagmus or vertical/rotatory nystagmus Neck full ROM and supple Resp normal respiratory effort and clear to auscultation bilaterally Cardio regular rate and regular rhythm GI non-tender and non-distended Auscultation: normoactive bowel sounds Palpation: soft Back/Spine no CVA tenderness General Back: other FROM Extremity normal to inspection Extremity Narrative: a couple of small nonraised ecchymoses posterior aspect medial distal right thigh, nontender. No petechia or purpura. There are other ecchymoses on both of her arms/forearms. No calf tenderness. General Extremety ED: Yes edema; Negative for pulses abnormal or tenderness General Extremity: edema bilateral lower extremity Details: mild (Ankles only); Negative for pulses abnormal Neuro oriented x3, CN's II-XII intact bilaterally and no sensory deficits noted Sensorium / Orientation: awake and alert Motor Exam: strength 5/5 throughout Skin no rashes or lesions noted and no wounds MDM MDM MDM Narrative Medical decision making narrative: Patient is concerned about a DVT after calling the office. She had a DVT in her left lower leg earlier this year, she has been anticoagulated a couple different times and states that she ended up with hematuria followed by a procedure by urology because of the hematuria, and they placed an IVC filter and now she cannot be anticoagulated anymore because of all that. Given that, and the appearance of her legs which is fairly unremarkable with a couple of ecchymoses on the posterior aspect of her distal right thigh which is inconsistent with an acute DVT and more consistent of a small bruise, I reassured her that even if she has an acute DVT, it would be unlikely that it would change the treatment from supportive care. We did do a venous Doppler ultrasound, it shows chronic DVT in the left calf identical to that seen earlier in the year, and nothing acute. Blood counts look good, hemoglobin is 11.0 which is similar to prior, and the rest of her labs are normal with no sign of acute dehydration. In talking more about her dizziness which they are concerned about, it has been going on for months and they have been to ENT and diagnosed with some form of vertigo, I advised him to follow-up I do not think it is central in etiology. She is probably having swelling in her legs that goes away with rest and elevation due to being laid up in TCU recently. I offered a diuretic she declines, I advised that she can raise her legs, use wraps, and walk more. Follow-up advised. Lab Data Attestation: I reviewed the patient's lab results. Labs: Laboratory Results - last 24 hr 05/08/25 14:15 WBC 7.0 RBC 3.78 L Hgb 11.0 L Hct 34.2 L MCV 90.5 MCH 29.1 MCHC 32.2 RDW Std Deviation 46.9 H RDW Coeff of Osmar 14.1 Plt Count 174 MPV 9.0 Immature Gran % (Auto) 0.300 Neut % (Auto) 58.6 Lymph % (Auto) 31.3 Milam % (Auto) 7.1 Eos % (Auto) 2.6 Baso % (Auto) 0.1 Absolute Neuts (auto) 4.1 Absolute Lymphs (auto) 2.20 Nucleated RBC % 0 Sodium 138 Potassium 4.9 Chloride 112 H Carbon Dioxide 17.0 L Anion Gap 9 BUN 17 Creatinine 1.05 Estim Creat Clear Calc 52.10 Est GFR (MDRD) Non-Af 54 L BUN/Creatinine Ratio 16.1 Glucose 87 Calcium 9.1 Total Bilirubin 0.25 AST 41 H ALT 30 Alkaline Phosphatase 89 Total Protein 6.5 Albumin 3.5 Globulin 3.0 Albumin/Globulin Ratio 1.2 Radiography Diagnostic Testing: Clinical Impression(s) from Imaging Studies Venous Doppler Study 05/08/25 13:38 Interpretation Summary Chronic deep vein thrombosis noted in the left gastrocnemius vein. Deep veins of the right lower extremity are patent and compressible segmentally. There is no evidence of right lower extremity deep vein thrombosis. The bilateral great saphenous veins appear patent and compressible segmentally. Ordering Physician: Cholo Duncan Referring Physician: Elliot Kang Chi Performed By: Geni De Los Santos RVT Discharge Plan Triage Chief Complaint: Lower Extremity Injury ED Provider: Cholo Duncan Dx/Rx/DC Orders Clinical Impression: Bilateral lower extremity edema, Spontaneous ecchymoses, Dizziness Instructions: ED Peripheral Edema, Bilateral Prescriptions: No Action bupropion HCl [Wellbutrin XL] 150 mg tablet extended release 24 hr 150 mg PO QAM Incruse Ellipta 62.5 mcg/actuation blister with device 1 inh inhalation QDAY citalopram 40 MG tablet 40 mg PO DAILY cholecalciferol (vitamin D3) [Vitamin D3] 25 mcg (1,000 unit) Capsule 25 mcg PO DAILY levothyroxine 88 mcg tablet 88 mcg PO DAILY potassium chloride 20 mEq tablet extended release 20 meq PO DAILY sodium bicarbonate 650 mg tablet 650 mg PO TID Stelara 90 mg/mL syringe 90 mg subcut Q56D magnesium oxide 400 mg (241.3 mg magnesium) tablet 400 mg PO DAILY buspirone 5 mg Tablet 5 mg PO TID 30 Days Qty: 90 0RF cyanocobalamin (vitamin B-12) 1,000 mcg/mL Solution 1,000 mcg IM Q30D Qty: 0 0RF Primary Care Provider: Elliot Kang Chi Referrals: Elliot Kang Chi, MD [Primary Care Provider] - As soon as possible Print Language: Indonesian Disposition Disposition: Home, Self Care
[2025-05-08 16:05] VITALS: BP 135/67; PULSE 88; RESP 16; TEMP 36.7; O2SAT 99
[2025-05-08 17:09] LABS: Color, Urine Straw (Yellow); Glucose, Dipstick Normal (Normal); Ketone-Dipstick Negative (Negative); Leukocyte Esterase-Dipstick 500 /ul (Negative); Nitrite-Dipstick Negative (Negative); Occult Blood-Urine 25 /ul (Negative); Protein-Dipstick 30 mg/dl (Negative); Specific Gravity, Urine 1.010 (1.002-1.030); Urine Bilirubin Dipstick Negative (Negative)
[2025-05-08 17:52] LABS: Red Blood Cells-Urine 10-25 SEEN /hpf (0-5); Squamous Epithelial Cells - UA 0-5 SEEN /hpf (5-10)
== END 2025-05-08 16:05 | disposition home or self-care (01) ==
PROVIDERS: Emergency Provider Emergency Medicine; PCP Family Medicine Geriatric Medicine; Visit Provider Emergency Medicine
DX: R60.0 Localized edema (principal); K50.90 Crohn's disease, unspecified, without complications; J44.9 Chronic obstructive pulmonary disease, unspecified; I82.562 Chronic embolism and thrombosis of left calf muscular vein; N18.32 Chronic kidney disease, stage 3b; R23.3 Spontaneous ecchymoses; R31.9 Hematuria, unspecified; R42 Dizziness and giddiness; E03.9 Hypothyroidism, unspecified; Z79.890 Hormone replacement therapy; Z79.899 Other long term (current) drug therapy; Z87.891 Personal history of nicotine dependence
CPT/HCPCS: 36415; 80053; 81001; 85025; 93970; 99282; A4216

== ENCOUNTER → 2025-05-19 | Outpatient (CLI) | payer MEDICARE, OTHER, SELFPAY ==
[2025-05-19 12:05] LABS: Hematocrit 39.9 % (37-47); Hemoglobin 12.7 g/dL (12.0-15.0); Immature Granulocytes Count 0.010 X10^3/uL (0.0-0.0); Mean Corp Hgb Conc 31.8 g/dL (32-36); Mean Corpuscular Volume 92.6 fL (81-99); Mean Platelet Vol. 9.3 fl (6.2-12.0); NRBC Flagged by Analyzer 0 % (0-5); Platelet Count 201 K/mm3 (150-450); RBC Distribution Width CV 13.3 % (11.6-14.6); RBC Distribution Width SD 45.6 fl (35.1-43.9); Red Blood Count 4.31 M/mm3 (4.2-5.4); White Blood Count 7.5 K/mm3 (4.4-11.0)
[2025-05-19 13:20] LABS: Ferritin 34 ng/mL (22-378); Iron 81 ug/dL (50-170); Iron Binding Capacity,Unsat 405 ug/dL (228-428)
[2025-05-19 13:22] LABS: Iron Binding Capacity,Total 486 ug/dL (250-450)
[2025-05-19 19:40] LABS: Xtra Tube Kwok EXTRA TUBE
== END | disposition home or self-care (01) ==
LOC: POLAB3 11:38
PROVIDERS: PCP Family Medicine Geriatric Medicine; Visit Provider Family Medicine Geriatric Medicine
DX: D64.9 Anemia, unspecified (principal)
CPT/HCPCS: 36415; 82728; 83540; 83550; 85025

== ENCOUNTER → 2025-05-21 | Outpatient (CLI) | payer MEDICARE, OTHER, SELFPAY ==
--- NOTE | 2025-05-21 14:02 | NEURO ---
NCS and/or EMG Patient Report Ordering Doctor: Elliot Kang Chi DATE OF SERVICE: 05/21/25 Gracie presents for electrodiagnostic testing of the lower limbs. She reports numbness and tingling in both legs primarily in the feet and radiating to the knees. Electrodiagnostic findings: Left peroneal motor nerve demonstrates normal distal latency with reduced amplitude and normal conduction velocity. Right peroneal motor response could not be obtained. Tibial motor responses within normal limits bilaterally. Normal tibial F-wave bilaterally. Normal left peroneal F?waves. H/reflex borderline prolonged bilaterally. Sensory responses were not obtainable in the sural and superficial peroneal distribution. Needle EMG testing was performed in the lower limbs. 1 plus complex repetitive discharges noted in the left peroneus longus. Electrodiagnostic assessment: This is an abnormal study. 1. 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 2. No electrodiagnostic evidence is noted for lumbosacral radiculopathy. Multi Select Codes Neurology Neurology Interp Codes: 36802-98 Musc test done w/n test comp (interp) (2) and 33736-29 Nrv cndj test 9-10 studies (interp)
--- NOTE | 2025-05-21 14:02 | NEURO ---
NCS and/or EMG Patient Report Ordering Doctor: Elliot Kang Chi DATE OF SERVICE: 05/21/25 Gracie presents for electrodiagnostic testing of the lower limbs. She reports numbness and tingling in both legs primarily in the feet and radiating to the knees. Electrodiagnostic findings: Left peroneal motor nerve demonstrates normal distal latency with reduced amplitude and normal conduction velocity. Right peroneal motor response could not be obtained. Tibial motor responses within normal limits bilaterally. Normal tibial F-wave bilaterally. Normal left peroneal F?waves. H/reflex borderline prolonged bilaterally. Sensory responses were not obtainable in the sural and superficial peroneal distribution. Needle EMG testing was performed in the lower limbs. 1 plus complex repetitive discharges noted in the left peroneus longus. Electrodiagnostic assessment: This is an abnormal study. 1. 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 2. No electrodiagnostic evidence is noted for lumbosacral radiculopathy. Multi Select Codes Neurology Neurology Interp Codes: 13594-86 Musc test done w/n test comp (interp) (2) and 44145-27 Nrv cndj test 9-10 studies (interp)
== END | disposition home or self-care (01) ==
LOC: PSN 12:19
PROVIDERS: PCP Family Medicine Geriatric Medicine; Referring Provider Family Medicine Geriatric Medicine; Visit Provider Family Medicine Geriatric Medicine
DX: M79.604 Pain in right leg (principal); G62.9 Polyneuropathy, unspecified
CPT/HCPCS: 95886; 95911

== ENCOUNTER → 2025-06-24 | Outpatient (CLI) | payer MEDICARE, OTHER, SELFPAY | END | disposition home or self-care (01) | LOC: SL 11:41 | PROVIDERS: PCP Family Medicine Geriatric Medicine; Visit Provider Nurse Practitioner Acute Care | DX: J96.11 Chronic respiratory failure with hypoxia (principal) | CPT/HCPCS: 94762 ==

== ENCOUNTER → 2025-07-30 | Outpatient (CLI) | payer MEDICARE, OTHER, SELFPAY ==
[2025-07-30 11:59] LABS: CRP 48.70 mg/L (0.0-3.0)
== END | disposition home or self-care (01) ==
LOC: LAB 10:07
PROVIDERS: PCP Family Medicine Geriatric Medicine; Referring Provider Internal Medicine Gastroenterology; Visit Provider Internal Medicine Gastroenterology
DX: K50.018 Crohn's disease of small intestine with other complication (principal)
CPT/HCPCS: 36415; 85652; 86140

== ENCOUNTER → 2025-08-15 | Outpatient (CLI) | payer MEDICARE, OTHER, SELFPAY | END | disposition home or self-care (01) | LOC: CT 14:19 | PROVIDERS: PCP Family Medicine Geriatric Medicine; Referring Provider Urology; Visit Provider Urology | DX: N20.0 Calculus of kidney (principal); N39.0 Urinary tract infection, site not specified | CPT/HCPCS: 74176 ==

== ENCOUNTER → 2025-08-18 | Outpatient (CLI) | payer MEDICARE, OTHER, SELFPAY ==
[2025-08-18 09:40] LABS: Hematocrit 39.5 % (37-47); Hemoglobin 12.1 g/dL (12.0-15.0); Immature Granulocytes Count 0.050 X10^3/uL (0.0-0.0); Mean Corp Hgb Conc 30.6 g/dL (32-36); Mean Corpuscular Volume 87.6 fL (81-99); Mean Platelet Vol. 9.0 fl (6.2-12.0); NRBC Flagged by Analyzer 0 % (0-5); Platelet Count 310 K/mm3 (150-450); RBC Distribution Width CV 12.9 % (11.6-14.6); RBC Distribution Width SD 41.3 fl (35.1-43.9); Red Blood Count 4.51 M/mm3 (4.2-5.4); White Blood Count 10.5 K/mm3 (4.4-11.0)
[2025-08-18 11:03] LABS: AST(SGOT) 29 U/L (<=31); Alanine Aminotransfer ALT/SGPT 21 U/L (<=34); Albumin, Serum 3.9 g/dL (3.4-4.8); Alkaline Phosphatase 122 U/L (35-104); Anion Gap 16 (5-15); BUN 15 mg/dL (4-19); BUN/Creat Ratio 10.4 RATIO (10-20); Calcium,Total 9.3 mg/dL (7.6-11.0); Carbon Dioxide 18.9 mmol/L (21.0-32.0); Chloride 102 mmol/L (98-108); Globulin 4.1 g/dL (2.2-4.2); Glucose 76 mg/dL (70-99); Potassium 3.9 mmol/L (3.3-5.1); Vitamin D,25 Hydroxy 25.0 ng/mL (30-100)
== END | disposition home or self-care (01) ==
LOC: POLAB3 09:13
PROVIDERS: PCP Family Medicine Geriatric Medicine; Visit Provider Family Medicine Geriatric Medicine
DX: E55.9 Vitamin D deficiency, unspecified (principal); R53.83 Other fatigue
CPT/HCPCS: 36415; 80053; 82306; 84443; 85025

== ENCOUNTER → 2025-08-27 | Outpatient (CLI) | payer MEDICARE, OTHER, SELFPAY ==
[2025-08-27 13:21] LABS: Hematocrit 32.4 % (37-47); Hemoglobin 10.3 g/dL (12.0-15.0); Immature Granulocytes Count 0.030 X10^3/uL (0.0-0.0); Mean Corp Hgb Conc 31.8 g/dL (32-36); Mean Corpuscular Volume 85.5 fL (81-99); Mean Platelet Vol. 9.3 fl (6.2-12.0); NRBC Flagged by Analyzer 0 % (0-5); Platelet Count 281 K/mm3 (150-450); RBC Distribution Width CV 13.3 % (11.6-14.6); RBC Distribution Width SD 41.5 fl (35.1-43.9); Red Blood Count 3.79 M/mm3 (4.2-5.4); White Blood Count 8.5 K/mm3 (4.4-11.0)
[2025-08-27 13:39] LABS: Anion Gap 11 (5-15); BUN 18 mg/dL (4-19); BUN/Creat Ratio 15.2 RATIO (10-20); CRP 44.90 mg/L (0.0-3.0); Calcium,Total 9.6 mg/dL (7.6-11.0); Carbon Dioxide 20.1 mmol/L (21.0-32.0); Chloride 107 mmol/L (98-108); Glucose 78 mg/dL (70-99); Potassium 4.6 mmol/L (3.3-5.1)
[2025-08-27 20:28] LABS: Xtra Tube Kwok EXTRA TUBE
== END | disposition home or self-care (01) ==
LOC: POLAB3 12:28
PROVIDERS: PCP Family Medicine Geriatric Medicine; Visit Provider Family Medicine Geriatric Medicine
DX: R70.0 Elevated erythrocyte sedimentation rate (principal); R79.82 Elevated C-reactive protein (CRP); R53.83 Other fatigue; D64.9 Anemia, unspecified
CPT/HCPCS: 36415; 80048; 85025; 85652; 86140; 87040

== ENCOUNTER → 2025-09-05 | Outpatient (CLI) | payer MEDICARE, OTHER, SELFPAY ==
--- NOTE | 2025-09-05 11:18 | CT_ITS ---
PROCEDURE: CT/CTA Chest W/WO Contrast
== END | disposition home or self-care (01) ==
PROVIDERS: PCP Family Medicine Geriatric Medicine; Referring Provider Family Medicine Geriatric Medicine; Visit Provider Family Medicine Geriatric Medicine
DX: R04.2 Hemoptysis (principal); J20.9 Acute bronchitis, unspecified
CPT/HCPCS: 71275; 87070; 87205; Q9967

== ENCOUNTER → 2025-09-29 | Outpatient (CLI) | payer MEDICARE, OTHER, SELFPAY ==
[2025-09-29 15:55] LABS: Hematocrit 35.7 % (37-47); Hemoglobin 11.2 g/dL (12.0-15.0); Immature Granulocytes Count 0.040 X10^3/uL (0.0-0.0); Mean Corp Hgb Conc 31.4 g/dL (32-36); Mean Corpuscular Volume 86.0 fL (81-99); Mean Platelet Vol. 9.0 fl (6.2-12.0); NRBC Flagged by Analyzer 0 % (0-5); Platelet Count 266 K/mm3 (150-450); RBC Distribution Width CV 15.4 % (11.6-14.6); RBC Distribution Width SD 48.4 fl (35.1-43.9); Red Blood Count 4.15 M/mm3 (4.2-5.4); White Blood Count 8.7 K/mm3 (4.4-11.0)
--- NOTE | 2025-09-29 16:03 | RAD_ITS ---
PROCEDURE: CHEST PA AND LATERAL 09/29/2025 REASON FOR EXAM: WHEEZING TECHNIQUE: Procedure Code: RADCXR Modality: DX Procedure: CHEST PA AND LATERAL COMPARISON: March 03, 2025 FINDINGS: The lungs are adequately aerated bilaterally with improved appearance of the [id number]-right pleural effusions. Coarse pulmonary markings bilaterally. Atheromatous changes of the aorta without cardiomegaly. Postsurgical changes to the left hemithorax. Degenerative changes of the shoulders and spine. An IVC filter is in place. RAD/Chest PA and Lateral IMPRESSION: Findings suggesting chronic and postsurgical appearance of the lungs bilaterall y without acute cardiopulmonary abnormality. If concerns persist, a CT could be performed. Reading Location: [id number]
--- NOTE | 2025-09-29 16:03 | RAD_ITS ---
PROCEDURE: ABDOMEN SINGLE VIEW 09/29/2025 REASON FOR EXAM: APPETITE LOSS TECHNIQUE: Procedure Code: RADABD Modality: DX Procedure: Two-view supine abdomen COMPARISON: Chest x-ray of 09/29/2025. RAD/Abdomen Single View IMPRESSION: Inferior vena cava filter unchanged in position. Gas is seen within nondilated large bowel loops. No small bowel dilation is ev ident. No mass or mass effect is seen. Degenerative changes of the lumbar spine are also noted. Moderate arterial calcification is noted as well Reading Location: [address]
[2025-09-29 23:37] LABS: Xtra Tube Kwok EXTRA TUBE
== END | disposition home or self-care (01) ==
LOC: LAB.FUTURE 15:36 → RAD 15:54
PROVIDERS: PCP Family Medicine Geriatric Medicine; Referring Provider Family Medicine Geriatric Medicine; Visit Provider Family Medicine Geriatric Medicine
DX: E03.9 Hypothyroidism, unspecified (principal); R53.83 Other fatigue; R06.2 Wheezing
CPT/HCPCS: 71046; 74018; 84443; 85025; 87631

== ENCOUNTER → 2025-10-06 | Outpatient (CLI) | payer MEDICARE, OTHER, SELFPAY ==
--- NOTE | 2025-10-06 13:32 | CT_ITS ---
PROCEDURE: CHEST WITH CONTRAST 10/06/2025 REASON FOR EXAM: HX OF LUNG CA TECHNIQUE: Procedure Code: CTCHW Modality: CT Procedure: CHEST WITH CONTRAST Coronal and Sagittal reconstruction series were provided. CONTRAST: Isovue-300 VOLUME: 10 mL One or more dose reduction techniques were used (e.g., Automated exposure control, adjustment of the mA and/or kV according to patient size, use of iterative reconstruction technique). RADIATION DOSE SUMMARY: CTDlvol: 21 mGy DLP: 182 mGycm COMPARISON: September 05, 2025 FINDINGS: Hardware: None Lymph nodes: None appear enlarged Heart and Vasculature: Heart is normal size. No pericardial effusion. Coronary arteries are unremarkable. No evidence of acute or chronic pulmonary embolus. Lungs and Airways: Background emphysema is present. Some linear scarring is shown at both lung bases. The concomitant airspace opacity in the lower lobe on the left has improved but there is a curvilinear nodular density remaining above the diaphragm; adjacent ground-glass is seen anterior to the solid component. This nodular component is 2.2 x 1.3 x 0.8 cm on image 80 in the axial plane and image 199 in the sagittal plane. Pleura: No pleural effusion or pneumothorax. Upper Abdomen: Punctate calculi are shown involving both kidneys. Bones: Unremarkable CT/Chest WITH Contrast IMPRESSION: 1. No evidence of acute or chronic pulmonary embolus. 2. Emphysema 3. Scarring at the lung bases. Interval improvement in aeration/partial resol ution of airspace disease in the left lower lobe. Solid nodular component remains. This may represent neoplasia versus residual inflammation. Favor that the majority of this is inflammatory/infectious. As such, recommend interval continued treatment with repeat imaging in 3 months. If the abnormality persists or enlarges, additional imaging with PET scanning would be suggested. Reading Location: [id number]
== END | disposition home or self-care (01) ==
LOC: CT 13:01
PROVIDERS: PCP Family Medicine Geriatric Medicine; Referring Provider Internal Medicine Medical Oncology; Visit Provider Internal Medicine Medical Oncology
DX: Z85.118 Personal history of other malignant neoplasm of bronchus and lung (principal); Z85.048 Personal history of other malignant neoplasm of rectum, rectosigmoid junction, and anus
CPT/HCPCS: 71260; Q9967; A4216